=== PATIENT | female | born 1975 | race Caucasian/White ===

== ENCOUNTER 2022-12-05 12:21 | Outpatient (REF) | payer OTHER, MEDICARE, SELFPAY | END 2022-12-05 12:22 | disposition home or self-care (01) | LOC: LAB 12:21 | PROVIDERS: PCP Family Medicine; Visit Provider Family Medicine | DX: R30.0 Dysuria (principal) | CPT/HCPCS: 87086 ==

== ENCOUNTER 2023-02-19 08:26 | Outpatient (OUT) | payer OTHER, MEDICARE, SELFPAY ==
[2023-02-19 09:09] LABS: Estimated Average Glucose 169 mg/dL; Glycohemoglobin A1C 7.5 % (4.5-6.2)
== END 2023-02-19 08:27 | disposition home or self-care (01) ==
LOC: LAB 08:31
PROVIDERS: PCP Family Medicine
DX: E11.65 Type 2 diabetes mellitus with hyperglycemia (principal); Z79.4 Long term (current) use of insulin
CPT/HCPCS: 36415; 83036

== ENCOUNTER 2023-02-19 08:33 | Outpatient (OUT) | payer OTHER, MEDICARE, SELFPAY ==
[2023-02-19 09:29] LABS: Chol HDL Ratio 10.1; Cholesterol 242 mg/dL (<=200); HDL Cholesterol 24 mg/dL (40-60); Triglycerides 929 mg/dL (<=150); VLDL CHOLESTEROL 185.8 mg/dL
[2023-02-19 09:34] LABS: LDL Cholesterol Direct 127 mg/dL
== END 2023-02-19 08:34 | disposition home or self-care (01) ==
LOC: LAB 08:36
PROVIDERS: PCP Family Medicine; Visit Provider Internal Medicine Interventional Cardiology
DX: E11.65 Type 2 diabetes mellitus with hyperglycemia (principal); Z79.4 Long term (current) use of insulin; E78.2 Mixed hyperlipidemia
CPT/HCPCS: 36415; 80061; 83036; 83721

== ENCOUNTER 2023-02-26 19:56 | Outpatient (REF) | payer OTHER, MEDICARE, SELFPAY ==
[2023-03-03 16:07] LABS: Age Gdln ACOG Testing Note (.); HPV Aptima Negative (Negative); IGP, Aptima HPV, rfx 16/18,45 Note (.)
== END 2023-02-26 19:57 | disposition home or self-care (01) ==
LOC: LAB 19:56
PROVIDERS: PCP Family Medicine; Visit Provider Physician Assistant
DX: Z01.419 Encounter for gynecological examination (general) (routine) without abnormal findings (principal)
CPT/HCPCS: 87624; G0145

== ENCOUNTER 2023-06-22 06:30 | Outpatient (OUT) | payer OTHER, MEDICARE, SELFPAY ==
[2023-06-22 07:01] LABS: Basophils Absolute Auto 0.1 10^3/uL (0.0-0.1); Basophils Percent Auto 1.1 % (0.2-2.0); Eosinophils Absolute Auto 0.2 10^3/uL (0.0-0.7); Hematocrit 44.3 % (36.0-48.0); Immature Granulocytes Abs Auto 0.02 10^3/uL (0.00-0.03); Immature Granulocytes Pct Auto 0.3 % (0.0-0.5); Lymphocytes Absolute Auto 3.8 10^3/uL (1.2-3.8); Lymphocytes Percent Auto 47.7 % (20.5-60.0); Mean Corpuscular HGB Conc 31.6 g/dL (29.9-35.2); Mean Corpuscular Hemoglobin 29.5 pg (26.7-34.0); Mean Corpuscular Volume 93.5 fL (81.0-99.0); Mean Platelet Volume 10.6 fL (9.5-13.5); Monocytes Absolute Auto 0.9 10^3/uL (0.3-0.8); Monocytes Percent Auto 11.1 % (1.7-12.0); Neutrophils Absolute Auto 2.9 10^3/uL (1.4-6.5); Neutrophils Percent Auto 36.8 % (43.0-75.0); Platelet Count 380 10^3/uL (150-450); Red Blood Count 4.74 10^6/uL (4.20-5.40); Red Cell Distribution Width 14.4 % (11.0-15.0)
[2023-06-22 07:18] LABS: Microalbumin Urine Random <1.3 mg/dL (<=30.0)
[2023-06-22 07:20] LABS: Estimated Average Glucose 160 mg/dL; Glycohemoglobin A1C 7.2 % (4.5-6.2)
[2023-06-22 07:32] LABS: Alanine Aminotransferase 51 U/L (14-59); Albumin Globulin Ratio 1.1; Alkaline Phosphatase 58 U/L (46-116); Anion Gap 15.9; Aspartate Amino Transferase 33 U/L (15-37); BUN Creatinine Ratio 21.8; Bilirubin Total 0.3 mg/dL (0.2-1.0); Carbon Dioxide 28.7 mmol/L (21.0-32.0); Chloride 100 mmol/L (98-107); Chol HDL Ratio 6.9; Cholesterol 208 mg/dL (<=200); Estimated GFR (African America >60 (>=60); Estimated GFR (Non-African Ame >60 (>=60); Globulin 3.6 g/dL; Glucose 136 mg/dL (74-106); HDL Cholesterol 30 mg/dL (40-60); Potassium 3.6 mmol/L (3.5-5.1); Sodium 141 mmol/L (136-145); Total Protein 7.6 g/dL (6.4-8.2); Triglycerides 497 mg/dL (<=150); VLDL CHOLESTEROL 99.4 mg/dL
[2023-06-22 07:34] LABS: LDL Cholesterol Direct 114 mg/dL
== END 2023-06-22 06:31 | disposition home or self-care (01) ==
LOC: LAB 06:33
PROVIDERS: PCP Family Medicine; Visit Provider Family Medicine
DX: E78.2 Mixed hyperlipidemia (principal); I25.118 Atherosclerotic heart disease of native coronary artery with other forms of angina pectoris; E11.65 Type 2 diabetes mellitus with hyperglycemia; Z79.4 Long term (current) use of insulin
CPT/HCPCS: 36415; 80053; 80061; 82043; 83036; 83721; 85025

== ENCOUNTER 2023-12-10 07:30 | Outpatient (OUT) | payer OTHER, MEDICARE, SELFPAY ==
--- OUTSIDE RECORDS SUMMARY | 2023-12-10 07:39 | XMS_ITS | CCD ---
Author Organization [facility] Care Team Providers Care Director Of Enterprise Strategy Name Role Phone CHONG CARRERO Admitting Unavailable LAZARAEREJOSH Suarez Primary Care Unavailable SELF, REFERRED Referring Unavailable GEE ORELLANA Attending Unavailable EBRAHEIM, BENJAMIN Admitting Unavailable EBRAHEIM, BENJAMIN Attending Unavailable JOSH OCHOA Referring Unavailable NADEREJOSH Suarez Primary Care Unavailable EBRAHEIM, BENJAMIN Admitting Unavailable EBRAHEIM, BENJAMIN Attending Unavailable JOSH OCHOA Referring Unavailable LAZARAEREJOSH Suarez Primary Care Unavailable EBRAHEIM, BENJAMIN Admitting Unavailable EBRAHEIM, BENJAMIN Attending Unavailable JOSH OCHOA Referring Unavailable LAZARAEREJOSH Suarez Primary Care Unavailable Josh Ochoa Primary Care Provider Eliezer MARTINEZ, Deja Unavailable [phone] Chanel Workman Unavailable Vianney Collins Unavailable Josh Ochoa Primary Care Provider Eliezer MARTINEZ Deja Unavailable MD Josh Ochoa Primary Care Provider MD Marie Elias Attending Provider Josh Ochoa Primary Care Provider Eliezer MARTINEZ, Deja Unavailable MD Josh Ochoa Primary Care Provider MD Lee Chowdary Attending Provider DR JOSH OCHOA Attending Unavailable GABRIELA, DR JOSH Oznua Admitting Unavailable LAZARAEREErick, DR JOSH zOuna Consulting Unavailable LAZARAEREErick, DR JOSH Ozuna Primary Care Unavailable JENNIFER, DR BARTOLOME Suarez Consulting Unavailable NADERER, DR JOSH Ozuna Primary Care Unavailable ADIA ., JACQUELYN Attending Unavailable ADIA ., JACQUELYN Admitting Unavailable ADIA ., JACQUELYN Consulting Unavailable NADERER, DR JOSH Ozuna Consulting Unavailable NADERER, DR JOSH Ozuna Primary Care Unavailable NADERER, DR JOSH Ozuna Attending Unavailable NADERER, DR JOSH Ozuna Admitting Unavailable NATHANIEL, MARIE Consulting Unavailable NATHANIEL, MARIE Attending Unavailable NATHANIEL, MARIE Admitting Unavailable NADERER, DR JOSH Ozuna Primary Care Unavailable JESSICA BOSTON Consulting Unavailable MARKER ., DR WEAVER Consulting Unavailable MARKER ., DR WEAVER Attending Unavailable MARKER ., DR WEAVER Admitting Unavailable NADERER, DR JOSH Ozuna Primary Care Unavailable CORKY PINTO Consulting Unavailable NADERER, DR JOSH Ozuna Primary Care Unavailable IDRIS, NAE Attending Unavailable IDRIS, NAE Admitting Unavailable WEST, DR AVINASH Milligan Consulting Unavailable NADERER, DR JOSH Ozuna Primary Care Unavailable NADERER, DR JOSH Ozuna Attending Unavailable NADERER, DR JOSH Ozuna Admitting Unavailable ZIEBER, DR BARTOLOME Suarez Consulting Unavailable NADERER, DR JOSH Ozuna Consulting Unavailable NADERER, DR JOSH Ozuna Consulting Unavailable NADERER, DR JOSH Ozuna Primary Care Unavailable NADERER, DR JOSH Ozuna Attending Unavailable NADERER, DR JOSH Ozuna Admitting Unavailable WEST, DR AVINASH Milligan Consulting Unavailable NADERER, DR JOSH Ozuna Primary Care Unavailable NADERER, DR JOSH Ozuna Attending Unavailable NADERER, DR JOSH Ozuna Admitting Unavailable NADERER, DR JOSH Ozuna Consulting Unavailable Nathaniel, Marie T Admitting Unavailable Naderer, Josh Primary Care Unavailable Nathaniel, Marie T Attending Unavailable Epi, Lee Admitting Unavailable Lee Chowdary Attending Unavailable Nadereerick, Josh Primary Care Unavailable Lee Chowdary Attending Unavailable Chowdary, Lee Admitting Unavailable Naderer, Josh Primary Care Unavailable Naderer Josh WARD Primary Care Provider JOSE FRANCISCO MARR Attending Unavailable IDRIS, NAE Attending Unavailable JOSE FRANCISCO MARR. Attending Unavailable IDRISNAE Mejia Referring Unavailable JULIANA SHANE Attending Unavailable IDRIS, NAE Attending Unavailable JOSE FRANCISCO MARR Attending Unavailable JOSE FRANCISCO MARR Attending Unavailable JULIANA SHANE Attending Unavailable Elmo Solano Attending Unavailable GABRIELA, JOSH Ozuna Primary Care Unavailable Elmo Solano Admitting Unavailable Elmo Solano Attending Unavailable Solano, Elmo L Admitting Unavailable NADERER, JOSH A Primary Care Unavailable Solano, Elmo L Attending Unavailable Solano, Elmo L Admitting Unavailable NADERER, JOSH A Primary Care Unavailable Solano, Elmo L Attending Unavailable Solano, Elmo L Admitting Unavailable NADERER, JOSH A Primary Care Unavailable Naderer, Josh A Primary Care Provider CARROLLR, JOSH A Primary Care Unavailable FROIMSON, KINGA Referring Unavailable FROIMSON, KINGA Attending Unavailable FROIMSON, KINGA Referring Unavailable FROIMSON, KINGA Attending Unavailable NADERER, JOSH A Primary Care Unavailable GERTRUDE CONNOLLY Attending Unavailab le JACKSON, DC L Attending Unavailable ARCE, OLU Bradley Attending Unavailable JACKSON, DC L Attending Unavailable NADERER, JOSH Attending Unavailable JACKSON, DC L Attending Unavailable GRAZIANI, SARA M Attending Unavailab le GRAZIANI, SARA M Attending Unavailab le NADERER, JOSH Attending Unavailable JACKSON, DC L Attending Unavailable ARCE, OLU W Attending Unavailable JACKSON, DC L Attending Unavailable GRAZIANI, SARA M Attending Unavailab le JACKSON, DC L Attending Unavailable JACKSON, DC L Attending Unavailable JACKSON, DC L Attending Unavailable ARCE, OLU W Attending Unavailable JACKSON, DC L Attending Unavailable GRAZIANI, SARA M Attending Unavailab le JACKSON, DC L Attending Unavailable Allergies Allergy Classification Reported Allergen(s) Allergy Type Date of Onset Reaction(s) Facility (9 sources) Codeine; 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: [CODEINE] Drug Allergy 04-24-20 [facility] Repository (4 sources) Erythromycin; 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: [ERYTHROMYCIN] Drug Allergy 04-24-20 05 [facility] Repository (8 sources) Penicillins; 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: [PENICILLINS] Drug allergy (disorder) 04-24-20 05 [facility] Repository (8 sources) Sulfonamides (Antibiotic); 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: [SULFA (SULFONAMIDE ANTIBIOTICS)] Drug allergy (disorder) 04-24-20 05 [facility] Repository (17 sources) Ciprofloxacin; 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: [CIPROFLOXACIN] Drug Allergy 01-18-20 17 Unknown, [facility] (16 sources) Codeine Drug Allergy 04-24-20 05 Hives, Unknown [facility] (16 sources) Desonide; 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: [DESONIDE] Drug Allergy 11-25-19 13 Other: See Comments [facility] Work Phone: (16 sources) Erythromycin Drug Allergy 04-24-20 05 Hives, Rash [facility] (20 sources) Latex; 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: [latex] Propensity to adverse reactions 04-24-20 05 Itching, Anaphylaxis [facility] (10 sources) Penicillin V; 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: [PENICILLIN V] Drug Allergy 04-24-20 05 Hives [facility] (14 sources) Sulfonamides (Antibiotic) Propensity to adverse reactions 04-24-20 05 Hives, Unknown, Rash [facility] (2 sources) penicillAMINE Drug Allergy shortness of breath [facility] [employer] Other (2 sources) Sulfamethoxazole / Trimethoprim Drug Allergy [facility] [employer] [employer] Other (2 sources) Sulfonamides (Antibiotic) Propensity to adverse reactions Unknown [employer] [employer] Other (4 sources) Adhesive Tape; 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: [adhesive tape] Allergy to substance 04-24-20 19 Redness of Skin [facility] (12 sources) erythromycin base; 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: [Erythromycin Base] Allergy to substance 11-25-19 13 [facility] (1 source) Desonide Drug Allergy 11-15-[address] [facility] Repository (2 sources) Cod liver oil; 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: [cod liver oil] Allergy to substance 09-07-19 23 [facility] (2 sources) Zinc Oxide; 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: [zinc oxide] Drug Allergy 09-07-19 23 [facility] (1 source) Codeine Drug Allergy 09-07-19 [facility] Repository (1 source) Penicillins Drug allergy (disorder) 09-07-19 [facility] Repository (1 source) Sulfonamides (Antibiotic) Drug allergy (disorder) 09-07-19 [facility] Repository (5 sources) Desonide Allergy to substance 11-25-19 13 Unknown [facility] Work Phone: (5 sources) Penicillins Drug Allergy 03-04-20 18 Rash [facility] (5 sources) Wound Dressing Adhesive Drug Allergy 04-24-20 Unknown [facility] (1 source) Adhesive agent; 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: [ADHESIVE] Propensity to adverse reactions to drug (disorder) 04-24-20 [facility] Repository (1 source) sulfa drug; 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: [sulfa drug] Propensity to adverse reactions to drug (disorder) [facility] Repository Medications Current Medications Medication Drug Class(es) Dates Sig (Normalized) Sig (Original) acetaminophen 300 mg / butalbital 50 mg / caffeine 40 mg oral capsule (15 sources) Barbiturate, Central Nervous System Stimulant, Methylxanthine Start: 06-06-2023 End: 07-06-2023 take 1 capsule by mouth every eight hours for headache butalbital-acetam inophen-caffeine (Fioricet) 50-300-40 MG capsule Indications: Migraine without aura and without status migrainosus, not intractable (CMS/HCC) Take 1 capsule by mouth every 8 (eight) hours if needed for headaches 30 capsule 1 06/06/2023 07/06/2023 Active Start: 08-27-2022 take 1 capsule by mo uth every six hours Cpbfjfdwzp-Udhezykgpbopb-Prjh Active 1 C AP PO Q6H August 27, 2022 12:00am Start: 08-29-2021 take 1 tablet by nicky th every six hours as needed acetaminophen 325 mg-caffeine 40 mg-butalbital 50 mg (FIORICET) per tablet Take 1 tablet by mouth every 6 hours as needed. 0 08/29/2021 Active Comment on above: Take 1 tablet by nicky th every 6 hours as needed. albuterol 0.83 mg/ml inhalation solution (12 sources) beta2-Adrenergic Agonist albuter ol (2.5 MG/3ML) 0.083% nebulizer solution Take 2.5 mg by nebulization every 4 (four) hours if needed. 0 Active take 2 puff(s) by in halation every four hours albuterol HFA 90 mcg/act inhaler Inhale 2 puffs every 4 (four) hours if needed. 0 Active Albuterol Sulfat e (2.5 MG/3ML) 0.083% 3 ml Inhalation Three times a day Active ALPRAZolam 1 mg oral tablet (19 sources) Benzodiazepine Start: 05-14-2023 End: 07-21-2023 ALPRAZolam (Xanax) 1 MG tablet Indications: Generalized anxiety disorder (CMS/HCC) Take 1 tablet (1 mg) by mouth Daily as needed for anxiety (1 as needed) 30 tablet 1 06/21/2023 07/21/2023 Active Start: 09-06-2022 take 0.5 mg by mouth twice zhao ly Alprazolam Active 0.5 MG PO Twice daily September 06, 2022 12:00am Start: 04-27-2019 take 1 tablet by nicky th once daily Alprazolam (Xanax) 1 mg Tablet Active 1 MG PO Daily April 27, 2019 1:00am Start: 04-27-2019 take 1 tablet by nicky th four times daily Alprazolam (Xanax) 1 mg Tablet Active 1 MG PO Four times daily April 27, 2019 12:00am Start: 07-18-2016 ALPRAZolam (XA NAX) 0.5 mg tablet 1 mg. 0 07/18/2016 Active Comment on above: 1 mg. amoxicillin 875 mg / clavulanate 125 mg oral tablet (1 source) Penicillin-class Antibacterial Start: 01-01-20 take 1 tablet by mouth every twelve hours Amoxicillin-Pot Clavulanate 875-125 MG 1 tablet Orally every 12 hrs for 10 day(s) Dec, Active ARIPiprazole 15 mg oral tablet (18 sources) Atypical Antipsychotic Start: 06-04-19 End: 09-02-19 24 take 1 tablet by mouth in the morning ARIPiprazole (Abilify) 15 MG tablet Indications: Major depressive disorder, single episode, severe without psychotic features (HCC) (CMS/HCC) Take 1 tablet (15 mg) by mouth in the morning. 30 tablet 2 06/04/2023 09/02/2023 Active Start: 08-27-2022 take 1 tablet by nicky th once daily Aripiprazole (Abilify) 10 mg Tablet Active 10 MG PO Daily August 27, 2022 12:00am Start: 11-21-2020 take 1 tablet by nicky th once daily ARIPiprazole (ABILIFY) 5 mg tablet Take 5 mg by mouth once daily. 0 11/21/2020 Active take 1 tablet by nicky th every twenty-four hours Abilify 10 MG 1 tablet Orally Once a day Active Comment on above: Take 5 mg by mouth o nce daily. ascorbic acid 1000 mg oral tablet (20 sources) Vitamin C Start: 04-27-2019 End: 10-10-2022 Ascorbic Acid 1,000 mg tablet Ascorbic Acid (Vitamin C) Active 1 GM Oral Daily April 27, 2019 6:43am 0 04/27/2019 Active Comment on above: Take 1,000 mg by nicky th. Ascorbic Acid (Vitam in C) Active 1 GM Oral Daily April 27, 2019 6:43am Aspir-81 81 MG (2 sources) take 1 tablet by mouth once daily Aspir-81 81 MG 1 tablet Orally Once a day for 30 day(s) Active aspirin 81 mg chewable tablet (15 sources) Platelet Aggregation Inhibitor, Nonsteroidal Anti-inflammatory Drug Start: 07-27-2022 aspirin 81 mg chewable tablet CHEW 1 TABLET EVERY MORNING 0 07/27/2022 Active take 1 tablet by mouth once aspi rin 81 MG EC tablet Take 81 mg by mouth 1 (one) time. 0 Active End: 07-17-2022 aspirin, enteric coated (ASP IRIN, ENTERIC COATED) 81 mg EC tablet Take 81 mg by mouth. 0 07/17/2022 Discontinued Comment on above: Take 81 mg by mouth. CHEW 1 TABLET EVERY MORNING Atogepant (2 sources) Start: 08-28-19 take 1 tablet by mouth once daily Atogepant (Qulipta) 60 mg tablet Active 60 MG PO Daily August 27, 2022 12:00am Atogepant (Qulipta) 60 MG tablet (5 sources) Start: 04-01-20 End: 03-31-20 take 1 tablet by mouth in the morning Atogepant (Qulipta) 60 MG tablet Indications: Intractable migraine without aura and without status migrainosus (CMS/HCC) Take 60 mg by mouth in the morning. 30 tablet 11 04/01/2023 03/31/2024 Active atomoxetine 40 mg oral capsule (4 sources) Norepinephrine Reuptake Inhibitor Start: 06-20-19 take 1 capsule by mouth in the morning atomoxetine (Strattera) 40 MG capsule Indications: ADD (attention deficit disorder) without hyperactivity Take 1 capsule (40 mg) by mouth in the morning. Swallow capsule whole; do not open. If opened accidentally, do not touch eyes; wash hands immediately (product is an eye irritant).. 30 capsule 2 06/20/2023 Active atorvastatin 80 mg oral tablet (19 sources) HMG-CoA Reductase Inhibitor Start: 03-06-20 End: 06-20-19 24 take 1 tablet by mouth in the morning atorvastatin (Lipitor) 80 MG tablet Indications: Mixed hyperlipidemia (CMS/HCC) Take 1 tablet (80 mg) by mouth in the morning. 90 tablet 3 06/20/2023 Active Start: 04-27-2019 take 2 tablets by mo ut once daily at bedtime Atorvastatin (Lipitor) 40 mg Tablet Active 80 MG PO Daily at bedtime April 27, 2019 1:00am Start: 04-27-2019 take 1 tablet by nicky once daily at bedtime Atorvastatin (Lipitor) 40 mg Tablet Active 40 MG PO Daily at bedtime April 27, 2019 12:00am take 4 tablets by mo [facility] once daily atorvastatin (LIPITOR) 20 mg tablet Take 80 mg by mouth once daily. 0 Active take 1 tablet by nicky once daily atorvastatin (LIPITOR) 20 mg tablet Take 20 mg by mouth once daily. 0 Active Comment on above: Take 20 mg by mouth once daily. Take 80 mg by mouth once daily. 5 ml bupivacaine hydrochloride 2.5 mg/ml injection (5 sources) Amide Local Anesthetic Start: 02-26-20 bupivacaine PF (Marcaine) 0.25 % injection 5 mg calcium carbonate 1500 mg oral tablet (9 sources) calcium carbonat e (CALTRATE) 600 mg calcium (1,500 mg) tab Take 600 mg by mouth. 0 Active Comment on above: Take 600 mg by mouth . calcium carbonate 1500 mg / cholecalciferol 800 unt chewable tablet (3 sources) Vitamin D Start: 04-27-20 19 take 1 tablet by mouth twice daily Calcium Carbonate-Vitamin D3 (Caltrate 600 Plus D) 600 mg (1,500 mg)-800 unit Tablet,Chewable Active 1 TAB PO Twice daily April 27, 2019 1:00am Calcium Carbonate-Vit D-Min (Caltrate 600+D Plus Minerals) 600-800 MG-UNIT chewable tablet (5 sources) Calcium Carbonat e-Vit D-Min (Caltrate 600+D Plus Minerals) 600-800 MG-UNIT chewable tablet Chew. 0 Active Caltrate 600+D 600-400 MG-UNIT (2 sources) take 1 tablet by mouth twice daily Caltrate 600+D 600-400 MG-UNIT 1 tablet Orally bid Active cholecalciferol 0.05 mg oral capsule (16 sources) Vitamin D Start: 08-28-19 take 1 capsule by mouth once daily Cholecalciferol (Vitamin D3) (Vitamin D3) 50 mcg (2,000 unit) Capsule Active 2000 UNIT PO Daily August 27, 2022 12:00am Start: 10-12-2019 take 1 tablet by nicky th once daily cholecalciferol (VITAMIN D3) 50 mcg (2,000 unit) tablet Take 1 tablet by mouth once daily. 0 10/12/2019 Active Comment on above: Take 1 tablet by nicky th once daily. clopidogrel 75 mg oral tablet (11 sources) P2Y12 Platelet Inhibitor Start: 09-20-2022 End: 11-19-2023 clopidogrel (PLAVIX) 75 mg tablet Start: 08-27-2022 take 75 mg by mouth once daily Clopidogrel Active 75 MG PO Daily August 27, 2022 12:00am Continuous Blood Gluc Sensor (Dexcom G6 Sensor) misc (5 sources) Start: 04-19-2023 Continuous Blo od Gluc Sensor (Dexcom G6 Sensor) misc Indications: Type 2 diabetes mellitus with hyperglycemia, with long-term current use of insulin ([facility]) Use as directed 2 each 11 04/19/2023 Active Continuous Blood Gluc Transmit (Dexcom G6 transmitter) misc (5 sources) Start: 05-15-2023 Continuous Blo od Gluc Transmit (Dexcom G6 transmitter) misc USE DIRECTED FOR 90 DAYS 0 05/15/2023 Active cyclobenzaprine hydrochloride 5 mg oral tablet (11 sources) Muscle Relaxant Start: 10-03-2022 cyclobenzaprin e (FLEXERIL) 5 mg tablet Start: 08-27-2022 take 5 mg by mouth e very eight hours Cyclobenzaprine Active 5 MG PO Q8H August 27, 2022 12:00am take 1 tablet by nicky th three times daily as needed cyclobenzaprine (Flexeril) 10 MG tablet Take 10 mg by mouth 3 (three) times a day as needed. 0 Active dapagliflozin 10 mg oral tablet (9 sources) Sodium-Glucose Cotransporter 2 Inhibitor Start: 10-05-2022 End: 06-20-2023 FARXIGA 10 mg tablet Start: 08-27-2022 take 1 tablet by nicky th once daily Dapagliflozin (Farxiga) 10 mg tablet Active 10 MG PO Daily August 27, 2022 12:00am DHEA 1MG PER ML (2 sources) DHEA 1MG PER ML INJECTION Externally PRN Active 1 ml dihydroergotamine mesylate 1 mg/ml injection (11 sources) Ergotamine Derivative Start: 2022 inject 1 mg by intramuscular injection every eight hours Dihydroergotamine Active 1 MG IM Q8H August 27, 2022 12:00am occ. migraines Start: 04-24-2005 inject 1 mg by subcu taneous injection every eight hours as needed DIHYDROERGOTAMINE 1 MG/ML INJECTION Indications: Other general symptoms(780.99) Inject 1mg SQ every 8 hours as needed for migraine 10 6 04/24/2005 Active Comment on above: Inject 1mg SQ every 8 hours as needed for migraine doxycycline monohydrate 100 mg oral capsule (1 source) Tetracycline-class Drug Start: 12-09-2021 take 1 capsule by mouth every twelve hours Doxycycline Monohydrate 100 MG 1 capsule Orally every 12 hrs for 10 days Nov, Active estradiol 1 mg oral tablet (11 sources) Estrogen Start: 02-26-2023 End: 02-26-2024 take 2 tablets by mouth every week estradiol (Estrace) 1 MG tablet Indications: Hormone imbalance Take 2 tablets (2 mg) by mouth 1 (one) time per week. 8 tablet 11 02/26/2023 02/26/2024 Active Start: 08-27-2022 take 1 mg by mouth t wo times weekly Estradiol Active 1 MG PO Twice a Week August 27, 2022 12:00am saturday and saturday Start: 08-07-2022 take 1 tablet by nicky th once daily, then take 1 tablet by mouth two times weekly estradiol (ESTRACE) 1 mg tablet TAKE 1 TABLET BY MOUTH DAILY FOR 14 DAYS then TAKE 1 TABLET BY MOUTH twice a week 0 08/07/2022 Active Comment on above: TAKE 1 TABLET BY NICKY TH DAILY FOR 14 DAYS then TAKE 1 TABLET BY MOUTH twice a week eszopiclone 3 mg oral tablet (6 sources) Start: 08-28-19 take 1 tablet by mouth once daily at bedtime eszopiclone (LUNESTA) 3 mg tab TAKE 1 TABLET BY MOUTH ONCE DAILY immediately before bedtime 0 09/05/2022 Active Comment on above: TAKE 1 TABLET BY NICKY TH ONCE DAILY immediately before bedtime EXEL SYRINGE 3 ML 25 X 5/8 (9 sources) Start: 04-24-20 EXEL SYRINGE 3 ML 25 X 5/8 Indications: Other general symptoms(780.99) use with DHE 10 6 04/24/2005 Active Comment on above: use with DHE fenofibrate 160 mg oral tablet (9 sources) Peroxisome Proliferator Receptor alpha Agonist Start: 10-06-19 23 take 1 tablet by mouth once daily fenofibrate (Triglide) 160 MG tablet Indications: Hyperlipidemia, unspecified (CMS/HCC) TAKE 1 TABLET BY MOUTH DAILY 90 tablet 3 05/29/2023 Active furosemide 40 mg oral tablet (14 sources) Loop Diuretic Start: 05-14-19 22 take 1 tablet by mouth once daily furosemide (LASIX) 40 mg tablet Take 40 mg by mouth once daily. 0 05/14/2021 Active Comment on above: Take 40 mg by mouth once daily. glipiZIDE 10 mg oral tablet (9 sources) Sulfonylurea Start: 10-06-19 23 glipiZIDE (GLUCOTROL) 10 mg tablet hydrOXYzine hydrochloride 50 mg oral tablet (20 sources) Antihistamine Start: 05-14-19 End: 08-12-19 24 take 1 tablet by mouth once daily as needed for anxiety hydrOXYzine HCl (Atarax) 50 MG tablet Indications: Generalized anxiety disorder (CMS/HCC) Take 1 tablet (50 mg) by mouth Daily as needed for anxiety (1 tablet) 30 tablet 0 05/14/2023 08/12/2023 Active Start: 04-27-2019 End: 07-17-2022 take 1 tablet by mouth every six hours as needed hydrOXYzine HCl (ATARAX) 50 mg tablet Take 50 mg by mouth four times daily as needed. 0 10/09/2019 Active Start: 04-27-2019 take 50 mg by mouth every eight hours Hydroxyzine Hcl Active 50 MG PO Q8H April 27, 2019 1:00am Start: 04-27-2019 take 50 mg by mouth once daily at bedtime Hydroxyzine Hcl Active 50 MG PO Daily at bedtime April 27, 2019 12:00am Comment on above: Take 50 mg by mouth four times daily as needed. Take 50 mg by mouth. Inclisiran Sodium 284 MG/1.5ML solution prefilled syringe (5 sources) Start: 03-01-2023 Inclisiran Sodium 284 MG/1.5ML solution prefilled syringe Inject 284 mg under the skin. 0 03/01/2023 Active Insulin Aspart U-100 (Novolog Flexpen U-100 Insulin) 100 unit/mL (3 mL) Insulin Pen (2 sources) Start: 04-27-2019 Insulin Aspart U-100 (Novolog Flexpen U-100 Insulin) 100 unit/mL (3 mL) Insulin Pen Active 0 .ROUTE .COMPLEX April 27, 2019 1:00am sliding scale 150-200: 5u; 201-250: 10u; 251-300 15u; 301-350: 20u; 351-400: 25u insulin aspart, human 100 unt/ml injectable solution (20 sources) Insulin Analog Start: 03-06-2023 NovoLOG 100 UNIT/ML solution INJECT a max DAILY dose OF 80 UNITS in insulin pump 0 03/06/2023 Active Start: 11-14-2022 NovoLOG FLEXPE N 100 UNIT/ML pen INJECT 20-30 UNITS SUBCUTANEOUSLY THREE TIMES DAILY 0 11/14/2022 Active Start: 04-27-2019 Insulin Aspart U-100 (Novolog Flexpen U-100 Insulin) 100 unit/mL (3 mL) Insulin Pen Active 0 .ROUTE .COMPLEX April 27, 2019 12:00am sliding scale insulin aspart U -100 (NOVOLOG) 100 unit/mL Inject subcutaneously. 0 Active End: 07-17-2022 insulin aspart U-100 (NOVOLO G) 100 unit/mL (3 mL) Novolog Flexpen U-100 Insulin aspart 100 unit/mL (3 mL) subcutaneous 0 07/17/2022 Discontinued NovoLOG 100 UNIT /ML Subcutaneous Active Comment on above: Novolog Flexpen U-10 0 Insulin aspart 100 unit/mL (3 mL) subcutaneous Inject subcutaneousl y. Insulin Disposable Pump (Omnipod 5 G6 Pod, Gen 5,) misc (5 sources) Start: 04-13-2023 Insulin Disposable Pump (Omnipod 5 G6 Pod, Gen 5,) misc 3 ml insulin glargine 100 unt/ml pen injector (16 sources) Insulin Analog Start: 04-27-2019 Insulin Glargine (Lantus Solostar U-100 Insulin) 100 unit/mL (3 mL) Insulin Pen Active 40 UNIT SUBCUT Twice daily April 27, 2019 1:00am Start: 04-27-2019 End: 07-17-2022 LANTUS SOLOSTAR U-100 INSULI N 100 unit/mL (3 mL) inject 35 units subqutaneously TWICE DAILY 0 10/09/2019 07/17/2022 Discontinued End: 01-02-2023 insulin glargine (LANTUS) 10 0 unit/mL injection Inject 35 Units subcutaneously. 0 01/02/2023 Discontinued Lantus SoloStar 100 UNIT/ML as directed Subcutaneous Active Comment on above: inject 35 units subq utaneously TWICE DAILY Inject 35 Units subc utaneously. insulin pump cart,auto,BT-cntr crtg (3 sources) insulin pump cart,auto,BT-cntr crtg Inject subcutaneously. Dr.Boujban Jorge Cardona 0 Active Comment on above: Inject subcutaneousl y. Dr.Boujban Jorge Cardona 24 hr isosorbide mononitrate 30 mg extended release oral tablet (5 sources) Nitrate Vasodilator Start: End: take 1 tablet by mouth in the morning, then take 1 tablet by mouth every twenty-four hours isosorbide mononitrate ER (Imdur) 30 MG 24 hr tablet Take 30 mg by mouth in the morning. 0 11/19/2022 11/19/2023 Active Kenalog 30 MG/ML (2 sources) Kenalog 30 MG/ML as directed Injection Active 1 ml ketorolac tromethamine 30 mg/ml cartridge (20 sources) Nonsteroidal Anti-inflammatory Drug, Cyclooxygenase Inhibitor Start: inject 30 mg by intramuscular injection every eight hours Ketorolac Active 30 MG IM Q8H August 27, 2022 12:00am Start: 03-13-2021 keTORolac (TOR ADOL) 30 mg/mL (1 mL) soln INJECT 1mL TWICE DAILY NEEDED 0 03/13/2021 Active Start: 04-27-2019 End: 08-27-2022 Ketorolac Discontinued 30 MG IM every 6 to 8 hours April 27, 2019 1:00am August 27, 2022 2:20pm Start: 04-24-2005 End: 07-17-2022 TORADOL 30 MG/ML INJECTION, CARTRIDGE Indications: Other general symptoms(780.99) Inject one every 8 hours as needed for headache 10 3 04/24/2005 07/17/2022 Discontinued ketorolac (Torad ol) 30 MG/ML injection INJECT 1mL TWICE DAILY NEEDED 0 Active Comment on above: Inject one every 8 h ours as needed for headache INJECT 1mL TWICE ZHAO LY NEEDED ammonium lactate 120 mg/ml topical lotion (9 sources) Start: 12-02-2018 ammonium lactate (LAC-HYDRIN) 12 % lotion ammonium lactate 12 % lotion 0 12/02/2018 Active Comment on above: ammonium lactate 12 % lotion lamoTRIgine 200 mg oral tablet (16 sources) Mood Stabilizer, Anti-epileptic Agent Start: 08-27-2022 take 200 mg by mouth once daily Lamotrigine Active 200 MG PO Daily August 27, 2022 12:00am Start: 11-21-2020 End: 06-20-2023 take 1 tablet by mouth twice daily lamoTRIgine (LAMICTAL) 150 mg tablet Take 150 mg by mouth twice daily. 0 11/21/2020 Active Comment on above: Take 150 mg by mouth twice daily. Cytzpj-Tjsjuhzc-Tlde ase (Zenpep) 40,000-126,000- 168,000 unit Capsule,Delayed Release(Dr/Ec) (2 sources) Start: 08-27-2022 take [id number] capsules by mouth three times daily Foricp-Qdwvhixc-Ffm lase (Zenpep) 40,000-126,000- 168,000 unit Capsule,Delayed Release(Dr/Ec) Active 1 CAP PO Three times daily August 27, 2022 12:00am with meals magnesium oxide 400 mg oral tablet (19 sources) Start: 10-09-2019 take 1 tablet by mouth once daily magnesium oxide (MAG-OX) 400 mg (241.3 mg magnesium) tablet Take 1 tablet by mouth once daily. 0 10/09/2019 Active Start: 04-27-2019 take 400 mg by mouth twice zhao ly Magnesium Oxide Active 400 MG PO Twice daily April 27, 2019 1:00am Comment on above: Take 1 tablet by nicky th once daily. meclizine hydrochloride 25 mg oral tablet (20 sources) Antiemetic Start: 9 End: 3 take 1 tablet by mouth every six hours as needed meclizine (ANTIVERT) 25 mg tab Take 25 mg by mouth four times daily as needed. 0 10/09/2019 Active Start: 04-27-2019 take 25 mg by mouth every six hours Meclizine Active 25 MG PO Q6H April 27, 2019 1:00am Start: 04-27-2019 take 25 mg by mouth twice austyn y Meclizine Active 25 MG PO Twice daily April 27, 2019 12:00am Comment on above: Take 25 mg by mouth four times daily as needed. Meclizine Active 25 MG Oral Twice daily April 27, 2019 6:43am metFORMIN hydrochloride 1000 mg oral tablet (19 sources) Biguanide Start: 9 take 1 tablet by mouth in the morning metFORMIN (Glucophage) 1000 MG tablet Take 1 tablet by mouth in the morning and 1 tablet before bedtime. 0 06/08/2022 Active take 1 tablet by nicky th every twelve hours metFORMIN HCl 500 MG 1 tablet with meals Orally Twice a day for 30 day(s) Active Comment on above: Take 1,000 mg by nicky th twice daily with meals. methylPREDNISolone 4 mg oral tablet (1 source) Corticosteroid Start: 2021 methylPREDNISolone 4 MG as directed Orally for daily dose take half with breakfast, half with dinner for 6 days Nov, Active metoclopramide 10 mg oral tablet (8 sources) Dopamine-2 Receptor Antagonist Start: 2018 take 1 tablet by mouth every six hours Metoclopramide Hcl (Reglan) 10 mg Tablet Active 10 MG PO Q6H April 27, 2019 1:00am 24 hr metoprolol succinate 25 mg extended release oral tablet (9 sources) beta-Adrenergic Bella Start: 2022 End: 2023 metoprolol succinate ER (TOPROL XL) 25 mg 24 hr tablet mupirocin 0.02 mg/mg topical ointment (1 source) RNA Synthetase Inhibitor Antibacterial Start: 2021 Mupirocin 2 % 1 application Externally Three times a day for 7 days Nov, Active nystatin 100 unt/mg topical powder (15 sources) Polyene Antifungal Start: 2022 nystatin (MYCOSTATIN) powder APPLY 1 application TO THE AFFECTED AREA(S) THREE TIMES DAILY 0 07/31/2022 Active End: 10-10-2022 take 5 mL by mouth four times daily nystatin (MYCOSTATIN) 100,000 unit/mL suspension nystatin 100,000 unit/mL oral suspension TAKE 5 (FIVE) ml BY MOUTH FOUR TIMES DAILY 0 10/10/2022 Discontinued Comment on above: nystatin 100,000 uni t/mL oral suspension TAKE 5 (FIVE) ml BY MOUTH FOUR TIMES DAILY APPLY 1 application TO THE AFFECTED AREA(S) THREE TIMES DAILY OTC NUTRITIONAL SUPPLEMENT (9 sources) OTC NUTRITIONAL SUPPLEMENT Patient uses medical marijuana, gummies,powder. 0 Active Comment on above: Patient uses medical marijuana, gummies,powder. pregabalin 200 mg oral capsule (20 sources) Start: 4 End: 4 take 1 capsule by mouth in the morning, then take 1 capsule by mouth in the evening, then take 1 capsule by mouth at bedtime pregabalin (Lyrica) 200 MG capsule Indications: Brachial plexus neuropathy Take 1 capsule (200 mg) by mouth in the morning and 1 capsule (200 mg) in the evening and 1 capsule (200 mg) before bedtime. 90 capsule 2 06/06/2023 07/06/2023 Active Start: 04-27-2019 take 1 capsule by mo uth three times daily Pregabalin (Lyrica) 50 mg Capsule Active 50 MG PO Three times daily April 27, 2019 1:00am End: 07-17-2022 take 4 capsules by mouth three times daily pregabalin (LYRICA) 50 mg capsule Take 200 mg by mouth three times daily. 0 07/17/2022 Discontinued take 1 capsule by mo uth every eight hours Lyrica 100 MG 1 capsule Orally TID Active Comment on above: Take 200 mg by mouth three times daily. pregabalin 200 mg ca psule TAKE 1 CAPSULE BY MOUTH THREE TIMES DAILY prochlorperazine 10 mg oral tablet (19 sources) Phenothiazine Start: 019 take 1 tablet by mouth every six hours Prochlorperazine Maleate (Compazine) 10 mg Tablet Active 10 MG PO Q6H April 27, 2019 1:00am Compazine 10 mg 1 tablet every 6 hrs prn Active Comment on above: Take 10 mg by mouth every 6 hours as needed. QULIPTA 60 mg tablet (8 sources) Start: 2 QULIPTA 60 mg tablet simvastatin 40 mg oral tablet (2 sources) HMG-CoA Reductase Inhibitor take 1 tablet by mouth every twenty-four hours Zocor 40 MG 1 tablet in the evening Orally Once a day for 30 day(s) Active thioctic acid 600 mg oral capsule (16 sources) Start: 1 take 1 capsule by mouth once daily Alpha Lipoic Acid 600 mg cap Take 1 capsule by mouth once daily. 0 11/14/2020 Active Comment on above: Take 1 capsule by [facility] daily. tiZANidine 4 mg oral tablet (20 sources) Central alpha-2 Adrenergic Agonist Start: 4 End: 3 tiZANidine (Zanaflex) 4 MG tablet Indications: Radiculopathy, cervical region TAKE 1 TABLET BY MOUTH IN THE MORNING, then TAKE 1 TABLET in the afternoon & TAKE 2 TABLETS AT BEDTIME DIRECTED 120 tablet 6 06/06/2023 Active Start: 08-27-2022 take 8 mg by mouth o nce daily at bedtime Tizanidine Active 8 MG PO Daily at bedtime August 27, 2022 12:00am tiZANidine (Jaswant flex) 2 MG tablet Take 4 mg by mouth at bedtime. 0 Active Comment on above: Take 4 mg by mouth e very 6 hours as needed. tizanidine 4 mg tabl et valACYclovir 1000 mg oral tablet (5 sources) Herpesvirus Nucleoside Analog DNA Polymerase Inhibitor, Herpes Simplex Virus Nucleoside Analog DNA Polymerase Inhibitor, Herpes Zoster Virus Nucleoside Analog DNA Polymerase Inhibitor Start: 03-31-20 23 valACYclovir (Valtrex) 1 g tablet 24 hr venlafaxine 225 mg extended release oral tablet (20 sources) Serotonin and Norepinephrine Reuptake Inhibitor Start: 06-04-19 24 End: 09-02-19 24 take 1 tablet by mouth every twenty-four hours at mealtime venlafaxine XR (Effexor XR) 225 MG 24 hr tablet Indications: Major depressive disorder, single episode, severe without psychotic features (HCC) (CMS/HCC) Take 1 tablet (225 mg) by mouth in the morning. Take with meals. 30 tablet 2 06/04/2023 09/02/2023 Active Start: 04-27-2019 End: 07-17-2022 take 1 capsule by mouth every twenty-four hours venlafaxine ER (EFFEXOR XR) 150 mg 24 hr capsule Venlafaxine Active 150 MG Oral Daily April 27, 2019 6:43am 0 04/27/2019 07/17/2022 Discontinued Start: 04-27-2019 take 1 capsule by mo uth once daily Venlafaxine (Effexor Xr) 150 mg Capsule,Extended Release 24hr Active 225 MG PO Daily April 27, 2019 1:00am take 1 capsule by mo uth once daily venlafaxine ER (EFFEXOR XR) 150 mg 24 hr capsule Take 225 mg by mouth once daily. 0 Active take 1 capsule by mo uth every twenty-four hours Effexor XR 75 MG 1 capsule with food Orally Once a day total of 225 Active Comment on above: Take 150 mg by mouth once daily. Venlafaxine Active 1 50 MG Oral Daily April 27, 2019 6:43am Take 225 mg by mouth once daily. Completed/Discontinued Medications Medication Drug Class(es) Dates Sig (Normalized) Sig (Original) acetaminophen 325 mg / oxyCODONE hydrochloride 10 mg oral tablet (5 sources) Opioid Agonist Start: 04-27-2019 End: 08-27-2022 take 1 tablet by mouth every four to six hours Oxycodone-Acetamino phen (Percocet) 10-325 mg Tablet Discontinued 1 TAB PO EVERY 4-6 HOURS April 27, 2019 1:00am August 27, 2022 2:21pm End: 07-17-2022 oxyCODONE-acetaminophen (PER COCET) 5-325 mg tablet Take by mouth. Once a week 0 07/17/2022 Discontinued Comment on above: Take by mouth. Once a week amitriptyline hydrochloride 25 mg oral tablet (13 sources) Tricyclic Antidepressant Start: 04-27-20 End: 08-28-19 take 25 mg by mouth once daily at bedtime Amitriptyline Discontinued 25 MG PO Daily at bedtime April 27, 2019 1:00am August 27, 2022 1:45pm End: 07-17-2022 take 1 tablet by mouth at bedtime Amitriptyline HCl 150 mg tablet amitriptyline 150 mg tablet TAKE 1 TABLET BY MOUTH AT BEDTIME 0 07/17/2022 Discontinued End: 07-17-2022 take 3 tablets by mouth once daily at bedtime amitriptyline (ELAVIL) 50 mg tablet Take 150 mg by mouth daily at bedtime. 0 07/17/2022 Discontinued Comment on above: Take 150 mg by mouth daily at bedtime. amitriptyline 150 mg tablet TAKE 1 TABLET BY MOUTH AT BEDTIME amylase [id number] unt / lipase [id number] unt / protease [id number] unt delayed release oral capsule (20 sources) Start: End: take 1 capsule by mouth three times daily ZENPEP 40,000-126,000- 168,000 unit cpDR Take 1 capsule by mouth three times daily. 0 09/18/2019 07/17/2022 Discontinued take 1 capsule by mo uth in the morning, then take 1 capsule by mouth in the evening, then take 1 capsule by mouth at bedtime pancrelipase, Bcs-Uzjq-Vlcv, (Zenpep) [id number] units capsule delayed-release particles capsule Take 1 capsule by mouth in the morning and 1 capsule in the evening and 1 capsule before bedtime. 0 Active Comment on above: Take 1 capsule by mo uth three times daily. Zenpep 40,000 unit-1 26,000 unit-168,000 unit capsule,delayed release TAKE 1 CAPSULE BY MOUTH THREE TIMES DAILY onabotulinumtoxina 200 unt injection (8 sources) Acetylcholine Release Inhibitor Start: 01-02-2023 End: 01-02-2023 onabotulinum toxin type A 200 Units injection (BOTOX) Start: 10-10-2022 End: 10-10-2022 onabotulinum toxin type A 20 0 Units injection (BOTOX) Start: 06-07-2021 End: 10-10-2022 onabotulinum toxin type A 20 0 Units injection (BOTOX) busPIRone hydrochloride 7.5 mg oral tablet (3 sources) Start: 04-27-2019 End: 08-27-2022 take 7.5 mg by mouth twice daily Buspirone Discontinued 7.5 MG PO Twice daily April 27, 2019 1:00am August 27, 2022 2:19pm cefTRIAXone (1 source) Cephalosporin Antibacterial Start: 12-31-2021 Ceftriaxone 500mg Dec, 500 mg citalopram 20 mg oral tablet (3 sources) Serotonin Reuptake Inhibitor Start: 04-27-2019 End: 08-27-2022 take 1 tablet by mouth once daily Citalopram (Celexa) 20 mg Tablet Discontinued 20 MG PO Daily April 27, 2019 1:00am August 27, 2022 2:20pm cyproheptadine hydrochloride 4 mg oral tablet (14 sources) Start: 08-27-2022 End: 06-20-2023 take 1 tablet by mouth in the morning cyproheptadine (Periactin) 4 MG tablet Indications: Dizziness Take 1 tablet (4 mg) by mouth in the morning and 1 tablet (4 mg) before bedtime. 30 tablet 3 02/25/2023 06/20/2023 Discontinued Comment on above: Take 4 mg by mouth t wice daily at 6AM and 9PM. diclofenac sodium 0.01 mg/mg topical gel (7 sources) Nonsteroidal Anti-inflammatory Drug Start: 09-13-2019 End: 07-17-2022 apply 2 g topically every four hours as needed diclofenac sodium (VOLTAREN) 1 % topical gel APPLY 2 grams TO THE AFFECTED AREA(S) EVERY 4 HOURS NEEDED (topically) 0 09/13/2019 07/17/2022 Discontinued Start: 04-27-2019 End: 08-27-2022 apply 2 g topically four times daily Diclofenac Sodium Discontinued 2 GM TOPICAL Four times daily April 27, 2019 1:00am August 27, 2022 2:18pm Start: 04-27-2019 apply 2 g topically four times daily Diclofenac Sodium Active 2 GM TOPICAL Four times daily April 27, 2019 12:00am Comment on above: APPLY 2 grams TO THE AFFECTED AREA(S) EVERY 4 HOURS NEEDED (topically) fluconazole 150 mg oral tablet (4 sources) Azole Antifungal End: 023 take 1 tablet by mouth once fluconazole (DIFLUCAN) 150 mg tablet fluconazole 150 mg tablet TAKE 1 TABLET BY MOUTH 1 (ONE) time dose 0 07/17/2022 Discontinued Comment on above: fluconazole 150 mg t ablet TAKE 1 TABLET BY MOUTH 1 (ONE) time dose hydroCHLOROthiazide 12.5 mg / lisinopril 10 mg oral tablet (20 sources) Thiazide Diuretic, Angiotensin Converting Enzyme Inhibitor Start: 019 take 1 tablet by mouth once daily Lisinopril-Hydrochl orothiazide Active 1 TAB PO Daily April 27, 2019 1:00am Start: 12-02-2018 End: 10-10-2022 take 10-12.5 mg by mouth once as needed lisinopril-hydrochlorothiazide (PRINZIDE,ZESTORETIC) 10-12.5 mg per tablet Take 1 tablet by mouth once daily. as needed for when pain increases 0 10/09/2019 10/10/2022 Discontinued take 1 tablet by nicky th in the morning lisinopril-hydroCHLOROthiazide 10-12.5 M G tablet Take 1 tablet by mouth in the morning. 0 Active Comment on above: Take 1 tablet by nicky th once daily. as needed for when pain increases Take 1 tablet by nicky th as needed. HYDROmorphone hydrochloride 4 mg oral tablet (6 sources) Opioid Agonist Start: End: 3 take 1 tablet by mouth every six hours Hydromorphone (Dilaudid) 4 mg Tablet Discontinued 4 MG PO Q6H April 27, 2019 1:00am August 27, 2022 2:20pm End: 04-17-2022 take 1 tablet by mouth every eight hours as needed HYDROmorphone (DILAUDID) 4 mg tablet Take 4 mg by mouth every 8 hours as needed. 0 04/17/2022 Discontinued Comment on above: Take 4 mg by mouth e very 8 hours as needed. Lidocaine (4 sources) Antiarrhythmic, Amide Local Anesthetic End: 07-17-2022 lidocaine (XYLOCAINE) 10 mg/mL (1 %) injection lidocaine HCl 10 mg/mL (1 %) injection solution inj 0 07/17/2022 Discontinued lidocaine (XYLOC TABATHA) 10 mg/mL (1 %) injection lidocaine HCl 10 mg/mL (1 %) injection solution inj 0 Active Comment on above: lidocaine HCl 10 mg/ mL (1 %) injection solution inj meloxicam 15 mg oral tablet (3 sources) Nonsteroidal Anti-inflammatory Drug Start: 04-27-20 End: 08-28-19 take 1 tablet by mouth once daily Meloxicam (Mobic) 15 mg Tablet Discontinued 15 MG PO Daily April 27, 2019 1:00am August 27, 2022 2:20pm metaxalone 800 mg oral tablet (3 sources) Start: 04-27-20 End: 08-28-19 take 1 tablet by mouth three times daily Metaxalone (Skelaxin) 800 mg Tablet Discontinued 800 MG PO Three times daily April 27, 2019 1:00am August 27, 2022 2:20pm nabumetone 500 mg oral tablet (2 sources) Nonsteroidal Anti-inflammatory Drug Start: 09-06-19 End: 01-03-20 take 1 tablet by mouth every twelve hours as needed nabumetone (RELAFEN) 500 mg tablet Take 500 mg by mouth twice daily as needed. 0 09/05/2022 01/02/2023 Discontinued Comment on above: Take 500 mg by mouth twice daily as needed. OXcarbazepine 300 mg oral tablet (3 sources) Anti-epileptic Agent Start: 04-27-20 End: 08-28-19 take 1 tablet by mouth twice daily Oxcarbazepine (Trileptal) 300 mg Tablet Discontinued 300 MG PO Twice daily April 27, 2019 1:00am August 27, 2022 2:21pm oxyCODONE hydrochloride 5 mg oral tablet (2 sources) Opioid Agonist Start: 09-21-19 End: 01-03-20 take 1 tablet by mouth once daily oxyCODONE IR (ROXICODONE) 5 mg immediate release tablet Take 5 mg by mouth once daily. 0 09/20/2022 01/02/2023 Discontinued Comment on above: Take 5 mg by mouth o nce daily. promethazine hydrochloride 25 mg oral tablet (4 sources) Phenothiazine End: 07-18-19 promethazine (PHENERGAN) 25 mg tablet promethazine 25 mg tablet 0 07/17/2022 Discontinued Comment on above: promethazine 25 mg t ablet topiramate 100 mg oral tablet (13 sources) Start: 08-02-19 End: 08-28-19 take 1 tablet by mouth three times daily Topiramate (Topamax) 100 mg Tablet Discontinued 100 MG PO Three times daily April 27, 2019 1:00am August 27, 2022 2:21pm Start: 08-01-2016 End: 07-17-2022 topiramate (TOPAMAX) 100 mg tablet Take 1/2 tab in AM and 1 tab at bedtime 0 08/01/2016 07/17/2022 Discontinued Start: 08-01-2016 topiramate (TO PAMAX) 100 mg tablet Topiramate Active 100 MG Oral Three times daily April 27, 2019 6:43am 0 08/01/2016 Active Comment on above: Take 1/2 tab in AM a nd 1 tab at bedtime Topiramate Active 10 0 MG Oral Three times daily April 27, 2019 6:43am Toradol 30 mg/ml (1 source) Start: 12-31-2021 Toradol 30 mg/ml Dec, 30 mg traZODone hydrochloride 50 mg oral tablet (3 sources) Serotonin Reuptake Inhibitor Start: 05-23-2023 End: 08-21-2023 traZODone (Desyrel) 50 MG tablet Indications: Insomnia, unspecified type Take 2 tablets (100 mg) by mouth as needed at bedtime for sleep 60 tablet 2 05/23/2023 06/20/2023 Discontinued Problems Active Problems Problem Classification Problem Date Documented Da te Episodic/Chronic Anxiety disorders (18 sources) Generalized anxiety disorder; 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: [Generalized anxiety disorder] Onset: 08-29-2022 Resolved: 06-20-2023 09-21-2022 Chronic Asthma (8 sources) Unspecified asthma, uncomplicated; 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: [Mild intermittent asthma] Onset: 04-02-2022 12-11-2022 Chronic Chronic obstructive pulmonary disease and bronchiectasis (14 sources) Asthma-chronic obstructive pulmonary disease overlap syndrome; 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: [Chronic obstructive pulmonary disease, unspecified] Onset: 04-24-2005 Resolved: 06-20-2023 04-24-2005 Chronic Coronary atherosclerosis and other heart disease (15 sources) Unstable angina; 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: [Coronary arteriosclerosis] Onset: 07-06-2022 12-11-2022 Chronic Delirium, dementia, and amnestic and other cognitive disorders (5 sources) Postconcussion syndrome; 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: [Postconcussional syndrome] Onset: 02-28-2021 12-11-2022 Chronic Diabetes mellitus with complications (20 sources) Type 2 diabetes mellitus with other specified complication; 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: [Type 2 diabetes mellitus with hyperglycemia] Onset: 11-16-2021 Resolved: 06-20-2023 Chronic Diabetes mellitus without complication (8 sources) Type 2 diabetes mellitus without complications; 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: [Diabetes mellitus] Onset: 04-02-2022 Resolved: 04-19-2023 04-19-2023 Chronic Disorders of lipid metabolism (16 sources) Mixed hyperlipidemia; 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: [Pure hypercholesterolemia , unspecified] Onset: 04-02-2022 Resolved: 06-20-2023 12-11-2022 Chronic Disorders usually diagnosed in infancy, childhood, or adolescence (6 sources) Attention deficit hyperactivity disorder, predominantly inattentive type; 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: [Other specified behavioral and emotional disorders with onset usually occurring in childhood and adolescence] Onset: 06-20-2023 06-20-2023 Chronic Essential hypertension (10 sources) Essential (primary) hypertension; 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: [Benign essential hypertension] Onset: 04-02-2022 12-11-2022 Chronic Gastrointestinal hemorrhage (3 sources) Rectal hemorrhage; 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: [Hemorrhage of anus and rectum] 04-27-2019 Episodic Mood disorders (12 sources) Severe major depression, single episode, without psychotic features; 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: [Major depressive disorder, single episode, severe without psychotic features] Onset: 08-29-2022 Resolved: 06-20-2023 09-21-2022 Chronic Nonmalignant breast conditions (4 sources) Unspecified lump in unspecified breast; 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: [UNSPECIFIED LUMP IN UNSPEC BREAST] Onset: 08-28-2022 Episodic Nonspecific chest pain (4 sources) Chest pain, unspecified; 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: [CHEST PAIN UNSPECIFIED] Onset: 06-26-2022 Episodic Other aftercare (2 sources) Long-term current use of insulin; 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: [manager long 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 care (current) use of insulin] 06-20-2023 Episodic Other endocrine disorders (1 source) Polycystic ovarian syndrome; 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: [POLYCYSTIC OVARIAN SYNDROME] Onset: 04-02-2022 Chronic Other endocrine disorders (5 sources) Polycystic ovary; 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: [Polycystic ovarian syndrome] Onset: 02-15-2009 12-11-2022 Chronic Other nervous system disorders (1 source) Complex regional pain syndrome I, unspecified; 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: [COMPLEX REGION PAIN SYND I UNS] Onset: 04-02-2022 Chronic Other nervous system disorders (5 sources) Brachial plexus disorder; 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: [Brachial plexus disorders] Onset: 12-11-2022 12-11-2022 Chronic Other nervous system disorders (7 sources) Complex regional pain syndrome type I; 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: [Complex regional pain syndrome I, unspecified] Onset: 12-11-2022 12-11-2022 Chronic Other nervous system disorders (6 sources) Chronic pain syndrome; 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: [Chronic pain syndrome] Onset: 06-27-2018 Resolved: 04-19-2023 04-19-2023 Chronic Other nervous system disorders (1 source) Chronic pain syndrome; 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: [Chronic pain syndrome] Onset: 07-06-2022 Chronic Other skin disorders (4 sources) Localized swelling, mass and lump, trunk; 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: [LOCALIZD SWELLING MASS AND LUMP TRUNK] Onset: 07-10-2022 Episodic Pancreatic disorders (not diabetes) (2 sources) Idiopathic chronic pancreatitis; 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: [Other chronic pancreatitis] Chronic Residual codes; unclassified (1 source) Family history of malignant neoplasm of breast; 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: [FAMILY HX MALIG NEOPLASM OF BREAST] Onset: 09-02-2022 Episodic Spondylosis; intervertebral disc disorders; other back problems (9 sources) Degeneration of lumbosacral intervertebral disc; 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: [Other intervertebral disc degeneration, lumbosacral region] Onset: 02-28-2021 Resolved: 06-20-2023 12-11-2022 Chronic Substance-related disorders (9 sources) Nicotine dependence, unspecified, uncomplicated; 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: [Nicotine dependence, cigarettes, uncomplicated] Onset: 11-16-2021 12-11-2022 Chronic Unclassified (2 sources) COUGH, UNSPECIFIED; 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: [COUGH, UNSPECIFIED] Onset: 11-16-2021 Unclassified (1 source) Benign lipomatous neoplasm of skin and subcutaneous tissue of trunk; 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: [Benign lipomatous neoplasm of skin and subcutaneous tissue of trunk] Onset: 09-06-2022 Unclassified (1 source) Encounter for preprocedural laboratory examination; 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: [Encounter for preprocedural laboratory examination] Onset: 08-27-2022 Viral infection (1 source) COVID-19; 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: [COVID-19] Onset: 11-16-2021 Past or Other Problems Problem Classification Problem Date Documented Da te Episodic/Chronic Abdominal pain (9 sources) Unspecified abdominal pain; 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: [Epigastric pain] Onset: 03-28-2022 Episodic Conditions associated with dizziness or vertigo (10 sources) Vertigo; 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: [Dizziness and giddiness] Onset: 08-29-2022 Resolved: 04-19-2023 12-11-2022 Episodic Coronary atherosclerosis and other heart disease (2 sources) Presence of coronary angioplasty implant and graft; 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: [Presence of coronary angioplasty implant and graft] Onset: 08-29-2022 Episodic Diabetes mellitus without complication (4 sources) Presence of insulin pump (external) (internal); 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: [Hyperglycemia, unspecified] Onset: 03-07-2023 Episodic E Codes: Adverse effects of medical drugs (2 sources) Adverse effect of glucocorticoids and synthetic analogues, initial encounter; 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: [Adverse effect of glucocorticoids and synthetic analogues, initial encounter] Onset: 03-07-2023 Episodic Fracture of upper limb (10 sources) Fracture of ulna; 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: [Unspecified fracture of shaft of unspecified ulna, initial encounter for closed fracture] Onset: 01-30-2016 Resolved: 06-20-2023 12-11-2022 Episodic Headache; including migraine (16 sources) Chronic intractable migraine without aura; 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: [Chronic migraine without aura, intractable, without status migrainosus] Onset: 04-24-2005 Resolved: 06-20-2023 Chronic Headache; including migraine (7 sources) Chronic daily headache; 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: [Chronic daily headache] Onset: 06-27-2018 Resolved: 06-20-2023 Episodic Mood disorders (5 sources) Mood disorders Onset: 03-11-2023 03-11-2023 Osteoarthritis (5 sources) Osteoarthritis; 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: [Unspecified osteoarthritis, unspecified site] Onset: 08-29-2022 Resolved: 06-20-2023 12-11-2022 Chronic Other aftercare (3 sources) manager long term care (current) use of insulin; 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: [BUTTONHOLE TACKER CURRENT USE OF INSULIN] Onset: 04-02-2022 Episodic Other aftercare (1 source) manager long term care (current) use of oral hypoglycemic drugs; 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: [BUTTONHOLE TACKER USE ORAL HYPOGLYCEMIC DX] Onset: 04-02-2022 Episodic Other aftercare (1 source) 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; 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: [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 CURRENT DRUG THERAPY] Onset: 04-02-2022 Episodic Other and unspecified benign neoplasm (5 sources) Lipoma of lower back; 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: [Benign lipomatous neoplasm of skin and subcutaneous tissue of trunk] Onset: 12-25-2022 Resolved: 06-20-2023 12-25-2022 Episodic Other complications of (5 sources) Maternal obesity complicating , childbirth and the puerperium, antepartum; 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: [Obesity complicating , unspecified trimester] Onset: 04-19-2009 Resolved: 06-20-2023 12-11-2022 Chronic Other complications of (5 sources) Tobacco use in mother complicating ; 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: [Smoking (tobacco) complicating , unspecified trimester] Onset: 02-15-2009 Resolved: 06-20-2023 12-11-2022 Episodic Other connective tissue disease (5 sources) Adhesive capsulitis of left shoulder; 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: [Adhesive capsulitis of left shoulder] Onset: 08-29-2022 Resolved: 06-20-2023 12-11-2022 Episodic Other connective tissue disease (5 sources) Enthesopathy of hip region; 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: [Other specified enthesopathies of unspecified lower limb, excluding foot] Onset: 12-11-2022 Resolved: 06-20-2023 12-11-2022 Episodic Other connective tissue disease (5 sources) Muscle pain; 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: [Myalgia, unspecified site] Onset: 12-11-2022 Resolved: 06-20-2023 12-11-2022 Episodic Other connective tissue disease (1 source) Neuropathic pain; 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: [Neuralgia and neuritis, unspecified] Onset: 08-29-2022 12-11-2022 Episodic Other connective tissue disease (5 sources) Spasm of cervical paraspinous muscle; 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: [Other muscle spasm] Onset: 12-17-2022 Resolved: 06-20-2023 04-01-2023 Episodic Other connective tissue disease (5 sources) Bilateral trochanteric bursitis; 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: [Trochanteric bursitis, right hip] Onset: 12-17-2022 12-17-2022 Episodic Other ear and sense organ disorders (2 sources) Cellulitis of left external ear Onset: 12-09-2021 Resolved: 12-31-2021 Episodic Other eye disorders (5 sources) Disorder of optic nerve; 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: [Other disorders of optic nerve, not elsewhere classified, unspecified eye] Onset: 08-29-2022 Resolved: 06-20-2023 3 Chronic Other female genital disorders (5 sources) Disorder of female genital organs; 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: [Other specified conditions associated with female genital organs and menstrual cycle] Onset: 12-11-2022 Resolved: 06-20-2023 12-11-2022 Episodic Other female genital disorders (5 sources) Vaginal dryness; 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: [Other specified noninflammatory disorders of vagina] Onset: 12-11-2022 Resolved: 06-20-2023 12-11-2022 Episodic Other gastrointestinal disorders (1 source) Constipation, unspecified; 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: [CONSTIPATION UNSPECIFIED] Onset: 04-02-2022 Episodic Other lower respiratory disease (3 sources) Other forms of dyspnea; 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: [OTHER FORMS OF DYSPNEA] Onset: 07-06-2022 Episodic Other lower respiratory disease (5 sources) Dyspnea; 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: [Shortness of breath] Onset: 04-02-2022 Resolved: 06-20-2023 12-11-2022 Episodic Other lower respiratory disease (5 sources) Dyspnea on exertion; 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: [Other forms of dyspnea] Onset: 07-06-2022 Resolved: 04-19-2023 04-19-2023 Episodic Other lower respiratory disease (2 sources) Shortness of breath; 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: [Shortness of breath] Onset: 08-29-2022 Episodic Other non-traumatic joint disorders (5 sources) Pain of left shoulder joint; 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: [Pain in left shoulder] Onset: 09-14-2020 Resolved: 06-20-2023 12-11-2022 Episodic Other skin disorders (5 sources) Mass of skin of back; 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: [Localized swelling, mass and lump, trunk] Onset: 12-25-2022 Resolved: 06-20-2023 12-25-2022 Episodic Residual codes; unclassified (1 source) Acquired absence of other specified parts of digestive tract; 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: [ACQ ABSENCE OTH PART DIGESTV TRACT] Onset: 04-02-2022 Episodic Residual codes; unclassified (5 sources) Insomnia; 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: [Insomnia, unspecified] Onset: 09-21-2022 09-21-2022 Episodic Residual codes; unclassified (5 sources) Bilateral lower limb edema; 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: [Localized edema] Onset: 07-06-2022 12-11-2022 Episodic Residual codes; unclassified (5 sources) FH: premature coronary heart disease; 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: [Family history of ischemic heart disease and other diseases of the circulatory system] Onset: 07-06-2022 Resolved: 06-20-2023 12-11-2022 Episodic Residual codes; unclassified (5 sources) Memory impairment; 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: [Other amnesia] Onset: 05-25-2020 Resolved: 06-20-2023 12-11-2022 Episodic Residual codes; unclassified (2 sources) Localized edema; 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: [Localized edema] Onset: 07-06-2022 Episodic Spondylosis; intervertebral disc disorders; other back problems (20 sources) Cervico-occipital neuralgia; 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: [Occipital neuralgia] Onset: 11-07-2016 Resolved: 06-20-2023 11-07-2016 Episodic Unclassified (1 source) COUGH, UNSPECIFIED; 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: [COUGH, UNSPECIFIED] Onset: 11-15-2021 Results Test Name Value Interpretation Reference Range Facility [facility] 10-08-2023 CNPN Telephone (NIQ) JACQUELYN ZENG ([id number]) 1975 F Date Time Provider Department 10/08/23 KINGA MENDES During your visit today, we recorded the following information about you: Tiffany Boyer 10/08/2023 2:41 PM Signed Call received for 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 APRN.CHIEF TECHNOLOGY OFFICER regarding Jacquelyn Zeng 1975. Caller: Self Patient Identified by Name and : Yes Was permission obtained from patient ? Yes Reason for Call: Botox Referral New Referral Needed ? Yes Have you contacted our registration department with you most recent insurance information ? Yes- Are you ordering through a specialty pharmacy -No Botox is through [facility] and her appointment had to be rescheduled in August. Last Office Visit: 05/17/23 with Fred Next scheduled appointment: Not scheduled. Best number to reach caller: [phone] Best time to reach caller: between 11-2:30 pm Is it OK to leave a detailed voice message? Yes Lien Blackburn 10/09/2023 2:40 PM Signed Sent message to [facility] team to follow up on status and to see if we can schedule. Allergies As of Date: 10/08/2023 Noted Allergy Reaction DESONIDE 11/24/2012 14 - Other: See Comments Comments: patient unaware but hx of TBI so she may not recall LATEX 04/24/2005 10 - Anaphylaxis 9 - Itching CIPROFLOXACIN 01/17/2017 16 - Unknown CODEINE 04/24/2005 4 - Hives ERYTHROMYCIN 04/24/2005 4 - Hives LATEX 04/24/2005 9 - Itching PENICILLIN V 04/24/2005 4 - Hives SULFA (SULFONAMIDE ANTIBIOTICS) 04/24/2005 4 - Hives Date Reviewed: 05/17/2023 Reviewed by: 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 APRN.CHIEF TECHNOLOGY OFFICER - Fully Assessed Reason for Visit: Patient Question [5197] Prescriptions as of 10/09/2023 - insulin pump cart,auto,BT-cntr crtg Inject subcutaneously. - [facility] - aspirin 81 mg chewable tablet CHEW 1 TABLET EVERY MORNING - clopidogrel (PLAVIX) 75 mg tablet - cyclobenzaprine (FLEXERIL) 5 mg tablet - FARXIGA 10 mg tablet - estradiol (ESTRACE) 1 mg tablet TAKE 1 TABLET BY MOUTH DAILY FOR 14 DAYS then TAKE 1 TABLET BY MOUTH twice a week - eszopiclone (LUNESTA) 3 mg tab TAKE 1 TABLET BY MOUTH ONCE DAILY immediately before bedtime - Fenofibrate (LOFIBRA) 160 mg tablet - glipiZIDE (GLUCOTROL) 10 mg tablet - metoprolol succinate ER (TOPROL XL) 25 mg 24 hr tablet - nystatin (MYCOSTATIN) powder APPLY 1 application TO THE AFFECTED AREA(S) THREE TIMES DAILY - QULIPTA 60 mg tablet - cyproheptadine (PERIACTIN) 4 mg tablet Take 4 mg by mouth twice daily at 6AM and 9PM. - furosemide (LASIX) 40 mg tablet Take 40 mg by mouth once daily. - Ascorbic Acid 1,000 mg tablet Ascorbic Acid (Vitamin C) Active 1 GM Oral Daily April 27, 2019 6:43am - insulin aspart U-100 (NOVOLOG) 100 unit/mL Inject subcutaneously. - keTORolac (TORADOL) 30 mg/mL (1 mL) soln INJECT 1mL TWICE DAILY NEEDED - ihuvkr-bupdnsra-afzc ase (ZENPEP) 40,000-126,000- 168,000 unit delayed release capsule Zenpep 40,000 unit-126,000 unit-168,000 unit capsule,delayed release TAKE 1 CAPSULE BY MOUTH THREE TIMES DAILY - Pregabalin (LYRICA) 200 mg capsule pregabalin 200 mg capsule TAKE 1 CAPSULE BY MOUTH THREE TIMES DAILY - tiZANidine (ZANAFLEX) 4 mg tablet Take 4 mg by mouth every 6 hours as needed. - OTC NUTRITIONAL SUPPLEMENT Patient uses medical marijuana, gummies,powder. - Alpha Lipoic Acid 600 mg cap Take 1 capsule by mouth once daily. - lamoTRIgine (LAMICTAL) 150 mg tablet Take 150 mg by mouth twice daily. - ARIPiprazole (ABILIFY) 5 mg tablet Take 5 mg by mouth once daily. - ammonium lactate (LAC-HYDRIN) 12 % lotion ammonium lactate 12 % lotion - AdRocketTOUCH ULTRA BLUE TEST STRIP test strip use test strip to test BLOOD SUGAR FOUR TIMES DAILY - calcium carbonate (CALTRATE) 600 mg calcium (1,500 mg) tab Take 600 mg by mouth. - cholecalciferol (VITAMIN D3) 50 mcg (2,000 unit) tablet Take 1 tablet by mouth once daily. - hydrOXYzine HCl (ATARAX) 50 mg tablet Take 50 mg by mouth four times daily as needed. - magnesium oxide (MAG-OX) 400 mg (241.3 mg magnesium) tablet Take 1 tablet by mouth once daily. - meclizine (ANTIVERT) 25 mg tab Take 25 mg by mouth four times daily as needed. - prochlorperazine (COMPAZINE) 10 mg tablet Take 10 mg by mouth every 6 hours as needed. - venlafaxine ER (EFFEXOR XR) 150 mg 24 hr capsule Take 225 mg by mouth once daily. - atorvastatin (LIPITOR) 20 mg tablet Take 80 mg by mouth once daily. - metFORMIN (GLUCOPHAGE) 1,000 mg tablet Take 1,000 mg by mouth twice daily with meals. - ALPRAZolam (XANAX) 0.5 mg tablet 1 mg. - DIHYDROERGOTAMINE 1 MG/ML INJECTION Inject 1mg SQ every 8 hours as needed for migraine - EXEL SYRINGE 3 ML 25 X 5/8 use with DHE Problem List As Of Date 10/08/2023 Noted Resolved Migraine without aura, without mention of intra*04/24/2005 08/01/2016 CHRON OBST ASTHMA UNSPECIFIED [J44.89] 04/24/2005 Bilate (more content not included)... Normal [facility] Employee Health Noteon 08-27 Employee Health Note Pt notified of approval for massotherapy X 1/ week X 12 weeks, C9 approval faxed [facility] (fax # [phone]) per pt request [Electronically Signed on: 08/28/2023 09:36 EDT] Ruth Cortez RN [Verified on: 08/28/2023 09:36 EDT] Ruth Cortez RN [facility] Coding Summaryon 07-29-2023 Coding Summary HTMLBase 64 UrqyznrtKIm0uGg+PGhl YWQ+WB6QVVMbN01asLWn dC5zG9GDESwSKfboTJJH DDdOTqUrlsZwCM8yeFKb ZXJu IC8+DU9zDKZdPvqujZGt r1P3oZA5I79mxr8nXPmb oTP0UBNtChMroftzc2bu hIz4XUbfTxdwKfVv LYQffR73ULI6nP67Rg50 pHFxpPDpl6batHw2GiYt KAEoBSO3fDinUDujc5Je YKDeR30fqCTvz5T7 IGNvbGxhcHNlOyBlbXB0 uP4yOXxltwwzz0cmxjpz Hnh0bc42zKTuh6F4fLF2 H5WwsyE3WXWggBDd AxvcmTWSaE0mctinn7ey qpeaXhSjKUFeSJx3NEn4 JFGvfYfmFiKkDL38MEQ4 KLAqmzCjI4EsPGCx iEjvSxU0t2W6Md7GD6QX KjfzU7NVNBFAHGjxeFK+ KW70ns41A0HiRuaaTpc6 UHWfDES5nGF2gE3k WZMeLVrof6N4dNI7D7Hy kgOpzs1wg2uvDBZsNBre J56llLMic3O9MQRfbEY7 VNDzcDhdDvGaxH39 Oyc+CCZzmVysb8BwXbpr g4mhv2hafWe7ZdkpIHKp mbYbkJruDLF2j0BjJe7n QYBrwVH8yCY3pJ4k GuHtKbY1EUqhY908ZnFq fANeQnqxG62eN6GveRT+ PGRsGnf1RYLopWakPS1g Y7RdWLMdeylqxBDk cKvhFM0qHRZypbbfVNOc uB2zICHvX9z0QdZtPnQ1 QSizK0GsZVTyztswCp89 aN9gMhAoMzN2LKmu J3MhgdR1REVlbLJaXMyw LWW4Z61zs6N9UGMuDXKt NXQ4sSI6jJ5bzUailjzw bGVmdDsgdmVydGlj JWkqTQufE511FGHvvYjo PkNvZGluZyBEYXRlOiAg MDMvMTgvMjAyNDwvdGQ+ ALOaKKK0gQqiEJEf pHCtMYzwHi3zvKpnjNmh DJ1vVOQuaeccLRKugK2u BLCcuRWoiXrhEI5aNKKp yuwbf808NsZjMLF9 MHJlgBJwQ6UsnI4zZpNv ONLkSAMjM9CijWInOCyf C264CXcxCiW3MIHcuuAn C3VpWDTxrWluVyL7 j7T1Iv1Io1FklhkhE1Dw lOCxJaVqHdwnSPu9E3My PjwvdHI+VU04CZPxCK08 ONz3PUT3yGuyUWlz HWPzG5JhmP8nWbKkUNAu ZGRkOyc+PHRhYmxlIHdp ZHRoPScxMDAlJyBzdHls DX1lWr4vOVAnTQVv rTxnlSFjOsLkt0dmBTEt IEwxMJ2zhYvsX5ClmBF5 YPLjh7k5Wv67Q56oR8Qb dXA+XWMnqLJ4qSB2 oM1rUsWcOjZ9HOodN628 KnIajNFbDmhmv2ouo6sc bVo7JeQ3XQYdywJxbMqr RYW0b9MfBt13C45g IHdpZHRoPSIxNSUiIHZh iJjlmc9dnT3eGa3+PGNv vPC5eWW6mV7dWrMyBhY7 UQufS574VyGpiVKz Xhhio8eus3aceMn1XaBs WEIpfmMhiAvlKOX8y4Pv Zm54N0EubTmlw9LkJsp6 jr38eRPmr2R8eNH9 L0IqHFXdjhafnXZcfVtu EX6rNTGfgqdfXBMukR1m DJLrO9i2CcVcVgA7QZbp R9BzxaP8ZMEbzJBi AJXlfJESeR4bpjyjk8kv npyjOqLdDAAwIAk0KBo6 LJCkjJoxItKkMDU1NiN5 XEJ0sGVscP4bxSol hcwhdG0hRqt+EVR4rIAh nALYLX7nYbsfmUH+PHRk RKP5dVktMCjyVBPktN8o RWTlI6k7XbGxOzG1 GRimA1NbrsC8TPTnxRLe VCQxmXZAaL8vwwmtb9ji hebmQtMrFXYoIKp8JYv4 LWFsaWduOiBsZWZ0 IiY4DKV4xRZrmV7kdLcj nucsgF9vVbu+QmlydGgg WKA3BCw7Q5YnTgl0DPKz gTwfAR0dhSDvVVtg Bq4sfWfghFlyTH4oMTSi qsdpu649IvTbz0hpLUGo yUIgWTurWPK8I61ht3Q7 IANlCRMiEDN6kFG0 kE0lsAhgznvidPFufRof fnBzuZofBWhjHJcpK602 OMHtrZuaNlTePDz0F1Gg Jkx8BILgeWdgYU2k nQGjGOuhSl3mrImwwQis BW1wEPKxzkfvt419TrHk o9ixMCKeyHMwNMmeYPG2 A42pu5L8WGMlBKVl WDE8tUB5wH5mpCqajisr bGVmdDsgdmVydGljYWwt GAypT603MQMujFusGzDt uPt9T1SrHxp7PQPa yJssOB8gzGDmQZbiSl1z zVndhVbpSX2uVFNexenk c107RmEwk5vyLISzrSPg YAdmVIT3W72lp3G8 IRSkJLZbIED9nBZ3xH5o bGlnbjogbGVmdDsgdmVy pHxlRWqaEEzoZ915TAZj cDsnPlBhdGllbnQg HVrmVCk0G4KxTngkbYN+ OX28DFRiUU04sIGslPQy u5jpcGt4HhCgJMOrZIP3 tBqkHPwzs0AnTPMy Y04ajSVla1D0HATsuAje bPUeBiExpPT4rR4sVUul jqygz6vwqrfnMcksq5ga bs02zL77N42cNOnl ZHRoPSIzMCUiIHZhbGln jz5xzT6fZw6+PGNvbCB3 rIW9aX8gQBZmAnT6IFll S953JmIbnCBiPhce e0ggz7eerDd6HwD0IIYn iqJrlOceOHN1j7GqTp24 I62jXHlyDQHrXAYgBHQs JBUwkEkdfw1ysR9m Ii8+XDSjhSA8oFK7zU9y ViDoMpO3TLncX722BjHv mXLwNyvdY30cW6XpvWS+ FUYePhn0RPSrlKbb GF4wwYPjKYztJh8jRCZ7 OhOvDwUbRSdbI2QjDJCi dbxeokcnzSA5UXYgUJWi cH27Jm9jbVjcKZTg wONJcE2zfqslp3gsealw PnAdBRRrTXf1ULr8SYSw mYqgJnUwICT5JnZ6JFD6 wYZmhR9ygNazhllt eN3uD3MsGQWkizqkCu95 jN2nWhRiTbV5UEmmQcs+ WE1POP8GTQHHKMojJGux dGQ+OTKnJBH7pImo XAzrWLFtrB7uZXFbA0u6 RlRiQbC5CZogB5VtXKLq pbzqSx70nF8jGnOfMbT1 DLxeI2YbxrQ1PPCq lEPrSZsbXSY7C83kb4N5 HAMeRRHaAGT4oJL2rQ8x bGlnbjogbGVmdDsgdmVy dQsrLWguVAxeE252 QKNtdZpbWaL4ZhEkTkH3 QkB7Z5XxYzw4FIBelDmz RW0qoYVeNAsrXs2vuLdv jBhiDE5nWWBjqzwn CENnvX9cUEVxkEYogAvf QO0tKSLwnlclr119VeTw VYQ2YIBsxPZqT1FleR6p KvBhYFIkIJKwQ4Te aQOaNLqsD001BAlrMgU8 FWHgmjUiK4VvRXLbvUhs DuI6p6M0Yo46MEDOIHOq czwvdGQ+PHRkIHN0 iJcgFClaMNQgnI8qKIQm S4z9HwEyAdH2RVbaW5Vx JXLokhjzCg39yR5jBfEb YsH5ZNjwP0RxbrG3 KHGkhLTyHSisJKR0I20w k5E7CSCdRRGhCQU9dKH0 mM0ehWlppphsrKHqsGgb dmVydGljYWwtYWxp S872XGUaoZxaQcAJCDHI RTwvdGQ+EDTiEML8eOuy GRxqXGSfbM1mKJQuH0o2 BmRiMeJ8RIpoO7Bm VFZisqutSm29vS3lYjDa SmD1WZmdA1JxlbK3DGOb jYTeGRoqIPY8W91xh5E9 BEScSEOiGAP9zBB7 mG9vgPokknvndOEqiMgw ktXtrLdmXTruMLmwN095 CYCiuOuwQp2RJD82CB80 U3HtRvqzgHNroRU+ PHRhYmxlIHdpZHRoPScx PXYkMnUxbGjoPK9vYk8r ZGVyLWNvbGxhcHNlOiBj i2qpIREuVOczEJ5y bSozK1QvaUF4YPIwv7a2 Ra95Z12nJ3KptCW+PGNv lDM2yHR8aR3vBlNqBoR5 MZfmQ216KaHzuXKg Czcmo3azo5afuZw5RqEs HABcvoRprIwfTBG8v4Wg Js64B91cOGidXCHpSBZd BNSiYGQymCiipr6h nZ3gEx5+BTCkxSZ0vJQ9 aU3oAiOuAgM6WVfqC607 CcDipFOgBjosV43aQ0Tv dXA+CJXlReb5WHPp rSyjPQ0ovPLxEFnnIp2x TDQ2EmYoEcGaRUmkI8Ii XAGrqkumbsupsSD3JPEq HIAvcK44Or2wjApl Gk8nSIOxJJB4RDFjlFOv B1BlwJ9pDzSkIZXoDNAn V8LhyPXsCYanR885FWrf RrO5ZKXkkwMzH1Hk FZYvbTlgEjM2q1A4Vg9U wQzewWMpXH0fSkHhRXi5 A1FkCyn5NRQiePamTG6c kKLgLCgvYg4txYau kFrvOD2iFMVoxvaok777 GrIjh3jlVFJvjYWmCDky XVG9W30rz7M4LXGrJRRo AOA9kDZ2qG8bkKnk bjogbGVmdDsgdmVydGlj IUtsBZnjN630LUVfyApl WpIGYnl6C2XbPow1NVZx vXvkKX6ncGYtPOup Df4vlTmppPmeFY0iPQOw wobbm956GrFkj6nfZWQl pZHpEMvbRXG3R11ce0Z7 ZOEfNTYoXDK4oPZ0 cN3zcJknbtepgHSjsEas huGoaYadONliBDcsQ340 JPEucApvIc0AFjv2E6Le Plv6ZIGddMvrDR9x qNZoOXukQy4tpFmcpRxb RF1gINSyuduvc797FvAb x7keAKCpsPFhDDzdCGB2 P63bs2W5KHNoCOAz KBW9uWO0kK1hxOlmwesp bGVmdDsgdmVydGljYWwt JBpqJ633JGUkhRyaEiJn eWVyOjwvdGQ+PC90 ow69J3PlMoyxHee2IHQz NZQ7eQS8pC0iRGJnKFhs c4S4sQZ0M4MpxlCohf9o r6goPNWbHPsqW14w bGF (more content not included)... Normal [facility] Office Visiton 07-29-2023 Follow-up visit [id number] Jacquelyn Zeng 1975 F Date Provider Department Center 07/29/2023 [facility] Family History Problem Relation Age of Onset Coronary artery disease Mother Heart attack Mother Cancer Mother Heart attack Father 54 Family Status - Relation Status Age at Mother Father Level of Service:42436 MO OFFICE/OUTPATIENT ESTABLISHED MOD MDM 30 MIN Normal [facility] ED Clinical Summaryon 2023 ED Clinical Summary [facility] ? Urgent Care [address] [place] [address] Clinical Summary PERSON INFORMATION Name: JACQUELYN ZENG Age: 47 Years Sex: FEMALE : 1975 MRN: Acct#: Visit Reason: Medical screening exam; [facility] F/U - HEAD, NECK, LEFT ARM INJURY Arrival: 07/24/2023 12:54:54 Discharge: 07/24/2023 13:25:00 LOS: 000 00:31 Check In: 07/24/2023 12:54:54 Checkout: 07/24/2023 13:25:00 Address: [address] [place] [id number] PCP: JOSH OCHOA PROVIDER INFORMATION Provider Role Assigned Unassigned Elmo Solano PA-C ED PA 07/24/2023 13:01:06 Dana RN, Ruth ED Nurse 07/24/2023 13:14:32 VITALS INFORMATION Vital Sign Triage Latest Temperature Tympanic Temperature Temporal Artery Pulse Rate O2 Sat 96 % 96 % Respiratory Rate Blood Pressure /84 mmHg /84 mmHg MEDICAL INFORMATION Medications Given: Allergy Information: Desonide; penicillins; Latex; sulfa drug; erythromycin; codeine; ciprofloxacin PHYSICIAN DOCUMENTATION DISCHARGE INFORMATION: Discharge Disposition: Home Discharge Location: Home PATIENT EDUCATION INFORMATION Instructions: Follow-Up: With: Address: When: Return to this practice Comments: Dec 15 at 11 a.m. DIAGNOSIS: Adhesive capsulitis of shoulder; C6 radiculopathy; Cervicogenic headache; Left knee sprain; Lumbar strain; Occipital neuralgia; Optic nerve disorder; Post concussive syndrome; Strain of left hip; Strain of right hip; Thoracic sprain Patient Understands: Yes - Patient/family/careg iver verbalizes understanding of instructions given Comment: Normal [facility] ED Patient Summaryon 024 ED Patient Summary [facility] ? Urgent Care [address] [place] [id number] PATIENT DISCHARGE INSTRUCTIONS Patient Information Name: JACQUELYN ZENG Age: 47 Years Date of : 1975 Reason For Visit: Medical screening exam; [facility] F/U - HEAD, NECK, LEFT ARM INJURY Arrival Time: 07/24/2023 12:54:54 Primary Care Physician: JOSH OCHOA Attending Physician: Elmo Solano PA-C Comment: Patient Education With: Address: When: Return to this practice Comments: Dec 15 at 11 a.m. Medication Information: The exam and treatment you received today in the [facility] Emergency Department were for an urgent problem and are not intended as complete care. It is important for you to follow up with a doctor, nurse practitioner, or physician?s periodicals library assistant for ongoing care. If your symptoms become worse or you do not improve as expected and you are unable to reach your usual health care provider, you should return to the Emergency Department, we are available 24 hours a day. For those patients who have received Radiology results, the interpretation of your X-ray as given to you by our Emergency Department physician is only a preliminary report. The Radiologist will review your films and if there is a change in the diagnosis you will be notified by phone. Please make sure you have provided a working phone number so we can reach you if necessary. In the event that you had a lab culture while you were a patient in the Emergency Department, you will be notified by phone if there is a need to change your antibiotic. Please make sure you have provided a working phone number so we can reach you if necessary. [facility] Emergency Department has provided you with a complete list of medications post discharge. Please inform your sequins slinger/provider of your visit and for further instruction on these medications. Any specific questions regarding your chronic medications and dosages should be discussed with your primary care physician(s) and/or pharmacist. Additional medications on your home medication list not specifically addressed. Please contact the ordering physician if you have questions about these medications. alpha-lipoic acid (Alpha Lipoic Acid 600 mg oral capsule) 1 cap(s) Oral (given by mouth) every day. ALPRAZolam (Xanax 1 mg oral tablet) 1 tab(s) PO QID PRN anxiety. ARIPiprazole (ARIPiprazole 20 mg oral tablet) 1 tab(s) Oral (given by mouth) every day. ascorbic acid (Vitamin C 1000 mg oral tablet) 1 tab(s) Oral (given by mouth) every day. aspirin (aspirin 81 mg oral capsule) 1 cap(s) Oral (given by mouth) every day. atogepant (Qulipta 60 mg oral tablet) 1 tab(s) Oral (given by mouth) every day. atorvastatin (Lipitor 40 mg oral tablet) 1 tab(s) Oral (given by mouth) every day. HS. calcium-vitamin D (Caltrate 600 + D oral tablet) 1 tab(s) Oral (given by mouth) 2 times a day (scheduled). cholecalciferol (Vitamin D3 2000 intl units oral tablet) 1 tab(s) Oral (given by mouth) every day. clopidogrel (clopidogrel 75 mg oral tablet) 1 tab(s) Oral (given by mouth) every day. TAKE 1 TABLET BY MOUTH EVERY MORNING. dapagliflozin (Farxiga 10 mg oral tablet) 1 tab(s) Oral (given by mouth) every day. dihydroergotamine (DHEA) 1 mg SQ PRN. estradiol (estradiol 1 mg oral tablet) 1 tab(s) Oral (given by mouth) every day. eszopiclone (Lunesta 3 mg oral tablet) 1 tab(s) Oral (given by mouth) once a day (at bedtime) as needed for insomnia. fenofibrate (fenofibrate 160 mg oral tablet) 1 tab(s) Oral (given by mouth) every day. furosemide (furosemide 40 mg oral tablet) 1 tab(s) Oral (given by mouth) every day. glipiZIDE (glipiZIDE 10 mg oral tablet) 1 tab(s) Oral (given by mouth) every day. TAKE 1 TABLET BY MOUTH DAILY. hydrochlorothiazide- lisinopril (hydrochlorothiazide -lisinopril 12.5 mg-10 mg oral tablet) 1 tab(s) Oral (given by mouth) every day. PRN. insulin aspart (NovoLOG) 4 unit(s) Subcutaneous (under the skin) 3 times a day before meals. following sliding scale. isosorbide mononitrate (isosorbide mononitrate 30 mg oral tablet, extended release) 1 tab(s) Oral (given by mouth) once a day (in the morning). ketorolac (Toradol IM) 30 Milligram Intramuscular every 6 hours. PRN migraines. magnesium oxide (magnesium oxide 400 mg oral tablet) 1 tab(s) Oral (given by mouth) every day. magnesium oxide (magnesium oxide 400 mg oral tablet) 1 tab(s) Oral (given by mouth) every day. meclizine (meclizine 25 mg oral tablet) 1 tab(s) Oral (given by mouth) 3 times a day (scheduled) as needed for dizziness. metFORMIN (metFORMIN 1000 mg oral tablet) 1 tab(s) Oral (given by mouth) 2 times a day (scheduled). metoclopramide (Reglan) 1 tab QID. metoprolol (Metoprolol Succinate ER 25 mg oral tablet, extended release) 0.5 tab(s) Oral (given by mouth) every day. TAKE 1/2 (ONE-HALF) OF A TABLET BY MOUTH IN THE MORNING DO not crush or chew. Misc Prescription (DME: [facility]) Diagnosis F07.81 (more content not included)... Normal [facility] Urgent Care Note- Provideron 07-24-2023 Urgent Care Note- Provider Patient: JACQUELYN ZENG Age: 47 years Sex: FEMALE : 1975 Associated Diagnoses: Occipital neuralgia; C6 radiculopathy; Cervicogenic headache; Post concussive syndrome; Thoracic sprain; Left knee sprain; Adhesive capsulitis of shoulder; Optic nerve disorder; Lumbar strain; Strain of right hip; Strain of left hip Author: Elmo Sloano PA-C History of Present Illness OCCUPATIONAL HEALTH FOLLOW-UP Date of injury: 01/24/16 Claim #: [id number] Employer: [employer] Mechanism of Injury: She tripped and fell on a wet floor at work and hit her head, landing on her left side. Diagnosis: Head injury (S09.90XA), Left ulnar fracture (S52.045A), Occipital Neuralgia (M54.81), Post concussive syndrome (F07.81), Cervicogenic headache (G44.89), Ulnar neuropathy (G56.22), Cervical sprain (S13.4XXA), Right hip strain (S76.011A), Left hip strain (S76.012A), Cervical C6 radiculopathy (M54.12), Left knee sprain, Left Shoulder Sprain This is a 47 year old here today in follow-up for her work related injury. Jacquelyn transferred care to us from the [facility] in September 2018. 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 Shortly after the fall she developed a severe headache. She was evaluated and found to have a head injury with a normal head CT and a fracture of the left elbow. Her head injury has been complicated by persisting vertigo, double vision, head and neck pain, and memory problems. She states initially she could not drive to work without pulling over to vomit. Starting in 2017, she was told there was no further light duty available and she has not worked since. Since that time she has continued to demonstrate poor balance with intermittent falls, and chronic neck, back and joint pains. In addition to that, she has had several falls with additional injuries that she relates to her vertigo. Related to these falls she has difficulty with raising her left shoulder above her head which makes it more difficult for her to steady herself when she feels she might fall. She ambulates with the help of a stand up walker. Things that have provided a little bit of relief in the past include vestibular therapy and vision therapy as well as massotherapy/chiropr actic care/acupuncture, and a tens unit that she typically uses 8 hours/day. On occasion, her left knee will buckle, causing her to stumble. MRI of her left shoulder was finally allowed and performed at [facility]. She was allowed an injection into her right shoulder which she found helpful for a short period of time, but then PT was denied. She states no further treatment of her left shoulder or knee has been allowed, but her left knee has been much worse as of late. She describes increased pain, popping and sensation of giving out. Last time she saw ortho they wanted to repeat the injection in her shoulder but this has been denied. She states she has not scheduled ortho follow-up with Dr. Patterson given the recent denials. Most recently she was told she would need to use her private healthcare insurance to cover additional treatment of her knee. She does seem to make some progress with weekly chiropractic visits, massotherapy, and acupuncture, and then demonstrates a huge setback when these are denied. The most recent hearing related to this went in her favor and now one visit/week is allowed, and she is paying for a second visit each week out of her own pocket. She has had MRI c-spine, but I see additional conditions were dismissed. Historically lumbar and cervical disc conditions have been disallowed, and she continues to see Dr. Arce for this outside of the claim. She continues on medical marijuana. She didn't find an occasional Oxycodone all that helpful. [facility] pain management recommended their intensive pain management program but it was denied by [facility]. She denies any saddle anesthesia. No new numbness, tingling or weakness in her lower extremities. It is obviously difficult to drive with these symptoms. Her requires FMLA to help her. She no longer can do laundry at home because it is too difficult for her to walk steps, especially carrying laundry. She uses a service dog which helps to some degree. She reports cervicogenic migraines daily. She arrives with complaint of a migraine today. She sees pain management Dr. Stack at [facility] who performs greater an lesser occipital blocks and meza her nerves (RFTC). She just had these done last month. It is usually followed up by regular Botox. She continues with difficulty with sleep. She continues with difficulty with memory recall. This makes it difficult for her to utilize the tools she learns in therapy to continue to make progress at home. She had a neuro psych eval in 2017 and then again in 2019. It demonstrated some deficits, but repeat exam showed stability. She finally feels like psychiatry has her on a good combination of medications for her anxiety and (more content not included)... Normal [facility] Urgent Care [place] 024 Urgent Care Record [facility] ? 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 Do not drive a car. ? Do not operate machinery such as power tools, lawn mowers, drills, sewing machines, or stoves ? Avoid alcoholic beverages and drugs for allergies, nerves, or sleep ? Do not make important personal or business decisions or sign any legal documents With: Address: When: Return to this practice Comments: Dec 15 at 11 a.m. Medication Information: The exam and treatment you received today in the [facility] were for an urgent problem and are not intended as complete care. It is important for you to follow up with a doctor, nurse practitioner, or physician?s periodicals library assistant for ongoing care. If your symptoms become worse or you do not improve as expected and you are unable to reach your usual health care provider, you should return to the Emergency Department, we are available 24 hours a day. For those patients who have received Radiology results, the interpretation of your X-ray as given to you by our Urgent Care physician is only a preliminary report. The Radiologist will review your films and if there is a change in the diagnosis you will be notified by phone. Please make sure you have provided a working phone number so we can reach you if necessary. In the event that you had a lab culture while you were a patient in the Urgent Care, you will be notified by phone if there is a need to change your antibiotic. Please make sure you have provided a working phone number so we can reach you if necessary. [facility] Urgent [facility] has provided you with a complete list of medications post discharge. Please inform your sequins slinger/provider of your visit and for further instruction on these medications. Any specific questions regarding your chronic medications and dosages should be discussed with your primary care physician(s) and/or pharmacist. Medications to Continue That Have Not Changed Other Medications alpha-lipoic acid (Alpha Lipoic Acid 600 mg oral capsule) 1 cap(s) Oral (given by mouth) every day. ALPRAZolam (Xanax 1 mg oral tablet) 1 tab(s) PO QID PRN anxiety. ARIPiprazole (ARIPiprazole 20 mg oral tablet) 1 tab(s) Oral (given by mouth) every day. ascorbic acid (Vitamin C 1000 mg oral tablet) 1 tab(s) Oral (given by mouth) every day. aspirin (aspirin 81 mg oral capsule) 1 cap(s) Oral (given by mouth) every day. atogepant (Qulipta 60 mg oral tablet) 1 tab(s) Oral (given by mouth) every day. atorvastatin (Lipitor 40 mg oral tablet) 1 tab(s) Oral (given by mouth) every day. HS. calcium-vitamin D (Caltrate 600 + D oral tablet) 1 tab(s) Oral (given by mouth) 2 times a day (scheduled). cholecalciferol (Vitamin D3 2000 intl units oral tablet) 1 tab(s) Oral (given by mouth) every day. clopidogrel (clopidogrel 75 mg oral tablet) 1 tab(s) Oral (given by mouth) every day. TAKE 1 TABLET BY MOUTH EVERY MORNING. dapagliflozin (Farxiga 10 mg oral tablet) 1 tab(s) Oral (given by mouth) every day. dihydroergotamine (DHEA) 1 mg SQ PRN. estradiol (estradiol 1 mg oral tablet) 1 tab(s) Oral (given by mouth) every day. eszopiclone (Lunesta 3 mg oral tablet) 1 tab(s) Oral (given by mouth) once a day (at bedtime) as needed for insomnia. fenofibrate (fenofibrate 160 mg oral tablet) 1 tab(s) Oral (given by mouth) every day. furosemide (furosemide 40 mg oral tablet) 1 tab(s) Oral (given by mouth) every day. glipiZIDE (glipiZIDE 10 mg oral tablet) 1 tab(s) Oral (given by mouth) every day. TAKE 1 TABLET BY MOUTH DAILY. hydrochlorothiazide- lisinopril (hydrochlorothiazide -lisinopril 12.5 mg-10 mg oral tablet) 1 tab(s) Oral (given by mouth) every day. PRN. insulin aspart (NovoLOG) 4 unit(s) Subcutaneous (under the skin) 3 times a day before meals. following sliding scale. isosorbide mononitrate (isosorbide mononitrate 30 mg oral tablet, extended release) 1 tab(s) Oral (given by mouth) once a day (in the morning). ketorolac (Toradol IM) 30 Milligram Intramuscular every 6 hours. PRN migraines. magnesium oxide ( (more content not included)... [facility] ALL CBC WITH AUTO DIFFon BASOPHILS ABSOLUTE AUTO 0.1 [facility] Basophils/100 WBC (Bld) 1.1 % 0.2 - 2.0 % [facility] Eosinophils/100 WBC (Bld) 3.0 % 0.9 - 7.0 % [facility] Erythrocyte distribution width (RBC) [Ratio] 14.4 % 11.0 - 15.0 % [facility] Hematocrit (Bld) [Volume fraction] 44.3 % 36.0 - 48.0 % [facility] Hemoglobin (Bld) [Mass/Vol] 14.0 g/dL 12.0 - 16.0 g/dL [facility] IMMATURE GRANULOCYTES ABS AUTO 0.02 [facility] Immature granulocytes/100 WBC (Bld) 0.3 % 0.0 - 0.5 % [facility] LYMPHOCYTES ABSOLUTE AUTO 3.8 [facility] Lymphocytes/100 WBC (Bld) 47.7 % 20.5 - 60.0 % [facility] MCH (RBC) [Entitic mass] 29.5 pg 26.7 - 34.0 pg [facility] MCHC (RBC) [Mass/Vol] 31.6 g/dL 29.9 - 35.2 g/dL [facility] MCV (RBC) [Entitic vol] 93.5 fL 81.0 - 99.0 fL [facility] MONOCYTES ABSOLUTE AUTO 0.9 High N [facility] Monocytes/100 WBC (Bld) 11.1 % 1.7 - 12.0 % [facility] NEUTROPHILS ABSOLUTE AUTO 2.9 [facility] Neutrophils/100 WBC (Bld) 36.8 % Low 43.0 - 75.0 % [facility] Platelet mean volume (Bld) [Entitic vol] 10.6 fL 9.5 - 13.5 fL [facility] TBH EO # 0.2 [facility] TB PLT [facility] RBC 4.74 [facility] WBC 8.0 [facility] MLR HEMOGLOBIN A1Con 024 Glucose [Mass/Vol] 160 mg/dL [facility] HbA1c (Bld) [Mass fraction] 7.2 % High 4.5 - 6.2 % [facility] Comment on above: ADA RECOMMENDED LIMI T 4.0 - 6.0 ADA THERAPEUTIC TARGET < 7.0 ACTION SUGGESTED > 7.0 No Panel Informationon 06-22 Interpretation and review of laboratory results Abnormal [facility] CLINISYNC [facility] TBH MICROALBUMIN, RAND URon 06-22-2023 MICROALBUMIN URINE RANDOM <1.3 NINF - 30.0 mg/dL [facility] CNOVon 05-17-2023 CNOV [facility] JACQUELYN ZENG ([id number]) 1975 F Date Time Provider Department 05/17/23 11:30 AM KINGA MENDES [facility] During your visit today, we recorded the following information about you: Pulse Blood pressure 92/minute 127/60 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 APRN.CHIEF TECHNOLOGY OFFICER 05/17/2023 12:02 PM Signed Follow-Up Onabotulinum Toxin A (BotoxTM) for Migraine Indication: Chronic Intractable Migraine Treatment #: 8 Referral Expiration: 09/17/2023 Prior to the initiation of the FIRST treatment with Onabotulinum Toxin A, the patient reported the following average headache frequency over the past 3 MONTHS: Number of moderate-severe migraine days/month: 30 (daily) Number of mild migraine days/month: 0 Number of headache free days/month: 0 (0 headache-free hours) Migraine severity: 12/20 After treatment with Onabotulinum Toxin A: Number of moderate-severe migraine days/month: 10 Number of mild migraine days/month: 20 Number of headache free days/month: 0 (0 headache-free hours) Migraine severity: 610 Patient reduction in overall migraine days: No Patient reduction in moderate-severe migraine days: Yes Patient reduction of headache hours by 100 hours or more: No Individual has obtained clinical benefit deemed significant by individual or prescriber (Y/N): Yes Patient's quality of life and ability to perform ADLs has improved (Y/N): Yes Side effects: none Wearing off: No The patient has been assessed for disorders which could contribute to breathing or swallowing difficulty, and there is no contraindication with PREEMPT Botox. There is no documented allergic reaction/hypersensit ivity to any botulinum toxin and there is no active infection at proposed injection site. HEADACHE SCORES: Headache Questions 06/08/2021 09/07/2021 ER visits since last office visit: 0 0 Hospital stays since last office visit 0 0 Limited ADLs in the last month: 26 14 Days missed from work or school in the last month: 26 - Days headache pain free in the last month: 0 7 Days per month with ALL of the following symptoms - decreased productivity, light sensitivity and nausea: 26 10 Initial improvement of headache after botox injection at last visit: Not applicable, I did not have a botox injection at my last visit Much improved PRN medication usage in the last month: 26 10 Patient impression of improvement since last visit: Very much worse Much improved HIT-6 06/08/2021 09/07/2021 HIT-6 78 (Severe impact) 65 (Severe impact) MAYNOR - 2/7 SCORES 06/08/2021 09/07/2021 MAYNOR-2 Score 1 3 MAYNOR-7 Score - 11 PHQ-9 11/07/2016 06/08/2021 09/07/2021 Score 17 15 17 BP 127/60 (BP Site: Left Arm, BP Position: Sitting, BP Cuff Size: Regular Adult) Pulse 92 Patient name: Jacquelyn Zeng : 1975 ALLERGIES Allergen Reactions Desonide Other: See Comments patient unaware but hx of TBI so she may not recall Latex Anaphylaxis, Itching Ciprofloxacin Unknown Codeine Hives Erythromycin Hives Latex Itching Penicillin V Hives Sulfa (Sulfonamide * Hives UNIVERSAL PROTOCOL / SAFETY CHECKLIST Procedure: Onabotulinum toxin A for migraine Informed Consent Consent Obtained: Written [place] Protocol A moment to CARE was completed SIGN IN Personnel directly involved with the procedure wore the appropriate PPE Special Equipment: N/A Patient/Surrogate Stated/Verified: Patient name, Date of , Relevant allergies and Intended procedure TIME OUT Intended patient and procedure match the source document(s) Consent documented and matches the intended procedure No relevant labs, photos, and/or imaging studies were applicable for review. No correct side/site applicable for marking and visibility. Medications required for procedure verified. No fire risk assessment and interventions applicable. No implant(s) inserted. SIGN OUT No specimen collected. No instruments, equipment or retained foreign bodies applicable. Post-procedure follow-up management communicated and Plan of Care Visit completed when applicable Written Consent Obtained: Written LOT #: [id number] Expiration Date: Month: 6 Year: 2025 Injection Sites Left (Units) Left (Sites) Right (Units) Right (Sites) TOTAL (Units) Mobile Sales Technician 5 1 5 1 10 Procerus Units: 5 Sites: 1 5 Frontalis 10 2 10 2 20 Temporalis optional follow the pain 20 15 4 3 20 10 4 2 65 Occipitalis optional follow the pain 15 10 3 2 15 10 3 2 50 Cervical PSP 10 2 10 2 20 Trapezius 15 3 15 3 30 Total Units used: 200 Total Units wasted: 0 Prior Therapies Duration of Use Dose Side effect Other Therapies Chiropractic Physical therapy Analgesic Hydromorphone (Dilaudid) Anti-Anxiety Buspirone (Buspar) Anti-Convulsant Gabapentin (Neurontin) Oxcarbazepine (Trileptal) Pregabalin (Lyrica) Topiramate (Topamax, Trokendi XL, Qudexy) Anti-Depressant and Anti (more content not included)... Normal [facility] Follow-Upon 05-15-2023 Follow-Up [id number] Jacquelyn Zeng 1975 F Date Provider Department Center 05/15/2023 JOSE FRANCISCO PHAM [facility] ENDOCR [facility] Family History Problem Relation Age of Onset Coronary artery disease Mother Heart attack Mother Cancer Mother Heart attack Father 54 Family Status - Relation Status Age at Mother Father Level of Service:84118 MO OFFICE/OUTPATIENT ESTABLISHED MOD MDM 30 MIN Reason for Visit and Comments: Follow-up [843117] - DM 2 Normal [facility] Coding Summaryon 04-29-2023 Coding Summary HTMLBase 64 ZwobxlncRWu5tVl+PGhl YWQ+CQ2PHSAoW76taTMr lS9wV1KSMUyKEqktXSWR ITuZGeRuaoJoLT9msKEf ZXJu IC8+CH1fRPQiYlwbpCQx q9X7iRF4F55mtj3iAWtw wLI3RMWhDjWffugxl2nk vDd7MOioDjcsFwEb XVHqkQ64VAM0oR55Jh72 pDZteXAsn5mcuUn8DwPg SNZjSMB6uTskRXfke2Fg YMKcZ63ucBQzz8Y5 IGNvbGxhcHNlOyBlbXB0 sV6mYToafpdhb0nhcoxh Xfa4tu81gIAxp8L7tYC5 V0WivlE9RGIlqHSh UumlsYHYyR2itbhgo8zx tqqbSaTtHYKoDBw7MCt1 IBNjdKuaBwDmRY33PEY7 BTYuekAyD9NhJXSe xYzzWcW8m4B7Ap9NF1MD ZxknH1UHICYIYQadrUV+ AT80kp55T7ZzSmdsPbk3 LQPfBHA0sJF7eE4g TPOxEViig8P8lQZ1G0Nt tgOrsv4ok5qfQRPbAWlq N43srLUpz0V0LZOniVM9 SOAcvVmtQzNtuG84 Oyc+RECnpPfga2YbIfwc t7pai8wopFn3HwoyWPBy hwTcfRnbEAM9m5ApXx5w IPYppVP8dLH2rJ2k AvVfGlG1MOdtX299XiYq fLIsDffsD97hY1AtzQT+ WULeTgg0CCHonQmwXS1d V6FdKJJejobgdRLt gIbtWB8rBBPtailhRKJi yK2wCLSlO9d1AjXiUfM9 OOwxF6GuKIQmebfjCy90 yN4dOcQcJnZ6SNdr Z7DincL4ENDxzQItBCsf FGF8N43ne8F5KVRnCTVa CST5cGO6wY1erGwiwcbp bGVmdDsgdmVydGlj AJzjNGscP667EEErzYlq PkNvZGluZyBEYXRlOiAg MTIvMTgvMjAyMzwvdGQ+ BAItHIL4nBxdYUNn wBIhMPrpHi5pzOkwfYnt LC8jHUTxzwjwVRZyuF2c FFXxpIYgaUjqLP1hADYg snryi909GmKmATW5 IEJnqIDrN3EmoZ9kUuQk MBIjULLnZ0NtvEAwPYmy G389HLjhHzJ1LQAxgqIp A6ZrAAZlbPjwPxB5 h9X5Hr6Bo5OjqyuzU3Qv mDSoGbAxVrnhABa9E7Nz PjwvdHI+ZI22CBZfME50 BCn0RRB6sZxsHHgx KKHqX4YivZ1fXuEpMVZf ZGRkOyc+PHRhYmxlIHdp ZHRoPScxMDAlJyBzdHls DI5sFf3rJWDfXEWa xJcxaZXoGjDrg5scJAIu AIisDH3kgWnlB6OpjEQ9 PHLxj3l1Hn90Q07cS8Jl dXA+SAZudBG6lMP8 cM0hRvRiCxT5RIeuE494 JwCjpGXcMxgwc2tki1cm sTq4WoF2QKRmeiCrpElh QXQ4x9VaNu07R26s IHdpZHRoPSIxNSUiIHZh cWxuto1ikR0pVj1+PGNv mKK6aPF4rM2iIvFrIsI8 VMojV729NtIojMJc Cilsp4ewm4mvxVl3AbJm SHZpsbUodSkdHCF8m8Zw Eu59E8EqwJglk3DwGbt0 mz53qDJgn6A9jVS3 Y5RxJSVjrfaxnCQyiEik KE0tQQAalzmaFXZlxD3b BDYcN8k7XmJkAbA4MBlo Z8MnmzF4RGMrrDWx GXZhrASGaT3vrxfhg1rg lzcdAyQgGUNjTTm5RZt3 CWMnyOuvLrNsZLP4VnB8 BDW2dCBczI1uxVub nlxbvJ1uOgq+LWI5mXIt sLNCOM2rXhxdwVJ+PHRk QUA8fMffOBmpLJYxtJ7y UZVeP9m5IxIoTpJ7 PWilK0OzlqF0GVSnoIPz YTWjiZGPoO6dxdofa6gm rdkdVrJaAZDrNPj1IRo5 LWFsaWduOiBsZWZ0 RpF5TTG5fFZrdQ6zvRsq hcjrnT0dWwo+QmlydGgg GTW1RJo4O8YdBru1AILy sCjoKK3gdEGpPMmg Nr9xoAebzAsdDO8gRSIa jolpj789YbWtb7ieUKHe mUMwQMliAMX6S90xb3V5 SPFkZCSiNMQ7oJL2 dD1fjDrdfjknqRQevIgw pyOilXowRXbrZRzqH906 MFLbcVulCcMuTBi2X6Nd Zxr3CLFssUblRY3d hAJhRWnwDl0syPdhdOgj OP1iTRTtygoov753TuMu q7ttDSFjdFHiVUgaIDR3 T82su6K9URCrWUBf RBG8eWR0eE2sfBavjqnl bGVmdDsgdmVydGljYWwt RNqdH755UVZbyWcfTrPr lEz9P6DgQaz5TZCa oZuyBR9dpNUrRYlzUw5u pDegvKjmSZ9wTONlkzsw h484UiTrk4nvEVKrmDVi NPdcTLD1T57jr0Z0 BBJvMXHyXMJ9nUV9sS6n bGlnbjogbGVmdDsgdmVy xMpaNPmsFEdmA929TNFz cDsnPlBhdGllbnQg PTcnCUl8A0XtSmunmPG+ BL15XGLzVN16oSRdhYYh v3augQo5PkEsPHVfHMQ4 sTmtPFsbr2MnWSQl I15xhTOqt3N6MQHxwWue vBRiNwXoyAZ9mP0uFBle cgmuu1oisfogSktou3jp wg33mW40H04oYJpw ZHRoPSIzMCUiIHZhbGln sh5gbE8oIm0+PGNvbCB3 zEN7cA2yUXReCyT6VTfu K708NzVbfDHjCftr g2kla8jfkSr5BiA2WOJb ytVdhLvqIGR9b0KgLa76 W11nJRhjSLUpQATwMCHl HRWabFffyk8usS4q Ii8+GBEyrXV4eXI8vJ4w DmHnYpI1FZknV771QdWi iOOgIyacP17jG7EsyKW+ PCUqJnq2JQPdwCez BB3nfGHmZKhqWa6hWSK7 QoJlEzEiZKfbJ3LfBIAp bdbtwrbdiSV5BAGeNOJi fH08Vl3sqJqtXJSa wNWXuD6okoisf9lfppfo CqCnDGGsZLm7FUl7OJVj yYxwSgAnZDD2DvZ7VIE2 uKXgiH1weDidhfnd lX1uO5WpPLOjvvrmHi53 lM8xUrTcWrP1VQzcBbb+ VC0YXJ1YAMKBPGqcIKok dGQ+RYStNZU1hFmm ZCkvHQVayA8pLIDaO2l1 RuSzHlA8QZvjM0RnOTNf vzllMa67rV3hLfQkJwX4 NWdgR7LnnrK7WLCg cNClJWnkJGE2Z21wv6P7 EUAxPABmYUE8dYN9cZ4b bGlnbjogbGVmdDsgdmVy jVkqLCkfBMaxG489 PRBltUzuIiQ0YrOnBgU1 PuY2G2FnTpn8CEGcnYpr JQ0owHHxCXzjKt6zhRja tBfbEG2oAEGheilt IIUysN9kLHJliBIjdFnf LO6eRRXcbhocv368LbXz RFN8HVTaoKRsW6NmoG3o TmWuGDOtPZVfC1Rv cLEiHUfvO646YMybJfC2 WOMyxxXbF8MiNSRkqLyz ToF6o9R7Th63WJHUHQYn czwvdGQ+PHRkIHN0 mAdwQNjpZEVoiY2sYNTi T0r7HfArKiX0PCzlB4Pt NVAnffupFj53xS3jYlIh SoL3WAekL7XdgwA2 GXWjhQGkJRboLQO7R90v i7Z0QWTbEPFrEXF5yOD5 qB7maKnyxmwifCQkeSln dmVydGljYWwtYWxp P672GQSivBpmByWQZUCM RTwvdGQ+PMAkIZO9wAcu XWfsDNYbqR0pHQDaY1b0 QjApLjI3EKejF9Kn EWIyunlpXa34fT9rOuXt NjW6VWpyO7LrvjW0SIAp hQEnBKbhQEO5Q55wt3I3 QNWjIDFjKNK2tAZ6 iF0bjUlkgewzcSWuzHup jeRttZybYKvbMKvgT562 VNRbqXraAt7LRC16XG36 D7EiUnosoTPoiPS+ PHRhYmxlIHdpZHRoPScx TNDyQhXmcYitFT3mTi8w ZGVyLWNvbGxhcHNlOiBj q2ulUDZzOMvqPN0z oScaQ1SryFJ3WOCil0l8 Xp89V77iZ0BllSS+PGNv tHE9nOV0iC4yBfTbQeI3 WLhyO048LbGalUDl Todyt4qfo0mbiVw9RkDp WKBiiaSuoPmuQCS0w3On Yi65G93mXOyySHQvMWSh JMHgCYTpvVazwq3m jO2sPh2+DGHswYT8bAF1 cG6yKmYoYfN5UBlhQ518 HbLumPWeVutbG38jV5Xj dXA+YVYrKzr6FIWi jZrlCM0veYSzNHjdSb7r IKB2OdFiYdCxQDgbC2Fv JNOkaiuqslideIV3QYJg AGDvkP32Yf8qyYyp Vy3xBQWeOMG5FFJscABn I8CxcU7rWcBwXANiMSHg N5OuzEIoMTcwF375YZjw KrH5RMWzudWyQ6Jr GJHumAmlLaB3d1D3Ze6W hFsscTLtHX8fIkIoFHv6 B9LjPmd9NCHboFjkYB0m nQAwPQhcJk8qwHtk sKfkMH4uUJFjuxaja350 FhAzk6jcFFLloKPjTXvv MWL3G84pp2F0QIYlMZSz FSZ3zMN1zL7lzSzx bjogbGVmdDsgdmVydGlj GJjjMVbzX410YQHcrKpp BhSOCnw3X3AkHyg2PAHv sMliIM8iwAAdWGyj Wv9veVqxyIuaTN6jDPFw akeny989ArCpz4guICIb rDVhZOooDLC8Y33ol0L2 PZEnXHTyDHG8xVL4 pY5myZtqugjmoSNaiDvt cnZjlRsfGHqjETokT025 EFLjwEgjAj9YTep2E4Ay Tqd5HAFtpZlnJP3w aKOwCIbgYx9qfZbjzGpp CA1bMRYhofpsk099WyOl d4ffOGHsmSFjYVyuLLN5 C84mk6R0PSIpBKYl JLU8aOC4kO1zvVzxrbmc bGVmdDsgdmVydGljYWwt ZMcfT794MLOajAheXdIu eWVyOjwvdGQ+PC90 hk99D5QaQevgAhr1HFRo AYA5nEX6zM5jUOGlZYrx g7R1uFT2I3CrogOrbo8x y4zlRRNpKWrgF38h [facility] (more content not included)... [facility] ED Clinical Summaryon 2022 ED Clinical Summary [facility] ? Urgent Care [address] [place] [id number] Clinical Summary PERSON INFORMATION Name: JACQUELYN ZENG Age: 47 Years Sex: FEMALE : 1975 MRN: Acct#: Visit Reason: Medical screening exam; [facility] F/U Arrival: 04/18/2023 09:48:24 Discharge: 04/18/2023 10:35:00 LOS: 000 00:47 Check In: 04/18/2023 09:48:24 Checkout: 04/18/2023 10:35:00 Address: [address] [place] [id number] PCP: JOSH OCHOA PROVIDER INFORMATION Provider Role Assigned Unassigned Dana RN, Ruth ED Nurse 04/18/2023 09:54:49 Elmo Solano-C ED PA 04/18/2023 09:59:05 VITALS INFORMATION Vital Sign Triage Latest Temperature Tympanic Temperature Temporal Artery Pulse Rate O2 Sat 96 % 96 % Respiratory Rate Blood Pressure /75 mmHg /75 mmHg MEDICAL INFORMATION Medications Given: Allergy Information: Desonide; penicillins; Latex; sulfa drug; erythromycin; codeine; ciprofloxacin PHYSICIAN DOCUMENTATION DISCHARGE INFORMATION: Discharge Disposition: Home Discharge Location: Home PATIENT EDUCATION INFORMATION Instructions: Follow-Up: With: Address: When: Return to this practice Comments: SatJuly 23 at 1 p.m. DIAGNOSIS: Adhesive capsulitis of shoulder; C6 radiculopathy; Cervicogenic headache; Left knee sprain; Lumbar strain; Occipital neuralgia; Optic nerve disorder; Post concussive syndrome; Strain of left hip; Strain of right hip; Thoracic sprain Patient Understands: Yes - Patient/family/careg iver verbalizes understanding of instructions given Comment: [facility] ED Patient Summaryon 023 ED Patient Summary [facility] ? Urgent Care [address] [place] [id number] PATIENT DISCHARGE INSTRUCTIONS Patient Information Name: JACQUELYN ZENG Age: 47 Years Date of : 1975 [facility]: [id number] Reason For Visit: Medical screening exam; [facility] F/U Arrival Time: 04/18/2023 09:48:24 Primary Care Physician: JOSH OCHOA Attending Physician: Elmo Solano PA-C Comment: Patient Education With: Address: When: Return to this practice Comments: SatJuly 23 at 1 p.m. Medication Information: The exam and treatment you received today in the [facility] Emergency Department were for an urgent problem and are not intended as complete care. It is important for you to follow up with a doctor, nurse practitioner, or physician?s periodicals library assistant for ongoing care. If your symptoms become worse or you do not improve as expected and you are unable to reach your usual health care provider, you should return to the Emergency Department, we are available 24 hours a day. For those patients who have received Radiology results, the interpretation of your X-ray as given to you by our Emergency Department physician is only a preliminary report. The Radiologist will review your films and if there is a change in the diagnosis you will be notified by phone. Please make sure you have provided a working phone number so we can reach you if necessary. In the event that you had a lab culture while you were a patient in the Emergency Department, you will be notified by phone if there is a need to change your antibiotic. Please make sure you have provided a working phone number so we can reach you if necessary. [facility] Emergency Department has provided you with a complete list of medications post discharge. Please inform your sequins slinger/provider of your visit and for further instruction on these medications. Any specific questions regarding your chronic medications and dosages should be discussed with your primary care physician(s) and/or pharmacist. Additional medications on your home medication list not specifically addressed. Please contact the ordering physician if you have questions about these medications. alpha-lipoic acid (Alpha Lipoic Acid 600 mg oral capsule) 1 cap(s) Oral (given by mouth) every day. ALPRAZolam (Xanax 1 mg oral tablet) 1 tab(s) PO QID PRN anxiety. ARIPiprazole (ARIPiprazole 20 mg oral tablet) 1 tab(s) Oral (given by mouth) every day. ascorbic acid (Vitamin C 1000 mg oral tablet) 1 tab(s) Oral (given by mouth) every day. aspirin (aspirin 81 mg oral capsule) 1 cap(s) Oral (given by mouth) every day. atogepant (Qulipta 60 mg oral tablet) 1 tab(s) Oral (given by mouth) every day. atorvastatin (Lipitor 40 mg oral tablet) 1 tab(s) Oral (given by mouth) every day. HS. calcium-vitamin D (Caltrate 600 + D oral tablet) 1 tab(s) Oral (given by mouth) 2 times a day. cholecalciferol (Vitamin D3 2000 intl units oral tablet) 1 tab(s) Oral (given by mouth) every day. clopidogrel (clopidogrel 75 mg oral tablet) 1 tab(s) Oral (given by mouth) every day. TAKE 1 TABLET BY MOUTH EVERY MORNING. dapagliflozin (Farxiga 10 mg oral tablet) 1 tab(s) Oral (given by mouth) every day. dihydroergotamine (DHEA) 1 mg SQ PRN. estradiol (estradiol 1 mg oral tablet) 1 tab(s) Oral (given by mouth) every day. eszopiclone (Lunesta 3 mg oral tablet) 1 tab(s) Oral (given by mouth) once a day (at bedtime) as needed for insomnia. fenofibrate (fenofibrate 160 mg oral tablet) 1 tab(s) Oral (given by mouth) every day. furosemide (furosemide 40 mg oral tablet) 1 tab(s) Oral (given by mouth) every day. glipiZIDE (glipiZIDE 10 mg oral tablet) 1 tab(s) Oral (given by mouth) every day. TAKE 1 TABLET BY MOUTH DAILY. hydrochlorothiazide- lisinopril (hydrochlorothiazide -lisinopril 12.5 mg-10 mg oral tablet) 1 tab(s) Oral (given by mouth) every day. PRN. hydrOXYzine (Atarax) 50 Milligram Oral (given by mouth) every day. HS. insulin aspart (NovoLOG) 4 unit(s) Subcutaneous (under the skin) 3 times a day before meals. following sliding scale. isosorbide mononitrate (isosorbide mononitrate 30 mg oral tablet, extended release) 1 tab(s) Oral (given by mouth) once a day (in the morning). ketorolac (Toradol IM) 30 Milligram Intramuscular every 6 hours. PRN migraines. lamoTRIgine (LaMICtal 150 mg oral tablet) 1 tab(s) Oral (given by mouth) every day. magnesium oxide (magnesium oxide 400 mg oral tablet) 1 tab(s) Oral (given by mouth) every day. magnesium oxide (magnesium oxide 400 mg oral tablet) 1 tab(s) Oral (given by mouth) every day. meclizine 25 mg PO Q6H PRN vertigo. metFORMIN (metFORMIN 1000 mg oral tablet) 1 tab(s) Oral (given by mouth) 2 times a day. metoclopramide (Reglan) 1 tab QID. metoprolol (Metoprolol Succinate ER 25 mg oral tablet, extended release) 0.5 tab(s) Oral (given by mouth) every day. TAKE 1/2 (ONE-HALF) OF A TABLET BY MOUTH IN THE MORNING DO not crush or chew. Misc Prescription (DME: Upright walker) (more content not included)... Normal [facility] Urgent Care Note- Provideron 04-18-2023 Urgent Care Note- Provider Patient: JACQUELYN ZENG Age: 47 years Sex: FEMALE : 1975 Associated Diagnoses: Occipital neuralgia; C6 radiculopathy; Cervicogenic headache; Post concussive syndrome; Thoracic sprain; Left knee sprain; Adhesive capsulitis of shoulder; Optic nerve disorder; Lumbar strain; Strain of right hip; Strain of left hip Author: Elmo Solano PA-C Basic Information Additional information: Chief Complaint from Nursing Triage Note : Chief Complaint 04/18/2023 10:07 EST Chief Complaint Medical screening exam- follow up work related injury . History of Present Illness OCCUPATIONAL HEALTH FOLLOW-UP Date of injury: 01/24/16 Claim #: [id number] Employer: [employer] Mechanism of Injury: She tripped and fell on a wet floor at work and hit her head, landing on her left side. Diagnosis: Head injury (S09.90XA), Left ulnar fracture (S52.045A), Occipital Neuralgia (M54.81), Post concussive syndrome (F07.81), Cervicogenic headache (G44.89), Ulnar neuropathy (G56.22), Cervical sprain (S13.4XXA), Right hip strain (S76.011A), Left hip strain (S76.012A), Cervical C6 radiculopathy (M54.12), Left knee sprain, Left Shoulder Sprain This is a 47 year old here today in follow-up for her work related injury. Jacquelyn transferred care to us from the [facility] in September 2018. 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 Shortly after the fall she developed a severe headache. She was evaluated and found to have a head injury with a normal head CT and a fracture of the left elbow. Her head injury has been complicated by persisting vertigo, double vision, head and neck pain, and memory problems. She states initially she could not drive to work without pulling over to vomit. Starting in 2016, she was told there was no further light duty available and she has not worked since. Since that time she has continued to demonstrate poor balance with intermittent falls, and chronic neck, back and joint pains. In addition to that, she has had several falls with additional injuries that she relates to her vertigo. Related to these falls she has difficulty with raising her left shoulder above her head which makes it more difficult for her to steady herself when she feels she might fall. She ambulates with the help of a stand up walker, which is currently broken. Things that have provided some relief in the past include vestibular therapy and vision therapy as well as massotherapy/chiropr actic care/acupuncture, and a tens unit that she uses 8 hours/day. On occasion, her left knee will buckle, causing her to stumble. MRI of her left shoulder was finally allowed and performed at [facility]. She was allowed an injection into her right shoulder which she found helpful for a short period of time, but then PT was denied. She states no further treatment of her left shoulder or knee has been allowed, but her left knee has been much worse as of late. SHe describes increased pain, popping and sensation of giving out. Last time she saw ortho they wanted to repeat the injection in her shoulder but this has been denied. She states she has not scheduled ortho follow-up with Dr. Patterson given the recent denials, as well as her need for cardiac and diabetic care outside of the claim. She was making progress with chiropractic visits, massotherapy, acupuncture and PT, but then she had a huge setback when these were all denied recently. Hearing went in her favor and now one visit/week is allowed, and she is paying for a second visit each week out of her own pocket. She has had MRI c-spine, but I see additional conditions were dismissed. Historically lumbar and cervical disc conditions have been disallowed, and she continues to see Dr. Arce for this outside of the claim. She continues on medical marijuana. She didn't find an occasional Oxycodone all that helpful. [facility] pain management recommended their intensive pain management program but it was denied by [facility]. She denies any saddle anesthesia. No new numbness, tingling or weakness in her lower extremities. It is obviously difficult to drive with these symptoms. Her requires FMLA to help her. She no longer can do laundry at home because it is too difficult for her to walk steps, especially carrying laundry. She uses a service dog which helps to some degree. She reports cervicogenic migraines daily. She sees pain management Dr. Stack at [facility] who performs greater an lesser occipital blocks and meza her nerves (RFTC). She just had these done a few weeks ago. It is usually followed up by regular Botox but that is not scheduled until next week because there was a problem with the approval. She continues with difficulty with sleep. She continues with difficulty with memory recall. This makes it difficult for her to utilize the tools she learns in therapy to continue to make progress at home. She had a neuro psych eval in 2017 and then again in 2019. It de (more content not included)... Normal [facility] Urgent Care [address] Urgent Care Record [facility] ? Urgent Care [address] [place] [address] PATIENT DISCHARGE INSTRUCTIONS Patient Information Name: JACQUELYN ZENG Age: 47 Years Date of : 1975 Reason For Visit: Medical screening exam; [facility] F/U Arrival Time: 04/18/2023 09:48:24 Primary Care Physician: JOSH OCHOA Attending Physician: Elmo Solano PA-C Comment: Visit Diagnosis: Diagnoses This Visit Adhesive capsulitis of shoulder (M75.00) C6 radiculopathy (M54.12) Cervicogenic headache (G44.86) Left knee sprain (S83.92XA) Lumbar strain (S39.012A) Medical screening exam ([id number]) Occipital neuralgia (M54.81) 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 Do not drive a car. ? Do not operate machinery such as power tools, lawn mowers, drills, sewing machines, or stoves ? Avoid alcoholic beverages and drugs for allergies, nerves, or sleep ? Do not make important personal or business decisions or sign any legal documents With: Address: When: Return to this practice Comments: SatJuly 23 at 1 p.m. Medication Information: The exam and treatment you received today in the [facility] were for an urgent problem and are not intended as complete care. It is important for you to follow up with a doctor, nurse practitioner, or physician?s periodicals library assistant for ongoing care. If your symptoms become worse or you do not improve as expected and you are unable to reach your usual health care provider, you should return to the Emergency Department, we are available 24 hours a day. For those patients who have received Radiology results, the interpretation of your X-ray as given to you by our Urgent Care physician is only a preliminary report. The Radiologist will review your films and if there is a change in the diagnosis you will be notified by phone. Please make sure you have provided a working phone number so we can reach you if necessary. In the event that you had a lab culture while you were a patient in the Urgent Care, you will be notified by phone if there is a need to change your antibiotic. Please make sure you have provided a working phone number so we can reach you if necessary. [facility] Urgent Care has provided you with a complete list of medications post discharge. Please inform your sequins slinger/provider of your visit and for further instruction on these medications. Any specific questions regarding your chronic medications and dosages should be discussed with your primary care physician(s) and/or pharmacist. Additional medications on your home medication list not specifically addressed. Please contact the ordering physician if you have questions about these medications. alpha-lipoic acid (Alpha Lipoic Acid 600 mg oral capsule) 1 cap(s) Oral (given by mouth) every day. ALPRAZolam (Xanax 1 mg oral tablet) 1 tab(s) PO QID PRN anxiety. ARIPiprazole (ARIPiprazole 20 mg oral tablet) 1 tab(s) Oral (given by mouth) every day. ascorbic acid (Vitamin C 1000 mg oral tablet) 1 tab(s) Oral (given by mouth) every day. aspirin (aspirin 81 mg oral capsule) 1 cap(s) Oral (given by mouth) every day. atogepant (Qulipta 60 mg oral tablet) 1 tab(s) Oral (given by mouth) every day. atorvastatin (Lipitor 40 mg oral tablet) 1 tab(s) Oral (given by mouth) every day. HS. calcium-vitamin D (Caltrate 600 + D oral tablet) 1 tab(s) Oral (given by mouth) 2 times a day. cholecalciferol (Vitamin D3 2000 intl units oral tablet) 1 tab(s) Oral (given by mouth) every day. clopidogrel (clopidogrel 75 mg oral tablet) 1 tab(s) Oral (given by mouth) every day. TAKE 1 TABLET BY MOUTH EVERY MORNING. dapagliflozin (Farxiga 10 mg oral tablet) 1 tab(s) Oral (given by mouth) every day. dihydroergotamine (DHEA) 1 mg SQ PRN. estradiol (estradiol 1 mg oral tablet) 1 tab(s) Oral (given by mouth) every day. eszopiclone (Lunesta 3 mg oral tablet) 1 tab(s) Oral (given by mouth) once a day (at bedtime) as needed for insomnia. fenofibrate (fenofibrate 160 mg oral tablet) 1 tab(s) Oral (given by mouth) every day. furosemide (furosemide 40 mg oral tablet) 1 tab(s) Oral (given by mouth) every day. glipiZIDE (glipiZIDE 10 mg oral tablet) 1 tab(s) Oral (given by mouth) every day. TAKE 1 TABLET BY MOUTH DAILY. hydrochlorothiazide- lisinopril (hydrochlorothiazide -lisinopril 12.5 mg-10 mg oral tablet) 1 tab(s) Oral (given by mouth) every day. PRN. hydrOXYzine (Atarax) 50 Milligram Oral (given by mouth) every day. HS. insulin aspart (NovoLOG) 4 unit(s) Subcutaneous (under the skin) 3 times a day before meals. following sliding scale. isosorbide mononitrate (isosorbide mononitrate 30 mg oral tablet, extended release) 1 (more content not included)... [facility] 03-25-2023 TIM Telephone (OTOLBD) JACQUELYN ZENG ([id number]) 1975 F Date Time Provider Department 03/25/23 KINGA MENDES During your visit today, we recorded the following information about you: Raquel Shelby HUC 03/25/2023 12:49 PM Signed Galo Donato, I called this patient to reschedule her botox injection and let her know your next available appointment is in the beginning of May. I offered to schedule her with another provider but she was unwilling to see anyone but you. She requested that she be fit in and she gave these dates as acceptable to reschedule: 04/02,04/22,04/23, 04/24, 04/26, 04/29, 05/01, 05/02 and 05/03. She requested a call back once a solution is found. Please advise. Thank you, Kinga Hernandez APRN.CNP 03/31/2023 3:53 PM Signed There are either same day slots or Botox slots on her respective requested days with myself. Please offer patient one of these appointments. 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 APRN.MICHELLE March 31, 2023 3:53 PM Allergies As of Date: 03/25/2023 Noted Allergy Reaction DESONIDE 11/24/2012 14 - Other: See Comments Comments: patient unaware but hx of TBI so she may not recall LATEX 04/24/2005 10 - Anaphylaxis 9 - Itching CIPROFLOXACIN 01/17/2017 16 - Unknown CODEINE 04/24/2005 4 - Hives ERYTHROMYCIN 04/24/2005 4 - Hives LATEX 04/24/2005 9 - Itching PENICILLIN V 04/24/2005 4 - Hives SULFA (SULFONAMIDE ANTIBIOTICS) 04/24/2005 4 - Hives Date Reviewed: 01/02/2023 Reviewed by: 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 APRN.CHIEF TECHNOLOGY OFFICER - Fully Assessed Reason for Visit: Appointment [[id number]] Prescriptions as of 03/31/2023 - insulin pump cart,auto,BT-cntr crtg Inject subcutaneously. - [facility] - aspirin 81 mg chewable tablet CHEW 1 TABLET EVERY MORNING - clopidogrel (PLAVIX) 75 mg tablet - cyclobenzaprine (FLEXERIL) 5 mg tablet - FARXIGA 10 mg tablet - estradiol (ESTRACE) 1 mg tablet TAKE 1 TABLET BY MOUTH DAILY FOR 14 DAYS then TAKE 1 TABLET BY MOUTH twice a week - eszopiclone (LUNESTA) 3 mg tab TAKE 1 TABLET BY MOUTH ONCE DAILY immediately before bedtime - Fenofibrate (LOFIBRA) 160 mg tablet - glipiZIDE (GLUCOTROL) 10 mg tablet - metoprolol succinate ER (TOPROL XL) 25 mg 24 hr tablet - nystatin (MYCOSTATIN) powder APPLY 1 application TO THE AFFECTED AREA(S) THREE TIMES DAILY - QULIPTA 60 mg tablet - acetaminophen 325 mg-caffeine 40 mg-butalbital 50 mg (FIORICET) per tablet Take 1 tablet by mouth every 6 hours as needed. - cyproheptadine (PERIACTIN) 4 mg tablet Take 4 mg by mouth twice daily at 6AM and 9PM. - furosemide (LASIX) 40 mg tablet Take 40 mg by mouth once daily. - Ascorbic Acid 1,000 mg tablet Ascorbic Acid (Vitamin C) Active 1 GM Oral Daily April 27, 2019 6:43am - insulin aspart U-100 (NOVOLOG) 100 unit/mL Inject subcutaneously. - keTORolac (TORADOL) 30 mg/mL (1 mL) soln INJECT 1mL TWICE DAILY NEEDED - tziokw-gscwwboq-munm ase (ZENPEP) 40,000-126,000- 168,000 unit delayed release capsule Zenpep 40,000 unit-126,000 unit-168,000 unit capsule,delayed release TAKE 1 CAPSULE BY MOUTH THREE TIMES DAILY - Pregabalin (LYRICA) 200 mg capsule pregabalin 200 mg capsule TAKE 1 CAPSULE BY MOUTH THREE TIMES DAILY - tiZANidine (ZANAFLEX) 4 mg tablet Take 4 mg by mouth every 6 hours as needed. - OTC NUTRITIONAL SUPPLEMENT Patient uses medical marijuana, gummies,powder. - Alpha Lipoic Acid 600 mg cap Take 1 capsule by mouth once daily. - lamoTRIgine (LAMICTAL) 150 mg tablet Take 150 mg by mouth twice daily. - ARIPiprazole (ABILIFY) 5 mg tablet Take 5 mg by mouth once daily. - ammonium lactate (LAC-HYDRIN) 12 % lotion ammonium lactate 12 % lotion - StackSafeUCH ULTRA BLUE TEST STRIP test strip use test strip to test BLOOD SUGAR FOUR TIMES DAILY - calcium carbonate (CALTRATE) 600 mg calcium (1,500 mg) tab Take 600 mg by mouth. - cholecalciferol (VITAMIN D3) 50 mcg (2,000 unit) tablet Take 1 tablet by mouth once daily. - hydrOXYzine HCl (ATARAX) 50 mg tablet Take 50 mg by mouth four times daily as needed. - magnesium oxide (MAG-OX) 400 mg (241.3 mg magnesium) tablet Take 1 tablet by mouth once daily. - meclizine (ANTIVERT) 25 mg tab Take 25 mg by mouth four times daily as needed. - prochlorperazine (COMPAZINE) 10 mg tablet Take 10 mg by mouth every 6 hours as needed. - venlafaxine ER (EFFEXOR XR) 150 mg 24 hr capsule Take 225 mg by mouth once daily. - atorvastatin (LIPITOR) 20 mg tablet Take 80 mg by mouth once daily. - metFORMIN (GLUCOPHAGE) 1,000 mg tablet Take 1,000 mg by mouth twice daily with meals. - ALPRAZolam (XANAX) 0.5 mg tablet 1 mg. - DIHYDROERGOTAMINE 1 MG/ML INJECTION Inject 1mg SQ every 8 hours as needed for migraine - EXEL SYRINGE 3 ML 25 X 5/8 use with DHE Problem List As Of Date 03/25/2023 Noted Resolved Migraine without aura, without mention of intra*04/24/2005 08/01/2016 CHRON (more content not included)... Normal [facility] Telemedicineon 03-07-2023 Telemedicine [id number] Jacquelyn Zeng 1975 Provider Department [place] 03/07/2023 JOSE FRANCISCO PHAM [facility] ENDOCR [facility] Family History Problem Relation Age of Onset Coronary artery disease Mother Heart attack Mother Cancer Mother Heart attack Father 54 Family Status - Relation Status Age at Mother Father Level of Service:12097 MO PHYS/QHP TELEPHONE EVALUATION 11-20 MIN [facility] Office Visiton 03-01-2023 Follow-up visit [id number] Jacquelyn Zeng 1975 [facility] Provider Department [place] 03/01/2023 Nedra-NAE STEINBERG MARIA LUZ Tam [facility] Family History Problem Relation Age of Onset Coronary artery disease Mother Heart attack Mother Cancer Mother Heart attack Father 54 Family Status - Relation Status Age at Mother Father Level of Service:39945 MO OFFICE/OUTPATIENT ESTABLISHED MOD MDM 30-39 MIN [facility] Orders Onlyon 02-18-2023 Orders Only [id number] Jacquelyn Zeng 1975 [facility] Provider Department [place] 02/18/2023 JOSE FRANCISCO PHAM [facility] ENDOCR [facility] Family History Problem Relation Age of Onset Coronary artery disease Mother Heart attack Mother Cancer Mother Heart attack Father 54 Family Status - Relation Status Age at Mother Father [facility] Orders Onlyon 01-31-2023 Orders Only [id number] Jacquelyn Zeng 1975 [facility] Provider Department Center 01/31/2023 MADISYN CAMPOVERDE*[facility] ENDOCR [facility] Family History Problem Relation Age of Onset Coronary artery disease Mother Heart attack Mother Cancer Mother Heart attack Father 54 Family Status - Relation Status Age at Mother Father Normal [facility] CNOVon 01-02-2023 CNOV Office Visit ([facility]DBEC) JACQUELYN ZENG ([id number]) 1975 F Date Time Provider Department 01/02/23 9:00 AM KINGA MENDES [facility] During your visit today, we recorded the following information about you: Pulse Blood pressure 97/minute 127/76 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, OFFICE SERVICES ASSISTANT.CHIEF TECHNOLOGY OFFICER 01/02/2023 9:25 AM Signed [facility] Follow-up Visit Current Preventive: PREEMPT Botox, Qulipta (working well for her!), periactin, lyria, lamictal Current Abortive: fioricet - 3 times in the last month and a half, compazine, toradol (has not had to use - only for severe headaches), DHE - used 4 - 5 times since her last visit Miscellaneous Patient Concerns: Ice caps work well for her! Impression: Intractable chronic migraine without aura and without status migrainosus (primary encounter diagnosis) Chronic daily headache Jacquelyn Zeng has been previously approved for an Oral Calcitonin Gene-Related Peptide Receptor Antagonist (GEPANT) Atogepant for the treatment of chronic migraine. The patient has demonstrated the following: Provider attests patient has had a positive clinical response: Yes Patient will not use with another Oral Calcitonin Gene-Related Peptide Receptor Antagonist (GEPANT): Yes Patient's quality of life and ability to perform ADLs has improved: Yes We suggest the patient continue treatment with GEPANT Atogepant. The following preventative medications have been tried for three or more months without benefit: Anti-Convulsant Gabapentin (Neurontin) Oxcarbazepine (Trileptal) Pregabalin (Lyrica) Topiramate (Topamax, Trokendi XL, Qudexy) Anti-Depressant and Antipsychotic Amitriptyline (Elavil) Citalopram (Celexa) Venlafaxine (Effexor) Blood Pressure Lisinopril (Zestril) Supplements Magnesium The following abortive medications have been tried but require high frequency use which can lead to Medication Overuse Headache: Analgesic Hydromorphone (Dilaudid) Anti-Anxiety Buspirone (Buspar) Anti-Migraine Dihydroergotamine (DHE-45, Migranal) Over the Counter Medications Acetaminophen (Tylenol) Follow-Up Onabotulinum Toxin A (BotoxTM) for Migraine Indication: Chronic Intractable Migraine Treatment #: 7 Referral Expiration: 09/17/2023 Prior to the initiation of the FIRST treatment with Onabotulinum Toxin A, the patient reported the following average headache frequency over the past 3 MONTHS: Number of moderate-severe migraine days/month: 30 (daily) Number of mild migraine days/month: 0 Number of headache free days/month: 0 (0 headache-free hours) Migraine severity: 12/20 After treatment with Onabotulinum Toxin A: Number of moderate-severe migraine days/month: 10 Number of mild migraine days/month: 20 Number of headache free days/month: 0 (0 headache-free hours) Migraine severity: 10/20 Patient reduction in overall migraine days: No Patient reduction in moderate-severe migraine days: Yes Patient reduction of headache hours by 100 hours or more: No Individual has obtained clinical benefit deemed significant by individual or prescriber (Y/N): Yes Patient's quality of life and ability to perform ADLs has improved (Y/N): Yes - she has had to lay down due to nausea. her occipital blocks are also delayed locally. Side effects: none Wearing off: Yes - 10 weeks after treatment The patient has been assessed for disorders which could contribute to breathing or swallowing difficulty, and there is no contraindication with PREEMPT Botox. There is no documented allergic reaction/hypersensit ivity to any botulinum toxin and there is no active infection at proposed injection site. HEADACHE SCORES: Headache Questions 06/08/2021 09/07/2021 ER visits since last office visit: 0 0 Hospital stays since last office visit 0 0 Limited ADLs in the last month: 26 14 Days missed from work or school in the last month: 26 - Days headache pain free in the last month: 0 7 Days per month with ALL of the following symptoms - decreased productivity, light sensitivity and nausea: 26 10 Initial improvement of headache after botox injection at last visit: Not applicable, I did not have a botox injection at my last visit Much improved PRN medication usage in the last month: 26 10 Patient impression of improvement since last visit: Very much worse Much improved HIT-6 06/08/2021 09/07/2021 HIT-6 78 (Severe impact) 65 (Severe impact) MAYNOR - 2/7 SCORES 06/08/2021 09/07/2021 MAYNOR-2 Score 1 3 MAYNOR-7 Score - 11 PHQ-9 11/07/2016 06/08/2021 09/07/2021 Score 17 15 17 BP 127/76 Pulse 97 Patient name: Jacquelyn Zeng : 1975 ALLERGIES Allergen Reactions Desonide Other: See Comments patient unaware but hx of TBI so she may not recall Latex Anaphylaxis, Itching Ciprofloxacin Unknown Codeine Hives Erythromycin Hives Latex Itching Penicillin V Hives Sulfa (Sulfonamide * Hives UNIVERSAL PROTOC (more content not included)... Normal [facility] Orders Onlyon 01-01-2023 Orders Only [id number] Jacquelyn Zeng 1975 F Date Provider Department Center 01/01/2023 JOSE FRANCISCO PHAM [facility] ENDOCR [facility] Family History Problem Relation Age of Onset Coronary artery disease Mother Heart attack Mother Cancer Mother Heart attack Father 54 Family Status - Relation Status Age at Mother Father Normal [facility] ED Clinical Summaryon 2022 ED Clinical Summary [facility] ? Urgent Care [address] [place] [address] Clinical Summary PERSON INFORMATION Name: JACQUELYN ZENG Age: 47 Years Sex: FEMALE : 1975 MRN: Acct#: Visit Reason: Medical screening exam; [facility] F/U HEAD, NECK LEFT ARM Arrival: 12/19/2022 10:32:45 Discharge: 12/19/2022 11:16:00 LOS: 000 00:44 Check In: 12/19/2022 10:32:45 Checkout: 12/19/2022 11:16:00 Address: [address] [place] [id number] PCP: JOSH OCHOA PROVIDER INFORMATION Provider Role Assigned Unassigned Elmo Solano PA-C ED PA 12/19/2022 10:37:09 Vianney Hoover ED Nurse 12/19/2022 10:54:44 VITALS INFORMATION Vital Sign Triage Latest Temperature Tympanic Temperature Temporal Artery Pulse Rate O2 Sat Respiratory Rate Blood Pressure /68 mmHg /68 mmHg MEDICAL INFORMATION Medications Given: Allergy Information: Desonide; penicillins; Latex; sulfa drug; erythromycin; codeine; ciprofloxacin PHYSICIAN DOCUMENTATION DISCHARGE INFORMATION: Discharge Disposition: Home Discharge Location: Home PATIENT EDUCATION INFORMATION Instructions: Follow-Up: With: Address: When: Return to this practice Comments: Mar 21 at NOON DIAGNOSIS: Adhesive capsulitis of shoulder; C6 radiculopathy; Cervicogenic headache; Left knee sprain; Lumbar strain; Occipital neuralgia; Optic nerve disorder; Post concussive syndrome; Strain of left hip; Strain of right hip; Thoracic sprain Patient Understands: Yes - Patient/family/careg iver verbalizes understanding of instructions given Comment: Normal [facility] ED Patient Summaryon 023 ED Patient Summary [facility] ? Urgent Care [address] [place] [address] PATIENT DISCHARGE INSTRUCTIONS Patient Information Name: JACQUELYN ZENG Age: 47 Years Date of : 1975 Reason For Visit: Medical screening exam; [facility] F/U HEAD, NECK LEFT ARM Arrival Time: 12/19/2022 10:32:45 Primary Care Physician: JOSH OCHOA Attending Physician: Elmo Solano PA-C Comment: Patient Education With: Address: When: Return to this practice Comments: Mar 21 at NOON Medication Information: The exam and treatment you received today in the [facility] Emergency Department were for an urgent problem and are not intended as complete care. It is important for you to follow up with a doctor, nurse practitioner, or physician?s periodicals library assistant for ongoing care. If your symptoms become worse or you do not improve as expected and you are unable to reach your usual health care provider, you should return to the Emergency Department, we are available 24 hours a day. For those patients who have received Radiology results, the interpretation of your X-ray as given to you by our Emergency Department physician is only a preliminary report. The Radiologist will review your films and if there is a change in the diagnosis you will be notified by phone. Please make sure you have provided a working phone number so we can reach you if necessary. In the event that you had a lab culture while you were a patient in the Emergency Department, you will be notified by phone if there is a need to change your antibiotic. Please make sure you have provided a working phone number so we can reach you if necessary. [facility] Emergency Department has provided you with a complete list of medications post discharge. Please inform your sequins slinger/provider of your visit and for further instruction on these medications. Any specific questions regarding your chronic medications and dosages should be discussed with your primary care physician(s) and/or pharmacist. Additional medications on your home medication list not specifically addressed. Please contact the ordering physician if you have questions about these medications. alpha-lipoic acid (Alpha Lipoic Acid 600 mg oral capsule) 1 cap(s) Oral every day. ALPRAZolam (Xanax 1 mg oral tablet) 1 tab(s) PO QID PRN anxiety. ARIPiprazole (ARIPiprazole 20 mg oral tablet) 1 tab(s) Oral every day. ascorbic acid (Vitamin C 1000 mg oral tablet) 1 tab(s) Oral every day. aspirin 81 Milligram Oral At bedtime. atogepant (Qulipta 60 mg oral tablet) 1 tab(s) Oral every day. atorvastatin (Lipitor 40 mg oral tablet) 1 tab(s) Oral every day. HS. calcium-vitamin D (Caltrate 600 + D oral tablet) 1 tab(s) Oral 2 times a day. cholecalciferol (Vitamin D3 2000 intl units oral tablet) 1 tab(s) Oral every day. clopidogrel (clopidogrel 75 mg oral tablet) 1 tab(s) Oral every day. TAKE 1 TABLET BY MOUTH EVERY MORNING. dapagliflozin (Farxiga 10 mg oral tablet) every day. dihydroergotamine (DHEA) 1 mg SQ PRN. estradiol (estradiol 1 mg oral tablet) 1 tab(s) Oral every day. eszopiclone (Lunesta) 3 Milligram Oral once a day (at bedtime). fenofibrate (fenofibrate 160 mg oral tablet) 1 tab(s) Oral every day. furosemide (furosemide 40 mg oral tablet) 1 tab(s) Oral every day. glipiZIDE (glipiZIDE 10 mg oral tablet) 1 tab(s) Oral every day. TAKE 1 TABLET BY MOUTH DAILY. hydrochlorothiazide- lisinopril (hydrochlorothiazide -lisinopril 12.5 mg-10 mg oral tablet) 1 tab(s) Oral every day. PRN. hydrOXYzine (Atarax) 50 Milligram Oral every day. HS. insulin aspart (NovoLOG) 4 unit(s) Subcutaneous 3 times a day before meals. following sliding scale. isosorbide mononitrate (isosorbide mononitrate 30 mg oral tablet, extended release) 1 tab(s) Oral once a day (in the morning). ketorolac (Toradol IM) 30 Milligram Intramuscular every 6 hours. PRN migraines. lamoTRIgine (LaMICtal 150 mg oral tablet) 1 tab(s) Oral every day. magnesium oxide (magnesium oxide 400 mg oral tablet) 1 tab(s) Oral every day. magnesium oxide (magnesium oxide 400 mg oral tablet) 1 tab(s) Oral every day. meclizine 25 mg PO Q6H PRN vertigo. metFORMIN 1,000 Milligram Oral 2 times a day. metoclopramide (Reglan) 1 tab QID. metoprolol (Metoprolol Succinate ER 25 mg oral tablet, extended release) 0.5 tab(s) Oral every day. TAKE 1/2 (ONE-HALF) OF A TABLET BY MOUTH IN THE MORNING DO not crush or chew. [facility] Prescription (DME: [facility]) Diagnosis F07.81 Length of need: 6+ months Dispense 1 No refills. Refills: 0. pregabalin (Lyrica 200 mg oral capsule) 1 cap(s) Oral 3 times a day. prochlorperazine (Compazine) 10 Milligram Oral every 6 hours. PRN nausea. tiZANidine (tiZANidine 2 mg oral capsule) 1 cap(s) Oral Every 8 hours as needed as needed for muscle spasm for 30 Days. venlafaxine (Effexor XR) 225 Milligram Oral every day. Visit Information Visit Diagnosis: Diagnoses This Visit Adhesive capsulit (more content not included)... Normal [facility] Urgent Care Note- Provideron 12-19-2022 Urgent Care Note- Provider Patient: JACQUELYN ZENG Age: 47 years Sex: FEMALE : 1975 Associated Diagnoses: Occipital neuralgia; C6 radiculopathy; Cervicogenic headache; Post concussive syndrome; Thoracic sprain; Left knee sprain; Adhesive capsulitis of shoulder; Optic nerve disorder; Lumbar strain; Strain of right hip; Strain of left hip Author: Emlo Solano PA-C History of Present Illness OCCUPATIONAL HEALTH FOLLOW-UP Date of injury: 01/24/16 Claim #: [id number] Employer: [employer] Mechanism of Injury: She tripped and fell on a wet floor at work and hit her head, landing on her left side. Diagnosis: Head injury (S09.90XA), Left ulnar fracture (S52.045A), Occipital Neuralgia (M54.81), Post concussive syndrome (F07.81), Cervicogenic headache (G44.89), Ulnar neuropathy (G56.22), Cervical sprain (S13.4XXA), Right hip strain (S76.011A), Left hip strain (S76.012A), Cervical C6 radiculopathy (M54.12), Left knee sprain, Left Shoulder Sprain This is a 47 year old here today in follow-up for her work related injury. Jacquelyn transferred care to us from the [facility] in September 2018. 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 Shortly after the fall she developed a severe headache. She was evaluated and found to have a head injury with a normal head CT and a fracture of the left elbow. Her head injury has been complicated by persisting vertigo, double vision, head and neck pain, and memory problems. She states initially she could not drive to work without pulling over to vomit. Starting in 2016, she was told there was no further light duty available and she has not worked since. Since that time she has continued to demonstrate poor balance with intermittent falls, and chronic neck, back and joint pains. In addition to that, she has had several falls with additional injuries that she relates to her vertigo. Related to these falls she has difficulty with raising her left shoulder above her head which makes it more difficult for her to steady herself when she feels she might fall. She ambulates with the help of a stand up walker. Things that have provided some relief in the past include vestibular therapy and vision therapy as well as massotherapy/chiropr actic care/acupuncture, and a tens unit that she uses 8 hours/day. On occasion, her left knee will buckle, causing her to stumble. MRI of her left shoulder and left knee were finally allowed and performed at [facility]. She was allowed an injection into her right shoulder which she found helpful for a short period of time, but then PT was denied. She states no further treatment of her left shoulder or knee has been allowed. They would like to repeat the injection but this has been denied. She states she has scheduled ortho follow-up with Dr. Patterson given the recent denials, as well as her need for cardiac and diabetic care outside of the claim. She was making progress with chiropractic visits, massotherapy, acupuncture and PT, but then she had a huge setback when these were all denied recently. Hearing went in her favor and now one visit/week is allowed, and she is paying for a second visit each week out of her own pocket. She has had MRI c-spine, but I see additional conditions were dismissed. Historically lumbar and cervical disc conditions have been disallowed, and she continues to see Dr. Arce for this. He did some injections into her lumbar spine this past week outside of the claim. She continues on medical marijuana. She didn't find an occasional Oxycodone all that helpful. [facility] pain management recommended their intensive pain management program but it was denied by [facility]. She denies any saddle anesthesia. No new numbness, tingling or weakness in her lower extremities. It is obviously difficult to drive with these symptoms. Her requires FMLA to help her. She no longer can do laundry at home because it is too difficult for her to walk steps, especially carrying laundry. She uses a service dog which helps to some degree. She reports cervicogenic migraines daily. She sees pain management Dr. Stack at [facility] who performs greater an lesser occipital blocks and meza her nerves (RFTC). She is due for these again in January. She continues with difficulty with sleep, although lately she reports getting around 4 hours/night with Lunesta, but reports sleep walking. She continues with difficulty with memory recall. This makes it difficult for her to utilize the tools she learns in therapy to continue to make progress at home. She had a neuro psych eval in 2017 and then again in 2019. It demonstrated some deficits, but repeat exam showed stability. She finally feels like psychiatry has her on a good combination of medications for her anxiety and depression. Last behavioral assessment supported the fact that she has severe anxiety and depression. This is finally allowed on her claim and remains quite significant. There are no (more content not included)... Normal [facility] Urgent Care [address] 023 Urgent Care Record [facility] ? Urgent Care [address] [place] [address] PATIENT DISCHARGE INSTRUCTIONS Patient Information Name: JACQUELYN ZENG Age: 47 Years Date of : 1975 Reason For Visit: Medical screening exam; [facility] F/U HEAD, NECK LEFT ARM Arrival Time: 12/19/2022 10:32:45 Primary Care Physician: JOSH OCHOA Attending Physician: Elmo Solano PA-C Comment: Visit Diagnosis: Diagnoses This Visit Adhesive capsulitis of shoulder (M75.00) C6 radiculopathy (M54.12) Cervicogenic headache (G44.86) Left knee sprain (S83.92XA) Lumbar strain (S39.012A) Medical screening exam ([id number]) Occipital neuralgia (M54.81) 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 Do not drive a car. ? Do not operate machinery such as power tools, lawn mowers, drills, sewing machines, or stoves ? Avoid alcoholic beverages and drugs for allergies, nerves, or sleep ? Do not make important personal or business decisions or sign any legal documents With: Address: When: Return to this practice Comments: Mar 21 at NOON Medication Information: The exam and treatment you received today in the [facility] were for an urgent problem and are not intended as complete care. It is important for you to follow up with a doctor, nurse practitioner, or physician?s periodicals library assistant for ongoing care. If your symptoms become worse or you do not improve as expected and you are unable to reach your usual health care provider, you should return to the Emergency Department, we are available 24 hours a day. For those patients who have received Radiology results, the interpretation of your X-ray as given to you by our Urgent Care physician is only a preliminary report. The Radiologist will review your films and if there is a change in the diagnosis you will be notified by phone. Please make sure you have provided a working phone number so we can reach you if necessary. In the event that you had a lab culture while you were a patient in the Urgent Care, you will be notified by phone if there is a need to change your antibiotic. Please make sure you have provided a working phone number so we can reach you if necessary. [facility] Urgent Care has provided you with a complete list of medications post discharge. Please inform your sequins slinger/provider of your visit and for further instruction on these medications. Any specific questions regarding your chronic medications and dosages should be discussed with your primary care physician(s) and/or pharmacist. Additional medications on your home medication list not specifically addressed. Please contact the ordering physician if you have questions about these medications. alpha-lipoic acid (Alpha Lipoic Acid 600 mg oral capsule) 1 cap(s) Oral every day. ALPRAZolam (Xanax 1 mg oral tablet) 1 tab(s) PO QID PRN anxiety. ARIPiprazole (ARIPiprazole 20 mg oral tablet) 1 tab(s) Oral every day. ascorbic acid (Vitamin C 1000 mg oral tablet) 1 tab(s) Oral every day. aspirin 81 Milligram Oral At bedtime. atogepant (Qulipta 60 mg oral tablet) 1 tab(s) Oral every day. atorvastatin (Lipitor 40 mg oral tablet) 1 tab(s) Oral every day. HS. calcium-vitamin D (Caltrate 600 + D oral tablet) 1 tab(s) Oral 2 times a day. cholecalciferol (Vitamin D3 2000 intl units oral tablet) 1 tab(s) Oral every day. clopidogrel (clopidogrel 75 mg oral tablet) 1 tab(s) Oral every day. TAKE 1 TABLET BY MOUTH EVERY MORNING. dapagliflozin (Farxiga 10 mg oral tablet) every day. dihydroergotamine (DHEA) 1 mg SQ PRN. estradiol (estradiol 1 mg oral tablet) 1 tab(s) Oral every day. eszopiclone (Lunesta) 3 Milligram Oral once a day (at bedtime). fenofibrate (fenofibrate 160 mg oral tablet) 1 tab(s) Oral every day. furosemide (furosemide 40 mg oral tablet) 1 tab(s) Oral every day. glipiZIDE (glipiZIDE 10 mg oral tablet) 1 tab(s) Oral every day. TAKE 1 TABLET BY MOUTH DAILY. hydrochlorothiazide- lisinopril (hydrochlorothiazide -lisinopril 12.5 mg-10 mg oral tablet) 1 tab(s) Oral every day. PRN. hydrOXYzine (Atarax) 50 Milligram Oral every day. HS. insulin aspart (NovoLOG) 4 unit(s) Subcutaneous 3 times a day before meals. following sliding scale. isosorbide mononitrate (isosorbide mononitrate 30 mg oral tablet, extended release) 1 tab(s) Oral once a day (in the morning). ketorolac (Toradol IM) 30 Milligram Intramuscular every 6 hours. PRN migraines. lamoTRIgine (LaMICtal 150 mg oral tablet) 1 tab(s) Oral every day. magnesium oxide (magnesium oxide 400 mg oral tablet) 1 tab(s) Oral every day. magnesium oxide (magnesium oxide 400 mg oral tablet) 1 tab(s) Oral every day. meclizine (more content not included)... Normal [facility] Follow-Upon 12-13-2022 Follow-Up [id number] Jacquelyn Zeng 1975 Date Provider Department Center 12/13/2022 JOSE FRANCISCO PHAM [facility] ENDOCR [facility] Family History Problem Relation Age of Onset Coronary artery disease Mother Heart attack Mother Cancer Mother Heart attack Father 54 Family Status - Relation Status Age at Mother Father Level of Service:10332 MO OFFICE/OUTPATIENT ESTABLISHED MOD MDM 30-39 MIN Normal [facility] Telephoneon 11-21-2022 Telephone [id number] Jacquelyn Zeng 1975 Date Provider Department Center 11/21/2022 JOSE FRANCISCO PHAM [facility] ENDOCR [facility] Family History Problem Relation Age of Onset Coronary artery disease Mother Heart attack Mother Cancer Mother Heart attack Father 54 Family Status - Relation Status Age at Mother Father Reason for Visit and Comments: Omnipod [Other] Normal [facility] Office Visiton 11-19-2022 Follow-up visit [id number] Jacquelyn Zeng 1975 F Date Provider Department Center 11/19/2022 JULIANA CAALevue Lynsey Family History Problem Relation Age of Onset Coronary artery disease Mother Heart attack Mother Cancer Mother Heart attack Father 54 Family Status - Relation Status Age at Mother Father Level of Service:09796 MO OFFICE/OUTPATIENT ESTABLISHED MOD MDM 30-39 MIN Reason for Visit and Comments: Follow-up [[id number]] Chest Pain [[id number]] [facility] Provider Orderson 10-15-2022 Provider Orders [id number]# 1.00OTGTIFF [facility] Outside Recordson 10-09-2022 Outside Records [id number] #1.00OTGTIFF [facility] Office Visiton 10-05-2022 Follow-up visit [id number] Jacquelyn Zeng 1975 F Date Provider Department Center 10/05/2022 JOSE FRANCISCO PHAM [facility] ENDOCR [facility] Family History Problem Relation Age of Onset Coronary artery disease Mother Heart attack Mother Cancer Mother Heart attack Father 54 Family Status - Relation Status Age at Mother Father Level of Service:91495 MO OFFICE/OUTPATIENT NEW MODERATE MDM 45-59 MINUTES Reason for Visit and Comments: New Patient [632] - DM2 [facility] Coding Summaryon 10-01-2022 Coding Summary HTMLBase 64 OljrjlrdSGy5lGd+PGhl YWQ+RM9YALViF04ptAVn nU8ZO0aGPM7UETEAZUYF IJ7QXZ4seBQ1ZKryP7Kz biAv NawalGEiMD59QDu5NZB8 hBbzJYnyaI5ejLTuF1x5 KgUcBX29oT56YKldDRCd FgO4XbGhcgxwxQLr L8tsMzCjuACuEfd+PHRh YmxlIHdpZHRoPScxMDAl VvGsbUuxCN6xCq1vORIn LWNvbGxhcHNlOiBj g7qlQCEvSFpsWT7scNai R1MnrSO2AAUpy9f5Zb11 dHI+YIJdDMP7kHydQTgu b328LgJax8buBKD6 iXNvFYiiSMF2Q90nh5T8 XGAtWXVnRVL1aHT0pZ5a dJqciwlhO7HcyEPnSbM3 XYP2bOHfuQ6mtWyj uofyuW9xQpo+Q11ECP7R UAIEAO6KVzy3X4YkNovg dHI+TW97MRVmBJ60oMXc xNGex0rtiKc4CnBi JYDuBPA4tNjxUPdlg8Uy HIXpF75jsYIgt9H4AHAl aAuuxSMfGyWnwNT1mK7a IFnogazjc2pgcxhs Opfkc1gsqq61cD17O38g DKkwUGDyXYR5WIZdDDLy kJpica8fdF4fZi9+IDxj d1bjq3abiOu0UzOn EKZkdaJraPheWSO2q6Li Jy59B1OxxRoql8HbWyw5 ya89vDGyg6T4jHF6VOxc TSHgmR0iOPitVuU0 SGJjVhKckG62cETgFIwg Uz0zlRofnKyfGQ6dYZOj dkdeJIJvkU6qSFGezOKd pKseNP9uNQPwwnvl n466DmQbEXY7OSKjeASz S6ZvvF7oVaLjLOUoTVXg G1TrfLKcEYbwQ207TRhh YiG3TWTjmbYmW9Yy WOQhbUtdCcA9i7D4Du9Z n7XckyjjUKM6UKynFZN5 HgHvLiOfWvG3B4SpWoa3 NHYonYrgAQ6gQ0Or NIUioipmasykmZL6HFSt NBIiwZ69fMZrMIzdTv0x m8Z9j316QDNpKWXjwZ48 Ln5zsRkaBCRjoPVE rP9afiacl1xfwhcnErFk QXVkMUa8SZy2TZKohNlj JrCmHSN4NsX1UDM7eLGr vO9gfLncywhuoG7d Oyc+G51cxQ1bWZL0CMV3 nnluTANggqXpSG49XL14 O3KxPsmkwHZxxEE+PGRp qpDukRxqUF6bBpOb w8kek7ZuTUacW5QzRJFa TTifVwc7TTDmEYL4cFT5 qN4hULDhJTdkt9G1gMM9 P0JlxxJeqp6dl5rs EAXuUMobP42zuOQyc6F3 IIUhcWF4PISnwVisIlYx wZ69Vnh+RHIwmHdvn6Rn Umnze3hod5pnqGa7 IjMwJSIgdmFsaWduPSJ0 f5LtSd01C66jYQxnFCKk TFLgGAHyTREpgPkakh5s hP5fWv1+PGNvbCB3 hUF2dB2xTKAhUfI7LYpu D624ZzXonZFbKvmam0gj t1vgwIl4HrEpYSAiohRc oZvzJAT2b5BiLv47 Z43bASynVOQpEZPiDFOd ZRSydQmsbl3baZ3lUe6+ UZ3to3tooc01aR68pOT+ FTBnLHT4wElzCWyg TDCqdH2tRPywUuW9VROb QtZjdB61aQXaKXqtKm2c pWbplKxmCR1uMPEvynsq u068QnPlp7yzWQYo hHXfJMbeJFE5X22hi4C7 NWYlMLDgVFU9xRR2cO7b bGlnbjogbGVmdDsgdmVy cKfhDTyyDMtjW740 IHRvcDsnPlBhdGllbnQg ZhJcBMj5U0KeUdt6FJDx mZgaAH4uiSLbDFhjSv9j wHrejZkcQL1oDSUp zctyj531AsSxp7elKPAc qMCtXVckZJC0F74ls6G9 EGXtEIJtFHM8yBN0qT6k bGlnbjogbGVmdDsg ulJjsHxoDNljTEzvK501 IHRvcDsnPkJpcnRoIERh xMH5ZM25HC74vJDkx6Z5 cEZ2M0InCSOgwqda pvjckRW1FATyHYArvI25 Zf5riUlfVb8fKNWmTGO1 TLQtwIXrN1ZgfX0kYmIh QXUfNIQyT9YvbYKu OMurO951RSxbAnP6XGYy rmHnM2OpQANpfEzkAlY7 f3E0Tg4FS3N7GB35RT20 bEJbn9J3eMY4X1Jx HKAuivrtzguwuAH8ITHi BYDnsX40Xm8dmPevMy7u WSZoJKL0WNTcaCCtT8Wx pW7tXeMcWEZyHDPs M0UhpIBjHJgnK511DHbl NvZ3QQFhlxLlC6QhFDTc qJhwEeW8a9W4Uq1YFKv5 HY67OA61iDEgo5T6 dBV5H4NkZLLywjqjtjdo mPC1WHGoORLklN65Dv9r qObbDv0vBLXzLHN8HVBe wYMyJ8LymS9bLkXo SPMiXLBnF6FajBRvNYut F061IXezQeH8TKSoeoHe R2IwKVGyeKptFeC8k3X5 Dg9HQLHuAC59FWR6 cJD5SA12ON22W9StZtxw dGFibGU+PHRhYmxlIHdp ZHRoPScxMDAlJyBzdHls II4eXt0lOUGkFAQa rUbszEQqWlJbj9nwMLYa EGlmAF4haQchO0TnhTN7 LVRtq8k2Pq53C10sL0Fs dXA+GHUynNF0kNA5 zZ4iXmDdEwM4JHgxL378 WbAluOClHmjck7dai1vt eDn1NrD8HQKaktTucKoz ZJQ8u7OtFd34D83c IHdpZHRoPSIxNSUiIHZh kEaacc3evO0eOs7+PGNv bUO8rSG9nS3nZfHvDyG7 VUiaA944YpCxrLZm Mohrd4ieo2igmHk3PpXf ZLQhtpFliXukAFJ1s1Az Cy27M0KiuByaw1XtLkk1 rd60vOArh9W7gBC1 W7WaDLQlxbiqnPRchYty XA0xTAVuxfbyYEOtyT9o NHRqP0v3GrGtVaP2PDaz S2OsteF3SPTcgXZq RJcyGVD2B14kq9E4SVLt CMDnLPN5eSD2gS6ovDth bjogbGVmdDsgdmVydGlj ZZyoFKicI700MYBc iEtkKHCdwR7fXFXyhETn sTnzBB8uANUjhprtDy1U HuNHHrtxST5ABH42S7Eb Pja7QNNuhSoeMU0k fMSrEJnnIm0lgJfgjVik VP8iNUCkwmwlIIOhjE3a FDZexIWtxIlwGF8kDKGd ghfgt225NgFyILF7 RLVzyQDyQ3DgnI6aHmOq BUTuSBApV2UtnRDdDIqb Q866XIrjLxY5JGLlpsAx Y8VzFHXuhQwwIhQ1 r2K8Jo3oQG3oGB1uIEq5 CX55UW45iTMzj4O2qIM0 G7DjSHEqpazqjjeanHA4 MYFmULVuvU62cGVu FQdmKn2mt5H7e859QNZs COQlgR18Wf9cdVvgDNJw zXNYkX2kroodg7wbvend FpWmFYLaBPt2ISb5 BRPxkIdsWoExLRN9SeK2 NWE4wPTaaX7kkTrxztmv iM4zYdg+NDggWWVhcnM8 L2YzAuy4YRBvmVcg MV1ycLRzIWatQa1wePze mGumOH2dZVCeokjyNTIs xT0tEMFdwMJzoDmwPH4g RBJuwefwg478YmSm PUJ6CHKfxEEjA1LgrO6i QmCrNWWgQLLcX6BbdSVz EUhpF783GOkwOoM9VHNa ssBvX2EcOHEtkMee QpC3z7A0Od5WZO4YVSW7 G2ZcEsh8XIXrsUbwIJ7t bYDyZTomZs0adYwlrCxi AY6jZKFkslhqCQXs iL0dXFYluMWlaGoyDQ1v XHAsneejg371MtZcPGT6 NLPteIBfI0PjwZ0aMiRm NARlLRMnR4XukVTo DLqqU842VRxeRfU1FVEo ynTtO7EtGKAvxTfkXxA1 y3T1Kz0KORfroWJ+PC90 rh15C9AcFkusYvg6 QJOpELH5rAE6wE9nTPGi SXrnn5N0dWD1I6PxaxOj pk4rv9wcTJKsFOdmS46z bEPxh9Q3KRJciUR1 CNGntDveCaMnzI84Ahw+ ESAnaZpaw3RfZhlqb0vd z9yxuHz8ToGuGKKeuiUr oTzxEOH4b6GcEh66 J69zEMjsQUJlUOAnUBVl BSEhsTxprh6fdW0iCo3+ DNWgjCW2cFK5bS7hKtTa HkS0GHosT765RjTg rAQlQywwk3laf0wtsLh4 IjIwJSIgdmFsaWduPSJ0 n3EzPv17B8EnkUnsz9Qq Bik8xg71nKTcm1O8 aYJ3R9KaVLXnfuoiyKXy lNmyBT4mQNQkwuffHRLj aX0tPCKuC3b4QbEzBsK0 FPqaI7UugjG3OEVw kMXbAGQmiQMHnF6rpnnm s9okzbcbSaShWFTuMSh6 DGr1YACqcCmmVePiYXJ9 IlV5JXR5kMToiF2q dExtfnkdfC1bCuq+UGh5 x9fzhYOaAF7uvVI3NO74 EJ72vWFrn4Z0yKL5O5Vx ZGRpbmctcmlnaHQ6 SKHjRBBjgM13Kw5lwGuy Cg4qPVSyVTF5QDFmvKUd J0ZdgK6kEeCqMPBtJMQd F7FsrBOrYEohM960 MHcqBnY8DKMgwdOsF4Qz UUMokRlgVdP4o3F8Hf8F MF76AX62GH11gRGdf8T3 oHR3G5IcLAGjafrv tlthcUB6SSNvUABkuH35 Pw0raWlzBe6aPCUzDFY4 AVVxmWNaU5XzjW6kRxQl MPUrQMOeQ2PjqYPk BDneK911KWqoXcL4IAAk fdJeT6SaSHNlnAqzTrY1 v6B8Km3WMo58CQ65AK00 vBPrf3C5yQA0S4Se MRPakrufsvpxaSE5EAOn QXKcsS41Pt1tvFhaZe0o DGPeSEK6PYFryMKfS3Uj tL5aIrAzAZSoUXLu P2VjuTAnIIcdO044DDjt DsS3YARujkVzH4OaAMVc vKodBeF0c5K8Xe0ZZDea prp4B9RsHfkwgCJ+ SO21NWHdOA62cYJgjMWf j0flzUw1NgXqRDNfNQY7 vVmfFKxje0CrIIZfO08q uEFze8A1AOLhoRtv cHN (more content not included)... Normal [facility] ED Clinical Summaryon 2022 ED Clinical Summary [facility] ? Urgent Care [address] [place], [place] [id number] Clinical Summary PERSON INFORMATION Name: JACQUELYN ZENG Age: 47 Years Sex: FEMALE : 1975 MRN: Acct#: Visit Reason: Medical screening exam; BWC F/U-HEAD, NECK, LT ARM Arrival: 09/20/2022 09:06:54 Discharge: 09/20/2022 09:56:00 LOS: 000 00:50 Check In: 09/20/2022 09:06:54 Checkout: 09/20/2022 09:56:00 Address: [address] [place] [address] PCP: JOSH OCHOA PROVIDER INFORMATION Provider Role Assigned Unassigned Elmo Solano PA-C ED PA 09/20/2022 09:08:32 Esmer Baird ARC WELDER APPRENTICE Nurse 09/20/2022 09:11:55 VITALS INFORMATION Vital Sign Triage Latest Temperature Tympanic Temperature Temporal Artery Pulse Rate O2 Sat 96 % 96 % Respiratory Rate Blood Pressure /68 mmHg /68 mmHg MEDICAL INFORMATION Medications Given: Allergy Information: Desonide; penicillins; Latex; sulfa drug; erythromycin; codeine; ciprofloxacin PHYSICIAN DOCUMENTATION DISCHARGE INFORMATION: Discharge Disposition: Home Discharge Location: Home PATIENT EDUCATION INFORMATION Instructions: Follow-Up: With: Address: When: Return to this practice Comments: SatDecember 19 at 10:30 am DIAGNOSIS: C6 radiculopathy; Capsulitis, adhesive shoulder; Cervicogenic headache; Left knee sprain; Lumbar strain; Occipital neuralgia; Optic nerve disorder; Post concussive syndrome; Strain of left hip; Strain of right hip; Thoracic sprain Patient Understands: Yes - Patient/family/careg iver verbalizes understanding of instructions given Comment: Normal [facility] ED Patient Summaryon 023 ED Patient Summary [facility] ? Urgent Care [address] [place], [place] [id number] PATIENT DISCHARGE INSTRUCTIONS Patient Information Name: JACQUELYN ZENG Age: 47 Years Date of : 1975 Reason For Visit: Medical screening exam; BWC F/U-HEAD, NECK, LT ARM Arrival Time: 09/20/2022 09:06:54 Primary Care Physician: JOSH OCHOA Attending Physician: Solano, Elmo L PA-C Comment: Patient Education With: Address: When: Return to this practice Comments: SatDecember 19 at 10:30 am Medication Information: The exam and treatment you received today in the [facility] Emergency Department were for an urgent problem and are not intended as complete care. It is important for you to follow up with a doctor, nurse practitioner, or physician?s periodicals library assistant for ongoing care. If your symptoms become worse or you do not improve as expected and you are unable to reach your usual health care provider, you should return to the Emergency Department, we are available 24 hours a day. For those patients who have received Radiology results, the interpretation of your X-ray as given to you by our Emergency Department physician is only a preliminary report. The Radiologist will review your films and if there is a change in the diagnosis you will be notified by phone. Please make sure you have provided a working phone number so we can reach you if necessary. In the event that you had a lab culture while you were a patient in the Emergency Department, you will be notified by phone if there is a need to change your antibiotic. Please make sure you have provided a working phone number so we can reach you if necessary. [facility] Emergency Department has provided you with a complete list of medications post discharge. Please inform your sequins slinger/provider of your visit and for further instruction on these medications. Any specific questions regarding your chronic medications and dosages should be discussed with your primary care physician(s) and/or pharmacist. New Medications [facility], [address] [place], [place] [id number], [phone] oxyCODONE (oxyCODONE 5 mg oral tablet) 1 tab(s) Oral every day as needed for pain for 30 Days. Claim [id number] DOI 01/24/16 FILL 10/21/22. Refills: 0. oxyCODONE (oxyCODONE 5 mg oral tablet) 1 tab(s) Oral every day as needed for pain for 30 Days. Claim [id number] DOI 01/24/16. Refills: 0. oxyCODONE (oxyCODONE 5 mg oral tablet) 1 tab(s) Oral every day as needed for pain for 30 Days. Claim [id number] DOI 01/24/16 FILL 11/20/22. Refills: 0. Additional medications on your home medication list not specifically addressed. Please contact the ordering physician if you have questions about these medications. alpha-lipoic acid (Alpha Lipoic Acid 600 mg oral capsule) 1 cap(s) Oral every day. ALPRAZolam (Xanax 1 mg oral tablet) 1 tab(s) PO QID PRN anxiety. ARIPiprazole (Abilify 10 mg oral tablet) 1 tab(s) Oral every day. ascorbic acid (Vitamin C 1000 mg oral tablet) 1 tab(s) Oral every day. aspirin 81 Milligram Oral At bedtime. atogepant (Qulipta 60 mg oral tablet) 1 tab(s) Oral every day. atorvastatin (Lipitor 40 mg oral tablet) 1 tab(s) Oral every day. HS. calcium-vitamin D (Caltrate 600 + D oral tablet) 1 tab(s) Oral 2 times a day. cholecalciferol (Vitamin D3 2000 intl units oral tablet) 1 tab(s) Oral every day. clopidogrel (clopidogrel 75 mg oral tablet) 1 tab(s) Oral every day. TAKE 1 TABLET BY MOUTH EVERY MORNING. dapagliflozin (Farxiga 10 mg oral tablet) every day. dihydroergotamine (DHEA) 1 mg SQ PRN. estradiol (estradiol 1 mg oral tablet) 1 tab(s) Oral every day. eszopiclone (Lunesta) 3 Milligram Oral once a day (at bedtime). fenofibrate (fenofibrate 160 mg oral tablet) 1 tab(s) Oral every day. furosemide (furosemide 40 mg oral tablet) 1 tab(s) Oral every day. glipiZIDE (glipiZIDE 10 mg oral tablet) 1 tab(s) Oral every day. TAKE 1 TABLET BY MOUTH DAILY. hydrochlorothiazide- lisinopril (hydrochlorothiazide -lisinopril 12.5 mg-10 mg oral tablet) 1 tab(s) Oral every day. PRN. hydrOXYzine (Atarax) 50 Milligram Oral every day. HS. insulin aspart (NovoLOG) 4 unit(s) Subcutaneous 3 times a day before meals. following sliding scale. insulin glargine (Lantus) See Instructions. 40 units SubQ BID. ketorolac (Toradol IM) 30 Milligram Intramuscular every 6 hours. PRN migraines. lamoTRIgine (LaMICtal 150 mg oral tablet) 1 tab(s) Oral every day. magnesium oxide (magnesium oxide 400 mg oral tablet) 1 tab(s) Oral every day. magnesium oxide (magnesium oxide 400 mg oral tablet) 1 tab(s) Oral every day. meclizine 25 mg PO Q6H PRN vertigo. metFORMIN 1,000 Milligram Oral 2 times a day. metoclopramide (Reglan) 1 tab QID. metoprolol (Metoprolol Succinate ER 25 mg oral tablet, extended release) 0.5 tab(s) Oral every day. TAKE 1/2 (ONE-HALF) OF A TABLET BY MOUTH IN THE MORNING DO not crush or chew. Misc Prescription (DME: Upright walker) Diag (more content not included)... Normal [facility] Urgent Care Note- Provideron 09-20-2022 Urgent Care Note- Provider Patient: JACQUELYN ZENG Age: 47 years Sex: FEMALE : 1975 Associated Diagnoses: Occipital neuralgia; C6 radiculopathy; Cervicogenic headache; Post concussive syndrome; Thoracic sprain; Left knee sprain; Capsulitis, adhesive shoulder; Optic nerve disorder; Lumbar strain; Strain of right hip; Strain of left hip Author: Elmo Solano PA-C Basic Information Additional information: Chief Complaint from Nursing Triage Note : Chief Complaint 09/20/2022 9:15 EDT Chief Complaint [facility] f/u appt . History of Present Illness OCCUPATIONAL HEALTH FOLLOW-UP Date of injury: 01/24/16 Claim #: [id number] Employer: [employer] Mechanism of Injury: She tripped and fell on a wet floor at work and hit her head, landing on her left side. Diagnosis: Head injury (S09.90XA), Left ulnar fracture (S52.045A), Occipital Neuralgia (M54.81), Post concussive syndrome (F07.81), Cervicogenic headache (G44.89), Ulnar neuropathy (G56.22), Cervical sprain (S13.4XXA), Right hip strain (S76.011A), Left hip strain (S76.012A), Cervical C6 radiculopathy (M54.12), Left knee sprain, Left Shoulder Sprain This is a 47 year old here today in follow-up for her work related injury. Jacquelyn transferred care to us from the [facility] in September 2018. 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 Shortly after the fall she developed a severe headache. She was evaluated and found to have a head injury with a normal head CT and a fracture of the left elbow. Her head injury has been complicated by persisting vertigo, double vision, head and neck pain, and memory problems. She states initially she could not drive to work without pulling over to vomit. Starting in 2016, she was told there was no further light duty available and she has not worked since. Since that time she has continued to demonstrate poor balance with intermittent falls, and chronic neck, back and joint pains. In addition to that, she has had several falls with additional injuries that she relates to her vertigo. In Feb 2018 she fell down 22 stairs at her house, again striking her head. She was seen here in March after yet another fall with left shoulder sprain and left knee sprain, which is now allowed on her claim. X-rays were non acute. She has since had difficulty with raising her left shoulder above her head which makes it more difficult for her to steady herself when she feels she might fall. She states she stumbles daily, usually catching herself as she uses a stand up walker. Right now her primary complaints are bilateral shoulder discomfort with difficulty raising her arms above her head. She continues with vertigo, especially with turning her head quickly, and when her neck pain is exacerbated. This has somewhat minimized with both vestibular therapy and vision therapy, but has increased again since they are limited her massotherapy/chiropr actic care/acupuncture. On occasion, her left knee will buckle, causing her to stumble. MRI of her left shoulder and left knee were finally allowed and performed at [facility]. She was allowed an injection into her right shoulder which she found slightly helpful, but then PT was denied. She states no further treatment with the left shoulder or knee has been allowed. They would like to repeat the injection but this has been denied. She states ortho follow-up with Dr. Patterson, has been delayed recently due to need a coronary stent and surgery to remove some lipomas on her back. She was making progress with chiropractic visits, massotherapy, acupuncture and PT, but then she had a huge setback when these were all denied recently. Hearing went in her favor and treatment has started back up, but her massotherapist has been out on a medical leave and it has taken her several weeks to find another provider who accepts [facility]. She has had MRI c-spine, but I see additional conditions were dismissed. Historically lumbar and cervical disc conditions have been disallowed, and she continues to see Dr. Arce for this. He did Botox and deep piercings outside of the claim which have been somewhat helpful. She is also supplementing her care with medical marijuana, but as of late has been trying to use less of this. It's expensive and she dislikes the side effects. She has quit all smoking lately. With this, pain has greatly increased in her head, neck, shoulders and back. In addition to that, she was accepted into [facility]'s intensive pain management program but it was denied by [facility]. She denies any saddle anesthesia. No new numbness, tingling or weakness in her lower extremities. It is obviously difficult to drive with these symptoms. Her requires FMLA to help her. She no longer can do laundry at home because it is too difficult for her to walk steps, especially carrying laundry. She uses a service dog which helps to some degree. She reports cervicogenic migraines daily. She sees pain management Dr. Rogers (more content not included)... Normal [facility] Urgent Care [place] 023 Urgent Care Record [facility] ? Urgent Care [address] [place] [address] PATIENT DISCHARGE INSTRUCTIONS Patient Information Name: JACQUELYN ZENG Age: 47 Years Date of : 1975 Reason For Visit: Medical screening exam; [facility] F/U-HEAD, NECK, LT ARM Arrival Time: 09/20/2022 09:06:54 Primary Care Physician: JOSH OCHOA Attending Physician: Elmo Solano PA-C Comment: Visit Diagnosis: Diagnoses This Visit C6 radiculopathy (M54.12) Capsulitis, adhesive shoulder (M75.00) Cervicogenic headache (G44.86) Left knee sprain (S83.92XA) Lumbar strain (S39.012A) Medical screening exam ([id number]) Occipital neuralgia (M54.81) 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 Do not drive a car. ? Do not operate machinery such as power tools, lawn mowers, drills, sewing machines, or stoves ? Avoid alcoholic beverages and drugs for allergies, nerves, or sleep ? Do not make important personal or business decisions or sign any legal documents With: Address: When: Return to this practice Comments: SatDecember 19 at 10:30 am Medication Information: The exam and treatment you received today in the [facility] Care were for an urgent problem and are not intended as complete care. It is important for you to follow up with a doctor, nurse practitioner, or physician?s periodicals library assistant for ongoing care. If your symptoms become worse or you do not improve as expected and you are unable to reach your usual health care provider, you should return to the Emergency Department, we are available 24 hours a day. For those patients who have received Radiology results, the interpretation of your X-ray as given to you by our Urgent Care physician is only a preliminary report. The Radiologist will review your films and if there is a change in the diagnosis you will be notified by phone. Please make sure you have provided a working phone number so we can reach you if necessary. In the event that you had a lab culture while you were a patient in the Urgent Care, you will be notified by phone if there is a need to change your antibiotic. Please make sure you have provided a working phone number so we can reach you if necessary. [facility] Care has provided you with a complete list of medications post discharge. Please inform your sequins slinger/provider of your visit and for further instruction on these medications. Any specific questions regarding your chronic medications and dosages should be discussed with your primary care physician(s) and/or pharmacist. New Medications [facility], [address] [place] [id number], [phone] oxyCODONE (oxyCODONE 5 mg oral tablet) 1 tab(s) Oral every day as needed for pain for 30 Days. Claim [id number] DOI 01/24/16 FILL 10/21/22. Refills: 0. oxyCODONE (oxyCODONE 5 mg oral tablet) 1 tab(s) Oral every day as needed for pain for 30 Days. Claim [id number] DOI 01/24/16. Refills: 0. oxyCODONE (oxyCODONE 5 mg oral tablet) 1 tab(s) Oral every day as needed for pain for 30 Days. Claim [id number] DOI 01/24/16 FILL 11/20/22. Refills: 0. Additional medications on your home medication list not specifically addressed. Please contact the ordering physician if you have questions about these medications. alpha-lipoic acid (Alpha Lipoic Acid 600 mg oral capsule) 1 cap(s) Oral every day. ALPRAZolam (Xanax 1 mg oral tablet) 1 tab(s) PO QID PRN anxiety. ARIPiprazole (Abilify 10 mg oral tablet) 1 tab(s) Oral every day. ascorbic acid (Vitamin C 1000 mg oral tablet) 1 tab(s) Oral every day. aspirin 81 Milligram Oral At bedtime. atogepant (Qulipta 60 mg oral tablet) 1 tab(s) Oral every day. atorvastatin (Lipitor 40 mg oral tablet) 1 tab(s) Oral every day. HS. calcium-vitamin D (Caltrate 600 + D oral tablet) 1 tab(s) Oral 2 times a day. cholecalciferol (Vitamin D3 2000 intl units oral tablet) 1 tab(s) Oral every day. clopidogrel (clopidogrel 75 mg oral tablet) 1 tab(s) Oral every day. TAKE 1 TABLET BY MOUTH EVERY MORNING. dapagliflozin (Farxiga 10 mg oral tablet) every day. dihydroergotamine (DHEA) 1 mg SQ PRN. estradiol (estradiol 1 mg oral tablet) 1 tab(s) Oral every day. eszopiclone (Lunesta) 3 Milligram Oral once a day (at bedtime). fenofibrate (fenofibrate 160 mg oral tablet) 1 tab(s) Oral every day. furosemide (furosemide 40 mg oral tablet) 1 tab(s) Oral every day. glipiZIDE (glipiZIDE 10 mg oral tablet) 1 tab(s) Oral every day. TAKE 1 TABLET BY MOUTH DAILY. hydrochlorothiazide- lisinopril (hydrochlorothiazide -lisinopril 12.5 mg-10 mg oral tablet) 1 tab(s) Oral every day. PRN. hydrOXYzine (Atarax) 50 Milligram Oral every day. HS. insu (more content not included)... Normal [facility] Glucose Glucometer (dC) [M ass/Vol]Ordered By: Lee Chowdary on 09-06-2022 Glucose [Mass/Vol] 138 mg/dL [facility] Comment on above: Random Glucose Refer ence Range is dependent on time and content of last meal. Glucose of more than 200 mg/dL in a nonstressed, ambulatory subject supports the diagnosis of Diabetes Mellitus. Glucose Poct Glucometerson 0 09-06-2022 Glucose [Mass/Vol] 138 mg/dL Normal [facility] Comment on above: Result Comment: [facility] Glucose Reference Range is dependent on time and content of last meal. Glucose of more than 200 mg/dL in a nonstressed, ambulatory subject supports the diagnosis of Diabetes Mellitus. PERFORMED BY: [facility] [address] [place] [address] PATHOLOGIST AUTOMOTIVE COLLISION ESTIMATOR SIXTO LOZANO M.D. Performed By: #### G LULS #### Point of Care testing , Glucose [Mass/Vol] 155 mg/dL Normal [facility] Comment on above: Result Comment: [facility] Glucose Reference Range is dependent on time and content of last meal. Glucose of more than 200 mg/dL in a nonstressed, ambulatory subject supports the diagnosis of Diabetes Mellitus. PERFORMED BY: [facility] [address] [place] [address] PATHOLOGIST AUTOMOTIVE COLLISION ESTIMATOR SIXTO LOZANO M.D. Performed By: #### G LULS #### Point of Care testing , HCG ( test) Ivy petersen Ql (U)Ordered By: Avinash Mays on 09-06-2022 HCG ( test) Ql (U) Negative [facility] HCG,Urineon 09-06-2022 Beta HCG ( test) Ql (U) Negative Normal [facility] Comment on above: Result Comment: PERF ORMED BY: [place] [address] PATHOLOGIST AUTOMOTIVE COLLISION ESTIMATOR SIXTO LOZANO M.D. Performed By: #### U HCG #### [place] [id number] [facility] Felipe 09-06-2022 L Specimen: [id number] Received: 09/06/22 Status: LLUVIA Mike Num: [id number] Spec Type: Surgical Subm Dr: Lee Chowdary MD Tissues: A Soft Tissue Mass - Simple Excision (except lipoma) (BACK MASS) Procedures: IVAAN, Gross/Sita L4 Age/ Patient Sex Location Account Attending Physician Jacquelyn Zeng 47/F [place] [id number] Lee Chowdary MD SPEC NUM: [id number] RECD: 09/06/22 STATUS: LULVIA GARCIA NUM: [id number] DOT: 09/06/22 DR: Lee Chowdary MD ENTERED: 09/06/[address]: MORE TYPE: Surgical DEPT: S ORDERED: HE, Gross/Micro L4 ORDERED: HE, Gross/Micro L4 Pathological Diagnosis Soft tissue, back, excision: - Mature adipose tissue, most consistent with LIPOMA. Clinical Information Back mass Gross Description Received in formalin labeled with the patient's name, number and back mass is a 4.2 x 4.0 x 2.5 cm aggregate of yellow-soto, rubbery tissue with a yellow, lobular cut surface. No discrete mass or biopsy site is identified.. Glass Loading Equipment Tender sections are submitted in one cassette labeled A1. Microscopic Description One glass slide with H E stained material has been examined. The microscopic findings support the above pathologic diagnosis. CPT Codes 37038 Specimen: [id number] Received: 09/06/22 Status: LLUVIA Garcia Num: [id number] Spec Type: Surgical Subm Dr: Lee Chowdary MD Tissues: A Soft Tissue Mass - Simple Excision (except lipoma) (BACK MASS) Procedures: HE, Gross/Micro L4 Patient: Jacquelyn Zeng [id number] (Continued) Signed (signature on file) Venita Justice MD 09/07/22 1157 [facility] Office Visiton 08-29-2022 Follow-up visit [id number] Jacquelyn Zeng 1975 F Date Provider Department Center 08/29/2022 NAE [facility] Family History Problem Relation Age of Onset Coronary artery disease Mother Heart attack Mother Cancer Mother Heart attack Father 54 Family Status - Relation Status Age at Mother Father Level of Service:08642 MO OFFICE/OUTPATIENT ESTABLISHED MOD MDM 30-39 MIN Reason for Visit and Comments: Follow-up [333175] - Cath, Echo, Stent Dizziness [471008] Palpitations [063590] Fatigue [46] Normal [facility] MG MAMM DIAGNOSTIC 3D YOUNG CA Don 04-18-2023 MG MAMM DIAGNOSTIC 3D YOUNG CAD Patient: JACQUELYN ZENG. Exam Date: 08/28/2022 : 1975 Gender:F Ordering : MARGARETTE CHEEK . Admission #: [id number] Family : Order #: [id number] CLICK HERE TO VIEW EXAM RADIOLOGY REPORT PROCEDURE: MAMMOGRAM DIAGNOSTIC 3D BILATERAL CAD, 08/28/2022, 13:43 ULTRASOUND BREAST RIGHT LIMITED, 08/28/2022, 14:30 COMPARISON: MG MAMM SCREEN YOUNG W CAD, 07/19/2020. INDICATIONS: Family history of malignant neoplasm of breast Calculator Name [facility] Breast Cancer Risk Assessment Tool 5 Year Breast Cancer Risk 1.80% Lifetime Breast Cancer Risk 18.20% Personal Breast Cancer No Personal Ovarian Cancer No Treatments Radiation Family Cancers Aunt-maternal with breast cancer at age 42; Aunt-maternal with breast cancer at age 46; Aunt-maternal with breast cancer at age 54; Mother with breast cancer at age 45; Mother with lung cancer at age 70; Uncle-maternal with lung cancer at age 55; Uncle-maternal with lung cancer at age 57; Father with colon cancer at age 54. LOCATION: [facility] BREAST COMPOSITION: Scattered areas fibroglandular density. FINDINGS: DIAGNOSTIC CATEGORY 2--BENIGN FINDING: RIGHT BREAST: A skin surface marker is present over the upper axillary tail which localizes patient's palpable lump; no suspicious mammographic abnormality. Ultrasound evaluation demonstrates a small questionable lesion within the subcutaneous fat which appears to have a tract extending to the skin; possible obstructed sebaceous gland cyst. Clinical follow-up is recommended. Follow-up ultrasound could be performed to document clearing if needed. LEFT BREAST: No significant suspicious finding. No significant change has occurred. RECOMMENDATIONS: ROUTINE MAMMOGRAM AND CLINICAL EVALUATION IN 12 MONTHS. PLEASE NOTE: A NORMAL MAMMOGRAM DOES NOT EXCLUDE THE POSSIBILITY OF BREAST CANCER. A CLINICALLY SUSPICIOUS PALPABLE LUMP SHOULD BE BIOPSIED. Dictated by: Bartolome Rodriguez M.D. on 08/28/2022 at 14:50 Approved by: Bartolome Rodriguez M.D. on 08/28/2022 at 14:[address] [facility] US BREAST RIGHT LIMITEDon US BREAST RIGHT LIMITED Patient: JACQUELYN ZENG. Exam Date: 08/28/2022 : 1975 Gender:F Ordering : MARGARETTE CHEEK . Admission #: [id number] Family : Order #: [id number] CLICK HERE TO VIEW EXAM RADIOLOGY REPORT PROCEDURE: MAMMOGRAM DIAGNOSTIC 3D BILATERAL CAD, 08/28/2022, 13:43 ULTRASOUND BREAST RIGHT LIMITED, 08/28/2022, 14:30 COMPARISON: MG MAMM SCREEN YOUNG W CAD, 07/19/2020. INDICATIONS: Family history of malignant neoplasm of breast Calculator Name NCI Breast Cancer Risk Assessment Tool 5 Year Breast Cancer Risk 1.80% Lifetime Breast Cancer Risk 18.20% Personal Breast Cancer No Personal Ovarian Cancer No Treatments Radiation Family Cancers Aunt-maternal with breast cancer at age 42; Aunt-maternal with breast cancer at age 46; Aunt-maternal with breast cancer at age 54; Mother with breast cancer at age 45; Mother with lung cancer at age 70; Uncle-maternal with lung cancer at age 55; Uncle-maternal with lung cancer at age 57; Father with colon cancer at age 54. LOCATION: [facility] BREAST COMPOSITION: Scattered areas fibroglandular density. FINDINGS: DIAGNOSTIC CATEGORY 2--BENIGN FINDING: RIGHT BREAST: A skin surface marker is present over the upper axillary tail which localizes patient's palpable lump; no suspicious mammographic abnormality. Ultrasound evaluation demonstrates a small questionable lesion within the subcutaneous fat which appears to have a tract extending to the skin; possible obstructed sebaceous gland cyst. Clinical follow-up is recommended. Follow-up ultrasound could be performed to document clearing if needed. LEFT BREAST: No significant suspicious finding. No significant change has occurred. RECOMMENDATIONS: ROUTINE MAMMOGRAM AND CLINICAL EVALUATION IN 12 MONTHS. PLEASE NOTE: A NORMAL MAMMOGRAM DOES NOT EXCLUDE THE POSSIBILITY OF BREAST CANCER. A CLINICALLY SUSPICIOUS PALPABLE LUMP SHOULD BE BIOPSIED. Dictated by: Bartolome Rodriguez M.D. on 08/28/2022 at 14:50 Approved by: Bartolome Rodriguez M.D. on 08/28/2022 at 14:[address] [facility] Basic Metabolic Panelon 04- Anion gap [Moles/Vol] 13.4 mmol/L Normal 6.0-15.0 [facility] Comment on above: Performed By: #### B #### [address] Calcium [Mass/Vol] 9.8 mg/dL Normal 8.6-10.3 [facility] Comment on above: Result Comment: PERF ORMED BY: [place] [address] PATHOLOGIST AUTOMOTIVE COLLISION ESTIMATOR SIXTO LOZANO M.D. Performed By: #### B MP #### [place] [address] [place] Chloride [Moles/Vol] 99 mmol/L Normal 98-107 [facility] Comment on above: Performed By: #### B MP #### [place] [address] [place] CO2 [Moles/Vol] 28.7 mmol/L Normal 21.0-31.0 [facility] Comment on above: Performed By: #### B MP #### [address] Creatinine [Mass/Vol] 0.80 mg/dL Normal 0.60-1.20 [facility] Comment on above: Performed By: #### B MP #### [place] [address] [place] GFR/1.73 sq M.predicted MDRD (S/P/Bld) [Vol rate/Area] mL/min/{1.73_m2} Normal [facility] Comment on above: Performed By: #### B MP #### [place] [address] [place] Glucose [Mass/Vol] 126 mg/dL High 70-100 [facility] Comment on above: Result Comment: [place] Glucose Reference Range is dependent on time and content of last meal. Glucose of more than 200 mg/dL in a nonstressed, ambulatory subject supports the diagnosis of Diabetes Mellitus. ADA recommended reference range Performed By: #### B MP #### [address] Potassium [Moles/Vol] 4.1 mmol/L Normal 3.5-5.1 [facility] Comment on above: Performed By: #### B MP #### [address] [place] [address] [place] Sodium [Moles/Vol] 137 mmol/L Normal 136-145 [facility] Comment on above: Performed By: #### B MP #### [facility] [address] Urea nitrogen [Mass/Vol] 18 mg/dL Normal 7-25 [facility] Comment on above: Performed By: #### B MP #### [facility] [address] Basophils Auto (Bld) [#/Vol] Ordered By: Lee Chowdary on 08-27-2022 Basophils (Bld) [#/Vol] 0.2 10*3/uL 0.0-0.2 [facility] Basophils/100 WBC Auto (Bld) Ordered By: Lee Chowdary on 08-27-2022 Basophils/100 WBC (Bld) 1.4 % . [facility] Calcium [Mass/volume] in Ser um or PlasmaOrdered By: Lee Chowdary on 08-27-2022 Calcium [Mass/Vol] 9.8 mg/dL 8.6-10.3 [facility] Carbon dioxide, total [Moles /volume] in Serum or PlasmaOrdered By: Lee Chowdary on 08-27-2022 CO2 [Moles/Vol] 28.7 mmol/L 21.0-31.0 [facility] Chloride [Moles/volume] in S sophia or PlasmaOrdered By: Lee Chowdary on 08-27-2022 Chloride [Moles/Vol] 99 mmol/L 98-107 [facility] Complete Blood Count Auto Di ffon 08-27-2022 Basophils (Bld) [#/Vol] 0.2 10*3/uL Normal 0.0-0.2 [facility] Comment on above: Result Comment: PERF ORMED BY: [place] [address] PATHOLOGIST AUTOMOTIVE COLLISION ESTIMATOR SIXTO LOZANO M.D. Performed By: #### C BC #### [address] Basophils/100 WBC (Bld) 1.4 % Normal . [facility] Comment on above: Performed By: #### C BC #### [facility] [address] [place] [address] [place] Eosinophils (Bld) [#/Vol] 0.5 10*3/uL High 0.0-0.45 [facility] Comment on above: Performed By: #### C BC #### [facility] [address] Eosinophils/100 WBC (Bld) 4.5 % Normal . [facility] Comment on above: Performed By: #### C BC #### [address] Erythrocyte distribution width (RBC) [Ratio] 13.4 % Normal 11.9-15.3 [facility] Comment on above: Performed By: #### C BC #### [address] Hematocrit (Bld) [Volume fraction] 42.2 % Normal 34.0-46.4 [facility] Comment on above: Performed By: #### C BC #### [address] Hemoglobin (Bld) [Mass/Vol] 14.0 g/dL Normal 11.8-15.4 [facility] Comment on above: Performed By: #### C BC #### [address] Lymphocytes (Bld) [#/Vol] 5.0 10*3/uL High 1.00-4.8 [facility] Comment on above: Performed By: #### C BC #### [place] [address] [place] Lymphocytes/100 WBC (Bld) 42.7 % Normal . [facility] Comment on above: Performed By: #### C BC #### [address] MCH (RBC) [Entitic mass] 30.3 pg Normal 24.7-34.3 [facility] Comment on above: Performed By: #### C BC #### [facility] [address] MCV (RBC) [Entitic vol] 91.0 fL Normal 80-100 [facility] Comment on above: Performed By: #### C BC #### [facility] [address] Mean Corpuscular HGB Conc 33.3 g/dL Normal 32.0-35.0 [facility] Comment on above: Performed By: #### C BC #### [facility] [address] Monocytes (Bld) [#/Vol] 1.2 10*3/uL High 0.0-0.8 [facility] Comment on above: Performed By: #### C BC #### [facility] [address] Monocytes/100 WBC (Bld) 10.0 % Normal . [facility] Comment on above: Performed By: #### C BC #### [facility] [address] Neutrophils (Bld) [#/Vol] 4.8 10*3/uL Normal 1.8-7.7 [facility] Comment on above: Performed By: #### C BC #### [facility] [address] Neutrophils/100 WBC (Bld) 41.4 % Normal . [facility] Comment on above: Performed By: #### C BC #### [facility] [address] NRBC% 0.1 /100{WBC} Normal 0-0.5 [facility] Comment on above: Performed By: #### C BC #### [facility] [address] Platelet mean volume (Bld) [Entitic vol] 8.6 fL Normal 6.3-10.7 [facility] Comment on above: Performed By: #### C BC #### [facility] [address] [place] [address] [place] Platelets (Bld) [#/Vol] 355 10*3/uL Normal 150-450 [facility] Comment on above: Performed By: #### C BC #### [facility] [address] RBC (Bld) [#/Vol] 4.64 10*6/uL Normal 3.60-5.00 [facility] Comment on above: Performed By: #### C BC #### [facility] [address] WBC (Bld) [#/Vol] 11.6 10*3/uL Normal 3.8-11.6 [facility] Comment on above: Performed By: #### C BC #### [facility] [address] Creatinine [Mass/volume] in Serum or PlasmaOrdered By: Lee Chowdary on 08-27-2022 Creatinine [Mass/Vol] 0.80 mg/dL 0.60-1.20 [facility] Eosinophils Auto (Bld) [#/Vo l]Ordered By: Lee Chowdary on 08-27-2022 Eosinophils (Bld) [#/Vol] 0.5 10*3/uL 0.0-0.45 [facility] Eosinophils/100 WBC Auto (Bl d)Ordered By: Lee Chowdary on 08-27-2022 Eosinophils/100 WBC (Bld) 4.5 % . [facility] Erythrocyte distribution wid th Auto (RBC) [Ratio]Ordered By: Lee Chowdary on 08-27-2022 Erythrocyte distribution width (RBC) [Ratio] 13.4 % 11.9-15.3 [facility] Glucose [Mass/volume] in Ser um or PlasmaOrdered By: Lee Chowdary on 08-27-2022 Glucose [Mass/Vol] 126 mg/dL 70-100 [facility] Comment on above: ADA recommended refe rence rangeRandom Glucose Reference Range is dependent on time and content of last meal. Glucose of more than 200 mg/dL in a nonstressed, ambulatory subject supports the diagnosis of Diabetes Mellitus. Hematocrit Auto (Bld) [Volum e fraction]Ordered By: Lee Chowdary on 08-27-2022 Hematocrit (Bld) [Volume fraction] 42.2 % 34.0-46.4 [facility] Hemoglobin [Mass/volume] in BloodOrdered By: Lee Chowdary on 08-27-2022 Hemoglobin (Bld) [Mass/Vol] 14.0 g/dL 11.8-15.4 [facility] Leukocytes [#/volume] correc imer for nucleated erythrocytes in Blood by Automated counOrdered By: Lee Chowdary on 08-27-2022 WBC corrected for nucl RBC Auto (Bld) [#/Vol] 11.6 10*3/uL 3.8-11.6 [facility] Lymphocytes Auto (Bld) [#/Vo l]Ordered By: Lee Chowdary on 08-27-2022 Lymphocytes (Bld) [#/Vol] 5.0 10*3/uL 1.00-4.8 [facility] Lymphocytes/100 WBC Auto (Bl d)Ordered By: Lee Chowdary on 08-27-2022 Lymphocytes/100 WBC (Bld) 42.7 % . [facility] MCH Auto (RBC) [Entitic mass ]Ordered By: Lee Chowdary on 08-27-2022 MCH (RBC) [Entitic mass] 30.3 pg 24.7-34.3 [facility] MCHC Auto (RBC) [Mass/Vol]Or dered By: Lee Chowdary on 08-27-2022 MCHC (RBC) [Mass/Vol] 33.3 g/dL 32.0-35.0 [facility] MCV Auto (RBC) [Entitic vol] Ordered By: Lee Chowdary on 08-27-2022 MCV (RBC) [Entitic vol] 91.0 fL 80-100 [facility] Monocytes Auto (Bld) [#/Vol] Ordered By: Lee Chowdary on 08-27-2022 Monocytes (Bld) [#/Vol] 1.2 10*3/uL 0.0-0.8 [facility] Monocytes/100 WBC Auto (Bld) Ordered By: Lee Chowdary on 08-27-2022 Monocytes/100 WBC (Bld) 10.0 % . [facility] Neutrophils Auto (Bld) [#/Vo l]Ordered By: Lee Chowdary on 08-27-2022 Neutrophils (Bld) [#/Vol] 4.8 10*3/uL 1.8-7.7 [facility] Neutrophils/100 WBC Auto (Bl d)Ordered By: Lee Chowdary on 08-27-2022 Neutrophils/100 WBC (Bld) 41.4 % . [facility] No Panel InformationOrdered By: Lee Chowdary on 08-27-2022 Estimated GFR (CKD-EPI) > 60.0 mL/Min [facility] Creatinine Clearance (Chem N/A [facility] Nucleated erythrocytes [Pres ence] in Blood by Automated countOrdered By: Lee Chowdary on 08-27-2022 Nucleated RBC Auto Ql (Bld) 0.1 /100{WBC} 0-0.5 [facility] Platelet mean volume Auto (B ld) [Entitic vol]Ordered By: Lee Chowdary on 08-27-2022 Platelet mean volume (Bld) [Entitic vol] 8.6 fL 6.3-10.7 [facility] Platelets Auto (Bld) [#/Vol] Ordered By: Lee Chowdary on 08-27-2022 Platelets (Bld) [#/Vol] 355 10*3/uL 150-450 [facility] Potassium [Moles/volume] in Serum or PlasmaOrdered By: Lee Chowdary on 08-27-2022 Potassium [Moles/Vol] 4.1 mmol/L 3.5-5.1 [facility] RBC Auto (Bld) [#/Vol]Ordere d By: Lee Chowdary on 08-27-2022 RBC (Bld) [#/Vol] 4.64 10*6/uL 3.60-5.00 [facility] Serum or plasma anion gap de terminationOrdered By: Lee Chowdary on 08-27-2022 Anion gap [Moles/Vol] 13.4 mmol/L 6.0-15.0 [facility] Sodium [Moles/volume] in Ser um or PlasmaOrdered By: Lee Chowdary on 08-27-2022 Sodium [Moles/Vol] 137 mmol/L 136-145 [facility] Urea nitrogen [Mass/volume] in Serum or PlasmaOrdered By: Lee Chowdary on 08-27-2022 Urea nitrogen [Mass/Vol] 18 mg/dL 7-25 [facility] WBC Auto (Bld) [#/Vol]Ordere d By: Lee Chowdary on 08-27-2022 WBC (Bld) [#/Vol] 11.6 10*3/uL 3.8-11.6 [facility] CBC AUTO DIFFon 07-24-2022 BASO # 0.2 103/ul Critically high 0.0-0.1 [facility] Comment on above: Performed By: #### C BC #### [facility] [address] [place] [address] Dr. Aurelio Leavitt Basophils/100 WBC (Bld) 1.4 % Normal 0.2-2.0 [facility] Comment on above: Performed By: #### C BC #### [facility] [address] [address] [address] Aurelio Laevitt EO # 0.7 103/ul Normal 0.0-0.7 [facility] Comment on above: Performed By: #### C BC #### [facility] [address] [address] [address] Aurelio Leavitt Eosinophils/100 WBC (Bld) 4.5 % Normal 0.9-7.0 [facility] Comment on above: Performed By: #### C BC #### [facility] [address] [address] [address] Aurelio Leavitt Erythrocyte distribution width (RBC) [Ratio] 13.3 % Normal 11.0-15.0 [facility] Comment on above: Performed By: #### C BC #### [facility] [address] [address] [address] Aurelio Leavitt Hematocrit (Bld) [Volume fraction] 48.8 % Critically high 36.0-48.0 [facility] Comment on above: Performed By: #### C BC #### [facility] [address] [address] [address] Aurelio Leavitt Hemoglobin (Bld) [Mass/Vol] 16.7 g/dL Critically high 12.0-16.0 [facility] Comment on above: Performed By: #### C BC #### [facility] [address] [address] [address] Aurelio Leavitt IG # 0.06 10e3/ul Critically high 0.00-0.03 [facility] Comment on above: Performed By: #### C BC #### [facility] [address] [address] [address] Aurelio Leavitt IG % 0.4 % Normal 0.0-0.5 [facility] Comment on above: Performed By: #### C BC #### [facility] [address] [address] [address] Aurelio Leavitt LYMPH # 6.2 103/ul Critically high 1.2-3.8 [facility] Comment on above: Performed By: #### C BC #### [facility] [address] [address] [address] Aurelio Leavitt Lymphocytes/100 WBC (Bld) 42.2 % Normal 20.5-60.0 [facility] Comment on above: Performed By: #### C BC #### [facility] [address] [address] [address] Aurelio Leavitt MANUAL DIFF REQ NO Normal [facility] Comment on above: Performed By: #### C BC #### [facility] [address] [address] [address] Aurelio Leavitt MCH (RBC) [Entitic mass] 30.4 pg Normal 26.7-34.[address] [facility] Comment on above: Performed By: #### C BC #### [facility] [address] [address] [address] Aurelio Leavitt MCHC (RBC) [Mass/Vol] 34.2 g/dL Normal 29.9-35.[address] [facility] Comment on above: Performed By: #### C BC #### [facility] [address] [address] [address] Aurelio Leavitt MCV (RBC) [Entitic vol] 88.9 fL Normal 81.0-99.0 [facility] Comment on above: Performed By: #### C BC #### [facility] [address] [address] [address] Aurelio Leavitt MONO # 1.1 103/ul Critically high 0.3-0.8 [facility] Comment on above: Performed By: #### C BC #### [facility] [address] [address] [address] Aurelio Leavitt Monocytes/100 WBC (Bld) 7.2 % Normal 1.7-12.0 [facility] Comment on above: Performed By: #### C BC #### [facility] [address] [place] [address] Dr. Aurelio Leavitt NEUT # 6.5 103/ul Normal 1.4-6.5 [facility] Comment on above: Performed By: #### C BC #### [facility] [address] [address] [address] Aurelio Leavitt Neutrophils/100 WBC (Bld) 44.3 % Normal 43.0-75.0 [facility] Comment on above: Performed By: #### C BC #### [facility] [address] [address] [address] Aurelio Leavitt Platelet mean volume (Bld) [Entitic vol] 11.5 fL Normal 9.5-13.5 [facility] Comment on above: Performed By: #### C BC #### [facility] [address] [address] [address] Aurelio Leavitt PLT 350 103/ul Normal 150-[address] [facility] Comment on above: Performed By: #### C BC #### [facility] [address] [address] [address] Aurelio Leavitt RBC 5.49 106/ul Critically high 4.20-5.40 [facility] Comment on above: Performed By: #### C BC #### [facility] [address] [address] [address] Aurelio Leavitt WBC 14.6 103/ul Critically high 4.0-11.0 [facility] Comment on above: Performed By: #### C BC #### [facility] [address] [place] [address] Dr. Aurelio Leavitt DIRECT LDLon 07-24-2022 Cholesterol in LDL [Mass/Vol] 102 mg/dL Normal [facility] Comment on above: Performed By: #### C MREP #### [facility] [address] [address] [address] Aurelio Leavitt DLDL NORMAL SEE BELOW Normal [facility] Comment on above: Result Comment: <100 mg/dl OPTIMAL 100 - 129 mg/dl NEAR OR ABOVE OPTIMAL 130 - 159 mg/dl BORDERLINE HIGH 160 - 189 mg/dl HIGH >190 mg/dl VERY HIGH Performed By: #### C MREP #### [facility] [address] [place] [address] Dr. Aurelio Leavitt GLYCOHEMOGLOBIN A1Con 2022 ADA RECOMMENDATION SEE BELOW Normal [facility] Comment on above: Result Comment: ADA RECOMMENDED LIMIT 4.0 - 6.0 ADA THERAPEUTIC TARGET < 7.0 ACTION SUGGESTED > 7.0 Performed By: #### A CETON #### [facility] [address] [place] [address] Dr. Aurelio Leavitt Glucose [Mass/Vol] 266 mg/dL Normal [facility] Comment on above: Performed By: #### A CETON #### [facility] [address] [place] [address] Dr. Aurelio Leavitt HbA1c (Bld) [Mass fraction] 10.9 % Critically high 4.5-6.2 [facility] Comment on above: Performed By: #### A CETON #### [facility] [address] [place] [address] Dr. Aurelio Leavitt LIPID PROFILEon 07-24-2022 CHOL-HDL RATIO NORM SEE BELOW Normal [facility] Comment on above: Result Comment: 3.3 - 4.4 LOW RISK 4.4 - 7.1 AVERAGE RISK 7.1 - 11.0 MODERATE RISK >11.0 HIGH RISK Performed By: #### C MREP #### [facility] [address] [address] [address] Aurelio Leavitt Cholesterol [Mass/Vol] 257 mg/dL Critically high <=200 [facility] Comment on above: Performed By: #### C MREP #### [facility] [address] [address] [address] Aurelio Leavitt Cholesterol in HDL [Mass/Vol] 34 mg/dL Critically low 40-60 [facility] Comment on above: Performed By: #### C MREP #### [facility] [address] [place] [address] Dr. Aurelio Leavitt Cholesterol.total/Linda sterol in HDL [Mass ratio] 7.6 {ratio} Normal [facility] Comment on above: Performed By: #### C MREP #### [facility] [address] [place] [address] Dr. Aurelio Leavitt HDL NORMAL > or = 60 mg/dl - LOW CARDIOVASCULAR RISK <40 mg/dl - HIGH CARDIOVASCULAR RISK Normal [facility] Comment on above: Performed By: #### C MREP #### [facility] [address] [place] [address] Dr. Aurelio Leavitt LDL CALC NORMAL SEE BELOW Normal [facility] Comment on above: Result Comment: <100 mg/dl OPTIMAL 100 - 129 mg/dl NEAR OR ABOVE OPTIMAL 130 - 159 mg/dl BORDERLINE HIGH 160 - 189 mg/dl HIGH >190 mg/dl VERY HIGH Performed By: #### C MREP #### [facility] [address] [place] [address] Dr. Aurelio Leavitt Triglyceride [Mass/Vol] 934 mg/dL Critically high <=150 [facility] Comment on above: Performed By: #### C MREP #### [facility] [address] [place] [address] Dr. Aurelio Leavitt VLDL CALC 186.8 mg/dL Normal [facility] Comment on above: Performed By: #### C MREP #### [facility] [address] [place] [address] Dr. Aurelio Leavitt LIVER PROFILEon 07-24-2022 Albumin [Mass/Vol] 4.2 g/dL Normal 3.4-5.0 [facility] Comment on above: Performed By: #### C MREP #### [facility] [address] [place] [address] Dr. Aurelio Leavitt Albumin/Globulin [Mass ratio] 1.2 {ratio} Normal [facility] Comment on above: Performed By: #### C MREP #### [facility] [address] [place] [address] Dr. Aurelio Leavitt ALP [Catalytic activity/Vol] 127 U/L Critically high 46-116 [facility] Comment on above: Performed By: #### C MREP #### [facility] [address] [place] [address] Dr. Aurelio Leavitt ALT [Catalytic activity/Vol] 33 U/L Normal 14-59 [facility] Comment on above: Performed By: #### C MREP #### [facility] [address] [place] [address] Dr. Aurelio Leavitt AST [Catalytic activity/Vol] 14 U/L Critically low 15-37 [facility] Comment on above: Performed By: #### C MREP #### [facility] [address] [place] [address] Dr. Aurelio Leavitt BILI, CONJUGATED 0.1 mg/dL Normal 0.0-0.2 [facility] Comment on above: Performed By: #### C MREP #### [facility] [address] [place] [address] Dr. Aurelio Leavitt Bilirubin [Mass/Vol] 0.2 mg/dL Normal 0.2-1.0 [facility] Comment on above: Performed By: #### C MREP #### [facility] [address] [place] [address] Dr. Aurelio Leavitt Globulin (S) [Mass/Vol] 3.5 g/dL Normal [facility] Comment on above: Performed By: #### C MREP #### [facility] [address] [place] [address] Dr. Aurelio Leavitt Protein [Mass/Vol] 7.7 g/dL Normal 6.4-8.2 [facility] Comment on above: Performed By: #### C MREP #### [facility] [address] [address] [address] Aurelio Leavitt PROF CHEM 8 (BAS METB)on Anion gap [Moles/Vol] 10.4 mmol/L Normal [facility] Comment on above: Performed By: #### C MREP #### [facility] [address] [place] [address] Dr. Aurelio Leavitt Calcium [Mass/Vol] 9.5 mg/dL Normal 8.5-10.1 [facility] Comment on above: Performed By: #### C MREP #### [facility] [address] [place] [address] Dr. Aurelio Leavitt Chloride [Moles/Vol] 97 mmol/L Critically low 98-107 [facility] Comment on above: Performed By: #### C MREP #### [facility] [address] [place] [address] Dr. Aurelio Leavitt CO2 [Moles/Vol] 30.3 mmol/L Normal 21.0-32.0 [facility] Comment on above: Performed By: #### C MREP #### [facility] [address] [place] [address] Dr. Aurelio Leavitt Creatinine [Mass/Vol] 0.62 mg/dL Normal 0.55-1.02 [facility] Comment on above: Performed By: #### C MREP #### [facility] [address] [place] [address] Dr. Aurelio Leavitt EGFR-AF CHADIAN 60 mL/min/1.73m2 Normal >=60 [facility] Comment on above: Performed By: #### C MREP #### [facility] [address] [place] [address] Dr. Aurelio Leavitt EGFR-NON AF CHADIAN 60 mL/min/1.73m2 Normal >=60 [facility] Comment on above: Performed By: #### C MREP #### [facility] [address] [place] [address] Dr. Aurelio Leavitt Glucose [Mass/Vol] 252 mg/dL Critically high 74-[address] [facility] Comment on above: Performed By: #### C MREP #### [facility] [address] [place] [address] Dr. Aurelio Leavitt Potassium [Moles/Vol] 3.7 mmol/L Normal 3.5-5.1 [facility] Comment on above: Performed By: #### C MREP #### [facility] [address] [place] [address] Dr. Aurelio Leavitt Sodium [Moles/Vol] 134 mmol/L Critically low 136-145 [facility] Comment on above: Performed By: #### C MREP #### [facility] [address] [place] [address] Dr. Aurelio Leavitt Urea nitrogen [Mass/Vol] 13.0 mg/dL Normal 7.0-18.0 [facility] Comment on above: Performed By: #### C MREP #### [facility] [address] [place] [address] Dr. Aurelio Leavitt Urea nitrogen/Creatinine [Mass ratio] 21.0 mg/mg Normal [facility] Comment on above: Performed By: #### C MREP #### [facility] [address] [place] [address] Dr. Aurelio Leavitt TSHon 07-24-2022 TSH 2.102 uIU/mL Normal 0.358-3.740 [facility] Comment on above: Performed By: #### C MREP #### [facility] [address] [place] [address] Dr. Aurelio Leavitt US CHESTon 07-10-2022 US CHEST EXAM: US CHEST HISTORY: Mass of trunk COMPARISON: None. TECHNIQUE: A scale and color ultrasound FINDINGS: Identified in the left upper back is a 2.0 x 0.6 x 1.6 cm area of oval hypoechogenicity heterogeneous, smooth margins with slightly lobular contour, hypovascular to the surrounding soft tissue. IMPRESSION: 2 cm area of hypoechogenicity, nonspecific, possibly representing a lipoma Electronically authenticated by: AVINASH SERRATO Date: 2022-07-10 16:41 Normal [facility] NM STRESS/REST MULTIon 06-26 NM STRESS/REST MULTI Patient: BOB ZENG. Exam Date: 06/26/2022 : 1975 Gender:F Ordering : DR JOSH OCHOA . Admission #: [id number] Family : Order #: [id number] CLICK HERE TO VIEW EXAM RADIOLOGY REPORT PROCEDURE: RADIONUCLIDE IMAGING STRESS/REST MULTI COMPARISON: None. INDICATIONS: Chest pain TECHNIQUE: Exam Description: Stress/Rest one day protocol gated SPECT Rest Imagin.8 mCi Tc-99m Cardiolite IV on 06/26/2022 Stress Imaging 28.7 mCi Tc-99m Cardiolite IV on 06/26/2022 Exercise Protocol: 0.4 mg Lexiscan given IV Heart Rate (bpm): Rest: 97 Max: 112 PMHR: 64 Blood Pressure: Rest: 132/90 Max: 138/82 Symptoms: Rest and peak stress ECG findings were non-diagnostic and the exercise portion of the study was abnormal per attending physician Dr. Mai due to inverted T waves in aVL. For more details please see separate cardiac stress test report. FINDINGS: QUALITY OF STUDY: Good. PERFUSION DEFECT: LOCATION: Mid-anterior. [place]. SIZE: Small (1-2 segments). SEVERITY: Mild. TYPE: Persistent. WALL MOTION: Normal. LV SIZE: Normal. 92 mL. TID / TCD: None; 1.1 LVEF: Normal. Calculated EF 68%. SUMMARY: Myocardial perfusion imaging study has ABNORMAL findings. CONCLUSION: 1. Small area of mildly decreased uptake in the mid anterior wall and apex, non-specific 2. No reversible ischemia 3. Abnormal exercise test secondary to EKG changes Dictated by: Avinash Serrato MD on 06/27/2022 at 06:01 Approved by: Avinash Serrato MD on 06/27/2022 at 06:05 Normal [facility] XR TSPINE 3 VIEWSon 06-26-19 23 XR TSPINE 3 VIEWS EXAMINATION: XR TSPINE 3 VIEWS HISTORY: Pain in thoracic spine COMPARISON: No relevant comparison available. FINDINGS: BONES: No significant spondylosis, scoliosis, fracture, or visible bony lesion. DISC SPACES: No significant disc height narrowing, subluxation, or endplate abnormality. PARASPINOUS: Negative. No paraspinous abnormality is seen. OTHER: Negative. IMPRESSION: 1. No acute bone abnormality. 2. Minimal degenerative disc disease. Electronically authenticated by: BARTOLOME RODRIGUEZ Date: 2022-06-26 09:[address] [facility] ALBUMINon 03-29-2022 Albumin [Mass/Vol] 3.5 g/dL Normal 3.4-5.0 [facility] Comment on above: Performed By: #### C MREP #### [facility] [address] [address] [address] Aurelio Leavitt AMYLASEon 03-29-2022 Amylase [Catalytic activity/Vol] 27 U/L Normal 25-[address] [facility] Comment on above: Performed By: #### A MY, LIPA, CMADM #### [facility] [address] [address] [address] Aurelio Leavitt Albumin [Mass/volume] in Ser um or PlasmaOrdered By: Marie Elias on 03-29-2022 Albumin [Mass/Vol] 3.5 g/dL 3.2-5.5 [facility] Amylaseon 03-29-2022 Amylase [Catalytic activity/Vol] 29 U/L Normal 28-100 [facility] Comment on above: Order Comment: [facility] Performed By: #### C MP, JACQUELYN, LIPASE #### [facility] [address] CARDIAC FANNY 3-6on 2 CK [Catalytic activity/Vol] 107 U/L Normal 26-[address] [facility] Comment on above: Performed By: #### C MREP #### [facility] [address] [address] [address] Aurelio Leavitt CK.MB [Mass/Vol] 1.04 ng/mL Normal <=3.60 [facility] Comment on above: Performed By: #### C MREP #### [facility] [address] [address] [address] Aurelio Leavitt HSTROP 5.8 pg/mL Normal 4.0-51.[address] [facility] Comment on above: Result Comment: CUT- OFF POINTS HAVE BEEN ESTABLISHED BASED ON THE FOURTH UNIVERSAL DEFINITIONS OF MYOCARDIAL INFARCTION. THE UPPER REFERENCE LIMIT (URL) OF TROPONIN, DEFINED THE 99TH PERCENTILE OF cTnI DISTRIBUTION IN A REFERENCE POPULATION, HAS BEEN CONFIRMED THE DECISION THRESHOLD FOR [place] DIAGNOSIS. Performed By: #### C MREP #### [facility] [address] [place] [address] Dr. Aurelio Leavitt CARDIAC FANNY ADMITon 022 CK [Catalytic activity/Vol] 96 U/L Normal 26-192 [facility] Comment on above: Performed By: #### A TU ANTONIO CMADM #### [facility] [address] [place] [address] Dr. Aurelio Leavitt CK.MB [Mass/Vol] 0.89 ng/mL Normal <=3.60 [facility] Comment on above: Performed By: #### A TU ANTONIO CMADM #### [facility] [address] [place] [address] Dr. Aurelio Leavitt HSTROP 5.7 pg/mL Normal 4.0-51.3 [facility] Comment on above: Result Comment: CUT- OFF POINTS HAVE BEEN ESTABLISHED BASED ON THE FOURTH UNIVERSAL DEFINITIONS OF MYOCARDIAL INFARCTION. THE UPPER REFERENCE LIMIT (URL) OF TROPONIN, DEFINED THE 99TH PERCENTILE OF cTnI DISTRIBUTION IN A REFERENCE POPULATION, HAS BEEN CONFIRMED THE DECISION THRESHOLD FOR [place] DIAGNOSIS. Performed By: #### A TU ANTONIO, KARTHIKDM #### [facility] [address] [place] [address] Dr. Aurelio Leavitt ROMULO 24 ng/mL Normal 9-[address] [facility] Comment on above: Performed By: #### A TU ANTONIO CMADM #### [facility] [address] [place] [address] Dr. Aurelio Leavitt CBC AUTO DIFFon 03-29-2022 BASO # 0.1 103/ul Normal 0.0-0.1 [facility] Comment on above: Performed By: #### C BC #### [facility] [address] [place] [address] Dr. Aurelio Leavitt Basophils/100 WBC (Bld) 1.1 % Normal 0.2-2.0 [facility] Comment on above: Performed By: #### C BC #### [facility] [address] [place] [address] Dr. Aurelio Leavitt EO # 0.2 103/ul Normal 0.0-0.7 [facility] Comment on above: Performed By: #### C BC #### [facility] [address] [place] [address] Dr. Aurelio Leavitt Eosinophils/100 WBC (Bld) 2.9 % Normal 0.9-7.0 [facility] Comment on above: Performed By: #### C BC #### [facility] [address] [place] [address] Dr. Aurelio Leavitt Erythrocyte distribution width (RBC) [Ratio] 13.2 % Normal 11.0-15.0 [facility] Comment on above: Performed By: #### C BC #### [facility] [address] [place] [address] Dr. Aurelio Leavitt Hematocrit (Bld) [Volume fraction] 45.2 % Normal 36.0-48.0 [facility] Comment on above: Performed By: #### C BC #### [facility] [address] [place] [address] Dr. Aurelio Leavitt Hemoglobin (Bld) [Mass/Vol] 16.3 g/dL Critically high 12.0-16.0 [facility] Comment on above: Performed By: #### C BC #### [facility] [address] [place] [address] Dr. Aurelio Leavitt IG # 0.02 10e3/ul Normal 0.00-0.[address] [facility] Comment on above: Performed By: #### C BC #### [facility] [address] [place] [address] Dr. Aurelio Leavitt IG % 0.3 % Normal 0.0-0.[address] [facility] Comment on above: Performed By: #### C BC #### [facility] [address] [place] [address] Dr. Aurelio Leavitt LYMPH # 3.8 103/ul Normal 1.2-3.[address] [facility] Comment on above: Performed By: #### C BC #### [facility] [address] [place] [address] Dr. Aurelio Leavitt Lymphocytes/100 WBC (Bld) 51.4 % Normal 20.5-60.0 [facility] Comment on above: Performed By: #### C BC #### [facility] [address] [place] [address] Dr. Aurelio Leavitt MANUAL DIFF REQ NO Normal [facility] Comment on above: Performed By: #### C BC #### [facility] [address] [place] [address] Dr. Aurelio Leavitt MCH (RBC) [Entitic mass] 32.8 pg Normal 26.7-34.0 [facility] Comment on above: Performed By: #### C BC #### [facility] [address] [place] [address] Dr. Aurelio Leavitt MCHC (RBC) [Mass/Vol] 36.1 g/dL Critically high 29.9-35.2 [facility] Comment on above: Performed By: #### C BC #### [facility] [address] [place] [address] Dr. Aurelio Leavitt MCV (RBC) [Entitic vol] 90.9 fL Normal 81.0-99.0 [facility] Comment on above: Performed By: #### C BC #### [facility] [address] [place] [address] Dr. Aurelio Leavitt MONO # 0.6 103/ul Normal 0.3-0.8 [facility] Comment on above: Performed By: #### C BC #### [facility] [address] [place] [address] Dr. Aurelio Leavitt Monocytes/100 WBC (Bld) 8.0 % Normal 1.7-12.0 [facility] Comment on above: Performed By: #### C BC #### [facility] [address] [place] [address] Dr. Aurelio Leavitt NEUT # 2.7 103/ul Normal 1.4-6.5 [facility] Comment on above: Performed By: #### C BC #### [facility] [address] [address] [address] Aurelio Leavitt Neutrophils/100 WBC (Bld) 36.3 % Critically low 43.0-75.0 [facility] Comment on above: Performed By: #### C BC #### [facility] [address] [address] [address] Aurelio Leavitt Platelet mean volume (Bld) [Entitic vol] 11.5 fL Normal 9.5-13.5 [facility] Comment on above: Performed By: #### C BC #### [facility] [address] [address] [address] Aurelio Leavitt PLT 246 103/ul Normal 150-450 [facility] Comment on above: Performed By: #### C BC #### [facility] [address] [place] [address] Dr. Aurelio Leavitt RBC 4.97 106/ul Normal 4.20-5.40 [facility] Comment on above: Performed By: #### C BC #### [facility] [address] [address] [address] Aurelio Leavitt WBC 7.4 103/ul Normal 4.0-11.0 [facility] Comment on above: Performed By: #### C BC #### [facility] [address] [address] [address] Aurelio Leavitt Comprehensive Metabolic Pane felipe 03-29-2022 Alanine Aminotransferase Normal 10-60 [facility] Comment on above: Order Comment: [facility] Result Comment: Spec imen hemolyzed, redraw requested Performed By: #### C MP, JACQUELYN, LIPASE #### [facility] [address] [place] [address] [place] Albumin [Mass/Vol] 3.5 g/dL Normal 3.2-5.5 [facility] Comment on above: Order Comment: [facility] Performed By: #### C MP, JACQUELYN, LIPASE #### [facility] [address] [id number] [place] Albumin/Globulin [Mass ratio] 1.3 {ratio} Normal [facility] Comment on above: Order Comment: [facility] Performed By: #### C MP, JACQUELYN, LIPASE #### [facility] [address] Alkaline Phosphatase Normal 32-92 [facility] Comment on above: Order Comment: [facility] Result Comment: Spec imen hemolyzed, redraw requested Performed By: #### C MP, JACQUELYN, LIPASE #### [facility] [address] Anion gap [Moles/Vol] Not performed Normal 6.0-15.0 [facility] Comment on above: Order Comment: [facility] Performed By: #### C MP, JACQUELYN, LIPASE #### [facility] [address] Aspartate Amino Transferase Normal 10-42 [facility] Comment on above: Order Comment: [facility] Result Comment: Spec imen hemolyzed, redraw requested Performed By: #### C MP, JACQUELYN, LIPASE #### [address] Bilirubin,Total Normal 0.3-1.2 [facility] Comment on above: Order Comment: [facility] Result Comment: Spec imen hemolyzed, redraw requested Performed By: #### C MP, JACQUELYN, LIPASE #### [address] Calcium [Mass/Vol] 8.8 mg/dL Normal 8.2-10.2 [facility] Comment on above: Order Comment: [facility] Performed By: #### C MP, JACQUELYN, LIPASE #### [facility] [address] [place] [address] Chloride [Moles/Vol] 101 mmol/L Normal 95-114 [facility] Comment on above: Order Comment: [facility] Performed By: #### C MP, JACQUELYN, LIPASE #### [address] CO2 [Moles/Vol] 21.3 mmol/L Low 22.0-30.0 [facility] Comment on above: Order Comment: [facility] Performed By: #### C MP, JACQUELYN, LIPASE #### [facility] [address] Creatinine [Mass/Vol] 0.53 mg/dL Normal 0.44-1.03 [facility] Comment on above: Order Comment: [facility] Performed By: #### C MP, JACQUELYN, LIPASE #### [facility] [address] Estimated GFR ( Giulia > 60 Normal [facility] Comment on above: Order Comment: [facility] Result Comment: GFR estimated reference range: According to KDOQI guidelines, <60 ml/min/1.73m2 is sufficient to diagnose a patient with chronic kidney disease. Performed By: #### C MP, JACQUELYN, LIPASE #### [facility] [address] Estimated GFR (Non- Am > 60 [facility] Comment on above: Order Comment: [facility] Performed By: #### C MP, JACQUELYN, LIPASE #### [address] Globulin (S) [Mass/Vol] 2.7 g/dL Normal [facility] Comment on above: Order Comment: [facility] Performed By: #### C MP, JACQUELYN, LIPASE #### [address] Glucose [Mass/Vol] 347 mg/dL High 70-100 [facility] Comment on above: Order Comment: [facility] Result Comment: [place] Glucose Reference Range is dependent on time and content of last meal. Glucose of more than 200 mg/dL in a nonstressed, ambulatory subject supports the diagnosis of Diabetes Mellitus. ADA recommended reference range Performed By: #### C MP, JACQUELYN, LIPASE #### [facility] [address] Potassium Normal 3.5-5.1 [facility] Comment on above: Order Comment: [facility] Result Comment: Spec imen hemolyzed, redraw requested Performed By: #### C MP, JACQUELYN, LIPASE #### [facility] [address] [place] [address] [place] Protein [Mass/Vol] 6.2 g/dL Normal 6.1-7.9 [facility] Comment on above: Order Comment: [facility] Performed By: #### C MP, JACQUELYN, LIPASE #### [facility] [address] Sodium [Moles/Vol] 134 mmol/L Low 136-146 [facility] Comment on above: Order Comment: [facility] Performed By: #### C MP, JACQUELYN, LIPASE #### [facility] [address] Urea nitrogen [Mass/Vol] 8 mg/dL Low 9-23 [facility] Comment on above: Order Comment: [facility] Performed By: #### C MP, JACQUELYN, LIPASE #### [facility] [address] Creatinine and Glomerular fi ltration rate.predicted panel (S/P/Bld)Ordered By: Marie Elias on 03-29-2022 Creatinine [Mass/Vol] 0.53 mg/dL 0.44-1.03 [facility] ER URINE PROFILEon 2 Bilirubin Ql (U) Negative Normal NEGATIVE [facility] Comment on above: Performed By: #### L ACT #### [facility] [address] [place] [address] Dr. Aurelio Leavitt Clarity (U) CLEAR Normal CLEAR [facility] Comment on above: Performed By: #### L ACT #### [facility] [address] [place] [address] Dr. Aurelio Leavitt Color (U) LT. YELLOW Normal YELLOW [facility] Comment on above: Performed By: #### L ACT #### [facility] [address] [place] [address] Dr. Aurelio BRADY A micrscopic examination will be performed if indicated. Normal [facility] Comment on above: Performed By: #### L ACT #### [facility] [address] [place] [address] Dr. Aurelio Leavitt Glucose Ql (U) >1000 Abnormal NEGATIVE [facility] Comment on above: Performed By: #### L ACT #### [facility] [address] [place] [address] Dr. Aurelio Leavitt Hemoglobin Ql (U) TRACE-LYSED Abnormal NEGATIVE [facility] Comment on above: Performed By: #### L ACT #### [facility] [address] [place] [address] Dr. Aurelio Leavitt Ketones Ql (U) 15 mg/dl Abnormal NEGATIVE [facility] Comment on above: Performed By: #### L ACT #### [facility] [address] [place] [address] Dr. Aurelio Leavitt LEUKOCYTES Negative Normal NEGATIVE [facility] Comment on above: Performed By: #### L ACT #### [facility] [address] [place] [address] Dr. Aurelio Leavitt Nitrite Ql (U) Negative Normal NEGATIVE [facility] Comment on above: Performed By: #### L ACT #### [facility] [address] [place] [address] Dr. Aurelio Leavitt pH (U) 5.5 [pH] Normal 5-9 [facility] Comment on above: Performed By: #### L ACT #### [facility] [address] [place] [address] Dr. Aurelio Leavitt SPEC GRAVITY 1.020 Normal 1.005-<=1.02 5 [facility] Comment on above: Performed By: #### L ACT #### [facility] [address] [place] [address] Dr. Aurelio Leavitt UA PROTEIN Negative Normal NEGATIVE/ TRACE [facility] Comment on above: Performed By: #### L ACT #### [facility] [address] [place] [address] Dr. Aurelio Leavitt UR MICRO IND INDICATED Normal [facility] Comment on above: Performed By: #### L ACT #### [facility] [address] [place] [address] Dr. Aurelio Leavitt Urobilinogen Qn (U) 0.2 {Dalia'U}/dL Normal 0.2 - 1. 0 [facility] Comment on above: Performed By: #### L ACT #### [facility] [address] [address] [address] Aurelio Leavitt Estimated glomerular filtrat ion rate (GFR) non- AmericanOrdered By: Marie Elias on 03-29-2022 GFR/1.73 sq M.predicted among non-blacks MDRD (S/P/Bld) [Vol rate/Area] > 60 mL/Min [facility] Globulin Calc (S) [Mass/Vol] Ordered By: Marie Elias on 03-29-2022 Globulin (S) [Mass/Vol] 2.7 g/dL [facility] LACTATE/LACTIC ACIDon 2021 Lactate [Moles/Vol] 1.0 mmol/L Normal 0.4-1.9 [facility] Comment on above: Performed By: #### L ACT #### [facility] [address] [address] [address] Aurelio Leavitt LIPASEon 03-29-2022 Lipase [Catalytic activity/Vol] 139.0 U/L Normal 73.0-393.0 [facility] Comment on above: Performed By: #### A MY, LIPA, CMADM #### [facility] [address] [address] [address] Aurelio Leavitt LIVER PROFILE SEND OUTon Albumin, Serum LIPG Normal [facility] Comment on above: Result Comment: Test not performed. Specimen is grossly lipemic. Performed By: #### L ACT #### [facility] [address] [address] [address] Aurelio Leavitt ALP [Catalytic activity/Vol] 126 U/L Critically high 44-121 [facility] Comment on above: Performed By: #### L ACT #### [facility] [address] [address] [address] Aurelio Leavitt ALT [Catalytic activity/Vol] 66 U/L Critically high 0-32 [facility] Comment on above: Performed By: #### L ACT #### [facility] [address] [address] [address] Aurelio Leavitt AST [Catalytic activity/Vol] 61 U/L Critically high 0-40 [facility] Comment on above: Performed By: #### L ACT #### [facility] [address] [place], [place] [address] Dr. Aurelio Leavitt Bilirubin [Mass/Vol] mg/dL Normal 0.0-1.2 [facility] Comment on above: Performed By: #### L ACT #### [facility] [id number] Aurelio Leavitt Bilirubin, Direct LIPG Normal [facility] Comment on above: Result Comment: Test not performed. Specimen is grossly lipemic. Performed By: #### L ACT #### [facility] [id number] Aurelio Leavitt Protein [Mass/Vol] 6.5 g/dL Normal 6.0-8.5 [facility] Comment on above: Performed By: #### L ACT #### [facility] [address] [address] [address] Aurelio Leavitt Laboratory - Chemistry and C hemistry - challengeOrdered By: Marie Elias on 03-29-2022 Lipase [Catalytic activity/Vol] 42.0 U/L [facility] Lactic Acidon 03-29-2022 Lactate [Moles/Vol] 1.0 mmol/L Normal 0.5-2.2 [facility] Comment on above: Order Comment: [facility] ER Result Comment: PERF ORMED BY: [place] [address] PATHOLOGIST AUTOMOTIVE COLLISION ESTIMATOR SIXTO LOZANO M.D. Performed By: #### L ACTIC #### [place] [address] [place] Lipaseon 03-29-2022 Lipase [Catalytic activity/Vol] 42.0 U/L Normal [facility] Comment on above: Order Comment: [facility] Result Comment: PERF ORMED BY: [place] [address] PATHOLOGIST AUTOMOTIVE COLLISION ESTIMATOR SIXTO LOZANO M.D. Performed By: #### C MP, JACQUELYN, LIPASE #### [facility] [address] No Panel InformationOrdered By: Marie Elias on 03-29-2022 Estimated GFR () > 60 mL/Min [facility] Comment on above: GFR estimated refere nce range: According to KDOQI guidelines, <60 ml/min/1.73m2 is sufficient to diagnose a patient with chronic kidney disease. Pharmacy Creatinine Clearance (Chem N/A [facility] PROF CHEM 8 (BAS METB)on Anion gap [Moles/Vol] 15.8 mmol/L Normal [facility] Comment on above: Performed By: #### L ACT #### [facility] [address] [place] [address] Dr. Aurelio Leavitt Calcium [Mass/Vol] 8.8 mg/dL Normal 8.5-10.1 [facility] Comment on above: Performed By: #### L ACT #### [facility] [address] [address] [address] Aurelio Leavitt Chloride [Moles/Vol] 101 mmol/L Normal 98-107 [facility] Comment on above: Performed By: #### L ACT #### [facility] [address] [address] [address] Aurelio Leavitt CO2 [Moles/Vol] 21.3 mmol/L Normal 21.0-32.0 [facility] Comment on above: Performed By: #### L ACT #### [facility] [address] [address] [address] Aurelio Leavitt Creatinine [Mass/Vol] 0.53 mg/dL Critically low 0.55-1.02 [facility] Comment on above: Performed By: #### L ACT #### [facility] [address] [address] [address] Aurelio Leavitt EGFR-AF CHADIAN >60 Normal >=60 [facility] Comment on above: Performed By: #### L ACT #### [facility] [address] [address] [address] Aurelio Leavitt EGFR-NON AF CHADIAN >60 Normal >=60 [facility] Comment on above: Performed By: #### L ACT #### [facility] [address] [place] [address] Dr. Aurelio Leavitt Glucose [Mass/Vol] 347 mg/dL Critically high 74-106 [facility] Comment on above: Performed By: #### L ACT #### [facility] [address] [place] [address] Dr. Aurelio Leavitt Potassium [Moles/Vol] 4.1 mmol/L Normal 3.5-5.1 [facility] Comment on above: Performed By: #### L ACT #### [facility] [address] [place] [address] Dr. Aurelio Leavitt Sodium [Moles/Vol] 134 mmol/L Critically low 136-145 [facility] Comment on above: Performed By: #### L ACT #### [facility] [address] [place] [address] Dr. Aurelio Leavitt Urea nitrogen [Mass/Vol] 8.0 mg/dL Normal 7.0-18.0 [facility] Comment on above: Performed By: #### L ACT #### [facility] [address] [place] [address] Dr. Aurelio Leavitt Urea nitrogen/Creatinine [Mass ratio] 15.1 mg/mg Normal [facility] Comment on above: Performed By: #### L ACT #### [facility] [address] [place] [address] Dr. Aurelio Leavitt PROF CHEM 8 (BAS METB) SEND OUTon 03-29-2022 Calcium [Mass/Vol] 9.3 mg/dL Normal 8.7-10.2 [facility] Comment on above: Performed By: #### L ACT #### [facility] [address] [place] [address] Dr. Aurelio Leavitt Chloride [Moles/Vol] 92 mmol/L Critically low 96-106 [facility] Comment on above: Performed By: #### L ACT #### [facility] [address] [place] [address] Dr. Aurelio Leavitt CO2 [Moles/Vol] 27 mmol/L Normal 20-29 [facility] Comment on above: Performed By: #### L ACT #### [facility] [address] [address] [address] Aurelio Leavitt Creatinine [Mass/Vol] 1.89 mg/dL Critically high 0.57-1.00 [facility] Comment on above: Performed By: #### L ACT #### [facility] [address] [address] [address] Aurelio Leavitt GFR/1.73 sq M.predicted among non-blacks MDRD (S/P/Bld) [Vol rate/Area] 33 mL/min/{1.73_m2} Critically low >59 [facility] Comment on above: Performed By: #### L ACT #### [facility] [address] [address] [address] Aurelio Leavitt Glucose [Mass/Vol] 342 mg/dL Critically high 70-99 [facility] Comment on above: Performed By: #### L ACT #### [facility] [address] [address] [address] Aurelio Leavitt Potassium [Moles/Vol] 4.2 mmol/L Normal 3.5-5.2 [facility] Comment on above: Result Comment: Spec imen received hemolyzed. Value may be increased by hemolysis. Clinical correlation indicated. Performed By: #### L ACT #### [facility] [address] [address] [address] Aurelio Leavitt Sodium [Moles/Vol] 129 mmol/L Critically low 134-144 [facility] Comment on above: Performed By: #### L ACT #### [facility] [address] [place], [place] [address] Dr. Aurelio Leavitt Urea nitrogen [Mass/Vol] 8 mg/dL Normal 6-24 [facility] Comment on above: Performed By: #### L ACT #### [facility] [address] [place], [place] [address] Dr. Aurelio Leavitt Urea nitrogen/Creatinine [Mass ratio] 4 mg/mg Critically low 9-23 [facility] Comment on above: Performed By: #### L ACT #### [facility] [address] [address] [address] Aurelio Leavitt Protein [Mass/volume] in Ser um or PlasmaOrdered By: Marie Elias on 03-29-2022 Protein [Mass/Vol] 6.2 g/dL 6.1-7.9 [facility] Serum or plasma alanine regalado otransferase measurement without P-5'-P (enzymatic activiOrdered By: Marie Elias on 03-29-2022 ALT No additional P-5'-P [Catalytic activity/Vol] See comment 1060 [facility] Comment on above: Specimen hemolyzed, redraw requested Serum or plasma albumin/glob ulin mass ratioOrdered By: Marie Elias on 03-29-2022 Albumin/Globulin [Mass ratio] 1.3 {ratio} [facility] Serum or plasma alkaline thomas sphatase measurement (enzymatic activity/volume)Ordered By: Marie Elias on 03-29-2022 ALP [Catalytic activity/Vol] See comment 32-92 [facility] Comment on above: Specimen hemolyzed, redraw requested Serum or plasma amylase lexus urement (enzymatic activity/volume)Ordered By: Marie Elias on 03-29-2022 Amylase [Catalytic activity/Vol] 29 U/L 28-100 [facility] Serum or plasma anion gap de terminationOrdered By: Marie Elias on 03-29-2022 Anion gap [Moles/Vol] TNP [facility] Comment on above: Test not performed Serum or plasma aspartate am inotransferase measurement (enzymatic activity/volume)Ordered By: Marie Elias on 03-29-2022 AST [Catalytic activity/Vol] See comment 1042 [facility] Comment on above: Specimen hemolyzed, redraw requested Serum or plasma calcium lexus urement (mass/volume)Ordered By: Marie Elias on 03-29-2022 Calcium [Mass/Vol] 8.8 mg/dL 8.2-10.2 [facility] Serum or plasma chloride sarai surement (moles/volume)Ordered By: Marie Elias on 03-29-2022 Chloride [Moles/Vol] 101 mmol/L 95-114 [facility] Serum or plasma glucose lexus urement (mass/volume)Ordered By: Marie Elias on 03-29-2022 Glucose [Mass/Vol] 347 mg/dL 70-100 [facility] Comment on above: ADA recommended refe rence rangeRandom Glucose Reference Range is dependent on time and content of last meal. Glucose of more than 200 mg/dL in a nonstressed, ambulatory subject supports the diagnosis of Diabetes Mellitus. Serum or plasma potassium me asurement (moles/volume)Ordered By: Marie Elias on 03-29-2022 Potassium [Moles/Vol] See comment 3.5-5.1 [facility] Comment on above: Specimen hemolyzed, redraw requested Serum or plasma sodium measu rement (moles/volume)Ordered By: Marie Elias on 03-29-2022 Sodium [Moles/Vol] 134 mmol/L 136-146 [facility] Serum or plasma total biliru bin measurement (mass/volume)Ordered By: Marie Elias on 03-29-2022 Bilirubin [Mass/Vol] See comment 0.3-1.2 [facility] Comment on above: Specimen hemolyzed, redraw requested Serum or plasma total carbon dioxide measurement (moles/volume)Ordered By: Marie Elias on 03-29-2022 CO2 [Moles/Vol] 21.3 mmol/L 22.0-30.0 [facility] Serum or plasma urea nitroge n measurement (mass/volume)Ordered By: Marie Elias on 03-29-2022 Urea nitrogen [Mass/Vol] 8 mg/dL 9-23 [facility] URINE MICROSCOPIC ONLYon BACTERIA TRACE Abnormal NONE SEEN [facility] Comment on above: Performed By: #### L ACT #### [facility] [address] [address] [address] Aurelio Leavitt Bacteria identified Cx Nom (U) NOT INDICATED Normal [facility] Comment on above: Performed By: #### L ACT #### [facility] [address] [place], [place] [address] Dr. Aurelio Leavitt CAST NONE SEEN Normal NONE SEEN [facility] Comment on above: Performed By: #### L ACT #### [facility] [address] [address] [address] Aurelio Leavitt Crystals LM Nom (Urine sed) NONE SEEN Normal NONE SEEN [facility] Comment on above: Performed By: #### L ACT #### [facility] [address] [address] [address] Aurelio Leavitt Epithelial cells LM Ql (Urine sed) FEW Abnormal NONE SEEN /RARE [facility] Comment on above: Performed By: #### L ACT #### [facility] [address] [address] [address] Aurelio Leavitt MUCOUS NONE SEEN Normal NONE SEEN [facility] Comment on above: Performed By: #### L ACT #### [facility] [address] [address] [address] Aurelio Leavitt RBC 2-5 Abnormal 0-2 [facility] Comment on above: Performed By: #### L ACT #### [facility] [address] [address] [address] Aurelio Leavitt WBC 0-2 Abnormal NONE SEEN [facility] Comment on above: Performed By: #### L ACT #### [facility] [address] [address] [address] Aurelio Leavitt Urine lactic acid measuremen tOrdered By: Marie Elias on 03-29-2022 Lactate (U) [Moles/Vol] 1.0 mmol/L 0.5-2.2 [facility] XR ABD FLAT UP_PA Emanuel 03-29 XR ABD FLAT UP_PA CH EXAM: XR ABD FLAT UP_PA CH HISTORY: NAUSEA WITH VOMITING, UNSPECIFIED COMPARISON: Chest 11/14/2021 TECHNIQUE AND FINDINGS: PA view of the chest. Supine and upright views of the abdomen. Cardiomediastinal silhouette appears within normal limits. Mild bibasilar atelectasis. Lungs and pleural spaces are otherwise clear. Gas throughout the bowel loops without significant distention seen. Gas and stool in the colon. Moderate to large colonic stool burden. No evidence of pneumoperitoneum. No pathologic calcifications detected. Clips in the right upper quadrant likely from cholecystectomy. Osseous structures appear grossly intact. IMPRESSION: 1. Mild bibasilar atelectasis, otherwise no acute findings in the chest. 2. Moderate to large colonic stool burden. Correlate for constipation. 3. Nonspecific, likely nonobstructive bowel gas pattern. No free air detected. If concern persists, consider follow-up radiographs and/or CT. Electronically authenticated by: JESSICA BOSTON Date: 2022-03-29 02:[address] [facility] AMYLASEon 03-28-2022 Amylase [Catalytic activity/Vol] 27 U/L Normal 25-[address] [facility] Comment on above: Performed By: #### A CETON #### [facility] [address] [address] [address] Aurelio Leavitt CBC AUTO DIFFon 03-28-2022 BASO # 0.1 103/ul Normal 0.0-0.1 [facility] Comment on above: Performed By: #### L ACT #### [facility] [address] [address] [address] Aurelio Leavitt Basophils/100 WBC (Bld) 0.7 % Normal 0.2-2.0 [facility] Comment on above: Performed By: #### L ACT #### [facility] [address] [address] [address] Aurelio Leavitt EO # 0.2 103/ul Normal 0.0-0.7 [facility] Comment on above: Performed By: #### L ACT #### [facility] [address] [address] [address] Aurelio Leavitt Eosinophils/100 WBC (Bld) 1.9 % Normal 0.9-7.0 [facility] Comment on above: Performed By: #### L ACT #### [facility] [address] [address] [address] Aurelio Leavitt Erythrocyte distribution width (RBC) [Ratio] 13.3 % Normal 11.0-15.0 [facility] Comment on above: Performed By: #### L ACT #### [facility] [address] [place] [address] Dr. Aurelio Leavitt Hematocrit (Bld) [Volume fraction] 45.1 % Normal 36.0-48.0 [facility] Comment on above: Performed By: #### L ACT #### [facility] [address] [address] [address] Aureilo Leavitt Hemoglobin (Bld) [Mass/Vol] 16.8 g/dL Critically high 12.0-16.0 [facility] Comment on above: Performed By: #### L ACT #### [facility] [address] [address] [address] Aurelio Leavitt IG # 0.03 10e3/ul Normal 0.00-0.03 [facility] Comment on above: Performed By: #### L ACT #### [facility] [address] [place] [address] Dr. Aurelio Leavitt IG % 0.3 % Normal 0.0-0.[address] [facility] Comment on above: Performed By: #### L ACT #### [facility] [address] [place] [address] Dr. Aurelio Leavitt LYMPH # 3.2 103/ul Normal 1.2-3.[address] [facility] Comment on above: Performed By: #### L ACT #### [facility] [address] [place] [address] Dr. Aurelio Leavitt Lymphocytes/100 WBC (Bld) 27.9 % Normal 20.5-60.0 [facility] Comment on above: Performed By: #### L ACT #### [facility] [address] [place] [address] Dr. Aurelio Leavitt MANUAL DIFF REQ NO Normal [facility] Comment on above: Performed By: #### L ACT #### [facility] [address] [place] [address] Dr. Aurelio Leavitt MCH (RBC) [Entitic mass] 33.7 pg Normal 26.7-34.[address] [facility] Comment on above: Performed By: #### L ACT #### [facility] [address] [place] [address] Dr. Aurelio Leavitt MCHC (RBC) [Mass/Vol] 37.3 g/dL Critically high 29.9-35.[address] [facility] Comment on above: Performed By: #### L ACT #### [facility] [address] [address] [address] Aurelio Leavitt MCV (RBC) [Entitic vol] 90.4 fL Normal 81.0-99.0 [facility] Comment on above: Performed By: #### L ACT #### [facility] [address] [place] [address] Dr. Aurelio Leavitt MONO # 1.1 103/ul Critically high 0.3-0.8 [facility] Comment on above: Performed By: #### L ACT #### [facility] [address] [place] [address] Dr. Aurelio Leavitt Monocytes/100 WBC (Bld) 9.5 % Normal 1.7-12.0 [facility] Comment on above: Performed By: #### L ACT #### [facility] [address] [place] [address] Dr. Aurelio Leavitt NEUT # 6.8 103/ul Critically high 1.4-6.5 [facility] Comment on above: Performed By: #### L ACT #### [facility] [address] [place] [address] Dr. Aurelio Leavitt Neutrophils/100 WBC (Bld) 59.7 % Normal 43.0-75.0 [facility] Comment on above: Performed By: #### L ACT #### [facility] [address] [place] [address] Dr. Aurelio Leavitt Platelet mean volume (Bld) [Entitic vol] 12.1 fL Normal 9.5-13.5 [facility] Comment on above: Performed By: #### L ACT #### [facility] [address] [place] [address] Dr. Aurelio Leavitt PLT 247 103/ul Normal 150-[address] [facility] Comment on above: Performed By: #### L ACT #### [facility] [address] [place] [address] Dr. Aurelio Leavitt RBC 4.99 106/ul Normal 4.20-5.40 [facility] Comment on above: Performed By: #### L ACT #### [facility] [address] [place] [address] Dr. Aurelio Leavitt WBC 11.3 103/ul Critically high 4.0-11.0 [facility] Comment on above: Performed By: #### L ACT #### [facility] [address] [place] [address] Dr. Aurelio Leavitt LIPASEon 03-28-2022 Lipase [Catalytic activity/Vol] 163.0 U/L Normal 73.0-393.0 [facility] Comment on above: Performed By: #### A CETON #### [facility] [address] [place] [address] Dr. Aurelio Leavitt GLYCOHEMOGLOBIN A1Con 2021 ADA RECOMMENDATION SEE BELOW Normal [facility] Comment on above: Result Comment: ADA RECOMMENDED LIMIT 4.0 - 6.0 ADA THERAPEUTIC TARGET < 7.0 ACTION SUGGESTED > 7.0 Performed By: #### A CETON #### [facility] [address] [place] [address] Dr. Aurelio Leavitt Glucose [Mass/Vol] 232 mg/dL Normal [facility] Comment on above: Performed By: #### A CETON #### [facility] [address] [place] [address] Dr. Aurelio Leavitt HbA1c (Bld) [Mass fraction] 9.7 % Critically high 4.5-6.2 [facility] Comment on above: Performed By: #### A CETON #### [facility] [address] [place] [address] Dr. Aurelio Leavitt ACETONE SERUMon 11-15-2021 ACETONE Negative Normal NEGATIVE [facility] Comment on above: Performed By: #### A CETON #### [facility] [address] [place] [address] Dr. Aurelio Leavitt CBC AUTO DIFFon 11-15-2021 BASO # 0.1 103/ul Normal 0.0-0.1 [facility] Comment on above: Performed By: #### A CETON #### [facility] [address] [place] [address] Dr. Aurelio Leavitt Basophils/100 WBC (Bld) 0.9 % Normal 0.2-2.0 [facility] Comment on above: Performed By: #### A CETON #### [facility] [address] [address] [address] Aurelio Leavitt EO # 0.2 103/ul Normal 0.0-0.7 [facility] Comment on above: Performed By: #### A CETON #### [facility] [address] [place] [address] Dr. Aurelio Leavitt Eosinophils/100 WBC (Bld) 1.7 % Normal 0.9-7.0 [facility] Comment on above: Performed By: #### A CETON #### [facility] [address] [place] [address] Dr. Aurelio Leavitt Erythrocyte distribution width (RBC) [Ratio] 13.5 % Normal 11.0-15.0 [facility] Comment on above: Performed By: #### A CETON #### [facility] [address] [place] [address] Dr. Aurelio Leavitt Hematocrit (Bld) [Volume fraction] 44.4 % Normal 36.0-48.0 [facility] Comment on above: Performed By: #### A CETON #### [facility] [address] [place] [address] Dr. Aurelio Leavitt Hemoglobin (Bld) [Mass/Vol] 15.4 g/dL Normal 12.0-16.0 [facility] Comment on above: Performed By: #### A CETON #### [facility] [address] [place] [address] Dr. Aurelio Leavitt IG # 0.09 10e3/ul Critically high 0.00-0.03 [facility] Comment on above: Performed By: #### A CETON #### [facility] [address] [place] [address] Dr. Aurelio Leavitt IG % 0.8 % Critically high 0.0-0.5 [facility] Comment on above: Performed By: #### A CETON #### [facility] [address] [place] [address] Dr. Aurelio Leavitt LYMPH # 3.8 103/ul Normal 1.2-3.8 [facility] Comment on above: Performed By: #### A CETON #### [facility] [address] [address] [address] Aurelio Leavitt Lymphocytes/100 WBC (Bld) 35.1 % Normal 20.5-60.0 [facility] Comment on above: Performed By: #### A CETON #### [facility] [address] [address] [address] Aurelio Leavitt MANUAL DIFF REQ NO Normal [facility] Comment on above: Performed By: #### A CETON #### [facility] [address] [place] [address] Dr. Aurelio Leavitt MCH (RBC) [Entitic mass] 32.0 pg Normal 26.7-34.0 [facility] Comment on above: Performed By: #### A CETON #### [facility] [address] [place] [address] Dr. Aurelio Leavitt MCHC (RBC) [Mass/Vol] 34.7 g/dL Normal 29.9-35.2 [facility] Comment on above: Performed By: #### A CETON #### [facility] [address] [place] [address] Dr. Aurelio Leavitt MCV (RBC) [Entitic vol] 92.1 fL Normal 81.0-99.0 [facility] Comment on above: Performed By: #### A CETON #### [facility] [address] [place] [address] Dr. Aurelio Leavitt MONO # 1.0 103/ul Critically high 0.3-0.8 [facility] Comment on above: Performed By: #### A CETON #### [facility] [address] [place] [address] Dr. Aurelio Leavitt Monocytes/100 WBC (Bld) 9.0 % Normal 1.7-12.0 [facility] Comment on above: Performed By: #### A CETON #### [facility] [address] [place] [address] Dr. Aurelio Leavitt NEUT # 5.6 103/ul Normal 1.4-6.5 [facility] Comment on above: Performed By: #### A CETON #### [facility] [address] [place] [address] Dr. Aurelio Leavitt Neutrophils/100 WBC (Bld) 52.5 % Normal 43.0-75.0 [facility] Comment on above: Performed By: #### A CETON #### [facility] [address] [place] [address] Dr. Aurelio Leavitt Platelet mean volume (Bld) [Entitic vol] 12.3 fL Normal 9.5-13.5 [facility] Comment on above: Performed By: #### A CETON #### [facility] [address] [place] [address] Dr. Aurelio Leavitt PLT 304 103/ul Normal 150-450 [facility] Comment on above: Performed By: #### A CETON #### [facility] [address] [place] [address] Dr. Aurelio Leavitt RBC 4.94 106/ul Normal 4.20-5.40 [facility] Comment on above: Performed By: #### A CETON #### [facility] [address] [place] [address] Dr. Aurelio Leavitt WBC 11.0 103/ul Normal 4.0-11.0 [facility] Comment on above: Performed By: #### A CETON #### [facility] [address] [place] [address] Dr. Aurelio Leavitt [facility]on SARS-CoV-2 (COVID-19) RNA GABY+probe Ql (Unsp spec) Detected Critically abnormal NOT DETECTED [facility] Comment on above: Result Comment: This test is not yet approved or cleared by the [place] FDA. When there are no FDA-approved or cleared tests available, and other criteria are met, FDA can make tests available under an emergency access mechanism called an Emergency Use Authorization (EUA). The EUA for this test is supported by the [place] of Health and Human Service's declaration that circumstances exist to justify the emergency use of in vitro diagnostics for the detection and/or diagnosis of the virus that causes COVID-19. This EUA will remain in effect for the duration of the COVID-19 declaration justifying emergency of IVDs, unless it is terminated or revoked by the FDA (after which the test may no longer be used). Performed By: #### A CETON #### [facility] [address] [place] [address] Dr. Aurelio Leavitt D-DIMERon 11-15-2021 D-DIMER 0.30 mg/L FEU Normal <=0.59 [facility] Comment on above: Performed By: #### A CETON #### [facility] [address] [place] [address] Dr. Aurelio Leavitt D-DIMER COMMENTS SEE BELOW Normal [facility] Comment on above: Result Comment: Incr eases in D-Dimer concentration observed with thromboembolic events can be variable due to localization, size, and age of the thrombus. Therefore, a thromboembolic event cannot be diagnosed with certainty on the basis of the reference range. D-Dimers may also be elevated for a variety of disorders including: advanced age, , coronary disease, cancer, liver disease, infection, inflammation, hematoma, DIC, trauma, post-surgery, diabetes, thrombolytic or anticoagulant therapy, stress, and generalized hospitalization. Performed By: #### A CETON #### [facility] [address] [place] [address] Dr. Aurelio Leavitt PROF 14(COMP METB)on 022 Albumin [Mass/Vol] 3.1 g/dL Critically low 3.4-5.0 Th [facility] Comment on above: Performed By: #### H ANANDA, CMP #### [facility] [address] [place] [address] Dr. Aurelio Leavitt Albumin/Globulin [Mass ratio] 0.7 {ratio} Normal [facility] Comment on above: Performed By: #### H ANANDA, CMP #### [facility] [address] [place] [address] Dr. Aurelio Leavitt ALP [Catalytic activity/Vol] 130 U/L Critically high 46-116 [facility] Comment on above: Performed By: #### H ANANDA, CMP #### [facility] [address] [address] [address] Aurelio Leavitt Anion gap [Moles/Vol] 16.1 mmol/L Normal [facility] Comment on above: Performed By: #### H STROPN, CMP #### [facility] [address] [address] [address] Aurelio Leavitt AST [Catalytic activity/Vol] 11 U/L Critically low 15-37 [facility] Comment on above: Performed By: #### H STROPN, CMP #### [facility] [address] [address] [address] Aurelio Leavitt Bilirubin [Mass/Vol] 1.0 mg/dL Normal 0.2-1.0 [facility] Comment on above: Performed By: #### H STROPN, CMP #### [facility] [address] [place] [address] Dr. Aurelio Leavitt Calcium [Mass/Vol] 7.3 mg/dL Critically low 8.5-10.1 [facility] Comment on above: Performed By: #### H STROPN, CMP #### [facility] [address] [address] [address] Aurelio Leavitt Chloride [Moles/Vol] 94 mmol/L Critically low 98-107 [facility] Comment on above: Performed By: #### H STROPN, CMP #### [facility] [address] [address] [address] Aurelio Leavitt CO2 [Moles/Vol] 20.6 mmol/L Critically low 21.0-32.0 [facility] Comment on above: Performed By: #### H STROPN, CMP #### [facility] [address] [place] [address] Dr. Aurelio Leavitt Creatinine [Mass/Vol] 0.57 mg/dL Normal 0.55-1.02 [facility] Comment on above: Performed By: #### H STROPN, CMP #### [facility] [address] [address] [address] Aurelio Leavitt EGFR-AF CHADIAN >60 Normal >=60 [facility] Comment on above: Performed By: #### H STROPN, CMP #### [facility] [address] [address] [address] Aurelio Leavitt EGFR-NON AF CHADIAN >60 Normal >=60 [facility] Comment on above: Performed By: #### H STROPN, CMP #### [facility] [address] [address] [address] Aurelio Leavitt Globulin (S) [Mass/Vol] 4.2 g/dL Normal [facility] Comment on above: Performed By: #### H STROPN, CMP #### [facility] [address] [address] [address] Aurelio Leavitt Glucose [Mass/Vol] 462 mg/dL Critically high 74-106 [facility] Comment on above: Performed By: #### H STROPN, CMP #### [facility] [address] [address] [address] Aurelio Leavitt Potassium [Moles/Vol] 4.7 mmol/L Normal 3.5-5.1 [facility] Comment on above: Performed By: #### H STROPN, CMP #### [facility] [address] [address] [address] Aurelio Leavitt Protein [Mass/Vol] 7.3 g/dL Normal 6.4-8.2 [facility] Comment on above: Performed By: #### H STROPN, CMP #### [facility] [address] [address] [address] Aurelio Leavitt Sodium [Moles/Vol] 126 mmol/L Critically low 136-145 [facility] Comment on above: Performed By: #### H STROPN, CMP #### [facility] [address] [address] [address] Aurelio Leavitt Urea nitrogen [Mass/Vol] 14.0 mg/dL Normal 7.0-18.0 [facility] Comment on above: Performed By: #### H STROPN, CMP #### [facility] [address] [address] [address] Aurelio Leavitt Urea nitrogen/Creatinine [Mass ratio] 24.6 mg/mg Normal [facility] Comment on above: Performed By: #### H STROPN, CMP #### [facility] [address] [place], [place] [address] Dr. Aurelio Leavitt TROPONIN, HIGH SENSITIVITYon 11-15-2021 HSTROP 5.3 pg/mL Normal 4.0-51.3 [facility] Comment on above: Result Comment: CUT- OFF POINTS HAVE BEEN ESTABLISHED BASED ON THE FOURTH UNIVERSAL DEFINITIONS OF MYOCARDIAL INFARCTION. THE UPPER REFERENCE LIMIT (URL) OF TROPONIN, DEFINED THE 99TH PERCENTILE OF cTnI DISTRIBUTION IN A REFERENCE POPULATION, HAS BEEN CONFIRMED THE DECISION THRESHOLD FOR [place] DIAGNOSIS. Performed By: #### H STROPN, CMP #### [facility] [address] [place], [place] [address] Dr. Aurelio Leavitt XR CHEST 1 Von 11-15-2021 XR CHEST 1 V EXAM: XR CHEST 1 V HISTORY: SHORTNESS OF BREATH COMPARISON: Thoracic spine x-ray 03/17/2019 TECHNIQUE: Single frontal view chest x-ray FINDINGS: Mild bilateral lower lung streaky opacities. No large pleural effusions, pneumothorax, or acute bony abnormality. Cardiac size is borderline prominent. IMPRESSION: Mild bilateral lower lung streaky opacities reflect atelectasis with crowding of pulmonary vessels versus infiltrates. Correlate clinically. Borderline prominent heart size. Electronically authenticated by: CORKY PINTO Date: 2021-11-15 01:06 Normal [facility] HEALTH 03-24-2021 ALLIED HEALTH HNO ID: [id number] Author: RT Jb(R) Service: ? Author Type: Technologist Type: Allied Health Filed: 03/24/2021 6:37 AM Note Text: Radiology Service Progress Note PATIENT NAME: Jacquelyn Zeng DATE OF SERVICE: March 24, 2021 TIME: 6:37 AM PATIENT IDENTITY VERIFICATION COMPLETED USING TWO (2) IDENTIFIERS: Name and Date of confirmed by patient verbally and Name and Date of confirmed by identification band. FALL SCREENING: Has the patient had 2 falls in the last year or 1 fall with injury or currently using an Ambulatory Assistive Device (Walker, Cane, Wheelchair, Crutches, etc.)? Yes, Patient High Risk for Falls What interventions were put in place to prevent falls during this visit? [place] Risk Wristband Applied, Instructed Patient to Call for Help if Needed, Offered Assistance with Transfers/Clothing, Instructed Patient to Remain Seated (Not on Exam Table) Until Exam, Increased Observations by Caregivers and Patient Refused Interventions/Assist ance PATIENT GENDER DATA: Female. status: : No status: NO. PATIENT RELEVANT IMPLANT DATA REVIEWED: Yes RADIOLOGY DEPARTMENT: MR; Exam(s) Completed: Spine: Cervical spine PERIPHERAL IV DATA: Not applicable SIGNED BY: Vanessa Telles RT(R) March 24, 2021 6:37 AM [facility] MRI CERVICAL SPINE WO IVCONo n 03-24-2021 MRI CERVICAL SPINE WO IVCON * * *Final Report* * * DATE OF EXAM: Mar 24 2021 6:50AM [facility] 0297 - MRI CERVICAL SPINE WO IVCON / PROCEDURE REASON: Spinal stenosis of cervical region * * * * Physician Interpretation * * * * COMPARISON: None. HISTORY: Cervical spinal stenosis with pain. TECHNIQUE: MRI cervical spine without contrast. MQ: [id number] RESULT: MRI CERVICAL SPINE: Acute abnormality: None. Decreased disc height and signal with minimal posterior bulges indicating mild disc degeneration. No central canal compromise. Normal alignment, vertebral height, marrow signal, central canal, thecal sac, spinal cord signal/caliber and posterior fossa. No fracture/dislocation . Normal tissues. C2 -- 3: Patent central canal. Patent bilateral neural foramina. C3 -- 4: Joint degeneration with moderate left and severe right foramina narrowing. Patent canal. C4 -- 5: Right joint degeneration with moderate foramina narrowing. Patent canal and left foramina. C5 -- 6: Patent central canal. Patent bilateral neural foramina. C6 -- 7: Patent central canal. Patent bilateral neural foramina. C7 -- T1: Patent central canal. Patent bilateral neural foramina. IMPRESSION: 1. Mild disc degeneration and few levels of joint degeneration. 2. Significant bilateral C3-4 and right C4-5 bony foramina narrowing. 3. Patent remaining cervical canal and foramina. COUNTING REFERENCE: Superior cervical disc is taken as C2-3. Structural anomalies: None. Application Processor: VALENTINE Transcribe Date/Time: Mar 24 2021 7:36A Dictated by : LITTLE HERNANDEZ MD This examination was interpreted and the report reviewed and electronically signed by: LITTLE HERNANDEZ MD on Mar 24 2021 7:40AM EST [id number] Normal [facility] CERVICAL SPINE 2 OR 3 [facility] 12-16-2019 CERVICAL SPINE 2 OR 3 [facility] Department of Radiology [address] [place] [address] Patient Name: JACQUELYN ZENG : 1975 Sex: F Age: Race: White Pt. Location: 84 Patient Status: O Ordered Date: 12/16/2019 10:10:00 AM Completed Date: 12/16/2019 10:20 AM Requesting Provider: BENJAMIN CUMMINS Attending Provider: BENJAMIN CUMMINS Report Copy To: Signs & Symptoms: M54.12 Radiculopathy, cervical region I10 History: [place] Comments: Evaluate Exam: CERVICAL SPINE 2 OR 3 [facility] EXAMINATION: CERVICAL SPINE 2 OR 3 [facility] 12/16/2019 10:20 AM CLINICAL HISTORY: M54.12 Radiculopathy, cervical region I10 TECHNOLOGIST COMMENTS: complains of neck pain and left shoulder pain QUESTION FOR THE RADIOLOGIST: Evaluate TECHNIQUE: AP, Odontoid and Lateral views were obtained. COMPARISON: None available. FINDINGS: Vertebral heights are normal. There is loss of normal cervical lordosis but no spondylolisthesis is identified. There are mild to moderate degree of spondylotic changes in the cervical spine with small anterior osteophytes. Disc spaces are reduced. Odontoid process is intact. There is no evidence of bony cervical rib. No significant prevertebral soft tissue abnormality is identified. IMPRESSION: 1. Mild to moderate degree of spondylotic change in the cervical spine with anterior osteophytes. 2. Loss of normal cervical lordosis but no spondylolisthesis is identified. Electronically signed: Sha Gross. Transcribed by: [email or web address], User Resident: Electronically Signed by: SHA GROSS @ 12/16/2019 11:44 AM Normal [facility] Comment on above: Order Comment: Evalu ate MRI KNEE WO CONTRAST LEFTon 12-07-2019 MRI KNEE WO CONTRAST LEFT [facility] Department of Radiology [address] [place] [id number] Patient Name: JACQUELYN ZENG : 1975 Sex: F Age: Race: White Pt. Location: Patient Status: Ordered Date: 11/30/2019 1:55:00 PM Completed Date: 12/07/2019 08:52 AM Requesting Provider: BENJAMIN CUMMINS Attending Provider: Report Copy To: Signs & Symptoms: M25.569 Pain in unspecified knee I10 History: [place]ey, PHONE:[phone],* NEEDS ORTHO F/U APPT. NO METAL Workers comp is approved with this diagnosis, cannot change it. [facility] Approved for CPT 48423 Claim#[id number] Valid 11/27/19-12/11/19 12/01/19 *SLA Comments: Please Evaluate Exam: MRI KNEE WO CONTRAST LEFT MRI KNEE WO CONTRAST LEFT 12/07/2019 8:52 AM History: Pain left knee and weakness. QUESTION FOR THE RADIOLOGIST: Please Evaluate PROTOCOL: Images were obtained in the following sequences: 3-plane localizer, axial PD fat-sat, sagittal PD fat-sat, sagittal GRE, coronal PD fat-sat, and coronal T1. COMPARISON: Left knee radiographs 10/21/2019 FINDINGS: There is no discrete medial or lateral meniscal tear identified. The cruciate and collateral ligaments, the extensor mechanism, and the popliteus tendon, are intact. There is a physiologic amount of joint fluid in the knee. There is a very small Herring's cyst. No fracture. No bone marrow or soft tissue edema. No discrete articular cartilage defect. IMPRESSION: 1. Very small Herring's cyst. 2. Otherwise normal MRI of the left knee. Electronically signed: Michael Thayer. Transcribed by: [email or web address], User Resident: Electronically Signed by: MICHAEL THAYER @ 12/07/2019 11:04 AM Normal [facility] Comment on above: Order Comment: Pleas e Evaluate MRI SHOULDER WO CONTRAST LEF Ton 12-07-2019 MRI SHOULDER WO CONTRAST LEFT [facility] Department of Radiology [address] [place] [id number] Patient Name: JACQUELYN ZENG : 1975 Sex: F Age: Race: White Pt. Location: Patient Status: Ordered Date: 11/30/2019 1:55:00 PM Completed Date: 12/07/2019 08:51 AM Requesting Provider: BENJAMIN CUMMINS Attending Provider: Report Copy To: Signs & Symptoms: M25.512 Pain in left shoulder I10 History: Zoey, PHONE:[phone],* NEEDS ORTHO F/U APPT. NO METAL [facility] Approved for CPT 27927 Claim#[id number] Valid 11/27/19-12/11/19 12/01/19 *SLA Comments: Please Evaluate Exam: MRI SHOULDER WO CONTRAST LEFT MRI SHOULDER WO CONTRAST LEFT 12/07/2019 8:51 AM CLINICAL INDICATIONS: M25.512 Pain in left shoulder I10 History: Per patient left shoulder burning and decreased mobility. QUESTION FOR THE RADIOLOGIST: Please Evaluate PROTOCOL: Images were obtained in the following sequences: 3-plane localizer, axial T2 GRE, axial PD fat-sat, coronal PD fat-sat, sagittal T1, and sagittal PD fat-sat. COMPARISON: Left shoulder radiographs 10/21/2019 FINDINGS: There is abnormal signal of the superior labrum extending from anterior to posterior without a well-defined labral tear. No evidence for a para labral cyst or ganglion. There is a globular appearance of the anterior labrum of uncertain etiology. The labrum is not optimally evaluated on this exam. There is thickening of the inferior glenohumeral ligament with trace amount of adjacent edema. There is mild edema in the region of the rotator cuff interval. There is no fluid in the subacromial/subdelto id bursa. There is no discrete tear identified of the supraspinatus, infraspinatus, or subscapularis tendons. Mild atrophy of the teres minor muscle of uncertain etiology. No other evidence for rotator cuff muscular atrophy. There is mild edema along the coracoclavicular ligament without evidence for a tear of the ligament. Mild degenerative changes of the acromioclavicular joint. No evidence for focal articular cartilage loss of the glenohumeral joint. There is mild benign cystic change of the posterolateral humeral head. No acute fracture or bone marrow edema. Long head of the biceps tendon is normally positioned in the bicipital groove and appears within normal limits. IMPRESSION: 1. Abnormal signal of the superior labrum extending from anterior to posterior. There is a globular appearance of the anterior labrum. There is no well-defined labral tear. However, the labrum is not optimally evaluated on this exam and these findings could indicate a SLAP tear of the labrum. Consider MR arthrography for further evaluation if clinically indicated. 2. Thickening of the inferior glenohumeral ligament without a discrete tear. There is minimal adjacent edema, as well as mild edema of the rotator cuff interval. These findings can be seen with adhesive capsulitis. 3. No evidence for a rotator cuff tear. 4. Isolated mild teres minor muscular atrophy of uncertain etiology. 5. Mild edema along the coracoclavicular ligament of uncertain etiology, without evidence for a tear of the ligament. Electronically signed: Michael Thayer. Transcribed by: [email or web address], User Resident: Electronically Signed by: MICHAEL THAYER @ 12/07/2019 10:56 AM Normal [facility] Comment on above: Order Comment: Ya nixon Evaluate KNEE LEFT 4VWSon 10-21-2019 KNEE LEFT 4VWS [facility] Department of Radiology [address] [place] [id number] Patient Name: JACQUELYN ZENG : 1975 Sex: F Age: Race: White Pt. Location: Patient Status: Ordered Date: 10/21/2019 9:50:00 AM Completed Date: 10/21/2019 10:05 AM Requesting Provider: BENJAMIN CUMMINS Attending Provider: Report Copy To: Signs & Symptoms: M25.569 Pain in unspecified knee I10 History: [place] Comments: Views (X-RAY, KNEE): AP, Lateral, Tunnel, [place] , Weight Bearing?: Y Exam: KNEE LEFT 4VWS KNEE LEFT 4VWS 10/21/2019 10:05 AM CLINICAL INDICATIONS: M25.569 Pain in unspecified knee I10 left knee pain, recent falls and injury TECHNOLOGIST COMMENTS: Patient complains of left knee pain. Patient states history of several recent falls. QUESTION FOR THE RADIOLOGIST: Views (X-RAY, KNEE): AP, Lateral, Tunnel, [place] , Weight Bearing?: Y PROTOCOL: AP,Lateral,Tunnel and Tangential views were obtained. COMPARISON: None FINDINGS: There is no joint effusion fracture or dislocation. Mineralization and alignment is within normal limits. Mild lateral patellar tilt. Mild early marginal osteophyte formation. IMPRESSION: Early marginal osteophyte formation without acute ossific normality. Electronically signed: Jessica Garcia. Transcribed by: [id number], User Resident: Electronically Signed by: JESSICA GARCIA @ 10/21/2019 11:11 AM Normal [facility] Comment on above: Order Comment: Views (X-RAY, KNEE): AP, Lateral, Tunnel, [place] , Weight Bearing?: Y SHOULDER LEFTon 10-21-2019 SHOULDER LEFT [facility] Department of Radiology [address] [place] [id number] Patient Name: JACQUELYN ZENG : 1975 Sex: F Age: Race: White Pt. Location: Patient Status: Ordered Date: 10/21/2019 9:50:00 AM Completed Date: 10/21/2019 10:03 AM Requesting Provider: BENJAMIN CUMMINS Attending Provider: Report Copy To: Signs & Symptoms: M25.512 Pain in left shoulder I10 History: [place] Comments: Views (X-RAY, SHOULDER): AP, [place], Y-Lateral, [place] Exam: SHOULDER LEFT SHOULDER LEFT 10/21/2019 10:03 AM SIGNS AND SYMPTOMS: M25.512 Pain in left shoulder I10, Left shoulder pain. Patient states history of several falls. QUESTION FOR THE RADIOLOGIST: Views (X-RAY, SHOULDER): AP, [place], Y-Lateral, [place] PROTOCOL: AP,[place] and Scapular Y views were obtained. [place] View was obtained. COMPARISON: None FINDINGS: Normal alignment. No fracture or periosteal reaction. The overlying soft tissues and visualized portions of the left hemithorax are negative. IMPRESSION: * Negative radiographs left shoulder Electronically signed: Cheep Espinoza M.D.. Transcribed by: [email or web address], User Resident: Electronically Signed by: CHEPE ESPINOZA @ 10/21/2019 11:59 AM Normal [facility] Comment on above: Order Comment: Views (X-RAY, SHOULDER): AP, [place], Y-Lateral, [place] POC STREP SCREENon 9 STREP POC Negative Normal NEG [facility] Comment on above: Result Comment: Perf ormed in Emergency Department. Performed By: #### 3 0211 #### [address] Vital Signs Date Time Vital Sign Value Performing Clinician Facility 06-20-2023 14:12050 Body height 175.3 cm Josh Ochoa MD Work Phone: [facility] 06-20-2023 14:12-050 Body mass index (BMI) [Ratio] 37.07 kg/m2 Josh Ochoa MD Work Phone: [facility] 06-20-2023 14:12-050 Body temperature 97.11 [degF] Josh Ochoa MD Work Phone: [facility] 02-08-2024 14:12-0500 Body weight 113.85 kg Josh Ochoa MD Work Phone: [facility] 06-20-2023 14:12-0500 Diastolic blood pressure 78 mm[Hg] Josh Ochoa MD Work Phone: [facility] 06-20-2023 14:12-0500 Heart rate 100 /min Josh Ochoa MD Work Phone: [facility] 06-20-2023 14:12-0500 SaO2% (BldA) [Mass fraction] 96 % Josh Ochoa MD Work Phone: [facility] 06-20-2023 14:12-0500 Systolic blood pressure 140 mm[Hg] Josh Ochoa MD Work Phone: [facility] 01-02-2023 08:39-0400 Diastolic blood pressure 76 mm[Hg] Kinga Froimson OFFICE SERVICES ASSISTANT.CHIEF TECHNOLOGY OFFICER Work Phone: [facility] 01-02-2023 08:39-0400 Heart rate 97 /min Kinga Froimson OFFICE SERVICES ASSISTANT.CHIEF TECHNOLOGY OFFICER Work Phone: [facility] 01-02-2023 08:39-0400 Systolic blood pressure 127 mm[Hg] Kinga Froimson OFFICE SERVICES ASSISTANT.CHIEF TECHNOLOGY OFFICER Work Phone: [facility] 09-06-2022 16:05-0400 Diastolic blood pressure 81 mm[Hg] MD Josh Ochoa Work Phone: [facility] 09-06-2022 16:05-0400 Heart rate 78 /min MD Josh Ochoa Work Phone: [facility] 09-06-2022 16:05-0400 Respiratory rate 16 /min MD Josh Ochoa Work Phone: [facility] 09-06-2022 16:05-0400 SaO2% (BldA) [Mass fraction] 93 % MD Josh Ochoa Work Phone: [facility] 09-06-2022 16:05-0400 Systolic blood pressure 129 mm[Hg] MD Josh Ochoa Work Phone: [facility] 09-06-2022 15:35-0400 Body temperature 98.4 [degF] MD Josh Ochao Work Phone: [facility] 09-06-2022 15:05-0400 Inhaled oxygen flow rate 8 L/min MD Josh Ochoa Work Phone: [facility] 09-06-2022 13:23-0400 Body height 175.26 cm MD Josh Ochoa Work Phone: [facility] 09-06-2022 13:23-0400 Body mass index (BMI) [Ratio] 33.2 kg/m2 MD Josh Ochoa Work Phone: [facility] 09-06-2022 13:23-0400 Body weight 102.05 kg MD Josh Ochoa Work Phone: [facility] 04-17-2022 10:11-0500 Body height 175.3 cm Kinga Froimson OFFICE SERVICES ASSISTANT.CHIEF TECHNOLOGY OFFICER Work Phone: [facility] 04-17-2022 10:11-0500 Body weight 91.63 kg Kinga Froimson OFFICE SERVICES ASSISTANT.CHIEF TECHNOLOGY OFFICER Work Phone: [facility] 04-17-2022 10:11-0500 Diastolic blood pressure 76 mm[Hg] Kinga Froimson OFFICE SERVICES ASSISTANT.CHIEF TECHNOLOGY OFFICER Work Phone: [facility] 04-17-2022 10:11-0500 Heart rate 103 /min Kinga Froimson OFFICE SERVICES ASSISTANT.CHIEF TECHNOLOGY OFFICER Work Phone: [facility] 04-17-2022 10:11-0500 Systolic blood pressure 131 mm[Hg] Kinga Froimson OFFICE SERVICES ASSISTANT.CHIEF TECHNOLOGY OFFICER Work Phone: [facility] 01-09-2022 15:11-0400 Body height 175.3 cm Kinga Froimson OFFICE SERVICES ASSISTANT.CHIEF TECHNOLOGY OFFICER Work Phone: [facility] 01-09-2022 15:11-0400 Body weight 97.07 kg Kinga Froimson OFFICE SERVICES ASSISTANT.CHIEF TECHNOLOGY OFFICER Work Phone: [facility] 01-09-2022 15:11-0400 Diastolic blood pressure 74 mm[Hg] Kinga Froimson OFFICE SERVICES ASSISTANT.CHIEF TECHNOLOGY OFFICER Work Phone: [facility] 01-09-2022 15:11-0400 Heart rate 92 /min Kinga Froimson OFFICE SERVICES ASSISTANT.CHIEF TECHNOLOGY OFFICER Work Phone: [facility] 01-09-2022 15:11-0400 Respiratory rate 22 /min Kinga Froimson OFFICE SERVICES ASSISTANT.CHIEF TECHNOLOGY OFFICER Work Phone: [facility] 01-09-2022 15:11-0400 Systolic blood pressure 137 mm[Hg] Kinga Froimson OFFICE SERVICES ASSISTANT.CHIEF TECHNOLOGY OFFICER Work Phone: [facility] 12-31-2021 13:00-0400 Body height 170.18 cm Vianney Collins Other [email or web address] Other 12-31-2021 13:00-0400 Body mass index (BMI) [Ratio] 33.51 kg/m2 Vianney Collins Other [email or web address] Other 12-31-2021 13:00-0400 Body temperature 97.5 [degF] Vianney Collins Other [email or web address] Other 12-31-2021 13:00-0400 Body weight 97.07 kg Vianney Collins Other [email or web address] Other 12-31-2021 13:00-0400 Diastolic blood pressure 70 mm[Hg] Vianney Collins Other [email or web address] Other 12-31-2021 13:00-0400 Respiratory rate 18 /min Vianney Collins Other [email or web address] Other 12-31-2021 13:00-0400 SaO2% (BldA) [Mass fraction] 97 % Vianney Collins Other [email or web address] Other 12-31-2021 13:00-0400 Systolic blood pressure 122 mm[Hg] Vianney Collins Other [email or web address] Other 12-09-2021 10:10-0400 Body height Chanel Workman Other [email or web address] Other 12-09-2021 10:10-0400 Body mass index (BMI) [Ratio] 33.67 kg/m2 Chanel Workman Other [email or web address] Other 12-09-2021 10:10-0400 Body temperature 98 [degF] Chanel Workman Other [email or web address] Other 12-09-2021 10:10-0400 Body weight 97.52 kg Chanel Workman Other [email or web address] Other 12-09-2021 10:10-0400 Diastolic blood pressure 79 mm[Hg] Chanel Workman Other [email or web address] Other 12-09-2021 10:10-0400 Respiratory rate 20 /min Chanel Workman Other [email or web address] Other 12-09-2021 10:10-0400 SaO2% (BldA) [Mass fraction] 94 % Chanel Workman Other [email or web address] Other 12-09-2021 10:10-0400 Systolic blood pressure 132 mm[Hg] Chanel Workman Other [email or web address] Other Encounters Encounter Date Encounter Type Care Provider Facility Start: 12-02-2023 End: 12-02-2023 ambulatory DC L JACKSON Not Available Start: 11-20-2023 End: 11-20-2023 ambulatory SARA NEUMANNIANI Not Available Start: 11-05-2023 End: 11-05-2023 ambulatory CD L JACKSON Not Available Start: 10-11-2023 End: 10-11-2023 ambulatory OLU W ARCE Not Available Start: 10-08-2023 Telephone encounter Kinga Petersen tu KARIMI Work Phone: Neurology Comment on above: Patient Question Start: 10-08-2023 End: 10-08-2023 ambulatory DC L JACKSON Not Available Start: 09-03-2023 End: 09-03-2023 ambulatory DC L JACKSON Not Available Start: 08-29-2023 End: 08-29-2023 ambulatory SARA BADILLOI Not Available Start: 08-12-2023 End: 08-12-2023 ambulatory DC L JACKSON Not Available Start: 08-01-2023 End: 08-01-2023 ambulatory OLU W ARCE Not Available Start: 07-29-2023 End: 07-29-2023 ambulatory [facility] Start: 07-24-2023 End: 07-24-2023 ambulatory Elmo Cam Solano Facility:[facility] Start: 07-22-2023 End: 07-22-2023 ambulatory DC L JACKSON Not Available Start: 07-15-2023 End: 07-15-2023 ambulatory JOSH OCHOA Not Available Start: 07-02-2023 End: 07-02-2023 ambulatory SARA BADILLOI Not Available Start: 07-01-2023 End: 07-01-2023 ambulatory DC L JACKSON Not Available Start: 06-22-2023 Clinisync Result Encounter Josh Ochoa MD Work Phone: [facility] Unsolicited Start: 06-22-2023 Clinisync Result Encounter Josh Ochoa MD Work Phone: [facility] External [facility] Unsolicited Start: 06-21-2023 Refill Josh Petersen Work Phone: [facility] Comment on above: Generalized anxiety disorder (CMS/HCC) Start: 06-20-2023 End: 06-20-2023 Office outpatient visit 25 minutes Josh Ochoa MD Work Phone: [facility] Comment on above: Type 2 diabetes neli itus with hyperglycemia, with long-term current use of insulin (CMS/HCC) (Primary Dx); Benign essential HTN (CMS/HCC); ADD (attention deficit disorder) without hyperactivity; MDD (major depressive disorder), recurrent episode, mild (HCC) (CMS/HCC); Generalized anxiety disorder (CMS/HCC); Mild intermittent asthma without complication (CMS/HCC); Complex regional pain syndrome type 1, affecting unspecified site; Mixed hyperlipidemia (CMS/HCC); skilled nursing (current) use of insulin (Z79.4) Start: 06-20-2023 Bambo flowsmateo Ochoa MD Work Phone: [facility] Start: 06-20-2023 Bamboo flowsheet Josh Ochoa MD Work Phone: [facility] Start: 06-20-2023 End: 06-20-2023 ambulatory JOSH OCHOA Not Available Start: 06-10-2023 End: 06-10-2023 ambulatory DC JACKSON Not Available Start: 06-05-2023 End: 06-05-2023 ambulatory OUL ARCE Not Available Start: 05-17-2023 End: 05-17-2023 ambulatory KINGA MENDES Facility:[facility] Start: 05-16-2023 End: 05-16-2023 ambulatory DC JACKSON Not Available Start: 05-15-2023 End: 05-15-2023 ambulatory JOSE FRANCISCO MARR [facility] Start: 05-14-2023 End: 05-14-2023 ambulatory GERTRUDE CONNOLLY Not Available Start: 04-18-2023 End: 04-18-2023 ambulatory Elmo Solano Facility:[facility] Start: 04-15-2023 End: 04-15-2023 ambulatory DC JACKSON Not Available Start: 04-01-2023 End: 04-01-2023 ambulatory SARA Stafford THIENCHAPITOJack Not Available Start: 03-25-2023 Telephone encounter Kinga mae APRN.CHIEF TECHNOLOGY OFFICER Work Phone: Otolaryngology Comment on above: Appointment Start: 03-07-2023 End: 03-07-2023 [facility] Start: 03-01-2023 End: 03-01-2023 ambulatory NAE STEINBERG [facility] Start: 01-02-2023 End: 01-02-2023 ambulatory JOSH OCHOA Facility:[facility] Start: 01-02-2023 End: 01-02-2023 Patient encounter procedure 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 APRN.CHIEF TECHNOLOGY OFFICER Work Phone: Neurology Comment on above: Intractable chronic migraine without aura and without status migrainosus (Primary Dx); Chronic daily headache Start: 12-19-2022 End: 12-19-2022 ambulatory [facility] Facility:[facility] Start: 12-13-2022 End: 12-13-2022 ambulatory JOSE FRANCISCO LaithStephon [facility] Start: 11-19-2022 End: 11-19-2022 ambulatory [facility] Start: 10-10-2022 End: 10-10-2022 Patient encounter procedure 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 APRN.CHIEF TECHNOLOGY OFFICER Work Phone: Neurology Comment on above: Intractable chronic migraine without aura and without status migrainosus (Primary Dx); Chronic daily headache Start: 10-05-2022 End: 10-05-2022 ambulatory JOSE FRANCISCO Virgen [facility] Start: 09-20-2022 End: 09-20-2022 ambulatory [facility] Facility:[facility] Start: 09-06-2022 End: 09-06-2022 Admission to same day surgery center MD Josh Ochoa Work Phone: [facility] Start: 09-06-2022 End: 09-06-2022 ambulatory MD Josh Ochoa Work Phone: [facility] Work Phone: Start: 08-29-2022 End: 08-29-2022 ambulatory NAE STEINBERG [facility] Start: 08-28-2022 End: 08-29-[address] BARTOLOME RODRIGUEZ Facility:[facility] Start: 08-27-2022 End: 08-27-2022 ambulatory Lee Chowdary Facility:[facility] Start: 08-27-2022 End: 08-27-2022 ambulatory MD Josh Ochoa Work Phone: [facility] Work Phone: Start: 08-27-2022 End: 08-27-2022 Patient encounter procedure MD Josh Ochoa Work Phone: [facility] Work Phone: Start: 08-01-[address] JOSH OCHOA [facility] ity:[facility] Start: 07-30-2022 Encounter for genera l adult medical examination without abnormal findings DR JOSH OCHOA [facility] Start: 07-24-2022 End: 07-25-[address] JOSH OCHOA Facility:[facility] Start: 07-24-2022 End: 07-25-2022 Encounter for general adult medical examination without abnormal findings DR JOSH OCHOA Facility:[facility] Start: 07-17-2022 Telephone encounter Kinga mae APRN.CHIEF TECHNOLOGY OFFICER Work Phone: Otolaryngology Comment on above: Referral Request Start: 07-17-2022 End: 07-17-2022 Patient encounter procedure 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 APRN.CHIEF TECHNOLOGY OFFICER Work Phone: Neurology Comment on above: Intractable chronic migraine without aura and without status migrainosus (Primary Dx) Start: 07-10-2022 End: 07-11-[address] AVINASH SERRATO Facility:[facility] Start: 06-26-2022 End: 06-27-[address] AVINASH SERRATO Facility:[facility] Start: 04-17-2022 End: 04-17-2022 Patient encounter procedure 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 OFFICE SERVICES ASSISTANT.CHIEF TECHNOLOGY OFFICER Work Phone: Neurology Comment on above: Intractable chronic migraine without aura and without status migrainosus (Primary Dx) Start: 03-29-2022 End: 03-29-2022 ambulatory aMrie Elias Facility:[facility] Start: 03-29-2022 End: 03-29-2022 ambulatory MD Josh Ochoa Work Phone: [facility] Work Phone: Start: 03-29-2022 End: 03-29-2022 Patient encounter procedure MD Josh Ochoa Work Phone: [facility] Start: 03-29-2022 End: 03-29-2022 ambulatory MARIE ELIAS Facility:[facility] Start: 03-28-2022 End: 03-29-[address] JOSH OCHOA Facility:[facility] Start: 01-09-2022 End: 01-09-2022 Patient encounter procedure 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 OFFICE SERVICES ASSISTANT.CHIEF TECHNOLOGY OFFICER Work Phone: Neurology Comment on above: Intractable chronic migraine without aura and without status migrainosus (Primary Dx) Start: 12-31-2021 End: 12-31-2021 ambulatory Vianney Collins Other [email or web address] Other Start: 12-31-2021 Office outpatient vi sit 25 minutes Vianney Collins [facility] Start: 12-13-2021 End: 12-14-[address] JOSH OCHOA Facility:[facility] Start: 12-09-2021 End: 12-09-2021 ambulatory Chanel Workman Other [email or web address] Other Start: 12-09-2021 Office outpatient vi sit 15 minutes Chanel Workman [facility] Start: 11-15-2021 End: 11-15-[address] NAE TIDWELL . Facility:[facility] Start: 09-08-2021 Telephone encounter Kinga mae APRN.CHIEF TECHNOLOGY OFFICER Work Phone: Neurology Comment on above: Referral Request Start: 01-12-2020 End: 01-27-2020 Patient encounter procedure BENJAMIN CUMMINS Facility:[facility] Start: 12-07-2019 End: 12-08-2019 Patient encounter procedure BENJAMIN CUMMINS Facility:[facility] Start: 10-21-2019 End: 10-22-2019 Patient encounter procedure BENJAMIN CUMMINS Facility:[facility] Start: 02-18-2019 End: 02-18-2019 Emergency department patient visit CHONG CARRERO Facility:[facility] Procedures Date Procedure Procedure Detail Performing Clinician Start: 06-22-2023 TBH MICROALBUMIN, RA ND UR Josh Ochoa MD Work Phone: Start: 06-22-2023 ALL CBC WITH AUTO DIFF Josh Ochoa MD Work Phone: Start: 06-22-2023 MLR HEMOGLOBIN A1C Josh Ochoa MD Work Phone: Start: 09-06-2022 Excision of cyst MD Yulia Ochoa Work Phone: Start: 08-29-2022 History of placement of stent for coronary artery disease S/P drug eluting coronary stent placement Josh Ochoa MD Work Phone: Start: 08-28-2022 Mammography Josh ngo MD Work Phone: Start: 09-07-2021 Adult depression screening assessment 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 APRN.CHIEF TECHNOLOGY OFFICER Work Phone: Start: 07-11-2020 Microscopic observat ion [Identifier] in Cervix by Cyto stain Josh Ochoa MD Work Phone: Plan of Treatment Date Care Activity Detail Author Start: 10-05-2025 DIABETES SCREEN DIABETES SCREEN [facility] Start: 10-05-2025 Diabetes Screening Diabetes Screenin g [facility] Start: 07-11-2025 Screening for malign ant neoplasm of cervix [facility] Start: 02-27-2024 Medicare Annual Well ness (AWV) Medicare Annual Wellness (AWV) [facility] Start: 08-29-2023 Screening for malign ant neoplasm of breast [facility] Start: 08-01-2023 End: 08-01-2023 Clinical Support 08/01/2023 1:40 PM EDT Clinical Support [facility] [address] [place] [phone] Olu Arce MD [address] [facility] [address] [address] [facility] Start: 07-15-2023 End: 07-15-2023 Patient encounter procedure 07/15/2023 8:15 AM EST Office Visit [facility] [address] [place] [phone] Josh Ochoa MD [address] [place] [phone] [facility] Start: 07-02-2023 End: 07-02-2023 Patient encounter procedure 07/02/2023 12:00 PM EST Office Visit [facility] [address] [facility] [address] CHEN [address] [place] [address], [place] [address] Sara Krishnan SHAREPOINT ENGINEER [address] [place] [address], [place] [address] [facility] [address] Start: 07-01-2023 End: 07-01-2023 Social Work 07/01/2023 10:00 AM EST Social Work [facility] [address] [place] [address] Dc Jackson, [facility] [address] [place] [address] [facility] Start: 06-20-2023 End: 06-20-2023 Patient encounter procedure 06/20/2023 2:15 PM EST Office Visit [facility] [address] [place] [phone] Josh Ochoa MD [address] [place] [address] Arrived [facility] Comment on above: Arrived Start: 06-20-2023 End: 06-20-2024 Albumin, urine, random Albumin, urine, random Lab Routine Type 2 diabetes mellitus with hyperglycemia, with long-term current use of insulin ([facility]) Expected: 06/20/2023 (Approximate), Expires: 06/20/2024 [facility] Comment on above: Expected: 06/20/2023 (Approximate), Expires: 06/20/2024 Start: 06-20-2023 End: 06-20-2024 Hemoglobin A1c measurement Hemoglobin A1c Lab Routine Type 2 diabetes mellitus with hyperglycemia, with long-term current use of insulin ([facility]) Expected: 06/20/2023 (Approximate), Expires: 06/20/2024 [facility] Work Phone: Comment on above: Expected: 06/20/2023 (Approximate), Expires: 06/20/2024 Start: 05-13-2023 Behavioral Health Screening Behavioral Health Screening [facility] Start: 01-11-2023 Covid-19 Vaccine ( season) Covid-19 Vaccine ( season) [facility] Start: 01-11-2023 Influenza vaccination C [facility] Start: 09-07-2022 Adult depression screening assessment DEPRESSION SCREENING [facility] Start: 09-06-2022 [facility] Start: 09-06-2022 [facility] Start: 05-13-2022 DEPRESSION ASSESSMENT DEPRESSION ASS ESSMENT [facility] Start: 01-11-2022 Influenza vaccination C [facility] Start: 05-13-2021 DEPRESSION ASSESSMENT DEPRESSION ASS ESSMENT [facility] Start: 05-01-2021 COVID-19 VACCINE (3 - Booster for Moderna series) COVID-19 VACCINE (3 - Booster for Moderna series) [facility] Start: 01-24-2021 COVID-19 VACCINE (3 - Booster for Moderna series) COVID-19 VACCINE (3 - Booster for Moderna series) [facility] Start: 01-24-2021 COVID-19 VACCINE (3 - Moderna series) COVID-19 VACCINE (3 - Moderna series) [facility] Start: 09-01-2019 COLOGUARD (FIT-DNA) COLOGUARD (FIT-D NA) [facility] Start: 09-01-2019 Colonoscopy COLONOSCOPY [facility] Start: 09-01-2019 COLORECTAL CANCER SCREENING COLORECTAL CANCER SCREENING [facility] Start: 09-01-[address] COLONOGRAPHY [facility] Start: 09-01-2019 DIABETES SCREEN DIABETES SCREEN [facility] Start: 09-01-2019 FECAL OCCULT BLOOD FECAL OCCULT BLOO D [facility] Start: 09-01-2019 Lipid 1996 panel - S sophia or Plasma Lipid Screening [facility] Start: 09-01-2019 Lipid panel Lipid Screening [facility] Start: 09-01-2019 LIPID SCREEN LIPID SCREEN [facility] Start: 09-01-2019 Screening for malign ant neoplasm of colon [facility] Start: 09-01-2019 SIGMOIDOSCOPY SIGMOIDOSCOPY [facility] Start: 2014 Mammography [facility] Start: 2004 HPV TESTING HPV TESTING [facility] Start: 2004 Screening for malign ant neoplasm of cervix HPV Testing [facility] Start: 2004 Zoledronic acid therapy ALPHA- 1 ANTITRYPSIN DEFICIENCY SCREENING [facility] Start: 09-01-1995 PAP TESTING PAP TESTING [facility] Start: 09-01-1995 Screening for malign ant neoplasm of cervix Pap Testing [facility] Start: 1993 Hepatitis B Vaccine (1 of 3 - 19+ 3-dose series) Hepatitis B Vaccine (1 of 3 - 19+ 3-dose series) [facility] Start: 1993 Urine microalbumin profile [facility] Start: 1993 Urine screening for protein Diabetes: Urine Protein Screening [facility] Start: 1992 ANNUAL PCP TEAM 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/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 ATTENDANT SILVANO DISEASE VISIT ANNUAL PCP TEAM CHRONIC DISEASE VISIT [facility] Start: 1992 HEPATITIS C SCREENING HEPATITIS C [facility] Start: 1992 Hepatitis C screening Hepatitis C [facility] Start: 1992 HIV SCREENING HIV SCREENING [facility] Start: 1992 HIV screening HIV Screening [facility] Start: 1992 SPIROMETRY SPIROMETRY [facility] Start: 1984 Glaucoma screening Diabetes: R etinopathy Screening [facility] Start: 1980 PNEUMOCOCCAL (1 - PCV) PNEUMOCOCCAL (1 - PCV) [facility] Start: 1980 Pneumococcal vaccination Pneum ococcal Vaccine (1 - PCV) [facility] Start: 1974 Hemoglobin A1c measurement Diabetes: Hemoglobin A1C [facility] Start: 1974 HEPATITIS B (1 of 3 - 3-dose series) HEPATITIS B (1 of 3 - 3-dose series) [facility] Start: 1974 Hepatitis B Vaccine (1 of 3 - 3-dose series) Hepatitis B Vaccine (1 of 3 - 3-dose series) [facility] Patient Education [facility] Work Phone: Patient referral [facility] Work Phone: [facility] Immunizations Immunization Date Immunization Notes Care Provider Fa cili 11-29-2020 COVID-19 mRNA-1273 (Moderna) MD Josh Ochoa Work Phone: [facility] 11-01-2020 COVID-19 mRNA-1273 (Neal) MD Josh Ochoa Work Phone: [facility] Payers Date Payer Category Payer Unknown [id number] 2023 Medicare [id number] 2022 Unknown [id number] 2022 Self-pay [id number] 2021 Private Health Insurance [id number] 2019 Medicare [id number]. [id number] 2018 Unknown MMO MMO [employer]US [id number] 2018-Present [phone] [address] [place] [address] PPO [id number] [id number]. 7.3.282901.315 2016 Unknown [id number]. 1.13.159.2. 7.3.627676.315 2016 Unknown [id number] 1974 Unknown [id number] 2.16.840.1.710296.3.579.2. 647 1974 Unknown [id number] 2.16.840.1.524266.3.579.2. 647 1974 Unknown [id number] 2.16.840.1.931057.3.579.2. 647 1974 Unknown [id number] 2.16.840.1.011716.3.579.2. 647 1974 Unknown [id number] 2.16.840.1.883668.3.579.2. 593 1974 Unknown [id number] 2.16.840.1.268737.3.579.2. 593 1974 Unknown [id number] 2.16.840.1.166599.3.579.2. 593 1974 Unknown [id number] 2.16.840.1.522031.3.579.2. 593 1974 Unknown [id number] 2.16.840.1.183282.3.579.2. 593 1974 Unknown [id number] 2.16.840.1.669085.3.579.2. 593 1974 Unknown [id number] 2.16.840.1.649306.3.579.2. 593 1974 Unknown [id number] 2.16.840.1.452170.3.579.2. 593 1974 Unknown [id number] 2.16.840.1.148291.3.579.2. 593 1974 Unknown [id number] 2.16.840.1.669073.3.579.2. 718 1975 Unknown [id number] 2.16.840.1.129265.3.579.2. 1974 Unknown [id number] 2.16.840.1.655450.3.579.2. 1974 Unknown [id number] 2.16.840.1.033840.3.579.2. 1974 Unknown [id number] 2.16.840.1.257878.3.579.2. 1258 1974 Unknown [id number] 2.16.840.1.652718.3.579.2. 1258 1974 Unknown [id number] 2.16.840.1.051234.3.579.2. 1258 1974 Unknown [id number] 2.16.840.1.924871.3.579.2. 1258 1974 Unknown [id number] 2.16.840.1.447313.3.579.2. 1258 1974 Unknown [id number] 2.16.840.1.757513.3.579.2. 1258 1974 Unknown [id number] 2.16.840.1.211964.3.579.2. 1258 1974 Unknown [id number] 2.16.840.1.779978.3.579.2. 1258 1974 Unknown [id number] 2.16.840.1.862338.3.579.2. 1258 1974 Unknown [id number] 2.16.840.1.520569.3.579.2. 1258 1974 Unknown [id number] 2.16.840.1.635537.3.579.2. 1258 1974 Unknown [id number] 2.16.840.1.650265.3.579.2. 1258 1974 Unknown [id number] 2.16.840.1.487933.3.579.2. 1258 1974 Unknown [id number] 2.16.840.1.291451.3.579.2. 1258 1974 Unknown [id number] 2.16.840.1.666528.3.579.2. 1258 1974 Unknown [id number] 2.16.840.1.200307.3.579.2. 1258 1974 Unknown [id number] 2.16.840.1.316730.3.579.2. 1258 1974 Unknown [id number] 2.16.840.1.940423.3.579.2. 1258 1974 Unknown [id number] 2.16.840.1.448834.3.579.2. 1258 1974 Unknown [id number] 2.16.840.1.274381.3.579.2. 1259 1959 Medicare [id number] 2.16.840.1.681852.19 1959 Unknown [id number] Worker's Compensation [id number] Private Health Insurance [employer] [id number] Unknown O [id number] Unknown [id number] 2.16.840.1.103194.3.579.2. 531 Unknown [id number] 2.16840.1.246240.3.579.2. 531 Unknown [id number] 2.16.840.1.163617.3.579.2. 531 Social History Date Type Detail Facility Start: 08-01-2016 End: 01-09-2022 Tobacco smoking status NHIS Smokes tobacco daily [facility] Start: 08-01-2016 End: 10-10-2022 Cigarettes smoked current (pack per day) - Reported 1 [facility] Start: 08-01-2016 End: 01-09-2022 Tobacco use and exposure User of smokeless tobacco [facility] Start: 09-07-2021 End: 05-17-2023 Alcohol intake Current non-drinker of alcohol (finding) [facility] Start: 1975 Sex Assigned At Not on file C [facility] Start: 08-28-2021 End: 01-09-2022 Exposure to SARS-CoV-2 (event) Not sure [facility] Start: 10-10-2022 End: 01-02-2023 Sex Assigned At [facility] History of tobacco use Cigarette Smoker C [facility] Work Phone: Start: 04-27-2019 Tobacco smoking stat us [facility] Smoker (finding) [facility] Start: 1975 Sex Assigned At Female F [facility] Start: 08-27-2022 End: 06-17-2023 Tobacco smoking status NVIS Ex-smoker (finding) [facility] Adult Depression Screening Assessment 4 [facility] Start: 06-17-2023 Tobacco use and exposure Smokeless tobacco non-user [facility] Start: 06-17-2023 End: 06-20-2023 Alcohol intake Lifetime non-drinker (finding) [facility] Start: 05-14-2023 Alcohol Comment caffeine intak e: maybe 1 coffee or pop cups per day [facility] Medical Equipment Procedure Code Equipment Code Equipment Origin al Text Equipment Identifier Dates [id number], [id number] Start: 10-09-2019 End: 01-02-2023 Comment on above: use test strip to te st BLOOD SUGAR FOUR TIMES DAILY use with insulin FOU R TIMES DAILY Goals Date Patient Goal Desired Activity /State Clinical Notes 04-24-2005 to 10-09-2023 Telephone Encounter - Lien Robertson - 10/09/2023 2:40 PM EDTTelephone Encounter - Lien Robertson - 10/09/2023 2:40 PM EDTTelephone Encounter - Tiffany Boyer - 10/08/2023 2:38 PM EDT Note Date & Type Note Facility 10-09-2023 Telephone encounter Note Sent message to [facility] team to follow up on status and to see if we can schedule. [facility] 10-09-2023 Miscellaneous Notes Sent message to [facility] team to follow up on status and to see if we can schedule. Call received for 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 APRN.CNP regarding Jacquelyn Zeng 1975. Caller: Self Patient Identified by Name and : Yes Was permission obtained from patient ? Yes Reason for Call: Botox Referral New Referral Needed ? Yes Have you contacted our registration department with you most recent insurance information ? Yes- Are you ordering through a specialty pharmacy -No Botox is through [facility] and her appointment had to be rescheduled in August. Last Office Visit: 05/17/23 with Fred Next scheduled appointment: Not scheduled. Best number to reach caller: [phone] Best time to reach caller: between 11-2:30 pm Is it OK to leave a detailed voice message? Yes Tiffany Boyer documented in this encounter [facility] 10-08-2023 Telephone encounter Note Call received for 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 APRN.CHIEF TECHNOLOGY OFFICER regarding Jacquelyn Zeng 1975. Caller: Self Patient Identified by Name and : Yes Was permission obtained from patient ? Yes Reason for Call: Botox Referral New Referral Needed ? Yes Have you contacted our registration department with you most recent insurance information ? Yes- Are you ordering through a specialty pharmacy -No Botox is through [facility] and her appointment had to be rescheduled in August. Last Office Visit: 05/17/23 with Fred Next scheduled appointment: Not scheduled. Best number to reach caller: [phone] Best time to reach caller: between 11-2:30 pm Is it OK to leave a detailed voice message? Yes Tiffany Boyer [facility] 07-29-2023 Note [place] [facility] - [facility] Subjective Jacquelyn Zeng is a 47 y.o. year old female patient being seen for 6 mo follow up CAD and hyperlipidemia. Had routine labs w/ lipid panel last month. She denies chest pain, SOB, and LE edema. Palpitations remain unchanged - intermittent and not bothersome. Patient Active Problem List Diagnosis Type 2 diabetes mellitus without complication, without long-term current use of insulin (CMS/HCC) Mixed hyperlipidemia Benign essential HTN Tobacco dependence Mild intermittent asthma without complication Unstable angina (CMS/HCC) HAWTHORNE (dyspnea on exertion) Edema of both lower extremities Cervico-occipital neuralgia Chronic obstructive asthma, unspecified Chronic pain syndrome Complex regional pain syndrome Closed fracture of coronoid process of ulna Degeneration of lumbosacral intervertebral disc Fracture of ulna Medication overuse headache Memory deficit Postconcussion syndrome 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 Migraine Generalized anxiety disorder Panic disorder Severe major depression, single episode, without psychotic features (CMS/HCC) Family history of early CAD Mixed hyperlipidemia due to type 2 diabetes mellitus (CMS/HCC) Coronary artery disease involving samish coronary artery of samish heart without angina pectoris S/P drug eluting coronary stent placement Polycystic ovaries Adhesive capsulitis of left shoulder Anxiety Depression Diabetes mellitus (CMS/HCC) Neuropathic pain Optic nerve disorder Osteoarthritis Vertigo Cervical radiculopathy at C6 Bilateral occipital neuralgia Hypercholesterolemia Brachial plexus neuropathy Chronic migraine without aura, not intractable, without status migrainosus Enthesopathy of hip region Insomnia Lipoma of lower back Lump of skin of back Muscle spasm Myalgia Obesity affecting , antepartum Oth cond assoc w female genital organs and menstrual cycle Pain in joint of left shoulder complicated by tobacco use Trochanteric bursitis of both hips Vaginal dryness ADD (attention deficit disorder) without hyperactivity MDD (major depressive disorder), recurrent episode, mild (CMS/HCC) Family History Problem Relation Name Age of Onset Coronary artery disease Mother Heart attack Mother Cancer Mother Heart attack Father 54 Social History Tobacco Use Smoking status: Former Packs/day: 1.00 Years: 26.00 Additional pack years: 0.00 Total pack years: 26.00 Types: Cigarettes Quit date: 07/26/2022 Years since quittin.0 Passive exposure: Never Smokeless tobacco: Never Substance Use Topics Alcohol use: Yes Comment: rarely Drug use: Yes Frequency: 3.0 times per week Types: Marijuana Comment: Has MM card. HPI Jacquelyn Zeng is a 47 y.o. female who was previously evaluated in cardiology clinic because of unstable anginal symptoms that led to an emergency room admission. She underwent a stress test that showed defect in the distal zandra-apical wall. She was referred for cardiac catheterization on 07/27/2022 that showed severe disease in the right coronary artery for which she underwent a drug-eluting stent. Her atorvastatin was increased from 40 mg daily to 80 mg daily. She has been working on diabetes control with her PCP. She is also on furosemide 40 mg daily from before for high blood pressure and lower extremity edema. One of her main issues is hyperlipidemia and hypertriglyceridemia in the setting of uncontrolled diabetes. Recently she has been working on diabetes control and her most recent hemoglobin A1c was 7.2%. She has chronic pancreatitis and that limits the use of medications. Today she reports that she has been doing reasonably well. She has no chest pain. No shortness of breath. She has occasional palpitations. No leg edema. Review of Systems Cardiovascular: Positive for palpitations ( not bad ). Musculoskeletal: Positive for arthritis, back pain, joint pain and myalgias. Neurological: Positive for light-headedness. All other systems reviewed and are negative. Objective Visit Vitals BP 114/72 (BP Location: Left arm, Patient Position: Sitting) Pulse 103 Ht 1.753 m (5' 9 ) Wt 113 kg (250 lb) SpO2 96% BMI 36.92 kg/m??? OB Status Having periods Smoking Status Former BSA 2.35 m??? Physical Exam Constitutional: Appearance: She is well-developed. She is obese. She is not ill-appearing. HENT: Head: Normocephalic and atraumatic. Nose: Nose normal. Eyes: General: No scleral icterus. Pupils: Pupils are equal, round, and reactive to light. Neck: Thyroid: No thyromegaly. Vascular: No JVD. Cardiovascular: Rate and Rhythm: Normal rate and regular rhythm. Pulses: Radial pulses are 2+ on the right side and 2+ on the left side. Heart sounds: Normal heart sounds. No murmur heard. No friction rub. No gallop. Pulmonary: Effort: Pulmonary ef (more content not included)... [facility] 07-24-2023 Note Patient Education Ma terials Follows: [facility] 06-20-2023 History of Present illness Narrative Associated Problem(s): Mild intermittent asthma without complication (CMS/HCC) No SOB and use albuterol PRN. Associated Problem(s): Complex regional pain syndrome I, unspecified Pain stable and follow up with specialists. Associated Problem(s): Generalized anxiety disorder (CMS/HCC) Symptoms controlled with medication and continue. Use xanax PRN. Associated Problem(s): MDD (major depressive disorder), recurrent episode, mild (HCC) (CMS/HCC) Symptoms controlled with medication and continue. Associated Problem(s): ADD (attention deficit disorder) without hyperactivity Worsening symptoms and try strattera. Associated Problem(s): Benign essential HTN (CMS/HCC) BP controlled and monitor PRN. Associated Problem(s): Type 2 diabetes mellitus with hyperglycemia, with long-term current use of insulin (CMS/HCC) Reports BS controlled and due for A1C. Stick to ADA diet and limit carbs. Subjective Patient ID: Jacquelyn Zeng is a 47 y.o. female who presents for Follow-up ([facility]). F/u DM, HTN, asthma, depression, anxiety, and pain. Patient stable today. Following with endocrinology and BS 70-146 with average around 130. Tries to stick to ADA diet and limit carbs. Denies signs of elevated BS such as polyuria, polyphagia or polydipsia. Due for A1. Checking BP PRN and typically controlled. BP normal today. Taking medication daily and tolerating without side effects. Asthma doing well. No SOB or cough with exertion. No nocturnal cough or SOB. Using albuterol PRN and works when needed. Depression controlled with medication. Not as down or sad and feels happier. Able to do more and interacting well with others. Anxiety stable. Not as stressed out or overwhelmed. Not as nervous or worry as much. Not as butts or irritable. Using xanax PRN and helps. Concerned of ADD. On ritalin in past but not for years. Notice worsening symptoms. Not focused and hard to stay on task. Start multiple tasks and not complete. Hard to follow directions and not organized. Wants to try medication but not able to take stimulant due to CAD. Pain unchanged. Pain in upper abdomen over ribs and left side. Pain radiates around to right scapula region and thoracic spine. Using heat and muscle relaxers and mild relief. Following with neurology and pain management. Review of Systems Respiratory: Negative for cough, shortness of breath and wheezing. Cardiovascular: Negative for chest pain and palpitations. Gastrointestinal: Negative for abdominal pain, diarrhea, nausea and vomiting. Genitourinary: Negative for dysuria. Objective Physical Exam Constitutional: General: She is not in acute distress. Appearance: Normal appearance. HENT: Head: Normocephalic. Right Ear: Tympanic membrane normal. Left Ear: Tympanic membrane normal. Eyes: Extraocular Movements: Extraocular movements intact. Pupils: Pupils are equal, round, and reactive to light. Cardiovascular: Rate and Rhythm: Normal rate and regular rhythm. Heart sounds: No murmur heard. No friction rub. No gallop. Pulmonary: Effort: Pulmonary effort is normal. Breath sounds: Normal breath sounds. No wheezing, rhonchi or rales. Abdominal: General: Bowel sounds are normal. There is no distension. Palpations: Abdomen is soft. Tenderness: There is no abdominal tenderness. There is no guarding or rebound. Musculoskeletal: Cervical back: Neck supple. Right lower leg: No edema. Left lower leg: No edema. Neurological: Mental Status: She is alert. Assessment/Plan Problem List Items Addressed This Visit Generalized anxiety disorder (CMS/HCC) Symptoms controlled with medication and continue. Use xanax PRN. MDD (major depressive disorder), recurrent episode, mild (HCC) (CMS/HCC) Symptoms controlled with medication and continue. Benign essential HTN (CMS/HCC) BP controlled and monitor PRN. Complex regional pain syndrome I, unspecified Pain stable and follow up with specialists. Mixed hyperlipidemia (CMS/HCC) Relevant Medications atorvastatin (Lipitor) 80 MG tablet Mild intermittent asthma without complication (CMS/HCC) No SOB and use albuterol PRN. Type 2 diabetes mellitus with hyperglycemia, with long-term current use of insulin ([facility]) - Primary Reports BS controlled and due for A1C. Stick to ADA diet and limit carbs. Relevant Orders Hemoglobin A1c Albumin, urine, random ADD (attention deficit disorder) without hyperactivity Worsening symptoms and try strattera. Relevant Medications atomoxetine (Strattera) 40 MG capsule documented in this encounter [facility] 05-17-2023 Note HNO ID: [id number] Author: KINGA MENDES APRN.CHIEF TECHNOLOGY OFFICER Service: ? Author Type: Nurse Practitioner Type: Procedures Filed: 05/17/2023 12:02 Note Text: Follow-Up Onabotulinum Toxin A (BotoxTM) for Migraine Indication: Chronic Intractable Migraine Treatment #: 8 Referral Expiration: 09/17/2023 Prior to the initiation of the FIRST treatment with Onabotulinum Toxin A, the patient reported the following average headache frequency over the past 3 MONTHS: Number of moderate-severe migraine days/month: 30 (daily) Number of mild migraine days/month: 0 Number of headache free days/month: 0 (0 headache-free hours) Migraine severity: 8/10 After treatment with Onabotulinum Toxin A: Number of moderate-severe migraine days/month: 10 Number of mild migraine days/month: 20 Number of headache free days/month: 0 (0 headache-free hours) Migraine severity: 6/10 Patient reduction in overall migraine days: No Patient reduction in moderate-severe migraine days: Yes Patient reduction of headache hours by 100 hours or more: No Individual has obtained clinical benefit deemed significant by individual or prescriber (Y/N): Yes Patient's quality of life and ability to perform ADLs has improved (Y/N): Yes Side effects: none Wearing off: No The patient has been assessed for disorders which could contribute to breathing or swallowing difficulty, and there is no contraindication with PREEMPT Botox. There is no documented allergic reaction/hypersensitivity to any botulinum toxin and there is no active infection at proposed injection site. HEADACHE SCORES: Headache Questions 06/08/2021 09/07/2021 ER visits since last office visit: 0 0 Hospital stays since last office visit 0 0 Limited ADLs in the last month: 26 14 Days missed from work or school in the last month: 26 - Days headache pain free in the last month: 0 7 Days per month with ALL of the following symptoms - decreased productivity, light sensitivity and nausea: 26 10 Initial improvement of headache after botox injection at last visit: Not applicable, I did not have a botox injection at my last visit Much improved PRN medication usage in the last month: 26 10 Patient impression of improvement since last visit: Very much worse Much improved HIT-6 06/08/2021 09/07/2021 HIT-6 78 (Severe impact) 65 (Severe impact) MAYNOR - 2/7 SCORES 06/08/2021 09/07/2021 MAYNOR-2 Score 1 3 MAYNOR-7 Score - 11 PHQ-9 11/07/2016 06/08/2021 09/07/2021 Score 17 15 17 BP 127/60 (BP Site: Left Arm, BP Position: Sitting, BP Cuff Size: Regular Adult) Pulse 92 Patient name: Jacquelyn Zeng : 1975 ALLERGIES Allergen Reactions Desonide Other: See Comments patient unaware but hx of TBI so she may not recall Latex Anaphylaxis, Itching Ciprofloxacin Unknown Codeine Hives Erythromycin Hives Latex Itching Penicillin V Hives Sulfa (Sulfonamide * Hives UNIVERSAL PROTOCOL / SAFETY CHECKLIST Procedure: Onabotulinum toxin A for migraine Informed Consent Consent Obtained: Written [place] Protocol A moment to CARE was completed SIGN IN Personnel directly involved with the procedure wore the appropriate PPE Special Equipment: N/A Patient/Surrogate Stated/Verified: Patient name, Date of , Relevant allergies and Intended procedure TIME OUT Intended patient and procedure match the source document(s) Consent documented and matches the intended procedure No relevant labs, photos, and/or imaging studies were applicable for review. No correct side/site applicable for marking and visibility. Medications required for procedure verified. No fire risk assessment and interventions applicable. No implant(s) inserted. SIGN OUT No specimen collected. No instruments, equipment or retained foreign bodies applicable. Post-procedure follow-up management communicated and Plan of Care Visit completed when applicable Written Consent Obtained: Written LOT #: [id number] Expiration Date: Month: 6 Year: 2025 Injection Sites Left (Units) Left (Sites) Right (Units) Right (Sites) TOTAL (Units) Mobile Sales Technician 5 1 5 1 10 Procerus Units: 5 Sites: 1 5 Frontalis 10 2 10 2 20 Temporalis optional follow the pain 20 15 4 3 20 10 4 2 65 Occipitalis optional follow the pain 15 10 3 2 15 10 3 2 50 Cervical PSP 10 2 10 2 20 Trapezius 15 3 15 3 30 Total Units used: 200 Total Units wasted: 0 Prior Therapies Duration of Use Dose Side effect Other Therapies Chiropractic Physical therapy Analgesic Hydromorphone (Dilaudid) Anti-Anxiety Buspirone (Buspar) Anti-Convulsant Gabapentin (Neurontin) Oxcarbazepine (Trileptal) Pregabalin (Lyrica) Topiramate (Topamax, Trokendi XL, Qudexy) Anti-Depressant and Antipsychotic Amitriptyline (Elavil) Citalopram (Celexa) Venlafaxine (Effexor) Anti-Migraine Dihydroergotamine (DHE-45, Migranal) Blood Pressure Lisinopril (Zestril) Supplements Magnesium Over the Counter Medicati (more content not included)... [facility] 05-15-2023 Note REASON FOR VISIT: Jacquelyn Zeng is a 47 y.o. female who is being seen today as follow up for evaluation of her diabetes. HbA1C: July 2022 it was 10.1% -->9.3% 10/05/2022 --> 7.5 % 02/19/23 (scanned in media) Current Regimen: Omnipod 5 with Dexcom G6 Previous subcutaneous regimen: Lantus 20 units BID Novolog 3:15+ MCS Metformin 1000 mg BID Tried ozempic and trulciity in past and had diarrhea Compliance: good Today No acute issues. She has been taking glipizide still though we stopped it. She says farxiga is not covered and is expensive. She is trying to adhere to low carb diet and starting to meal plan to help with portion control. DIABETES HISTORY: Diabetes Mellitus [Type 2] Onset of diabetes(at age OR at which year?): 27 years ago after she had first baby [ X ] Family history of diabetes: If yes, who and age of diagnosis?: Parents with type 2 Complications: Known diabetic complications: autonomic neuropathy, peripheral neuropathy, and cardiovascular disease Eye exam current (within one year): yes Diabetes education: [No] Seen by a [employer] certified internetwork expert (CDE) within 12 months Meal plan: [No] Seen by a generalist within 12 months [ ] Consistent carbohydrate diet [ ] Carbohydrate counting Meal size, estimated per patient: How many meals: [ 1 + 2 small meals ] Biggest meal: [ dinner] Relative size of the meal compared to the biggest meal being 1. [ 1/2 ] Breakfast: [ 1/2 ] Lunch: [ 1 ] Dinner: Snack [Yes]: Drinks: Scheduled exercise:walking daily [No] Associated HYPOglycemia Blood Glucose Monitoring Results, Interpretation, Report: Indication for CGM: Evaluate for hyperglycemia and hypoglycemia Glucometer: Method: [] CGM: [DEXCOM G6 Pt in target range majority of the time. Other time post prandial hyperglycemia. No hypoglycemia Diabetes-related symptoms and information: [No] Hypoglycemia [no] Increasing urination [no] Increasing drinking/thirst [No] Weight loss [No] Recent changes in vision [No] Chest pain/pressure [no] Nausea [no] Vomiting [Yes] Early satiety [Yes] Feet numbness/pain/tingling [Yes] Patient seeing parasitologist/clothes marker regularly [Yes] Patient seeing dentist regularly [No] Patient seeing medical record specialist regularly REVIEW OF SYSTEMS Review of Systems Constitutional: Negative for appetite change, chills, fatigue and unexpected weight change. Eyes: Negative for visual disturbance. Cardiovascular: Negative for chest pain. Gastrointestinal: Negative for abdominal pain, constipation, diarrhea and nausea. Endocrine: Negative for cold intolerance, heat intolerance, polydipsia, polyphagia and polyuria. Genitourinary: Negative for dysuria. Neurological: Negative for numbness. Past Medical History: Diagnosis Date Complex regional pain syndrome affecting both upper arms Coronary artery disease Diabetes mellitus (CMS/HCC) Hyperlipidemia Hypertension Type 2 diabetes mellitus (CMS/HCC) Past Surgical History: Procedure Laterality Date CARDIAC CATHETERIZATION CARPAL TUNNEL RELEASE CHOLECYSTECTOMY CORONARY STENT PLACEMENT HYSTERECTOMY Allergies Allergen Reactions Adhesive Other Blistering Desonide Dermatitis and Other patient unaware but hx of TBI so she may not recall Latex Anaphylaxis, Itching and Unknown Sulfa (Sulfonamide Antibiotics) Hives Ciprofloxacin Hives Codeine Hives Erythromycin Hives Erythromycin Base Hives Penicillins Hives Family History Problem Relation Name Age of Onset Coronary artery disease Mother Heart attack Mother Cancer Mother Heart attack Father 54 reports that she quit smoking about 9 months ago. Her smoking use included cigarettes. She has a 26.00 pack-year smoking history. She has never been exposed to tobacco smoke. She has never used smokeless tobacco. She reports current alcohol use. She reports current drug use. Frequency: 3.00 times per week. Drug: Marijuana. PHYSICAL EXAM: Vitals: 05/15/23 0953 05/15/23 0954 BP: 126/69 105/55 BP Location: Right arm Left arm Patient Position: Sitting Sitting BP Cuff Size: Large adult Large adult Pulse: 83 SpO2: 96% Weight: 113 kg (249 lb) Height: 1.753 m (5' 9.02 ) Wt Readings from Last 3 Encounters: 05/15/23 113 kg (249 lb) 03/01/23 109 kg (240 lb) 12/13/22 108 kg (237 lb) Body mass index is 36.75 kg/m???. General appearance: Obese female in no apparent distress. HEENT: EOMI, oropharynx clear, mucous membranes moist. Neck: Supple Cardiac: RRR, no murmurs, rubs or gallops. Respiratory: No respiratory distress currently Extremities: No lower extremity edema. No foot deformities. Skin: No skin lesions. No lipohypertrophy at insulin injection sites. Neuro: A & O x 3. Psych: Mood and affect are appropriate. LABS: Last HbA1c: Lab Results Component Value Date HGBA1C 9.3 10/05/2022 ASSESSMENT/PLAN: Jacquelyn Zeng has poorly controlled diabetes mellitus [Type 2 (more content not included)... [facility] 04-18-2023 Note Patient Education Ma terials Follows: [facility] 03-25-2023 Miscellaneous Notes Summary: 04/09 reschedule Galo Donato, I called this patient to reschedule her botox injection and let her know your next available appointment is in the beginning of May. I offered to schedule her with another provider but she was unwilling to see anyone but you. She requested that she be fit in and she gave these dates as acceptable to reschedule: 04/02,04/22,04/23, 04/24, 04/26, 04/29, 05/01, 05/02 and 05/03. She requested a call back once a solution is found. Please advise. Thank you, Raquel documented in this encounter [facility] 03-07-2023 Note REASON FOR VISIT: Jacquelyn Zeng is a 47 y.o. female who requested telemed visit today instead of in-person visit due to illness. Date of phone call: 03/07/2023 Total time spent in Medical Discussion: 10 minutes. Total 15 minutes. Pt reports she has respiratory flu on prednisone 50 mg daily. Shes noticed more post prandial hyperglycemia into 200s, not so much 300s. No hypogylcemia. She feels pretty drained. No issues with pump or CGM supplies. She is in auto mode with omnipod 5 majority of time. HbA1C: 9.3% 10/05/2022 --> 7.3% 03/07/2023 (reported) Pt reports in July 2022 it was 10.9% Current Regimen: Omnipod 5 with Dexcom G6 Previous subcutaneous regimen: Lantus 40 units BID Novolog high intensity correction scale ( 5-25 units) Farxiga 10 mg Metformin 1000 mg BID Compliance: good DIABETES HISTORY: Diabetes Mellitus [Type 2] Tried ozempic and trulciity in past and had diarrhea Onset of diabetes(at age OR at which year?): 27 years ago after she had first baby [ X ] Family history of diabetes: If yes, who and age of diagnosis?: Parents with type 2 Complications: Known diabetic complications: autonomic neuropathy, peripheral neuropathy, and cardiovascular disease Eye exam current (within one year): yes Diabetes education: [No] Seen by a [employer] certified internetwork expert (CDE) within 12 months Meal plan: [No] Seen by a generalist within 12 months [ ] Consistent carbohydrate diet [ ] Carbohydrate counting Meal size, estimated per patient: How many meals: [ 1 + 2 small meals ] Biggest meal: [ dinner] Relative size of the meal compared to the biggest meal being 1. [ 1/2 ] Breakfast: [ 1/2 ] Lunch: [ 1 ] Dinner: Snack [Yes]: Drinks: Scheduled exercise:walking daily [No] Associated HYPOglycemia Blood Glucose Monitoring Results, Interpretation, Report: Indication for CGM: Evaluate for hyperglycemia and hypoglycemia Glucometer: Method: [] CGM: [DEXCOM G6 Reported sensor readings: 100-130 in the morning, and usually mid 100s pre meal. Some post prandial hyperglycemia in 200s especially after starting steroid. Diabetes-related symptoms and information: [No] Hypoglycemia [no] Increasing urination [no] Increasing drinking/thirst [No] Weight loss [No] Recent changes in vision [No] Chest pain/pressure [Yes] Nausea [Yes] Vomiting [Yes] Early satiety [Yes] Feet numbness/pain/tingling [Yes] Patient seeing parasitologist/clothes marker regularly [Yes] Patient seeing dentist regularly [No] Patient seeing medical record specialist regularly REVIEW OF SYSTEMS Review of Systems Constitutional: Positive for appetite change (decreased) and fatigue. Negative for chills and unexpected weight change. HENT: Positive for congestion. Eyes: Negative for visual disturbance. Respiratory: Positive for cough. Cardiovascular: Negative for chest pain. Gastrointestinal: Negative for abdominal pain, constipation, diarrhea and nausea. Endocrine: Negative for cold intolerance, heat intolerance, polydipsia, polyphagia and polyuria. Genitourinary: Negative for dysuria. Neurological: Negative for numbness. Past Medical History: Diagnosis Date Complex regional pain syndrome affecting both upper arms Coronary artery disease Diabetes mellitus (CMS/HCC) Hyperlipidemia Hypertension Type 2 diabetes mellitus (CMS/HCC) Past Surgical History: Procedure Laterality Date CARDIAC CATHETERIZATION CARPAL TUNNEL RELEASE CHOLECYSTECTOMY CORONARY STENT PLACEMENT HYSTERECTOMY Allergies Allergen Reactions Adhesive Other Blistering Desonide Dermatitis and Other patient unaware but hx of TBI so she may not recall Latex Anaphylaxis, Itching and Unknown Sulfa (Sulfonamide Antibiotics) Hives Ciprofloxacin Hives Codeine Hives Erythromycin Hives Erythromycin Base Hives Penicillins Hives Family History Problem Relation Name Age of Onset Coronary artery disease Mother Heart attack Mother Cancer Mother Heart attack Father 54 reports that she quit smoking about 7 months ago. Her smoking use included cigarettes. She has a 26.00 pack-year smoking history. She has never been exposed to tobacco smoke. She has never used smokeless tobacco. She reports current alcohol use. She reports current drug use. Frequency: 3.00 times per week. Drug: Marijuana. PHYSICAL EXAM: NO physical exam was conducted. Wt Readings from Last 3 Encounters: 03/01/23 109 kg (240 lb) 12/13/22 108 kg (237 lb) 11/19/22 107 kg (236 lb) LABS: Last HbA1c: Lab Results Component Value Date HGBA1C 9.3 10/05/2022 ASSESSMENT/PLAN: Jacquelyn Zeng has poorly controlled diabetes mellitus [Type 2] complicated by autonomic neuropathy, peripheral neuropathy, and cardiovascular disease.Diagnoses and all orders for this visit: Type 2 diabetes mellitus with hyperglycemia, with long-term current use of insulin ([facility] [facility]) - insulin pump cart,automated,BT (Omnipod 5 G6 Pods, Gen 5,) cartridg (more content not included)... [facility] 03-01-2023 Note Stable [facility] 03-01-2023 Note Coronary artery dise ase is stable Continue GDMT- ASA, plavix, lipitor 80 mg, fenofibrate, imdur, toprol continue risk factor modifications- heart healthy diet, regular exercise as tolerated and continue all medications. [facility] 03-01-2023 Note Lipid abnormalities are not much improved and d/w pt about initiation of Leqvio for better HPL management of Chol, Trig and LDL in light of CAD, DM and she voiced agreement. In light of h/o pancreatitis she is not a candidate for Vascepa. [facility] 03-01-2023 Note [facility] CARDIOLOGY PROGR ESS NOTE HPI: Jacquelyn Zeng is a 47 y.o. female here for CAD, HTN, and HPL Patient here for 3 mo follow up CAD, hypertension, and hyperlipidemia. Had lipid profile last week. Says chest pain and SOB has resolved. Energy level has improved also. She's feeling better. Insurance switched her from [employer] to [employer]. States she has been exercising on a regular regime, following a heart healthy low chol diet. Review of Systems Cardiovascular: Positive for palpitations. Musculoskeletal: Positive for arthritis, back pain, joint pain and myalgias. All other systems reviewed and are negative. Visit Vitals BP 109/51 (BP Location: Left arm, Patient Position: Sitting) Pulse 97 Ht 1.753 m (5' 9 ) Wt 109 kg (240 lb) SpO2 96% BMI 35.44 kg/m??? OB Status Having periods Smoking Status Former BSA 2.3 m??? Allergies Allergen Reactions Adhesive Other Blistering Desonide Dermatitis and Other patient unaware but hx of TBI so she may not recall Latex Anaphylaxis, Itching and Unknown Sulfa (Sulfonamide Antibiotics) Hives Ciprofloxacin Hives Codeine Hives Erythromycin Hives Erythromycin Base Hives Penicillins Hives Medications: Current Outpatient Medications on File Prior to Visit Medication Sig Dispense Refill aspirin 81 mg chewable tablet Chew 1 tablet (81 mg) in the morning. 90 tablet 3 atorvastatin (Lipitor) 80 mg tablet Take 1 tablet (80 mg) by mouth in the morning. 90 tablet 3 clopidogrel (Plavix) 75 mg tablet Take 1 tablet (75 mg) by mouth in the morning. 90 tablet 3 cyclobenzaprine (Flexeril) 5 mg tablet cyclobenzaprine 5 mg tablet cyproheptadine (Periactin) 4 mg tablet cyproheptadine 4 mg tablet TAKE 1 TABLET BY MOUTH TWICE DAILY dihydroergotamine (DHE) 1 mg/mL injection INJECT 1 (ONE) ml NEEDED. max OF 3ml per 24 hours, 6mg per week estradiol (Estrace) 1 mg tablet TAKE 1 TABLET BY MOUTH DAILY FOR 14 DAYS then TAKE 1 TABLET BY MOUTH twice a week eszopiclone (Lunesta) 3 mg tablet TAKE 1 TABLET BY MOUTH immediately BEFORE bedtime fenofibrate (Lofibra) 160 mg tablet Take 1 tablet by mouth in the morning. furosemide (Lasix) 40 mg tablet Take 1 tablet (40 mg) by mouth in the morning. 90 tablet 3 glipiZIDE (Glucotrol) 10 mg tablet Take 10 mg by mouth before breakfast and before evening meal. hydrOXYzine HCL (Atarax) 50 mg tablet hydroxyzine HCl 50 mg tablet TAKE 1 TABLET BY MOUTH EVERY 8 HOURS NEEDED FOR ANXIETY insulin aspart (NovoLOG) 100 unit/mL injection For use in insulin pump. Max daily dose 80 units daily. 30 mL 2 insulin glargine (Lantus) 100 unit/mL (3 mL) pen Lantus Solostar U-100 Insulin 100 unit/mL (3 mL) subcutaneous pen INJECT 40 UNITS SUBCUTANEOUSLY TWICE DAILY insulin pump cart,auto,BT-cntr (Omnipod 5 G6 Intro Kit, Gen 5,) cartridge Inject 1 each under the skin every 3 (three) days. Apply 1 pod every 3 days under the skin 1 each 0 insulin pump cart,automated,BT (Omnipod 5 G6 Pods, Gen 5,) cartridge Inject 1 each under the skin every other day. 15 each 2 insulin syringe-needle U-100 (BD Insulin Syringe Ultra-Fine) 31G X 5/16 0.5 mL syringe Use to refill insulin pump every 3 days. 100 each 11 isosorbide mononitrate ER (Imdur) 30 mg 24 hr tablet Take 1 tablet (30 mg) by mouth in the morning. Do not crush or chew. 90 tablet 3 Jardiance 25 mg Take 25 mg by mouth in the morning. ketorolac 30 mg/mL syringe INJECT 1 (ONE) ml INTRAMUSCULARLY TWICE DAILY NEEDED lamoTRIgine (LaMICtal) 200 mg tablet Take 1 tablet by mouth in the morning. hyobap-nvzcuwke-kkhppqk (Zenpep) 40,000-126,000- 168,000 unit capsule,delayed release(DR/EC) Zenpep 40,000 unit-126,000 unit-168,000 unit capsule,delayed release TAKE 1 CAPSULE BY MOUTH THREE TIMES DAILY magnesium oxide (Mag-Ox) 400 mg (241.3 mg magnesium) tablet Take 1 tablet by mouth in the morning. meclizine (Antivert) 25 mg tablet meclizine 25 mg tablet TAKE 1 TABLET BY MOUTH FOUR TIMES DAILY NEEDED metFORMIN (Glucophage) 1,000 mg tablet Take 1,000 mg by mouth in the morning and at bedtime. metoclopramide (Reglan) 10 mg tablet Take 10 mg by mouth in the morning, noon, at afternoon, at bedtime,. metoprolol succinate XL (Toprol-XL) 25 mg 24 hr tablet Take 1 tablet (25 mg) by mouth in the morning. Do not crush or chew. 90 tablet 3 NUTRITIONAL SUPPLEMENTS ORAL Patient uses medical marijuana, gummies,powder. nystatin (Mycostatin) 100,000 unit/gram powder APPLY 1 application TO THE AFFECTED AREA(S) THREE TIMES DAILY pregabalin (Lyrica) 200 mg capsule Take 200 mg by mouth in the morning, afternoon, and at bedtime. prochlorperazine (Compazine) 10 mg tablet prochlorperazine maleate 10 mg tablet TAKE 1 TABLET BY MOUTH EVERY 6 HOURS NEEDED tiZANidine (Zanaflex) 4 mg tablet Take 8 mg by mouth at bedtime. venlafaxine 225 mg 24 hr tablet Take 225 mg by mouth in the morning. with food albuterol 2.5 mg /3 mL (0.083 %) nebulizer solution albuterol sulfate 2.5 mg/3 mL (more content not included)... [facility] 03-01-2023 Note Patient here for 3 m o follow up CAD, hypertension, and hyperlipidemia. Had lipid profile last week. Says chest pain and SOB has resolved. Energy level has improved also. She's feeling better. Insurance switched her from [employer] to [employer]. Review of Systems Cardiovascular: Positive for palpitations. Musculoskeletal: Positive for arthritis, back pain, joint pain and myalgias. All other systems reviewed and are negative. [facility] 01-02-2023 Instructions 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 APRN.CNP - 01/02/2023 9:10 AM EDT Instruction after Botox injection: - If you have any pain or swelling use ice, 20 min on and 20 min off. Do not rub or massage the area for 24 hrs. - If you have any neck stiffness, you may use heat and do stretching exercises. - This should improve over the next 5 days. - If it does not, call our office at [phone] for further instructions. documented in this encounter [facility] 01-02-2023 Note HNO ID: [id number] Author: 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 APRN.CNP Service: ? Author Type: Nurse Practitioner Type: Procedures Filed: 01/02/2023 9:25 AM Note Text: Headache Center Follow-up Visit Current Preventive: PREEMPT Botox, Qulipta (working well for her!), periactin, lyria, lamictal Current Abortive: fioricet - 3 times in the last month and a half, compazine, toradol (has not had to use - only for severe headaches), DHE - used 4 - 5 times since her last visit Miscellaneous Patient Concerns: Ice caps work well for her! Impression: Intractable chronic migraine without aura and without status migrainosus (primary encounter diagnosis) Chronic daily headache Jacquelyn Zeng has been previously approved for an Oral Calcitonin Gene-Related Peptide Receptor Antagonist (GEPANT) Atogepant for the treatment of chronic migraine. The patient has demonstrated the following: Provider attests patient has had a positive clinical response: Yes Patient will not use with another Oral Calcitonin Gene-Related Peptide Receptor Antagonist (GEPANT): Yes Patient's quality of life and ability to perform ADLs has improved: Yes We suggest the patient continue treatment with GEPANT Atogepant. The following preventative medications have been tried for three or more months without benefit: Anti-Convulsant Gabapentin (Neurontin) Oxcarbazepine (Trileptal) Pregabalin (Lyrica) Topiramate (Topamax, Trokendi XL, Qudexy) Anti-Depressant and Antipsychotic Amitriptyline (Elavil) Citalopram (Celexa) Venlafaxine (Effexor) Blood Pressure Lisinopril (Zestril) Supplements Magnesium The following abortive medications have been tried but require high frequency use which can lead to Medication Overuse Headache: Analgesic Hydromorphone (Dilaudid) Anti-Anxiety Buspirone (Buspar) Anti-Migraine Dihydroergotamine (DHE-45, Migranal) Over the Counter Medications Acetaminophen (Tylenol) Follow-Up Onabotulinum Toxin A (BotoxTM) for Migraine Indication: Chronic Intractable Migraine Treatment #: 7 Referral Expiration: 09/17/2023 Prior to the initiation of the FIRST treatment with Onabotulinum Toxin A, the patient reported the following average headache frequency over the past 3 MONTHS: Number of moderate-severe migraine days/month: 30 (daily) Number of mild migraine days/month: 0 Number of headache free days/month: 0 (0 headache-free hours) Migraine severity: 8/10 After treatment with Onabotulinum Toxin A: Number of moderate-severe migraine days/month: 10 Number of mild migraine days/month: 20 Number of headache free days/month: 0 (0 headache-free hours) Migraine severity: 6/10 Patient reduction in overall migraine days: No Patient reduction in moderate-severe migraine days: Yes Patient reduction of headache hours by 100 hours or more: No Individual has obtained clinical benefit deemed significant by individual or prescriber (Y/N): Yes Patient's quality of life and ability to perform ADLs has improved (Y/N): Yes - she has had to lay down due to nausea. her occipital blocks are also delayed locally. Side effects: none Wearing off: Yes - 10 weeks after treatment The patient has been assessed for disorders which could contribute to breathing or swallowing difficulty, and there is no contraindication with PREEMPT Botox. There is no documented allergic reaction/hypersensitivity to any botulinum toxin and there is no active infection at proposed injection site. HEADACHE SCORES: Headache Questions 06/08/2021 09/07/2021 ER visits since last office visit: 0 0 Hospital stays since last office visit 0 0 Limited ADLs in the last month: 26 14 Days missed from work or school in the last month: 26 - Days headache pain free in the last month: 0 7 Days per month with ALL of the following symptoms - decreased productivity, light sensitivity and nausea: 26 10 Initial improvement of headache after botox injection at last visit: Not applicable, I did not have a botox injection at my last visit Much improved PRN medication usage in the last month: 26 10 Patient impression of improvement since last visit: Very much worse Much improved HIT-6 06/08/2021 09/07/2021 HIT-6 78 (Severe impact) 65 (Severe impact) MAYNOR - 2/7 SCORES 06/08/2021 09/07/2021 MAYNOR-2 Score 1 3 MAYNOR-7 Score - 11 PHQ-9 11/07/2016 06/08/2021 09/07/2021 Score 17 15 17 BP 127/76 Pulse 97 Patient name: Jacquelyn Zeng : 1975 ALLERGIES Allergen Reactions Desonide Other: See Comments patient unaware but hx of TBI so she may not recall Latex Anaphylaxis, Itching Ciprofloxacin Unknown Codeine Hives Erythromycin Hives Latex Itching Penicillin V Hives Sulfa (Sulfonamide * Hives UNIVERSAL PROTOCOL / SAFETY CHECKLIST Procedure: Onabotulinum toxin A for migraine Informed Consent Consent Obtained: Written [place] Protocol A moment to CARE was completed SIGN IN Personnel directly involved with the proce (more content not included)... [facility] 01-02-2023 Procedure note Headache Center Follow-up Visit Current Preventive: PREEMPT Botox, Qulipta (working well for her!), periactin, lyria, lamictal Current Abortive: fioricet - 3 times in the last month and a half, compazine, toradol (has not had to use - only for severe headaches), DHE - used 4 - 5 times since her last visit Miscellaneous Patient Concerns: Ice caps work well for her! Impression: Intractable chronic migraine without aura and without status migrainosus (primary encounter diagnosis) Chronic daily headache Jacquelyn Zeng has been previously approved for an Oral Calcitonin Gene-Related Peptide Receptor Antagonist (GEPANT) Atogepant for the treatment of chronic migraine. The patient has demonstrated the following: Provider attests patient has had a positive clinical response: Yes Patient will not use with another Oral Calcitonin Gene-Related Peptide Receptor Antagonist (GEPANT): Yes Patient's quality of life and ability to perform ADLs has improved: Yes We suggest the patient continue treatment with GEPANT Atogepant. The following preventative medications have been tried for three or more months without benefit: Anti-Convulsant Gabapentin (Neurontin) Oxcarbazepine (Trileptal) Pregabalin (Lyrica) Topiramate (Topamax, Trokendi XL, Qudexy) Anti-Depressant and Antipsychotic Amitriptyline (Elavil) Citalopram (Celexa) Venlafaxine (Effexor) Blood Pressure Lisinopril (Zestril) Supplements Magnesium The following abortive medications have been tried but require high frequency use which can lead to Medication Overuse Headache: Analgesic Hydromorphone (Dilaudid) Anti-Anxiety Buspirone (Buspar) Anti-Migraine Dihydroergotamine (DHE-45, Migranal) Over the Counter Medications Acetaminophen (Tylenol) Follow-Up Onabotulinum Toxin A (BotoxTM) for Migraine Indication: Chronic Intractable Migraine Treatment #: 7 Referral Expiration: 09/17/2023 Prior to the initiation of the FIRST treatment with Onabotulinum Toxin A, the patient reported the following average headache frequency over the past 3 MONTHS: Number of moderate-severe migraine days/month: 30 (daily) Number of mild migraine days/month: 0 Number of headache free days/month: 0 (0 headache-free hours) Migraine severity: 8/10 After treatment with Onabotulinum Toxin A: Number of moderate-severe migraine days/month: 10 Number of mild migraine days/month: 20 Number of headache free days/month: 0 (0 headache-free hours) Migraine severity: 10/20 Patient reduction in overall migraine days: No Patient reduction in moderate-severe migraine days: Yes Patient reduction of headache hours by 100 hours or more: No Individual has obtained clinical benefit deemed significant by individual or prescriber (Y/N): Yes Patient's quality of life and ability to perform ADLs has improved (Y/N): Yes - she has had to lay down due to nausea. her occipital blocks are also delayed locally. Side effects: none Wearing off: Yes - 10 weeks after treatment The patient has been assessed for disorders which could contribute to breathing or swallowing difficulty, and there is no contraindication with PREEMPT Botox. There is no documented allergic reaction/hypersensitivity to any botulinum toxin and there is no active infection at proposed injection site. HEADACHE SCORES: Headache Questions 06/08/2021 09/07/2021 ER visits since last office visit: 0 0 Hospital stays since last office visit 0 0 Limited ADLs in the last month: 26 14 Days missed from work or school in the last month: 26 - Days headache pain free in the last month: 0 7 Days per month with ALL of the following symptoms - decreased productivity, light sensitivity and nausea: 26 10 Initial improvement of headache after botox injection at last visit: Not applicable, I did not have a botox injection at my last visit Much improved PRN medication usage in the last month: 26 10 Patient impression of improvement since last visit: Very much worse Much improved HIT-6 06/08/2021 09/07/2021 HIT-6 78 (Severe impact) 65 (Severe impact) MAYNOR - 2/7 SCORES 06/08/2021 09/07/2021 AMYNOR-2 Score 1 3 MAYNOR-7 Score - 11 PHQ-9 11/07/2016 06/08/2021 09/07/2021 Score 17 15 17 BP 127/76 Pulse 97 Patient name: Jacquelyn Zeng : 1975 ALLERGIES Allergen Reactions Desonide Other: See Comments patient unaware but hx of TBI so she may not recall Latex Anaphylaxis, Itching Ciprofloxacin Unknown Codeine Hives Erythromycin Hives Latex Itching Penicillin V Hives Sulfa (Sulfonamide * Hives UNIVERSAL PROTOCOL / SAFETY CHECKLIST Procedure: Onabotulinum toxin A for migraine Informed Consent Consent Obtained: Written [place] Protocol A moment to CARE was completed SIGN IN Personnel directly involved with the procedure wore the appropriate PPE Special Equipment: N/A Patient/Surrogate Stated/Verified: Patient name, Date of , Relevant allergies and Intended procedure TIME OUT Intended patient and procedure match the source document(s) Consent documented and matches the intended procedure No relevant labs, photos, and/or imaging studies were applicable for review. No correct side/site applicable for marking and visibility. Medications required for procedure verified. No fire risk assessment and interventions applicable. No implant(s) inserted. SIGN OUT No specimen collected. No instruments, equipment or retained foreign bodies applicable. Post-procedure follow-up management communicated and Plan of Care Visit completed when applicable Written Consent Obtained: Written LOT #: [id number] Expiration Date: Month: 2 Year: 2025 Injection Sites Left (Units) Left (Sites) Right (Units) Right (Sites) TOTAL (Units) Mobile Sales Technician 5 1 5 1 10 Procerus Units: 5 Sites: 1 5 Frontalis 10 2 10 2 20 Temporalis optional follow the pain 20 15 4 3 20 10 4 2 65 Occipitalis optional follow the pain 15 10 3 2 15 10 3 2 50 Cervical PSP 10 2 10 2 20 Trapezius 15 3 15 3 30 Total Units used: 200 Total Units wasted: 0 Prior Therapies Duration of Use Dose Side effect Other Therapies Chiropractic Physical therapy Analgesic Hydromorphone (Dilaudid) Anti-Anxiety Buspirone (Buspar) Anti-Convulsant Gabapentin (Neurontin) Oxcarbazepine (Trileptal) Pregabalin (Lyrica) Topiramate (Topamax, Trokendi XL, Qudexy) Anti-Depressant and Antipsychotic Amitriptyline (Elavil) Citalopram (Celexa) Venlafaxine (Effexor) Anti-Migraine Dihydroergotamine (DHE-45, Migranal) Blood Pressure Lisinopril (Zestril) Supplements Magnesium Over the Counter Medications Acetaminophen (Tylenol) 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 APRN.CHIEF TECHNOLOGY OFFICER documented in this encounter [facility] 12-19-2022 Note Patient Education Ma terials Follows: [facility] 12-13-2022 Note REASON FOR VISIT: Jacquelyn Zeng is a 47 y.o. female who is being seen today as follow up for evaluation of her diabetes. HbA1C: 9.3% 10/05/2022 Pt reports in July 2022 it was 10.1% Current Regimen: Omnipod 5 with Dexcom G6 Previous subcutaneous regimen: Lantus 40 units BID Novolog high intensity correction scale ( 5-25 units) Farxiga 10 mg Metformin 1000 mg BID Glipizide 10 mg with dinner Tried ozempic and trulciity in past and had diarrhea Compliance: good Today Pt started omnipod and likes it. She also is trying to adhere to low carb diet. No acute issues. DIABETES HISTORY: Diabetes Mellitus [Type 2] Onset of diabetes(at age OR at which year?): 27 years ago after she had first baby [ X ] Family history of diabetes: If yes, who and age of diagnosis?: Parents with type 2 Complications: Known diabetic complications: autonomic neuropathy, peripheral neuropathy, and cardiovascular disease Eye exam current (within one year): yes Diabetes education: [No] Seen by a [employer] certified internetwork expert (CDE) within 12 months Meal plan: [No] Seen by a generalist within 12 months [ ] Consistent carbohydrate diet [ ] Carbohydrate counting Meal size, estimated per patient: How many meals: [ 1 + 2 small meals ] Biggest meal: [ dinner] Relative size of the meal compared to the biggest meal being 1. [ 1/2 ] Breakfast: [ 1/2 ] Lunch: [ 1 ] Dinner: Snack [Yes]: Drinks: Scheduled exercise:walking daily [No] Associated HYPOglycemia Blood Glucose Monitoring Results, Interpretation, Report: Indication for CGM: Evaluate for hyperglycemia and hypoglycemia Glucometer: Method: [] CGM: [DEXCOM G6 She uses her phone but unable to login to clarity, issues with account. Pt in target range majority of the time. Other time post prandial hyperglycemia. No hypoglycemia Diabetes-related symptoms and information: [No] Hypoglycemia [Yes] Increasing urination [Yes] Increasing drinking/thirst [No] Weight loss [No] Recent changes in vision [No] Chest pain/pressure [Yes] Nausea [Yes] Vomiting [Yes] Early satiety [Yes] Feet numbness/pain/tingling [Yes] Patient seeing parasitologist/clothes marker regularly [Yes] Patient seeing dentist regularly [No] Patient seeing medical record specialist regularly REVIEW OF SYSTEMS Review of Systems Constitutional: Negative for appetite change, chills, fatigue and unexpected weight change. Eyes: Negative for visual disturbance. Cardiovascular: Negative for chest pain. Gastrointestinal: Negative for abdominal pain, constipation, diarrhea and nausea. Endocrine: Negative for cold intolerance, heat intolerance, polydipsia, polyphagia and polyuria. Genitourinary: Negative for dysuria. Neurological: Negative for numbness. Past Medical History: Diagnosis Date Complex regional pain syndrome affecting both upper arms Diabetes mellitus (CMS/HCC) Type 2 diabetes mellitus (CMS/HCC) Past Surgical History: Procedure Laterality Date CARPAL TUNNEL RELEASE CHOLECYSTECTOMY HYSTERECTOMY Current Outpatient Medications: albuterol 2.5 mg /3 mL (0.083 %) nebulizer solution, albuterol sulfate 2.5 mg/3 mL (0.083 %) solution for nebulization INHALE 1 (ONE) vial via NEBULIZER EVERY 4 HOURS NEEDED, Disp: , Rfl: alpha lipoic acid 600 mg capsule, alpha lipoic acid 600 mg capsule TAKE 1 CAPSULE BY MOUTH DAILY, Disp: , Rfl: ALPRAZolam (Xanax) 0.5 mg tablet, 1 mg., Disp: , Rfl: ALPRAZolam (Xanax) 1 mg tablet, TAKE 1 TABLET BY MOUTH DAILY NEEDED FOR ANXIETY MUST LAST 30 DAYS, Disp: , Rfl: ARIPiprazole (Abilify) 10 mg tablet, Take 20 mg by mouth in the morning., Disp: , Rfl: ascorbic acid (Vitamin C) 1,000 mg tablet, Take 1,000 mg by mouth., Disp: , Rfl: aspirin 81 mg chewable tablet, Chew 1 tablet (81 mg) in the morning., Disp: 90 tablet, Rfl: 3 atogepant (Qulipta) 60 mg tablet, , Disp: , Rfl: atorvastatin (Lipitor) 80 mg tablet, Take 1 tablet (80 mg) by mouth in the morning., Disp: 90 tablet, Rfl: 3 grnyqezcyo-oadvwrwwzhjtm-lhwy (Fioricet) 50-300-40 mg capsule, TAKE 1 CAPSULE BY MOUTH EVERY 6 HOURS NEEDED, Disp: , Rfl: Vs-E2-zma-esii-fjg-udac-boron (Caltrate 600-D Plus Minerals) 600 mg calcium- 800 unit-40 mg tablet,chewable, Chew., Disp: , Rfl: clopidogrel (Plavix) 75 mg tablet, Take 1 tablet (75 mg) by mouth in the morning., Disp: 90 tablet, Rfl: 3 cyclobenzaprine (Flexeril) 5 mg tablet, cyclobenzaprine 5 mg tablet, Disp: , Rfl: cyproheptadine (Periactin) 4 mg tablet, cyproheptadine 4 mg tablet TAKE 1 TABLET BY MOUTH TWICE DAILY, Disp: , Rfl: dapagliflozin (Farxiga) 10 mg, Farxiga 10 mg tablet, Disp: , Rfl: dihydroergotamine (DHE) 1 mg/mL injection, INJECT 1 (ONE) ml NEEDED. max OF 3ml per 24 hours, 6mg per week, Disp: , Rfl: estradiol (Estrace) 1 mg tablet, TAKE 1 TABLET BY MOUTH DAILY FOR 14 DAYS then TAKE 1 TABLET BY MOUTH twice a week, Disp: , Rfl: eszopiclone (Lunesta) 3 mg tablet, TAKE 1 TABLET BY MOUTH immedia (more content not included)... [facility] 11-19-2022 Note [place] [facility] - [facility] Subjective Jacquelyn Zeng is a 47 y.o. year old female patient being seen for 3 month F/U pt states she is sill having chest pain.Follow-up and Chest Pain Patient Active Problem List Diagnosis Type 2 diabetes mellitus without complication, without long-term current use of insulin (CMS/HCC) Mixed hyperlipidemia Benign essential HTN Tobacco dependence Mild intermittent asthma without complication Unstable angina (CMS/HCC) HA[place]NE (dyspnea on exertion) Edema of both lower extremities Cervico-occipital neuralgia Chronic obstructive asthma, unspecified Chronic pain syndrome Complex regional pain syndrome Closed fracture of coronoid process of ulna Degeneration of lumbosacral intervertebral disc Fracture of ulna Medication overuse headache Memory deficit Postconcussion syndrome 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 Migraine Generalized anxiety disorder Panic disorder Severe major depression, single episode, without psychotic features (CMS/HCC) Family history of early CAD Mixed hyperlipidemia due to type 2 diabetes mellitus (CMS/HCC) Coronary artery disease involving samish coronary artery of samish heart without angina pectoris S/P drug eluting coronary stent placement Polycystic ovaries Adhesive capsulitis of left shoulder Anxiety Depression Diabetes mellitus (CMS/HCC) Neuropathic pain Optic nerve disorder Osteoarthritis Vertigo Cervical radiculopathy at C6 Bilateral occipital neuralgia Hypercholesterolemia Family History Problem Relation Name Age of Onset Coronary artery disease Mother Heart attack Mother Cancer Mother Heart attack Father 54 Social History Tobacco Use Smoking status: Former Packs/day: 1.00 Years: 26.00 Pack years: 26.00 Types: Cigarettes Quit date: 07/26/2022 Years since quittin.3 Passive exposure: Never Smokeless tobacco: Never Substance Use Topics Alcohol use: Yes Comment: rarely Drug use: Yes Frequency: 3.0 times per week Types: Marijuana Comment: Has MM card. HPI Jacquelyn Zeng is a 47 y.o. female who was recently evaluated in cardiology clinic because of unstable anginal symptoms that led to an emergency room admission. She underwent a stress test that showed defect in the distal zandra-apical wall. She was referred for cardiac Catheterization on 07/27/2022 that showed severe disease in the right coronary artery for which she underwent a drug-eluting stent. Her atorvastatin was increased from 40 mg daily to 80 mg daily. She has been working on diabetes control with her PCP. Today she reports that she has been doing reasonably well. Her prior symptoms of angina that led to her cardiac catheterization procedure have resolved. However she does report having had episodes of sharp pain on the left side of the chest that happened about 3 times with exertion in the past few weeks and subsided after rest. She is also on furosemide 40 mg daily from before for high blood pressure and lower extremity edema. Currently she denies palpitations and lower extremity edema. Review of Systems Cardiovascular: Positive for chest pain, leg swelling and palpitations. Negative for dyspnea on exertion, irregular heartbeat, orthopnea and syncope. Respiratory: Negative for cough and shortness of breath. Musculoskeletal: Negative for arthritis, falls and neck pain. Gastrointestinal: Negative for diarrhea and dysphagia. Neurological: Negative for light-headedness and loss of balance. Objective Visit Vitals BP 130/68 (BP Location: Left arm) Pulse 87 Wt 107 kg (236 lb) SpO2 98% BMI 34.83 kg/m??? OB Status Having periods Smoking Status Former BSA 2.28 m??? Physical Exam Constitutional: Appearance: She is well-developed. She is obese. She is not ill-appearing. HENT: Head: Normocephalic and atraumatic. Nose: Nose normal. Eyes: General: No scleral icterus. Pupils: Pupils are equal, round, and reactive to light. Neck: Thyroid: No thyromegaly. Vascular: No JVD. Cardiovascular: Rate and Rhythm: Normal rate and regular rhythm. Pulses: Radial pulses are 2+ on the right side and 2+ on the left side. Heart sounds: Normal heart sounds. No murmur heard. No friction rub. No gallop. Pulmonary: Effort: Pulmonary effort is normal. No respiratory distress. Breath sounds: Normal breath sounds. No wheezing or rales. Chest: Chest wall: No tenderness. Abdominal: General: Bowel sounds are normal. There is no distension. Palpations: Abdomen is soft. Tenderness: There is no abdominal tenderness. Musculoskeletal: General: No swelling. Cervical back: Neck supple. Skin: General: Skin is warm and dry. Neurological: General: No focal deficit present. Mental Status: She is alert and oriented to person, place, and time. Psychiatric: Mood and Affect: Mood normal. Behavior: Behavior is cooperative. Judgment: Judgment norm (more content not included)... [facility] 10-10-2022 Instructions 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 APRN.CNP - 10/10/2022 9:31 AM EDT Instruction after Botox injection: - If you have any pain or swelling use ice, 20 min on and 20 min off. Do not rub or massage the area for 24 hrs. - If you have any neck stiffness, you may use heat and do stretching exercises. - This should improve over the next 5 days. - If it does not, call our office at [phone] for further instructions. documented in this encounter [facility] 10-10-2022 Procedure note Headache Center Follow-up Visit Current Preventive: PREEMPT Botox, Qulipta, periactin, lyria, lamictal Current Abortive: fioricet, compazine, toradol, DHE Miscellaneous Patient Concerns: Quit smoking in July! Has gained weight, not noticed pain. Continues to have a headache almost daily - also due for occipital blocks which has warn off. Botox continues to be effective. Only had 2 severe migraines this past month!! Worse in August (up to 4 severe days each month) Follow-Up Onabotulinum Toxin A (BotoxTM) for Migraine Indication: Chronic Intractable Migraine Treatment #: 6 Referral Expiration: 09/17/2023 Prior to the initiation of the FIRST treatment with Onabotulinum Toxin A, the patient reported the following average headache frequency over the past 3 MONTHS: Number of moderate-severe migraine days/month: 30 (daily) Number of mild migraine days/month: 0 Number of headache free days/month: 0 (0 headache-free hours) Migraine severity: 12/20 After treatment with Onabotulinum Toxin A: Number of moderate-severe migraine days/month: 2 Number of mild migraine days/month: 28 Number of headache free days/month: 0 (0 headache-free hours) Migraine severity: 11/19 Patient reduction in overall migraine days: No Patient reduction in moderate-severe migraine days: Yes Patient reduction of headache hours by 100 hours or more: No Individual has obtained clinical benefit deemed significant by individual or prescriber (Y/N): Yes Patient's quality of life and ability to perform ADLs has improved (Y/N): Yes Side effects: none Wearing off: Yes - 11 weeks after treatment The patient has been assessed for disorders which could contribute to breathing or swallowing difficulty, and there is no contraindication with PREEMPT Botox. There is no documented allergic reaction/hypersensitivity to any botulinum toxin and there is no active infection at proposed injection site. HEADACHE SCORES: Headache Questions 06/08/2021 09/07/2021 ER visits since last office visit: 0 0 Hospital stays since last office visit 0 0 Limited ADLs in the last month: 26 14 Days missed from work or school in the last month: 26 - Days headache pain free in the last month: 0 7 Days per month with ALL of the following symptoms - decreased productivity, light sensitivity and nausea: 26 10 Initial improvement of headache after botox injection at last visit: Not applicable, I did not have a botox injection at my last visit Much improved PRN medication usage in the last month: 26 10 Patient impression of improvement since last visit: Very much worse Much improved HIT-6 06/08/2021 09/07/2021 HIT-6 78 (Severe impact) 65 (Severe impact) MAYNOR - 2/7 SCORES 06/08/2021 09/07/2021 MAYNOR-2 Score 1 3 MAYNOR-7 Score - 11 PHQ-9 11/07/2016 06/08/2021 09/07/2021 Score 17 15 17 There were no vitals taken for this visit. Patient name: Jacquelyn Zeng : 1975 ALLERGIES Allergen Reactions Desonide Other: See Comments patient unaware but hx of TBI so she may not recall Latex Anaphylaxis, Itching Ciprofloxacin Unknown Codeine Hives Erythromycin Hives Latex Itching Penicillin V Hives Sulfa (Sulfonamide * Hives UNIVERSAL PROTOCOL / SAFETY CHECKLIST Procedure: Onabotulinum toxin A for migraine Informed Consent Consent Obtained: Written [place] Protocol A moment to CARE was completed SIGN IN Personnel directly involved with the procedure wore the appropriate PPE Special Equipment: N/A Patient/Surrogate Stated/Verified: Patient name, Date of , Relevant allergies and Intended procedure TIME OUT Intended patient and procedure match the source document(s) Consent documented and matches the intended procedure No relevant labs, photos, and/or imaging studies were applicable for review. No correct side/site applicable for marking and visibility. Medications required for procedure verified. No fire risk assessment and interventions applicable. No implant(s) inserted. SIGN OUT No specimen collected. No instruments, equipment or retained foreign bodies applicable. Post-procedure follow-up management communicated and Plan of Care Visit completed when applicable Written Consent Obtained: Written LOT #: [id number] Expiration Date: Month: 12 Year: 2024 Injection Sites Left (Units) Left (Sites) Right (Units) Right (Sites) TOTAL (Units) Mobile Sales Technician 5 1 5 1 10 Procerus Units: 5 Sites: 1 5 Frontalis 10 2 10 2 20 Temporalis optional follow the pain 20 15 4 3 20 10 4 2 65 Occipitalis optional follow the pain 15 10 3 2 15 10 3 2 50 Cervical PSP 10 2 10 2 20 Trapezius 15 3 15 3 30 Total Units used: 200 Total Units wasted: 0 Prior Therapies Duration of Use Dose Side effect Other Therapies Chiropractic Physical therapy Analgesic Hydromorphone (Dilaudid) Anti-Anxiety Buspirone (Buspar) Anti-Convulsant Gabapentin (Neurontin) Oxcarbazepine (Trileptal) Pregabalin (Lyrica) Topiramate (Topamax, Trokendi XL, Qudexy) Anti-Depressant and Antipsychotic Amitriptyline (Elavil) Citalopram (Celexa) Venlafaxine (Effexor) Anti-Migraine Dihydroergotamine (DHE-45, Migranal) Blood Pressure Lisinopril (Zestril) Supplements Magnesium Over the Counter Medications Acetaminophen (Tylenol) 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 APRN.CHIEF TECHNOLOGY OFFICER documented in this encounter [facility] 10-05-2022 Note REASON FOR VISIT: Jacquelyn Zeng is a 47 y.o. female who is being seen today in consultation at the request of Nae Steinberg NP for evaluation of her diabetes. No recent hba1c found in her chart. HbA1C: 9.3% 10/05/2022 Pt reports in July 2022 it was 10.1% Current Regimen: Lantus 40 units BID Novolog high intensity correction scale ( 5-25 units) Farxiga 10 mg Metformin 1000 mg BID Glipizide 10 mg with dinner Tried ozempic and trulciity in past and had diarrhea Compliance: good Today Pt reports her blood sugars were pretty well controlled up until recently. She started Dexamethasone about 6 months ago on and off. She reports she thinks shes taking 2 mg daily right now. She is interested in omnipod 5 pump today. She is using dexcom g6 but forgot her reader today. She wants to start using her smart phone instead DIABETES HISTORY: Diabetes Mellitus [Type 2] Onset of diabetes(at age OR at which year?): 26 years ago after she had first baby [ X ] Family history of diabetes: If yes, who and age of diagnosis?: Parents with type 2 Complications: Known diabetic complications: autonomic neuropathy, peripheral neuropathy, and cardiovascular disease Eye exam current (within one year): yes Diabetes education: [No] Seen by a [employer] certified internetwork expert (CDE) within 12 months Meal plan: [No] Seen by a generalist within 12 months [ ] Consistent carbohydrate diet [ ] Carbohydrate counting Meal size, estimated per patient: How many meals: [ 1 + 2 small meals ] Biggest meal: [ dinner] Relative size of the meal compared to the biggest meal being 1. [ 1/2 ] Breakfast: [ 1/2 ] Lunch: [ 1 ] Dinner: Snack [Yes]: Drinks: Scheduled exercise:walking daily [No] Associated HYPOglycemia Blood Glucose Monitoring Results, Interpretation, Report: Indication for CGM: Evaluate for hyperglycemia and hypoglycemia Glucometer: Method: [] CGM: [DEXCOM G6 Uses a reader but she for it today Based on patient recall: Morning 190- 300 Pre-meal: 200s Bedtime: 200s Rarely <100 Diabetes-related symptoms and information: [No] Hypoglycemia [Yes] Increasing urination [Yes] Increasing drinking/thirst [No] Weight loss [No] Recent changes in vision [No] Chest pain/pressure [Yes] Nausea [Yes] Vomiting [Yes] Early satiety [Yes] Feet numbness/pain/tingling [Yes] Patient seeing parasitologist/clothes marker regularly [Yes] Patient seeing dentist regularly [No] Patient seeing medical record specialist regularly REVIEW OF SYSTEMS Review of Systems Constitutional: Negative for appetite change, chills, fatigue and unexpected weight change. Eyes: Negative for visual disturbance. Cardiovascular: Negative for chest pain. Gastrointestinal: Negative for abdominal pain, constipation, diarrhea and nausea. Endocrine: Negative for cold intolerance, heat intolerance, polydipsia, polyphagia and polyuria. Genitourinary: Negative for dysuria. Neurological: Negative for numbness. Past Medical History: Diagnosis Date Complex regional pain syndrome affecting both upper arms Diabetes mellitus (CMS/HCC) Past Surgical History: Procedure Laterality Date CARPAL TUNNEL RELEASE CHOLECYSTECTOMY HYSTERECTOMY Current Outpatient Medications: albuterol 2.5 mg /3 mL (0.083 %) nebulizer solution, albuterol sulfate 2.5 mg/3 mL (0.083 %) solution for nebulization INHALE 1 (ONE) vial via NEBULIZER EVERY 4 HOURS NEEDED, Disp: , Rfl: alpha lipoic acid 600 mg capsule, alpha lipoic acid 600 mg capsule TAKE 1 CAPSULE BY MOUTH DAILY, Disp: , Rfl: ALPRAZolam (Xanax) 0.5 mg tablet, 1 mg., Disp: , Rfl: ALPRAZolam (Xanax) 1 mg tablet, TAKE 1 TABLET BY MOUTH DAILY NEEDED FOR ANXIETY MUST LAST 30 DAYS, Disp: , Rfl: ARIPiprazole (Abilify) 10 mg tablet, aripiprazole 10 mg tablet, Disp: , Rfl: ascorbic acid (Vitamin C) 1,000 mg tablet, Take 1,000 mg by mouth., Disp: , Rfl: aspirin 81 mg chewable tablet, Chew 1 tablet (81 mg) in the morning., Disp: 90 tablet, Rfl: 3 atogepant (Qulipta) 60 mg tablet, , Disp: , Rfl: atorvastatin (Lipitor) 80 mg tablet, Take 1 tablet (80 mg) by mouth in the morning., Disp: 90 tablet, Rfl: 3 gvmwnotojm-hzhcfgvckrhlw-iqna (Fioricet) 50-300-40 mg capsule, TAKE 1 CAPSULE BY MOUTH EVERY 6 HOURS NEEDED, Disp: , Rfl: Ii-X8-szm-cxlk-gob-icfd-boron (Caltrate 600-D Plus Minerals) 600 mg calcium- 800 unit-40 mg tablet,chewable, Chew., Disp: , Rfl: cholecalciferol (Vitamin D-3) 50 MCG (2000 UT) tablet, cholecalciferol (vitamin D3) 50 mcg (2,000 unit) tablet TAKE 1 TABLET BY MOUTH DAILY, Disp: , Rfl: clopidogrel (Plavix) 75 mg tablet, Take 1 tablet (75 mg) by mouth in the morning., Disp: 90 tablet, Rfl: 3 cyclobenzaprine (Flexeril) 5 mg tablet, cyclobenzaprine 5 mg tablet, Disp: , Rfl: cyproheptadine (Periactin) 4 mg tablet, cyproheptadine 4 mg tablet TAKE 1 TABLET BY MOUTH TWICE DAILY, Disp: , Rfl: dapagliflozin (Farxiga) 10 mg, Farxiga 10 mg tablet, Disp: , Rfl: dih (more content not included)... [facility] 09-20-2022 Note Patient Education Ma terials Follows: [facility] 08-29-2022 Note [facility] CARDIOLOGY PROGR ESS NOTE HPI: Jacquelyn Zeng is a 46 y.o. female here for f/U s/p recent heart cath and PCI of RCA. Denied chest pain, shortness of breath, orthopnea, palpitations. Denied any leg swelling or weight gain. Denied any bleeding tendencies. Overall states she is feeling quite well. States b/p is low frequently and most days she holds lisinopril/hydrochlorothiazide. Review of Systems Constitutional: Negative. Respiratory: Negative. Cardiovascular: Negative. Neurological: Negative. All other systems reviewed and are negative. Visit Vitals BP 110/60 (BP Location: Left arm, Patient Position: Sitting) Pulse 80 Ht 1.753 m (5' 9 ) Wt 102 kg (225 lb 9.6 oz) SpO2 90% BMI 33.32 kg/m??? OB Status Having periods Smoking Status Former BSA 2.23 m??? Allergies Allergen Reactions Adhesive Other Blistering Desonide Dermatitis and Other patient unaware but hx of TBI so she may not recall Latex Anaphylaxis, Itching and Unknown Sulfa (Sulfonamide Antibiotics) Hives Ciprofloxacin Hives Codeine Hives Erythromycin Hives Erythromycin Base Hives Penicillins Hives Medications: Current Outpatient Medications on File Prior to Visit Medication Sig Dispense Refill albuterol 2.5 mg /3 mL (0.083 %) nebulizer solution albuterol sulfate 2.5 mg/3 mL (0.083 %) solution for nebulization INHALE 1 (ONE) vial via NEBULIZER EVERY 4 HOURS NEEDED alpha lipoic acid 600 mg capsule alpha lipoic acid 600 mg capsule TAKE 1 CAPSULE BY MOUTH DAILY ALPRAZolam (Xanax) 0.5 mg tablet 1 mg. ARIPiprazole (Abilify) 10 mg tablet aripiprazole 10 mg tablet ascorbic acid (Vitamin C) 1,000 mg tablet Take 1,000 mg by mouth. aspirin 81 mg chewable tablet Chew 1 tablet (81 mg) in the morning. 90 tablet 3 atogepant (Qulipta) 60 mg tablet atorvastatin (Lipitor) 80 mg tablet Take 1 tablet (80 mg) by mouth in the morning. 90 tablet 3 Tz-O0-ryk-xbjw-htr-ibuh-boron (Caltrate 600-D Plus Minerals) 600 mg calcium- 800 unit-40 mg tablet,chewable Chew. cholecalciferol (Vitamin D-3) 50 MCG (2000 UT) tablet cholecalciferol (vitamin D3) 50 mcg (2,000 unit) tablet TAKE 1 TABLET BY MOUTH DAILY clopidogrel (Plavix) 75 mg tablet Take 1 tablet (75 mg) by mouth in the morning. 90 tablet 3 cyclobenzaprine (Flexeril) 5 mg tablet cyclobenzaprine 5 mg tablet cyproheptadine (Periactin) 4 mg tablet cyproheptadine 4 mg tablet TAKE 1 TABLET BY MOUTH TWICE DAILY dapagliflozin (Farxiga) 10 mg Farxiga 10 mg tablet estradiol (Estrace) 1 mg tablet TAKE 1 TABLET BY MOUTH DAILY FOR 14 DAYS then TAKE 1 TABLET BY MOUTH twice a week eszopiclone (Lunesta) 3 mg tablet TAKE 1 TABLET BY MOUTH immediately BEFORE bedtime furosemide (Lasix) 40 mg tablet Take 40 mg by mouth in the morning. hydrOXYzine HCL (Atarax) 50 mg tablet hydroxyzine HCl 50 mg tablet TAKE 1 TABLET BY MOUTH EVERY 8 HOURS NEEDED FOR ANXIETY insulin aspart (NovoLOG) 100 unit/mL (3 mL) pen Novolog FlexPen U-100 Insulin aspart 100 unit/mL (3 mL) subcutaneous INJECT 20-30 UNITS SUBCUTANEOUSLY THREE TIMES DAILY insulin glargine (Lantus) 100 unit/mL (3 mL) pen Lantus Solostar U-100 Insulin 100 unit/mL (3 mL) subcutaneous pen INJECT 40 UNITS SUBCUTANEOUSLY TWICE DAILY vtuaah-jynqsfty-hmlqzhs (Zenpep) 40,000-126,000- 168,000 unit capsule,delayed release(DR/EC) Zenpep 40,000 unit-126,000 unit-168,000 unit capsule,delayed release TAKE 1 CAPSULE BY MOUTH THREE TIMES DAILY magnesium oxide (Mag-Ox) 400 mg (241.3 mg magnesium) tablet Take 1 tablet by mouth in the morning. meclizine (Antivert) 25 mg tablet meclizine 25 mg tablet TAKE 1 TABLET BY MOUTH FOUR TIMES DAILY NEEDED metFORMIN (Glucophage) 1,000 mg tablet Take 1,000 mg by mouth in the morning and at bedtime. pregabalin (Lyrica) 200 mg capsule Take 200 mg by mouth in the morning, afternoon, and at bedtime. prochlorperazine (Compazine) 10 mg tablet prochlorperazine maleate 10 mg tablet TAKE 1 TABLET BY MOUTH EVERY 6 HOURS NEEDED tiZANidine (Zanaflex) 4 mg tablet Take 8 mg by mouth at bedtime. [DISCONTINUED] lbvvtmfqlt-uhnjjtztjxhoh-baqk 50-325-40 mg tablet Take 1 tablet by mouth every 6 (six) hours if needed for headaches. AKA Fioricet [DISCONTINUED] ketorolac (Toradol) 30 mg/mL (1 mL) injection ketorolac 30 mg/mL (1 mL) injection solution [DISCONTINUED] lamoTRIgine (LaMICtal) 150 mg tablet lamotrigine 150 mg tablet TAKE 1 TABLET BY MOUTH TWICE DAILY [DISCONTINUED] lisinopriL-hydrochlorothiazide 10-12.5 mg tablet Take 1 tablet by mouth in the morning. [DISCONTINUED] venlafaxine (Effexor) 100 mg tablet Take 600 mg by mouth in the morning. ALPRAZolam (Xanax) 1 mg tablet TAKE 1 TABLET BY MOUTH DAILY NEEDED FOR ANXIETY MUST LAST 30 DAYS bpttaowdqe-xgqypeqscylcw-fcee (Fioricet) 50-300-40 mg capsule TAKE 1 CAPSULE BY MOUTH EVERY 6 HOURS NEEDED dihydroergotamine (DHE) 1 mg/mL injection INJECT 1 (ONE) ml NEEDED. max OF 3ml per 24 hours, 6mg per week fenofibrate (Lofibr (more content not included)... [facility] 08-29-2022 Note Review of Systems Constitutional: Positive for malaise/fatigue. Cardiovascular: Positive for irregular heartbeat and palpitations. Negative for chest pain, dyspnea on exertion, leg swelling, near-syncope and syncope. Respiratory: Negative for shortness of breath. Neurological: Positive for dizziness, headaches and light-headedness. Jacquelyn is here to follow up after her Echo, Catheterization, and Stent placement. She complains of excessive fatigue, irregular heartbeat, and palpitations. She also states that she gets dizzy and light-headed, but that may be due to her migraines. [facility] 08-29-2022 Note [facility]able[facility] Coronary artery dise ase is stable without any concerning symptoms Continue GDMT- add toprol 12.5 mg daily, ASA< plavix, lipitor continue risk factor modifications- heart healthy diet, regular exercise as tolerated and continue all medications. [facility] 08-29-2022 Note Hypertension is well controlled 110/60 stop lisinopril/HCTZ, will start toprol 12.5 mg daily for CAD and HTN [facility] 08-29-2022 Note Continue statin [facility] 08-29-2022 Note F/u with PCP [facility] 08-29-2022 Note Stable, no edema tod ay- continue lasix 40 mg daily [facility] 08-29-2022 Note stable [facility] 08-29-2022 Note SOB is [facility] 08-29-2022 Note Tobacco use - she has quit smoki ng [facility] 07-17-2022 Instructions 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 APRN.CNP - 07/17/2022 12:23 PM EST Instruction after Botox injection: - If you have any pain or swelling use ice, 20 min on and 20 min off. Do not rub or massage the area for 24 hrs. - If you have any neck stiffness, you may use heat and do stretching exercises. - This should improve over the next 5 days. - If it does not, call our office at [phone] for further instructions. documented in this encounter [facility] 07-17-2022 Miscellaneous Notes Botox referral sent to pharmacy. [facility] Brianne Hernandez RN Jacquelyn Zeng is calling 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 APRN.CNP today to request botox referral. No chief complaint on file. Patient has been identified by name and birthdate. Duration of symptoms: N/A Person calling: self Call patient at: on cell [phone] (home) [phone] (cell) Was an appointment scheduled: No Closing statement: Symptom Call: Thank you for calling [facility], your call is very important. A nurse will call in approximately 2-4 hours during business hours. If this is an emergency, please contact 911. Brielle Pressley documented in this encounter [facility] 07-17-2022 Procedure note Headache Center Follow-up Visit Current Preventive: PREEMPT Botox, Qulipta, periactin, lyria, lamictal Current Abortive: fioricet, compazine, toradol, DHE (has not had to treat as many headaches recently). Only needed 4 fioricet total in the last 4 months! Miscellaneous Patient Concerns: Having a heart cath this month - found a lesion on her heart (cardiology OK with DHE) Weaned off of numerous medications and overall feels better! Has had a headache for a full week. She is also do for occipital nerve block next week. Has not had to lay down as much over the last 3 months! Follow-Up Onabotulinum Toxin A (BotoxTM) for Migraine Indication: Chronic Intractable Migraine Treatment #: 5 Referral Expiration: 05/12/2023 Prior to the initiation of the FIRST treatment with Onabotulinum Toxin A, the patient reported the following average headache frequency over the past 3 MONTHS: Number of moderate-severe migraine days/month: 30 (daily) Number of mild migraine days/month: 0 Number of headache free days/month: 0 (0 headache-free hours) Migraine severity: 8/10 After treatment with Onabotulinum Toxin A: Number of moderate-severe migraine days/month: 6 Number of mild migraine days/month: 24 Number of headache free days/month: 0 (0 headache-free hours) Migraine severity: 7/10 Patient reduction in overall migraine days: No Patient reduction in moderate-severe migraine days: Yes Patient reduction of headache hours by 100 hours or more: No Individual has obtained clinical benefit deemed significant by individual or prescriber (Y/N): Yes Patient's quality of life and ability to perform ADLs has improved (Y/N): Yes Side effects: none Wearing off: Yes - 11 weeks after treatment The patient has been assessed for disorders which could contribute to breathing or swallowing difficulty, and there is no contraindication with PREEMPT Botox. There is no documented allergic reaction/hypersensitivity to any botulinum toxin and there is no active infection at proposed injection site. HEADACHE SCORES: Headache Questions 06/08/2021 09/07/2021 ER visits since last office visit: 0 0 Hospital stays since last office visit 0 0 Limited ADLs in the last month: 26 14 Days missed from work or school in the last month: 26 - Days headache pain free in the last month: 0 7 Days per month with ALL of the following symptoms - decreased productivity, light sensitivity and nausea: 26 10 Initial improvement of headache after botox injection at last visit: Not applicable, I did not have a botox injection at my last visit Much improved PRN medication usage in the last month: 26 10 Patient impression of improvement since last visit: Very much worse Much improved HIT-6 06/08/2021 09/07/2021 HIT-6 78 (Severe impact) 65 (Severe impact) MAYNOR - 2/7 SCORES 06/08/2021 09/07/2021 MAYNOR-2 Score 1 3 MAYNOR-7 Score - 11 PHQ-9 11/07/2016 06/08/2021 09/07/2021 Score 17 15 17 There were no vitals taken for this visit. Patient name: Jacquelyn Zeng : 1975 ALLERGIES Allergen Reactions Desonide Other: See Comments patient unaware but hx of TBI so she may not recall Latex Anaphylaxis, Itching Ciprofloxacin Unknown Codeine Hives Erythromycin Hives Latex Itching Penicillin V Hives Sulfa (Sulfonamide * Hives UNIVERSAL PROTOCOL / SAFETY CHECKLIST Procedure: Onabotulinum toxin A for migraine Informed Consent Consent Obtained: Written [place] Protocol A moment to CARE was completed SIGN IN Personnel directly involved with the procedure wore the appropriate PPE Special Equipment: N/A Patient/Surrogate Stated/Verified: Patient name, Date of , Relevant allergies and Intended procedure TIME OUT Intended patient and procedure match the source document(s) Consent documented and matches the intended procedure No relevant labs, photos, and/or imaging studies were applicable for review. No correct side/site applicable for marking and visibility. Medications required for procedure verified. No fire risk assessment and interventions applicable. No implant(s) inserted. SIGN OUT No specimen collected. No instruments, equipment or retained foreign bodies applicable. Post-procedure follow-up management communicated and Plan of Care Visit completed when applicable Written Consent Obtained: Written LOT #: [id number] Expiration Date: Month: 5 Year: 2024 Injection Sites Left (Units) Left (Sites) Right (Units) Right (Sites) TOTAL (Units) Mobile Sales Technician 5 1 5 1 10 Procerus Units: 5 Sites: 1 5 Frontalis 10 2 10 2 20 Temporalis optional follow the pain 20 15 4 3 20 10 4 2 65 Occipitalis optional follow the pain 15 10 3 2 15 10 3 2 50 Cervical PSP 10 2 10 2 20 Trapezius 15 3 15 3 30 Total Units used: 200 Total Units wasted: 0 Prior Therapies Duration of Use Dose Side effect Other Therapies Chiropractic Physical therapy Analgesic Hydromorphone (Dilaudid) Anti-Anxiety Buspirone (Buspar) Anti-Convulsant Gabapentin (Neurontin) Oxcarbazepine (Trileptal) Pregabalin (Lyrica) Topiramate (Topamax, Trokendi XL, Qudexy) Anti-Depressant and Antipsychotic Amitriptyline (Elavil) Citalopram (Celexa) Venlafaxine (Effexor) Anti-Migraine Dihydroergotamine (DHE-45, Migranal) Blood Pressure Lisinopril (Zestril) Supplements Magnesium Over the Counter Medications Acetaminophen (Tylenol) 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 APRN.MICHELLE documented in this encounter [facility] 04-17-2022 Instructions 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 APRN.CNP - 04/17/2022 10:39 AM EST Instruction after Botox injection: - If you have any pain or swelling use ice, 20 min on and 20 min off. Do not rub or massage the area for 24 hrs. - If you have any neck stiffness, you may use heat and do stretching exercises. - This should improve over the next 5 days. - If it does not, call our office at [phone] for further instructions. documented in this encounter [facility] 04-17-2022 Procedure note Follow-Up Onabotulinum Toxin A (BotoxTM) for Migraine Indication: Chronic Intractable Migraine Treatment #: 4 Referral Expiration: 04/28/2022 Prior to the initiation of the FIRST treatment with Onabotulinum Toxin A, the patient reported the following average headache frequency over the past 3 MONTHS: Number of moderate-severe migraine days/month: 30 (daily) Number of mild migraine days/month: 0 Number of headache free days/month: 0 (0 headache-free hours) Migraine severity: 8/10 After treatment with Onabotulinum Toxin A: Number of moderate-severe migraine days/month: 12 Number of mild migraine days/month: 18 Number of headache free days/month: 0 (0 headache-free hours) Patient reduction in overall migraine days: No Patient reduction in moderate-severe migraine days: Yes Patient reduction of headache hours by 100 hours or more: No Individual has obtained clinical benefit deemed significant by individual or prescriber (Y/N): Yes Patient's quality of life and ability to perform ADLs has improved (Y/N): Yes - migraine severity between a 5-8/10. Migraines are lasting hours! able to function remainder of the day Side effects: none Wearing off: Yes - 9 weeks after treatment The patient has been assessed for disorders which could contribute to breathing or swallowing difficulty, and there is no contraindication with PREEMPT Botox. There is no documented allergic reaction/hypersensitivity to any botulinum toxin and there is no active infection at proposed injection site. She is now taking percocet 1 time per week per CPRS. Only helps if taken in conjunction with medial marijuana. Used 1 toradol in the last month. Qulipta has been effective. The closer she get to botox can feel worsening myofascial tension. Used DHE 5 times in the last month - which is an improvement. Disability was finally approved. HEADACHE SCORES: Headache Questions 06/08/2021 09/07/2021 ER visits since last office visit: 0 0 Hospital stays since last office visit 0 0 Limited ADLs in the last month: 26 14 Days missed from work or school in the last month: 26 - Days headache pain free in the last month: 0 7 Days per month with ALL of the following symptoms - decreased productivity, light sensitivity and nausea: 26 10 Initial improvement of headache after botox injection at last visit: Not applicable, I did not have a botox injection at my last visit Much improved PRN medication usage in the last month: 26 10 Patient impression of improvement since last visit: Very much worse Much improved HIT-6 06/08/2021 09/07/2021 HIT-6 78 (Severe impact) 65 (Severe impact) MAYNOR - 2/7 SCORES 06/08/2021 09/07/2021 MAYNOR-2 Score 1 3 MAYONR-7 Score - 11 PHQ-9 11/07/2016 06/08/2021 09/07/2021 Score 17 15 17 BP 131/76 Pulse 103 Ht 175.3 cm (5' 9 ) Wt 91.6 kg (202 lb) BMI 29.83 kg/m Patient name: Jacquelyn Zeng : 1975 ALLERGIES Allergen Reactions Desonide Other: See Comments patient unaware but hx of TBI so she may not recall Latex Anaphylaxis, Itching Ciprofloxacin Unknown Codeine Hives Erythromycin Hives Latex Itching Penicillin V Hives Sulfa (Sulfonamide * Hives UNIVERSAL PROTOCOL / SAFETY CHECKLIST Procedure: Onabotulinum toxin A for migraine Informed Consent Consent Obtained: Written [place] Protocol A moment to CARE was completed SIGN IN Personnel directly involved with the procedure wore the appropriate PPE Special Equipment: N/A Patient/Surrogate Stated/Verified: Patient name, Date of , Relevant allergies and Intended procedure TIME OUT Intended patient and procedure match the source document(s) Consent documented and matches the intended procedure No relevant labs, photos, and/or imaging studies were applicable for review. No correct side/site applicable for marking and visibility. No medications required for procedure. No fire risk assessment and interventions applicable. No implant(s) inserted. SIGN OUT No specimen collected. No instruments, equipment or retained foreign bodies applicable. Post-procedure follow-up management communicated and Plan of Care Visit completed when applicable Procedure to be performed: Onabotulinum toxin A injections Written Consent Obtained: Written Injection Sites Left (Units) Left (Sites) Right (Units) Right (Sites) TOTAL (Units) Mobile Sales Technician 5 1 5 1 10 Procerus Units: 5 Sites: 1 5 Frontalis 10 2 10 2 20 Temporalis optional follow the pain 20 15 4 3 20 10 4 2 65 Occipitalis optional follow the pain 15 10 3 2 15 10 3 2 50 Cervical PSP 10 2 10 2 20 Trapezius 15 3 15 3 30 Total Units used: 200 Total Units wasted: 0 Prior Therapies Duration of Use Dose Side effect Other Therapies Chiropractic Physical therapy Analgesic Hydromorphone (Dilaudid) Anti-Anxiety Buspirone (Buspar) Anti-Convulsant Gabapentin (Neurontin) Oxcarbazepine (Trileptal) Pregabalin (Lyrica) Topiramate (Topamax, Trokendi XL, Qudexy) Anti-Depressant and Antipsychotic Amitriptyline (Elavil) Citalopram (Celexa) Venlafaxine (Effexor) Anti-Migraine Dihydroergotamine (DHE-45, Migranal) Blood Pressure Lisinopril (Zestril) Supplements Magnesium Over the Counter Medications Acetaminophen (Tylenol) 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 APRN.CNP documented in this encounter [facility] 01-09-2022 Instructions 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 APRN.CNP - 01/09/2022 3:27 PM EDT Instruction after Botox injection: - If you have any pain or swelling use ice, 20 min on and 20 min off. Do not rub or massage the area for 24 hrs. - If you have any neck stiffness, you may use heat and do stretching exercises. - This should improve over the next 5 days. - If it does not, call our office at [phone] for further instructions. documented in this encounter [facility] 01-09-2022 Procedure note Follow-Up Onabotulinum Toxin A (BotoxTM) for Migraine Indication: Chronic Intractable Migraine Treatment #: 3 Referral Expiration: 04/28/2022 Prior to the initiation of the FIRST treatment with Onabotulinum Toxin A, the patient reported the following average headache frequency over the past 3 MONTHS: Number of moderate-severe migraine days/month: 30 (daily) Number of mild migraine days/month: 0 Number of headache free days/month: 0 (0 headache-free hours) Migraine severity: 8/10 After treatment with Onabotulinum Toxin A: Number of moderate-severe migraine days/month: 2 Number of mild migraine days/month: 28 Number of headache free days/month: 0 (0 headache-free hours) Migraine severity: 7/10 Patient reduction in overall migraine days: No Patient reduction in moderate-severe migraine days: Yes Patient reduction of headache hours by 100 hours or more: No Individual has obtained clinical benefit deemed significant by individual or prescriber (Y/N): Yes Patient's quality of life and ability to perform ADLs has improved (Y/N): Yes Side effects: none Wearing off: No On Qulipta x 6 months. Has been very helpful for her. She is down significantly in headache days and severity. She is 1 month overdue for Botox s/s to reauthorization issues. Does not overuse Fioricet - took 2 times this past month. Not walking with walker today!! HEADACHE SCORES: Headache Questions 06/08/2021 09/07/2021 ER visits since last office visit: 0 0 Hospital stays since last office visit 0 0 Limited ADLs in the last month: 26 14 Days missed from work or school in the last month: 26 - Days headache pain free in the last month: 0 7 Days per month with ALL of the following symptoms - decreased productivity, light sensitivity and nausea: 26 10 Initial improvement of headache after botox injection at last visit: Not applicable, I did not have a botox injection at my last visit Much improved PRN medication usage in the last month: 26 10 Patient impression of improvement since last visit: Very much worse Much improved HIT-6 06/08/2021 09/07/2021 HIT-6 78 (Severe impact) 65 (Severe impact) MAYNOR - 2/7 SCORES 06/08/2021 09/07/2021 MAYNOR-2 Score 1 3 MAYNOR-7 Score - 11 PHQ-9 11/07/2016 06/08/2021 09/07/2021 Score 17 15 17 BP 137/74 Pulse 92 Resp 22 Ht 175.3 cm (5' 9 ) Wt 97.1 kg (214 lb) BMI 31.60 kg/m Patient name: Jacquelyn Zeng : 1975 ALLERGIES Allergen Reactions Desonide Other: See Comments patient unaware but hx of TBI so she may not recall Latex Anaphylaxis, Itching Ciprofloxacin Unknown Codeine Hives Erythromycin Hives Latex Itching Penicillin V Hives Sulfa (Sulfonamide * Hives UNIVERSAL PROTOCOL / SAFETY CHECKLIST Procedure: Onabotulinum toxin A for migraine Informed Consent Consent Obtained: Written [place] Protocol A moment to CARE was completed SIGN IN Personnel directly involved with the procedure wore the appropriate PPE Special Equipment: N/A Patient/Surrogate Stated/Verified: Patient name, Date of , Relevant allergies and Intended procedure TIME OUT Intended patient and procedure match the source document(s) Consent documented and matches the intended procedure No relevant labs, photos, and/or imaging studies were applicable for review. No correct side/site applicable for marking and visibility. Medications required for procedure verified. No fire risk assessment and interventions applicable. No implant(s) inserted. SIGN OUT No specimen collected. No instruments, equipment or retained foreign bodies applicable. Post-procedure follow-up management communicated and Plan of Care Visit completed when applicable Procedure to be performed: Onabotulinum toxin A injections Written Consent Obtained: Written Injection Sites Left (Units) Left (Sites) Right (Units) Right (Sites) TOTAL (Units) Mobile Sales Technician 5 1 5 1 10 Procerus Units: 5 Sites: 1 5 Frontalis 10 2 10 2 20 Temporalis optional follow the pain 20 15 4 3 20 10 4 2 65 Occipitalis optional follow the pain 15 10 3 2 15 10 3 2 50 Cervical PSP 10 2 10 2 20 Trapezius 15 3 15 3 30 Total Units used: 200 Total Units wasted: 0 Prior Therapies Duration of Use Dose Side effect Other Therapies Chiropractic Physical therapy Analgesic Hydromorphone (Dilaudid) Anti-Anxiety Buspirone (Buspar) Anti-Convulsant Gabapentin (Neurontin) Oxcarbazepine (Trileptal) Pregabalin (Lyrica) Topiramate (Topamax, Trokendi XL, Qudexy) Anti-Depressant and Antipsychotic Amitriptyline (Elavil) Citalopram (Celexa) Venlafaxine (Effexor) Anti-Migraine Dihydroergotamine (DHE-45, Migranal) Blood Pressure Lisinopril (Zestril) Supplements Magnesium Over the Counter Medications Acetaminophen (Tylenol) 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 APRN.MICHELLE documented in this encounter [facility] 12-31-2021 Evaluation note Encounter Date Diagnosis Assessment Notes Dec, Cellulitis of left external ear (ICD-10 - H60.12) Cellulitis: adult home care material was printed Drink plenty fluids, get plenty of rest. Take the amoxicillin with clavulanate as prescribed until gone. Continue to use the mupirocin ointment as prescribed. Continue your home medications as prescribed. Follow-up with your family physician on Saturday without fail. Go to the ER for for worsening symptoms or concerns [email or web address] Other 07-30-2022 Evaluation note* Encounter Date Diagnosis Assessment Notes Treatment Notes Treatment Clinical Notes Nov, Cellulitis of left earlobe (ICD-10 - H60.12) Discussed diagnosis with patient in detail. Used wire spiral binder to remove earing today in office. Instructed patient to take antibiotic as directed, complete entire course even if feeling better, take with food and plenty of water. Use rx of Mupirocin ointment to ear piercing site, as I believe this is source of infection. Use rx of Steroid as directed, reviewed side effects. Instructed close monitoring of area. Wound care as discussed. Avoid picking at scab or scrubbing, clean by letting warm soapy water run over. May leave open to air. Follow up with PCP in the next 2-3 days. Immediate eval by ER if fever, chills, body aches, increase in swelling or redness, red streaking from area, SOB, difficulty breathing, chest pain, or any new or concerning symptoms. Patient verbalizes understanding and is agreeable to treatment plan [email or web address] Other 04-29-2022 Miscellaneous Notes* Telephone Encounter - Brianne Hernandez RN - 09/08/2021 7:53 AM EDT Botox referral sent to pharmacy. Brianne Hernandez RN * Telephone Encounter - Brianne Hernandez RN - 09/08/2021 7:52 AM EDT ----- Message from Heaven Shannon sent at 09/08/2021 7:44 AM EDT ----- Hello everyone, Happy Saturday! This patient needs a new botox referral. Thank you! [facility] Past [facility] Narrative* Problem Noted Date Resolved Date Migraine without aura, witho ut mention of intractable migraine without mention of status migrainosus 04/24/2005 017 documented as of this encounter (statuses as of 09/08/2021) [facility] History of Past illness Narrative* Problem Noted Date Resolved Date Migraine without aura, witho ut mention of intractable migraine without mention of status migrainosus 04/24/2005 017 documented as of this encounter (statuses as of 01/09/2022) [address]13-2005 History of Past illness Narrative* Problem Noted Date Resolved Date Migraine without aura, witho ut mention of intractable migraine without mention of status migrainosus 04/24/2005 017 documented as of this encounter (statuses as of 04/17/2022) [address]13-2005 History of Past illness Narrative* Problem Noted Date Resolved Date Migraine without aura, witho ut mention of intractable migraine without mention of status migrainosus 04/24/2005 017 documented as of this encounter (statuses as of 07/17/2022) [place] [id number] History of Past illness Narrative* Problem Noted Date Resolved Date Migraine without aura, witho ut mention of intractable migraine without mention of status migrainosus 04/24/2005 017 documented as of this encounter (statuses as of 07/17/2022) [facility] History of Past illness Narrative* Problem Noted Date Resolved Date Migraine without aura, witho ut mention of intractable migraine without mention of status migrainosus 04/24/2005 017 documented as of this encounter (statuses as of 10/10/2022) [facility] History of Past illness Narrative* Problem Noted Date Diagnosed Date Resolved Date Migraine without aura, witho ut mention of intractable migraine without mention of status migrainosus 04/24/2005 08/01/2016 documented as of this encounter (statuses as of 01/02/2023) [place] [id number] History of Past illness Narrative* Problem Noted Date Diagnosed Date Resolved Date Migraine without aura, witho ut mention of intractable migraine without mention of status migrainosus 04/24/2005 08/01/2016 documented as of this encounter (statuses as of 03/29/2023) [facility] Diagnosis Intractable chronic migraine without aura and without status migrainosus- Primary Chronic migraine without aura, with intractable migraine, so stated, without mention of status migrainosus [facility]No assessment information availableFisher[facility] Work Phone: Evaluation note* Diagnosis Intractable chronic migraine without aura and without status migrainosus- Primary Chronic migraine without aura, with intractable migraine, so stated, without mention of status migrainosus [facility] Diagnosis Intractable chronic migraine without aura and without status migrainosus- Primary Chronic migraine without aura, with intractable migraine, so stated, without mention of status migrainosus [facility] Diagnosis Intractable chronic migraine without aura and without status migrainosus- Primary Chronic migraine without aura, with intractable migraine, so stated, without mention of status migrainosus Chronic daily headache Headache [facility]* Diagnosis Type 2 diabetes mellitus with hyperglycemia, with long-term current use of insulin (CMS/HCC)- Primary Benign essential HTN (CMS/HCC) ADD (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 deficit disorder without mention of hyperactivity MDD (major depressive disorder), recurrent episode, mild (HCC) (CMS/HCC) Generalized anxiety disorder (CMS/HCC) Generalized anxiety disorder Mild intermittent asthma without complication (CMS/HCC) Complex regional pain syndrome type 1, affecting unspecified site Mixed hyperlipidemia (CMS/HCC) Mixed hyperlipidemia skilled nursing (current) use of insulin (Z79.4) documented in this encounter [facility]* Diagnosis Generalized anxiety disorder (CMS/HCC) Generalized anxiety disorder documented in this encounter [facility] HealthcareHistory general Narrative - Reported* Type Description Date Medical History diabetes mellitus Medical History asthma Medical History Asthmatic Bronchitis Medical History fibroids Medical History migraine headaches 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 Medical History OVARIAN CYSTS Surgical History ABLATION Surgical History CHOLECYSTECTOMY Hospitalization History SEE ABOVE SURGERY [email or web address] Other Hospital Discharge instructions Additional Instructions Avoid trauma to the surgical site.[facility] Work Phone: Summary Purpose Family History No Family History Records Found Relationship Condition Age at Onset Recorded Date/T nehemias father Heart disease Unknown Ventricular fibrillation Unknown Malignant neoplasm of colon Unknown Diabetes mellitus Unknown Not Specified Heart disease Unknown sister Diabetes mellitus Unknown Relationship Condition Age at Onset Recorded Date/T nehemias father Malignant neoplasm of colon Unknown Diabetes mellitus Unknown Ventricular fibrillation Unknown Heart disease Unknown Not Specified Diabetes mellitus Unknown Atrial fibrillation Unknown sister Diabetes mellitus Unknown Relationship Condition Age at Onset Recorded Date/T nehemias father Malignant neoplasm of colon Unknown Diabetes mellitus Unknown Ventricular fibrillation Unknown Heart disease Unknown Not Specified Diabetes mellitus Unknown Atrial fibrillation Unknown Malignant neoplasm of breast Unknown Malignant neoplasm of lung Unknown sister Diabetes mellitus Unknown Advance Directives No Advanced Directives Records Found Advance Directive Response Recorded Date/ Time Advance Directives No June 07, 2017 2:17pm Advance Directive Response Recorded Date/ Time Advance Directives No June 07, 2017 3:17pm Medications Administered Section Active Administered Medications - up to 3 most recent administrations Medication Order MAR Action Action Date Dose Rate Site onabotulinum toxin type A 200 Units injection (BOTOX) 200 Units, OTHER, EVERY 3 MONTHS, First dose on Sat06/07/21 at 1730, Until Discontinued, This record documents the total dose provided to patient. See progress note for specific locations and amounts administered. Given 01/09/2022 3:24 PM EDT 200 Units Given 09/07/2021 3:26 PM EDT 200 Units Given 06/08/2021 2:49 PM EST 200 Units Active Administered Medications - up to 3 most recent administrations Medication Order MAR Action Action Date Dose Rate Site onabotulinum toxin type A 200 Units injection (BOTOX) 200 Units, OTHER, EVERY 3 MONTHS, First dose on Sat06/07/21 at 1730, Until Discontinued, This record documents the total dose provided to patient. See progress note for specific locations and amounts administered. Given 04/17/2022 10:25 AM EST 200 Units Given 01/09/2022 3:24 PM EDT 200 Units Given 09/07/2021 3:26 PM EDT 200 Units Active Administered Medications - up to 3 most recent administrations Medication Order MAR Action Action Date Dose Rate Site onabotulinum toxin type A 200 Units injection (BOTOX) 200 Units, OTHER, EVERY 3 MONTHS, First dose on Sat06/07/21 at 1730, Until Discontinued, This record documents the total dose provided to patient. See progress note for specific locations and amounts administered. Given 07/17/2022 10:19 AM EST 200 Units Given 04/17/2022 10:25 AM EST 200 Units Given 01/09/2022 3:24 PM EDT 200 Units Inactive Administered Medications - up to 3 most recent administrations Medication Order MAR Action Action Date Dose Rate Site onabotulinum toxin type A 200 Units injection (BOTOX) 200 Units, INTRAMUSCULAR, ONCE, 1 dose, On Sat10/10/22 at 0700, This record documents the total dose provided to patient. See progress note for specific locations and amounts administered. Given 10/10/2022 9:17 AM EDT 200 Units Othe r Inactive Administered Medications - up to 3 most recent administrations Medication Order MAR Action Action Date Dose Rate Site onabotulinum toxin type A 200 Units injection (BOTOX) 200 Units, INTRAMUSCULAR, ONCE, 1 dose, On Sat01/02/23 at 0800, This record documents the total dose provided to patient. See progress note for specific locations and amounts administered. Given 01/02/2023 9:04 AM EDT 200 Units Othe r Chief Complaint and Reason for Visit Chief Complaint Back Mass Chief Complaint Back Mass Back Mass Additional Source Comments INFORMATION SOURCE (unrecogn ized section and content) DATE CREATED AUTHOR 01/27/2020 [facility] DATE CREATED AUTHOR AUTHOR'S ORGANIZ ATION 03/25/2021 [facility] DATE CREATED AUTHOR AUTHOR'S ORGANIZ ATION 09/02/2022 [facility] DATE CREATED AUTHOR AUTHOR'S ORGANIZ ATION 10/29/2022 [facility] DATE CREATED AUTHOR AUTHOR'S ORGANIZ ATION 07/30/2023 [facility] DATE CREATED AUTHOR AUTHOR'S ORGANIZ ATION 08/29/2023 [facility] DATE CREATED AUTHOR AUTHOR'S ORGANIZ ATION 10/13/2023 [facility] DATE CREATED AUTHOR AUTHOR'S ORGANIZ ATION 12/04/2023 [facility] EPIC Source Comments (unrecognize d section and content) In the event this informatio n is protected by the Federal Confidentiality of Alcohol and Drug Abuse Patient Records regulations: The Federal rules restrict any use of the information to criminally investigate or prosecute any alcohol or drug abuse patient.[facility] the event this information is protected by the Federal Confidentiality of Alcohol and Drug Abuse Patient Records regulations: The Federal rules restrict any use of the information to criminally investigate or prosecute any alcohol or drug abuse patient.[facility] the event this information is protected by the Federal Confidentiality of Alcohol and Drug Abuse Patient Records regulations: The Federal rules restrict any use of the information to criminally investigate or prosecute any alcohol or drug abuse patient.[facility] the event this information is protected by the Federal Confidentiality of Alcohol and Drug Abuse Patient Records regulations: The Federal rules restrict any use of the information to criminally investigate or prosecute any alcohol or drug abuse patient.[facility] the event this information is protected by the Federal Confidentiality of Alcohol and Drug Abuse Patient Records regulations: The Federal rules restrict any use of the information to criminally investigate or prosecute any alcohol or drug abuse patient.[facility] the event this information is protected by the Federal Confidentiality of Alcohol and Drug Abuse Patient Records regulations: The Federal rules restrict any use of the information to criminally investigate or prosecute any alcohol or drug abuse patient.[facility] the event this information is protected by the Federal Confidentiality of Alcohol and Drug Abuse Patient Records regulations: The Federal rules restrict any use of the information to criminally investigate or prosecute any alcohol or drug abuse patient.[facility] the event this information is protected by the Federal Confidentiality of Alcohol and Drug Abuse Patient Records regulations: The Federal rules restrict any use of the information to criminally investigate or prosecute any alcohol or drug abuse patient.[facility] the event this information is protected by the Federal Confidentiality of Alcohol and Drug Abuse Patient Records regulations: The Federal rules restrict any use of the information to criminally investigate or prosecute any alcohol or drug abuse patient.[facility] Reason for Visit (unrecogniz ed section and content) Reason Comments Botox Injection Specialty Diagnoses / Procedures Referred By Contac t Referred To Contact HEADACHE Diagnoses Chronic migraine without aura, intractable, without status migrainosus Procedures BOTULINUM TOXIN A PER 1 UNIT CHEMODERVATE FACIAL/TRIGEM/CERV MUSC MIGRAINE Renewal due 11/07/2021 Botox 200 units every 12 weeks for 1 year through [facility] buy and bill Preempt protocol [id number] Procedure -[id number] chemodervate facial/trigem/cerv musc migraine Froabielon, Kinga, OFFICE SERVICES ASSISTANT.CHIEF TECHNOLOGY OFFICER [address] [place] [address] Neur Headache Main [address] [id number] Referral ID Status Reason Start Date Expiration Date Visits Re quested Visits Authorized [id number] Closed 10/27/2021 04/28/2022 2 2 Reason Comments Referral Request Reason Comments Migraine Referral ID Status Reason Start Date Expiration Date V isits Requested Visits Authorized [id number] Authorized 10/27/2021 04/28/2022 2 2 Specialty Diagnoses / Procedures Referred By Contac t Referred To Contact HEADACHE Diagnoses Chronic migraine without aura, intractable, without status migrainosus Procedures BOTULINUM TOXIN A PER 1 UNIT CHEMODERVATE FACIAL/TRIGEM/CERV MUSC MIGRAINE Renewal - next visit expected on 10/09/22 Botox 200 units every 12 weeks for 1 year through [facility] [employer] and bill Preempt protocol [id number] Procedure -[id number] chemodervate facial/trigem/cerv musc migraine Liimson, Kinga, OFFICE SERVICES ASSISTANT.CHIEF TECHNOLOGY OFFICER [address] [place] [address] Neur Headache Main [address] [place] [address] Referral ID Status Reason Start Date Expiration Date V isits Requested Visits Authorized [id number] Waiting for Response 07/19/2022 09/17/2023 5 5 Reason Comments Botox Injection Reason Comments Appointment Reason Comments Follow-up Med mgmt Reason Onset Date Comments Med Refill 06/21/2023 Reason Comments Patient Question Care Teams (unrecognized sec tion and content) Team Status: Active Member Role Status Dates Josh Ochoa MD Primary Care Provider Active Team Status: Inactive Member Role Status Dates Josh Ochoa MD Primary Care Provider Active Lee Chowdary MD Attending Provider Active Director Of Enterprise Strategy Relationship Specialty Start Date End Date Josh Ochoa PCP - General Family Practice 08/01/16 Deja Martins CNP Family Practice 09/17/16 Director Of Enterprise Strategy Relationship Specialty Start Date End Date Josh Ochoa PCP - General Family Practice 08/01/16 Deja Martins CNP Family Practice 09/17/16 Team Status: Inactive Member Role Status Dates Josh Ochoa MD Primary Care Provider Active Marie Elias MD Attending Provider Active Director Of Enterprise Strategy Relationship Specialty Start Date End Date Josh Ochoa PCP - General Family Medicine 08/01/16 Deja Martins CNP Family Medicine 09/17/16 Director Of Enterprise Strategy Relationship Specialty Start Date End Date Josh Ochoa PCP - General Family Medicine 08/01/16 Deja Martins CNP Family Medicine 09/17/16 Director Of Enterprise Strategy Relationship Specialty Start Date End Date Josh Ochoa PCP - General Family Medicine 08/01/16 Deja Martins CNP Family Medicine 09/17/16 Director Of Enterprise Strategy Relationship Specialty Start Date End Date Josh Ochoa PCP - General Family Medicine 08/01/16 Deja Martins CNP Family Medicine 09/17/16 Director Of Enterprise Strategy Relationship Specialty Start Date End Date Josh Ochoa PCP - General Family Medicine 08/01/16 Deja Martins CNP Family Medicine 09/17/16 Director Of Enterprise Strategy Relationship Specialty Start Date End Date Josh Ochoa PCP - General Family Medicine 08/01/16 Deja Martins CNP Family Medicine 09/17/16 Director Of Enterprise Strategy Relationship Specialty Start Date End Date Josh Ochoa MD [address] [place] [phone] PCP - General Family Medicine 06/17/23 Director Of Enterprise Strategy Relationship Specialty Start Date End Date Josh Ochoa MD [address] [place] [phone] PCP - General Family Medicine 06/17/23 Director Of Enterprise Strategy Relationship Specialty Start Date End Date Josh Ochoa MD [address] [place] [phone] PCP - General Family Medicine 06/17/23 Director Of Enterprise Strategy Relationship Specialty Start Date End Date Josh Ochoa MD [address] [place] [address] PCP - General Family Medicine 06/17/23 Director Of Enterprise Strategy Relationship Specialty Start Date End Date Gabriela Josh Ozuna PCP - General Family Medicine 08/01/16 Deja Martins CNP Family Medicine 09/17/16 Goals (unrecognized section and content) Goals may be documented in a n alternate section FOR RECORDS PERTAINING TO PATIENTS WHO ARE OR HAVE BEEN ENROLLED IN A CHEMICAL DEPENDENCY/SUBSTANCEABUSE PROGRAM, SOME INFORMATION MAY BE OMITTED. This clinical summary was aggregated from multiple sources. Caution should be exercised in using it in the provision of clinical care. This summary normalizes information from multiple sources, and as a consequence, information in this document may materially change the coding, format and clinical context of patient data. In addition, data may be omitted in some cases. CLINICAL DECISIONS SHOULD BE BASED ON THE PRIMARY CLINICAL RECORDS. [employer] provides no warranty or guarantee of the accuracy or completeness of information in this document.
[2023-12-10 09:33] LABS: Chol HDL Ratio 7.4; Cholesterol 200 mg/dL (<=200); HDL Cholesterol 27 mg/dL (40-60); Triglycerides 980 mg/dL (<=150)
[2023-12-10 10:30] LABS: LDL Cholesterol Direct 73 mg/dL
== END 2023-12-10 07:31 | disposition home or self-care (01) ==
LOC: LAB 07:32
PROVIDERS: PCP Family Medicine; Visit Provider Internal Medicine Interventional Cardiology
DX: E78.2 Mixed hyperlipidemia (principal)
CPT/HCPCS: 36415; 80061; 83721

== ENCOUNTER 2024-02-07 07:24 | Outpatient (OUT) | payer OTHER, MEDICARE, SELFPAY ==
--- OUTSIDE RECORDS SUMMARY | 2024-02-07 07:28 | XMS_ITS | CCD ---
Author Organization [facility] Care Team Providers Care Stroke Program Coordinator Name Role Phone CHONG CARRERO Admitting Unavailable [...] Primary Care Provider Eliezer MARTINEZ, Deja Unavailable [phone] Chanel Workman Unavailable Vianney Collins Unavailable Josh Ochoa Primary Care Provider [phone] Eliezer MARTINEZ Deja Unavailable MD Josh Ochoa Primary Care Provider MD Marie Elias Attending Provider Josh Ochoa Primary Care Provider Eliezer MARTINEZ, Deja Unavailable MD Josh Ochoa Primary Care Provider MD Lee Chowdary Attending Provider DR JOSH OCHOA Attending Unavailable GABRIELA, DR JOSH Ozuna Admitting Unavailable LAZARAEREErick, DR JOSH Ozuna Consulting Unavailable LAZARAEREErick, DR JOSH Ozuna Primary [...] DR JOSH Ozuna Primary Care Unavailable IDRIS, MEG Attending Unavailable IDRIS, MEG Admitting Unavailable WEST, DR AVINASH Milligan Consulting [...] T Attending Unavailable Epi, Lee Admitting Unavailable Chowdary, Lee Attending Unavailable Nadereerick, Josh Primary Care Unavailable Lee Chowdary Attending Unavailable Chowdary, Lee Admitting Unavailable Nadereerick, Josh Primary Care Unavailable Mirzar Josh WARD Primary Care Provider Josh Ochoa Primary Care Provider JOSH OCHOA Primary Care Unavailable FROIMSON, KINGA Referring Unavailable FROIMSON, KINGA Attending Unavailable FROIMSON, KINGA Referring Unavailable FROIMSON, KINGA Attending Unavailable JOSH OCHOA Primary Care Unavailable JOSE FRANCISCO MARR Attending Unavailable JOSE FRANCISCO MARR Attending Unavailable IDRIS, MEG Attending Unavailable JULIANA SHANE Attending Unavailable PHILIP MATHEWS Admitting Unavailable PHILIP MATHEWS Attending Unavailable JOSH OCHOA Primary Care Unavailable Elmo Solano Admitting Unavailable Solano, Elmo L Attending Unavailable JOSH OCHOA A Primary Care Unavailable Elmo Solano L Admitting Unavailable Solano, Elmo L Attending Unavailable JOSH OCHOA Primary Care Unavailable GERTRUDE CONNOLLY Attending Unavailab le JACKSON, DC Cam Attending Unavailable ARCE, OLU Bradley Attending Unavailable JACKSON, DC L Attending Unavailable NADERER, JOSH Attending Unavailable JACKSON, DC L Attending Unavailable GRAZIANI, SARA Stafford Attending Unavailab le GRAZIANI, SARA M Attending [...] Unavailab le JACKSON, DC L Attending Unavailable NADERER, JOSH Attending Unavailable JACKSON, DC L Attending Unavailable JACKSON, DC L Attending Unavailable Allergies Allergy Classification Reported Allergen(s) Allergy Type Date of Onset Reaction(s) Facility (9 sources) Codeine; 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: [CODEINE] Drug Allergy 04-24-20 05 [facility] Repository (4 sources) Erythromycin; 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: [ERYTHROMYCIN] Drug Allergy 04-24-20 05 [facility] Repository (8 sources) Penicillins; 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: [PENICILLINS] Drug allergy (disorder) 04-24-20 05 [facility] Repository (8 sources) Sulfonamides (Antibiotic); 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: [SULFA (SULFONAMIDE ANTIBIOTICS)] Drug allergy (disorder) 04-24-20 05 [facility] Repository (17 sources) Ciprofloxacin; 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: [CIPROFLOXACIN] Drug Allergy 01-18-20 17 [facility] (16 sources) Codeine Drug Allergy 04-24-20 05 Hives, Unknown [facility] (16 sources) Desonide; 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: [DESONIDE] Drug Allergy 11-25-19 13 Other: See Comments [facility] Work Phone: (16 sources) Erythromycin Drug Allergy 04-24-20 05 Hives, Rash [facility] (20 sources) Latex; 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: [latex] Propensity to adverse reactions 04-24-20 05 Itching, Anaphylaxis [facility] (10 sources) Penicillin V; 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: [PENICILLIN V] Drug Allergy 04-24-20 05 Hives [facility] (14 sources) Sulfonamides (Antibiotic) Propensity to adverse reactions 04-24-20 05 Hives, Unknown, Rash [facility] (2 sources) penicillAMINE Drug Allergy shortness of breath [facility] Other (2 sources) Sulfamethoxazole / Trimethoprim [facility] Other (2 sources) Sulfonamides (Antibiotic) Propensity to adverse reactions Unknown [facility] Other (4 sources) Adhesive Tape; 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: [adhesive tape] Allergy to substance 04-24-20 19 Redness of Skin [facility] (12 sources) erythromycin base; 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: [Erythromycin Base] Allergy to substance 11-25-19 13 [facility] (1 source) Desonide Drug Allergy 11-15-19 22 [facility] Repository (2 sources) Cod liver oil; 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: [cod liver oil] Allergy to substance 09-07-19 23 [facility] (2 sources) Zinc Oxide; 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: [zinc oxide] Drug Allergy 09-07-19 23 [facility] (1 source) Codeine Drug Allergy 09-07-19 23 [facility] Repository (1 source) Penicillins Drug allergy (disorder) 09-07-19 23 [facility] Repository (1 source) Sulfonamides (Antibiotic) Drug allergy (disorder) 09-07-19 [facility] Repository (5 sources) Desonide Allergy to substance 11-25-19 13 Unknown [facility] Work Phone: (5 sources) Penicillins Drug Allergy 03-04-20 18 Rash [facility] Healthcare (5 sources) Wound Dressing Adhesive Drug Allergy 04-24-20 21 Unknown [facility] Healthcare (1 source) Adhesive agent; 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: [ADHESIVE] Propensity to adverse reactions to drug (disorder) 04-24-20 [facility] Repository (1 source) sulfa drug; 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: [sulfa drug] Propensity to adverse reactions to drug (disorder) [facility] Repository Medications Current Medications Medication Drug [...] capsule by mo uth every six hours Mtiarksmlp-Fueszeovwsspk-Ssuy Active 1 C AP PO Q6H August [...] tablet (18 sources) Atypical Antipsychotic Start: 06-04-19 24 End: 09-02-19 24 take [...] tablet (5 sources) Start: 04-01-20 End: 03-31-20 24 take 1 tablet by mouth in the morning Atogepant (Qulipta) 60 MG tablet Indications: Intractable migraine without aura and without status migrainosus (CMS/HCC) Take 60 mg by mouth in the morning. 30 tablet 04/01/2023 03/31/2024 Active atomoxetine 40 mg oral capsule (4 sources) Norepinephrine Reuptake Inhibitor Start: 06-20-19 24 take 1 capsule by mouth in the [...] (19 sources) HMG-CoA Reductase Inhibitor Start: 03-06-20 23 End: 06-20-19 24 take 1 tablet by mouth in the morning atorvastatin (Lipitor) 80 MG tablet Indications: Mixed hyperlipidemia (CMS/HCC) Take 1 tablet (80 mg) by mouth in the morning. 90 tablet 3 06/20/2023 Active Start: 04-27-2019 take 2 tablets by mo [facility] once daily at bedtime Atorvastatin (Lipitor) 40 mg Tablet Active 80 MG PO Daily at bedtime April 27, 2019 1:00am Start: 04-27-2019 take 1 tablet by nicky once daily at bedtime Atorvastatin (Lipitor) 40 mg Tablet Active 40 MG PO Daily at bedtime April 27, 2019 12:00am take 4 tablets by mo [facility] once daily atorvastatin (LIPITOR) 20 mg tablet Take 80 mg by mouth once daily. 0 Active take 1 tablet by nicky th once daily atorvastatin (LIPITOR) 20 mg tablet Take 20 mg by mouth once daily. 0 Active Comment on above: Take 20 mg by mouth once daily. Take 80 mg by mouth once daily. 5 ml bupivacaine hydrochloride 2.5 mg/ml injection (5 sources) Amide Local Anesthetic Start: 02-26-20 23 bupivacaine PF (Marcaine) 0.25 % injection 5 [...] hyperglycemia, with long-term current use of insulin ([facility]) Use as directed 2 each 11 04/19/2023 [...] 25 X 5/8 (9 sources) Start: 04-24-20 05 EXEL SYRINGE 3 ML 25 X 5/8 [...] oral tablet (20 sources) Antihistamine Start: 05-14-19 24 End: 08-12-19 24 take 1 tablet by [...] sources) Nonsteroidal Anti-inflammatory Drug, Cyclooxygenase Inhibitor Start: 023 inject 30 mg by intramuscular injection every [...] Take 150 mg by mouth twice daily. Scxxlb-Dsssmxha-Hawo ase (Zenpep) 40,000-126,000- 168,000 unit Capsule,Delayed Release(Dr/Ec) (2 sources) Start: 08-27-2022 take [id number] capsules by mouth three times daily Torfwb-Yhyppbuf-Ule lase (Zenpep) 40,000-126,000- 168,000 unit Capsule,Delayed Release(Dr/Ec) [...] 200 mg oral capsule (20 sources) Start: End: 4 take 1 capsule by mouth [...] Comment on above: Take 1 capsule by [facility] once daily. tiZANidine 4 mg oral tablet [...] 1 TABLET BY MOUTH AT BEDTIME amylase [id number] unt / lipase 40587 unt / protease [id number] unt delayed release oral capsule (20 sources) Start: End: take 1 capsule by mouth three times daily ZENPEP 40,000-126,000- 168,000 unit cpDR Take 1 capsule by mouth three times daily. 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] 06-20-2023 Episodic Other endocrine disorders (1 source) Polycystic ovarian syndrome; 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: [POLYCYSTIC OVARIAN SYNDROME] Onset: 04-02-2022 Chronic Other endocrine disorders (5 sources) Polycystic ovary; 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: [Polycystic ovarian syndrome] Onset: 02-15-2009 12-11-2022 Chronic Other lower respiratory disease (1 source) Other forms of dyspnea; 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: [OTHER FORMS OF DYSPNEA] Onset: 07-30-2022 Episodic Other nervous system disorders (1 source) Complex [...] 12-11-2022 12-11-2022 Chronic Other nervous system disorders (5 sources) Chronic pain syndrome; 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: [Chronic pain syndrome] Onset: 06-27-2018 Resolved: 04-19-2023 04-19-2023 Chronic Other skin disorders (4 sources) Localized [...] 02-28-2021 Resolved: 06-20-2023 12-11-2022 Chronic Substance-related disorders (7 sources) Nicotine dependence, unspecified, uncomplicated; 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: [Nicotine [...] 06-20-2023 12-11-2022 Chronic Other aftercare (3 sources) 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; 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: [[employer]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 USE OF INSULIN] Onset: 04-02-2022 Episodic Other aftercare (1 source) senior care (current) use of oral hypoglycemic drugs; 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: [[facility] USE ORAL HYPOGLYCEMIC DX] Onset: 04-02-2022 Episodic Other aftercare (1 source) Other bed bug exterminator (current) drug therapy; 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: [OTH [facility] CURRENT DRUG THERAPY] Onset: 04-02-2022 Episodic Other [...] classified, unspecified eye] Onset: 08-29-2022 Resolved: 06-20-2023 12-11-2022 Chronic Other female genital disorders (5 sources) [...] Onset: 04-02-2022 Episodic Other lower respiratory disease (5 sources) Dyspnea; 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: [Shortness of breath] Onset: 04-02-2022 Resolved: 06-20-2023 12-11-2022 Episodic Other lower respiratory disease (5 sources) Dyspnea on exertion; 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: [Other forms of dyspnea] Onset: 07-06-2022 Resolved: 04-19-2023 04-19-2023 Episodic Other non-traumatic joint disorders (5 sources) [...] amnesia] Onset: 05-25-2020 Resolved: 06-20-2023 12-11-2022 Episodic Spondylosis; intervertebral disc disorders; other back problems (20 sources) Cervico-occipital neuralgia; 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: [Occipital neuralgia] Onset: 11-07-2016 Resolved: 06-20-2023 11-07-2016 Episodic Unclassified (1 source) COUGH, UNSPECIFIED; 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: [COUGH, UNSPECIFIED] Onset: 11-15-2021 Results Test Name Value Interpretation Reference Range Facility Coding Summaryon 01-21-2024 Coding Summary HTMLBase 64 KaribdlxEBs1tTl+PGhl YWQ+EV8THARmR50yqGLf jY4bQ5MSFHjDYktzXFPC THcZAtJxypUnPY7tvZDt ZXJu IC8+UY0xEFIjZiintXNl t6R4hWQ9A02xlg3jUWiv wTP7VCXrNsVtiyrfq4jg ySu8HQicLsufVkGm GIZyxI52CWD4qO98Xo16 oWLqoAWfx4fygIx7CbAd TRPaUGG2zAtePGrhi4Vn IGUvD32dcRBym4B8 IGNvbGxhcHNlOyBlbXB0 xP5kVTwvnhjbk2sbkpyv Qyd4iw00dRGkm2L3fTQ3 Y9VkjiV0JOWosFAy TbwagLRJpC6qklwho6xd vbmuWqYzCGBaIRk4RJa9 DYRifQrlQsXiYR15KAB9 WYVixfRgG7HjBIOn sMeaCuN8j1V2Np9AM5XD XcukK2MINOWVLXhwsDS+ JB37zj38O4LuPmzfOcr6 AYBoGVY3yIU4aO7n YPHwZGdka6M5kJH2A0Fc bpXiuf9dd6mtTVIiGQht N09hrIXsg5X3BRZzgFJ4 HCSlpOebPfAjiE01 Oyc+SQTtfJdya1DvKfmx z9kwr9zzbAu6ZyfzTNXs zpMmiBpuIRZ7x9BkBj0n OPTdfXP2aLH9fO3v NsHwZrJ9AFfrS638FrBg bCZoAqyaD76aW0UxhGY+ KJOeYzs3ASXttPydFO5a X8ScCNEvpmfwuGJa sVskZR1bGCYebvtpNLOo wE1rKBLvI8u8CpInCpQ8 CHowT9XaEACdabajHf56 uP4pUuVmNiX3LWcc W7SbavP1YAUagEDrWWfd EMK1C83iu5S6VZCjFZDh TQY8wET0qJ5maTldvogu bGVmdDsgdmVydGlj EOffNOvzU265UEOrsWsw PkNvZGluZyBEYXRlOiAg MDkvMTAvMjAyNDwvdGQ+ HIWlJDA4gXjyPMIh fBVcECurXv7niGbbvNff LS0uECMlmnslPTEbpM8s QCApkPTlgSwwBW3vPVEq eibqb594RnBqXJL4 OPWipIScS2YzkF3pXlHz CCJrKQJlX8VlwZWiDIuy Z089ZBhdSsQ0YTNlioEq H8QhFPPurRyqSkD9 i8Z4Vq9Ix6SsypgvS5Mz vEGeErXvVuunDDz6O0Vi PjwvdHI+HV98TDLeQF47 EXp9QWL3dRbyDNib ZSYrW3XbcH1xSnViNLVq ZGRkOyc+PHRhYmxlIHdp ZHRoPScxMDAlJyBzdHls RA0tDp6kFGJnARZt vNpuhDXbEcKsn2miLNBq MVkjCM2guTggS8ZkhZB3 JEQwa1w8Qg15Y08rV1Za dXA+BZBgbBU1rCA1 tW1wPgMsQxC1RXvlF664 KjMzoDFcYeznp6vyz3pz cLl4LdD9GIOaweUlzKfx OFZ7j5EyKi42H29o IHdpZHRoPSIxNSUiIHZh lXdchk5uqP8zYb1+PGNv rQZ1mIK0uE3aOjYkXrJ6 ZHyvY423TvVvuASd Kfuan5oon3eygFa7GzKe TXQgckYkdGayZXJ6l7Ir Sk51I9MgaVgmn1RhUpe2 bt16mWWok1C7aBD9 W0HjALEjtnzpiLBkaNje DZ6jCJGjmfwuSIGkiL7d IRLfW6m0TxQgAmN1LDuv W9SydtI3GNXucFIy IWHtaGPHlM3msdltd1rj ndjwIiCeOXFlNLo9UVo5 YARchThgXwCvSQS2QuC0 XPX3mPOcyY4lnWgc cvpqgJ1xPxa+CWJ1fCLu tVQPNT9bTnzfxSY+PHRk FQR8cZrsVPxnDPSzkM0y HIEtS9f8BqXkMuV6 TGioA4TzheE5PEWadEVl SECooNBXaZ9xkopbh2tw fmtlDbTaHXQqHSo7KPo3 LWFsaWduOiBsZWZ0 PsH3VPY3yPVvtE2prIet nnsziN1pEvk+QmlydGgg BUS7KGz6W0ZgNpn5KFWe jAkvDB6jlQMvFLbp Ds6roJpnkQduUT0dVTTn tgygo807VhDzc1xoSGSs rXVdVEchESH3Z76rh3A7 XGZoECTiSEI9pFP5 wW0zwBcypixuyKMkwDlg fcLxrOozYAjiOCqlX365 DQUwbUadNcZxZJd0K3Ny Eax1NUDqbNwgQI5j xZEjEBpfPk1hdBbvhTyj KY6yOAKalwvzx647EqKr w7yzIMGpwWHdIOzfOGO6 L47th2K7YCNaLTCw VZZ9bJH8lC3pfZfyitim bGVmdDsgdmVydGljYWwt BDkfE152XOInmWyhEoAn uNp9Y5HuQge9PIAf sLbiLQ0veBIeOZvnFy5m zHwxiBnmCQ8pMIZdrklt y593QzHzb8ybUUWvdAFq PDtjYLJ6K54on7Q2 XBPoULKzEQM8xAZ6tU2r bGlnbjogbGVmdDsgdmVy gRcmKDvlVHzzQ563HRGg cDsnPlBhdGllbnQg EUghUHe5U8HfZsafcQM+ KJ23UJShKX26hRBpvOMo k9pvaLy0BcYnTLCgOJV8 qIitUElps0EiUOKq Z75ieFEeb7Y7JXTmqTdc qKUqTrZibCJ8fV2gRDoe rbmpb6lihxrjVeykb2lo tf09tS50I27oTUbm ZHRoPSIzMCUiIHZhbGln hi3vwX4fDz9+PGNvbCB3 zOR1mN7wHYVzDoW7ABqd E763OmQycWWmZhvj y9eyo5betXo6XgR2YLNt qfCxrRftHDN4e8GhJa18 A20oJWrrMZPaABPmOBRv JFSczVxrpg9ziX7y Ii8+KXCsxIE6fUR9lN2y AlPbEkL8IRpfN055DjVu bCYpWhkbC21yE6AczJT+ EYIiUxr1IGDqiJxa NN4ohUDyYXqnBi9nXKW3 IwPcWyRzUGrzN0QqQXMy jhfzjcuqbGD1WGVjYOVv sU30Eo4klYltQPQw uFUCtY4gqqbyh1rwpdyh EbCgXLMuPHv1CWk5REVp lJlwIqQvZZR5GfQ1UAF7 lELekC8zqDkrkuva nL7qH5YrJICivoxfEm19 nK8iSaHjFyC0TIvrUhj+ HM3WYP7ZNGTLUUvbRShc dGQ+URImSDM1dSoe FRosLTShnU9eTGYjE3w1 EsYfUyC6TCwrN9VxIWFn httwAo00cI0qObYeYcQ4 VLfmX3SadpQ4GODp wXQrPLitWJJ8L83cd4E5 LDIeUGQxPIO4uZM8qF6g bGlnbjogbGVmdDsgdmVy gDwiPYooTYddH441 EGNsyPdpAuX4GyHoBqR0 TrF6S8DpCzh4XLJymEfd EA6njDYnPKmuHt3liVjc mVajPB7fDHBgmaop MKYhuU0qRSRqjJBabPsn XY9qQAGsblfdw075TlSv XCL3NEFnfSOjT6PptU5w IdIdRYCqSGAaS6Lw oRBpLBmuS954YJndEuW3 POXhdoCoY5KtWQLqfOgb KyZ3z9N0Co96AJBJFOHw czwvdGQ+PHRkIHN0 qUlsBDrgSBFtfS3fGTFr T3d6HxJuCzQ7NMfmB5Bo UJYbueorEs73gR4mLrMh MgO3PLxaG4GnkoJ1 UXMssXDgJJriWWZ4F65v r2F4MIIpNXXnAVI1kUJ5 cP8rpHnurrkwoURwbGow dmVydGljYWwtYWxp R996MRSeeJylUnCWNGKG RTwvdGQ+GZTkSNP5mVui OAmyBREoeK7bNSUoY4a2 AsMuNfT5LSwjS6Dk WQYfeddaUx17nZ6mCrCn YlO1DSoiU9DyuzW0BMWb fTKqRVtqFFB8Q69yf7Y1 WBQoXBLpGRP4qNQ9 tX1xiPgwvpzegXFymCer tqEwzFnqLBhdOZdfR762 VSKqbLtzKf1IKZ96DR78 J6ChYjymhQCuvUY+ PHRhYmxlIHdpZHRoPScx ALIzLbOpnGttPU9sDm6c ZGVyLWNvbGxhcHNlOiBj o2ihBXUuEGzxAN4x pBdhI4BrpFF6OSVhm6o1 Wj08W31tT0GvpPK+PGNv rZT5dXU5bW4mGiPbBhI3 FNncP466VfBraZLi Uljcs8ccg0fzaXp0LeWg EIEmxuAbeSahRGI3g8Xn Gn05S50mMMunXCBnFHYg NREiEOBiyRisdx2p oV1tIy0+HUWokAQ7wPN7 sM3bStOqBbL1VNlmJ575 UsFucNAbAdugO54zW0Av dXA+FOBvJgh6RAXb qUxiAT0gvDBkIVfmSu2k SVS1VqOaBcAdPWruE8Vu JLSrgflrtrqdbEU6WTPs YWDviU50Uf7pqKjv Ar0qCMKvAJV8WVXuxAIe I5XvoD5nTuBcBSFpKLUi K5NdiVHxYPbfO640FZpp NxW3DQIpzmXrP7Ci VCEctXfzFvD2z2L8Va6N bSovhSXtFN0iLgLgMLi3 K6QfAyr0YJOxfYsdYI2f oQCaJCuoFy9rpVau bGrnCX6hDAXgdrxwl618 PwEfg6loEFGldPIjILnk MCA7R60gp2N3AMOiWRMf MHE2fXN6dS9ktVej bjogbGVmdDsgdmVydGlj WCzpVOkiV023LYCuiBcf VqIREcl0Q7RwHto2BELk hMioEB7sbEJgSWxg Wm2ymYdjrSfyKE5iVUKo wrmwd255HaNfs0vlLTMz sSDfNKksYUD6W25mu5Q3 IDLuLUVwNVS6bNX4 hZ7meUmuymkqwNKinSlm gqVkzPvkAGfcZQnvN845 OCRwmLroOl2YBvg7A2Hl Nfm6HEGzcObgZS1v jSGpHDebGj5dePdigNvd TS2xLHBahdehv889FpYx g7sgNWEboQVgMFqsYFK0 H48pv0K8QLSvGPAp SEH1vKC9mW7ueSteasju bGVmdDsgdmVydGljYWwt KDqaB219YEAfvMkeUnVq eWVyOjwvdGQ+PC90 fg48U3MpCtroGwo0XDYv INP8vLP4cU3zSGXhHYwv n9B8iSG7B9AsntZjtg5r w5cwJUBuVKheZ71k bGF (more content not included)... Normal [facility] ED Clinical Summaryon 2023 ED Clinical Summary [facility] ? Urgent Care [address] [place], [place] [id number] Clinical Summary PERSON INFORMATION Name: JACQUELYN ZENG Age: 48 Years Sex: FEMALE : 1975 MRN: Acct#: Visit Reason: Medical screening exam; [facility] F/U - BACK/HEAD INJURY Arrival: 01/15/2024 13:58:40 Discharge: 01/15/2024 14:29:00 LOS: 000 00:31 Check In: 01/15/2024 13:58:40 Checkout: 01/15/2024 14:29:00 Address: [address] [place] [id number] PCP: JOSH OCHOA PROVIDER INFORMATION Provider Role Assigned Unassigned Debbie Gamez MA ED Nurse 01/15/2024 14:01:06 Elmo Solano-You ED PA 01/15/2024 14:01:09 VITALS INFORMATION Vital Sign Triage Latest Temperature Tympanic Temperature Temporal Artery Pulse Rate O2 Sat 98 % 98 % Respiratory Rate Blood Pressure /75 mmHg /75 mmHg MEDICAL INFORMATION Medications Given: Allergy Information: Desonide; penicillins; Latex; sulfa drug; erythromycin; codeine; ciprofloxacin PHYSICIAN DOCUMENTATION DISCHARGE INFORMATION: Discharge Disposition: Home Discharge Location: Home PATIENT EDUCATION INFORMATION Instructions: Follow-Up: With: Address: When: Return to this practice Comments: 6 months DIAGNOSIS: Adhesive capsulitis; C6 radiculopathy; Cervicogenic headache; Left knee sprain; Lumbar strain; Occipital neuralgia; Optic nerve disorder; Post concussion syndrome; Strain of left hip; Strain of right hip; Thoracic sprain Patient Understands: Yes - Patient/family/careg iver verbalizes understanding of instructions given Comment: Normal [facility] ED Patient Summaryon 024 ED Patient Summary [facility] ? Urgent Care [address] [place] [address] PATIENT DISCHARGE INSTRUCTIONS Patient Information Name: JACQUELYN ZENG Age: 48 Years Date of : 1975 Reason For Visit: Medical screening exam; [facility] F/U - BACK/HEAD INJURY Arrival Time: 01/15/2024 13:58:40 Primary Care Physician: JOSH OCHOA Attending Physician: PHILIP MATHEWS Comment: Patient Education With: Address: When: Return to this practice Comments: 6 months Medication Information: The exam and treatment you received today in the [facility] Emergency Department were for an urgent problem and are not intended as complete care. It is important for you to follow up with a doctor, nurse practitioner, or physician?s education assistant for ongoing care. If your symptoms [...] so we can reach you if necessary. [facility] Emergency Department has provided you with a complete list of medications post discharge. 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 cholecalciferol (Vitamin D3 2000 intl units [...] tab(s) Oral (given by mouth) 3 times per day as needed for dizziness. metFORMIN (metFORMIN 1000 mg oral tablet) 1 tab(s) Oral (given by mouth) 2 times per day. metoclopramide (Reglan) 1 tab QID. metoprolol (Metoprolol Succinate ER 25 mg oral tablet, extended release) 0.5 tab(s) Oral (given by mouth) every day. TAKE 1/2 (ONE-HALF) OF A TABLET BY MOUTH IN THE MORNING DO not crush or chew. Misc Prescription (DME: Upright walker) Diagnosis F07.81 Length of need: 6+ months Dispense 1 No refills. (more content not included)... Normal [facility] Urgent Care Note- Provideron 01-15-2024 Urgent Care Note- Provider Patient: JACQUELYN ZEGN Age: 48 years Sex: FEMALE : 1975 Associated Diagnoses: Occipital neuralgia; C6 radiculopathy; Cervicogenic headache; Post concussion syndrome; Thoracic sprain; Left knee sprain; Adhesive capsulitis; Optic nerve disorder; Lumbar strain; Strain of right hip; Strain of left hip Author: Elmo Solano PA-C History of Present Illness OCCUPATIONAL HEALTH FOLLOW-UP Date of injury: 01/24/16 Claim #: [id number] Employer: [employer] Mechanism of Injury: She tripped and fell [...] sprain, Left Shoulder Sprain This is a 48 year old here today in follow-up for her work related injury. Jacquelyn transferred care to us from the [facility] in September 2018. In 2015 she [...] help of a stand up walker, which she states is currently broken and being fixed. Things that have provided a little bit of relief in the past include vestibular therapy and vision therapy as well as massotherapy/chiropr actic care/acupuncture, and a tens unit that she typically uses 8 hours/day. On occasion, her left knee will buckle, causing her to stumble. MRI of her left shoulder was finally allowed and performed at [facility]. She was allowed an injection into her right shoulder which she found helpful for a short period of time, but then PT was denied. She states no further treatment of her left shoulder or knee has been allowed, so she does not have any more scheduled follow-up with ortho. She does seem to make progress with weekly chiropractic visits, massotherapy, and acupuncture, and then historically has demonstrated a huge setback when these are denied. [...] find an occasional Oxycodone all that helpful. [facility] pain management recommended their intensive pain management program but it was denied by [facility]. She denies any saddle anesthesia. No [...] to some degree. 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 She sees pain management Dr. Stack at [facility] who performs greater an lesser occipital blocks and meza her nerves (RFTC). She just had these done 2 months ago. It is usually followed up by [...] and remains quite significant. There are no fevers, chills or malaise. There are headaches, neck pain, bilateral shoulder pain, left knee pain, right knee pain, and lower back pain. She reports zings of pain down b (more content not included)... Normal [facility] [address] Urgent Care Record [facility] ? 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 It is important for you to follow up with a doctor, nurse practitioner, or physician?s education assistant for ongoing care. If your symptoms [...] so we can reach you if necessary. [facility] has provided you with a complete list of medications post discharge. 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 cholecalciferol (Vitamin D3 2000 intl units [...] (in the morning). ketorolac (Toradol IM) 30 Milligr (more content not included)... [facility] 36on 01-06-2024 36 Patient's insurance prefers the generic for Vascepa. Per [facility] pharmacist, the generic is on a nation wide back order. Is there anything else you'd like to try instead? [facility] Note- Provideron 01-06-2024 Urgent Care Note- Provider Patient: JACQUELNY ZENG Age: 48 years Sex: FEMALE : 1975 Associated Diagnoses: None Author: PHILIP MATHEWS OCCUPATIONAL HEALTH FOLLOW-UP Date of injury: 01/24/16 Claim #: [id number] Employer: [employer] Mechanism of Injury: She tripped and fell [...] (M54.12), Left knee sprain, Left Shoulder Sprain Patient contacted occupational health clinic indicated that she is out of her massage therapy visits, states that she tried to get in touch with us 6 weeks ago secondary to these running out has not had these visits in the last 6 weeks. She indicates that she would like another C9 submitted for more massage therapy visits. I indicated I would submit the C9 today, patient is approved for maintenance massage therapy secondary to previous injuries. [Electronically Signed on: 01/06/2024 15:01 EDT] PHILIP MATHEWS [Verified on: 01/06/2024 15:01 EDT] PHILIP MATHEWS [facility] 36on 12-17-2023 36 Regarding lipid panel performed on 12/10/2023: MD Chelo Thomas MA Her triglycerides are severely elevated. Her PCP should make sure her diabetes is under control. Also I want her to start Vascepa 2 g PO twice daily and get a repeat lipid panel in 6 weeks before her upcoming appointment. Spoke with patient and she said her DM isn't as controlled now that her insurance won't cover her insulin or insulin pump. She agrees to start Vascepa and have repeat lipid prior to apt on 02/07/2024. Orders sent. [facility] Telephoneon 12-17-2023 Telephone [id number] Jacquelyn Zeng 1975 F Date Provider Department Center 12/17/2023 George-CHELO THOMPSON MARIA LUZ Tam [facility] Family History Problem Relation Age of Onset Coronary artery disease Mother Heart attack Mother Cancer Mother Heart attack Father 54 Family Status - Relation Status Age at Mother Father Normal [facility] Caden 10-08-2023 TIM Telephone (NIQ) ZENGJACQUELYN Stafford ([id number]) 1975 F Date Time Provider Department 10/08/23 KINGA MENDES During your visit today, we recorded the following information about you: Tiffany Boyer 10/08/2023 2:41 PM Signed Call received for 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 APRN.CNP regarding Jacquelyn Zeng 1975. Caller: Self Patient Identified by Name and : Yes Was permission obtained from patient ? Yes Reason for Call: Botox Referral New Referral Needed ? Yes Have you contacted our registration department with you most recent insurance information ? Yes- Are you ordering through a specialty pharmacy -No Botox is through [facility] and her appointment had to be rescheduled in August. Last Office Visit: 05/17/23 with Fred Next scheduled appointment: Not scheduled. Best number to reach caller: [phone] Best time to reach caller: between 11-2:30 pm Is it OK to leave a detailed voice message? Yes Lien Blackburn 10/09/2023 2:40 PM Signed Sent message to [facility] team to follow up on status [...] - Hives Date Reviewed: 05/17/2023 Reviewed by: Froimson, Kinga, TAFE LECTURER.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 - Fully Assessed Reason for Visit: Patient Question [1477] Prescriptions as of 10/09/2023 - insulin pump [...] soln INJECT 1mL TWICE DAILY NEEDED - opwuxt-cituwcnz-rpmp ase (ZENPEP) 40,000-126,000- 168,000 unit delayed release [...] lotion ammonium lactate 12 % lotion - ONETOUCH ULTRA BLUE TEST STRIP test strip use [...] 04/24/2005 Bilate (more content not included)... [facility] Employee Health Noteon 08-27 Employee Health Note Pt notified of approval for massotherapy X 1/ week X 12 weeks, C9 approval faxed [employer] (fax # [phone]) per pt request [Electronically Signed on: 08/28/2023 09:36 EDT] Ruth Cortez RN [Verified on: 08/28/2023 09:36 EDT] Domijessie [facility] Coding Summaryon 07-29-2023 Coding Summary HTMLBase 64 OstqubebBXh5cPg+PGhl YWQ+WZ8VKLTgA94iqPUj iV5mV1LOWDyWEzegYSKK CCfQCzIxlhKfIQ4ogPAv ZXJu IC8+OG5kNXWeZcsvjCHy c7E9hDE5M23wac7gHRhi jWV5IYOxYrYflenmt3cw tWn3JLkcQeftBgLw IQFihU24PBC7vV01Wg76 vNAmrJVkx9izcHu7BfZv HSSvJNX0eJthUFrpq4Hg BTFpM74spBIxx3D4 IGNvbGxhcHNlOyBlbXB0 nI9eNRwqrbqjz0kuobzf Pji1mn37cXKxd4N0uCF1 I6GwceG3SDDjgUGe QsuorVOMnL8ckvvzj3iq kayfGjQtGBIiVFd6MVh5 JGLdeBnyBoXvBR11OPM1 YWEqhhJnK7SvSASh pTibGbY2s2X1Fp5TP0SI SowvV3MPUHDLGQoxzPF+ AD92sx49S2RmMrjgXtj4 QWDfYVL9tCC4cR4q CVTzLQgju3T1aMD1E5Rt zkOzrl8kt2ruXWDxZBkg H00cvLIph2D7ESBgeLV0 ITZtaLveSeIzwH21 Oyc+NZActMdex9TpRurz p0tbi9mteAg9FjeaMWUa fzPqlPusYYA3x2RnVd2y HNVcsUW1nQI8lF6b DyHvMhJ6KSejJ409KrEx zZNbZmngT11dS0JmhES+ RZIbKsq0PJZcnKvoQK2t C3OgQFZxlewkvKWs mGozTB0eBUQieizjNARc pT0xCAWoK1m0TfUrNtD1 OIrfS6PcTHAwefhbYp28 mA2cPhCdIiO5KXiv O8GntbV9BFEbjTXwPTvq XAE6O29vc3N2SRSwZNTb EPP2qJL1dS4pfQgcokkp bGVmdDsgdmVydGlj TIhiQSdcT239JBYqmXqx PkNvZGluZyBEYXRlOiAg MDMvMTgvMjAyNDwvdGQ+ CPUwAWI7cIntGUUo kYTzBXavJb0gqClbeWtv NG1tRPWfhmujFMVshL5d QSZhbHWhvTneDJ4pBMVz zmjip088WdOwZYL7 WWVzrDReP7WomN9fGiGq NLLxPMVjU8EwjEPjCJva F045HUnzGqD5HQGnmkUj G4RcVIHmdNavEdV9 b0Z6Wg4Tq0VfzapwQ2Xp cXYdBsXwLelqFWo6F2Ts PjwvdHI+DN23MMKbPJ15 EMo2DHM7yKzgPDny XVEeM0OjzC8yGnMtNDTx ZGRkOyc+PHRhYmxlIHdp ZHRoPScxMDAlJyBzdHls ZS3aOs9uENTuQOFb pVqdyKGeJeOde6xnYQJm YPgiSC4abCptM2JvrZI6 QUTsr8o5Wp17B70qN8Va dXA+SADvfJR4dKT1 cH7wRdSuPnI4ELviJ324 VsUdkCLbJnjzj0ydz7ti dCf3EpF9SYIharBacEmy NKA3e6AxBg46G36d IHdpZHRoPSIxNSUiIHZh yMctnv1kfH1qSc3+PGNv qMB4rSU1uR3nVxNgEmO6 SCriL534SwPigPRb Klinx2mlz3inuWq3EcRj GOXxndLwkJbbUCB0x3Zn Ms64E0MflUrvs1QfOup8 mi33jSBls9S1hYX3 D7OiKQDnpybtmRBuvAuy NE8lNGYfrjscHNYccP7v XZIiN6v5IsDtLlD2JQjk J6BvpnX3KSJshSRp LWFcaZAQwX2jpyzsu9dk iobhWfZaRXUhZCk1UYu8 GRCstGjfWeMjTVP8PxB5 VZB6tPUqlF9slVlb njbuzP2kTol+ABA6mMQz kOWSFE9xJbqcsMN+PHRk IER6gOjzFBpbQOAihT9l UCDyN1n5MlYrPuP9 TVwzT2IxerD6YUKykCMa PBZtlYBDwW0kovphl7vk ilqnXrUcMLDrBLs4LTi4 LWFsaWduOiBsZWZ0 FtO4DTL3nEIylJ8zjUji gkillB7qBiy+QmlydGgg RGA9FZb1T5UwCsw1NCRt yNyvRI0sfXKhZTwj Pd3wzUsvrIpoZZ2tJDRh pnzed297VzBdl5fcUYIj fZPiFJkxJZB4U62lk1Y4 JPVcBCKnSAV6qXJ7 fQ2aaLnbiqjetDNvqNsi rqIrzWqjNEbtBTofC281 FCFecMcsMhZjULe8Y9Tx Njv9JAPlpMpbQF1a dULuBDwgOj8nwHdcvPaz RN9iGOIfasryx153GrDe k4shOZCxwHJlBQcwREU5 W67td6U3WYQxUKAw VNM6kXM0wR8lvUrxcedk bGVmdDsgdmVydGljYWwt JXwkE632UHYrgUqmDuUl vHt5U4WlMfv7TIMw pCtqYG4stDZgDPlnRd0i kNkjpKquYE7eEVYjsrtw y506XeUga9jnGQPheKLk LMjeNLH4D58qx4X0 EYNuOYRuHPL0cPT2oC1t bGlnbjogbGVmdDsgdmVy bEjaHUsjXVqkJ881ZYTq cDsnPlBhdGllbnQg CLyyEVg0W6GuNhnitWP+ RV24XANhLH17lRTamTBn d8ndwDx2NoJvVTTrAEZ7 kSayNYvfh8BsNJFl B74bpNYbn9R1POSmkUom yASyAtXrxMX3jB8eEUvt uqmox9ullijlZpjlu3wh sf69rP29A38qFOso ZHRoPSIzMCUiIHZhbGln tj7voN2eVm3+PGNvbCB3 xWG4qA2rQZGdSeU2KOtc Y045KmCcvSLqIuoj p6dgj5rgmUh3UsN3YYLp ymFihUeaDDA9o7WpSg30 K32pGQifJDObNZHeUOIn YKCptCovmt1tyP3i Ii8+MKYqwMS0oGM1nQ7o WvNhMuL6LNviO462JpTd uTQeUejyS98bV2PanAY+ WTGjBbm9RJWhrUlt KO7qtZHfUVtvFh7jBHU1 FyVmMrSiDGonA3SpKAVb qqygutvenLP5XTBqHPHf sP80Qf7lbQgeNHGv gZIRnB4zysyxc1rxfdnu YkYfMRJjJSb8KOp4HRPy zNeyNdTlRZO3QzN4JOM3 nZQgeU5qaGrkabka pF5rP8XuXVRtaowjDx76 bO9iPfKyWtT8ARifMpv+ FS8GKZ0BPAYXNKvdYNrt dGQ+CJOpGAU4vCxa ZPyfQFKwkQ4rMLMpN0d8 QkIkGwV4HSxgD4KuLDAs rlnhCy59yZ6iTuJbYcW3 BCwnH7TmnnF1SRJb fXUgYRlgJBT3Z56zr1I6 VDWbVBFaFLM9yGK3jX7w bGlnbjogbGVmdDsgdmVy uHvzJZfmFXykS242 HOGugPxjTiX7LfEeSmC6 KmA2W7JsTkp4BWJveFtd DR4coTUbQIukVw7qcGaw wOilAY2fIKNcfdod CDRazZ6dILDqcQAokWrr FW9xGBNzoovsp151JmZr LZZ1KIUdqXJvP7UxdC8r WxLsGZZiXMHeE8Gu eXMsZNasW166ANxgWxP8 RJNjmpPuO3QfWVXtvDwv KaP3l0B8Ud71BREWFDHm czwvdGQ+PHRkIHN0 wVzaJZisLIYgzL6uKBMf F7f8HaOxUmH4ECoxX8Ve JDVxkrqzRm80fF8qCrWm FzZ3MYqbG5NmurG5 OMLrzAMlSYxwHRY9P77o t4P8JZFuJGPxBGV1gJP3 xJ5udYaypjlsnCYtlGre dmVydGljYWwtYWxp H713KDRmgCszTvUQQURZ RTwvdGQ+GBUfFTE4bJcm FAbpWROfyP8nKJIeW1w9 TqMoUwG0ZGolL7Dm EVXnbwigRz45jG5lYmKi NaR4YZmnT0IypiV1JVId lADbUGzqQJZ2M46gx6C8 SJAqUZXyXLZ2yIK6 dM7vbIfmpdpfyVAucUja waWdnFmcVGiuCHbcU658 YBMizErxHv3HQU80PR67 U2OwFtwakHLjtFS+ PHRhYmxlIHdpZHRoPScx DCCaWpUscYvkOD3pXm9f ZGVyLWNvbGxhcHNlOiBj t6jzWCIqZDkbGW3c nEcwZ3HfbHM9GVVil9a9 Id64K99jH1SfaBK+PGNv iAY5cLJ2dK5jMiEwLgK3 WSrrG645SmYhmNUj Syalk7fpa7ftxQq0ZaLn UZRwebZheSxqHLI5d3Om Sq60U02tGPzpTQIcMNSx WREdWYSweUzapw2i hK7hVz3+TXWovDE4eFP9 jK0nCeKwQjP5JEviG709 RfNmdOMlEifsJ06dI6Wj dXA+DCXcVqc8AYNx wVnjCU8unHXtOVccIb4r KPI2WjWzNrGkPXrlV3Ej YLWqlmzwjslyyPK6LXEi PMFljR55Oj1kuHew Dv6rCGPyYSY4JZEsbEBh T8NqhV5xNjJoHYRkFWQx G0TgpDXrHQpyO196BEom RfN2MZYuzsDjK1Uq MHSeuPgaZmG1b1K5Na2S sKxfnRBqLL2yWqAgTEp6 H9PsTds6VZGjrOqsRA8m lNFvCXfeYy6dwSds lIjrVN9zOUIrqetmj262 CyJta0uuRBYfbEWuCNpq XDY5Y36sg9F0HGXoOQOx BQA6rYY4oG3euGxs bjogbGVmdDsgdmVydGlj AChxFHrrW116MRWmtTxr ZzSSHie5A8LqCua5ZDLv fEmeGQ1tfXSeAHdi Tz0enOfmvRveGF4sNNKq iyvbp561UrQrj9gwBKJk nNHvSAoaTTV2D87th7I9 WIBjRPKrFQC6lRC9 mD8byBtfdjmhkMNxuSjb zmWeuNaoTPyeHDdfZ236 BWNzyKqnVq7GPux4C0Rw Fbt5YPWbcFhuVJ1v fXPvWAoqMh8fhVycuRjj LE7vTIRkioagz306TbVr z4idWUSsgIZtLQqmUCK1 N21xz3J7RRWoQSSk HAM0bFW2jQ3ayOkdmbns bGVmdDsgdmVydGljYWwt WMjwT339HJQapAzgKpXt eWVyOjwvdGQ+PC90 fv28U7KuYhcqJma4IBLs MQV5nEJ9kF0uXVDcEDpg j3J1dCO3P3NvdwNkad5k f3xuPAYfBUxgW36a bGF (more content not included)... Normal [facility] Office Visiton 07-29-2023 Follow-up visit [id number] Jacquelyn Zeng 1975 F Date Provider Department Center 07/29/2023 Andrea-JULIANA SHANE CARD [facility] Family History Problem Relation Age of Onset Coronary artery disease Mother Heart attack Mother Cancer Mother Heart attack Father 54 Family Status - Relation Status Age at Mother Father Level of Service:[id number] [place] OFFICE/OUTPATIENT ESTABLISHED MOD MDM 30 MIN Normal [facility] ED Clinical Summaryon 2023 ED Clinical Summary [facility] ? Ur[facility] Care [address] [place] [id number] Clinical Summary PERSON INFORMATION Name: JACQUELYN ZENG Age: 47 Years Sex: FEMALE : 1975 MRN: Acct#: Visit Reason: Medical screening exam; [facility] F/U - HEAD, NECK, LEFT ARM INJURY Arrival: 07/24/2023 12:54:54 Discharge: 07/24/2023 13:25:00 LOS: 000 00:31 Check In: 07/24/2023 12:54:54 Checkout: 07/24/2023 13:25:00 Address: [address] [place] [address] PCP: JOSH OCHOA PROVIDER INFORMATION Provider Role Assigned Unassigned Elmo Solano PA-C ED PA 07/24/2023 13:01:06 Dana RNRuth ED Nurse 07/24/2023 13:14:32 VITALS INFORMATION Vital [...] verbalizes understanding of instructions given Comment: Normal [facility] ED Patient Summaryon 024 ED Patient Summary [facility] Care [address] [place] [id number] PATIENT DISCHARGE INSTRUCTIONS Patient Information Name: JACQUELYN ZENG Age: 47 Years Date of : 1975 Reason For Visit: Medical screening exam; [facility] F/U - HEAD, NECK, LEFT ARM INJURY Arrival Time: 07/24/2023 12:54:54 Primary Care Physician: JOSH OCHOA Attending Physician: Elmo Solano PA-C Comment: Patient Education With: Address: When: Return to this practice Comments: Dec 15 at 11 a.m. Medication Information: The exam and treatment you received today in the [facility] Emergency Department were for an urgent problem and are not intended as complete care. It is important for you to follow up with a doctor, nurse practitioner, or physician?s education assistant for ongoing care. If your symptoms [...] so we can reach you if necessary. [facility] has provided you with a complete list of medications post discharge. Please inform your printed circuit boards beveler/provider of your visit and for further instruction [...] THE MORNING DO not crush or chew. [facility] Prescription (DME: Upright walker) Diagnosis F07.81 (more content not included)... [facility] Note- Provideron 07-24-2023 Urgent Care Note- Provider Patient: JACQUELYN ZENG Age: 47 years Sex: FEMALE : 1975 Associated Diagnoses: Occipital neuralgia; C6 radiculopathy; Cervicogenic headache; Post concussive syndrome; Thoracic sprain; Left knee sprain; Adhesive capsulitis of shoulder; Optic nerve disorder; Lumbar strain; Strain of right hip; Strain of left hip Author: Elmo Solano PA-C History of Present Illness OCCUPATIONAL HEALTH FOLLOW-UP Date of injury: 01/24/16 Claim #: [id number] Employer: [employer] Mechanism of Injury: She tripped and fell [...] Jacquelyn transferred care to us from the [facility] in September 2018. In 2015 she [...] shoulder was finally allowed and performed at [facility]. She was allowed an injection into her [...] find an occasional Oxycodone all that helpful. [facility] pain management recommended their intensive pain management program but it was denied by [facility]. She denies any saddle anesthesia. No [...] migraine today. She sees pain management Dr. Stakc at [facility] who performs greater an lesser occipital [...] anxiety and (more content not included)... Normal [facility] Recordon 024 Urgent Care Record [facility] ? Urgent Care [address] [place] [address] PATIENT DISCHARGE INSTRUCTIONS Patient Information Name: JACQUELYN ZENG Age: 47 Years Date of : 1975 Reason For Visit: Medical screening exam; [facility] F/U Arrival Time: 07/24/2023 12:54:54 Primary Care Physician: JOSH OCHOA Attending Physician: Elmo Solano PA-C Comment: Visit Diagnosis: Diagnoses This Visit Adhesive capsulitis of shoulder (M75.00) C6 radiculopathy (M54.12) Cervicogenic headache (G44.86) Left knee sprain (S83.92XA) Lumbar strain (S39.012A) Medical screening exam ([id number]) Occipital neuralgia (M54.81) Optic nerve disorder (H47.099) [...] and treatment you received today in the [facility] were for an urgent problem and are not intended as complete care. It is important for you to follow up with a doctor, nurse practitioner, or physician?s education assistant for ongoing care. If your symptoms [...] so we can reach you if necessary. [facility] has provided you with a complete list of medications post discharge. Please inform your printed circuit boards beveler/provider of your visit and for further instruction [...] magnesium oxide ( (more content not included)... Normal [facility] ALL CBC WITH AUTO DIFFon BASOPHILS ABSOLUTE AUTO 0.1 N [facility] Basophils/100 WBC (Bld) 1.1 % 0.2 - 2.0 % [facility] Eosinophils/100 WBC (Bld) 3.0 % 0.9 - 7.0 % [facility] Erythrocyte distribution width (RBC) [Ratio] 14.4 % 11.0 - 15.0 % [facility] Hematocrit (Bld) [Volume fraction] 44.3 % 36.0 - 48.0 % [facility] Hemoglobin (Bld) [Mass/Vol] 14.0 g/dL 12.0 - 16.0 g/dL [facility] IMMATURE GRANULOCYTES ABS AUTO 0.02 [facility] Immature granulocytes/100 WBC (Bld) 0.3 % 0.0 - 0.5 % [facility] LYMPHOCYTES ABSOLUTE AUTO 3.8 [facility] Lymphocytes/100 WBC (Bld) 47.7 % 20.5 - 60.0 % [facility] MCH (RBC) [Entitic mass] 29.5 pg 26.7 - 34.0 pg [facility] MCHC (RBC) [Mass/Vol] 31.6 g/dL 29.9 - 35.2 g/dL [facility] MCV (RBC) [Entitic vol] 93.5 fL 81.0 - 99.0 fL [facility] MONOCYTES ABSOLUTE AUTO 0.9 High N [facility] Monocytes/100 WBC (Bld) 11.1 % 1.7 - 12.0 % [facility] NEUTROPHILS ABSOLUTE AUTO 2.9 [facility] Neutrophils/100 WBC (Bld) 36.8 % Low 43.0 - 75.0 % [facility] Platelet mean volume (Bld) [Entitic vol] 10.6 fL 9.5 - 13.5 fL [facility] TBH EO # 0.2 [facility] TBH PLT [address] [facility] RBC 4.74 [facility] WBC 8.0 [facility] MLR HEMOGLOBIN A1Con 024 Glucose [Mass/Vol] 160 mg/dL [facility] HbA1c (Bld) [Mass fraction] 7.2 % High 4.5 - 6.2 % [facility] Comment on above: ADA RECOMMENDED LIMI T 4.0 - 6.0 ADA THERAPEUTIC TARGET < 7.0 ACTION SUGGESTED > 7.0 No Panel Informationon 06-22 Interpretation and review of laboratory results Abnormal [facility] MICROALBUMIN, RAND URon 06-22-2023 MICROALBUMIN URINE RANDOM <1.3 NINF - 30.0 mg/dL [facility] CNOVon 05-17-2023 CNOV Office Visit (NEDBEC) JACQUELYN ZENG ([id number]) 1975 F Date Time Provider Department 05/17/23 11:30 AM KINGA MENDES [facility] During your visit today, we recorded the following information about you: Pulse Blood pressure 92/minute 127/60 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 APRN.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 05/17/2023 12:02 PM Signed Follow-Up Onabotulinum Toxin [...] for migraine Informed Consent Consent Obtained: Written Gilman Protocol A moment to CARE was completed [...] applicable Written Consent Obtained: Written LOT #: [id number] Expiration Date: Month: 6 Year: 2025 Injection Sites Left (Units) Left (Sites) Right (Units) Right (Sites) TOTAL (Units) Personal Financial Advisor 5 1 5 1 10 Procerus Units: [...] and Anti (more content not included)... Normal [facility] Follow-Upon 05-15-2023 Follow-Up [id number] Jacquelyn Zeng 1975 F Date Provider Department Center 05/15/2023 JOSE FRANCISCO PHAM [facility] ENDOCR [facility] Family History Problem Relation Age of Onset Coronary artery disease Mother Heart attack Mother Cancer Mother Heart attack Father 54 Family Status - Relation Status Age at Mother Father Level of Service:19356 [place] OFFICE/OUTPATIENT ESTABLISHED MOD MDM 30 MIN Reason for Visit and Comments: Follow-up [[id number]] - DM 2 Normal [facility] Coding Summaryon 04-29-2023 Coding Summary HTMLBase 64 NvwoojbwYZf5nMi+PGhl YWQ+CE2MHSUvF98wkJRp pX2mF2ACZKqHMyvfUTDI AGsVFvVlywQnPI6bnVRp ZXJu IC8+TU0kPEAdIfkmxSIr q1Q5tFJ3G50cnj5cPRjb mKJ3AEHtNvOpclwls2ic dFy5AQkvFyugRpOc JAXtpI45JZD3mW35Cn92 xUWouARmy0rzqUs4MhHl UIAaHVJ0cBorEPknx9Ty XPWjM57mfDVfy4S0 IGNvbGxhcHNlOyBlbXB0 cF1rXErgjyvkh3frpyob Rqs6ix44hNQys4G0nPO0 J6CqedU1YVHjpABn ReqqiQIWyN3usfyuu6rf hwrbFuQvEZVmXRl4JJh5 JAQetFkjJtNzAO86WZT1 YGOhgeEgF8UuOFHw fYsvXjW0y4U2Xw1YG4ST ZpneX9CNZSBMUThbcVM+ HI92vn23Z5WqIoytSvp7 NWQhICJ7yZK8jX7i KTAoRBknw7F1qCN4T3Cs gdRwxz5wc6quCUIyXCbi X42eyFHxl5W8GGWdiZW5 PYZtuCdtMeWhuL58 Oyc+EXJvtYxkn1NsXkth z7yky2tupNi2JbciRCDa kfMchVdvPEA4h6TaLb5r MRMqoPU5tVB6hP3h GdYsSnD7JVgbK798FiXw xYDsMuxzW17sN2TosYA+ RVRfGbw1AAJmdYwbHZ2g X0NdASNcvchzqNTw wLkpEE6gTXVswotoGEZb xT7tBGJgW9g6ZrMaGyM7 LDabN9TzVKJpvmfjKp78 rJ7aTgOkKpX1GZgz U2DuccV7AMTyxLBmYUmd CXX2W19ft6Z4MJJiCICu BUG2lKA7gX7qbOnjwgba bGVmdDsgdmVydGlj IUvfXVpzN189OOZugHmx PkNvZGluZyBEYXRlOiAg MTIvMTgvMjAyMzwvdGQ+ KIDbIPY0nEepNLLn sRDaNYbvYb9sqPxyoOnz VX1mGVEvgobeZFQfdI7c WAPbyLGlpHprSH7tGPDv hhehe526DeEhMUJ2 ESMkaAOiN5XocY5nYiFw NOOiXGHrE7KfeFZsSDyr S767CRrpSrB6HTOcsgQo Z7BaREMlrZhhQzA6 f8N9Fi0Pw8NuqxdhV1Lw kDFmGaBgJvhoIZi3Z7Pb PjwvdHI+KL23EEBcVT71 YYb6BZD3sRluRKtm HQXiM8HajP9uZyEwRRZx ZGRkOyc+PHRhYmxlIHdp ZHRoPScxMDAlJyBzdHls WQ8iTu3qBVIcEPIz sRvpkGSpJgAkk2hsCHLb BAqkOG6zjBliU4VtaYT3 MSZkb7p6Sg21V66bP7Sz dXA+IVCmhYW8jAE8 bE8fJhMqLmE9AKwsT594 AzRyjRXkFgrfa3cgj4js dJs5NzF5DOEcymGwrWnx IQE6m3TiDd01U86q IHdpZHRoPSIxNSUiIHZh xPuhgv2npJ2yFc2+PGNv dHW3bBH9cQ2kBvBmRlJ3 TWbpQ978MnZxhNFp Jbgux8xav2hqzRf8JnWr GUQqngDvrAjiCYP2z4Wc Ez73Y0PoqZqfr7GoVbk3 mq61vUDko3J4uIZ9 C7EvDYBzqpomoALswGml BX1kMLPpdqynTZOdqI3n STIeN1i5JfHwVsV0RUcz P8UwlaH1FBQvpPPd YIUsgNDSfU5odiprr9aq jhroEpCxRQTgAMq5ZGj5 NYTddYjhKoHuLDI0DvQ0 UUJ4cFVkqU8zmYpx hmpsoS4jVap+TYI9yPIb dAPKLK7xDdmtaLQ+PHRk UYZ0dMnhZAvbUEEcwV4j IRFbA6a8EvNsVrH6 GQbeZ1ThfeI5FAGkzGZs JMYpbFZZfQ0rvgcii1pe yrjtUmEjDTWkVKz2QOh8 LWFsaWduOiBsZWZ0 MlZ2UKJ2gODhgL7igWgh nvxwgE6uAsc+QmlydGgg EFB1CLj2Y7YkXmg9VLAx tHwqPU8dtSAjKDqu Ip4xvYseeQzeLZ1pNOJy empyz153YhUzx2xsDJBi pJFsJNjjYXB7H81ym5Y8 RLCqXCKaWBJ0wFO5 qG7lnNrbhkjdfFHjxPpi wiQwrQzxGHiyZYhtO505 NKFdoBqvPvGaMVa2F3Mx Yvs3LOBsiBnjGL0o eHEhPCopGm0xyQgqpLou TS9bPZCdsdpwk859BwQt w3ayTEFlsNBkDXrsTHF0 W32sa6H9GERfQFLq QTV9zIP2jA1iiCovluug bGVmdDsgdmVydGljYWwt IGyjL516VIIryNkoOdBo jGj4U1NsZrh0UNOw oTqrUY8txNSrYXjpRp4n hTxevKlxHO5nWRRlijaz x070AmNku3qbSEGjeATq ORubYOM4Y07dt1B9 DKGqBSNgSTH3gFY0aK9u bGlnbjogbGVmdDsgdmVy bSmrOAmuCBgaW766JCPn cDsnPlBhdGllbnQg SHauTLt4M2UyVaehvPC+ BX84GEUcQL40aMYziSWv s9eseWh1FbOkXSCuGVY1 dSnpMZwim5WhZJFq U89wyIJqe5M1TIWmiJmj hUXtWfApcGN7uY5bNMxp mtenf7pfsoafWiuji6qq gn43wU89B00nIZxj ZHRoPSIzMCUiIHZhbGln qv3mzM8sWp2+PGNvbCB3 vCD2yX8nEGXcUnU9KWre D693EzXbeLCqCqkl y7ste4xxlWe2RoP0KFPl ogXyxAtdBJL3j4LoUz41 Q37uHJhqPKDqXLXqOSRy VYGirKeghs2hjO8x Ii8+TOAuqPJ3qAG3pR3u WcNaUyR3YVxtL992VjAw wRWuEkccH67qS2KosVJ+ VKDiSrp0VUCrpGld AX5mvXNgBJicKg1fICN4 HxTwXgBkCVhjW9FoORXd ijjmxzzrhIQ4LJSxRFBs xJ67Fg4wwUhbWRSk aCXJvA8fdtbet0jmzwjo AvOxCWNeCCf0DZv4NXBb kGpjIkAjDMV3EpX5BMB5 mUIwyL7qjNvbelzm sJ4hK8PkUWEvvibrEm83 jO9bIiLsYmB7PCfuUml+ LK5GZQ1TNPYAWNjuIGag dGQ+VGCmEKR1kRqn WNzmXDJrnP0kCQBpR0x9 CoEkFnX5KSnhA0TjNFCp wwelYr67jX7jTfQrTyU2 VZgfC0KnyxD3ZFMs pLWgQEfmMZE1M22pv6O3 RJNlCZAdADR5vYD0eE8w bGlnbjogbGVmdDsgdmVy fMblWIipNDfbX009 NKUwoYnfZwJ0RvSwBhO3 RmJ3G1DoEyi7MDAmrEdl RY0woILeSPbnXt5iuGgl mZjbLB2jKVBtppkw SPBcfX5yJKEfzRGwcTda IJ3dURLxnzhqx554CbUh EIV5UGIyiUBuW3QzuZ5h QnEqEKApYXPvG4Il lKAxIYyyL454JNuiIhK1 CFNbbfLrI7ZcQORwhEbd IwV3l4J0Ff03JZCYBJTa czwvdGQ+PHRkIHN0 dWixWKwzSWSvnQ4nRUCj Z3p4FyTgDsC6PVsaI9Gv UXCwfvdyJj20xL5bRkJs UmV8KGkvO0PtkqW3 KIRznHUuCWykPNN6X62x n2B9DRYtXFAaRPV4zHC8 hO2ozLevqnxgbRNxkEfp dmVydGljYWwtYWxp W651ZDCdlDgbKuSMKHKX RTwvdGQ+JTPyRYD0tNrv GUduZTOicO1vKACtH2j4 ZaEqUqN8ZPqaX6Iq KNQojoymIl10vS3cVaLq MwB2OCesZ7BgqhK2LSWi oTEwHWrsABP9M03un6D2 LOJnZWZuBSZ4yMA6 xQ8iuXttajaqmDPodHph moHbgDfvDKvwDYvcL369 AUHqgFtaDa9QGZ50RR00 Q9WePoryyZIvpQL+ PHRhYmxlIHdpZHRoPScx SRDdJiOwoZzaAF7uFd7t ZGVyLWNvbGxhcHNlOiBj w9ymOIIdNYgoFG6r bRmjQ6DmjFV4LSTfz0b5 Qj04G05kG1CvtNN+PGNv mXQ2hAS1dW1bWyLzWhN3 PDtxB154YoEcxEFj Fmzqs5paf8zcaYk2AhSi IVEpscQusMcnWKZ8e9Cm Ju91F78zOErvJHIbAUWl TAWnJLFvkSwstu0x cH2cEi9+HJVvvZS9wEV6 kM3jZpWfMdX8MYxdO711 FfRuxMNfEhskJ19fF8Jt dXA+WOLiPcg2LOCq cBfuAS2xkLTzZJmuCp7x MGF9GkAvMoZoBAzsW7Bc FQSbfoekzkmgfSS8YUMh TFAjyR98Ml5aqBhc Nj4eBBQiKNU8SFLhhBCz K8DbmZ0bBeBdRXLxTICi A2PkwDIbVTjoS333GHut ZeO2LMBcygZeT4Kx AFBxkWgsUcV2p4V8Xm9J cDrhlXRqFE1eOcGhFTz0 T9ViYgy1LRSsoXkbNX7c eYRwXDpuSd0drPxf gUxwYU7eMCGukpzyu911 OsMuo8neUKZtpYTgEZhg XIZ3K42oh9T2IBGmFIAp ZVR1dTI3kI3ziJni bjogbGVmdDsgdmVydGlj QGjhQYmsT864DJRnxYfj UsYTDtf6K9UmDjv1JIZd mElwMZ3cxVSuLYrb Ou3jzOniiVssDH9iYVLk cczzp798VxDal0hoQCPd lMSnZDjgNLB9M41ra9H6 DATyPADhBUY4sAZ6 qD7jpZrsxopgsPHsfPum ufKtlOpyXQquXNeaS317 GLWkhDloNc3XPrw8K1Kz Unv4GLUlwDkkNV7w yFXwWCyzBh3yvVnmkKxi MW6mQLGmzxfqo440IyJp y6tiOIMqtLNaBWdxGRU6 E22ff7J7VPNtZRJl FCM2jMT0rU7geMxrhyfa bGVmdDsgdmVydGljYWwt GWrvC740BHCwoCtpPfFl eWVyOjwvdGQ+PC90 gj74V7YuDhsaBxe3YZXb KEU5vRT7fM7iXNBzFNxm b2Q2tAB7N5OwpnLzhl0o s2saRDCiFRobA59r bGF (more content not included)... Normal [facility] ED Clinical Summaryon 2022 ED Clinical Summary [facility] ? Urgent Care [address] [place] [id number] Clinical Summary PERSON INFORMATION Name: JACQUELYN ZENG Age: 47 Years Sex: FEMALE : 1975 MRN: Acct#: Visit Reason: Medical screening exam; [facility] F/U Arrival: 04/18/2023 09:48:24 Discharge: 04/18/2023 10:35:00 LOS: 000 00:47 Check In: 04/18/2023 09:48:24 Checkout: 04/18/2023 10:35:00 Address: [address] [place] [id number] PCP: JSOH OCHOA PROVIDER INFORMATION Provider Role Assigned Unassigned Ruth Cortez RN ED Nurse 04/18/2023 09:54:49 Elmo Solano PA-C ED PA 04/18/2023 09:59:05 VITALS INFORMATION Vital [...] verbalizes understanding of instructions given Comment: Normal [facility] ED Patient Summaryon 023 ED Patient Summary [facility] ? Urgent Care [address] [place], [place] [id number] PATIENT DISCHARGE INSTRUCTIONS Patient Information Name: JACQUELYN ZENG Age: 47 Years Date of : 1975 Reason For Visit: Medical screening exam; [facility] F/U Arrival Time: 04/18/2023 09:48:24 Primary Care Physician: JOSH OCHOA Attending Physician: Elmo Solano PA-C Comment: Patient Education With: Address: When: Return to this practice Comments: SatJuly 23 at 1 p.m. Medication Information: The exam and treatment you received today in the [facility] Emergency Department were for an urgent problem and are not intended as complete care. It is important for you to follow up with a doctor, nurse practitioner, or physician?s education assistant for ongoing care. If your symptoms [...] so we can reach you if necessary. [facility] Emergency Department has provided you with a complete list of medications post discharge. 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 Normal [facility] Urgent Care Note- Provideron 04-18-2023 Urgent [...] FOLLOW-UP Date of injury: 01/24/16 Claim #: [id number] Employer: [employer] Mechanism of Injury: She tripped and fell [...] Jacquelyn transferred care to us from the [facility] in September 2018. In 2015 she [...] shoulder was finally allowed and performed at [facility]. She was allowed an injection into her [...] find an occasional Oxycodone all that helpful. [facility] pain management recommended their intensive pain management program but it was denied by [facility]. She denies any saddle anesthesia. No [...] She sees pain management Dr. Stack at [facility] who performs greater an lesser occipital [...] It de (more content not included)... Normal [facility] Recordon 023 Urgent Care Record [facility] ? 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 Do not drive a car. ? Do not operate machinery such as power tools, [employer] mowers, drills, sewing machines, or stoves ? Avoid alcoholic beverages and drugs for allergies, nerves, or sleep ? Do not make important personal or business decisions or sign any legal documents With: Address: When: Return to this practice Comments: SatJuly 23 at 1 p.m. Medication Information: The exam and treatment you received today in the [facility] were for an urgent problem and are not intended as complete care. It is important for you to follow up with a doctor, nurse practitioner, or physician?s education assistant for ongoing care. If your symptoms [...] so we can reach you if necessary. [facility] has provided you with a complete list of medications post discharge. Please inform your printed circuit boards beveler/provider of your visit and for further instruction [...] extended release) 1 (more content not included)... [facility] 03-25-2023 [facility] Telephone (OTOLBD) ZENGJACQUELYN Stafford ([id number]) 1975 F Date Time Provider Department 03/25/23 KINGA MENDES OTOLBD During your visit today, we recorded the [...] patient one of these appointments. 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 APRN.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 March 31, 2023 3:53 PM Allergies As [...] Date Reviewed: 01/02/2023 Reviewed by: 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 APRN.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 - Fully Assessed Reason for Visit: Appointment [...] soln INJECT 1mL TWICE DAILY NEEDED - kfkgzv-pbhhwthm-scxx ase (ZENPEP) 40,000-126,000- 168,000 unit delayed release [...] lotion ammonium lactate 12 % lotion - ONETOUCH ULTRA BLUE TEST STRIP test strip use [...] 08/01/2016 CHRON (more content not included)... Normal [facility] Telemedicineon 03-07-2023 Telemedicine [id number] Jacquelyn Zeng 1975 F Date Provider Department Center 03/07/2023 Celine-JOSE FRANCISCO MARR [facility] ENDOCR [facility] Family History Problem Relation Age of Onset Coronary artery disease Mother Heart attack Mother Cancer Mother Heart attack Father 54 Family Status - Relation Status Age at Mother Father Level of Service:13202 LA PHYS/QHP TELEPHONE EVALUATION 11-20 MIN Normal [facility] Office Visiton 03-01-2023 Follow-up visit [id number] Jacquelyn Zeng 1975 F Date Provider Department Center 03/01/2023 120-MEG STEIN[facility]G CARD [facility] Family History Problem Relation Age of Onset Coronary artery disease Mother Heart attack Mother Cancer Mother Heart attack Father 54 Family Status - Relation Status Age at Mother Father Level of Service:20140 LA OFFICE/OUTPATIENT ESTABLISHED MOD MDM 30-39 MIN Normal [facility] Orders Onlyon 02-18-2023 Orders Only [id number] Jacquelyn Zeng 1975 F Date Provider Department Center 02/18/2023 Celine-JOSE FRANCISCO MARR [facility] ENDOCR [facility] Family History Problem Relation Age of Onset Coronary artery disease Mother Heart attack Mother Cancer Mother Heart attack Father 54 Family Status - Relation Status Age at Mother Father Normal [facility] Orders Onlyon 01-31-2023 Orders Only [id number] Jacquelyn Zeng 1975 F Date Provider Department Center 01/31/2023 [id number] OLVERA*[facility] ENDOCR [facility] Family History Problem Relation Age of Onset Coronary artery disease Mother Heart attack Mother Cancer Mother Heart attack Father 54 Family Status - Relation Status Age at Mother Father [facility] CNOVon 01-02-2023 CNOV Office Visit (NHDBEC) JACQUELYN ZENG ([id number]) 1975 F Date Time Provider Department 01/02/23 9:00 AM KINGA MENDES [facility] During your visit today, we recorded the following information about you: Pulse Blood pressure 97/minute 127/76 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, TAFE LECTURER.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 01/02/2023 9:25 AM Signed [facility] Follow-up [...] UNIVERSAL PROTOC (more content not included)... Normal [facility] Glucose Glucometer (BldC) [M ass/Vol]Ordered By: Lee Chowdary on 09-06-2022 Glucose [Mass/Vol] 138 mg/dL [facility] Comment on above: Random Glucose Refer ence Range is dependent on time and content of last meal. Glucose of more than 200 mg/dL in a nonstressed, ambulatory subject supports the diagnosis of Diabetes Mellitus. Glucose Poct Glucometerson 0 09-06-2022 Glucose [Mass/Vol] 138 mg/dL [facility] Comment on above: Result Comment: [place] om Glucose Reference Range is dependent on time and content of last meal. Glucose of more than 200 mg/dL in a nonstressed, ambulatory subject supports the diagnosis of Diabetes Mellitus. PERFORMED BY: [place] [address] PATHOLOGIST NUTRITION SERVICES AIDE SIXTO LOZANO M.D. Performed By: #### G LULS #### Point of Care testing , Glucose [Mass/Vol] 155 mg/dL Normal [facility] Comment on above: Result Comment: [place] om Glucose Reference Range is dependent on time and content of last meal. Glucose of more than 200 mg/dL in a nonstressed, ambulatory subject supports the diagnosis of Diabetes Mellitus. PERFORMED BY: [place] [address] PATHOLOGIST NUTRITION SERVICES AIDE SIXTO LOZANO M.D. Performed By: #### G LULS #### Point of Care testing , HCG ( test) Ivy d Ql (U)Ordered By: Avinash Mays on 09-06-2022 HCG ( test) Ql (U) Negative [facility] HCG,Urineon 09-06-2022 Beta HCG ( test) Ql (U) Negative Normal [facility] Comment on above: Result Comment: PERF ORMED BY: [place] [id number] PATHOLOGIST NUTRITION SERVICES AIDE SIXTO LOZANO M.D. Performed By: #### U HCG #### [place] [id number] [facility] 09-06-2022 L Specimen: [id number] Received: 09/06/22 Status: LLUVIA Willoughbyshwetha Num: [id number] Spec Type: Surgical Subm Dr: Lee Chowdary MD Tissues: A Soft Tissue Mass - Simple Excision (except lipoma) (BACK MASS) Procedures: IVANA, Gross/Sita L4 Age/ Patient Sex Location Account Attending Physician Jacquelyn Zeng 47/F [place] [id number] Lee Chowdary MD SPEC NUM: [id number] RECD: 09/06/22 STATUS: LLUVIA WILLOUGHBYShwetha NUM: [id number] DOT: 09/06/22- [facility] DR: Lee Chowdary MD ENTERED: 09/06/[address]: SPEC TYPE: Surgical DEPT: S ORDERED: IVANA Gross/Micro L4 ORDERED: IVANA, Gross/Micro L4 Pathological Diagnosis Soft tissue, back, excision: - Mature adipose tissue, most consistent with LIPOMA. Clinical Information Back mass Gross Description Received in formalin labeled with the patient's name, number and back mass is a 4.2 x 4.0 x 2.5 cm aggregate of yellow-soto, rubbery tissue with a yellow, lobular cut surface. No discrete mass or biopsy site is identified.. Export Documents Clerk sections are submitted in one cassette labeled A1. Microscopic Description One glass slide with H E stained material has been examined. The microscopic findings support the above pathologic diagnosis. CPT Codes 95718 Specimen: [id number] Received: 09/06/22 Status: LLUVIA Mckeon Num: [id number] Spec Type: Surgical Subm Dr: Lee Chowdary MD Tissues: A Soft Tissue Mass - Simple Excision (except lipoma) (BACK MASS) Procedures: IVANA, Gross/Micro L4 Patient: ZengJacquelyn [id number] (Continued) Signed (signature on file) Venita Justice MD 09/07/22 1157 [facility] MG MAMM DIAGNOSTIC 3D YOUNG CA Don 08-28-2022 MG MAMM DIAGNOSTIC 3D YOUNG CAD Patient: JACQUELYN ZENG Exam Date: 08/28/2022 : 1975 Gender:F Ordering : MARGARETTE CHEEK . Admission #: [id number] Family : Order #: [id number] CLICK HERE TO VIEW EXAM RADIOLOGY REPORT [...] colon cancer at age 53. LOCATION: [facility] BREAST COMPOSITION: Scattered areas fibroglandular density. [...] M.D. on 08/28/2022 at 14:55 Normal [facility] US BREAST RIGHT LIMITEDon US BREAST RIGHT LIMITED Patient: JACQUELYN ZENG. Exam Date: 08/28/2022 : 1975 Gender:F Ordering : MARGARETTE CHEEK . Admission #: [id number] Family : Order #: [id number] CLICK HERE TO VIEW EXAM RADIOLOGY REPORT [...] colon cancer at age 53. LOCATION: [facility] BREAST COMPOSITION: Scattered areas fibroglandular density. [...] Rodriguez M.D. on 08/28/2022 at 14:55 Normal [facility] Basic Metabolic Panelon 04- Anion gap [Moles/Vol] 13.4 mmol/L Normal 6.0-15.0 [facility] Comment on above: Performed By: #### B MP #### [address] Calcium [Mass/Vol] 9.8 mg/dL Normal 8.6-10.3 [facility] Comment on above: Result Comment: PERF ORMED BY: [place] [address] PATHOLOGIST NUTRITION SERVICES AIDE SIXTO LOZANO M.D. Performed By: #### B MP #### [address] Chloride [Moles/Vol] 99 mmol/L Normal 98-107 [facility] Comment on above: Performed By: #### B MP #### [address] CO2 [Moles/Vol] 28.7 mmol/L Normal 21.0-31.0 [facility] Comment on above: Performed By: #### B MP #### [address] Creatinine [Mass/Vol] 0.80 mg/dL Normal 0.60-1.20 [facility] Comment on above: Performed By: #### B MP #### [place] [address] [place] GFR/1.73 sq M.predicted MDRD (S/P/Bld) [Vol rate/Area] mL/min/{1.73_m2} Normal [facility] Comment on above: Performed By: #### B MP #### [place] [id number] [place] Glucose [Mass/Vol] 126 mg/dL High 70-100 [facility] Comment on above: Result Comment: [place] Glucose Reference Range is dependent on time and content of last meal. Glucose of more than 200 mg/dL in a nonstressed, ambulatory subject supports the diagnosis of Diabetes Mellitus. ADA recommended reference range Performed By: #### B MP #### [facility] [address] Potassium [Moles/Vol] 4.1 mmol/L Normal 3.5-5.1 [facility] Comment on above: Performed By: #### B MP #### [facility] [address] Sodium [Moles/Vol] 137 mmol/L Normal 136-145 [facility] Comment on above: Performed By: #### B MP #### [facility] [address] Urea nitrogen [Mass/Vol] 18 mg/dL Normal 7-25 [facility] Comment on above: Performed By: #### B MP #### [facility] [address] [place] [address] [place] Basophils Auto (Bld) [#/Vol] Ordered By: Lee Chowdary on 08-27-2022 Basophils (Bld) [#/Vol] 0.2 10*3/uL 0.0-0.2 [facility] Basophils/100 WBC Auto (Bld) Ordered By: Lee Chowdary on 08-27-2022 Basophils/100 WBC (Bld) 1.4 % . [facility] Calcium [Mass/volume] in Ser um or PlasmaOrdered By: Lee Chowdary on 08-27-2022 Calcium [Mass/Vol] 9.8 mg/dL 8.6-10.3 [facility] Carbon dioxide, total [Moles /volume] in Serum or PlasmaOrdered By: eLe Chowdary on 08-27-2022 CO2 [Moles/Vol] 28.7 mmol/L 21.0-31.0 [facility] Chloride [Moles/volume] in S sophia or PlasmaOrdered By: Lee Chowdary on 08-27-2022 Chloride [Moles/Vol] 99 mmol/L 98-107 [facility] Complete Blood Count Auto Di ffon 08-27-2022 Basophils (Bld) [#/Vol] 0.2 10*3/uL Normal 0.0-0.2 [facility] Comment on above: Result Comment: PERF ORMED BY: [place] [address] PATHOLOGIST NUTRITION SERVICES AIDE SIXTO LOZANO M.D. Performed By: #### C BC #### [address] Basophils/100 WBC (Bld) 1.4 % Normal . [facility] Comment on above: Performed By: #### C BC #### [address] Eosinophils (Bld) [#/Vol] 0.5 10*3/uL High 0.0-0.45 [facility] Comment on above: Performed By: #### C BC #### [address] Eosinophils/100 WBC (Bld) 4.5 % Normal . [facility] Comment on above: Performed By: #### C BC #### [address] Erythrocyte distribution width (RBC) [Ratio] 13.4 % Normal 11.9-15.3 [facility] Comment on above: Performed By: #### C BC #### [address] Hematocrit (Bld) [Volume fraction] 42.2 % Normal 34.0-46.4 [facility] Comment on above: Performed By: #### C BC #### [address] Hemoglobin (Bld) [Mass/Vol] 14.0 g/dL Normal 11.8-15.4 [facility] Comment on above: Performed By: #### C BC #### [address] Lymphocytes (Bld) [#/Vol] 5.0 10*3/uL High 1.00-4.8 [facility] Comment on above: Performed By: #### C BC #### [address] Lymphocytes/100 WBC (Bld) 42.7 % Normal . [facility] Comment on above: Performed By: #### C BC #### [address] MCH (RBC) [Entitic mass] 30.3 pg Normal 24.7-34.3 [facility] Comment on above: Performed By: #### C BC #### [address] MCV (RBC) [Entitic vol] 91.0 fL Normal 80-100 [facility] Comment on above: Performed By: #### C BC #### [address] Mean Corpuscular HGB Conc 33.3 g/dL Normal 32.0-35.0 [facility] Comment on above: Performed By: #### C BC #### [address] Monocytes (Bld) [#/Vol] 1.2 10*3/uL High 0.0-0.8 [facility] Comment on above: Performed By: #### C BC #### [address] Monocytes/100 WBC (Bld) 10.0 % Normal . [facility] Comment on above: Performed By: #### C BC #### [address] Neutrophils (Bld) [#/Vol] 4.8 10*3/uL Normal 1.8-7.7 [facility] Comment on above: Performed By: #### C BC #### [address] Neutrophils/100 WBC (Bld) 41.4 % Normal . [facility] Comment on above: Performed By: #### C BC #### [facility] [address] NRBC% 0.1 /100{WBC} Normal 0-0.5 [facility] Comment on above: Performed By: #### C BC #### [facility] [address] Platelet mean volume (Bld) [Entitic vol] 8.6 fL Normal 6.3-10.7 [facility] Comment on above: Performed By: #### C BC #### [facility] [address] Platelets (Bld) [#/Vol] 355 10*3/uL Normal 150-450 [facility] Comment on above: Performed By: #### C BC #### [facility] [address] RBC (Bld) [#/Vol] 4.64 10*6/uL Normal 3.60-5.00 [facility] Comment on above: Performed By: #### C BC #### [facility] [address] WBC (Bld) [#/Vol] 11.6 10*3/uL Normal 3.8-11.6 [facility] Comment on above: Performed By: #### C BC #### [facility] [address] Creatinine [Mass/volume] in Serum or PlasmaOrdered By: Lee Chowdary on 08-27-2022 Creatinine [Mass/Vol] 0.80 mg/dL 0.60-1.20 [facility] Eosinophils Auto (Bld) [#/Vo l]Ordered By: Lee Chowdary on 08-27-2022 Eosinophils (Bld) [#/Vol] 0.5 10*3/uL 0.0-0.45 [facility] Eosinophils/100 WBC Auto (Bl d)Ordered By: Lee Chowdary on 08-27-2022 Eosinophils/100 WBC (Bld) 4.5 % . [facility] Erythrocyte distribution wid th Auto (RBC) [Ratio]Ordered By: Lee Chowdary on 08-27-2022 Erythrocyte distribution width (RBC) [Ratio] 13.4 % 11.9-15.3 [facility] Glucose [Mass/volume] in Ser um or PlasmaOrdered By: Lee Chowdary on 08-27-2022 Glucose [Mass/Vol] 126 mg/dL 70-100 [facility] Comment on above: ADA recommended refe rence rangeRandom Glucose Reference Range is dependent on time and content of last meal. Glucose of more than 200 mg/dL in a nonstressed, ambulatory subject supports the diagnosis of Diabetes Mellitus. Hematocrit Auto (Bld) [Volum e fraction]Ordered By: Lee Chowdary on 08-27-2022 Hematocrit (Bld) [Volume fraction] 42.2 % 34.0-46.4 [facility] Hemoglobin [Mass/volume] in BloodOrdered By: Lee Chowdary on 08-27-2022 Hemoglobin (Bld) [Mass/Vol] 14.0 g/dL 11.8-15.4 [facility] Leukocytes [#/volume] correc imer for nucleated erythrocytes in Blood by Automated counOrdered By: Lee Chowdary on 08-27-2022 WBC corrected for nucl RBC Auto (Bld) [#/Vol] 11.6 10*3/uL 3.8-11.6 [facility] Lymphocytes Auto (Bld) [#/Vo l]Ordered By: Lee Chowdary on 08-27-2022 Lymphocytes (Bld) [#/Vol] 5.0 10*3/uL 1.00-4.8 [facility] Lymphocytes/100 WBC Auto (Bl d)Ordered By: Lee Chowdary on 08-27-2022 Lymphocytes/100 WBC (Bld) 42.7 % . [facility] MCH Auto (RBC) [Entitic mass ]Ordered By: Lee Chowdary on 08-27-2022 MCH (RBC) [Entitic mass] 30.3 pg 24.7-34.3 [facility] MCHC Auto (RBC) [Mass/Vol]Or dered By: Lee Chowdary on 08-27-2022 MCHC (RBC) [Mass/Vol] 33.3 g/dL 32.0-35.0 [facility] MCV Auto (RBC) [Entitic vol] Ordered By: Lee Chowdary on 08-27-2022 MCV (RBC) [Entitic vol] 91.0 fL 80-100 [facility] Monocytes Auto (Bld) [#/Vol] Ordered By: Lee Chowdary on 08-27-2022 Monocytes (Bld) [#/Vol] 1.2 10*3/uL 0.0-0.8 [facility] Monocytes/100 WBC Auto (Bld) Ordered By: Lee Chowdary on 08-27-2022 Monocytes/100 WBC (Bld) 10.0 % . [facility] Neutrophils Auto (Bld) [#/Vo l]Ordered By: Lee Chowdary on 08-27-2022 Neutrophils (Bld) [#/Vol] 4.8 10*3/uL 1.8-7.7 [facility] Neutrophils/100 WBC Auto (Bl d)Ordered By: Lee Chowdary on 08-27-2022 Neutrophils/100 WBC (Bld) 41.4 % . [facility] No Panel InformationOrdered By: Lee Chowdary on 08-27-2022 Estimated GFR (CKD-EPI) > 60.0 mL/Min [facility] Creatinine Clearance (Chem N/A [facility] Nucleated erythrocytes [Pres ence] in Blood by Automated countOrdered By: Lee Chowdary on 08-27-2022 Nucleated RBC Auto Ql (Bld) 0.1 /100{WBC} 0-0.5 [facility] Platelet mean volume Auto (B ld) [Entitic vol]Ordered By: Lee Chowdary on 08-27-2022 Platelet mean volume (Bld) [Entitic vol] 8.6 fL 6.3-10.7 [facility] Platelets Auto (Bld) [#/Vol] Ordered By: Lee Chowdary on 08-27-2022 Platelets (Bld) [#/Vol] 355 10*3/uL 150-450 [facility] Potassium [Moles/volume] in Serum or PlasmaOrdered By: Lee Chowdary on 08-27-2022 Potassium [Moles/Vol] 4.1 mmol/L 3.5-5.1 [facility] RBC Auto (Bld) [#/Vol]Ordere d By: Lee Chowdary on 08-27-2022 RBC (Bld) [#/Vol] 4.64 10*6/uL 3.60-5.00 [facility] Serum or plasma anion gap de terminationOrdered By: Lee Chowdary on 08-27-2022 Anion gap [Moles/Vol] 13.4 mmol/L 6.0-15.0 [facility] Sodium [Moles/volume] in Ser um or PlasmaOrdered By: Lee Chowdary on 08-27-2022 Sodium [Moles/Vol] 137 mmol/L 136-145 [facility] Urea nitrogen [Mass/volume] in Serum or PlasmaOrdered By: Lee Chowdary on 08-27-2022 Urea nitrogen [Mass/Vol] 18 mg/dL 7-25 [facility] WBC Auto (Bld) [#/Vol]Ordere d By: Lee Chowdary on 08-27-2022 WBC (Bld) [#/Vol] 11.6 10*3/uL 3.8-11.6 [facility] CBC AUTO DIFFon 07-24-2022 BASO # 0.2 103/ul Critically high 0.0-0.1 [facility] Comment on above: Performed By: #### C BC #### [facility] [address] [place] [address] Dr. Aurelio Leavitt Basophils/100 WBC (Bld) 1.4 % Normal 0.2-2.0 [facility] Comment on above: Performed By: #### C BC #### [facility] [address] [place] [address] Dr. Aurelio Leavitt EO # 0.7 103/ul Normal 0.0-0.7 [facility] Comment on above: Performed By: #### C BC #### [facility] [address] [place] [address] Dr. Aurelio Leavitt Eosinophils/100 WBC (Bld) 4.5 % Normal 0.9-7.0 [facility] Comment on above: Performed By: #### C BC #### [facility] [address] [place] [address] Dr. Aurelio Leavitt Erythrocyte distribution width (RBC) [Ratio] 13.3 % Normal 11.0-15.0 [facility] Comment on above: Performed By: #### C BC #### [facility] [address] [place] [address] Dr. Aurelio Leavitt Hematocrit (Bld) [Volume fraction] 48.8 % Critically high 36.0-48.0 [facility] Comment on above: Performed By: #### C BC #### [facility] [address] [place] [address] Dr. Aurelio Leavitt Hemoglobin (Bld) [Mass/Vol] 16.7 g/dL Critically high 12.0-16.0 [facility] Comment on above: Performed By: #### C BC #### [facility] [address] [place] [address] Dr. Aurelio Leavitt IG # 0.06 10e3/ul Critically high 0.00-0.03 [facility] Comment on above: Performed By: #### C BC #### [facility] [address] [place] [address] Dr. Aurelio Leavitt IG % 0.4 % Normal 0.0-0.5 [facility] Comment on above: Performed By: #### C BC #### [facility] [address] [place] [address] Dr. Aurelio Leavitt LYMPH # 6.2 103/ul Critically high 1.2-3.8 [facility] Comment on above: Performed By: #### C BC #### [facility] [address] [place] [address] Dr. Aurelio Leavitt Lymphocytes/100 WBC (Bld) 42.2 % Normal 20.5-60.0 [facility] Comment on above: Performed By: #### C BC #### [facility] [address] [place] [address] Dr. Aurelio Leavitt MANUAL DIFF REQ NO Normal [facility] Comment on above: Performed By: #### C BC #### [facility] [address] [place] [address] Dr. Aurelio Leavitt MCH (RBC) [Entitic mass] 30.4 pg Normal 26.7-34.0 [facility] Comment on above: Performed By: #### C BC #### [facility] [address] [place] [address] Dr. Aurelio Leavitt MCHC (RBC) [Mass/Vol] 34.2 g/dL Normal 29.9-35.2 [facility] Comment on above: Performed By: #### C BC #### [facility] [address] [place] [address] Dr. Aurelio Leavitt MCV (RBC) [Entitic vol] 88.9 fL Normal 81.0-99.0 [facility] Comment on above: Performed By: #### C BC #### [facility] [address] [place] [address] Dr. Aurelio Leavitt MONO # 1.1 103/ul Critically high 0.3-0.8 [facility] Comment on above: Performed By: #### C BC #### [facility] [address] [place] [address] Dr. Aurelio Leavitt Monocytes/100 WBC (Bld) 7.2 % Normal 1.7-12.0 [facility] Comment on above: Performed By: #### C BC #### [facility] [address] [place] [address] Dr. Aurelio Leavitt NEUT # 6.5 103/ul Normal 1.4-6.5 [facility] Comment on above: Performed By: #### C BC #### [facility] [address] [place] [address] Dr. Aurelio Leavitt Neutrophils/100 WBC (Bld) 44.3 % Normal 43.0-75.0 [facility] Comment on above: Performed By: #### C BC #### [facility] [address] [place] [address] Dr. Aurelio Leavitt Platelet mean volume (Bld) [Entitic vol] 11.5 fL Normal 9.5-13.5 [facility] Comment on above: Performed By: #### C BC #### [facility] [address] [place] [address] Dr. Aurelio Leavitt PLT 350 103/ul Normal 150-450 [facility] Comment on above: Performed By: #### C BC #### [facility] [address] [address] [address] Aurelio Levaitt RBC 5.49 106/ul Critically high 4.20-5.40 [facility] Comment on above: Performed By: #### C BC #### [facility] [address] [place] [address] Dr. Aurelio Leavitt WBC 14.6 103/ul Critically high 4.0-11.0 [facility] Comment on above: Performed By: #### C BC #### [facility] [address] [place] [address] Dr. Aurelio Levaitt DIRECT LDLon 07-24-2022 Cholesterol in LDL [Mass/Vol] 102 mg/dL Normal [facility] Comment on above: Performed By: #### C MREP #### [facility] [address] [place] [address] Dr. Aurelio Leavitt DLDL NORMAL SEE BELOW Normal [facility] Comment on above: Result Comment: <100 mg/dl OPTIMAL 100 - 129 mg/dl NEAR OR ABOVE OPTIMAL 130 - 159 mg/dl BORDERLINE HIGH 160 - 189 mg/dl HIGH >190 mg/dl VERY HIGH Performed By: #### C MREP #### [facility] [address] [place] [address] Dr. Aurelio Leavitt GLYCOHEMOGLOBIN A1Con 2022 ADA RECOMMENDATION SEE BELOW Normal [facility] Comment on above: Result Comment: ADA RECOMMENDED LIMIT 4.0 - 6.0 ADA THERAPEUTIC TARGET < 7.0 ACTION SUGGESTED > 7.0 Performed By: #### A CETON #### [facility] [address] [place] [address] Dr. Aurelio Leavitt Glucose [Mass/Vol] 266 mg/dL Normal [facility] Comment on above: Performed By: #### A CETON #### [facility] [address] [address] [address] Aurelio Leavitt HbA1c (Bld) [Mass fraction] 10.9 % Critically high 4.5-6.2 [facility] Comment on above: Performed By: #### A CETON #### [facility] [address] [address] [address] Aurelio Leavitt LIPID PROFILEon 07-24-2022 CHOL-HDL RATIO NORM SEE BELOW Normal [facility] Comment on above: Result Comment: 3.3 - 4.4 LOW RISK 4.4 - 7.1 AVERAGE RISK 7.1 - 11.0 MODERATE RISK >11.0 HIGH RISK Performed By: #### C MREP #### [facility] [address] [address] [address] Aurelio Leavitt Cholesterol [Mass/Vol] 257 mg/dL Critically high <=200 [facility] Comment on above: Performed By: #### C MREP #### [facility] [address] [address] [address] Aurelio Leavitt Cholesterol in HDL [Mass/Vol] 34 mg/dL Critically low 40-60 [facility] Comment on above: Performed By: #### C MREP #### [facility] [address] [address] [address] Aurelio Leavitt Cholesterol.total/Linda sterol in HDL [Mass ratio] 7.6 {ratio} Normal [facility] Comment on above: Performed By: #### C MREP #### [facility] [address] [address] [address] Aurelio Leavitt HDL NORMAL > or = 60 mg/dl - LOW CARDIOVASCULAR RISK <40 mg/dl - HIGH CARDIOVASCULAR RISK Normal [facility] Comment on above: Performed By: #### C MREP #### [facility] [address] [address] [address] Aurelio Leavitt LDL CALC NORMAL SEE BELOW Normal [facility] Comment on above: Result Comment: <100 mg/dl OPTIMAL 100 - 129 mg/dl NEAR OR ABOVE OPTIMAL 130 - 159 mg/dl BORDERLINE HIGH 160 - 189 mg/dl HIGH >190 mg/dl VERY HIGH Performed By: #### C MREP #### [facility] [address] [address] [address] Aurelio Leavitt Triglyceride [Mass/Vol] 934 mg/dL Critically high <=150 [facility] Comment on above: Performed By: #### C MREP #### [facility] [address] [address] [address] Aurelio Leavitt VLDL CALC 186.8 mg/dL Normal [facility] Comment on above: Performed By: #### C MREP #### [facility] [address] [address] [address] Aurelio Leavitt LIVER PROFILEon 07-24-2022 Albumin [Mass/Vol] 4.2 g/dL Normal 3.4-5.0 [facility] Comment on above: Performed By: #### C MREP #### [facility] [address] [place] [address] Dr. Aurelio Leavitt Albumin/Globulin [Mass ratio] 1.2 {ratio} Normal [facility] Comment on above: Performed By: #### C MREP #### [facility] [address] [address] [address] Aurelio Leavitt ALP [Catalytic activity/Vol] 127 U/L Critically high 46-116 [facility] Comment on above: Performed By: #### C MREP #### [facility] [address] [place] [address] Dr. Aurelio Leavitt ALT [Catalytic activity/Vol] 33 U/L Normal 14-59 [facility] Comment on above: Performed By: #### C MREP #### [facility] [address] [place] [address] Dr. Aurelio Leavitt AST [Catalytic activity/Vol] 14 U/L Critically low 15-37 [facility] Comment on above: Performed By: #### C MREP #### [facility] [address] [address] [address] Aurelio Leavitt BILI, CONJUGATED 0.1 mg/dL Normal 0.0-0.2 [facility] Comment on above: Performed By: #### C MREP #### [facility] [address] [address] [address] Aurelio Leavitt Bilirubin [Mass/Vol] 0.2 mg/dL Normal 0.2-1.0 [facility] Comment on above: Performed By: #### C MREP #### [facility] [address] [address] [address] Aurelio Leavitt Globulin (S) [Mass/Vol] 3.5 g/dL Normal [facility] Comment on above: Performed By: #### C MREP #### [facility] [address] [address] [address] Aurelio Leavitt Protein [Mass/Vol] 7.7 g/dL Normal 6.4-8.2 [facility] Comment on above: Performed By: #### C MREP #### [facility] [address] [place] [address] Dr. Aurelio Leavitt PROF CHEM 8 (BAS METB)on Anion gap [Moles/Vol] 10.4 mmol/L Normal [facility] Comment on above: Performed By: #### C MREP #### [facility] [address] [place] [address] Dr. Aurelio Leavitt Calcium [Mass/Vol] 9.5 mg/dL Normal 8.5-10.1 [facility] Comment on above: Performed By: #### C MREP #### [facility] [address] [place] [address] Dr. Aurelio Leavitt Chloride [Moles/Vol] 97 mmol/L Critically low 98-107 [facility] Comment on above: Performed By: #### C MREP #### [facility] [address] [address] [address] Aurelio Leavitt CO2 [Moles/Vol] 30.3 mmol/L Normal 21.0-32.0 [facility] Comment on above: Performed By: #### C MREP #### [facility] [address] [place] [address] Dr. Aurelio Leavitt Creatinine [Mass/Vol] 0.62 mg/dL Normal 0.55-1.02 [facility] Comment on above: Performed By: #### C MREP #### [facility] [address] [address] [address] Aurelio Leavitt EGFR-AF PARAGUAYAN 60 mL/min/1.73m2 Normal >=60 [facility] Comment on above: Performed By: #### C MREP #### [facility] [address] [address] [address] Aurelio Leavitt EGFR-NON AF PARAGUAYAN 60 mL/min/1.73m2 Normal >=60 [facility] Comment on above: Performed By: #### C MREP #### [facility] [address] [address] [address] Aurelio Leavitt Glucose [Mass/Vol] 252 mg/dL Critically high 74-106 [facility] Comment on above: Performed By: #### C MREP #### [facility] [address] [place] [address] Dr. Aurelio Leavitt Potassium [Moles/Vol] 3.7 mmol/L Normal 3.5-5.1 [facility] Comment on above: Performed By: #### C MREP #### [facility] [address] [place] [address] Dr. Aurelio Leavitt Sodium [Moles/Vol] 134 mmol/L Critically low 136-145 [facility] Comment on above: Performed By: #### C MREP #### [facility] [address] [address] [address] Aurelio Leavitt Urea nitrogen [Mass/Vol] 13.0 mg/dL Normal 7.0-18.0 [facility] Comment on above: Performed By: #### C MREP #### [facility] [address] [address] [address] Aurelio Leavitt Urea nitrogen/Creatinine [Mass ratio] 21.0 mg/mg Normal [facility] Comment on above: Performed By: #### C MREP #### [facility] [address] [address] [address] Aurelio Leavitt TSHon 07-24-2022 TSH 2.102 uIU/mL Normal 0.358-3.740 [facility] [place] Comment on above: Performed By: #### C MREP #### [facility] [address] [place] [address] Dr. Aurelio Leavitt US CHESTon 07-10-2022 US [...] by: AVINASH SERRATO Date: 2022-07-10 16:41 Normal [facility] NM STRESS/REST MULTIon 06-26 NM STRESS/REST MULTI Patient: BOB ZENG Exam Date: 06/26/2022 : 1975 Gender:F Ordering : DR JOSH OCHOA . Admission #: [id number] Family : Order #: [id number] CLICK HERE TO VIEW EXAM RADIOLOGY REPORT [...] OF STUDY: Good. PERFUSION DEFECT: LOCATION: Mid-anterior. [place]. SIZE: Small (1-2 segments). SEVERITY: Mild. TYPE: [...] Serrato MD on 06/27/2022 at 06:05 Normal [facility] XR TSPINE 3 VIEWSon 06-26-19 23 XR [...] by: BARTOLOME RODRIGUEZ Date: 2022-06-26 09:05 Normal [facility] ALBUMINon 03-29-2022 Albumin [Mass/Vol] 3.5 g/dL Normal 3.4-5.0 [facility] Comment on above: Performed By: #### C MREP #### [facility] [address] [address] [address] Aurelio Leavitt AMYLASEon 03-29-2022 Amylase [Catalytic activity/Vol] 27 U/L Normal 25-115 [facility] Comment on above: Performed By: #### A MY, LIPA, CMADM #### [facility] [address] [place], [place] [address] Dr. Aurelio Leavitt Albumin [Mass/volume] in Ser um or PlasmaOrdered By: Marie Elias on 03-29-2022 Albumin [Mass/Vol] 3.5 g/dL 3.2-5.5 [facility] Amylaseon 03-29-2022 Amylase [Catalytic activity/Vol] 29 U/L Normal 28-100 [facility] Comment on above: Order Comment: [facility] Performed By: #### C MP, JACQUELYN, LIPASE #### [facility] [address] CARDIAC FANNY 3-6on 2 CK [Catalytic activity/Vol] 107 U/L Normal 26-192 [facility] Comment on above: Performed By: #### C MREP #### [facility] [address] [address] [address] Aurelio Leavitt CK.MB [Mass/Vol] 1.04 ng/mL Normal <=3.60 [facility] Comment on above: Performed By: #### C MREP #### [facility] [address] [address] [address] Aurelio Leavitt HSTROP 5.8 pg/mL Normal 4.0-51.3 [facility] Comment on above: Result Comment: CUT- OFF POINTS HAVE BEEN ESTABLISHED BASED ON THE FOURTH UNIVERSAL DEFINITIONS OF MYOCARDIAL INFARCTION. THE UPPER REFERENCE LIMIT (URL) OF TROPONIN, DEFINED THE 99TH PERCENTILE OF cTnI DISTRIBUTION IN A REFERENCE POPULATION, HAS BEEN CONFIRMED THE DECISION THRESHOLD FOR MA DIAGNOSIS. Performed By: #### C MREP #### [facility] [address] [address] [address] Aurelio Leavitt CARDIAC FANNY ADMITon 022 CK [Catalytic activity/Vol] 96 U/L Normal 26-192 [facility] Comment on above: Performed By: #### A MY LIPA, CMADM #### [facility] [address] [place] [address] Dr. Aurelio Leavitt CK.MB [Mass/Vol] 0.89 ng/mL Normal <=3.60 [facility] Comment on above: Performed By: #### A MY LIPA, CMADM #### [facility] [address] [address] [address] Aurelio Leavitt HSTROP 5.7 pg/mL Normal 4.0-51.3 [facility] Comment on above: Result Comment: CUT- OFF POINTS HAVE BEEN ESTABLISHED BASED ON THE FOURTH UNIVERSAL DEFINITIONS OF MYOCARDIAL INFARCTION. THE UPPER REFERENCE LIMIT (URL) OF TROPONIN, DEFINED THE 99TH PERCENTILE OF cTnI DISTRIBUTION IN A REFERENCE POPULATION, HAS BEEN CONFIRMED THE DECISION THRESHOLD FOR [place] DIAGNOSIS. Performed By: #### A MY, LIPA, CMADM #### [facility] [address] [address] [address] Aurelio Leavitt ROMULO 24 ng/mL Normal 9-82 [facility] Comment on above: Performed By: #### A MY, LIPA, CMADM #### [facility] [address] [place] [address] Dr. Aurelio Leavitt CBC AUTO DIFFon 03-29-2022 BASO # 0.1 103/ul Normal 0.0-0.1 [facility] Comment on above: Performed By: #### C BC #### [facility] [address] [place] [address] Dr. Aurelio Leavitt Basophils/100 WBC (Bld) 1.1 % Normal 0.2-2.0 [facility] Comment on above: Performed By: #### C BC #### [facility] [address] [place] [address] Dr. Aurelio Leavitt EO # 0.2 103/ul Normal 0.0-0.7 [facility] Comment on above: Performed By: #### C BC #### [facility] [address] [place] [address] Dr. Aurelio Leavitt Eosinophils/100 WBC (Bld) 2.9 % Normal 0.9-7.0 [facility] Comment on above: Performed By: #### C BC #### [facility] [address] [place] [address] Dr. Aurelio Leavitt Erythrocyte distribution width (RBC) [Ratio] 13.2 % Normal 11.0-15.0 [facility] Comment on above: Performed By: #### C BC #### [facility] [address] [place] [address] Dr. Aurelio Leavitt Hematocrit (Bld) [Volume fraction] 45.2 % Normal 36.0-48.0 [facility] Comment on above: Performed By: #### C BC #### [facility] [address] [place] [address] Dr. Aurelio Leavitt Hemoglobin (Bld) [Mass/Vol] 16.3 g/dL Critically high 12.0-16.0 [facility] Comment on above: Performed By: #### C BC #### [facility] [address] [place] [address] Dr. Aurelio Leavitt IG # 0.02 10e3/ul Normal 0.00-0.03 [facility] Comment on above: Performed By: #### C BC #### [facility] [address] [place] [address] Dr. Aurelio Leavitt IG % 0.3 % Normal 0.0-0.5 [facility] Comment on above: Performed By: #### C BC #### [facility] [address] [place] [address] Dr. Aurelio Leavitt LYMPH # 3.8 103/ul Normal 1.2-3.8 [facility] Comment on above: Performed By: #### C BC #### [facility] [address] [place] [address] Dr. Aurelio Leavitt Lymphocytes/100 WBC (Bld) 51.4 % Normal 20.5-60.0 [facility] Comment on above: Performed By: #### C BC #### [facility] [address] [place] [address] Dr. Aurelio Leavitt MANUAL DIFF REQ NO Normal [facility] Comment on above: Performed By: #### C BC #### [facility] [address] [place] [address] Dr. Aurelio Leavitt MCH (RBC) [Entitic mass] 32.8 pg Normal 26.7-34.0 [facility] Comment on above: Performed By: #### C BC #### [facility] [address] [place] [address] Dr. Aurelio Leavitt MCHC (RBC) [Mass/Vol] 36.1 g/dL Critically high 29.9-35.2 [facility] Comment on above: Performed By: #### C BC #### [facility] [address] [place] [address] Dr. Aurelio Leavitt MCV (RBC) [Entitic vol] 90.9 fL Normal 81.0-99.0 [facility] Comment on above: Performed By: #### C BC #### [facility] [address] [place] [address] Dr. Aurelio Leavitt MONO # 0.6 103/ul Normal 0.3-0.8 [facility] Comment on above: Performed By: #### C BC #### [facility] [address] [address] [address] Aurelio Leavitt Monocytes/100 WBC (Bld) 8.0 % Normal 1.7-12.0 [facility] Comment on above: Performed By: #### C BC #### [facility] [address] [address] [address] Aurelio Leavitt NEUT # 2.7 103/ul Normal 1.4-6.5 [facility] Comment on above: Performed By: #### C BC #### [facility] [address] [address] [address] Aurelio Leavitt Neutrophils/100 WBC (Bld) 36.3 % Critically low 43.0-75.0 [facility] Comment on above: Performed By: #### C BC #### [facility] [address] [place] [address] Dr. Aurelio Leavitt Platelet mean volume (Bld) [Entitic vol] 11.5 fL Normal 9.5-13.5 [facility] Comment on above: Performed By: #### C BC #### [facility] [address] [place] [address] Dr. Aurelio Leavitt PLT 246 103/ul Normal 150-450 [facility] Comment on above: Performed By: #### C BC #### [facility] [address] [address] [address] Aurelio Leavitt RBC 4.97 106/ul Normal 4.20-5.40 [facility] Comment on above: Performed By: #### C BC #### [facility] [address] [place] [address] Dr. Aurelio Leavitt WBC 7.4 103/ul Normal 4.0-11.0 [facility] Comment on above: Performed By: #### C BC #### [facility] [address] [place] [address] Dr. Aurelio Leavitt Comprehensive Metabolic Pane dejuan 03-29-2022 Alanine Aminotransferase Normal 10-60 [facility] Comment on above: Order Comment: [facility] Result Comment: Spec imen hemolyzed, redraw requested Performed By: #### C MP, JACQUELYN, LIPASE #### [facility] [address] [place] [address] Albumin [Mass/Vol] 3.5 g/dL Normal 3.2-5.5 [facility] Comment on above: Order Comment: [facility] Performed By: #### C MP, JACQUELYN, LIPASE #### [address] Albumin/Globulin [Mass ratio] 1.3 {ratio} Normal [facility] Comment on above: Order Comment: [facility] Performed By: #### C MP, JACQUELYN, LIPASE #### [address] Alkaline Phosphatase Normal 32-92 [facility] Comment on above: Order Comment: [facility] Result Comment: Spec imen hemolyzed, redraw requested Performed By: #### C MP, JACQUELYN, LIPASE #### [facility] [address] [place] [address] Anion gap [Moles/Vol] Not performed Normal 6.0-15.0 [facility] Comment on above: Order Comment: [facility] Performed By: #### C MP, JACQUELYN, LIPASE #### [address] Aspartate Amino Transferase Normal 10-42 [facility] Comment on above: Order Comment: [facility] Result Comment: Spec imen hemolyzed, redraw requested Performed By: #### C MP, JACQUELYN, LIPASE #### [facility] [address] [place] [address] Bilirubin,Total Normal 0.3-1.2 [facility] Comment on above: Order Comment: [facility] Result Comment: Spec imen hemolyzed, redraw requested Performed By: #### C MP, JACQUELYN, LIPASE #### [facility] [address] [place] [address] Calcium [Mass/Vol] 8.8 mg/dL Normal 8.2-10.2 [facility] Comment on above: Order Comment: [facility] Performed By: #### C MP, JACQUELYN, LIPASE #### [facility] [address] Chloride [Moles/Vol] 101 mmol/L Normal 95-114 [facility] Comment on above: Order Comment: [facility] Performed By: #### C MP, JACQUELYN, LIPASE #### [address] CO2 [Moles/Vol] 21.3 mmol/L Low 22.0-30.0 [facility] Comment on above: Order Comment: [facility] Performed By: #### C MP, JACQUELYN, LIPASE #### [address] Creatinine [Mass/Vol] 0.53 mg/dL Normal 0.44-1.03 [facility] Comment on above: Order Comment: [facility] Performed By: #### C MP, JACQUELYN, LIPASE #### [address] Estimated GFR ( Giulia > 60 Normal [facility] Comment on above: Order Comment: [facility] Result Comment: GFR estimated reference range: According to KDOQI guidelines, <60 ml/min/1.73m2 is sufficient to diagnose a patient with chronic kidney disease. Performed By: #### C MP, JACQUELYN, LIPASE #### [address] Estimated GFR (Non- Am > 60 [facility] Comment on above: Order Comment: [facility] Performed By: #### C MP, JACQUELYN, LIPASE #### [facility] [address] [place] [address] Globulin (S) [Mass/Vol] 2.7 g/dL Normal [facility] Comment on above: Order Comment: [facility] Performed By: #### C MP, JACQUELYN, LIPASE #### [address] Glucose [Mass/Vol] 347 mg/dL High 70-100 [facility] Comment on above: Order Comment: [facility] Result Comment: [place] Glucose Reference Range is dependent on time and content of last meal. Glucose of more than 200 mg/dL in a nonstressed, ambulatory subject supports the diagnosis of Diabetes Mellitus. ADA recommended reference range Performed By: #### C MP, JACQUELYN, LIPASE #### [facility] [address] Potassium Normal 3.5-5.1 [facility] Comment on above: Order Comment: [facility] Result Comment: Spec imen hemolyzed, redraw requested Performed By: #### C MP, JACQUELYN, LIPASE #### [facility] [address] Protein [Mass/Vol] 6.2 g/dL Normal 6.1-7.9 [facility] Comment on above: Order Comment: [facility] Performed By: #### C MP, JACQUELYN, LIPASE #### [facility] [address] Sodium [Moles/Vol] 134 mmol/L Low 136-146 [facility] Comment on above: Order Comment: [facility] Performed By: #### C MP, JACQUELYN, LIPASE #### [address] Urea nitrogen [Mass/Vol] 8 mg/dL Low 9-23 [facility] Comment on above: Order Comment: [facility] Performed By: #### C MP, JACQUELYN, LIPASE #### [address] Creatinine and Glomerular fi ltration rate.predicted panel (S/P/Bld)Ordered By: Marie Elias on 03-29-2022 Creatinine [Mass/Vol] 0.53 mg/dL 0.44-1.03 [facility] ER URINE PROFILEon 2 Bilirubin Ql (U) Negative Normal NEGATIVE [facility] Comment on above: Performed By: #### L ACT #### [facility] [address] [address] [address] Aurelio Leavitt Clarity (U) CLEAR Normal CLEAR [facility] Comment on above: Performed By: #### L ACT #### [facility] [address] [place] [address] Dr. Aurelio Leavitt Color (U) LT. YELLOW Normal YELLOW [facility] Comment on above: Performed By: #### L ACT #### [facility] [address] [place] [address] Dr. Aurelio Leavitt ERUAHD A micrscopic examination will be performed if indicated. Normal [facility] Comment on above: Performed By: #### L ACT #### [facility] [address] [place] [address] Dr. Aurelio Leavitt Glucose Ql (U) >1000 Abnormal NEGATIVE [facility] Comment on above: Performed By: #### L ACT #### [facility] [address] [place] [address] Dr. Aurelio Leavitt Hemoglobin Ql (U) TRACE-LYSED Abnormal NEGATIVE [facility] Comment on above: Performed By: #### L ACT #### [facility] [address] [place] [address] Dr. Aurelio Leavitt Ketones Ql (U) 15 mg/dl Abnormal NEGATIVE [facility] Comment on above: Performed By: #### L ACT #### [facility] [address] [place] [address] Dr. Aurelio Leavitt LEUKOCYTES Negative Normal NEGATIVE [facility] Comment on above: Performed By: #### L ACT #### [facility] [address] [place] [address] Dr. Aurelio Leavitt Nitrite Ql (U) Negative Normal NEGATIVE [facility] Comment on above: Performed By: #### L ACT #### [facility] [address] [place] [address] Dr. Aurelio Leavitt pH (U) 5.5 [pH] Normal 5-9 [facility] Comment on above: Performed By: #### L ACT #### [facility] [address] [place] [address] Dr. Aurelio Leavitt SPEC GRAVITY 1.020 Normal 1.005-<=1.[address] [place] [address] Comment on above: Performed By: #### L ACT #### [facility] [address] [address] [address] Aurelio Leavitt UA PROTEIN Negative Normal NEGATIVE/ TRACE [facility] Comment on above: Performed By: #### L ACT #### [facility] [address] [address] [address] Aurelio Leavitt UR MICRO IND INDICATED Normal [facility] Comment on above: Performed By: #### L ACT #### [facility] [address] [address] [address] Aurelio Leavitt Urobilinogen Qn (U) 0.2 {Dalia'U}/dL Normal 0.2 - 1. 0 [facility] Comment on above: Performed By: #### L ACT #### [facility] [address] [address] [address] Aurelio Leavitt Estimated glomerular filtrat ion rate (GFR) non- AmericanOrdered By: Marie Elias on 03-29-2022 GFR/1.73 sq M.predicted among non-blacks MDRD (S/P/Bld) [Vol rate/Area] > 60 mL/Min [facility] Globulin Calc (S) [Mass/Vol] Ordered By: Marie Elias on 03-29-2022 Globulin (S) [Mass/Vol] 2.7 g/dL [facility] LACTATE/LACTIC ACIDon 2021 Lactate [Moles/Vol] 1.0 mmol/L Normal 0.4-1.9 [facility] Comment on above: Performed By: #### L ACT #### [facility] [address] [address] [address] Aurelio Leavitt LIPASEon 03-29-2022 Lipase [Catalytic activity/Vol] 139.0 U/L Normal 73.0-393.0 [facility] Comment on above: Performed By: #### A MY, LIPA, CMADM #### [facility] [address] [address] [address] Aurelio Leavitt LIVER PROFILE SEND OUTon Albumin, Serum LIPG Normal [facility] Comment on above: Result Comment: Test not performed. Specimen is grossly lipemic. Performed By: #### L ACT #### [facility] [address] [place], [place] [address] Dr. Aurelio Leavitt ALP [Catalytic activity/Vol] 126 U/L Critically high 44-121 [facility] Comment on above: Performed By: #### L ACT #### [facility] [address] [place], [place] [address] Dr. Aurelio Leavitt ALT [Catalytic activity/Vol] 66 U/L Critically high 0-32 [facility] Comment on above: Performed By: #### L ACT #### [facility] [address] [place], [place] [address] Dr. Aurelio Leavitt AST [Catalytic activity/Vol] 61 U/L Critically high 0-40 [facility] Comment on above: Performed By: #### L ACT #### [facility] [address] [address] [address] Aurelio Leavitt Bilirubin [Mass/Vol] mg/dL Normal 0.0-1.2 [facility] Comment on above: Performed By: #### L ACT #### [facility] [address] [address] [address] Aurelio Leavitt Bilirubin, Direct LIPG Normal [facility] Comment on above: Result Comment: Test not performed. Specimen is grossly lipemic. Performed By: #### L ACT #### [facility] [address] [place], [place] [address] Dr. Aurelio Leavitt Protein [Mass/Vol] 6.5 g/dL Normal 6.0-8.5 [facility] Comment on above: Performed By: #### L ACT #### [facility] [address] [address] [address] Aurelio Leavitt Laboratory - Chemistry and C hemistry - challengeOrdered By: Marie Elias on 03-29-2022 Lipase [Catalytic activity/Vol] 42.0 U/L [facility] Lactic Acidon 03-29-2022 Lactate [Moles/Vol] 1.0 mmol/L Normal 0.5-2.2 [facility] Comment on above: Order Comment: [facility] ER Result Comment: PERF ORMED BY: [facility] [address] [place] [address] PATHOLOGIST NUTRITION SERVICES AIDE SIXTO LOZANO M.D. Performed By: #### L ACTIC #### [facility] [address] [id number] [place] Lipaseon 03-29-2022 Lipase [Catalytic activity/Vol] 42.0 U/L Normal 22-51 [facility] Comment on above: Order Comment: [facility] Result Comment: PERF ORMED BY: [facility] [address] [place] [address] PATHOLOGIST NUTRITION SERVICES AIDE SIXTO LOZANO M.D. Performed By: #### C MP, JACQUELYN, LIPASE #### [facility] [address] [place] [address] No Panel InformationOrdered By: Marie Elias on 03-29-2022 Estimated GFR () > 60 mL/Min [facility] Comment on above: GFR estimated refere nce range: According to KDOQI guidelines, <60 ml/min/1.73m2 is sufficient to diagnose a patient with chronic kidney disease. Pharmacy Creatinine Clearance (Chem N/A [facility] PROF CHEM 8 ([facility] MET)on Anion gap [Moles/Vol] 15.8 mmol/L Normal [facility] Comment on above: Performed By: #### L ACT #### [facility] [address] [address] [address] Aurelio Leavitt Calcium [Mass/Vol] 8.8 mg/dL Normal 8.5-10.1 [facility] Comment on above: Performed By: #### L ACT #### [facility] [address] [address] [address] Aurelio Leavitt Chloride [Moles/Vol] 101 mmol/L Normal 98-107 [facility] Comment on above: Performed By: #### L ACT #### [facility] [address] [address] [address] Aurelio Leavitt CO2 [Moles/Vol] 21.3 mmol/L Normal 21.0-32.0 [facility] Comment on above: Performed By: #### L ACT #### [facility] [address] [address] [address] Aurelio Leavitt Creatinine [Mass/Vol] 0.53 mg/dL Critically low 0.55-1.02 [facility] Comment on above: Performed By: #### L ACT #### [facility] [address] [address] [address] Aurelio Leavitt EGFR-AF PARAGUAYAN >60 Normal >=60 [facility] Comment on above: Performed By: #### L ACT #### [facility] [address] [address] [address] Aurelio Leavitt EGFR-NON AF PARAGUAYAN >60 Normal >=60 [facility] Comment on above: Performed By: #### L ACT #### [facility] [address] [address] [address] Aurelio Leavitt Glucose [Mass/Vol] 347 mg/dL Critically high 74-106 [facility] Comment on above: Performed By: #### L ACT #### [facility] [address] [address] [address] Aurelio Leavitt Potassium [Moles/Vol] 4.1 mmol/L Normal 3.5-5.1 [facility] Comment on above: Performed By: #### L ACT #### [facility] [address] [address] [address] Aurelio Leavitt Sodium [Moles/Vol] 134 mmol/L Critically low 136-145 [facility] Comment on above: Performed By: #### L ACT #### [facility] [address] [address] [address] Aurelio Leavitt Urea nitrogen [Mass/Vol] 8.0 mg/dL Normal 7.0-18.0 [facility] Comment on above: Performed By: #### L ACT #### [facility] [address] [address] [address] Aurelio Leavitt Urea nitrogen/Creatinine [Mass ratio] 15.1 mg/mg Normal [facility] Comment on above: Performed By: #### L ACT #### [facility] [address] [address] [address] Aurelio Leavitt PROF CHEM 8 (BAS METB) SEND OUTon 03-29-2022 Calcium [Mass/Vol] 9.3 mg/dL Normal 8.7-10.2 [facility] Comment on above: Performed By: #### L ACT #### [facility] [address] [address] [address] Aurelio Leavitt Chloride [Moles/Vol] 92 mmol/L Critically low 96-106 [facility] Comment on above: Performed By: #### L ACT #### [facility] [address] [address] [address] Aurelio Leavitt CO2 [Moles/Vol] 27 mmol/L Normal 20-29 [facility] Comment on above: Performed By: #### L ACT #### [facility] [address] [place] [address] Dr. Aurelio Leavitt Creatinine [Mass/Vol] 1.89 mg/dL Critically high 0.57-1.00 [facility] Comment on above: Performed By: #### L ACT #### [facility] [address] [address] [address] Aurelio Leavitt GFR/1.73 sq M.predicted among non-blacks MDRD (S/P/Bld) [Vol rate/Area] 33 mL/min/{1.73_m2} Critically low >59 [facility] Comment on above: Performed By: #### L ACT #### [facility] [address] [address] [address] Aurelio Leavitt Glucose [Mass/Vol] 342 mg/dL Critically high 70-99 [facility] Comment on above: Performed By: #### L ACT #### [facility] [address] [address] [address] Aurelio Leavitt Potassium [Moles/Vol] 4.2 mmol/L Normal 3.5-5.2 [facility] Comment on above: Result Comment: Spec imen received hemolyzed. Value may be increased by hemolysis. Clinical correlation indicated. Performed By: #### L ACT #### [facility] [address] [place], [place] [address] Dr. Aurelio Leavitt Sodium [Moles/Vol] 129 mmol/L Critically low 134-144 [facility] Comment on above: Performed By: #### L ACT #### [facility] [address] [place], [place] [address] Dr. Aurelio Leavitt Urea nitrogen [Mass/Vol] 8 mg/dL Normal 6-24 [facility] Comment on above: Performed By: #### L ACT #### [facility] [address] [place], [place] [address] Dr. Aurelio Leavitt Urea nitrogen/Creatinine [Mass ratio] 4 mg/mg Critically low 9-23 [facility] Comment on above: Performed By: #### L ACT #### [facility] [address] [address] [address] Aurelio Leavitt Protein [Mass/volume] in Ser um or PlasmaOrdered By: Marie Elias on 03-29-2022 Protein [Mass/Vol] 6.2 g/dL 6.1-7.9 [facility] Serum or plasma alanine regalado otransferase measurement without P-5'-P (enzymatic activiOrdered By: Marie Elias on 03-29-2022 ALT No additional P-5'-P [Catalytic activity/Vol] See comment 1060 [facility] Comment on above: Specimen hemolyzed, redraw requested Serum or plasma albumin/glob ulin mass ratioOrdered By: Marie Elias on 03-29-2022 Albumin/Globulin [Mass ratio] 1.3 {ratio} [facility] Serum or plasma alkaline thomas sphatase measurement (enzymatic activity/volume)Ordered By: Marie Elias on 03-29-2022 ALP [Catalytic activity/Vol] See comment 3292 [facility] Comment on above: Specimen hemolyzed, redraw requested Serum or plasma amylase lexus urement (enzymatic activity/volume)Ordered By: Marie Elias on 03-29-2022 Amylase [Catalytic activity/Vol] 29 U/L 28-100 [facility] Serum or plasma anion gap de terminationOrdered By: Marie Elias on 03-29-2022 Anion gap [Moles/Vol] TNP [facility] Comment on above: Test not performed Serum or plasma aspartate am inotransferase measurement (enzymatic activity/volume)Ordered By: Marie Elias on 03-29-2022 AST [Catalytic activity/Vol] See comment 10-42 [facility] Comment on above: Specimen hemolyzed, redraw requested Serum or plasma calcium lexus urement (mass/volume)Ordered By: Marie Elias on 03-29-2022 Calcium [Mass/Vol] 8.8 mg/dL 8.2-10.2 [facility] Serum or plasma chloride sarai surement (moles/volume)Ordered By: Marie Elias on 03-29-2022 Chloride [Moles/Vol] 101 mmol/L 95-114 [facility] Serum or plasma glucose lexus urement (mass/volume)Ordered By: Marie Elias on 03-29-2022 Glucose [Mass/Vol] 347 mg/dL 70-100 [facility] Comment on above: ADA recommended refe rence rangeRandom Glucose Reference Range is dependent on time and content of last meal. Glucose of more than 200 mg/dL in a nonstressed, ambulatory subject supports the diagnosis of Diabetes Mellitus. Serum or plasma potassium me asurement (moles/volume)Ordered By: Marie Elias on 03-29-2022 Potassium [Moles/Vol] See comment 3.5-5.1 [facility] Comment on above: Specimen hemolyzed, redraw requested Serum or plasma sodium measu rement (moles/volume)Ordered By: Marie Elias on 03-29-2022 Sodium [Moles/Vol] 134 mmol/L 136-146 [facility] Serum or plasma total biliru bin measurement (mass/volume)Ordered By: Marie Elias on 03-29-2022 Bilirubin [Mass/Vol] See comment 0.3-1.2 [facility] Comment on above: Specimen hemolyzed, redraw requested Serum or plasma total carbon dioxide measurement (moles/volume)Ordered By: Marie Elias on 03-29-2022 CO2 [Moles/Vol] 21.3 mmol/L 22.0-30.0 [facility] Serum or plasma urea nitroge n measurement (mass/volume)Ordered By: Marie Elias on 03-29-2022 Urea nitrogen [Mass/Vol] 8 mg/dL 02-02 [facility] URINE MICROSCOPIC ONLYon BACTERIA TRACE Abnormal NONE SEEN [facility] Comment on above: Performed By: #### L ACT #### [facility] [address] [address] [address] Aurelio Leavitt Bacteria identified Cx Nom (U) NOT INDICATED Normal [facility] Comment on above: Performed By: #### L ACT #### [facility] [address] [address] [address] Aurelio Leavitt CAST NONE SEEN Normal NONE SEEN [facility] Comment on above: Performed By: #### L ACT #### [facility] [address] [address] [address] Aurelio Leavitt Crystals LM Nom (Urine sed) NONE SEEN Normal NONE SEEN [facility] Comment on above: Performed By: #### L ACT #### [facility] [address] [place] [address] Dr. Aurelio Leavitt Epithelial cells LM Ql (Urine sed) FEW Abnormal NONE SEEN /RARE [facility] Comment on above: Performed By: #### L ACT #### [facility] [address] [address] [address] Aurelio Leavitt MUCOUS NONE SEEN Normal NONE SEEN [facility] Comment on above: Performed By: #### L ACT #### [facility] [address] [address] [address] Aurelio Leavitt RBC 2-5 Abnormal 0-2 [facility] Comment on above: Performed By: #### L ACT #### [facility] [address] [address] [address] Aurelio Leavitt WBC 0-2 Abnormal NONE SEEN [facility] Comment on above: Performed By: #### L ACT #### [facility] [address] [place] [address] Dr. Aurelio Leavitt Urine lactic acid measuremen tOrdered By: Marie Elias on 03-29-2022 Lactate (U) [Moles/Vol] 1.0 mmol/L 0.5-2.2 F [facility] XR ABD FLAT UP_PA Emanuel 03-29 XR [...] by: JESSICA BOSTON Date: 2022-03-29 02:02 Normal [facility] AMYLASEon 03-28-2022 Amylase [Catalytic activity/Vol] 27 U/L Normal 25-115 [facility] Comment on above: Performed By: #### A CETON #### [facility] [address] [place] [address] Dr. Aurelio Leavitt CBC AUTO DIFFon 03-28-2022 BASO # 0.1 103/ul Normal 0.0-0.1 [facility] Comment on above: Performed By: #### L ACT #### [facility] [address] [place] [address] Dr. Aurelio Leavitt Basophils/100 WBC (Bld) 0.7 % Normal 0.2-2.0 [facility] Comment on above: Performed By: #### L ACT #### [facility] [address] [place] [address] Dr. Aurelio Leavitt EO # 0.2 103/ul Normal 0.0-0.7 [facility] Comment on above: Performed By: #### L ACT #### [facility] [address] [place] [address] Dr. Aurelio Leavitt Eosinophils/100 WBC (Bld) 1.9 % Normal 0.9-7.0 [facility] Comment on above: Performed By: #### L ACT #### [facility] [address] [place] [address] Dr. Aurelio Leavitt Erythrocyte distribution width (RBC) [Ratio] 13.3 % Normal 11.0-15.0 [facility] Comment on above: Performed By: #### L ACT #### [facility] [address] [place] [address] Dr. Aurelio Leavitt Hematocrit (Bld) [Volume fraction] 45.1 % Normal 36.0-48.0 [facility] Comment on above: Performed By: #### L ACT #### [facility] [address] [place] [address] Dr. Aurelio Leavitt Hemoglobin (Bld) [Mass/Vol] 16.8 g/dL Critically high 12.0-16.0 [facility] Comment on above: Performed By: #### L ACT #### [facility] [address] [place] [address] Dr. Aurelio Leavitt IG # 0.03 10e3/ul Normal 0.00-0.03 [facility] Comment on above: Performed By: #### L ACT #### [facility] [address] [place] [address] Dr. Aurelio Leavitt IG % 0.3 % Normal 0.0-0.5 [facility] Comment on above: Performed By: #### L ACT #### [facility] [address] [place] [address] Dr. Aurelio Leavitt LYMPH # 3.2 103/ul Normal 1.2-3.8 [facility] Comment on above: Performed By: #### L ACT #### [facility] [address] [place] [address] Dr. Aurelio Leavitt Lymphocytes/100 WBC (Bld) 27.9 % Normal 20.5-60.0 [facility] Comment on above: Performed By: #### L ACT #### [facility] [address] [place] [address] Dr. Aurelio Leavitt MANUAL DIFF REQ NO Normal [facility] Comment on above: Performed By: #### L ACT #### [facility] [address] [address] [address] Aruelio Leavitt MCH (RBC) [Entitic mass] 33.7 pg Normal 26.7-34.0 [facility] Comment on above: Performed By: #### L ACT #### [facility] [address] [place] [address] Dr. Aurelio Leavitt MCHC (RBC) [Mass/Vol] 37.3 g/dL Critically high 29.9-35.2 [facility] Comment on above: Performed By: #### L ACT #### [facility] [address] [place] [address] Dr. Aurelio Leavitt MCV (RBC) [Entitic vol] 90.4 fL Normal 81.0-99.0 [facility] Comment on above: Performed By: #### L ACT #### [facility] [address] [place] [address] Dr. Aurelio Leavitt MONO # 1.1 103/ul Critically high 0.3-0.8 [facility] Comment on above: Performed By: #### L ACT #### [facility] [address] [place] [address] Dr. Aurelio Leavitt Monocytes/100 WBC (Bld) 9.5 % Normal 1.7-12.0 [facility] Comment on above: Performed By: #### L ACT #### [facility] [address] [place] [address] Dr. Aurelio Leavitt NEUT # 6.8 103/ul Critically high 1.4-6.5 [facility] Comment on above: Performed By: #### L ACT #### [facility] [address] [place] [address] Dr. Aurelio Leavitt Neutrophils/100 WBC (Bld) 59.7 % Normal 43.0-75.0 [facility] Comment on above: Performed By: #### L ACT #### [facility] [address] [place] [address] Dr. Aurelio Leavitt Platelet mean volume (Bld) [Entitic vol] 12.1 fL Normal 9.5-13.5 [facility] Comment on above: Performed By: #### L ACT #### [facility] [address] [place] [address] Dr. Aurelio Leavitt PLT 247 103/ul Normal 150-450 [facility] [facility] Comment on above: Performed By: #### L ACT #### [facility] [address] [address] [address] Aurelio Leavitt RBC 4.99 106/ul Normal 4.20-5.40 [facility] Comment on above: Performed By: #### L ACT #### [facility] [address] [place] [address] Dr. Aurelio Leavitt WBC 11.3 103/ul Critically high 4.0-11.0 [facility] Comment on above: Performed By: #### L ACT #### [facility] [address] [place] [address] Dr. Aurelio Leavitt LIPASEon 03-28-2022 Lipase [Catalytic activity/Vol] 163.0 U/L Normal 73.0-393.0 [facility] Comment on above: Performed By: #### A CETON #### [facility] [address] [place] [address] Dr. Aurelio Leavitt GLYCOHEMOGLOBIN A1Con 2021 ADA RECOMMENDATION SEE BELOW Normal [facility] Comment on above: Result Comment: ADA RECOMMENDED LIMIT 4.0 - 6.0 ADA THERAPEUTIC TARGET < 7.0 ACTION SUGGESTED > 7.0 Performed By: #### A CETON #### [facility] [address] [place] [address] Dr. Aurelio Leavitt Glucose [Mass/Vol] 232 mg/dL Normal [facility] Comment on above: Performed By: #### A CETON #### [facility] [address] [place] [address] Dr. Aurelio Leavitt HbA1c (Bld) [Mass fraction] 9.7 % Critically high 4.5-6.2 [facility] Comment on above: Performed By: #### A CETON #### [facility] [address] [place] [address] Dr. Aurelio Leavitt ACETONE SERUMon 11-15-2021 ACETONE Negative Normal NEGATIVE [facility] Comment on above: Performed By: #### A CETON #### [facility] [address] [place] [address] Dr. Aurelio Leavitt CBC AUTO DIFFon 11-15-2021 BASO # 0.1 103/ul Normal 0.0-0.1 [facility] Comment on above: Performed By: #### A CETON #### [facility] [address] [place] [address] Dr. Aurelio Leavitt Basophils/100 WBC (Bld) 0.9 % Normal 0.2-2.0 [facility] Comment on above: Performed By: #### A CETON #### [facility] [address] [place] [address] Dr. Aurelio Leavitt EO # 0.2 103/ul Normal 0.0-0.7 [facility] Comment on above: Performed By: #### A CETON #### [facility] [address] [place] [address] Dr. Aurelio Leavitt Eosinophils/100 WBC (Bld) 1.7 % Normal 0.9-7.0 [facility] Comment on above: Performed By: #### A CETON #### [facility] [address] [place] [address] Dr. Aurelio Leavitt Erythrocyte distribution width (RBC) [Ratio] 13.5 % Normal 11.0-15.0 [facility] Comment on above: Performed By: #### A CETON #### [facility] [address] [place] [address] Dr. Aurelio Leavitt Hematocrit (Bld) [Volume fraction] 44.4 % Normal 36.0-48.0 [facility] Comment on above: Performed By: #### A CETON #### [facility] [address] [place] [address] Dr. Aurelio Leavitt Hemoglobin (Bld) [Mass/Vol] 15.4 g/dL Normal 12.0-16.0 [facility] Comment on above: Performed By: #### A CETON #### [facility] [address] [address] [address] Aurelio Leavitt IG # 0.09 10e3/ul Critically high 0.00-0.03 [facility] Comment on above: Performed By: #### A CETON #### [facility] [address] [address] [address] Aurelio Leavitt IG % 0.8 % Critically high 0.0-0.5 [facility] Comment on above: Performed By: #### A CETON #### [facility] [address] [place] [address] Dr. Aurelio Leavitt LYMPH # 3.8 103/ul Normal 1.2-3.8 [facility] Comment on above: Performed By: #### A CETON #### [facility] [address] [place] [address] Dr. Aurelio Leavitt Lymphocytes/100 WBC (Bld) 35.1 % Normal 20.5-60.0 [facility] Comment on above: Performed By: #### A CETON #### [facility] [address] [place] [address] Dr. Aurelio Leavitt MANUAL DIFF REQ NO Normal [facility] Comment on above: Performed By: #### A CETON #### [facility] [address] [place] [address] Dr. Aurelio Leavitt MCH (RBC) [Entitic mass] 32.0 pg Normal 26.7-34.0 [facility] Comment on above: Performed By: #### A CETON #### [facility] [address] [address] [address] Aurelio Leavitt MCHC (RBC) [Mass/Vol] 34.7 g/dL Normal 29.9-35.2 [facility] Comment on above: Performed By: #### A CETON #### [facility] [address] [place] [address] Dr. Aurelio Leavitt MCV (RBC) [Entitic vol] 92.1 fL Normal 81.0-99.0 [facility] Comment on above: Performed By: #### A CETON #### [facility] [address] [address] [address] Aurelio Leavitt MONO # 1.0 103/ul Critically high 0.3-0.8 [facility] Comment on above: Performed By: #### A CETON #### [facility] [address] [place] [address] Dr. Aurelio Leavitt Monocytes/100 WBC (Bld) 9.0 % Normal 1.7-12.0 [facility] Comment on above: Performed By: #### A CETON #### [facility] [address] [place] [address] Dr. Aurelio Leavitt NEUT # 5.6 103/ul Normal 1.4-6.5 [facility] Comment on above: Performed By: #### A CETON #### [facility] [address] [place] [address] Dr. Aurelio Leavitt Neutrophils/100 WBC (Bld) 52.5 % Normal 43.0-75.0 [facility] Comment on above: Performed By: #### A CETON #### [facility] [address] [place] [address] Dr. Aurelio Leavitt Platelet mean volume (Bld) [Entitic vol] 12.3 fL Normal 9.5-13.5 [facility] Comment on above: Performed By: #### A CETON #### [facility] [address] [place] [address] Dr. Aurelio Leavitt PLT 304 103/ul Normal 150-450 [facility] Comment on above: Performed By: #### A CETON #### [facility] [address] [place] [address] Dr. Aurelio Leavitt RBC 4.94 106/ul Normal 4.20-5.40 [facility] Comment on above: Performed By: #### A CETON #### [facility] [address] [place] [address] Dr. Aurelio Leavitt WBC 11.0 103/ul Normal 4.0-11.0 [facility] Comment on above: Performed By: #### A CETON #### [facility] [address] [place] [address] Dr. Aurelio Leavitt Covid-19 PCR (CVDTBH)on SARS-CoV-2 (COVID-19) RNA GABY+probe Ql (Unsp spec) Detected Critically abnormal NOT DETECTED [facility] Comment on above: Result Comment: This test is not yet approved or cleared by the [place] FDA. When there are no FDA-approved or cleared tests available, and other criteria are met, FDA can make tests available under an emergency access mechanism called an Emergency Use Authorization (EUA). The EUA for this test is supported by the [place] of Health and Human Service's declaration that [...] used). Performed By: #### A CETON #### [facility] [address] [place] [address] Dr. Aurelio Leavitt D-DIMERon 11-15-2021 D-DIMER 0.30 mg/L FEU Normal <=0.59 [facility] Comment on above: Performed By: #### A CETON #### [facility] [address] [address] [address] Aurelio Leavitt D-DIMER COMMENTS SEE BELOW Normal [facility] Comment on above: Result Comment: Incr eases [...] hospitalization. Performed By: #### A CETON #### [facility] [address] [place] [address] Dr. Aurelio Leavitt PROF 14(COMP METB)on 022 Albumin [Mass/Vol] 3.1 g/dL Critically low 3.4-5.0 [facility] Comment on above: Performed By: #### H STROPN, CMP #### [facility] [address] [place] [address] Dr. Aurelio Leavitt Albumin/Globulin [Mass ratio] 0.7 {ratio} Normal [facility] Comment on above: Performed By: #### H STROPN, CMP #### [facility] [address] [address] [address] Aurelio Leavitt ALP [Catalytic activity/Vol] 130 U/L Critically high 46-116 [facility] Comment on above: Performed By: #### H STROPN, CMP #### [facility] [address] [place] [address] Dr. Aurelio Leavitt Anion gap [Moles/Vol] 16.1 mmol/L Normal [facility] Comment on above: Performed By: #### H STROPN, CMP #### [facility] [address] [place] [address] Dr. Aurelio Leavitt AST [Catalytic activity/Vol] 11 U/L Critically low 15-37 [facility] Comment on above: Performed By: #### H STROPN, CMP #### [facility] [address] [place] [address] Dr. Aurelio Leavitt Bilirubin [Mass/Vol] 1.0 mg/dL Normal 0.2-1.0 [facility] Comment on above: Performed By: #### H STROPN, CMP #### [facility] [address] [place] [address] Dr. Aurelio Leavitt Calcium [Mass/Vol] 7.3 mg/dL Critically low 8.5-10.1 [facility] Comment on above: Performed By: #### H STROPN, CMP #### [facility] [address] [place] [address] Dr. Aurelio Leavitt Chloride [Moles/Vol] 94 mmol/L Critically low 98-107 [facility] Comment on above: Performed By: #### H STROPN, CMP #### [facility] [address] [place] [address] Dr. Aurelio Leavitt CO2 [Moles/Vol] 20.6 mmol/L Critically low 21.0-32.0 [facility] Comment on above: Performed By: #### H STROPN, CMP #### [facility] [address] [address] [address] Aurelio Leavitt Creatinine [Mass/Vol] 0.57 mg/dL Normal 0.55-1.02 [facility] Comment on above: Performed By: #### H STROPN, CMP #### [facility] [address] [address] [address] Aurelio Leavitt EGFR-AF PARAGUAYAN >60 Normal >=60 [facility] Comment on above: Performed By: #### H STROPN, CMP #### [facility] [address] [address] [address] Aurelio Leavitt EGFR-NON AF PARAGUAYAN >60 Normal >=60 [facility] Comment on above: Performed By: #### H STROPN, CMP #### [facility] [address] [address] [address] Aurelio Leavitt Globulin (S) [Mass/Vol] 4.2 g/dL Normal [facility] Comment on above: Performed By: #### H STROPN, CMP #### [facility] [address] [address] [address] Aurelio Leavitt Glucose [Mass/Vol] 462 mg/dL Critically high 74-106 [facility] Comment on above: Performed By: #### H STROPN, CMP #### [facility] [address] [address] [address] Aurelio Leavitt Potassium [Moles/Vol] 4.7 mmol/L Normal 3.5-5.1 [facility] Comment on above: Performed By: #### H STROPN, CMP #### [facility] [address] [address] [address] Aurelio Leavitt Protein [Mass/Vol] 7.3 g/dL Normal 6.4-8.2 [facility] Comment on above: Performed By: #### H STROPN, CMP #### [facility] [address] [address] [address] Aurelio Leavitt Sodium [Moles/Vol] 126 mmol/L Critically low 136-145 Th [facility] Comment on above: Performed By: #### H ANANDA, CMP #### [facility] [address] [address] [address] Aurelio Leavitt Urea nitrogen [Mass/Vol] 14.0 mg/dL Normal 7.0-18.0 [facility] Comment on above: Performed By: #### H ANANDA, CMP #### [facility] [address] [address] [address] Aurelio Leavitt Urea nitrogen/Creatinine [Mass ratio] 24.6 mg/mg Normal [facility] Comment on above: Performed By: #### H ANANDA, CMP #### [facility] [address] [place] [address] Dr. Aurelio Leavitt TROPONIN, HIGH SENSITIVITYon 11-15-2021 HSTROP 5.3 pg/mL Normal 4.0-51.3 [facility] Comment on above: Result Comment: CUT- OFF POINTS HAVE BEEN ESTABLISHED BASED ON THE FOURTH UNIVERSAL DEFINITIONS OF MYOCARDIAL INFARCTION. THE UPPER REFERENCE LIMIT (URL) OF TROPONIN, DEFINED THE 99TH PERCENTILE OF cTnI DISTRIBUTION IN A REFERENCE POPULATION, HAS BEEN CONFIRMED THE DECISION THRESHOLD FOR MA DIAGNOSIS. Performed By: #### H ANANDA, CMP #### [facility] [address] [place] [address] Dr. Aurelio Leavitt XR CHEST 1 Von [...] by: CORKY PINTO Date: 2021-11-15 01:06 Normal [facility] ALLIED HEALTHon 03-24-2021 ALLIED HEALTH HNO ID: [id number] Author: RT Jb(R) Service: ? Author Type: [...] Telles RT(R) March 24, 2021 6:37 AM Normal [facility] MRI CERVICAL SPINE WO IVCONo n 03-24-2021 MRI CERVICAL SPINE WO IVCON * * *Final Report* * * DATE OF EXAM: Mar 24 2021 6:50AM [facility] 0297 - MRI CERVICAL SPINE WO IVCON [...] is taken as C2-3. Structural anomalies: None. Classroom Assistant: PSCB Transcribe Date/Time: Mar 24 2021 7:36A Dictated by : LITTLE HERNANDEZ MD This examination was interpreted and the report reviewed and electronically signed by: LITTLE HERNANDEZ MD on Mar 24 2021 7:40AM EST [id number] CN [facility] CERVICAL SPINE 2 OR [address] [facility] 12-16-2019 CERVICAL SPINE 2 OR 3 [facility] Department of Radiology [address] [place] [phone] Patient Name: JACQUELYN ZENG : 1975 Sex: F Age: Race: White Pt. Location: Patient Status: O Ordered Date: 12/16/2019 10:10:00 AM Completed Date: 12/16/2019 10:20 AM Requesting Provider: BENJAMIN CUMMINS Attending Provider: BENJAMIN CUMMISN Report Copy To: Signs & Symptoms: M54.12 Radiculopathy, cervical region I10 History: [place] Comments: Evaluate Exam: CERVICAL SPINE 2 OR 3 [facility] EXAMINATION: CERVICAL SPINE 2 OR 3 [facility] 12/16/2019 10:20 AM CLINICAL HISTORY: M54.12 Radiculopathy, [...] identified. Electronically signed: Sha Gross. Transcribed by: [email or web address], User Resident: Electronically Signed by: SHA GROSS @ 12/16/2019 11:44 AM Normal [facility] Comment on above: Order Comment: Evalu ate MRI KNEE WO CONTRAST LEFTon 12-07-2019 MRI KNEE WO CONTRAST LEFT [facility] Department of Radiology [address] [place] [phone] Patient Name: JACQUELYN ZENG : 1975 Sex: F Age: Race: White Pt. Location: Patient Status: Ordered Date: 11/30/2019 1:55:00 PM Completed Date: 12/07/2019 08:52 AM Requesting Provider: BENJAMIN CUMMINS Attending Provider: Report Copy To: Signs & Symptoms: M25.569 Pain in unspecified knee I10 History: [place], PHONE:[phone],* NEEDS ORTHO F/U APPT. NO METAL Workers comp is approved with this diagnosis, cannot change it. [facility] Approved for CPT 60768 Claim#[id number] Valid 11/27/19-12/11/19 12/01/19 *SLA Comments: Please Evaluate [...] knee. Electronically signed: Michael Thayer. Transcribed by: [email or web address], User Resident: Electronically Signed by: MICHAEL THAYER @ 12/07/2019 11:04 AM Normal [facility] Comment on above: Order Comment: [place] e Evaluate MRI SHOULDER WO CONTRAST LEF Ton 12-07-2019 MRI SHOULDER WO CONTRAST LEFT [facility] Department of Radiology [address] [place] [phone] Patient Name: JACQUELYN ZENG : 1975 Sex: F Age: Race: White Pt. Location: 84 Patient Status: Ordered Date: 11/30/2019 1:55:00 PM Completed Date: 12/07/2019 08:51 AM Requesting Provider: BENJAMIN CUMMINS Attending Provider: Report Copy To: Signs & Symptoms: M25.512 Pain in left shoulder I10 History: [place], PHONE:[phone],* NEEDS ORTHO F/U APPT. NO METAL [facility] Approved for CPT 54364 Claim#[id number] Valid 11/27/19-12/11/19 12/01/19 *SLA Comments: Please Evaluate [...] ligament. Electronically signed: Michael Thayer. Transcribed by: [email or web address], User Resident: Electronically Signed by: MICHAEL THAYER @ 12/07/2019 10:56 AM Normal [facility] Comment on above: Order Comment: Ya e Evaluate KNEE LEFT 4VWSon 10-21-2019 KNEE LEFT 4VWS [facility] Department of Radiology [address] [place] [phone] Patient Name: JACQUELYN ZENG : 1975 Sex: F Age: Race: White Pt. Location: Patient Status: Ordered Date: 10/21/2019 9:50:00 AM Completed Date: 10/21/2019 10:05 AM Requesting Provider: BENJAMIN CUMMINS Attending Provider: Report Copy To: Signs & Symptoms: M25.569 Pain in unspecified knee I10 History: [place] Comments: Views (X-RAY, KNEE): AP, Lateral, Tunnel, [place] , Weight Bearing?: Y Exam: KNEE LEFT 4VWS KNEE LEFT 4VWS 10/21/2019 10:05 AM CLINICAL INDICATIONS: M25.569 Pain in unspecified knee I10 left knee pain, recent falls and injury TECHNOLOGIST COMMENTS: Patient complains of left knee pain. Patient states history of several recent falls. QUESTION FOR THE RADIOLOGIST: Views (X-RAY, KNEE): AP, Lateral, Tunnel, [place] , Weight Bearing?: Y PROTOCOL: AP,Lateral,Tunnel and Tangential views were obtained. COMPARISON: None FINDINGS: There is no joint effusion fracture or dislocation. Mineralization and alignment is within normal limits. Mild lateral patellar tilt. Mild early marginal osteophyte formation. IMPRESSION: Early marginal osteophyte formation without acute ossific normality. Electronically signed: Jessica Garcia. Transcribed by: [email or web address], User Resident: Electronically Signed by: JESSICA GARCIA @ 10/21/2019 11:11 AM Normal [facility] Comment on above: Order Comment: Views (X-RAY, KNEE): AP, Lateral, Tunnel, [place] , Weight Bearing?: Y SHOULDER LEFTon 10-21-2019 SHOULDER LEFT [facility] Department of Radiology [address] [place] [phone] Patient Name: JACQUELYN ZENG : 1975 Sex: F Age: Race: White Pt. Location: 84 Patient Status: Ordered Date: 10/21/2019 9:50:00 AM [...] * Negative radiographs left shoulder Electronically signed: Chepe Espinoza M.D.. Transcribed by: [email or web address], User Resident: Electronically Signed by: CHEPE ESPINOZA @ 10/21/2019 11:59 AM Normal [facility] Comment on above: Order Comment: Views (X-RAY, SHOULDER): AP, [place], Y-Lateral, [place] POC STREP SCREENon 9 STREP POC Negative Normal NEG [facility] Comment on above: Result Comment: Perf ormed in Emergency Department. Performed By: #### 3 0211 #### [facility] [address] Vital Signs Date Time Vital Sign Value Performing Clinician Facility 06-20-2023 14:12-0500 Body height 175.3 cm Josh Ochoa MD Work Phone: [facility] 06-20-2023 14:12-0500 Body mass index (BMI) [Ratio] 37.07 kg/m2 Josh Ochoa MD Work Phone: [facility] 06-20-2023 14:12-0500 Body temperature 97.11 [degF] Josh Ochoa MD Work Phone: [facility] 06-20-2023 14:12-0500 Body weight 113.85 kg Josh Ochoa MD Work Phone: [facility] 06-20-2023 14:12-0500 Diastolic blood pressure 78 mm[Hg] Josh Ochoa MD Work Phone: [facility] 06-20-2023 14:12-0500 Heart rate 100 /min Josh Ochoa MD Work Phone: [facility] 06-20-2023 14:12-0500 SaO2% (BldA) [Mass fraction] 96 % Josh Ochoa MD Work Phone: [facility] 06-20-2023 14:12-0500 Systolic blood pressure 140 mm[Hg] Josh Ochoa MD Work Phone: [facility] 01-02-2023 08:39-0400 Diastolic blood pressure 76 mm[Hg] Kinga Froimson TAFE LECTURER.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 Work Phone: [facility] 01-02-2023 08:39-0400 Heart rate 97 /min Kinga Froimson TAFE LECTURER.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 Work Phone: [facility] 01-02-2023 08:39-0400 Systolic blood pressure 127 mm[Hg] Kinga Froimson TAFE 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.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 Work Phone: [facility] 09-06-2022 16:05-0400 Diastolic blood pressure 81 mm[Hg] MD Josh Ochoa Work Phone: [facility] 09-06-2022 16:05-0400 Heart rate 78 /min MD Josh Ochoa Work Phone: [facility] 09-06-2022 16:05-0400 Respiratory rate 16 /min MD Josh Ochoa Work Phone: [facility] 09-06-2022 16:05-0400 SaO2% (BldA) [Mass fraction] 93 % MD Josh Ochoa Work Phone: [facility] 09-06-2022 16:05-0400 Systolic blood pressure 129 mm[Hg] MD Josh Ochoa Work Phone: [facility] 09-06-2022 15:35-0400 Body temperature 98.4 [degF] MD Josh Ochoa Work Phone: [facility] 09-06-2022 15:05-0400 Inhaled oxygen flow rate 8 L/min MD Josh Ochoa Work Phone: [facility] 09-06-2022 13:23-0400 Body height 175.26 cm MD Josh Ochoa Work Phone: [facility] 09-06-2022 13:23-0400 Body mass index (BMI) [Ratio] 33.2 kg/m2 MD Josh Ochoa Work Phone: [facility] 09-06-2022 13:23-0400 Body weight 102.05 kg MD Josh Ochoa Work Phone: [facility] 04-17-2022 10:11-0500 Body height 175.3 cm Kinga Froimson TAFE LECTURER.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 Work Phone: [facility] 04-17-2022 10:11-0500 Body weight 91.63 kg Kinga Froimson TAFE LECTURER.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 Work Phone: [facility] 04-17-2022 10:11-0500 Diastolic blood pressure 76 mm[Hg] Kinga Froimson TAFE LECTURER.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 Work Phone: [facility] 04-17-2022 10:11-0500 Heart rate 103 /min Kinga Froimson TAFE LECTURER.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 Work Phone: [facility] 04-17-2022 10:11-0500 Systolic blood pressure 131 mm[Hg] Kinga Froimson TAFE LECTURER.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 Work Phone: [facility] 01-09-2022 15:11-0400 Body height 175.3 cm Kinga Froimson TAFE LECTURER.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 Work Phone: [facility] 01-09-2022 15:11-0400 Body weight 97.07 kg Kinga Froimson TAFE LECTURER.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 Work Phone: [facility] 01-09-2022 15:11-0400 Diastolic blood pressure 74 mm[Hg] Kinga Froimson TAFE LECTURER.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 Work Phone: [facility] 01-09-2022 15:11-0400 Heart rate 92 /min Kinga Froimson TAFE LECTURER.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 Work Phone: [facility] 01-09-2022 15:11-0400 Respiratory rate 22 /min Kinga Froimson TAFE LECTURER.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 Work Phone: [facility] 01-09-2022 15:11-0400 Systolic blood pressure 137 mm[Hg] Kinga Froimson TAFE LECTURER.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 Work Phone: [facility] 12-31-2021 13:00-0400 Body height 170.18 cm Vianney Collins Other [employer] Other 12-31-2021 13:00-0400 Body mass index (BMI) [Ratio] 33.51 kg/m2 Vianney Collins Other [employer] Other 12-31-2021 13:00-0400 Body temperature 97.5 [degF] Vianney Collins Other [employer] Other 12-31-2021 13:00-0400 Body weight 97.07 kg Vianney Collins Other [employer] Other 12-31-2021 13:00-0400 Diastolic blood pressure 70 mm[Hg] Vianney Collins Other [employer] Other 12-31-2021 13:00-0400 Respiratory rate 18 /min Vianney Collins Other [employer] Other 12-31-2021 13:00-0400 SaO2% (BldA) [Mass fraction] 97 % Vianney Collins Other [employer] Other 12-31-2021 13:00-0400 Systolic blood pressure 122 mm[Hg] Vianney Collins Other [employer] Other 12-09-2021 10:10-0400 Body height Chanel Ji Other [employer] Other 12-09-2021 10:10-0400 Body mass index (BMI) [Ratio] 33.67 kg/m2 Chanel Workman Other [employer] Other 12-09-2021 10:10-0400 Body temperature 98 [degF] Chanel Workman Other [employer] Other 12-09-2021 10:10-0400 Body weight 97.52 kg Chanel Workman Other [employer] Other 12-09-2021 10:10-0400 Diastolic blood pressure 79 mm[Hg] Chanel Workman Other [employer] Other 12-09-2021 10:10-0400 Respiratory rate 20 /min Chanel Workman Other [employer] Other 12-09-2021 10:10-0400 SaO2% (BldA) [Mass fraction] 94 % Chanel Workman Other [employer] Other 12-09-2021 10:10-0400 Systolic blood pressure 132 mm[Hg] Chanel Workman Other [employer] Other Encounters Encounter Date Encounter Type Care Provider Facility Start: 01-23-2024 End: 01-23-2024 ambulatory DC L JACKSON Not Available Start: 01-15-2024 End: 01-15-2024 ambulatory PHILIP PFEIFFER Facility:[facility] Start: 12-26-2023 End: 12-26-2023 ambulatory DC L JACKSON Not Available Start: 12-13-2023 End: 12-13-2023 ambulatory JOSH OCHOA Not Available Start: 12-02-2023 End: 12-02-2023 ambulatory DC L JACKSON Not Available Start: 11-20-2023 End: 11-20-2023 ambulatory SARA Nydia KRAMER Not Available Start: 11-05-2023 End: 11-05-2023 ambulatory DC L JACKSON Not Available Start: 10-11-2023 End: 10-11-2023 ambulatory OLU ARCE Not Available Start: 10-08-2023 Telephone encounter Kinga mae APRN.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 Work Phone: Neurology Comment on above: Patient Question Start: 10-08-2023 End: 10-08-2023 ambulatory DC L JACKSON Not Available Start: 09-03-2023 End: 09-03-2023 ambulatory DC L JACKSON Not Available Start: 08-29-2023 End: 08-29-2023 ambulatory SARA Nydia NEUMANNIANI Not Available Start: 08-12-2023 End: 08-12-2023 ambulatory DC L JACKSON Not Available Start: 08-01-2023 End: 08-01-2023 ambulatory OLU ARCE Not Available Start: 07-29-2023 End: 07-29-2023 ambulatory [facility] Start: 07-24-2023 End: 07-24-2023 ambulatory Elmo Solano Facility:[facility] Start: 07-22-2023 End: 07-22-2023 ambulatory DC Cam JACKSON Not Available Start: 07-15-2023 End: 07-15-2023 ambulatory JOSH OCHOA Not Available Start: 07-02-2023 End: 07-02-2023 ambulatory SARA KRAMER Not Available Start: 07-01-2023 End: 07-01-2023 ambulatory DC JACKSON Not Available Start: 06-22-2023 Clinisync Result Encounter Josh Ochoa MD Work Phone: [facility] Unsolicited Start: 06-22-2023 Clinisync Result Encounter Josh Ochoa MD Work Phone: [facility] External [facility] Unsolicited Start: 06-21-2023 Refill Josh Petersen Work Phone: [facility] Comment on above: Generalized anxiety disorder (CMS/HCC) Start: 06-20-2023 End: 06-20-2023 Office outpatient visit 25 minutes Josh Ochoa MD Work Phone: [facility] Comment on above: Type 2 diabetes neli itus with hyperglycemia, with long-term current use of insulin (CMS/HCC) (Primary Dx); Benign essential HTN (CMS/HCC); ADD (attention deficit disorder) without hyperactivity; MDD (major depressive disorder), recurrent episode, mild (HCC) (CMS/HCC); Generalized anxiety disorder (CMS/HCC); Mild intermittent asthma without complication (CMS/HCC); Complex regional pain syndrome type 1, affecting unspecified site; Mixed hyperlipidemia (CMS/HCC); senior care (current) use of insulin (Z79.4) Start: 06-20-2023 Bamboo flowsheet Josh Ochoa MD Work Phone: [facility] Start: 06-20-2023 Bambogerald flowsheet Josh Ochoa MD Work Phone: [facility] Start: 06-20-2023 End: 06-20-2023 ambulatory JOSH OCHOA Not Available Start: 06-10-2023 End: 06-10-2023 ambulatory DC L JACKSON Not Available Start: 06-05-2023 End: 06-05-2023 ambulatory OLU ARCE Not Available Start: 05-17-2023 End: 05-17-2023 ambulatory KINGA MENDES Facility:[facility] Start: 05-16-2023 End: 05-16-2023 ambulatory DC L JACKSON Not Available Start: 05-15-2023 End: 05-15-2023 ambulatory JOSE FRANCISCO Virgen [facility] Start: 05-14-2023 End: 05-14-2023 ambulatory GERTRUDE CONNOLLY Not Available Start: 04-18-2023 End: 04-18-2023 ambulatory Elmo Solano Facility:[facility] Start: 04-15-2023 End: 04-15-2023 ambulatory DC L JACKSON Not Available Start: 04-01-2023 End: 04-01-2023 ambulatory SARA KRAMER Not Available Start: 03-25-2023 Telephone encounter Kinga mae APRN.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 Work Phone: Otolaryngology Comment on above: Appointment Start: 03-07-2023 End: 03-07-2023 ambulatory JOSE FRANCISCO MARR [facility] Start: 03-01-2023 End: 03-01-2023 ambulatory MEG STEINBERG [facility] Start: 01-02-2023 End: 01-02-2023 ambulatory JOSH OCHOA Facility:[facility] Start: 01-02-2023 End: 01-02-2023 Patient encounter procedure 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 APRN.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 Work Phone: Neurology Comment on above: Intractable chronic migraine without aura and without status migrainosus (Primary Dx); Chronic daily headache Start: 10-10-2022 End: 10-10-2022 Patient encounter procedure 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 TAFE LECTURER.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 Work Phone: Neurology Comment on above: Intractable chronic migraine without aura and without status migrainosus (Primary Dx); Chronic daily headache Start: 09-06-2022 End: 09-06-2022 Admission to same day surgery center MD Josh Ochoa Work Phone: [facility] [place] Start: 09-06-2022 End: 09-06-2022 ambulatory MD Josh Ochoa Work Phone: [facility] Work Phone: Start: 08-28-2022 End: 08-29-[address] BARTOLOME RODRIGUEZ Facility:[facility] Start: 08-27-2022 End: 08-27-2022 ambulatory Lee Chowdary Facility:[facility] Start: 08-27-2022 End: 08-27-2022 ambulatory MD Josh Ochoa Work Phone: [facility] Work Phone: Start: 08-27-2022 End: 08-27-2022 Patient encounter procedure MD Josh Ochoa Work Phone: [facility] Work Phone: Start: 08-01-[address]OSH OCHOA [facility] ity:[facility] Start: 07-30-2022 Encounter for genera l adult medical examination without abnormal findings DR JOSH OCHOA [facility] Start: 07-24-2022 End: 07-25-[address] JOSH OCHOA Facility:[facility] Start: 07-24-2022 End: 07-25-2022 Encounter for general adult medical examination without abnormal findings DR JOSH OCHOA Facility:[facility] Start: 07-17-2022 Telephone encounter Kinga mae APRN.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 Work Phone: Otolaryngology Comment on above: Referral Request Start: 07-17-2022 End: 07-17-2022 Patient encounter procedure 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 APRN.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 Work Phone: Neurology Comment on above: Intractable chronic migraine without aura and without status migrainosus (Primary Dx) Start: 07-10-2022 End: 07-11-[address] AVINASH SERRATO Facility:[facility] Start: 06-26-2022 End: 06-27-[address] AVINASH SERRATO Facility:[facility] Start: 04-17-2022 End: 04-17-2022 Patient encounter procedure 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 TAFE LECTURER.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 Work Phone: Neurology Comment on above: Intractable chronic migraine without aura and without status migrainosus (Primary Dx) Start: 03-29-2022 End: 03-29-2022 ambulatory Marie Elias Facility:[facility] Start: 03-29-2022 End: 03-29-2022 ambulatory MD Josh Ochoa Work Phone: [facility] Work Phone: Start: 03-29-2022 End: 03-29-2022 Patient encounter procedure MD Josh Ochoa Work Phone: [facility] Start: 03-29-2022 End: 03-29-2022 ambulatory MARIE ELIAS Facility:[facility] Start: 03-28-2022 End: 03-29-[address] JOSH OCHOA Facility:[facility] Start: 01-09-2022 End: 01-09-2022 Patient encounter procedure 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 RASHAD.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 Work Phone: Neurology Comment on above: Intractable chronic migraine without aura and without status migrainosus (Primary Dx) Start: 12-31-2021 End: 12-31-2021 ambulatory Vianney Collins Other [employer] Other Start: 12-31-2021 Office outpatient vi sit 25 minutes Vianney Collins [facility] Start: 12-13-2021 End: 12-14-[address] JOSH OCHOA Facility:[facility] Start: 12-09-2021 End: 07-30-2022 ambulatory Chanel Workman Other [facility] [employer] Other Start: 12-09-2021 Office outpatient vi sit 15 minutes Chanel Workman [facility] Start: 11-15-2021 End: 11-15-[address] MEG TIDWELL . Facility: Start: 09-08-2021 Telephone encounter Kinga mae APRN.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 Work Phone: Neurology Comment on above: Referral Request Start: 01-12-2020 End: 01-27-2020 Patient encounter procedure BENJAMIN EBRAHEIM Facility:[facility] Start: 12-07-2019 End: 12-08-2019 Patient encounter procedure BENJAMIN EBRAHEIM Facility:[facility] Start: 10-21-2019 End: 10-22-2019 Patient encounter procedure BENJAMIN EBRAHEIM Facility:[facility] Start: 02-18-2019 End: 02-18-2019 Emergency department patient visit CHONG CARRERO Facility:[facility] Procedures Date Procedure Procedure Detail Performing Clinician [...] 09-07-2021 Adult depression screening assessment 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 APRN.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 Work Phone: Start: 07-11-2020 Microscopic observat ion [Identifier] in Cervix by Cyto stain Josh Ochoa MD Work Phone: Plan of Treatment Date Care Activity Detail Author Start: 10-05-2025 DIABETES SCREEN DIABETES SCREEN [facility]v [facility] Start: 10-05-2025 Diabetes Screening Diabetes Screenin g [facility] Start: 07-11-2025 Screening for malign ant neoplasm of cervix [facility] Start: 02-27-2024 Medicare Annual Well ness (AWV) Medicare Annual Wellness (AWV) [facility] Start: 08-29-2023 Screening for malign ant neoplasm of breast [facility] Start: 08-01-2023 End: 08-01-2023 Clinical Support 08/01/2023 1:40 PM EDT Clinical Support [facility] [address] [place] [phone] Olu Arce MD [address] Chen [address] [place] [address] [facility] Start: 07-15-2023 End: 07-15-2023 Patient encounter procedure 07/15/2023 8:15 AM EST [facility] [address] [place] [address] Josh Ochoa MD [address] [place] [address] [facility] Start: 07-02-2023 End: 07-02-2023 Patient encounter procedure 07/02/2023 12:00 PM EST Office Visit [facility] [address] [place] [phone] Sara Kramer NP [address] [place] [address] [facility] 210 Start: 07-01-2023 End: 07-01-2023 Social Work 07/01/2023 10:00 AM EST Social Work [facility] [address] [place] [address] Dc Jackson, [facility] [address] [place] [address] [facility] Start: 06-20-2023 End: 06-20-2023 Patient encounter procedure 06/20/2023 2:15 PM EST Office Visit [facility] [address] [place] [phone] Josh Ochoa MD [address] [place] [phone] Arrived [facility] Comment on above: Arrived Start: 06-20-2023 End: 06-20-2024 Albumin, urine, random Albumin, urine, random Lab Routine Type 2 diabetes mellitus with hyperglycemia, with long-term current use of insulin ([facility]) Expected: 06/20/2023 (Approximate), Expires: 06/20/2024 [facility] Comment on above: Expected: 06/20/2023 (Approximate), Expires: 06/20/2024 Start: 06-20-2023 End: 06-20-2024 Hemoglobin A1c measurement Hemoglobin A1c Lab Routine Type 2 diabetes mellitus with hyperglycemia, with long-term current use of insulin (CMS/HCC) Expected: 06/20/2023 (Approximate), Expires: 06/20/2024 [facility] Work Phone: Comment on above: Expected: 06/20/2023 (Approximate), Expires: 06/20/2024 Start: 05-13-2023 Behavioral Health Screening Behavioral Health Screening [facility] Start: 01-11-2023 Covid-19 Vaccine ( season) Covid-19 Vaccine ( season) [facility] Start: 01-11-2023 Influenza vaccination [facility] Start: 09-07-2022 Adult depression screening assessment DEPRESSION SCREENING [facility] Start: 09-06-2022 [facility] Start: 09-06-2022 [facility] Start: 05-13-2022 DEPRESSION ASSESSMENT DEPRESSION ASS ESSMENT [facility] Start: 01-11-2022 Influenza vaccination C [facility] Start: 05-13-2021 DEPRESSION ASSESSMENT DEPRESSION ASS ESSMENT [facility] Start: 05-01-2021 COVID-19 VACCINE (3 - Booster for Moderna series) COVID-19 VACCINE (3 - Booster for Moderna series) [facility] Start: 01-24-2021 COVID-19 VACCINE (3 - Booster for Moderna series) COVID-19 VACCINE (3 - Booster for Moderna series) [facility] Start: 01-24-2021 COVID-19 VACCINE (3 - Moderna series) COVID-19 VACCINE (3 - Moderna series) [facility] Start: 09-01-2019 COLOGUARD (FIT-DNA) COLOGUARD (FIT-D NA) [facility] Start: 09-01-2019 Colonoscopy COLONOSCOPY [facility] Start: 09-01-2019 COLORECTAL CANCER SCREENING COLORECTAL CANCER SCREENING [facility] Start: 09-01-[address] COLONOGRAPHY [facility] Start: 09-01-2019 DIABETES SCREEN DIABETES SCREEN [facility] Start: 09-01-2019 FECAL OCCULT BLOOD FECAL OCCULT BLOO D [facility] Start: 09-01-2019 Lipid 1996 panel - S sophia or Plasma Lipid Screening [facility] Start: 09-01-2019 Lipid panel Lipid Screening [facility] Start: 09-01-2019 LIPID SCREEN LIPID SCREEN [facility] Start: 09-01-2019 Screening for malign ant neoplasm of colon [facility] Start: 09-01-2019 SIGMOIDOSCOPY SIGMOIDOSCOPY [facility] Start: 2014 Mammography [facility] Start: 2004 HPV TESTING HPV TESTING [facility] Start: 2004 Screening for malign ant neoplasm of cervix HPV Testing [facility] Start: 2004 Zoledronic acid therapy ALPHA- 1 ANTITRYPSIN DEFICIENCY SCREENING [facility] Start: 09-01-1995 PAP TESTING PAP TESTING [facility] Start: 09-01-1995 Screening for malign ant neoplasm of cervix Pap Testing [facility] Start: 1993 Hepatitis B Vaccine (1 of 3 - 19+ 3-dose series) Hepatitis B Vaccine (1 of 3 - 19+ 3-dose series) [facility] Start: 1993 Urine microalbumin profile [facility] Start: 1993 Urine screening for protein Diabetes: Urine Protein Screening [facility] Start: 1992 ANNUAL PCP TEAM OYSTER CULTIVATOR SILVANO DISEASE VISIT ANNUAL PCP TEAM CHRONIC DISEASE VISIT [facility] Start: 1992 HEPATITIS C SCREENING HEPATITIS C [facility] Start: 1992 Hepatitis C screening Hepatitis C [facility] Start: 1992 HIV SCREENING HIV SCREENING [facility] Start: 1992 HIV screening HIV Screening [facility] Start: 1992 SPIROMETRY SPIROMETRY [facility] Start: 1984 Glaucoma screening Diabetes: R etinopathy Screening [facility] Start: 1980 PNEUMOCOCCAL (1 - PCV) PNEUMOCOCCAL (1 - PCV) [facility] Start: 1980 Pneumococcal vaccination Pneum ococcal Vaccine (1 - PCV) [facility] Start: 1974 Hemoglobin A1c measurement Diabetes: Hemoglobin A1C [facility] Start: 1974 HEPATITIS B (1 of 3 - 3-dose series) HEPATITIS B (1 of 3 - 3-dose series) [facility] Start: 1974 Hepatitis B Vaccine (1 of 3 - 3-dose series) Hepatitis B Vaccine (1 of 3 - 3-dose series) [facility] Patient Education [facility] Work Phone: Patient referral [facility] Work Phone: [facility] Immunizations Immunization Date Immunization Notes Care Provider Fa cili 11-29-2020 COVID-19 mRNA-1273 (Neal) MD Josh Ochoa Work Phone: [facility] 11-01-2020 COVID-19 mRNA-1273 (Neal) MD Josh Ochoa Work Phone: [facility] Payers Date Payer Category Payer Unknown [id number] 2023 Medicare [id number] 2022 Unknown [id number] 2022 Self-pay [id number] 2021 Private Health Insurance [id number] 2019 Medicare [id number] [id number]. [id number] 2018 Unknown MMO MMO [employer] [id number] 2018-Present [phone] [address] [place] [address] O [id number] 1.2.840.465597.1.13.159.2. 7.3.941400.315 2016 Unknown [id number]. 1.13.159.2. 7.3.350870.315 2016 Unknown [id number] 1974 Unknown [id number] 2.16.840.1.415779.3.579.2. 647 1974 Unknown [id number] 2.16.840.1.986884.3.579.2. 647 1974 Unknown [id number] 2.16.840.1.114438.3.579.2. 647 1974 Unknown [id number] 2.16.840.1.933229.3.579.2. 647 1974 Unknown [id number] 2.16.840.1.065009.3.579.2. 593 1974 Unknown [id number] 2.16.840.1.764175.3.579.2. 593 1974 Unknown [id number] 2.16.840.1.017105.3.579.2. 593 1974 Unknown [id number] 2.16.840.1.993026.3.579.2. 593 1974 Unknown [id number] 2.16.840.1.273945.3.579.2. 593 1974 Unknown [id number] 2.16.840.1.723266.3.579.2. 593 1974 Unknown [id number] 2.16.840.1.058872.3.579.2. 593 1974 Unknown [id number] 2.16.840.1.438854.3.579.2. 593 1974 Unknown [id number] 2.16840.1.150104.3.579.2. 59 1974 Unknown [id number] 2.16840.1.484554.3.579.2. 1974 Unknown [id number] 2.840.1.634624.3.579.2. 1974 Unknown [id number] 2.16840.1.535103.3.579.2. 1974 Unknown [id number] 2.840.1.596684.3.579.2. 1258 1974 Unknown [id number] 2.840.1.628935.3.579.2. 1258 1974 Unknown [id number] 2.840.1.780901.3.579.2. 1258 1974 Unknown [id number] 2.840.1.223789.3.579.2. 1258 1974 Unknown [id number] 2.840.1.203858.3.579.2. 1258 1974 Unknown [id number] 2.840.1.110567.3.579.2. 1258 1974 Unknown [id number] 2.840.1.754382.3.579.2. 1258 1974 Unknown [id number] 2.16840.1.338794.3.579.2. 1258 1974 Unknown [id number] 2.16840.1.248040.3.579.2. 1258 1974 Unknown [id number] 2.16840.1.621852.3.579.2. 1258 1974 Unknown [id number] 2.16840.1.275311.3.579.2. 1258 1974 Unknown [id number] 2.16.840.1.085138.3.579.2. 1258 1974 Unknown [id number] 2.16.840.1.093036.3.579.2. 1258 1974 Unknown [id number] 2.16.840.1.180616.3.579.2. 1258 1974 Unknown [id number] 2.16.840.1.889921.3.579.2. 1258 1974 Unknown [id number] 2.16.840.1.511153.3.579.2. 1258 1974 Unknown [id number] 2.16.840.1.642858.3.579.2. 1258 1974 Unknown [id number] 2.16.840.1.315681.3.579.2. 1258 1974 Unknown [id number] 2.16.840.1.687011.3.579.2. 1258 1974 Unknown [id number] 2.16.840.1.021242.3.579.2. 1258 1974 Unknown [id number] 2.16.840.1.232881.3.579.2. 1258 1974 Unknown [id number] 2.16.840.1.611591.3.579.2. 1258 1974 Unknown [id number] 2.16.840.1.074271.3.579.2. 9 1959 Medicare [id number] 2.16.840.1.288959.19 1959 Unknown [id number] 1959 Worker's Compensation [id number] Private Health Insurance [facility] Insurance Co [id number] Unknown MMO [id number] Unknown [id number] 2.16.840.1.922873.3.579.2. 531 Unknown [id number] 2.16.840.1.823407.3.579.2. 531 Unknown [id number] 2.16.840.1.092424.3.579.2. 531 Social History Date Type Detail Facility Start: 08-01-2016 End: 01-09-2022 Tobacco smoking status NHIS Smokes tobacco daily [facility] Start: 08-01-2016 End: 10-10-2022 Cigarettes smoked current (pack per day) - Reported 1 [facility] Start: 08-01-2016 End: 01-09-2022 Tobacco use and exposure User of smokeless tobacco [facility] Start: 09-07-2021 End: 05-17-2023 Alcohol intake Current non-drinker of alcohol (finding) [facility] Start: 1975 Sex Assigned At Not on file C [facility] Start: 08-28-2021 End: 01-09-2022 Exposure to SARS-CoV-2 (event) Not sure [facility] Start: 10-10-2022 End: 01-02-2023 Sex Assigned At [facility] History of tobacco use Cigarette Smoker C [facility] Work Phone: Start: 04-27-2019 Tobacco smoking stat us NEIS Smoker (finding) [facility] Start: 1975 Sex Assigned At Female F [facility] Start: 08-27-2022 End: 06-17-2023 Tobacco smoking status NEIS Ex-smoker (finding) [facility] Adult Depression Screening Assessment 4 [facility] Start: 06-17-2023 Tobacco use and exposure Smokeless tobacco non-user [facility] Start: 06-17-2023 End: 06-20-2023 Alcohol intake Lifetime non-drinker (finding) [facility] Start: 05-14-2023 Alcohol Comment caffeine intak e: maybe 1 coffee or pop cups per day [facility] Medical Equipment Procedure Code Equipment Code Equipment Origin al Text Equipment Identifier Dates [id number], [id number] Start: 10-09-2019 End: 01-02-2023 Comment on above: use test strip to te st BLOOD SUGAR FOUR TIMES DAILY use with insulin FOU R TIMES DAILY Goals Date Patient Goal Desired Activity /State Clinical Notes 04-24-2005 to 01-15-2024 Telephone Encounter - Lien Robertson - 10/09/2023 2:40 PM EDTTelephone Encounter - Lien Robertson - 10/09/2023 2:40 PM EDTTelephone Encounter - Tiffany Boyer - 10/08/2023 2:38 PM EDT Note Date & Type Note Facility 01-15-2024 Note Patient Education Ma terials Follows: [facility] 10-09-2023 Telephone encounter Note Sent message to [facility] team to follow up on status and to see if we can schedule. [facility] 10-09-2023 Miscellaneous Notes Sent message to [facility] team to follow up on status [...] a specialty pharmacy -No Botox is through [facility] and her appointment had to be rescheduled in August. Last Office Visit: 05/17/23 with Fred Next scheduled appointment: Not scheduled. Best number to reach caller: [phone] Best time to reach caller: between 11-2:30 pm Is it OK to leave a detailed voice message? Yes Tiffany Boyer documented in this encounter [facility] 10-08-2023 Telephone encounter Note Call received for 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 APRN.CNP regarding Jacquelyn Zeng 1975. Caller: Self Patient Identified by Name and : Yes Was permission obtained from patient ? Yes Reason for Call: Botox Referral New Referral Needed ? Yes Have you contacted our registration department with you most recent insurance information ? Yes- Are you ordering through a specialty pharmacy -No Botox is through [facility] and her appointment had to be rescheduled in August. Last Office Visit: 05/17/23 with Fred Next scheduled appointment: Not scheduled. Best number to reach caller: [phone] Best time to reach caller: between 11-2:30 pm Is it OK to leave a detailed voice message? Yes Tiffany Boyer [facility] 07-29-2023 Note [place] [facility] - [facility] Subjective Jacquelyn Zeng is a 47 [...] diabetes mellitus (CMS/HCC) Coronary artery disease involving tanana coronary artery of tanana heart without angina pectoris S/P drug eluting [...] Effort: Pulmonary ef (more content not included)... [facility] 07-24-2023 Note Patient Education Ma terials Follows: [facility] 06-20-2023 History of Present illness Narrative [...] hyperglycemia, with long-term current use of insulin ([facility]) Reports BS controlled and due for A1C. Stick to ADA diet and limit carbs. Subjective Patient ID: Jacquelyn Zeng is a 47 y.o. female who presents for Follow[facility] ([facility] F/u DM, HTN, asthma, depression, anxiety, and [...] with long-term current use of insulin (CMS/HCC) - Primary Reports BS controlled and due for A1C. Stick to ADA diet and limit carbs. Relevant Orders Hemoglobin A1c Albumin, urine, random ADD (attention deficit disorder) without hyperactivity Worsening symptoms and try strattera. Relevant Medications atomoxetine (Strattera) 40 MG capsule documented in this encounter [facility] 05-17-2023 Note HNO ID: [id number] Author: KINGA MENDES APRN.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 Service: ? Author Type: Nurse Practitioner Type: [...] for migraine Informed Consent Consent Obtained: Written Gilman Protocol A moment to CARE was completed [...] applicable Written Consent Obtained: Written LOT #: [id number] Expiration Date: Month: 6 Year: 2025 Injection Sites Left (Units) Left (Sites) Right (Units) Right (Sites) TOTAL (Units) Personal Financial Advisor 5 1 5 1 10 Procerus Units: [...] the Counter Medicati (more content not included)... [facility] 05-15-2023 Note REASON FOR VISIT: Jacquelyn Zeng [...] yes Diabetes education: [No] Seen by a certified nursing assistant (CDE) within 12 months Meal plan: [No] Seen by a emergency response officer within 12 months [ ] Consistent carbohydrate [...] satiety [Yes] Feet numbness/pain/tingling [Yes] Patient seeing license distributor/transportation manager regularly [Yes] Patient seeing dentist regularly [No] Patient seeing impregnator and drier helper regularly REVIEW OF SYSTEMS Review of Systems [...] mellitus [Type 2 (more content not included)... [facility] 04-18-2023 Note Patient Education Ma terials Follows: [facility] 03-25-2023 Miscellaneous Notes Summary: 04/09 reschedule [...] Thank you, Raquel documented in this encounter [facility] 03-07-2023 Note REASON FOR VISIT: Jacquelyn Zeng [...] yes Diabetes education: [No] Seen by a certified nursing assistant (CDE) within 12 months Meal plan: [No] Seen by a emergency response officer within 12 months [ ] Consistent carbohydrate [...] satiety [Yes] Feet numbness/pain/tingling [Yes] Patient seeing license distributor/transportation manager regularly [Yes] Patient seeing dentist regularly [No] Patient seeing impregnator and drier helper regularly REVIEW OF SYSTEMS Review of Systems [...] hyperglycemia, with long-term current use of insulin ([facility]) - insulin pump cart,automated,BT (Omnipod 5 G6 Pods, Gen 5,) cartridg (more content not included)... [facility] 03-01-2023 Note Stable [facility] 03-01-2023 Note Coronary artery dise ase is stable Continue GDMT- ASA, plavix, lipitor 80 mg, fenofibrate, imdur, toprol continue risk factor modifications- heart healthy diet, regular exercise as tolerated and continue all medications. [facility] 03-01-2023 Note Lipid abnormalities are not much improved and d/w pt about initiation of Leqvio for better HPL management of Chol, Trig and LDL in light of CAD, DM and she voiced agreement. In light of h/o pancreatitis she is not a candidate for Vascepa. [facility] 03-01-2023 Note Patient here for 3 m o follow up CAD, hypertension, and hyperlipidemia. Had lipid profile last week. Says chest pain and SOB has resolved. Energy level has improved also. She's feeling better. Insurance switched her from [employer] to [employer]. Review of Systems Cardiovascular: Positive for palpitations. Musculoskeletal: Positive for arthritis, back pain, joint pain and myalgias. All other systems reviewed and are negative. [facility] 03-01-2023 Note [facility] CARDIOLOGY PROGR ESS NOTE HPI: Jacquelyn Zeng is a 47 y.o. female here for CAD, HTN, and HPL Patient here for 3 mo follow up CAD, hypertension, and hyperlipidemia. Had lipid profile last week. Says chest pain and SOB has resolved. Energy level has improved also. She's feeling better. Insurance switched her from [employer] to [employer]. States she has been exercising on a [...] 1 tablet by mouth in the morning. direcg-rsjmksrn-bcfdvmp (Zenpep) 40,000-126,000- 168,000 unit capsule,delayed release(DR/EC) Zenpep [...] 2.5 mg/3 mL (more content not included)... [facility] 01-02-2023 Instructions 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 APRN.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 - 01/02/2023 9:10 AM EDT Instruction after [...] it does not, call our office at [phone] for further instructions. documented in this encounter [facility] 01-02-2023 Note HNO ID: [id number] Author: 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 APRN.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 Service: ? Author Type: Nurse Practitioner Type: [...] for migraine Informed Consent Consent Obtained: Written Gilman Protocol A moment to CARE was completed SIGN IN Personnel directly involved with the proce (more content not included)... [facility] 01-02-2023 Procedure note Headache Center Follow-up Visit [...] days/month: 0 (0 headache-free hours) Migraine severity: 10 After treatment with Onabotulinum Toxin A: Number of moderate-severe migraine days/month: 10 Number of mild migraine days/month: 20 Number of headache free days/month: 0 (0 headache-free hours) Migraine severity: 10 Patient reduction in overall migraine days: No [...] for migraine Informed Consent Consent Obtained: Written Gilman Protocol A moment to CARE was completed [...] applicable Written Consent Obtained: Written LOT #: [id number] Expiration Date: Month: 2 Year: 2025 Injection Sites Left (Units) Left (Sites) Right (Units) Right (Sites) TOTAL (Units) Personal Financial Advisor 5 1 5 1 10 Procerus Units: [...] Over the Counter Medications Acetaminophen (Tylenol) Kinga Meneds APRN.MICHELLE documented in this encounter [facility] 10-10-2022 Instructions 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 APRN.MICHELLE - 10/10/2022 9:31 AM EDT Instruction after [...] it does not, call our office at [phone] for further instructions. documented in this encounter [facility] 10-10-2022 Procedure note Headache Center Follow-up Visit [...] for migraine Informed Consent Consent Obtained: Written Gilman Protocol A moment to CARE was completed [...] applicable Written Consent Obtained: Written LOT #: [id number] Expiration Date: Month: 12 Year: 2024 Injection Sites Left (Units) Left (Sites) Right (Units) Right (Sites) TOTAL (Units) Personal Financial Advisor 5 1 5 1 10 Procerus Units: [...] 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 APRN.CNP documented in this encounter [facility] 07-17-2022 Instructions 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 [...] it does not, call our office at [phone] for further instructions. documented in this encounter [facility] 07-17-2022 Miscellaneous Notes Botox referral sent to pharmacy. [facility] Brianne Hernandez RN Jacquelyn Zeng is calling 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 APRN.CNP today to request botox referral. No chief complaint on file. Patient has been identified by name and birthdate. Duration of symptoms: N/A Person calling: self Call patient at: on cell [phone] (home) [phone] (cell) Was an appointment scheduled: No Closing statement: Symptom Call: Thank you for calling [facility], your call is very important. A nurse will call in approximately 2-4 hours during business hours. If this is an emergency, please contact 911. Brielle Pressley documented in this encounter [facility] 07-17-2022 Procedure note Headache Center Follow-up Visit [...] for migraine Informed Consent Consent Obtained: Written Gilman Protocol A moment to CARE was completed [...] applicable Written Consent Obtained: Written LOT #: [id number] Expiration Date: Month: 5 Year: 2024 Injection Sites Left (Units) Left (Sites) Right (Units) Right (Sites) TOTAL (Units) Personal Financial Advisor 5 1 5 1 10 Procerus Units: [...] 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 APRN.CNP documented in this encounter [facility] 04-17-2022 Instructions 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 APRN.CNP - 04/17/2022 [...] it does not, call our office at [phone] for further instructions. documented in this encounter [facility] 04-17-2022 Procedure note Follow-Up Onabotulinum Toxin A [...] for migraine Informed Consent Consent Obtained: Written Gilman Protocol A moment to CARE was completed [...] (Sites) Right (Units) Right (Sites) TOTAL (Units) Personal Financial Advisor 5 1 5 1 10 Procerus Units: [...] 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 APRN.CNP documented in this encounter [facility] 01-09-2022 Instructions 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 APRN.CNP - 01/09/2022 [...] it does not, call our office at [phone] for further instructions. documented in this encounter [facility] 01-09-2022 Procedure note Follow-Up Onabotulinum Toxin A [...] for migraine Informed Consent Consent Obtained: Written Gilman Protocol A moment to CARE was completed [...] (Sites) Right (Units) Right (Sites) TOTAL (Units) Personal Financial Advisor 5 1 5 1 10 Procerus Units: [...] the Counter Medications Acetaminophen (Tylenol) 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 APRN.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 documented in this encounter [facility] 12-31-2021 Evaluation note Encounter Date Diagnosis Assessment [...] ER for for worsening symptoms or concerns [facility] 07-30-2022 Evaluation note* Encounter Date Diagnosis Assessment Notes Treatment Notes Treatment Clinical Notes Nov, Cellulitis of left earlobe (ICD-10 - H60.12) Discussed diagnosis with patient in detail. Used wireless store manager to remove earing today in office. Instructed [...] understanding and is agreeable to treatment plan [facility] 04-29-2022 Miscellaneous Notes* Telephone Encounter - [...] referral. Thank you! [facility] of Past illness Narrative* Problem Noted Date Resolved Date Migraine without aura, witho ut mention of intractable migraine without mention of status migrainosus 04/24/2005 017 documented as of this encounter (statuses as of 09/08/2021) [facility] History of Past illness Narrative* Problem Noted Date Resolved Date Migraine without aura, witho ut mention of intractable migraine without mention of status migrainosus 04/24/2005 017 documented as of this encounter (statuses as of 01/09/2022) [facility] History of Past illness Narrative* Problem Noted Date Resolved Date Migraine without aura, witho ut mention of intractable migraine without mention of status migrainosus 04/24/2005 017 documented as of this encounter (statuses as of 04/17/2022) [address]13-2005 History of Past illness Narrative* Problem Noted Date Resolved Date Migraine without aura, witho ut mention of intractable migraine without mention of status migrainosus 04/24/2005 017 documented as of this encounter (statuses as of 07/17/2022) [facility] History of Past illness Narrative* Problem Noted Date Resolved Date Migraine without aura, witho ut mention of intractable migraine without mention of status migrainosus 04/24/2005 017 documented as of this encounter (statuses as of 07/17/2022) [facility] History of Past illness Narrative* Problem Noted Date Resolved Date Migraine without aura, witho ut mention of intractable migraine without mention of status migrainosus 04/24/2005 017 documented as of this encounter (statuses as of 10/10/2022) [facility] History of Past illness Narrative* Problem Noted Date Diagnosed Date Resolved Date Migraine without aura, witho ut mention of intractable migraine without mention of status migrainosus 04/24/2005 08/01/2016 documented as of this encounter (statuses as of 01/02/2023) [facility] History of Past illness Narrative* Problem Noted Date Diagnosed Date Resolved Date Migraine without aura, witho ut mention of intractable migraine without mention of status migrainosus 04/24/2005 08/01/2016 documented as of this encounter (statuses as of 03/29/2023) [facility] Diagnosis Intractable chronic migraine without aura and without status migrainosus- Primary Chronic migraine without aura, with intractable migraine, so stated, without mention of status migrainosus [facility]No assessment information availableUniversity [facility] Work Phone: Evaluation note* Diagnosis Intractable chronic migraine without aura and without status migrainosus- Primary Chronic migraine without aura, with intractable migraine, so stated, without mention of status migrainosus [facility]* Diagnosis Intractable chronic migraine without aura and without status migrainosus- Primary Chronic migraine without aura, with intractable migraine, so stated, without mention of status migrainosus [facility] Diagnosis Intractable chronic migraine without aura and without status migrainosus- Primary Chronic migraine without aura, with intractable migraine, so stated, without mention of status migrainosus Chronic daily headache Headache [facility]* Diagnosis Type 2 diabetes mellitus with [...] unspecified site Mixed hyperlipidemia (CMS/HCC) Mixed hyperlipidemia senior care (current) use of insulin (Z79.4) documented in this encounter [facility] HealthcareEvaluation note* Diagnosis Generalized anxiety disorder (CMS/HCC) Generalized anxiety disorder documented in this encounter [facility] HealthcareHistory general Narrative - Reported* Type Description Date Medical History diabetes mellitus Medical History asthma Medical History Asthmatic Bronchitis Medical History fibroids Medical History migraine headaches 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 Medical History OVARIAN CYSTS Surgical History ABLATION Surgical History CHOLECYSTECTOMY Hospitalization History SEE ABOVE SURGERY [facility] Discharge instructions Additional Instructions Avoid trauma to the surgical site.[facility] Work Phone: Summary Purpose Family History [...] section and content) DATE CREATED AUTHOR 01/27/2020 [facility] DATE CREATED AUTHOR AUTHOR'S ORGANIZ ATION 03/25/2021 [facility] DATE CREATED AUTHOR AUTHOR'S ORGANIZ ATION 09/02/2022 [facility] DATE CREATED AUTHOR AUTHOR'S ORGANIZ ATION 10/29/2022 [facility] DATE CREATED AUTHOR AUTHOR'S ORGANIZ ATION 10/13/2023 [facility] DATE CREATED AUTHOR AUTHOR'S ORGANIZ ATION 01/07/2024 [facility] DATE CREATED AUTHOR AUTHOR'S ORGANIZ ATION 01/23/2024 [facility] DATE CREATED AUTHOR AUTHOR'S ORGANIZ ATION 01/25/2024 [facility] d[facility] Specialists [employer] Source Comments (unrecognize d section and content) In the event this informatio n is protected by the Federal Confidentiality of Alcohol and Drug Abuse Patient Records regulations: The Federal rules restrict any use of the information to criminally investigate or prosecute any alcohol or drug abuse patient.[facility] the event this information is protected by the Federal Confidentiality of Alcohol and Drug Abuse Patient Records regulations: The Federal rules restrict any use of the information to criminally investigate or prosecute any alcohol or drug abuse patient.[facility] Center[facility] the event this information is protected by the Federal Confidentiality of Alcohol and Drug Abuse Patient Records regulations: The Federal rules restrict any use of the information to criminally investigate or prosecute any alcohol or drug abuse patient.[facility] CenterIn the event this information is protected by the Federal Confidentiality of Alcohol and Drug Abuse Patient Records regulations: The Federal rules restrict any use of the information to criminally investigate or prosecute any alcohol or drug abuse patient.[facility] CenterIn the event this information is protected by the Federal Confidentiality of Alcohol and Drug Abuse Patient Records regulations: The Federal rules restrict any use of the information to criminally investigate or prosecute any alcohol or drug abuse patient.[facility] CenterIn the event this information is protected by the Federal Confidentiality of Alcohol and Drug Abuse Patient Records regulations: The Federal rules restrict any use of the information to criminally investigate or prosecute any alcohol or drug abuse patient.[facility] CenterIn the event this information is protected by the Federal Confidentiality of Alcohol and Drug Abuse Patient Records regulations: The Federal rules restrict any use of the information to criminally investigate or prosecute any alcohol or drug abuse patient.[facility] CenterIn the event this information is protected by the Federal Confidentiality of Alcohol and Drug Abuse Patient Records regulations: The Federal rules restrict any use of the information to criminally investigate or prosecute any alcohol or drug abuse patient.[facility] CenterIn the event this information is protected by the Federal Confidentiality of Alcohol and Drug Abuse Patient Records regulations: The Federal rules restrict any use of the information to criminally investigate or prosecute any alcohol or drug abuse patient.[facility] Reason for Visit (unrecogniz ed section and content) Reason Comments Botox Injection Specialty Diagnoses / Procedures Referred By Contac t Referred To Contact HEADACHE Diagnoses Chronic migraine without aura, intractable, without status migrainosus Procedures BOTULINUM TOXIN A PER 1 UNIT CHEMODERVATE FACIAL/TRIGEM/CERV MUSC MIGRAINE Renewal due 11/07/2021 Botox 200 units every 12 weeks for 1 year through [facility] [employer] and bill Preempt protocol J0585 Procedure -98377 chemodervate facial/trigem/cerv musc migraine 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, TAFE LECTURER.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 [address] [id number] Neur Headache [address] [place] [address] Referral ID Status Reason Start Date Expiration Date Visits Re quested Visits Authorized [id number] Closed 10/27/2021 04/28/2022 2 2 Reason Comments Referral Request Reason Comments Migraine Referral ID Status Reason Start Date Expiration Date V isits Requested Visits Authorized [id number] Authorized 10/27/2021 04/28/2022 2 2 Specialty Diagnoses / Procedures Referred By Contac t Referred To Contact HEADACHE Diagnoses Chronic migraine without aura, intractable, without status migrainosus Procedures BOTULINUM TOXIN A PER 1 UNIT CHEMODERVATE FACIAL/TRIGEM/CERV MUSC MIGRAINE Renewal - next visit expected on 10/09/22 Botox 200 units every 12 weeks for 1 year through [facility] [employer] and bill Preempt protocol J0585 Procedure -[id number] chemodervate facial/trigem/cerv musc migraine 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, TAFE LECTURER.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 [address] [place] [address] Ne[address] Headache [address] [id number] Referral ID Status Reason Start Date Expiration Date V isits Requested Visits Authorized [id number] Waiting for Response 07/19/2022 09/17/2023 5 5 [...] Active Lee Chowdary MD Attending Provider Active Stroke Program Coordinator Relationship Specialty Start Date End Date Josh Ochoa PCP - General Family Practice 08/01/16 Deja Martins CNP Family Practice 09/17/16 Stroke Program Coordinator Relationship Specialty Start Date End Date Josh Ochoa PCP - General Family Practice 08/01/16 Deja Martins CNP Family Practice 09/17/16 Team Status: Inactive Member Role Status Dates Josh Ochoa MD Primary Care Provider Active Marie Elias MD Attending Provider Active Stroke Program Coordinator Relationship Specialty Start Date End Date Josh Ochoa PCP - General Family Medicine 08/01/16 Deja Martins CNP Family Medicine 09/17/16 Stroke Program Coordinator Relationship Specialty Start Date End Date Josh Ochoa PCP - General Family Medicine 08/01/16 Deja Martins CNP Family Medicine 09/17/16 Stroke Program Coordinator Relationship Specialty Start Date End Date Josh Ochoa PCP - General Family Medicine 08/01/16 Deja Martins CNP Family Medicine 09/17/16 Stroke Program Coordinator Relationship Specialty Start Date End Date Josh Ochoa PCP - General Family Medicine 08/01/16 Deja Martins CNP Family Medicine 09/17/16 Stroke Program Coordinator Relationship Specialty Start Date End Date Josh Ochoa PCP - General Family Medicine 08/01/16 Deja Martins CNP Family Medicine 09/17/16 Stroke Program Coordinator Relationship Specialty Start Date End Date Josh Ochoa PCP - General Family Medicine 08/01/16 Deja Martins CNP Family Medicine 09/17/16 Stroke Program Coordinator Relationship Specialty Start Date End Date Josh Ochoa MD [address] [place] [phone] PCP - General Family Medicine 06/17/23 Stroke Program Coordinator Relationship Specialty Start Date End Date Josh Ochoa MD [address] [place] [phone] PCP - General Family Medicine 06/17/23 Stroke Program Coordinator Relationship Specialty Start Date End Date Josh Ochoa MD [address] [place] [phone] PCP - General Family Medicine 06/17/23 Stroke Program Coordinator Relationship Specialty Start Date End Date Josh Ochoa MD [address] [place] [address] PCP - General Family Medicine 06/17/23 Stroke Program Coordinator Relationship Specialty Start Date End Date Josh [...] BE BASED ON THE PRIMARY CLINICAL RECORDS. [employer] provides no warranty or guarantee of the accuracy or completeness of information in this document.
[2024-02-07 08:05] LABS: Chol HDL Ratio 6.6; Cholesterol 184 mg/dL (<=200); HDL Cholesterol 28 mg/dL (40-60); Triglycerides 1036 mg/dL (<=150); VLDL CHOLESTEROL 207.2 mg/dL
[2024-02-07 08:37] LABS: LDL Cholesterol Direct 47 mg/dL
[2024-02-07 13:31] LABS: Free T4 0.71 ng/dL (0.76-1.46)
[2024-02-07 13:35] LABS: Thyroid Stimulating Hormone 1.842 uIU/mL (0.358-3.740)
== END 2024-02-07 07:25 | disposition home or self-care (01) ==
LOC: LAB 07:26
PROVIDERS: PCP Family Medicine; Visit Provider Internal Medicine Interventional Cardiology
DX: E78.1 Pure hyperglyceridemia (principal)
CPT/HCPCS: 36415; 80061; 83721; 84439; 84443

== ENCOUNTER 2024-07-20 14:58 | Outpatient (REF) | payer OTHER, MEDICARE, SELFPAY ==
[2024-07-23 09:10] LABS: Age Gdln ACOG Testing Note (.); HPV Aptima Negative (Negative); IGP, Aptima HPV, rfx 16/18,45 Note (.)
== END 2024-07-20 14:59 | disposition home or self-care (01) ==
LOC: LAB 14:58
PROVIDERS: PCP Family Medicine; Visit Provider Physician Assistant
DX: Z01.419 Encounter for gynecological examination (general) (routine) without abnormal findings (principal)
CPT/HCPCS: 87624; 88175

== ENCOUNTER 2024-07-31 16:30 | Emergency (ER) | payer OTHER, MEDICARE, SELFPAY ==
[2024-07-31] VITALS (8 sets, daily range): BP systolic 88–102; BP diastolic 57–68; PULSE 102–129; TEMP 36.4; O2SAT 94–98; BMI 32.0
--- NOTE | 2024-07-31 16:41 | ECG_ITS ---
[facility] Test Date: 2024-07-31 Pat Name: SUAD ZENG Department: Room: - Gender: Female Nursing Home Assistant: : 1975 Requested By: [id number] Order Number: [id number] Reading MD: JULIANA SHANE M.D. Measurements Intervals [place] Rate: 116 P: 77 OR: 164 QRS: 14 QRSD: 88 T: 42 QT: 320 QTc: 389 Interpretive Statements 1120 Sinus tachycardia Borderline ECG Compared to ECG 03/29/2022 01:11:44 No significant changes Electronically Signed On 07-31-2024 17:42:54 EDT by JULIANA SHANE M.D.
--- NOTE | 2024-07-31 16:54 | ED_ITS ---
HPI HPI - General Adult General Chief complaint: Shortness of Breath/Dyspnea Stated complaint: DIZZINESS, HEART RATE/HEART HISTORY Time Seen by Provider: 07/31/24 16:32 Source: patient Mode of arrival: Wheelchair Limitations: no limitations History of Present Illness HPI narrative: 48-year-old female presents here with a chief complaint of fatigue and not feeling well. She states she was checking her pulse ox at home and dropped down to 88 to 90%. Patient states she has had a history of heart stents in July 2022. She is due to see rewards consultant this month. She states she felt like her heart was racing and is felt weakness and not felt well over the last couple of days. Denies any chest pain or fevers. 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 Upon arrival to the emergency room, she was afebrile and slightly tachycardic and a SpO2 of 94% on room air. Related Data Home Medications ?Medication ?Instructions ?Recorded ?Confirmed alprazolam 1 mg tablet 1 mg PO DAILY PRN anxiety 07/31/24 07/31/24 atomoxetine 80 mg capsule 80 mg PO DAILY 07/31/24 07/31/24 iiakncuegl-vgtckgzccxqod-pwftvxhw 1 cap PO Q8H PRN pain 07/31/24 07/31/24 50 mg-300 mg-40 mg capsule clopidogrel 75 mg tablet 75 mg PO DAILY 07/31/24 07/31/24 cyclobenzaprine 5 mg tablet 5 mg PO Q8H PRN muscle spasticity 07/31/24 07/31/24 dapagliflozin propanediol 10 mg 10 mg PO DAILY 07/31/24 07/31/24 tablet (Farxiga) estradiol 0.5 mg tablet 0.5 mg PO DAILY 07/31/24 07/31/24 estradiol 1 mg tablet 2 mg PO .weekly 07/31/24 07/31/24 ezetimibe 10 mg tablet 10 mg PO DAILY 07/31/24 07/31/24 fenofibrate 160 mg tablet 160 mg PO DAILY 07/31/24 07/31/24 furosemide 40 mg tablet 40 mg PO DAILY 07/31/24 07/31/24 glipizide 10 mg tablet 10 mg PO DAILY 07/31/24 07/31/24 hydroxyzine HCl 50 mg tablet 50 mg PO DAILY PRN itching 07/31/24 07/31/24 insulin aspart U-100 100 unit/mL 1 sliding scale dose subcut TID 07/31/24 07/31/24 (3 mL) subcutaneous pen (Novolog FlexPen U-100 Insulin aspart) insulin glargine 100 unit/mL (3 25 unit subcut BID 07/31/24 07/31/24 mL) subcutaneous pen (Lantus Solostar U-100 Insulin) isosorbide mononitrate 30 mg 30 mg PO DAILY 07/31/24 07/31/24 tablet,extended release 24 hr ketorolac 30 mg/mL (1 mL) 30 mg IM Q8H PRN pain 07/31/24 07/31/24 injection solution meclizine 25 mg tablet 25 mg PO QID PRN dizziness 07/31/24 07/31/24 metformin 1,000 mg tablet 1,000 mg PO BID 07/31/24 07/31/24 metoclopramide HCl 10 mg tablet 10 mg PO QID 07/31/24 07/31/24 metoprolol succinate 25 mg 25 mg PO DAILY 07/31/24 07/31/24 tablet,extended release 24 hr pregabalin 200 mg capsule 200 mg PO TID 07/31/24 07/31/24 prochlorperazine maleate 10 mg 10 mg PO .q6 PRN nausea and 07/31/24 07/31/24 tablet vomiting progesterone micronized 100 mg 100 mg PO DAILY 07/31/24 07/31/24 capsule rosuvastatin 40 mg tablet 40 mg PO DAILY 07/31/24 07/31/24 tirzepatide 2.5 mg/0.5 mL 5 mg subcut .weekly 07/31/24 07/31/24 subcutaneous pen injector (Litzy) tramadol 50 mg tablet 50 mg PO Q6H PRN pain 07/31/24 07/31/24 venlafaxine 225 mg tablet,extended 225 mg PO DAILY 07/31/24 07/31/24 release 24 hr Allergies Allergy/AdvReac Type Severity Reaction Status Date / Time cod liver oil (From Fishlabs) Allergy Hives Verified 07/31/24 16:39 codeine Allergy Hives Verified 07/31/24 16:39 erythromycin base Allergy Hives Verified 07/31/24 16:39 latex Allergy Anaphylaxis Verified 07/31/24 16:39 Penicillins Allergy hives Verified 07/31/24 16:39 Sulfa (Sulfonamide Allergy Hives Verified 07/31/24 16:39 Antibiotics) zinc oxide (From Desitin) Allergy Hives Verified 07/31/24 16:39 Opioid HPI Opioid Management Most Recent Opioid Data: No Data to Display Review of Systems ROS Narrative All Systems are negative except as noted/marked.All systems reviewed and otherwise negative PFSH PFSH Social History Little interest or pleasure in doing things: not at all Feeling down, depressed, or hopeless: not at all Exam Constitutional Vital Signs, click to edit/add: Last Vital Signs Temp 97.6 F 07/31/24 16:39 Pulse 102 H 07/31/24 18:30 Resp 26 H 07/31/24 18:30 BP 94/57 07/31/24 17:00 Pulse Ox 94 L 07/31/24 17:00 O2 Del Method Room Air 07/31/24 16:39 Course Vital Signs Vital signs: Vital Signs Pulse Oximetry 98 07/31/24 16:37 Temperature 97.6 F 07/31/24 16:39 Pulse Rate 102 H 07/31/24 18:30 Respiratory Rate 26 H 07/31/24 18:30 Blood Pressure 94/57 07/31/24 17:00 Pulse Oximetry 94 L 07/31/24 17:00 Oxygen Delivery Method Room Air 07/31/24 16:39 Medical Decision Making Differential Diagnosis Differential Diagnosis: , UTI, dehydration, dizziness, uri Medical Records Medical records reviewed: Yes I reviewed the patient's medical records Medical records narrative: 48-year-old female presents here with a chief complaint of fatigue and not feeling well. She states she was checking her pulse ox at home and dropped down to 88 to 90%. Patient states she has had a history of heart stents in July 2022. She is due to see rewards consultant this month. She states she felt like her heart was racing and is felt weakness and not felt well over the last couple of days. Denies any chest pain or fevers. 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 Upon arrival to the emergency room, she was afebrile and slightly tachycardic and a SpO2 of 94% on room air. Patient presented to the emergency room stating she did not feel well felt flushed and dizzy throughout the day. She does have a history of atrial fibrillation in the past. She states she felt her heart was racing and oxygen saturation was low. Upon arrival patient was tachycardic she was 94% on room air. Cardiac workup was performed today. Patient had a mildly elevated white blood cell count remainder CBC within normal limits. EKG was normal patient had 2 troponins drawn which were both negative. Patient was given IV fluids here today and she states she feels much better after fluids. Patient may have been a little dehydrated as she states she had not eaten anything today because she felt nauseous. COVID and influenza swabs are negative. I advised patient she may have a viral illness other than just COVID or influenza. Patient able to be discharged to home. Reasons to return to the emergency room were discussed. Patient does have a cardiac appointment later this month. Patient has not had any history of atrial fibrillation while here in the emergency room. Heart rate has improved to high 90s to 107. Vital signs are otherwise stable Lab Data Lab results reviewed: Yes I reviewed the patient's lab results Labs: Lab Results 07/31/24 07/31/24 07/31/24 Range/Units 16:44 17:02 17:35 WBC 15.1 H (4.0-11.0) 10^3/uL RBC 4.07 L (4.20-5.40) 10^6/uL Hgb 12.3 (12.0-16.0) g/dL Hct 37.9 (36.0-48.0) % MCV 93.1 (81.0-99.0) fL MCH 30.2 (26.7-34.0) pg MCHC 32.5 (29.9-35.2) g/dL RDW 13.6 (11.0-15.0) % Plt Count 354 (150-450) 10^3/uL MPV 11.6 (9.5-13.5) fL Neut % (Auto) 61.9 (43.0-75.0) % Lymph % (Auto) 29.1 (20.5-60.0) % [place] % (Auto) 6.8 (1.7-12.0) % Eos % (Auto) 1.1 (0.9-7.0) % Baso % (Auto) 0.8 (0.2-2.0) % Neut # (Auto) 9.4 H (1.4-6.5) 10^3/uL Lymph # (Auto) 4.4 H (1.2-3.8) 10^3/uL [place] # (Auto) 1.0 H (0.3-0.8) 10^3/uL Eos # (Auto) 0.2 (0.0-0.7) 10^3/uL Baso # (Auto) 0.1 (0.0-0.1) 10^3/uL Abs Immat Gran (auto) 0.04 H (0.00-0.03) 10^3/uL Imm/Tot Granulo (auto) 0.3 (0.0-0.5) % PT 11.1 (9.0-11.6) sec INR 1.05 APTT 24.9 (22.3-36.2) sec D-Dimer 0.22 (<=0.59) mg/L FEU Sodium 138 (136-145) mmol/L Potassium 4.0 (3.5-5.1) mmol/L Chloride 101 (98-107) mmol/L Carbon Dioxide 24.4 (21.0-32.0) mmol/L Anion Gap 16.6 BUN 55.0 H (7.0-18.0) mg/dL Creatinine 0.97 (0.55-1.02) mg/dL Est GFR ( Amer) >60 (>=60 mL/min/1.73m^2) Est GFR (Non-Af Amer) >60 (>=60 mL/min/1.73m^2) BUN/Creatinine Ratio 56.7 Glucose 240 H (74-106) mg/dL Calcium 10.1 (8.5-10.1) mg/dL Total Bilirubin 0.2 (0.2-1.0) mg/dL AST 21 (15-37) U/L ALT 52 (14-59) U/L Alkaline Phosphatase 56 (46-116) U/L Troponin I High Sens 9.8 (4.0-51.3) pg/mL NT-Pro-B Natriuret Pep 103.0 (<=900.0) pg/mL Total Protein 7.6 (6.4-8.2) g/dL Albumin 4.3 (3.4-5.0) g/dL Globulin 3.3 g/dL Albumin/Globulin Ratio 1.3 Urine Color Lt. yellow (YELLOW) Urine Clarity Clear (CLEAR) Urine pH 5.5 (5.0-9.0) Ur Specific [place] <=1.005 A (1.005-1.025) Urine Protein Negative (NEG/TRACE) mg/dL Urine Glucose (UA) >=1000 A (NEGATIVE) mg/dL Urine Ketones Negative (NEGATIVE) mg/dL Urine Occult Blood Negative (NEGATIVE) Urine Nitrite Negative (NEGATIVE) Urine Bilirubin Negative (NEGATIVE) Urine Urobilinogen 0.2 (0.2-1.0) EU/dL Ur Leukocyte Esterase Negative (NEGATIVE) Urine RBC None seen (0-2) #/HPF Urine WBC None seen (NONE SEEN) #/HPF Ur Squamous Epith Cells Few A (NONE/RARE) #/LPF Urine Crystals None seen (None Seen) #/HPF Urine Bacteria Trace A (NONE SEEN) #/HPF Urine Casts None seen (NONE SEEN) #/LPF Urine Mucus None seen (NONE SEEN) Ur Culture Indicated? No Influenza Type A Ag Negative Influenza Type B Ag Negative SARS-CoV-2 Ag (CV2AG) Negative (NEGATIVE) 07/31/24 Range/Units 18:12 WBC (4.0-11.0) 10^3/uL RBC (4.20-5.40) 10^6/uL Hgb (12.0-16.0) g/dL Hct (36.0-48.0) % MCV (81.0-99.0) fL MCH (26.7-34.0) pg MCHC (29.9-35.2) g/dL RDW (11.0-15.0) % Plt Count (150-450) 10^3/uL MPV (9.5-13.5) fL Neut % (Auto) (43.0-75.0) % Lymph % (Auto) (20.5-60.0) % [place] % (Auto) (1.7-12.0) % Eos % (Auto) (0.9-7.0) % Baso % (Auto) (0.2-2.0) % Neut # (Auto) (1.4-6.5) 10^3/uL Lymph # (Auto) (1.2-3.8) 10^3/uL [place] # (Auto) (0.3-0.8) 10^3/uL Eos # (Auto) (0.0-0.7) 10^3/uL Baso # (Auto) (0.0-0.1) 10^3/uL Abs Immat Gran (auto) (0.00-0.03) 10^3/uL Imm/Tot Granulo (auto) (0.0-0.5) % PT (9.0-11.6) sec INR APTT (22.3-36.2) sec D-Dimer (<=0.59) mg/L FEU Sodium (136-145) mmol/L Potassium (3.5-5.1) mmol/L Chloride (98-107) mmol/L Carbon Dioxide (21.0-32.0) mmol/L Anion Gap BUN (7.0-18.0) mg/dL Creatinine (0.55-1.02) mg/dL Est GFR ( Amer) (>=60 mL/min/1.73m^2) Est GFR (Non-Af Amer) (>=60 mL/min/1.73m^2) BUN/Creatinine Ratio Glucose (74-106) mg/dL Calcium (8.5-10.1) mg/dL Total Bilirubin (0.2-1.0) mg/dL AST (15-37) U/L ALT (14-59) U/L Alkaline Phosphatase (46-116) U/L Troponin I High Sens 13.1 (4.0-51.3) pg/mL NT-Pro-B Natriuret Pep (<=900.0) pg/mL Total Protein (6.4-8.2) g/dL Albumin (3.4-5.0) g/dL Globulin g/dL Albumin/Globulin Ratio Urine Color (YELLOW) Urine Clarity (CLEAR) Urine pH (5.0-9.0) Ur Specific [place] (1.005-1.025) Urine Protein (NEG/TRACE) mg/dL Urine Glucose (UA) (NEGATIVE) mg/dL Urine Ketones (NEGATIVE) mg/dL Urine Occult Blood (NEGATIVE) Urine Nitrite (NEGATIVE) Urine Bilirubin (NEGATIVE) Urine Urobilinogen (0.2-1.0) EU/dL Ur Leukocyte Esterase (NEGATIVE) Urine RBC (0-2) #/HPF Urine WBC (NONE SEEN) #/HPF Ur Squamous Epith Cells (NONE/RARE) #/LPF Urine Crystals (None Seen) #/HPF Urine Bacteria (NONE SEEN) #/HPF Urine Casts (NONE SEEN) #/LPF Urine Mucus (NONE SEEN) Ur Culture Indicated? Influenza Type A Ag Influenza Type B Ag SARS-CoV-2 Ag (CV2AG) (NEGATIVE) Imaging Data Chest x-ray: Attestation: I have reviewed the pertinent imaging results. Radiologist's impression: radiology reading negative ECG Data Attestation: ?I have reviewed the pertinent ECG results. Interpretation: 1640 sinus tachycardia with a rate of 116 bpm, VT interval 164 ms, QRS duration 88 ms, no STEMI no ST elevation or depression Discharge Plan Discharge Chief Complaint: Shortness of Breath/Dyspnea Clinical Impression: Dyspnea, Tachycardia Patient Disposition: Home, Self-Care Time of Disposition Decision: 18:35 Condition: Good Prescriptions / Home Meds: No Action alprazolam 1 mg tablet 1 mg PO DAILY PRN (Reason: anxiety) atomoxetine 80 mg capsule 80 mg PO DAILY gqbttdnzfd-avbjlcrbnaoqo-mpkh 50-300-40 mg capsule 1 cap PO Q8H PRN (Reason: pain) clopidogrel 75 mg tablet 75 mg PO DAILY cyclobenzaprine 5 mg tablet 5 mg PO Q8H PRN (Reason: muscle spasticity) dapagliflozin propanediol [Farxiga] 10 mg tablet 10 mg PO DAILY estradiol 0.5 mg tablet 0.5 mg PO DAILY estradiol 1 mg tablet 2 mg PO .weekly ezetimibe 10 mg tablet 10 mg PO DAILY fenofibrate 160 mg tablet 160 mg PO DAILY furosemide 40 mg tablet 40 mg PO DAILY glipizide 10 mg tablet 10 mg PO DAILY hydroxyzine HCl 50 mg tablet 50 mg PO DAILY PRN (Reason: itching) insulin aspart U-100 [Novolog FlexPen U-100 Insulin] 100 unit/mL (3 mL) insulin pen 1 sliding scale dose SUBCUT TID insulin glargine [Lantus Solostar U-100 Insulin] 100 unit/mL (3 mL) insulin pen 25 unit SUBCUT BID isosorbide mononitrate 30 mg tablet extended release 24 hr 30 mg PO DAILY meclizine 25 mg tablet 25 mg PO QID PRN (Reason: dizziness) metformin 1,000 mg tablet 1,000 mg PO BID metoclopramide HCl 10 mg tablet 10 mg PO QID metoprolol succinate 25 mg tablet extended release 24 hr 25 mg PO DAILY pregabalin 200 mg capsule 200 mg PO TID prochlorperazine maleate 10 mg tablet 10 mg PO .q6 PRN (Reason: nausea and vomiting) progesterone micronized 100 mg capsule 100 mg PO DAILY rosuvastatin 40 mg tablet 40 mg PO DAILY Mounjaro 2.5 mg/0.5 mL pen injector 5 mg SUBCUT .weekly tramadol 50 mg tablet 50 mg PO Q6H PRN (Reason: pain) venlafaxine 225 mg tablet extended release 24hr 225 mg PO DAILY ketorolac 30 mg/mL (1 mL) solution 30 mg IM Q8H PRN (Reason: pain) Print Language: Tamazight Instructions: Dyspnea (ED), Tachycardia (ED) Referrals: Josh Tracy MD [Primary Care Provider] - 1 week
[2024-07-31 16:58] LABS: Basophils Absolute Auto 0.1 10^3/uL (0.0-0.1); Basophils Percent Auto 0.8 % (0.2-2.0); Eosinophils Absolute Auto 0.2 10^3/uL (0.0-0.7); Eosinophils Percent Auto 1.1 % (0.9-7.0); Hematocrit 37.9 % (36.0-48.0); Hemoglobin 12.3 g/dL (12.0-16.0); Immature Granulocytes Abs Auto 0.04 10^3/uL (0.00-0.03); Immature Granulocytes Pct Auto 0.3 % (0.0-0.5); Lymphocytes Absolute Auto 4.4 10^3/uL (1.2-3.8); Lymphocytes Percent Auto 29.1 % (20.5-60.0); Mean Corpuscular HGB Conc 32.5 g/dL (29.9-35.2); Mean Corpuscular Hemoglobin 30.2 pg (26.7-34.0); Mean Corpuscular Volume 93.1 fL (81.0-99.0); Mean Platelet Volume 11.6 fL (9.5-13.5); Monocytes Percent Auto 6.8 % (1.7-12.0); Neutrophils Absolute Auto 9.4 10^3/uL (1.4-6.5); Neutrophils Percent Auto 61.9 % (43.0-75.0); Platelet Count 354 10^3/uL (150-450); Red Blood Count 4.07 10^6/uL (4.20-5.40); Red Cell Distribution Width 13.6 % (11.0-15.0); White Blood Count 15.1 10^3/uL (4.0-11.0)
[2024-07-31] MEDS: 0.9 % SODIUM CHLORIDE 1,000 ML 1000 ML IV (17:00)
[2024-07-31 17:18] LABS: Alanine Aminotransferase 52 U/L (14-59); Albumin Globulin Ratio 1.3; Albumin Level 4.3 g/dL (3.4-5.0); Alkaline Phosphatase 56 U/L (46-116); Anion Gap 16.6; Aspartate Amino Transferase 21 U/L (15-37); BUN Creatinine Ratio 56.7; Bilirubin Total 0.2 mg/dL (0.2-1.0); Calcium 10.1 mg/dL (8.5-10.1); Carbon Dioxide 24.4 mmol/L (21.0-32.0); Chloride 101 mmol/L (98-107); Estimated GFR (African America >60 (>=60 mL/min/1.73m^2); Estimated GFR (Non-African Ame >60 (>=60 mL/min/1.73m^2); Globulin 3.3 g/dL; Glucose 240 mg/dL (74-106); Sodium 138 mmol/L (136-145); Total Protein 7.6 g/dL (6.4-8.2); Troponin I High Sensitivity 9.8 pg/mL (4.0-51.3)
[2024-07-31 17:19] LABS: Internal Control Within Normal Limits; SARS-CoV-2 Ag NEGATIVE (NEGATIVE)
[2024-07-31 17:20] LABS: Influenza Virus A Antigen Negative; Influenza Virus B Antigen Negative; Internal Control Within Normal Limits
[2024-07-31 17:22] LABS: D Dimer 0.22 mg/L FEU (<=0.59)
[2024-07-31 17:24] LABS: INR 1.05; Partial Thromboplastin Time 24.9 sec (22.3-36.2); Prothrombin Time 11.1 sec (9.0-11.6)
[2024-07-31 17:39] LABS: Bilirubin Urine NEGATIVE (NEGATIVE); Blood Urine NEGATIVE (NEGATIVE); Clarity Urine CLEAR (CLEAR); Color Urine LT. YELLOW (YELLOW); Glucose Urine UA >=1000 mg/dL (NEGATIVE); Ketones Urine NEGATIVE (NEGATIVE); Leukocyte Esterase Urine NEGATIVE (NEGATIVE); Nitrite Urine NEGATIVE (NEGATIVE); Protein Urine NEGATIVE (NEG/TRACE); Specific Gravity Urine <=1.005 (1.005-1.025); Urobilinogen Urine 0.2 EU/dL (0.2-1.0); pH Urine 5.5 (5.0-9.0)
[2024-07-31 17:49] LABS: Bacteria Urine TRACE #/HPF (NONE SEEN); Cast Seen? NONE SEEN #/LPF (NONE SEEN); Crystals Seen? None Seen #/HPF (None Seen); Mucus Urine NONE SEEN (NONE SEEN); RBC Urine NONE SEEN #/HPF (0-2); Squamous Epithelial Cell Urine FEW #/LPF (NONE/RARE); Urine Culture Indicated NO; WBC Urine NONE SEEN #/HPF (NONE SEEN)
[2024-07-31 18:32] LABS: Troponin I High Sensitivity 13.1 pg/mL (4.0-51.3)
== END 2024-07-31 18:49 | disposition home or self-care (01) ==
PROVIDERS: Physician Assistant; Emergency Provider Emergency Medicine; PCP Family Medicine
DX: R06.00 Dyspnea, unspecified (principal); R00.0 Tachycardia, unspecified; R42 Dizziness and giddiness; I48.91 Unspecified atrial fibrillation
CPT/HCPCS: 36415; 71045; 80053; 81001; 83880; 84484; 85025; 85378; 85610; 85730; 87804; 87811; 93005; 99285

== ENCOUNTER 2024-12-08 09:09 | Outpatient (RCR) | payer MEDICARE, SELFPAY | END 2024-12-10 16:45 | disposition home or self-care (01) | LOC: MM 09:09 | PROVIDERS: PCP Family Medicine; Visit Provider Internal Medicine | DX: Z51.81 Encounter for therapeutic drug level monitoring (principal); Z79.01 Long term (current) use of anticoagulants; I48.91 Unspecified atrial fibrillation ==

== ENCOUNTER 2024-12-11 00:15 | Outpatient (RCR) | payer MEDICARE, SELFPAY | END 2025-01-07 12:41 | disposition home or self-care (01) | LOC: MM 00:15 | PROVIDERS: PCP Family Medicine; Visit Provider Internal Medicine | DX: Z51.81 Encounter for therapeutic drug level monitoring (principal); Z79.01 Long term (current) use of anticoagulants; I48.0 Paroxysmal atrial fibrillation | CPT/HCPCS: 85610; G0463 ==

== ENCOUNTER 2024-12-31 09:32 | Outpatient (OUT) | payer MEDICARE, SELFPAY ==
--- OUTSIDE RECORDS SUMMARY | 2024-12-31 09:46 | XMS_ITS | CCD ---
Author Organization [facility] Care Team Providers Care Load Manager Name Role Phone CHONG CARRERO Admitting Unavailable JOSH OCHOA Primary Care Unavailable SELF, REFERRED Referring Unavailable GEE ORELLANA Attending Unavailable EBRAHEIM, BENJAMIN Admitting Unavailable EBRAHEIM, BENJAMIN Attending Unavailable JOSH OCHOA Referring Unavailable NADEREErick, JOSH Primary Care Unavailable EBRAHEIM, BENJAMIN Admitting Unavailable EBRAHEIM, BEJNAMIN Attending Unavailable JOSH OCHOA Referring Unavailable NADEREJOSH Suarez Primary Care Unavailable EBRAHEIM, BENJAMIN Admitting Unavailable EBRAHEIM, BENJAMIN Attending Unavailable JOSH OCHOA Referring Unavailable LAZARAEREJOSH Suarez Primary Care Unavailable Josh Ochoa Primary Care Provider Suresh Martins CNPistina Unavailable Chanel Workman Unavailable Vianney Collins Unavailable Josh Ochoa Primary Care Provider Suresh Martins CNPistina Unavailable [phone] MD Josh Ochoa Primary Care Provider MD Marie Elias Attending Provider Josh Ochoa Primary Care Provider Suresh Martins CNPistina Unavailable MD Josh Ochoa Primary Care Provider [phone] MD Lee Chowdary Attending Provider DR JOSH OCHOA Attending Unavailable GABRIELA, DR JOSH Ozuna Admitting Unavailable GABRIELA, DR JOSH Ozuna Consulting Unavailable GABRIELA, DR JOSH Ozuna Primary Care Unavailable JENNIFER, DR BARTOLOME Suarez Consulting Unavailable NADERER, DR JOSH Ozuna Primary Care Unavailable ADIA ., JACQUELYN Attending Unavailable ADIA ., JACQUELYN Admitting Unavailable ADIA ., JACQUELYN Consulting Unavailable NADERER, DR JOSH Ozuna Consulting Unavailable NADERER, DR JOSH Ozuna Primary Care Unavailable NADERER, DR JOSH Ozuna Attending Unavailable NADERER, DR JOSH Ozuna Admitting Unavailable CURT, MARIE Consulting Unavailable CURT, MARIE Attending Unavailable CURT, MARIE Admitting Unavailable NADERER, DR JOSH Ozuna Primary Care Unavailable LUDY, JESSICA Consulting Unavailable MARKER ., DR WEAVER Consulting Unavailable MARKER ., DR WEAVER Attending Unavailable MARKER ., DR WEAVER Admitting Unavailable NADERER, DR JOSH Ozuna Primary Care Unavailable PINTO, CORKY Consulting Unavailable NADERER, DR JOSH Ozuna Primary [...] Unavailable NADERER, DR JOSH Ozuna Consulting Unavailable Naderer Josh WARD Primary Care Provider [phone] Josh Ochoa Primary Care Provider [phone] Josh Ochoa MD Unavailable Josh Ochoa MD Primary Care Provider MD Josh Ochoa Primary Care Provider [phone] AsaMD fili Imad Attending Provider Asaad, Imad Attending Unavailable Asaad, Imad Admitting Unavailable Nadereerick, Josh Primary Care Unavailable Jackson [facility] Unavailable Josh Ochoa MD Primary Care Provider JESSEE BILLY Attending Unavailable JESSEE BILLY Referring Unavailable GABRIELA, JOSH BURKETT Primary Care Unavailabl e KARETI, WHITE Referring Unavailable NADERER, JOSH BURKETT Primary Care Unavailabl e KARETI, WHITE Attending Unavailable KARETI, WHITE Referring Unavailable NADERER, JOSH BURKETT Primary Care Unavailabl e NADERER, JOSH KWADWO Primary Care Unavailabl e KARETI, WHITE Attending Unavailable KARETI, WHITE Referring Unavailable FROIMSON, KINGA Referring Unavailable NADERER, JOSH A Primary Care Unavailable FROIMSON, KINGA Referring Unavailable NADERER, JOSH A Primary Care Unavailable FROIMSON, KINGA Referring Unavailable NADERER, JOSH A Primary Care Unavailable FROIMSON, KINGA Attending Unavailable FROIMSON, KINGA Referring Unavailable FROIMSON, KINGA Attending Unavailable NADERER, JOSH A Primary Care Unavailable FROIMSON, KINGA Referring Unavailable FROIMSON, KINGA Attending Unavailable NADERER, JOSH A Primary Care Unavailable MARILYNN LUA Attending Unavailable NADERER, JOSH A Primary Care Unavailable FROIMSON, KINGA Referring Unavailable NADERER, JOSH A Primary Care Unavailable JULIANA SHANE Attending Unavailable ANDI MARRO A. Attending Unavailable JOUBNATHALY, JOSE FRANCISCO A. Attending Unavailable MOUKARBELJULIANA Attending Unavailable JOANDI JAMESO A. Attending Unavailable JOJACOB, JOSE FRANCISCO A. Attending Unavailable JACKSON, DC Cam Attending Unavailable ARCEOLU SINGLETON Attending Unavailable ADIAJACQUELYN Attending Unavailable NADERERJOSH Attending Unavailable JACKSON, DC L Attending Unavailable JACKSON, DC L Attending Unavailable OLU ARCE Attending Unavailable NADJOSH LUNDY Attending Unavailable JACKSON, DC L Attending Unavailable ARCEOLU SINGLETON Attending Unavailable ARCE OLU W Attending Unavailable JACKSON, DC L Attending Unavailable JACKSON, DC L Attending Unavailable JACKSON, DC L Attending Unavailable SARA KRAMER Attending Unavailab kavita JACKSON, DC Cam Attending Unavailable SARA KRAMER Attending Unavailab le NADEREJOSH Suarez Attending Unavailable JACKSON, DC L Attending Unavailable NADERERJOSH A Primary Care Unavailable Elmo Solano Admitting Unavailable Elmo Solano Attending Unavailable Elmo Solano Attending Unavailable NADERERJOSH A Primary Care Unavailable PHILIP MATHEWS Admitting Unavailable PHILIP MATHEWS Attending Unavailable NADERER, JOSH A Primary Care Unavailable Allergies Allergy Classification Reported Allergen(s) Allergy Type Date of Onset Reaction(s) Facility (10 sources) Codeine; 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: [CODEINE] Drug Allergy 04-24-20 05 [facility] Repository (4 sources) Erythromycin; 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: [ERYTHROMYCIN] Drug Allergy 04-24-20 05 [facility] Repository (9 sources) Penicillins; 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: [PENICILLINS] Drug allergy (disorder) 04-24-20 05 [facility] Repository (9 sources) Sulfonamides (Antibiotic); 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: [SULFA (SULFONAMIDE ANTIBIOTICS)] Drug allergy (disorder) 04-24-20 05 [facility] Repository (20 sources) Ciprofloxacin; 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: [CIPROFLOXACIN] Drug Allergy 01-18-20 17 Unknown, [facility] (20 sources) Codeine Drug Allergy 04-24-20 05 Hives, Unknown [facility] (20 sources) Desonide; 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: [DESONIDE] Drug Allergy 11-25-19 13 Other: See Comments [facility] Work Phone: (20 sources) Erythromycin Drug Allergy 04-24-20 05 Hives, Rash [facility] (20 sources) Latex; 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: [latex] Propensity to adverse reactions 04-24-20 05 Itching, Anaphylaxis [facility] (20 sources) Penicillin V; 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: [PENICILLIN V] Drug Allergy 04-24-20 05 [facility] (20 sources) Sulfonamides (Antibiotic) Propensity to adverse reactions 04-24-20 05 Hives, Unknown, Rash [facility] (3 sources) penicillAMINE Drug Allergy 01-01-20 22 shortness of breath [facility] (2 sources) Sulfamethoxazole / Trimethoprim Drug Allergy [facility] Fullscreen [facility] Other (2 sources) Sulfonamides (Antibiotic) Propensity to adverse reactions Unknown [facility] Other (5 sources) Adhesive Tape; 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: [adhesive tape] Allergy to substance 04-24-20 19 Redness of Skin [facility] (20 sources) erythromycin base; 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: [Erythromycin Base] Allergy to substance 11-25-19 13 [facility] (1 source) Desonide Drug Allergy 11-15-19 [facility] Repository (20 sources) Cod liver oil; 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: [cod liver oil] Allergy to substance 09-07-19 [facility] (20 sources) Zinc Oxide; 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: [zinc oxide] Drug Allergy 09-07-19 [facility] (20 sources) Desonide Allergy to substance 11-25-19 Unknown [facility] Work Phone: (20 sources) Penicillins Drug Allergy 03-04-20 18 Rash [facility] Healthcare (20 sources) Wound Dressing Adhesive Drug Allergy 04-24-20 Unknown [facility] Healthcare (2 sources) Sulfamethoxazole; 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: [sulfamethoxazole] Drug Allergy 01-01-20 [facility] (2 sources) Trimethoprim; 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: [trimethoprim] Drug Allergy 01-01-20 [facility] (1 source) Codeine Drug Allergy 09-07-19 [facility] Repository (1 source) Desonide Drug Allergy 01-01-20 [facility] Repository (1 source) penicillAMINE Drug Allergy 01-01-20 [facility] Repository (1 source) Penicillins Drug allergy (disorder) 09-07-19 [facility] Repository (1 source) Sulfonamides (Antibiotic) Drug allergy (disorder) 09-07-19 23 [facility] Repository (9 sources) Prochlorperazine; 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: [PROCHLORPERAZINE] Drug Allergy 04-13-20 Intolerance, GI intolerance [facility] (1 source) Adhesive agent; 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: [ADHESIVE] Propensity to adverse reactions to drug (disorder) 04-24-20 [facility] Repository (1 source) sulfa drug; 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: [sulfa drug] Propensity to adverse reactions to drug (disorder) [facility] Repository Medications Current Medications Medication Drug Class(es) Dates Sig (Normalized) Sig (Original) acetaminophen 300 mg / butalbital 50 mg / caffeine 40 mg oral capsule (20 sources) Barbiturate, Central Nervous System Stimulant, Methylxanthine Start: 12-10-2024 take 1 capsule by mouth every twenty-four hours as needed butalbital-aceta minophen-caffein e (Fioricet) 50-300-40 MG capsule Take 1 capsule by mouth Daily as needed 12/10/2024 Active Start: 08-07-2024 take 1 capsule by mo uth once daily as needed hzjszboidv-YVZB-qmhcigib 50-300-40 MG CAPS per capsule Take 1 capsule by mouth daily as needed 08/07/2024 Active Start: 07-27-2024 End: 08-26-2024 take 1 capsule by mouth every eight hours for headache nylfibetkd-bbdhzmrwnjvnp-hkbkwlcp (Fioricet) 50-300-40 MG capsule Indications: Intractable chronic migraine without aura and without status migrainosus (CMS/HCC) Take 1 capsule by mouth every 8 (eight) hours if needed for headaches 84 capsule 07/27/2024 08/26/2024 Active Start: 05-13-2024 take 1 capsule by mo uth every twenty-four hours as needed zoxbfzmfhg-gmlgdraefpxiw-kwahczow (Fioricet) 50-300-40 MG capsule Take 1 capsule by mouth Daily as needed 05/13/2024 Active Start: 11-20-2023 End: 02-18-2024 take 1 tablet by mouth every six hours Vwnjlvgaqz-Bcmxgtufwluhk-Uwbq Active 1 TAB PO Every 6 hours January 08, 2024 12:00am Start: 06-06-2023 End: 07-06-2023 take 1 capsule by mouth every eight hours for headache czuokuijjn-hacyzffedjzhj-bfwowjjq (Fioricet) 50-300-40 MG capsule Indications: Migraine without aura and without status migrainosus, not intractable (CMS/HCC) Take 1 capsule by mouth every 8 (eight) hours if needed for headaches 30 capsule 1 06/06/2023 07/06/2023 Active Start: 08-01-2022 End: 01-08-2024 take 1 capsule by mouth every six hours as needed acetaminophen 300 mg-caffeine 40 mg-butalbital 50 mg (FIORICET) per capsule Take 1 capsule by mouth every 6 hours as needed. 08/01/2022 Active Start: 08-29-2021 take 1 tablet by nicky every six hours as needed acetaminophen 325 mg-caffeine 40 mg-butalbital 50 mg (FIORICET) per tablet Take 1 tablet by mouth every 6 hours as needed. 0 08/29/2021 Active Comment on above: Take 1 tablet by nicky th every 6 hours as needed. albuterol 0.83 mg/ml inhalation solution (20 sources) beta2-Adrenergic Agonist albuter ol (2.5 MG/3ML) 0.083% nebulizer solution Take 2.5 mg by nebulization every 4 (four) hours if needed. Active take 2 puff(s) by in halation every four hours albuterol HFA 90 mcg/act inhaler Inhale 2 puffs every 4 (four) hours if needed. Active take 2 puff(s) by in halation every four hours as needed albuterol sulfate HFA (PROVENTIL;VENTOLIN;PROAIR) 108 (90 Base) MCG/ACT inhaler Inhale 2 puffs into the lungs every 4 hours as needed Active take 2 puff(s) by in halation every six hours as needed albuterol sulfate HFA (PROVENTIL;VENTOLIN;PROAIR) 108 (90 Base) MCG/ACT inhaler Inhale 2 puffs into the lungs every 6 hours as needed Active Albuterol Sulfat e (2.5 MG/3ML) 0.083% 3 ml Inhalation Three times a day Active ALPRAZolam 1 mg oral tablet (20 sources) Benzodiazepine Start: 10-30-2023 End: 12-04-2024 take 1 tablet by mouth once daily as needed ALPRAZolam (Xanax) 1 MG tablet Indications: Generalized anxiety disorder TAKE 1 TABLET BY MOUTH DAILY NEEDED 30 tablet 1 12/04/2024 Active Start: 09-06-2022 End: 01-08-2024 take 0.5 mg by mouth twice daily Alprazolam Discontinued 0.5 MG PO Twice daily September 06, 2022 12:00am January 08, 2024 10:18am Start: 04-27-2019 End: 07-21-2023 ALPRAZolam (Xanax) 1 MG tabl et Indications: Generalized anxiety disorder (CMS/HCC) Take 1 tablet (1 mg) by mouth Daily as needed for anxiety (1 as needed) 30 tablet 1 06/21/2023 07/21/2023 Active Start: 04-27-2019 take 1 tablet by nicky th four times daily Alprazolam (Xanax) 1 mg Tablet Active 1 MG PO Four times daily April 27, 2019 12:00am Start: 07-18-2016 ALPRAZolam (XA NAX) 0.5 mg tablet 1 mg. 07/18/2016 Active Comment on above: 1 mg. amoxicillin 875 mg / clavulanate 125 mg oral tablet (1 source) Penicillin-class Antibacterial Start: 01-01-20 take 1 tablet by mouth every twelve hours Amoxicillin-Pot Clavulanate 875-125 MG 1 tablet Orally every 12 hrs for 10 day(s) Dec, Active ARIPiprazole 15 mg oral tablet (20 sources) Atypical Antipsychotic Start: 06-04-19 End: 05-11-20 take 1 tablet by mouth in the morning ARIPiprazole (Abilify) 15 MG tablet Indications: Major depressive disorder, single episode, severe without psychotic features (HCC) (CMS/HCC) Take 1 tablet (15 mg) by mouth in the morning. 30 tablet 2 06/04/2023 05/11/2024 Discontinued Start: 08-27-2022 End: 01-08-2024 take 1 tablet by mouth once daily Aripiprazole (Abilify) 10 mg Tablet Discontinued 10 MG PO Daily August 27, 2022 12:00am January 08, 2024 10:18am Start: 11-21-2020 End: 04-08-2024 take 1 tablet by mouth once daily ARIPiprazole (ABILIFY) 5 mg tablet Take 5 mg by mouth once daily. 11/21/2020 04/08/2024 Discontinued take 1 tablet by nicky th every twenty-four hours Abilify 10 MG 1 tablet Orally Once a day Active Comment on above: Take 5 mg by mouth o nce daily. ascorbic acid 1000 mg oral tablet (20 sources) Vitamin C Start: 04-27-2019 End: 04-08-2024 Ascorbic Acid 1,000 mg tablet Ascorbic Acid (Vitamin C) Active 1 GM Oral Daily April 27, 2019 6:43am 04/27/2019 04/08/2024 Discontinued Start: 04-27-2019 End: 10-10-2022 take 1 g by mouth once daily Ascorbic Acid (Vitamin C) (Vitamin C) 1,000 mg Tablet Active 1 GM PO Daily April 27, 2019 1:00am Comment on above: Take 1,000 mg by nicky th. Ascorbic Acid (Vitam in C) Active 1 GM Oral Daily April 27, 2019 6:43am Aspir-81 81 MG (2 sources) take 1 tablet by mouth once daily Aspir-81 81 MG 1 tablet Orally Once a day for 30 day(s) Active Atogepant (3 sources) Start: 08-27-2022 take 1 tablet by mouth once daily Atogepant (Qulipta) 60 mg tablet Active 60 MG PO Daily August 27, 2022 12:00am Atogepant (Qulipta) 60 MG tablet (20 sources) Start: 09-29-2024 End: 10-29-2024 take 1 tablet by mouth once daily Atogepant (Qulipta) 60 MG tablet Indications: Intractable chronic migraine without aura and without status migrainosus Take 60 mg by mouth Daily 30 tablet 09/29/2024 10/29/2024 Active Start: 09-29-2024 End: 10-29-2024 take 1 tablet by mouth once daily Atogepant (Qulipta) 60 MG tablet Indications: Intractable chronic migraine without aura and without status migrainosus (CMS/HCC) Take 60 mg by mouth Daily 30 tablet 09/29/2024 10/29/2024 Active Start: 04-01-2023 End: 03-31-2024 take 1 tablet by mouth in the morning Atogepant (Qulipta) 60 MG tablet Indications: Intractable migraine without aura and without status migrainosus (CMS/HCC) Take 60 mg by mouth in the morning. 30 tablet 04/01/2023 03/31/2024 Start: 04-01-2023 End: 03-31-2024 take 1 tablet by mouth in the morning Atogepant (Qulipta) 60 MG tablet Indications: Intractable migraine without aura and without status migrainosus (CMS/HCC) Take 60 mg by mouth in the morning. 30 tablet 04/01/2023 03/31/2024 Active atomoxetine 80 mg oral capsule (20 sources) Norepinephrine Reuptake Inhibitor Start: 11-09-2024 take 1 capsule by mouth once daily atomoxetine (Strattera) 80 MG capsule Indications: ADD (attention deficit disorder) without hyperactivity TAKE 1 CAPSULE BY MOUTH DAILY 30 capsule 5 11/09/2024 Active Start: 08-20-2023 End: 03-31-2024 take 1 capsule by mouth once daily atomoxetine (Strattera) 80 MG capsule Indications: ADD (attention deficit disorder) without hyperactivity TAKE 1 CAPSULE BY MOUTH DAILY 30 capsule 5 11/09/2024 Active Start: 06-20-2023 take 1 capsule by mo [facility] in the morning atomoxetine (Strattera) 40 MG capsule Indications: ADD (attention deficit disorder) without hyperactivity Take 1 capsule (40 mg) by mouth in the morning. Swallow capsule whole; do not open. If opened accidentally, do not touch eyes; wash hands immediately (product is an eye irritant).. 30 capsule 2 06/20/2023 Active atorvastatin 80 mg oral tablet (20 sources) HMG-CoA Reductase Inhibitor Start: 03-06-2023 End: 06-20-2023 take 1 tablet by mouth in the morning atorvastatin (Lipitor) 80 MG tablet Indications: Mixed hyperlipidemia (CMS/HCC) Take 1 tablet (80 mg) by mouth in the morning. 90 tablet 3 06/20/2023 Active Start: 04-27-2019 take 1 tablet by nicky once daily at bedtime Atorvastatin (Lipitor) 40 mg Tablet Active 40 MG PO Daily at bedtime April 27, 2019 12:00am Start: 04-27-2019 End: 01-08-2024 take 2 tablets by mouth once daily at bedtime Atorvastatin (Lipitor) 40 mg Tablet Discontinued 80 MG PO Daily at bedtime April 27, 2019 1:00am January 08, 2024 10:18am End: 04-08-2024 take 4 tablets by mouth once daily atorvastatin (LIPITOR) 20 mg tablet Take 80 mg by mouth once daily. 04/08/2024 Discontinued take 1 tablet by nicky once daily atorvastatin (LIPITOR) 20 mg tablet Take 20 mg by mouth once daily. 0 Active Comment on above: Take 20 mg by mouth once daily. Take 80 mg by mouth once daily. Blood Glucose Monitoring Suppl (Blood Glucose Monitor System) w/Device kit (20 sources) Start: 06-16-2024 End: 06-16-2025 Blood Glucose Monitoring Suppl (Blood Glucose Monitor System) w/Device kit Indications: Type 2 diabetes mellitus with polyneuropathy (HCC) Test four times daily 1 kit 06/16/2024 06/16/2025 Active Start: 06-16-2024 End: 06-16-[address] (Blood Glucose Monitor System) w/Device kit Indications: Type 2 diabetes mellitus with polyneuropathy (CMS/HCC) Test four times daily 1 kit 06/16/2024 06/16/2025 Active Blood Glucose Monitoring Suppl (ONE TOUCH ULTRA 2) w/Device KIT (4 sources) Start: 06-16-2024 Blood Glucose Monitoring Suppl (ONE TOUCH ULTRA 2) w/Device KIT USE DIRECTED FOUR TIMES DAILY 06/16/2024 Active onabotulinumtoxina 200 unt injection (20 sources) Acetylcholine Release Inhibitor Start: 03-11-2024 200 Units, INTRAMUSCULAR, EVERY 12 WEEKS, First dose on Sat03/11/24 at 0800, Until Discontinued, This record documents the total dose provided to patient. See progress note for specific locations and amounts administered. Start: 03-11-2024 onabotulinum t oxin type A 200 Units injection (BOTOX) Start: 01-02-2023 End: 01-02-2023 onabotulinum toxin type A 20 0 Units injection (BOTOX) Start: 10-10-2022 End: 10-10-2022 onabotulinum toxin type A 20 0 Units injection (BOTOX) Start: 06-07-2021 End: 10-10-2022 onabotulinum toxin type A 20 0 Units injection (BOTOX) calcium carbonate 1500 mg oral tablet (20 sources) calcium carbonat e (CALTRATE) 600 mg calcium (1,500 mg) tab Take 600 mg by mouth. Active Comment on above: Take 600 mg by mouth . calcium carbonate 1500 mg / cholecalciferol 800 unt chewable tablet (4 sources) Vitamin D Start: 9 take 1 tablet by mouth twice daily Calcium Carbonate-Vitamin D3 (Caltrate 600 Plus D) 600 mg (1,500 mg)-800 unit Tablet,Chewable Active 1 TAB PO Twice daily April 27, 2019 1:00am Calcium Carbonate-Vit D-Min (CALTRATE 600+D PLUS MINERALS) 600-800 MG-UNIT CHEW (4 sources) Calcium Carbonate-Vit D-Min (CALTRATE 600+D PLUS MINERALS) 600-800 MG-UNIT CHEW Take by mouth Active Calcium Carbonate-Vit D-Min (Caltrate 600+D Plus Minerals) 600-800 MG-UNIT chewable tablet (20 sources) Calcium Carbonate-Vit D-Min (Caltrate 600+D Plus Minerals) 600-800 MG-UNIT chewable tablet Chew. Active Calcium Carbonat e-Vit D-Min (Caltrate 600+D Plus Minerals) 600-800 MG-UNIT chewable tablet Chew. 0 Active Caltrate 600+D 600-400 MG-UNIT (2 sources) take 1 tablet by mouth twice daily Caltrate 600+D 600-400 MG-UNIT 1 tablet Orally bid Active cholecalciferol 0.05 mg oral capsule (20 sources) Vitamin D Start: 08-27-2022 take 1 capsule by mouth once daily Cholecalciferol (Vitamin D3) (Vitamin D3) 50 mcg (2,000 unit) Capsule Active 2000 UNIT PO Daily August 27, 2022 12:00am Start: 10-12-2019 take 1 tablet by nicky th once daily cholecalciferol (VITAMIN D3) 50 mcg (2,000 unit) tablet Take 1 tablet by mouth once daily. 10/12/2019 Active take 2 tablets by mo ut once daily Cholecalciferol 1.25 MG (27194 UT) TABS Take 2 tablets by mouth nightly Active Comment on above: Take 1 tablet by nicky th once daily. clopidogrel 75 mg oral tablet (20 sources) P2Y12 Platelet Inhibitor Start: 07-14-2024 clopidogrel (Plavix) 75 MG tablet 07/14/2024 Active Start: 08-27-2022 End: 11-19-2023 clopidogrel (Plavix) 75 MG t ablet 07/14/2024 Active Continuous Blood Gluc Sensor (Dexcom G6 Sensor) misc (5 sources) Start: 04-19-2023 Continuous Blo od Gluc Sensor (Dexcom G6 Sensor) misc Indications: Type 2 diabetes mellitus with hyperglycemia, with long-term current use of insulin ([facility]) Use as directed 2 each 11 04/19/2023 Active Continuous Blood Gluc Transmit (Dexcom G6 transmitter) misc (5 sources) Start: 05-15-2023 Continuous Blo od Gluc Transmit (Dexcom G6 transmitter) misc USE DIRECTED FOR 90 DAYS 0 05/15/2023 Active cyclobenzaprine hydrochloride 5 mg oral tablet (20 sources) Muscle Relaxant Start: 08-27-2022 cyclobenzaprin e (FLEXERIL) 5 mg tablet 10/03/2022 Active take 1 tablet by nicky th three times daily as needed cyclobenzaprine (Flexeril) 10 MG tablet Take 10 mg by mouth 3 (three) times a day as needed. Active dapagliflozin 10 mg oral tablet (20 sources) Sodium-Glucose Cotransporter 2 Inhibitor Start: 08-27-2022 End: 12-08-2024 take 1 tablet by mouth once daily dapagliflozin (Farxiga) 10 MG Indications: Type 2 diabetes mellitus with polyneuropathy (HCC) TAKE 1 TABLET BY MOUTH DAILY 30 tablet 5 12/04/2024 Active DHEA 1MG PER ML (2 sources) DHEA 1MG PER ML INJECTION Externally PRN Active 1 ml dihydroergotamine mesylate 1 mg/ml injection (20 sources) Ergotamine Derivative Start: 08-27-2022 inject 1 mg by intramuscular injection every eight hours Dihydroergotamine Active 1 MG IM Q8H August 27, 2022 12:00am occ. migraines Start: 04-24-2005 End: 09-11-2024 dihydroergotamine (DHE) 1 mg /mL injection Inject 1 mg subcutaneously every 8 hours. As needed for migraine. No more than 2 injections/day or treating 2 injections per day. 10 mL 6 09/11/2024 Active Comment on above: Inject 1mg SQ every 8 hours as needed for migraine docosahexaenoic acid 120 mg / eicosapentaenoic acid 180 mg oral capsule (4 sources) [place]-3 1000 MG CAPS Take 1 capsule by mouth Active doxycycline monohydrate 100 mg oral capsule (1 source) Tetracycline-clas s Drug Start: 2 take 1 capsule by mouth every twelve hours Doxycycline Monohydrate 100 MG 1 capsule Orally every 12 hrs for 10 days Nov, Active estradiol 1 mg oral tablet (20 sources) Estrogen Start: End: 6 take 1 tablet by mouth once daily estradiol (Estrace) 0.5 MG tablet Indications: Hormone imbalance , Hot flashes Take 1 tablet (0.5 mg) by mouth Daily Take 1 tablet by mouth for 30 days 30 tablet 11 07/20/2024 07/15/2025 Active Start: 07-14-2024 estradiol (EST RACE) 1 MG tablet 1 tablet 07/14/2024 Active Start: 02-26-2023 End: 02-26-2024 take 2 tablets by mouth every week estradiol (Estrace) 1 MG tablet Indications: Hormone imbalance TAKE 2 TABLETS BY MOUTH ONCE A WEEK 8 tablet 11 11/26/2023 Active Start: 08-27-2022 take 1 mg by mouth t wo times weekly Estradiol Active 1 MG PO Twice a Week August 27, 2022 12:00am saturday and saturday Start: 08-07-2022 End: 10-30-2024 take 1 tablet by mouth once daily estradiol (Estrace) 1 MG tablet Indications: Hot flashes , Vaginal irritation Take 1 tablet (1 mg) by mouth Daily Take 1 tablet by mouth for 30 days 30 tablet 3 09/30/2024 Active Comment on above: TAKE 1 TABLET BY NICKY TH DAILY FOR 14 DAYS then TAKE 1 TABLET BY MOUTH twice a week eszopiclone 3 mg oral tablet (11 sources) Start: 3 End: 4 take 1 tablet by mouth once daily at bedtime eszopiclone (LUNESTA) 3 mg tab TAKE 1 TABLET BY MOUTH ONCE DAILY immediately before bedtime 09/05/2022 04/08/2024 Discontinued Comment on above: TAKE 1 TABLET BY NICKY TH ONCE DAILY immediately before bedtime EXEL SYRINGE 3 ML 25 X 5/8 (20 sources) Start: 5 EXEL SYRINGE 3 ML 25 X 5/8 Indications: Other general symptoms(780.99) use with DHE 10 6 04/24/2005 Active Comment on above: use with DHE ezetimibe 10 mg oral tablet (20 sources) Dietary Cholesterol Absorption Inhibitor Start: 4 End: 5 take 1 tablet by mouth in the morning ezetimibe (Zetia) 10 MG tablet Take 10 mg by mouth in the morning. 07/29/2023 Active fenofibrate 160 mg oral tablet (20 sources) Peroxisome Proliferator Receptor alpha Agonist Start: 3 End: 5 take 1 tablet by mouth once daily fenofibrate (Triglide) 160 MG tablet Indications: Hyperlipidemia, unspecified TAKE 1 TABLET BY MOUTH DAILY 90 tablet 3 06/02/2024 Active furosemide 40 mg oral tablet (20 sources) Loop Diuretic Start: 2 take 1 tablet by mouth once daily furosemide (LASIX) 40 mg tablet Take 40 mg by mouth once daily. 05/14/2021 Active Comment on above: Take 40 mg by mouth once daily. gentamicin 3 mg/ml ophthalmic solution (10 sources) Start: take 2 drop(s) into the eye(s) every four hours gentamicin (GARAMYCIN) 0.3 % ophthalmic solution instill 2 (TWO) DROPS IN BOTH EYES EVERY 4 HOURS FOR 7 DAYS 08/27/2024 Active Start: 08-06-2024 End: 08-13-2024 take 2 drop(s) into the eye(s) every four hours gentamicin (Garamycin) 0.3 % ophthalmic solution Indications: Hen[place] eye disease, unspecified laterality Administer 2 drops into both eyes every 4 (four) hours for 7 days 15 mL 08/06/2024 08/13/2024 Active glipiZIDE 10 mg oral tablet (20 sources) Sulfonylurea Start: 10-05-2022 take 1 tablet by mouth once daily glipiZIDE (Glucotrol) 10 MG tablet Indications: Type 2 diabetes mellitus with hyperglycemia (HCC) TAKE 1 TABLET BY MOUTH DAILY 30 tablet 5 02/25/2024 Active hydroCHLOROthiazide 12.5 mg / lisinopril 10 mg oral tablet (20 sources) Thiazide Diuretic, Angiotensin Converting Enzyme Inhibitor Start: 04-27-2019 take 1 tablet by mouth once daily Lisinopril-Hydroch lorothiazide Active 1 TAB PO Daily April 27, [...] 1 tablet by mouth in the morning. Active Comment on above: Take 1 tablet by nicky th once daily. as needed for when pain increases Take 1 tablet by nicky th as needed. hydrOXYzine hydrochloride 50 mg oral tablet (20 sources) Antihistamine Start: 09-10-19 End: 12-05-19 take 1 tablet by mouth once daily as needed for anxiety hydrOXYzine HCl (Atarax) 50 MG tablet Indications: Generalized anxiety disorder TAKE 1 TABLET BY MOUTH DAILY NEEDED FOR ANXIETY 30 tablet 5 12/04/2024 Active Start: 06-10-2024 take 1 tablet by nicky th once daily as needed for anxiety hydrOXYzine HCl (Atarax) 50 MG tablet Indications: Generalized anxiety disorder (CMS/HCC) TAKE 1 TABLET BY MOUTH DAILY NEEDED FOR ANXIETY 30 tablet 2 06/10/2024 Active Start: 05-08-2024 take 1 tablet by nicky th once daily as needed for anxiety hydrOXYzine HCl (Atarax) 50 MG tablet Indications: Generalized anxiety disorder (CMS/HCC) TAKE 1 TABLET BY MOUTH DAILY NEEDED FOR ANXIETY 30 tablet 05/08/2024 Active Start: 04-13-2024 take 1 tablet by nicky th once daily as needed for anxiety hydrOXYzine HCl (Atarax) 50 MG tablet Indications: Generalized anxiety disorder (CMS/HCC) TAKE 1 TABLET BY MOUTH DAILY NEEDED FOR ANXIETY 30 tablet 04/13/2024 Active Start: 03-16-2024 take 1 tablet by nicky th once daily as needed for anxiety hydrOXYzine HCl (Atarax) 50 MG tablet Indications: Generalized anxiety disorder (CMS/HCC) TAKE 1 TABLET BY MOUTH DAILY NEEDED FOR ANXIETY 30 tablet 03/16/2024 Active Start: 02-05-2024 take 1 tablet by nicky th once daily as needed for anxiety hydrOXYzine HCl (Atarax) 50 MG tablet Indications: Generalized anxiety disorder (CMS/HCC) TAKE 1 TABLET BY MOUTH ONCE DAILY NEEDED FOR ANXIETY 30 tablet 02/05/2024 Active Start: 01-02-2024 take 1 tablet by nicky th once daily as needed for anxiety hydrOXYzine HCl (Atarax) 50 MG tablet Indications: Generalized anxiety disorder (CMS/HCC) TAKE 1 TABLET BY MOUTH DAILY NEEDED FOR ANXIETY 30 tablet 01/02/2024 Active Start: 08-26-2023 take 1 tablet by nicky th once daily as needed for anxiety hydrOXYzine HCl (Atarax) 50 MG tablet Indications: Generalized anxiety disorder (CMS/HCC) TAKE 1 TABLET BY MOUTH DAILY NEEDED FOR ANXIETY 30 tablet 08/26/2023 Active Start: 05-14-2023 End: 08-12-2023 take 1 tablet by mouth once daily [...] by mouth four times daily as needed. 10/09/2019 Active Start: 04-27-2019 take 50 mg [...] Inclisiran Sodium 284 MG/1.5ML solution prefilled syringe (20 sources) Start: 03-01-2023 End: 05-11-2024 Inclisiran Sodium 284 MG/1.5ML solution prefilled syringe Inject 284 mg under the skin. 03/01/2023 05/11/2024 Discontinued Start: 03-01-2023 Inclisiran Sod ium 284 MG/1.5ML solution prefilled syringe Inject 284 mg under the skin. 03/01/2023 Active Start: 03-01-2023 Inclisiran Sod ium 284 MG/1.5ML solution prefilled syringe Inject 284 mg under the skin. 0 03/01/2023 Active Insulin Aspart U-100 (Novolog Flexpen U-100 Insulin) 100 unit/mL (3 mL) Insulin Pen (3 sources) Start: 04-27-2019 Insulin Aspart U-100 (Novolog Flexpen U-100 Insulin) 100 unit/mL (3 mL) Insulin Pen Active 0 .ROUTE .COMPLEX April 27, 2019 1:00am sliding scale 150-200: 5u; 201-250: 10u; 251-300 15u; 301-350: 20u; 351-400: 25u 3 ml insulin aspart, human 100 unt/ml pen injector (20 sources) Insulin Analog Start: 11-18-2023 NovoLOG FLEXPE N 100 UNIT/ML pen Indications: Type 2 diabetes mellitus with hyperglycemia (HCC) INJECT 100 UNITS EVERY DAY via insulin pump 90 mL 1 11/18/2023 Active Start: 11-18-2023 inject 15-30 [IU] by subcutaneous injection at mealtime, then inject 90 [IU] by subcutaneous injection once daily Insulin Aspart FlexPen 100 UNIT/ML SOPN INJECT 15 - 30 UNITS SUBCUTANEOUSLY (UNDER THE SKIN) WITH meals plus sliding scale DIRECTED *max amount OF 90 UNITS DAILY 11/18/2023 Active Start: 03-06-2023 End: 05-11-2024 NovoLOG 100 UNIT/ML solution INJECT a max DAILY dose OF 80 UNITS in insulin pump 03/06/2023 05/11/2024 Discontinued Start: 11-14-2022 NovoLOG FLEXPE N 100 UNIT/ML pen INJECT 20-30 UNITS SUBCUTANEOUSLY THREE TIMES DAILY 0 11/14/2022 Active Start: 04-27-2019 Insulin Aspart U-100 (Novolog Flexpen U-100 Insulin) 100 unit/mL (3 mL) Insulin Pen Active 0 .ROUTE .COMPLEX April 27, 2019 12:00am sliding scale insulin aspart U -100 (NOVOLOG) 100 unit/mL Inject subcutaneously. Active End: 07-17-2022 insulin aspart U-100 (NOVOLO G) 100 unit/mL (3 mL) Novolog Flexpen U-100 Insulin aspart 100 unit/mL (3 mL) subcutaneous 0 07/17/2022 Discontinued NovoLOG 100 UNIT /ML Subcutaneous Active Comment on above: Novolog Flexpen U-10 0 Insulin aspart 100 unit/mL (3 mL) subcutaneous Inject subcutaneousl y. Insulin Disposable Pump (Omnipod 5 G6 Pod, Gen 5,) misc (20 sources) Start: 04-13-2023 End: 05-11-2024 Insulin Disposable Pump (Omnipod 5 G6 Pod, Gen 5,) [facility] 04/13/2023 05/11/2024 Discontinued Start: 04-13-2023 Insulin Dispos able Pump (Omnipod 5 G6 Pod, Gen 5,) [facility] 04/13/2023 Active Start: 04-13-2023 Insulin Dispos able Pump (Omnipod 5 G6 Pod, Gen 5,) [facility] [place] 3 ml insulin glargine 100 unt/ml pen injector (20 sources) Insulin Analog Start: 07-14-2024 Lantus SoloSta r 100 UNIT/ML pen 07/14/2024 Active Start: 04-08-2024 LANTUS SOLOSTA R 100 UNIT/ML injection pen INJECT 30 UNITS SUBCUTANEOUSLY (UNDER THE SKIN) TWICE DAILY 04/08/2024 Active Start: 04-27-2019 End: 01-08-2024 Insulin Glargine (Lantus Christiana ostar U-100 Insulin) 100 unit/mL (3 mL) Insulin Pen Discontinued 40 UNIT SUBCUT Twice daily April 27, 2019 1:00am January 08, 2024 10:20am Start: 04-27-2019 End: 07-17-2022 LANTUS SOLOSTAR U-100 INSULI N 100 unit/mL (3 mL) inject 35 units subqutaneously TWICE DAILY 0 10/09/2019 07/17/2022 Discontinued End: 01-02-2023 insulin glargine (LANTUS) 10 0 unit/mL injection Inject 35 Units subcutaneously. 0 01/02/2023 Discontinued Lantus SoloStar 100 UNIT/ML as directed Subcutaneous Active Comment on above: inject 35 units subq utaneously TWICE DAILY Inject 35 Units subc utaneously. 24 hr isosorbide mononitrate 30 mg extended release oral tablet (20 sources) Nitrate Vasodilator Start: 11-20-19 End: 02-07-20 take 1 tablet by mouth in the morning, then take 1 tablet by mouth every twenty-four hours isosorbide mononitrate ER (Imdur) 30 MG 24 hr tablet Take 30 mg by mouth in the morning. 11/19/2022 Active Kenalog 30 MG/ML (2 sources) Kenalog 30 MG/ML as directed Injection Active ketorolac tromethamine 10 mg oral tablet (20 sources) Nonsteroidal Anti-inflammatory Drug, Cyclooxygenase Inhibitor Start: 11-10-19 End: 01-23-20 take 1 tablet by mouth every six hours for pain ketorolac (Toradol) 10 MG tablet Indications: Radiculopathy, cervical region Take 1 tablet (10 mg) by mouth every 6 (six) hours if needed for moderate pain 20 tablet 2 12/23/2024 01/22/2025 Active Start: 08-05-2024 End: 08-10-2024 take 1 tablet by mouth every six hours as needed ketorolac (TORADOL) 10 MG tablet Take 1 tablet by mouth every 6 hours as needed 08/05/2024 Active Start: 02-26-2024 End: 03-02-2024 take 1 tablet by mouth every six hours for pain ketorolac (Toradol) 10 MG tablet Indications: Migraine without aura and without status migrainosus, not intractable (CMS/HCC) Take 1 tablet (10 mg) by mouth every 6 (six) hours if needed for moderate pain for up to 5 days 20 tablet 02/26/2024 03/02/2024 Active Start: 08-27-2022 inject 30 mg by intr amuscular injection every eight hours Ketorolac Active 30 MG IM Q8H August 27, 2022 12:00am Start: 03-13-2021 keTORolac (TOR ADOL) 30 mg/mL (1 mL) soln INJECT 1mL TWICE DAILY NEEDED 03/13/2021 Active Start: 04-27-2019 End: 08-27-2022 Ketorolac Discontinued 30 MG IM every 6 to 8 hours April 27, 2019 1:00am August 27, 2022 2:20pm Start: 04-24-2005 End: 07-17-2022 TORADOL 30 MG/ML INJECTION, CARTRIDGE Indications: Other general symptoms(780.99) Inject one every 8 hours as needed for headache 10 3 04/24/2005 07/17/2022 Discontinued ketorolac (TORAD OL) 30 MG/ML injection Inject 1 mL into the muscle every 6 hours as needed Active ketorolac (Torad ol) 30 MG/ML injection INJECT 1mL TWICE DAILY NEEDED 0 Active Comment on above: Inject one every 8 h ours as needed for headache INJECT 1mL TWICE KIRIT LY NEEDED ammonium lactate 120 mg/ml topical lotion (20 sources) Start: 12-03-19 19 ammonium lactate (LAC-HYDRIN) 12 % lotion ammonium lactate 12 % lotion 12/02/2018 Active Comment on above: ammonium lactate 12 % lotion levoFLOXacin 750 mg oral tablet (14 sources) Quinolone Antimicrobial Start: 10-13-19 End: 10-20-19 take 1 tablet by mouth once daily levoFLOXacin (Levaquin) 750 MG tablet Indications: Acute non-recurrent pansinusitis Take 1 tablet (750 mg) by mouth Daily for 7 days 7 tablet 10/12/2024 10/19/2024 Active Start: 09-16-2024 End: 09-23-2024 take 1 tablet by mouth once daily levoFLOXacin (Levaquin) 750 MG tablet Indications: Acute non-recurrent pansinusitis Take 1 tablet (750 mg) by mouth Daily for 7 days 7 tablet 09/16/2024 09/23/2024 Active Start: 08-05-2024 End: 08-12-2024 take 1 tablet by mouth once daily levoFLOXacin (Levaquin) 750 MG tablet Indications: Acute non-recurrent pansinusitis Take 1 tablet (750 mg) by mouth Daily for 7 days 7 tablet 08/05/2024 08/12/2024 Active Start: 05-11-2024 End: 05-18-2024 take 1 tablet by mouth once daily levoFLOXacin (Levaquin) 750 MG tablet Indications: Acute non-recurrent pansinusitis Take 1 tablet (750 mg) by mouth Daily for 7 days 7 tablet 05/11/2024 05/18/2024 Active 10 ml lidocaine hydrochloride 20 mg/ml injection (20 sources) Antiarrhythmic, Amide Local Anesthetic Start: 12-23-2024 lidocaine (Xylocaine) 2 % injection 40 mg Start: 10-22-2024 End: 10-22-2024 lidocaine (Xylocaine) 2 % in jection 100 mg Start: 10-22-2024 End: 10-22-2024 100 mg (5 mL), Intradermal, Once, On [facility] 10/22/24 at 0845, For 1 dose Start: 09-17-2024 End: 09-17-2024 lidocaine (Xylocaine) 2 % in jection 40 mg Start: 09-17-2024 End: 09-17-2024 40 mg (2 mL), Intradermal, O nce, On [facility] 09/17/24 at 0815, For 1 dose, Patient was seen on 12/11/2024 At 8:15am. Start: 09-10-2024 End: 09-17-2024 lidocaine (Xylocaine) 2 % in jection 40 mg Start: 07-16-2024 End: 10-22-2024 lidocaine (Xylocaine) 2 % in jection 20 mg Start: 02-26-2024 End: 02-26-2024 lidocaine (Xylocaine) 1 % in jection 10 mg Start: 02-26-2024 End: 02-26-2024 10 mg (1 mL), Injection, Onc e, On Sat02/26/24 at 1530, For 1 dose End: 07-17-2022 lidocaine (XYLOCAINE) 10 mg/ mL (1 %) injection lidocaine HCl 10 mg/mL (1 %) injection solution inj 0 07/17/2022 Discontinued lidocaine (XYLOC TABATHA) 10 mg/mL (1 %) injection lidocaine HCl 10 mg/mL (1 %) injection solution inj 0 Active Comment on above: lidocaine HCl 10 mg/ mL (1 %) injection solution inj magnesium oxide 400 mg oral tablet (20 sources) Start: 10-09-2019 take 1 tablet by mouth at bedtime magnesium oxide (Mag-Ox) 400 (241.3 Mg) MG tablet Take 400 mg by mouth at bedtime. 02/04/2022 Active Start: 04-27-2019 End: 01-08-2024 take 400 mg by mouth twice daily Magnesium Oxide Discontinued 400 MG PO Twice daily April 27, 2019 1:00am January 08, 2024 10:21am Comment on above: Take 1 tablet by [facility] once daily. Manganese Sulfate POWD (4 sources) Manganese Sulfat e POWD Take by mouth Active meclizine hydrochloride 25 mg oral tablet (20 sources) Antiemetic Start: take 1 tablet by mouth four times daily as needed meclizine (Antivert) 25 MG tablet Indications: Dizziness and giddiness TAKE 1 TABLET BY MOUTH FOUR TIMES DAILY NEEDED 120 tablet 5 11/09/2024 Active Start: 04-27-2019 End: 07-17-2022 take 1 tablet by mouth four times daily as needed meclizine (Antivert) 25 MG tablet Indications: Dizziness and giddiness TAKE 1 TABLET BY MOUTH FOUR TIMES DAILY NEEDED 120 tablet 5 02/25/2024 Active Start: 04-27-2019 take 25 mg by [...] Oral Twice daily April 27, 2019 6:43am medical marijuana (4 sources) medical marijuan a Take by mouth. Active metFORMIN hydrochloride 1000 mg oral tablet (20 sources) Biguanide Start: take 1 tablet by mouth twice daily metFORMIN (Glucophage) 1000 MG tablet Indications: Type 2 diabetes mellitus with hyperglycemia (HCC) TAKE 1 TABLET BY MOUTH TWICE DAILY 60 tablet 5 02/25/2024 Active take 1 tablet by nicky every twelve hours metFORMIN HCl 500 MG [...] Nov, Active metoclopramide 10 mg oral tablet (20 sources) Dopamine-2 Receptor Antagonist Start: 2023 take 1 tablet by mouth four times daily metoclopramide (Reglan) 10 MG tablet Indications: Dizziness and giddiness TAKE 1 TABLET BY MOUTH FOUR TIMES DAILY 120 tablet 5 09/25/2024 Active Start: 04-27-2019 take 1 tablet by nicky twice daily Metoclopramide Hcl (Reglan) 10 mg Tablet Active 10 MG PO Twice daily April 27, 2019 1:00am Start: 04-27-2019 take 1 tablet by nicky every six hours Metoclopramide Hcl (Reglan) 10 mg Tablet Active 10 MG PO Q6H April 27, 2019 1:00am metoprolol tartrate 25 mg oral tablet (20 sources) beta-Adrenergic Bella Start: 12-14-2024 End: 12-14-2025 metoprolol tartrate (Lopressor) 25 MG tablet Take 12.5 mg by mouth in the morning and 12.5 mg in the evening. 12/14/2024 12/14/2025 Active Start: 01-08-2024 End: 02-06-2025 metoprolol succinate (TOPROL XL) 25 MG extended release tablet Take 1 tablet by mouth 02/07/2024 02/06/2025 Active Start: 10-05-2022 End: 11-19-2023 metoprolol succinate ER (TOP ROL XL) 25 mg 24 hr tablet 10/05/2022 Active MOUNJARO 2.5 mg/0.5 mL pen injector (6 sources) Start: 04-06-2024 MOUNJARO 2.5 m g/0.5 mL pen injector Inject 5 mg subcutaneously. 04/06/2024 Active Start: 04-06-2024 MOUNJARO 2.5 m g/0.5 mL pen injector Inject 2.5 mg subcutaneously. 04/06/2024 Active MOUNJARO 5 MG/0.5ML SOAJ pen (4 sources) inject 5 mg by subcutaneous injection every week MOUNJARO 5 MG/0.5ML SOAJ pen INJECT 5mg SUBCUTANEOUSLY (UNDER THE SKIN) once a week Active Mounjaro 5 MG/0.5ML solution auto-injector (20 sources) Start: inject 5 mg by subcutaneous injection every week Mounjaro 5 MG/0.5ML solution auto-injector INJECT 5mg SUBCUTANEOUSLY (UNDER THE SKIN) once a week 06/23/2024 Active mupirocin 0.02 mg/mg topical ointment (1 source) RNA Synthetase Inhibitor Antibacterial Start: Mupirocin 2 % 1 application Externally Three times a day for 7 days Nov, Active Nirmatrelvir&Maurizio navir 300/100 (Paxlovid, 300/100,) 20 x 150 MG & 10 x 100MG tablet therapy pack (18 sources) Start: 024 End: 024 Nirmatrelvir&Ritonavi r 300/100 (Paxlovid, 300/100,) 20 x 150 MG & 10 x 100MG tablet therapy pack Indications: COVID-19 Take 1 Dose by mouth See administration instructions 1 each 01/22/2024 05/11/2024 Discontinued Start: 01-22-2024 Nirmatrelvir&R itonavir 300/100 (Paxlovid, 300/100,) 20 x 150 MG & 10 x 100MG tablet therapy pack Indications: COVID-19 Take 1 Dose by mouth See administration instructions 1 each 01/22/2024 Active nystatin 100 unt/mg topical powder (20 sources) Polyene Antifungal Start: 07-31-2022 nystatin (M ycostatin) 346679 UNIT/GM powder APPLY 1 application TO THE AFFECTED AREA(S) THREE TIMES DAILY (EXTERNALLY) 07/31/2022 Active End: 10-10-2022 take 5 mL [...] AREA(S) THREE TIMES DAILY OTC NUTRITIONAL SUPPLEMENT (20 sources) OTC NUTRITIONAL SUPPLEMENT Patient uses medical marijuana, gummies,powder. Active OTC NUTRITIONAL SUPPLEMENT Patient uses medical marijuana, gummies,powder. 0 Active Comment on above: Patient uses medical marijuana, gummies,powder. predniSONE 20 mg oral tablet (4 sources) Start: 03-25-20 End: 04-04-20 predniSONE (Deltasone) 20 MG tablet Indications: Trochanteric bursitis of both hips 3 pills po daily X3 days, then 2 pills po daily X3 days , then 1 pill po daily X3 days then stop 9 days ,18 pills 18 tablet 1 03/25/2024 04/04/2024 Active pregabalin 300 mg oral capsule (20 sources) Start: 12-02-19 End: 03-23-20 take 1 capsule by mouth in the morning, then take 1 capsule by mouth in the evening, then take 1 capsule by mouth at bedtime pregabalin (Lyrica) 300 MG capsule Indications: Lumbar spondylosis , Cervical spondylosis , Other nerve root and plexus disorders Take 1 capsule (300 mg) by mouth in the morning and 1 capsule (300 mg) in the evening and 1 capsule (300 mg) before bedtime. 90 capsule 2 12/23/2024 03/23/2025 Active Start: 11-10-2024 take 1 capsule by mo uth in the morning, then take 1 capsule by mouth in the evening, then take 1 capsule by mouth at bedtime pregabalin (Lyrica) 300 MG capsule Indications: Lumbar spondylosis , Cervical spondylosis , Other nerve root and plexus disorders TAKE 1 CAPSULE BY MOUTH IN THE MORNING then TAKE 1 CAPSULE BY MOUTH IN THE EVENING then TAKE 1 CAPSULE BY MOUTH BEFORE bedtime 90 capsule 2 11/10/2024 Active Start: 07-27-2024 End: 11-10-2024 take 1 capsule by mouth in the morning, then take 1 capsule by mouth in the evening, then take 1 capsule by mouth at bedtime pregabalin (Lyrica) 300 MG capsule Indications: Lumbar spondylosis , Cervical spondylosis , Other nerve root and plexus disorders Take 1 capsule (300 mg) by mouth in the morning and 1 capsule (300 mg) in the evening and 1 capsule (300 mg) before bedtime. 90 capsule 2 07/27/2024 11/10/2024 Discontinued Start: 06-02-2024 take 1 capsule by mo [facility] three times daily at bedtime pregabalin (Lyrica) 200 MG capsule Indications: Lumbar spondylosis , Cervical spondylosis , Other nerve root and plexus disorders TAKE 1 CAPSULE BY MOUTH THREE TIMES DAILY (IN THE MORNING, IN THE EVENING, BEFORE bedtime) 90 capsule 2 06/02/2024 Active Start: 11-20-2023 End: 06-02-2024 take 1 capsule by mouth in the morning, then take 1 capsule by mouth in the evening, then take 1 capsule by mouth at bedtime pregabalin (Lyrica) 200 MG capsule Indications: Lumbar spondylosis , Cervical spondylosis , Other nerve root and plexus disorders Take 1 capsule (200 mg) by mouth in the morning and 1 capsule (200 mg) in the evening and 1 capsule (200 mg) before bedtime. 270 capsule 02/26/2024 06/02/2024 Discontinued Start: 06-06-2023 End: 07-06-2023 take 1 capsule by mouth in the [...] capsule 2 06/06/2023 07/06/2023 Active Start: 04-27-2019 End: 01-08-2024 take 4 capsules by mouth three times daily Pregabalin (Lyrica) 50 mg Capsule Discontinued 200 MG PO Three times daily April 27, 2019 1:00am January 08, 2024 10:32am Start: 04-27-2019 take 1 capsule by mo [facility] three times daily Pregabalin (Lyrica) 50 mg Capsule Active 50 MG PO Three times daily April 27, 2019 1:00am take 1 capsule by mo [facility] every eight hours Lyrica 100 MG 1 capsule Orally TID Active Comment on above: Take 200 mg by mouth three times daily. pregabalin 200 mg ca psule TAKE 1 CAPSULE BY MOUTH THREE TIMES DAILY prochlorperazine 10 mg oral tablet (20 sources) Phenothiazine Start: 4 End: 4 10 mg, INTRAVENOUS, EVERY 4 HOURS NEEDED, 2 doses, Starting on Sat04/13/24 at 0920, Until Sat04/13/24 at 1324, Nausea/Vomiting - First Line - Parenteral, IV push over 2-5 minutes. If prochlorperazine PO order also exists, use prochlorperazine IV when patient is unable to tolerate PO. Protect From Light Start: 04-08-2024 take 25 mg rectal ro shayy every eight hours as needed prochlorperazine (COMPAZINE) 25 mg suppository 1 Suppository by RECTAL route every 8 hours as needed for nausea/vomiting. 20 Suppository 3 04/08/2024 Active Start: 04-08-2024 End: 04-08-2024 10 mg, INTRAVENOUS, EVERY 4 HOURS NEEDED, 2 doses, Starting on Sat04/08/24 at 0949, Until Sat04/08/24 at 1407, Nausea/Vomiting - First Line - Parenteral, IV push over 2-5 minutes. If prochlorperazine PO order also exists, use prochlorperazine IV when patient is unable to tolerate PO. Protect From Light Start: 04-27-2019 take 1 tablet by nicky every six hours as needed prochlorperazine (Compazine) 10 MG tablet Indications: Dizziness and giddiness TAKE 1 TABLET BY MOUTH EVERY 6 HOURS NEEDED 60 tablet 06/16/2024 Active Compazine 10 mg 1 tablet every 6 hrs prn Active Comment on above: Take 10 mg by mouth every 6 hours as needed. progesterone 100 mg oral capsule (20 sources) Progesterone Start: 07-21-19 End: 07-21-19 take 1 capsule by mouth once daily progesterone (Prometrium) 100 MG capsule Indications: Hormone imbalance , Hot flashes Take 1 capsule (100 mg) by mouth Daily 30 capsule 07/20/2024 07/20/2025 Active QULIPTA 60 mg tablet (20 sources) Start: 12-14-19 QULIPTA 60 mg tablet 12/13/2021 Active Start: 12-13-2021 QULIPTA 60 mg tablet Qulipta 60 MG tablet (1 source) Start: 12-08-2024 take 1 tablet by mouth once daily Qulipta 60 MG tablet Take 1 tablet by mouth Daily 12/08/2024 Active rimegepant 75 mg disintegrating oral tablet (20 sources) Start: 07-02-2023 take 1 tablet by mouth once as needed, then take 1 tablet by mouth every other day as needed Rimegepant Sulfate (Nurtec) 75 MG tablet dispersible Indications: Intractable chronic migraine without aura and without status migrainosus Take 75 mg by mouth if needed (once at onset of migraine every other day PRN) 16 tablet 11 07/02/2023 Active rosuvastatin calcium 20 mg oral tablet (20 sources) HMG-CoA Reductase Inhibitor Start: 01-08-2024 take 20 mg by mouth once daily Rosuvastatin Active 20 MG PO Daily January 08, 2024 12:00am Start: 07-29-2023 End: 02-06-2025 take 1 tablet by mouth in the morning rosuvastatin (Crestor) 40 MG tablet Take 40 mg by mouth in the morning. 07/29/2023 Active simvastatin 40 mg oral tablet (2 sources) HMG-CoA Reductase Inhibitor take 1 tablet by mouth every twenty-four hours Zocor 40 MG 1 tablet in the evening Orally Once a day for 30 day(s) Active thioctic acid 600 mg oral capsule (20 sources) Start: take 1 capsule by mouth once daily Alpha Lipoic Acid 600 mg cap Take 1 capsule by mouth once daily. 11/14/2020 Active Comment on above: Take 1 capsule by [facility] once daily. tiZANidine 4 mg oral tablet (20 sources) Central alpha-2 Adrenergic Agonist Start: End: 5 take 2 tablets by mouth every eight hours for muscle spasms tiZANidine (Zanaflex) 4 MG tablet Indications: Radiculopathy, cervical region Take 2 tablets (8 mg) by mouth every 8 (eight) hours if needed for muscle spasms 180 tablet 2 12/23/2024 01/22/2025 Active Start: 07-27-2024 End: 09-17-2024 take 2 tablets by mouth every eight hours as needed for muscle spasms tiZANidine (Zanaflex) 4 MG tablet Indications: Radiculopathy, cervical region TAKE 2 TABLETS BY MOUTH EVERY 8 HOURS NEEDED FOR MUSCLE SPASMS 180 tablet 2 09/17/2024 Active Start: 07-27-2024 tiZANidine (ZA NAFLEX) 4 MG tablet Take 1 tablet by mouth 07/27/2024 Active Start: 04-28-2024 take 2 tablets by mo [facility] every eight hours as needed for muscle spasms tiZANidine (Zanaflex) 4 MG tablet Indications: Radiculopathy, cervical region TAKE 2 TABLETS BY MOUTH EVERY 8 HOURS NEEDED FOR MUSCLE SPASMS 180 tablet 2 04/28/2024 Active Start: 12-09-2023 End: 03-08-2024 take 2 tablets by mouth every eight hours for muscle spasms tiZANidine (Zanaflex) 4 MG tablet Indications: Radiculopathy, cervical region Take 2 tablets (8 mg) by mouth every 8 (eight) hours if needed for muscle spasms 180 tablet 2 12/09/2023 Active Start: 06-06-2023 End: 07-17-2022 tiZANidine (Zanaflex) 4 MG t ablet Indications: Radiculopathy, cervical region TAKE 1 TABLET BY MOUTH IN THE MORNING, then TAKE 1 TABLET in the afternoon & TAKE 2 TABLETS AT BEDTIME DIRECTED 120 tablet 6 06/06/2023 Active Start: 08-27-2022 take 8 mg by mouth t hree times daily Tizanidine Active 8 MG PO Three times daily August 27, 2022 12:00am Start: 08-27-2022 take 8 mg by mouth o nce daily at bedtime Tizanidine Active 8 MG PO Daily at bedtime August 27, 2022 12:00am take 1 tablet by nicky every six hours as needed tiZANidine (ZANAFLEX) 4 mg tablet Take 4 mg by mouth every 6 hours as needed. Active tiZANidine (Jaswant flex) 2 MG tablet Take 4 mg by mouth at bedtime. 0 Active Comment on above: Take 4 mg by mouth e very 6 hours as needed. tizanidine 4 mg tabl et traMADol hydrochloride 50 mg oral tablet (8 sources) Opioid Agonist Start: End: take 1 tablet by mouth every six hours for pain traMADol (Ultram) 50 MG tablet Indications: Radiculopathy, cervical region , Lumbar spondylosis Take 1 tablet (50 mg) by mouth every 6 (six) hours if needed for severe pain for up to 5 days 15 tablet 12/23/2024 12/28/2024 Active Start: 08-05-2024 End: 08-10-2024 take 1 tablet by mouth every four hours as needed traMADol (ULTRAM) 50 MG tablet Take 1 tablet by mouth every 4 hours as needed. 08/05/2024 Active valACYclovir 1000 mg oral tablet (20 sources) Herpesvirus Nucleoside Analog DNA Polymerase Inhibitor, Herpes Simplex Virus Nucleoside Analog DNA Polymerase Inhibitor, Herpes Zoster Virus Nucleoside Analog DNA Polymerase Inhibitor Start: 03-31-2023 End: 05-11-2024 valACYclovir (Valtrex) 1 g tablet 03/31/2023 05/11/2024 Discontinued 24 hr venlafaxine 225 mg extended release oral tablet (20 sources) Serotonin and Norepinephrine Reuptake Inhibitor Start: 09-28-2024 take 1 tablet by mouth every twenty-four hours in the morning venlafaxine XR (Effexor XR) 225 MG 24 hr tablet Indications: Major depressive disorder, single episode, severe without psychotic features (HCC) TAKE 1 TABLET BY MOUTH IN THE MORNING 30 tablet 2 09/28/2024 Active Start: 06-16-2024 take 1 tablet by nicky th every twenty-four hours at mealtime venlafaxine XR (Effexor XR) 225 MG 24 hr tablet Indications: Major depressive disorder, single episode, severe without psychotic features (HCC) (CMS/HCC) TAKE 1 TABLET BY MOUTH IN THE MORNING with meals 30 tablet 2 06/16/2024 Active Start: 01-08-2024 take 225 mg by mouth once austyn y Venlafaxine Active 225 MG PO Daily January 08, 2024 12:00am Start: 06-04-2023 End: 09-02-2023 take 1 tablet by mouth every twenty-four hours at mealtime venlafaxine XR (Effexor XR) 225 MG 24 hr tablet Indications: Major depressive disorder, single episode, severe without psychotic features (HCC) (CMS/HCC) Take 1 tablet (225 mg) by mouth in the morning. Take with meals. 30 tablet 2 06/04/2023 Active Start: 04-27-2019 End: 07-17-2022 take 1 capsule by mouth every twenty-four hours venlafaxine ER (EFFEXOR XR) 150 mg 24 hr capsule Venlafaxine Active 150 MG Oral Daily April 27, 2019 6:43am 0 04/27/2019 07/17/2022 Discontinued Start: 04-27-2019 End: 01-08-2024 take 1 capsule by mouth once daily Venlafaxine (Effexor Xr) 150 mg Capsule,Extended Release 24hr Discontinued 225 MG PO Daily April 27, 2019 1:00am January 08, 2024 10:32am take 1 capsule by mo ut once daily venlafaxine ER (EFFEXOR XR) 150 mg 24 hr capsule Take 225 mg by mouth once daily. Active take 1 capsule by mo [facility] every twenty-four hours Effexor XR 75 MG 1 capsule with food Orally Once a day total of 225 Active Comment on above: Take 150 mg by mouth once daily. Venlafaxine Active 1 50 MG Oral Daily April 27, 2019 6:43am Take 225 mg by mouth once daily. warfarin sodium 5 mg oral tablet (1 source) Vitamin K Antagonist Start: 12-08-2024 take 1 tablet by mouth once daily warfarin (Coumadin) 5 MG tablet TAKE 1 TABLET BY MOUTH DAILY DIRECTED per [facility]mad[facility] clinic 12/08/2024 Active water 1000 mg/ml irrigation solution (1 source) Start: 12-17-2024 Water For Irrigation, Sterile (sterile water) irrigation 12/17/2024 Active Completed/Discontinued Medications Medication Drug Class(es) Dates Sig (Normalized) Sig (Original) acetaminophen 325 mg / oxyCODONE hydrochloride 10 mg oral tablet (6 sources) Opioid Agonist Start: 04-27-2019 End: 08-27-2022 [...] week amitriptyline hydrochloride 25 mg oral tablet (14 sources) Tricyclic Antidepressant Start: 04-27-20 End: 08-28-19 [...] 1 TABLET BY MOUTH AT BEDTIME amylase [id number] unt / lipase 26680 unt / protease [id number] unt delayed release oral capsule (20 sources) Start: End: take 1 capsule by mouth three times daily ZENPEP 40,000-126,000- 168,000 unit cpDR Take 1 capsule by mouth three times daily. 0 09/18/2019 07/17/2022 Discontinued End: 05-11-2024 take 1 capsule by mouth in the morning, then take 1 capsule by mouth in the evening, then take 1 capsule by mouth at bedtime pancrelipase, Gze-Wfir-Sqvf, (Zenpep) [id number] units capsule delayed-release particles capsule Take 1 capsule by mouth in the morning and 1 capsule in the evening and 1 capsule before bedtime. 05/11/2024 Discontinued Comment on above: Take 1 capsule by [facility] three times daily. Zenpep 40,000 unit-1 26,000 unit-168,000 unit capsule,delayed release TAKE 1 CAPSULE BY MOUTH THREE TIMES DAILY aspirin 81 mg chewable tablet (20 sources) Platelet Aggregation Inhibitor, Nonsteroidal Anti-inflammatory Drug Start: 07-27-2022 End: 09-11-2024 aspirin 81 mg chewable tablet CHEW 1 TABLET EVERY MORNING 07/27/2022 09/11/2024 Discontinued take 1 tablet by mouth once aspi rin 81 MG EC tablet Take 81 mg by mouth 1 (one) time. Active End: 07-17-2022 aspirin, enteric coated (ASP IRIN, ENTERIC COATED) 81 mg EC tablet Take 81 mg by mouth. 0 07/17/2022 Discontinued Comment on above: Take 81 mg by mouth. CHEW 1 TABLET EVERY MORNING 5 ml bupivacaine hydrochloride 5 mg/ml injection (20 sources) Amide Local Anesthetic Start: 10-08-2024 End: 10-08-2024 5 mg (1 mL), Infiltration, ONCE, 1 dose, On Sat10/08/24 at 1100 Start: 02-26-2024 End: 02-26-2024 bupivacaine (Marcaine) 0.5 % injection 5 mg Start: 02-26-2024 End: 02-26-2024 5 mg (1 mL), Injection, Once , On Sat02/26/24 at 1545, For 1 dose Start: 02-25-2023 End: 09-17-2024 bupivacaine PF (Marcaine) 0. 25 % injection 5 mg busPIRone hydrochloride 7.5 mg oral tablet (4 sources) Start: 04-27-2019 End: 08-27-2022 take 7.5 mg by mouth twice daily Buspirone Discontinued 7.5 MG PO Twice daily April 27, 2019 1:00am August 27, 2022 2:19pm cefTRIAXone (1 source) Cephalosporin Antibacterial Start: 12-31-2021 Ceftriaxone 500mg Dec, 500 mg citalopram 20 mg oral tablet (4 sources) Serotonin Reuptake Inhibitor Start: 04-27-2019 End: 08-27-2022 take 1 tablet by mouth once daily Citalopram (Celexa) 20 mg Tablet Discontinued 20 MG PO Daily April 27, 2019 1:00am August 27, 2022 2:20pm cyproheptadine hydrochloride 4 mg oral tablet (20 sources) Start: 08-27-2022 End: 09-11-2024 take 4 mg by mouth twice daily Cyproheptadine Discontinued 4 MG PO Twice daily August 27, 2022 12:00am January 08, 2024 10:20am Comment on above: Take 4 mg by mouth t wice daily at 6AM and 9PM. dexamethasone phosphate 4 mg/ml injectable solution (11 sources) Corticosteroid Start: 12-24-2024 End: 12-23-2024 dexAMETHasone sod phos (Decadron) injection 4 mg Start: 12-24-2024 End: 12-23-2024 4 mg (1 mL), Injection, Once , On Sondra 12/24/24 at 1145, For 1 dose Start: 10-22-2024 End: 10-22-2024 dexAMETHasone sod phos (Deca dron) injection 4 mg Start: 10-22-2024 End: 10-22-2024 4 mg (1 mL), Injection, Once , On Sondra 10/22/24 at 1400, For 1 dose Start: 09-17-2024 End: 09-10-2024 dexAMETHasone sod phos (Deca dron) injection 4 mg Start: 09-17-2024 End: 09-10-2024 4 mg (1 mL), Injection, Once , On Sondra 09/17/24 at 0815, For 1 dose Start: 04-13-2024 End: 04-14-2024 4 mg, INTRAVENOUS, ONCE, 1 d ose, On Sat04/14/24 at 0900, Administer over 5 minutes. Start: 04-08-2024 End: 04-08-2024 4 mg, INTRAVENOUS, ONCE, 1 d ose, On Sat04/08/24 at 1000, Administer over 5 minutes. Start: 02-26-2024 End: 02-26-2024 dexAMETHasone sod phos (Deca dron) injection 4 mg Start: 02-26-2024 End: 02-26-2024 4 mg (1 mL), Injection, Once , On Sat02/26/24 at 1530, For 1 dose diclofenac sodium 0.01 mg/mg topical gel (8 sources) Nonsteroidal Anti-inflammatory Drug Start: 09-13-2019 End: [...] AFFECTED AREA(S) EVERY 4 HOURS NEEDED (topically) diphenhydrAMINE (3 sources) Histamine-1 Receptor Antagonist Start: 04-14-2024 End: 04-14-2024 25 mg, INTRAVENOUS, NEEDED, 2 doses, Starting on Sat04/14/24 at 0847, Until Sat04/14/24 at 1259, Sedation/Dystonia/Akath isia/Anxiety 3rd line Start: 04-13-2024 End: 04-13-2024 25 mg, INTRAVENOUS, NEEDE D, 2 doses, Starting on Sat04/13/24 at 0920, Until Sat04/13/24 at 1036, Sedation/Dystonia/Akathisia/Anxiety 3rd line Start: 04-08-2024 End: 04-08-2024 25 mg, INTRAVENOUS, NEEDE D, 2 doses, Starting on Sat04/08/24 at 0949, Until Sat04/08/24 at 1407, Sedation/Dystonia/Akathisia/Anxiety 3rd line 2 ml famotidine 10 mg/ml injection (2 sources) Histamine-2 Receptor Antagonist Start: 04-14-2024 End: 04-14-2024 20 mg, INTRAVENOUS, NEEDED, 1 dose, Starting on Sat04/14/24 at 0917, Until Sat04/14/24 at 0917, Heartburn, REFRIGERATE Start: 04-08-2024 End: 04-08-2024 20 mg, INTRAVENOUS, NEEDE D, 1 dose, Starting on Sat04/08/24 at 1032, Until Sat04/08/24 at 1034, Heartburn, REFRIGERATE fluconazole 150 mg oral tablet (4 sources) Azole Antifungal End: 07-17-2022 take 1 tablet by mouth once fluconazole (DIFLUCAN) 150 mg tablet fluconazole 150 mg tablet TAKE 1 TABLET BY MOUTH 1 (ONE) time dose 0 07/17/2022 Discontinued Comment on above: fluconazole 150 mg t ablet TAKE 1 TABLET BY MOUTH 1 (ONE) time dose HYDROmorphone hydrochloride 4 mg oral tablet (7 sources) Opioid Agonist Start: 04-27-2019 End: 08-27-2022 take 1 tablet by mouth every six [...] mouth e very 8 hours as needed. insulin pump cart,auto,BT-cntr crtg (14 sources) End: 09-11-2024 insulin pump cart,auto,BT-cntr crtg Inject subcutaneously. Dr.Boujban Jorge Cardona 09/11/2024 Discontinued insulin pump car t,auto,BT-cntr crtg Inject subcutaneously. Dr.Boujban Jorge Cardona Active insulin pump car t,auto,BT-cntr crtg Inject subcutaneously. Dr.Boujban Jorge Cardona 0 Active Comment on above: Inject subcutaneousl y. Dr.Boujban Jorge Cardona lamoTRIgine 200 mg oral tablet (20 sources) Mood Stabilizer, Anti-epileptic Agent Start: 08-28-19 End: 01-08-20 24 take 200 mg by mouth once daily Lamotrigine Discontinued 200 MG PO Daily August 27, 2022 12:00am January 08, 2024 10:21am Start: 11-21-2020 End: 04-08-2024 take 1 tablet by mouth twice daily lamoTRIgine (LAMICTAL) 150 mg tablet Take 150 mg by mouth twice daily. 11/21/2020 04/08/2024 Discontinued Comment on above: Take 150 mg by mouth twice daily. Rpgpbn-Wzuindjr-Le ylase (Zenpep) 40,000-126,000- 168,000 unit Capsule,Delayed Release(Dr/Ec) (3 sources) Start: 08-27-2022 End: 01-08-2024 take [id number] capsules by mouth three times daily Odvhpx-Lzepuebm-Crhlia e (Zenpep) 40,000-126,000- 168,000 unit Capsule,Delayed Release(Dr/Ec) Discontinued 1 CAP PO Three times daily August 27, 2022 12:00am January 08, 2024 10:21am with meals Start: 08-27-2022 take [id number] ca psules by mouth three times daily Hstvqf-Anxhuusw-Wzpmlvn (Zenpep) 40,000-126,000- 168,000 unit Capsule,Delayed Release(Dr/Ec) Active 1 CAP PO Three times daily August 27, 2022 12:00am with meals 100 ml magnesium sulfate 10 mg/ml injection (3 sources) Start: 04-13-2024 End: 04-14-2024 1 g, INTRAVENOUS, at 100-200 mL/hr, Administer over 0.5-1 Hours, ONCE, 1 dose, On Sat04/14/24 at 0900, Magnesium sulfate iv bolus will be infused at a rate of 1 gram/hr The following nursing units may administer 2 g dose over 1 hour if necessary: ICUs/PACU/ED, Adult Hematology/Oncology, Labor and Delivery, Cardiac Stepdown, Headache Clinic If necessary, a magnesium sulfate bolus may be administered greater than 2 g/hr for the following indications: Adult and Pediatric Asthma Exacerbations, [place] de Pointes, Pediatric BMT and Hematology/Oncology, Eclampsia or Preeclampsia Start: 04-08-2024 End: 04-08-2024 1 g, INTRAVENOUS, at 100-200 mL/hr, Administer over 0.5-1 Hours, ONCE, 1 dose, On Sat04/08/24 at 1000, Magnesium sulfate iv bolus will be infused at a rate of 1 gram/hr The following nursing units may administer 2 g dose over 1 hour if necessary: ICUs/PACU/ED, Adult Hematology/Oncology, Labor and Delivery, Cardiac Stepdown, Headache Clinic If necessary, a magnesium sulfate bolus may be administered greater than 2 g/hr for the following indications: Adult and Pediatric Asthma Exacerbations, T[place] de Pointes, Pediatric BMT and Hematology/Oncology, Eclampsia or Preeclampsia meloxicam 15 mg oral tablet (4 sources) Nonsteroidal Anti-inflammatory Drug Start: 04-27-2019 End: 08-27-2022 take 1 tablet by mouth once daily Meloxicam (Mobic) 15 mg Tablet Discontinued 15 MG PO Daily April 27, 2019 1:00am August 27, 2022 2:20pm metaxalone 800 mg oral tablet (4 sources) Start: 04-27-2019 End: 08-27-2022 take 1 tablet by mouth three times daily Metaxalone (Skelaxin) 800 mg Tablet Discontinued 800 MG PO Three times daily April 27, 2019 1:00am August 27, 2022 2:20pm methocarbamol iv infusion 1,000 mg in NaCl 0.9% 100 mL (ROBAXIN) (3 sources) Start: 04-14-2024 End: 04-14-2024 1,000 mg, INTRAVENOUS, Administer over 30 Minutes, ONCE, 1 dose, On Sat04/14/24 at 0900, Administer IV while in recumbent position. Maintain position for at least 10-15 minutes following infusion. Start: 04-13-2024 End: 04-13-2024 1,000 mg, INTRAVENOUS, Admin ister over 30 Minutes, ONCE, 1 dose, On Sat04/13/24 at 0930, Administer IV while in recumbent position. Maintain position for at least 10-15 minutes following infusion. Start: 04-08-2024 End: 04-08-2024 1,000 mg, INTRAVENOUS, Admin ister over 30 Minutes, ONCE, 1 dose, On Sat04/08/24 at 1000, Administer IV while in recumbent position. Maintain position for at least 10-15 minutes following infusion. nabumetone 500 mg oral tablet (2 sources) Nonsteroidal Anti-inflammatory Drug Start: 09-05-2022 End: 01-02-2023 take 1 tablet by mouth every twelve hours as needed nabumetone (RELAFEN) 500 mg tablet Take 500 mg by mouth twice daily as needed. 0 09/05/2022 01/02/2023 Discontinued Comment on above: Take 500 mg by mouth twice daily as needed. 2 ml ondansetron 2 mg/ml injection (1 source) Serotonin-3 Receptor Antagonist Start: 04-14-2024 End: 04-14-2024 8 mg, INTRAVENOUS, ONCE, 1 dose, On Sat04/14/24 at 0930, Give IV push over 2 minutes Start: 04-14-2024 End: 04-14-2024 8 mg, INTRAVENOUS, ONCE, 1 d ose, On Sat04/14/24 at 0930, Give IV push over 2 minutes OXcarbazepine 300 mg oral tablet (4 sources) Anti-epileptic Agent Start: 04-27-2019 End: 08-27-2022 take 1 tablet by mouth twice daily Oxcarbazepine (Trileptal) 300 mg Tablet Discontinued 300 MG PO Twice daily April 27, 2019 1:00am August 27, 2022 2:21pm oxyCODONE hydrochloride 5 mg oral tablet (2 sources) Opioid Agonist Start: 09-20-2022 End: 01-02-2023 take 1 tablet by mouth once daily oxyCODONE IR (ROXICODONE) 5 mg immediate release tablet Take 5 mg by mouth once daily. 0 09/20/2022 01/02/2023 Discontinued Comment on above: Take 5 mg by mouth o nce daily. promethazine hydrochloride 25 mg oral tablet (4 sources) Phenothiazine End: 07-17-2022 promethazine (PHENERGAN) 25 mg tablet promethazine 25 mg tablet 0 07/17/2022 Discontinued Comment on above: promethazine 25 mg t ablet 1000 ml sodium chloride 9 mg/ml injection (2 sources) Start: 04-14-2024 End: 04-14-2024 1,000 mL, INTRAVENOUS, at 999 mL/hr, Administer over 1 Hours, ONCE, 1 dose, On Sat04/14/24 at 0900 Start: 04-08-2024 End: 04-08-2024 1,000 mL, INTRAVENOUS, at 99 9 mL/hr, Administer over 1 Hours, ONCE, 1 dose, On Sat04/08/24 at 1000 topiramate 100 mg oral tablet (14 sources) Start: 08-01-2016 End: 08-27-2022 take 1 tablet by mouth three times [...] mg traZODone hydrochloride 50 mg oral tablet (7 sources) Serotonin Reuptake Inhibitor Start: 05-23-2023 End: 08-21-2023 traZODone (Desyrel) 50 MG tablet Indications: Insomnia, unspecified type Take 2 tablets (100 mg) by mouth as needed at bedtime for sleep 60 tablet 2 05/23/2023 06/20/2023 Discontinued take 1 tablet by mouth once austyn y traZODone (DESYREL) 50 MG tablet Take 1 tablet by mouth nightly Active Problems Active Problems Problem Classification Problem Date Documented Da te Episodic/Chronic Anxiety disorders (20 sources) Generalized anxiety disorder; 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: [Generalized anxiety disorder] Onset: 08-29-2022 Resolved: 06-20-2023 09-21-2022 Chronic Asthma (20 sources) Unspecified asthma, uncomplicated; 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: [Mild intermittent asthma] Onset: 04-02-2022 12-11-2022 Chronic Chronic obstructive pulmonary disease and bronchiectasis (20 sources) Asthma-chronic obstructive pulmonary disease overlap syndrome; 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: [Chronic obstructive pulmonary disease, unspecified] Onset: 04-24-2005 Resolved: 06-20-2023 04-24-2005 Chronic Coronary atherosclerosis and other heart disease (20 sources) Unstable angina; 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: [Coronary arteriosclerosis] Onset: 07-06-2022 12-11-2022 Chronic Delirium, dementia, and amnestic and other cognitive disorders (20 sources) Postconcussion syndrome; 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: [Postconcussional syndrome] Onset: 02-28-2021 12-11-2022 Chronic Diabetes mellitus with complications (20 sources) Type 2 diabetes mellitus with other specified complication; 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: [Type 2 diabetes mellitus with hyperglycemia] Onset: 11-16-2021 Resolved: 06-20-2023 Chronic Disorders of lipid metabolism (20 sources) Mixed hyperlipidemia; 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: [Pure hypercholesterolemia , unspecified] Onset: 04-02-2022 Resolved: 05-11-2024 12-11-2022 Chronic Disorders usually diagnosed in infancy, childhood, or adolescence (20 sources) Attention deficit hyperactivity disorder, predominantly inattentive type; 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: [Other specified behavioral and emotional disorders with onset usually occurring in childhood and adolescence] Onset: 06-20-2023 06-20-2023 Chronic Essential hypertension (20 sources) Essential (primary) hypertension; 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: [Benign essential hypertension] Onset: 04-02-2022 12-11-2022 Chronic Gastrointestinal hemorrhage (4 sources) Rectal hemorrhage; 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: [Hemorrhage of anus and rectum] 04-27-2019 Episodic Headache; including migraine (20 sources) Chronic intractable migraine without aura; 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: [Chronic migraine without aura, intractable, without status migrainosus] Onset: 04-24-2005 Resolved: 05-11-2024 Chronic Headache; including migraine (1 source) Headache; including migraine; 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: [Chronic daily headache] Onset: 12-04-2024 Mood disorders (20 sources) Severe major depression, single episode, without psychotic features; 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: [Major depressive disorder, single episode, severe without psychotic features] Onset: 08-29-2022 Resolved: 06-20-2023 09-21-2022 Chronic Nonmalignant breast conditions (4 sources) Unspecified lump in unspecified breast; 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: [UNSPECIFIED LUMP IN UNSPEC BREAST] Onset: 08-28-2022 Episodic Nonspecific chest pain (4 sources) Chest pain, unspecified; 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: [CHEST PAIN UNSPECIFIED] Onset: 06-26-2022 Episodic Other aftercare (3 sources) [facility] (current) use of oral hypoglycemic drugs; 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: [[employer] USE ORAL HYPOGLYCEMIC DX] Onset: 04-02-2022 Episodic Other aftercare (2 sources) Long-term current use of insulin; 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: [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] 06-20-2023 Episodic Other connective tissue disease (20 sources) Bilateral trochanteric bursitis; 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: [Trochanteric bursitis, right hip] Onset: 12-17-2022 12-17-2022 Episodic Other endocrine disorders (1 source) Polycystic ovarian syndrome; 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: [POLYCYSTIC OVARIAN SYNDROME] Onset: 04-02-2022 Chronic Other endocrine disorders (20 sources) Polycystic ovary; 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: [Polycystic ovarian syndrome] Onset: 02-15-2009 12-11-2022 Chronic Other lower respiratory disease (1 source) Other forms of dyspnea; 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: [OTHER FORMS OF DYSPNEA] Onset: 07-30-2022 Episodic Other nervous system disorders (1 source) Complex regional pain syndrome I, unspecified; 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: [COMPLEX REGION PAIN SYND I UNS] Onset: 04-02-2022 Chronic Other nervous system disorders (20 sources) Brachial plexus disorder; 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: [Brachial plexus disorders] Onset: 12-11-2022 12-11-2022 Chronic Other nervous system disorders (20 sources) Complex regional pain syndrome type I; 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: [Complex regional pain syndrome I, unspecified] Onset: 12-11-2022 12-11-2022 Chronic Other nervous system disorders (20 sources) Chronic pain syndrome; 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: [Chronic pain syndrome] Onset: 06-27-2018 Resolved: 04-19-2023 04-19-2023 Chronic Other nervous system disorders (20 sources) Disorder of nerve root and/or plexus; 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: [Other nerve root and plexus disorders] Onset: 08-06-2023 08-06-2023 Chronic Other skin disorders (4 sources) Localized swelling, mass and lump, trunk; 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: [LOCALIZD SWELLING MASS AND LUMP TRUNK] Onset: 07-10-2022 Episodic Pancreatic disorders (not diabetes) (20 sources) Idiopathic chronic pancreatitis; 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: [Other chronic pancreatitis] Onset: 05-11-2024 05-11-2024 Chronic Residual codes; unclassified (1 source) Family history of malignant neoplasm of breast; 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: [FAMILY HX MALIG NEOPLASM OF BREAST] Onset: 09-02-2022 Episodic Residual codes; unclassified (2 sources) Pain; 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: [Pain, unspecified] 10-08-2024 Episodic Residual codes; unclassified (1 source) Pain, unspecified; 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: [Pain, unspecified] Onset: 10-08-2024 Episodic Spondylosis; intervertebral disc disorders; other back problems (20 sources) Degeneration of lumbosacral intervertebral disc; 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: [Other intervertebral disc degeneration, lumbosacral region] Onset: 02-28-2021 Resolved: 06-20-2023 12-11-2022 Chronic Spondylosis; intervertebral disc disorders; other back problems (20 sources) Cervico-occipital neuralgia; 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: [Occipital neuralgia] Onset: 11-07-2016 Resolved: 07-15-2023 11-07-2016 Episodic Substance-related disorders (20 sources) Nicotine dependence, unspecified, uncomplicated; 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: [Nicotine dependence, cigarettes, uncomplicated] Onset: 11-16-2021 12-11-2022 Chronic Unclassified (2 sources) COUGH, UNSPECIFIED; 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: [COUGH, UNSPECIFIED] Onset: 11-16-2021 Unclassified (1 source) PRECERT- RIGHT MBB L345 #1 10-08-2024 Unclassified (1 source) Obesity, class 1; 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: [Obesity, class 1] Onset: 09-22-2024 Viral infection (1 source) COVID-19; 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: [COVID-19] Onset: 11-16-2021 Past or Other Problems Problem Classification Problem Date Documented Da te Episodic/Chronic Abdominal pain (8 sources) Unspecified abdominal pain; 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: [Epigastric pain] Onset: 03-28-2022 Episodic Cardiac dysrhythmias (2 sources) Palpitations; 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: [Palpitations] Onset: 08-12-2024 Episodic Conditions associated with dizziness or vertigo (20 sources) Vertigo; 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: [Dizziness and giddiness] Onset: 08-29-2022 Resolved: 04-19-2023 12-11-2022 Episodic Coronary atherosclerosis and other heart disease (2 sources) Presence of coronary angioplasty implant and graft; 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: [Presence of coronary angioplasty implant and graft] Onset: 08-29-2022 Episodic Diabetes mellitus without complication (20 sources) Type 2 diabetes mellitus without complications; 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: [Diabetes mellitus] Onset: 04-02-2022 Resolved: 04-19-2023 04-19-2023 Chronic Fracture of upper limb (20 sources) Fracture of ulna; 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: [Unspecified fracture of shaft of unspecified ulna, initial encounter for closed fracture] Onset: 01-30-2016 Resolved: 06-20-2023 12-11-2022 Episodic Genitourinary symptoms and ill-defined conditions (20 sources) Dysuria; 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: [Dysuria] Onset: 12-13-2023 Resolved: 05-11-2024 12-13-2023 Episodic Headache; including migraine (20 sources) Chronic daily headache; 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: [Chronic daily headache] Onset: 06-27-2018 Resolved: 06-20-2023 Episodic Mood disorders (20 sources) Mood disorders Onset: 03-11-2023 Resolved: 08-10-2024 03-11-2023 Osteoarthritis (20 sources) Osteoarthritis; 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: [Unspecified osteoarthritis, unspecified site] Onset: 08-29-2022 Resolved: 06-20-2023 12-11-2022 Chronic Other 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 (3 sources) 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; 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: [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 OF 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 CURRENT USE OF INSULIN] Onset: 04-02-2022 Episodic Other aftercare (1 source) Other snf (current) drug therapy; 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: [OTH DOCTOR OF VETERINARY MEDICINE CURRENT DRUG THERAPY] Onset: 04-02-2022 Episodic Other aftercare (20 sources) Long-term current use of drug therapy; 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: [Other snf (current) drug therapy] Onset: 08-10-2024 08-10-2024 Episodic Other and unspecified benign neoplasm (20 sources) Lipoma of lower back; 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: [Benign lipomatous neoplasm of skin and subcutaneous tissue of trunk] Onset: 12-25-2022 Resolved: 06-20-2023 12-25-2022 Episodic Other complications of (20 sources) Maternal obesity complicating , childbirth and the puerperium, antepartum; 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: [Obesity complicating , unspecified trimester] Onset: 04-19-2009 Resolved: 06-20-2023 12-11-2022 Chronic Other complications of (20 sources) Tobacco use in mother complicating ; 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: [Smoking (tobacco) complicating , unspecified trimester] Onset: 02-15-2009 Resolved: 06-20-2023 12-11-2022 Episodic Other connective tissue disease (20 sources) Adhesive capsulitis of left shoulder; 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: [Adhesive capsulitis of left shoulder] Onset: 08-29-2022 Resolved: 06-20-2023 12-11-2022 Episodic Other connective tissue disease (20 sources) Enthesopathy of hip region; 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: [Other specified enthesopathies of unspecified lower limb, excluding foot] Onset: 12-11-2022 Resolved: 06-20-2023 12-11-2022 Episodic Other connective tissue disease (20 sources) Muscle pain; 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: [Myalgia, unspecified site] Onset: 12-11-2022 Resolved: 06-20-2023 12-11-2022 Episodic Other connective tissue disease (1 source) Neuropathic pain; 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: [Neuralgia and neuritis, unspecified] Onset: 08-29-2022 12-11-2022 Episodic Other connective tissue disease (20 sources) Spasm of cervical paraspinous muscle; 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: [Other muscle spasm] Onset: 12-17-2022 Resolved: 07-15-2023 04-01-2023 Episodic Other connective tissue disease (20 sources) Trochanteric bursitis of right hip; 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: [Trochanteric bursitis, right hip] Onset: 08-06-2023 08-06-2023 Episodic Other connective tissue disease (20 sources) Trochanteric bursitis of left hip; 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: [Trochanteric bursitis, left hip] Onset: 08-06-2023 08-06-2023 Episodic Other ear and sense organ disorders (2 sources) Cellulitis of left external ear Onset: 12-09-2021 Resolved: 12-31-2021 Episodic Other eye disorders (20 sources) Disorder of optic nerve; 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: [Other disorders of optic nerve, not elsewhere classified, unspecified eye] Onset: 08-29-2022 Resolved: 06-20-2023 12-11-2022 Chronic Other female genital disorders (20 sources) Disorder of female genital organs; 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: [Other specified conditions associated with female genital organs and menstrual cycle] Onset: 12-11-2022 Resolved: 06-20-2023 12-11-2022 Episodic Other female genital disorders (20 sources) Vaginal dryness; 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: [Other specified noninflammatory disorders of vagina] Onset: 12-11-2022 Resolved: 06-20-2023 12-11-2022 Episodic Other gastrointestinal disorders (1 source) Constipation, unspecified; 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: [CONSTIPATION UNSPECIFIED] Onset: 04-02-2022 Episodic Other lower respiratory disease (20 sources) Dyspnea; 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: [Shortness of breath] Onset: 04-02-2022 Resolved: 06-20-2023 12-11-2022 Episodic Other lower respiratory disease (20 sources) Dyspnea on exertion; 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: [Other forms of dyspnea] Onset: 07-06-2022 Resolved: 04-19-2023 04-19-2023 Episodic Other non-traumatic joint disorders (20 sources) Pain of left shoulder joint; 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: [Pain in left shoulder] Onset: 09-14-2020 Resolved: 06-20-2023 12-11-2022 Episodic Other screening for suspected conditions (not mental disorders or infectious disease) (20 sources) Thyroid hormone tests abnormal; 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: [Other specified abnormal findings of blood chemistry] Onset: 08-10-2024 08-10-2024 Episodic Other skin disorders (20 sources) Mass of skin of back; 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: [Localized swelling, mass and lump, trunk] Onset: 12-25-2022 Resolved: 06-20-2023 12-25-2022 Episodic Other upper respiratory infections (20 sources) Acute pansinusitis; 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: [Acute pansinusitis, unspecified] Onset: 05-11-2024 Resolved: 08-10-2024 05-11-2024 Episodic Residual codes; unclassified (1 source) Acquired absence of other specified parts of digestive tract; 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: [ACQ ABSENCE OTH PART DIGESTV TRACT] Onset: 04-02-2022 Episodic Residual codes; unclassified (20 sources) Insomnia; 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: [Insomnia, unspecified] Onset: 09-21-2022 09-21-2022 Episodic Residual codes; unclassified (20 sources) Bilateral lower limb edema; 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: [Localized edema] Onset: 07-06-2022 12-11-2022 Episodic Residual codes; unclassified (20 sources) FH: premature coronary heart disease; Translations: [Family history of ischemic heart disease and other diseases of the circulatory system] Onset: 07-06-2022 Resolved: 06-20-2023 12-11-2022 Episodic Residual codes; unclassified (20 sources) Memory impairment; Translations: [Other amnesia] Onset: 05-25-2020 Resolved: 06-20-2023 12-11-2022 Episodic Unclassified (1 source) COUGH, UNSPECIFIED; Translations: [COUGH, UNSPECIFIED] Onset: 11-15-2021 Unclassified (1 source) Obesity, class 1; Translations: [Obesity, class 1] Onset: 09-22-2024 Results Test Name Value Interpretation Reference Range Facility Employee Health Noteon 12-24 Employee Health Note [id number] [facility] [id number] 0 [id number] #[facility] 12-10 Employee Health Note [id number] 57[facility]-04-2024 CNOV Office Visit (NHDBEC) JACQUELYN ZENG ([id number]) 1975 F Date Time Provider Department 12/04/24 9:00 AM KINGA MENDES [facility] During your visit today, we recorded the following information about you: Temperature Pulse Respiration Blood pressure 97.5 degrees 98/minute 21/minute 116/71 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, 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 Still has a daily headaches, but only 4 in the last 12 weeks required treatment. Impression: Intractable chronic migraine without aura and without status migrainosus (primary encounter diagnosis) Chronic daily headache Plan: - Botox today (see procedure note below) Follow-Up Onabotulinum Toxin A (BotoxTM) for Migraine Indication: Chronic Intractable Migraine Treatment #: 10 Referral Expiration: 01/28/2025 Prior to the initiation of the FIRST [...] infection at proposed injection site. HEADACHE SCORES: 06/08/2021 09/07/2021 Headache Questions ER visits since last office visit: 0 0 Hospital stays since last office visit 0 0 Limited ADLs in the last month: 26 14 Days missed from work or school in the last month: 26 Days headache pain free in the last [...] last visit: Very much worse Much improved 06/08/2021 09/07/2021 HIT-6 HIT-6 78 (Severe impact) 65 (Severe impact) 06/08/2021 09/07/2021 MAYNOR - 2/7 SCORES MAYNOR-2 Score 1 3 MAYNOR-7 Score 11 11/07/2016 06/08/2021 09/07/2021 PHQ-9 Score 17 15 17 BP 116/71 Pulse 98 Temp 36.4 ?C (97.5 ?F) (Oral) Resp 21 Patient name: Jacquelyn Zeng : 1975 ALLERGIES Allergen Reactions Desonide Other: See Comments patient unaware but hx of TBI so she may not recall Latex Anaphylaxis, Itching Ciprofloxacin Unknown Codeine Hives Compazine [Prochlor* Intolerance Restless Erythromycin Hives Latex Itching Penicillin V Hives Sulfa (Sulfonamide * Hives UNIVERSAL PROTOCOL / SAFETY CHECKLIST Procedure: Onabotulinum toxin A for migraine Informed Consent Consent Obtained: Written [place] Protocol A moment to CARE was completed SIGN IN Personnel directly involved with the procedure wore the appropriate PPE Special Equipment: N/A Patient/Surrogate Stated/Verified: Patient name, Date of , Relevant allergies and Intended procedure TIME OUT No relevant labs, photos, and/or imaging studies were applicable for review. Consent documented and matches the intended procedure No correct side/site applicable for marking and visibility. Medications required for procedure verified. No fire risk assessment and interventions applicable. No implant(s) inserted. SIGN OUT No specimen collected. Written Consent Obtained: Written LOT #: [id number] Expiration Date: Month: Year: 2026 Injection Sites Left (Units) Left (Sites) Right (Units) Right (Sites) TOTAL (Units) Emergency Medical Service Coordinator 5 1 5 1 10 Procerus Units: [...] Units used: 200 Total Units wasted: 0 (more content not included)... Normal [facility] Refillon 12-04-2024 Refill [id number] Jacquelyn Zeng 1975 F Date Provider Department Center 12/04/2024 JOSE FRANCISCO PHAM [facility] END[facility]CR [facility] Family History Problem Relation Age of Onset Coronary artery disease Mother Heart attack Mother Cancer Mother Heart attack Father 54 Family Status - Relation Status Age at Mother Father Reason for Visit and Comments: Med Refill [[id number]] Normal [facility] Coding Summaryon 11-11-2024 Coding Summary HTMLBase 64 StpnbfysHEs5yLw+PGhl YWQ+MG2DGYRgX02yhZNe qB8rW1ILHXjOMzscKEZS ZXxOYeInstHqXZ8ciXBs ZXJu IC8+VY4pPGRsZdxhxHCx j8I9oJH1G18bjz4pNQwi yZX3BFArPzTseiwwi1nq yTl7GLymTdhhOaFx DWJpmR13GTY0yB04Sv26 lSEzqEDov8grvDu7DkGm GBPeQMA6cDlyGOpam8Nj AOYjM18ysBJac8J7 IGNvbGxhcHNlOyBlbXB0 jW6lJQwcwyjtj2jxurvy Xao8dj85bPMwm4I5rWZ2 L4ElmmY3YVGecPXe JkyvjKSSzC8nykzyn0ev xywxDuYsQMFbAHb4OJt2 FPWgtIaoLzBfDN85MSL6 LGJgmdHzB4UaSVWg zExkTnZ4j7F4Ls6QA9KE FltlC8JDGYCECRlgcZY+ ET61ji71R8HkZdjlPyy5 BHCaZFP9aYQ2gT3r VTXaCAntu4I9sFI4V0Wz xbQlrp9cb6ajXOTeHNsr L78bzELme4L4ALUfiZR1 ANLjnJerQhBcmT63 Oyc+NUWolIuem1CdTpyg t2xec4jhjMz8TxvtENDv iyNmgYzwYLK5z4PmSu9n XVQbmOX0oSH8rT0k QaQfWcV0YFjsT761HoRj aWCdYvznN97qE3MbuWL+ HUZpNsk3TAKpwAbnXF7s I2CqJAIjynpmlGKj kRhuXX7bFIKytsneATWv vH6bQZUiS8e7HoIdQvJ9 OUrjG9TzHMClnolaOz08 uQ6yNdGhSjW7JTch I2OyuhN7UCOpyREdRWqm YXE8I61zi7T9YSPiNCDy CBJ8dHK2mM0ovGumymiz bGVmdDsgdmVydGlj XJhbZRjvW504UVEsbZxv PkNvZGluZyBEYXRlOiAg MDcvMDIvMjAyNTwvdGQ+ IQMrMNK6qJnxUNQq wJBkDVqrVj4zqBbnmHfb QE4sUFLbdoucEPUngZ7d EWZasUCcsKmdRF6iNBBz hoojl474TaLnCOJ6 YUKgxTLyZ7EdhL6jUmSh HXRnHNJsU8MwzCZyQSpm S028DXgsYyI1YCQnruXx J6RsAAYwmYiqClZ3 q3O1Ny8Pm9IdclsfY1Bc eGZiBbVhQdlyMVe6C7Oq PjwvdHI+OE65JCDfMQ67 IId2JIS3oGpgOPii RRFqT2ApzT3wHwPqZYWj ZGRkOyc+PHRhYmxlIHdp ZHRoPScxMDAlJyBzdHls GI3fSn4qFSZeTGVr zIwybIOsPiTsg8uqDOEz VRzlIT6piYkdR1PjiCK6 ZQBoi4o3Dw08A33aG8Cx dXA+NECtbXT4iEE4 eD1pTwEmRgL3WVtqI048 HdDgmTNxQxiwl5hmr5rm yKo2DrS8YNHfdsNggIhv HGK8i7LlZc35O75s IHdpZHRoPSIxNSUiIHZh aQmzpa9jvE8qGz9+PGNv pVO5rVP8fB6pBxEfStD8 MGhfD941XzCyjYBo Petqz0acs0pyyAb2UgKd LDSbdmQstNxhTZV9i6Jv Ba91T6VlrCqtb2IpNpa7 kt85uSQvo2A6hOP4 R4SgOYKkvmwcnEDveEof AC2gENLlkaveQNKnyB4h RFLlE0k9TdFyOhG7DVgh C5FcpbL5VAGzqTMd TRFjsKJKjA0qjiora1rw vcjcQsEzNUTpWTx8UDw1 FIJehFhbTxOeUZS3CpM7 YCU0lCLhaI4ovStd njperF4lKyv+CCT6vDLm fJSMEB9uLeqjuKH+PHRk BFK8fOcaSYfdSOKzcF8s MKIxR0h9MhWuCfQ4 MVjcZ7OmlzZ0XLHoxKFs LPQlsCVUdL5shwzjc3bj hrbfFnGcKOEzQQp7NYn1 LWFsaWduOiBsZWZ0 SbW7ZOP4qUAbmZ0poVnf qedeiU1jEnp+QmlydGgg WUL8GMm1K8HkYya6YZAo dHdaUF1wtCEaBInt Cf4llXwapLqcHQ6tAFFa cgedw794TrPbc3siFBVc bUSgEPchTHK9J09du8Y8 KXJpFOGjDKY9oYI1 kX8ggOxzorjnnMWztZke kmZcqDnoZDkuZPthE840 EPNomLxmMvPoSJt3R4Rx Obo8UESfsIdkHH0x bRNgAQctYz9lwArwpPvf GZ9vXEIcwmipx824DyUc b4ohMGUcyJHmELxfWOQ4 J74vi4X9VHUlAAFd YDY6dBG7gC6ueDhkyslz bGVmdDsgdmVydGljYWwt VIxaE547WBYouFaoOrBx nBf5J0PpSpy3OELb hBqxIW0akRLsWZnfTo6o mSlvmFgqIJ2hGXKjomfr c610EtCkx9wuICUwkDTt KTacHDI6C74fx7I9 ILBqDRYoJHI2nVZ4fZ8e bGlnbjogbGVmdDsgdmVy pRmdJKxjOZdkZ982OLBa cDsnPlBhdGllbnQg VTfqZNq0E9KbCcdrzYB+ EC47MDVdXM02iKGewXCw h2ujfNd4WoUaUEDbYBW1 vVtlJYdem4AxAEJl H82qeHZyq9T4DMKpvMrm iHExNvWunPG8oS1lJQek kswjc1rsegneXpzea8xs zj74xN80D74cSCwk ZHRoPSIzMCUiIHZhbGln zz6bwY5rTo2+PGNvbCB3 gYG2nZ6gSFRiShA7CXtg Q846XxBtnVLjTwdn n2cnj5wjuVt9AsS0CPNb ctZkqXhwPNU6w7YtYu08 F18qTCbhZWTtLEXcDNKd BAQhbPhjeg1rqI1z Ii8+HKEvtBI6kJM5dS6n IiUvNhL8OLmdU217ZwNj jELzPapuM49iY6EkjXN+ AACnFos4FDNbjLwi KJ3tyYLfJOmzHx0bYPV6 WgMlGlDlAVplT6BjUGGr rloqlcmdfTX6GCYgSFXl gA78Vk0nfTmeZLBj hQVCjL1bpmhgp9fgplnl SvWqKJUwBZi9EHn6XRWn xOxqCwPuSAF5RgW8NSF7 yLMfbB1rcYhvqbox sO4qL3LbVJJsiwuiTj08 dI3lDfNaYyT0UYhbVps+ ZE1ZNT1MVJOFPFdtLVGL NJM0A5ZaJxh9UXSm dHlqXU1uoUKsIRazCt7w yTqriUxfHL4iZQTrtorm HAVnmK0jPVGvqUYyvNsz PT9rFBJifrndq992 TmGvDLR6GNPorVVrU6Gn fB9nWnGnBINnKHPjS2Yx cUKhHLpdH661FGvzDgQ4 NWDqscZaH9TdJNWf vDywNsW5a8C4Tz1rCN6b UC5rJZd4LF89WB48kVHs d7W8oTN4S2VfMFKzpsvd autmgWD9MIBdGEXq sR95oHZsKAteQg9do5P2 w326ULWuNKIxiO63Tk1k wJcuTYCpbKHQfB9abmkf u9isnlzvIzZcMINq WRw3BVl0CISiaEldKgOw FKX8DoF2NBF7aMIwiC3i rAkgusscwG1pHen+NTAg DRJxvxO1O6KyWew5 CSHwvQxzMT2mrYKsCSmb Iu6grIfceXbcHG5bCEOd pnphZYYatB2fVEYqrBHl nAthPX6kKTXiotqs x578EnNlAUE3QNFwtBTi R3NgpC4aDtKyXXQsPBPc E9RucAXkMHhfE077WHbv AiI4WQFhliRpW1Ro OHWukVdyGqM0x1E1Wg1O KL0TJFW1U2WwLin6UFIp oYgvJE3nzZCbJPanRr9u kFyniVomJT3vHRMv cndsBZPwoV9wJELvrSIu mPygAZ4fBAWeynozy445 JeCgAZR1AZYxfHThR4Oo sU0hLtQaGDUvTIJq H2BodEZsMYfiF675UEzl OiQ5PZEqtpVtE8AwJAKl gPmtTjY0u9I6Hx6CGCzj dGQ+LN56di22N5Pa QhrkSbj4VVXjIAZ5kHV1 sW2zGXXyRQame2Y1ePP3 H2UelpOsbu3xo4opYPHm ASpwN79tzYBdg8B1 OKBavQL1LVSvyOncOxIm cJ27Djh+QCIrtYxcm3Ix Xhhla3jja2wgvEr0AhLp JSIgdmFsaWduPSJ0 w7EoSw26C08mSEwgVHUh COLnXWWbRFAyeTdgyc7q hP5hKo7+TWJemLP1rFT4 mN4iMeBgOjF8DKto K521TxFmvBOpAruhz5ym a9fkwKa6MeZjZYDzubBv zIquEAV3x7BsLt51I2Gz mPkeh5FqLaj4hh40 yZJki9U0aGN7Q1TlGAYt bfyqhOPayVnyPF1xHMDv fvezNEHvrS7pDKXiA1t8 JtDeYpF4GHudW9Pe tiN9IFUgcPQhLGCykFKJ aZ4akcbax1fgdhxhTeGw FADmIMu4IFh1UIMvoHhw XvLdKLQ0CrS6HCC9 fEUbmA1kjMkyrnnerQ2e Oyc+IQu4a8htrWVeYS6p oSU4RD11QZ20oWIdh7R5 lOL2F4TpAPCsfzzz erqbnIH0ROVhTUTfiD09 Nn2wnEhsXx5cREIoHMP5 CZVpdBMcZ2EyeV7bXaJx LHFsCNNvG3TmxKUe IXlsG199TZtiNjT2NEBb izNwB7UeKVZipNlqLaO8 l1H3Zb2EFQ60XT69NN12 oEGcc6K2fJR2K1Zt YADnlcyjoyiclVD9ORSn SIKglU63Oz2zmTllNb6q PAOiSOT7NWTggYPfQ4Gf tK7yPvMqXOJsDVZb U7FzaNBcSThlE975JYfh RoK1XWCwyqTsT9YrSHCp gParGyK5s3R6Rh7GRt32 LJ46FZ71pKKko8C6 xZZ2H9QrVQPtfkaqjnap kSS3GSIeZVOtyR05Kt7v rVarOh0gZLVgGOP9KYHo cRPoO4UzaR0pSlIe KQTbHLQcS4HtpOWjQUra L645DFrvHuL1GBTyokYm M4CmTYNgoDuuWnC3s1Z6 Vt9AJYfiwwo3Q0Ya PjwvdHI+GZ34ILHqUN15 eDZolSVqg1deeJx8GmPu ALJlEEF6zUdkLMraa7Hc GVQwW06fgWXfl1H0 IGN (more content not included)... [facility] Employee Health Noteon 11-11 Employee Health Note [id number] [facility]-05 Employee Health Note [id number]# [facility] FOR SURGICAL PROCEDUR ESon 10-08-2024 Radiology exam is complete. No Radiologist dictation. Please follow up with ordering provider. Final result Deny Patino, - 10/08/2024 Radiology exam is complete. No Radiologist dictation. Please follow up with ordering provider. Final result [facility] [employer] SURGICAL PROCEDURES Radiology exam is complete. No Radiologist dictation. Please follow up with ordering provider. Final result Normal [facility] Radiology Study observation (narrative) [facility] FLU[employer]O FOR SURGICAL PROCEDUR ESOrdered By: Radiologist Radiology on 10-08-2024 [facility] [employer] Work Phone: Guidance-- during surgeryon 10-08-2024 Radiology exam is complete. No Radiologist dictation. Please follow up with ordering provider. [facility] Employee Health Noteon 10-04 Employee Health Note [id number] 7[facility] [id number] 7#1.00[facility] Health Note [id number] #1.00[facility] Health Note [id number] #1.00[facility] Health Note [id number] #1.00[facility] Health Note [id number] #[address] [place] [address] 36on 09-28-2024 36 Her event monitor showed episodes of atrial flutter. Please have her stop aspirin, continue clopidogrel, start Eliquis 5 mg twice daily. Please have her see Farzad Costa to review options for management. Normal [facility] Telephoneon 09-28-2024 Telephone [id number] Jacquelyn Zeng 1975 F Date Provider Department [place] 09/28/2024 JULIANA CAAL [facility] Family History Problem Relation Age of Onset Coronary artery disease Mother Heart attack Mother Cancer Mother Heart attack Father 54 Family Status - Relation Status Age at Mother Father Normal [facility] Employee Health Noteon 09-24 Employee Health Note [id number] 15[facility]on 09-22 Employee Health Note [id number] [facility] Follow-Upon 09-22-2024 Follow-Up [id number] Jacquelyn Zeng 1975 Date [facility] Department Center 09/22/2024 JOSE FRANCISCO PH[facility] END[facility] Family History Problem Relation Age of Onset Coronary artery disease Mother Heart attack Mother Cancer Mother Heart attack Father 54 Family Status - Relation Status Age at Mother Father Level of Service:45639 NM OFFICE/OUTPATIENT ESTABLISHED LOW MDM 20 MIN Normal [facility] Employee Health Noteon 09-18 Employee Health Note [id number]# 1.00[facility] No Panel InformationOrdered By: Radiologist Radiology on 09-16-2024 [facility] [employer] Work Phone: No Panel Informationon 09-16 Radiology Study observation (narrative) [facility] [employer] XR CERVICAL SPINE (4-5 VIEWS )on 09-16-2024 EXAMINATION: 5 XRAY VIEWS OF THE CERVICAL SPINE 09/16/2024 5:04 pm COMPARISON: None. HISTORY: ORDERING SYSTEM PROVIDED HISTORY: Cervical spondylosis without myelopathy TECHNOLOGIST PROVIDED HISTORY: What reading provider will be dictating this exam?->CRC FINDINGS: Counting reference of craniocervical junction. Straightening of the cervical lordosis. No radiographic evidence for acute fracture. Vertebral body heights appear maintained. Multilevel degenerative changes with disc height loss, endplate osteophytes, facet/uncovertebral degenerative changes, especially of the mid to lower cervical spine with probable areas of bony foraminal narrowing (within limits of positioning on the oblique views). Paraspinal soft tissues grossly unremarkable. Lung apices grossly clear. IMPRESSION: No acute osseous findings. Degenerative changes cervical spine. Interpreted by: Kirby White MD Signed by: Kirby White MD 09/22/24 Final result [facility] Radiology, Radiologist, MD - 09/22/2024 EXAMINATION: 5 XRAY VIEWS OF THE CERVICAL SPINE 09/16/2024 5:04 pm COMPARISON: None. HISTORY: ORDERING SYSTEM PROVIDED HISTORY: Cervical spondylosis without myelopathy TECHNOLOGIST PROVIDED HISTORY: What reading provider will be dictating this exam?->CRC FINDINGS: Counting reference of craniocervical junction. Straightening of the cervical lordosis. No radiographic evidence for acute fracture. Vertebral body heights appear maintained. Multilevel degenerative changes with disc height loss, endplate osteophytes, facet/uncovertebral degenerative changes, especially of the mid to lower cervical spine with probable areas of bony foraminal narrowing (within limits of positioning on the oblique views). Paraspinal soft tissues grossly unremarkable. Lung apices grossly clear. IMPRESSION: No acute osseous findings. Degenerative changes cervical spine. Interpreted by: Kirby White MD Signed by: Kirby White MD 09/22/24 Final result [facility] CERVICAL SPINE (4-5 VIEWS) EXAMINATION: 5 XRAY VIEWS OF THE CERVICAL SPINE 09/16/2024 5:04 pm COMPARISON: None. HISTORY: ORDERING SYSTEM PROVIDED HISTORY: Cervical spondylosis without myelopathy TECHNOLOGIST PROVIDED HISTORY: What reading provider will be dictating this exam?->CRC FINDINGS: Counting reference of craniocervical junction. Straightening of the cervical lordosis. No radiographic evidence for acute fracture. Vertebral body heights appear maintained. Multilevel degenerative changes with disc height loss, endplate osteophytes, facet/uncovertebral degenerative changes, especially of the mid to lower cervical spine with probable areas of bony foraminal narrowing (within limits of positioning on the oblique views). Paraspinal soft tissues grossly unremarkable. Lung apices grossly clear. IMPRESSION: No acute osseous findings. Degenerative changes cervical spine. Interpreted by: Kirby White MD Signed by: Kirby White MD 09/22/[address] [facility] XR LUMBAR SPINE (MIN 4 VIEWS )on 09-16-2024 EXAMINATION: 5 XRAY VIEWS OF THE LUMBAR SPINE 09/16/2024 5:04 pm COMPARISON: None. HISTORY: ORDERING SYSTEM PROVIDED HISTORY: Lumbosacral spondylosis without myelopathy TECHNOLOGIST PROVIDED HISTORY: What reading provider will be dictating this exam?->CRC FINDINGS: Counting reference of L4-L5 at the iliac crest. Alignment appears anatomic. No radiographic evidence for acute fracture. Vertebral body heights appear maintained. Moderate to severe disc height loss at L5-S1. Other disc spaces grossly maintained. Endplate osteophytes. Facet degenerative changes lower lumbar spine. Visualized sacrum intact. SI joints intact. Visualized hips grossly unremarkable. Calcifications of the aorta. IMPRESSION: No acute osseous findings. Degenerative changes lumbar spine. Interpreted by: Kirby White MD Signed by: Kirby White MD 09/22/24 Final result [facility] Radiology, Radiologist, MD - 09/22/2024 EXAMINATION: 5 XRAY VIEWS OF THE LUMBAR SPINE 09/16/2024 5:04 pm COMPARISON: None. HISTORY: ORDERING SYSTEM PROVIDED HISTORY: Lumbosacral spondylosis without myelopathy TECHNOLOGIST PROVIDED HISTORY: What reading provider will be dictating this exam?->CRC FINDINGS: Counting reference of L4-L5 at the iliac crest. Alignment appears anatomic. No radiographic evidence for acute fracture. Vertebral body heights appear maintained. Moderate to severe disc height loss at L5-S1. Other disc spaces grossly maintained. Endplate osteophytes. Facet degenerative changes lower lumbar spine. Visualized sacrum intact. SI joints intact. Visualized hips grossly unremarkable. Calcifications of the aorta. IMPRESSION: No acute osseous findings. Degenerative changes lumbar spine. Interpreted by: Kirby White MD Signed by: Kirby White MD 09/22/24 Final result [facility] XR LUMBAR SPINE (MIN 4 VIEWS) EXAMINATION: 5 XRAY VIEWS OF THE LUMBAR SPINE 09/16/2024 5:04 pm COMPARISON: None. HISTORY: ORDERING SYSTEM PROVIDED HISTORY: Lumbosacral spondylosis without myelopathy TECHNOLOGIST PROVIDED HISTORY: What reading provider will be dictating this exam?->CRC FINDINGS: Counting reference of L4-L5 at the iliac crest. Alignment appears anatomic. No radiographic evidence for acute fracture. Vertebral body heights appear maintained. Moderate to severe disc height loss at L5-S1. Other disc spaces grossly maintained. Endplate osteophytes. Facet degenerative changes lower lumbar spine. Visualized sacrum intact. SI joints intact. Visualized hips grossly unremarkable. Calcifications of the aorta. IMPRESSION: No acute osseous findings. Degenerative changes lumbar spine. Interpreted by: Kirby White MD Signed by: Kirby White MD 09/22/[address] [facility] XR SHOULDER LEFT (MIN 2 VIEW S)on 09-16-2024 EXAMINATION: XR left shoulder three views 09/16/2024 5:03 pm COMPARISON: None HISTORY: ORDERING SYSTEM PROVIDED HISTORY: Localized osteoarthritis of left shoulder TECHNOLOGIST PROVIDED HISTORY: What reading provider will be dictating this exam?->CRC, FINDINGS: No acute fracture, dislocation, bony lytic process or periosteal reaction is seen in the visualized bones and joints. No significant degenerative or erosive type of arthritis is seen in the glenohumeral or AC joints.. Preserved subacromial space. IMPRESSION: No significant skeletal abnormality is seen. Interpreted by: Del Melton MD Signed by: Del Melton MD 09/22/24 Final result [facility], Radiologist, - 09/22/2024 EXAMINATION: XR left shoulder three views 09/16/2024 5:03 pm COMPARISON: None HISTORY: ORDERING SYSTEM PROVIDED HISTORY: Localized osteoarthritis of left shoulder TECHNOLOGIST PROVIDED HISTORY: What reading provider will be dictating this exam?->CRC, FINDINGS: No acute fracture, dislocation, bony lytic process or periosteal reaction is seen in the visualized bones and joints. No significant degenerative or erosive type of arthritis is seen in the glenohumeral or AC joints.. Preserved subacromial space. IMPRESSION: No significant skeletal abnormality is seen. Interpreted by: Del Melton MD Signed by: Del Melton MD 09/22/24 Final result [facility] XR SHOULDER LEFT (MIN 2 VIEWS) EXAMINATION: XR left shoulder three views 09/16/2024 5:03 pm COMPARISON: None HISTORY: ORDERING SYSTEM PROVIDED HISTORY: Localized osteoarthritis of left shoulder TECHNOLOGIST PROVIDED HISTORY: What reading provider will be dictating this exam?->CRC, FINDINGS: No acute fracture, dislocation, bony lytic process or periosteal reaction is seen in the visualized bones and joints. No significant degenerative or erosive type of arthritis is seen in the glenohumeral or AC joints.. Preserved subacromial space. IMPRESSION: No significant skeletal abnormality is seen. Interpreted by: Del Melton MD Signed by: Del Melton MD 09/22/[address] [facility] Radiology Study observation (narrative) [facility] [employer] XR SHOULDER LEFT (MIN 2 VIEW S)Ordered By: Radiologist Radiology on 09-16-2024 [facility] Employee Health Noteon 09-15 Employee Health Note [id number] #1.00OTGTIFF [facility] 09-11-2024 [facility] Office Visit (ILDBEC) JACQUELYN ZENG ([id number]) 1975 F Date Time Provider Department 09/11/24 11:30 AM KINGA MENDES [facility] During your visit today, we recorded the following information about you: Pulse Blood pressure 100/minute 121/68 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 APRN.RETAIL FIELD SUPERVISOR 09/11/2024 12:02 PM Signed [facility] Follow-up Visit Current Preventive: PREEMPT Botox Current Abortive: fioricet, compazine, toradol, DHE Miscellaneous Patient Concerns: She is overdue for Botox relates due to scheduling. Infusions helped significantly when she had these in April. Has occipital injections scheduled at the end of October. Impression: Intractable chronic migraine without aura and without status migrainosus (primary encounter diagnosis) Chronic daily headache Plan: - Botox today (see procedure note below) Follow-Up Onabotulinum Toxin A (BotoxTM) for Migraine Indication: Chronic Intractable Migraine Treatment #: 9 Referral Expiration: 01/28/2025 Prior to the initiation of the FIRST [...] has improved (Y/N): Yes Side effects: none The patient has been assessed for disorders which could contribute to breathing or swallowing difficulty, and there is no contraindication with PREEMPT Botox. There is no documented allergic reaction/hypersensit ivity to any botulinum toxin and there is no active infection at proposed injection site. HEADACHE SCORES: 06/08/2021 09/07/2021 Headache Questions ER visits since last office visit: 0 0 Hospital stays since last office visit 0 0 Limited ADLs in the last month: 26 14 Days missed from work or school in the last month: 26 Days headache pain free in the last [...] last visit: Very much worse Much improved 06/08/2021 09/07/2021 HIT-6 HIT-6 78 (Severe impact) 65 (Severe impact) 06/08/2021 09/07/2021 MAYNOR - 2/7 SCORES MAYNOR-2 Score 1 3 MAYNOR-7 Score 11 11/07/2016 06/08/2021 09/07/2021 PHQ-9 Score 17 15 17 There were no vitals taken for this visit. Patient name: Jacquelyn Zeng : 1975 ALLERGIES Allergen Reactions Desonide Other: See Comments patient unaware but hx of TBI so she may not recall Latex Anaphylaxis, Itching Ciprofloxacin Unknown Codeine Hives Compazine [Prochlor* Intolerance Restless Erythromycin Hives Latex Itching Penicillin V Hives Sulfa (Sulfonamide * Hives UNIVERSAL PROTOCOL / SAFETY CHECKLIST Procedure: Onabotulinum toxin A for migraine Informed Consent Consent Obtained: Written [place] Protocol A moment to CARE was completed SIGN IN Personnel directly involved with the procedure wore the appropriate PPE Special Equipment: N/A Patient/Surrogate Stated/Verified: Patient name, Date of , Relevant allergies and Intended procedure TIME OUT No relevant labs, photos, and/or imaging studies were applicable for review. Consent documented and matches the intended procedure No correct side/site applicable for marking and visibility. Medications required for procedure verified. No implant(s) inserted. SIGN OUT No specimen collected. Written Consent Obtained: Written LOT #: [id number] Expiration Date: Month: 4 Year: 2026 Injection Sites Left (Units) Left (Sites) Right (Units) Right (Sites) TOTAL (Units) Emergency Medical Service Coordinator 5 1 5 1 10 Procerus Units: [...] effect Other Therapies Chiropractic Physical therapy Analgesic Butalbital/acetamino phe (more content not included)... Normal [facility] Coding Summaryon 09-01-2024 Coding Summary HTMLBase 64 LbwkdnkzODp9hPw+PGhl YWQ+YM5SBWBrL39ftSUw iP8fX7ALPNcIGkgiGDOQ HOvNXgLsxmZyAB8axZZc ZXJu IC8+SF3gEUKzFutubOHn m2W0cRU3E13gzf3cUBdz uLE9ELSxEbTovkjbk4ts xHr2DVimDtziQaIs MMEkmL95YOE4qC61Qm90 gDLtvZVnm9motSd2ZcCl RAWgPTE7gBbzTAiep3Ua RROcS72qyUGlo4T3 IGNvbGxhcHNlOyBlbXB0 vH4hIWpckxvdf6ylclqw Nti4np26yZJea7I8sYJ9 L1MldwG9QJMxbASp PkapdYUWzE3ekclnz8fj pikjBiQvXSRyKZp5YAy2 ZPZxfTmrTkOmWI07UPL2 WZGahnHkL0GbRJOi jRezDiT3a1A3Tu1RP0YM SmsbC9XYWQSXXQhxiYT+ VJ20pl83R3EzChxuZhy8 FMMeQOL8rQA3dN3o GCYxEJrxf8Q4rWO2K7Tk pcYhbi5bs2uvSISfLSjj H69mrVCbz6B9ATIlvPA5 WYNcyUvwTfCmaI90 Oyc+VIBifHirf2UoZgno a8tay0idvYg9BoydVCLz zlPvwBneQLT3x2OiJd8z JTXrrKL5eOM9nO1w IzDxJpP1GQtcW479PcZq aSWiUeowX95aD7BveVD+ ZEEhOxg2CWPpxYmlLE3s R1XmMGQxqbggfXAs gMwxCD6gYOJauhydMHHh jI3dKFRrV3s9VwYhZpN1 VFmhX1SwNYOdujfgGl07 qC2iDsVnPlC1NLlk W0ZpktR6UOAqjOCpYNod QHP4Z13il9H6RKKoEDVl RMO6pIK6rI5qgZzlczqs bGVmdDsgdmVydGlj ZUcuYHswN708OSLobCjb PkNvZGluZyBEYXRlOiAg MDQvMjIvMjAyNTwvdGQ+ RAZzCBI1oQlbHHUs eXWoRBstBj8zoQvjrCtp QO1jMFEtfaehLWZpfZ7g CGOfzEGrvPteXG1pWUCe hbdpu730VeVmSDV4 PDFvdGEuO3QfnM1mSlJy STSxYQQoO3MofBNzJEcy T499PNehIvZ1YUFlqnFw I1GhIUMguZwfBkE6 q5R9Mi2Nq1VspbfoA4Ht uMOyMlRmXhlmYMp4K7Fc PjwvdHI+KE66VZKfBM07 OFl2LVB2zWcvYUcr YQUrA1BsyJ7kXaAcCXAu ZGRkOyc+PHRhYmxlIHdp ZHRoPScxMDAlJyBzdHls JX0oJm7qDLTyXLOa hOzewLDhDnSnm0mdCYFw AQyzVK6exWtiL0EgjDK1 VHQbz4m7Zt68T39tA8Ij dXA+NDKhpQI1nTU1 qE2gIeYpVgO4EYbdB939 UeXbtVWbZlqyv3zzx3dv wBj1BxQ5LJFlywTosQvk GIF1c6LeHc99L27j IHdpZHRoPSIxNSUiIHZh hMggwf7wgC6yXa6+PGNv sLL0iMI2fA8jEwHpHuU3 SThpV100XpBhuVBw Frwij7gmh5jgrXt8QrIc JMLbqvXlgHuuLEM0g7Kz Rd57Z8WjrRkjy6IlVmk1 ar65oNJuo9G9jZT3 L9RfPQYcwwlhkDDcyCgn EY0qBXHecxqpPDGanD5k OLIeD2o7WpJxDdM1ZFaj Z7EcohP5WVLfdLUb TSWgrGMEhK2gertcw9rx xvxuJuPoAOQmBKl2SJj0 JQNppDvcApUkOZY4PtG6 LMM2kXJnoB3ocYot iuhypR3mEbj+MUK3bVUu qXRQWD7oHvogkBM+PHRk ZCF7mJviCWaqMKJobK6j ARDnY6i3ErTfEpM2 SRkqG0JvlaN5DPIdcGIj IUVqdGTUkY5jrubdt3fv ruzgIvZcXPLcFZo0BMq5 LWFsaWduOiBsZWZ0 XwV6ABD6rKCevE4gzWju hezysK3zHha+QmlydGgg MOE7EAw1A0RbDat7RAEj fBcoAJ4kvLZhJJkz Tz9iaVsntBtjBO4mISDl hmllt824UqAti3jlPWFb xIDwMUeyXSX6P45hq5J8 HOLsYIZgDGR4kJT1 bO4udEhvejrdvARehTkv lhGdxNwmMJgfDWqvV478 OAKufTfhQuZoQVm3D3Wa Rei6YORwwBtzZB8q aGWjPMedLm3xoIslfLoj ZV2mILSzbkpqn804DxAu k0uiAMNkpSYyVCunPEN6 G82gz4U2UNZxANWk SCC4oZG8aC0rlTrfqjcx bGVmdDsgdmVydGljYWwt SCmdJ458GMQylOxzHyPj xNc6E9QaIuy2PIPt pOeiZH9hdIGwMFvhCp8o xCkpkSjdLI9eTUEosaok v729PiKml7lrTTSebAMv SMsmIPI4A70wr2Q7 HZFwHCIkVPS5aLB8mA3w bGlnbjogbGVmdDsgdmVy yLceOHtlHOquD556DSTe cDsnPlBhdGllbnQg ZAtvCSs2K0GcFydznID+ YZ06EQWfHG37uMTyoQVt x1apiPf4NsKvCTYhKZV0 xSlaDIutv2RiLWXj L69ghORiu3F8EMOqfZue oVLbYcFegIV6eL0nFBbd ejuyq0gzndyzGxswe5sb wl01rF04D45vLHbh ZHRoPSIzMCUiIHZhbGln td1igZ5gLj6+PGNvbCB3 qNA2oN4jRUExInA7ZWfi H548WmVvuOHnYbgb t1xxy9muqWs0JdA7HTDk pcQheCeqSUO3u3IvJv66 D39wPXusYAWyFIShMJQb CDAqyVoflf1qxL9q Ii8+BXFhnKZ8iOM7sD2s VdNjTwZ6GBfoR056SyMx gDZtLrkvB26vG0WagHU+ CHXgUpf4EVXffSjp OA1jcKKwKNaaMs4tXIW4 BiAuFmKvRUdjT6KgCVJx auudqxeclQH9TQSxQOLp bG41Sd6gdDajFMJp mSTQjC9hcsxyj9aznuqh SnKoEDQdFPa9NRa5HFMi eVzbHuSwGJB4VmY4CSV2 oBUvfN0svFkehsjg uO6tB3PkOAXblbzaKg53 lA2tGwBsFtZ5NEgbTcx+ HG0AWN6RINNGXKxuVVXN UIR3K0AsKsx9WBUu nHzfNO7teVEpMWbdWn5u yPqppHbnTG7eVKPcipua ZGMaiK8jOPIybSNjvUbt AC7zNKWddnvgr136 NsXdKGA6QEHylPDdJ8Ap iT8mDfMpRDFsXELgS8Ek jXUrLEmxT107RLarSbV8 THWktdSoS6WzRXCv mNxmCxV6s6J6Zd6lGZ4o PJ8yZTh8CP47MX85hJPt i7B2dQP9D6CdFGTrbdwg ejcieJC7CLXnBKUa wT93xTSzQNyrOk9gu3T2 c375RZOvOISkoW96Ut1w oTvkQXKrmYCNvD4xoysn n0eosxcoTwGeLIMr UWj8VLe3OYTciSpePaTd PJI7IdT5BRR3cQEoeS7h aUlyujvtiB9bAyg+NTAg BUUywdB6O6JsRgr6 OGZpcTeyXT5mgIBuOLcq Me4mkEgxbWgwWY3dKJNg foalVYTegK9nWYYsuRXo cMcwIG1rNGZfxcie d855VlGtWVM5QVYhtQGp S3BzrS0eTdQmSNKmLKUj O4XtpBBqCTqfQ041OJai UeM8NDNmbuJdE0Fj XULcjCouJlI7a9M5Pf7V CV3APIG0A7DkTvf0FOAm wHehVE3qyAOnUTigGh7h xAdsbOfcSW0iNBPk idpaYFZgcT9fCSOzoMPi wRylVK2pEMTarlept744 DjDaOVU4GQDouACnR7As yL3xOdVpEKAjPAMi X2ShdUClDZwzJ435KSaj UyO4GRFskiAlQ8KhXRYr qXzcDfS6w2X5Bk2XJTpm dGQ+TE61yp16X3Oe IyirYmq2KUZdSTO4xKK1 xV3iIPXfCQuqa2I5uYJ7 R6RphnNbfe8af6quMPUl IYykV18xmAWcx0M4 XVOhkHO4WSHtzRcnJoGf gI28Nhd+BKDbkKond0Wd Iqwgs8owf3fycAq7BcYv JSIgdmFsaWduPSJ0 h3MuKy49K93hAQpfSFFm RDCoASPrHEMkpNssqo5y pT6tDm2+LXWhfMU7aYL7 sO0nJfPxSeM5UVuy B378OwHxzUUsMrxrd6ym q0ntgMn8BhPpSTWgupAu lJciECD9r6GsQc49C0Nn dGzez7HwMyo8yd17 iGGul3N8aXB8G6JrRJLp lulmxYPgvGzcBE2uVVDa rdatFOXqeG4hFUZmQ6b5 HgOxHuE6YSotF5Vx ttV3LLGgjFQdVPEqyAFS xK9tajszc7vwfmpzQpEt LKKaRAn6GQw1FUExrKmk JuDzXFA4RbQ9NGL2 yKLgcO3faQdljigifH0w Oyc+TDh0h2hppOKrCN8a wEN1IN55BE41zLXdp1Z9 zVW0J6LtKNTcoixj cedbvHF2JTJuDURasB88 Vk3axNxnYv3jPFLzMOV1 QGPtkXLwX0UxaU1bBcYe SPIwKSVfJ0HlmYHa ZUszJ072EFgqDkJ5BXDh roBnI1OoDSOepQqjShG1 e2V5Zo3DHV22JY96FT96 zTGwl1F0tPL8Z7Mq IXEcbxqxvycgsCK3CSTp GVAteN03Pw1weDgaWn0h YVZtDHI4DBJyqSNuI9So iK0sEdMaMLGpCGVy T8BycSCiLHqeH545TIgk MdP0BBOjymMiD2NkRSYh nOpbUgO7u5S3Cy6RUa94 RU47CA95pIPqq0Q1 sAZ6L3VxLYXejijaxjxm bBV6OVFrMCVvaL62Tv7b aRezQa7eNQEhILG6RFEo yKFfE6CqtB2gAoUn UBCjLRLiD0TeeAIlVYzy P820LWaqHtG4IWVsvbXz O0ZpFVNhmDauWdP5w5K3 Fc9AWKbvxwq3Y4Yh PjwvdHI+FP63BYJvOM59 uINpkVLuo0wauWi2XaGg CQFbAKM4gTojDYboi9Oz QRDbE90ufCZyj4Q1 IGN (more content not included)... [facility] Employee Health Noteon 09-01 Employee Health Note [id number] 64#1.00OTGTIFF [facility] Employee Health Note 104.170.. 0 [id number] 00#1.00OTGTIFF [facility] Employee Health Note [id number] 39#1.00OTGTIFF [facility] Employee Health Note [id number] 83#1.00OTGTIFF [facility] Employee Health Noteon 08-27 Employee Health Note [id number] #1.00OTGTIFF [facility] Employee Health Note [id number] 0 [id number] #1.00OTGTIFF [facility] Employee Health Note [id number] [facility] Follow-up visit [id number] Jacquelyn Zeng 1975 F Date Provider Department [facility] [facility] [address] Family History Problem Relation Age of Onset Coronary artery disease Mother Heart attack Mother Cancer Mother Heart attack Father 54 Family Status - Relation Status Age at Mother Father Level of Service:22004 NM OFFICE/OUTPATIENT ESTABLISHED MOD MDM 30 MIN Normal [facility] IGP,APTIMA HPV,AGE GDLNon AGE GDLN ACOG TESTING Note . [facility] Comment on above: TESTS RESULT FLAG UN ITS REF RANGE LAB Clinician Provided Cytology Information Source.............Cervix;Endocervix No. of containers..01 ThinPrep Vial Age Algo ACOG Kayla... 30-65 01 FLAG LEGEND: L-Low Normal,H-High Normal,LL-Alert Low,HH-Alert High <-Panic Low,>-Panic High,A-Abnormal,AA-Critical Abnormal Performed at: 01 =[address] [place] [address] Elsy Johnson MD, HPV APTIMA Negative Negative [facility] Comment on above: This nucleic acid am plification test detects fourteen high- risk HPV types (16,18,31,33,35,39,45,51,52,56,58,59,66,68) without differentiation. Performed at: =[address] [id number] Ged Tutor: Elsy Johnson MD, Phone: [phone] Performed at: [address] [id number] Ged Tutor: Elsy Johnson MD, Phone: [phone] IGP, APTIMA HPV, RFX 16/18,45 Note . [facility] Comment on above: TESTS RESULT FLAG UN ITS REF RANGE LAB DIAGNOSIS: 02 NEGATIVE FOR INTRAEPITHELIAL LESION OR MALIGNANCY. CELLULAR CHANGES ASSOCIATED WITH ATROPHY ARE PRESENT. Specimen adequacy: 02 Satisfactory for evaluation. Endocervical component may not be distinguished in cases of atrophy. Performed by: Kilo Perez, Engine Hostler (ASCP) . 02 Note: Note 02 The Pap smear is a screening test designed to aid in the detection of premalignant and malignant conditions of the uterine cervix. It is not a diagnostic procedure and should not be used as the sole means of detecting cervical cancer. Both false-positive and false-negative reports do occur. Test Methodology: Note 02 The Master The Gap Prep(R) Water Hydrant Installer was unable to read this specimen. Therefore a manual review was performed. FLAG LEGEND: L-Low Normal,H-High Normal,LL-Alert Low,HH-Alert High <-Panic Low,>-Panic High,A-Abnormal,AA-Critical Abnormal Performed at: [address] [address] Elsy Johnson MD, HPV Genotype Reflex Note 02 Criteria not met, HPV Genotype not performed. Criteria not met, HPV Genotype not performed. [facility] Tele[facility] ([facility] JACQUELYN ZENG ([id number]) 1975 F Date Time Provider Department 06/29/24 KINGA MENDES [facility] During your visit today, we recorded the following information about you: Will Medina, RN 06/29/2024 8:20 AM Signed Botox referral sent to pharmacy Boris CHILDRESS, RN RN Clinical Log [facility] [place] 07/22/2024 3:16 PM Signed [facility] C9 for Botox signed and faxed to [facility] Form scanned to chart Allergies As of Date: 06/29/2024 Noted Allergy Reaction DESONIDE 11/24/2012 14 - Other: See Comments Comments: patient unaware but hx of TBI so she may not recall LATEX 04/24/2005 10 - Anaphylaxis 9 - Itching CIPROFLOXACIN 01/17/2017 16 - Unknown CODEINE 04/24/2005 4 - Hives COMPAZINE (PROCHLORPERAZINE) 04/13/2024 5 - Intolerance Comments: Restless ERYTHROMYCIN 04/24/2005 4 - Hives LATEX 04/24/2005 9 - Itching PENICILLIN V 04/24/2005 4 - Hives SULFA (SULFONAMIDE ANTIBIOTICS) 04/24/2005 4 - Hives Date Reviewed: 04/14/2024 Reviewed by: Marilynn Lua PA-C - Fully Assessed Reason for Visit: Referral Request [124] Prescriptions as of 07/22/2024 - MOUNJARO 2.5 mg/0.5 mL pen injector Inject 2.5 mg subcutaneously. - prochlorperazine (COMPAZINE) 25 mg suppository 1 Suppository by RECTAL route every 8 hours as needed for nausea/vomiting. - Atomoxetine 80 mg capsule Take 1 capsule by mouth once daily. - rosuvastatin (CRESTOR) 40 mg tablet Take 40 mg by mouth. - acetaminophen 300 mg-caffeine 40 mg-butalbital 50 mg (FIORICET) per capsule Take 1 capsule by mouth every 6 hours as needed. - insulin pump cart,auto,BT-cntr crtg Inject subcutaneously. - [facility] - aspirin 81 mg chewable tablet CHEW 1 TABLET EVERY MORNING - clopidogrel (PLAVIX) 75 mg tablet - cyclobenzaprine (FLEXERIL) 5 mg tablet - FARXIGA 10 mg tablet - estradiol (ESTRACE) 1 mg tablet TAKE 1 TABLET BY MOUTH DAILY FOR 14 DAYS then TAKE 1 TABLET BY MOUTH twice a week - Fenofibrate (LOFIBRA) 160 mg tablet - [...] 40 mg by mouth once daily. - insulin aspart U-100 (NOVOLOG) 100 unit/mL Inject subcutaneously. - keTORolac (TORADOL) 30 mg/mL (1 mL) soln INJECT 1mL TWICE DAILY NEEDED - Pregabalin (LYRICA) 200 mg capsule pregabalin 200 mg capsule TAKE 1 CAPSULE BY MOUTH THREE TIMES DAILY - tiZANidine (ZANAFLEX) 4 mg tablet Take 4 mg by mouth every 6 hours as needed. - OTC NUTRITIONAL SUPPLEMENT Patient uses medical marijuana, gummies,powder. - Alpha Lipoic Acid 600 mg cap Take 1 capsule by mouth once daily. - ammonium lactate (LAC-HYDRIN) 12 % lotion ammonium lactate 12 % lotion - EntrecUCH ULTRA BLUE TEST STRIP test strip use [...] 225 mg by mouth once daily. - metFORMIN (GLUCOPHAGE) 1,000 mg tablet Take 1,000 mg by mouth twice daily with meals. - ALPRAZolam (XANAX) 0.5 mg tablet 1 mg. - DIHYDROERGOTAMINE 1 MG/ML INJECTION Inject 1mg SQ every 8 hours as needed for migraine - EXEL SYRINGE 3 ML 25 X 5/8 use with [facility] Facility-Administere d Medications as of 07/22/2024 - onabotulinum toxin type A 200 Units injection (BOTOX) Problem List As Of Date 06/29/2024 Noted Resolved Migraine without aura, without mention of intra*04/24/2005 08/01/2016 CHRON OBST ASTHMA UNSPECIFIED [J44.89] 04/24/2005 Bilateral occipital neuralgia [M54.81] 11/07/2016 Status migrainosus [G43.901] 04/08/2024 Encounter Status:Closed by WILL MEDINA on 06/29/24 Normal [facility] Documentationon 06-25-2024 Documentation [id number] Jacquelyn Zeng 1975 F Date Provider Department Center 06/25/2024 JOSE FRANCISCO PHAM [facility] ENDOCR [facility] Family History Problem Relation Age of Onset Coronary artery disease Mother Heart attack Mother Cancer Mother Heart attack Father 54 Family Status - Relation Status Age at Mother Father Reason for Visit and Comments: Diabetes Mellitus [183] - CGM Normal [facility] Follow-Upon 06-23-2024 Follow-Up [id number] Jacquelyn Zeng 1975 F Date Provider Department Center 06/23/2024 JOSE FRANCISCO PHAM [facility] ENDOCR [facility] Family History Problem Relation Age of Onset Coronary artery disease Mother Heart attack Mother Cancer Mother Heart attack Father 54 Family Status - Relation Status Age at Mother Father Level of Service:48656 NM OFFICE/OUTPATIENT ESTABLISHED MOD MDM 30 MIN Reason for Visit and Comments: Diabetes Mellitus [183] - DM follow up Normal [facility] CNOVon 04-14-2024 CNOV Office Visit ([facility]) JACQUELYN ZENG ([id number]) 1975 F Date Time Provider Department 04/14/24 1:00 PM MARILYNN LUA [facility] During your visit today, we recorded the following information about you: Marilynn Lua PA-C 04/14/2024 10:22 AM Signed [facility] Note Subjective: Jacquelyn Zeng is a 48 year old year old female presenting for day 3 of infusions. Response to infusions: Headache improving. and feels she is doing very well with infusions. Did have some restlessness with IV compazine but can tolerate her home PO compazine fine. Current Preventive: PREEMPT Botox, Qulipta 60mg, periactin, lyria, metoprolol, effexor Current Abortive: fioricet, compazine, toradol IM, DHE IM ALLERGIES Allergen Reactions Desonide Other: See Comments patient unaware but hx of TBI so she may not recall Latex Anaphylaxis, Itching Ciprofloxacin Unknown Codeine Hives Compazine [Prochlor* Intolerance Restless Erythromycin Hives Latex Itching Penicillin V Hives Sulfa (Sulfonamide * Hives Current Medications: MOUNJARO 2.5 mg/0.5 mL pen injectorInject 2.5 mg subcutaneously.Disp: Rfl: prochlorperazine (COMPAZINE) 25 mg suppository1 Suppository by RECTAL route every 8 hours as needed for nausea/vomiting.Disp : 20 SuppositoryRfl: 3 Atomoxetine 80 mg capsuleTake 1 capsule by mouth once daily.Disp: Rfl: rosuvastatin (CRESTOR) 40 mg tabletTake 40 mg by mouth.Disp: Rfl: acetaminophen 300 mg-caffeine 40 mg-butalbital 50 mg (FIORICET) per capsuleTake 1 capsule by mouth every 6 hours as needed.Disp: Rfl: insulin pump cart,auto,BT-cntr crtgInject subcutaneously. - [facility]icaDisp: Rfl: (Patient not taking: Reported on 04/08/2024) aspirin 81 mg chewable tabletCHEW 1 TABLET EVERY MORNINGDisp: Rfl: clopidogrel (PLAVIX) 75 mg tabletDisp: Rfl: cyclobenzaprine (FLEXERIL) 5 mg tabletDisp: Rfl: FARXIGA 10 mg tabletDisp: Rfl: estradiol (ESTRACE) 1 mg tabletTAKE 1 TABLET BY MOUTH DAILY FOR 14 DAYS then TAKE 1 TABLET BY MOUTH twice a weekDisp: Rfl: Fenofibrate (LOFIBRA) 160 mg tabletDisp: Rfl: glipiZIDE (GLUCOTROL) 10 mg tabletDisp: Rfl: metoprolol succinate ER (TOPROL XL) 25 mg 24 hr tabletDisp: Rfl: nystatin (MYCOSTATIN) powderAPPLY 1 application TO THE AFFECTED AREA(S) THREE TIMES DAILYDisp: Rfl: QULIPTA 60 mg tabletDisp: Rfl: cyproheptadine (PERIACTIN) 4 mg tabletTake 4 mg by mouth twice daily at 6AM and 9PM.Disp: Rfl: furosemide (LASIX) 40 mg tabletTake 40 mg by mouth once daily.Disp: Rfl: insulin aspart U-100 (NOVOLOG) 100 unit/mLInject subcutaneously.Disp: Rfl: keTORolac (TORADOL) 30 mg/mL (1 mL) solnINJECT 1mL TWICE DAILY NEEDEDDisp: Rfl: Pregabalin (LYRICA) 200 mg capsulepregabalin 200 mg capsule TAKE 1 CAPSULE BY MOUTH THREE TIMES DAILYDisp: Rfl: tiZANidine (ZANAFLEX) 4 mg tabletTake 4 mg by mouth every 6 hours as needed.Disp: Rfl: OTC NUTRITIONAL SUPPLEMENTPatient uses medical marijuana, gummies,powder.Disp: Rfl: Alpha Lipoic Acid 600 mg capTake 1 capsule by mouth once daily.Disp: Rfl: ammonium lactate (LAC-HYDRIN) 12 % lotionammonium lactate 12 % lotionDisp: Rfl: ONETOUCH ULTRA BLUE TEST STRIP test stripuse test strip to test BLOOD SUGAR FOUR TIMES DAILYDisp: Rfl: calcium carbonate (CALTRATE) 600 mg calcium (1,500 mg) tabTake 600 mg by mouth.Disp: Rfl: cholecalciferol (VITAMIN D3) 50 mcg (2,000 unit) tabletTake 1 tablet by mouth once daily.Disp: Rfl: hydrOXYzine HCl (ATARAX) 50 mg tabletTake 50 mg by mouth four times daily as needed. Disp: Rfl: magnesium oxide (MAG-OX) 400 mg (241.3 mg magnesium) tabletTake 1 tablet by mouth once daily.Disp: Rfl: meclizine (ANTIVERT) 25 mg tabTake 25 mg by mouth four times daily as needed.Disp: Rfl: prochlorperazine (COMPAZINE) 10 mg tabletTake 10 mg by mouth every 6 hours as needed.Disp: Rfl: venlafaxine ER (EFFEXOR XR) 150 mg 24 hr capsuleTake 225 mg by mouth once daily. Disp: Rfl: metFORMIN (GLUCOPHAGE) 1,000 mg tabletTake 1,000 mg by mouth twice daily with meals.Disp: Rfl: ALPRAZolam (XANAX) 0.5 mg tablet1 mg. Disp: Rfl: DIHYDROERGOTAMINE 1 MG/ML INJECTIONInject 1mg SQ every 8 hours as needed for migraineDisp: 10Rfl: 6 EXEL SYRINGE 3 ML 25 X 5/8 use with DHEDisp: 10Rfl: 6 Review of Systems: Review of system: Patient reports no change from the prior visit. Objective: VS: see infusion note for vital signs General: well appearing, in no acute distress, alert Neurological: Pain Behaviors: no pain behaviors observed Mental Status: Alert and oriented to person, place and time. Affect is normal. Speech is spontaneous and fluent without dysarthria. 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 Attention span and concentration are excellent. Cranial Nerves: VII-face is symmetric without evidence of weakness. VIII-hearing intact. Assessment: (G43.901) Status migraino (more content not included)... Normal [facility] CNOV Office Visit (NIQ) JACQUELYN ZENG ([id number]) 1975 F Date Time Provider Department 04/14/24 MARILYNN LUA During your visit today, we recorded the following information about you: Allergies As of Date: 04/14/2024 Noted Allergy Reaction DESONIDE 11/24/2012 14 - Other: See Comments Comments: patient unaware but hx of TBI so she may not recall LATEX 04/24/2005 10 - Anaphylaxis 9 - Itching CIPROFLOXACIN 01/17/2017 16 - Unknown CODEINE 04/24/2005 4 - Hives COMPAZINE (PROCHLORPERAZINE) 04/13/2024 5 - Intolerance Comments: Restless ERYTHROMYCIN 04/24/2005 4 - Hives LATEX 04/24/2005 9 - Itching PENICILLIN V 04/24/2005 4 - Hives SULFA (SULFONAMIDE ANTIBIOTICS) 04/24/2005 4 - Hives Date Reviewed: 04/14/2024 Reviewed by: Marilynn Lua PA-C - Fully Assessed Primary Visit Diagnosis:Status migrainosus [G43.901] Prescriptions as of 04/15/2024 - MOUNJARO 2.5 mg/0.5 mL pen injector Inject 2.5 mg subcutaneously. - prochlorperazine (COMPAZINE) 25 mg suppository 1 Suppository by RECTAL route every 8 hours as needed for nausea/vomiting. - Atomoxetine 80 mg capsule Take 1 capsule by mouth once daily. - rosuvastatin (CRESTOR) 40 mg tablet Take 40 mg by mouth. - acetaminophen 300 mg-caffeine 40 mg-butalbital 50 mg (FIORICET) per capsule Take 1 capsule by mouth every 6 hours as needed. - insulin pump cart,auto,BT-cntr crtg Inject subcutaneously. - [employer] - aspirin 81 mg chewable tablet CHEW 1 TABLET EVERY MORNING - clopidogrel (PLAVIX) 75 mg tablet - cyclobenzaprine (FLEXERIL) 5 mg tablet - FARXIGA 10 mg tablet - estradiol (ESTRACE) 1 mg tablet TAKE 1 TABLET BY MOUTH DAILY FOR 14 DAYS then TAKE 1 TABLET BY MOUTH twice a week - Fenofibrate (LOFIBRA) 160 mg tablet - [...] 40 mg by mouth once daily. - insulin aspart U-100 (NOVOLOG) 100 unit/mL Inject subcutaneously. - keTORolac (TORADOL) 30 mg/mL (1 mL) soln INJECT 1mL TWICE DAILY NEEDED - Pregabalin (LYRICA) 200 mg capsule pregabalin 200 mg capsule TAKE 1 CAPSULE BY MOUTH THREE TIMES DAILY - tiZANidine (ZANAFLEX) 4 mg tablet Take 4 mg by mouth every 6 hours as needed. - OTC NUTRITIONAL SUPPLEMENT Patient uses medical marijuana, gummies,powder. - Alpha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 d)Ordered By: Lee Chowdary on 08-27-2022 Lymphocytes/100 WBC (Bld) 42.7 % . [facility] MCH Auto (RBC) [Entitic mass ]Ordered By: Lee Chowdary on 08-27-2022 MCH (RBC) [Entitic mass] 30.3 pg 24.7-34.3 [facility] MCHC Auto (RBC) [Mass/Vol]Or dered By: Lee Chowdary on 08-27-2022 MCHC (RBC) [Mass/Vol] 33.3 g/dL 32.0-35.0 [facility] MCV Auto (RBC) [Entitic vol] Ordered By: Lee Chowdary on 08-27-2022 MCV (RBC) [Entitic vol] 91.0 fL 80-100 [facility] Monocytes Auto (Bld) [#/Vol] Ordered By: Lee Chowdary on 08-27-2022 Monocytes (Bld) [#/Vol] 1.2 10*3/uL 0.0-0.8 [facility] Monocytes/100 WBC Auto (Bld) Ordered By: Lee Chowdary on 08-27-2022 Monocytes/100 WBC (Bld) 10.0 % . [facility] Neutrophils Auto (Bld) [#/Vo l]Ordered By: Lee Chowdary on 08-27-2022 Neutrophils (Bld) [#/Vol] 4.8 10*3/uL 1.8-7.7 [facility] Neutrophils/100 WBC Auto (Bl d)Ordered By: Lee Chowdary on 08-27-2022 Neutrophils/100 WBC (Bld) 41.4 % . [facility] No Panel InformationOrdered By: Lee Chowdary on 08-27-2022 Estimated GFR (CKD-EPI) > 60.0 mL/Min [facility] Creatinine Clearance (Chem N/A [facility] Nucleated erythrocytes [Pres ence] in Blood by Automated countOrdered By: Lee Chowdary on 08-27-2022 Nucleated RBC Auto Ql (Bld) 0.1 /100{WBC} 0-0.5 [facility] Platelet mean volume Auto (B ld) [Entitic vol]Ordered By: Lee Chowdary on 08-27-2022 Platelet mean volume (Bld) [Entitic vol] 8.6 fL 6.3-10.7 [facility] Platelets Auto (Bld) [#/Vol] Ordered By: Lee Chowdary on 08-27-2022 Platelets (Bld) [#/Vol] 355 10*3/uL 150-450 [facility] Potassium [Moles/volume] in Serum or PlasmaOrdered By: Lee Chowdary on 08-27-2022 Potassium [Moles/Vol] 4.1 mmol/L 3.5-5.1 [facility] RBC Auto (Bld) [#/Vol]Ordere d By: Lee Chowdary on 08-27-2022 RBC (Bld) [#/Vol] 4.64 10*6/uL 3.60-5.00 [facility] Serum or plasma anion gap de terminationOrdered By: Lee Chowdary on 08-27-2022 Anion gap [Moles/Vol] 13.4 mmol/L 6.0-15.0 [facility] Sodium [Moles/volume] in Ser um or PlasmaOrdered By: Lee Chowdary on 08-27-2022 Sodium [Moles/Vol] 137 mmol/L 136-145 [facility] Urea nitrogen [Mass/volume] in Serum or PlasmaOrdered By: Lee Chowdary on 08-27-2022 Urea nitrogen [Mass/Vol] 18 mg/dL 7-25 [facility] WBC Auto (Bld) [#/Vol]Ordere d By: Lee Chowdary on 08-27-2022 WBC (Bld) [#/Vol] 11.6 10*3/uL 3.8-11.6 [facility] CBC AUTO DIFFon 07-24-2022 BASO # 0.2 103/ul Critically high 0.0-0.1 [facility] Comment on above: Performed By: #### C BC #### [facility] [address] [address] [address] Aurelio Leavitt Basophils/100 WBC (Bld) 1.4 % Normal 0.2-2.0 [facility] Comment on above: Performed By: #### C BC #### [facility] [address] [address] [address] Aurelio Leavitt EO # 0.7 103/ul Normal 0.0-0.7 [facility] Comment on above: Performed By: #### C BC #### [facility] [address] [address] [address] Aurelio Leavitt Eosinophils/100 WBC (Bld) 4.5 % Normal 0.9-7.0 [facility] Comment on above: Performed By: #### C BC #### [facility] [address] [address] [address] Aurelio Leavitt Erythrocyte distribution width (RBC) [Ratio] 13.3 % Normal 11.0-15.0 [facility] Comment on above: Performed By: #### C BC #### [facility] [address] [place] [address] Dr. Aurelio Leavitt Hematocrit (Bld) [Volume fraction] 48.8 % Critically high 36.0-48.0 [facility] Comment on above: Performed By: #### C BC #### [facility] [address] [place] [address] Dr. Aurelio Leavitt Hemoglobin (Bld) [Mass/Vol] 16.7 g/dL Critically high 12.0-16.0 [facility] Comment on above: Performed By: #### C BC #### [facility] [address] [place] [address] Dr. Aurelio Leavitt IG # 0.06 10e3/ul Critically high 0.00-0.03 [facility] Comment on above: Performed By: #### C BC #### [facility] [address] [place] [address] Dr. Aurelio Leavitt IG % 0.4 % Normal 0.0-0.5 [facility] Comment on above: Performed By: #### C BC #### [facility] [address] [place] [address] Dr. Aurelio Leavitt LYMPH # 6.2 103/ul Critically high 1.2-3.8 [facility] Comment on above: Performed By: #### C BC #### [facility] [address] [place] [address] Dr. Aurelio Leavitt Lymphocytes/100 WBC (Bld) 42.2 % Normal 20.5-60.0 [facility] Comment on above: Performed By: #### C BC #### [facility] [address] [place] [address] Dr. Aurelio Leavitt MANUAL DIFF REQ NO Normal [facility] Comment on above: Performed By: #### C BC #### [facility] [address] [place] [address] Dr. Aurelio Leavitt MCH (RBC) [Entitic mass] 30.4 pg Normal 26.7-34.0 [facility] Comment on above: Performed By: #### C BC #### [facility] [address] [place] [address] Dr. Aurelio Leavitt MCHC (RBC) [Mass/Vol] 34.2 g/dL Normal 29.9-35.2 [facility] Comment on above: Performed By: #### C BC #### [facility] [address] [place] [address] Dr. Aurelio Leavitt MCV (RBC) [Entitic vol] 88.9 fL Normal 81.0-99.0 [facility] Comment on above: Performed By: #### C BC #### [facility] [address] [place] [address] Dr. Aurelio Leavitt MONO # 1.1 103/ul Critically high 0.3-0.8 [facility] Comment on above: Performed By: #### C BC #### [facility] [address] [place] [address] Dr. Aurelio Leavitt Monocytes/100 WBC (Bld) 7.2 % Normal 1.7-12.0 [facility] Comment on above: Performed By: #### C BC #### [facility] [address] [place] [address] Dr. Aurelio Leavitt NEUT # 6.5 103/ul Normal 1.4-6.5 [facility] Comment on above: Performed By: #### C BC #### [facility] [address] [place] [address] Dr. Aurelio Leavitt Neutrophils/100 WBC (Bld) 44.3 % Normal 43.0-75.0 [facility] Comment on above: Performed By: #### C BC #### [facility] [address] [place] [address] Dr. Aurelio Leavitt Platelet mean volume (Bld) [Entitic vol] 11.5 fL Normal 9.5-13.5 [facility] Comment on above: Performed By: #### C BC #### [facility] [address] [place] [address] Dr. Aurelio Leavitt PLT 350 103/ul Normal 150-450 [facility] Comment on above: Performed By: #### C BC #### [facility] [address] [place] [address] Dr. Aurelio Leavitt RBC 5.49 106/ul Critically high 4.20-5.40 [facility] Comment on above: Performed By: #### C BC #### [facility] [address] [place] [address] Dr. Aurelio Leavitt WBC 14.6 103/ul Critically high 4.0-11.0 [facility] Comment on above: Performed By: #### C BC #### [facility] [address] [place] [address] Dr. Aurelio Leavitt DIRECT LDLon 07-24-2022 Cholesterol in LDL [Mass/Vol] 102 mg/dL Normal [facility] Comment on above: Performed By: #### C MREP #### [facility] [address] [place] [address] Dr. Aurelio Leavitt DLDL NORMAL SEE BELOW Normal [facility] Comment on above: Result Comment: <100 mg/dl OPTIMAL 100 - 129 mg/dl NEAR OR ABOVE OPTIMAL 130 - 159 mg/dl BORDERLINE HIGH 160 - 189 mg/dl HIGH >190 mg/dl VERY HIGH Performed By: #### C MREP #### [facility] [address] [address] [address] Aurelio Leavitt GLYCOHEMOGLOBIN A1Con 2022 ADA RECOMMENDATION SEE BELOW Normal [facility] Comment on above: Result Comment: ADA RECOMMENDED LIMIT 4.0 - 6.0 ADA THERAPEUTIC TARGET < 7.0 ACTION SUGGESTED > 7.0 Performed By: #### A CETON #### [facility] [address] [address] [address] Aurelio Leavitt Glucose [Mass/Vol] 266 mg/dL Normal [facility] Comment on above: Performed By: #### A CETON #### [facility] [address] [place] [address] Dr. Aurelio Leavitt HbA1c (Bld) [Mass fraction] 10.9 % Critically high 4.5-6.2 [facility] Comment on above: Performed By: #### A CETON #### [facility] [address] [address] [address] Aurelio Leavitt LIPID PROFILEon 07-24-2022 CHOL-HDL RATIO NORM SEE BELOW Normal [facility] Comment on above: Result Comment: 3.3 - 4.4 LOW RISK 4.4 - 7.1 AVERAGE RISK 7.1 - 11.0 MODERATE RISK >11.0 HIGH RISK Performed By: #### C MREP #### [facility] [address] [place] [address] Dr. Aurelio Leavitt Cholesterol [Mass/Vol] 257 mg/dL Critically high <=200 [facility] Comment on above: Performed By: #### C MREP #### [facility] [address] [place] [address] Dr. Aurelio Leavitt Cholesterol in HDL [Mass/Vol] 34 mg/dL Critically low 40-60 [facility] Comment on above: Performed By: #### C MREP #### [facility] [address] [address] [address] Aurelio Leavitt Cholesterol.total/Linda sterol in HDL [Mass ratio] 7.6 {ratio} Normal [facility] Comment on above: Performed By: #### C MREP #### [facility] [address] [address] [address] Aurelio Leavitt HDL NORMAL > or = 60 mg/dl - LOW CARDIOVASCULAR RISK <40 mg/dl - HIGH CARDIOVASCULAR RISK Normal [facility] Comment on above: Performed By: #### C MREP #### [facility] [address] [address] [address] Aurelio Leavitt LDL CALC NORMAL SEE BELOW Normal [facility] Comment on above: Result Comment: <100 mg/dl OPTIMAL 100 - 129 mg/dl NEAR OR ABOVE OPTIMAL 130 - 159 mg/dl BORDERLINE HIGH 160 - 189 mg/dl HIGH >190 mg/dl VERY HIGH Performed By: #### C MREP #### [facility] [address] [address] [address] Aurelio Leavitt Triglyceride [Mass/Vol] 934 mg/dL Critically high <=150 [facility] Comment on above: Performed By: #### C MREP #### [facility] [address] [address] [address] Aurelio Leavitt VLDL CALC 186.8 mg/dL Normal [facility] Comment on above: Performed By: #### C MREP #### [facility] [address] [place] [address] Dr. Aurelio Leavitt LIVER PROFILEon 07-24-2022 Albumin [Mass/Vol] 4.2 g/dL Normal 3.4-5.0 [facility] Comment on above: Performed By: #### C MREP #### [facility] [address] [address] [address] Aurelio Leavitt Albumin/Globulin [Mass ratio] 1.2 {ratio} Normal [facility] Comment on above: Performed By: #### C MREP #### [facility] [address] [address] [address] Aurelio Leavitt ALP [Catalytic activity/Vol] 127 U/L Critically high 46-116 [facility] Comment on above: Performed By: #### C MREP #### [facility] [address] [address] [address] Aurelio Leavitt ALT [Catalytic activity/Vol] 33 U/L Normal 14-59 [facility] Comment on above: Performed By: #### C MREP #### [facility] [address] [address] [address] Aurelio Leavitt AST [Catalytic activity/Vol] 14 U/L Critically low 15-37 [facility] Comment on above: Performed By: #### C MREP #### [facility] [address] [address] [address] Aurelio Leavitt BILI, CONJUGATED 0.1 mg/dL Normal 0.0-0.2 [facility] Comment on above: Performed By: #### C MREP #### [facility] [address] [place] [address] Dr. Aurelio Leavitt Bilirubin [Mass/Vol] 0.2 mg/dL Normal 0.2-1.0 [facility] Comment on above: Performed By: #### C MREP #### [facility] [address] [address] [address] Aurelio Leavitt Globulin (S) [Mass/Vol] 3.5 g/dL Normal T [facility] Comment on above: Performed By: #### C MREP #### [facility] [address] [place] [address] Dr. Aurelio Leavitt Protein [Mass/Vol] 7.7 g/dL Normal 6.4-8.2 [facility] Comment on above: Performed By: #### C MREP #### [facility] [address] [address] [address] Aurelio Leavitt PROF CHEM 8 (BAS METB)on Anion gap [Moles/Vol] 10.4 mmol/L Normal [facility] Comment on above: Performed By: #### C MREP #### [facility] [address] [place] [address] Dr. Aurelio Leavitt Calcium [Mass/Vol] 9.5 mg/dL Normal 8.5-10.1 [facility] Comment on above: Performed By: #### C MREP #### [facility] [address] [address] [address] Aurelio Leavitt Chloride [Moles/Vol] 97 mmol/L Critically low 98-107 [facility] Comment on above: Performed By: #### C MREP #### [facility] [address] [address] [address] Aurelio Leavitt CO2 [Moles/Vol] 30.3 mmol/L Normal 21.0-32.0 [facility] Comment on above: Performed By: #### C MREP #### [facility] [address] [address] [address] Aurelio Leavitt Creatinine [Mass/Vol] 0.62 mg/dL Normal 0.55-1.02 [facility] Comment on above: Performed By: #### C MREP #### [facility] [address] [address] [address] Aurelio Leavitt EGFR-AF GABONESE 60 mL/min/1.73m2 Normal >=60 [facility] Comment on above: Performed By: #### C MREP #### [facility] [address] [address] [address] Aurelio Leavitt EGFR-NON AF GABONESE 60 mL/min/1.73m2 Normal >=60 [facility] Comment on above: Performed By: #### C MREP #### [facility] [address] [address] [address] Aurelio Leavitt Glucose [Mass/Vol] 252 mg/dL Critically high 74-106 [facility] Comment on above: Performed By: #### C MREP #### [facility] [address] [address] [address] Aurelio Leavitt Potassium [Moles/Vol] 3.7 mmol/L Normal 3.5-5.1 [facility] Comment on above: Performed By: #### C MREP #### [facility] [address] [address] [address] Aurelio Leavitt Sodium [Moles/Vol] 134 mmol/L Critically low 136-145 [facility] Comment on above: Performed By: #### C MREP #### [facility] [address] [address] [address] Aurelio Leavitt Urea nitrogen [Mass/Vol] 13.0 mg/dL Normal 7.0-18.0 [facility] Comment on above: Performed By: #### C MREP #### [facility] [address] [place] [address] Dr. Aurelio Leavitt Urea nitrogen/Creatinine [Mass ratio] 21.0 mg/mg Normal [facility] Comment on above: Performed By: #### C MREP #### [facility] [address] [address] [address] Aurelio Leavitt TSHon 07-24-2022 TSH 2.102 uIU/mL Normal 0.358-3.740 [facility] Comment on above: Performed By: #### C MREP #### [facility] [address] [place] [address] Dr. Aurelio Leavitt US CHESTon 07-10-2022 US [...] by: AVINASH SERRATO Date: 2022-07-10 16:41 Normal [facility] NM STRESS/REST MULTIon 06-26 NM STRESS/REST MULTI Patient: BOB ZENG Exam Date: 06/26/2022 : 1975 Gender:F Ordering : DR JOSH OCHOA . Admission #: [id number] Family : Order #: [id number] CLICK HERE TO VIEW EXAM RADIOLOGY REPORT [...] OF STUDY: Good. PERFUSION DEFECT: LOCATION: Mid-anterior. [place]. SIZE: Small (1-2 segments). SEVERITY: Mild. TYPE: [...] Serrato MD on 06/27/2022 at 06:05 Normal [facility] XR TSPINE 3 VIEWSon 06-26-19 23 XR [...] BARTOLOME RODRIGUEZ Date: 2022-06-26 09:05 Normal [facility] ALBUMINon 03-29-2022 Albumin [Mass/Vol] 3.5 g/dL Normal 3.4-5.0 [facility] Comment on above: Performed By: #### C MREP #### [facility] [address] [place] [address] Dr. Aurelio Leavitt AMYLASEon 03-29-2022 Amylase [Catalytic activity/Vol] 27 U/L Normal 25-115 [facility] Comment on above: Performed By: #### A MY, LIPA, CMADM #### [facility] [address] [place], [place] [address] Dr. Aurelio Leavitt Albumin [Mass/volume] in Ser um or PlasmaOrdered By: Marie Elias on 03-29-2022 Albumin [Mass/Vol] 3.5 g/dL 3.2-5.5 [facility] CARDIAC FANNY 3-6on 2 CK [Catalytic activity/Vol] 107 U/L Normal 26-192 [facility] Comment on above: Performed By: #### C MREP #### [facility] [address] [address] [address] Aurelio Leavitt CK.MB [Mass/Vol] 1.04 ng/mL Normal <=3.60 [facility] Comment on above: Performed By: #### C MREP #### [facility] [address] [address] [address] Aurelio Leavitt HSTROP 5.8 pg/mL Normal 4.0-51.3 [facility] Comment on above: Result Comment: CUT- OFF POINTS HAVE BEEN ESTABLISHED BASED ON THE FOURTH UNIVERSAL DEFINITIONS OF MYOCARDIAL INFARCTION. THE UPPER REFERENCE LIMIT (URL) OF TROPONIN, DEFINED THE 99TH PERCENTILE OF cTnI DISTRIBUTION IN A REFERENCE POPULATION, HAS BEEN CONFIRMED THE DECISION THRESHOLD FOR LA DIAGNOSIS. Performed By: #### C MREP #### [facility] [address] [address] [address] Aurelio Leavitt CARDIAC FANNY ADMITon 022 CK [Catalytic activity/Vol] 96 U/L Normal 26-192 [facility] Comment on above: Performed By: #### A MY, LIPA, CMADM #### [facility] [address] [address] [address] Aurelio Leavitt CK.MB [Mass/Vol] 0.89 ng/mL Normal <=3.60 [facility] Comment on above: Performed By: #### A MY, LIPA, CMADM #### [facility] [address] [address] [address] Aurelio Leavitt HSTROP 5.7 pg/mL Normal 4.0-51.3 [facility] Comment on above: Result Comment: CUT- OFF POINTS HAVE BEEN ESTABLISHED BASED ON THE FOURTH UNIVERSAL DEFINITIONS OF MYOCARDIAL INFARCTION. THE UPPER REFERENCE LIMIT (URL) OF TROPONIN, DEFINED THE 99TH PERCENTILE OF cTnI DISTRIBUTION IN A REFERENCE POPULATION, HAS BEEN CONFIRMED THE DECISION THRESHOLD FOR LA DIAGNOSIS. Performed By: #### A PACO LIPA, CMADM #### [facility] [address] [place] [address] Dr. Aurelio Leavitt ROMULO 24 ng/mL Normal 9-82 [facility] Comment on above: Performed By: #### A PACO LIPA, CMADM #### [facility] [address] [place] [address] Dr. Aurelio Leavitt CBC AUTO DIFFon 03-29-2022 BASO # 0.1 103/ul Normal 0.0-0.1 [facility] Comment on above: Performed By: #### C BC #### [facility] [address] [place] [address] Dr. Aurelio Leavitt Basophils/100 WBC (Bld) 1.1 % Normal 0.2-2.0 [facility] Comment on above: Performed By: #### C BC #### [facility] [address] [place] [address] Dr. Aurelio Leavitt EO # 0.2 103/ul Normal 0.0-0.7 [facility] Comment on above: Performed By: #### C BC #### [facility] [address] [place] [address] Dr. Aurelio Leavitt Eosinophils/100 WBC (Bld) 2.9 % Normal 0.9-7.0 [facility] Comment on above: Performed By: #### C BC #### [facility] [address] [place] [address] Dr. Aurelio Leavitt Erythrocyte distribution width (RBC) [Ratio] 13.2 % Normal 11.0-15.0 [facility] Comment on above: Performed By: #### C BC #### [facility] [address] [place] [address] Dr. Aurelio Leavitt Hematocrit (Bld) [Volume fraction] 45.2 % Normal 36.0-48.0 [facility] Comment on above: Performed By: #### C BC #### [facility] [address] [place] [address] Dr. Aurelio Leavitt Hemoglobin (Bld) [Mass/Vol] 16.3 g/dL Critically high 12.0-16.0 [facility] Comment on above: Performed By: #### C BC #### [facility] [address] [place] [address] Dr. Aurelio Leavitt IG # 0.02 10e3/ul Normal 0.00-0.03 [facility] Comment on above: Performed By: #### C BC #### [facility] [address] [place] [address] Dr. Aurelio Levaitt IG % 0.3 % Normal 0.0-0.5 [facility] Comment on above: Performed By: #### C BC #### [facility] [address] [place] [address] Dr. Aurelio Leavitt LYMPH # 3.8 103/ul Normal 1.2-3.8 [facility] Comment on above: Performed By: #### C BC #### [facility] [address] [place] [address] Dr. Aurelio Leavitt Lymphocytes/100 WBC (Bld) 51.4 % Normal 20.5-60.0 [facility] Comment on above: Performed By: #### C BC #### [facility] [address] [place] [address] Dr. Aurelio Leavitt MANUAL DIFF REQ NO Normal [facility] Comment on above: Performed By: #### C BC #### [facility] [address] [place] [address] Dr. Aurelio Leavitt MCH (RBC) [Entitic mass] 32.8 pg Normal 26.7-34.0 [facility] Comment on above: Performed By: #### C BC #### [facility] [address] [place] [address] Dr. Aurelio Leavitt MCHC (RBC) [Mass/Vol] 36.1 g/dL Critically high 29.9-35.2 [facility] Comment on above: Performed By: #### C BC #### [facility] [address] [address] [address] Aurelio Leavitt MCV (RBC) [Entitic vol] 90.9 fL Normal 81.0-99.0 [facility] Comment on above: Performed By: #### C BC #### [facility] [address] [address] [address] Aurelio Leavitt MONO # 0.6 103/ul Normal 0.3-0.8 [facility] Comment on above: Performed By: #### C BC #### [facility] [address] [place] [address] Dr. Aurelio Leavitt Monocytes/100 WBC (Bld) 8.0 % Normal 1.7-12.0 [facility] Comment on above: Performed By: #### C BC #### [facility] [address] [place] [address] Dr. Aurelio Leavitt NEUT # 2.7 103/ul Normal 1.4-6.5 [facility] Comment on above: Performed By: #### C BC #### [facility] [address] [place] [address] Dr. Aurelio Leavitt Neutrophils/100 WBC (Bld) 36.3 % Critically low 43.0-75.0 [facility] Comment on above: Performed By: #### C BC #### [facility] [address] [place] [address] Dr. Aurelio Leavitt Platelet mean volume (Bld) [Entitic vol] 11.5 fL Normal 9.5-13.5 [facility] Comment on above: Performed By: #### C BC #### [facility] [address] [place] [address] Dr. Aurelio Leavitt PLT 246 103/ul Normal 150-450 [facility] Comment on above: Performed By: #### C BC #### [facility] [address] [place] [address] Dr. Aurelio Leavitt RBC 4.97 106/ul Normal 4.20-5.40 [facility] Comment on above: Performed By: #### C BC #### [facility] [address] [address] [address] Aurelio Leavitt WBC 7.4 103/ul Normal 4.0-11.0 [facility] Comment on above: Performed By: #### C BC #### [facility] [address] [place] [address] Dr. Aurelio Leavitt Creatinine and Glomerular fi ltration rate.predicted panel (S/P/Bld)Ordered By: Marie Elias on 03-29-2022 Creatinine [Mass/Vol] 0.53 mg/dL 0.44-1.03 [facility] ER URINE PROFILEon 2 Bilirubin Ql (U) Negative Normal NEGATIVE [facility] Comment on above: Performed By: #### L ACT #### [facility] [address] [place] [address] Dr. Aurelio Leavitt Clarity (U) CLEAR Normal CLEAR [facility] Comment on above: Performed By: #### L ACT #### [facility] [address] [address] [address] Aurelio Leavitt Color (U) LT. YELLOW Normal YELLOW [facility] Comment on above: Performed By: #### L ACT #### [facility] [address] [place] [address] Dr. Aurelio BRADY A micrscopic examination will be performed if indicated. Normal [facility] Comment on above: Performed By: #### L ACT #### [facility] [address] [place] [address] Dr. Aurelio Leavitt Glucose Ql (U) >1000 Abnormal NEGATIVE [facility] Comment on above: Performed By: #### L ACT #### [facility] [address] [address] [address] Aurelio Leavitt Hemoglobin Ql (U) TRACE-LYSED Abnormal NEGATIVE [facility] Comment on above: Performed By: #### L ACT #### [facility] [address] [place] [address] Dr. Aurelio Leavitt Ketones Ql (U) 15 mg/dl Abnormal NEGATIVE [facility] Comment on above: Performed By: #### L ACT #### [facility] [address] [place] [address] Dr. Aurelio Leavitt LEUKOCYTES Negative Normal NEGATIVE [facility] Comment on above: Performed By: #### L ACT #### [facility] [address] [place] [address] Dr. Aurelio Leavitt Nitrite Ql (U) Negative Normal NEGATIVE [facility] Comment on above: Performed By: #### L ACT #### [facility] [address] [place] [address] Dr. Aurelio Leavitt pH (U) 5.5 [pH] Normal 5-9 [facility] Comment on above: Performed By: #### L ACT #### [facility] [address] [place] [address] Dr. Aurelio Leavitt SPEC GRAVITY 1.020 Normal 1.005-<=1.02 5 [facility] Comment on above: Performed By: #### L ACT #### [facility] [address] [place] [address] Dr. Aurelio Leavitt UA PROTEIN Negative Normal NEGATIVE/ TRACE [facility] Comment on above: Performed By: #### L ACT #### [facility] [address] [place] [address] Dr. Aurelio Leavitt UR MICRO IND INDICATED Normal [facility] Comment on above: Performed By: #### L ACT #### [facility] [address] [place] [address] Dr. Aurelio Leavitt Urobilinogen Qn (U) 0.2 {Dalia'U}/dL Normal 0.2 - 1. 0 [facility] Comment on above: Performed By: #### L ACT #### [facility] [address] [place] [address] Dr. Aurelio Leavitt Estimated glomerular filtrat ion rate (GFR) non- AmericanOrdered By: Marie Elias on 03-29-2022 GFR/1.73 sq M.predicted among non-blacks MDRD (S/P/Bld) [Vol rate/Area] > 60 mL/Min [facility] Globulin Calc (S) [Mass/Vol] Ordered By: Marie Elias on 11-17-2022 Globulin (S) [Mass/Vol] 2.7 g/dL [facility] LACTATE/LACTIC ACIDon 2021 Lactate [Moles/Vol] 1.0 mmol/L Normal 0.4-1.[address] [facility] Comment on above: Performed By: #### L ACT #### [facility] [address] [address] [address] Aurelio Leavitt LIPASEon 03-29-2022 Lipase [Catalytic activity/Vol] 139.0 U/L Normal 73.0-393.0 [facility] Comment on above: Performed By: #### A MY, LIPA, CMADM #### [facility] [address] [address] [address] Aurelio Leavitt LIVER PROFILE SEND OUTon Albumin, Serum LIPG Normal [facility] Comment on above: Result Comment: Test not performed. Specimen is grossly lipemic. Performed By: #### L ACT #### [facility] [address] [address] [address] Aurelio Leavitt ALP [Catalytic activity/Vol] 126 U/L Critically high 44-121 [facility] Comment on above: Performed By: #### L ACT #### [facility] [address] [address] [address] Aurelio Leavitt ALT [Catalytic activity/Vol] 66 U/L Critically high 0-32 [facility] Comment on above: Performed By: #### L ACT #### [facility] [address] [address] [address] Aurelio Leavitt AST [Catalytic activity/Vol] 61 U/L Critically high 0-40 [facility] Comment on above: Performed By: #### L ACT #### [facility] [address] [address] [address] Aurelio Leavitt Bilirubin [Mass/Vol] mg/dL Normal 0.0-1.2 [facility] Comment on above: Performed By: #### L ACT #### [facility] [address] [address] [address] Aurelio Leavitt Bilirubin, Direct LIPG Normal [facility] Comment on above: Result Comment: Test not performed. Specimen is grossly lipemic. Performed By: #### L ACT #### [facility] [address] [address] [address] Aurelio Leavitt Protein [Mass/Vol] 6.5 g/dL Normal 6.0-8.5 [facility] Comment on above: Performed By: #### L ACT #### [facility] [address] [address] [address] Aurelio Leavitt Laboratory - Chemistry and C hemistry - challengeOrdered By: Marie Elias on 03-29-2022 Lipase [Catalytic activity/Vol] 42.0 U/L [facility] No Panel InformationOrdered By: Marie Elias on 03-29-2022 Estimated GFR () > 60 mL/Min [facility] Comment on above: GFR estimated refere nce range: According to KDOQI guidelines, <60 ml/min/1.73m2 is sufficient to diagnose a patient with chronic kidney disease. Pharmacy Creatinine Clearance (Chem N/A [facility] PROF CHEM 8 (BAS METB)on Anion gap [Moles/Vol] 15.8 mmol/L Normal [facility] Comment on above: Performed By: #### L ACT #### [facility] [address] [place] [address] Dr. Aurelio Leavitt Calcium [Mass/Vol] 8.8 mg/dL Normal 8.5-10.1 [facility] Comment on above: Performed By: #### L ACT #### [facility] [address] [address] [address] Aurelio Leavitt Chloride [Moles/Vol] 101 mmol/L Normal 98-107 [facility] Comment on above: Performed By: #### L ACT #### [facility] [address] [address] [address] Aurelio Leavitt CO2 [Moles/Vol] 21.3 mmol/L Normal 21.0-32.0 [facility] Comment on above: Performed By: #### L ACT #### [facility] [address] [address] [address] Aurelio Leavitt Creatinine [Mass/Vol] 0.53 mg/dL Critically low 0.55-1.02 [facility] Comment on above: Performed By: #### L ACT #### [facility] [address] [address] [address] Aurelio Leavitt EGFR-AF GABONESE >60 Normal >=60 [facility] Comment on above: Performed By: #### L ACT #### [facility] [address] [address] [address] Aurelio Leavitt EGFR-NON AF GABONESE >60 Normal >=60 [facility] Comment on above: Performed By: #### L ACT #### [facility] [address] [address] [address] Aurelio Leavitt Glucose [Mass/Vol] 347 mg/dL Critically high 74-106 T [facility] Comment on above: Performed By: #### L ACT #### [facility] [address] [address] [address] Aurelio Leavitt Potassium [Moles/Vol] 4.1 mmol/L Normal 3.5-5.1 [facility] Comment on above: Performed By: #### L ACT #### [facility] [address] [address] [address] Aurelio Leavitt Sodium [Moles/Vol] 134 mmol/L Critically low 136-145 Th [facility] Comment on above: Performed By: #### L ACT #### [facility] [address] [address] [address] Aurelio Leavitt Urea nitrogen [Mass/Vol] 8.0 mg/dL Normal 7.0-18.0 [facility] Comment on above: Performed By: #### L ACT #### [facility] [address] [address] [address] Aurelio Leavitt Urea nitrogen/Creatinine [Mass ratio] 15.1 mg/mg Normal [facility] Comment on above: Performed By: #### L ACT #### [facility] [address] [address] [address] Aurelio Leavitt PROF CHEM 8 (BAS METB) SEND OUTon 03-29-2022 Calcium [Mass/Vol] 9.3 mg/dL Normal 8.7-10.2 [facility] Comment on above: Performed By: #### L ACT #### [facility] [address] [address] [address] Aurelio Leavitt Chloride [Moles/Vol] 92 mmol/L Critically low 96-106 [facility] Comment on above: Performed By: #### L ACT #### [facility] [address] [address] [address] Aurelio Leavitt CO2 [Moles/Vol] 27 mmol/L Normal 20-29 [facility] Comment on above: Performed By: #### L ACT #### [facility] [address] [address] [address] Aurelio Leavitt Creatinine [Mass/Vol] 1.89 mg/dL Critically high 0.57-1.00 [facility] Comment on above: Performed By: #### L ACT #### [facility] [address] [place] [address] Dr. Aurelio Leavitt GFR/1.73 sq M.predicted among non-blacks MDRD (S/P/Bld) [Vol rate/Area] 33 mL/min/{1.73_m2} Critically low >59 [facility] Comment on above: Performed By: #### L ACT #### [facility] [address] [place] [address] Dr. Aurelio Leavitt Glucose [Mass/Vol] 342 mg/dL Critically high 70-99 [facility] Comment on above: Performed By: #### L ACT #### [facility] [address] [place] [address] Dr. Aurelio Leavitt Potassium [Moles/Vol] 4.2 mmol/L Normal 3.5-5.2 [facility] Comment on above: Result Comment: Spec imen received hemolyzed. Value may be increased by hemolysis. Clinical correlation indicated. Performed By: #### L ACT #### [facility] [address] [place] [address] Dr. Aurelio Leavitt Sodium [Moles/Vol] 129 mmol/L Critically low 134-144 Th [facility] Comment on above: Performed By: #### L ACT #### [facility] [address] [place], [place] [address] Dr. Aurelio Leavitt Urea nitrogen [Mass/Vol] 8 mg/dL Normal 6- [facility] Comment on above: Performed By: #### L ACT #### [facility] [address] [place], [place] [address] Dr. Aurelio Leavitt Urea nitrogen/Creatinine [Mass ratio] 4 mg/mg Critically low 9 [facility] Comment on above: Performed By: #### L ACT #### [facility] [address] [place], [place] [address] Dr. Aurelio Leavitt Protein [Mass/volume] in Ser um or PlasmaOrdered By: Marie Elias on 03-29-2022 Protein [Mass/Vol] 6.2 g/dL 6.1-7.9 [facility] Serum or plasma alanine regalado otransferase measurement without P-5'-P (enzymatic activiOrdered By: Marie Elias on 03-29-2022 ALT No additional P-5'-P [Catalytic activity/Vol] See comment 10-60 [facility] Comment on above: Specimen hemolyzed, redraw requested Serum or plasma albumin/glob ulin mass ratioOrdered By: Marie Elias on 03-29-2022 Albumin/Globulin [Mass ratio] 1.3 {ratio} [facility] Serum or plasma alkaline thomas sphatase measurement (enzymatic activity/volume)Ordered By: Marie Elias on 03-29-2022 ALP [Catalytic activity/Vol] See comment 32-92 [facility] Comment on above: Specimen hemolyzed, redraw requested Serum or plasma amylase lexus urement (enzymatic activity/volume)Ordered By: Marie Elias on 03-29-2022 Amylase [Catalytic activity/Vol] 29 U/L 28-100 [facility] Serum or plasma anion gap de terminationOrdered By: Marie Elias on 03-29-2022 Anion gap [Moles/Vol] TNP [facility] Comment on above: Test not performed Serum or plasma aspartate am inotransferase measurement (enzymatic activity/volume)Ordered By: Marie Elias on 03-29-2022 AST [Catalytic activity/Vol] See comment 10-42 [facility] Comment on above: Specimen hemolyzed, redraw requested Serum or plasma calcium lexus urement (mass/volume)Ordered By: Marie Elias on 03-29-2022 Calcium [Mass/Vol] 8.8 mg/dL 8.2-10.2 [facility] Serum or plasma chloride sarai surement (moles/volume)Ordered By: Marie Elias on 03-29-2022 Chloride [Moles/Vol] 101 mmol/L 95-114 [facility] Serum or plasma glucose lexus urement (mass/volume)Ordered By: Marie Elias on 03-29-2022 Glucose [Mass/Vol] 347 mg/dL 70-100 [facility] Comment on above: ADA recommended refe rence rangeRandom Glucose Reference Range is dependent on time and content of last meal. Glucose of more than 200 mg/dL in a nonstressed, ambulatory subject supports the diagnosis of Diabetes Mellitus. Serum or plasma potassium me asurement (moles/volume)Ordered By: Marie Elias on 03-29-2022 Potassium [Moles/Vol] See comment 3.5-5.1 [facility] Comment on above: Specimen hemolyzed, redraw requested Serum or plasma sodium measu rement (moles/volume)Ordered By: Marie Elias on 03-29-2022 Sodium [Moles/Vol] 134 mmol/L 136-146 [facility] Serum or plasma total biliru bin measurement (mass/volume)Ordered By: Marie Elias on 03-29-2022 Bilirubin [Mass/Vol] See comment 0.3-1.2 [facility] Comment on above: Specimen hemolyzed, redraw requested Serum or plasma total carbon dioxide measurement (moles/volume)Ordered By: Marie Elias on 03-29-2022 CO2 [Moles/Vol] 21.3 mmol/L 22.0-30.0 [facility] Serum or plasma urea nitroge n measurement (mass/volume)Ordered By: Marie Elias on 03-29-2022 Urea nitrogen [Mass/Vol] 8 mg/dL 9-23 [facility] URINE MICROSCOPIC ONLYon BACTERIA TRACE Abnormal NONE SEEN [facility] Comment on above: Performed By: #### L ACT #### [facility] [address] [address] [address] Aurelio Leavitt Bacteria identified Cx Nom (U) NOT INDICATED Normal [facility] Comment on above: Performed By: #### L ACT #### [facility] [address] [address] [address] Aurelio Leavitt CAST NONE SEEN Normal NONE SEEN [facility] Comment on above: Performed By: #### L ACT #### [facility] [address] [address] [address] Aurelio Leavitt Crystals LM Nom (Urine sed) NONE SEEN Normal NONE SEEN [facility] Comment on above: Performed By: #### L ACT #### [facility] [address] [place] [address] Dr. Aurelio Leavitt Epithelial cells LM Ql (Urine sed) FEW Abnormal NONE SEEN /RARE [facility] Comment on above: Performed By: #### L ACT #### [facility] [address] [address] [address] Aurelio Leavitt MUCOUS NONE SEEN Normal NONE SEEN [facility] Comment on above: Performed By: #### L ACT #### [facility] [address] [place] [address] Dr. Aurelio Leavitt RBC 2-5 Abnormal 0-2 [facility] Comment on above: Performed By: #### L ACT #### [facility] [address] [place] [address] Dr. Aurelio Leavitt WBC 0-2 Abnormal NONE SEEN [facility] Comment on above: Performed By: #### L ACT #### [facility] [address] [place] [address] Dr. Aurelio Leavitt Urine lactic acid measuremen tOrdered By: Marie Elias on 03-29-2022 Lactate (U) [Moles/Vol] 1.0 mmol/L 0.5-2.2 [facility] XR ABD FLAT UP_PA Emanuel 03-29 [...] by: JESSICA BOSTON Date: 2022-03-29 02:02 Normal [facility] AMYLASEon 03-28-2022 Amylase [Catalytic activity/Vol] 27 U/L Normal 25-115 [facility] Comment on above: Performed By: #### A CETON #### [facility] [address] [place] [address] Dr. Aurelio Leavitt CBC AUTO DIFFon 03-28-2022 BASO # 0.1 103/ul Normal 0.0-0.1 [facility] Comment on above: Performed By: #### L ACT #### [facility] [address] [place] [address] Dr. Aurelio Leavitt Basophils/100 WBC (Bld) 0.7 % Normal 0.2-2.0 [facility] Comment on above: Performed By: #### L ACT #### [facility] [address] [place] [address] Dr. Aurelio Leavitt EO # 0.2 103/ul Normal 0.0-0.7 [facility] Comment on above: Performed By: #### L ACT #### [facility] [address] [address] [address] Aurelio Leavitt Eosinophils/100 WBC (Bld) 1.9 % Normal 0.9-7.0 [facility] Comment on above: Performed By: #### L ACT #### [facility] [address] [place] [address] Dr. Aurelio Leavitt Erythrocyte distribution width (RBC) [Ratio] 13.3 % Normal 11.0-15.0 [facility] Comment on above: Performed By: #### L ACT #### [facility] [address] [place] [address] Dr. Aurelio Leavitt Hematocrit (Bld) [Volume fraction] 45.1 % Normal 36.0-48.0 [facility] Comment on above: Performed By: #### L ACT #### [facility] Laboratory [address] [place] [address] Dr. Aurelio Leavitt Hemoglobin (Bld) [Mass/Vol] 16.8 g/dL Critically high 12.0-16.0 [facility] Comment on above: Performed By: #### L ACT #### [facility] Laboratory [address] [place] [address] Dr. Aurelio Leavitt IG # 0.03 10e3/ul Normal 0.00-0.03 [facility] Comment on above: Performed By: #### L ACT #### [facility] Laboratory [address] [place] [address] Dr. Aurelio Leavitt IG % 0.3 % Normal 0.0-0.5 [facility] Comment on above: Performed By: #### L ACT #### [facility] Laboratory [address] [place] [address] Dr. Aurelio Leavitt LYMPH # 3.2 103/ul Normal 1.2-3.8 [facility] Comment on above: Performed By: #### L ACT #### [facility] Laboratory [address] [place] [address] Dr. Aurelio Leavitt Lymphocytes/100 WBC (Bld) 27.9 % Normal 20.5-60.0 [facility] Comment on above: Performed By: #### L ACT #### [facility] Laboratory [address] [place] [address] Dr. Aurelio Leavitt MANUAL DIFF REQ NO Normal [facility] Comment on above: Performed By: #### L ACT #### [facility] Laboratory [address] [place] [address] Dr. Aurelio Leavitt MCH (RBC) [Entitic mass] 33.7 pg Normal 26.7-34.0 [facility] Comment on above: Performed By: #### L ACT #### [facility] Laboratory [address] [place] [address] Dr. Aurelio Leavitt MCHC (RBC) [Mass/Vol] 37.3 g/dL Critically high 29.9-35.2 [facility] Comment on above: Performed By: #### L ACT #### [facility] Laboratory [address] [address] [address] Aurelio Leavitt MCV (RBC) [Entitic vol] 90.4 fL Normal 81.0-99.0 [facility] Comment on above: Performed By: #### L ACT #### [facility] Laboratory [address] [place] [address] Dr. Aurelio Leavitt MONO # 1.1 103/ul Critically high 0.3-0.8 [facility] Comment on above: Performed By: #### L ACT #### [facility] Laboratory [address] [place] [address] Dr. Aurelio Leavitt Monocytes/100 WBC (Bld) 9.5 % Normal 1.7-12.0 [facility] Comment on above: Performed By: #### L ACT #### [facility] Laboratory [address] [place] [address] Dr. Aurelio Leavitt NEUT # 6.8 103/ul Critically high 1.4-6.5 [facility] Comment on above: Performed By: #### L ACT #### [facility] Laboratory [address] [place] [address] Dr. Aurelio Leavitt Neutrophils/100 WBC (Bld) 59.7 % Normal 43.0-75.0 [facility] Comment on above: Performed By: #### L ACT #### [facility] Laboratory [address] [place] [address] Dr. Aurelio Leavitt Platelet mean volume (Bld) [Entitic vol] 12.1 fL Normal 9.5-13.5 [facility] Comment on above: Performed By: #### L ACT #### [facility] Laboratory [address] [place] [address] Dr. Aurelio Leavitt PLT 247 103/ul Normal 150-450 [facility] Comment on above: Performed By: #### L ACT #### [facility] Laboratory [address] [place] [address] Dr. Aurelio Leavitt RBC 4.99 106/ul Normal 4.20-5.40 [facility] Comment on above: Performed By: #### L ACT #### [facility] Laboratory [address] [place] [address] Dr. Aurelio Leavitt WBC 11.3 103/ul Critically high 4.0-11.0 [facility] Comment on above: Performed By: #### L ACT #### [facility] Laboratory [address] [place] [address] Dr. Aurelio Leavitt LIPASEon 03-28-2022 Lipase [Catalytic activity/Vol] 163.0 U/L Normal 73.0-393.0 [facility] Comment on above: Performed By: #### A CETON #### [facility] Laboratory [address] [place] [address] Dr. Aurelio Leavitt GLYCOHEMOGLOBIN A1Con 2021 ADA RECOMMENDATION SEE BELOW Normal [facility] Comment on above: Result Comment: ADA RECOMMENDED LIMIT 4.0 - 6.0 ADA THERAPEUTIC TARGET < 7.0 ACTION SUGGESTED > 7.0 Performed By: #### A CETON #### [facility] Laboratory [address] [place] [address] Dr. Aurelio Leavitt Glucose [Mass/Vol] 232 mg/dL Normal [facility] Comment on above: Performed By: #### A CETON #### [facility] Laboratory [address] [place] [address] Dr. Aurelio Leavitt HbA1c (Bld) [Mass fraction] 9.7 % Critically high 4.5-6.2 [facility] Comment on above: Performed By: #### A CETON #### [facility] Laboratory [address] [place] [address] Dr. Aurelio Leavitt ACETONE SERUMon 11-15-2021 ACETONE Negative Normal NEGATIVE [facility] Comment on above: Performed By: #### A CETON #### [facility] Laboratory [address] [place] [address] Dr. Aurelio Leavitt CBC AUTO DIFFon 11-15-2021 BASO # 0.1 103/ul Normal 0.0-0.1 [facility] Comment on above: Performed By: #### A CETON #### [facility] Laboratory [address] [place] [address] Dr. Aurelio Leavitt Basophils/100 WBC (Bld) 0.9 % Normal 0.2-2.0 [facility] Comment on above: Performed By: #### A CETON #### [facility] Laboratory [address] [place] [address] Dr. Aurelio Leavitt EO # 0.2 103/ul Normal 0.0-0.7 [facility] Comment on above: Performed By: #### A CETON #### [facility] Laboratory [address] [place] [address] Dr. Aurelio Leavitt Eosinophils/100 WBC (Bld) 1.7 % Normal 0.9-7.0 [facility] Comment on above: Performed By: #### A CETON #### [facility] Laboratory [address] [place] [address] Dr. Aurelio Leavitt Erythrocyte distribution width (RBC) [Ratio] 13.5 % Normal 11.0-15.0 [facility] Comment on above: Performed By: #### A CETON #### [facility] Laboratory [address] [place] [address] Dr. Aurelio Leavitt Hematocrit (Bld) [Volume fraction] 44.4 % Normal 36.0-48.0 [facility] Comment on above: Performed By: #### A CETON #### [facility] Laboratory [address] [place] [address] Dr. Aurelio Leavitt Hemoglobin (Bld) [Mass/Vol] 15.4 g/dL Normal 12.0-16.0 [facility] Comment on above: Performed By: #### A CETON #### [facility] Laboratory [address] [place] [address] Dr. Aurelio Leavitt IG # 0.09 10e3/ul Critically high 0.00-0.03 [facility] Comment on above: Performed By: #### A CETON #### [facility] Laboratory [address] [address] [address] Aurelio Leavitt IG % 0.8 % Critically high 0.0-0.5 [facility] Comment on above: Performed By: #### A CETON #### [facility] Laboratory [address] [address] [address] Aurelio Leavitt LYMPH # 3.8 103/ul Normal 1.2-3.8 [facility] Comment on above: Performed By: #### A CETON #### [facility] Laboratory [address] [place] [address] Dr. Aurelio Leavitt Lymphocytes/100 WBC (Bld) 35.1 % Normal 20.5-60.0 [facility] Comment on above: Performed By: #### A CETON #### [facility] Laboratory [address] [place] [address] Dr. Aurelio Leavitt MANUAL DIFF REQ NO Normal [facility] Comment on above: Performed By: #### A CETON #### [facility] Laboratory [address] [place] [address] Dr. Aurelio Leavitt MCH (RBC) [Entitic mass] 32.0 pg Normal 26.7-34.0 [facility] Comment on above: Performed By: #### A CETON #### [facility] Laboratory [address] [place] [address] Dr. Aurelio Leavitt MCHC (RBC) [Mass/Vol] 34.7 g/dL Normal 29.9-35.2 [facility] Comment on above: Performed By: #### A CETON #### [facility] Laboratory [address] [place] [address] Dr. Aurelio Leavitt MCV (RBC) [Entitic vol] 92.1 fL Normal 81.0-99.0 [facility] Comment on above: Performed By: #### A CETON #### [facility] Laboratory [address] [place] [address] Dr. Aurelio Leavitt MONO # 1.0 103/ul Critically high 0.3-0.8 [facility] Comment on above: Performed By: #### A CETON #### [facility] Laboratory [address] [place] [address] Dr. Aurelio Leavitt Monocytes/100 WBC (Bld) 9.0 % Normal 1.7-12.0 [facility] Comment on above: Performed By: #### A CETON #### [facility] Laboratory [address] [place] [address] Dr. Aurelio Leavitt NEUT # 5.6 103/ul Normal 1.4-6.5 [facility] Comment on above: Performed By: #### A CETON #### [facility] Laboratory [address] [place] [address] Dr. Aurelio Leavitt Neutrophils/100 WBC (Bld) 52.5 % Normal 43.0-75.0 [facility] Comment on above: Performed By: #### A CETON #### [facility] Laboratory [address] [place] [address] Dr. Aurelio Leavitt Platelet mean volume (Bld) [Entitic vol] 12.3 fL Normal 9.5-13.5 [facility] Comment on above: Performed By: #### A CETON #### [facility] Laboratory [address] [place] [address] Dr. Aurelio Leavitt PLT 304 103/ul Normal 150-450 [facility] Comment on above: Performed By: #### A CETON #### [facility] Laboratory [address] [place] [address] Dr. Aurelio Leavitt RBC 4.94 106/ul Normal 4.20-5.40 [facility] Comment on above: Performed By: #### A CETON #### [facility] Laboratory [address] [place] [address] Dr. Aurelio Leavitt WBC 11.0 103/ul Normal 4.0-11.0 [facility] Comment on above: Performed By: #### A CETON #### [facility] Laboratory [address] [place] [address] Dr. Aurelio Leavitt Covid-19 PCR ([facility])on SARS-CoV-2 (COVID-19) RNA GABY+probe Ql (Unsp spec) Detected Critically abnormal NOT DETECTED [facility] Comment on above: Result Comment: This test is not yet approved or cleared by the [place] FDA. When there are no FDA-approved or cleared tests available, and other criteria are met, FDA can make tests available under an emergency access mechanism called an Emergency Use Authorization (EUA). The EUA for this test is supported by the [place] of Health and Human Service's declaration that [...] used). Performed By: #### A CETON #### [facility] Laboratory [address] [place] [address] Dr. Aurelio Leavitt D-DIMERon 11-15-2021 D-DIMER 0.30 mg/L FEU Normal <=0.59 [facility] Comment on above: Performed By: #### A CETON #### [facility] Laboratory [address] [place] [address] Dr. Aurelio Leavitt D-DIMER COMMENTS SEE BELOW Normal [facility] Comment on above: Result Comment: Incr eases [...] hospitalization. Performed By: #### A CETON #### [facility] Laboratory [address] [place] [address] Dr. Aurelio Leavitt PROF 14(COMP METB)on 022 Albumin [Mass/Vol] 3.1 g/dL Critically low 3.4-5.0 [facility] Comment on above: Performed By: #### H STROPN, CMP #### [facility] Laboratory [address] [place], [place] [id number] Dr. Aurelio Leavitt Albumin/Globulin [Mass ratio] 0.7 {ratio} Normal [facility] Comment on above: Performed By: #### H GUSPN, CMP #### [facility] Laboratory [address] [address] [address] Aurelio Leavitt ALP [Catalytic activity/Vol] 130 U/L Critically high 46-116 [facility] Comment on above: Performed By: #### H STROPN, CMP #### [facility] Laboratory [address] [place] [address] Dr. Aurelio Leavitt Anion gap [Moles/Vol] 16.1 mmol/L Normal [facility] Comment on above: Performed By: #### H GUSPN, CMP #### [facility] Laboratory [address] [place] [address] Dr. Aurelio Leavitt AST [Catalytic activity/Vol] 11 U/L Critically low 15-37 [facility] Comment on above: Performed By: #### H ANANDA, CMP #### [facility] Laboratory [address] [place] [address] Dr. Aurelio Leavitt Bilirubin [Mass/Vol] 1.0 mg/dL Normal 0.2-1.0 [facility] Comment on above: Performed By: #### H ANANDA, CMP #### [facility] Laboratory [address] [place] [address] Dr. Aurelio Leavitt Calcium [Mass/Vol] 7.3 mg/dL Critically low 8.5-10.1 [facility] Comment on above: Performed By: #### H STROPN, CMP #### [facility] Laboratory [address] [place] [address] Dr. Aurelio Leavitt Chloride [Moles/Vol] 94 mmol/L Critically low 98-107 [facility] Comment on above: Performed By: #### H STROPN, CMP #### [facility] Laboratory [address] [place] [address] Dr. Aurelio Leavitt CO2 [Moles/Vol] 20.6 mmol/L Critically low 21.0-32.0 [facility] Comment on above: Performed By: #### H GUSPN, CMP #### [facility] Laboratory [address] [address] [address] Aurelio Leavitt Creatinine [Mass/Vol] 0.57 mg/dL Normal 0.55-1.02 [facility] Comment on above: Performed By: #### H STROPN, CMP #### [facility] Laboratory [address] [address] [address] Aurelio Leavitt EGFR-AF GABONESE >60 Normal >=60 [facility] Comment on above: Performed By: #### H STROPN, CMP #### [facility] Laboratory [address] [address] [address] Aurelio Leavitt EGFR-NON AF GABONESE >60 Normal >=60 [facility] Comment on above: Performed By: #### H STROPN, CMP #### [facility] Laboratory [address] [address] [address] Aurelio Leavitt Globulin (S) [Mass/Vol] 4.2 g/dL Normal [facility] Comment on above: Performed By: #### H STROZELDA, CMP #### [facility] Laboratory [address] [address] [address] Aurelio Leavitt Glucose [Mass/Vol] 462 mg/dL Critically high 74-106 [facility] Comment on above: Performed By: #### H STROPN, CMP #### [facility] Laboratory [address] [address] [address] Aurelio Leavitt Potassium [Moles/Vol] 4.7 mmol/L Normal 3.5-5.1 [facility] Comment on above: Performed By: #### H STROPN, CMP #### [facility] Laboratory [address] [address] [address] Aurelio Leavitt Protein [Mass/Vol] 7.3 g/dL Normal 6.4-8.2 [facility] Comment on above: Performed By: #### H STROPN, CMP #### [facility] Laboratory [address] [address] [address] Aurelio Leavitt Sodium [Moles/Vol] 126 mmol/L Critically low 136-145 [facility] Comment on above: Performed By: #### H STROPN, CMP #### [facility] Laboratory [address] [address] [address] Aurelio Leavitt Urea nitrogen [Mass/Vol] 14.0 mg/dL Normal 7.0-18.0 [facility] Comment on above: Performed By: #### H GUSPN, CMP #### [facility] Laboratory [address] [place], [place] [address] Dr. Aurelio Leavitt Urea nitrogen/Creatinine [Mass ratio] 24.6 mg/mg Normal [facility] Comment on above: Performed By: #### H GUSPN, CMP #### [facility] Laboratory [address] [address] [address] Aurelio Leavitt TROPONIN, HIGH SENSITIVITYon 11-15-2021 HSTROP 5.3 pg/mL Normal 4.0-51.3 [facility] Comment on above: Result Comment: CUT- OFF POINTS HAVE BEEN ESTABLISHED BASED ON THE FOURTH UNIVERSAL DEFINITIONS OF MYOCARDIAL INFARCTION. THE UPPER REFERENCE LIMIT (URL) OF TROPONIN, DEFINED THE 99TH PERCENTILE OF cTnI DISTRIBUTION IN A REFERENCE POPULATION, HAS BEEN CONFIRMED THE DECISION THRESHOLD FOR LA DIAGNOSIS. Performed By: #### H ANANDA, CMP #### [facility] Laboratory [address] [address] [address] Aurelio Leavitt XR CHEST 1 Von [...] by: CORKY PINTO Date: 2021-11-15 01:06 Normal [facility] ALLIED HEALTHon 03-24-2021 ALLIED HEALTH HNO ID: [id number] Author: RT Jb(R) Service: ? Author Type: [...] PERIPHERAL IV DATA: Not applicable SIGNED BY: RT Jb(R) March 24, 2021 6:37 AM [facility] MRI CERVICAL SPINE WO IVCONo n 03-24-2021 MRI CERVICAL SPINE WO IVCON * * *Final Report* * * DATE OF EXAM: Mar 24 2021 6:50AM [facility] 0297 - MRI CERVICAL SPINE WO [...] is taken as C2-3. Structural anomalies: None. 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 Location: Patient Status: O Ordered Date: 12/16/2019 10:10:00 AM Completed Date: 12/16/2019 10:20 AM Requesting Provider: BENJAMIN CUMMINS Attending Provider: BENJAMIN CUMMINS Report Copy To: Signs & Symptoms: M54.12 Radiculopathy, cervical region I10 History: [place] Comments: Evaluate Exam: CERVICAL SPINE 2 OR 3 S EXAMINATION: CERVICAL SPINE 2 OR 3 S 12/16/2019 10:20 AM CLINICAL HISTORY: M54.12 Radiculopathy, [...] identified. Electronically signed: Sha Gross. Transcribed by: [email or web address], User Resident: Electronically Signed by: SHA GROSS @ 12/16/2019 11:44 AM Normal [facility] Comment on above: Order Comment: Evalu ate MRI KNEE WO CONTRAST LEFTon 12-07-2019 MRI KNEE WO CONTRAST LEFT [facility] Department of Radiology [address] [place] [phone] Patient Name: JACQUELYN ZENG : 1975 Sex: F Age: Race: White Pt. Location: Patient Status: Ordered Date: 11/30/2019 1:55:00 PM Completed Date: 12/07/2019 08:52 AM Requesting Provider: BENJAMIN CUMMINS Attending Provider: Report Copy To: Signs & Symptoms: M25.569 Pain in unspecified knee I10 History: [place], PHONE:[phone],* NEEDS ORTHO F/U APPT. NO METAL Workers comp is approved with this diagnosis, cannot change it. [facility] Approved for CPT 78357 Claim#[id number] Valid 11/27/19-12/11/19 12/01/19 *SLA Comments: Please Evaluate [...] knee. Electronically signed: Michael Thayer. Transcribed by: [email or web address], User Resident: Electronically Signed by: MICHAEL THAYER @ 12/07/2019 11:04 AM Normal [facility] Comment on above: Order Comment: Pleas e Evaluate MRI SHOULDER WO CONTRAST LEF Ton 12-07-2019 MRI SHOULDER WO CONTRAST LEFT [facility] Department of Radiology [address] [place] [phone] Patient Name: JACQUELYN ZENG : 1975 Sex: F Age: Race: White Pt. Location: 84 Patient Status: Ordered Date: 11/30/2019 1:55:00 PM Completed Date: 12/07/2019 08:51 AM Requesting Provider: BENJAMIN CUMMINS Attending Provider: Report Copy To: Signs & Symptoms: M25.512 Pain in left shoulder I10 History: [place], PHONE:[phone],* NEEDS ORTHO F/U APPT. NO METAL [facility] Approved for CPT 85929 Claim#[id number] Valid 11/27/19-12/11/19 12/01/19 *SLA Comments: Please Evaluate [...] ligament. Electronically signed: Michael Thayer. Transcribed by: [email or web address], User Resident: Electronically Signed by: MICHAEL THAYER @ 12/07/2019 10:56 AM Normal [facility] Comment on above: Order Comment: Ya inxon Evaluate KNEE LEFT 4VWSon 10-21-2019 KNEE LEFT 4VWS [facility] Department of Radiology [address] [place] [id number] Patient Name: JACQUELYN ZENG : 1975 Sex: F Age: Race: White Pt. Location: Patient Status: Ordered Date: 10/21/2019 9:50:00 AM Completed Date: 10/21/2019 10:05 AM Requesting Provider: BENJAMIN CUMMINS Attending Provider: Report Copy To: Signs & Symptoms: M25.569 Pain in unspecified knee I10 History: [place] Comments: Views (X-RAY, KNEE): AP, Lateral, Tunnel, [place] , Weight Bearing?: Y Exam: KNEE LEFT 4VWS KNEE LEFT 4VWS 10/21/2019 10:05 AM CLINICAL INDICATIONS: M25.569 Pain in unspecified knee I10 left knee pain, recent falls and injury TECHNOLOGIST COMMENTS: Patient complains of left knee pain. Patient states history of several recent falls. QUESTION FOR THE RADIOLOGIST: Views (X-RAY, KNEE): AP, Lateral, Tunnel, [place] , Weight Bearing?: Y PROTOCOL: AP,Lateral,Tunnel and Tangential views were obtained. COMPARISON: None FINDINGS: There is no joint effusion fracture or dislocation. Mineralization and alignment is within normal limits. Mild lateral patellar tilt. Mild early marginal osteophyte formation. IMPRESSION: Early marginal osteophyte formation without acute ossific normality. Electronically signed: Jessica Garcia. Transcribed by: [email or web address], User Resident: Electronically Signed by: JESSICA GARCIA @ 10/21/2019 11:11 AM Normal [facility] Comment on above: Order Comment: Views (X-RAY, KNEE): AP, Lateral, Tunnel, [place] , Weight Bearing?: Y SHOULDER LEFTon 10-21-2019 SHOULDER LEFT [facility] Department of Radiology [address] [place] [phone] Patient Name: JACQUELYN ZENG : 1975 Sex: F Age: Race: White Pt. Location: 84 Patient Status: Ordered Date: 10/21/2019 9:50:00 AM Completed Date: 10/21/2019 10:03 AM Requesting Provider: BENJAMIN CUMMINS Attending Provider: Report Copy To: Signs & Symptoms: M25.512 Pain in left shoulder I10 History: [place] Comments: Views (X-RAY, SHOULDER): AP, [place], Y-Lateral, [...] Electronically signed: Chepe Espinoza M.D.. Transcribed by: [email or web address], User Resident: Electronically Signed by: CHEPE ESPINOZA @ 10/21/2019 11:59 AM Normal [facility] Comment on above: Order Comment: Views (X-RAY, SHOULDER): AP, [place], Y-Lateral, [place] POC STREP SCREENon 9 STREP POC Negative Normal NEG [facility] Comment on above: Result Comment: Perf ormed in Emergency Department. Performed By: #### 3 [id number] #### [facility] [address] [place] [address], [facility] Vital Signs Date Time Vital Sign Value Performing Clinician Facility 12-23-2024 11:48-0400 Body height 175.3 cm Olu Arce MD Work Phone: [facility] 12-23-2024 11:48-0400 Body mass index (BMI) [Ratio] 31.9 kg/m2 Olu Arce MD Work Phone: [facility] 12-23-2024 11:48-0400 Body weight 97.98 kg Olu Arce MD Work Phone: [facility] 12-23-2024 11:48-0400 Diastolic blood pressure 62 mm[Hg] Olu Arce MD Work Phone: [facility] 12-23-2024 11:48-0400 Systolic blood pressure 130 mm[Hg] Olu Arce MD Work Phone: [facility] 12-04-2024 08:53-0400 Body temperature 97.5 [degF] Kinga Froimson 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 Work Phone: [facility] 12-04-2024 08:53-0400 Diastolic blood pressure 71 mm[Hg] Kinga Froimson 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 Work Phone: [facility] 12-04-2024 08:53-0400 Heart rate 98 /min Kinga Froimson 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 Work Phone: [facility] 12-04-2024 08:53-0400 Respiratory rate 21 /min Kinga Froimson 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 Work Phone: [facility] 12-04-2024 08:53-0400 Systolic blood pressure 116 mm[Hg] Kinga Froimson 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 Work Phone: [facility] 10-22-2024 08:30-0400 Body mass index (BMI) [Ratio] 31.9 kg/m2 Olu Arce MD Work Phone: [facility] 10-22-2024 08:30-0400 Body weight 97.98 kg Olu Arce MD Work Phone: [facility] 10-12-2024 08:25-0400 Body height 175.3 cm Josh Ochoa MD Work Phone: [facility] 10-12-2024 08:25-0400 Body mass index (BMI) [Ratio] 32.64 kg/m2 Josh Ochoa MD Work Phone: [facility] 10-12-2024 08:25-0400 Body temperature 97.81 [degF] Josh Ochoa MD Work Phone: [facility] 10-12-2024 08:25-0400 Body weight 100.25 kg Josh Ochoa MD Work Phone: [facility] 10-12-2024 08:25-0400 Diastolic blood pressure 66 mm[Hg] Josh Ochoa MD Work Phone: [facility] 10-12-2024 08:25-0400 Heart rate 61 /min Josh Ochoa MD Work Phone: [facility] 10-12-2024 08:25-0400 Respiratory rate 22 /min Josh Ochoa MD Work Phone: [facility] 10-12-2024 08:25-0400 SaO2% (BldA) [Mass fraction] 90 % Josh Ochoa MD Work Phone: [facility] 10-12-2024 08:25-0400 Systolic blood pressure 134 mm[Hg] Josh Ochoa MD Work Phone: [facility] 10-08-2024 10:55-0400 Diastolic blood pressure 90 mm[Hg] Jessee Billy MD Work Phone: [facility] 10-08-2024 10:55-0400 Systolic blood pressure 140 mm[Hg] Jessee Billy MD Work Phone: [facility] 10-08-2024 10:27-0400 Body height 175.3 cm Jessee Billy MD Work Phone: [facility] 10-08-2024 10:27-0400 Body mass index (BMI) [Ratio] 31.6 kg/m2 Jessee Billy MD Work Phone: [facility] 10-08-2024 10:27-0400 Body temperature 97 [degF] Jessee Billy MD Work Phone: [facility] 10-08-2024 10:27-0400 Body weight 97.07 kg Jessee Billy MD Work Phone: [facility] 10-08-2024 10:27-0400 Heart rate 94 /min Jessee Billy MD Work Phone: [facility] 09-11-2024 11:41-0400 Diastolic blood pressure 68 mm[Hg] Kinga Froimson 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 Work Phone: [facility] 09-11-2024 11:41-0400 Heart rate 100 /min Kinga Froimson 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 Work Phone: [facility] 09-11-2024 11:41-0400 Systolic blood pressure 121 mm[Hg] Kinga Froimson 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 Work Phone: [facility] 09-10-2024 08:14-0400 Body mass index (BMI) [Ratio] 31.16 kg/m2 Olu Arce MD Work Phone: [facility] 09-10-2024 08:14-0400 Body weight 95.71 kg Olu Arce MD Work Phone: [facility] 09-10-2024 08:14-0400 Diastolic blood pressure 82 mm[Hg] Olu Arce MD Work Phone: [facility] 09-10-2024 08:14-0400 Systolic blood pressure 126 mm[Hg] Olu Arce MD Work Phone: [facility] 08-10-2024 09:24-0400 Body height 175.3 cm Josh Ochoa MD Work Phone: [facility] 08-10-2024 09:24-0400 Body mass index (BMI) [Ratio] 32.19 kg/m2 Josh Ochoa MD Work Phone: [facility] 08-10-2024 09:24-0400 Body temperature 97.11 [degF] Josh Ochoa MD Work Phone: [facility] 08-10-2024 09:24-0400 Body weight 98.88 kg Josh Ochoa MD Work Phone: [facility] 08-10-2024 09:24-0400 Diastolic blood pressure 52 mm[Hg] Josh Ochoa MD Work Phone: [facility] 08-10-2024 09:24-0400 Heart rate 107 /min Josh Ochoa MD Work Phone: [facility] 08-10-2024 09:24-0400 Respiratory rate 22 /min Josh Ochoa MD Work Phone: [facility] 08-10-2024 09:24-0400 SaO2% (BldA) [Mass fraction] 91 % Josh Ochoa MD Work Phone: [facility] 08-10-2024 09:24-0400 Systolic blood pressure 112 mm[Hg] Josh Ochoa MD Work Phone: [facility] 05-11-2024 08:52-0500 Body height 175.3 cm Josh Ochoa MD Work Phone: [facility] 05-11-2024 08:52-0500 Body mass index (BMI) [Ratio] 33.82 kg/m2 Josh Ochoa MD Work Phone: [facility] 05-11-2024 08:52-0500 Body temperature 95.9 [degF] Josh Ochoa MD Work Phone: [facility] 05-11-2024 08:52-0500 Body weight 103.87 kg Josh Ochoa MD Work Phone: [facility] 05-11-2024 08:52-0500 Diastolic blood pressure 74 mm[Hg] Josh Ochoa MD Work Phone: [facility] 05-11-2024 08:52-0500 Heart rate 105 /min Josh Ochoa MD Work Phone: [facility] 05-11-2024 08:52-0500 Respiratory rate 22 /min Josh Ochoa MD Work Phone: [facility] 05-11-2024 08:52-0500 SaO2% (BldA) [Mass fraction] 92 % Josh Ochoa MD Work Phone: [facility] 05-11-2024 08:52-0500 Systolic blood pressure 138 mm[Hg] Josh Ochoa MD Work Phone: [facility] 04-14-2024 10:47-0500 Diastolic blood pressure 72 mm[Hg] Infusion 10 Work Phone: [facility] 04-14-2024 10:47-0500 Heart rate 92 /min Infusion 10 Work Phone: [facility] 04-14-2024 10:47-0500 Systolic blood pressure 110 mm[Hg] Infusion 10 Work Phone: [facility] 04-13-2024 11:16-0500 Diastolic blood pressure 68 mm[Hg] Infusion 5 Work Phone: [facility] 04-13-2024 11:16-0500 Heart rate 102 /min Infusion 5 Work Phone: [facility] 04-13-2024 11:16-0500 Systolic blood pressure 125 mm[Hg] Infusion 5 Work Phone: [facility] 04-08-2024 11:48-0500 Diastolic blood pressure 72 mm[Hg] Infusion 7 Work Phone: [facility] 04-08-2024 11:48-0500 Heart rate 87 /min Infusion 7 Work Phone: [facility] 04-08-2024 11:48-0500 Systolic blood pressure 110 mm[Hg] Infusion 7 Work Phone: [facility] 04-08-2024 08:40-0500 Body temperature 97.5 [degF] Kinga Froimson 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 Work Phone: [facility] 04-08-2024 08:40-0500 Diastolic blood pressure 75 mm[Hg] Kinga Froimson 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 Work Phone: [facility] 04-08-2024 08:40-0500 Heart rate 70 /min Kinga Froimson 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 Work Phone: [facility] 04-08-2024 08:40-0500 Systolic blood pressure 126 mm[Hg] Kinga Froimson 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 Work Phone: [facility] 02-26-2024 09:06-0400 Body height 175.3 cm Sara Pettitiani MARKETING TRAFFIC MANAGER Work Phone: [facility] 02-26-2024 09:06-0400 Body mass index (BMI) [Ratio] 34.7 kg/m2 Sara Graziani MARKETING TRAFFIC MANAGER Work Phone: [facility] 02-26-2024 09:06-0400 Body weight 106.59 kg Sara Graziani MARKETING TRAFFIC MANAGER Work Phone: [facility] 02-26-2024 09:06-0400 Diastolic blood pressure 72 mm[Hg] Sara Graziani MARKETING TRAFFIC MANAGER Work Phone: [facility] 02-26-2024 09:06-0400 Systolic blood pressure 110 mm[Hg] Sara Graziani MARKETING TRAFFIC MANAGER Work Phone: [facility] 01-08-2024 10:24-0400 Body height 175.26 cm MD Josh Ochoa Work Phone: [facility] 01-08-2024 10:24-0400 Body weight 109.76 kg MD Josh Ochoa Work Phone: [facility] 06-20-2023 14:12-0500 Body height 175.3 cm Josh Ochoa MD Work Phone: [facility] 06-20-2023 14:12-0500 Body mass index (BMI) [Ratio] 37.07 kg/m2 Josh Ochoa MD Work Phone: [facility] 06-20-2023 14:12-0500 Body temperature 97.11 [degF] Josh Ochoa MD Work Phone: [facility] 06-20-2023 14:12-0500 Body weight 113.85 kg Josh Ochoa MD Work Phone: [facility] 06-20-2023 14:12-0500 Diastolic blood pressure 78 mm[Hg] Josh Ochoa MD Work Phone: [facility] 06-20-2023 14:12-0500 Heart rate 100 /min Josh Ochoa MD Work Phone: [facility] 06-20-2023 14:12-0500 SaO2% (BldA) [Mass fraction] 96 % Josh Ochoa MD Work Phone: [facility] 06-20-2023 14:12-0500 Systolic blood pressure 140 mm[Hg] Josh Ochoa MD Work Phone: [facility] 01-02-2023 08:39-0400 Diastolic blood pressure 76 mm[Hg] Kinga Froimson 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 Work Phone: [facility] 01-02-2023 08:39-0400 Heart rate 97 /min Kinga Froimson 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 Work Phone: [facility] 01-02-2023 08:39-0400 Systolic blood pressure 127 mm[Hg] Kinga Froimson 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 Work Phone: [facility] 09-06-2022 16:05-0400 Diastolic blood pressure 81 mm[Hg] MD Josh Ochoa Work Phone: [facility] 09-06-2022 16:05-0400 Heart rate 78 /min MD Josh Ochoa Work Phone: [facility] 09-06-2022 16:05-0400 Respiratory rate 16 /min MD Josh Ochoa Work Phone: [facility] 09-06-2022 16:05-0400 SaO2% (BldA) [Mass fraction] 93 % MD Josh Ochoa Work Phone: [facility] 09-06-2022 16:05-0400 Systolic blood pressure 129 mm[Hg] MD Josh Ochoa Work Phone: [facility] 09-06-2022 15:35-0400 Body temperature 98.4 [degF] MD Josh Ochoa Work Phone: [facility] 09-06-2022 15:05-0400 Inhaled oxygen flow rate 8 L/min MD Josh Ochoa Work Phone: [facility] 09-06-2022 13:23-0400 Body height 175.26 cm MD Josh Ochoa Work Phone: [facility] 09-06-2022 13:23-0400 Body mass index (BMI) [Ratio] 33.2 kg/m2 MD Josh Ochoa Work Phone: [facility] 09-06-2022 13:23-0400 Body weight 102.05 kg MD Josh Ochoa Work Phone: [facility] 04-17-2022 10:11-0500 Body height 175.3 cm Kinga Froimson 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 Work Phone: [facility] 04-17-2022 10:11-0500 Body weight 91.63 kg Kinga Froimson 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 Work Phone: [facility] 04-17-2022 10:11-0500 Diastolic blood pressure 76 mm[Hg] Kinga Froimson 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 Work Phone: [facility] 04-17-2022 10:11-0500 Heart rate 103 /min Kinga Froimson 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 Work Phone: [facility] 04-17-2022 10:11-0500 Systolic blood pressure 131 mm[Hg] Kinga Froimson 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 Work Phone: [facility] 01-09-2022 15:11-0400 Body height 175.3 cm Kinga Froimson 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 Work Phone: [facility] 01-09-2022 15:11-0400 Body weight 97.07 kg Kinga Froimson 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 Work Phone: [facility] 01-09-2022 15:11-0400 Diastolic blood pressure 74 mm[Hg] Kinga Froimson 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 Work Phone: [facility] 01-09-2022 15:11-0400 Heart rate 92 /min Kinga Froimson 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 Work Phone: [facility] 01-09-2022 15:11-0400 Respiratory rate 22 /min Kinga Froimson 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 Work Phone: [facility] 01-09-2022 15:11-0400 Systolic blood pressure 137 mm[Hg] Kinga Froimson 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 Work Phone: [facility] 12-31-2021 13:00-0400 Body height 170.18 cm Vianney Collins Other [employer] Other 12-31-2021 13:00-0400 Body mass index (BMI) [Ratio] 33.51 kg/m2 Vianney Collins Other [employer] Other 12-31-2021 13:00-0400 Body temperature 97.5 [degF] Vianney Collins Other [employer] Other 12-31-2021 13:00-0400 Body weight 97.07 kg Vianney Collins Other [employer] Other 12-31-2021 13:00-0400 Diastolic blood pressure 70 mm[Hg] Vianney Recinosmond Other [employer] Other 12-31-2021 13:00-0400 Respiratory rate 18 /min Vianney Collins Other [employer] Other 12-31-2021 13:00-0400 SaO2% (BldA) [Mass fraction] 97 % Vianney Collins Other [employer] Other 12-31-2021 13:00-0400 Systolic blood pressure 122 mm[Hg] Vianney Collins Other [employer] Other 12-09-2021 10:10-0400 Body height Chanel Workman Other [employer] Other 12-09-2021 10:10-0400 Body mass index (BMI) [Ratio] 33.67 kg/m2 Chanel Workman Other [employer] Other 12-09-2021 10:10-0400 Body temperature 98 [degF] Chanel Workman Other [employer] Other 12-09-2021 10:10-0400 Body weight 97.52 kg Chanel Workman Other [employer] Other 12-09-2021 10:10-0400 Diastolic blood pressure 79 mm[Hg] Chanel Workman Other [employer] Other 12-09-2021 10:10-0400 Respiratory rate 20 /min Chanel Workman Other [employer] Other 12-09-2021 10:10-0400 SaO2% (BldA) [Mass fraction] 94 % Chanel Workman Other [employer] Other 12-09-2021 10:10-0400 Systolic blood pressure 132 mm[Hg] Chanel Workman Other [employer] Other Encounters Encounter Date Encounter Type Care Provider Facility Start: 12-23-2024 End: 12-23-2024 B[employer] Unity[employer]heet Olu Arce MD Work Phone: [facility] Start: 12-23-2024 End: 12-23-2024 Microbionheet Olu Arce MD Work Phone: [facility] Start: 12-23-2024 End: 12-23-2024 ambulatory OLU ARCE Not Available Comment on above: Trochanteric bursiti s of both hips (Primary Dx); Radiculopathy, cervical region; Lumbar spondylosis; Cervical spondylosis; Other nerve root and plexus disorders; Nerve root and plexus disorder, unspecified Start: 12-04-2024 End: 12-04-2024 Refill Josh Ochoa MD Work Phone: [facility] Comment on above: Type 2 diabetes neli itus with polyneuropathy (HCC); Generalized anxiety disorder Intractable chronic migraine without aura and without status migrainosus (Primary Dx); Chronic daily headache Start: 11-10-2024 End: 11-10-2024 Refill Olu Arce MD Work Phone: [facility] Comment on above: Lumbar spondylosis; Cervical spondylosis; Other nerve root and plexus disorders Start: 11-05-2024 ambulatory Elmo Solano Facility:[facility] Start: 10-22-2024 End: 10-22-2024 BamD[employer]bles Alleyheet Olu Arce MD Work Phone: [facility] Start: 10-22-2024 End: 10-22-2024 Microbionheet Olu Arce MD Work Phone: [facility] Start: 10-22-2024 End: 10-22-2024 Clinical Support Olu Arce MD Work Phone: [facility] Comment on above: Trochanteric bursiti s of both hips (Primary Dx); Nerve root and plexus disorder, unspecified Start: 10-12-2024 End: 10-12-2024 Bamboo flowsheet Josh Ochoa MD Work Phone: [facility] Start: 10-12-2024 End: 10-12-2024 Bamboo flowsheet Josh Ochoa MD Work Phone: [facility] Start: 10-12-2024 End: 10-12-2024 Office outpatient visit 25 minutes Josh Ochoa MD Work Phone: [facility] Comment on above: Type 2 diabetes neli itus with hyperglycemia, with long-term current use of insulin (CMS/HCC) (Primary Dx); Benign essential HTN (CMS/HCC); ADD (attention deficit disorder) without hyperactivity; MDD (major depressive disorder), recurrent episode, mild (HCC) (CMS/HCC); Generalized anxiety disorder (CMS/HCC); Type 2 diabetes mellitus with polyneuropathy (CMS/HCC); Acute non-recurrent pansinusitis Start: 10-12-2024 End: 10-12-2024 Social Work Dc Levy Manuel [facility] Work Phone: [facility] Comment on above: Major depressive dis order, single episode, severe without psychotic features (HCC) (CMS/HCC); Generalized anxiety disorder (CMS/HCC) Start: 10-09-2024 End: 10-12-2024 Refill Josh Ochoa MD Work Phone: [facility] Comment on above: Generalized anxiety disorder (CMS/HCC) Start: 10-08-2024 End: 10-08-2024 Clinisync Result Encounter Generic External Data Provider [facility] External Department Unsolicited Start: 10-08-2024 End: 10-08-2024 Clinisync Result Encounter Generic External Data Provider [facility] External Department Unsolicited Start: 10-08-2024 End: 10-08-2024 ambulatory [facility] Start: 10-08-2024 End: 10-08-2024 Subsequent hospital visit by physician Jessee Billy MD Work Phone: [facility] Comment on above: Lumbosacral spondylo sis without myelopathy Start: 10-08-2024 End: 10-08-2024 ambulatory [facility] Start: 10-08-2024 End: 10-08-2024 Subsequent hospital visit by physician Fabricio Pain Procedure [facility] Comment on above: Pain Start: 09-22-2024 End: 09-22-2024 ambulatory JOSE FRANCISCO [facility] Start: 09-16-2024 End: 09-18-2024 ambulatory [facility] Start: 09-16-2024 End: 09-18-2024 Subsequent hospital visit by physician Jessee Billy MD Work Phone: [facility] Comment on above: Localized osteoarthr itis of left shoulder Cervical spondylosis without myelopathy; Lumbosacral spondylosis without myelopathy Start: 09-16-2024 End: 09-22-2024 Clinisync Result Encounter Generic External Data Provider [facility] External Department Unsolicited Start: 09-16-2024 End: 09-22-2024 Clinisync Result Encounter Generic External Data Provider [facility] External Department Unsolicited Start: 09-11-2024 End: 09-11-2024 ambulatory KINGA MENDES Facility:[facility] [place] Start: 09-11-2024 End: 09-11-2024 Patient encounter procedure 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 Work Phone: Neurology Comment on above: Intractable chronic migraine without aura and without status migrainosus (Primary Dx); Chronic daily headache Start: 09-10-2024 End: 09-10-2024 Carolin Arce MD Work Phone: [facility] Start: 09-10-2024 End: 05-01-2025 Bamboo flowsheet Olu Arce MD Work Phone: [facility] Start: 09-10-2024 End: 09-10-2024 Clinical Support Olu Arce MD Work Phone: [facility] Comment on above: Trochanteric bursiti s of both hips (Primary Dx); Lumbar spondylosis; Lumbar radiculopathy; Nerve root and plexus disorder, unspecified Start: 09-07-2024 End: 09-07-2024 Bamboo flowsheet Dc L [place] [facility] Work Phone: [facility] Start: 09-07-2024 End: 09-07-2024 Bamboo flowsheet Dc L [place] [facility] Work Phone: [facility] Start: 09-07-2024 End: 09-07-2024 Social Work Dc L [place] [facility] Work Phone: [facility] Comment on above: Major depressive dis order, single episode, severe without psychotic features (HCC) (CMS/HCC); Generalized anxiety disorder (CMS/HCC); Panic disorder (CMS/HCC) Start: 08-27-2024 tk OCHOA Facility :[facility] [place] Start: 08-13-2024 End: 08-13-2024 Social Work Dc L [place] [facility] Work Phone: [facility] Comment on above: Major depressive dis order, single episode, severe without psychotic features (HCC) (CMS/HCC); Generalized anxiety disorder (CMS/HCC) Start: 08-13-2024 End: 08-13-2024 Bamboo flowsheet Dc L [place] [facility] Work Phone: [facility] Start: 08-13-2024 End: 08-13-2024 Bamboo flowsheet Dc L [place] [facility] Work Phone: [facility] Start: 08-12-2024 End: 08-12-2024 Nam Ochoa MD Work Phone: [facility] Comment on above: Generalized anxiety disorder (CMS/HCC) Start: 08-12-2024 End: 08-12-2024 ambulatory [facility] Start: 08-10-2024 End: 08-10-2024 Bamboo flowsheet Josh Ochoa MD Work Phone: [facility] Start: 08-10-2024 End: 08-10-2024 Bamboo flowsheet Josh Ochoa MD Work Phone: [facility] Start: 08-10-2024 End: 08-10-2024 Patient encounter procedure Josh Ochoa MD Work Phone: [facility] Work Phone: Start: 08-10-2024 End: 08-10-2024 Postop follow up visit related to original px Josh Ochoa MD Work Phone: [facility] Comment on above: Medicare annual well ness visit, subsequent (Primary Dx); Type 2 diabetes mellitus with hyperglycemia, with long-term current use of insulin (CMS/HCC); Benign essential HTN (CMS/HCC); Dyslipidemia (CMS/HCC); Encounter for long-term (current) use of medications; Abnormal TSH; Other chronic pancreatitis (CMS/HCC) Start: 08-10-2024 End: 08-10-2024 ambulatory JOSH OCHOA Not Available Start: 07-20-2024 End: 07-23-2024 Clinisync Result Encounter Generic External Data Provider [facility] External Department Unsolicited Start: 07-20-2024 End: 07-23-2024 Clinisync Result Encounter Generic External Data Provider [facility] External Department Unsolicited Start: 07-20-2024 End: 07-20-2024 ambulatory JACQUELYN HUITRON Not Available Start: 07-16-2024 End: 07-16-2024 Bamboo flowsheet Olu Arce MD Work Phone: [facility] Start: 07-16-2024 End: 07-16-2024 Bamboo flowsheet Olu Arce MD Work Phone: [facility] Start: 07-16-2024 End: 07-16-2024 ambulatory OLU ARCE Not Available Start: 07-06-2024 End: 07-06-2024 Bamboo flowsheet Dc L Manuel [facility] Work Phone: [facility] Start: 07-06-2024 End: 07-06-2024 Bamboo flowsheet Dc L Manuel [facility] Work Phone: [facility] Start: 07-06-2024 End: 07-06-2024 Social Work Dckhalida [place] [facility] Work Phone: [facility] Comment on above: Major depressive dis order, single episode, severe without psychotic features (HCC) (CMS/HCC); Generalized anxiety disorder (CMS/HCC); Panic disorder (CMS/HCC) Start: 06-29-2024 End: 06-29-2024 Telephone encounter 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 APRN.CNP Work Phone: Neurology Comment on above: Referral Request Start: 06-23-2024 End: 06-23-2024 ambulatory JOSE FRANCISCO [facility] Start: 06-02-2024 End: 06-02-2024 Refill Olu Arce MD Work Phone: [facility] Comment on above: Lumbar spondylosis; Cervical spondylosis; Other nerve root and plexus disorders Generalized anxiety disorder (CMS/HCC); Hyperlipidemia, unspecified (CMS/HCC) Start: 05-18-2024 End: 05-18-2024 Bamboo flowsheet Dc L Manuel [facility] Work Phone: [facility] Start: 05-18-2024 End: 05-18-2024 Bamboo flowsheet Dc L [place] [facility] Work Phone: [facility] Start: 05-18-2024 End: 05-18-2024 Social Work Dc L Manuel [facility] Work Phone: [facility] Comment on above: Major depressive dis order, single episode, severe without psychotic features (HCC) (CMS/HCC); Generalized anxiety disorder (CMS/HCC); Panic disorder (CMS/HCC) Start: 05-11-2024 End: 05-11-2024 Bamboo flowsheet Josh Ochoa MD Work Phone: [facility] Start: 05-11-2024 End: 05-11-2024 Bamboo flowsheet Josh Ochoa MD Work Phone: [facility] Start: 05-11-2024 End: 05-11-2024 Office outpatient visit 25 minutes Josh Ochoa MD Work Phone: [facility] Comment on above: Type 2 diabetes neli itus with hyperglycemia, with long-term current use of insulin (CMS/HCC) (Primary Dx); Benign essential HTN (CMS/HCC); ADD (attention deficit disorder) without hyperactivity; MDD (major depressive disorder), recurrent episode, mild (HCC) (CMS/HCC); Generalized anxiety disorder (CMS/HCC); Type 2 diabetes mellitus with polyneuropathy (CMS/HCC); Other chronic pancreatitis (CMS/HCC); Acute non-recurrent pansinusitis Start: 05-11-2024 End: 05-11-2024 ambulatory JOSH OCHOA Not Available Start: 04-20-2024 End: 04-20-2024 Refill Carolynn Reyes NP Work Phone: [facility] Start: 04-14-2024 End: 04-15-2024 Patient encounter procedure Marilynn Lua PA-C Work Phone: Neurology Comment on above: Status migrainosus ( Primary Dx) Start: 04-14-2024 End: 04-14-2024 ambulatory Infusion Main Chair 10 Work Phone: Neurology Comment on above: Status migrainosus ( Primary Dx) Start: 04-13-2024 End: 04-13-2024 ambulatory Infusion Main Chair 5 Work Phone: Neurology Comment on above: Status migrainosus ( Primary Dx) Start: 04-08-2024 End: 04-08-2024 ambulatory Infusion Main Chair 7 Work Phone: Neurology Comment on above: Status migrainosus ( Primary Dx) Start: 04-08-2024 End: 04-08-2024 Patient encounter procedure Kingaher Fred SOLORZANO.RETAIL FIELD SUPERVISOR Work Phone: Neurology Comment on above: Intractable chronic migraine without aura and without status migrainosus (Primary Dx); Chronic daily headache; Status migrainosus Start: 04-06-2024 End: 04-06-2024 ambulatory JOSE FRANCISCO M[facility] Start: 03-31-2024 End: 03-31-2024 Nam Ochoa MD Work Phone: [facility] Comment on above: Generalized anxiety disorder (CMS/HCC); ADD (attention deficit disorder) without hyperactivity Start: 03-30-2024 End: 04-06-2024 Telephone encounter 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 APRN.RETAIL FIELD SUPERVISOR Work Phone: Neurology Comment on above: Botox Injection Start: 03-30-2024 End: 03-30-2024 ambulatory SARA KRAMER Not Available Start: 03-30-2024 End: 03-30-2024 Phys/qhp telephone evaluation 11-20 min Sara Kramer MARKETING TRAFFIC MANAGER Work Phone: [facility] NE[facility]O 210 Comment on above: Intractable chronic migraine without aura and without status migrainosus (CMS/HCC) (Primary Dx); Cervical spondylosis; Lumbar spondylosis; Complex regional pain syndrome type 1, affecting unspecified site; Trochanteric bursitis of both hips Start: 03-25-2024 End: 03-25-2024 Telephone encounter Olu Arce MD Work Phone: [facility] NEURO 210 Start: 03-24-2024 End: 03-24-2024 Bamboo flowsheet Dc Jackson [facility] Work Phone: [facility] Start: 03-24-2024 End: 03-24-2024 Bamboo flowsheet Dc Jackson [facility] Work Phone: [facility] Start: 03-24-2024 End: 03-24-2024 Social Work Dc Jackson [facility] Work Phone: [facility] Comment on above: Major depressive dis order, single episode, severe without psychotic features (HCC) (CMS/HCC); Generalized anxiety disorder (CMS/HCC); Panic disorder (CMS/HCC); Insomnia, unspecified type Start: 02-26-2024 End: 02-26-2024 Bamboo flowsheet Sara Kramer MARKETING TRAFFIC MANAGER Work Phone: [facility] Start: 02-26-2024 End: 02-26-2024 Bamboo flowsheet Sara Kramer MARKETING TRAFFIC MANAGER Work Phone: [facility] Start: 02-26-2024 End: 02-26-2024 Clinical Support Sara Kramer MARKETING TRAFFIC MANAGER Work Phone: [facility] NEURO 210 Comment on above: Trochanteric bursiti s of both hips (Primary Dx); Cervical paraspinal muscle spasm; Complex regional pain syndrome type 1, affecting unspecified site; Migraine without aura and without status migrainosus, not intractable (CMS/HCC); Lumbar spondylosis; Cervical spondylosis; Other nerve root and plexus disorders Start: 02-17-2024 End: 02-17-2024 Convo Dc Jackson [facility] Work Phone: [facility] Start: 02-17-2024 End: 02-17-2024 Convo Dc Jackson [facility] Work Phone: [facility] Start: 02-17-2024 End: 02-17-2024 Social Loctronix Dc Jackson [facility] Work Phone: [facility] Comment on above: Major depressive dis order, single episode, severe without psychotic features (HCC) (CMS/HCC); Generalized anxiety disorder (CMS/HCC); Panic disorder (CMS/HCC) Start: 02-12-2024 End: 02-12-2024 ambulatory JOSE FRANCISCO MARR [facility] Start: 02-07-2024 End: 02-07-2024 Clinisync Result Encounter Generic External Data Provider [facility] External Department Unsolicited Start: 02-07-2024 End: 02-07-2024 Clinisync Result Encounter Generic External Data Provider [facility] External Department Unsolicited Start: 02-07-2024 End: 02-07-2024 ambulatory [facility] Start: 01-23-2024 End: 01-23-2024 Bamboo flowsheet Dc Cam Jackson [facility] Work Phone: [facility] Start: 01-23-2024 End: 01-23-2024 Bamboo flowsheet Dc Jackson [facility] Work Phone: [facility] Start: 01-23-2024 End: 01-23-2024 Social Work Dc Cam Jackson [facility] Work Phone: [facility] Comment on above: Major depressive dis order, single episode, severe without psychotic features (HCC) (CMS/HCC); Generalized anxiety disorder (CMS/HCC) Start: 01-22-2024 End: 01-22-2024 Refill Josh Ochoa MD Work Phone: [facility] Comment on above: Generalized anxiety disorder (CMS/HCC) Start: 01-15-2024 End: 01-15-2024 ambulatory PHILIP PFEIFFER Facility:[facility] Start: 01-08-2024 End: 01-08-2024 ambulatory MD Josh Ochoa Work Phone: [facility] Work Phone: Start: 01-08-2024 End: 01-08-2024 Departed Referred MD Josh Ochoa Work Phone: [facility] Work Phone: Start: 12-26-2023 End: 12-26-2023 Social Work Dc Jackson [facility] Work Phone: [facility] Comment on above: Major depressive dis order, single episode, severe without psychotic features (HCC) (CMS/HCC); Generalized anxiety disorder (CMS/HCC); Panic disorder (CMS/HCC) Start: 10-24-2023 End: 03-04-2024 Telephone encounter 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 Work Phone: Neurology Comment on above: Forms; c (Worker's Comp) C9 Botox form Start: 10-08-2023 Telephone encounter Kinga mae 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 Work Phone: Neurology Comment on above: Patient Question Start: 06-22-2023 Clinisync Result Encounter Josh Ochoa MD Work Phone: [facility] External Department Unsolicited Start: 06-22-2023 Clinisync Result Encounter Josh Ochoa MD Work Phone: [facility] External Department Unsolicited Start: 06-21-2023 Refill Josh Petersen Work Phone: [facility] Comment on above: Generalized anxiety disorder (CMS/HCC) Start: 06-20-2023 End: 06-20-2023 Office outpatient visit 25 minutes Josh Ochoa MD Work Phone: [facility] Comment on above: Type 2 diabetes neli itus with hyperglycemia, with long-term current use of insulin (CMS/HCC) (Primary Dx); Benign essential HTN (CMS/HCC); ADD (attention deficit disorder) without hyperactivity; MDD (major depressive disorder), recurrent episode, mild (HCC) (CMS/HCC); Generalized anxiety disorder (CMS/HCC); Mild intermittent asthma without complication (CMS/HCC); Complex regional pain syndrome type 1, affecting unspecified site; Mixed hyperlipidemia (CMS/HCC); MCFP (current) use of insulin (Z79.4) Start: 06-20-2023 Bamboo flowsheet Josh Ochoa MD Work Phone: [facility] Start: 06-20-2023 Bamboo flowsheet Josh Ochoa MD Work Phone: [facility] Start: 06-17-2023 End: 03-04-2024 Telephone encounter 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 Work Phone: Neurology Comment on above: Forms ([facility] forms) Start: 03-25-2023 Telephone encounter Kinga mae 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 Work Phone: Otolaryngology Comment on above: Appointment Start: 01-02-2023 End: 01-02-2023 Patient encounter procedure 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 APRN.RETAIL FIELD SUPERVISOR Work Phone: Neurology Comment on above: Intractable chronic migraine without aura and without status migrainosus (Primary Dx); Chronic daily headache Start: 10-10-2022 End: 10-10-2022 Patient encounter procedure 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 Work Phone: Neurology Comment on above: Intractable chronic migraine without aura and without status migrainosus (Primary Dx); Chronic daily headache Start: 09-06-2022 End: 09-06-2022 Admission to same day surgery center MD Josh Ochoa Work Phone: [facility] [place] Start: 09-06-2022 End: 09-06-2022 ambulatory MD Josh Ochoa Work Phone: [facility] Work Phone: Start: 08-28-2022 End: 08-29-[address] BARTOLOME RODRIGUEZ Facility:[facility]1 Start: 08-27-2022 End: 08-27-2022 ambulatory MD Josh Ochoa Work Phone: [facility] Work Phone: Start: 08-27-2022 End: 08-27-2022 Patient encounter procedure MD Josh Ochoa Work Phone: [facility] Work Phone: Start: 08-01-[address] JOSH OCHOA [facility] ity:H1 Start: 07-30-2022 Encounter for genera l adult medical examination without abnormal findings DR JOSH OCHOA [facility] Start: 07-24-2022 End: 07-25-[address] JOSH OCHOA Facility:[facility] Start: 07-24-2022 End: 07-25-2022 Encounter for general adult medical examination without abnormal findings DR JOSH OCHOA Facility:[facility] Start: 07-17-2022 Telephone encounter Kinga liukimmie 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 Work Phone: Otolaryngology Comment on above: Referral Request Start: 07-17-2022 End: 07-17-2022 Patient encounter procedure 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 Work Phone: Neurology Comment on above: Intractable chronic migraine without aura and without status migrainosus (Primary Dx) Start: 07-10-2022 End: 07-11-[address] AVINASH SERRATO Facility:H1 Start: 06-26-2022 End: 06-27-[address] AVINASH SERRATO Facility:[facility] Start: 04-17-2022 End: 04-17-2022 Patient encounter procedure Kinga Jeffersondarryl 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 Work Phone: Neurology Comment on above: Intractable chronic migraine without aura and without status migrainosus (Primary Dx) Start: 03-29-2022 End: 03-29-2022 ambulatory MD Josh Ochoa Work Phone: [facility] Work Phone: Start: 03-29-2022 End: 03-29-2022 Patient encounter procedure MD Josh Ochoa Work Phone: [facility] Start: 03-29-2022 End: 03-29-2022 ambulatory MARIE ELIAS Facility:[facility]1 Start: 03-28-2022 End: 03-29-[address] JOSH OCHOA Facility:[facility] Start: 01-09-2022 End: 01-09-2022 Patient encounter procedure Kinga Jeffersonabielkimmie 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 Work Phone: Neurology Comment on above: Intractable chronic migraine without aura and without status migrainosus (Primary Dx) Start: 12-31-2021 End: 12-31-2021 ambulatory Vianney Collins Other [employer] Other Start: 12-31-2021 Office outpatient vi sit 25 minutes Vianney Collins [facility] Start: 12-13-2021 End: 12-14-[address] JOSH OCHOA Facility: Start: 12-09-2021 End: 12-09-2021 ambulatory Chanel Workman Other [facility] [employer] Other Start: 12-09-2021 Office outpatient vi sit 15 minutes Chanel Workman [facility] Start: 11-15-2021 End: 11-15-[address] MEG TIDWELL . Facility: Start: 09-08-2021 Telephone encounter Kinga mae APRN.RETAIL FIELD SUPERVISOR Work Phone: Neurology Comment on above: Referral Request Start: 01-12-2020 End: 01-27-2020 Patient encounter procedure BENJAMIN EBRAHEIM Facility:[facility] Start: 12-07-2019 End: 12-08-2019 Patient encounter procedure BENJAMIN EBRAHEIM Facility:[facility] Start: 10-21-2019 End: 10-22-2019 Patient encounter procedure BENJAMIN EBRAHEIM Facility:[facility] Start: 02-18-2019 End: 02-18-2019 Emergency department patient visit CHONG CARRERO Facility:[facility] Procedures Date Procedure Procedure Detail Performing Clinician Start: 10-08-2024 Fluoroscopy during operation Jessee Billy MD Work Phone: Start: 10-08-2024 FLUORO FOR SURGICAL PROCEDURES Generic External Data Provider Start: 09-16-2024 XR CERVICAL SPINE (4 -5 VIEWS) Generic External Data Provider Start: 09-16-2024 XR LUMBAR SPINE (MIN 4 VIEWS) Generic External Data Provider Start: 09-16-2024 XR SHOULDER LEFT (LA N 2 VIEWS) Generic External Data Provider Start: 07-20-2024 IGP,APTIMA HPV,AGE GDLN Jacquelyn PFEIFFER Work Phone: Start: 07-20-2024 Microscopic observat ion [Identifier] in Cervix by Cyto stain Josh Ochoa MD Work Phone: Start: 02-07-2024 ALL LIPID PROFILE (FASTING) Generic External Data Provider Start: 02-07-2024 [facility] DIRECT LDL Generic External Data Provider Start: 06-22-2023 [facility] MICROALBUMIN, RA ND UR Josh Ochoa MD Work Phone: Start: 06-22-2023 ALL CBC WITH AUTO DIFF Josh Ochoa MD Work Phone: Start: 06-22-2023 MLR HEMOGLOBIN A1C Josh Ochoa MD Work Phone: Start: 02-26-2023 Microscopic observat ion [Identifier] in Cervix by Cyto stain Olu Arce MD Work Phone: Start: 09-06-2022 Excision of cyst MD Yulia Ochoa Work Phone: Start: 08-29-2022 History of placement of stent for coronary artery disease S/P drug eluting coronary stent placement Josh Ochoa MD Work Phone: Start: 08-28-2022 Mammography Josh ngo MD Work Phone: Start: 09-07-2021 Adult depression screening assessment 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 APRN.RETAIL FIELD SUPERVISOR Work Phone: Start: 07-11-2020 Microscopic observat ion [Identifier] in Cervix by Cyto stain Josh Ochoa MD Work Phone: Plan of Treatment Date Care Activity Detail Author Start: 02-27-2028 Screening for malign ant neoplasm of cervix [facility] Start: 09-23-2027 Diabetes Screening Diabetes Screenin [facility] Start: 07-21-2027 Screening for malign ant neoplasm of cervix Pap Smear [facility] Start: 06-23-2027 Diabetes Screening Diabetes Screenin [facility] Start: 02-11-2027 Diabetes Screening Diabetes Screenin [facility] Start: 10-05-2025 DIABETES SCREEN DIABETES SCREEN [facility] Start: 10-05-2025 Diabetes Screening Diabetes Screenin [facility] Start: 08-10-2025 Medicare Annual Well ness (AWV) Medicare Annual Wellness (AWV) [facility] Start: 07-26-2025 End: 07-26-2025 Patient encounter procedure [facility] Start: 07-20-2025 Medicare Annual Well ness (AWV) Medicare Annual Wellness (AWV) [facility] Start: 07-11-2025 Screening for malign ant neoplasm of cervix [facility] Start: 04-13-2025 End: 04-13-2025 Patient encounter procedure 04/13/2025 9:00 AM EST [facility] [address] [place] [address] Josh Ochoa MD [address] [place] [address] [facility] Start: 03-05-2025 Glaucoma screening Diabetes: R etinopathy Screening [facility] Start: 03-03-2025 End: 03-03-2025 Patient encounter procedure 03/03/2025 11:30 AM EDT Office Visit Neurology [address] [facility] [address], [place] [address] 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 APRN.RETAIL FIELD SUPERVISOR [address] [place], [place] [id number] 12 week botox Neurology Comment on above: 12 week botox Start: 02-17-2025 End: 02-17-2025 Clinical Support 02/17/2025 8:00 AM EDT Clinical [facility] [address] [facility] [address] [place] [address] Olu Arce MD [address] [facility] [address] [id number] [facility] [place] [facility] Start: 01-11-2025 Influenza vaccination N [facility] Start: 12-23-2024 End: 12-23-2024 Clinical Support [facility] Comment on above: Arrived Start: 12-21-2024 Hemoglobin A1c measurement Diabetes: Hemoglobin A1C [facility] Start: 12-11-2024 Influenza vaccination Flu vacc ine (Season Ended) [facility] Start: 12-04-2024 End: 12-04-2024 Patient encounter procedure 12/04/2024 9:00 AM EDT Office Visit Neurology [address], [place] [address] 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 APRN.RETAIL FIELD SUPERVISOR [address] [place] [address] BOTOX Neurology Comment on above: BOTOX Start: 11-16-2024 End: 11-16-2024 Social Work 11/16/2024 10:00 AM EDT Social Work [facility] [address] [place] [address] Dc Jackson, [facility] [address] [place] [address] [facility] Start: 10-22-2024 End: 10-22-2024 Clinical Support [facility] Comment on above: Arrived Start: 10-12-2024 End: 10-12-2024 Patient encounter procedure [facility] Comment on above: Arrived Start: 09-10-2024 End: 09-10-2024 Clinical Support [facility] Comment on above: Arrived Start: 09-07-2024 End: 09-07-2024 Social Work 09/07/2024 10:00 AM EDT Social Work [facility] [address] [place] [address] Dc Jackson, [facility] [address] [place] [address] [facility] Start: 2024 Shingles vaccine (1 of 2) Shingles vaccine (1 of 2) [facility] Start: 2024 Shingrix Vaccine (1 of 2) Shingrix Vaccine (1 of 2) [facility] Start: 08-28-2024 Screening for malign ant neoplasm of breast Breast cancer screen [facility] Start: 08-13-2024 End: 08-13-2024 Social Work 08/13/2024 3:00 PM EDT Social Work [facility] [address] [place] [address] Dc Jackson, [facility] [address] [place] [address] [facility] Start: 08-12-2024 Hemoglobin A1c measurement Diabetes: Hemoglobin A1C [facility] Start: 08-10-2024 End: 08-10-2025 Basic metabolic 1998 panel - Serum or Plasma Basic metabolic panel Lab Routine Encounter for long-term (current) use of medications Expected: 08/10/2024 (Approximate), Expires: 08/10/2025 [facility] Comment on above: Expected: 08/10/2024 (Approximate), Expires: 08/10/2025 Start: 08-10-2024 End: 08-10-2025 CBC W Auto Differential panel - Blood CBC and differential Lab Routine Encounter for long-term (current) use of medications Expected: 08/10/2024 (Approximate), Expires: 08/10/2025 [facility] Comment on above: Expected: 08/10/2024 (Approximate), Expires: 08/10/2025 Start: 08-10-2024 End: 08-10-2025 Hemoglobin A1c/Hemoglobin.total in Blood Hemoglobin A1c Lab Routine Type 2 diabetes mellitus with hyperglycemia, with long-term current use of insulin ([facility]) Expected: 08/10/2024 (Approximate), Expires: 08/10/2025 [facility] Comment on above: Expected: 08/10/2024 (Approximate), Expires: 08/10/2025 Start: 08-10-2024 End: 08-10-2025 Hepatic function 2000 panel - Serum or Plasma Hepatic function panel Lab Routine Encounter for long-term (current) use of medications Expected: 08/10/2024 (Approximate), Expires: 08/10/2025 [facility] Comment on above: Expected: 08/10/2024 (Approximate), Expires: 08/10/2025 Start: 08-10-2024 End: 08-10-2025 Lipid 1996 panel - Serum or Plasma Lipid panel Lab Routine Dyslipidemia ([facility]/HCC) Expected: 08/10/2024 (Approximate), Expires: 08/10/2025 [facility] Comment on above: Expected: 08/10/2024 (Approximate), Expires: 08/10/2025 Start: 08-10-2024 End: 08-10-2025 Microalbumin/Creatinine panel in random Urine Microalbumin / creatinine, urine ratio Lab Routine Type 2 diabetes mellitus with hyperglycemia, with long-term current use of insulin ([facility]) Expected: 08/10/2024 (Approximate), Expires: 08/10/2025 [facility] Work Phone: Comment on above: Expected: 08/10/2024 (Approximate), Expires: 08/10/2025 Start: 08-10-2024 End: 08-10-2025 Thyrotropin [Units/volume] in Serum or Plasma TSH Lab Routine Abnormal TSH Expected: 08/10/2024 (Approximate), Expires: 08/10/2025 [facility] Comment on above: Expected: 08/10/2024 (Approximate), Expires: 08/10/2025 Start: 08-10-2024 End: 08-10-2025 Thyroxine (T4) free [Mass/volume] in Serum or Plasma T4, free Lab Routine Abnormal TSH Expected: 08/10/2024 (Approximate), Expires: 08/10/2025 [facility] Comment on above: Expected: 08/10/2024 (Approximate), Expires: 08/10/2025 Start: 08-10-2024 End: 08-10-2024 Patient encounter procedure [facility] Comment on above: Arrived Start: 08-03-2024 End: 08-03-2024 Social Work 08/03/2024 3:00 PM EDT Social Work [facility] [address] [place] [address] Dc Jackson, [facility] [address] [place] [address] [facility] Start: 07-20-2024 End: 07-20-2024 Patient encounter procedure 07/20/2024 9:00 AM EDT Office Visit [facility] [address] [facility] [address] Jacquelyn Huitron PA [address] [facility] [address] [place] [address] [facility] Start: 07-16-2024 End: 07-16-2024 Clinical Support [facility] Comment on above: Arrived Start: 06-22-2024 Urine screening for protein Diabetes: [facility]rine [facility] Start: 06-15-2024 End: 06-15-2024 Social Work 06/15/2024 2:00 PM EST Social Work [facility] [address] [place] [phone] Dc Jackson, [facility] [address] [place] [address] [facility] Start: 06-11-2024 End: 06-11-2024 Clinical Support 06/11/2024 2:35 PM EST Clinical Support [facility] [address] [place] [address] Sara Kramer, MARKETING TRAFFIC MANAGER [address] [facility] [address] Chen [address] [place] [address] [facility] Start: 06-02-2024 End: 06-02-2024 Patient encounter procedure 06/02/2024 9:00 AM EST Office Visit [facility] OB [address] [facility] [phone] Jacquelyn Huitron PA [address] [facility] [place] [address] [facility] Start: 05-18-2024 End: 05-18-2024 Social Work 05/18/2024 1:00 PM EST Social Work [facility] [address] [place] [address] Dc Jackson, [facility] [address] [place] [address] [facility] Start: 05-14-2024 End: 05-14-2024 Patient encounter procedure 05/14/2024 9:00 AM EST Office Visit [facility] OB [address] [facility] [phone] Jacquelyn Huitron PA [address] [facility] [place] [address] [facility] Start: 05-13-2024 Annual Wellness Visi t (Medicare Advantage) Annual Wellness Visit (Medicare Advantage) [facility] Start: 05-11-2024 End: 05-11-2024 Patient encounter procedure [facility] Comment on above: Arrived Start: 04-15-2024 End: 04-15-2024 Clinical Support 04/15/2024 8:00 AM EST Clinical Support [facility] [address] [facility] [address] CHEN [address] [place] [phone] Sara Kramer, MARKETING TRAFFIC MANAGER [address] [facility] [address] Chen [address] [place] [address] [facility] 210 Start: 04-14-2024 End: 04-14-2024 Social Work [facility] Comment on above: Non-[facility] #3 Infusion Day 3 Start: 04-09-2024 Influenza vaccination Influenza Vacc ine (#1) [facility] Comment on above: Postponed from 01/11 (Other Patient Reasons) Start: 04-08-2024 End: 04-08-2024 Patient encounter procedure 04/08/2024 8:30 AM EST Office Visit Neurology [address] [place] [address] 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 APRN.RETAIL FIELD SUPERVISOR [address] [place] [address] BOTOX Q12 weeks authorized er 04/02/2025 Neurology Comment on above: BOTOX Q12 weeks auth orized er 04/02/2025 Start: 03-30-2024 End: 03-30-2025 IV infusion less than or equal to 1hr IV infusion less than or equal to 1hr Procedures STAT Intractable chronic migraine without aura and without status migrainosus (CMS/HCC) Expected: 03/30/2024 (Approximate), Expires: 03/30/2025 [facility] Work Phone: Comment on above: Expected: 03/30/2024 (Approximate), Expires: 03/30/2025 Start: 03-30-2024 End: 03-30-2024 Patient encounter procedure 03/30/2024 8:15 AM EST Office Visit [facility] 210 [address] [place] [address], [place] [phone] Sara Kramer, MARKETING TRAFFIC MANAGER [address] Chen [address] [place] [address], [place] [address] [facility] NE[facility] 210 Start: 03-24-2024 End: 03-24-2024 Social Work 03/24/2024 11:00 AM EST Social Work [facility] [address] [place] [address] Dc Jackson, [facility] [address] [place] [address] [facility] Start: 03-19-2024 End: 03-19-2024 Patient encounter procedure 03/19/2024 2:30 PM EST Office Visit [facility] [address] [place] [phone] Josh Ochoa MD [address] [place] [phone] [facility] Start: 03-11-2024 End: 03-11-2024 Patient encounter procedure 03/11/2024 9:30 AM EDT Office Visit Neurology [address] [place] [address] Kniga Mendes APRN.RETAIL FIELD SUPERVISOR [address] [place] [address] [facility] Comment on above: Botox Start: 03-05-2024 Glaucoma screening Diabetes: R etinopathy Screening [facility] Start: 02-27-2024 Medicare Annual Well ness (AWV) Medicare Annual Wellness (AWV) [facility] Start: 02-26-2024 End: 02-26-2024 Clinical Support [facility] 210 Comment on above: Arrived Start: 02-17-2024 End: 02-17-2024 Social Work 02/17/2024 2:00 PM EDT Social Work [facility] [address] [place] [phone] Dc Jackson, [facility] [address] [place] [address] [facility] Start: 01-28-2024 End: 01-28-2024 Clinical Support 01/28/2024 9:00 AM EDT Clinical Support [facility] NE[facility] 210 [address] [place] [address], [place] [address] Sara Kramer, MARKETING TRAFFIC MANAGER [address] [place] [address], [place] [address] [facility] 210 Start: 01-23-2024 End: 01-23-2024 Social Work 01/23/2024 2:00 PM EDT Social Work [facility] [address] [place] [address] Dc Jackson, [facility] [address] [place] [address] [facility] Start: 01-12-2024 Covid-19 Vaccine ( season) Covid-19 Vaccine () [facility] Start: 01-12-2024 Influenza vaccination Influenza Vacc ine (#1) [facility] Start: 12-21-2023 Hemoglobin A1c measurement Diabetes: Hemoglobin A1C [facility] Start: 08-29-2023 Screening for malign ant neoplasm of breast [facility] Start: 08-01-2023 End: 08-01-2023 Clinical Support 08/01/2023 1:40 PM EDT Clinical Support [facility] [address] [place] [address] Olu Arce MD 53[address] [facility] [address] Chen [address] [place] [address] [facility] Start: 07-15-2023 End: 07-15-2023 Patient encounter procedure 07/15/2023 8:15 AM EST Office Visit [facility] [address] [place] [address] Josh Ochoa MD [address] [place] [address] [facility] Start: 07-02-2023 End: 07-02-2023 Patient encounter procedure 07/02/2023 12:00 PM EST Office [facility] [address] CHEN [address] [place] [phone] Sara Kramer MARKETING TRAFFIC MANAGER 53[address] [facility] [address] Chen [address] [place] [address] [facility] NE[facility]O 210 Start: 07-01-2023 End: 07-01-2023 Social Work 07/01/2023 10:00 AM EST Social Work [facility] [address] [place] [address] Dc Jackson, [facility] [address] [place] [address] [facility] Start: 06-20-2023 End: 06-20-2023 Patient encounter procedure 06/20/2023 2:15 PM EST Office Visit [facility] [address] [place] [address] Josh Ochoa MD [address] [place] [address] Arrived [facility] Comment on above: Arrived Start: 06-20-2023 End: 06-20-2024 Albumin, urine, random Albumin, urine, random Lab Routine Type 2 diabetes mellitus with hyperglycemia, with long-term current use of insulin ([facility]) Expected: 06/20/2023 (Approximate), Expires: 06/20/2024 [facility] Comment on above: Expected: 06/20/2023 (Approximate), Expires: 06/20/2024 Start: 06-20-2023 End: 06-20-2024 Hemoglobin A1c measurement Hemoglobin A1c Lab Routine Type 2 diabetes mellitus with hyperglycemia, with long-term current use of insulin (CMS/HCC) Expected: 06/20/2023 (Approximate), Expires: 06/20/2024 [facility] Work Phone: Comment on above: Expected: 06/20/2023 (Approximate), Expires: 06/20/2024 Start: 05-13-2023 Behavioral Health Screening Behavioral Health Screening [facility] Start: 01-11-2023 Covid-19 Vaccine () Covid-19 Vaccine () [facility] Start: 01-11-2023 Influenza vaccination [facility] Start: 09-07-2022 Adult depression screening assessment DEPRESSION SCREENING [facility] Start: 09-06-2022 [facility] Start: 09-06-2022 [facility] Start: 05-13-2022 DEPRESSION ASSESSMENT DEPRESSION ASS ESSMENT [facility] Start: 01-11-2022 Influenza vaccination [facility] Start: 05-13-2021 DEPRESSION ASSESSMENT DEPRESSION ASS ESSMENT [facility] Start: 05-01-2021 COVID-19 VACCINE (3 - Booster for Moderna series) COVID-19 VACCINE (3 - Booster for Moderna series) [facility] Start: 01-24-2021 COVID-19 VACCINE (3 - Booster for Moderna series) COVID-19 VACCINE (3 - Booster for Moderna series) [facility] Start: 01-24-2021 COVID-19 VACCINE (3 - Moderna series) COVID-19 VACCINE (3 - Moderna series) [facility] Start: 09-01-2019 COLOGUARD (FIT-DNA) COLOGUARD (FIT-D NA) [facility] Start: 09-01-2019 Colonoscopy COLONOSCOPY [facility] Start: 09-01-2019 COLORECTAL CANCER SCREENING COLORECTAL CANCER SCREENING [facility] Start: 09-01-[address] COLONOGRAPHY [facility] Start: 09-01-2019 DIABETES SCREEN DIABETES SCREEN [facility] Start: 09-01-2019 FECAL OCCULT BLOOD FECAL OCCULT BLOO D [facility] Start: 09-01-2019 Lipid 1996 panel - S sophia or Plasma Lipid Screening [facility] Start: 09-01-2019 Lipid panel Lipid Screening [facility] Start: 09-01-2019 LIPID SCREEN LIPID SCREEN [facility] Start: 09-01-2019 Screening for malign ant neoplasm of colon [facility] Start: 09-01-2019 SIGMOIDOSCOPY SIGMOIDOSCOPY [facility] Start: 2014 Mammography [facility] Start: 2009 Diabetes screen Diabetes screen [facility] Start: 2004 HPV TESTING HPV TESTING [facility] Start: 2004 Screening for malign ant neoplasm of cervix [facility] Start: 2004 Zoledronic acid therapy ALPHA- 1 ANTITRYPSIN DEFICIENCY SCREENING [facility] Start: 09-01-1995 PAP TESTING PAP TESTING [facility] Start: 09-01-1995 Screening for malign ant neoplasm of cervix [facility] Start: 1993 DTaP/Tdap/Td vaccine (1 - Tdap) DTaP/Tdap/Td vaccine (1 - Tdap) [facility] Start: 1993 Hepatitis B Vaccine (1 of 3 - 19+ 3-dose series) Hepatitis B Vaccine (1 of 3 - 19+ 3-dose series) [facility] Start: 1993 Urine microalbumin profile [facility] Start: 1993 Urine screening for protein Diabetes: Urine Protein Screening [facility] Start: 1992 ANNUAL PCP TEAM MANAGER PROJECT SILVANO DISEASE VISIT ANNUAL PCP TEAM CHRONIC DISEASE VISIT [facility] Start: 1992 Anxiety Screening Anxiety Screening [facility] Start: 1992 Depression Screening Depression Scre ening [facility] Start: 1992 HEPATITIS C SCREENING HEPATITIS C SC REENING [facility] Start: 1992 Hepatitis C screening [facility] Start: 1992 HIV SCREENING HIV SCREENING [facility] Start: 1992 HIV screening HIV Screening [facility] Start: 1992 SPIROMETRY SPIROMETRY [facility] Start: 1989 HIV screening HIV screen [facility] Start: 1986 [facility] Screen [facility] Start: 1984 Glaucoma screening Diabetes: R etinopathy Screening [facility] Start: 1984 Lipid panel [facility] Start: 1980 PNEUMOCOCCAL (1 - PCV) PNEUMOCOCCAL (1 - PCV) [facility] Start: 1980 Pneumococcal vaccination Pneum ococcal Vaccine (1 - PCV) [facility] Start: 1974 Hemoglobin A1c measurement Diabetes: Hemoglobin A1C [facility] Start: 1974 HEPATITIS B (1 of 3 - 3-dose series) HEPATITIS B (1 of 3 - 3-dose series) [facility] Start: 1974 Hepatitis B Vaccine (1 of 3 - 3-dose series) Hepatitis B Vaccine (1 of 3 - 3-dose series) [facility] Start: 1974 Screening for malign ant neoplasm of lung Lung Cancer Screening Shared Decision Making [facility] End: 10-08-2024 Njx dx/ther agt pvrt facet jt lmbr/sac 1 level INJ DX/THER AGNT PARAVERT FACET JOINT, LUMBAR/SAC, 1ST LEVEL Procedures Routine Lumbosacral spondylosis without myelopathy 1 Occurrences starting 10/08/2024 until 10/08/2024 [facility] [employer] Comment on above: 1 Occurrences starti ng 10/08/2024 until 10/08/2024 Patient Education [facility] Work Phone: Patient referral [facility] Work Phone: End: 09-16-2024 XR Cervical spine 4 or 5 Views [employer] Comment on above: 1 Occurrences starti ng 09/16/2024 until 09/16/2024 End: 09-16-2024 XR Lumbar spine 4 Views [facility] Comment on above: 1 Occurrences starti ng 09/16/2024 until 09/16/2024 End: 09-16-2024 XR Shoulder - left 2 Views [employer] Comment on above: 1 Occurrences starti ng 09/16/2024 until 09/16/2024 [facility] Immunizations Immunization Date Immunization Notes Care Provider Fa [facility] 03-04-2023 Pneumococcal Conjuga te PCV 20 Dc Jackson [facility] Work Phone: [facility] 03-04-2023 SARS-COV-2 (COVID-19 ) vaccine, mRNA, spike protein, LNP, PF, 50 mcg/0.5 mL Dc Jackson [facility] Work Phone: [facility] 03-04-2023 Seasonal, quadrivale nt, recombinant, injectable influenza vaccine, preservative free Dckhalida Jackson [facility] Work Phone: [facility] 03-04-2023 influenza virus vaccine, unspecified formulation Dckhalida Jackson [facility] Work Phone: [facility] 11-29-2020 COVID-19 mRNA-1273 (Willama) MD Josh Ochoa Work Phone: [facility] 11-01-2020 COVID-19 mRNA-1273 (Neal) MD Josh Ochoa Work Phone: [facility] Payers Date Payer Category Payer Self-pay [id number] 2023 Unknown [id number] 2023 Medicaid [id number] 2023 Medicare (Managed Care) AESOTO LUNA [id number] .[id number] 2023 Medicare [id number] 1.2.840.965032.1.13.239.2 .7.9.763078.1018.315 2022 Private Health Insurance 1.2 .840.263266.1.13.693.2 .[id number] 2022 Unknown [id number] 2019 Medicare [id number] 1.13.159.2 .[id number] 2018 Unknown MMO MMO [employer] [id number] 2018-Present [phone] [address] [place] [address] PPO [id number] [id number] .[id number] 2016 Government (not [facility] care or Medicaid) [facility] 1.2.840.449490.1.13.159.2 .[id number] 2016 Unknown 1.2.840.070566. 1.13.159.2 .7.3.936322.315 2016 Unknown [id number] 1974 Unknown [id number] 2.16.840.1.328991.3.579.2 .647 1974 Unknown [id number] 2.16.840.1.273326.3.579.2 .647 1974 Unknown [id number] 2.16.840.1.614549.3.579.2 .647 1974 Unknown [id number] 2.16.840.1.563754.3.579.2 .647 1974 Unknown [id number] 2.16.840.1.635818.3.579.2 .593 1974 Unknown [id number] 2.16.840.1.338140.3.579.2 .593 1974 Unknown [id number] 2.16.840.1.498262.3.579.2 .593 1974 Unknown [id number] 2.16.840.1.205556.3.579.2 .593 1974 Unknown [id number] 2.16.840.1.294233.3.579.2 .593 1974 Unknown [id number] 2.16.840.1.613148.3.579.2 .593 1974 Unknown [id number] 2.16.840.1.821871.3.579.2 .593 1974 Unknown [id number] 2.16.840.1.944085.3.579.2 .593 1974 Unknown [id number] 2.16.840.1.524311.3.579.2 .593 1974 Unknown [id number] 2.16.840.1.024682.3.579.2 .182 1974 Unknown [id number] 2.16.840.1.233165.3.579.2 .182 1974 Unknown [id number] 2.16.840.1.593016.3.579.2 .1974 Unknown [id number] 2.16.840.1.479485.3.579.2 .182 1974 Unknown [id number] 2.16840.1.924575.3.579.2 .1258 1974 Unknown [id number] 2.16.840.1.346270.3.579.2 .1258 1974 Unknown [id number] 2.16840.1.058559.3.579.2 .1258 1974 Unknown [id number] 2.16840.1.432204.3.579.2 .1258 1974 Unknown [id number] 2.840.1.828387.3.579.2 .1258 1974 Unknown [id number] 2.16840.1.764002.3.579.2 .1258 1974 Unknown [id number] 2.16840.1.858568.3.579.2 .1258 1974 Unknown [id number] 2.16840.1.192983.3.579.2 .1258 1974 Unknown [id number] 2.16840.1.155182.3.579.2 .1258 1974 Unknown [id number] 2.16840.1.514975.3.579.2 .1258 1974 Unknown [id number] 2.16840.1.416294.3.579.2 .1258 1974 Unknown [id number] 2.16.840.1.355664.3.579.2 .1258 1974 Unknown [id number] 2.16840.1.251249.3.579.2 .9 1974 Unknown [id number] 2.16.840.1.589971.3.579.2 .9 1974 Unknown [id number] 2.16.840.1.321753.3.579.2 .9 1974 Unknown [id number] 2.16.840.1.744564.3.579.2 .1258 1974 Unknown [id number] 2.16.840.1.212938.3.579.2 .1258 1974 Unknown [id number] 2.16.840.1.284975.3.579.2 .1258 1974 Unknown [id number] 2.16.840.1.010513.3.579.2 .1258 1974 Unknown [id number] 2.16.840.1.005125.3.579.2 .8 1974 Unknown [id number] 2.16.840.1.041214.3.579.2 .718 1959 Medicare [id number] 2.16.840.1.331962.19 1959 Unknown [id number] 1959 Worker's Compensation [id number] Private Health Insurance [employer] [id number] Unknown [facility] [id number] Unknown [id number] 2.16.840.1.029041.3.579.2 .531 Social History Date Type Detail Facility Start: 08-01-2016 End: 04-08-2024 Tobacco smoking status NHIS Smokes tobacco daily [facility] Start: 08-01-2016 End: 08-10-2024 Cigarettes smoked current (pack per day) - Reported 1 [facility] Start: 08-01-2016 End: 04-08-2024 Tobacco use and exposure User of smokeless tobacco [facility] Start: 09-07-2021 End: 12-04-2024 Alcohol intake Current non-drinker of alcohol (finding) [facility] Start: 1975 Sex Assigned At Not on file [facility] Start: 08-28-2021 End: 01-09-2022 Exposure to SARS-CoV-2 (event) Not sure [facility] Start: 01-02-2023 End: 08-10-2024 Sex Assigned At [facility] Start: 07-28-1999 End: 07-27-2022 History of tobacco use Cigarette Smoker [facility] Work Phone: Start: 07-28-1999 End: 07-27-2022 Tobacco smoking status ILIS Smoker (finding) [facility] Start: 1975 Sex Assigned At Female F [facility] Start: 08-27-2022 End: 11-20-2023 Tobacco smoking status ILIS Ex-smoker (finding) [facility] Adult Depression Screening Assessment 4 [facility] Start: 06-17-2023 End: 11-20-2023 Tobacco use and exposure Smokeless tobacco non-user [facility] Start: 06-17-2023 End: 12-23-2024 Alcohol intake Lifetime non-drinker (finding) [facility] Start: 05-14-2023 Alcohol Comment caffeine intak e: maybe 1 coffee or pop cups per day [facility] Start: 09-16-2024 Tobacco smoking stat us [facility] Never smoked tobacco [facility] Start: 06-21-2012 Sex Female (finding) [facility] Medical Equipment Procedure Code Equipment Code Equipment Origin al Text Equipment Identifier Dates [id number], [id number], [id number], [id number] Start: 10-09-2019 End: 06-17-2025 Comment on above: use test strip to te st BLOOD SUGAR FOUR TIMES DAILY use with insulin FOU R TIMES DAILY Goals Date Patient Goal Desired Activity /State Clinical Notes 04-24-2005 to 12-23-2024 Olu Arce MD - 12/23/2024 8:00 AM RT Aliya. R - 12/23/2024 8:00 AM EDTPKinga Meyer APRN.RETAIL FIELD SUPERVISOR - 12/04/2024 8:59 AM EDTPatient InstructionsPatient Instructions Note Date & Type Note Facility 12-23-2024 History of Present illness Narrative Images from the original note were not included. CHIEF COMPLAINT REASON FOR VISIT : Patient is here for brachial and bursa injections. Subjective Jacquelyn Zeng is a 49 y.o. female who presents for neck and back pain History of Present Illness The patient presents for evaluation of lumbar pain. She reports experiencing pain in her lumbar region and has been under the care of Dr. Samano at [facility], who suggested scheduling another set of injections. However, she only experienced 20 minutes of relief from the previous injection. She has not yet tried a spinal cord stimulator. In July 2024, she felt unwell and experienced shortness of breath and confusion when her oxygen saturation dropped to 82 percent. She was taken to the hospital where she received oxygen therapy. A pulmonary embolism was ruled out, but an abnormal EKG led to her wearing a Holter monitor for a month in August 2024. She was diagnosed with atrial fibrillation at the end of November 2024. She also mentions that she had an ablation procedure performed on her occipital nerve, which she describes as a distressing experience. She is currently on Coumadin 10 mg daily. Additionally, she is seeking refills for her medications, including Lyrica 300 mg three times a day, tizanidine, tramadol, and Toradol. MEDICATIONS CURRENT MEDS: Coumadin 10 mg Oral Daily Start Date: 07/2024 Lyrica 300 mg Oral Three times a day Tizanidine Tramadol Toradol Review of Systems Const: Denies appetite change, fever, chills. Allergy: Denies medication reaction. Ocular: Denies visual acuity change. ENT: Denies hearing change. Endoc: Denies weight loss. Resp: Denies dyspnoea, wheezing. Cardiac: Denies angina, palpitations. GI: Denies nausea, vomiting. Haem: Denies bleeding. : Denies incontinence. MSK: Denies arthralgias, joint oedema. Derm: Denies rash, hair loss. Neuro: Denies ataxia, tremor. Also see HPI for elements of ROS documented therein and for details of positive findings, which shall supersede the foregoing. Objective Blood pressure 130/62, height 5' 9 , weight 216 lb. Physical Exam Results Diagnostic Testing - EKG: Abnormal - Holter monitor: 08/2024, A-fib Bursa Injection After explaining the risks, complications, and benefits of the procedure, the patient leaned over the exam table. Allergies were reviewed, the consent was signed. After palpating the bilateral greater trochanter and identifying the most tender area in the bursa, using sterile technique, and surface anesthetic; a 25 gauge 1 1/2 spinal needle was advanced to make contact with the greater trochanter. The needle was then withdrawn about 1 mm. The patient received an injection of 3 cc of Lidocaine 2% and 1 cc Dexamethasone 4mg in a fan-like distribution. The needle was removed. A Band-Aid dressing was applied on the injection site.Ultrasound images were placed in the media folder. The Procedure was done by Dr. Olu Arce. Brachial Plexus injection After explaining the risks, complications, and benefits of the procedure, the patient was seated in the chair. Allergies were reviewed, the consent was signed. The bilateral region posterior to the clavicle is identified and the most tender area is marked for injection then cleaned using sterile technique, and surface anesthetic; a 30 gauge 1/2 spinal needle was advanced and the patient received 1 cc of Lidocaine 2% and 1 cc Dexamethasone 4mg. The needle was removed. The patient tolerated the procedure well and without complications. A Band-Aid dressing was applied on the injection site. Ultrasound images were placed in the media folder. The Procedure was done by Dr. Olu Arce. This note was scribed by Cm Henriquez(Erick) acting under the direction of Olu Arce MD. The content has been reviewed and confirmed for accuracy by Olu Arce MD Assessment & Plan 1. Lumbar pain. She reports persistent lumbar pain with limited relief from previous injections. A note will be sent to Dr. Samano to discuss the possibility of nerve ablation. If the current treatment plan fails, a spinal cord stimulator will be considered as an alternative option. She is currently on Coumadin 10 mg daily for atrial fibrillation, which can lower pulse oximetry readings. Refills for Lyrica 300 mg three times a day, tizanidine, tramadol, and Toradol have been provided. A prior authorization will be processed for Lyrica. This clinical note was created utilizing [employer]ceipts system. All information has been thoroughly reviewed, corrected as necessary, and authenticated by the provider to ensure accuracy and completeness. On occasion, JOEL ambient documentation system erroneously drops words or replaces a spoken word with a similar sounding word. Please notify with any questions or concerns regarding this clinical note. Images from the original note were not included. CHIEF COMPLAINT REASON FOR VISIT : Patient is here for brachial and bursa injections. Subjective Jacquelyn Zeng is a 49 y.o. female who presents for neck and back pain History of Present Illness The patient presents for evaluation of lumbar pain. She reports experiencing pain in her lumbar region and has been under the care of Dr. Samano at [facility], who suggested scheduling another set of injections. However, she only experienced 20 minutes of relief from the previous injection. She has not yet tried a spinal cord stimulator. In July 2024, she felt unwell and experienced shortness of breath and confusion when her oxygen saturation dropped to 82 percent. She was taken to the hospital where she received oxygen therapy. A pulmonary embolism was ruled out, but an abnormal EKG led to her wearing a Holter monitor for a month in August 2024. She was diagnosed with atrial fibrillation at the end of November 2024. She also mentions that she had an ablation procedure performed on her occipital nerve, which she describes as a distressing experience. She is currently on Coumadin 10 mg daily. Additionally, she is seeking refills for her medications, including Lyrica 300 mg three times a day, tizanidine, tramadol, and Toradol. MEDICATIONS CURRENT MEDS: Coumadin 10 mg Oral Daily Start Date: 07/2024 Lyrica 300 mg Oral Three times a day Tizanidine Tramadol Toradol Review of Systems Const: Denies appetite change, fever, chills. Allergy: Denies medication reaction. Ocular: Denies visual acuity change. ENT: Denies hearing change. Endoc: Denies weight loss. Resp: Denies dyspnoea, wheezing. Cardiac: Denies angina, palpitations. GI: Denies nausea, vomiting. Haem: Denies bleeding. : Denies incontinence. MSK: Denies arthralgias, joint oedema. Derm: Denies rash, hair loss. Neuro: Denies ataxia, tremor. Also see HPI for elements of ROS documented therein and for details of positive findings, which shall supersede the foregoing. Objective Blood pressure 130/62, height 5' 9 , weight 216 lb. Physical Exam Results Diagnostic Testing - EKG: Abnormal - Holter monitor: 08/2024, A-fib Bursa Injection After explaining the risks, complications, and benefits of the procedure, the patient leaned over the exam table. Allergies were reviewed, the consent was signed. After palpating the bilateral greater trochanter and identifying the most tender area in the bursa, using sterile technique, and surface anesthetic; a 25 gauge 1 1/2 spinal needle was advanced to make contact with the greater trochanter. The needle was then withdrawn about 1 mm. The patient received an injection of 1cc of Lidocaine 2% and 1 cc Dexamethasone 4mg in a fan-like distribution. The needle was removed. A Band-Aid dressing was applied on the injection site.Ultrasound images were placed in the media folder. The Procedure was done by Dr. Olu Arce. Brachial Plexus injection After explaining the risks, complications, and benefits of the procedure, the patient was seated in the chair. Allergies were reviewed, the consent was signed. The bilateral region posterior to the clavicle is identified and the most tender area is marked for injection then cleaned using sterile technique, and surface anesthetic; a 30 gauge 1/2 spinal needle was advanced and the patient received 1 cc of Lidocaine 2% and 1 cc Dexamethasone 4mg. The needle was removed. The patient tolerated the procedure well and without complications. A Band-Aid dressing was applied on the injection site. Ultrasound images were placed in the media folder. The Procedure was done by Dr. Olu Arce. This note was scribed by Cm Henriquez(Erick) acting under the direction of Olu Arce MD. The content has been reviewed and confirmed for accuracy by Olu Arce MD Assessment & Plan 1. Lumbar pain. She reports persistent lumbar pain with limited relief from previous injections. A note will be sent to Dr. Samano to discuss the possibility of nerve ablation. If the current treatment plan fails, a spinal cord stimulator will be considered as an alternative option. She is currently on Coumadin 10 mg daily for atrial fibrillation, which can lower pulse oximetry readings. Refills for Lyrica 300 mg three times a day, tizanidine, tramadol, and Toradol have been provided. A prior authorization will be processed for Lyrica. This clinical note was created utilizing [employer] documentation system. All information has been thoroughly reviewed, corrected as necessary, and authenticated by the provider to ensure accuracy and completeness. On occasion, [employer] documentation system erroneously drops words or replaces a spoken word with a similar sounding word. Please notify with any questions or concerns regarding this clinical note. documented in this encounter [facility] 12-04-2024 Note Spoke with patient a nd she would prefer to start warfarin instead of paying for Eliquis or Xarelto. Referral faxed to the management clinic here at [facility] per patient request. [facility] 12-04-2024 Instructions 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 APRN.[facility] - 12/04/2024 9:16 AM EDT Images from the original note were not included. [facility] Frequently Asked Questions about Botox Treatment for Chronic Migraine What is Botox and how does it work for chronic migraine? Botox (short for OnabotulinumtoxinA) is a medication that works by blocking pain signals. When injected into muscles, botox travels along the nerves connected to those muscles and towards the brainstem to reduce the release of pain inducing chemicals in the central nervous system. Botox helps block pain signals at the level of the brain. For chronic migraines, Botox is injected into 7 specific muscles in the head and neck using very small needles. By calming overactive nerve activity and blocking pain signals, Botox can help prevent migraines and can significantly lower the number of headaches you might experience. Botox may reduce migraine frequency and severity significantly for 50-70% of chronic migraine patients. Where are the injections? Botox injections, for chronic migraine, involve a series of 31 injections into 7 different muscles using very small needles. These injections occur around the forehead, temples, back of the head, the neck, and shoulder area. What are the possible side-effects? Botox has very minimal side effects: the most common may be pain at the injection sites, mild bruising and a small amount of bleeding at the injection sites, mild headache or neck pain after treatment, You may experience flu-like symptoms after the injections, but this should be transient and will only last a few days. Muscle weakness around the injection site can occur. Temporary drooping eyelids (ptosis) is a rare but possible side-effect Does it hurt? The needles used in the procedure are extremely small and most patients tolerate the procedure with minimal discomfort. Some patients report mild pinching or stinging. How long does the procedure take? Botox is an outpatient procedure: no sedation is given, and you can drive yourself to/from your appointment - you will leave the same day! The duration of the procedure for the injections, once started, is typically 15-20 minutes. How long will it take until the medication takes effect and I feel better? The Botox medication starts to kick into effect after about 1-2 weeks, it is not immediate. The first or second round of Botox injections may not provide much relief, but it is recommended to continue for at least a total of 2-3 rounds of injections, occurring every 12 weeks, to assess the benefit, prior to stopping the injections. After completion of 3 rounds of injections, you should make an appointment with your primary provider to discuss how well Botox works for you, and develop a long-term treatment plan. Insurance also requires this documentation for Botox renewals. Please be sure to keep a headache diary to discuss with your provider How long does the medication last? The effects of Botox for chronic migraines usually last around 10 to 12 weeks. After this time, you may start to notice that your migraines return or become more frequent. Many people get Botox injections every 12 weeks (84 -91 days) to maintain its effectiveness in preventing migraines, based on what insurance allows. What about my other medications? At the start of Botox therapy, you will continue the medication plan as discussed with your provider. Please plan to make a follow-up appointment after the 3rd round of Botox to discuss long-term planning of your preventive medications. Is it approved by insurance? Many insurance companies will cover Botox treatment if a patient meets criteria for chronic migraine headache and has already tried other preventative options. It is important to share all previously tried medications, including durations of trials and why you stopped taking the medication, with your provider, to help with this documentation. Please be aware that an approval or notification that no pre-certification is required is not equivalent to 100% coverage of payment by your insurance. We encourage you to check with your insurance company for specific benefit details before starting Botox to understand your coverage and any kof-ir-[id number] costs. Botox injections are scheduled every 12-13 weeks, per insurance. How long will it take to hear back about insurance approval? Once your provider has referred you for Botox treatment, our team will start the authorization process and contact you within 3-5 business days to schedule a Botox appointment in about 4 weeks while awaiting a decision from insurance. If you haven t heard from a cone picker within 1-2 weeks, please call our office at [phone] (select option 1 for Botox schedulers). Feel free to contact us with any other questions or concerns about Botox: Bushing Press Operator [phone] or [email or web address] Once my appointment is scheduled, how should I prepare? Botox treatments are quick, but you may want to plan for a few quiet hours or even a day or two of rest after the treatment to see how you individually response. Some people feel sore or tired, especially after the first treatments. Stock up on your acute rescue migraine treatments; though it is rare, migraines can flare in the few days immediately after administration of the treatment Please do not apply any makeup prior to your appointment Wear comfortable clothing: Since the injections are given in your head, neck and upper shoulder area, wear something that allows easy access to these areas. If you are also considering or also already undergoing cosmetic Botox (such as for wrinkles), it s important to let your provider know so you can discuss ideal timing of the Botox injections. We encourage you to check with your insurance company for specific benefit details before starting Botox to understand your coverage and any [id number] costs. Do I need a driver supervisor? No; however, if it is the first time you are receiving Botox, it is encouraged to have someone with you for support. What to avoid after the procedure? Lying down: For the first 4 hours after your treatment, we recommend you do not lie down or put pressure on your head, neck, or the areas where you had the Botox injections. This helps prevent the Botox from moving to other areas. Massaging the treated areas: Avoid rubbing or massaging your face, head, neck, or the areas where you had the Botox injections for 24 hours. This helps prevent the Botox from spreading to other areas. Washing the treated areas: Avoid rubbing or applying pressure to your head, neck, face or the areas where you had the Botox injections for 24 hours. This helps prevent the Botox from spreading to other areas. Strenuous exercise: Avoid intense physical activities like running, heavy lifting, or anything that causes you to sweat heavily for at least 24 hours. Hair treatments or dyes: Avoid getting any hair treatments, including coloring or chemical treatments, for 24 hours before or after your Botox injections. The chemicals from these treatments can affect the Botox. When should I call my healthcare provider with concerns after receiving Botox? In general, side-effects are rare. Please call your provider s office if you experience any side-effects that are bothersome to you or persistent: Severe headache that doesn t go away or gets worse. Vision changes: such as blurry vision or difficulty seeing clearly. Drooping eyelid or muscle weakness that doesn t improve or becomes worse. Trouble swallowing or breathing difficulties. Severe pain or swelling at the injection sites that doesn t go away. Signs of an allergic reaction, such as rash, itching, or difficulty breathing Will I need Botox my whole life? Botox for chronic migraines is a long-term treatment, but it is not necessarily something you will need to use for the rest of your life. Many people use Botox treatments for several years to help prevent migraines. Over time, you and your provider may find that the treatment helps so much that you can space out the timing of injections or stop them altogether as your migraine condition calms down. Your provider will regularly check how well the Botox is working for you, and together you can decide how often you need treatments. Can I receive cosmetic Botox while getting Botox for my migraines? Please discuss these details with your primary provider. To prevent the development of antibodies against onabotulinumtoxinA and potential overdose, careful coordination for timing of the procedures close together is necessary, to avoid potential complications and maximize benefit. Can I get Botox while or ? Botox for migraine is not FDA approved for use in and there is limited available data for the analysis of the use of onabotulinum toxin A for the treatment of chronic migraine in . Please discuss the details with your primary provider regarding treatment if you are planning to conceive, currently , or . documented in this encounter [facility] 12-04-2024 Note HNO ID: [id number] Author: KINGA MENDES APRN.CNP Service: ? Author Type: Nurse Practitioner Type: Procedures Filed: 12/04/2024 09:16 Note Text: Headache Center Follow-up Visit Current Preventive: PREEMPT Botox Current Abortive: fioricet, compazine, toradol, DHE Miscellaneous Patient Concerns: She is back on track with botox - only had 4 severe headaches. Still has a daily headaches, but only 4 in the last 12 weeks required treatment. Impression: Intractable chronic migraine without aura and without status migrainosus (primary encounter diagnosis) Chronic daily headache Plan: - Botox today (see procedure note below) Follow-Up Onabotulinum Toxin A (BotoxTM) for Migraine Indication: Chronic Intractable Migraine Treatment #: 10 Referral Expiration: 01/28/2025 Prior to the initiation of the FIRST [...] infection at proposed injection site. HEADACHE SCORES: 06/08/2021 09/07/2021 Headache Questions ER visits since last office visit: 0 0 Hospital stays since last office visit 0 0 Limited ADLs in the last month: 26 14 Days missed from work or school in the last month: 26 Days headache pain free in the last [...] last visit: Very much worse Much improved 06/08/2021 09/07/2021 HIT-6 HIT-6 78 (Severe impact) 65 (Severe impact) 06/08/2021 09/07/2021 MAYNOR - 2/7 SCORES MAYNOR-2 Score 1 3 MAYNOR-7 Score 11 11/07/2016 06/08/2021 09/07/2021 PHQ-9 Score 17 15 17 BP 116/71 Pulse 98 Temp 36.4 ?C (97.5 ?F) (Oral) Resp 21 Patient name: aJcquelyn Zeng : 1975 ALLERGIES Allergen Reactions Desonide Other: See Comments patient unaware but hx of TBI so she may not recall Latex Anaphylaxis, Itching Ciprofloxacin Unknown Codeine Hives Compazine [Prochlor* Intolerance Restless Erythromycin Hives Latex Itching Penicillin V Hives Sulfa (Sulfonamide * Hives UNIVERSAL PROTOCOL / SAFETY CHECKLIST Procedure: Onabotulinum toxin A for migraine Informed Consent Consent Obtained: Written [place] Protocol A moment to CARE was completed SIGN IN Personnel directly involved with the procedure wore the appropriate PPE Special Equipment: N/A Patient/Surrogate Stated/Verified: Patient name, Date of , Relevant allergies and Intended procedure TIME OUT No relevant labs, photos, and/or imaging studies were applicable for review. Consent documented and matches the intended procedure No correct side/site applicable for marking and visibility. Medications required for procedure verified. No fire risk assessment and interventions applicable. No implant(s) inserted. SIGN OUT No specimen collected. Written Consent Obtained: Written LOT #: [id number] Expiration Date: Month: 10 Year: 2026 Injection Sites Left (Units) Left (Sites) Right (Units) Right (Sites) TOTAL (Units) Emergency Medical Service Coordinator 5 1 5 1 10 Procerus Units: [...] effect Other Therapies Chiropractic Physical therapy Analgesic Butalbital/acetaminophen/caffeine (Fioricet) Hydromorphone (Dilaudid) Anti-Anxiety Buspirone (Buspar) Anti-Convulsant Gabapentin (Neurontin) Oxcarb (more content not included)... [facility] 12-04-2024 Procedure note Images from the original note were not included. Headache Center Follow-up Visit Current Preventive: PREEMPT Botox Current Abortive: fioricet, compazine, toradol, DHE Miscellaneous Patient Concerns: She is back on track with botox - only had 4 severe headaches. Still has a daily headaches, but only 4 in the last 12 weeks required treatment. Impression: Intractable chronic migraine without aura and without status migrainosus (primary encounter diagnosis) Chronic daily headache Plan: - Botox today (see procedure note below) Follow-Up Onabotulinum Toxin A (BotoxTM) for Migraine Indication: Chronic Intractable Migraine Treatment #: 10 Referral Expiration: 01/28/2025 Prior to the initiation of the FIRST [...] infection at proposed injection site. HEADACHE SCORES: 06/08/2021 09/07/2021 Headache Questions ER visits since last office visit: 0 0 Hospital stays since last office visit 0 0 Limited ADLs in the last month: 26 14 Days missed from work or school in the last month: 26 Days headache pain free in the last [...] last visit: Very much worse Much improved 06/08/2021 09/07/2021 HIT-6 HIT-6 78 (Severe impact) 65 (Severe impact) 06/08/2021 09/07/2021 MAYNOR - 2/7 SCORES MAYNOR-2 Score 1 3 MAYNOR-7 Score 11 11/07/2016 06/08/2021 09/07/2021 PHQ-9 Score 17 15 17 BP 116/71 Pulse 98 Temp 36.4 C (97.5 F) (Oral) Resp 21 Patient name: Jacquelyn Zeng : 1975 ALLERGIES Allergen Reactions Desonide Other: See Comments patient unaware but hx of TBI so she may not recall Latex Anaphylaxis, Itching Ciprofloxacin Unknown Codeine Hives Compazine [Prochlor* Intolerance Restless Erythromycin Hives Latex Itching Penicillin V Hives Sulfa (Sulfonamide * Hives UNIVERSAL PROTOCOL / SAFETY CHECKLIST Procedure: Onabotulinum toxin A for migraine Informed Consent Consent Obtained: Written [place] Protocol A moment to CARE was completed SIGN IN Personnel directly involved with the procedure wore the appropriate PPE Special Equipment: N/A Patient/Surrogate Stated/Verified: Patient name, Date of , Relevant allergies and Intended procedure TIME OUT No relevant labs, photos, and/or imaging studies were applicable for review. Consent documented and matches the intended procedure No correct side/site applicable for marking and visibility. Medications required for procedure verified. No fire risk assessment and interventions applicable. No implant(s) inserted. SIGN OUT No specimen collected. Written Consent Obtained: Written LOT #: [id number] Expiration Date: Month: 10 Year: 2026 Injection Sites Left (Units) Left (Sites) Right (Units) Right (Sites) TOTAL (Units) Emergency Medical Service Coordinator 5 1 5 1 10 Procerus Units: [...] effect Other Therapies Chiropractic Physical therapy Analgesic Butalbital/acetaminophen/caffeine (Fioricet) Hydromorphone (Dilaudid) Anti-Anxiety Buspirone (Buspar) Anti-Convulsant Gabapentin (Neurontin) Oxcarbazepine (Trileptal) Pregabalin (Lyrica) Topiramate (Topamax, Trokendi XL, Qudexy) Anti-Depressant and Antipsychotic Amitriptyline (Elavil) Citalopram (Celexa) Venlafaxine (Effexor) Anti-Migraine Dihydroergotamine (DHE-45, Migranal) Blood Pressure Lisinopril (Zestril) GEPANTS Atogepant Botulinum Toxin Onabotulinum Toxin A (Botox) Supplements Magnesium Over the Counter Medications Acetaminophen (Tylenol) 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 APRN.RETAIL FIELD SUPERVISOR [facility] 12-04-2024 Procedure note Images from the original note were not included. Headache Center Follow-up Visit Current Preventive: PREEMPT Botox Current Abortive: fioricet, compazine, toradol, DHE Miscellaneous Patient Concerns: She is back on track with botox - only had 4 severe headaches. Still has a daily headaches, but only 4 in the last 12 weeks required treatment. Impression: Intractable chronic migraine without aura and without status migrainosus (primary encounter diagnosis) Chronic daily headache Plan: - Botox today (see procedure note below) Follow-Up Onabotulinum Toxin A (BotoxTM) for Migraine Indication: Chronic Intractable Migraine Treatment #: 10 Referral Expiration: 01/28/2025 Prior to the initiation of the FIRST [...] infection at proposed injection site. HEADACHE SCORES: 06/08/2021 09/07/2021 Headache Questions ER visits since last office visit: 0 0 Hospital stays since last office visit 0 0 Limited ADLs in the last month: 26 14 Days missed from work or school in the last month: 26 Days headache pain free in the last [...] last visit: Very much worse Much improved 06/08/2021 09/07/2021 HIT-6 HIT-6 78 (Severe impact) 65 (Severe impact) 06/08/2021 09/07/2021 MAYNOR - 2/7 SCORES MAYNOR-2 Score 1 3 MAYNOR-7 Score 11 11/07/2016 06/08/2021 09/07/2021 PHQ-9 Score 17 15 17 BP 116/71 Pulse 98 Temp 36.4 C (97.5 F) (Oral) Resp 21 Patient name: Jacquelyn Zeng : 1975 ALLERGIES Allergen Reactions Desonide Other: See Comments patient unaware but hx of TBI so she may not recall Latex Anaphylaxis, Itching Ciprofloxacin Unknown Codeine Hives Compazine [Prochlor* Intolerance Restless Erythromycin Hives Latex Itching Penicillin V Hives Sulfa (Sulfonamide * Hives UNIVERSAL PROTOCOL / SAFETY CHECKLIST Procedure: Onabotulinum toxin A for migraine Informed Consent Consent Obtained: Written [place] Protocol A moment to CARE was completed SIGN IN Personnel directly involved with the procedure wore the appropriate PPE Special Equipment: N/A Patient/Surrogate Stated/Verified: Patient name, Date of , Relevant allergies and Intended procedure TIME OUT No relevant labs, photos, and/or imaging studies were applicable for review. Consent documented and matches the intended procedure No correct side/site applicable for marking and visibility. Medications required for procedure verified. No fire risk assessment and interventions applicable. No implant(s) inserted. SIGN OUT No specimen collected. Written Consent Obtained: Written LOT #: [id number] Expiration Date: Month: 10 Year: 2026 Injection Sites Left (Units) Left (Sites) Right (Units) Right (Sites) TOTAL (Units) Emergency Medical Service Coordinator 5 1 5 1 10 Procerus Units: [...] effect Other Therapies Chiropractic Physical therapy Analgesic Butalbital/acetaminophen/caffeine (Fioricet) Hydromorphone (Dilaudid) Anti-Anxiety Buspirone (Buspar) Anti-Convulsant Gabapentin (Neurontin) Oxcarbazepine (Trileptal) Pregabalin (Lyrica) Topiramate (Topamax, Trokendi XL, Qudexy) Anti-Depressant and Antipsychotic Amitriptyline (Elavil) Citalopram (Celexa) Venlafaxine (Effexor) Anti-Migraine Dihydroergotamine (DHE-45, Migranal) Blood Pressure Lisinopril (Zestril) GEPANTS Atogepant Botulinum Toxin Onabotulinum Toxin A (Botox) Supplements Magnesium Over the Counter Medications Acetaminophen (Tylenol) 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 APRN.RETAIL FIELD SUPERVISOR documented in this encounter [facility] 10-22-2024 History of Present illness Narrative Images from the original note were not included. Subjective Jacquelyn Zeng is a 49 y.o. female who presents for neck and lower back pain History of Present Illness The patient presents today with chronic neck pain and lower back pain, seeking brachial plexus injections as well as bilateral bursa injections. She reports that her pain decreased by more than 50% for up to 4 weeks following her last set of injections. However, the pain has gradually increased to a level of 5 to 6 out of 10 in both her neck and lower back. Approximately 3 weeks ago, she received lumbar facet injections that significantly reduced her pain levels. Currently, she experiences shooting pain radiating down her right leg, a new symptom for her. She was advised that deeper injections are necessary due to extensive degeneration. She has not visited the [facility] recently and does not require any medication refills at this time. She previously underwent nerve ablation in her head, which did not provide relief. She was informed that she has severe arthritis. Her standard walker broke over 6 months ago, and although a new one was requested through worker's compensation, it was denied. She is seeking assistance in obtaining a replacement. MEDICATIONS CURRENT MEDS: Lidocaine Review of Systems Const: Denies appetite change, fever, chills. Allergy: Denies medication reaction. Ocular: Denies visual acuity change. ENT: Denies hearing change. Endoc: Denies weight loss. Resp: Denies dyspnoea, wheezing. Cardiac: Denies angina, palpitations. GI: Denies nausea, vomiting. Haem: Denies bleeding. : Denies incontinence. MSK: Denies arthralgias, joint oedema. Derm: Denies rash, hair loss. Neuro: Denies ataxia, tremor. Also see HPI for elements of ROS documented therein and for details of positive findings, which shall supersede the foregoing. Objective There were no vitals taken for this visit. Physical Exam GENERAL EXAMINATION Appearance: in no acute distress, well developed, well nourished. Head: normocephalic, atraumatic. Eyes: pupils equal, round, reactive to light and accommodation. Ears: normal. Mouth: mucosa moist. Throat: clear. Neck: neck supple, full range of motion, no cervical lymphadenopathy. Skin: no suspicious lesions, warm and dry. Heart: no murmurs, regular rate and rhythm, S1, S2 normal. Lungs: clear to auscultation bilaterally. Abdomen: normal, bowel sounds present, soft, nontender, nondistended. Extremities: no clubbing, cyanosis, or edema. NEUROLOGICAL EXAMINATION Mental Status: The patient is alert and oriented to person, place, and time. Except as noted, thought content, form, and comprehension was normal. Phonation, articulation, resonance, and prosody are normal. Cranial Nerves: Pupils were 4.0 millimeters, equal, round, and reactive to light and accommodation, both directly and consensually. Visual pond were full by confrontation. There was no ptosis; extra-ocular movements were full; and there was no nystagmus. Funduscopic exam is normal. Masseters are of normal strength. Facial movement is normal. Hearing is grossly intact. There is no dysarthria. The gag reflex is equal bilaterally. Sternocleidomastoids and trapezii are of normal strength. The tongue protrudes in the midline. Motor: Muscle testing was performed in all four extremities, including at least ripsaw operator, finger abductors, biceps, triceps, deltoid, toe flexors and extensors, tibialis anterior, triceps surae, quadriceps femoris, biceps femoris, and iliopsoases. Tone is normal. Muscle bulk is normal. Fasciculations are not seen . Pronator drift was not evident. Sensory: Sensation to touch, temperature, and vibration was normal in the arms, legs and face. Romberg is negative. Reflexes: Biceps, triceps, brachioradialis are 2/4 bilaterally. Patellar and Achilles reflexes are 2/4 bilaterally. Plantar responses were flexor bilaterally. Coordination: Dysmetria and dysdiadochokinesia are absent. Tremor is absent; dystonia is absent; chorea is absent. Gait And Station: Station and gait are normal. Apraxia and spasticity are not evident. Arm swing is normal. Toe, heel, and tandem walking are performed without difficulty. Musculoskeletal: Trigger-point tenderness was absent. There is no spasm of the trapezii or paraspinals. Results Assessment & Plan 1. Chronic neck pain: DDD and brachial plexopathies. She reports that her pain has been gradually increasing, reaching a level of 5 to 6 out of 10 in both her neck and lower back. She received injections approximately 3 weeks ago, which have resulted in a significant reduction in her pain levels. However, she now experiences shooting pain radiating down her right leg, a symptom she had not previously encountered. She was informed that she requires deeper injections due to extensive degeneration. She has not visited the [facility] recently and does not require any medication refills at this time. She has previously undergone nerve ablation in her head, which did not provide any relief. She was informed that she has severe arthritis. Her standard walker broke over 6 months ago, and although a new one was requested through worker's compensation, it was denied. She is seeking assistance in obtaining a replacement. A prescription for a stand-up walker will be provided. [place]aria will resubmit the request to worker's compensation. 2. Chronic lower back pain: DDD and SI joint and bursa pain She reports that her pain has been gradually increasing, reaching a level of 5 to 6 out of 10 in both her neck and lower back. She received injections approximately 3 weeks ago, which have resulted in a significant reduction in her pain levels. However, she now experiences shooting pain radiating down her right leg, a symptom she had not previously encountered. She was informed that she requires deeper injections due to extensive degeneration. She has not visited the [facility] recently and does not require any medication refills at this time. She has previously undergone nerve ablation in her head, which did not provide any relief. She was informed that she has severe arthritis. Her standard walker broke over 6 months ago, and although a new one was requested through worker's compensation, it was denied. She is seeking assistance in obtaining a replacement. A prescription for a stand-up walker will be provided. [place]elaria will resubmit the request to worker's compensation. Follow-up The patient will follow up in 8 weeks. PROCEDURE Brachial plexus injections were performed today. Bursa injections bilaterally were performed today. Bursa Injection After explaining the risks, complications, and benefits of the procedure, the patient leaned over the exam table. Allergies were reviewed, the consent was signed. After palpating the bilateralgreater trochanter and identifying the most tender area in the bursa, using sterile technique, and surface anesthetic; a 25 gauge 1 1/2 spinal needle was advanced to make contact with the greater trochanter. The needle was then withdrawn about 1 mm. The patient received an injection of 3cc of Lidocaine 2% and1 cc Dexamethasone 4mg in a fan-like distribution. The needle was removed. A Band-Aid dressing was applied on the injection site.The Procedure was done by Dr. Olu Arce. Brachial Plexus injection After explaining the risks, complications, and benefits of the procedure, the patient was seated in the chair. Allergies were reviewed, the consent was signed. The bilateral region posterior to the clavicle is identified and the most tender area is marked for injection then cleaned using sterile technique, and surface anesthetic; a 30 gauge 1/2 spinal needle was advanced and the patient received 1 cc of lidocaine 2% and 1 cc Dexamethasone 4mg. The needle was removed. The patient tolerated the procedure well and without complications. A Band-Aid dressing was applied on the injection site. This note was scribed by Jerry Henriquez) acting under the direction of Olu Arce MD. The content has been reviewed and confirmed for accuracy by Olu Arce MD This note was scribed by Jerry Henriquez) acting under the direction of Olu Arce MD. The content has been reviewed and confirmed for accuracy by Olu Arce MD This clinical note was created utilizing [employer] documentation system. All information has been thoroughly reviewed, corrected as necessary, and authenticated by the provider to ensure accuracy and completeness. On occasion, [employer] documentation system erroneously drops words or replaces a spoken word with a similar sounding word. Please notify with any questions or concerns regarding this clinical note. documented in this encounter [facility] 10-12-2024 History of Present illness Narrative Associated Problem(s): Type 2 diabetes mellitus with polyneuropathy (CMS/HCC) Pain stable and continue lyrica. Associated Problem(s): Type 2 diabetes mellitus with hyperglycemia, with long-term current use of insulin (CMS/HCC) BS improved and A1C 6.9 few months ago. Stick to ADA diet and limit carbs. Follow with endo. Associated Problem(s): MDD (major depressive disorder), recurrent episode, mild (HCC) (CMS/HCC) Symptoms controlled with medication and continue. Associated Problem(s): Generalized anxiety disorder (CMS/HCC) Symptoms controlled with medication and continue. Use xanax PRN. Associated Problem(s): ADD (attention deficit disorder) without hyperactivity Symptoms controlled with strattera and continue. Images from the original note were not included. Subjective Patient ID: Jacquelyn Zeng is a 49 y.o. female who presents for Follow-up (3m) and Earache (Left ear pain). Follow up DM, HTN, ADD, depression, anxiety, and neuropathy. Following with endo and BS improved. Changed diet and last A1C 6.9. BS 74-141 but average around 110. Tries to eat well and stick to ADA diet. Denies signs of elevated BS such as polyuria, polyphagia or polydipsia. Checking BP PRN and typically controlled. BP normal today. Taking medication daily and tolerating without side effects. ADD controlled with strattera. Able to stay focused and complete tasks. More organized and following directions. Not distracted as easily. Tolerating without side effects. Depression controlled with medication. Not down or sad and feels happier. Interacting well with others and able to get out more. Anxiety stable. Not as stressed out or overwhelmed. Not as nervous or worry as much. Not as butts or irritable. Neuropathy stable. Not having as much pain or burning. Using lyrica and helps. Earache Pertinent negatives include no abdominal pain, coughing, diarrhea or vomiting. Review of Systems HENT: Positive for ear pain. Respiratory: Negative for cough, shortness of breath [...] medication and continue. Benign essential HTN (CMS/HCC) Type 2 diabetes mellitus with polyneuropathy (CMS/HCC) Pain stable and continue lyrica. Type 2 diabetes mellitus with hyperglycemia, with long-term current use of insulin (CMS/HCC) - Primary BS improved and A1C 6.9 few months ago. Stick to ADA diet and limit carbs. Follow with endo. ADD (attention deficit disorder) without hyperactivity Symptoms controlled with strattera and continue. Other Visit Diagnoses Acute non-recurrent pansinusitis Relevant Medications levoFLOXacin (Levaquin) 750 MG tablet documented in this encounter [facility] 09-22-2024 Note REASON FOR VISIT: Jacquelyn Zeng is a 49 y.o. female who is being seen today as follow up for evaluation of her diabetes. HbA1C: July 2022 it was 10.1% -->9.3% 10/05/2022 --> 7.5 % 02/19/23 (scanned in media) --> 9.2% 02/12/24 (poct) --> 6.9% 06/23/2024 (poct) --> 5.6% 09/22/2024 (poct) Current Regimen: - Lantus 25 units BID -Novolog correction scale at meal times (not requiring often) - glipizide 10 mg daily for now - metformin 1 g BID - Farxiga 10 mg daily - used to use omnipod but not interested Tried ozempic and trulicity in past and had diarrhea Compliance: good Today Pt reports doing well. She is continuing low carb diet but has not lost more weight. She's been struggling with back pain and has not been as physically active. She was able to get farxiga with coupon card , she restarted it about 3 months ago. She is tolerating Mounjaro well, no side effects reported. She is not requiring correction bolus very often She is using dexcom G7 with smartphone DIABETES HISTORY: Diabetes Mellitus [Type 2] Onset [...] Diabetes education: [No] Seen by a certified breastfeeding educator (CDE) within 12 months Meal plan: [No] Seen by a polymer engineer within 12 months [ ] Consistent carbohydrate [...] Evaluate for hyperglycemia and hypoglycemia Glucometer: Method: [pt recall] CGM: [DEXCOM G7 Pt spends majority of time in target range; 87% other time mild post prandial hyperglycemia. No hypoglycemia Great control Diabetes-related symptoms and information: [no] Hypoglycemia [no] Increasing urination [no] Increasing drinking/thirst [no] Weight loss [No] Recent changes in vision [No] Chest pain/pressure [no] Nausea [no] Vomiting [] Early satiety [Yes] Feet numbness/pain/tingling [Yes] Patient seeing machine marker/profiling machine setup operator regularly [Yes] Patient seeing dentist regularly [No] Patient seeing pe manager regularly REVIEW OF SYSTEMS Review of Systems Constitutional: Negative for appetite change and unexpected weight change. Eyes: Negative for visual disturbance. Gastrointestinal: Negative for abdominal pain, constipation, diarrhea and nausea. Endocrine: Negative for polydipsia, polyphagia and polyuria. Musculoskeletal: Positive for back pain. Neurological: Negative for numbness. Past Medical History: [...] 53 reports that she quit smoking about 2 years ago. Her smoking use included cigarettes. She started smoking about 28 years ago. She has a 26 pack-year smoking history. She has never been exposed to tobacco smoke. She has never used smokeless tobacco. She reports current alcohol use. She reports current drug use. Frequency: 3.00 times per week. Drug: Marijuana. PHYSICAL EXAM: Vitals: 09/22/24 0917 BP: 112/72 BP Location: Right arm Patient Position: Sitting BP Cuff Size: Large adult Pulse: 90 Weight: 98.4 kg (217 lb) Wt Readings from Last 3 Encounters: 09/22/24 98.4 kg (217 lb) 08/12/24 97.5 kg (215 lb) 06/23/24 101 kg (222 lb) Body mass index is 32.05 kg/m???. General appearance: Obese female in no apparent distress. HEENT: EOMI, Neck: Supple Cardiac: RRR, Respiratory: No respiratory distress currently Extremities: No lower extremity edema. No foot deformities. Skin: No skin lesions. No lipohypertrophy at insulin injection sites. Neuro: A & O x 3. Psych: Mood and affect are appropriate. LABS (more content not included)... [facility] 09-11-2024 Instructions 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 APRN.RETAIL FIELD SUPERVISOR - 09/11/2024 11:44 AM EDT Images from the original note were not included. [facility] Frequently Asked Questions about Botox Treatment for Chronic Migraine What is Botox and how does it work for chronic migraine? Botox (short for OnabotulinumtoxinA) is a medication that works by blocking pain signals. When injected into muscles, botox travels along the nerves connected to those muscles and towards the brainstem to reduce the release of pain inducing chemicals in the central nervous system. Botox helps block pain signals at the level of the brain. For chronic migraines, Botox is injected into 7 specific muscles in the head and neck using very small needles. By calming overactive nerve activity and blocking pain signals, Botox can help prevent migraines and can significantly lower the number of headaches you might experience. Botox may reduce migraine frequency and severity significantly for 50-70% of chronic migraine patients. Where are the injections? Botox injections, for chronic migraine, involve a series of 31 injections into 7 different muscles using very small needles. These injections occur around the forehead, temples, back of the head, the neck, and shoulder area. What are the possible side-effects? Botox has very minimal side effects: the most common may be pain at the injection sites, mild bruising and a small amount of bleeding at the injection sites, mild headache or neck pain after treatment, You may experience flu-like symptoms after the injections, but this should be transient and will only last a few days. Muscle weakness around the injection site can occur. Temporary drooping eyelids (ptosis) is a rare but possible side-effect Does it hurt? The needles used in the procedure are extremely small and most patients tolerate the procedure with minimal discomfort. Some patients report mild pinching or stinging. How long does the procedure take? Botox is an outpatient procedure: no sedation is given, and you can drive yourself to/from your appointment - you will leave the same day! The duration of the procedure for the injections, once started, is typically 15-20 minutes. How long will it take until the medication takes effect and I feel better? The Botox medication starts to kick into effect after about 1-2 weeks, it is not immediate. The first or second round of Botox injections may not provide much relief, but it is recommended to continue for at least a total of 2-3 rounds of injections, occurring every 12 weeks, to assess the benefit, prior to stopping the injections. After completion of 3 rounds of injections, you should make an appointment with your primary provider to discuss how well Botox works for you, and develop a long-term treatment plan. Insurance also requires this documentation for Botox renewals. Please be sure to keep a headache diary to discuss with your provider How long does the medication last? The effects of Botox for chronic migraines usually last around 10 to 12 weeks. After this time, you may start to notice that your migraines return or become more frequent. Many people get Botox injections every 12 weeks (84 -91 days) to maintain its effectiveness in preventing migraines, based on what insurance allows. What about my other medications? At the start of Botox therapy, you will continue the medication plan as discussed with your provider. Please plan to make a follow-up appointment after the 3rd round of Botox to discuss long-term planning of your preventive medications. Is it approved by insurance? Many insurance companies will cover Botox treatment if a patient meets criteria for chronic migraine headache and has already tried other preventative options. It is important to share all previously tried medications, including durations of trials and why you stopped taking the medication, with your provider, to help with this documentation. Please be aware that an approval or notification that no pre-certification is required is not equivalent to 100% coverage of payment by your insurance. We encourage you to check with your insurance company for specific benefit details before starting Botox to understand your coverage and any [id number] costs. Botox injections are scheduled every 12-13 weeks, per insurance. How long will it take to hear back about insurance approval? Once your provider has referred you for Botox treatment, our team will start the authorization process and contact you within 3-5 business days to schedule a Botox appointment in about 4 weeks while awaiting a decision from insurance. If you haven t heard from a cone picker within 1-2 weeks, please call our office at [phone] (select option 1 for Botox schedulers). Feel free to contact us with any other questions or concerns about Botox: Bushing Press Operator [phone] or [email or web address] Once my appointment is scheduled, how should I prepare? Botox treatments are quick, but you may want to plan for a few quiet hours or even a day or two of rest after the treatment to see how you individually response. Some people feel sore or tired, especially after the first treatments. Stock up on your acute rescue migraine treatments; though it is rare, migraines can flare in the few days immediately after administration of the treatment Please do not apply any makeup prior to your appointment Wear comfortable clothing: Since the injections are given in your head, neck and upper shoulder area, wear something that allows easy access to these areas. If you are also considering or also already undergoing cosmetic Botox (such as for wrinkles), it s important to let your provider know so you can discuss ideal timing of the Botox injections. We encourage you to check with your insurance company for specific benefit details before starting Botox to understand your coverage and any cmy-cy-rwgeil costs. Do I need a driver supervisor? No; however, if it is the first time you are receiving Botox, it is encouraged to have someone with you for support. What to avoid after the procedure? Lying down: For the first 4 hours after your treatment, we recommend you do not lie down or put pressure on your head, neck, or the areas where you had the Botox injections. This helps prevent the Botox from moving to other areas. Massaging the treated areas: Avoid rubbing or massaging your face, head, neck, or the areas where you had the Botox injections for 24 hours. This helps prevent the Botox from spreading to other areas. Washing the treated areas: Avoid rubbing or applying pressure to your head, neck, face or the areas where you had the Botox injections for 24 hours. This helps prevent the Botox from spreading to other areas. Strenuous exercise: Avoid intense physical activities like running, heavy lifting, or anything that causes you to sweat heavily for at least 24 hours. Hair treatments or dyes: Avoid getting any hair treatments, including coloring or chemical treatments, for 24 hours before or after your Botox injections. The chemicals from these treatments can affect the Botox. When should I call my healthcare provider with concerns after receiving Botox? In general, side-effects are rare. Please call your provider s office if you experience any side-effects that are bothersome to you or persistent: Severe headache that doesn t go away or gets worse. Vision changes: such as blurry vision or difficulty seeing clearly. Drooping eyelid or muscle weakness that doesn t improve or becomes worse. Trouble swallowing or breathing difficulties. Severe pain or swelling at the injection sites that doesn t go away. Signs of an allergic reaction, such as rash, itching, or difficulty breathing Will I need Botox my whole life? Botox for chronic migraines is a long-term treatment, but it is not necessarily something you will need to use for the rest of your life. Many people use Botox treatments for several years to help prevent migraines. Over time, you and your provider may find that the treatment helps so much that you can space out the timing of injections or stop them altogether as your migraine condition calms down. Your provider will regularly check how well the Botox is working for you, and together you can decide how often you need treatments. Can I receive cosmetic Botox while getting Botox for my migraines? Please discuss these details with your primary provider. To prevent the development of antibodies against onabotulinumtoxinA and potential overdose, careful coordination for timing of the procedures close together is necessary, to avoid potential complications and maximize benefit. Can I get Botox while or ? Botox for migraine is not FDA approved for use in and there is limited available data for the analysis of the use of onabotulinum toxin A for the treatment of chronic migraine in . Please discuss the details with your primary provider regarding treatment if you are planning to conceive, currently , or . documented in this encounter [facility] 09-11-2024 Note HNO ID: [id number] Author: KINGA MENDES APRN.RETAIL FIELD SUPERVISOR Service: ? Author Type: Nurse Practitioner Type: Procedures Filed: 09/11/2024 12:02 Note Text: Headache Center Follow-up Visit Current Preventive: PREEMPT Botox Current Abortive: fioricet, compazine, toradol, DHE Miscellaneous Patient Concerns: She is overdue for Botox relates due to scheduling. Infusions helped significantly when she had these in April. Has occipital injections scheduled at the end of October. Impression: Intractable chronic migraine without aura and without status migrainosus (primary encounter diagnosis) Chronic daily headache Plan: - Botox today (see procedure note below) Follow-Up Onabotulinum Toxin A (BotoxTM) for Migraine Indication: Chronic Intractable Migraine Treatment #: 9 Referral Expiration: 01/28/2025 Prior to the initiation of the FIRST [...] has improved (Y/N): Yes Side effects: none The patient has been assessed for disorders which could contribute to breathing or swallowing difficulty, and there is no contraindication with PREEMPT Botox. There is no documented allergic reaction/hypersensitivity to any botulinum toxin and there is no active infection at proposed injection site. HEADACHE SCORES: 06/08/2021 09/07/2021 Headache Questions ER visits since last office visit: 0 0 Hospital stays since last office visit 0 0 Limited ADLs in the last month: 26 14 Days missed from work or school in the last month: 26 Days headache pain free in the last [...] last visit: Very much worse Much improved 06/08/2021 09/07/2021 HIT-6 HIT-6 78 (Severe impact) 65 (Severe impact) 06/08/2021 09/07/2021 MAYNOR - 2/7 SCORES MAYNOR-2 Score 1 3 MAYNOR-7 Score 11 11/07/2016 06/08/2021 09/07/2021 PHQ-9 Score 17 15 17 There were no vitals taken for this visit. Patient name: Jacquelyn Zeng : 1975 ALLERGIES Allergen Reactions Desonide Other: See Comments patient unaware but hx of TBI so she may not recall Latex Anaphylaxis, Itching Ciprofloxacin Unknown Codeine Hives Compazine [Prochlor* Intolerance Restless Erythromycin Hives Latex Itching Penicillin V Hives Sulfa (Sulfonamide * Hives UNIVERSAL PROTOCOL / SAFETY CHECKLIST Procedure: Onabotulinum toxin A for migraine Informed Consent Consent Obtained: Written [place] Protocol A moment to CARE was completed SIGN IN Personnel directly involved with the procedure wore the appropriate PPE Special Equipment: N/A Patient/Surrogate Stated/Verified: Patient name, Date of , Relevant allergies and Intended procedure TIME OUT No relevant labs, photos, and/or imaging studies were applicable for review. Consent documented and matches the intended procedure No correct side/site applicable for marking and visibility. Medications required for procedure verified. No implant(s) inserted. SIGN OUT No specimen collected. Written Consent Obtained: Written LOT #: [id number] Expiration Date: Month: 4 Year: 2026 Injection Sites Left (Units) Left (Sites) Right (Units) Right (Sites) TOTAL (Units) Emergency Medical Service Coordinator 5 1 5 1 10 Procerus Units: [...] effect Other Therapies Chiropractic Physical therapy Analgesic Butalbital/acetaminophen/caffeine (Fioricet) Hydromorphone (Dilaudid) Anti-Anxiety Buspirone (Buspar) Anti-Convulsant Gabapentin (Neurontin) Oxcarbazepine (Trileptal) Pregabalin (Lyrica) Topiramate (Topamax, Trokendi XL, Qudexy) Anti-D (more content not included)... [facility] 09-11-2024 Procedure note Images from the original note were not included. Headache Center Follow-up Visit Current Preventive: PREEMPT Botox Current Abortive: fioricet, compazine, toradol, DHE Miscellaneous Patient Concerns: She is overdue for Botox relates due to scheduling. Infusions helped significantly when she had these in April. Has occipital injections scheduled at the end of October. Impression: Intractable chronic migraine without aura and without status migrainosus (primary encounter diagnosis) Chronic daily headache Plan: - Botox today (see procedure note below) Follow-Up Onabotulinum Toxin A (BotoxTM) for Migraine Indication: Chronic Intractable Migraine Treatment #: 9 Referral Expiration: 01/28/2025 Prior to the initiation of the FIRST [...] has improved (Y/N): Yes Side effects: none The patient has been assessed for disorders which could contribute to breathing or swallowing difficulty, and there is no contraindication with PREEMPT Botox. There is no documented allergic reaction/hypersensitivity to any botulinum toxin and there is no active infection at proposed injection site. HEADACHE SCORES: 06/08/2021 09/07/2021 Headache Questions ER visits since last office visit: 0 0 Hospital stays since last office visit 0 0 Limited ADLs in the last month: 26 14 Days missed from work or school in the last month: 26 Days headache pain free in the last [...] last visit: Very much worse Much improved 06/08/2021 09/07/2021 HIT-6 HIT-6 78 (Severe impact) 65 (Severe impact) 06/08/2021 09/07/2021 MAYNOR - 2/7 SCORES MAYNOR-2 Score 1 3 MAYNOR-7 Score 11 11/07/2016 06/08/2021 09/07/2021 PHQ-9 Score 17 15 17 There were no vitals taken for this visit. Patient name: Jacquelyn Zeng : 1975 ALLERGIES Allergen Reactions Desonide Other: See Comments patient unaware but hx of TBI so she may not recall Latex Anaphylaxis, Itching Ciprofloxacin Unknown Codeine Hives Compazine [Prochlor* Intolerance Restless Erythromycin Hives Latex Itching Penicillin V Hives Sulfa (Sulfonamide * Hives UNIVERSAL PROTOCOL / SAFETY CHECKLIST Procedure: Onabotulinum toxin A for migraine Informed Consent Consent Obtained: Written [place] Protocol A moment to CARE was completed SIGN IN Personnel directly involved with the procedure wore the appropriate PPE Special Equipment: N/A Patient/Surrogate Stated/Verified: Patient name, Date of , Relevant allergies and Intended procedure TIME OUT No relevant labs, photos, and/or imaging studies were applicable for review. Consent documented and matches the intended procedure No correct side/site applicable for marking and visibility. Medications required for procedure verified. No implant(s) inserted. SIGN OUT No specimen collected. Written Consent Obtained: Written LOT #: [id number] Expiration Date: Month: 4 Year: 2026 Injection Sites Left (Units) Left (Sites) Right (Units) Right (Sites) TOTAL (Units) Emergency Medical Service Coordinator 5 1 5 1 10 Procerus Units: [...] effect Other Therapies Chiropractic Physical therapy Analgesic Butalbital/acetaminophen/caffeine (Fioricet) Hydromorphone (Dilaudid) Anti-Anxiety Buspirone (Buspar) Anti-Convulsant Gabapentin (Neurontin) Oxcarbazepine (Trileptal) Pregabalin (Lyrica) Topiramate (Topamax, Trokendi XL, Qudexy) Anti-Depressant and Antipsychotic Amitriptyline (Elavil) Citalopram (Celexa) Venlafaxine (Effexor) Anti-Migraine Dihydroergotamine (DHE-45, Migranal) Blood Pressure Lisinopril (Zestril) GEPANTS Atogepant Botulinum Toxin Onabotulinum Toxin A (Botox) Supplements Magnesium Over the Counter Medications Acetaminophen (Tylenol) 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 APRN.RETAIL FIELD SUPERVISOR [facility] 09-11-2024 Procedure note Images from the original note were not included. Headache Center Follow-up Visit Current Preventive: PREEMPT Botox Current Abortive: fioricet, compazine, toradol, DHE Miscellaneous Patient Concerns: She is overdue for Botox relates due to scheduling. Infusions helped significantly when she had these in April. Has occipital injections scheduled at the end of October. Impression: Intractable chronic migraine without aura and without status migrainosus (primary encounter diagnosis) Chronic daily headache Plan: - Botox today (see procedure note below) Follow-Up Onabotulinum Toxin A (BotoxTM) for Migraine Indication: Chronic Intractable Migraine Treatment #: 9 Referral Expiration: 01/28/2025 Prior to the initiation of the FIRST [...] has improved (Y/N): Yes Side effects: none The patient has been assessed for disorders which could contribute to breathing or swallowing difficulty, and there is no contraindication with PREEMPT Botox. There is no documented allergic reaction/hypersensitivity to any botulinum toxin and there is no active infection at proposed injection site. HEADACHE SCORES: 06/08/2021 09/07/2021 Headache Questions ER visits since last office visit: 0 0 Hospital stays since last office visit 0 0 Limited ADLs in the last month: 26 14 Days missed from work or school in the last month: 26 Days headache pain free in the last [...] last visit: Very much worse Much improved 06/08/2021 09/07/2021 HIT-6 HIT-6 78 (Severe impact) 65 (Severe impact) 06/08/2021 09/07/2021 MAYNOR - 2/7 SCORES MAYNOR-2 Score 1 3 MAYNOR-7 Score 11 11/07/2016 06/08/2021 09/07/2021 PHQ-9 Score 17 15 17 There were no vitals taken for this visit. Patient name: Jacquelyn Zeng : 1975 ALLERGIES Allergen Reactions Desonide Other: See Comments patient unaware but hx of TBI so she may not recall Latex Anaphylaxis, Itching Ciprofloxacin Unknown Codeine Hives Compazine [Prochlor* Intolerance Restless Erythromycin Hives Latex Itching Penicillin V Hives Sulfa (Sulfonamide * Hives UNIVERSAL PROTOCOL / SAFETY CHECKLIST Procedure: Onabotulinum toxin A for migraine Informed Consent Consent Obtained: Written [place] Protocol A moment to CARE was completed SIGN IN Personnel directly involved with the procedure wore the appropriate PPE Special Equipment: N/A Patient/Surrogate Stated/Verified: Patient name, Date of , Relevant allergies and Intended procedure TIME OUT No relevant labs, photos, and/or imaging studies were applicable for review. Consent documented and matches the intended procedure No correct side/site applicable for marking and visibility. Medications required for procedure verified. No implant(s) inserted. SIGN OUT No specimen collected. Written Consent Obtained: Written LOT #: [id number] Expiration Date: Month: 4 Year: 2026 Injection Sites Left (Units) Left (Sites) Right (Units) Right (Sites) TOTAL (Units) Emergency Medical Service Coordinator 5 1 5 1 10 Procerus Units: [...] effect Other Therapies Chiropractic Physical therapy Analgesic Butalbital/acetaminophen/caffeine (Fioricet) Hydromorphone (Dilaudid) Anti-Anxiety Buspirone (Buspar) Anti-Convulsant Gabapentin (Neurontin) Oxcarbazepine (Trileptal) Pregabalin (Lyrica) Topiramate (Topamax, Trokendi XL, Qudexy) Anti-Depressant and Antipsychotic Amitriptyline (Elavil) Citalopram (Celexa) Venlafaxine (Effexor) Anti-Migraine Dihydroergotamine (DHE-45, Migranal) Blood Pressure Lisinopril (Zestril) GEPANTS Atogepant Botulinum Toxin Onabotulinum Toxin A (Botox) Supplements Magnesium Over the Counter Medications Acetaminophen (Tylenol) 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 APRN.MICHELLE documented in this encounter [facility] 09-10-2024 History of Present illness Narrative Images from the original note were not included. CHIEF COMPLAINT REASON FOR VISIT: Injections. HPI: Jacquelyn Zeng is a 49 y.o. female who presents for Bilateral brachial and bursa injections. States her pain today is around a 7/10. She benefits from the injections and feels better after getting them, just wishes they would last longer. She wants to go back on Qulipta. She has been off of it for a while. She states she needs a PA done for it. Would like to see about getting a deeper injection. The procedure today was performed by Dr. Olu Arce MD. CURRENT MEDICATIONS: ALLERGIES/DISCONTINUE MEDICATIONS Current Outpatient Medications Medication Instructions albuterol HFA 90 mcg/act inhaler 2 puffs, Every 4 hours PRN albuterol 2.5 mg, Every 4 hours PRN Alpha-Lipoic Acid 600 MG capsule 1 capsule, Daily ALPRAZolam (XANAX) 1 mg, Oral, Daily ascorbic acid (VITAMIN C) 1,000 mg, Daily aspirin 81 mg, Once atomoxetine (STRATTERA) 80 mg, Oral, Daily Blood Glucose Monitoring Suppl (Blood Glucose Monitor System) w/Device kit Test four times daily Calcium Carbonate-Vit D-Min (Caltrate 600+D Plus Minerals) 600-800 MG-UNIT chewable tablet Chew. cholecalciferol (Vitamin D-3) 50 MCG (1999) tablet 1 tablet, Daily clopidogrel (Plavix) 75 MG tablet cyclobenzaprine (FLEXERIL) 10 mg, 3 times daily PRN dapagliflozin (FARXIGA) 10 mg, Oral, Daily estradiol (ESTRACE) 0.5 mg, Oral, Daily, Take 1 tablet by mouth for 30 days ezetimibe (ZETIA) 10 mg, Daily RT fenofibrate (TRIGLIDE) 160 mg, Oral, Daily furosemide (LASIX) 40 mg, Daily glipiZIDE (GLUCOTROL) 10 mg, Oral, Daily Glucose Blood (Blood Glucose Test Strips 333) strip 1 each, In Vitro, 4 times daily hydrOXYzine HCl (ATARAX) 50 mg, Oral, Nightly PRN isosorbide mononitrate ER (IMDUR) 30 mg, Daily RT Lancet Devices (Autolet) lancing device Use as instructed Lancets (OneTouch Delica Plus [id number]) misc USE DIRECTED Lantus SoloStar 100 UNIT/ML pen lisinopril-hydroCHLOROthiazide 10-12.5 MG tablet 1 tablet, Daily magnesium oxide (MAG-OX) 400 mg, Nightly meclizine (ANTIVERT) 25 mg, Oral, 4 times daily PRN metFORMIN (GLUCOPHAGE) 1,000 mg, Oral, 2 times daily metoclopramide (REGLAN) 10 mg, Oral, 4 times daily Mounjaro 5 MG/0.5ML solution auto-injector INJECT 5mg SUBCUTANEOUSLY (UNDER THE SKIN) once a week NovoLOG FLEXPEN 100 UNIT/ML pen INJECT 100 UNITS EVERY DAY via insulin pump Nurtec 75 mg, Oral, As needed nystatin (Mycostatin) 541631 UNIT/GM powder APPLY 1 application TO THE AFFECTED AREA(S) THREE TIMES DAILY (EXTERNALLY) pregabalin (LYRICA) 300 mg, Oral, 3 times daily prochlorperazine (COMPAZINE) 10 mg, Oral, Every 6 hours PRN progesterone (PROMETRIUM) 100 mg, Oral, Daily rosuvastatin (CRESTOR) 40 mg, Daily RT tiZANidine (Zanaflex) 4 MG tablet TAKE 2 TABLETS BY MOUTH EVERY 8 HOURS NEEDED FOR MUSCLE SPASMS TRUEplus Insulin Syringe 31G X 5/16 0.5 ML misc USE DIRECTED to refill pump EVERY 3 DAYS venlafaxine XR (Effexor XR) 225 MG 24 hr tablet TAKE 1 TABLET BY MOUTH IN THE MORNING with meals Allergies Allergen Reactions Desonide Unknown Other Reaction(s): hives Other Reaction(s): Dermatitis, GI Disturbance patient unaware but hx of TBI so she may not recall Latex Anaphylaxis and Itching Other Reaction(s): Unknown Wound Dressing Adhesive Unknown Blistering Ciprofloxacin Hives and Unknown Other Reaction(s): Other (See Comments), Unknown Erythromycin Hives and Rash Other Reaction(s): Not available Codeine Unknown Erythromycin Base Other Reaction(s): Unknown Cod Liver Oil Rash Penicillins Rash Other Reaction(s): Unknown Sulfa Antibiotics Hives, Rash and Unknown Zinc Oxide Rash There are no discontinued medications. 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) Cervical spondylosis Chronic constipation Chronic migraine without aura without status migrainosus, not intractable (CMS/HCC) Chronic thoracic spine pain Colloid cyst of third ventricle (CMS/HCC) Depression (CMS/HCC) Diabetes (CMS/HCC) Dyslipidemia (CMS/HCC) MAYNOR (generalized anxiety disorder) (CMS/HCC) Gallbladder disease H/O psychiatric hospitalization Head injury History of medical problems Midline Left Ascending Aortic lesion History of migraine headaches Hypercholesterolemia (CMS/HCC) Hypertension (CMS/HCC) Idiopathic chronic pancreatitis (CMS/HCC) MDD (major depressive disorder), recurrent episode, mild (HCC) (CMS/HCC) Menopausal vasomotor syndrome Mild intermittent asthma without complication (CMS/HCC) Pleuritis Tobacco user Vitamin D deficiency Xerosis cutis Past Surgical History: Procedure Laterality Date CARPAL TUNNEL RELEASE 1999 CHOLECYSTECTOMY 1998 COLECTOMY 1998 CORONARY STENT PLACEMENT Right 2022 DILATION AND CURETTAGE 1998 IR NERVE BLOCK OCCIPITAL CHARGE 2016 Bilateral, greater and lesser MASS EXCISION 09/06/2022 back mass Social History Tobacco Use Smoking status: Former Current packs/day: 0.00 Average packs/day: 1 pack/day for 23.0 years (23.0 ttl pk-yrs) Types: Cigarettes Start date: 07/28/1999 Quit date: 07/27/2022 Years since quittin.1 Smokeless tobacco: Never Vaping Use Vaping status: Never Used Substance Use Topics Alcohol use: Never Comment: caffeine intake: maybe 1 coffee or pop cups per day Drug use: Never Types: Marijuana Comment: medical card Family History Problem Relation Name Age of Onset Diabetes Mother Depression Mother Lung cancer Mother Heart disease Mother Heart disease Father Colon cancer Father Heart attack Father Depression Sister Diabetes Sister Hyperlipidemia Sister PTSD Son Depression Son Anxiety disorder Son Anxiety disorder Son Depression: At risk (08/10/2024) PHQ-2 PHQ-2 Score: 4 REVIEW OF SYMPTOMS: Review of Systems Constitutional: Negative for chills, diaphoresis, fatigue and fever. HENT: Negative for ear pain, tinnitus and trouble swallowing. Eyes: Negative for photophobia and visual disturbance. Respiratory: Negative for cough and shortness of breath. Cardiovascular: Negative for palpitations and leg swelling. Gastrointestinal: Negative for abdominal pain and nausea. Genitourinary: Negative for difficulty urinating and urgency. Musculoskeletal: Positive for arthralgias, back pain and myalgias. Negative for neck pain and neck stiffness. Neurological: Negative for tremors, weakness, light-headedness and numbness. Psychiatric/Behavioral: Negative for agitation, confusion and suicidal ideas. OBJECTIVE: 09/10/2024 8:14 AM 08/10/2024 9:24 AM 07/20/2024 9:12 AM Vitals BMI 31.16 kg/m2 32.19 kg/m2 32.75 kg/m2 BSA (m2) 2.16 m2 2.19 m2 2.22 m2 Systolic 128 112 120 Diastolic 87 52 70 Heart Rate 107 SpO2 91 % Temp 97.1 F Resp 22 Height (in) 5' 9 Weight (lb) 211 218 221.8 Visit Report Report Report EXAM: Neurological Exam Mental Status Awake, alert and oriented to person, place and time. Oriented to person, place and time. Recent and remote memory are intact. Speech is normal. Language is fluent with no aphasia. Attention and concentration are normal. Cranial Nerves CN II: Visual acuity is normal. Visual pond full to confrontation. CN III, IV, : Extraocular movements intact bilaterally. Normal lids and orbits bilaterally. Pupils equal round and reactive to light bilaterally. CN V: Facial sensation is normal. CN VII: Full and symmetric facial movement. CN VIII: Hearing is normal. CN XII: Tongue midline without atrophy or fasciculations. Motor Normal muscle bulk throughout. Normal muscle tone. Right Left Wrist flexion 5 5 Wrist extension 5 5 Right Left Deltoid 5 5 Biceps 5 5 Triceps 5 5 Wrist flexor 5 5 Wrist extensor 5 5 Glutei 5 5 Iliopsoas 5 5 Quadriceps 5 5 Gastrocnemius 5 5 Anterior tibialis 5 5 Posterior tibialis 5 5 Sensory Light touch is normal in upper and lower extremities. Pinprick is normal in upper and lower extremities. Vibration is normal in upper and lower extremities. Reflexes Right Left Brachioradialis 2+ 2+ Biceps 2+ 2+ Patellar 2+ 2+ Achilles 2+ 2+ Right Plantar: downgoing Left Plantar: downgoing Right pathological reflexes: Pia's absent. Ankle clonus absent. Left pathological reflexes: Pia's absent. Ankle clonus absent. Coordination Eshebq-qo-[id number], rapid alternating movements and drhp-af-floc normal bilaterally without dysmetria. Gait Normal casual, toe, heel and tandem gait. Romberg is absent. PROCEDURE: Bursa Injection After explaining the risks, complications, and benefits of the procedure, the patient leaned over the exam table. Allergies were reviewed, the consent was signed. After palpating the bilateralgreater trochanter and identifying the most tender area in the bursa, using sterile technique, and surface anesthetic; a 25 gauge 1 1/2 spinal needle was advanced to make contact with the greater trochanter. The needle was then withdrawn about 1 mm. The patient received an injection of 3 cc of Bupivacaine 0.5% and1 cc Dexamethasone 4mg in a fan-like distribution. The needle was removed. A Band-Aid dressing was applied on the injection site.Ultrasound images were placed in the media folder. Brachial Plexus injection After explaining the risks, complications, and benefits of the procedure, the patient was seated in the chair. Allergies were reviewed, the consent was signed. The bilateral region posterior to the clavicle is identified and the most tender area is marked for injection then cleaned using sterile technique, and surface anesthetic; a 30 gauge 1/2 spinal needle was advanced and the patient received 1 cc of Bupivacaine 0.5% and 1 cc Dexamethasone 4mg. The needle was removed. The patient tolerated the procedure well and without complications. A Band-Aid dressing was applied on the injection site. Ultrasound images were placed in the media folder. The procedure today was performed by Dr. Olu Arce MD. CURRENT MEDICATIONS: ALLERGIES/DISCONTINUE MEDICATIONS Current Outpatient Medications Medication Instructions albuterol HFA 90 mcg/act inhaler 2 puffs, Every 4 hours PRN albuterol 2.5 mg, Every 4 hours PRN Alpha-Lipoic Acid 600 MG capsule 1 capsule, Daily ALPRAZolam (XANAX) 1 mg, Oral, Daily ascorbic acid (VITAMIN C) 1,000 mg, Daily aspirin 81 mg, Once atomoxetine (STRATTERA) 80 mg, Oral, Daily Blood Glucose Monitoring Suppl (Blood Glucose Monitor System) w/Device kit Test four times daily Calcium Carbonate-Vit D-Min (Caltrate 600+D Plus Minerals) 600-800 MG-UNIT chewable tablet Chew. cholecalciferol (Vitamin D-3) 50 MCG (1999 [place]) tablet 1 tablet, Daily clopidogrel (Plavix) 75 MG tablet cyclobenzaprine (FLEXERIL) 10 mg, 3 times daily PRN dapagliflozin (FARXIGA) 10 mg, Oral, Daily estradiol (ESTRACE) 0.5 mg, Oral, Daily, Take 1 tablet by mouth for 30 days ezetimibe (ZETIA) 10 mg, Daily RT fenofibrate (TRIGLIDE) 160 mg, Oral, Daily furosemide (LASIX) 40 mg, Daily glipiZIDE (GLUCOTROL) 10 mg, Oral, Daily Glucose Blood (Blood Glucose Test Strips 333) strip 1 each, In Vitro, 4 times daily hydrOXYzine HCl (ATARAX) 50 mg, Oral, Nightly PRN isosorbide mononitrate ER (IMDUR) 30 mg, Daily RT Lancet Devices (Autolet) lancing device Use as instructed Lancets ([employer] AGuch Delica Plus [id number]) misc USE DIRECTED Lantus SoloStar 100 UNIT/ML pen lisinopril-hydroCHLOROthiazide 10-12.5 MG tablet 1 tablet, Daily magnesium oxide (MAG-OX) 400 mg, Nightly meclizine (ANTIVERT) 25 mg, Oral, 4 times daily PRN metFORMIN (GLUCOPHAGE) 1,000 mg, Oral, 2 times daily metoclopramide (REGLAN) 10 mg, Oral, 4 times daily Mounjaro 5 MG/0.5ML solution auto-injector INJECT 5mg SUBCUTANEOUSLY (UNDER THE SKIN) once a week NovoLOG FLEXPEN 100 UNIT/ML pen INJECT 100 UNITS EVERY DAY via insulin pump Nurtec 75 mg, Oral, As needed nystatin (Mycostatin) 139243 UNIT/GM powder APPLY 1 application TO THE AFFECTED AREA(S) THREE TIMES DAILY (EXTERNALLY) pregabalin (LYRICA) 300 mg, Oral, 3 times daily prochlorperazine (COMPAZINE) 10 mg, Oral, Every 6 hours PRN progesterone (PROMETRIUM) 100 mg, Oral, Daily rosuvastatin (CRESTOR) 40 mg, Daily RT tiZANidine (Zanaflex) 4 MG tablet TAKE 2 TABLETS BY MOUTH EVERY 8 HOURS NEEDED FOR MUSCLE SPASMS TRUEplus Insulin Syringe 31G X 5/16 0.5 ML [facility] [place] USE DIRECTED to refill pump EVERY 3 DAYS venlafaxine XR (Effexor XR) 225 MG 24 hr tablet TAKE 1 TABLET BY MOUTH IN THE MORNING with meals Allergies Allergen Reactions Desonide Unknown Other Reaction(s): hives Other Reaction(s): Dermatitis, GI Disturbance patient unaware but hx of TBI so she may not recall Latex Anaphylaxis and Itching Other Reaction(s): Unknown Wound Dressing Adhesive Unknown Blistering Ciprofloxacin Hives and Unknown Other Reaction(s): Other (See Comments), Unknown Erythromycin Hives and Rash Other Reaction(s): Not available Codeine Unknown Erythromycin Base Other Reaction(s): Unknown Cod Liver Oil Rash Penicillins Rash Other Reaction(s): Unknown Sulfa Antibiotics Hives, Rash and Unknown Zinc Oxide Rash There are no discontinued medications. ASSESSMENT AND PLAN: Diagnoses and all orders for this visit: Trochanteric bursitis of both hips - dexAMETHasone sod phos (Decadron) injection 4 mg - lidocaine (Xylocaine) 2 % injection 40 mg Lumbar spondylosis - Ambulatory referral to Pain Medicine; Future Lumbar radiculopathy - Ambulatory referral to Pain Medicine; Future Nerve root and plexus disorder, unspecified - dexAMETHasone sod phos (Decadron) injection 4 mg - lidocaine (Xylocaine) 2 % injection 40 mg I will start her back on Qulipta 60 mg tablets once daily. Samples provided. Referral placed for Dr. Billy-Pain medicine for spinal stimulator. Patient came to appointment without her walker. States she feels a little better, but does use it on long distances. I will bring her back in 4-6 weeks to see if she has received 50% or greater pain relief and at that time I will repeat the injections if needed. This note was scribed by Cm Henriquez(R) acting under the direction of Olu Arce MD. The content has been reviewed and confirmed for accuracy by Olu Arce MD documented in this encounter [facility] 08-12-2024 Note [facility] Subjective Jacquelyn Zeng is a 48 y.o. year old female patient being seen post ER visit on 07/31/2024 for low 02 along with irregular heart beat, dyspoiesis, SOB and dizziness. Patient states since ER visit she has been feeling ok at times I feel my heart racing. No cardiac complaints at this time. Patient Active Problem List Diagnosis ??? Type 2 diabetes mellitus without complication, without long-term current use of insulin (CMS/HCC) ??? Mixed hyperlipidemia ??? Benign essential HTN ??? Tobacco dependence ??? Mild intermittent asthma without complication ??? Unstable angina (CMS/HCC) ??? HAWTHORNE (dyspnea on exertion) ??? Edema of both lower extremities ??? Cervico-occipital neuralgia ??? Chronic obstructive asthma, unspecified ??? Chronic pain syndrome ??? Complex regional pain syndrome ??? Closed fracture of coronoid process of ulna ??? Degeneration of lumbosacral intervertebral disc ??? Fracture of ulna ??? Medication overuse headache ??? Memory deficit ??? Postconcussion syndrome ??? 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 Migraine ??? Generalized anxiety disorder ??? Panic disorder ??? Severe major depression, single episode, without psychotic features (CMS/HCC) ??? Family history of early CAD ??? Mixed hyperlipidemia due to type 2 diabetes mellitus (CMS/HCC) ??? Coronary artery disease involving teller coronary artery of teller heart without angina pectoris ??? S/P drug eluting coronary stent placement ??? Polycystic ovaries ??? Adhesive capsulitis of left shoulder ??? Anxiety ??? Depression ??? Diabetes mellitus (CMS/HCC) ??? Neuropathic pain ??? Optic nerve disorder ??? Osteoarthritis ??? Vertigo ??? Cervical radiculopathy at C6 ??? Bilateral occipital neuralgia ??? Hypercholesterolemia ??? Brachial plexus neuropathy ??? Chronic migraine without aura, not intractable, without status migrainosus ??? Enthesopathy of hip region ??? Insomnia ??? Lipoma of lower back ??? Lump of skin of back ??? Muscle spasm ??? Myalgia ??? Obesity affecting , antepartum ??? Oth cond assoc w female genital organs and menstrual cycle ??? Pain in joint of left shoulder ??? complicated by tobacco use ??? Trochanteric bursitis of both hips ??? Vaginal dryness ??? ADD (attention deficit disorder) without hyperactivity ??? MDD (major depressive disorder), recurrent episode, mild ??? Dysuria ??? Rectal bleeding ??? Trochanteric bursitis, left hip ??? Trochanteric bursitis, right hip ??? Type 2 diabetes mellitus with polyneuropathy (CMS/HCC) ??? Acute non-recurrent pansinusitis ??? Dyslipidemia ??? Other chronic pancreatitis (CMS/HCC) ??? Abnormal TSH ??? Encounter for long-term (current) use of medications ??? Medicare annual wellness visit, subsequent Family History Problem Relation Name Age of Onset ??? Coronary artery disease Mother ??? Heart attack Mother ??? Cancer Mother ??? Heart attack Father 54 Social History Tobacco Use ??? Smoking status: Former Current packs/day: 0.00 Average packs/day: 1 pack/day for 26.0 years (26.0 ttl pk-yrs) Types: Cigarettes Start date: 07/26/1996 Quit date: 07/26/2022 Years since quittin.0 Passive exposure: Never ??? Smokeless tobacco: Never Substance Use Topics ??? Alcohol use: Yes Comment: yearly ??? Drug use: Yes Frequency: 3.0 times per week Types: Marijuana Comment: Has MM card. MALIKA Zeng is a 48 y.o. female who with history of CAD, hypertension and hyperlipidemia. She was previously evaluated in cardiology clinic because [...] daily to 80 mg daily. She has diabetes. She is also on furosemide 40 mg daily from before for high blood pressure and lower extremity edema. One of her main issues is hyperlipidemia and hypertriglyceridemia in the setting of uncontrolled diabetes. Recently she has been working on diabetes control and her most recent hemoglobin A1c was 7.2%. She has chronic pancreatitis and that limits the use of medications. she is on dual antiplatelet therapy with aspirin and clopidogrel. At visit of 02/07/2024, I changed atorvastatin to rosuvastatin 40 mg daily and add ezetimibe 10 mg daily due to elevated direct LDL levels. Previously Leqvio was not approved by insurance. On 07/31/2024 she was evaluated in the [facility] emergency room because of dizziness and hypoxia and was found to be dehydrated and was treated with IV fluids. She had tachycardia with improved heart rate upon discharge. Today she reports (more content not included)... [facility] 08-10-2024 History of Present illness Narrative Associated Problem(s): Medicare annual wellness visit, subsequent Due for labs. Discussed proper diet and regular aerobic exercise. Need aerobic exercise 5-6 days a week for 30 minutes at a time. Smaller portions and limit total calories. Colonoscopy every 10 years. Tetanus every 10 years. Advised not to smoke. Images from the original note were not included. Subjective Patient ID: Jacquelyn Zeng is a 48 y.o. female who presents for Medicare Annual Wellness Visit Subsequent (wellness). Presents for medicare annual wellness visit. Patient stable today. Weight down 31 pounds in the past year. Remains active and tries to exercise several days a week. Tries to watch diet and eat healthy. Increased fruits and vegetables. Smaller portions and limits snacking. Tries to limit total daily calories. Due for labs. Review of Systems Respiratory: Negative for cough, [...] There is no guarding or rebound. Musculoskeletal: General: No swelling or tenderness. Cervical back: Neck supple. Right lower leg: No edema. Left lower leg: No edema. Skin: Findings: No erythema or rash. Neurological: General: No focal deficit present. Mental Status: She is alert and oriented to person, place, and time. Cranial Nerves: No cranial nerve deficit. Motor: No weakness. Gait: Gait normal. Assessment/Plan Problem List Items Addressed This Visit Benign essential HTN (CMS/HCC) Type 2 diabetes mellitus with hyperglycemia, with long-term current use of insulin (CMS/HCC) Relevant Orders Microalbumin / creatinine, urine ratio Hemoglobin A1c Dyslipidemia ([facility]) Relevant Orders Lipid panel Medicare annual wellness visit, subsequent - Primary Due for labs. Discussed proper diet and regular aerobic exercise. Need aerobic exercise 5-6 days a week for 30 minutes at a time. Smaller portions and limit total calories. Colonoscopy every 10 years. Tetanus every 10 years. Advised not to smoke. Encounter for long-term (current) use of medications Relevant Orders Basic metabolic panel CBC and differential Hepatic function panel Abnormal TSH Relevant Orders TSH T4, free documented in this encounter [facility] 06-29-2024 Telephone encounter Note Botox referral sent to pharmacy Boris CHILDRESS RN RN Clinical [facility] 06-29-2024 Miscellaneous Notes Botox referral sent to pharmacy Boris CHILDRESS RN RN Clinical [facility] documented in this encounter [facility] 06-25-2024 Note Received a message f rom [employer] stating there is an issue with primary insurance that is on file and they have not been able to contact patient. She said Our records indicate that the patient's primary insurance is [employer], which terminated on May 12, 2024. To ensure accurate coordination of benefits, the patient should contact [employer] to inform them of the change. Please contact patient to inform her of this so she can continue receiving her Dexcom G7 supply [facility] 06-23-2024 Note REASON FOR VISIT: Jacquelyn Zeng is a 48 y.o. female who is being seen today as follow up for evaluation of her diabetes. HbA1C: July 2022 it was 10.1% -->9.3% 10/05/2022 --> 7.5 % 02/19/23 (scanned in media) --> 9.2% 02/12/24 (poct) --> 6.9% 06/23/2024 (poct) Current Regimen: -Novolog correction scale at meal times (not requiring often) - glipizide 10 mg daily for now - metformin 1 g BID Previous subcutaneous regimen: -Semglee 30 units BID - Novolog 15-30 units with meals plus medium intensity correction scale or 4-5 units per 15 grams of carbs - used to use omnipod but not interested today Tried ozempic and trulicity in past and had diarrhea Compliance: good Today Pt made significant dietary changes including low carb and smaller portions which resulted in about 20 lb weight loss since March. She was able to decrease insulin requirement significantly- only using correction as needed and sugars remaining well controlled. Pt was not able to get dexcom g7 from [facility] due to insurance coverage. She is tolerating Mounjaro well, interested in increasing. She is trying to adhere to low carb diet DIABETES HISTORY: Diabetes Mellitus [Type 2] Onset [...] Diabetes education: [No] Seen by a certified breastfeeding educator (CDE) within 12 months Meal plan: [No] Seen by a polymer engineer within 12 months [ ] Consistent carbohydrate [...] Evaluate for hyperglycemia and hypoglycemia Glucometer: Method: [pt recall] Pt forgot meter today. Reports BG usually in lower - mid 100s. Not >200. NO recently hypoglycemia events reported. CGM: [DEXCOM G7 (not wearing currently due to insurance not covering) Diabetes-related symptoms and information: [No] Hypoglycemia [no] Increasing urination [no] Increasing drinking/thirst [yes] Weight loss [No] Recent changes in vision [No] Chest pain/pressure [no] Nausea [no] Vomiting [] Early satiety [Yes] Feet numbness/pain/tingling [Yes] Patient seeing machine marker/profiling machine setup operator regularly [Yes] Patient seeing dentist regularly [No] Patient seeing pe manager regularly REVIEW OF SYSTEMS Review of Systems Constitutional: Positive for appetite change. Negative for unexpected weight change. Eyes: Negative for visual disturbance. Gastrointestinal: Negative for abdominal pain, constipation, diarrhea and nausea. Endocrine: Negative for polydipsia, polyphagia and polyuria. Neurological: Negative for numbness. Past Medical History: [...] 53 reports that she quit smoking about 22 months ago. Her smoking use included cigarettes. She started smoking about 27 years ago. She has a 26 pack-year smoking history. She has never been exposed to tobacco smoke. She has never used smokeless tobacco. She reports current alcohol use. She reports current drug use. Frequency: 3.00 times per week. Drug: Marijuana. PHYSICAL EXAM: Vitals: 06/23/24 0929 BP: 124/72 BP Location: Right arm Patient Position: Sitting BP Cuff Size: Large adult Pulse: 97 SpO2: 95% Weight: 101 kg (222 lb) Height: 1.753 m (5' 9 ) Wt Readings from Last 3 Encounters: 06/23/24 101 kg (222 lb) 04/06/24 109 kg (241 lb) 02/12/24 108 kg (237 lb 6.4 oz) Body mass index is 32.78 kg/m???. General appearance: Obese female in no apparent distress. HEENT: EOMI, Neck: Supple Cardiac: RRR, Respiratory: No respiratory distress currently Extre (more content not included)... [facility] 05-11-2024 History of Present illness Narrative Associated Problem(s): Type 2 diabetes mellitus with polyneuropathy (CMS/HCC) Pain stable and continue lyrica. Associated Problem(s): Type 2 diabetes mellitus with hyperglycemia, with long-term current use of insulin (CMS/HCC) BS improved and due for A1C in a few weeks. Stick to ADA diet and limit carbs. Associated Problem(s): Other chronic pancreatitis (CMS/HCC) No symptoms and monitor. Associated Problem(s): Generalized anxiety disorder (CMS/HCC) Symptoms controlled with medication and continue. Use xanax PRN. Associated Problem(s): Benign essential HTN (CMS/HCC) BP controlled and monitor PRN. Associated Problem(s): ADD (attention deficit disorder) without hyperactivity Symptoms controlled with strattera and continue. Associated Problem(s): Acute non-recurrent pansinusitis Take antibiotics for 7 days. Use flonase for inflammation. Use sudafed or other decongestants as needed. Use Robitussin or Robitussin-DM for cough. Can use afrin for congestion but no longer than 3 days. Can use Mucinex to bring up phlegm. Use Motrin or Tylenol as needed for fever, aches, or pains. Increase fluid intake and rest. Should improve over next 5-7 days and if no better or worse call for re-evaluation. Images from the original note were not included. Subjective Patient ID: Jacquelyn Zeng is a 48 y.o. female who presents for Follow-up (3m ), Flank Pain (bilateral), and Sinusitis (Congestion). Follow up DM, HTN, ADD, depression, anxiety, and neuropathy. Following with endo and BS improved. Changed diet and down 12 pounds in past month. BS 74-141 but average around 110. Tries to eat well and stick to ADA diet. Denies signs of elevated BS such as polyuria, polyphagia or polydipsia. Checking BP PRN and typically controlled. BP normal today. Taking medication daily and tolerating without side effects. ADD controlled with strattera. Able to stay focused and complete tasks. More organized and following directions. Not distracted as easily. Tolerating without side effects. Depression controlled with medication. Not down or sad and feels happier. Interacting well with others and able to get out more. Anxiety stable. Not as stressed out or overwhelmed. Not as nervous or worry as much. Not as butts or irritable. Neuropathy stable. Not having as much pain or burning. Using lyrica and helps. C/o cough, congestion, and rhinorrhea x 1 week. Afebrile. Severe fatigue and no energy. Mild cough dry and nonproductive. Denies chest tightness or SOB. RUIZ and sinus pressure in forehead and cheeks along with postnasal drip. Ears plugged and popping. Sore throat and pain to swallow. Mild nausea. Denies recent sick contacts. Using OTC medication and mild relief. No improvement in symptoms since onset. Flank Pain Pertinent negatives include no abdominal pain, chest pain or dysuria. Sinusitis Pertinent negatives include no coughing or shortness of breath. Review of Systems Respiratory: Negative for cough, shortness of breath and wheezing. Cardiovascular: Negative for chest pain and palpitations. Gastrointestinal: Negative for abdominal pain, diarrhea, nausea and vomiting. Genitourinary: Positive for flank pain. Negative for dysuria. Objective Physical Exam Constitutional: [...] depressive disorder), recurrent episode, mild (HCC) (CMS/HCC) Benign essential HTN (CMS/HCC) BP controlled and monitor PRN. Type 2 diabetes mellitus with polyneuropathy (CMS/HCC) Pain stable and continue lyrica. Type 2 diabetes mellitus with hyperglycemia, with long-term current use of insulin (CMS/HCC) - Primary BS improved and due for A1C in a few weeks. Stick to ADA diet and limit carbs. ADD (attention deficit disorder) without hyperactivity Symptoms controlled with strattera and continue. Other chronic pancreatitis (CMS/HCC) No symptoms and monitor. Acute non-recurrent pansinusitis Take antibiotics for 7 days. Use flonase for inflammation. Use sudafed or other decongestants as needed. Use Robitussin or Robitussin-DM for cough. Can use afrin for congestion but no longer than 3 days. Can use Mucinex to bring up phlegm. Use Motrin or Tylenol as needed for fever, aches, or pains. Increase fluid intake and rest. Should improve over next 5-7 days and if no better or worse call for re-evaluation. Relevant Medications levoFLOXacin (Levaquin) 750 MG tablet documented in this encounter [facility] 04-20-2024 Telephone encounter Note I do not see ultram on her med list or on [facility]. She will need an appt to discuss meds. [facility] Work Phone: 04-20-2024 Miscellaneous Notes I do not see ultram on her med list or on [facility]. She will need an appt to discuss meds. documented in this encounter [facility] 04-14-2024 History of Present illness Narrative [facility] Note Subjective: Jacquelyn Zeng is a 48 year old year old female presenting for day 3 of infusions. Response to infusions: Headache improving. and feels she is doing very well with infusions. Did have some restlessness with IV compazine but can tolerate her home PO compazine fine. Current Preventive: PREEMPT Botox, Qulipta 60mg, periactin, lyria, metoprolol, effexor Current Abortive: fioricet, compazine, toradol IM, DHE IM ALLERGIES Allergen Reactions Desonide Other: See Comments patient unaware but hx of TBI so she may not recall Latex Anaphylaxis, Itching Ciprofloxacin Unknown Codeine Hives Compazine [Prochlor* Intolerance Restless Erythromycin Hives Latex Itching Penicillin V Hives Sulfa (Sulfonamide * Hives Current Medications: MOUNJARO 2.5 mg/0.5 mL pen injector^Inject 2.5 mg subcutaneously.^Disp: ^Rfl: prochlorperazine (COMPAZINE) 25 mg suppository^1 Suppository by RECTAL route every 8 hours as needed for nausea/vomiting.^Disp: 20 Suppository^Rfl: 3 Atomoxetine 80 mg capsule^Take 1 capsule by mouth once daily.^Disp: ^Rfl: rosuvastatin (CRESTOR) 40 mg tablet^Take 40 mg by mouth.^Disp: ^Rfl: acetaminophen 300 mg-caffeine 40 mg-butalbital 50 mg (FIORICET) per capsule^Take 1 capsule by mouth every 6 hours as needed.^Disp: ^Rfl: insulin pump cart,auto,BT-cntr crtg^Inject subcutaneously. - [facility]^Disp: ^Rfl: (Patient not taking: Reported on 04/08/2024) aspirin 81 mg chewable tablet^CHEW 1 TABLET EVERY MORNING^Disp: ^Rfl: clopidogrel (PLAVIX) 75 mg tablet^^Disp: ^Rfl: cyclobenzaprine (FLEXERIL) 5 mg tablet^^Disp: ^Rfl: FARXIGA 10 mg tablet^^Disp: ^Rfl: estradiol (ESTRACE) 1 mg tablet^TAKE 1 TABLET BY MOUTH DAILY FOR 14 DAYS then TAKE 1 TABLET BY MOUTH twice a week^Disp: ^Rfl: Fenofibrate (LOFIBRA) 160 mg tablet^^Disp: ^Rfl: glipiZIDE (GLUCOTROL) 10 mg tablet^^Disp: ^Rfl: metoprolol succinate ER (TOPROL XL) 25 mg 24 hr tablet^^Disp: ^Rfl: nystatin (MYCOSTATIN) powder^APPLY 1 application TO THE AFFECTED AREA(S) THREE TIMES DAILY^Disp: ^Rfl: QULIPTA 60 mg tablet^^Disp: ^Rfl: cyproheptadine (PERIACTIN) 4 mg tablet^Take 4 mg by mouth twice daily at 6AM and 9PM.^Disp: ^Rfl: furosemide (LASIX) 40 mg tablet^Take 40 mg by mouth once daily.^Disp: ^Rfl: insulin aspart U-100 (NOVOLOG) 100 unit/mL^Inject subcutaneously.^Disp: ^Rfl: keTORolac (TORADOL) 30 mg/mL (1 mL) soln^INJECT 1mL TWICE DAILY NEEDED^Disp: ^Rfl: Pregabalin (LYRICA) 200 mg capsule^pregabalin 200 mg capsule TAKE 1 CAPSULE BY MOUTH THREE TIMES DAILY^Disp: ^Rfl: tiZANidine (ZANAFLEX) 4 mg tablet^Take 4 mg by mouth every 6 hours as needed.^Disp: ^Rfl: OTC NUTRITIONAL SUPPLEMENT^Patient uses medical marijuana, gummies,powder.^Disp: ^Rfl: Alpha Lipoic Acid 600 mg cap^Take 1 capsule by mouth once daily.^Disp: ^Rfl: ammonium lactate (LAC-HYDRIN) 12 % lotion^ammonium lactate 12 % lotion^Disp: ^Rfl: ONETOUCH ULTRA BLUE TEST STRIP test strip^use test strip to test BLOOD SUGAR FOUR TIMES DAILY^Disp: ^Rfl: calcium carbonate (CALTRATE) 600 mg calcium (1,500 mg) tab^Take 600 mg by mouth.^Disp: ^Rfl: cholecalciferol (VITAMIN D3) 50 mcg (2,000 unit) tablet^Take 1 tablet by mouth once daily.^Disp: ^Rfl: hydrOXYzine HCl (ATARAX) 50 mg tablet^Take 50 mg by mouth four times daily as needed. ^Disp: ^Rfl: magnesium oxide (MAG-OX) 400 mg (241.3 mg magnesium) tablet^Take 1 tablet by mouth once daily.^Disp: ^Rfl: meclizine (ANTIVERT) 25 mg tab^Take 25 mg by mouth four times daily as needed.^Disp: ^Rfl: prochlorperazine (COMPAZINE) 10 mg tablet^Take 10 mg by mouth every 6 hours as needed.^Disp: ^Rfl: venlafaxine ER (EFFEXOR XR) 150 mg 24 hr capsule^Take 225 mg by mouth once daily. ^Disp: ^Rfl: metFORMIN (GLUCOPHAGE) 1,000 mg tablet^Take 1,000 mg by mouth twice daily with meals.^Disp: ^Rfl: ALPRAZolam (XANAX) 0.5 mg tablet^1 mg. ^Disp: ^Rfl: DIHYDROERGOTAMINE 1 MG/ML INJECTION^Inject 1mg SQ every 8 hours as needed for migraine^Disp: 10^Rfl: 6 EXEL SYRINGE 3 ML 25 X 5/8 ^use with DHE^Disp: 10^Rfl: 6 Review of Systems: Review of system: Patient reports no change from the prior visit. Objective: VS: see infusion note for vital signs General: well appearing, in no acute distress, alert Neurological: Pain Behaviors: no pain behaviors observed Mental Status: Alert and oriented to person, place and time. Affect is normal. Speech is spontaneous and fluent without dysarthria. 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 Attention span and concentration are excellent. Cranial Nerves: VII-face is symmetric without evidence of weakness. VIII-hearing intact. Assessment: (G43.901) Status migrainosus (primary encounter diagnosis) Plan: Jacquelyn Zeng is a 48 year old year old female, with a history of chronic migraine, asthma, chronic pancreatitis, colloid cyst of brain, diabetes, gastroparesis, high cholesterol and HTN following up today for day 3 of infusions. Doing very well with infusions. Does not wish to make changes today. Work note given for spouse. Patient verbalized understanding and agreed to treatment plan. Will plan to follow up for next round of botox or sooner if needed. Level of service: Est level 2 (10-19 min). Time spent 10 min on the day of service, which included preparing to see the patient, [id number] patient care, completing clinical documentation, obtaining and/or reviewing separately obtained history, performing a medically appropriate examination, and counseling and educating the patient/family/caregiver. Marilynn Lua PA-C [facility] April 14, 2024 documented in this encounter [facility] 04-14-2024 Note HNO ID: [id number] Author: MARILYNN LUA PA-C Service: ? Author Type: Physician Street Light Servicer Type: Progress Notes Filed: 04/14/2024 10:22 Note Text: [facility] Note Subjective: Jacquelyn Zeng is a 48 year old year old female presenting for day 3 of infusions. Response to infusions: Headache improving. and feels she is doing very well with infusions. Did have some restlessness with IV compazine but can tolerate her home PO compazine fine. Current Preventive: PREEMPT Botox, Qulipta 60mg, periactin, lyria, metoprolol, effexor Current Abortive: fioricet, compazine, toradol IM, DHE IM ALLERGIES Allergen Reactions Desonide Other: See Comments patient unaware but hx of TBI so she may not recall Latex Anaphylaxis, Itching Ciprofloxacin Unknown Codeine Hives Compazine [Prochlor* Intolerance Restless Erythromycin Hives Latex Itching Penicillin V Hives Sulfa (Sulfonamide * Hives Current Medications: MOUNJARO 2.5 mg/0.5 mL pen injectorInject 2.5 mg subcutaneously.Disp: Rfl: prochlorperazine (COMPAZINE) 25 mg suppository1 Suppository by RECTAL route every 8 hours as needed for nausea/vomiting.Disp: 20 SuppositoryRfl: 3 Atomoxetine 80 mg capsuleTake 1 capsule by mouth once daily.Disp: Rfl: rosuvastatin (CRESTOR) 40 mg tabletTake 40 mg by mouth.Disp: Rfl: acetaminophen 300 mg-caffeine 40 mg-butalbital 50 mg (FIORICET) per capsuleTake 1 capsule by mouth every 6 hours as needed.Disp: Rfl: insulin pump cart,auto,BT-cntr crtgInject subcutaneously. [facility]: Rfl: (Patient not taking: Reported on 04/08/2024) aspirin 81 mg chewable tabletCHEW 1 TABLET EVERY MORNINGDisp: Rfl: clopidogrel (PLAVIX) 75 mg tabletDisp: Rfl: cyclobenzaprine (FLEXERIL) 5 mg tabletDisp: Rfl: FARXIGA 10 mg tabletDisp: Rfl: estradiol (ESTRACE) 1 mg tabletTAKE 1 TABLET BY MOUTH DAILY FOR 14 DAYS then TAKE 1 TABLET BY MOUTH twice a weekDisp: Rfl: Fenofibrate (LOFIBRA) 160 mg tabletDisp: Rfl: glipiZIDE (GLUCOTROL) 10 mg tabletDisp: Rfl: metoprolol succinate ER (TOPROL XL) 25 mg 24 hr tabletDisp: Rfl: nystatin (MYCOSTATIN) powderAPPLY 1 application TO THE AFFECTED AREA(S) THREE TIMES DAILYDisp: Rfl: QULIPTA 60 mg tabletDisp: Rfl: cyproheptadine (PERIACTIN) 4 mg tabletTake 4 mg by mouth twice daily at 6AM and 9PM.Disp: Rfl: furosemide (LASIX) 40 mg tabletTake 40 mg by mouth once daily.Disp: Rfl: insulin aspart U-100 (NOVOLOG) 100 unit/mLInject subcutaneously.Disp: Rfl: keTORolac (TORADOL) 30 mg/mL (1 mL) solnINJECT 1mL TWICE DAILY NEEDEDDisp: Rfl: Pregabalin (LYRICA) 200 mg capsulepregabalin 200 mg capsule TAKE 1 CAPSULE BY MOUTH THREE TIMES DAILYDisp: Rfl: tiZANidine (ZANAFLEX) 4 mg tabletTake 4 mg by mouth every 6 hours as needed.Disp: Rfl: OTC NUTRITIONAL SUPPLEMENTPatient uses medical marijuana, gummies,powder.Disp: Rfl: Alpha Lipoic Acid 600 mg capTake 1 capsule by mouth once daily.Disp: Rfl: ammonium lactate (LAC-HYDRIN) 12 % lotionammonium lactate 12 % lotionDisp: Rfl: CloudBiltTOUCH ULTRA BLUE TEST STRIP test stripuse test strip to test BLOOD SUGAR FOUR TIMES DAILYDisp: Rfl: calcium carbonate (CALTRATE) 600 mg calcium (1,500 mg) tabTake 600 mg by mouth.Disp: Rfl: cholecalciferol (VITAMIN D3) 50 mcg (2,000 unit) tabletTake 1 tablet by mouth once daily.Disp: Rfl: hydrOXYzine HCl (ATARAX) 50 mg tabletTake 50 mg by mouth four times daily as needed. Disp: Rfl: magnesium oxide (MAG-OX) 400 mg (241.3 mg magnesium) tabletTake 1 tablet by mouth once daily.Disp: Rfl: meclizine (ANTIVERT) 25 mg tabTake 25 mg by mouth four times daily as needed.Disp: Rfl: prochlorperazine (COMPAZINE) 10 mg tabletTake 10 mg by mouth every 6 hours as needed.Disp: Rfl: venlafaxine ER (EFFEXOR XR) 150 mg 24 hr capsuleTake 225 mg by mouth once daily. Disp: Rfl: metFORMIN (GLUCOPHAGE) 1,000 mg tabletTake 1,000 mg by mouth twice daily with meals.Disp: Rfl: ALPRAZolam (XANAX) 0.5 mg tablet1 mg. Disp: Rfl: DIHYDROERGOTAMINE 1 MG/ML INJECTIONInject 1mg SQ every 8 hours as needed for migraineDisp: 10Rfl: 6 EXEL SYRINGE 3 ML 25 X 5/8 use with DHEDisp: 10Rfl: 6 Review of Systems: Review of system: Patient reports no change from the prior visit. Objective: VS: see infusion note for vital signs General: well appearing, in no acute distress, alert Neurological: Pain Behaviors: no pain behaviors observed Mental Status: Alert and oriented to person, place and time. Affect is normal. Speech is spontaneous and fluent without dysarthria. Short and snf memory, cognition and general fund of knowledge are good. Attention span and concentration are excellent. Cranial Nerves: VII-face is symmetric without evidence of weakness. VIII-hearing intact. Assessment: (G43.901) Status migrainosus (primary encounter diagnosis) Plan: Jacquelyn Zeng is a 48 year old year old female, with a history of chronic migraine, asthma, chronic pancreatitis, colloid cyst of brain, muriel (more content not included)... [facility] 04-14-2024 Note HNO ID: [id number] Author: ALEX LOU RN Service: ? Author Type: Registered Nurse Type: Progress Notes Filed: 04/14/2024 10:58 Note Text: Patient in for day 3 of IV infusions. Patient rated headache 7/10. Patient stated severe nausea and moderate dizziness. Patient educated on medications to be administered and a driver supervisor to transport home was confirmed. Patient verbalized understanding and agreed to proceed with infusions. Pt presented today with N/V. D/t restlessness with compazine yesterday, order for zofran received and given PRN benadryl and pepcid given Pts infusions complete. Pt tolerated infusion well. Pt rated headache 3/10. Pt stated mild nausea and mild dizziness. Pt discharged from treatment room. [facility] 04-14-2024 History of Present illness Narrative Patient in for day 3 of IV infusions. Patient rated headache 7/10. Patient stated severe nausea and moderate dizziness. Patient educated on medications to be administered and a driver supervisor to transport home was confirmed. Patient verbalized understanding and agreed to proceed with infusions. Pt presented today with N/V. D/t restlessness with compazine yesterday, order for zofran received and given PRN benadryl and pepcid given Pts infusions complete. Pt tolerated infusion well. Pt rated headache 3/10. Pt stated mild nausea and mild dizziness. Pt discharged from treatment room. documented in this encounter [facility] 04-13-2024 Note HNO ID: [id number] Author: MEGAN WALL RN Service: ? Author Type: Registered Nurse Type: Progress Notes Filed: 04/13/2024 11:24 Note Text: 0925: Patient in for second day of IV infusions. Patient rated headache 7/10. Patient stated severe nausea and mild dizziness. Patient educated on medications to be administered. Patient verbalized understanding and agreed to proceed with infusions. Pt does have a driver supervisor. She would like PRN benadryl for sedation and PRN compazine for nausea. Liter of fluid ordered but pt has not been vomiting. Spoke with both Priscilla Lea MARKETING TRAFFIC MANAGER; will hold fluid bolus today. Pt in agreement with this plan. 1036: Pt stated that she is feeling restless. Additional dose of PRN benadryl administered for akathisia. Compazine added to allergy/intolerance list. 1116: Pts infusions complete. Pt tolerated infusion well. Pt rated headache 5/10. Pt stated severe nausea and stated mild dizziness. Pt stated she is still feeling slightly restless. Declined wanting anything else to help calm this down. Offered pt RN could message provider for additional anti emetic; but pt declined wanting anything else for nausea. Pt discharged from treatment room. [facility] 04-13-2024 History of Present illness Narrative 0925: Patient in for second day of IV infusions. Patient rated headache 7/10. Patient stated severe nausea and mild dizziness. Patient educated on medications to be administered. Patient verbalized understanding and agreed to proceed with infusions. Pt does have a driver supervisor. She would like PRN benadryl for sedation and PRN compazine for nausea. Liter of fluid ordered but pt has not been vomiting. Spoke with both Priscilla Lea MARKETING TRAFFIC MANAGER; will hold fluid bolus today. Pt in agreement with this plan. 1036: Pt stated that she is feeling restless. Additional dose of PRN benadryl administered for akathisia. Compazine added to allergy/intolerance list. 1116: Pts infusions complete. Pt tolerated infusion well. Pt rated headache 5/10. Pt stated severe nausea and stated mild dizziness. Pt stated she is still feeling slightly restless. Declined wanting anything else to help calm this down. Offered pt RN could message provider for additional anti emetic; but pt declined wanting anything else for nausea. Pt discharged from treatment room. documented in this encounter [facility] 04-08-2024 Note HNO ID: [id number] Author: ALEX LOU RN Service: ? Author Type: Registered Nurse Type: Progress Notes Filed: 04/08/2024 12:07 Note Text: Patient in for day 1 of IV infusions. Patient rated headache 10/10. Patient stated severe nausea and severe dizziness. Patient educated on medications to be administered and a driver supervisor to transport home was confirmed. Patient verbalized understanding and agreed to proceed with infusions. Pt added on for infusions following botox. Pt reported having severe episodes of emesis today and is dehydrated. LAZARA ordered liter of fluids. PRN compazine, Benadryl and pepcid given Emt to call pt to schedule day 2 and 3 next week Pts infusions complete. Pt tolerated infusion well. Pt rated headache 3/10. Pt stated no nausea and mild dizziness. Pt discharged from treatment room. [facility] 04-08-2024 History of Present illness Narrative Patient in for day 1 of IV infusions. Patient rated headache 10/10. Patient stated severe nausea and severe dizziness. Patient educated on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 included. CHIEF COMPLAINT REASON FOR VISIT : neck pain, lumbar back/hip pain HPI: Jacquelyn Zeng is a 48 y.o. female who presents for injections. Pain to day 12/20. Injections reduce pain by 50% for 3 weeks. She has tried years of provider directed treatment. Occipital blocks completed by another provider. CURRENT MEDICATIONS: ALLERGIES/DISCONTINUE MEDICATIONS Current Outpatient Medications Medication Instructions albuterol HFA 90 mcg/act inhaler 2 puffs, Inhalation, Every 4 hours PRN albuterol 2.5 mg, Nebulization, Every 4 hours PRN Alpha-Lipoic Acid 600 MG capsule 1 capsule, Oral, Daily ALPRAZolam (XANAX) 1 mg, Oral, Daily PRN ARIPiprazole (ABILIFY) 15 mg, Oral, Daily ascorbic acid (VITAMIN C) 1,000 mg, Oral, Daily aspirin 81 mg, Oral, Once atomoxetine (STRATTERA) 80 mg, Oral, Daily, Swallow capsule whole; do not open. If opened accidentally, do not touch eyes; wash hands immediately (product is an eye irritant). Calcium Carbonate-Vit D-Min (Caltrate 600+D Plus Minerals) 600-800 MG-UNIT chewable tablet Oral cholecalciferol (Vitamin D-3) 50 MCG (2000 UT) tablet 1 tablet, Oral, Daily cyclobenzaprine (FLEXERIL) 10 mg, Oral, 3 times daily PRN dapagliflozin (FARXIGA) 10 mg, Oral, Daily estradiol (Estrace) 1 MG tablet TAKE 2 TABLETS BY MOUTH ONCE A WEEK ezetimibe (ZETIA) 10 mg, Oral, Daily RT fenofibrate (TRIGLIDE) 160 mg, Oral, Daily furosemide (LASIX) 40 mg, Oral, Daily glipiZIDE (GLUCOTROL) 10 mg, Oral, Daily Glucose Blood (Blood Glucose Test Strips 333) strip 1 each, In Vitro, 4 times daily hydrOXYzine HCl (ATARAX) 50 mg, Oral, Daily PRN Inclisiran Sodium 284 mg, Subcutaneous Insulin Disposable Pump (Omnipod 5 G6 Pod, Gen 5,) misc isosorbide mononitrate ER (IMDUR) 30 mg, Oral, Daily RT lisinopril-hydroCHLOROthiazide 10-12.5 MG tablet 1 tablet, Oral, Daily magnesium oxide (MAG-OX) 400 mg, Oral, Nightly meclizine (ANTIVERT) 25 mg, Oral, 4 times daily PRN metFORMIN (GLUCOPHAGE) 1,000 mg, Oral, 2 times daily metoclopramide (REGLAN) 10 mg, Oral, 4 times daily metoprolol succinate XL (TOPROL-XL) 25 mg, Oral, Daily RT Nirmatrelvir&Ritonavir 300/100 (Paxlovid, 300/100,) 20 x 150 MG & 10 x 100MG tablet therapy pack 1 Dose, Oral, See admin instructions NovoLOG 100 UNIT/ML solution INJECT a max DAILY dose OF 80 UNITS in insulin pump NovoLOG FLEXPEN 100 UNIT/ML pen INJECT 100 UNITS EVERY DAY via insulin pump Nurtec 75 mg, Oral, As needed nystatin (Mycostatin) 961061 UNIT/GM powder APPLY 1 application TO THE AFFECTED AREA(S) THREE TIMES DAILY (EXTERNALLY) pancrelipase, Epv-Exoh-Dxzj, (Zenpep) [id number] units capsule delayed-release particles capsule 1 capsule, Oral, 3 times daily pregabalin (LYRICA) 200 mg, Oral, 3 times daily prochlorperazine (Compazine) 10 MG tablet 1 tablet, Oral, Every 6 hours PRN Qulipta 60 mg, Oral, Daily rosuvastatin (CRESTOR) 40 mg, Oral, Daily RT tiZANidine (ZANAFLEX) 8 mg, Oral, Every 8 hours PRN TRUEplus Insulin Syringe 31G X 5/16 0.5 ML misc USE DIRECTED to refill pump EVERY 3 DAYS valACYclovir (Valtrex) 1 g tablet venlafaxine XR (EFFEXOR XR) 225 mg, Oral, Daily with breakfast Allergies Allergen Reactions Desonide Unknown Other Reaction(s): hives Other Reaction(s): Dermatitis, GI Disturbance patient unaware but hx of TBI so she may not recall Latex Anaphylaxis and Itching Other Reaction(s): Unknown Wound Dressing Adhesive Unknown Blistering Ciprofloxacin Hives and Unknown Other Reaction(s): Other (See Comments), Unknown Erythromycin Hives and Rash Other Reaction(s): Not available Codeine Unknown Erythromycin Base Other Reaction(s): Unknown Cod Liver Oil Rash Penicillins Rash Other Reaction(s): Unknown Sulfa Antibiotics Hives, Rash and Unknown Zinc Oxide Rash There are no discontinued medications. 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) Cervical spondylosis Chronic constipation Chronic migraine without aura without status migrainosus, not intractable (CMS/HCC) Chronic thoracic spine pain Colloid cyst of third ventricle (CMS/HCC) Depression (CMS/HCC) Diabetes (CMS/HCC) Dyslipidemia (CMS/HCC) MAYNOR (generalized anxiety disorder) (CMS/HCC) Gallbladder disease H/O psychiatric hospitalization Head injury History of medical problems Midline Left Ascending Aortic lesion History of migraine headaches Hypercholesterolemia (CMS/HCC) Hypertension (CMS/HCC) Idiopathic chronic pancreatitis (CMS/HCC) MDD (major depressive disorder), recurrent episode, mild (HCC) (CMS/HCC) Menopausal vasomotor syndrome Mild intermittent asthma without complication (CMS/HCC) Pleuritis Tobacco user Vitamin D deficiency Xerosis cutis Past Surgical History: Procedure Laterality Date CARPAL TUNNEL RELEASE 1999 CHOLECYSTECTOMY 1998 COLECTOMY 1998 CORONARY STENT PLACEMENT Right 2022 DILATION AND CURETTAGE 1998 IR NERVE BLOCK OCCIPITAL CHARGE 2016 Bilateral, greater and lesser MASS EXCISION 09/06/2022 back mass Social History Tobacco Use Smoking status: Former Current packs/day: 0.00 Average packs/day: 1 pack/day for 23.0 years (23.0 ttl pk-yrs) Types: Cigarettes Start date: 07/28/1999 Quit date: 07/27/2022 Years since quittin.5 Smokeless tobacco: Never Vaping Use Vaping status: Never Used Substance Use Topics Alcohol use: Never Comment: caffeine intake: maybe 1 coffee or pop cups per day Drug use: Never Types: Marijuana Comment: medical card Family History Problem Relation Name Age of Onset Diabetes Mother Depression Mother Lung cancer Mother Heart disease Mother Heart disease Father Colon cancer Father Heart attack Father Depression Sister Diabetes Sister Hyperlipidemia Sister PTSD Son Depression Son Anxiety disorder Son Anxiety disorder Son Depression: Not at risk (06/20/2023) PHQ-2 PHQ-2 Score: 2 REVIEW OF SYMPTOMS: Review of Systems Constitutional: Negative for chills, fatigue and fever. HENT: Negative for tinnitus. Eyes: Negative for photophobia. Respiratory: Negative for shortness of breath. Cardiovascular: Negative for chest pain. Gastrointestinal: Negative for nausea and vomiting. Genitourinary: Negative for frequency. Musculoskeletal: Positive for arthralgias, back pain, neck pain and neck stiffness. Negative for gait problem. Neurological: Positive for headaches. Negative for dizziness, tremors, weakness, light-headedness and numbness. Psychiatric/Behavioral: Negative. OBJECTIVE: 02/26/2024 9:06 AM 12/13/2023 10:30 AM 08/01/2023 2:02 PM Vitals BMI 34.7 kg/m2 35.88 kg/m2 36.77 kg/m2 BSA (m2) 2.28 m2 2.31 m2 2.35 m2 Systolic 110 134 124 Diastolic 72 62 82 Heart Rate 83 SpO2 97 % Temp 97.3 F Resp 20 Height (in) 5' 9 5' 9 Weight (lb) 235 243 249 Visit Report Report EXAM: Neurological Exam Mental Status Awake, alert and oriented to person, place and time. Oriented to person, place and time. Speech is normal. Language is fluent with no aphasia. Motor Increased muscle tone. Increased cervical and lumbar paraspinal muscles. Gait Casual gait: Wide stance. PROCEDURE: Brachial Plexus injection After explaining the risks, complications, and benefits of the procedure, the patient was seated in the chair. Allergies were reviewed, the consent was signed. The bilateral region posterior to the clavicle is identified and the most tender area is marked for injection then cleaned using sterile technique, and surface anesthetic; a 25 gauge 1 1/2 spinal needle was advanced and the patient received 2 cc of Bupivacaine 0.5% and 0.5 cc Dexamethasone 4mg. The needle was removed. The patient tolerated the procedure well and without complications. A Band-Aid dressing was applied on the injection site. Bursa Injection After explaining the risks, complications, and benefits of the procedure, the patient leaned over the exam table. Allergies were reviewed, the consent was signed. After palpating the bilateralgreater trochanter and identifying the most tender area in the bursa, using sterile technique, and surface anesthetic; a 25 gauge 1 1/2 spinal needle was advanced to make contact with the greater trochanter. The needle was then withdrawn about 1 mm. The patient received an injection of 2 cc of Bupivacaine 0.5% and0.5 cc Dexamethasone 4mg in a fan-like distribution. The needle was removed. A Band-Aid dressing was applied on the injection site. ASSESSMENT AND PLAN: Diagnoses and all orders for this visit: Cervical paraspinal muscle spasm Complex regional pain syndrome type 1, affecting unspecified site Migraine without aura and without status migrainosus, not intractable (CMS/HCC) 48 year old female with long standing history of chronic pain. History of RSD. She has underlying spine disease causes radiculopathy to BUE and BLE. She has completed years of provider directed treatment with PT, seizure medications, antidepressants and muscle relaxers. Steroid injections reduce her pain by 50% for 3 weeks which provides her some quality of life. I will repeat neck injections and lumbar back/hip injections today. Neck pain cause her migraines. I gave her sample box of [employer] as insurance will not approve. This was discussed with patient all questions answered. documented in this encounter [facility] 02-12-2024 Note REASON FOR VISIT: Jacquelyn Zeng is a 48 y.o. female who is being seen today as follow up for evaluation of her diabetes. HbA1C: July 2022 it was 10.1% -->9.3% 10/05/2022 --> 7.5 % 02/19/23 (scanned in media) --> 9.2% 02/12/24 (poct) Current Regimen: Novolog 15 units with meals plus correction scale Last visit she was on Omnipod 5 with Dexcom G6 (she wants to resume this once insurance changes) Previous subcutaneous regimen: Lantus 20 units BID Novolog 3:15+ MCS Metformin 1000 mg BID Tried ozempic and trulciity in past and had diarrhea Compliance: good Today Pt says soon after last visit in May 2023 she switched to subcutaneous injections due to change in insurance and high out of pocket cost. She's only been on novolog for past ~8 months and poorly controlled. She hasn't been using CGM ; checking manually a couple times daily. Reports its usually in 200s fasting and post prandial. She reports triglycerides were high from recent lab draw- currently taking vascepa 2g BID and fenofibrate and rosuvastatin. She is trying to adhere to low carb diet DIABETES HISTORY: Diabetes Mellitus [Type 2] Onset [...] Diabetes education: [No] Seen by a certified breastfeeding educator (CDE) within 12 months Meal plan: [No] Seen by a polymer engineer within 12 months [ ] Consistent carbohydrate [...] for hyperglycemia and hypoglycemia Glucometer: Method: [] Pt forgot meter today. Reports BG usually high >200 fasting and post prandial. No reported hypoglycemia, she says lowest was 160 CGM: [DEXCOM G6 Diabetes-related symptoms and information: [No] Hypoglycemia [no] Increasing urination [no] Increasing drinking/thirst [No] Weight loss [No] Recent changes in vision [No] Chest pain/pressure [no] Nausea [no] Vomiting [Yes] Early satiety [Yes] Feet numbness/pain/tingling [Yes] Patient seeing machine marker/profiling machine setup operator regularly [Yes] Patient seeing dentist regularly [No] Patient seeing pe manager regularly REVIEW OF SYSTEMS Review of Systems [...] 53 reports that she quit smoking about 18 months ago. Her smoking use included cigarettes. She has a 26.00 pack-year smoking history. She has never been exposed to tobacco smoke. She has never used smokeless tobacco. She reports current alcohol use. She reports current drug use. Frequency: 3.00 times per week. Drug: Marijuana. PHYSICAL EXAM: Vitals: 02/12/24 0929 BP: 124/70 BP Location: Right arm Patient Position: Sitting BP Cuff Size: Adult Pulse: 99 SpO2: 96% Weight: 108 kg (237 lb 6.4 oz) Height: 1.753 m (5' 9 ) Wt Readings from Last 3 Encounters: 02/12/24 108 kg (237 lb 6.4 oz) 02/07/24 106 kg (234 lb) 07/29/23 113 kg (250 lb) Body mass index is 35.06 kg/m???. General appearance: Obese female in no apparent distress. HEENT: EOMI, oropharynx clear, mucous membranes moist. Neck: Supple Cardiac: RRR, no murmurs, r (more content not included)... [facility] 02-07-2024 [facility] Subjective Jacquelyn Zeng is a 48 y.o. year old female patient being seen for 6 mo follow up CAD and hyperlipidemia. Had lipid panel in November 2023, and was started on Vascepa. She's lost 16# since last visit in July 2023. Denies chest pain, SOB, and LE edema. Patient Active Problem List Diagnosis Type 2 [...] diabetes mellitus (CMS/HCC) Coronary artery disease involving teller coronary artery of teller heart without angina pectoris S/P drug eluting [...] (major depressive disorder), recurrent episode, mild (CMS/HCC) Dysuria Rectal bleeding Trochanteric bursitis, left hip Trochanteric bursitis, right hip Family History Problem Relation Name Age of Onset Coronary artery disease Mother Heart attack Mother Cancer Mother Heart attack Father 54 Social History Tobacco Use Smoking status: Former Packs/day: 1.00 Years: 26.00 Additional pack years: 0.00 Total pack years: 26.00 Types: Cigarettes Quit date: 07/26/2022 Years since quittin.5 Passive exposure: Never Smokeless tobacco: Never Substance Use Topics Alcohol use: Yes Comment: rarely Drug use: Yes Frequency: 3.0 times per week Types: Marijuana Comment: Has MM card. HPI Jacquelyn Zeng is a 48 y.o. female who was previously evaluated in [...] hypertriglyceridemia in the setting of uncontrolled diabetes. She has been working on diabetes control and her hemoglobin A1c was improved to 7.2%. She has chronic pancreatitis and that limits the use of medications. After last visit of 07/29/2023 I changed atorvastatin to rosuvastatin 40 mg daily and added ezetimibe 10 mg daily. A follow-up lipid panel in November 2023 showed direct LDL to be 73. Her triglycerides were close to 1000. I started her on Vascepa and recommended control of diabetes per PCP. Today she reports that she has been doing well. She has no chest pain. No shortness of breath. She has occasional palpitations. No leg edema. She has lost weight and she is working with exercise and diet. She feels good. Today's lipid panel shows LDL to be in good range however her triglycerides are still elevated at around 1000. Review of Systems Constitutional: Positive for weight loss (16# since July 2023). Cardiovascular: Positive for palpitations ( not bad ). Musculoskeletal: Positive for arthritis, back pain, joint pain and myalgias. Neurological: Positive for light-headedness. All other systems reviewed and are negative. Objective Visit Vitals BP 122/80 (BP Location: Left arm, Patient Position: Sitting) Pulse (!) 114 Ht 1.753 m (5' 9 ) Wt 106 kg (234 lb) SpO2 92% BMI 34.56 kg/m??? OB Status Having periods S (more content not included)... [facility] 01-15-2024 Note Patient Education Ma terials Follows: [facility] [place] 10-28-2023 Telephone encounter Note Forms signed - Faxed to ATTN: [facility] [phone] This is per the cover sheet request Scanned document to chart via onbase [facility] 10-28-2023 Miscellaneous Notes Forms signed - Faxed to ATTN: [facility] [phone] This is per the cover sheet request Scanned document to chart via onbase Rec'd [facility] C9 via fax Gave to on site admin to ask provider to sign Provider was not physically in office, Please in their office to sign when she is on campus next documented in this encounter [facility] 10-24-2023 Telephone encounter Note Rec'd [facility] C9 via fax Gave to on site admin to ask provider to sign Provider was not physically in office, Please in their office to sign when she is on campus next [facility] 10-09-2023 Telephone encounter Note Sent message to [facility] team to follow up on status and to see if we can schedule. [facility] 10-09-2023 Miscellaneous Notes Sent message to [facility] team to follow up on status and to see if we can schedule. Call received for 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 APRN.RETAIL FIELD SUPERVISOR regarding Jacquelyn Zeng 1975. Caller: Self Patient Identified by Name and : Yes Was permission obtained from patient ? Yes Reason for Call: Botox Referral New Referral Needed ? Yes Have you contacted our registration department with you most recent insurance information ? Yes- Are you ordering through a specialty pharmacy -No Botox is through [facility] and her appointment had to be rescheduled in August. Last Office Visit: 05/17/23 with Fred Next scheduled appointment: Not scheduled. Best number to reach caller: [phone] Best time to reach caller: between 11-2:30 pm Is it OK to leave a detailed voice message? Yes Tiffany Boyer documented in this encounter [facility] 10-08-2023 Telephone encounter Note Call received [...] a specialty pharmacy -No Botox is through [facility] and her appointment had to be rescheduled in August. Last Office Visit: 05/17/23 with Fred Next scheduled appointment: Not scheduled. Best number to reach caller: [phone] Best time to reach caller: between 11-2:30 pm Is it OK to leave a detailed voice message? Yes Tiffany Boyer [facility] 06-20-2023 History of Present illness Narrative [...] hyperglycemia, with long-term current use of insulin ([facility]) Reports BS controlled and due for A1C. Stick to ADA diet and limit carbs. Subjective Patient ID: Jacquelyn Zeng is a 47 y.o. female who presents for Follow-up ([facility] F/u DM, HTN, asthma, depression, anxiety, and [...] 40 MG capsule documented in this encounter [facility] 06-17-2023 Telephone encounter Note Rec'd [facility] C9 via fax Gave to provider Provider signed Added to chart and faxed to number on form [facility] 06-17-2023 Miscellaneous Notes Rec'd [facility] C9 via fax Gave to provider Provider signed Added to chart and faxed to number on form documented in this encounter [facility] 03-25-2023 Miscellaneous Notes Summary: 04/09 reschedule [...] Thank you, Raquel documented in this encounter [facility] 01-02-2023 Instructions 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 APRN.MICHELLE - 01/02/2023 9:10 AM EDT Instruction after [...] it does not, call our office at [phone] for further instructions. documented in this encounter [facility] 01-02-2023 Procedure note [facility] Follow-up [...] for migraine Informed Consent Consent Obtained: Written [place] Protocol A moment to CARE was completed [...] applicable Written Consent Obtained: Written LOT #: [id number] Expiration Date: Month: 2 Year: 2025 Injection Sites Left (Units) Left (Sites) Right (Units) Right (Sites) TOTAL (Units) Emergency Medical Service Coordinator 5 1 5 1 10 Procerus Units: [...] 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 APRN.MICHELLE documented in this encounter [facility] 10-10-2022 Instructions 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 APRN.CNP - 10/10/2022 [...] it does not, call our office at [phone] for further instructions. documented in this encounter [facility] 10-10-2022 Procedure note [facility] Follow-up [...] for migraine Informed Consent Consent Obtained: Written [place] Protocol A moment to CARE was completed [...] applicable Written Consent Obtained: Written LOT #: [id number] Expiration Date: Month: 12 Year: 2024 Injection Sites Left (Units) Left (Sites) Right (Units) Right (Sites) TOTAL (Units) Emergency Medical Service Coordinator 5 1 5 1 10 Procerus Units: [...] 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 APRN.CNP documented in this encounter [facility] 07-17-2022 Instructions 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 APRN.CNP - 07/17/2022 [...] it does not, call our office at [phone] for further instructions. documented in this encounter [facility] 07-17-2022 Miscellaneous Notes Botox referral sent to pharmacy. [facility] Brianne Hernandez RN Jacquelyn Zeng is calling 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 APRN.CNP today to request botox referral. No chief complaint on file. Patient has been identified by name and birthdate. Duration of symptoms: N/A Person calling: self Call patient at: on cell [phone] (home) [phone] (cell) Was an appointment scheduled: No Closing statement: Symptom Call: Thank you for calling [facility], your call is very important. A nurse will call in approximately 2-4 hours during business hours. If this is an emergency, please contact 911. Brielle Pressley documented in this encounter [facility] 07-17-2022 Procedure note Headache Center Follow-up [...] for migraine Informed Consent Consent Obtained: Written [place] Protocol A moment to CARE was completed [...] applicable Written Consent Obtained: Written LOT #: [id number] Expiration Date: Month: 5 Year: 2024 Injection Sites Left (Units) Left (Sites) Right (Units) Right (Sites) TOTAL (Units) Emergency Medical Service Coordinator 5 1 5 1 10 Procerus Units: [...] 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 APRN.CNP documented in this encounter [facility] 04-17-2022 Instructions 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 APRN.CNP - [...] it does not, call our office at [phone] for further instructions. documented in this encounter [facility] 04-17-2022 Procedure note Follow-Up Onabotulinum Toxin [...] (202 lb) BMI 29.83 kg/m Patient name: Jaqcuelyn Zeng : 1975 ALLERGIES Allergen Reactions Desonide Other: See Comments patient unaware but hx of TBI so she may not recall Latex Anaphylaxis, Itching Ciprofloxacin Unknown Codeine Hives Erythromycin Hives Latex Itching Penicillin V Hives Sulfa (Sulfonamide * Hives UNIVERSAL PROTOCOL / SAFETY CHECKLIST Procedure: Onabotulinum toxin A for migraine Informed Consent Consent Obtained: Written [place] Protocol A moment to CARE was completed [...] (Sites) Right (Units) Right (Sites) TOTAL (Units) Emergency Medical Service Coordinator 5 1 5 1 10 Procerus Units: [...] 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 APRN.CNP documented in this encounter [facility] 01-09-2022 Instructions 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 APRN.CNP - [...] it does not, call our office at [phone] for further instructions. documented in this encounter [facility] 01-09-2022 Procedure note Follow-Up Onabotulinum Toxin [...] days/month: 0 (0 headache-free hours) Migraine severity: 810 After treatment with Onabotulinum Toxin A: Number [...] for migraine Informed Consent Consent Obtained: Written [place] Protocol A moment to CARE was completed [...] (Sites) Right (Units) Right (Sites) TOTAL (Units) Emergency Medical Service Coordinator 5 1 5 1 10 Procerus Units: [...] the Counter Medications Acetaminophen (Tylenol) 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 APRN.RETAIL FIELD SUPERVISOR documented in this encounter [facility] 12-31-2021 Evaluation note Encounter Date Diagnosis [...] ER for for worsening symptoms or concerns [facility] 07-30-2022 Evaluation note* Encounter Date Diagnosis Assessment Notes Treatment Notes Treatment Clinical Notes Nov, Cellulitis of left earlobe (ICD-10 - H60.12) Discussed diagnosis with patient in detail. Used district wire chief to remove earing today in office. Instructed [...] understanding and is agreeable to treatment plan [facility] Other 04-29-2022 Miscellaneous Notes* Telephone Encounter - [...] referral. Thank you! [facility] Past [facility] Narrative* Problem Noted Date Resolved Date Migraine without aura, witho ut mention of intractable migraine without mention of status migrainosus 04/24/2005 017 documented as of this encounter (statuses as of 09/08/2021) [facility] History of Past illness Narrative* Problem Noted Date Resolved Date Migraine without aura, witho ut mention of intractable migraine without mention of status migrainosus 04/24/2005 017 documented as of this encounter (statuses as of 01/09/2022) [facility] History of Past illness Narrative* Problem Noted Date Resolved Date Migraine without aura, witho ut mention of intractable migraine without mention of status migrainosus 04/24/2005 017 documented as of this encounter (statuses as of 04/17/2022) [facility] History of Past illness Narrative* Problem Noted Date Resolved Date Migraine without aura, witho ut mention of intractable migraine without mention of status migrainosus 04/24/2005 017 documented as of this encounter (statuses as of 07/17/2022) [facility] History of Past illness Narrative* Problem Noted Date Resolved Date Migraine without aura, witho ut mention of intractable migraine without mention of status migrainosus 04/24/2005 017 documented as of this encounter (statuses as of 07/17/2022) [address]13-2005 History of Past illness Narrative* Problem Noted Date Resolved Date Migraine without aura, witho ut mention of intractable migraine without mention of status migrainosus 04/24/2005 017 documented as of this encounter (statuses as of 10/10/2022) [place] [id number] History of Past illness Narrative* Problem Noted Date Diagnosed Date Resolved Date Migraine without aura, witho ut mention of intractable migraine without mention of status migrainosus 04/24/2005 08/01/2016 documented as of this encounter (statuses as of 01/02/2023) [place] [id number] History of Past illness Narrative* Problem Noted Date Diagnosed Date Resolved Date Migraine without aura, witho ut mention of intractable migraine without mention of status migrainosus 04/24/2005 08/01/2016 documented as of this encounter (statuses as of 03/29/2023) [facility] Intractable chronic migraine without aura and without status migrainosus- Primary Chronic migraine without aura, with intractable migraine, so stated, without mention of status migrainosus [facility] noteNo assessment information availableWestern [facility] Work Phone: Evaluation note* Diagnosis Intractable chronic migraine without aura and without status migrainosus- Primary Chronic migraine without aura, with intractable migraine, so stated, without mention of status migrainosus [facility] Diagnosis Intractable chronic migraine without aura and without status migrainosus- Primary Chronic migraine without aura, with intractable migraine, so stated, without mention of status migrainosus [facility] Diagnosis Intractable chronic migraine without aura and without status migrainosus- Primary Chronic migraine without aura, with intractable migraine, so stated, without mention of status migrainosus Chronic daily headache Headache [facility]* Diagnosis Type 2 diabetes mellitus with hyperglycemia, with long-term current use of insulin (CMS/HCC)- Primary Benign essential HTN (CMS/HCC) ADD (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 deficit disorder without mention of hyperactivity MDD (major depressive disorder), recurrent episode, mild (HCC) (CMS/HCC) Generalized anxiety disorder (CMS/HCC) Generalized anxiety disorder Mild intermittent asthma without complication ([facility]/HCC) Complex regional pain syndrome type 1, affecting unspecified site Mixed hyperlipidemia ([facility]/HCC) 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) [facility] Diagnosis Generalized anxiety disorder ([facility]) Generalized anxiety disorder [facility]* Diagnosis Major depressive disorder, single episode, severe without psychotic features (HCC) ([facility]) Generalized anxiety disorder ([facility]) Generalized anxiety disorder Panic disorder ([facility]) Panic disorder without agoraphobia [facility]* Diagnosis Type 2 diabetes mellitus with hyperglycemia, with long-term current use of insulin ([facility])- Primary Benign essential HTN ([facility]) ADD (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 deficit disorder without mention of hyperactivity MDD (major depressive disorder), recurrent episode, mild (HCC) ([facility]) Generalized anxiety disorder ([facility]) Generalized anxiety disorder Mild intermittent asthma without complication ([facility]) Complex regional pain syndrome type 1, affecting unspecified site Mixed hyperlipidemia ([facility]) Mixed hyperlipidemia [facility] (current) use of insulin (Z79.4) ADD (attention deficit disorder) without hyperactivity- Primary Attention deficit disorder without mention of hyperactivity Type 2 diabetes mellitus with hyperglycemia, with long-term current use of insulin ([facility]) Benign essential HTN ([facility]) MDD (major depressive disorder), recurrent episode, mild (HCC) ([facility]) Generalized anxiety disorder ([facility]) Generalized anxiety disorder Type 2 diabetes mellitus with hyperglycemia, with long-term current use of insulin ([facility])- Primary Benign essential HTN ([facility]) ADD (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 deficit disorder without mention of hyperactivity MDD (major depressive disorder), recurrent episode, mild (HCC) ([facility]) Generalized anxiety disorder ([facility]) Generalized anxiety disorder Type 2 diabetes mellitus with polyneuropathy ([facility]) Type II or unspecified type diabetes mellitus with neurological manifestations, not stated as uncontrolled Dysuria Breast cancer screening by mammogram Trochanteric bursitis of both hips- Primary Cervical paraspinal muscle spasm Spasm of muscle Complex regional pain syndrome type 1, affecting unspecified site Migraine without aura and without status migrainosus, not intractable ([facility]) Lumbar spondylosis Lumbosacral spondylosis without myelopathy Cervical spondylosis Cervical spondylosis without myelopathy Other nerve root and plexus disorders documented in this encounter [facility]* Diagnosis Type 2 diabetes mellitus with [...] unspecified site Mixed hyperlipidemia (CMS/HCC) Mixed hyperlipidemia [facility] (current) use of insulin (Z79.4) ADD (attention deficit disorder) without hyperactivity- Primary Attention deficit disorder without mention of hyperactivity Type 2 diabetes mellitus with hyperglycemia, with long-term current use of insulin (CMS/HCC) Benign essential HTN (CMS/HCC) MDD (major depressive disorder), recurrent episode, mild (HCC) (CMS/HCC) Generalized anxiety disorder (CMS/HCC) Generalized anxiety disorder Type 2 diabetes mellitus with hyperglycemia, with long-term current use of insulin (CMS/HCC)- Primary Benign essential HTN (CMS/HCC) ADD (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 deficit disorder without mention of hyperactivity MDD (major depressive disorder), recurrent episode, mild (HCC) (CMS/HCC) Generalized anxiety disorder (CMS/HCC) Generalized anxiety disorder Type 2 diabetes mellitus with polyneuropathy (CMS/HCC) Type II or unspecified type diabetes mellitus with neurological manifestations, not stated as uncontrolled Dysuria Breast cancer screening by mammogram Major depressive disorder, single episode, severe without psychotic features (HCC) (CMS/HCC) Generalized anxiety disorder (CMS/HCC) Generalized anxiety disorder Panic disorder (CMS/HCC) Panic disorder without agoraphobia Insomnia, unspecified type documented in this encounter [facility]* Diagnosis Type 2 diabetes mellitus with [...] unspecified site Mixed hyperlipidemia (CMS/HCC) 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) ADD (attention deficit disorder) without hyperactivity- Primary Attention deficit disorder without mention of hyperactivity Type 2 diabetes mellitus with hyperglycemia, with long-term current use of insulin (CMS/HCC) Benign essential HTN (CMS/HCC) MDD (major depressive disorder), recurrent episode, mild (HCC) (CMS/HCC) Generalized anxiety disorder (CMS/HCC) Generalized anxiety disorder Type 2 diabetes mellitus with hyperglycemia, with long-term current use of insulin (CMS/HCC)- Primary Benign essential HTN (CMS/HCC) ADD (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 deficit disorder without mention of hyperactivity MDD (major depressive disorder), recurrent episode, mild (HCC) (CMS/HCC) Generalized anxiety disorder (CMS/HCC) Generalized anxiety disorder Type 2 diabetes mellitus with polyneuropathy (CMS/HCC) Type II or unspecified type diabetes mellitus with neurological manifestations, not stated as uncontrolled Dysuria Breast cancer screening by mammogram Generalized anxiety disorder (CMS/HCC) Generalized anxiety disorder ADD (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 deficit disorder without mention of hyperactivity [facility]* Diagnosis Type 2 diabetes mellitus with [...] unspecified site Mixed hyperlipidemia (CMS/HCC) Mixed hyperlipidemia [facility] (current) use of insulin (Z79.4) ADD (attention deficit disorder) without hyperactivity- Primary Attention deficit disorder without mention of hyperactivity Type 2 diabetes mellitus with hyperglycemia, with long-term current use of insulin (CMS/HCC) Benign essential HTN (CMS/HCC) MDD (major depressive disorder), recurrent episode, mild (HCC) (CMS/HCC) Generalized anxiety disorder (CMS/HCC) Generalized anxiety disorder Type 2 diabetes mellitus with hyperglycemia, with long-term current use of insulin (CMS/HCC)- Primary Benign essential HTN (CMS/HCC) ADD (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 deficit disorder without mention of hyperactivity MDD (major depressive disorder), recurrent episode, mild (HCC) (CMS/HCC) Generalized anxiety disorder ([facility]) Generalized anxiety disorder Type 2 diabetes mellitus with polyneuropathy ([facility]) Type II or unspecified type diabetes mellitus with neurological manifestations, not stated as uncontrolled Dysuria Breast cancer screening by mammogram Trochanteric bursitis of both hips- Primary documented in this encounter [facility]* Diagnosis Type 2 diabetes mellitus with hyperglycemia, with long-term current use of insulin ([facility])- Primary Benign essential HTN ([facility]) ADD (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 deficit disorder without mention of hyperactivity MDD (major depressive disorder), recurrent episode, mild (HCC) ([facility]) Generalized anxiety disorder ([facility]) Generalized anxiety disorder Mild intermittent asthma without complication ([facility]) Complex regional pain syndrome type 1, affecting unspecified site Mixed hyperlipidemia ([facility]) Mixed hyperlipidemia [facility] (current) use of insulin (Z79.4) ADD (attention deficit disorder) without hyperactivity- Primary Attention deficit disorder without mention of hyperactivity Type 2 diabetes mellitus with hyperglycemia, with long-term current use of insulin ([facility]) Benign essential HTN ([facility]/HCC) MDD (major depressive disorder), recurrent episode, mild (HCC) ([facility]) Generalized anxiety disorder ([facility]) Generalized anxiety disorder Type 2 diabetes mellitus with hyperglycemia, with long-term current use of insulin ([facility])- Primary Benign essential HTN ([facility]/HCC) ADD (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 deficit disorder without mention of hyperactivity MDD (major depressive disorder), recurrent episode, mild (HCC) ([facility]) Generalized anxiety disorder ([facility]) Generalized anxiety disorder Type 2 diabetes mellitus with polyneuropathy ([facility]) Type II or unspecified type diabetes mellitus with neurological manifestations, not stated as uncontrolled Dysuria Breast cancer screening by mammogram Intractable chronic migraine without aura and without status migrainosus ([facility])- Primary Cervical spondylosis Cervical spondylosis without myelopathy Lumbar spondylosis Lumbosacral spondylosis without myelopathy Complex regional pain syndrome type 1, affecting unspecified site Trochanteric bursitis of both hips documented in this encounter [facility]* Diagnosis Intractable chronic migraine without aura and without status migrainosus- Primary Chronic migraine without aura, with intractable migraine, so stated, without mention of status migrainosus Chronic daily headache Headache Status migrainosus Variants of migraine, not elsewhere classified, without mention of intractable migraine without mention of status migrainosus [facility] Status migrainosus- Primary Variants of migraine, not elsewhere classified, without mention of intractable migraine without mention of status migrainosus [facility] Diagnosis Status migrainosus- Primary Variants of migraine, not elsewhere classified, without mention of intractable migraine without mention of status migrainosus [facility] Diagnosis Status migrainosus- Primary Variants of migraine, not elsewhere classified, without mention of intractable migraine without mention of status migrainosus [facility] Diagnosis Status migrainosus- Primary Variants of migraine, not elsewhere classified, without mention of intractable migraine without mention of status migrainosus [facility] Diagnosis Status migrainosus- Primary Variants of migraine, not elsewhere classified, without mention of intractable migraine without mention of status migrainosus [facility] Diagnosis Major depressive disorder, single episode, severe without psychotic features (HCC) ([facility]) Generalized anxiety disorder ([facility]) Generalized anxiety disorder documented in this encounter [facility]* Diagnosis Major depressive disorder, single episode, severe without psychotic features (HCC) ([facility]) Generalized anxiety disorder ([facility]) Generalized anxiety disorder Panic disorder ([facility]) Panic disorder without agoraphobia documented in this encounter [facility]* Diagnosis Generalized anxiety disorder ([facility]) Generalized anxiety disorder documented in this encounter [facility]* Diagnosis Type 2 diabetes mellitus with hyperglycemia, with long-term current use of insulin ([facility])- Primary Benign essential HTN ([facility]/HCC) ADD (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 deficit disorder without mention of hyperactivity MDD (major depressive disorder), recurrent episode, mild (HCC) ([facility]) Generalized anxiety disorder ([facility] Generalized anxiety disorder Mild intermittent asthma without complication ([facility]) Complex regional pain syndrome type 1, affecting unspecified site Mixed hyperlipidemia ([facility]) 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) ADD (attention deficit disorder) without hyperactivity- Primary Attention deficit disorder without mention of hyperactivity Type 2 diabetes mellitus with hyperglycemia, with long-term current use of insulin ([facility]) Benign essential HTN (CMS/HCC) MDD (major depressive disorder), recurrent episode, mild (HCC) ([facility]/HCC) Generalized anxiety disorder ([facility]/HCC) Generalized anxiety disorder Type 2 diabetes mellitus with hyperglycemia, with long-term current use of insulin ([facility]/HCC)- Primary Benign essential HTN (CMS/HCC) ADD (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 deficit disorder without mention of hyperactivity MDD (major depressive disorder), recurrent episode, mild (HCC) ([facility]/HCC) Generalized anxiety disorder ([facility]/HCC) Generalized anxiety disorder Type 2 diabetes mellitus with polyneuropathy ([facility]) Type II or unspecified type diabetes mellitus with neurological manifestations, not stated as uncontrolled Dysuria Breast cancer screening by mammogram Type 2 diabetes mellitus with hyperglycemia, with long-term current use of insulin ([facility])- Primary Benign essential HTN ([facility]/HCC) ADD (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 deficit disorder without mention of hyperactivity MDD (major depressive disorder), recurrent episode, mild (HCC) ([facility]) Generalized anxiety disorder ([facility]) Generalized anxiety disorder Type 2 diabetes mellitus with polyneuropathy ([facility]) Type II or unspecified type diabetes mellitus with neurological manifestations, not stated as uncontrolled Other chronic pancreatitis ([facility]) Acute non-recurrent pansinusitis [facility]* Diagnosis Type 2 diabetes mellitus with hyperglycemia, with long-term current use of insulin ([facility])- Primary Benign essential HTN ([facility]/HCC) ADD (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 deficit disorder without mention of hyperactivity MDD (major depressive disorder), recurrent episode, mild (HCC) ([facility]) Generalized anxiety disorder ([facility]) Generalized anxiety disorder Mild intermittent asthma without complication ([facility]) Complex regional pain syndrome type 1, affecting unspecified site Mixed hyperlipidemia ([facility]) 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) ADD (attention deficit disorder) without hyperactivity- Primary Attention deficit disorder without mention of hyperactivity Type 2 diabetes mellitus with hyperglycemia, with long-term current use of insulin ([facility]/HCC) Benign essential HTN ([facility]/HCC) MDD (major depressive disorder), recurrent episode, mild (HCC) ([facility]) Generalized anxiety disorder ([facility]) Generalized anxiety disorder Type 2 diabetes mellitus with hyperglycemia, with long-term current use of insulin ([facility])- Primary Benign essential HTN ([facility]/HCC) ADD (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 deficit disorder without mention of hyperactivity MDD (major depressive disorder), recurrent episode, mild (HCC) ([facility]) Generalized anxiety disorder ([facility]) Generalized anxiety disorder Type 2 diabetes mellitus with polyneuropathy ([facility]) Type II or unspecified type diabetes mellitus with neurological manifestations, not stated as uncontrolled Dysuria Breast cancer screening by mammogram Type 2 diabetes mellitus with hyperglycemia, with long-term current use of insulin ([facility])- Primary Benign essential HTN ([facility]/HCC) ADD (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 deficit disorder without mention of hyperactivity MDD (major depressive disorder), recurrent episode, mild (HCC) ([facility]) Generalized anxiety disorder ([facility]) Generalized anxiety disorder Type 2 diabetes mellitus with polyneuropathy ([facility]) Type II or unspecified type diabetes mellitus with neurological manifestations, not stated as uncontrolled Other chronic pancreatitis ([facility]) Acute non-recurrent pansinusitis Major depressive disorder, single episode, severe without psychotic features (HCC) ([facility]) Generalized anxiety disorder ([facility]) Generalized anxiety disorder Panic disorder ([facility]) Panic disorder without agoraphobia documented in [facility]* Diagnosis Type 2 diabetes mellitus with hyperglycemia, with long-term current use of insulin ([facility])- Primary Benign essential HTN ([facility]/HCC) ADD (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 deficit disorder without mention of hyperactivity MDD (major depressive disorder), recurrent episode, mild (HCC) ([facility]) Generalized anxiety disorder ([facility]) Generalized anxiety disorder Mild intermittent asthma without complication ([facility]) Complex regional pain syndrome type 1, affecting unspecified site Mixed hyperlipidemia ([facility]) 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) ADD (attention deficit disorder) without hyperactivity- Primary Attention deficit disorder without mention of hyperactivity Type 2 diabetes mellitus with hyperglycemia, with long-term current use of insulin ([facility]) Benign essential HTN ([facility]/HCC) MDD (major depressive disorder), recurrent episode, mild (HCC) ([facility]) Generalized anxiety disorder ([facility]) Generalized anxiety disorder Type 2 diabetes mellitus with hyperglycemia, with long-term current use of insulin ([facility])- Primary Benign essential HTN ([facility]/HCC) ADD (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 deficit disorder without mention of hyperactivity MDD (major depressive disorder), recurrent episode, mild (HCC) (CMS/HCC) Generalized anxiety disorder (CMS/HCC) Generalized anxiety disorder Type 2 diabetes mellitus with polyneuropathy (CMS/HCC) Type II or unspecified type diabetes mellitus with neurological manifestations, not stated as uncontrolled Dysuria Breast cancer screening by mammogram Type 2 diabetes mellitus with hyperglycemia, with long-term current use of insulin (CMS/HCC)- Primary Benign essential HTN (CMS/HCC) ADD (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 deficit disorder without mention of hyperactivity MDD (major depressive disorder), recurrent episode, mild (HCC) (CMS/HCC) Generalized anxiety disorder (CMS/HCC) Generalized anxiety disorder Type 2 diabetes mellitus with polyneuropathy (CMS/HCC) Type II or unspecified type diabetes mellitus with neurological manifestations, not stated as uncontrolled Other chronic pancreatitis (CMS/HCC) Acute non-recurrent pansinusitis Lumbar spondylosis Lumbosacral spondylosis without myelopathy Cervical spondylosis Cervical spondylosis without myelopathy Other nerve root and plexus disorders documented in this [facility]* Diagnosis Type 2 diabetes mellitus with hyperglycemia, with long-term current use of insulin ([facility]/HCC)- Primary Benign essential HTN (CMS/HCC) ADD (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 deficit disorder without mention of hyperactivity MDD (major depressive disorder), recurrent episode, mild (HCC) (CMS/HCC) Generalized anxiety disorder (CMS/HCC) Generalized anxiety disorder Mild intermittent asthma without complication (CMS/HCC) Complex regional pain syndrome type 1, affecting unspecified site Mixed hyperlipidemia (CMS/HCC) 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) ADD (attention deficit disorder) without hyperactivity- Primary Attention deficit disorder without mention of hyperactivity Type 2 diabetes mellitus with hyperglycemia, with long-term current use of insulin (CMS/HCC) Benign essential HTN (CMS/HCC) MDD (major depressive disorder), recurrent episode, mild (HCC) (CMS/HCC) Generalized anxiety disorder (CMS/HCC) Generalized anxiety disorder Type 2 diabetes mellitus with hyperglycemia, with long-term current use of insulin ([facility]/HCC)- Primary Benign essential HTN (CMS/HCC) ADD (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 deficit disorder without mention of hyperactivity MDD (major depressive disorder), recurrent episode, mild (HCC) (CMS/HCC) Generalized anxiety disorder (CMS/HCC) Generalized anxiety disorder Type 2 diabetes mellitus with polyneuropathy (CMS/HCC) Type II or unspecified type diabetes mellitus with neurological manifestations, not stated as uncontrolled Dysuria Breast cancer screening by mammogram Type 2 diabetes mellitus with hyperglycemia, with long-term current use of insulin (CMS/HCC)- Primary Benign essential HTN (CMS/HCC) ADD (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 deficit disorder without mention of hyperactivity MDD (major depressive disorder), recurrent episode, mild (HCC) (CMS/HCC) Generalized anxiety disorder (CMS/HCC) Generalized anxiety disorder Type 2 diabetes mellitus with polyneuropathy (CMS/HCC) Type II or unspecified type diabetes mellitus with neurological manifestations, not stated as uncontrolled Other chronic pancreatitis (CMS/HCC) Acute non-recurrent pansinusitis Generalized anxiety disorder ([facility]/HCC) Generalized anxiety disorder Hyperlipidemia, unspecified ([facility]) documented in [facility]* Diagnosis Type 2 diabetes mellitus with hyperglycemia, with long-term current use of insulin ([facility])- Primary Benign essential HTN (CMS/HCC) ADD (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 deficit disorder without mention of hyperactivity MDD (major depressive disorder), recurrent episode, mild (HCC) (CMS/HCC) Generalized anxiety disorder (CMS/HCC) Generalized anxiety disorder Mild intermittent asthma without complication ([facility]/HCC) Complex regional pain syndrome type 1, affecting unspecified site Mixed hyperlipidemia (CMS/HCC) Mixed hyperlipidemia [facility] (current) use of insulin (Z79.4) ADD (attention deficit disorder) without hyperactivity- Primary Attention deficit disorder without mention of hyperactivity Type 2 diabetes mellitus with hyperglycemia, with long-term current use of insulin (CMS/HCC) Benign essential HTN (CMS/HCC) MDD (major depressive disorder), recurrent episode, mild (HCC) (CMS/HCC) Generalized anxiety disorder (CMS/HCC) Generalized anxiety disorder Type 2 diabetes mellitus with hyperglycemia, with long-term current use of insulin ([facility]/HCC)- Primary Benign essential HTN (CMS/HCC) ADD (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 deficit disorder without mention of hyperactivity MDD (major depressive disorder), recurrent episode, mild (HCC) (CMS/HCC) Generalized anxiety disorder (CMS/HCC) Generalized anxiety disorder Type 2 diabetes mellitus with polyneuropathy (CMS/HCC) Type II or unspecified type diabetes mellitus with neurological manifestations, not stated as uncontrolled Dysuria Breast cancer screening by mammogram Type 2 diabetes mellitus with hyperglycemia, with long-term current use of insulin ([facility]/HCC)- Primary Benign essential HTN (CMS/HCC) ADD (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 deficit disorder without mention of hyperactivity MDD (major depressive disorder), recurrent episode, mild (HCC) (CMS/HCC) Generalized anxiety disorder (CMS/HCC) Generalized anxiety disorder Type 2 diabetes mellitus with polyneuropathy ([facility]) Type II or unspecified type diabetes mellitus with neurological manifestations, not stated as uncontrolled Other chronic pancreatitis ([facility]) Acute non-recurrent pansinusitis Major depressive disorder, single episode, severe without psychotic features (HCC) ([facility]/HCC) Generalized anxiety disorder ([facility]) Generalized anxiety disorder Panic disorder ([facility]) Panic disorder without agoraphobia documented in this [facility]* Diagnosis Type 2 diabetes mellitus with hyperglycemia, with long-term current use of insulin ([facility])- Primary Benign essential HTN (CMS/HCC) ADD (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 deficit disorder without mention of hyperactivity MDD (major depressive disorder), recurrent episode, mild (HCC) ([facility]/HCC) Generalized anxiety disorder ([facility]) Generalized anxiety disorder Mild intermittent asthma without complication ([facility]) Complex regional pain syndrome type 1, affecting unspecified site Mixed hyperlipidemia ([facility]) Mixed hyperlipidemia [facility] (current) use of insulin (Z79.4) ADD (attention deficit disorder) without hyperactivity- Primary Attention deficit disorder without mention of hyperactivity Type 2 diabetes mellitus with hyperglycemia, with long-term current use of insulin ([facility]/HCC) Benign essential HTN (CMS/HCC) MDD (major depressive disorder), recurrent episode, mild (HCC) ([facility]/HCC) Generalized anxiety disorder ([facility]) Generalized anxiety disorder Type 2 diabetes mellitus with hyperglycemia, with long-term current use of insulin ([facility]/HCC)- Primary Benign essential HTN ([facility]/HCC) ADD (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 deficit disorder without mention of hyperactivity MDD (major depressive disorder), recurrent episode, mild (HCC) ([facility]/HCC) Generalized anxiety disorder ([facility]/HCC) Generalized anxiety disorder Type 2 diabetes mellitus with polyneuropathy ([facility]) Type II or unspecified type diabetes mellitus with neurological manifestations, not stated as uncontrolled Dysuria Breast cancer screening by mammogram Type 2 diabetes mellitus with hyperglycemia, with long-term current use of insulin ([facility])- Primary Benign essential HTN (CMS/HCC) ADD (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 deficit disorder without mention of hyperactivity MDD (major depressive disorder), recurrent episode, mild (HCC) ([facility]/HCC) Generalized anxiety disorder ([facility]/HCC) Generalized anxiety disorder Type 2 diabetes mellitus with polyneuropathy ([facility]) Type II or unspecified type diabetes mellitus with neurological manifestations, not stated as uncontrolled Other chronic pancreatitis Acute non-recurrent pansinusitis Medicare annual wellness visit, subsequent- Primary Type 2 diabetes mellitus with hyperglycemia, with long-term current use of insulin ([facility]) Benign essential HTN (CMS/HCC) Dyslipidemia ([facility]/HCC) Other and unspecified hyperlipidemia Encounter for long-term (current) use of medications Encounter for long-term (current) use of other medications Abnormal TSH Other chronic pancreatitis documented in this encounter [facility]* Diagnosis Type 2 diabetes mellitus with hyperglycemia, with long-term current use of insulin ([facility])- Primary Benign essential HTN ([facility]/HCC) ADD (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 deficit disorder without mention of hyperactivity MDD (major depressive disorder), recurrent episode, mild (HCC) ([facility]/HCC) Generalized anxiety disorder ([facility]/HCC) Generalized anxiety disorder Mild intermittent asthma without complication ([facility]) Complex regional pain syndrome type 1, affecting unspecified site Mixed hyperlipidemia ([facility]/HCC) 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) ADD (attention deficit disorder) without hyperactivity- Primary Attention deficit disorder without mention of hyperactivity Type 2 diabetes mellitus with hyperglycemia, with long-term current use of insulin ([facility]/HCC) Benign essential HTN (CMS/HCC) MDD (major depressive disorder), recurrent episode, mild (HCC) ([facility]/HCC) Generalized anxiety disorder ([facility]/HCC) Generalized anxiety disorder Type 2 diabetes mellitus with hyperglycemia, with long-term current use of insulin ([facility]/HCC)- Primary Benign essential HTN ([facility]/HCC) ADD (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 deficit disorder without mention of hyperactivity MDD (major depressive disorder), recurrent episode, mild (HCC) ([facility]/HCC) Generalized anxiety disorder ([facility]/HCC) Generalized anxiety disorder Type 2 diabetes mellitus with polyneuropathy ([facility]) Type II or unspecified type diabetes mellitus with neurological manifestations, not stated as uncontrolled Dysuria Breast cancer screening by mammogram Type 2 diabetes mellitus with hyperglycemia, with long-term current use of insulin ([facility])- Primary Benign essential HTN ([facility]/HCC) ADD (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 deficit disorder without mention of hyperactivity MDD (major depressive disorder), recurrent episode, mild (HCC) ([facility]) Generalized anxiety disorder ([facility]) Generalized anxiety disorder Type 2 diabetes mellitus with polyneuropathy ([facility]) Type II or unspecified type diabetes mellitus with neurological manifestations, not stated as uncontrolled Other chronic pancreatitis Acute non-recurrent pansinusitis Medicare annual wellness visit, subsequent- Primary Type 2 diabetes mellitus with hyperglycemia, with long-term current use of insulin ([facility]) Benign essential HTN ([facility]/HCC) Dyslipidemia ([facility]) Other and unspecified hyperlipidemia Encounter for long-term (current) use of medications Encounter for long-term (current) use of other medications Abnormal TSH Other chronic pancreatitis Generalized anxiety disorder ([facility]) Generalized anxiety disorder documented in this encounter [facility]* Diagnosis Type 2 diabetes mellitus with hyperglycemia, with long-term current use of insulin ([facility])- Primary Benign essential HTN ([facility]) ADD (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 deficit disorder without mention of hyperactivity MDD (major depressive disorder), recurrent episode, mild (HCC) ([facility]) Generalized anxiety disorder ([facility]) Generalized anxiety disorder Mild intermittent asthma without complication ([facility]) Complex regional pain syndrome type 1, affecting unspecified site Mixed hyperlipidemia ([facility]) 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) ADD (attention deficit disorder) without hyperactivity- Primary Attention deficit disorder without mention of hyperactivity Type 2 diabetes mellitus with hyperglycemia, with long-term current use of insulin ([facility]) Benign essential HTN ([facility]/HCC) MDD (major depressive disorder), recurrent episode, mild (HCC) ([facility]) Generalized anxiety disorder ([facility]) Generalized anxiety disorder Type 2 diabetes mellitus with hyperglycemia, with long-term current use of insulin ([facility])- Primary Benign essential HTN ([facility]/HCC) ADD (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 deficit disorder without mention of hyperactivity MDD (major depressive disorder), recurrent episode, mild (HCC) ([facility]) Generalized anxiety disorder ([facility] Generalized anxiety disorder Type 2 diabetes mellitus with polyneuropathy ([facility]) Type II or unspecified type diabetes mellitus with neurological manifestations, not stated as uncontrolled Dysuria Breast cancer screening by mammogram Type 2 diabetes mellitus with hyperglycemia, with long-term current use of insulin (CMS/HCC)- Primary Benign essential HTN (CMS/HCC) ADD (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 deficit disorder without mention of hyperactivity MDD (major depressive disorder), recurrent episode, mild (HCC) (CMS/HCC) Generalized anxiety disorder (CMS/HCC) Generalized anxiety disorder Type 2 diabetes mellitus with polyneuropathy (CMS/HCC) Type II or unspecified type diabetes mellitus with neurological manifestations, not stated as uncontrolled Other chronic pancreatitis Acute non-recurrent pansinusitis Medicare annual wellness visit, subsequent- Primary Type 2 diabetes mellitus with hyperglycemia, with long-term current use of insulin (CMS/HCC) Benign essential HTN (CMS/HCC) Dyslipidemia ([facility]/HCC) Other and unspecified hyperlipidemia Encounter for long-term (current) use of medications Encounter for long-term (current) use of other medications Abnormal TSH Other chronic pancreatitis Major depressive disorder, single episode, severe without psychotic features (HCC) ([facility]/HCC) Generalized anxiety disorder ([facility]) Generalized anxiety disorder [facility] Diagnosis Intractable chronic migraine without aura and without status migrainosus- Primary Chronic migraine without aura, with intractable migraine, so stated, without mention of status migrainosus Chronic daily headache [facility] Diagnosis Type 2 diabetes mellitus with hyperglycemia, with long-term current use of insulin ([facility]/HCC)- Primary Benign essential HTN (CMS/HCC) ADD (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 deficit disorder without mention of hyperactivity MDD (major depressive disorder), recurrent episode, mild (HCC) ([facility]/HCC) Generalized anxiety disorder ([facility]/HCC) Generalized anxiety disorder Mild intermittent asthma without complication ([facility]/HCC) Complex regional pain syndrome type 1, affecting unspecified site Mixed hyperlipidemia (CMS/HCC) 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) ADD (attention deficit disorder) without hyperactivity- Primary Attention deficit disorder without mention of hyperactivity Type 2 diabetes mellitus with hyperglycemia, with long-term current use of insulin ([facility]/HCC) Benign essential HTN (CMS/HCC) MDD (major depressive disorder), recurrent episode, mild (HCC) (CMS/HCC) Generalized anxiety disorder ([facility]/HCC) Generalized anxiety disorder Type 2 diabetes mellitus with hyperglycemia, with long-term current use of insulin ([facility]/HCC)- Primary Benign essential HTN ([facility]) ADD (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 deficit disorder without mention of hyperactivity MDD (major depressive disorder), recurrent episode, mild (HCC) ([facility]) Generalized anxiety disorder ([facility]) Generalized anxiety disorder Type 2 diabetes mellitus with polyneuropathy ([facility]) Type II or unspecified type diabetes mellitus with neurological manifestations, not stated as uncontrolled Dysuria Breast cancer screening by mammogram Type 2 diabetes mellitus with hyperglycemia, with long-term current use of insulin ([facility])- Primary Benign essential HTN ([facility]) ADD (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 deficit disorder without mention of hyperactivity MDD (major depressive disorder), recurrent episode, mild (HCC) ([facility]) Generalized anxiety disorder ([facility]) Generalized anxiety disorder Type 2 diabetes mellitus with polyneuropathy ([facility]) Type II or unspecified type diabetes mellitus with neurological manifestations, not stated as uncontrolled Other chronic pancreatitis Acute non-recurrent pansinusitis Medicare annual wellness visit, subsequent- Primary Type 2 diabetes mellitus with hyperglycemia, with long-term current use of insulin ([facility]) Benign essential HTN ([facility]) Dyslipidemia ([facility]) Other and unspecified hyperlipidemia Encounter for long-term (current) use of medications Encounter for long-term (current) use of other medications Abnormal TSH Other chronic pancreatitis Major depressive disorder, single episode, severe without psychotic features (HCC) ([facility]) Generalized anxiety disorder ([facility]) Generalized anxiety disorder Panic disorder ([facility]) Panic disorder without agoraphobia [facility] Diagnosis Localized osteoarthritis of left [facility] Diagnosis Cervical spondylosis without myelopathy Lumbosacral spondylosis without myelopathy [facility] Diagnosis Type 2 diabetes mellitus with hyperglycemia, with long-term current use of insulin ([facility])- Primary Benign essential HTN ([facility]) ADD (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 deficit disorder without mention of hyperactivity MDD (major depressive disorder), recurrent episode, mild (HCC) ([facility]) Generalized anxiety disorder ([facility]) Generalized anxiety disorder Mild intermittent asthma without complication ([facility]) Complex regional pain syndrome type 1, affecting unspecified site Mixed hyperlipidemia ([facility]) Mixed hyperlipidemia [facility] (current) use of insulin (Z79.4) ADD (attention deficit disorder) without hyperactivity- Primary Attention deficit disorder without mention of hyperactivity Type 2 diabetes mellitus with hyperglycemia, with long-term current use of insulin (CMS/HCC) Benign essential HTN (CMS/HCC) MDD (major depressive disorder), recurrent episode, mild (HCC) (CMS/HCC) Generalized anxiety disorder (CMS/HCC) Generalized anxiety disorder Type 2 diabetes mellitus with hyperglycemia, with long-term current use of insulin (CMS/HCC)- Primary Benign essential HTN (CMS/HCC) ADD (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 deficit disorder without mention of hyperactivity MDD (major depressive disorder), recurrent episode, mild (HCC) (CMS/HCC) Generalized anxiety disorder (CMS/HCC) Generalized anxiety disorder Type 2 diabetes mellitus with polyneuropathy (CMS/HCC) Type II or unspecified type diabetes mellitus with neurological manifestations, not stated as uncontrolled Dysuria Breast cancer screening by mammogram Type 2 diabetes mellitus with hyperglycemia, with long-term current use of insulin (CMS/HCC)- Primary Benign essential HTN (CMS/HCC) ADD (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 deficit disorder without mention of hyperactivity MDD (major depressive disorder), recurrent episode, mild (HCC) (CMS/HCC) Generalized anxiety disorder (CMS/HCC) Generalized anxiety disorder Type 2 diabetes mellitus with polyneuropathy (CMS/HCC) Type II or unspecified type diabetes mellitus with neurological manifestations, not stated as uncontrolled Other chronic pancreatitis Acute non-recurrent pansinusitis Medicare annual wellness visit, subsequent- Primary Type 2 diabetes mellitus with hyperglycemia, with long-term current use of insulin (CMS/HCC) Benign essential HTN (CMS/HCC) Dyslipidemia ([facility]/HCC) Other and unspecified hyperlipidemia Encounter for long-term (current) use of medications Encounter for long-term (current) use of other medications Abnormal TSH Other chronic pancreatitis Trochanteric bursitis of both hips- Primary Lumbar spondylosis Lumbosacral spondylosis without myelopathy Lumbar radiculopathy Thoracic or lumbosacral neuritis or radiculitis, unspecified Nerve root and plexus disorder, unspecified [facility] Diagnosis Pain Generalized pain [facility] Diagnosis Lumbosacral spondylosis without myelopathy documented in this encounter [facility]* Diagnosis Type 2 diabetes mellitus with [...] unspecified site Mixed hyperlipidemia (CMS/HCC) Mixed hyperlipidemia [facility] (current) use of insulin (Z79.4) ADD (attention deficit disorder) without hyperactivity- Primary Attention deficit disorder without mention of hyperactivity Type 2 diabetes mellitus with hyperglycemia, with long-term current use of insulin (CMS/HCC) Benign essential HTN (CMS/HCC) MDD (major depressive disorder), recurrent episode, mild (HCC) (CMS/HCC) Generalized anxiety disorder (CMS/HCC) Generalized anxiety disorder Type 2 diabetes mellitus with hyperglycemia, with long-term current use of insulin ([facility]/HCC)- Primary Benign essential HTN (CMS/HCC) ADD (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 deficit disorder without mention of hyperactivity MDD (major depressive disorder), recurrent episode, mild (HCC) (CMS/HCC) Generalized anxiety disorder (CMS/HCC) Generalized anxiety disorder Type 2 diabetes mellitus with polyneuropathy (CMS/HCC) Type II or unspecified type diabetes mellitus with neurological manifestations, not stated as uncontrolled Dysuria Breast cancer screening by mammogram Type 2 diabetes mellitus with hyperglycemia, with long-term current use of insulin ([facility]/HCC)- Primary Benign essential HTN (CMS/HCC) ADD (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 deficit disorder without mention of hyperactivity MDD (major depressive disorder), recurrent episode, mild (HCC) ([facility]/HCC) Generalized anxiety disorder ([facility]/HCC) Generalized anxiety disorder Type 2 diabetes mellitus with polyneuropathy ([facility]/HCC) Type II or unspecified type diabetes mellitus with neurological manifestations, not stated as uncontrolled Other chronic pancreatitis Acute non-recurrent pansinusitis Medicare annual wellness visit, subsequent- Primary Type 2 diabetes mellitus with hyperglycemia, with long-term current use of insulin (CMS/HCC) Benign essential HTN (CMS/HCC) Dyslipidemia (CMS/HCC) Other and unspecified hyperlipidemia Encounter for long-term (current) use of medications Encounter for long-term (current) use of other medications Abnormal TSH Other chronic pancreatitis Type 2 diabetes mellitus with hyperglycemia, with long-term current use of insulin ([facility])- Primary Benign essential HTN (CMS/HCC) ADD (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 deficit disorder without mention of hyperactivity MDD (major depressive disorder), recurrent episode, mild (HCC) (CMS/HCC) Generalized anxiety disorder ([facility]/HCC) Generalized anxiety disorder Type 2 diabetes mellitus with polyneuropathy ([facility]) Type II or unspecified type diabetes mellitus with neurological manifestations, not stated as uncontrolled Acute non-recurrent pansinusitis documented in this encounter [facility]* Diagnosis Type 2 diabetes mellitus with hyperglycemia, with long-term current use of insulin ([facility])- Primary Benign essential HTN (CMS/HCC) ADD (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 deficit disorder without mention of hyperactivity MDD (major depressive disorder), recurrent episode, mild (HCC) ([facility]/HCC) Generalized anxiety disorder ([facility]/HCC) Generalized anxiety disorder Mild intermittent asthma without complication ([facility]) Complex regional pain syndrome type 1, affecting unspecified site Mixed hyperlipidemia ([facility]) Mixed hyperlipidemia [facility] (current) use of insulin (Z79.4) ADD (attention deficit disorder) without hyperactivity- Primary Attention deficit disorder without mention of hyperactivity Type 2 diabetes mellitus with hyperglycemia, with long-term current use of insulin ([facility]/HCC) Benign essential HTN (CMS/HCC) MDD (major depressive disorder), recurrent episode, mild (HCC) ([facility]/HCC) Generalized anxiety disorder ([facility]) Generalized anxiety disorder Type 2 diabetes mellitus with hyperglycemia, with long-term current use of insulin ([facility])- Primary Benign essential HTN (CMS/HCC) ADD (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 deficit disorder without mention of hyperactivity MDD (major depressive disorder), recurrent episode, mild (HCC) ([facility]/HCC) Generalized anxiety disorder ([facility]/HCC) Generalized anxiety disorder Type 2 diabetes mellitus with polyneuropathy ([facility]) Type II or unspecified type diabetes mellitus with neurological manifestations, not stated as uncontrolled Dysuria Breast cancer screening by mammogram Type 2 diabetes mellitus with hyperglycemia, with long-term current use of insulin ([facility])- Primary Benign essential HTN (CMS/HCC) ADD (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 deficit disorder without mention of hyperactivity MDD (major depressive disorder), recurrent episode, mild (HCC) ([facility]/HCC) Generalized anxiety disorder ([facility]/HCC) Generalized anxiety disorder Type 2 diabetes mellitus with polyneuropathy ([facility]) Type II or unspecified type diabetes mellitus with neurological manifestations, not stated as uncontrolled Other chronic pancreatitis Acute non-recurrent pansinusitis Medicare annual wellness visit, subsequent- Primary Type 2 diabetes mellitus with hyperglycemia, with long-term current use of insulin ([facility]) Benign essential HTN ([facility]/HCC) Dyslipidemia ([facility]) Other and unspecified hyperlipidemia Encounter for long-term (current) use of medications Encounter for long-term (current) use of other medications Abnormal TSH Other chronic pancreatitis Type 2 diabetes mellitus with hyperglycemia, with long-term current use of insulin ([facility])- Primary Benign essential HTN ([facility]) ADD (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 deficit disorder without mention of hyperactivity MDD (major depressive disorder), recurrent episode, mild (HCC) ([facility]) Generalized anxiety disorder ([facility]) Generalized anxiety disorder Type 2 diabetes mellitus with polyneuropathy ([facility]) Type II or unspecified type diabetes mellitus with neurological manifestations, not stated as uncontrolled Acute non-recurrent pansinusitis Major depressive disorder, single episode, severe without psychotic features (HCC) ([facility]) Generalized anxiety disorder ([facility]) Generalized anxiety disorder [facility]* Diagnosis Type 2 diabetes mellitus with hyperglycemia, with long-term current use of insulin ([facility])- Primary Benign essential HTN ([facility]) ADD (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 deficit disorder without mention of hyperactivity MDD (major depressive disorder), recurrent episode, mild (HCC) ([facility]) Generalized anxiety disorder ([facility]) Generalized anxiety disorder Mild intermittent asthma without complication ([facility]) Complex regional pain syndrome type 1, affecting unspecified site Mixed hyperlipidemia ([facility]) Mixed hyperlipidemia [facility] (current) use of insulin (Z79.4) ADD (attention deficit disorder) without hyperactivity- Primary Attention deficit disorder without mention of hyperactivity Type 2 diabetes mellitus with hyperglycemia, with long-term current use of insulin ([facility]) Benign essential HTN ([facility]/HCC) MDD (major depressive disorder), recurrent episode, mild (HCC) ([facility]) Generalized anxiety disorder ([facility]) Generalized anxiety disorder Type 2 diabetes mellitus with hyperglycemia, with long-term current use of insulin ([facility])- Primary Benign essential HTN ([facility]) ADD (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 deficit disorder without mention of hyperactivity MDD (major depressive disorder), recurrent episode, mild (HCC) ([facility]) Generalized anxiety disorder ([facility]) Generalized anxiety disorder Type 2 diabetes mellitus with polyneuropathy ([facility]) Type II or unspecified type diabetes mellitus with neurological manifestations, not stated as uncontrolled Dysuria Breast cancer screening by mammogram Type 2 diabetes mellitus with hyperglycemia, with long-term current use of insulin ([facility])- Primary Benign essential HTN ([facility]) ADD (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 deficit disorder without mention of hyperactivity MDD (major depressive disorder), recurrent episode, mild (HCC) ([facility]) Generalized anxiety disorder ([facility]) Generalized anxiety disorder Type 2 diabetes mellitus with polyneuropathy ([facility]) Type II or unspecified type diabetes mellitus with neurological manifestations, not stated as uncontrolled Other chronic pancreatitis Acute non-recurrent pansinusitis Medicare annual wellness visit, subsequent- Primary Type 2 diabetes mellitus with hyperglycemia, with long-term current use of insulin ([facility]) Benign essential HTN ([facility]) Dyslipidemia ([facility]) Other and unspecified hyperlipidemia Encounter for long-term (current) use of medications Encounter for long-term (current) use of other medications Abnormal TSH Other chronic pancreatitis Generalized anxiety disorder ([facility]) Generalized anxiety disorder Type 2 diabetes mellitus with hyperglycemia, with long-term current use of insulin ([facility])- Primary Benign essential HTN ([facility]) ADD (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 deficit disorder without mention of hyperactivity MDD (major depressive disorder), recurrent episode, mild (HCC) ([facility]) Generalized anxiety disorder ([facility]) Generalized anxiety disorder Type 2 diabetes mellitus with polyneuropathy ([facility]) Type II or unspecified type diabetes mellitus with neurological manifestations, not stated as uncontrolled Acute non-recurrent pansinusitis documented in this encounter [facility]* Diagnosis Type 2 diabetes mellitus with hyperglycemia, with long-term current use of insulin (HCC)- Primary Benign essential HTN ADD (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 deficit disorder without mention of hyperactivity MDD (major depressive disorder), recurrent episode, mild Generalized anxiety disorder Generalized anxiety disorder Mild intermittent asthma without complication (HCC) Complex regional pain syndrome type 1, affecting unspecified site Mixed hyperlipidemia Mixed hyperlipidemia [facility] (current) use of insulin (Z79.4) ADD (attention deficit disorder) without hyperactivity- Primary Attention deficit disorder without mention of hyperactivity Type 2 diabetes mellitus with hyperglycemia, with long-term current use of insulin (HCC) Benign essential HTN MDD (major depressive disorder), recurrent episode, mild Generalized anxiety disorder Generalized anxiety disorder Type 2 diabetes mellitus with hyperglycemia, with long-term current use of insulin (HCC)- Primary Benign essential HTN ADD (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 deficit disorder without mention of hyperactivity MDD (major depressive disorder), recurrent episode, mild Generalized anxiety disorder Generalized anxiety disorder Type 2 diabetes mellitus with polyneuropathy (HCC) Type II or unspecified type diabetes mellitus with neurological manifestations, not stated as uncontrolled Dysuria Breast cancer screening by mammogram Type 2 diabetes mellitus with hyperglycemia, with long-term current use of insulin (HCC)- Primary Benign essential HTN ADD (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 deficit disorder without mention of hyperactivity MDD (major depressive disorder), recurrent episode, mild Generalized anxiety disorder Generalized anxiety disorder Type 2 diabetes mellitus with polyneuropathy ([facility]) Type II or unspecified type diabetes mellitus with neurological manifestations, not stated as uncontrolled Other chronic pancreatitis ([facility]) Acute non-recurrent pansinusitis Medicare annual wellness visit, subsequent- Primary Type 2 diabetes mellitus with hyperglycemia, with long-term current use of insulin (HCC) Benign essential HTN Dyslipidemia Other and unspecified hyperlipidemia Encounter for long-term (current) use of medications Encounter for long-term (current) use of other medications Abnormal TSH Other chronic pancreatitis (HCC) Type 2 diabetes mellitus with hyperglycemia, with long-term current use of insulin (HCC)- Primary Benign essential HTN ADD (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 deficit disorder without mention of hyperactivity MDD (major depressive disorder), recurrent episode, mild Generalized anxiety disorder Generalized anxiety disorder Type 2 diabetes mellitus with polyneuropathy ([facility]) Type II or unspecified type diabetes mellitus with neurological manifestations, not stated as uncontrolled Acute non-recurrent pansinusitis Trochanteric bursitis of both hips- Primary Nerve root and plexus disorder, unspecified documented in [facility] encounter [facility]* Diagnosis Type 2 diabetes mellitus with hyperglycemia, with long-term current use of insulin (HCC)- Primary Benign essential HTN ADD (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 deficit disorder without mention of hyperactivity MDD (major depressive disorder), recurrent episode, mild Generalized anxiety disorder Generalized anxiety disorder Mild intermittent asthma without complication (HCC) Complex regional pain syndrome type 1, affecting unspecified site Mixed hyperlipidemia 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) ADD (attention deficit disorder) without hyperactivity- Primary Attention deficit disorder without mention of hyperactivity Type 2 diabetes mellitus with hyperglycemia, with long-term current use of insulin (HCC) Benign essential HTN MDD (major depressive disorder), recurrent episode, mild Generalized anxiety disorder Generalized anxiety disorder Type 2 diabetes mellitus with hyperglycemia, with long-term current use of insulin (HCC)- Primary Benign essential HTN ADD (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 deficit disorder without mention of hyperactivity MDD (major depressive disorder), recurrent episode, mild Generalized anxiety disorder Generalized anxiety disorder Type 2 diabetes mellitus with polyneuropathy (HCC) Type II or unspecified type diabetes mellitus with neurological manifestations, not stated as uncontrolled Dysuria Breast cancer screening by mammogram Type 2 diabetes mellitus with hyperglycemia, with long-term current use of insulin (HCC)- Primary Benign essential HTN ADD (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 deficit disorder without mention of hyperactivity MDD (major depressive disorder), recurrent episode, mild Generalized anxiety disorder Generalized anxiety disorder Type 2 diabetes mellitus with polyneuropathy ([facility]) Type II or unspecified type diabetes mellitus with neurological manifestations, not stated as uncontrolled Other chronic pancreatitis (HCC) Acute non-recurrent pansinusitis Medicare annual wellness visit, subsequent- Primary Type 2 diabetes mellitus with hyperglycemia, with long-term current use of insulin (HCC) Benign essential HTN Dyslipidemia Other and unspecified hyperlipidemia Encounter for long-term (current) use of medications Encounter for long-term (current) use of other medications Abnormal TSH Other chronic pancreatitis (HCC) Type 2 diabetes mellitus with hyperglycemia, with long-term current use of insulin (HCC)- Primary Benign essential HTN ADD (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 deficit disorder without mention of hyperactivity MDD (major depressive disorder), recurrent episode, mild Generalized anxiety disorder Generalized anxiety disorder Type 2 diabetes mellitus with polyneuropathy (HCC) Type II or unspecified type diabetes mellitus with neurological manifestations, not stated as uncontrolled Acute non-recurrent pansinusitis Lumbar spondylosis Lumbosacral spondylosis without myelopathy Cervical spondylosis Cervical spondylosis without myelopathy Other nerve root and plexus disorders documented in this encounter [facility]* Diagnosis Type 2 diabetes mellitus with hyperglycemia, with long-term current use of insulin (HCC)- Primary Benign essential HTN ADD (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 deficit disorder without mention of hyperactivity MDD (major depressive disorder), recurrent episode, mild Generalized anxiety disorder Generalized anxiety disorder Mild intermittent asthma without complication (HCC) Complex regional pain syndrome type 1, affecting unspecified site Mixed hyperlipidemia Mixed hyperlipidemia MCFP (current) use of insulin (Z79.4) ADD (attention deficit disorder) without hyperactivity- Primary Attention deficit disorder without mention of hyperactivity Type 2 diabetes mellitus with hyperglycemia, with long-term current use of insulin (HCC) Benign essential HTN MDD (major depressive disorder), recurrent episode, mild Generalized anxiety disorder Generalized anxiety disorder Type 2 diabetes mellitus with hyperglycemia, with long-term current use of insulin (HCC)- Primary Benign essential HTN ADD (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 deficit disorder without mention of hyperactivity MDD (major depressive disorder), recurrent episode, mild Generalized anxiety disorder Generalized anxiety disorder Type 2 diabetes mellitus with polyneuropathy (HCC) Type II or unspecified type diabetes mellitus with neurological manifestations, not stated as uncontrolled Dysuria Breast cancer screening by mammogram Type 2 diabetes mellitus with hyperglycemia, with long-term current use of insulin (HCC)- Primary Benign essential HTN ADD (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 deficit disorder without mention of hyperactivity MDD (major depressive disorder), recurrent episode, mild Generalized anxiety disorder Generalized anxiety disorder Type 2 diabetes mellitus with polyneuropathy (HCC) Type II or unspecified type diabetes mellitus with neurological manifestations, not stated as uncontrolled Other chronic pancreatitis (HCC) Acute non-recurrent pansinusitis Medicare annual wellness visit, subsequent- Primary Type 2 diabetes mellitus with hyperglycemia, with long-term current use of insulin (HCC) Benign essential HTN Dyslipidemia Other and unspecified hyperlipidemia Encounter for long-term (current) use of medications Encounter for long-term (current) use of other medications Abnormal TSH Other chronic pancreatitis (HCC) Type 2 diabetes mellitus with hyperglycemia, with long-term current use of insulin (HCC)- Primary Benign essential HTN ADD (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 deficit disorder without mention of hyperactivity MDD (major depressive disorder), recurrent episode, mild Generalized anxiety disorder Generalized anxiety disorder Type 2 diabetes mellitus with polyneuropathy (HCC) Type II or unspecified type diabetes mellitus with neurological manifestations, not stated as uncontrolled Acute non-recurrent pansinusitis Type 2 diabetes mellitus with polyneuropathy (HCC) Type II or unspecified type diabetes mellitus with neurological manifestations, not stated as uncontrolled Generalized anxiety disorder Generalized anxiety disorder documented [facility] Diagnosis Intractable chronic migraine without aura and without status migrainosus- Primary Chronic migraine without aura, with intractable migraine, so stated, without mention of status migrainosus Chronic daily headache Headache [facility] Diagnosis Type 2 diabetes mellitus with hyperglycemia, with long-term current use of insulin (HCC)- Primary Benign essential HTN ADD (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 deficit disorder without mention of hyperactivity MDD (major depressive disorder), recurrent episode, mild Generalized anxiety disorder Generalized anxiety disorder Mild intermittent asthma without complication (HCC) Complex regional pain syndrome type 1, affecting unspecified site Mixed hyperlipidemia 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) ADD (attention deficit disorder) without hyperactivity- Primary Attention deficit disorder without mention of hyperactivity Type 2 diabetes mellitus with hyperglycemia, with long-term current use of insulin (HCC) Benign essential HTN MDD (major depressive disorder), recurrent episode, mild Generalized anxiety disorder Generalized anxiety disorder Type 2 diabetes mellitus with hyperglycemia, with long-term current use of insulin (HCC)- Primary Benign essential HTN ADD (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 deficit disorder without mention of hyperactivity MDD (major depressive disorder), recurrent episode, mild Generalized anxiety disorder Generalized anxiety disorder Type 2 diabetes mellitus with polyneuropathy (HCC) Type II or unspecified type diabetes mellitus with neurological manifestations, not stated as uncontrolled Dysuria Breast cancer screening by mammogram Type 2 diabetes mellitus with hyperglycemia, with long-term current use of insulin (HCC)- Primary Benign essential HTN ADD (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 deficit disorder without mention of hyperactivity MDD (major depressive disorder), recurrent episode, mild Generalized anxiety disorder Generalized anxiety disorder Type 2 diabetes mellitus with polyneuropathy (HCC) Type II or unspecified type diabetes mellitus with neurological manifestations, not stated as uncontrolled Other chronic pancreatitis (HCC) Acute non-recurrent pansinusitis Medicare annual wellness visit, subsequent- Primary Type 2 diabetes mellitus with hyperglycemia, with long-term current use of insulin (HCC) Benign essential HTN Dyslipidemia Other and unspecified hyperlipidemia Encounter for long-term (current) use of medications Encounter for long-term (current) use of other medications Abnormal TSH Other chronic pancreatitis (HCC) Type 2 diabetes mellitus with hyperglycemia, with long-term current use of insulin (HCC)- Primary Benign essential HTN ADD (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 deficit disorder without mention of hyperactivity MDD (major depressive disorder), recurrent episode, mild Generalized anxiety disorder Generalized anxiety disorder Type 2 diabetes mellitus with polyneuropathy (HCC) Type II or unspecified type diabetes mellitus with neurological manifestations, not stated as uncontrolled Acute non-recurrent pansinusitis Trochanteric bursitis of both hips- Primary Radiculopathy, cervical region Brachial neuritis or radiculitis nos Lumbar spondylosis Lumbosacral spondylosis without myelopathy Cervical spondylosis Cervical spondylosis without myelopathy Other nerve root and plexus disorders Nerve root and plexus disorder, unspecified documented in this encounter [facility] N[facility] - Reported* Type Description Date Medical History diabetes mellitus Medical History asthma Medical History Asthmatic Bronchitis Medical History fibroids Medical History migraine headaches 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 Medical History OVARIAN CYSTS Surgical History ABLATION Surgical History CHOLECYSTECTOMY Hospitalization History SEE ABOVE SURGERY [facility] Other Hospital Discharge instructions Additional Instructions Avoid trauma to the surgical site.[facility] Work Phone: Reason for visit Narrative* Imaging (Routine) - Pending Review Specialty Diagnoses / Procedures Referred By Mary jenkins Referred To Contact Radiology Diagnoses Pain Procedures FLUORO FOR SURGICAL PROCEDURES Jessee Billy MD [address] [place] [address] Phone: tel: fax: Referral ID Status Reason Start Date Expiration Date V isits Requested Visits Authorized [id number] Pending Review 10/08/2024 10/08/2025 1 1 [facility] Summary Purpose Family History No Family History [...] of lung Unknown sister Diabetes mellitus Unknown Relationship Condition Age at Onset Recorded Date/T nehemias father Malignant neoplasm of colon Unknown Diabetes mellitus Unknown Ventricular fibrillation Unknown Heart disease Unknown Unknown mother Diabetes mellitus Unknown Atrial fibrillation Unknown Malignant [...] Mass Chief Complaint Back Mass Back Mass Chief Complaint hx of colon polyps Additional Source Comments INFORMATION SOURCE (unrecogn ized section and content) DATE CREATED AUTHOR 01/27/2020 [facility] DATE CREATED AUTHOR AUTHOR'S ORGANIZ ATION 03/25/2021 [facility] DATE CREATED AUTHOR AUTHOR'S ORGANIZ ATION 09/02/2022 [facility] DATE CREATED AUTHOR AUTHOR'S ORGANIZ ATION 03/10/[address] [facility] DATE CREATED AUTHOR AUTHOR'S ORGANIZ ATION 10/10/2024 [facility] DATE CREATED AUTHOR AUTHOR'S ORGANIZ ATION 12/05/2024 [facility] DATE CREATED AUTHOR AUTHOR'S ORGANIZ ATION 12/08/2024 [facility] DATE CREATED AUTHOR AUTHOR'S ORGANIZ ATION 12/24/2024 [facility] DATE CREATED AUTHOR AUTHOR'S ORGANIZ ATION 12/26/2024 [facility] Source Comments (unrecognize d section and content) In the event this informatio n is protected by the Federal Confidentiality of Alcohol and Drug Abuse Patient Records regulations: The Federal rules restrict any use of the information to criminally investigate or prosecute any alcohol or drug abuse patient.[facility] the event this information is protected by the Federal Confidentiality of Alcohol and Drug Abuse Patient Records regulations: The Federal rules restrict any use of the information to criminally investigate or prosecute any alcohol or drug abuse patient.[facility] the event this information is protected by the Federal Confidentiality of Alcohol and Drug Abuse Patient Records regulations: The Federal rules restrict any use of the information to criminally investigate or prosecute any alcohol or drug abuse patient.[facility] Hospital[facility] the event this information is protected by the Federal Confidentiality of Alcohol and Drug Abuse Patient Records regulations: The Federal rules restrict any use of the information to criminally investigate or prosecute any alcohol or drug abuse patient.[facility] Hospital[facility] the event this information is protected by the Federal Confidentiality of Alcohol and Drug Abuse Patient Records regulations: The Federal rules restrict any use of the information to criminally investigate or prosecute any alcohol or drug abuse patient.[facility] Hospital[facility] the event this information is protected by the Federal Confidentiality of Alcohol and Drug Abuse Patient Records regulations: The Federal rules restrict any use of the information to criminally investigate or prosecute any alcohol or drug abuse patient.[facility] Hospital[facility] the event this information is protected by the Federal Confidentiality of Alcohol and Drug Abuse Patient Records regulations: The Federal rules restrict any use of the information to criminally investigate or prosecute any alcohol or drug abuse patient.[facility] Hospital[facility] the event this information is protected by the Federal Confidentiality of Alcohol and Drug Abuse Patient Records regulations: The Federal rules restrict any use of the information to criminally investigate or prosecute any alcohol or drug abuse patient.[facility] Hospital[facility] the event this information is protected by the Federal Confidentiality of Alcohol and Drug Abuse Patient Records regulations: The Federal rules restrict any use of the information to criminally investigate or prosecute any alcohol or drug abuse patient.[facility] Hospital[facility] the event this information is protected by the Federal Confidentiality of Alcohol and Drug Abuse Patient Records regulations: The Federal rules restrict any use of the information to criminally investigate or prosecute any alcohol or drug abuse patient.[facility] Hospital[facility] the event this information is protected by the Federal Confidentiality of Alcohol and Drug Abuse Patient Records regulations: The Federal rules restrict any use of the information to criminally investigate or prosecute any alcohol or drug abuse patient.[facility] Hospital[facility] the event this information is protected by the Federal Confidentiality of Alcohol and Drug Abuse Patient Records regulations: The Federal rules restrict any use of the information to criminally investigate or prosecute any alcohol or drug abuse patient.[facility] HospitalIn the event this information is protected by the Federal Confidentiality of Alcohol and Drug Abuse Patient Records regulations: The Federal rules restrict any use of the information to criminally investigate or prosecute any alcohol or drug abuse patient.[facility] HospitalIn the event this information is protected by the Federal Confidentiality of Alcohol and Drug Abuse Patient Records regulations: The Federal rules restrict any use of the information to criminally investigate or prosecute any alcohol or drug abuse patient.[facility] HospitalIn the event this information is protected by the Federal Confidentiality of Alcohol and Drug Abuse Patient Records regulations: The Federal rules restrict any use of the information to criminally investigate or prosecute any alcohol or drug abuse patient.[facility] HospitalIn the event this information is protected by the Federal Confidentiality of Alcohol and Drug Abuse Patient Records regulations: The Federal rules restrict any use of the information to criminally investigate or prosecute any alcohol or drug abuse patient.[facility] HospitalIn the event this information is protected by the Federal Confidentiality of Alcohol and Drug Abuse Patient Records regulations: The Federal rules restrict any use of the information to criminally investigate or prosecute any alcohol or drug abuse patient.[facility] HospitalIn the event this information is protected by the Federal Confidentiality of Alcohol and Drug Abuse Patient Records regulations: The Federal rules restrict any use of the information to criminally investigate or prosecute any alcohol or drug abuse patient.[facility] HospitalIn the event this information is protected by the Federal Confidentiality of Alcohol and Drug Abuse Patient Records regulations: The Federal rules restrict any use of the information to criminally investigate or prosecute any alcohol or drug abuse patient.[facility] HospitalIn the event this information is protected by the Federal Confidentiality of Alcohol and Drug Abuse Patient Records regulations: The Federal rules restrict any use of the information to criminally investigate or prosecute any alcohol or drug abuse patient.[facility] HospitalIn the event this information is protected by the Federal Confidentiality of Alcohol and Drug Abuse Patient Records regulations: The Federal rules restrict any use of the information to criminally investigate or prosecute any alcohol or drug abuse patient.[facility] Reason for Visit (unrecogniz ed section and content) Reason Comments Follow Up Botox Specialty Diagnoses / Procedures Referred By Contac t Referred To Contact HEADACHE Diagnoses Chronic migraine without aura, intractable, without status migrainosus Procedures BOTULINUM TOXIN A PER 1 UNIT CHEMODERVATE FACIAL/TRIGEM/CERV MUSC MIGRAINE Renewal due 06/29/2024 Botox 200 units every 12 weeks for 1 year through [facility] and bill. 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 [address] [id number] Phone: tel: fax: Neurology [address] [id number] Phone: tel: fax: Referral ID Status Reason Start Date Expiration Date V isits Requested Visits Authorized [id number] Authorized 07/28/2024 01/28/2025 12 12 Reason Comments Botox Injection Specialty Diagnoses / Procedures Referred By Contac t Referred To Contact HEADACHE Diagnoses Chronic migraine without aura, intractable, without status migrainosus Procedures BOTULINUM TOXIN A PER 1 UNIT CHEMODERVATE FACIAL/TRIGEM/CERV MUSC MIGRAINE Renewal due 11/07/2021 Botox 200 units every 12 weeks for 1 year through [facility] buy and bill Preempt protocol [id number] Procedure -14252 chemodervate facial/trigem/cerv musc migraine 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, 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 [address] [place] [address] Neur Headache Main S2 [address] [phone] Referral ID Status Reason Start Date Expiration Date Visits Re quested Visits Authorized [id number] Closed 10/27/2021 04/28/2022 2 2 Reason Comments Referral Request Reason Comments Migraine Referral ID Status Reason Start Date Expiration Date V isits Requested Visits Authorized [id number] Authorized 10/27/2021 04/28/2022 2 2 Specialty Diagnoses / Procedures Referred By Contac t Referred To Contact HEADACHE Diagnoses Chronic migraine without aura, intractable, without status migrainosus Procedures BOTULINUM TOXIN A PER 1 UNIT CHEMODERVATE FACIAL/TRIGEM/CERV MUSC MIGRAINE Renewal - next visit expected on 10/09/22 Botox 200 units every 12 weeks for 1 year through [facility] buy and bill Preempt protocol [id number] Procedure -02570 chemodervate facial/trigem/cerv musc migraine 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, 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 [address] [place] [address] Neur Headache Main S2 [address] [id number] Referral ID Status Reason Start Date Expiration Date V isits Requested Visits Authorized [id number] Waiting for Response 07/19/2022 09/17/2023 5 5 Reason Comments Botox Injection Reason Comments Appointment Reason Comments Follow-up Med mgmt Reason Onset Date Comments Med Refill 06/21/2023 Reason Comments Patient Question Reason Comments Follow-up Reason Comments Forms BWC forms Reason Comments Forms Bwc (Worker's Comp) C9 Botox form Reason Comments Med Refill Referral ID Status Reason Start Date Expiration Date V isits Requested Visits Authorized [id number] Closed Financial Clearance Not Required 10/30/2023 04/30/2024 4 4 Reason Comments Infusion Headache Specialty Diagnoses / Procedures Referred By Contac t Referred To Contact Neurology / HEADACHE Diagnoses Non-DHE Infusion Day #1 Procedures INFUSION HEADACHE Kinga Mnedes, 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 [address] [place] [address] Neur Headache Main S[address] [place] [address] Referral ID Status Reason Start Date Expiration Date V isits Requested Visits Authorized [id number] Authorized 04/08/2024 07/07/2024 1 99 Reason Comments Infusion Specialty Diagnoses / Procedures Referred By Contac t Referred To Contact Neurology / HEADACHE Diagnoses Follow-up exam Procedures OFFICE/OUTPATIENT ESTABLISHED HIGH MDM 40 MIN EST NI PATIENT Self Grenfell, Marilynn, PA-C [address] [place] [address] Referral ID Status Reason Start Date Expiration Date V isits Requested Visits Authorized [id number] Authorized 04/10/2024 04/10/2025 99 99 Reason Comments Follow-up 3m Flank Pain bilateral Sinusitis Congestion Reason Comments Medicare Annual Wellness Visit Subsequen t wellness Reason Comments Back Pain Right MBB Specialty Diagnoses / Procedures Referred By Conthardeep t Referred To Contact Pain Management Diagnoses PRECERT- RIGHT MBB L345 #1 Procedures INJ DX/THER AGNT PARAVERT FACET JOINT, LUMBAR/SAC, 1ST LEVEL Jessee Billy MD [address] [place] [address] Phone: tel: fax: Referral ID Status Reason Start Date Expiration Date V isits Requested Visits Authorized [id number] Authorized 09/17/2024 03/16/2025 1 1 Reason Comments Follow-up 3m Earache Left ear pain Care Teams (unrecognized sec tion and content) Team Status: Active Member Role Status Dates Josh Ochoa MD Primary Care Provider Active Team Status: Inactive Member Role Status Dates Josh Ochoa MD Primary Care Provider Active Lee Chowdary MD Attending Provider Active Load Manager Relationship Specialty Start Date End Date Josh Ochoa PCP - General Family Practice 08/01/16 Deja Martins CNP Family Practice 09/17/16 Load Manager Relationship Specialty Start Date End Date Josh Ochoa PCP - General Family Practice 08/01/16 Deja Martins CNP Family Practice 09/17/16 Team Status: Inactive Member Role Status Dates Josh Ochoa MD Primary Care Provider Active Marie Elias MD Attending Provider Active Load Manager Relationship Specialty Start Date End Date Josh Ochoa PCP - General Family Medicine 08/01/16 Deja Martins CNP Family Medicine 09/17/16 Load Manager Relationship Specialty Start Date End Date Josh Ochoa PCP - General Family Medicine 08/01/16 Deja Martins CNP Family Medicine 09/17/16 Load Manager Relationship Specialty Start Date End Date Josh Ochoa PCP - General Family Medicine 08/01/16 Deja Martins CNP Family Medicine 09/17/16 Load Manager Relationship Specialty Start Date End Date Josh Ochoa PCP - General Family Medicine 08/01/16 Deja Martins CNP Family Medicine 09/17/16 Load Manager Relationship Specialty Start Date End Date Josh Ochoa PCP - General Family Medicine 08/01/16 Deja Martins CNP Family Medicine 09/17/16 Load Manager Relationship Specialty Start Date End Date Josh Ochoa PCP - General Family Medicine 08/01/16 Deja Martins CNP Family Medicine 09/17/16 Load Manager Relationship Specialty Start Date End Date Josh Ochoa MD [address] [place] [phone] PCP - General Family Medicine 06/17/23 Load Manager Relationship Specialty Start Date End Date Josh Ochoa MD [address] [place] [phone] PCP - General Family Medicine 06/17/23 Load Manager Relationship Specialty Start Date End Date Josh Ochoa MD [address] [place] [address] PCP - General Family Medicine 06/17/23 Load Manager Relationship Specialty Start Date End Date Josh Ochoa MD [address] [place] [phone] PCP - General Family Medicine 06/17/23 Load Manager Relationship Specialty Start Date End Date Josh Ochoa PCP - General Family Medicine 08/01/16 Deja Martins CNP Family Medicine 09/17/16 Load Manager Relationship Specialty Start Date End Date Josh Ochoa MD [address] [place] [address] PCP - General Family Medicine 06/17/23 Josh Ochoa MD [address] [place] [phone] PCP - [employer] 02/10/23 Load Manager Relationship Specialty Start Date End Date Josh Ochoa MD [address] [place] [address] PCP - General Family Medicine 06/17/23 Josh Ochoa MD [address] [place] [address] PCP - [employer] 02/10/23 Load Manager Relationship Specialty Start Date End Date Josh Ochoa MD [address] [place] [phone] PCP - General Family Medicine 06/17/23 Josh Ochoa MD [address] [place] [phone] PCP - [employer] 02/10/23 Load Manager Relationship Specialty Start Date End Date Josh Ochoa MD [address] [place] [phone] PCP - General Family Medicine 06/17/23 Josh Ochoa MD [address] [place] [address] PCP - [employer] 02/10/23 Load Manager Relationship Specialty Start Date End Date Josh Ochoa MD PCP - General Family Medicine 08/01/16 Deja Martins CNP Family Medicine 09/17/16 Load Manager Relationship Specialty Start Date End Date Josh Ochoa MD PCP - General Family Medicine 08/01/16 Deja Martins CNP Family Medicine 09/17/16 Team Status: Inactive Member Role Status Dates Josh Ochoa MD Primary Care Provider Active S tart: January 08, 2024 End: January 08, 2024 Al Kumar MD Attending Provider Active Start: January 08, 2024 End: January 08, 2024 Load Manager Relationship Specialty Start Date End Date Josh Ochoa MD [address] [place] [phone] PCP - General Family Medicine 06/17/23 Josh Ochoa MD [address] [place] [phone] PCP - [employer] 02/10/23 Load Manager Relationship Specialty Start Date End Date Josh Ochoa MD [address] [place] [phone] PCP - General Family Medicine 06/17/23 Josh Ochoa MD [address] [place] [address] PCP - [employer] 02/10/23 Load Manager Relationship Specialty Start Date End Date Josh Ochoa MD [address] [place] [phone] PCP - General Family Medicine 06/17/23 Josh Ochoa MD [address] [place] [address] PCP - [employer] 02/10/23 Load Manager Relationship Specialty Start Date End Date Josh Ochoa MD [address] [place] [address] PCP - General Family Medicine 06/17/23 Josh Ochoa MD [address] [place] [address] PCP - [employer] 02/10/23 Load Manager Relationship Specialty Start Date End Date Josh Ochoa MD PCP - General Family Medicine 08/01/16 Deja Martins CNP Family Medicine 09/17/16 Load Manager Relationship Specialty Start Date End Date Josh Ochoa MD PCP - General Family Medicine 08/01/16 Deja Martins CNP Family Medicine 09/17/16 Load Manager Relationship Specialty Start Date End Date Josh Ochoa MD PCP - General Family Medicine 08/01/16 Deja Martins CNP Family Medicine 09/17/16 Load Manager Relationship Specialty Start Date End Date oJsh Ochoa MD PCP - General Family Medicine 08/01/16 Deja Martins CNP Family Medicine 09/17/16 Load Manager Relationship Specialty Start Date End Date Josh Ochoa MD PCP - General Family Medicine 08/01/16 Deja Martins CNP Family Medicine 09/17/16 Load Manager Relationship Specialty Start Date End Date Josh Ochoa MD [address] [place] [address] PCP - General Family Medicine 06/17/23 Josh Ochoa MD [address] [place] [address] PCP - [employer] 02/10/23 Load Manager Relationship Specialty Start Date End Date Josh Ochoa MD [address] [place] [address] PCP - General Family Medicine 06/17/23 Josh Ochoa MD [address] [place] [address] PCP - [employer] 02/10/23 Load Manager Relationship Specialty Start Date End Date Josh Ochoa MD [address] [place] [address] PCP - General Family Medicine 06/17/23 Josh Ochoa MD [address] [place] [address] PCP - [employer] 02/10/23 Load Manager Relationship Specialty Start Date End Date Josh Ochoa MD [address] [place] [address] PCP - General Family Medicine 06/17/23 Josh Ochoa MD [address] [place] [address] PCP - [employer] 02/10/23 Load Manager Relationship Specialty Start Date End Date Josh Ochoa MD [address] [place] [address] PCP - General Family Medicine 06/17/23 Josh Ochoa MD [address] [place] [address] PCP - [employer] 02/10/23 Load Manager Relationship Specialty Start Date End Date Josh Ochoa MD [address] [place] [address] PCP - General Family Medicine 06/17/23 Josh Ochoa MD [address] [place] [address] PCP - [employer] 02/10/23 Load Manager Relationship Specialty Start Date End Date Josh Ochoa MD [address] [place] [address] PCP - General Family Medicine 06/17/23 Josh Ochoa MD [address] [place] [address] PCP - [employer] 02/10/23 Load Manager Relationship Specialty Start Date End Date Josh Ochoa MD [address] [place] [address] PCP - General Family Medicine 06/17/23 Josh Ochoa MD [address] [place] [address] PCP - [employer] 02/10/23 Dc Jackson, [facility] [address] [place] [address] Organizational Development Specialist Behavioral [facility] 05/26/24 Load Manager Relationship Specialty Start Date End Date Josh Ochoa MD [address] [place] [address] PCP - General Family Medicine 06/17/23 Josh Ochoa MD [address] [place] [address] PCP - [employer] 02/10/23 [facility] [address] [place], [place] [id number] [facility] Specialist [facility] 05/26/24 Load Manager Relationship Specialty Start Date End Date Josh Ochoa MD [address] [place] [address] PCP - General Family Medicine 06/17/23 Josh Ochoa MD [address] [place] [address] PCP - [employer] 02/10/23 Dc Jackson, [facility] [address] [place] [address] Organizational Development Specialist [facility] 05/26/24 Load Manager Relationship Specialty Start Date End Date Josh Ochoa MD [address] [place] [address] PCP - General Family Medicine 06/17/23 Josh Ochoa MD [address] [place] [address] PCP - [employer] 02/10/23 Dc Jackson, [facility] [address] [place] [address] Organizational Development Specialist Behavior[facility] 05/26/24 Load Manager Relationship Specialty Start Date End Date Josh Ochoa MD [address] [place] [address] PCP - General Family Medicine 06/17/23 Josh Ochoa MD [address] [place] [address] PCP - [employer] 02/10/23 Dc Jackson, [facility] [address] [place] [address] Organizational Development Specialist Behavioral [facility] 05/26/24 Load Manager Relationship Specialty Start Date End Date Josh Ochoa MD [address] [place] [address] PCP - General Family Medicine 06/17/23 Josh Ochoa MD [address] [place] [address] PCP - [employer] 02/10/23 Dc Jackson, [facility] [address] [place] [address] Organizational Development Specialist Behavior[facility] 05/26/24 Load Manager Relationship Specialty Start Date End Date Josh Ochoa MD [address] [place] [address] PCP - General Family Medicine 06/17/23 Josh Ochoa MD [address] [place] [address] PCP - [employer] 02/10/23 Dc Jackson, [facility] [address] [place] [address] Organizational Development Specialist Behavioral [facility] 05/26/24 Load Manager Relationship Specialty Start Date End Date Josh Ochoa MD [address] [place] [address] PCP - General Family Medicine 06/17/23 Josh Ochoa MD [address] [place] [address] PCP - [employer] 02/10/23 Dc Jackson [facility] [address] [place] [address] Organizational Development Specialist Behavioral [facility] 05/26/24 Load Manager Relationship Specialty Start Date End Date Josh Ochoa MD [address] [place] [address] PCP - General Family Medicine 06/17/23 Josh Ochoa MD [address] [place] [address] PCP - [employer] 02/10/23 Dc Jackson [facility] [address] [place] [address] Organizational Development Specialist Behavioral Health 05/26/24 Load Manager Relationship Specialty Start Date End Date Josh Ochoa MD [address] [place] [address] PCP - General Family Medicine 06/17/23 Josh Ochoa MD [address] [place] [address] PCP - [employer] 02/10/23 Dc Jackson [facility] [address] [place] [address] Organizational Development Specialist Behavioral Health 05/26/24 Load Manager Relationship Specialty Start Date End Date Josh Ochoa MD [address] [place] [address] PCP - General Family Medicine 06/17/23 oJsh Ochoa MD [address] [place] [address] PCP - [employer] 02/10/23 Dc Jackson, [facility] [address] [place] [address] Organizational Development Specialist Behavioral Health 05/26/24 Load Manager Relationship Specialty Start Date End Date Josh Ochoa MD PCP - General Family Medicine 08/01/16 Deja Martins [facility] Family Medicine 09/17/16 Load Manager Relationship Specialty Start Date End Date Josh Ochoa MD [address] [place] [address] PCP - General Family Medicine 06/17/23 Josh Ochoa MD [address] [place] [address] PCP - [employer] 02/10/23 Dc Jackson, [facility] [address] [place] [address] Organizational Development Specialist Behavioral Health 05/26/24 Load Manager Relationship Specialty Start Date End Date Josh Ochoa MD [address] [place] [address] PCP - General Family Medicine 09/10/24 Load Manager Relationship Specialty Start Date End Date Josh Ochoa MD [address] [place] [address] PCP - General Family Medicine 09/10/24 Load Manager Relationship Specialty Start Date End Date Josh Ochoa MD [address] [place] [address] PCP - General Family Medicine 06/17/23 Josh Ochoa MD [address] [place] [address] PCP - [employer] 02/10/23 Dc Jackson [facility] [address] [place] [address] Organizational Development Specialist Behavioral Health 05/26/24 Load Manager Relationship Specialty Start Date End Date Josh Ochoa MD [address] [place] [address] PCP - General Family Medicine 06/17/23 Josh Ochoa MD [address] [place] [address] PCP - [employer] 02/10/23 Dc Jackson [facility] [address] [place] [address] Organizational Development Specialist Behavioral [facility] 05/26/24 Load Manager Relationship Specialty Start Date End Date Josh Ochoa MD [address] [place] [address] PCP - General Family Medicine 06/17/23 Josh Ochoa MD [address] [place] [address] PCP - [employer] 02/10/23 Dc Jackson, [facility] [address] [place] [address] Organizational Development Specialist Behavioral Health 05/26/24 Load Manager Relationship Specialty Start Date End Date Josh Ochoa MD [address] [place] [address] PCP - General Family Medicine 09/10/24 Load Manager Relationship Specialty Start Date End Date Josh Ohcoa MD [address] [place] [address] PCP - General Family Medicine 09/10/24 Load Manager Relationship Specialty Start Date End Date Josh Ochoa MD [address] [place] [address] PCP - General Family Medicine 06/17/23 Josh Ochoa MD [address] [place] [address] PCP - [employer] 02/10/23 Dc Jackson, [facility] [address] [place] [address] Organizational Development Specialist Behavioral Health 05/26/24 Load Manager Relationship Specialty Start Date End Date Josh Ochoa MD [address] [place] [address] PCP - General Family Medicine 06/17/23 Josh Ochoa MD [address] [place] [address] PCP - [employer] 02/10/23 Dc Jackson, [facility] [address] [place] [address] Organizational Development Specialist Behavioral Health 05/26/24 Load Manager Relationship Specialty Start Date End Date Josh Ochoa MD [address] [place] [address] PCP - General Family Medicine 06/17/23 Josh Ochoa MD [address] [place] [address] PCP - [employer] 02/10/23 Dc Jackson, [facility] [address] [place] [address] Organizational Development Specialist Behavioral Health 05/26/24 Load Manager Relationship Specialty Start Date End Date Josh Ochoa MD [address] [place] [address] PCP - General Family Medicine 06/17/23 Josh Ochoa MD [address] [place] [address] PCP - [employer] 02/10/23 Dc Jackson [facility] [address] [place] [address] Organizational Development Specialist Behavioral Health 05/26/24 Load Manager Relationship Specialty Start Date End Date oJsh Ochoa MD [address] [place] [address] PCP - General Family Medicine 06/17/23 Josh Ochoa MD [address] [place] [address] PCP - [employer] 02/10/23 Dc Jackson, [facility] [address] [place] [address] Organizational Development Specialist Behavioral Health 05/26/24 Load Manager Relationship Specialty Start Date End Date Josh Ochoa MD [address] [place] [address] PCP - General Family Medicine 06/17/23 Josh Ochoa MD [address] [place] [address] PCP - [employer] 02/10/23 Dc Jackson, [facility] [address] [place] [address] Organizational Development Specialist Behavioral Health 05/26/24 Load Manager Relationship Specialty Start Date End Date Josh Ochoa MD [address] [place] [address] PCP - General Family [facility] 06/17/23 Josh Ochoa MD [address] [place] [address] PCP - [facility] 02/10/23 Dc Jackson, [facility] [address] [place] [address] [facility] 05/26/24 Load Manager Relationship Specialty Start Date End Date Josh Ochoa MD [address] [place] [address] PCP - [facility] 06/17/23 Josh Ochoa MD [address] [place] [address] [facility] 02/10/23 Dc Jackson, [facility] [address] [place] [address] [facility] 05/26/24 Goals (unrecognized section and content) Goals may [...] BE BASED ON THE PRIMARY CLINICAL RECORDS. [facility] [employer] [facility]. provides no warranty or guarantee of the accuracy or completeness of information in this document.
[2024-12-31 11:16] LABS: Alanine Aminotransferase 39 U/L (14-59); Albumin Globulin Ratio 1.1; Albumin Level 4.1 g/dL (3.4-5.0); Alkaline Phosphatase 61 U/L (46-116); Anion Gap 12.9; Aspartate Amino Transferase 24 U/L (15-37); Blood Urea Nitrogen 15.0 mg/dL (7.0-18.0); Calcium 9.7 mg/dL (8.5-10.1); Carbon Dioxide 27.3 mmol/L (21.0-32.0); Chloride 104 mmol/L (98-107); Estimated GFR (African America >60 (>=60 mL/min/1.73m^2); Estimated GFR (Non-African Ame >60 (>=60 mL/min/1.73m^2); Globulin 3.9 g/dL; Glucose 98 mg/dL (74-106); Potassium 4.2 mmol/L (3.5-5.1); Sodium 140 mmol/L (136-145); Total Protein 8.0 g/dL (6.4-8.2)
== END 2024-12-31 09:33 | disposition home or self-care (01) ==
PROVIDERS: PCP Family Medicine; Visit Provider Internal Medicine Interventional Cardiology
DX: E78.2 Mixed hyperlipidemia (principal); I25.10 Atherosclerotic heart disease of native coronary artery without angina pectoris
CPT/HCPCS: 36415; 80053; 82248

== ENCOUNTER 2024-12-31 09:38 | Outpatient (OUT) | payer MEDICARE, SELFPAY ==
--- OUTSIDE RECORDS SUMMARY | 2024-12-31 09:52 | XMS_ITS | CCD ---
Author Organization [facility] Care Team Providers Care Procurement Manager Name Role Phone CHONG CARRERO Admitting [...] Unavailable MD Josh Ochoa Primary Care Provider [phone] MD Marie Elias Attending Provider Josh Ochoa Primary Care Provider Suresh Martins CNPistina Unavailable MD Josh Ochoa Primary Care Provider [phone] MD Lee Chowdary Attending Provider [phone] JOSH OCHOA Attending Unavailable GABRIELA, DR [...] Unavailable Naderer Josh WARD Primary Care Provider Josh Ochoa Primary Care Provider Josh Ochoa MD Unavailable Josh Ochoa MD Primary Care Provider MD Josh Ochoa Primary Care Provider AsaMD fili Imad Attending Provider [phone] Asaad, Imad Attending Unavailable Asaad, Imad Admitting Unavailable Nadereerick, Josh Primary Care Unavailable Jackson [facility] Unavailable Josh Ochoa MD Primary [...] Unavailable JACKSON, DC L Attending Unavailable ARCEOLU SINGLETNO Attending Unavailable ARCE OLU W Attending Unavailable [...] Codeine; Translations: [CODEINE] Drug Allergy 04-24-[address] [facility] Repository (4 sources) Erythromycin; Translations: [ERYTHROMYCIN] Drug Allergy 04-24-20 05 [facility] Repository (9 sources) Penicillins; Translations: [PENICILLINS] Drug allergy (disorder) 04-24-[address] [facility] Repository (9 sources) Sulfonamides (Antibiotic); Translations: [SULFA (SULFONAMIDE ANTIBIOTICS)] Drug allergy (disorder) 04-24-[address] [facility] Repository (20 sources) Ciprofloxacin; Translations: [CIPROFLOXACIN] Drug Allergy 01-18-20 17 Unknown, [facility] (20 sources) Codeine Drug Allergy 04-24-20 05 Hives, Unknown [facility] (20 sources) Desonide; Translations: [DESONIDE] Drug Allergy 11-25-19 13 Other: See Comments [facility] Work Phone: (20 sources) Erythromycin Drug Allergy 04-24-20 05 Hives, Rash [facility] (20 sources) Latex; Translations: [latex] Propensity to adverse reactions 04-24-20 05 Itching, Anaphylaxis [facility] (20 sources) Penicillin V; Translations: [PENICILLIN V] Drug Allergy 04-24-20 05 [facility] (20 sources) Sulfonamides (Antibiotic) Propensity to adverse reactions 04-24-20 05 Hives, Unknown, Rash [facility] (3 sources) penicillAMINE Drug Allergy 01-01-20 22 shortness of breath [facility] (2 sources) Sulfamethoxazole / Trimethoprim Drug Allergy [facility] [employer] [facility] [employer] Other (2 sources) Sulfonamides (Antibiotic) Propensity to adverse reactions Unknown [facility] [employer] Other (5 sources) Adhesive Tape; Translations: [adhesive tape] Allergy to substance 04-24-20 19 Redness of Skin [facility] (20 sources) erythromycin base; Translations: [Erythromycin Base] Allergy to substance 11-25-19 13 [facility] (1 source) Desonide Drug Allergy 11-15-19 [facility] Repository (20 sources) Cod liver oil; Translations: [cod liver oil] Allergy to substance 09-07-19 [facility] (20 sources) Zinc Oxide; Translations: [zinc oxide] Drug Allergy 09-07-19 [facility] (20 sources) Desonide Allergy to substance 11-25-19 Unknown [facility] Healthcare Work Phone: (20 sources) Penicillins Drug Allergy 03-04-20 18 Rash [facility] Healthcare (20 sources) Wound Dressing Adhesive Drug Allergy 04-24-20 Unknown [facility] Healthcare (2 sources) Sulfamethoxazole; Translations: [sulfamethoxazole] Drug Allergy 01-01-20 [facility] (2 sources) Trimethoprim; Translations: [trimethoprim] Drug Allergy 01-01-20 [facility] (1 source) Codeine Drug Allergy 09-07-19 [facility] Repository (1 source) Desonide Drug Allergy 01-01-20 [facility] Repository (1 source) penicillAMINE Drug Allergy 01-01-20 [facility] Repository (1 source) Penicillins Drug allergy (disorder) 09-07-19 [facility] Repository (1 source) Sulfonamides (Antibiotic) Drug allergy (disorder) 09-07-19 23 [facility] Repository (9 sources) Prochlorperazine; Translations: [PROCHLORPERAZINE] Drug Allergy 04-13-20 Intolerance, GI intolerance [facility] (1 source) Adhesive agent; Translations: [ADHESIVE] Propensity to adverse reactions to drug (disorder) 04-24-20 [facility] Repository (1 source) sulfa drug; Translations: [sulfa drug] Propensity to adverse reactions to drug (disorder) [facility] Repository Medications Current Medications Medication Drug Class(es) [...] by mo uth once daily as needed aguhtfmhfl-SFXO-gtqtyygc 50-300-40 MG CAPS per capsule Take 1 capsule by mouth daily as needed 08/07/2024 Active Start: 07-27-2024 End: 08-26-2024 take 1 capsule by mouth every eight hours for headache hqfwmopgcv-hnyogrjziqofb-ozprkpqr (Fioricet) 50-300-40 MG capsule Indications: Intractable chronic migraine without aura and without status migrainosus (CMS/HCC) Take 1 capsule by mouth every 8 (eight) hours if needed for headaches 84 capsule 07/27/2024 08/26/2024 Active Start: 05-13-2024 take 1 capsule by mo uth every twenty-four hours as needed hltrgprfuj-cvgorjejvmrzx-dlehcfgr (Fioricet) 50-300-40 MG capsule Take 1 capsule by mouth Daily as needed 05/13/2024 Active Start: 11-20-2023 End: 02-18-2024 take 1 tablet by mouth every six hours Kbffhpzbep-Kpavlbixqwcmh-Rupn Active 1 TAB PO Every 6 hours January 08, 2024 12:00am Start: 06-06-2023 End: 07-06-2023 take 1 capsule by mouth every eight hours for headache qcbdqcvxuw-usyfnjiqvylss-ndhyjmgl (Fioricet) 50-300-40 MG capsule Indications: Migraine without [...] Start: 06-20-2023 take 1 capsule by mo [facility] in the morning atomoxetine (Strattera) 40 MG [...] mo ut once daily Cholecalciferol 1.25 MG (10513 UT) TABS Take 2 tablets by mouth [...] hyperglycemia, with long-term current use of insulin ([facility]) Use as directed 2 each 11 04/19/2023 [...] acid 180 mg oral capsule (4 sources) [place]-3 1000 MG CAPS Take 1 capsule by [...] gentamicin (Garamycin) 0.3 % ophthalmic solution Indications: [place] eye disease, unspecified laterality Administer 2 drops [...] Pump (Omnipod 5 G6 Pod, Gen 5,) [facility] 04/13/2023 05/11/2024 Discontinued Start: 04-13-2023 Insulin Dispos able Pump (Omnipod 5 G6 Pod, Gen 5,) [facility] 04/13/2023 Active Start: 04-13-2023 Insulin Dispos able Pump (Omnipod 5 G6 Pod, Gen 5,) [facility] 3 ml insulin glargine 100 unt/ml [...] 100 mg (5 mL), Intradermal, Once, On [facility] 10/22/24 at 0845, For 1 dose Start: 09-17-2024 End: 09-17-2024 lidocaine (Xylocaine) 2 % in jection 40 mg Start: 09-17-2024 End: 09-17-2024 40 mg (2 mL), Intradermal, O nce, On [facility] 09/17/24 at 0815, For 1 dose, Patient [...] Comment on above: Take 1 tablet by [facility] once daily. Manganese Sulfate POWD (4 sources) [...] Polyene Antifungal Start: 07-31-2022 nystatin (M ycostatin) 171910 UNIT/GM powder APPLY 1 application TO THE [...] Start: 06-02-2024 take 1 capsule by mo [facility] three times daily at bedtime pregabalin (Lyrica) [...] Start: 04-27-2019 take 1 capsule by mo [facility] three times daily Pregabalin (Lyrica) 50 mg Capsule Active 50 MG PO Three times daily April 27, 2019 1:00am take 1 capsule by mo [facility] every eight hours Lyrica 100 MG 1 [...] Comment on above: Take 1 capsule by [facility] once daily. tiZANidine 4 mg oral [...] Start: 04-28-2024 take 2 tablets by mo [facility] every eight hours as needed for muscle [...] daily. Active take 1 capsule by mo [facility] every twenty-four hours Effexor XR 75 MG [...] 1 TABLET BY MOUTH AT BEDTIME amylase 126188 unt / lipase 04566 unt / protease 750686 unt delayed release oral capsule (20 sources) Start: End: take 1 capsule by mouth three times daily ZENPEP 40,000-126,000- 168,000 unit cpDR Take 1 capsule by mouth three times daily. 0 09/18/2019 07/17/2022 Discontinued End: 05-11-2024 take 1 capsule by mouth in the morning, then take 1 capsule by mouth in the evening, then take 1 capsule by mouth at bedtime pancrelipase, Kkt-Opiv-Lgup, (Zenpep) 32925-820420 units capsule delayed-release particles capsule Take 1 capsule by mouth in the morning and 1 capsule in the evening and 1 capsule before bedtime. 05/11/2024 Discontinued Comment on above: Take 1 capsule by [facility] three times daily. Zenpep 40,000 unit-1 26,000 [...] Take 150 mg by mouth twice daily. Obiknq-Vfqbnxjb-Gj ylase (Zenpep) 40,000-126,000- 168,000 unit Capsule,Delayed Release(Dr/Ec) (3 sources) Start: 08-27-2022 End: 01-08-2024 take 41679-479356 capsules by mouth three times daily Toomvv-Xnjtlzfz-Dtlxxh e (Zenpep) 40,000-126,000- 168,000 unit Capsule,Delayed Release(Dr/Ec) Discontinued 1 CAP PO Three times daily August 27, 2022 12:00am January 08, 2024 10:21am with meals Start: 08-27-2022 take 10073-049763 ca psules by mouth three times daily Pabwqc-Swtgwdad-Vbupofd (Zenpep) 40,000-126,000- 168,000 unit Capsule,Delayed Release(Dr/Ec) Active [...] Onset: 06-26-2022 Episodic Other aftercare (3 sources) group home (current) use of oral hypoglycemic drugs; Translations: [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 USE ORAL HYPOGLYCEMIC DX] Onset: 04-02-2022 Episodic Other aftercare (2 sources) Long-term current use of insulin; Translations: [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] 06-20-2023 Episodic Other [...] 06-20-2023 12-11-2022 Chronic Other aftercare (3 sources) 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; Translations: [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 CURRENT USE OF INSULIN] Onset: 04-02-2022 Episodic Other aftercare (1 source) Other nursing home (current) drug therapy; Translations: [OTH 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 CURRENT DRUG THERAPY] Onset: 04-02-2022 Episodic Other aftercare (20 sources) Long-term current use of drug therapy; Translations: [Other nursing home (current) drug therapy] Onset: 08-10-2024 08-10-2024 Episodic [...] Employee Health Noteon 12-24 Employee Health Note [id number] [facility] [id number] 0 [id number] #[facility] Employee [facility] Noteon 12-10 Employee Health Note [id number] 57[facility] CNOVon 12-04-2024 CNOV Office Visit (NHDBEC) JACQUELYN ZENG ([id number]) 1975 F Date Time Provider Department 12/04/24 9:00 AM KINGA MENDES [facility] During your visit today, we recorded the following information about you: Temperature Pulse Respiration Blood pressure 97.5 degrees 98/minute 21/minute 116/71 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, RASHAD.CABLE BRAIDER 12/04/2024 9:16 AM Signed [facility] Follow-up [...] for migraine Informed Consent Consent Obtained: Written [place] Protocol A moment to CARE was completed [...] collected. 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 Normal [facility] Refillon 12-04-2024 Refill [id number] Jacquelyn Zeng 1975 F Date Provider Department Center 12/04/2024 JOSE FRANCISCO PHAM [facility] ENDOCR [facility] Family History Problem Relation Age of Onset Coronary artery disease Mother Heart attack Mother Cancer Mother Heart attack Father 54 Family Status - Relation Status Age at Mother Father Reason for Visit and Comments: Med Refill [[id number]] Normal [facility] Coding Summaryon 11-11-2024 Coding Summary HTMLBase 64 HhextzrqPNy6sZi+PGhl YWQ+JS7ISLDeL92isJBz uL1mU7AKNFfHVdccZPJL ZUwLYbPxhmWzRA6wxRVm ZXJu IC8+FW2uBYKxGwpsaLPd g7U3gSF3L23ymt0dKVeb lWR9KMScHjZhhvfex5zc xRv0VIwvAvlfLdOr HZPdoO94ZRM4jC12By06 tGZzlIJjs5qeyJl9WiZu GIZgVLL6aRalYIjsu0Cj XMSoD55awXKls4P3 IGNvbGxhcHNlOyBlbXB0 yF0mPJhclhatc8ndujzr Tqn3qh08nHMur0D7fFU6 X1NqazZ6HWRwpHRx CugmsFHRqD3vhjvti1gt ylelFeSjQCSfLZt5KVp0 KOYxeXbdZxFnEQ77YHJ2 LKSccoIxH6QeDVUh iZtlEtK5s0Q6Wx7MQ0YO XvbgX0ULJPSGMTbhgSF+ YJ79pq99P2ArPomoEhc9 XUDvFYX8fVT4zZ9q WQSoEUlmy4F4dML7R2Jo xhGeqx0ek7ehJUKqIOrn W57jxXKim1B7VRLvyZI4 HUWvsWhaCsPtcJ64 Oyc+PUFyvHyrj7NhWnan k7xqk3izbXc8EzstZMYg ucEbsTazZDD6v6YbEw5b NMYskRZ8vYN9dH0x XgFhDkV6NHamV464HqIf hUMnTjtsD08uH1XbrMR+ TLGgPsj5HTJggCwbFZ7j Z1IpYSJwiqeveYWa gWgjPK2zVDVsxzqdIWHq tK8kUFCvW2j9GiPxRoV1 WSvxA5UkNHBjxuvsTw29 xM0wZmFxNdO1TDmz A4ZcbqW4WNBbuKOoBNew NFP0E84jl2C8GJLjSYIz DAM8uLZ2nH2mnMzbbkmy bGVmdDsgdmVydGlj OMyuWRmuH173HDDatWyj PkNvZGluZyBEYXRlOiAg MDcvMDIvMjAyNTwvdGQ+ YSNxQZH0vCkoZAFi uGEiJNztHg8yhZxgcLfa LZ4eXIAxebgrTDEakS8f CNEefWDrjZzwZM0zKMTg uxrda506MmGdPON7 ATLbqMJjM4KqhP4kJqGp KQLiWPEmZ5EvwVJtTRev E978HTyxKnG0SQBcnbSw Q3JrODZuxYyeXzH3 n7Y7Hc2Rt4RsealuJ1Pj pHYlYaYuFpqvGEk3D9Fg PjwvdHI+YT10IVMdRX08 QLy7UMM2gLixPFoh KZFjI9QslM2uKhQhCMMi ZGRkOyc+PHRhYmxlIHdp ZHRoPScxMDAlJyBzdHls ZY4oBt0iHTFgTHLv eIgkkPWbMbTjs4czPQZj NWocQV3oeAdjC2PayYJ5 VUDeo5d0Zo98K21qX5Ld dXA+AWKaeLH6bNP6 oV1uDuJdSiJ5LSdmU868 TrNsjQTdJagzd0ueg5yt zDq8PlG7CVAspxUngXyh ZVX5e4QtAx26V59c IHdpZHRoPSIxNSUiIHZh lUyvys3yaN0aFo9+PGNv iTT9rQD8cP4sGbCkJoG7 SMjsA078JmNnsXHa Getwf4lru2xnbWh9ZuBq TRNmdgOigUriCAP5u0Bs Lb66P9CcaVige4CoKue2 qd67pEZco4G2gVN3 P0VjKFWykvxmdQApbKxw EM5dEJZjxlebBPCdgI1t PVOpD5d5RmZkVwN4QIfv S7KejhG5CSLlxEIr ZVXopZPHwX5zlyqdo3iy rwbvDoXcSGFuZOu0BAa4 KSRczRnlElBkFWH2HgU7 OVF2iPSqtM0auJlj brjygD7fFyr+STU3gZFx tDBTPH3xUmmbwPV+PHRk HLF8mXqrLFutGLBhdE9i OXIqE9q6OiHxIpX1 LEsaO9OwtdO9ETSmfFOb AHNgeCRGkZ8pasunc1mq xmjuMkVuUWBlGLo5BRn5 LWFsaWduOiBsZWZ0 CiU1KQW7lBVapT6lwEft izfkzL3qAvh+QmlydGgg JCH6BTl2R8KsHuz4GDGq oGdjAG0adNBoKMzh Vs7glLvotOjnBB7iBLRf vyklt010HxFyc2pvBGNu lOMtAUtsVKT4F47ut1F4 ZAJhZCStOUX1kHH6 dC9lyKpmaizvhEVhoBsf jkVbwVisVPjiNDniF121 WZIcvPtoEdRiMLa1V2Nk Lrk3DLVyhOskCM5u wWDuLVzlDu4zlRgsbMuk OZ1mHJNvausyx195VsCb n4qgSUBwrZFzSHmsKDW3 L65iq6X2JDYrPGKs PTE9rLG0iA4ozHddphkk bGVmdDsgdmVydGljYWwt UGqfT121FZNteKcxNxKo hDs4B4FhDgj3QKQa sZavYA9wgWSsSFfdAx0x lEmucVpqJA6qQMPjezsu m067EyGzd0znCMDkgBSd CDpjGDY1E55tk3T6 LQKvZOVwLRI9kXH4hD5o bGlnbjogbGVmdDsgdmVy sDbtFVneUFxxF051QXGw cDsnPlBhdGllbnQg PUodTYx3E3ZtSvlzrDS+ RP04ITWzJC98tQTbbPKe s2cqrYx8JzGaCLXrNWN9 iUupIEblb9BdJRPi P18xuJMkw4C1OZAerGbu jXSuQzEsrQL6uF5bAJbh edubc5nsibpnPytqb5sy bt07xT33O82rTVwx ZHRoPSIzMCUiIHZhbGln fe2ouV4yPg2+PGNvbCB3 sVR0nF7qTKYmEvX7PGoz J456AqHayUIrQwsw l6ici6mrfEu4NrN7JXMq asJpyCnhVMY4p1ZbAa43 Q48wNUodMKFcLEGbGCCd OBThyZqrnf0azE1f Ii8+HEQhiUI1dTU9wH6e GcKgNyG6WNjoV455TjKy aCGqUzbpC35uB3TmfGW+ YEPvZpd8YUNtrImg WM5gkLOxGStuIv2mPBB4 OfXeBaIcIYknR5UoUHIo omazsjnymTZ6FCMaUVNu lT93Vs1jhFkkWPGn wGWBlA8fyuvxl4kpvzdb ErAfNSEbLAf9NFv7BHXc gPzwLnAqLCD5ZlR3FLI0 fXFjpI9ebDdeesbe aO5zK2MrBPNealauVv72 aS2iNhOgYmY4JVnbEqm+ BG7PUT2ZBFUZZLpkZGRI KAR8H5BtBca0CRNa vNllRF6boCHqLAedEr0p bQpkgWesUQ4jAOTrwqfi LIDfuY3vLPAqpDDmdDji RI5lBANnjrdse935 HuVmNBN8XNPooBUqZ5He hT4bCdOwGPTmDHCjM7Yd bTXfASpfD720CFbjTvF3 ZSLgrhYjN1LiEXJv dPdkYyB0x4R1Ia7yCH3f QG0hTUo5CW54ET35hKYh y8H6pUK3Y6KbQVTyxufn lpfrmVR1XMAhQPWo cR76iUZbDIypKo3ha4Y5 g043BSXyUEZmyQ42Gk9a bLivAHIrhUIVoL2amdqi x3zttuieKbZuONKn EPe4UAb2SVPffOkjRpOj EST7CxM2MXH9zDCjoK5d xKwyqlslbP7wXlf+NTAg KYFgsfR3O7HrHfu4 BTZusDhjOB8urOUpUNzz Ff7swBysbGxbAD1lCKQo cbnpJAKeaB0bNZOtsYQo mUrlOG7gEGGubfon s178UsLhHVA5VJEblFVu E9RysC8yZfSqKSFuNLMa F9UhrGKqQKahM435EBkk XuN3RFDcxyVdA6Mp DPYqcImdClZ5k9C5Vg7Z BJ0HWGX8K0JwHky8LHWx fThpQZ4hoYGdWXceXt9f mXjkkNbmLX5oJLKf rjxwIRFryO6gFLStaLRv sNqoEY7tLQSldzcph479 TjSpTEC2OIFuvRZiV9Ke xZ3oXnCdGUIoJVZi O6QaoXKaGRtcB478YJil TrB6DIQhiqPlQ1XkSOKg eYpsNzZ9a6N1Zn5KWCzs dGQ+TP71dg19F6Un EnskCwg4VEZmJMO9oNT2 iG2kJGIzIOxyo3N4xDH0 G7KhcnZiwl2ci6lyAFCn WIgsF62roPYwr9I2 MLSkzXJ7HZFhoGxuBrLw mD02Vza+HKRftYbie4Pb Ekcfz3maw6xlfAw2CfRs JSIgdmFsaWduPSJ0 o4LsJq06M85eDTewFYUu HCYeTOEpLVGrwBiblp0s xL5gPi7+EYJzmOO7yCF8 oV4gKvFdUaC9WItj E411EoRoiRKcVwfic3ve g0zrcFp1PfQwTXDoaaQi cFnwBRZ8l7FsCt09O4Tn tVyed2BnNtf3ue70 uQXgl2T8rBL2B3HsQJOh ltzvvNLnzTtcVO2iDLSi vcxaDBVeoK9yGCTcM9w1 RiNjAhA0IVkgH8Qc wvZ9KUTyeXHvLKWxbZUI qE7odnxqp5fougmrSyAo SPLeUZq8CSk8XJBcgFoe ScJtKWO2UvT7UPA8 tSYgeQ9uaQwsrhuuuS1f Oyc+KHl3w9xzrGSyQU4l pPY5BR82YY17kIJgo7E7 dKI6J2DdQEErfdjx itemvFQ7FOXrGSKhcX62 Wg2ipBwyVh4jPTBbQUP2 QLRwkWKaM3RdjR9sVwSq YSObHSDtV2NhqVBp DWohJ596JSolMzX1OQSc qvYjQ6RhMQDpcOayNoK0 x5L7Mx9PVE75KY47PI85 iQUgv5W2cJP7I1Xi GDIeuuwbtzubeBN5LLDi RAEayU35As7xvFcsBs4c LVZlLMC5BIOzuAGlT0Kf rV0aZqMrHGDxGNZn K3KznYHcHYqqW404BLkb DmZ2RADtpvPzJ4PdBNTc nUvdXoZ8r3N2Mk3UXn97 HF61DF24dLJhn7M6 nHG6O7BzKZLmnzdxosgq vQM9IAErSSUiwF78He1m vPqdFu3iXHRnNEH6YZFa wIXyK4RioS8lNrEu HCXsMUWxD2ChzEMrEKby F282OZkvPdK1QGXvxhOa B4GgAXOxuCnlDxQ6c7E9 Bt6MBCbmpdo4E7Fx PjwvdHI+XK16SULsNS64 yIBjdCXmr0rynGv4WjPb HTEqAFA8vPrxIVwlz4Pk QDTtZ24tyWZcq7F1 IGN (more content not included)... [facility] Employee Health Noteon 11-11 Employee Health Note [id number] [facility] 11-05 Employee Health Note [id number]# 1.[facility] FLUORO FOR SURGICAL PROCEDUR ESon 10-08-2024 Radiology exam is complete. No Radiologist dictation. Please follow up with ordering provider. Final result Deny Patino, - 10/08/2024 Radiology exam is complete. No Radiologist dictation. Please follow up with ordering provider. Final result [facility] FLU[employer]O FOR SURGICAL PROCEDURES Radiology exam is complete. No Radiologist dictation. Please follow up with ordering provider. Final result Normal [facility] Radiology Study observation (narrative) [facility] FLUORO FOR SURGICAL PROCEDUR ESOrdered By: Radiologist Radiology on 10-08-2024 [facility] [employer] Work Phone: Guidance-- during surgeryon 10-08-2024 Radiology exam is complete. No Radiologist dictation. Please follow up with ordering provider. [facility] Employee Health Noteon 10-04 Employee Health Note [id number] 7[facility] Note [id number] 7#[facility] Health Note [id number] #[facility] Employee Health Note [id number] #1.[facility] Employee Health Note [id number] #1.[facility] Employee Health Note [id number] #[address] [place] [address] 36on 09-28-2024 36 Her event monitor showed episodes of atrial flutter. Please have her stop aspirin, continue clopidogrel, start Eliquis 5 mg twice daily. Please have her see Farzad Costa to review options for management. Normal [facility] Telephoneon 09-28-2024 Telephone [id number] Jacquelyn Zeng 1975 F Date Provider Department [place] 09/28/2024 JULIANA CAAL [facility] Family History Problem Relation Age of Onset Coronary artery disease Mother Heart attack Mother Cancer Mother Heart attack Father 54 Family Status - Relation Status Age at Mother Father Normal [facility] Employee Health Noteon 09-24 Employee Health Note [id number] [facility] 09-22 Employee Health Note [id number] [facility] Follow-Upon 09-22-2024 Follow-Up [id number] Jacquelyn Zeng 1975 Date [facility] Department Center 09/22/2024 JOSE FRANCISCO PHAM [facility] ENDOCR [facility] Family History Problem Relation Age of Onset Coronary artery disease Mother Heart attack Mother Cancer Mother Heart attack Father 54 Family Status - Relation Status Age at Mother Father Level of Service:34466 [place] OFFICE/OUTPATIENT ESTABLISHED LOW MDM 20 MIN Normal [facility] Employee Health Noteon 09-18 Employee Health Note [id number]# 1.00[facility] No Panel InformationOrdered By: Radiologist Radiology on 09-16-2024 [facility] [employer] Work Phone: No Panel Informationon 09-16 Radiology Study observation (narrative) [facility] [employer] XR CERVICAL SPINE (4-5 VIEWS )on 09-16-2024 [...] by: Kirby White MD 09/22/24 Final result [facility] Radiology, Radiologist, MD - 09/22/2024 EXAMINATION: 5 [...] by: Kirby White MD 09/22/24 Final result [facility] CERVICAL SPINE (4-5 VIEWS) EXAMINATION: 5 XRAY [...] Kirby White MD 09/22/24 Final result Normal [facility] XR LUMBAR SPINE (MIN 4 VIEWS [...] by: Kirby White MD 09/22/24 Final result [facility] Radiology, Radiologist, MD - 09/22/2024 EXAMINATION: 5 [...] by: Kirby White MD 09/22/24 Final result [facility] XR LUMBAR SPINE (MIN 4 VIEWS) EXAMINATION: [...] Kirby White MD 09/22/24 Final result Normal [facility] XR SHOULDER LEFT (MIN 2 VIEW [...] by: Del Melton MD 09/22/24 Final result [facility] XR SHOULDER LEFT (MIN 2 VIEWS) EXAMINATION: [...] Del Melton MD 09/22/24 Final result Normal [facility] Radiology Study observation (narrative) [facility] [employer] XR SHOULDER LEFT (MIN 2 VIEW S)Ordered By: Radiologist Radiology [facility]: Employee Health Noteon 09-15 Employee Health Note [id number] #1.00[facility] 09-11-2024 [facility] Office Visit (INDBEC) JACQUELYN ZENG ([id number]) 1975 F Date Time Provider Department 09/11/24 11:30 AM KINGA MENDES [facility] During your visit today, we recorded the following information about you: Pulse Blood pressure 100/minute 121/68 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 APRN.CABLE BRAIDER 09/11/2024 12:02 PM Signed [facility] Follow[facility] [...] for migraine Informed Consent Consent Obtained: Written [place] Protocol A moment to CARE was completed [...] collected. 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 Normal [facility] Coding Summaryon 09-01-2024 Coding Summary HTMLBase 64 HafuskkwKTo5cKk+PGhl YWQ+ZI9IRUCpW37nuPJp mD7yI3HTWJcDDexdPQGI KEvVKxMdboLvTD1mdOOd ZXJu IC8+YK1sHUMzUnmhgNRw k1L6jQL0Q11gad0hGDvg tND7ACJaTlTcguqjg2zg vWw9BQbmZzvyVrTa ERWwiH72NVR9yF98Nk02 qFCnkTGkz5yavVf7MvIg QGEuTBL9xWaySGthq5Sq EZQdP15dhTOpm0Q4 IGNvbGxhcHNlOyBlbXB0 pR6nLZejtzdwk7nhvipi Oiz7mm89zZVrf8E5aFC7 N9TwjnV0NLQhmTIw GfgxkBJJlW9nogerg6iv drtaBsHfEKAzOMt9VRb0 YFClrAbsPcWmXV80HUT2 RTSzapEqN9CcHDFj bFtqUbZ4t7Q7Rt5TD7UC DbeyL7BTBSDNVMwojHZ+ BE61ky03G4PpUmnbKmn0 MDCcRCG0tRL4hD5g JSOrQJgzo2C8iKS5K9Jm tzDejh1ce1vbQQDqYSrb G95lqJAmw4U4OGPnxKS9 OZGkxSqgJhBsjM08 Oyc+DXFhjZfpp7ImHxfk o3idn7yzcNy3XfprEPAd jmSehOvpYQM5l5RpXs6j XAWdsTT3cLG5iG6f HvVlAbR3WNwfR694EiZw dSVbSpxiY68fZ7DolQB+ APQfTjh9WPUrnDegHC4t H9XtICNbbyrfnMYz bJbuGD0wJFIebklfECKo uK6dNBQpY8k3XeUlLjT7 DWxzI2LrMGZkrstqNa34 rC9tJzEzSpT5QJwf Z0FdmeL0OBVxsLYdTLdm KSV6T64to9V1SUQeUARh NLW1jAY6yU7oxIkfnsai bGVmdDsgdmVydGlj NHsqIBbvR139MVBsoYvc PkNvZGluZyBEYXRlOiAg MDQvMjIvMjAyNTwvdGQ+ ROHqQHO8nVmiFXYf vETeQAazIr8roCcaoKuk VP8kPXItwuwfBSFuzA4f VCJjiCWlxBvlYX1sEBWt dgbqj809JtEdGIF8 TBRnaJGyM9IijY4dAlTn UDNgPCSyT6XhuPJxUDdz R095FYrtYbS1ZDDzfzHd X3CwZZWlsBstQjQ9 u7B9Ch4Sf5XtgsnxM3Nh lMXmCtFkKaedUKi9X0Pe PjwvdHI+ON38EKTpSL45 JCk2DQS7gTqqIGsy XOIaZ1DcdO6aLuSrACPw ZGRkOyc+PHRhYmxlIHdp ZHRoPScxMDAlJyBzdHls AA7gBv9lNXTvQLWm fDlloCYfOkWtm1vfQFVb WUadJN9vvZctZ4WmhKJ7 ZEMzi1q6Hr53Z68wO4Ds dXA+HQEmoVF7oJD7 iJ7iPgMdNcF1BPxbG884 QqLsmMHrSvuip5zrm1io rZi4MsF4DAPrbwJezHco RQK9j0GuBf49K06k IHdpZHRoPSIxNSUiIHZh jJuztt1dcI0mTv1+PGNv eUA0yMK2eX5tWzSkIzM1 AWwaQ330AwDdnIPm Qkndm6cep4pqiIv4UkTs VYJbtpFmwWpfEAR0c9Kt Rp20O4LewUefs4XyFao5 ft75vJLzz2G1nZW4 N1PnFCBzwzxmzIKvzTyk VV8eHNZfisnqOERecC4s XHXyE7t4DgMhQtP1OUwr C6XecrG4FQOzeRWo ORGkoSQUoU6ceqgjc9tv rexgPyVuQHAtMVb0IYa2 DMZmgAvbEyEcRVI8FcN4 XEX7jFKswB5vwYkm nosxlX2pPro+AVF5pDWp vIMRLS8sTrekhIX+PHRk HNQ9hLdgMUrmPKRgcQ7m YCIyM0q6RpCoKwA5 EAwtQ0ZmcnE9IAAanGFv WWIxsCGKlI4utaioa8rc olubVlMoYDRwYGq0SGs3 LWFsaWduOiBsZWZ0 AhD0KLQ4nPGdjI9ozWfu dtvefR8xGtt+QmlydGgg CGN4KXk6I0CySnn3QWHh uBxjGE7flDVzHRuy Ku1yfBoyvEevSQ6nORLl luzlo774IkIvc0oyXJRj pLDwIUeiTQG7S71qs0C4 ZMJgGCQcTSK6zPA8 yB2peGqorynqyTQagMjn wtYlcVeiLZmyBOysC128 YLHjiKrbQcFdNAo6T3Iu Usm3QMBjcPohLB0v fIFeLJtnVi8trWeznTsh UZ7iBDLtdlkuk115ZuMj j3qcIYKooEDdEKaxVHM0 I09bz7J8CCRiLSCm TLY0sFE4lZ9lvJwgupsi bGVmdDsgdmVydGljYWwt CBcbO517GCXnoXevTeFx uVz0S5UoLsf2GSIe yVoiWU9kwSGqZXzgDw4r kMtnbZldEW8cBDCsbdqv a092KzMaj8ydYVGmxGOs RRjvALR6H41rp5A4 DUViTYHmYLL2tPQ7tK3e bGlnbjogbGVmdDsgdmVy iLcfQZmgIEyuU469PLCe cDsnPlBhdGllbnQg FDgvOPu9K2WrRzegdKU+ GP24RXWmBF23zCHpwOZt v4cluRl3WlKfZQJkLAE6 eCfvGAadk2XiVZGn D98ckTRyi9Q5VYPyxTdh eWWmMlMekZC5lC2bTXmo epueb3llsrxlHgvru4od rq19eS03P17yUWwg ZHRoPSIzMCUiIHZhbGln ct3blF5yPl2+PGNvbCB3 gEG1yL6pEIVwQvC5LFly T257BfIbuQBlZtkj i2djw8zliXn7HhK1LVIl hwVitSzdOTY1u1JqVj00 X02nOCeyWAHeRCWuISMl PZPenGrqlt3veX2f Ii8+ONLosPE0gMJ9fI6p ErOcJvZ0WWrnI289CdSx mFNoSdqcG23jP9KkyAG+ NEMuInz1EYKbtTuv EV9llLOjSSbwDk9hHAP6 MuRzFvKkHQvgM3PdASSm jbiwujsskLR5BRYkURQq tC10Hy9sdTiwEMMq xPOWaT5soehem9wfbfki TeVqZWQcBFj0NZn4USMb tHbcYrWjUYD5SfI2ZZT2 vKVofO4ltVtswups eY3yL4CpEGYpiaqmCo64 yR4oUwFvWzD3JIoaPqt+ EV6VAO6LTLRXMOinMCUG FUK9V6MyEhb1FBDb fRzpEZ5vlCRkLZpyAr8g rYkvjZimGE9lAMIzhitu BCUzyH6cWREvaUWwuXhw AG6rKGWwjmiqj794 UcMbYCH9KKJaiVXdM8No gX2nZbOmSJHrZLKeV3Ey dMBcWIdaY979JFhlFoE6 KLTlawCgE9VgDDYt dEqdXvM6b3E5Pb1eWM7o HH5oEXt0RD49CJ55mOKp y8F9iFA5K3BbUMVljdsa pmzsrIV9XRLxMCGq yS54yUXzAIygBa2sn6R9 b866SDSrZWSlhE92Lo8z tQnkJVYhcZMJiV9usgpl o8xbmwzmPpObQRVp HZf8KMi3GNZulBlrVkFf GWZ8NiE8ZXL8tPOjaV7f tTwfmgduhU7oTel+NTAg EYCcpzS9N1NvTsv8 YFPveBzdBD6euHRdVTlo Hn8njNhfkEjlAP7eTGGh ryrrEBJzzI7rQDMeuGBl rLpeJG3sAUTdiywx j586GaUnYQA2ZADprVDz S2EmvC1mTfRtLFVuKFBq N4YycACjXKhiS953OJlf HvU0QGSqwvXgP4Rr UTNliOhdEzS4w9X6Yv1T SY9BKSK1I6VoPli8LDSr bOkbTF9ufFJxHIxbIt7l hRkguHljDM6lSQDp fycrMCVimC6wLLAbkVCt qHduVD9wTAKsqzcyc801 KvRaLGA2AVRtkOFmQ2Rv aM3eCiMtLEFeEFYa P4UtaIAoDRbkD148LMfj DnO1FPQvvfKaW0VaERKg cTmaWbI8c9E5Ab0PFLjp dGQ+VR60fw91Q3Nc DiwoEwv0TDTgHEI3zAT7 lY7iTLCoZEcdu5S7oPQ7 H1LbcyVcoe2gb1sbBAKq UCliX49stVTgw0U0 LEYfjYG6STMlpUagCgMh pK40Tum+SARsnPoic7Bn Bwikg6hkz2tqbTp9PyNa JSIgdmFsaWduPSJ0 k3UlIw21G75eZOglPMEn RAXzEZCpBRJpkGxhxl1q aH4kEp0+UHJtkHV0lTQ2 iC5aIbGbYjW7WOnb E121IgSybZTeKscyj1ya w8rflEr5McYmQKKigdEq oFvgJSQ6m5RwSj60P3Lx oTduu4EjCde3fq72 hVCsc1S4kGU2U8LmETCt eblwyBYkqGdlWT1uKOPq pycpXTUrdB8jHKWxI9p1 PkFyOjV3GUdaB5Jy yoG4EDPkkYDlWMDzeVDF zW0htosuk8dftcqzRnBc HDFkJKy1EPq0DPHvbCdf TgAeZZG9CmB1MMX4 gWLzmP0bqOcopurgfM9z Oyc+BTn5e1ttfWYiVF5j sYL5AW31WQ43yPOwt7U0 lGJ7G4OpOIFvpupe uxlfvDQ6BZFmDPFltT25 Qy8rcKjtCi5fETZcEEL0 KGXrnNZjW6QjpU8lIoCe ZGTjJKTkE0QmwVHv RToyD694UJivIxD1BRLg bvLuU7QvIWOhtUrpViK3 r6I1Ix0ZCI33FU15XU44 oISid1Z1lIR7T4Wi CVVsgiczhmeprZQ8PBEh UNFiiK31Yd5jzEcuYu2b NHQeNIT0NOGdcMAuL8Qa pQ7uRhJqYVDcEACp P3RfwROsHMgsM978HZbl HpI1UUOjedVzC2NtAQXp mIeaTwO4p3S0Rc3JSn29 MP09SG89eIGzu9S6 vKJ5S8WwKLHqpsqbhjou xOX8KVBlZZGjkT05Xt3w yMhxEg2zKXQxHZZ5TRTa eDRwM5NklT2jFwFi WHPwBWBqC3OmeILbNKjc P670FXsdUkE1BOShxkYb S2LiSMRnpZpiJfL9l5Y3 Ci1XNUbaenq9O9Ok PjwvdHI+AN36UGVzXB02 qWCgfOJzg6ehmRz9ZzIq RYFeZFQ8hTqhYHgll3Bc JGVyA37rbBRnq1X9 IGN (more content not included)... [facility] Employee Health Noteon 09-01 Employee Health Note [id number] 64#1.00OTGTIFF [facility] Employee Health Note 104.170.. 0 [id number] 00#1.00OTGTIFF [facility] Employee Health Note [id number] 0 [id number] 39#1.00OTGTIFF [facility] Employee Health Note [id number] 0 [id number] 83#1.00OTGTIFF [facility] Employee Health Noteon 08-27 Employee Health Note [id number] 0 [id number] #1.00OTGTIFF [facility] Employee Health Note [id number] #1.00OTGTIFF [facility] Employee Health Note [id number] 0 [id number] [facility]2024 Follow-up visit [id number] Jacquelyn Zeng 1975 F Date Provider Department [facility] Family History Problem Relation Age of Onset Coronary artery disease Mother Heart attack Mother Cancer Mother Heart attack Father 54 Family Status - Relation Status Age at Mother Father Level of Service:73638 [place] OFFICE/OUTPATIENT ESTABLISHED MOD MDM 30 MIN Normal [facility] IGP,APTIMA HPV,AGE GDLNon AGE GDLN ACOG TESTING Note . [facility] Comment on above: TESTS RESULT FLAG UN ITS REF RANGE LAB Clinician Provided Cytology Information Source.............Cervix;Endocervix No. of containers..01 ThinPrep Vial Age Algo ACOG Kayla... 30-65 01 FLAG LEGEND: L-Low Normal,H-High Normal,LL-Alert Low,HH-Alert High <-Panic Low,>-Panic High,A-Abnormal,AA-Critical Abnormal Performed at: 01 =[address] [place] [address] Elsy Johnson MD, HPV APTIMA Negative Negative [facility] Comment on above: This nucleic acid am plification test detects fourteen high- risk HPV types (16,18,31,33,35,39,45,51,52,56,58,59,66,68) without differentiation. Performed at: =[address] [id number] Meeting Coordinator: Elsy Johnson MD, Phone: [phone] Performed at: [address] [id number] Meeting Coordinator: Elsy Johnson MD, Phone: [phone] IGP, APTIMA HPV, RFX 16/18,45 Note . [facility] Comment on above: TESTS RESULT FLAG UN ITS REF RANGE LAB DIAGNOSIS: 02 NEGATIVE FOR INTRAEPITHELIAL LESION OR MALIGNANCY. CELLULAR CHANGES ASSOCIATED WITH ATROPHY ARE PRESENT. Specimen adequacy: 02 Satisfactory for evaluation. Endocervical component may not be distinguished in cases of atrophy. Performed by: Kilo Perez, Manager Packaging (ASCP) . 02 Note: Note 02 The Pap smear is a screening test designed to aid in the detection of premalignant and malignant conditions of the uterine cervix. It is not a diagnostic procedure and should not be used as the sole means of detecting cervical cancer. Both false-positive and false-negative reports do occur. Test Methodology: Note 02 The Availink Prep(R) Steam Blocker was unable to read this specimen. Therefore a manual review was performed. FLAG LEGEND: L-Low Normal,H-High Normal,LL-Alert Low,HH-Alert High <-Panic Low,>-Panic High,A-Abnormal,AA-Critical Abnormal Performed at: [address] [address] Elsy Johnson MD, HPV Genotype Reflex Note 02 Criteria not met, HPV Genotype not performed. Criteria not met, HPV Genotype not performed. BRUSH[facility]SP[facility] Tele[facility] ([facility] JACQUELYN ZENG ([id number]) 1975 F Date Time Provider Department 06/29/24 KINGA MENDES [facility] During your visit today, we recorded the following information about you: Will Medina, RN 06/29/2024 8:20 AM Signed Botox referral sent to pharmacy Boris CHILDRESS, RN RN Clinical Clerk Cashier [facility] [place] 07/22/2024 3:16 PM Signed [facility] C9 for Botox signed and faxed to [facility] Form scanned to chart Allergies As of [...] lotion ammonium lactate 12 % lotion - eMaginUCH ULTRA BLUE TEST STRIP test strip use [...] 3 ML 25 X 5/8 use with [facility] Facility-Administere d Medications as of 07/22/2024 - onabotulinum toxin type A 200 Units injection (BOTOX) Problem List As Of Date 06/29/2024 Noted Resolved Migraine without aura, without mention of intra*04/24/2005 08/01/2016 CHRON OBST ASTHMA UNSPECIFIED [J44.89] 04/24/2005 Bilateral occipital neuralgia [M54.81] 11/07/2016 Status migrainosus [G43.901] 04/08/2024 Encounter Status:Closed by WILL MEDINA on 06/29/24 Normal [facility] Documentationon 06-25-2024 Documentation [id number] Jacquelyn Zeng 1975 F Date Provider Department Center 06/25/2024 JOSE FRANCISCO PHAM [facility] ENDOCR [facility] Family History Problem Relation Age of Onset Coronary artery disease Mother Heart attack Mother Cancer Mother Heart attack Father 54 Family Status - Relation Status Age at Mother Father Reason for Visit and Comments: Diabetes Mellitus [183] - CGM Normal [facility] Follow-Upon 06-23-2024 Follow-Up [id number] Jacquelyn Zeng 1975 F Date Provider Department Center 06/23/2024 JOSE FRANCISCO PHAM [facility] ENDOCR [facility] Family History Problem Relation Age of Onset Coronary artery disease Mother Heart attack Mother Cancer Mother Heart attack Father 54 Family Status - Relation Status Age at Mother Father Level of Service:03416 [place] OFFICE/OUTPATIENT ESTABLISHED MOD MDM 30 MIN Reason for Visit and Comments: Diabetes Mellitus [183] - DM follow up Normal [facility] CNOVon 04-14-2024 CNOV Office Visit (NHMNS2) JACQUELYN ZENG ([id number]) 1975 F Date Time Provider Department 04/14/24 1:00 PM MARILYNN LUA [facility] During your visit today, we recorded the [...] spontaneous and fluent without dysarthria. 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 Attention span and concentration are excellent. Cranial Nerves: VII-face is symmetric without evidence of weakness. VIII-hearing intact. Assessment: (G43.901) Status migraino (more content not included)... Normal [facility] CNOV Office Visit (NIQ) JACQUELYN ZENG ([id number]) 1975 F Date Time Provider Department 04/14/24 [...] lotion ammonium lactate 12 % lotion - eMaginUCH ULTRA BLUE TEST STRIP test strip use [...] 3 ML 25 X 5/8 use with [facility] Facility-Administere d Medications as of 04/15/2024 - onabotulinum toxin type A 200 Units injection (BOTOX) Problem List As Of Date 04/14/2024 Noted Resolved Migraine without aura, without mention of intra*04/24/2005 08/01/2016 CHRON OBST ASTHMA UNSPECIFIED [J44.89] 04/24/2005 Bilateral occipital neuralgia [M54.81] 11/07/2016 Status migrainosus [G43.901] 04/08/2024 Letter Text Encounter Status:Closed by MARILYNN LUA on 04/15/24 [facility] CNOVon 04-08-2024 CNOV Office Visit (INDBEC) JACQUELYN ZENG ([id number]) 1975 F Date Time Provider Department 04/08/24 [...] for migraine Informed Consent Consent Obtained: Written [place] Protocol A moment to CARE was completed [...] applicable Written Consent Obtained: Written LOT #: [id number] Expiration Date: Month: 2 Year: 2026 Injection Sites Left (Units) Left (Sites) Right (Units) Right (Sites) TOTAL (Unit (more content not included)... Normal [facility] Refillon 04-07-2024 Refill [id number] Jacquelyn Zeng 1975 F Date Provider Department Center 04/07/2024 JOSE FRANCISCO PHAM [facility] ENDOCR [facility] Family History Problem Relation Age of Onset Coronary artery disease Mother Heart attack Mother Cancer Mother Heart attack Father 54 Family Status - Relation Status Age at Mother Father Reason for Visit and Comments: Med Change Request [411] Normal [facility] Follow-Upon 04-06-2024 Follow-Up [id number] Jacquelyn Zeng 1975 F Date Provider Department Center 04/06/2024 JOSE FRANCISCO PHAM [facility] ENDOCR [facility] Family History Problem Relation Age of Onset Coronary artery disease Mother Heart attack Mother Cancer Mother Heart attack Father 54 Family Status - Relation Status Age at Mother Father Level of Service:11401 [place] OFFICE/OUTPATIENT ESTABLISHED LOW MDM 20 MIN Reason for Visit and Comments: Diabetes Mellitus [183] - DM follow up Normal [facility] Caden 03-30-2024 TIM Telephone (NIQ) JACQUELYN ZENG ([id number]) 1975 F Date Time Provider Department 03/30/24 [...] on 04/08/24 at 8:30AM with [facility] at [place]. Slot is currently on hold for patient [...] Date Reviewed: 05/17/2023 Reviewed by: 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 APRN.CABLE BRAIDER - Fully Assessed Reason for Visit: Botox [...] soln INJECT 1mL TWICE DAILY NEEDED - pnxlrv-llnohyym-lvnw ase (ZENPEP) 40,000-126,000- 168,000 unit delayed release [...] 3 ML 25 X 5/8 use with [facility] Facility-Administere d Medications as of 04/08/2024 - onabotulinum toxin type A 200 Units injection (BOTOX) Problem (more content not included)... Normal [facility] Follow-Upon 02-12-2024 Follow-Up [id number] Jacquelyn Zeng 1975 Provider Department [place] 02/12/2024 JOSE FRANCISCO PHAM [facility] ENDOCR [facility] Family History Problem Relation Age of Onset Coronary artery disease Mother Heart attack Mother Cancer Mother Heart attack Father 54 Family Status - Relation Status Age at Mother Father Level of Service:22194 [place] OFFICE/OUTPATIENT ESTABLISHED MOD MDM 30 MIN Reason for Visit and Comments: Diabetes Mellitus [183] Normal [facility] Refillon 02-12-2024 Refill [id number] Jacquelyn Zeng 1975 Provider Department [place] 02/12/2024 JOSE FRANCISCO PHAM [facility] ENDOCR [facility] Family History Problem Relation Age of Onset Coronary artery disease Mother Heart attack Mother Cancer Mother Heart attack Father 54 Family Status - Relation Status Age at Mother Father Reason for Visit and Comments: Med Change Request [411] Normal [facility] ALL LIPID PROFILE (FASTING)o n 02-07-2024 CHOL HDL RATIO 6.6 [facility] Comment on above: 3.3 - 4.4 LOW RISK 4.4 - 7.1 AVERAGE RISK 7.1 - 11.0 MODERATE RISK >11.0 HIGH RISK Cholesterol [Mass/Vol] 184 mg/dL NINF - 200 mg/dL [facility] Cholesterol in HDL [Mass/Vol] 28 mg/dL Low 40 - 60 mg/dL [facility] Comment on above: > or =60 mg/dl - LOW CARDIOVASCULAR RISK <40 mg/dl - HIGH CARDIOVASCULAR RISK Interpretation and review of laboratory results Abnormal [facility] Magnesium [Mass/Vol] 207.2 mg/dL [facility] Triglyceride [Mass/Vol] 1036 mg/dL High NINF - 150 mg/dL [facility] No Panel Informationon 02-06 [facility] Office Visiton 02-07-2024 Follow-up visit [id number] Jacquelyn Zeng Nydia 1975 F Date Provider Department Center 02/07/2024 JULIANA CAAL [facility] Family History Problem Relation Age of Onset Coronary artery disease Mother Heart attack Mother Cancer Mother Heart attack Father 54 Family Status - Relation Status Age at Mother Father Level of Service:82603 [place] OFFICE/OUTPATIENT ESTABLISHED MOD MDM 30 MIN Normal [facility]H DIRECT LDLon 02-07-2024 Magnesium [Mass/Vol] 47 mg/dL [facility] Comment on above: <100 mg/dl OPTIMAL 100-129 mg/dl NEAR OR ABOVE OPTIMAL 130-159 mg/dl BORDERLINE HIGH 160-189 mg/dl HIGH >190 mg/dl VERY HIGH Coding Summaryon 01-21-2024 Coding Summary HTMLBase 64 JxkybgoqJQx9xNm+PGhl YWQ+TL2BSAEvS29glRBn oI3uD2GMNRwXAcjwFKXE WShEJnHktlQoNE5trGQe ZXJu IC8+YZ7mPNUoCptxdQUr v8M3qYB0D94cyp5qJJon sGB4PFAdAtYjvnede8dy bDx1DJjuLklhPsDs RBCexK71QMW0lT96Aa60 yWOfvUCaq1crmHr9LlBi VIQbVWU3hGhfLDsbu8Rp AQOeI10tzPEwu2T9 IGNvbGxhcHNlOyBlbXB0 wT4fICuosawqw3dhnaom Jlz8xn29rFTnt9U6pSU7 W2ZrcjI1MZEpjAHv WqmfpURHoM4cqozhr9bx rwgfIoXcHGEtQZy3SDd2 YBRxiYakKgBfOQ17RDZ5 LJKxfrXfD4SmOUJa xVtyGjD0b1T3Lu6GX7GI UgslJ9TFQCBYCHzwwYS+ ZT90jr75M7XgBwvdVzg8 SWYoYMH5aFM4qV2s XRSpSMdas1H5cSA1H5Sn qaTyax6pp8alHQRePXae I43ciNItc3P1RQAivQN4 TNMqsFbiInVrmG34 Oyc+LFKyiRequ8JoUeqn w1pyw2xmoXl4CileWSNc sxAwrQdpRRF5o2ElFe0y GBQmeOX9zSU6tS7d UdShJiG3LLzlW965GcMz rZJkLthjI22cJ5JudPJ+ TXToWin9CKDmsXjpPJ3f Z0BcQOTmjtufqXDu vXhjHI5zKQTuqkwqNVMv fC3kUBWcD9q6TiGyCpP1 QYisN8MjEJLvdvjlJg79 nH2iFvCwDzH9NMdl E9FasbH7AGGmxPZxCDdr OEO8D14ly2G8MQKrMATl OQR9qKC8bG5vuEfbejrw bGVmdDsgdmVydGlj QBaoSVegQ142XARdrDri PkNvZGluZyBEYXRlOiAg MDkvMTAvMjAyNDwvdGQ+ TSOpSFN5aYhjLNWs fBPiNCtaHc7phVmccKfk JQ9gGCRsocpfMWTmkU6n HXAetQUaeBqqPF7sTQHo mtjcn551VbRoLSM3 FLPcxHAbF2FobS2zFpQr PCAnXDXiM3UdeUKtFWim W182CQrnDxA4CEPwjsQp E1IpYHQgjYqvJvM6 u7O2Gt4Gh4GkwnkuL1Mr gAZdUjJgPxbfYLv5B5Ek PjwvdHI+UJ33EZHkHA34 PIn0PIS0nFdtJNdo AYFoS5KqeY6mRmMlIVXy ZGRkOyc+PHRhYmxlIHdp ZHRoPScxMDAlJyBzdHls WD9aAz5aLWWqLHIa fTbaiOVeCeIga5zpMCFw PJchRU2teZkwV4VjhMD3 DJDyv8n3Jr60O67cH2Fl dXA+YEDncIU0nNF6 wR4dPhGcIgL4UIcaD122 QlEtwSVmApqwl5evx9qe oVi0DiZ9ZIQbrjAfuGum NWE9r2DxQp69W11o IHdpZHRoPSIxNSUiIHZh lEhtib8lbS7jZz9+PGNv aPE7wGT1aP4aCnYmRaQ0 VDfyU844YeHkvXCd Iitak4dmq0fbjNf3BnDu BGNbblJrwUhyRIV9p4Rt Rq65H8FseZskk0EhBnp9 xf56uCQlz9B3eEJ7 O6OfCTDxsvrqpHLkdIqj GT1wVIDirrmtXQEofJ3x DKNzX7i0JnEeEgT7WCam B2CypdK7TEJhyFLz MTMxmCBQvN2zddfwb4lo ygjxNyOjIQMnCKu6ABe4 REHmjYpaAlLsXOL2FlM0 QEE8yZMmlT2mtJpo ggnzkE6vSmk+JUX9kDQz uTKEVB7iYjksfXU+PHRk FSR2aNapJUupJTKfpJ0b JJUsT5k7LeOpMjE4 VAekP2LhkdA5IUEaiMFz LJVitZOHaR5zjacvj9xg lchuPiNtATJfPOj6ZMz7 LWFsaWduOiBsZWZ0 UjS6SDK1bUWhuW5bgDjo puwukK9yPai+QmlydGgg CTO0CEq3U7PtNwx9RDIk gNnjCN7tdVClPOwn Tu1rdTmjfOckOK5mJQIw wmojv632JoFcw6zcJRVz bVWnOSsgVAY1Z60zs0M9 GHCgTGFlBCZ8fNO9 rD9hhInhmkfkvKDjuRwz cmJboKgrJJfpBQmpO764 ZLZokRqdFyIyDBu8M0Kz Xew3MCUrePwnPI6k xMMsZZdnQj7neRyjgDas HI6tXUEjsywlo555UgFy i0voLXBbsMWuBWemRSI9 R53oz1U9BRAkCXBv KGF0jGX1lZ0xyUxmgixt bGVmdDsgdmVydGljYWwt WLejW642ZLZljPjfHkOh lVf3W6DcKlf8ISSi pGceYR9bsZUpJTvtLh2c uWuogBabCP8zMTZuuvwk f939KsPfx0azHRNakKRs KDfyREM8U11sa9I1 MJRrQAXzEEQ5tTU4yP0c bGlnbjogbGVmdDsgdmVy zIqpXSorMTbtO045COEq cDsnPlBhdGllbnQg SHwsYGv2V2BuGousfFA+ NY98ILHoNJ96uJIkvXCh e4monBi9LxKtHWTxGHZ3 wPirCVocw6ObHRHx B80npNVfg8L6XQGnxLna xEXrPzEesAH4eU5tMSmh ilcgf1przzsxVnbvg5qt fs45lH48W48vFYol ZHRoPSIzMCUiIHZhbGln zj8leG9sTg6+PGNvbCB3 vTV8hW0fIGQqGgR8VPnu F631UpNpbWMvGkie y2agw0grzBb0ZsI8XSUs fqLdjThaMUH4r5HwYw72 R03gMJgdHFByXGGdNCJe CLZqtFzekg1dbD4j Ii8+GROsgJP5aJJ7eD1z PiCyNhR2TTdpD078HdWb mTTvCjoeX66aR8JapXT+ ZMJeClv8PITzqNxe ZZ1veERwJNfvCs1mHOJ8 KlUeDeHeEHkuS9IaJJWd dxafjtpcwTS0GTAvNQTt sE73Pa6udWbzIODi gPJDjG6mjqqez2mvnlwn HbWxPTEfGMj2EPw1RJKw qJkdAhIeGGJ4NbW4VQK5 zXIgkC7ggUjsxivi xP6hX6WsEQVhbhieHm83 rL9hFfZbFzI8SZhpGvp+ EX1HYS6RQVLBVVltRUje dGQ+DCTxPBW5xMxm CMlpWLLczM0vRNBjU7f4 AdHeRkY4DZvrI6ZlBRGn swkuKj54sT1hQlHwAvJ4 WOrzZ5OauyA5DQOf iNHfJQgqENR4K14ff1J7 WQNeMTXzJHC2pUU9zG2w bGlnbjogbGVmdDsgdmVy eBajFWnvHTvdZ334 HVUnoMuiZiN3TnVcMaS8 UuU2K2UkGgw2LKIyzAlp JN7frDIlRCthEe5vmIjm fLrbGH7lEYLxctcr PZNzaE0uGHZzbAIxhFpc SX7eXPIwvfdop779JwRx MZY0WOJrrKBxN9YhmG1k BlGsGXFkZFHzY8Qn wMVrVUjlV495ETunDjB9 GXBrnjBnF1ZfPOGfdYwp VgE3h1M3Lv44CHOWSYLn czwvdGQ+PHRkIHN0 bVjlSJfxKIWxyC5wINMr Q5z9TuPbIcZ7QNzkT9Ln MMGukikyGa29uH8wBgLr ZcH6TPxnP4KfkfT5 UVXdxLHvQRapALI0P37y g1V8YQSoOFZjWAM5fAO5 iZ4svEssaekmqWJkpIkf dmVydGljYWwtYWxp F565UFXgaDmaCiCZNSAJ RTwvdGQ+SUGwZJS9jJnj BVtuQZCxvC0jYSQwI3r8 FxIiLuO8GSqlI2Bc WSFvyrutSf80bL7oKqHb NaM6PTcfA3IcbfR5QAJt lVDjEUcmUFM7N89we9O2 NUOnGBQtZBV6nUI3 zU1jhKjelsfryPJhxVse mhJyaWwoKHojVAyuR874 LSGodRyyAj5LLD68UO10 U2OqZwjedIFnqZK+ PHRhYmxlIHdpZHRoPScx OOTvKaUykDrvCW1lBh0r ZGVyLWNvbGxhcHNlOiBj e3rvCVQcGXhhBA2j hYwrJ3VuqZY9PKFnm4m4 Yz27W05wT3VymVS+PGNv fYW5jWE3iA0nOhHgFzG6 ZOzkC085AwWlbWAt Lylld2hkp0cnbEt6PwJd HQPyluKqqJftWPL6f9Fq Ze73Y69vMKbvSBTwQOMu KHJsRIYwsCeepi1y yY3gDr2+YXIfmCU6nOC0 sG4uTqPrLvH1QEfrF721 JsEvwQGmWtbeF49lK9Pw dXA+COPcEye6NMUo sGjaMW4xvQByXBmpOt2a GMM6SiJxCwCcLZdpS3Do ZWOddflllmvnnRZ3ILDv GSZgcD57Jg8tiDom Az1gJPGxSPI7IHDtiXEq O4ZcfB4cXzApJYKbPBMb J0HnePMdWBapW310VAvp YrG1UGTpfpQgW7Qf UYGyoHrbPjZ4x3L2Sh8U cLshnOMaRW2qJnZrZWo3 T7JxEbd4CVBhhJeuAH5v zHZhFNdxKx0reXop kYrpBN9wIHDcbftcd195 UvPdo6ofGXCqqVVbTJdv FSI0Z38kt4X9BOSiXLUk VXS5cYZ1vP8jrHxw bjogbGVmdDsgdmVydGlj VTfgXNsuY135EFKmjTkw NwEDEcm4D8FuCxm7AYRb bHtaSS3ceYLvXUsc Qx3wsGleuIfaUS1rLMAj fmsjq111XtLjr8hdYRNt yJElAPgdHXX3E27ec0N9 QQVoEZUpVVA6fEB0 pJ0gyQhlpnsxnKOqeUoj sfZihVqrWHxtTAdyY684 MJYjbHstOr1LTfn6Z8Hq Hvh0PGIyqIsiXX0h pHOfNKibDe7ypKgvjTgv WK6kKEGreocrb180DaKn l7qzNANhaPSfXYmjQLW3 M08ap4P2LJHvEEIv NPB1iQF9qK1chCtutqtq bGVmdDsgdmVydGljYWwt QIrcZ682XQOvlRymIwPy eWVyOjwvdGQ+PC90 qk58S9SrEkfkLms9NRDu VGZ8rXJ7wX8zWJRqUHvw f5I8zKO6Z7BslqDqfd2j c3yqVWTkHXxlL59v bGF (more content not included)... Normal [facility] ED Clinical Summaryon 2023 ED Clinical Summary [facility] ? Urgent Care [address] [place] [address] [id number] Clinical Summary PERSON INFORMATION Name: JACQUELYN ZENG Age: 48 Years Sex: FEMALE : 1975 MRN: Acct#: Visit Reason: Medical screening exam; [facility] F/U - BACK/HEAD INJURY Arrival: 01/15/2024 13:58:40 Discharge: 01/15/2024 14:29:00 LOS: 000 00:31 Check In: 01/15/2024 13:58:40 Checkout: 01/15/2024 14:29:00 Address: [address] [place] [id number]: JOSH OCHOA PROVIDER INFORMATION Provider Role Assigned [...] verbalizes understanding of instructions given Comment: Normal [facility] ED Patient Summaryon 024 ED Patient Summary [facility] ? Urgent Care [address] [place] [id number] PATIENT DISCHARGE INSTRUCTIONS Patient Information Name: JACQUELYN ZENG Age: 48 Years Date of : 1975 Reason For Visit: Medical screening exam; [facility] F/U - BACK/HEAD INJURY Arrival Time: 01/15/2024 13:58:40 Primary Care Physician: JOSH OCHOA Attending Physician: PHILIP MATHEWS Comment: Patient Education With: Address: When: Return to this practice Comments: 6 months Medication Information: The exam and treatment you received today in the [facility] Emergency Department were for an urgent problem and are not intended as complete care. It is important for you to follow up with a doctor, nurse practitioner, or physician?s power plant assistant for ongoing care. If your symptoms [...] so we can reach you if necessary. [facility] Emergency Department has provided you with a complete list of medications post discharge. Please inform your switching clerk/provider of your visit and for further instruction [...] THE MORNING DO not crush or chew. [facility] Prescription (DME: Upright walker) Diagnosis F07.81 Length of need: 6+ months Dispense 1 No refills. (more content not included)... Normal [facility] Urgent Care Note- Provideron 01-15-2024 Urgent Care [...] FOLLOW-UP Date of injury: 01/24/16 Claim #: [id number] Employer: [employer] Mechanism of Injury: She tripped and fell [...] Jacquelyn transferred care to us from the [facility] in September 2018. In 2015 [...] shoulder was finally allowed and performed at [facility]. She was allowed an injection [...] find an occasional Oxycodone all that helpful. [facility] pain management recommended their intensive pain management program but it was denied by [facility]. She denies any saddle anesthesia. No [...] She sees pain management Dr. Stack at [facility] who performs greater an lesser occipital [...] down b (more content not included)... Normal [facility] Care [place] 024 Urgent Care Record [facility] ? Urgent Care [address] [place], [place] [id number] PATIENT DISCHARGE INSTRUCTIONS Patient Information Name: JACQUELYN ZENG Age: 48 Years Date of : 1975 Reason For Visit: Medical screening exam; [facility] F/U - Arrival Time: 01/15/2024 13:58:40 Primary Care Physician: JOSH OCHOA Attending Physician: PHILIP MATHEWS Comment: Visit Diagnosis: Diagnoses This Visit Adhesive capsulitis (M75.00) C6 radiculopathy (M54.12) Cervicogenic headache (G44.86) Left knee sprain (S83.92XA) Lumbar strain (S39.012A) Medical screening exam ([id number]) Occipital neuralgia (M54.81) 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 It is important for you to follow up with a doctor, nurse practitioner, or physician?s power plant assistant for ongoing care. If your symptoms [...] can reach you if necessary. [facility] has provided you with a complete list of medications post discharge. Please inform your switching clerk/provider of your visit and for further instruction [...] IM) 30 Milligr (more content not included)... [facility] 36on 01-06-2024 36 Patient's insurance prefers the generic for Vascepa. Per [facility] pharmacist, the generic is on a nation wide back order. Is there anything else you'd like to try instead? [facility] Urgent Care Note- Provideron 01-06-2024 Urgent Care Note- Provider Patient: JACQUELYN ZENG Age: 48 years Sex: FEMALE : 1975 Associated Diagnoses: None Author: PHILIP MATHEWS OCCUPATIONAL HEALTH FOLLOW-UP Date of injury: 01/24/16 Claim #: [id number] Employer: [employer] Mechanism of Injury: She tripped and fell [...] [Verified on: 01/06/2024 15:01 EDT] PHILIP MATHEWS [facility] 36on 12-17-2023 36 Regarding lipid panel performed [...] to apt on 02/07/2024. Orders sent. Normal [facility] Telephoneon 12-17-2023 Telephone [id number] Jacquelyn Zeng Nydia 1975 F Date Provider Department Center 12/17/2023 8-[facility] Yonatan Menon Family History Problem Relation Age of Onset Coronary artery disease Mother Heart attack Mother Cancer Mother Heart attack Father 54 Family Status - Relation Status Age at Mother Father Normal [facility] ALL CBC WITH AUTO DIFFon BASOPHILS ABSOLUTE AUTO 0.1 [facility] Basophils/100 WBC (Bld) 1.1 % 0.2 - 2.0 % [facility] Eosinophils/100 WBC (Bld) 3.0 % 0.9 - 7.0 % [facility] Erythrocyte distribution width (RBC) [Ratio] 14.4 % 11.0 - 15.0 % [facility] Hematocrit (Bld) [Volume fraction] 44.3 % 36.0 - 48.0 % [facility] Hemoglobin (Bld) [Mass/Vol] 14.0 g/dL 12.0 - 16.0 g/dL [facility] IMMATURE GRANULOCYTES ABS AUTO 0.02 [facility] Immature granulocytes/100 WBC (Bld) 0.3 % 0.0 - 0.5 % [facility] LYMPHOCYTES ABSOLUTE AUTO 3.8 [facility] Lymphocytes/100 WBC (Bld) 47.7 % 20.5 - 60.0 % [facility] (RBC) [Entitic mass] 29.5 pg 26.7 - 34.0 pg [facility] MCHC (RBC) [Mass/Vol] 31.6 g/dL 29.9 - 35.2 g/dL [facility] MCV (RBC) [Entitic vol] 93.5 fL 81.0 - 99.0 fL [facility] MONOCYTES ABSOLUTE AUTO 0.9 [facility] Monocytes/100 WBC (Bld) 11.1 % 1.7 - 12.0 % [facility] NEUTROPHILS ABSOLUTE AUTO 2.9 [facility] Neutrophils/100 WBC (Bld) 36.8 % Low 43.0 - 75.0 % [facility] Platelet mean volume (Bld) [Entitic vol] 10.6 fL 9.5 - 13.5 fL [facility] EO # 0.2 [facility] PLT 380 [facility] RBC 4.74 [facility] WBC 8.0 [facility] MLR HEMOGLOBIN A1Con 024 Glucose [Mass/Vol] 160 mg/dL [facility] HbA1c (Bld) [Mass fraction] 7.2 % High 4.5 - 6.2 % [facility] Comment on above: ADA RECOMMENDED LIMI T 4.0 - 6.0 ADA THERAPEUTIC TARGET < 7.0 ACTION SUGGESTED > 7.0 No Panel Informationon 06-22 Interpretation and review of laboratory results Abnormal [facility] MICROALBUMIN, RAND URon 06-22-2023 MICROALBUMIN URINE RANDOM <1.3 NINF - 30.0 mg/dL [facility] Glucose Glucometer (BldC) [M ass/Vol]Ordered By: Lee Chowdary on 09-06-2022 Glucose [Mass/Vol] 138 mg/dL [facility] Comment on above: Random Glucose Refer ence Range is dependent on time and content of last meal. Glucose of more than 200 mg/dL in a nonstressed, ambulatory subject supports the diagnosis of Diabetes Mellitus. HCG ( test) IA.rapi d Ql (U)Ordered By: Avinash Mays on 09-06-2022 HCG ( test) Ql (U) Negative [facility] MG MAMM DIAGNOSTIC 3D YOUNG CA Don 08-28-2022 MG MAMM DIAGNOSTIC 3D YOUNG CAD Patient: JACQUELYN ZENGStephon Exam Date: 08/28/2022 : 1975 Gender:F Ordering : MARGARETTE HUITRON . Admission #: [id number] Family : Order #: [id number] CLICK HERE TO VIEW EXAM RADIOLOGY REPORT [...] cancer at age 53. LOCATION: [facility] BREAST COMPOSITION: Scattered areas fibroglandular density. [...] on 08/28/2022 at 14:55 Normal [facility] US BREAST RIGHT LIMITEDon US BREAST RIGHT LIMITED Patient: ZENG JACQUELYN Alvino Exam Date: 08/28/2022 : 1975 Gender:F Ordering : MARGARETTE HUITRON . Admission #: [id number] Family : Order #: [id number] CLICK HERE TO VIEW EXAM RADIOLOGY REPORT [...] cancer at age 53. LOCATION: [facility] BREAST COMPOSITION: Scattered areas fibroglandular density. [...] on 08/28/2022 at 14:55 Normal [facility] Basophils Auto (Bld) [#/Vol] Ordered By: Lee Chowdary on 08-27-2022 Basophils (Bld) [#/Vol] 0.2 10*3/uL 0.0-0.2 [facility] Basophils/100 WBC Auto (Bld) Ordered By: Lee Chowdary on 08-27-2022 Basophils/100 WBC (Bld) 1.4 % . [facility] Calcium [Mass/volume] in Ser um or PlasmaOrdered By: Lee Chowdary on 08-27-2022 Calcium [Mass/Vol] 9.8 mg/dL 8.6-10.3 [facility] Carbon dioxide, total [Moles /volume] in Serum or PlasmaOrdered By: Lee Chowdary on 08-27-2022 CO2 [Moles/Vol] 28.7 mmol/L 21.0-31.0 [facility] Chloride [Moles/volume] in S sophia or PlasmaOrdered By: Lee Chowdary on 08-27-2022 Chloride [Moles/Vol] 99 mmol/L 98-107 [facility] Creatinine [Mass/volume] in Serum or PlasmaOrdered By: Lee Chowdary on 08-27-2022 Creatinine [Mass/Vol] 0.80 mg/dL 0.60-1.20 [facility] Eosinophils Auto (Bld) [#/Vo l]Ordered By: Lee Chowdary on 08-27-2022 Eosinophils (Bld) [#/Vol] 0.5 10*3/uL 0.0-0.45 [facility] Eosinophils/100 WBC Auto (Bl d)Ordered By: Lee Chowdary on 08-27-2022 Eosinophils/100 WBC (Bld) 4.5 % . [facility] Erythrocyte distribution wid th Auto (RBC) [Ratio]Ordered By: Lee Chowdary on 08-27-2022 Erythrocyte distribution width (RBC) [Ratio] 13.4 % 11.9-15.3 [facility] Glucose [Mass/volume] in Ser um or PlasmaOrdered By: Lee Chowdary on 08-27-2022 Glucose [Mass/Vol] 126 mg/dL 70-100 [facility] Comment on above: ADA recommended refe rence rangeRandom Glucose Reference Range is dependent on time and content of last meal. Glucose of more than 200 mg/dL in a nonstressed, ambulatory subject supports the diagnosis of Diabetes Mellitus. Hematocrit Auto (Bld) [Volum e fraction]Ordered By: Lee Chowdary on 08-27-2022 Hematocrit (Bld) [Volume fraction] 42.2 % 34.0-46.4 [facility] Hemoglobin [Mass/volume] in BloodOrdered By: Lee Chowdary on 08-27-2022 Hemoglobin (Bld) [Mass/Vol] 14.0 g/dL 11.8-15.4 [facility] Leukocytes [#/volume] correc imer for nucleated erythrocytes in Blood by Automated counOrdered By: Lee Chowdary on 08-27-2022 WBC corrected for nucl RBC Auto (Bld) [#/Vol] 11.6 10*3/uL 3.8-11.6 [facility] Lymphocytes Auto (Bld) [#/Vo l]Ordered By: Lee Chowdary on 08-27-2022 Lymphocytes (Bld) [#/Vol] 5.0 10*3/uL 1.00-4.8 [facility] Lymphocytes/100 WBC Auto (Bl d)Ordered By: Lee Chowdary on 08-27-2022 Lymphocytes/100 WBC (Bld) 42.7 % . [facility] MCH Auto (RBC) [Entitic mass ]Ordered By: Lee Chowdary on 08-27-2022 MCH (RBC) [Entitic mass] 30.3 pg 24.7-34.3 [facility] MCHC Auto (RBC) [Mass/Vol]Or dered By: Lee Chowdary on 08-27-2022 MCHC (RBC) [Mass/Vol] 33.3 g/dL 32.0-35.0 [facility] MCV Auto (RBC) [Entitic vol] Ordered By: Lee Chowdary on 08-27-2022 MCV (RBC) [Entitic vol] 91.0 fL 80-100 [facility] Monocytes Auto (Bld) [#/Vol] Ordered By: Lee Chowdary on 08-27-2022 Monocytes (Bld) [#/Vol] 1.2 10*3/uL 0.0-0.8 [facility] Monocytes/100 WBC Auto (Bld) Ordered By: Lee Chowdary on 08-27-2022 Monocytes/100 WBC (Bld) 10.0 % . [facility] Neutrophils Auto (Bld) [#/Vo l]Ordered By: Lee Chowdary on 08-27-2022 Neutrophils (Bld) [#/Vol] 4.8 10*3/uL 1.8-7.7 [facility] Neutrophils/100 WBC Auto (Bl d)Ordered By: Lee Chowdary on 08-27-2022 Neutrophils/100 WBC (Bld) 41.4 % . [facility] No Panel InformationOrdered By: Lee Chowdary on 08-27-2022 Estimated GFR (CKD-EPI) > 60.0 mL/Min [facility] Creatinine Clearance (Chem N/A [facility] Nucleated erythrocytes [Pres ence] in Blood by Automated countOrdered By: Lee Chowdary on 08-27-2022 Nucleated RBC Auto Ql (Bld) 0.1 /100{WBC} 0-0.5 [facility] Platelet mean volume Auto (B ld) [Entitic vol]Ordered By: Lee Chowdary on 08-27-2022 Platelet mean volume (Bld) [Entitic vol] 8.6 fL 6.3-10.7 [facility] Platelets Auto (Bld) [#/Vol] Ordered By: Lee Chowdary on 08-27-2022 Platelets (Bld) [#/Vol] 355 10*3/uL 150-450 [facility] Potassium [Moles/volume] in Serum or PlasmaOrdered By: Lee Chowdary on 08-27-2022 Potassium [Moles/Vol] 4.1 mmol/L 3.5-5.1 [facility] RBC Auto (Bld) [#/Vol]Ordere d By: Lee Chowdary on 08-27-2022 RBC (Bld) [#/Vol] 4.64 10*6/uL 3.60-5.00 [facility] Serum or plasma anion gap de terminationOrdered By: Lee Chowdary on 08-27-2022 Anion gap [Moles/Vol] 13.4 mmol/L 6.0-15.0 [facility] Sodium [Moles/volume] in Ser um or PlasmaOrdered By: Lee Chowdary on 08-27-2022 Sodium [Moles/Vol] 137 mmol/L 136-145 [facility] Urea nitrogen [Mass/volume] in Serum or PlasmaOrdered By: Lee Chowdary on 08-27-2022 Urea nitrogen [Mass/Vol] 18 mg/dL 7-25 [facility] WBC Auto (Bld) [#/Vol]Ordere d By: Lee Chowdary on 08-27-2022 WBC (Bld) [#/Vol] 11.6 10*3/uL 3.8-11.6 [facility] CBC AUTO DIFFon 07-24-2022 BASO # 0.2 103/ul Critically high 0.0-0.1 [facility] Comment on above: Performed By: #### C BC #### [facility] [address] [address] [address] Aurelio Leavitt Basophils/100 WBC (Bld) 1.4 % Normal 0.2-2.0 [facility] Comment on above: Performed By: #### C BC #### [facility] [address] [address] [address] Aurelio Leavitt EO # 0.7 103/ul Normal 0.0-0.7 [facility] Comment on above: Performed By: #### C BC #### [facility] [address] [address] [address] Aurelio Leavitt Eosinophils/100 WBC (Bld) 4.5 % Normal 0.9-7.0 [facility] Comment on above: Performed By: #### C BC #### [facility] [address] [address] [address] Aurelio Leavitt Erythrocyte distribution width (RBC) [Ratio] 13.3 % Normal 11.0-15.0 [facility] Comment on above: Performed By: #### C BC #### [facility] [address] [place] [address] Dr. Aurelio Leavitt Hematocrit (Bld) [Volume fraction] 48.8 % Critically high 36.0-48.0 [facility] Comment on above: Performed By: #### C BC #### [facility] [address] [place] [address] Dr. Aurelio Leavitt Hemoglobin (Bld) [Mass/Vol] 16.7 g/dL Critically high 12.0-16.0 [facility] Comment on above: Performed By: #### C BC #### [facility] [address] [place] [address] Dr. Aurelio Leavitt IG # 0.06 10e3/ul Critically high 0.00-0.03 [facility] Comment on above: Performed By: #### C BC #### [facility] [address] [place] [address] Dr. Aurelio Leavitt IG % 0.4 % Normal 0.0-0.5 [facility] Comment on above: Performed By: #### C BC #### [facility] [address] [place] [address] Dr. Aurelio Leavitt LYMPH # 6.2 103/ul Critically high 1.2-3.8 [facility] Comment on above: Performed By: #### C BC #### [facility] [address] [place] [address] Dr. Aurelio Leavitt Lymphocytes/100 WBC (Bld) 42.2 % Normal 20.5-60.0 [facility] Comment on above: Performed By: #### C BC #### [facility] [address] [place] [address] Dr. Aurelio Leavitt MANUAL DIFF REQ NO Normal [facility] Comment on above: Performed By: #### C BC #### [facility] [address] [place] [address] Dr. Aurelio Leavitt MCH (RBC) [Entitic mass] 30.4 pg Normal 26.7-34.0 [facility] Comment on above: Performed By: #### C BC #### [facility] [address] [place] [address] Dr. Aurelio Leavitt MCHC (RBC) [Mass/Vol] 34.2 g/dL Normal 29.9-35.2 [facility] Comment on above: Performed By: #### C BC #### [facility] [address] [place] [address] Dr. Aurelio Leavitt MCV (RBC) [Entitic vol] 88.9 fL Normal 81.0-99.0 [facility] Comment on above: Performed By: #### C BC #### [facility] [address] [place] [address] Dr. Aurelio Leavitt MONO # 1.1 103/ul Critically high 0.3-0.8 [facility] Comment on above: Performed By: #### C BC #### [facility] [address] [place] [address] Dr. Aurelio Leavitt Monocytes/100 WBC (Bld) 7.2 % Normal 1.7-12.0 [facility] Comment on above: Performed By: #### C BC #### [facility] [address] [place] [address] Dr. Aurelio Leavitt NEUT # 6.5 103/ul Normal 1.4-6.5 [facility] Comment on above: Performed By: #### C BC #### [facility] [address] [place] [address] Dr. Aurelio Leavitt Neutrophils/100 WBC (Bld) 44.3 % Normal 43.0-75.0 [facility] Comment on above: Performed By: #### C BC #### [facility] [address] [place] [address] Dr. Aurelio Leavitt Platelet mean volume (Bld) [Entitic vol] 11.5 fL Normal 9.5-13.5 [facility] Comment on above: Performed By: #### C BC #### [facility] [address] [place] [address] Dr. Aurelio Leavitt PLT 350 103/ul Normal 150-450 [facility] Comment on above: Performed By: #### C BC #### [facility] [address] [place] [address] Dr. Aurelio Leavitt RBC 5.49 106/ul Critically high 4.20-5.40 [facility] Comment on above: Performed By: #### C BC #### [facility] [address] [place] [address] Dr. Aurelio Leavitt WBC 14.6 103/ul Critically high 4.0-11.0 [facility] Comment on above: Performed By: #### C BC #### [facility] [address] [place] [address] Dr. Aurelio Leavitt DIRECT LDLon 07-24-2022 Cholesterol in LDL [Mass/Vol] 102 mg/dL Normal [facility] Comment on above: Performed By: #### C MREP #### [facility] [address] [place] [address] Dr. Aurelio Leavitt DLDL NORMAL SEE BELOW Normal [facility] Comment on above: Result Comment: <100 mg/dl OPTIMAL 100 - 129 mg/dl NEAR OR ABOVE OPTIMAL 130 - 159 mg/dl BORDERLINE HIGH 160 - 189 mg/dl HIGH >190 mg/dl VERY HIGH Performed By: #### C MREP #### [facility] [address] [address] [address] Aurelio Leavitt GLYCOHEMOGLOBIN A1Con 2022 ADA RECOMMENDATION SEE BELOW Normal [facility] Comment on above: Result Comment: ADA RECOMMENDED LIMIT 4.0 - 6.0 ADA THERAPEUTIC TARGET < 7.0 ACTION SUGGESTED > 7.0 Performed By: #### A CETON #### [facility] [address] [address] [address] Aurelio Leavitt Glucose [Mass/Vol] 266 mg/dL Normal [facility] Comment on above: Performed By: #### A CETON #### [facility] [address] [place] [address] Dr. Aurelio Leavitt HbA1c (Bld) [Mass fraction] 10.9 % Critically high 4.5-6.2 [facility] Comment on above: Performed By: #### A CETON #### [facility] [address] [address] [address] Aurelio Leavitt LIPID PROFILEon 07-24-2022 CHOL-HDL RATIO NORM SEE BELOW Normal [facility] Comment on above: Result Comment: 3.3 - 4.4 LOW RISK 4.4 - 7.1 AVERAGE RISK 7.1 - 11.0 MODERATE RISK >11.0 HIGH RISK Performed By: #### C MREP #### [facility] [address] [place] [address] Dr. Aurelio Leavitt Cholesterol [Mass/Vol] 257 mg/dL Critically high <=200 [facility] Comment on above: Performed By: #### C MREP #### [facility] [address] [place] [address] Dr. Aurelio Leavitt Cholesterol in HDL [Mass/Vol] 34 mg/dL Critically low 40-60 [facility] Comment on above: Performed By: #### C MREP #### [facility] [address] [address] [address] Aurelio Leavitt Cholesterol.total/Linda sterol in HDL [Mass ratio] 7.6 {ratio} Normal [facility] Comment on above: Performed By: #### C MREP #### [facility] [address] [address] [address] Aurelio Leavitt HDL NORMAL > or = 60 mg/dl - LOW CARDIOVASCULAR RISK <40 mg/dl - HIGH CARDIOVASCULAR RISK Normal [facility] Comment on above: Performed By: #### C MREP #### [facility] [address] [address] [address] Aurelio Leavitt LDL CALC NORMAL SEE BELOW Normal [facility] Comment on above: Result Comment: <100 mg/dl OPTIMAL 100 - 129 mg/dl NEAR OR ABOVE OPTIMAL 130 - 159 mg/dl BORDERLINE HIGH 160 - 189 mg/dl HIGH >190 mg/dl VERY HIGH Performed By: #### C MREP #### [facility] [address] [address] [address] Aurelio Leavitt Triglyceride [Mass/Vol] 934 mg/dL Critically high <=150 [facility] Comment on above: Performed By: #### C MREP #### [facility] [address] [address] [address] Aurelio Leavitt VLDL CALC 186.8 mg/dL Normal [facility] Comment on above: Performed By: #### C MREP #### [facility] [address] [place] [address] Dr. Aurelio Leavitt LIVER PROFILEon 07-24-2022 Albumin [Mass/Vol] 4.2 g/dL Normal 3.4-5.0 [facility] Comment on above: Performed By: #### C MREP #### [facility] [address] [address] [address] Aurelio Leavitt Albumin/Globulin [Mass ratio] 1.2 {ratio} Normal [facility] Comment on above: Performed By: #### C MREP #### [facility] [address] [address] [address] Aurelio Leavitt ALP [Catalytic activity/Vol] 127 U/L Critically high 46-116 [facility] Comment on above: Performed By: #### C MREP #### [facility] [address] [address] [address] Aurelio Leavitt ALT [Catalytic activity/Vol] 33 U/L Normal 14-59 [facility] Comment on above: Performed By: #### C MREP #### [facility] [address] [address] [address] Aurelio Leavitt AST [Catalytic activity/Vol] 14 U/L Critically low 15-37 [facility] Comment on above: Performed By: #### C MREP #### [facility] [address] [address] [address] Aurelio Leavitt BILI, CONJUGATED 0.1 mg/dL Normal 0.0-0.2 [facility] Comment on above: Performed By: #### C MREP #### [facility] [address] [place] [address] Dr. Aurelio Leavitt Bilirubin [Mass/Vol] 0.2 mg/dL Normal 0.2-1.0 [facility] Comment on above: Performed By: #### C MREP #### [facility] [address] [address] [address] Aurelio Leavitt Globulin (S) [Mass/Vol] 3.5 g/dL Normal [facility] Comment on above: Performed By: #### C MREP #### [facility] [address] [place] [address] Dr. Aurelio Leavitt Protein [Mass/Vol] 7.7 g/dL Normal 6.4-8.2 [facility] Comment on above: Performed By: #### C MREP #### [facility] [address] [address] [address] Aurelio Leavitt PROF CHEM 8 (BAS METB)on Anion gap [Moles/Vol] 10.4 mmol/L Normal [facility] Comment on above: Performed By: #### C MREP #### [facility] [address] [place] [address] Dr. Aurelio Leavitt Calcium [Mass/Vol] 9.5 mg/dL Normal 8.5-10.1 [facility] Comment on above: Performed By: #### C MREP #### [facility] [address] [address] [address] Aurelio Leavitt Chloride [Moles/Vol] 97 mmol/L Critically low 98-107 [facility] Comment on above: Performed By: #### C MREP #### [facility] [address] [address] [address] Aurelio Leavitt CO2 [Moles/Vol] 30.3 mmol/L Normal 21.0-32.0 [facility] Comment on above: Performed By: #### C MREP #### [facility] [address] [address] [address] Aurelio Leavitt Creatinine [Mass/Vol] 0.62 mg/dL Normal 0.55-1.02 [facility] Comment on above: Performed By: #### C MREP #### [facility] [address] [address] [address] Aurelio Leavitt EGFR-AF [place] 60 mL/min/1.73m2 Normal >=60 [facility] Comment on above: Performed By: #### C MREP #### [facility] [address] [address] [address] Aurelio Leavitt EGFR-NON AF [place] 60 mL/min/1.73m2 Normal >=60 [facility] Comment on above: Performed By: #### C MREP #### [facility] [address] [address] [address] Aurelio Leavitt Glucose [Mass/Vol] 252 mg/dL Critically high 74-106 [facility] Comment on above: Performed By: #### C MREP #### [facility] [address] [address] [address] Aurelio Leavitt Potassium [Moles/Vol] 3.7 mmol/L Normal 3.5-5.1 [facility] Comment on above: Performed By: #### C MREP #### [facility] [address] [address] [address] Aurelio Leavitt Sodium [Moles/Vol] 134 mmol/L Critically low 136-145 [facility] Comment on above: Performed By: #### C MREP #### [facility] [address] [address] [address] Aurelio Leavitt Urea nitrogen [Mass/Vol] 13.0 mg/dL Normal 7.0-18.0 [facility] Comment on above: Performed By: #### C MREP #### [facility] [address] [place] [address] Dr. Aurelio Leavitt Urea nitrogen/Creatinine [Mass ratio] 21.0 mg/mg Normal [facility] Comment on above: Performed By: #### C MREP #### [facility] [address] [address] [address] Aurelio Leavitt TSHon 07-24-2022 TSH 2.102 uIU/mL Normal 0.358-3.740 [facility] Comment on above: Performed By: #### C MREP #### [facility] [address] [place] [address] Dr. Aurelio Leavitt US CHESTon 07-10-2022 US [...] by: AVINASH SERRATO Date: 2022-07-10 16:41 Normal [facility] NM STRESS/REST MULTIon 06-26 NM STRESS/REST MULTI Patient: BOB ZENG Exam Date: 06/26/2022 : 1975 Gender:F Ordering : DR JOSH OCHOA . Admission #: [id number] Family : Order #: [id number] CLICK HERE TO VIEW EXAM RADIOLOGY REPORT [...] OF STUDY: Good. PERFUSION DEFECT: LOCATION: Mid-anterior. [place]. SIZE: Small (1-2 segments). SEVERITY: Mild. TYPE: [...] Serrato MD on 06/27/2022 at 06:05 Normal [facility] XR TSPINE 3 VIEWSon 06-26-19 23 XR [...] BARTOLOME RODRIGUEZ Date: 2022-06-26 09:05 Normal [facility] ALBUMINon 03-29-2022 Albumin [Mass/Vol] 3.5 g/dL Normal 3.4-5.0 [facility] Comment on above: Performed By: #### C MREP #### [facility] [address] [place] [address] Dr. Aurelio Leavitt AMYLASEon 03-29-2022 Amylase [Catalytic activity/Vol] 27 U/L Normal 25-115 [facility] Comment on above: Performed By: #### A MY, LIPA, CMADM #### [facility] [address], [place] [address] Dr. Aurelio Leavitt Albumin [Mass/volume] in Ser um or PlasmaOrdered By: Marie Elias on 03-29-2022 Albumin [Mass/Vol] 3.5 g/dL 3.2-5.5 [facility] CARDIAC FANNY 3-6on 2 CK [Catalytic activity/Vol] 107 U/L Normal 26-192 [facility] Comment on above: Performed By: #### C MREP #### [facility] [address] [address] [address] Aurelio Leavitt CK.MB [Mass/Vol] 1.04 ng/mL Normal <=3.60 [facility] Comment on above: Performed By: #### C MREP #### [facility] [address] [address] [address] Aurelio Leavitt HSTROP 5.8 pg/mL Normal 4.0-51.3 [facility] Comment on above: Result Comment: CUT- OFF POINTS HAVE BEEN ESTABLISHED BASED ON THE FOURTH UNIVERSAL DEFINITIONS OF MYOCARDIAL INFARCTION. THE UPPER REFERENCE LIMIT (URL) OF TROPONIN, DEFINED THE 99TH PERCENTILE OF cTnI DISTRIBUTION IN A REFERENCE POPULATION, HAS BEEN CONFIRMED THE DECISION THRESHOLD FOR [place] DIAGNOSIS. Performed By: #### C MREP #### [facility] [address] [address] [address] Aurelio Leavitt CARDIAC FANNY ADMITon 022 CK [Catalytic activity/Vol] 96 U/L Normal 26-192 [facility] Comment on above: Performed By: #### A MY, LIPA, CMADM #### [facility] [address] [address] [address] Aurelio Leavitt CK.MB [Mass/Vol] 0.89 ng/mL Normal <=3.60 [facility] Comment on above: Performed By: #### A MY, LIPA, CMADM #### [facility] [address] [address] [address] Aurelio Leavitt HSTROP 5.7 pg/mL Normal 4.0-51.3 [facility] Comment on above: Result Comment: CUT- OFF POINTS HAVE BEEN ESTABLISHED BASED ON THE FOURTH UNIVERSAL DEFINITIONS OF MYOCARDIAL INFARCTION. THE UPPER REFERENCE LIMIT (URL) OF TROPONIN, DEFINED THE 99TH PERCENTILE OF cTnI DISTRIBUTION IN A REFERENCE POPULATION, HAS BEEN CONFIRMED THE DECISION THRESHOLD FOR [place] DIAGNOSIS. Performed By: #### A PACO LIPA, CMADM #### [facility] [address] [place] [address] Dr. Aurelio Leavitt ROMULO 24 ng/mL Normal 9-82 [facility] Comment on above: Performed By: #### A PACO LIPA, CMADM #### [facility] [address] [place] [address] Dr. Aurelio Leavitt CBC AUTO DIFFon 03-29-2022 BASO # 0.1 103/ul Normal 0.0-0.1 [facility] Comment on above: Performed By: #### C BC #### [facility] [address] [place] [address] Dr. Aurelio Leavitt Basophils/100 WBC (Bld) 1.1 % Normal 0.2-2.0 [facility] Comment on above: Performed By: #### C BC #### [facility] [address] [place] [address] Dr. Aurelio Leavitt EO # 0.2 103/ul Normal 0.0-0.7 [facility] Comment on above: Performed By: #### C BC #### [facility] [address] [place] [address] Dr. Aurelio Leavitt Eosinophils/100 WBC (Bld) 2.9 % Normal 0.9-7.0 [facility] Comment on above: Performed By: #### C BC #### [facility] [address] [place] [address] Dr. Aurelio Leavitt Erythrocyte distribution width (RBC) [Ratio] 13.2 % Normal 11.0-15.0 [facility] Comment on above: Performed By: #### C BC #### [facility] [address] [place] [address] Dr. Aurelio Leavitt Hematocrit (Bld) [Volume fraction] 45.2 % Normal 36.0-48.0 [facility] Comment on above: Performed By: #### C BC #### [facility] [address] [place] [address] Dr. Aurelio Leavitt Hemoglobin (Bld) [Mass/Vol] 16.3 g/dL Critically high 12.0-16.0 [facility] Comment on above: Performed By: #### C BC #### [facility] [address] [place] [address] Dr. Aurelio Leavitt IG # 0.02 10e3/ul Normal 0.00-0.03 [facility] Comment on above: Performed By: #### C BC #### [facility] [address] [place] [address] Dr. Aurelio Leavitt IG % 0.3 % Normal 0.0-0.5 [facility] Comment on above: Performed By: #### C BC #### [facility] [address] [place] [address] Dr. Aurelio Leavitt LYMPH # 3.8 103/ul Normal 1.2-3.8 [facility] Comment on above: Performed By: #### C BC #### [facility] [address] [place] [address] Dr. Aurelio Leavitt Lymphocytes/100 WBC (Bld) 51.4 % Normal 20.5-60.0 [facility] Comment on above: Performed By: #### C BC #### [facility] [address] [place] [address] Dr. Aurelio Leavitt MANUAL DIFF REQ NO Normal [facility] Comment on above: Performed By: #### C BC #### [facility] [address] [place] [address] Dr. Aurelio Leavitt MCH (RBC) [Entitic mass] 32.8 pg Normal 26.7-34.0 [facility] Comment on above: Performed By: #### C BC #### [facility] [address] [place] [address] Dr. Aurelio Leavitt MCHC (RBC) [Mass/Vol] 36.1 g/dL Critically high 29.9-35.2 [facility] Comment on above: Performed By: #### C BC #### [facility] [address] [address] [address] Aurelio Leavitt MCV (RBC) [Entitic vol] 90.9 fL Normal 81.0-99.0 [facility] Comment on above: Performed By: #### C BC #### [facility] [address] [address] [address] Aurelio Leavitt MONO # 0.6 103/ul Normal 0.3-0.8 [facility] Comment on above: Performed By: #### C BC #### [facility] [address] [place] [address] Dr. Aurelio Leavitt Monocytes/100 WBC (Bld) 8.0 % Normal 1.7-12.0 [facility] Comment on above: Performed By: #### C BC #### [facility] [address] [place] [address] Dr. Aurelio Leavitt NEUT # 2.7 103/ul Normal 1.4-6.5 [facility] Comment on above: Performed By: #### C BC #### [facility] [address] [place] [address] Dr. Aurelio Leavitt Neutrophils/100 WBC (Bld) 36.3 % Critically low 43.0-75.0 [facility] Comment on above: Performed By: #### C BC #### [facility] [address] [place] [address] Dr. Aurelio Leavitt Platelet mean volume (Bld) [Entitic vol] 11.5 fL Normal 9.5-13.5 [facility] Comment on above: Performed By: #### C BC #### [facility] [address] [place] [address] Dr. Aurelio Leavitt PLT 246 103/ul Normal 150-450 [facility] Comment on above: Performed By: #### C BC #### [facility] [address] [place] [address] Dr. Aurelio Leavitt RBC 4.97 106/ul Normal 4.20-5.40 [facility] Comment on above: Performed By: #### C BC #### [facility] [address] [address] [address] Aurelio Leavitt WBC 7.4 103/ul Normal 4.0-11.0 [facility] Comment on above: Performed By: #### C BC #### [facility] [address] [place] [address] Dr. Aurelio Leavitt Creatinine and Glomerular fi ltration rate.predicted panel (S/P/Bld)Ordered By: Marie Elias on 03-29-2022 Creatinine [Mass/Vol] 0.53 mg/dL 0.44-1.03 [facility] ER URINE PROFILEon 2 Bilirubin Ql (U) Negative Normal NEGATIVE [facility] Comment on above: Performed By: #### L ACT #### [facility] [address] [place] [address] Dr. Aurelio Leavitt Clarity (U) CLEAR Normal CLEAR [facility] Comment on above: Performed By: #### L ACT #### [facility] [address] [address] [address] Aurelio Leavitt Color (U) LT. YELLOW Normal YELLOW [facility] Comment on above: Performed By: #### L ACT #### [facility] [address] [place] [address] Dr. Aurelio BRADY A micrscopic examination will be performed if indicated. Normal [facility] Comment on above: Performed By: #### L ACT #### [facility] [address] [place] [address] Dr. Aurelio Leavitt Glucose Ql (U) >1000 Abnormal NEGATIVE [facility] Comment on above: Performed By: #### L ACT #### [facility] [address] [address] [address] Aurelio Leavitt Hemoglobin Ql (U) TRACE-LYSED Abnormal NEGATIVE [facility] Comment on above: Performed By: #### L ACT #### [facility] [address] [place] [address] Dr. Aurelio Leavitt Ketones Ql (U) 15 mg/dl Abnormal NEGATIVE [facility] Comment on above: Performed By: #### L ACT #### [facility] [address] [place] [address] Dr. Aurelio Leavitt LEUKOCYTES Negative Normal NEGATIVE [facility] Comment on above: Performed By: #### L ACT #### [facility] [address] [place] [address] Dr. Aurelio Leavitt Nitrite Ql (U) Negative Normal NEGATIVE [facility] Comment on above: Performed By: #### L ACT #### [facility] [address] [place] [address] Dr. Aurelio Leavitt pH (U) 5.5 [pH] Normal 5-9 [facility] Comment on above: Performed By: #### L ACT #### [facility] [address] [place] [address] Dr. Aurelio Leavitt SPEC GRAVITY 1.020 Normal 1.005-<=1.02 5 [facility] Comment on above: Performed By: #### L ACT #### [facility] [address] [place] [address] Dr. Aurelio Leavitt UA PROTEIN Negative Normal NEGATIVE/ TRACE [facility] Comment on above: Performed By: #### L ACT #### [facility] [address] [place] [address] Dr. Aurelio Leavitt UR MICRO IND INDICATED Normal [facility] Comment on above: Performed By: #### L ACT #### [facility] [address] [place] [address] Dr. Aurelio Leavitt Urobilinogen Qn (U) 0.2 {Dalia'U}/dL Normal 0.2 - 1. 0 [facility] Comment on above: Performed By: #### L ACT #### [facility] [address] [place] [address] Dr. Aurelio Leavitt Estimated glomerular filtrat ion rate (GFR) non- AmericanOrdered By: Marie Elias on 03-29-2022 GFR/1.73 sq M.predicted among non-blacks MDRD (S/P/Bld) [Vol rate/Area] > 60 mL/Min [facility] Globulin Calc (S) [Mass/Vol] Ordered By: Marie Elias on 11-17-2022 Globulin (S) [Mass/Vol] 2.7 g/dL [facility] LACTATE/LACTIC ACIDon 2021 Lactate [Moles/Vol] 1.0 mmol/L Normal 0.4-1.9 [facility] Comment on above: Performed By: #### L ACT #### [facility] [address] [address] [address] Aurelio Leavitt LIPASEon 03-29-2022 Lipase [Catalytic activity/Vol] 139.0 U/L Normal 73.0-393.0 [facility] Comment on above: Performed By: #### A MY, LIPA, CMADM #### [facility] [address] [address] [address] Aurelio Leavitt LIVER PROFILE SEND OUTon Albumin, Serum LIPG Normal [facility] Comment on above: Result Comment: Test not performed. Specimen is grossly lipemic. Performed By: #### L ACT #### [facility] [address] [address] [address] Aurelio Leavitt ALP [Catalytic activity/Vol] 126 U/L Critically high 44-121 [facility] Comment on above: Performed By: #### L ACT #### [facility] [address] [address] [address] Aurelio Leavitt ALT [Catalytic activity/Vol] 66 U/L Critically high 0-32 [facility] Comment on above: Performed By: #### L ACT #### [facility] [address] [address] [address] Aurelio Leavitt AST [Catalytic activity/Vol] 61 U/L Critically high 0-40 [facility] Comment on above: Performed By: #### L ACT #### [facility] [address] [address] [address] Aurelio Leavitt Bilirubin [Mass/Vol] mg/dL Normal 0.0-1.2 [facility] Comment on above: Performed By: #### L ACT #### [facility] [address] [address] [address] Aurelio Leavitt Bilirubin, Direct LIPG Normal [facility] Comment on above: Result Comment: Test not performed. Specimen is grossly lipemic. Performed By: #### L ACT #### [facility] [address] [address] [address] Aurelio Leavitt Protein [Mass/Vol] 6.5 g/dL Normal 6.0-8.5 [facility] Comment on above: Performed By: #### L ACT #### [facility] [address] [address] [address] Aurelio Leavitt Laboratory - Chemistry and C hemistry - challengeOrdered By: Marie Elias on 03-29-2022 Lipase [Catalytic activity/Vol] 42.0 U/L [facility] No Panel InformationOrdered By: Marie Elias on 03-29-2022 Estimated GFR () > 60 mL/Min [facility] Comment on above: GFR estimated refere nce range: According to KDOQI guidelines, <60 ml/min/1.73m2 is sufficient to diagnose a patient with chronic kidney disease. Pharmacy Creatinine Clearance (Chem N/A [facility] PROF CHEM 8 (BAS METB)on Anion gap [Moles/Vol] 15.8 mmol/L Normal [facility] Comment on above: Performed By: #### L ACT #### [facility] [address] [place] [address] Dr. Aurelio Leavitt Calcium [Mass/Vol] 8.8 mg/dL Normal 8.5-10.1 [facility] Comment on above: Performed By: #### L ACT #### [facility] [address] [address] [address] Aurelio Leavitt Chloride [Moles/Vol] 101 mmol/L Normal 98-107 [facility] Comment on above: Performed By: #### L ACT #### [facility] [address] [address] [address] Aurelio Leavitt CO2 [Moles/Vol] 21.3 mmol/L Normal 21.0-32.0 [facility] Comment on above: Performed By: #### L ACT #### [facility] [address] [address] [address] Aurelio Leavitt Creatinine [Mass/Vol] 0.53 mg/dL Critically low 0.55-1.02 [facility] Comment on above: Performed By: #### L ACT #### [facility] [address] [address] [address] Aurelio Leavitt EGFR-AF [place] >60 Normal >=60 [facility] Comment on above: Performed By: #### L ACT #### [facility] [address] [address] [address] Aurelio Leavitt EGFR-NON AF [place] >60 Normal >=60 [facility] Comment on above: Performed By: #### L ACT #### [facility] [address] [address] [address] Aurelio Leavitt Glucose [Mass/Vol] 347 mg/dL Critically high 74-106 [facility] Comment on above: Performed By: #### L ACT #### [facility] [address] [address] [address] Aurelio Leavitt Potassium [Moles/Vol] 4.1 mmol/L Normal 3.5-5.1 [facility] Comment on above: Performed By: #### L ACT #### [facility] [address] [address] [address] Aurelio Leavitt Sodium [Moles/Vol] 134 mmol/L Critically low 136-145 [facility] Comment on above: Performed By: #### L ACT #### [facility] [address] [address] [address] Aurelio Leavitt Urea nitrogen [Mass/Vol] 8.0 mg/dL Normal 7.0-18.0 [facility] Comment on above: Performed By: #### L ACT #### [facility] [address] [address] [address] Aurelio Leavitt Urea nitrogen/Creatinine [Mass ratio] 15.1 mg/mg Normal [facility] Comment on above: Performed By: #### L ACT #### [facility] [address] [address] [address] Aurelio Leavitt PROF CHEM 8 (BAS METB) SEND OUTon 03-29-2022 Calcium [Mass/Vol] 9.3 mg/dL Normal 8.7-10.2 [facility] Comment on above: Performed By: #### L ACT #### [facility] [address] [address] [address] Aurelio Leavitt Chloride [Moles/Vol] 92 mmol/L Critically low 96-106 [facility] Comment on above: Performed By: #### L ACT #### [facility] [address] [address] [address] Aurelio Leavitt CO2 [Moles/Vol] 27 mmol/L Normal 20-29 [facility] Comment on above: Performed By: #### L ACT #### [facility] [address] [address] [address] Aurelio Leavitt Creatinine [Mass/Vol] 1.89 mg/dL Critically high 0.57-1.00 [facility] Comment on above: Performed By: #### L ACT #### [facility] [address] [place] [address] Dr. Aurelio Leavitt GFR/1.73 sq M.predicted among non-blacks MDRD (S/P/Bld) [Vol rate/Area] 33 mL/min/{1.73_m2} Critically low >59 [facility] Comment on above: Performed By: #### L ACT #### [facility] [address] [place] [address] Dr. Aurelio Leavitt Glucose [Mass/Vol] 342 mg/dL Critically high 70-99 [facility] Comment on above: Performed By: #### L ACT #### [facility] [address] [place] [address] Dr. Aurelio Leavitt Potassium [Moles/Vol] 4.2 mmol/L Normal 3.5-5.2 [facility] Comment on above: Result Comment: Spec imen received hemolyzed. Value may be increased by hemolysis. Clinical correlation indicated. Performed By: #### L ACT #### [facility] [address] [place] [address] Dr. Aurelio Leavitt Sodium [Moles/Vol] 129 mmol/L Critically low 134-144 [facility] Comment on above: Performed By: #### L ACT #### [facility] [address] [place], [place] [address] Dr. Aurelio Leavitt Urea nitrogen [Mass/Vol] 8 mg/dL Normal 6- [facility] Comment on above: Performed By: #### L ACT #### [facility] [address], [place] [address] Dr. Aurelio Leavitt Urea nitrogen/Creatinine [Mass ratio] 4 mg/mg Critically low 9 [facility] Comment on above: Performed By: #### L ACT #### [facility] [address], [place] [address] Dr. Aurelio Leavitt Protein [Mass/volume] in Ser um or PlasmaOrdered By: Marie Elias on 03-29-2022 Protein [Mass/Vol] 6.2 g/dL 6.1-7.9 [facility] Serum or plasma alanine regalado otransferase measurement without P-5'-P (enzymatic activiOrdered By: Marie Elias on 03-29-2022 ALT No additional P-5'-P [Catalytic activity/Vol] See comment 10-60 [facility] Comment on above: Specimen hemolyzed, redraw requested Serum or plasma albumin/glob ulin mass ratioOrdered By: Marie Elias on 03-29-2022 Albumin/Globulin [Mass ratio] 1.3 {ratio} [facility] Serum or plasma alkaline thomas sphatase measurement (enzymatic activity/volume)Ordered By: Marie Elias on 03-29-2022 ALP [Catalytic activity/Vol] See comment 32-92 [facility] Comment on above: Specimen hemolyzed, redraw requested Serum or plasma amylase lexus urement (enzymatic activity/volume)Ordered By: Marie Elias on 03-29-2022 Amylase [Catalytic activity/Vol] 29 U/L 28-100 [facility] Serum or plasma anion gap de terminationOrdered By: Marie Elias on 03-29-2022 Anion gap [Moles/Vol] TNP [facility] Comment on above: Test not performed Serum or plasma aspartate am inotransferase measurement (enzymatic activity/volume)Ordered By: Marie Elias on 03-29-2022 AST [Catalytic activity/Vol] See comment 10-42 [facility] Comment on above: Specimen hemolyzed, redraw requested Serum or plasma calcium lexus urement (mass/volume)Ordered By: Marie Elias on 03-29-2022 Calcium [Mass/Vol] 8.8 mg/dL 8.2-10.2 [facility] Serum or plasma chloride sarai surement (moles/volume)Ordered By: Marie Elias on 03-29-2022 Chloride [Moles/Vol] 101 mmol/L 95-114 [facility] Serum or plasma glucose lexus urement (mass/volume)Ordered By: Marie Elias on 03-29-2022 Glucose [Mass/Vol] 347 mg/dL 70-100 [facility] Comment on above: ADA recommended refe rence rangeRandom Glucose Reference Range is dependent on time and content of last meal. Glucose of more than 200 mg/dL in a nonstressed, ambulatory subject supports the diagnosis of Diabetes Mellitus. Serum or plasma potassium me asurement (moles/volume)Ordered By: Marie Elias on 03-29-2022 Potassium [Moles/Vol] See comment 3.5-5.1 [facility] Comment on above: Specimen hemolyzed, redraw requested Serum or plasma sodium measu rement (moles/volume)Ordered By: Marie Elias on 03-29-2022 Sodium [Moles/Vol] 134 mmol/L 136-146 [facility] Serum or plasma total biliru bin measurement (mass/volume)Ordered By: Marie Elias on 03-29-2022 Bilirubin [Mass/Vol] See comment 0.3-1.2 [facility] Comment on above: Specimen hemolyzed, redraw requested Serum or plasma total carbon dioxide measurement (moles/volume)Ordered By: Marie Elias on 03-29-2022 CO2 [Moles/Vol] 21.3 mmol/L 22.0-30.0 [facility] [facility] Serum or plasma urea nitroge n measurement (mass/volume)Ordered By: Marie Elias on 03-29-2022 Urea nitrogen [Mass/Vol] 8 mg/dL 9-23 [facility] URINE MICROSCOPIC ONLYon BACTERIA TRACE Abnormal NONE SEEN [facility] Comment on above: Performed By: #### L ACT #### [facility] [address] [address] [address] Aurelio Leavitt Bacteria identified Cx Nom (U) NOT INDICATED Normal [facility] Comment on above: Performed By: #### L ACT #### [facility] [address] [address] [address] Aurelio Leavitt CAST NONE SEEN Normal NONE SEEN [facility] Comment on above: Performed By: #### L ACT #### [facility] [address] [address] [address] Aurelio Leavitt Crystals LM Nom (Urine sed) NONE SEEN Normal NONE SEEN [facility] Comment on above: Performed By: #### L ACT #### [facility] [address] [place] [address] Dr. Aurelio Leavitt Epithelial cells LM Ql (Urine sed) FEW Abnormal NONE SEEN /RARE [facility] Comment on above: Performed By: #### L ACT #### [facility] [address] [address] [address] Aurelio Leavitt MUCOUS NONE SEEN Normal NONE SEEN [facility] Comment on above: Performed By: #### L ACT #### [facility] [address] [place] [address] Dr. Aurelio Leavitt RBC 2-5 Abnormal 0-2 [facility] Comment on above: Performed By: #### L ACT #### [facility] [address] [place] [address] Dr. Aurelio Leavitt WBC 0-2 Abnormal NONE SEEN [facility] Comment on above: Performed By: #### L ACT #### [facility] [address] [place] [address] Dr. Aurelio Leavitt Urine lactic acid measuremen tOrdered By: Marie Elias on 03-29-2022 Lactate (U) [Moles/Vol] 1.0 mmol/L 0.5-2.2 [facility] XR ABD FLAT UP_PA Emanuel 03-29 [...] by: JESSICA BOSTON Date: 2022-03-29 02:02 Normal [facility] AMYLASEon 03-28-2022 Amylase [Catalytic activity/Vol] 27 U/L Normal 25-115 [facility] Comment on above: Performed By: #### A CETON #### [facility] [address] [place] [address] Dr. Aurelio Leavitt CBC AUTO DIFFon 03-28-2022 BASO # 0.1 103/ul Normal 0.0-0.1 [facility] Comment on above: Performed By: #### L ACT #### [facility] [address] [place] [address] Dr. Aurelio Leavitt Basophils/100 WBC (Bld) 0.7 % Normal 0.2-2.0 [facility] Comment on above: Performed By: #### L ACT #### [facility] [address] [place] [address] Dr. Aurelio Leavitt EO # 0.2 103/ul Normal 0.0-0.7 [facility] Comment on above: Performed By: #### L ACT #### [facility] [address] [address] [address] Aurelio Leavitt Eosinophils/100 WBC (Bld) 1.9 % Normal 0.9-7.0 [facility] Comment on above: Performed By: #### L ACT #### [facility] [address] [place] [address] Dr. Aurelio Leavitt Erythrocyte distribution width (RBC) [Ratio] 13.3 % Normal 11.0-15.0 [facility] Comment on above: Performed By: #### L ACT #### [facility] [address] [place] [address] Dr. Aurelio Leavitt Hematocrit (Bld) [Volume fraction] 45.1 % Normal 36.0-48.0 [facility] Comment on above: Performed By: #### L ACT #### [facility] [address] [place] [address] Dr. Aurelio Leavitt Hemoglobin (Bld) [Mass/Vol] 16.8 g/dL Critically high 12.0-16.0 [facility] Comment on above: Performed By: #### L ACT #### [facility] [address] [place] [address] Dr. Aurelio Leavitt IG # 0.03 10e3/ul Normal 0.00-0.03 [facility] Comment on above: Performed By: #### L ACT #### [facility] [address] [place] [address] Dr. Aurelio Leavitt IG % 0.3 % Normal 0.0-0.5 [facility] Comment on above: Performed By: #### L ACT #### [facility] [address] [place] [address] Dr. Aurelio Leavitt LYMPH # 3.2 103/ul Normal 1.2-3.8 [facility] Comment on above: Performed By: #### L ACT #### [facility] [address] [place] [address] Dr. Aurelio Leavitt Lymphocytes/100 WBC (Bld) 27.9 % Normal 20.5-60.0 [facility] Comment on above: Performed By: #### L ACT #### [facility] [address] [place] [address] Dr. Aurelio Leavitt MANUAL DIFF REQ NO Normal [facility] Comment on above: Performed By: #### L ACT #### [facility] [address] [place] [address] Dr. Aurelio Leavitt MCH (RBC) [Entitic mass] 33.7 pg Normal 26.7-34.0 [facility] Comment on above: Performed By: #### L ACT #### [facility] [address] [place] [address] Dr. Aurelio Leavitt MCHC (RBC) [Mass/Vol] 37.3 g/dL Critically high 29.9-35.2 [facility] Comment on above: Performed By: #### L ACT #### [facility] [address] [address] [address] Aurelio Leavitt MCV (RBC) [Entitic vol] 90.4 fL Normal 81.0-99.0 [facility] Comment on above: Performed By: #### L ACT #### [facility] [address] [place] [address] Dr. Aurelio Leavitt MONO # 1.1 103/ul Critically high 0.3-0.8 [facility] Comment on above: Performed By: #### L ACT #### [facility] [address] [place] [address] Dr. Aurelio Leavitt Monocytes/100 WBC (Bld) 9.5 % Normal 1.7-12.0 [facility] Comment on above: Performed By: #### L ACT #### [facility] [address] [place] [address] Dr. Aurelio Leavitt NEUT # 6.8 103/ul Critically high 1.4-6.5 [facility] Comment on above: Performed By: #### L ACT #### [facility] [address] [place] [address] Dr. Aurelio Leavitt Neutrophils/100 WBC (Bld) 59.7 % Normal 43.0-75.0 [facility] Comment on above: Performed By: #### L ACT #### [facility] [address] [place] [address] Dr. Aurelio Leavitt Platelet mean volume (Bld) [Entitic vol] 12.1 fL Normal 9.5-13.5 [facility] Comment on above: Performed By: #### L ACT #### [facility] [address] [place] [address] Dr. Aurelio Leavitt PLT 247 103/ul Normal 150-450 [facility] Comment on above: Performed By: #### L ACT #### [facility] [address] [place] [address] Dr. Aurelio Leavitt RBC 4.99 106/ul Normal 4.20-5.40 [facility] Comment on above: Performed By: #### L ACT #### [facility] [address] [place] [address] Dr. Aurelio Leavitt WBC 11.3 103/ul Critically high 4.0-11.0 [facility] Comment on above: Performed By: #### L ACT #### [facility] [address] [place] [address] Dr. Aurelio Leavitt LIPASEon 03-28-2022 Lipase [Catalytic activity/Vol] 163.0 U/L Normal 73.0-393.0 [facility] Comment on above: Performed By: #### A CETON #### [facility] [address] [place] [address] Dr. Aurelio Leavitt GLYCOHEMOGLOBIN A1Con 2021 ADA RECOMMENDATION SEE BELOW Normal [facility] Comment on above: Result Comment: ADA RECOMMENDED LIMIT 4.0 - 6.0 ADA THERAPEUTIC TARGET < 7.0 ACTION SUGGESTED > 7.0 Performed By: #### A CETON #### [facility] [address] [place] [address] Dr. Aurelio Leavitt Glucose [Mass/Vol] 232 mg/dL Normal [facility] Comment on above: Performed By: #### A CETON #### [facility] [address] [place] [address] Dr. Aurelio Leavitt HbA1c (Bld) [Mass fraction] 9.7 % Critically high 4.5-6.2 [facility] Comment on above: Performed By: #### A CETON #### [facility] [address] [place] [address] Dr. Aurelio Leavitt ACETONE SERUMon 11-15-2021 ACETONE Negative Normal NEGATIVE [facility] Comment on above: Performed By: #### A CETON #### [facility] [address] [place] [address] Dr. Aurelio Leavitt CBC AUTO DIFFon 11-15-2021 BASO # 0.1 103/ul Normal 0.0-0.1 [facility] Comment on above: Performed By: #### A CETON #### [facility] [address] [place] [address] Dr. Aurelio Leavitt Basophils/100 WBC (Bld) 0.9 % Normal 0.2-2.0 [facility] Comment on above: Performed By: #### A CETON #### [facility] [address] [place] [address] Dr. Aurelio Leavitt EO # 0.2 103/ul Normal 0.0-0.7 [facility] Comment on above: Performed By: #### A CETON #### [facility] [address] [place] [address] Dr. Aurelio Leavitt Eosinophils/100 WBC (Bld) 1.7 % Normal 0.9-7.0 [facility] Comment on above: Performed By: #### A CETON #### [facility] [address] [place] [address] Dr. Aurelio Leavitt Erythrocyte distribution width (RBC) [Ratio] 13.5 % Normal 11.0-15.0 [facility] Comment on above: Performed By: #### A CETON #### [facility] [address] [place] [address] Dr. Aurelio Leavitt Hematocrit (Bld) [Volume fraction] 44.4 % Normal 36.0-48.0 [facility] Comment on above: Performed By: #### A CETON #### [facility] [address] [place] [address] Dr. Aurelio Leavitt Hemoglobin (Bld) [Mass/Vol] 15.4 g/dL Normal 12.0-16.0 [facility] Comment on above: Performed By: #### A CETON #### [facility] [address] [place] [address] Dr. Aurelio Leavitt IG # 0.09 10e3/ul Critically high 0.00-0.03 [facility] Comment on above: Performed By: #### A CETON #### [facility] [address] [address] [address] Aurelio Leavitt IG % 0.8 % Critically high 0.0-0.5 [facility] Comment on above: Performed By: #### A CETON #### [facility] [address] [address] [address] Aurelio Leavitt LYMPH # 3.8 103/ul Normal 1.2-3.8 [facility] Comment on above: Performed By: #### A CETON #### [facility] [address] [place] [address] Dr. Aurelio Leavitt Lymphocytes/100 WBC (Bld) 35.1 % Normal 20.5-60.0 [facility] Comment on above: Performed By: #### A CETON #### [facility] [address] [place] [address] Dr. Aurelio Leavitt MANUAL DIFF REQ NO Normal [facility] Comment on above: Performed By: #### A CETON #### [facility] [address] [place] [address] Dr. Aurelio Leavitt MCH (RBC) [Entitic mass] 32.0 pg Normal 26.7-34.0 [facility] Comment on above: Performed By: #### A CETON #### [facility] [address] [place] [address] Dr. Aurelio Leavitt MCHC (RBC) [Mass/Vol] 34.7 g/dL Normal 29.9-35.2 [facility] Comment on above: Performed By: #### A CETON #### [facility] [address] [place] [address] Dr. Aurelio Leavitt MCV (RBC) [Entitic vol] 92.1 fL Normal 81.0-99.0 [facility] Comment on above: Performed By: #### A CETON #### [facility] [address] [place] [address] Dr. Aurelio Leavitt MONO # 1.0 103/ul Critically high 0.3-0.8 [facility] Comment on above: Performed By: #### A CETON #### [facility] [address] [place] [address] Dr. Aurelio Leavitt Monocytes/100 WBC (Bld) 9.0 % Normal 1.7-12.0 [facility] Comment on above: Performed By: #### A CETON #### [facility] [address] [place] [address] Dr. Aurelio Leavitt NEUT # 5.6 103/ul Normal 1.4-6.5 [facility] Comment on above: Performed By: #### A CETON #### [facility] [address] [place] [address] Dr. Aurelio Leavitt Neutrophils/100 WBC (Bld) 52.5 % Normal 43.0-75.0 [facility] Comment on above: Performed By: #### A CETON #### [facility] [address] [place] [address] Dr. Aurelio Leavitt Platelet mean volume (Bld) [Entitic vol] 12.3 fL Normal 9.5-13.5 [facility] Comment on above: Performed By: #### A CETON #### [facility] [address] [place] [address] Dr. Aurelio Leavitt PLT 304 103/ul Normal 150-450 [facility] Comment on above: Performed By: #### A CETON #### [facility] [address] [place] [address] Dr. Aurelio Leavitt RBC 4.94 106/ul Normal 4.20-5.40 [facility] Comment on above: Performed By: #### A CETON #### [facility] [address] [place] [address] Dr. Aurelio Leavitt WBC 11.0 103/ul Normal 4.0-11.0 [facility] Comment on above: Performed By: #### A CETON #### [facility] [address] [place] [address] Dr. Aurelio Leavitt Covid-19 PCR ([facility])on SARS-CoV-2 (COVID-19) RNA GABY+probe Ql (Unsp spec) Detected Critically abnormal NOT DETECTED [facility] Comment on above: Result Comment: This test is not yet approved or cleared by the [place] FDA. When there are no FDA-approved or cleared tests available, and other criteria are met, FDA can make tests available under an emergency access mechanism called an Emergency Use Authorization (EUA). The EUA for this test is supported by the [place] of Health and Human Service's declaration that [...] Performed By: #### A CETON #### [facility] [address] [place] [address] Dr. Aurelio Leavitt D-DIMERon 11-15-2021 D-DIMER 0.30 mg/L FEU Normal <=0.59 [facility] Comment on above: Performed By: #### A CETON #### [facility] [address] [place] [address] Dr. Aurelio Leavitt D-DIMER COMMENTS SEE BELOW Normal [facility] Comment on above: Result Comment: Incr [...] Performed By: #### A CETON #### [facility] [address] [place] [address] Dr. Aurelio Leavitt PROF 14(COMP METB)on 022 Albumin [Mass/Vol] 3.1 g/dL Critically low 3.4-5.0 [facility] Comment on above: Performed By: #### H STROPN, CMP #### [facility] [address] [place], [place] [address] Dr. Aurelio Leavitt Albumin/Globulin [Mass ratio] 0.7 {ratio} Normal [facility] Comment on above: Performed By: #### H GUSPN, CMP #### [facility] [address] [address] [address] Aurelio Leavitt ALP [Catalytic activity/Vol] 130 U/L Critically high 46-116 [facility] Comment on above: Performed By: #### H STROPN, CMP #### [facility] [address] [place] [address] Dr. Aurelio Leavitt Anion gap [Moles/Vol] 16.1 mmol/L Normal [facility] Comment on above: Performed By: #### H GUSPN, CMP #### [facility] [address] [place] [address] Dr. Aurelio Leavitt AST [Catalytic activity/Vol] 11 U/L Critically low 15-37 [facility] Comment on above: Performed By: #### H ANANDA, CMP #### [facility] [address] [place] [address] Dr. Aurelio Leavitt Bilirubin [Mass/Vol] 1.0 mg/dL Normal 0.2-1.0 [facility] Comment on above: Performed By: #### H ANANDA, CMP #### [facility] [address] [place] [address] Dr. Aurleio Leavitt Calcium [Mass/Vol] 7.3 mg/dL Critically low 8.5-10.1 [facility] Comment on above: Performed By: #### H STROPN, CMP #### [facility] [address] [place] [address] Dr. Aurelio Leavitt Chloride [Moles/Vol] 94 mmol/L Critically low 98-107 [facility] Comment on above: Performed By: #### H STROPN, CMP #### [facility] [address] [place] [address] Dr. Aurelio Leavitt CO2 [Moles/Vol] 20.6 mmol/L Critically low 21.0-32.0 [facility] Comment on above: Performed By: #### H GUSPN, CMP #### [facility] [address] [address] [address] Aurelio Leavitt Creatinine [Mass/Vol] 0.57 mg/dL Normal 0.55-1.02 [facility] Comment on above: Performed By: #### H STROPN, CMP #### [facility] [address] [address] [address] Aurelio Leavitt EGFR-AF [place] >60 Normal >=60 [facility] Comment on above: Performed By: #### H STROPN, CMP #### [facility] [address] [address] [address] Aurelio Leavitt EGFR-NON AF [place] >60 Normal >=60 [facility] Comment on above: Performed By: #### H STROPN, CMP #### [facility] [address] [address] [address] Aurelio Leavitt Globulin (S) [Mass/Vol] 4.2 g/dL Normal [facility] Comment on above: Performed By: #### H STROZELDA, CMP #### [facility] [address] [address] [address] Aurelio Leavitt Glucose [Mass/Vol] 462 mg/dL Critically high 74-106 [facility] Comment on above: Performed By: #### H STROPN, CMP #### [facility] [address] [address] [address] Aurelio Leavitt Potassium [Moles/Vol] 4.7 mmol/L Normal 3.5-5.1 [facility] Comment on above: Performed By: #### H STROPN, CMP #### [facility] [address] [address] [address] Aurelio Leavitt Protein [Mass/Vol] 7.3 g/dL Normal 6.4-8.2 [facility] Comment on above: Performed By: #### H STROPN, CMP #### [facility] [address] [address] [address] Aurelio Leavitt Sodium [Moles/Vol] 126 mmol/L Critically low 136-145 [facility] Comment on above: Performed By: #### H STROPN, CMP #### [facility] [address] [address] [address] Aurelio Leavitt Urea nitrogen [Mass/Vol] 14.0 mg/dL Normal 7.0-18.0 [facility] Comment on above: Performed By: #### H GUSPN, CMP #### [facility] [address] [place], [place] [address] Dr. Aurelio Leavitt Urea nitrogen/Creatinine [Mass ratio] 24.6 mg/mg Normal [facility] Comment on above: Performed By: #### H GUSPN, CMP #### [facility] [address] [address] [address] Aurelio Leavitt TROPONIN, HIGH SENSITIVITYon 11-15-2021 HSTROP 5.3 pg/mL Normal 4.0-51.3 [facility] Comment on above: Result Comment: CUT- OFF POINTS HAVE BEEN ESTABLISHED BASED ON THE FOURTH UNIVERSAL DEFINITIONS OF MYOCARDIAL INFARCTION. THE UPPER REFERENCE LIMIT (URL) OF TROPONIN, DEFINED THE 99TH PERCENTILE OF cTnI DISTRIBUTION IN A REFERENCE POPULATION, HAS BEEN CONFIRMED THE DECISION THRESHOLD FOR [place] DIAGNOSIS. Performed By: #### H ANANDA, CMP #### [facility] [address] [address] [address] Aurelio Leavitt XR CHEST 1 Von [...] by: CORKY PINTO Date: 2021-11-15 01:06 Normal [facility] ALLIED HEALTHon 03-24-2021 ALLIED HEALTH HNO ID: [id number] Author: RT Jb(R) Service: ? Author Type: [...] RT Jb(R) March 24, 2021 6:37 AM [facility] MRI CERVICAL SPINE WO IVCONo n 03-24-2021 MRI CERVICAL SPINE WO IVCON * * *Final Report* * * DATE OF EXAM: Mar 24 2021 6:50AM [facility] [id number] - MRI CERVICAL SPINE WO [...] is taken as C2-3. Structural anomalies: None. Repair Clerk: VALENTINE Transcribe Date/Time: Mar 24 2021 7:36A Dictated by : LITTLE HERNANDEZ MD This examination was interpreted and the report reviewed and electronically signed by: LITTLE HERNANDEZ MD on Mar 24 2021 7:40AM EST [id number] CN [facility] CERVICAL SPINE 2 OR 3 [facility] 12-16-2019 CERVICAL SPINE 2 OR 3 [facility] Department of Radiology [address] [place] [id number] Patient Name: JACQUELYN ZENG : 1975 [...] identified. Electronically signed: Sha Gross. Transcribed by: [email or web address], User Resident: Electronically Signed by: SHA GROSS @ 12/16/2019 11:44 AM Normal [facility] Comment on above: Order Comment: Evalu ate MRI KNEE WO CONTRAST LEFTon 12-07-2019 MRI KNEE WO CONTRAST LEFT [facility] Department of Radiology [address] [place] [phone] Patient Name: JACQUELYN ZENG : 1975 Sex: F Age: Race: White Pt. Location: Patient Status: Ordered Date: 11/30/2019 1:55:00 PM Completed Date: 12/07/2019 08:52 AM Requesting Provider: BENJAMIN CUMMINS Attending Provider: Report Copy To: Signs & Symptoms: M25.569 Pain in unspecified knee I10 History: [place], PHONE:[phone],* NEEDS ORTHO F/U APPT. NO METAL Workers comp is approved with this diagnosis, cannot change it. [facility] Approved for CPT 53307 Claim#[id number] Valid 11/27/19-12/11/19 12/01/19 *SLA Comments: Please Evaluate [...] knee. Electronically signed: Michael Thayer. Transcribed by: [email or web address], User Resident: Electronically Signed by: MICHAEL THAYER @ 12/07/2019 11:04 AM Normal [facility] Comment on above: Order Comment: Pleas e Evaluate MRI SHOULDER WO CONTRAST LEF Ton 12-07-2019 MRI SHOULDER WO CONTRAST LEFT [facility] Department of Radiology [address] [place] [phone] Patient Name: JACQUELYN ZENG : 1975 Sex: F Age: Race: White Pt. Location: 84 Patient Status: Ordered Date: 11/30/2019 1:55:00 PM Completed Date: 12/07/2019 08:51 AM Requesting Provider: BENJAMIN CUMMINS Attending Provider: Report Copy To: Signs & Symptoms: M25.512 Pain in left shoulder I10 History: Zoey, PHONE:[phone],* NEEDS ORTHO F/U APPT. NO METAL [facility] Approved for CPT 12307 Claim#[id number] Valid 11/27/19-12/11/19 12/01/19 *SLA Comments: Please Evaluate [...] ligament. Electronically signed: Michael Thayer. Transcribed by: [email or web address], User Resident: Electronically Signed by: MICHAEL THAYER @ 12/07/2019 10:56 AM Normal [facility] Comment on above: Order Comment: Ya nixon Evaluate KNEE LEFT 4VWSon 10-21-2019 KNEE LEFT 4VWS [facility] Department of Radiology [address] [place] [phone] Patient Name: JACQUELYN ZNEG : 1975 Sex: F Age: Race: White Pt. Location: Patient Status: Ordered Date: 10/21/2019 9:50:00 AM Completed Date: 10/21/2019 10:05 AM Requesting Provider: BENJAMIN CUMMINS Attending Provider: Report Copy To: Signs & Symptoms: M25.569 Pain in unspecified knee I10 History: Zoey Comments: Views (X-RAY, KNEE): AP, Lateral, Tunnel, [place] , Weight Bearing?: Y Exam: KNEE LEFT 4VWS KNEE LEFT 4VWS 10/21/2019 10:05 AM CLINICAL INDICATIONS: M25.569 Pain in unspecified knee I10 left knee pain, recent falls and injury TECHNOLOGIST COMMENTS: Patient complains of left knee pain. Patient states history of several recent falls. QUESTION FOR THE RADIOLOGIST: Views (X-RAY, KNEE): AP, Lateral, Tunnel, [place] , Weight Bearing?: Y PROTOCOL: AP,Lateral,Tunnel and Tangential views were obtained. COMPARISON: None FINDINGS: There is no joint effusion fracture or dislocation. Mineralization and alignment is within normal limits. Mild lateral patellar tilt. Mild early marginal osteophyte formation. IMPRESSION: Early marginal osteophyte formation without acute ossific normality. Electronically signed: Jessica Garcia. Transcribed by: [email or web address], User Resident: Electronically Signed by: JESSICA GARCIA @ 10/21/2019 11:11 AM Normal [facility] Comment on above: Order Comment: Views (X-RAY, KNEE): AP, Lateral, Tunnel, [place] , Weight Bearing?: Y SHOULDER LEFTon 10-21-2019 SHOULDER LEFT [facility] Department of Radiology [address] [place] [id number] Patient Name: JACQUELYN ZENG : 1975 Sex: F Age: Race: White Pt. Location: 83 Patient Status: Ordered Date: 10/21/2019 9:50:00 AM Completed Date: 10/21/2019 10:03 AM Requesting Provider: BENJAMIN CUMMINS Attending Provider: Report Copy To: Signs & Symptoms: M25.512 Pain in left shoulder I10 History: Alanson Comments: Views (X-RAY, SHOULDER): AP, [place], Y-Lateral, [...] Electronically signed: Chepe Espinoza M.D.. Transcribed by: [email or web address], User Resident: Electronically Signed by: CHEPE ESPINOZA @ 10/21/2019 11:59 AM Normal [facility] Comment on above: Order Comment: Views (X-RAY, SHOULDER): AP, [place], Y-Lateral, [place] POC STREP SCREENon 9 STREP POC Negative Normal NEG [facility] Comment on above: Result Comment: Perf ormed in Emergency Department. Performed By: #### 3 0211 #### [facility] [address] [place] [address], [facility] Vital Signs Date Time Vital Sign Value Performing Clinician Facility 12-23-2024 11:48-0400 Body height 175.3 cm Olu Arce MD Work Phone: [facility] 12-23-2024 11:48-0400 Body mass index (BMI) [Ratio] 31.9 kg/m2 Olu Arce MD Work Phone: [facility] 12-23-2024 11:48-0400 Body weight 97.98 kg Olu Arce MD Work Phone: [facility] 12-23-2024 11:48-0400 Diastolic blood pressure 62 mm[Hg] Olu Arce MD Work Phone: [facility] 12-23-2024 11:48-0400 Systolic blood pressure 130 mm[Hg] Olu Arce MD Work Phone: [facility] 12-04-2024 08:53-0400 Body temperature 97.5 [degF] Kinga Froimson 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 Work Phone: [facility] 12-04-2024 08:53-0400 Diastolic blood pressure 71 mm[Hg] Kinga Froimson 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 Work Phone: [facility] 12-04-2024 08:53-0400 Heart rate 98 /min Kinga Froimson 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 Work Phone: [facility] 12-04-2024 08:53-0400 Respiratory rate 21 /min Kinga Froimson 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 Work Phone: [facility] 12-04-2024 08:53-0400 Systolic blood pressure 116 mm[Hg] Kinga Froimson 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 Work Phone: [facility] 10-22-2024 08:30-0400 Body mass index (BMI) [Ratio] 31.9 kg/m2 Olu Arce MD Work Phone: [facility] 10-22-2024 08:30-0400 Body weight 97.98 kg Olu Arce MD Work Phone: [facility] 10-12-2024 08:25-0400 Body height 175.3 cm Josh Ochoa MD Work Phone: [facility] 10-12-2024 08:25-0400 Body mass index (BMI) [Ratio] 32.64 kg/m2 Josh Ochoa MD Work Phone: [facility] 10-12-2024 08:25-0400 Body temperature 97.81 [degF] Josh Ochoa MD Work Phone: [facility] 10-12-2024 08:25-0400 Body weight 100.25 kg Josh Ochoa MD Work Phone: [facility] 10-12-2024 08:25-0400 Diastolic blood pressure 66 mm[Hg] Josh Ochoa MD Work Phone: [facility] 10-12-2024 08:25-0400 Heart rate 61 /min Josh Ochoa MD Work Phone: [facility] 10-12-2024 08:25-0400 Respiratory rate 22 /min Josh Ochoa MD Work Phone: [facility] 10-12-2024 08:25-0400 SaO2% (BldA) [Mass fraction] 90 % Josh Ochoa MD Work Phone: [facility] 10-12-2024 08:25-0400 Systolic blood pressure 134 mm[Hg] Josh Ochoa MD Work Phone: [facility] 10-08-2024 10:55-0400 Diastolic blood pressure 90 mm[Hg] Jessee Billy MD Work Phone: [facility] 10-08-2024 10:55-0400 Systolic blood pressure 140 mm[Hg] Jessee Billy MD Work Phone: [facility] 10-08-2024 10:27-0400 Body height 175.3 cm Jessee Billy MD Work Phone: [facility] 10-08-2024 10:27-0400 Body mass index (BMI) [Ratio] 31.6 kg/m2 Jessee Billy MD Work Phone: [facility] 10-08-2024 10:27-0400 Body temperature 97 [degF] Jessee Billy MD Work Phone: [facility] 10-08-2024 10:27-0400 Body weight 97.07 kg Jessee Billy MD Work Phone: [facility] 10-08-2024 10:27-0400 Heart rate 94 /min Jessee Billy MD Work Phone: [facility] 09-11-2024 11:41-0400 Diastolic blood pressure 68 mm[Hg] Kinga Froimson 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 Work Phone: [facility] 09-11-2024 11:41-0400 Heart rate 100 /min Kinga Froimson 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 Work Phone: [facility] 09-11-2024 11:41-0400 Systolic blood pressure 121 mm[Hg] Kinga Froimson 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 Work Phone: [facility] 09-10-2024 08:14-0400 Body mass index (BMI) [Ratio] 31.16 kg/m2 Olu Arce MD Work Phone: [facility] 09-10-2024 08:14-0400 Body weight 95.71 kg Olu Arce MD Work Phone: [facility] 09-10-2024 08:14-0400 Diastolic blood pressure 82 mm[Hg] Olu Arce MD Work Phone: [facility] 09-10-2024 08:14-0400 Systolic blood pressure 126 mm[Hg] Olu Arce MD Work Phone: [facility] 08-10-2024 09:24-0400 Body height 175.3 cm Josh Ochoa MD Work Phone: [facility] 08-10-2024 09:24-0400 Body mass index (BMI) [Ratio] 32.19 kg/m2 Josh Ochoa MD Work Phone: [facility] 08-10-2024 09:24-0400 Body temperature 97.11 [degF] Josh Ocoha MD Work Phone: [facility] 08-10-2024 09:24-0400 Body weight 98.88 kg Josh Ochoa MD Work Phone: [facility] 08-10-2024 09:24-0400 Diastolic blood pressure 52 mm[Hg] Josh Ochoa MD Work Phone: [facility] 08-10-2024 09:24-0400 Heart rate 107 /min Josh Ochoa MD Work Phone: [facility] 08-10-2024 09:24-0400 Respiratory rate 22 /min Josh Ochoa MD Work Phone: [facility] 08-10-2024 09:24-0400 SaO2% (BldA) [Mass fraction] 91 % Josh Ochoa MD Work Phone: [facility] 08-10-2024 09:24-0400 Systolic blood pressure 112 mm[Hg] Josh Ochoa MD Work Phone: [facility] 05-11-2024 08:52-0500 Body height 175.3 cm Josh Ochoa MD Work Phone: [facility] 05-11-2024 08:52-0500 Body mass index (BMI) [Ratio] 33.82 kg/m2 Josh Ochoa MD Work Phone: [facility] 05-11-2024 08:52-0500 Body temperature 95.9 [degF] Josh Ochoa MD Work Phone: [facility] 05-11-2024 08:52-0500 Body weight 103.87 kg Josh Ochoa MD Work Phone: [facility] 05-11-2024 08:52-0500 Diastolic blood pressure 74 mm[Hg] Josh Ochoa MD Work Phone: [facility] 05-11-2024 08:52-0500 Heart rate 105 /min Josh Ochoa MD Work Phone: [facility] 05-11-2024 08:52-0500 Respiratory rate 22 /min Josh Ochoa MD Work Phone: [facility] 05-11-2024 08:52-0500 SaO2% (BldA) [Mass fraction] 92 % Josh Ochoa MD Work Phone: [facility] 05-11-2024 08:52-0500 Systolic blood pressure 138 mm[Hg] Josh Ochoa MD Work Phone: [facility] 04-14-2024 10:47-0500 Diastolic blood pressure 72 mm[Hg] Infusion 10 Work Phone: [facility] 04-14-2024 10:47-0500 Heart rate 92 /min Infusion 10 Work Phone: [facility] 04-14-2024 10:47-0500 Systolic blood pressure 110 mm[Hg] Infusion 10 Work Phone: [facility] 04-13-2024 11:16-0500 Diastolic blood pressure 68 mm[Hg] Infusion 5 Work Phone: [facility] 04-13-2024 11:16-0500 Heart rate 102 /min Infusion 5 Work Phone: [facility] 04-13-2024 11:16-0500 Systolic blood pressure 125 mm[Hg] Infusion 5 Work Phone: [facility] 04-08-2024 11:48-0500 Diastolic blood pressure 72 mm[Hg] Infusion 7 Work Phone: [facility] 04-08-2024 11:48-0500 Heart rate 87 /min Infusion 7 Work Phone: [facility] 04-08-2024 11:48-0500 Systolic blood pressure 110 mm[Hg] Infusion 7 Work Phone: [facility] 04-08-2024 08:40-0500 Body temperature 97.5 [degF] Kinga Froimson 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 Work Phone: [facility] 04-08-2024 08:40-0500 Diastolic blood pressure 75 mm[Hg] Kinga Froimson 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 Work Phone: [facility] 04-08-2024 08:40-0500 Heart rate 70 /min Kinga Froimson 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 Work Phone: [facility] 04-08-2024 08:40-0500 Systolic blood pressure 126 mm[Hg] Kinga Froimson 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 Work Phone: [facility] 02-26-2024 09:06-0400 Body height 175.[address] ENGINEER FREIGHT Work Phone: [facility] 02-26-2024 09:06-0400 Body mass index (BMI) [Ratio] 34.7 kg/m2 Sara Graziani [address] ENGINEER FREIGHT Work Phone: [facility] 02-26-2024 09:06-0400 Body weight 106.[address] ENGINEER FREIGHT Work Phone: [facility] 02-26-2024 09:06-0400 Diastolic blood pressure 72 mm[Hg] Sara [address] ENGINEER FREIGHT Work Phone: [facility] 02-26-2024 09:06-0400 Systolic blood pressure 110 mm[Hg] Sara [address] ENGINEER FREIGHT Work Phone: [facility] 01-08-2024 10:24-0400 Body height 175.26 cm MD Josh Ochoa Work Phone: [facility] 01-08-2024 10:24-0400 Body weight 109.76 kg MD Josh Ochoa Work Phone: [facility] 06-20-2023 14:12-0500 Body height 175.3 cm Josh Ochoa MD Work Phone: [facility] 06-20-2023 14:12-0500 Body mass index (BMI) [Ratio] 37.07 kg/m2 Josh Ochoa MD Work Phone: [facility] 06-20-2023 14:12-0500 Body temperature 97.11 [degF] Josh Ochoa MD Work Phone: [facility] 06-20-2023 14:12-0500 Body weight 113.85 kg Josh Ochoa MD Work Phone: [facility] 06-20-2023 14:12-0500 Diastolic blood pressure 78 mm[Hg] Josh Ochoa MD Work Phone: [facility] 06-20-2023 14:12-0500 Heart rate 100 /min Josh Ochoa MD Work Phone: [facility] 06-20-2023 14:12-0500 SaO2% (BldA) [Mass fraction] 96 % Josh Ochoa MD Work Phone: [facility] 06-20-2023 14:12-0500 Systolic blood pressure 140 mm[Hg] Josh Ochoa MD Work Phone: [facility] 01-02-2023 08:39-0400 Diastolic blood pressure 76 mm[Hg] Kinga Froimson 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 Work Phone: [facility] 01-02-2023 08:39-0400 Heart rate 97 /min Kinga Froimson 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 Work Phone: [facility] 01-02-2023 08:39-0400 Systolic blood pressure 127 mm[Hg] Kinga Froimson 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 Work Phone: [facility] 09-06-2022 16:05-0400 Diastolic blood pressure 81 mm[Hg] MD Josh Ochoa Work Phone: [facility] 09-06-2022 16:05-0400 Heart rate 78 /min MD Josh Ochoa Work Phone: [facility] 09-06-2022 16:05-0400 Respiratory rate 16 /min MD Josh Ochoa Work Phone: [facility] 09-06-2022 16:05-0400 SaO2% (BldA) [Mass fraction] 93 % MD Josh Ochoa Work Phone: [facility] 09-06-2022 16:05-0400 Systolic blood pressure 129 mm[Hg] MD Josh Ochoa Work Phone: [facility] 09-06-2022 15:35-0400 Body temperature 98.4 [degF] MD Josh Ochoa Work Phone: [facility] 09-06-2022 15:05-0400 Inhaled oxygen flow rate 8 L/min MD Josh Ochoa Work Phone: [facility] 09-06-2022 13:23-0400 Body height 175.26 cm MD Jsoh Ochoa Work Phone: [facility] 09-06-2022 13:23-0400 Body mass index (BMI) [Ratio] 33.2 kg/m2 MD Josh Ochoa Work Phone: [facility] 09-06-2022 13:23-0400 Body weight 102.05 kg MD Josh Ochoa Work Phone: [facility] 04-17-2022 10:11-0500 Body height 175.3 cm Kinga Froimson 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 Work Phone: [facility] 04-17-2022 10:11-0500 Body weight 91.63 kg Kinga Froimson 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 Work Phone: [facility] 04-17-2022 10:11-0500 Diastolic blood pressure 76 mm[Hg] Kinga Froimson 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 Work Phone: [facility] 04-17-2022 10:11-0500 Heart rate 103 /min Kinga Froimson 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 Work Phone: [facility] 04-17-2022 10:11-0500 Systolic blood pressure 131 mm[Hg] Kinga Froimson 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 Work Phone: [facility] 01-09-2022 15:11-0400 Body height 175.3 cm Kinga Froimson 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 Work Phone: [facility] 01-09-2022 15:11-0400 Body weight 97.07 kg Kinga Froimson 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 Work Phone: [facility] 01-09-2022 15:11-0400 Diastolic blood pressure 74 mm[Hg] Kinga Froimson 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 Work Phone: [facility] 01-09-2022 15:11-0400 Heart rate 92 /min Kinga Froimson 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 Work Phone: [facility] 01-09-2022 15:11-0400 Respiratory rate 22 /min Kinga Froimson 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 Work Phone: [facility] 01-09-2022 15:11-0400 Systolic blood pressure 137 mm[Hg] Kinga Froimson 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 Work Phone: [facility] 12-31-2021 13:00-0400 Body height 170.18 cm Vianney Collins Other [employer] Other 12-31-2021 13:00-0400 Body mass index (BMI) [Ratio] 33.51 kg/m2 Vianney Collins Other [employer] Other 12-31-2021 13:00-0400 Body temperature 97.5 [degF] Vianney Collins Other [employer] Other 12-31-2021 13:00-0400 Body weight 97.07 kg Vianney Collins Other [employer] Other 12-31-2021 13:00-0400 Diastolic blood pressure 70 mm[Hg] Vianney Recinosmond Other [employer] Other 12-31-2021 13:00-0400 Respiratory rate 18 /min Vianney Collins Other [employer] Other 12-31-2021 13:00-0400 SaO2% (BldA) [Mass fraction] 97 % Vianney Collins Other [employer] Other 12-31-2021 13:00-0400 Systolic blood pressure 122 mm[Hg] Vianney Collins Other [employer] Other 12-09-2021 10:10-0400 Body height Chanel Workman Other [employer] Other 12-09-2021 10:10-0400 Body mass index (BMI) [Ratio] 33.67 kg/m2 Chanel Workman Other [employer] Other 12-09-2021 10:10-0400 Body temperature 98 [degF] Chanel Workman Other [employer] Other 12-09-2021 10:10-0400 Body weight 97.52 kg Chanel Workman Other [employer] Other 12-09-2021 10:10-0400 Diastolic blood pressure 79 mm[Hg] Chanel Workman Other [employer] Other 12-09-2021 10:10-0400 Respiratory rate 20 /min Chanel Workman Other [employer] Other 12-09-2021 10:10-0400 SaO2% (BldA) [Mass fraction] 94 % Chanel Workman Other [employer] Other 12-09-2021 10:10-0400 Systolic blood pressure 132 mm[Hg] Chanel Workman Other [employer] Other Encounters Encounter Date Encounter Type Care Provider Facility Start: 12-23-2024 End: 12-23-2024 HouseFixo Valkeeheet Olu Arce MD Work Phone: [facility] Start: 12-23-2024 End: 12-23-2024 YogiPlayheet Olu Arce MD Work Phone: [facility] Start: 12-23-2024 End: 12-23-2024 ambulatory OLU ARCE Not Available Comment on above: Trochanteric bursiti s of both hips (Primary Dx); Radiculopathy, cervical region; Lumbar spondylosis; Cervical spondylosis; Other nerve root and plexus disorders; Nerve root and plexus disorder, unspecified Start: 12-04-2024 End: 12-04-2024 Refill Josh Ochoa MD Work Phone: [facility] Comment on above: Type 2 diabetes neli itus with polyneuropathy (HCC); Generalized anxiety disorder Intractable chronic migraine without aura and without status migrainosus (Primary Dx); Chronic daily headache Start: 11-10-2024 End: 11-10-2024 Refill Olu Arce MD Work Phone: [facility] Comment on above: Lumbar spondylosis; Cervical spondylosis; Other nerve root and plexus disorders Start: 11-05-2024 ambulatory Elmo Solano Facility:[facility] Start: 10-22-2024 End: 10-22-2024 BamPinstant Karmaheet Olu Arce MD Work Phone: [facility] Start: 10-22-2024 End: 10-22-2024 YogiPlayheet Olu Arce MD Work Phone: [facility] Start: 10-22-2024 End: 10-22-2024 Clinical Support Olu Arce MD Work Phone: [facility] Comment on above: Trochanteric bursiti s of both hips (Primary Dx); Nerve root and plexus disorder, unspecified Start: 10-12-2024 End: 10-12-2024 Bamboo flowsheet Josh Ochoa MD Work Phone: [facility] Start: 10-12-2024 End: 10-12-2024 Bamboo flowsheet Josh Ochoa MD Work Phone: [facility] Start: 10-12-2024 End: 10-12-2024 Office outpatient visit 25 minutes Josh Ochoa MD Work Phone: [facility] Comment on above: Type 2 diabetes neli itus with hyperglycemia, with long-term current use of insulin (CMS/HCC) (Primary Dx); Benign essential HTN (CMS/HCC); ADD (attention deficit disorder) without hyperactivity; MDD (major depressive disorder), recurrent episode, mild (HCC) (CMS/HCC); Generalized anxiety disorder (CMS/HCC); Type 2 diabetes mellitus with polyneuropathy (CMS/HCC); Acute non-recurrent pansinusitis Start: 10-12-2024 End: 10-12-2024 Social Work Dc Levy Manuel [facility] Work Phone: [facility] Comment on above: Major depressive dis order, single episode, severe without psychotic features (HCC) (CMS/HCC); Generalized anxiety disorder (CMS/HCC) Start: 10-09-2024 End: 10-12-2024 Refill Josh Ochoa MD Work Phone: [facility] Comment on above: Generalized anxiety disorder (CMS/HCC) Start: 10-08-2024 End: 10-08-2024 Clinisync Result Encounter Generic External Data Provider [facility] External Department Unsolicited Start: 10-08-2024 End: 10-08-2024 Clinisync Result Encounter Generic External Data Provider [facility] External Department Unsolicited Start: 10-08-2024 End: 10-08-2024 ambulatory [facility] Start: 10-08-2024 End: 10-08-2024 Subsequent hospital visit by physician Jessee Billy MD Work Phone: [facility] Comment on above: Lumbosacral spondylo sis without myelopathy Start: 10-08-2024 End: 10-08-2024 ambulatory [facility] Start: 10-08-2024 End: 10-08-2024 Subsequent hospital visit by physician [facility] Comment on above: Pain Start: 09-22-2024 End: 09-22-2024 ambulatory JOSE FRANCISCO MARR [facility] Start: 09-16-2024 End: 09-18-2024 ambulatory [facility] Start: 09-16-2024 End: 09-18-2024 Subsequent hospital visit by physician Jessee Billy MD Work Phone: [facility] Comment on above: Localized osteoarthr itis of left shoulder Cervical spondylosis without myelopathy; Lumbosacral spondylosis without myelopathy Start: 09-16-2024 End: 09-22-2024 Clinisync Result Encounter Generic External Data Provider [facility] External Department Unsolicited Start: 09-16-2024 End: 09-22-2024 Clinisync Result Encounter Generic External Data Provider [facility] External Department Unsolicited Start: 09-11-2024 End: 09-11-2024 ambulatory KINGA MENDES Facility:[facility] Start: 09-11-2024 End: 09-11-2024 Patient encounter procedure 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 Work Phone: Neurology Comment on above: Intractable chronic migraine without aura and without status migrainosus (Primary Dx); Chronic daily headache Start: 09-10-2024 End: 09-10-2024 Carolin Arce MD Work Phone: [facility] Start: 09-10-2024 End: 05-01-2025 Bamboo flowsheet Olu Arce MD Work Phone: [facility] Start: 09-10-2024 End: 09-10-2024 Clinical Support Olu Arce MD Work Phone: [facility] Comment on above: Trochanteric bursiti s of both hips (Primary Dx); Lumbar spondylosis; Lumbar radiculopathy; Nerve root and plexus disorder, unspecified Start: 09-07-2024 End: 09-07-2024 Bamboo flowsheet Dc L Jcakson [facility] Work Phone: [facility] Start: 09-07-2024 End: 09-07-2024 Bamboo flowsheet Dc L Jackson [facility] Work Phone: [facility] Start: 09-07-2024 End: 09-07-2024 Social Work Dc L Jackson [facility] Work Phone: [facility] Comment on above: Major depressive dis order, single episode, severe without psychotic features (HCC) (CMS/HCC); Generalized anxiety disorder (CMS/HCC); Panic disorder (CMS/HCC) Start: 08-27-2024 tk OCHOA Facility :[facility] Start: 08-13-2024 End: 08-13-2024 Social Work Dc L Jackson [facility] Work Phone: [facility] Comment on above: Major depressive dis order, single episode, severe without psychotic features (HCC) (CMS/HCC); Generalized anxiety disorder (CMS/HCC) Start: 08-13-2024 End: 08-13-2024 Bamboo flowsheet Dc L Jackson [facility] Work Phone: [facility] Start: 08-13-2024 End: 08-13-2024 Bamboo flowsheet Dc L Jackson [facility] Work Phone: [facility] Start: 08-12-2024 End: 08-12-2024 Nam Ochoa MD Work Phone: [facility] Comment on above: Generalized anxiety disorder (CMS/HCC) Start: 08-12-2024 End: 08-12-2024 ambulatory [facility] Start: 08-10-2024 End: 08-10-2024 Bamboo flowsheet Josh [...] Bamboo flowsheet Olu Arce MD Work Phone: [facility] Start: 07-16-2024 End: 07-16-2024 Bamboo flowsheet Olu Arce MD Work Phone: [facility] Start: 07-16-2024 End: 07-16-2024 ambulatory OLU ARCE Not Available Start: 07-06-2024 End: 07-06-2024 Bamboo flowsheet Dc L Manuel [facility] Work Phone: [facility] Start: 07-06-2024 End: 07-06-2024 Bamboo flowsheet Dc L Manuel [facility] Work Phone: [facility] Start: 07-06-2024 End: 07-06-2024 Social Work Dckhalida Jackson [facility] Work Phone: [facility] Comment on above: Major depressive dis order, single episode, severe without psychotic features (HCC) (CMS/HCC); Generalized anxiety disorder (CMS/HCC); Panic disorder (CMS/HCC) Start: 06-29-2024 End: 06-29-2024 Telephone encounter 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 APRN.CNP Work Phone: Neurology Comment on above: Referral Request Start: 06-23-2024 End: 06-23-2024 ambulatory JOSE FRANCISCO MARR [facility] Start: 06-02-2024 End: 06-02-2024 Refill Olu Arce MD Work Phone: [facility] Comment on above: Lumbar spondylosis; Cervical spondylosis; Other nerve root and plexus disorders Generalized anxiety disorder (CMS/HCC); Hyperlipidemia, unspecified (CMS/HCC) Start: 05-18-2024 End: 05-18-2024 Bamboo flowsheet Dc L Manuel [facility] Work Phone: [facility] Start: 05-18-2024 End: 05-18-2024 Bamboo flowsheet Dc L Jackson [facility] Work Phone: [facility] Start: 05-18-2024 End: 05-18-2024 Social Work Dc L Manuel [facility] Work Phone: [facility] Comment on above: Major depressive dis order, single episode, severe without psychotic features (HCC) (CMS/HCC); Generalized anxiety disorder (CMS/HCC); Panic disorder (CMS/HCC) Start: 05-11-2024 End: 05-11-2024 Bamboo flowsheet Josh Ochoa MD Work Phone: [facility] CWM FM Start: 05-11-2024 End: 05-11-2024 Bamboo flowsheet Josh Ochoa MD Work Phone: [facility] CW FM Start: 05-11-2024 End: 05-11-2024 Office outpatient visit 25 minutes Josh Ochoa MD Work Phone: [facility] FM Comment on above: Type 2 [...] 04-20-2024 Refill Carolynn Reyes NP Work Phone: [facility] Start: 04-14-2024 End: 04-15-2024 Patient [...] End: 04-08-2024 Patient encounter procedure Kingaher Fred SOLORZANO.CABLE BRAIDER Work Phone: Neurology Comment on above: Intractable chronic migraine without aura and without status migrainosus (Primary Dx); Chronic daily headache; Status migrainosus Start: 04-06-2024 End: 04-06-2024 ambulatory JOSE FRANCISCO MARR [facility] Start: 03-31-2024 End: 03-31-2024 Nam Ochoa MD Work Phone: [facility] Comment on above: Generalized anxiety disorder (CMS/HCC); ADD (attention deficit disorder) without hyperactivity Start: 03-30-2024 End: 04-06-2024 Telephone encounter 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 APRN.CABLE BRAIDER Work Phone: Neurology Comment on above: Botox Injection Start: 03-30-2024 End: 03-30-2024 ambulatory SARA KRAMER Not Available Start: 03-30-2024 End: 03-30-2024 Phys/qhp telephone evaluation 11-[address] ENGINEER FREIGHT Work Phone: [facility] NE[facility]O 210 Comment on above: Intractable chronic migraine without aura and without status migrainosus (CMS/HCC) (Primary Dx); Cervical spondylosis; Lumbar spondylosis; Complex regional pain syndrome type 1, affecting unspecified site; Trochanteric bursitis of both hips Start: 03-25-2024 End: 03-25-2024 Telephone encounter Olu Arce MD Work Phone: [facility] NEURO 210 Start: 03-24-2024 End: 03-24-2024 Bamboo flowsheet Dc Jackson [facility] Work Phone: [facility] Start: 03-24-2024 End: 03-24-2024 Bamboo flowsheet Dc Jackson [facility] Work Phone: [facility] Start: 03-24-2024 End: 03-24-2024 Social Work Dc Jackson [facility] Work Phone: [facility] Comment on above: Major depressive dis order, single episode, severe without psychotic features (HCC) (CMS/HCC); Generalized anxiety disorder (CMS/HCC); Panic disorder (CMS/HCC); Insomnia, unspecified type Start: 02-26-2024 End: 02-26-2024 Bamboo [address] Sara Kramer [address] ENGINEER FREIGHT Work Phone: [facility] Start: 02-26-2024 End: 02-26-2024 Bamboo flow[address] Sara Kramer [address] ENGINEER FREIGHT Work Phone: [facility] Start: 02-26-2024 End: 02-26-2024 Clinical Support Sara Kramer RO[address] ENGINEER FREIGHT Work Phone: [facility] NEURO 210 Comment on above: Trochanteric bursiti s of both hips (Primary Dx); Cervical paraspinal muscle spasm; Complex regional pain syndrome type 1, affecting unspecified site; Migraine without aura and without status migrainosus, not intractable (CMS/HCC); Lumbar spondylosis; Cervical spondylosis; Other nerve root and plexus disorders Start: 02-17-2024 End: 02-17-2024 Sontra Dc Jackson [facility] Work Phone: [facility] Start: 02-17-2024 End: 02-17-2024 Sontra Dc Jackson [facility] Work Phone: [facility] Start: 02-17-2024 End: 02-17-2024 Social Targovax Dc Jackson [facility] Work Phone: [facility] Comment on above: Major depressive dis order, single episode, severe without psychotic features (HCC) (CMS/HCC); Generalized anxiety disorder (CMS/HCC); Panic disorder (CMS/HCC) Start: 02-12-2024 End: 02-12-2024 ambulatory JOSE FRANCISCO MARR [facility] Start: 02-07-2024 End: 02-07-2024 Clinisync Result Encounter Generic External Data Provider [facility] External Department Unsolicited Start: 02-07-2024 End: 02-07-2024 Clinisync Result Encounter Generic External Data Provider [facility] External Department Unsolicited Start: 02-07-2024 End: 02-07-2024 ambulatory [facility] Start: 01-23-2024 End: 01-23-2024 Bamboo flowsheet Dc Cam Jackson [facility] Work Phone: [facility] Start: 01-23-2024 End: 01-23-2024 Bamboo flowsheet Dc Jackson [facility] Work Phone: [facility] Start: 01-23-2024 End: 01-23-2024 Social Work Dc Cam Jackson [facility] Work Phone: [facility] Comment on above: Major depressive dis order, single episode, severe without psychotic features (HCC) (CMS/HCC); Generalized anxiety disorder (CMS/HCC) Start: 01-22-2024 End: 01-22-2024 Refill Josh Ochoa MD Work Phone: [facility] Comment on above: Generalized anxiety disorder (CMS/HCC) Start: 01-15-2024 End: 01-15-2024 ambulatory PHILIP PFEIFFER Facility:[facility] Start: 01-08-2024 End: 01-08-2024 ambulatory MD Josh Ochoa Work Phone: [facility] Work Phone: Start: 01-08-2024 End: 01-08-2024 Departed Referred MD Josh Ochoa Work Phone: [facility] Work Phone: Start: 12-26-2023 End: 12-26-2023 Social Work Dc Jackson [facility] Work Phone: [facility] Comment on above: Major depressive dis order, single episode, severe without psychotic features (HCC) (CMS/HCC); Generalized anxiety disorder (CMS/HCC); Panic disorder (CMS/HCC) Start: 10-24-2023 End: 03-04-2024 Telephone encounter 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 Work Phone: Neurology Comment on above: Forms; c (Worker's Comp) C9 Botox form Start: 10-08-2023 Telephone encounter Kinga mae 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 Work Phone: Neurology Comment on above: Patient [...] 1, affecting unspecified site; Mixed hyperlipidemia (CMS/HCC); group home (current) use of insulin (Z79.4) Start: 06-20-2023 Bamboo flowsheet Josh Ochoa MD Work Phone: [facility] Start: 06-20-2023 Bamboo flowsheet Josh Ochoa MD Work Phone: [facility] Start: 06-17-2023 End: 03-04-2024 Telephone encounter 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 Work Phone: Neurology Comment on above: Forms ([facility] forms) Start: 03-25-2023 Telephone encounter Kinga mae 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 Work Phone: Otolaryngology Comment on above: Appointment Start: 01-02-2023 End: 01-02-2023 Patient encounter procedure 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 APRN.CABLE BRAIDER Work Phone: Neurology Comment on above: Intractable chronic migraine without aura and without status migrainosus (Primary Dx); Chronic daily headache Start: 10-10-2022 End: 10-10-2022 Patient encounter procedure 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 Work Phone: Neurology Comment on above: Intractable chronic migraine without aura and without status migrainosus (Primary Dx); Chronic daily headache Start: 09-06-2022 End: 09-06-2022 Admission to same day surgery center MD Josh Ochoa Work Phone: [facility] [place] Start: 09-06-2022 End: 09-06-2022 ambulatory MD Josh Ochoa Work Phone: [facility] Work Phone: Start: 08-28-2022 End: 08-29-[address] BARTOLOME RODRIGUEZ Facility:[facility] Start: 08-27-2022 End: 08-27-2022 ambulatory MD Josh Ochoa Work Phone: [facility] Work Phone: Start: 08-27-2022 End: 08-27-2022 Patient encounter procedure MD Josh Ochoa Work Phone: [facility] Work Phone: Start: 08-01-[address] JOSH OCHOA [facility] ity:H1 Start: 07-30-2022 Encounter for genera l adult medical examination without abnormal findings DR JOSH OCHOA [facility] Start: 07-24-2022 End: 07-25-[address] JOSH OCHOA Facility:[facility] Start: 07-24-2022 End: 07-25-2022 Encounter for general adult medical examination without abnormal findings DR JOSH OCHOA Facility:[facility] Start: 07-17-2022 Telephone encounter Kinga liukimmie 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 Work Phone: Otolaryngology Comment on above: Referral Request Start: 07-17-2022 End: 07-17-2022 Patient encounter procedure 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 Work Phone: Neurology Comment on above: Intractable chronic migraine without aura and without status migrainosus (Primary Dx) Start: 07-10-2022 End: 07-11-[address] AVINASH SERRATO Facility:[facility] Start: 06-26-2022 End: 06-27-[address] AVINASH SERRATO Facility:[facility] Start: 04-17-2022 End: 04-17-2022 Patient encounter procedure Kinga Jeffersondarryl 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 Work Phone: Neurology Comment on above: Intractable chronic migraine without aura and without status migrainosus (Primary Dx) Start: 03-29-2022 End: 03-29-2022 ambulatory MD Josh Ochoa Work Phone: [facility] Work Phone: Start: 03-29-2022 End: 03-29-2022 Patient encounter procedure MD Josh Ochoa Work Phone: [facility] Start: 03-29-2022 End: 03-29-2022 ambulatory MARIE ELIAS Facility:[facility] Start: 03-28-2022 End: 03-29-[address] JOSH OCHOA Facility:[facility] Start: 01-09-2022 End: 01-09-2022 Patient encounter procedure Kinga Jeffersonabielkimmie 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 Work Phone: Neurology Comment on above: Intractable chronic migraine without aura and without status migrainosus (Primary Dx) Start: 12-31-2021 End: 12-31-2021 ambulatory Vianney Collins Other [employer] Other Start: 12-31-2021 Office outpatient vi sit 25 minutes Vianney Collins [facility] Start: 12-13-2021 End: 12-14-[address] JOSH OCHOA Facility: Start: 12-09-2021 End: 12-09-2021 ambulatory Chanel Workman Other [facility] [employer] Other Start: 12-09-2021 Office outpatient vi sit 15 minutes Chanel Workman [facility] Start: 11-15-2021 End: 11-15-[address] MEG TIDWELL . Facility: Start: 09-08-2021 Telephone encounter Kinga mae APRN.CABLE BRAIDER Work Phone: Neurology Comment on above: Referral Request Start: 01-12-2020 End: 01-27-2020 Patient encounter procedure BENJAMIN EBRAHEIM Facility:[facility] Start: 12-07-2019 End: 12-08-2019 Patient encounter procedure BENJAMIN EBRAHEIM Facility:[facility] Start: 10-21-2019 End: 10-22-2019 Patient encounter procedure BENJAMIN EBRAHEIM Facility:[facility] Start: 02-18-2019 End: 02-18-2019 Emergency department patient visit CHONG CARRERO Facility:[facility] Procedures Date Procedure Procedure Detail Performing Clinician Start: 10-08-2024 Fluoroscopy during operation Jessee Billy MD Work Phone: Start: 10-08-2024 FLUORO FOR SURGICAL PROCEDURES Generic External Data Provider Start: 09-16-2024 XR CERVICAL SPINE (4 -5 VIEWS) Generic External Data Provider Start: 09-16-2024 XR LUMBAR SPINE (MIN 4 VIEWS) Generic External Data Provider Start: 09-16-2024 XR SHOULDER LEFT (IL N 2 VIEWS) Generic External Data Provider [...] 09-07-2021 Adult depression screening assessment 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 APRN.CABLE BRAIDER Work Phone: Start: 07-11-2020 Microscopic observat ion [Identifier] in Cervix by Cyto stain Josh Ochoa MD Work Phone: Plan of Treatment Date Care Activity Detail Author Start: 02-27-2028 Screening for malign ant neoplasm of cervix [facility] Start: 09-23-2027 Diabetes Screening Diabetes Screenin [facility] Start: 07-21-2027 Screening for malign ant neoplasm of cervix Pap Smear [facility] Start: 06-23-2027 Diabetes Screening Diabetes Screenin [facility] Start: 02-11-2027 Diabetes Screening Diabetes Screenin [facility] Start: 10-05-2025 DIABETES SCREEN DIABETES SCREEN [facility] Start: 10-05-2025 Diabetes Screening Diabetes Screenin [facility] Start: 08-10-2025 Medicare Annual Well ness (AWV) Medicare Annual Wellness (AWV) [facility] Start: 07-26-2025 End: 07-26-2025 Patient encounter procedure [facility] Start: 07-20-2025 Medicare Annual Well ness (AWV) Medicare Annual Wellness (AWV) [facility] Start: 07-11-2025 Screening for malign ant neoplasm of cervix [facility] Start: 04-13-2025 End: 04-13-2025 Patient encounter procedure 04/13/2025 9:00 AM EST [facility] [address] [place] [address] Josh Ochoa MD [address] [place] [address] [facility] Start: 03-05-2025 Glaucoma screening Diabetes: R etinopathy Screening [facility] Start: 03-03-2025 End: 03-03-2025 Patient encounter procedure 03/03/2025 11:30 AM EDT Office Visit Neurology [address] [facility] [address], [place] [address] 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 APRN.CABLE BRAIDER [address] [place], [place] [id number] 12 week botox Neurology Comment on above: 12 week botox Start: 02-17-2025 End: 02-17-2025 Clinical Support 02/17/2025 8:00 AM EDT Clinical [facility] [address] [facility] [address] [place] [address] Olu Arce MD [address] [facility] [address] [id number] [facility] [place] [facility] Start: 01-11-2025 Influenza vaccination N [facility] Start: 12-23-2024 End: 12-23-2024 Clinical Support [facility] Comment on above: Arrived Start: 12-21-2024 Hemoglobin A1c measurement Diabetes: Hemoglobin A1C [facility] Start: 12-11-2024 Influenza vaccination Flu vacc ine (Season Ended) [facility] Start: 12-04-2024 End: 12-04-2024 Patient encounter procedure 12/04/2024 9:00 AM EDT Office Visit Neurology [address], [place] [address] 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 APRN.CABLE BRAIDER [address] [place] [address] [employer]OT[employer] Neurology Comment on above: BOTOX Start: 11-16-2024 End: 11-16-2024 Social Work 11/16/2024 10:00 AM EDT Social Work [facility] [address] [place] [address] Dc Jackson, [facility] [address] [place] [address] [facility] Start: 10-22-2024 End: 10-22-2024 Clinical Support [facility] Comment on above: Arrived Start: 10-12-2024 End: 10-12-2024 Patient encounter procedure [facility] Comment on above: Arrived Start: 09-10-2024 End: 09-10-2024 Clinical Support [facility] Comment on above: Arrived Start: 09-07-2024 End: 09-07-2024 Social Work 09/07/2024 10:00 AM EDT Social Work [facility] [address] [place] [address] Dc Jackson, [facility] [address] [place] [address] [facility] Start: 2024 Shingles vaccine (1 of 2) Shingles vaccine (1 of 2) [facility] Start: 2024 Shingrix Vaccine (1 of 2) Shingrix Vaccine (1 of 2) [facility] Start: 08-28-2024 Screening for malign ant neoplasm of breast Breast cancer screen [facility] Start: 08-13-2024 End: 08-13-2024 Social Work 08/13/2024 3:00 PM EDT Social Work [facility] [address] [place] [address] Dc Jackson, [facility] [address] [place] [address] [facility] Start: 08-12-2024 Hemoglobin A1c measurement Diabetes: Hemoglobin A1C [facility] Start: 08-10-2024 End: 08-10-2025 Basic metabolic 1998 panel - Serum or Plasma Basic metabolic panel Lab Routine Encounter for long-term (current) use of medications Expected: 08/10/2024 (Approximate), Expires: 08/10/2025 [facility] Comment on above: Expected: 08/10/2024 (Approximate), Expires: 08/10/2025 Start: 08-10-2024 End: 08-10-2025 CBC W Auto Differential panel - Blood CBC and differential Lab Routine Encounter for long-term (current) use of medications Expected: 08/10/2024 (Approximate), Expires: 08/10/2025 [facility] Comment on above: Expected: 08/10/2024 (Approximate), Expires: 08/10/2025 Start: 08-10-2024 End: 08-10-2025 Hemoglobin A1c/Hemoglobin.total in Blood Hemoglobin A1c Lab Routine Type 2 diabetes mellitus with hyperglycemia, with long-term current use of insulin ([facility]) Expected: 08/10/2024 (Approximate), Expires: 08/10/2025 [facility] Comment on above: Expected: 08/10/2024 (Approximate), Expires: 08/10/2025 Start: 08-10-2024 End: 08-10-2025 Hepatic function 2000 panel - Serum or Plasma Hepatic function panel Lab Routine Encounter for long-term (current) use of medications Expected: 08/10/2024 (Approximate), Expires: 08/10/2025 [facility] Comment on above: Expected: 08/10/2024 (Approximate), Expires: 08/10/2025 Start: 08-10-2024 End: 08-10-2025 Lipid 1996 panel - Serum or Plasma Lipid panel Lab Routine Dyslipidemia ([facility]/HCC) Expected: 08/10/2024 (Approximate), Expires: 08/10/2025 [facility] Comment on above: Expected: 08/10/2024 (Approximate), Expires: 08/10/2025 Start: 08-10-2024 End: 08-10-2025 Microalbumin/Creatinine panel in random Urine Microalbumin / creatinine, urine ratio Lab Routine Type 2 diabetes mellitus with hyperglycemia, with long-term current use of insulin ([facility]) Expected: 08/10/2024 (Approximate), Expires: 08/10/2025 [facility] Work Phone: Comment on above: Expected: 08/10/2024 (Approximate), Expires: 08/10/2025 Start: 08-10-2024 End: 08-10-2025 Thyrotropin [Units/volume] in Serum or Plasma TSH Lab Routine Abnormal TSH Expected: 08/10/2024 (Approximate), Expires: 08/10/2025 [facility] Comment on above: Expected: 08/10/2024 (Approximate), Expires: 08/10/2025 Start: 08-10-2024 End: 08-10-2025 Thyroxine (T4) free [Mass/volume] in Serum or Plasma T4, free Lab Routine Abnormal TSH Expected: 08/10/2024 (Approximate), Expires: 08/10/2025 [facility] Comment on above: Expected: 08/10/2024 (Approximate), Expires: 08/10/2025 Start: 08-10-2024 End: 08-10-2024 Patient encounter procedure [facility] Comment on above: Arrived Start: 08-03-2024 End: 08-03-2024 Social Work 08/03/2024 3:00 PM EDT Social Work [facility] [address] [place] [phone] Dc Jackson, [facility] [address] [place] [address] [facility] Start: 07-20-2024 End: 07-20-2024 Patient encounter procedure 07/20/2024 9:00 AM EDT Office Visit [facility] [address] [place] [address] Jacquelyn Huitron PA [address] [facility] [place] [address] [facility] Start: 07-16-2024 End: 07-16-2024 Clinical Support [facility] Comment on above: Arrived Start: 06-22-2024 Urine screening for protein Diabetes: [facility]rine [facility] Start: 06-15-2024 End: 06-15-2024 Social Work 06/15/2024 2:00 PM EST Social Work [facility] [address] [place] [phone] Dc Jackson, [facility] [address] [place] [address] [facility] Start: 06-11-2024 End: 06-11-2024 Clinical Support 06/11/2024 2:35 PM EST Clinical Support [facility] [address] [place] [phone] Sara K[address], [address]AD ENGINEER FREIGHT [address] [facility] [address] Chen [address] [place] [address] [facility] Start: 06-02-2024 End: 06-02-2024 Patient encounter procedure 06/02/2024 9:00 AM EST Office Visit [facility] OB [address] [place] [phone] Jacquelyn Huitron PA [address] [facility] [place] [address] [facility] Start: 05-18-2024 End: 05-18-2024 Social Work 05/18/2024 1:00 PM EST Social Work [facility] [address] [place] [address] Dc Jackson, [facility] [address] [place] [address] [facility] Start: 05-14-2024 End: 05-14-2024 Patient encounter procedure 05/14/2024 9:00 AM EST Office Visit [facility] OB [address] [place] [place] [phone] Jacquelyn Huitron PA [address] [facility] [place] [address] [facility] Start: 05-13-2024 Annual Wellness Visi t (Medicare Advantage) Annual Wellness Visit (Medicare Advantage) [facility] Start: 05-11-2024 End: 05-11-2024 Patient encounter procedure [facility] Comment on above: Arrived Start: 04-15-2024 End: 04-15-2024 Clinical Support 04/15/2024 8:00 AM EST Clinical Support [facility] [address] [facility] [address] [place] [phone] Sara Kramer, ROAD ENGINEER FREIGHT [address] [facility] Dr Chen [address] [place] [address] [facility] 210 Start: 04-14-2024 End: 04-14-[address] [facility] Comment on above: Non-DHE #3 Infusion Day 3 Start: 04-09-2024 Influenza vaccination Influenza Vacc ine (#1) [facility] Comment on above: Postponed from 01/11 (Other Patient Reasons) Start: 04-08-2024 End: 04-08-2024 Patient encounter procedure 04/08/2024 8:30 AM EST Office Visit Neurology [address] [place] [address] 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 APRN.CABLE BRAIDER [address] [place] [address] [employer] Q12 weeks authorized er 04/02/2025 Neurology [...] 03/30/2024 8:15 AM EST Office Visit [facility] [address] JUNGGISELLE CHEN [address] [place] [address], [place] [phone] Sara Kramer, ROAD ENGINEER FREIGHT [address] Chen [address] [place] [address], [place] [address] [facility] NE[facility] 210 Start: 03-24-2024 End: 03-24-2024 Social Work 03/24/2024 11:00 AM EST Social Work [facility] [address] [place] [address] Dc Jackson, [facility] [address] [place] [address] [facility] Start: 03-19-2024 End: 03-19-2024 Patient encounter procedure 03/19/2024 2:30 PM EST Office Visit [facility] [address] [place] [phone] Josh Ochoa MD [address] [place] [id number] [facility] Start: 03-11-2024 End: 03-11-2024 Patient encounter procedure 03/11/2024 9:30 AM EDT Office Visit Neurology [address] [place] [address] 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 APRN.CABLE BRAIDER [address] [place] [address] Botox Neurology Comment on above: Botox Start: 03-05-2024 Glaucoma screening Diabetes: R etinopathy Screening [facility] Start: 02-27-2024 Medicare Annual Well ness (AWV) Medicare Annual Wellness (AWV) [facility] Start: 02-26-2024 End: 02-26-2024 Clinical Support [facility] 210 Comment on above: Arrived Start: 02-17-2024 End: 02-17-2024 Social Work 02/17/2024 2:00 PM EDT Social Work [facility] [address] [place] [phone] Dc Jackson, [facility] [address] [place] [address] [facility] Start: 01-28-2024 End: 01-28-2024 Clinical Support 01/28/2024 9:00 AM EDT Clinical Support [facility] 210 [address] [place] [address], [place] [address] Sara Kramer, ROAD ENGINEER FREIGHT [address] [place] [address], [place] [address] [facility] 210 Start: 01-23-2024 End: 01-23-2024 Social Work 01/23/2024 2:00 PM EDT Social Work [facility] [address] [place] [address] Dc Jackson, [facility] [address] [place] [address] [facility] Start: 01-12-2024 Covid-19 Vaccine ( season) Covid-19 Vaccine () [facility] Start: 01-12-2024 Influenza vaccination Influenza Vacc ine (#1) [facility] Start: 12-21-2023 Hemoglobin A1c measurement Diabetes: Hemoglobin A1C [facility] Start: 08-29-2023 Screening for malign ant neoplasm of breast [facility] Start: 08-01-2023 End: 08-01-2023 Clinical Support 08/01/2023 1:40 PM EDT Clinical Support [facility] [address] [place] [address] Olu Arce MD [address] [facility] [address] Chen [address] [place] [address] [facility] Start: 07-15-2023 End: 07-15-2023 Patient encounter procedure 07/15/2023 8:15 AM EST Office Visit [facility] [address] [place] [address] Josh Ochoa MD [address] [place] [address] [facility] Start: 07-02-2023 End: 07-02-2023 Patient encounter procedure 07/02/2023 12:00 PM EST Office Visit [facility] [address] CHEN [address] [place] [phone] ENGINEER FREIGHT [address] [facility] Dr Chen [address] [place] [address] [facility] 210 Start: 07-01-2023 End: 07-01-2023 Social Work 07/01/2023 10:00 AM EST Social Work [facility] [address] [place] [address] Dc Jackson, [facility] [address] [place] [address] [facility] Start: 06-20-2023 End: 06-20-2023 Patient encounter procedure 06/20/2023 2:15 PM EST Office Visit [facility] [address] [place] [address] Josh Ochoa MD [address] [place] [address] Arrived [facility] Comment on above: Arrived Start: 06-20-2023 End: 06-20-2024 Albumin, urine, random Albumin, urine, random Lab Routine Type 2 diabetes mellitus with hyperglycemia, with long-term current use of insulin ([facility]) Expected: 06/20/2023 (Approximate), Expires: 06/20/2024 [facility] Comment on above: Expected: 06/20/2023 (Approximate), Expires: 06/20/2024 Start: 06-20-2023 End: 06-20-2024 Hemoglobin A1c measurement Hemoglobin A1c Lab Routine Type 2 diabetes mellitus with hyperglycemia, with long-term current use of insulin (CMS/HCC) Expected: 06/20/2023 (Approximate), Expires: 06/20/2024 [facility] Work Phone: Comment on above: Expected: 06/20/2023 (Approximate), Expires: 06/20/2024 Start: 05-13-2023 Behavioral Health Screening Behavioral Health Screening [facility] Start: 01-11-2023 Covid-19 Vaccine () Covid-19 Vaccine () [facility] Start: 01-11-2023 Influenza vaccination [facility] Start: 09-07-2022 Adult depression screening assessment DEPRESSION SCREENING [facility] Start: 09-06-2022 [facility] Start: 09-06-2022 [facility] Start: 05-13-2022 DEPRESSION ASSESSMENT DEPRESSION ASS ESSMENT [facility] Start: 01-11-2022 Influenza vaccination [facility] Start: 05-13-2021 DEPRESSION ASSESSMENT DEPRESSION ASS ESSMENT [facility] Start: 05-01-2021 COVID-19 VACCINE (3 - Booster for Moderna series) COVID-19 VACCINE (3 - Booster for Moderna series) [facility] Start: 01-24-2021 COVID-19 VACCINE (3 - Booster for Moderna series) COVID-19 VACCINE (3 - Booster for Moderna series) [facility] Start: 01-24-2021 COVID-19 VACCINE (3 - Moderna series) COVID-19 VACCINE (3 - Moderna series) [facility] Start: 09-01-2019 COLOGUARD (FIT-DNA) COLOGUARD (FIT-D NA) [facility] Start: 09-01-2019 Colonoscopy COLONOSCOPY [facility] Start: 09-01-2019 COLORECTAL CANCER SCREENING COLORECTAL CANCER SCREENING [facility] Start: 09-01-[address] COLONOGRAPHY [facility] Start: 09-01-2019 DIABETES SCREEN DIABETES SCREEN [facility] Start: 09-01-2019 FECAL OCCULT BLOOD FECAL OCCULT BLOO D [facility] Start: 09-01-2019 Lipid 1996 panel - S sophia or Plasma Lipid Screening [facility] Start: 09-01-2019 Lipid panel Lipid Screening [facility] Start: 09-01-2019 LIPID SCREEN LIPID SCREEN [facility] Start: 09-01-2019 Screening for malign ant neoplasm of colon [facility] Start: 09-01-2019 SIGMOIDOSCOPY SIGMOIDOSCOPY [facility] Start: 2014 Mammography [facility] Start: 2009 Diabetes screen Diabetes screen [facility] Start: 2004 HPV TESTING HPV TESTING [facility] Start: 2004 Screening for malign ant neoplasm of cervix [facility] Start: 2004 Zoledronic acid therapy ALPHA- 1 ANTITRYPSIN DEFICIENCY SCREENING [facility] Start: 09-01-1995 PAP TESTING PAP TESTING [facility] Start: 09-01-1995 Screening for malign ant neoplasm of cervix [facility] Start: 1993 DTaP/Tdap/Td vaccine (1 - Tdap) DTaP/Tdap/Td vaccine (1 - Tdap) [facility] Start: 1993 Hepatitis B Vaccine (1 of 3 - 19+ 3-dose series) Hepatitis B Vaccine (1 of 3 - 19+ 3-dose series) [facility] Start: 1993 Urine microalbumin profile [facility] Start: 1993 Urine screening for protein Diabetes: Urine Protein Screening [facility] Start: 1992 ANNUAL PCP TEAM BOAT BUILDER AND REPAIRER SILVANO DISEASE VISIT ANNUAL PCP TEAM CHRONIC DISEASE VISIT [facility] Start: 1992 Anxiety Screening Anxiety Screening [facility] Start: 1992 Depression Screening Depression Scre ening [facility] Start: 1992 HEPATITIS C SCREENING HEPATITIS C SC REENING [facility] Start: 1992 Hepatitis C screening [facility] Start: 1992 HIV SCREENING HIV SCREENING [facility] Start: 1992 HIV screening HIV Screening [facility] Start: 1992 SPIROMETRY SPIROMETRY [facility] Start: 1989 HIV screening HIV screen [facility] Start: 1986 Depression Screen [facility] Start: 1984 Glaucoma screening Diabetes: R etinopathy Screening [facility] Start: 1984 Lipid panel Lipids [facility] Start: 1980 PNEUMOCOCCAL (1 - PCV) PNEUMOCOCCAL (1 - PCV) [facility] Start: 1980 Pneumococcal vaccination Pneum ococcal Vaccine (1 - PCV) [facility] Start: 1974 Hemoglobin A1c measurement Diabetes: Hemoglobin A1C [facility] Start: 1974 HEPATITIS B (1 of 3 - 3-dose series) HEPATITIS B (1 of 3 - 3-dose series) [facility] Start: 1974 Hepatitis B Vaccine (1 of 3 - 3-dose series) Hepatitis B Vaccine (1 of 3 - 3-dose series) [facility] Start: 1974 Screening for malign ant neoplasm of lung Lung Cancer Screening Shared Decision Making [facility] End: 10-08-2024 Njx dx/ther agt pvrt facet jt lmbr/sac 1 level INJ DX/THER AGNT PARAVERT FACET JOINT, LUMBAR/SAC, 1ST LEVEL Procedures Routine Lumbosacral spondylosis without myelopathy 1 Occurrences starting 10/08/2024 until 10/08/2024 [facility] tapviva Comment on above: 1 Occurrences starti ng 10/08/2024 until 10/08/2024 Patient Education [facility] Work Phone: Patient referral [facility] Work Phone: End: 09-16-2024 XR Cervical spine 4 or 5 Views Kimeltu Comment on above: 1 Occurrences starti ng 09/16/2024 until 09/16/2024 End: 09-16-2024 XR Lumbar spine 4 Views Viyet Comment on above: 1 Occurrences starti ng 09/16/2024 until 09/16/2024 End: 09-16-2024 XR Shoulder - left 2 Views [facility]elt[facility] Comment on above: 1 Occurrences starti ng 09/16/2024 until 09/16/2024 [facility] Immunizations Immunization Date Immunization Notes Care Provider Fa [facility] 03-04-2023 Pneumococcal Conjuga te PCV 20 Dc Jackson [facility] Work Phone: [facility] 03-04-2023 SARS-COV-2 (COVID-19 ) vaccine, mRNA, spike protein, LNP, PF, 50 mcg/0.5 mL Dc Jackson [facility] Work Phone: [facility] 03-04-2023 Seasonal, quadrivale nt, recombinant, injectable influenza vaccine, preservative free Dckhalida Jackson [facility] Work Phone: [facility] 03-04-2023 influenza virus vaccine, unspecified formulation Dckhalida Jackson [facility] Work Phone: [facility] 11-29-2020 COVID-19 mRNA-1273 (Willama) MD Josh Ochoa Work Phone: [facility] 11-01-2020 COVID-19 mRNA-1273 (Neal) MD Josh Ochoa Work Phone: [facility] Payers Date Payer Category Payer Self-pay [id number] 2023 Unknown [id number] 2023 Medicaid [id number] 2023 Medicare (Managed Care) AESOTO LUNA [id number] .[id number] 2023 Medicare [id number] 1.2.840.091904.1.13.239.2 .7.9.261279.2549.315 2022 Private Health Insurance 1.2 .840.211986.1.13.693.2 .[id number] 2022 Unknown [id number] 2019 Medicare [id number] 1.13.159.2 .[id number] 2018 Unknown MMO MMO SU[employer]US [id number] 2018-Present [phone] [address] [place] [address] PPO [id number] 1.2.840.488348.1.13.159.2 .7.3.319407.315 2016 Government (not [facility] care or Medicaid) [facility] Address: [address] [facility], [address] [address] 1.2.840.112899.1.13.159.2 .[id number] 2016 Unknown 1.2.840.142207. 1.13.159.2 .7.3.554443.315 2016 Unknown [id number] 1974 Unknown [id number] 2.16.840.1.792820.3.579.2 .647 1974 Unknown [id number] 2.16.840.1.156652.3.579.2 .647 1974 Unknown [id number] 2.16.840.1.793423.3.579.2 .647 1974 Unknown [id number] 2.16.840.1.133812.3.579.2 .647 1974 Unknown [id number] 2.16.840.1.911836.3.579.2 .593 1974 Unknown [id number] 2.16.840.1.468412.3.579.2 .593 1974 Unknown [id number] 2.16.840.1.287687.3.579.2 .593 1974 Unknown [id number] 2.16.840.1.536956.3.579.2 .593 1974 Unknown [id number] 2.16.840.1.508617.3.579.2 .593 1974 Unknown [id number] 2.16.840.1.738491.3.579.2 .593 1974 Unknown [id number] 2.16.840.1.725512.3.579.2 .593 1974 Unknown [id number] 2.16.840.1.366358.3.579.2 .593 1974 Unknown [id number] 2.16.840.1.726482.3.579.2 .593 1974 Unknown [id number] 2.16.840.1.747294.3.579.2 .182 1974 Unknown [id number] 2.16.840.1.861357.3.579.2 .182 1974 Unknown [id number] 2.16.840.1.774071.3.579.2 .1974 Unknown [id number] 2.16.840.1.096732.3.579.2 .182 1974 Unknown [id number] 2.16840.1.414159.3.579.2 .1258 1974 Unknown [id number] 2.16.840.1.523372.3.579.2 .1258 1974 Unknown [id number] 2.16840.1.781319.3.579.2 .1258 1974 Unknown [id number] 2.16840.1.296623.3.579.2 .1258 1974 Unknown [id number] 2.840.1.816832.3.579.2 .1258 1974 Unknown [id number] 2.16840.1.803855.3.579.2 .1258 1974 Unknown [id number] 2.16840.1.240522.3.579.2 .1258 1974 Unknown [id number] 2.16840.1.625188.3.579.2 .1258 1974 Unknown [id number] 2.16840.1.046251.3.579.2 .1258 1974 Unknown [id number] 2.16840.1.456664.3.579.2 .1258 1974 Unknown [id number] 2.16840.1.824122.3.579.2 .1258 1974 Unknown [id number] 2.16.840.1.159483.3.579.2 .1258 1974 Unknown [id number] 2.16840.1.164854.3.579.2 .9 1974 Unknown [id number] 2.16.840.1.957194.3.579.2 .9 1974 Unknown [id number] 2.16.840.1.328492.3.579.2 .9 1974 Unknown [id number] 2.16.840.1.882248.3.579.2 .1258 1974 Unknown [id number] 2.16.840.1.880890.3.579.2 .1258 1974 Unknown [id number] 2.16.840.1.184291.3.579.2 .1258 1974 Unknown [id number] 2.16.840.1.938688.3.579.2 .1258 1974 Unknown [id number] 2.16.840.1.218150.3.579.2 .8 1974 Unknown [id number] 2.16.840.1.457246.3.579.2 .718 1959 Medicare [id number] 2.16.840.1.150767.19 1959 Unknown [id number] 1959 Worker's Compensation [id number] Private Health Insurance [employer] [id number] [facility] [id number] Unknown [id number] 2.16.840.1.269745.3.579.2 .531 Social History Date Type Detail Facility Start: 08-01-2016 End: 04-08-2024 Tobacco smoking status NHIS Smokes tobacco daily [facility] Start: 08-01-2016 End: 08-10-2024 Cigarettes smoked current (pack per day) - Reported 1 [facility] Start: 08-01-2016 End: 04-08-2024 Tobacco use and exposure User of smokeless tobacco [facility] Start: 09-07-2021 End: 12-04-2024 Alcohol intake Current non-drinker of alcohol (finding) [facility] Start: 1975 Sex Assigned At Not on file [facility] Start: 08-28-2021 End: 01-09-2022 Exposure to SARS-CoV-2 (event) Not sure [facility] Start: 01-02-2023 End: 08-10-2024 Sex Assigned At [facility] Start: 07-28-1999 End: 07-27-2022 History of tobacco use Cigarette Smoker [facility] Work Phone: Start: 07-28-1999 End: 07-27-2022 Tobacco smoking status INIS Smoker (finding) [facility] Start: 1975 Sex Assigned At Female [facility] Start: 08-27-2022 End: 11-20-2023 Tobacco smoking status INIS Ex-smoker (finding) [facility] Adult Depression Screening Assessment 4 [facility] Start: 06-17-2023 End: 11-20-2023 Tobacco use and exposure Smokeless tobacco non-user [facility] Start: 06-17-2023 End: 12-23-2024 Alcohol intake Lifetime non-drinker (finding) [facility] Start: 05-14-2023 Alcohol Comment caffeine intak e: maybe 1 coffee or pop cups per day [facility] Start: 09-16-2024 Tobacco smoking stat us [facility] Never smoked tobacco [facility] Start: 06-21-2012 Sex Female (finding) [facility] Procedure Code Equipment Code Equipment Origin al Text Equipment Identifier Dates [id number], [id number], [id number], [id number] Start: 10-09-2019 End: 06-17-2025 Comment on above: use test strip to te st BLOOD SUGAR FOUR TIMES DAILY use with insulin FOU R TIMES DAILY Goals Date Patient Goal Desired Activity /State Clinical Notes 04-24-2005 to 12-23-2024 Olu Arce MD - 12/23/2024 8:00 AM RT Aliya. R - 12/23/2024 8:00 AM EDTPKinga Meyer APRN.CABLE BRAIDER - 12/04/2024 8:59 AM EDTPatient InstructionsPatient Instructions [...] under the care of Dr. Samano at [facility], who suggested scheduling another set of injections. [...] Lyrica. This clinical note was created utilizing DecisionView system. All information has been thoroughly reviewed, [...] under the care of Dr. Samano at [facility], who suggested scheduling another set of injections. [...] Lyrica. This clinical note was created utilizing [employer] documentation system. All information has been thoroughly reviewed, corrected as necessary, and authenticated by the provider to ensure accuracy and completeness. On occasion, JOEL ambient documentation system erroneously drops words or replaces a spoken word with a similar sounding word. Please notify with any questions or concerns regarding this clinical note. documented in this encounter [facility] 12-04-2024 Note Spoke with patient a nd she would prefer to start warfarin instead of paying for Eliquis or Xarelto. Referral faxed to the management clinic here at [facility] per patient request. [facility] 12-04-2024 Instructions 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 APRN.[facility] - 12/04/2024 9:16 AM EDT Images from the original note were not included. [facility] [place] Frequently Asked Questions about Botox Treatment for [...] Botox to understand your coverage and any yab-yf-nwgrdl costs. Botox injections are scheduled every 12-13 [...] If you haven t heard from a audio/visual operator within 1-2 weeks, please call our office at [phone] (select option 1 for Botox schedulers). Feel free to contact us with any other questions or concerns about Botox: Bank Vault Attendant [phone] or [email or web address] Once my appointment is scheduled, how [...] Botox to understand your coverage and any uua-qo-swabsn costs. Do I need a driver license reviewing officer? No; however, if it is the first [...] , or . documented in this encounter [facility] 12-04-2024 Note HNO ID: [id number] Author: KINGA MENDES APRN.CNP Service: ? Author [...] (97.5 ?F) (Oral) Resp 21 Patient name: Jacuqelyn Zeng : 1975 ALLERGIES Allergen Reactions Desonide Other: See Comments patient unaware but hx of TBI so she may not recall Latex Anaphylaxis, Itching Ciprofloxacin Unknown Codeine Hives Compazine [Prochlor* Intolerance Restless Erythromycin Hives Latex Itching Penicillin V Hives Sulfa (Sulfonamide * Hives UNIVERSAL PROTOCOL / SAFETY CHECKLIST Procedure: Onabotulinum toxin A for migraine Informed Consent Consent Obtained: Written [place] Protocol A moment to CARE was completed [...] collected. Written Consent Obtained: Written LOT #: [id number] Expiration Date: Month: 10 Year: 2026 Injection Sites Left (Units) Left (Sites) Right (Units) Right (Sites) TOTAL (Units) Delivery Driver/Supervisor 5 1 5 1 10 Procerus Units: [...] Gabapentin (Neurontin) Oxcarb (more content not included)... [facility] 12-04-2024 Procedure note Images from [...] for migraine Informed Consent Consent Obtained: Written [place] Protocol A moment to CARE was completed [...] collected. Written Consent Obtained: Written LOT #: [id number] Expiration Date: Month: 10 Year: 2026 Injection Sites Left (Units) Left (Sites) Right (Units) Right (Sites) TOTAL (Units) Delivery Driver/Supervisor 5 1 5 1 10 Procerus Units: [...] the Counter Medications Acetaminophen (Tylenol) 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 APRN.CABLE BRAIDER [facility] 12-04-2024 Procedure note Images from the original [...] for migraine Informed Consent Consent Obtained: Written [place] Protocol A moment to CARE was completed [...] collected. Written Consent Obtained: Written LOT #: [id number] Expiration Date: Month: 10 Year: 2026 Injection Sites Left (Units) Left (Sites) Right (Units) Right (Sites) TOTAL (Units) Delivery Driver/Supervisor 5 1 5 1 10 Procerus Units: [...] the Counter Medications Acetaminophen (Tylenol) 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 APRN.CABLE BRAIDER documented in this encounter [facility] 10-22-2024 History of Present illness Narrative Images [...] extensive degeneration. She has not visited the [facility] recently and does not require any medication [...] in all four extremities, including at least director recreation, finger abductors, biceps, triceps, deltoid, toe flexors [...] extensive degeneration. She has not visited the [facility] recently and does not require any medication [...] extensive degeneration. She has not visited the [facility] recently and does not require any medication [...] MD This clinical note was created utilizing [employer] documentation system. All information has been thoroughly reviewed, corrected as necessary, and authenticated by the provider to ensure accuracy and completeness. On occasion, JOEL[employer] documentation system erroneously drops words or replaces a spoken word with a similar sounding word. Please notify with any questions or concerns regarding this clinical note. documented in this encounter [facility] 10-12-2024 History of Present illness Narrative Associated [...] 750 MG tablet documented in this encounter [facility] 09-22-2024 Note REASON FOR VISIT: Jacquelyn Zeng [...] Diabetes education: [No] Seen by a certified nutritionist (CDE) within 12 months Meal plan: [No] Seen by a svp digital sales within 12 months [ ] Consistent carbohydrate [...] satiety [Yes] Feet numbness/pain/tingling [Yes] Patient seeing beam press operator/cutter operator regularly [Yes] Patient seeing dentist regularly [No] Patient seeing psychiatric nurse practitioner regularly REVIEW OF SYSTEMS Review of Systems [...] are appropriate. LABS (more content not included)... [facility] 09-11-2024 Instructions 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 APRN.CABLE BRAIDER - 09/11/2024 11:44 AM EDT Images from the original note were not included. [facility] [place] Frequently Asked Questions about Botox Treatment for [...] Botox to understand your coverage and any amx-jl-kcidiz costs. Botox injections are scheduled every 12-13 [...] If you haven t heard from a audio/visual operator within 1-2 weeks, please call our office at [phone] (select option 1 for Botox schedulers). Feel free to contact us with any other questions or concerns about Botox: Bank Vault Attendant [phone] or [email or web address] Once my appointment is scheduled, how [...] Botox to understand your coverage and any smi-dy-jcagoa costs. Do I need a driver license reviewing officer? No; however, if it is the first [...] , or . documented in this encounter [facility] 09-11-2024 Note HNO ID: [id number] Author: KINGA MENDES APRN.CABLE BRAIDER Service: ? Author Type: Nurse Practitioner Type: [...] for migraine Informed Consent Consent Obtained: Written [place] Protocol A moment to CARE was completed [...] collected. Written Consent Obtained: Written LOT #: [id number] Expiration Date: Month: 4 Year: 2026 Injection Sites Left (Units) Left (Sites) Right (Units) Right (Sites) TOTAL (Units) Delivery Driver/Supervisor 5 1 5 1 10 Procerus Units: [...] XL, Qudexy) Anti-D (more content not included)... [facility] 09-11-2024 Procedure note Images from [...] for migraine Informed Consent Consent Obtained: Written [place] Protocol A moment to CARE was completed [...] collected. Written Consent Obtained: Written LOT #: [id number] Expiration Date: Month: 4 Year: 2026 Injection Sites Left (Units) Left (Sites) Right (Units) Right (Sites) TOTAL (Units) Delivery Driver/Supervisor 5 1 5 1 10 Procerus Units: [...] the Counter Medications Acetaminophen (Tylenol) 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 APRN.CABLE BRAIDER T [facility] 09-11-2024 Procedure note Images from the original [...] for migraine Informed Consent Consent Obtained: Written [place] Protocol A moment to CARE was completed [...] collected. Written Consent Obtained: Written LOT #: [id number] Expiration Date: Month: 4 Year: 2026 Injection Sites Left (Units) Left (Sites) Right (Units) Right (Sites) TOTAL (Units) Delivery Driver/Supervisor 5 1 5 1 10 Procerus Units: [...] 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 APRN.MICHELLE documented in this encounter [facility] 09-10-2024 History of Present illness Narrative Images [...] Use as instructed Lancets (OneTouch Delica Plus [id number]) misc USE DIRECTED Lantus SoloStar 100 UNIT/ML [...] 75 mg, Oral, As needed nystatin (Mycostatin) 266033 UNIT/GM powder APPLY 1 application TO THE [...] At standard risk for fall CAD in [place] artery (CMS/HCC) Cervical spondylosis Chronic constipation Chronic [...] reflexes: Pia's absent. Ankle clonus absent. Coordination Rdzrkv-fh-zrbl, rapid alternating movements and caxx-ui-xspb normal bilaterally without dysmetria. Gait Normal casual, [...] (Autolet) lancing device Use as instructed Lancets (FlowMedicauch Delica Plus Fbarpd31T) misc USE DIRECTED Lantus SoloStar 100 UNIT/ML [...] 75 mg, Oral, As needed nystatin (Mycostatin) 754246 UNIT/GM powder APPLY 1 application TO THE [...] Insulin Syringe 31G X 5/16 0.5 ML [facility] [place] DIRECTED to refill pump EVERY [...] Olu Arce MD documented in this encounter [facility] 08-12-2024 Note [place] [facility] - [facility] Subjective Jacquelyn Zeng is a 48 [...] mellitus (CMS/HCC) ??? Coronary artery disease involving [place] coronary artery of [place] heart without angina pectoris ??? S/P drug [...] On 07/31/2024 she was evaluated in the [facility] emergency room because of dizziness and hypoxia and was found to be dehydrated and was treated with IV fluids. She had tachycardia with improved heart rate upon discharge. Today she reports (more content not included)... [facility] 08-10-2024 History of Present illness Narrative Associated [...] / creatinine, urine ratio Hemoglobin A1c Dyslipidemia ([facility]) Relevant Orders Lipid panel Medicare annual wellness [...] TSH T4, free documented in this encounter [facility] 06-29-2024 Telephone encounter Note Botox referral sent to pharmacy Boris CHILDRESS RN RN Clinical Clerk [facility] 06-29-2024 Miscellaneous Notes Botox referral sent to pharmacy Boris CHILDRESS RN RN Clinical Clerk [facility] documented in this encounter [facility] 06-25-2024 Note Received a message f rom [employer] stating there is an issue with primary insurance that is on file and they have not been able to contact patient. She said Our records indicate that the patient's primary insurance is [employer] which terminated on May 12, 2024. To ensure accurate coordination of benefits, the patient should contact [employer] to inform them of the change. Please contact patient to inform her of this so she can continue receiving her Dexcom G7 supply [facility] 06-23-2024 Note REASON FOR VISIT: Jacquelyn Zeng [...] not able to get dexcom g7 from [facility] due to insurance coverage. She is tolerating [...] Diabetes education: [No] Seen by a certified nutritionist (CDE) within 12 months Meal plan: [No] Seen by a svp digital sales within 12 months [ ] Consistent carbohydrate [...] satiety [Yes] Feet numbness/pain/tingling [Yes] Patient seeing beam press operator/cutter operator regularly [Yes] Patient seeing dentist regularly [No] Patient seeing psychiatric nurse practitioner regularly REVIEW OF SYSTEMS Review of Systems [...] distress currently Extre (more content not included)... [facility] 05-11-2024 History of Present illness Narrative Associated [...] 750 MG tablet documented in this encounter [facility] 04-20-2024 Telephone encounter Note I do not see ultram on her med list or on OARRS. She will need an appt to discuss meds. [facility] Work Phone: 04-20-2024 Miscellaneous Notes I do not see ultram on her med list or on OARRS. She will need an appt to discuss meds. documented in this encounter [facility] 04-14-2024 History of Present illness Narrative Headache [...] spontaneous and fluent without dysarthria. Short and golf club maker memory, cognition and general fund of knowledge [...] which included preparing to see the patient, anlj-ae-lvaj patient care, completing clinical documentation, obtaining and/or reviewing separately obtained history, performing a medically appropriate examination, and counseling and educating the patient/family/caregiver. Marilynn Lua PA-C Headache Section [facility] April 14, 2024 documented in this encounter [facility] 04-14-2024 Note HNO ID: [id number] Author: MARILYNN LUA PA-C Service: ? Author Type: Physician Advertising Material Distributor Type: Progress Notes Filed: 04/14/2024 10:22 Note [...] % lotionammonium lactate 12 % lotionDisp: Rfl: KinesenseTOUCH ULTRA BLUE TEST STRIP test stripuse test [...] spontaneous and fluent without dysarthria. Short and nursing home memory, cognition and general fund of knowledge are good. Attention span and concentration are excellent. Cranial Nerves: VII-face is symmetric without evidence of weakness. VIII-hearing intact. Assessment: (G43.901) Status migrainosus (primary encounter diagnosis) Plan: Jacquelyn Zeng is a 48 year old year old female, with a history of chronic migraine, asthma, chronic pancreatitis, colloid cyst of brain, muriel (more content not included)... [facility] 04-14-2024 Note HNO ID: [id number] Author: ALEX LOU RN Service: ? Author Type: Registered Nurse Type: Progress Notes Filed: 04/14/2024 10:58 Note Text: Patient in for day 3 of IV infusions. Patient rated headache 7/10. Patient stated severe nausea and moderate dizziness. Patient educated on medications to be administered and a driver license reviewing officer to transport home was confirmed. Patient verbalized understanding and agreed to proceed with infusions. Pt presented today with N/V. D/t restlessness with compazine yesterday, order for zofran received and given PRN benadryl and pepcid given Pts infusions complete. Pt tolerated infusion well. Pt rated headache 3/10. Pt stated mild nausea and mild dizziness. Pt discharged from treatment room. [facility] 04-14-2024 History of Present illness Narrative Patient in for day 3 of IV infusions. Patient rated headache 7/10. Patient stated severe nausea and moderate dizziness. Patient educated on medications to be administered and a driver license reviewing officer to transport home was confirmed. Patient verbalized understanding and agreed to proceed with infusions. Pt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 (attention [...] episode, mild (HCC) (CMS/HCC) Generalized anxiety disorder ([facility]) Generalized anxiety disorder Type 2 diabetes mellitus with polyneuropathy ([facility]) Type II or unspecified type diabetes mellitus with neurological manifestations, not stated as uncontrolled Dysuria Breast cancer screening by mammogram Trochanteric bursitis of both hips- Primary documented in this encounter [facility]* Diagnosis Type 2 diabetes mellitus with hyperglycemia, with long-term current use of insulin ([facility])- Primary Benign essential HTN ([facility]) ADD (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 deficit disorder without mention of hyperactivity MDD (major depressive disorder), recurrent episode, mild (HCC) ([facility]) Generalized anxiety disorder ([facility] Generalized anxiety disorder Mild intermittent asthma without complication ([facility]) Complex regional pain syndrome type 1, affecting unspecified site Mixed hyperlipidemia ([facility]) Mixed hyperlipidemia group home (current) use of insulin (Z79.4) ADD (attention deficit disorder) without hyperactivity- Primary Attention deficit disorder without mention of hyperactivity Type 2 diabetes mellitus with hyperglycemia, with long-term current use of insulin ([facility]) Benign essential HTN ([facility]/HCC) MDD (major depressive disorder), recurrent episode, mild (HCC) ([facility]) Generalized anxiety disorder ([facility]) Generalized anxiety disorder Type 2 diabetes mellitus with hyperglycemia, with long-term current use of insulin ([facility])- Primary Benign essential HTN ([facility]/HCC) ADD (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 deficit disorder without mention of hyperactivity MDD (major depressive disorder), recurrent episode, mild (HCC) ([facility]) Generalized anxiety disorder ([facility] Generalized anxiety disorder Type 2 diabetes mellitus with polyneuropathy ([facility]) Type II or unspecified type diabetes mellitus with neurological manifestations, not stated as uncontrolled Dysuria Breast cancer screening by mammogram Intractable chronic migraine without aura and without status migrainosus ([facility])- Primary Cervical spondylosis Cervical spondylosis without myelopathy Lumbar spondylosis Lumbosacral spondylosis without myelopathy Complex regional pain syndrome type 1, affecting unspecified site Trochanteric bursitis of both hips documented in this encounter [facility]* Diagnosis Intractable chronic migraine without aura and without status migrainosus- Primary Chronic migraine without aura, with intractable migraine, so stated, without mention of status migrainosus Chronic daily headache Headache Status migrainosus Variants of migraine, not elsewhere classified, without mention of intractable migraine without mention of status migrainosus [facility] Status migrainosus- Primary Variants of migraine, not elsewhere classified, without mention of intractable migraine without mention of status migrainosus [facility] Diagnosis Status migrainosus- Primary Variants of migraine, not elsewhere classified, without mention of intractable migraine without mention of status migrainosus [facility] Diagnosis Status migrainosus- Primary Variants of migraine, not elsewhere classified, without mention of intractable migraine without mention of status migrainosus [facility] Diagnosis Status migrainosus- Primary Variants of migraine, not elsewhere classified, without mention of intractable migraine without mention of status migrainosus [facility] Diagnosis Status migrainosus- Primary Variants of migraine, not elsewhere classified, without mention of intractable migraine without mention of status migrainosus [facility] Diagnosis Major depressive disorder, single episode, severe without psychotic features (HCC) ([facility]) Generalized anxiety disorder ([facility]) Generalized anxiety disorder documented in this encounter [facility]* Diagnosis Major depressive disorder, single episode, severe without psychotic features (HCC) ([facility]) Generalized anxiety disorder ([facility]) Generalized anxiety disorder Panic disorder ([facility]) Panic disorder without agoraphobia documented in this encounter [facility]* Diagnosis Generalized anxiety disorder ([facility]) Generalized anxiety disorder documented in this encounter [facility]* Diagnosis Type 2 diabetes mellitus with hyperglycemia, with long-term current use of insulin ([facility])- Primary Benign essential HTN ([facility]/HCC) ADD (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 deficit disorder without mention of hyperactivity MDD (major depressive disorder), recurrent episode, mild (HCC) ([facility]) Generalized anxiety disorder ([facility] Generalized anxiety disorder Mild intermittent asthma without complication ([facility]) Complex regional pain syndrome type 1, affecting unspecified site Mixed hyperlipidemia ([facility]) Mixed hyperlipidemia 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 (Z79.4) ADD (attention deficit disorder) without hyperactivity- Primary Attention deficit disorder without mention of hyperactivity Type 2 diabetes mellitus with hyperglycemia, with long-term current use of insulin ([facility]) Benign essential HTN (CMS/HCC) MDD (major depressive disorder), recurrent episode, mild (HCC) ([facility]/HCC) Generalized anxiety disorder ([facility]/HCC) Generalized anxiety disorder Type 2 diabetes mellitus with hyperglycemia, with long-term current use of insulin ([facility]/HCC)- Primary Benign essential HTN (CMS/HCC) ADD (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 deficit disorder without mention of hyperactivity MDD (major depressive disorder), recurrent episode, mild (HCC) ([facility]/HCC) Generalized anxiety disorder ([facility]/HCC) Generalized anxiety disorder Type 2 diabetes mellitus with polyneuropathy ([facility]) Type II or unspecified type diabetes mellitus with neurological manifestations, not stated as uncontrolled Dysuria Breast cancer screening by mammogram Type 2 diabetes mellitus with hyperglycemia, with long-term current use of insulin ([facility])- Primary Benign essential HTN ([facility]/HCC) ADD (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 deficit disorder without mention of hyperactivity MDD (major depressive disorder), recurrent episode, mild (HCC) ([facility]) Generalized anxiety disorder ([facility]) Generalized anxiety disorder Type 2 diabetes mellitus with polyneuropathy ([facility]) Type II or unspecified type diabetes mellitus with neurological manifestations, not stated as uncontrolled Other chronic pancreatitis ([facility]) Acute non-recurrent pansinusitis documented [facility]* Diagnosis Type 2 diabetes mellitus with hyperglycemia, with long-term current use of insulin ([facility])- Primary Benign essential HTN ([facility]/HCC) ADD (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 deficit disorder without mention of hyperactivity MDD (major depressive disorder), recurrent episode, mild (HCC) ([facility]) Generalized anxiety disorder ([facility] Generalized anxiety disorder Mild intermittent asthma without complication ([facility]) Complex regional pain syndrome type 1, affecting unspecified site Mixed hyperlipidemia ([facility]) Mixed hyperlipidemia 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 (Z79.4) ADD (attention deficit disorder) without hyperactivity- Primary Attention deficit disorder without mention of hyperactivity Type 2 diabetes mellitus with hyperglycemia, with long-term current use of insulin ([facility]/HCC) Benign essential HTN ([facility]/HCC) MDD (major depressive disorder), recurrent episode, mild (HCC) ([facility]) Generalized anxiety disorder ([facility]) Generalized anxiety disorder Type 2 diabetes mellitus with hyperglycemia, with long-term current use of insulin ([facility])- Primary Benign essential HTN ([facility]/HCC) ADD (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 deficit disorder without mention of hyperactivity MDD (major depressive disorder), recurrent episode, mild (HCC) ([facility]) Generalized anxiety disorder ([facility]) Generalized anxiety disorder Type 2 diabetes mellitus with polyneuropathy ([facility]) Type II or unspecified type diabetes mellitus with neurological manifestations, not stated as uncontrolled Dysuria Breast cancer screening by mammogram Type 2 diabetes mellitus with hyperglycemia, with long-term current use of insulin ([facility])- Primary Benign essential HTN ([facility]/HCC) ADD (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 deficit disorder without mention of hyperactivity MDD (major depressive disorder), recurrent episode, mild (HCC) ([facility]) Generalized anxiety disorder ([facility]) Generalized anxiety disorder Type 2 diabetes mellitus with polyneuropathy ([facility]) Type II or unspecified type diabetes mellitus with neurological manifestations, not stated as uncontrolled Other chronic pancreatitis ([facility]) Acute non-recurrent pansinusitis Major depressive disorder, single episode, severe without psychotic features (HCC) ([facility]) Generalized anxiety disorder ([facility]) Generalized anxiety disorder Panic disorder ([facility]) Panic disorder without agoraphobia [facility] Diagnosis Type 2 diabetes mellitus with hyperglycemia, with long-term current use of insulin ([facility])- Primary Benign essential HTN ([facility]/HCC) ADD (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 deficit disorder without mention of hyperactivity MDD (major depressive disorder), recurrent episode, mild (HCC) ([facility]) Generalized anxiety disorder ([facility]) Generalized anxiety disorder Mild intermittent asthma without complication ([facility]) Complex regional pain syndrome type 1, affecting unspecified site Mixed hyperlipidemia ([facility]) Mixed hyperlipidemia 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 (Z79.4) ADD (attention deficit disorder) without hyperactivity- Primary Attention deficit disorder without mention of hyperactivity Type 2 diabetes mellitus with hyperglycemia, with long-term current use of insulin ([facility]) Benign essential HTN ([facility]/HCC) MDD (major depressive disorder), recurrent episode, mild (HCC) ([facility]) Generalized anxiety disorder ([facility]) Generalized anxiety disorder Type 2 diabetes mellitus with hyperglycemia, with long-term current use of insulin ([facility])- Primary Benign essential HTN ([facility]/HCC) ADD (attention deficit disorder) without hyperactivity [...] hyperglycemia, with long-term current use of insulin ([facility]/HCC)- Primary Benign essential HTN (CMS/HCC) ADD (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 deficit disorder without mention of hyperactivity MDD (major depressive disorder), recurrent episode, mild (HCC) (CMS/HCC) Generalized anxiety disorder (CMS/HCC) Generalized anxiety disorder Mild intermittent asthma without complication (CMS/HCC) Complex regional pain syndrome type 1, affecting unspecified site Mixed hyperlipidemia (CMS/HCC) Mixed hyperlipidemia 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 (Z79.4) ADD (attention [...] hyperglycemia, with long-term current use of insulin ([facility]/HCC)- Primary Benign essential HTN (CMS/HCC) ADD [...] (CMS/HCC) Acute non-recurrent pansinusitis Generalized anxiety disorder ([facility]/HCC) Generalized anxiety disorder Hyperlipidemia, unspecified ([facility]) documented in [facility] encounter [facility]* Diagnosis Type 2 diabetes mellitus with hyperglycemia, with long-term current use of insulin ([facility])- Primary Benign essential HTN (CMS/HCC) ADD (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 deficit disorder without mention of hyperactivity MDD (major depressive disorder), recurrent episode, mild (HCC) (CMS/HCC) Generalized anxiety disorder (CMS/HCC) Generalized anxiety disorder Mild intermittent asthma without complication ([facility]/HCC) Complex regional pain syndrome type 1, affecting unspecified site Mixed hyperlipidemia (CMS/HCC) Mixed hyperlipidemia group home (current) use of insulin (Z79.4) ADD (attention [...] hyperglycemia, with long-term current use of insulin ([facility]/HCC)- Primary Benign essential HTN (CMS/HCC) ADD [...] hyperglycemia, with long-term current use of insulin ([facility]/HCC)- Primary Benign essential HTN (CMS/HCC) ADD (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 deficit disorder without mention of hyperactivity MDD (major depressive disorder), recurrent episode, mild (HCC) (CMS/HCC) Generalized anxiety disorder (CMS/HCC) Generalized anxiety disorder Type 2 diabetes mellitus with polyneuropathy ([facility]) Type II or unspecified type diabetes mellitus with neurological manifestations, not stated as uncontrolled Other chronic pancreatitis ([facility]) Acute non-recurrent pansinusitis Major depressive disorder, single episode, severe without psychotic features (HCC) ([facility]/HCC) Generalized anxiety disorder ([facility]) Generalized anxiety disorder Panic disorder ([facility]) Panic disorder without agoraphobia documented in this encounter [facility]* Diagnosis Type 2 diabetes mellitus with hyperglycemia, with long-term current use of insulin ([facility])- Primary Benign essential HTN (CMS/HCC) ADD (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 deficit disorder without mention of hyperactivity MDD (major depressive disorder), recurrent episode, mild (HCC) ([facility]/HCC) Generalized anxiety disorder ([facility]) Generalized anxiety disorder Mild intermittent asthma without complication ([facility]) Complex regional pain syndrome type 1, affecting unspecified site Mixed hyperlipidemia ([facility]) Mixed hyperlipidemia group home (current) use of insulin (Z79.4) ADD (attention deficit disorder) without hyperactivity- Primary Attention deficit disorder without mention of hyperactivity Type 2 diabetes mellitus with hyperglycemia, with long-term current use of insulin ([facility]/HCC) Benign essential HTN (CMS/HCC) MDD (major depressive disorder), recurrent episode, mild (HCC) ([facility]/HCC) Generalized anxiety disorder ([facility]) Generalized anxiety disorder Type 2 diabetes mellitus with hyperglycemia, with long-term current use of insulin ([facility]/HCC)- Primary Benign essential HTN ([facility]/HCC) ADD (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 deficit disorder without mention of hyperactivity MDD (major depressive disorder), recurrent episode, mild (HCC) ([facility]/HCC) Generalized anxiety disorder ([facility]/HCC) Generalized anxiety disorder Type 2 diabetes mellitus with polyneuropathy ([facility]) Type II or unspecified type diabetes mellitus with neurological manifestations, not stated as uncontrolled Dysuria Breast cancer screening by mammogram Type 2 diabetes mellitus with hyperglycemia, with long-term current use of insulin ([facility])- Primary Benign essential HTN (CMS/HCC) ADD (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 deficit disorder without mention of hyperactivity MDD (major depressive disorder), recurrent episode, mild (HCC) ([facility]/HCC) Generalized anxiety disorder ([facility]/HCC) Generalized anxiety disorder Type 2 diabetes mellitus with polyneuropathy ([facility]) Type II or unspecified type diabetes mellitus with neurological manifestations, not stated as uncontrolled Other chronic pancreatitis Acute non-recurrent pansinusitis Medicare annual wellness visit, subsequent- Primary Type 2 diabetes mellitus with hyperglycemia, with long-term current use of insulin ([facility]) Benign essential HTN (CMS/HCC) Dyslipidemia ([facility]/HCC) Other and unspecified hyperlipidemia Encounter for long-term (current) use of medications Encounter for long-term (current) use of other medications Abnormal TSH Other chronic pancreatitis documented in this encounter [facility]* Diagnosis Type 2 diabetes mellitus with hyperglycemia, with long-term current use of insulin ([facility])- Primary Benign essential HTN ([facility]/HCC) ADD (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 deficit disorder without mention of hyperactivity MDD (major depressive disorder), recurrent episode, mild (HCC) ([facility]/HCC) Generalized anxiety disorder ([facility]/HCC) Generalized anxiety disorder Mild intermittent asthma without complication ([facility]) Complex regional pain syndrome type 1, affecting unspecified site Mixed hyperlipidemia ([facility]/HCC) Mixed hyperlipidemia 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 (Z79.4) ADD (attention deficit disorder) without hyperactivity- Primary Attention deficit disorder without mention of hyperactivity Type 2 diabetes mellitus with hyperglycemia, with long-term current use of insulin ([facility]/HCC) Benign essential HTN (CMS/HCC) MDD (major depressive disorder), recurrent episode, mild (HCC) ([facility]/HCC) Generalized anxiety disorder ([facility]/HCC) Generalized anxiety disorder Type 2 diabetes mellitus with hyperglycemia, with long-term current use of insulin ([facility]/HCC)- Primary Benign essential HTN ([facility]/HCC) ADD (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 deficit disorder without mention of hyperactivity MDD (major depressive disorder), recurrent episode, mild (HCC) ([facility]/HCC) Generalized anxiety disorder ([facility]/HCC) Generalized anxiety disorder Type 2 diabetes mellitus with polyneuropathy ([facility]) Type II or unspecified type diabetes mellitus with neurological manifestations, not stated as uncontrolled Dysuria Breast cancer screening by mammogram Type 2 diabetes mellitus with hyperglycemia, with long-term current use of insulin ([facility])- Primary Benign essential HTN ([facility]/HCC) ADD (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 deficit disorder without mention of hyperactivity MDD (major depressive disorder), recurrent episode, mild (HCC) ([facility]) Generalized anxiety disorder ([facility] Generalized anxiety disorder Type 2 diabetes mellitus with polyneuropathy ([facility]) Type II or unspecified type diabetes mellitus with neurological manifestations, not stated as uncontrolled Other chronic pancreatitis Acute non-recurrent pansinusitis Medicare annual wellness visit, subsequent- Primary Type 2 diabetes mellitus with hyperglycemia, with long-term current use of insulin ([facility]) Benign essential HTN ([facility]/HCC) Dyslipidemia ([facility]) Other and unspecified hyperlipidemia Encounter for long-term (current) use of medications Encounter for long-term (current) use of other medications Abnormal TSH Other chronic pancreatitis Generalized anxiety disorder ([facility]) Generalized anxiety disorder documented in this encounter [facility]* Diagnosis Type 2 diabetes mellitus with hyperglycemia, with long-term current use of insulin ([facility])- Primary Benign essential HTN ([facility]) ADD (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 deficit disorder without mention of hyperactivity MDD (major depressive disorder), recurrent episode, mild (HCC) ([facility]) Generalized anxiety disorder ([facility]) Generalized anxiety disorder Mild intermittent asthma without complication ([facility]) Complex regional pain syndrome type 1, affecting unspecified site Mixed hyperlipidemia ([facility]) Mixed hyperlipidemia 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 (Z79.4) ADD (attention deficit disorder) without hyperactivity- Primary Attention deficit disorder without mention of hyperactivity Type 2 diabetes mellitus with hyperglycemia, with long-term current use of insulin ([facility]) Benign essential HTN ([facility]/HCC) MDD (major depressive disorder), recurrent episode, mild (HCC) ([facility]) Generalized anxiety disorder ([facility]) Generalized anxiety disorder Type 2 diabetes mellitus with hyperglycemia, with long-term current use of insulin ([facility])- Primary Benign essential HTN ([facility]/HCC) ADD (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 deficit disorder without mention of hyperactivity MDD (major depressive disorder), recurrent episode, mild (HCC) ([facility]) Generalized anxiety disorder ([facility]) Generalized anxiety disorder Type 2 diabetes mellitus with polyneuropathy ([facility]) Type II or unspecified type diabetes mellitus [...] insulin (CMS/HCC) Benign essential HTN (CMS/HCC) Dyslipidemia ([facility]/HCC) Other and unspecified hyperlipidemia Encounter for long-term (current) use of medications Encounter for long-term (current) use of other medications Abnormal TSH Other chronic pancreatitis Major depressive disorder, single episode, severe without psychotic features (HCC) ([facility]/HCC) Generalized anxiety disorder ([facility]) Generalized anxiety disorder [facility] Intractable chronic migraine without aura and without status migrainosus- Primary Chronic migraine without aura, with intractable migraine, so stated, without mention of status migrainosus Chronic daily headache Headache documented in this encounter [facility]* Diagnosis Type 2 diabetes mellitus with hyperglycemia, with long-term current use of insulin ([facility]/HCC)- Primary Benign essential HTN (CMS/HCC) ADD (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 deficit disorder without mention of hyperactivity MDD (major depressive disorder), recurrent episode, mild (HCC) ([facility]/HCC) Generalized anxiety disorder ([facility]/HCC) Generalized anxiety disorder Mild intermittent asthma without complication ([facility]/HCC) Complex regional pain syndrome type 1, affecting unspecified site Mixed hyperlipidemia (CMS/HCC) Mixed hyperlipidemia 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 (Z79.4) ADD (attention deficit disorder) without hyperactivity- Primary Attention deficit disorder without mention of hyperactivity Type 2 diabetes mellitus with hyperglycemia, with long-term current use of insulin ([facility]/HCC) Benign essential HTN (CMS/HCC) MDD (major depressive disorder), recurrent episode, mild (HCC) (CMS/HCC) Generalized anxiety disorder ([facility]/HCC) Generalized anxiety disorder Type 2 diabetes mellitus with hyperglycemia, with long-term current use of insulin ([facility]/HCC)- Primary Benign essential HTN ([facility]) ADD (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 deficit disorder without mention of hyperactivity MDD (major depressive disorder), recurrent episode, mild (HCC) ([facility]) Generalized anxiety disorder ([facility]) Generalized anxiety disorder Type 2 diabetes mellitus with polyneuropathy ([facility]) Type II or unspecified type diabetes mellitus with neurological manifestations, not stated as uncontrolled Dysuria Breast cancer screening by mammogram Type 2 diabetes mellitus with hyperglycemia, with long-term current use of insulin ([facility])- Primary Benign essential HTN ([facility]) ADD (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 deficit disorder without mention of hyperactivity MDD (major depressive disorder), recurrent episode, mild (HCC) ([facility]) Generalized anxiety disorder ([facility] Generalized anxiety disorder Type 2 diabetes mellitus with polyneuropathy ([facility]) Type II or unspecified type diabetes mellitus with neurological manifestations, not stated as uncontrolled Other chronic pancreatitis Acute non-recurrent pansinusitis Medicare annual wellness visit, subsequent- Primary Type 2 diabetes mellitus with hyperglycemia, with long-term current use of insulin ([facility]) Benign essential HTN ([facility]) Dyslipidemia ([facility]) Other and unspecified hyperlipidemia Encounter for long-term (current) use of medications Encounter for long-term (current) use of other medications Abnormal TSH Other chronic pancreatitis Major depressive disorder, single episode, severe without psychotic features (HCC) ([facility]) Generalized anxiety disorder ([facility]) Generalized anxiety disorder Panic disorder ([facility]) Panic disorder without agoraphobia [facility] Diagnosis Localized osteoarthritis of left shoulder [facility] Diagnosis Cervical spondylosis without myelopathy Lumbosacral spondylosis without myelopathy [facility] Diagnosis Type 2 diabetes mellitus with hyperglycemia, with long-term current use of insulin ([facility])- Primary Benign essential HTN ([facility]) ADD (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 deficit disorder without mention of hyperactivity MDD (major depressive disorder), recurrent episode, mild (HCC) ([facility]) Generalized anxiety disorder ([facility] Generalized anxiety disorder Mild intermittent asthma without complication ([facility]) Complex regional pain syndrome type 1, affecting unspecified site Mixed hyperlipidemia ([facility]) Mixed hyperlipidemia group home (current) use of insulin (Z79.4) ADD (attention [...] insulin (CMS/HCC) Benign essential HTN (CMS/HCC) Dyslipidemia ([facility]/HCC) Other and unspecified hyperlipidemia Encounter for long-term (current) use of medications Encounter for long-term (current) use of other medications Abnormal TSH Other chronic pancreatitis Trochanteric bursitis of both hips- Primary Lumbar spondylosis Lumbosacral spondylosis without myelopathy Lumbar radiculopathy Thoracic or lumbosacral neuritis or radiculitis, unspecified Nerve root and plexus disorder, unspecified [facility] Diagnosis Pain Generalized pain [facility] Diagnosis Lumbosacral spondylosis without myelopathy documented in this encounter [facility]* Diagnosis Type 2 diabetes [...] unspecified site Mixed hyperlipidemia (CMS/HCC) Mixed hyperlipidemia group home (current) use of insulin (Z79.4) ADD (attention [...] hyperglycemia, with long-term current use of insulin ([facility]/HCC)- Primary Benign essential HTN (CMS/HCC) ADD [...] hyperglycemia, with long-term current use of insulin ([facility]/HCC)- Primary Benign essential HTN (CMS/HCC) ADD (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 deficit disorder without mention of hyperactivity MDD (major depressive disorder), recurrent episode, mild (HCC) ([facility]/HCC) Generalized anxiety disorder ([facility]/HCC) Generalized anxiety disorder Type 2 diabetes mellitus with polyneuropathy ([facility]/HCC) Type II or unspecified type diabetes [...] hyperglycemia, with long-term current use of insulin ([facility])- Primary Benign essential HTN (CMS/HCC) ADD (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 deficit disorder without mention of hyperactivity MDD (major depressive disorder), recurrent episode, mild (HCC) (CMS/HCC) Generalized anxiety disorder ([facility]/HCC) Generalized anxiety disorder Type 2 diabetes mellitus with polyneuropathy ([facility]) Type II or unspecified type diabetes mellitus with neurological manifestations, not stated as uncontrolled Acute non-recurrent pansinusitis documented in this encounter [facility]* Diagnosis Type 2 diabetes mellitus with hyperglycemia, with long-term current use of insulin ([facility])- Primary Benign essential HTN (CMS/HCC) ADD (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 deficit disorder without mention of hyperactivity MDD (major depressive disorder), recurrent episode, mild (HCC) ([facility]/HCC) Generalized anxiety disorder ([facility]/HCC) Generalized anxiety disorder Mild intermittent asthma without complication ([facility]) Complex regional pain syndrome type 1, affecting unspecified site Mixed hyperlipidemia ([facility]) Mixed hyperlipidemia group home (current) use of insulin (Z79.4) ADD (attention deficit disorder) without hyperactivity- Primary Attention deficit disorder without mention of hyperactivity Type 2 diabetes mellitus with hyperglycemia, with long-term current use of insulin ([facility]/HCC) Benign essential HTN (CMS/HCC) MDD (major depressive disorder), recurrent episode, mild (HCC) ([facility]/HCC) Generalized anxiety disorder ([facility]) Generalized anxiety disorder Type 2 diabetes mellitus with hyperglycemia, with long-term current use of insulin ([facility])- Primary Benign essential HTN (CMS/HCC) ADD (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 deficit disorder without mention of hyperactivity MDD (major depressive disorder), recurrent episode, mild (HCC) ([facility]/HCC) Generalized anxiety disorder ([facility]/HCC) Generalized anxiety disorder Type 2 diabetes mellitus with polyneuropathy ([facility]) Type II or unspecified type diabetes mellitus with neurological manifestations, not stated as uncontrolled Dysuria Breast cancer screening by mammogram Type 2 diabetes mellitus with hyperglycemia, with long-term current use of insulin ([facility])- Primary Benign essential HTN (CMS/HCC) ADD (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 deficit disorder without mention of hyperactivity MDD (major depressive disorder), recurrent episode, mild (HCC) ([facility]/HCC) Generalized anxiety disorder ([facility]/HCC) Generalized anxiety disorder Type 2 diabetes mellitus with polyneuropathy ([facility]) Type II or unspecified type diabetes mellitus with neurological manifestations, not stated as uncontrolled Other chronic pancreatitis Acute non-recurrent pansinusitis Medicare annual wellness visit, subsequent- Primary Type 2 diabetes mellitus with hyperglycemia, with long-term current use of insulin ([facility]) Benign essential HTN ([facility]/HCC) Dyslipidemia ([facility]) Other and unspecified hyperlipidemia Encounter for long-term (current) use of medications Encounter for long-term (current) use of other medications Abnormal TSH Other chronic pancreatitis Type 2 diabetes mellitus with hyperglycemia, with long-term current use of insulin ([facility])- Primary Benign essential HTN ([facility]) ADD (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 deficit disorder without mention of hyperactivity MDD (major depressive disorder), recurrent episode, mild (HCC) ([facility]) Generalized anxiety disorder ([facility]) Generalized anxiety disorder Type 2 diabetes mellitus with polyneuropathy ([facility]) Type II or unspecified type diabetes mellitus with neurological manifestations, not stated as uncontrolled Acute non-recurrent pansinusitis Major depressive disorder, single episode, severe without psychotic features (HCC) ([facility]) Generalized anxiety disorder ([facility]) Generalized anxiety disorder documented in this encounter [facility]* Diagnosis Type 2 diabetes mellitus with hyperglycemia, with long-term current use of insulin ([facility])- Primary Benign essential HTN ([facility]) ADD (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 deficit disorder without mention of hyperactivity MDD (major depressive disorder), recurrent episode, mild (HCC) ([facility]) Generalized anxiety disorder ([facility]) Generalized anxiety disorder Mild intermittent asthma without complication ([facility]) Complex regional pain syndrome type 1, affecting unspecified site Mixed hyperlipidemia ([facility]) Mixed hyperlipidemia group home (current) use of insulin (Z79.4) ADD (attention deficit disorder) without hyperactivity- Primary Attention deficit disorder without mention of hyperactivity Type 2 diabetes mellitus with hyperglycemia, with long-term current use of insulin ([facility]) Benign essential HTN ([facility]/HCC) MDD (major depressive disorder), recurrent episode, mild (HCC) ([facility]) Generalized anxiety disorder ([facility]) Generalized anxiety disorder Type 2 diabetes mellitus with hyperglycemia, with long-term current use of insulin ([facility])- Primary Benign essential HTN ([facility]) ADD (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 deficit disorder without mention of hyperactivity MDD (major depressive disorder), recurrent episode, mild (HCC) ([facility]) Generalized anxiety disorder ([facility]) Generalized anxiety disorder Type 2 diabetes mellitus with polyneuropathy ([facility]) Type II or unspecified type diabetes mellitus with neurological manifestations, not stated as uncontrolled Dysuria Breast cancer screening by mammogram Type 2 diabetes mellitus with hyperglycemia, with long-term current use of insulin ([facility])- Primary Benign essential HTN ([facility]) ADD (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 deficit disorder without mention of hyperactivity MDD (major depressive disorder), recurrent episode, mild (HCC) ([facility]) Generalized anxiety disorder ([facility]) Generalized anxiety disorder Type 2 diabetes mellitus with polyneuropathy ([facility]) Type II or unspecified type diabetes mellitus with neurological manifestations, not stated as uncontrolled Other chronic pancreatitis Acute non-recurrent pansinusitis Medicare annual wellness visit, subsequent- Primary Type 2 diabetes mellitus with hyperglycemia, with long-term current use of insulin ([facility]) Benign essential HTN ([facility]) Dyslipidemia ([facility]) Other and unspecified hyperlipidemia Encounter for long-term (current) use of medications Encounter for long-term (current) use of other medications Abnormal TSH Other chronic pancreatitis Generalized anxiety disorder ([facility]) Generalized anxiety disorder Type 2 diabetes mellitus with hyperglycemia, with long-term current use of insulin ([facility])- Primary Benign essential HTN ([facility]) ADD (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 deficit disorder without mention of hyperactivity MDD (major depressive disorder), recurrent episode, mild (HCC) ([facility]) Generalized anxiety disorder ([facility]) Generalized anxiety disorder Type 2 diabetes mellitus with polyneuropathy ([facility]) Type II or unspecified type diabetes mellitus with neurological manifestations, not stated as uncontrolled Acute non-recurrent pansinusitis documented in this encounter [facility]* Diagnosis Type 2 diabetes [...] affecting unspecified site Mixed hyperlipidemia Mixed hyperlipidemia group home (current) use of insulin (Z79.4) ADD (attention [...] disorder Type 2 diabetes mellitus with polyneuropathy ([facility]) Type II or unspecified type diabetes mellitus with neurological manifestations, not stated as uncontrolled Other chronic pancreatitis ([facility]) Acute non-recurrent pansinusitis Medicare annual wellness visit, [...] disorder Type 2 diabetes mellitus with polyneuropathy ([facility]) Type II or unspecified type diabetes mellitus [...] affecting unspecified site Mixed hyperlipidemia Mixed hyperlipidemia 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 (Z79.4) ADD (attention [...] disorder Type 2 diabetes mellitus with polyneuropathy ([facility]) Type II or unspecified type diabetes mellitus [...] affecting unspecified site Mixed hyperlipidemia Mixed hyperlipidemia group home (current) use of insulin (Z79.4) ADD (attention [...] daily headache Headache documented in this encounter [facility]* Diagnosis Type 2 diabetes mellitus with [...] affecting unspecified site Mixed hyperlipidemia Mixed hyperlipidemia 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 (Z79.4) ADD (attention [...] History CHOLECYSTECTOMY Hospitalization History SEE ABOVE SURGERY [employer] Other Hospital Discharge instructions Additional Instructions Avoid trauma to the surgical site.[facility] Work Phone: Reason for visit Narrative* Imaging (Routine) - Pending Review Specialty Diagnoses / Procedures Referred By Mary jenkins Referred To Contact Radiology Diagnoses Pain Procedures FLUORO FOR SURGICAL PROCEDURES Jessee Billy MD [address] [place] [address] Phone: tel: fax: Referral ID Status Reason Start Date Expiration Date V isits Requested Visits Authorized [id number] Pending Review 10/08/2024 10/08/2025 1 1 [facility] Summary Purpose Family History No Family History [...] DATE CREATED AUTHOR 01/27/2020 [facility] DATE CREATED AUTHOR AUTHOR'S ORGANIZ ATION 03/25/2021 [facility] DATE CREATED AUTHOR AUTHOR'S ORGANIZ ATION 09/02/2022 [facility] DATE CREATED AUTHOR AUTHOR'S ORGANIZ ATION 03/10/2024 [facility] DATE CREATED AUTHOR AUTHOR'S ORGANIZ ATION 10/10/2024 [facility] DATE CREATED AUTHOR AUTHOR'S ORGANIZ ATION 12/05/2024 [facility] DATE CREATED AUTHOR AUTHOR'S ORGANIZ ATION 12/08/2024 [facility] DATE CREATED AUTHOR AUTHOR'S ORGANIZ ATION 12/24/[address] [facility] dical [facility] DATE CREATED AUTHOR AUTHOR'S ORGANIZ ATION 12/26/2024 [facility] l Source Comments (unrecognize d section and content) In the event this informatio n is protected by the Federal Confidentiality of Alcohol and Drug Abuse Patient Records regulations: The Federal rules restrict any use of the information to criminally investigate or prosecute any alcohol or drug abuse patient.[facility] the event this information is protected by the Federal Confidentiality of Alcohol and Drug Abuse Patient Records regulations: The Federal rules restrict any use of the information to criminally investigate or prosecute any alcohol or drug abuse patient.[facility] HealthcareIn the event this information is protected by the Federal Confidentiality of Alcohol and Drug Abuse Patient Records regulations: The Federal rules restrict any use of the information to criminally investigate or prosecute any alcohol or drug abuse patient.[facility] HealthcareIn the event this information is protected by the Federal Confidentiality of Alcohol and Drug Abuse Patient Records regulations: The Federal rules restrict any use of the information to criminally investigate or prosecute any alcohol or drug abuse patient.[facility] HealthcareIn the event this information is protected by the Federal Confidentiality of Alcohol and Drug Abuse Patient Records regulations: The Federal rules restrict any use of the information to criminally investigate or prosecute any alcohol or drug abuse patient.[facility] HealthcareIn the event this information is protected by the Federal Confidentiality of Alcohol and Drug Abuse Patient Records regulations: The Federal rules restrict any use of the information to criminally investigate or prosecute any alcohol or drug abuse patient.[facility] HealthcareIn the event this information is protected by the Federal Confidentiality of Alcohol and Drug Abuse Patient Records regulations: The Federal rules restrict any use of the information to criminally investigate or prosecute any alcohol or drug abuse patient.[facility] HealthcareIn the event this information is protected by the Federal Confidentiality of Alcohol and Drug Abuse Patient Records regulations: The Federal rules restrict any use of the information to criminally investigate or prosecute any alcohol or drug abuse patient.[facility] HealthcareIn the event this information is protected by the Federal Confidentiality of Alcohol and Drug Abuse Patient Records regulations: The Federal rules restrict any use of the information to criminally investigate or prosecute any alcohol or drug abuse patient.[facility] HealthcareIn the event this information is protected by the Federal Confidentiality of Alcohol and Drug Abuse Patient Records regulations: The Federal rules restrict any use of the information to criminally investigate or prosecute any alcohol or drug abuse patient.[facility] HealthcareIn the event this information is protected by the Federal Confidentiality of Alcohol and Drug Abuse Patient Records regulations: The Federal rules restrict any use of the information to criminally investigate or prosecute any alcohol or drug abuse patient.[facility] HealthcareIn the event this information is protected by the Federal Confidentiality of Alcohol and Drug Abuse Patient Records regulations: The Federal rules restrict any use of the information to criminally investigate or prosecute any alcohol or drug abuse patient.[facility] HealthcareIn the event this information is protected by the Federal Confidentiality of Alcohol and Drug Abuse Patient Records regulations: The Federal rules restrict any use of the information to criminally investigate or prosecute any alcohol or drug abuse patient.[facility] HealthcareIn the event this information is protected by the Federal Confidentiality of Alcohol and Drug Abuse Patient Records regulations: The Federal rules restrict any use of the information to criminally investigate or prosecute any alcohol or drug abuse patient.[facility] HealthcareIn the event this information is protected by the Federal Confidentiality of Alcohol and Drug Abuse Patient Records regulations: The Federal rules restrict any use of the information to criminally investigate or prosecute any alcohol or drug abuse patient.[facility] HealthcareIn the event this information is protected by the Federal Confidentiality of Alcohol and Drug Abuse Patient Records regulations: The Federal rules restrict any use of the information to criminally investigate or prosecute any alcohol or drug abuse patient.[facility] HealthcareIn the event this information is protected by the Federal Confidentiality of Alcohol and Drug Abuse Patient Records regulations: The Federal rules restrict any use of the information to criminally investigate or prosecute any alcohol or drug abuse patient.[facility] HealthcareIn the event this information is protected by the Federal Confidentiality of Alcohol and Drug Abuse Patient Records regulations: The Federal rules restrict any use of the information to criminally investigate or prosecute any alcohol or drug abuse patient.[facility] HealthcareIn the event this information is protected by the Federal Confidentiality of Alcohol and Drug Abuse Patient Records regulations: The Federal rules restrict any use of the information to criminally investigate or prosecute any alcohol or drug abuse patient.[facility] HealthcareIn the event this information is protected by the Federal Confidentiality of Alcohol and Drug Abuse Patient Records regulations: The Federal rules restrict any use of the information to criminally investigate or prosecute any alcohol or drug abuse patient.[facility] HealthcareIn the event this information is protected by the Federal Confidentiality of Alcohol and Drug Abuse Patient Records regulations: The Federal rules restrict any use of the information to criminally investigate or prosecute any alcohol or drug abuse patient.[facility] Reason for Visit (unrecogniz ed section and content) Reason Comments Follow Up Botox Specialty Diagnoses / Procedures Referred By Contac t Referred To Contact HEADACHE Diagnoses Chronic migraine without aura, intractable, without status migrainosus Procedures BOTULINUM TOXIN A PER 1 UNIT CHEMODERVATE FACIAL/TRIGEM/CERV MUSC MIGRAINE Renewal due 06/29/2024 Botox 200 units every 12 weeks for 1 year through [facility] [employer] and bill. 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 [address] [id number] Phone: tel: fax: Neurology [address] [id number] Phone: tel: fax: Referral ID Status Reason Start Date Expiration Date V isits Requested Visits Authorized [id number] Authorized 07/28/2024 01/28/2025 12 12 Reason Comments Botox Injection Specialty Diagnoses / Procedures Referred By Contac t Referred To Contact HEADACHE Diagnoses Chronic migraine without aura, intractable, without status migrainosus Procedures BOTULINUM TOXIN A PER 1 UNIT CHEMODERVATE FACIAL/TRIGEM/CERV MUSC MIGRAINE Renewal due 11/07/2021 Botox 200 units every 12 weeks for 1 year through [facility] buy and bill Preempt protocol [id number] Procedure -14790 chemodervate facial/trigem/cerv musc migraine 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, 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 [address] [place] [address] Neur Headache Main [address] [id number] Referral ID Status Reason Start Date Expiration Date Visits Re quested Visits Authorized [id number] Closed 10/27/2021 04/28/2022 2 2 Reason Comments Referral Request Reason Comments Migraine Referral ID Status Reason Start Date Expiration Date V isits Requested Visits Authorized [id number] Authorized 10/27/2021 04/28/2022 2 2 Specialty Diagnoses / Procedures Referred By Contac t Referred To Contact HEADACHE Diagnoses Chronic migraine without aura, intractable, without status migrainosus Procedures BOTULINUM TOXIN A PER 1 UNIT CHEMODERVATE FACIAL/TRIGEM/CERV MUSC MIGRAINE Renewal - next visit expected on 10/09/22 Botox 200 units every 12 weeks for 1 year through [facility] buy and bill Preempt protocol [id number] Procedure -34830 chemodervate facial/trigem/cerv musc migraine 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, 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 [address] [place] [address] Neur Headache Main [address] [id number] Referral ID Status Reason Start Date Expiration Date V isits Requested Visits Authorized [id number] Waiting for Response 07/19/2022 09/17/2023 5 5 [...] Expiration Date V isits Requested Visits Authorized [id number] Closed Financial Clearance Not Required 10/30/2023 04/30/2024 4 4 Reason Comments Infusion Headache Specialty Diagnoses / Procedures Referred By Contac t Referred To Contact Neurology / HEADACHE Diagnoses Non-DHE Infusion Day #1 Procedures INFUSION HEADACHE 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, 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 [address] [place] [address] Neur Headache [address] [place] [address] Referral ID Status Reason Start Date Expiration Date V isits Requested Visits Authorized [id number] Authorized 04/08/2024 07/07/2024 1 99 Reason Comments Infusion Specialty Diagnoses / Procedures Referred By Contac t Referred To Contact Neurology / HEADACHE Diagnoses Follow-up exam Procedures OFFICE/OUTPATIENT ESTABLISHED HIGH MDM 40 MIN EST NI PATIENT Self Grenfell, Marilynn, PA-C [address] [place] [address] Referral ID Status Reason Start Date Expiration Date V isits Requested Visits Authorized [id number] Authorized 04/10/2024 04/10/2025 99 99 Reason Comments Follow-up 3m Flank Pain bilateral Sinusitis Congestion Reason Comments Medicare Annual Wellness Visit Subsequen t wellness Reason Comments Back Pain Right MBB Specialty Diagnoses / Procedures Referred By Conthardeep t Referred To Contact Pain Management Diagnoses PRECERT- RIGHT MBB L345 #1 Procedures INJ DX/THER AGNT PARAVERT FACET JOINT, LUMBAR/SAC, 1ST LEVEL Jessee Billy MD [address] [place] [address] Phone: tel: fax: Referral ID Status Reason Start Date Expiration Date V isits Requested Visits Authorized [id number] Authorized 09/17/2024 03/16/2025 1 1 Reason Comments Follow-up 3m Earache Left ear pain Care Teams (unrecognized sec tion and content) Team Status: Active Member Role Status Dates Josh Ochoa MD Primary Care Provider Active Team Status: Inactive Member Role Status Dates Josh Ochoa MD Primary Care Provider Active Lee Chowdary MD Attending Provider Active Procurement Manager Relationship Specialty Start Date End Date Josh Ochoa PCP - General Family Practice 08/01/16 Deja Martins CNP Family Practice 09/17/16 Procurement Manager Relationship Specialty Start Date End Date Josh Ochoa PCP - General Family Practice 08/01/16 Deja Martins CNP Family Practice 09/17/16 Team Status: Inactive Member Role Status Dates Josh Ochoa MD Primary Care Provider Active Marie Elias MD Attending Provider Active Procurement Manager Relationship Specialty Start Date End Date Josh Ochoa PCP - General Family Medicine 08/01/16 Deja Martins CNP Family Medicine 09/17/16 Procurement Manager Relationship Specialty Start Date End Date Josh Ochoa PCP - General Family Medicine 08/01/16 Deja Martins CNP Family Medicine 09/17/16 Procurement Manager Relationship Specialty Start Date End Date Josh Ochoa PCP - General Family Medicine 08/01/16 Deja Martins CNP Family Medicine 09/17/16 Procurement Manager Relationship Specialty Start Date End Date Josh Ochoa PCP - General Family Medicine 08/01/16 Deja Martins CNP Family Medicine 09/17/16 Procurement Manager Relationship Specialty Start Date End Date Josh Ochoa PCP - General Family Medicine 08/01/16 Deja Martins CNP Family Medicine 09/17/16 Procurement Manager Relationship Specialty Start Date End Date Josh Ochoa PCP - General Family Medicine 08/01/16 Deja Martins CNP Family Medicine 09/17/16 Procurement Manager Relationship Specialty Start Date End Date Josh Ochoa MD [address] [place] [phone] PCP - General Family Medicine 06/17/23 Procurement Manager Relationship Specialty Start Date End Date Josh Ochoa MD [address] [place] [phone] PCP - General Family Medicine 06/17/23 Procurement Manager Relationship Specialty Start Date End Date Josh Ochoa MD [address] [place] [phone] PCP - General Family Medicine 06/17/23 Procurement Manager Relationship Specialty Start Date End Date Josh Ochoa MD [address] [place] [phone] PCP - General Family Medicine 06/17/23 Procurement Manager Relationship Specialty Start Date End Date Josh Ochoa PCP - General Family Medicine 08/01/16 Deja Martins CNP Family Medicine 09/17/16 Procurement Manager Relationship Specialty Start Date End Date Josh Ochoa MD [address] [place] [address] PCP - General Family Medicine 06/17/23 Josh Ochoa MD [address] [place] [address] PCP - [employer] 02/10/23 Procurement Manager Relationship Specialty Start Date End Date Josh Ochoa MD [address] [place] [address] PCP - General Family Medicine 06/17/23 Josh Ochoa MD [address] [place] [address] PCP - [employer] 02/10/23 Procurement Manager Relationship Specialty Start Date End Date Josh Ochoa MD [address] [place] [address] PCP - General Family Medicine 06/17/23 Josh Ochoa MD [address] [place] [address] PCP - [employer] 02/10/23 Procurement Manager Relationship Specialty Start Date End Date Josh Ochoa MD [address] [place] [address] PCP - General Family Medicine 06/17/23 Josh Ochoa MD [address] [place] [address] PCP - [employer] 02/10/23 Procurement Manager Relationship Specialty Start Date End Date Josh Ochoa MD PCP - General Family Medicine 08/01/16 Deja Martins CNP Family Medicine 09/17/16 Procurement Manager Relationship Specialty Start Date End Date Josh Ochoa MD PCP - General Family Medicine 08/01/16 Deja Martins CNP Family Medicine 09/17/16 Team Status: Inactive Member Role Status Dates Josh Ochoa MD Primary Care Provider Active S tart: January 08, 2024 End: January 08, 2024 Al Kumar MD Attending Provider Active Start: January 08, 2024 End: January 08, 2024 Procurement Manager Relationship Specialty Start Date End Date Josh Ochoa MD [address] [place] [address] PCP - General Family Medicine 06/17/23 Josh Ochoa MD [address] [place] [address] PCP - [employer] 02/10/23 Procurement Manager Relationship Specialty Start Date End Date Josh Ochoa MD [address] [place] [address] PCP - General Family Medicine 06/17/23 Josh Ochoa MD [address] [place] [address] PCP - [employer] 02/10/23 Procurement Manager Relationship Specialty Start Date End Date Josh Ochoa MD [address] [place] [address] PCP - General Family Medicine 06/17/23 Josh Ochoa MD [address] [place] [address] PCP - [employer] 02/10/23 Procurement Manager Relationship Specialty Start Date End Date Josh Ochoa MD [address] [place] [address] PCP - General Family Medicine 06/17/23 Josh Ochoa MD [address] [place] [address] PCP - [employer] 02/10/23 Procurement Manager Relationship Specialty Start Date End Date Josh Ochoa MD PCP - General Family Medicine 08/01/16 Deja Martins CNP Family Medicine 09/17/16 Procurement Manager Relationship Specialty Start Date End Date Josh Ochoa MD PCP - General Family Medicine 08/01/16 Deja Martins CNP Family Medicine 09/17/16 Procurement Manager Relationship Specialty Start Date End Date Josh Ochoa MD PCP - General Family Medicine 08/01/16 Deja Martins CNP Family Medicine 09/17/16 Procurement Manager Relationship Specialty Start Date End Date Josh Ochoa MD PCP - General Family Medicine 08/01/16 Deja Martins CNP Family Medicine 09/17/16 Procurement Manager Relationship Specialty Start Date End Date Josh Ochoa MD PCP - General Family Medicine 08/01/16 Deja Martins CNP Family Medicine 09/17/16 Procurement Manager Relationship Specialty Start Date End Date Josh Ochoa MD [address] [place] [address] PCP - General Family Medicine 06/17/23 Josh Ochoa MD [address] [place] [address] PCP - [employer] 02/10/23 Procurement Manager Relationship Specialty Start Date End Date Josh Ochoa MD [address] [place] [address] PCP - General Family Medicine 06/17/23 Josh Ochoa MD [address] [place] [address] PCP - [employer] 02/10/23 Procurement Manager Relationship Specialty Start Date End Date Josh Ochoa MD [address] [place] [address] PCP - General Family Medicine 06/17/23 Josh Ochoa MD [address] [place] [address] PCP - [employer] 02/10/23 Procurement Manager Relationship Specialty Start Date End Date Josh Ochoa MD [address] [place] [address] PCP - General Family Medicine 06/17/23 Josh Ochoa MD [address] [place] [address] PCP - [employer] 02/10/23 Procurement Manager Relationship Specialty Start Date End Date Josh Ochoa MD [address] [place] [address] PCP - General Family Medicine 06/17/23 Josh Ochoa MD [address] [place] [address] PCP - [employer] 02/10/23 Procurement Manager Relationship Specialty Start Date End Date Josh Ochoa MD [address] [place] [address] PCP - General Family Medicine 06/17/23 Josh Ochoa MD [address] [place] [address] PCP - [employer] 02/10/23 Procurement Manager Relationship Specialty Start Date End Date Josh Ochoa MD [address] [place] [address] PCP - General Family Medicine 06/17/23 Josh Ochoa MD [address] [place] [address] PCP - [employer] 02/10/23 Procurement Manager Relationship Specialty Start Date End Date Josh Ochoa MD [address] [place] [address] PCP - General Family Medicine 06/17/23 Josh Ochoa MD [address] [place] [address] PCP - [employer] 02/10/23 Dc Jackson, [facility] [address] [place] [address] [facility] 05/26/24 Procurement Manager Relationship Specialty Start Date End Date Josh Ochoa MD [address] [place] [address] PCP - General Family Medicine 06/17/23 Josh Ochoa MD [address] [place] [address] PCP - [employer] 02/10/23 [facility] [address] [place], [place] [id number] [facility] 05/26/24 Procurement Manager Relationship Specialty Start Date End Date Josh Ochoa MD [address] [place] [address] PCP - General Family Medicine 06/17/23 Josh Ochoa MD [address] [place] [address] PCP - [employer] 02/10/23 Dc Jackson, [facility] [address] [place] [address] [facility] 05/26/24 Procurement Manager Relationship Specialty Start Date End Date Josh Ochoa MD [address] [place] [address] PCP - General Family Medicine 06/17/23 Josh Ochoa MD [address] [place] [address] PCP - [employer] 02/10/23 Dc Jackson, [facility] [address] [place] [address] [facility] 05/26/24 Procurement Manager Relationship Specialty Start Date End Date Josh Ochoa MD [address] [place] [address] PCP - General Family Medicine 06/17/23 Josh Ochoa MD [address] [place] [address] PCP - [employer] 02/10/23 Dc Jackson, [facility] [address] [place] [address] [facility] 05/26/24 Procurement Manager Relationship Specialty Start Date End Date Josh Ochoa MD [address] [place] [address] PCP - General Family Medicine 06/17/23 Josh Ochoa MD [address] [place] [address] PCP - [employer] 02/10/23 Dc Jackson, [facility] [address] [place] [address] [facility] 05/26/24 Procurement Manager Relationship Specialty Start Date End Date Josh Ochoa MD [address] [place] [address] PCP - General Family Medicine 06/17/23 Josh Ochoa MD [address] [place] [address] PCP - [employer] 02/10/23 Dc Jackson, [facility] [address] [place] [address] [facility] 05/26/24 Procurement Manager Relationship Specialty Start Date End Date Josh Ochoa MD [address] [place] [address] PCP - General Family Medicine 06/17/23 Josh Ochoa MD [address] [place] [address] PCP - [employer] 02/10/23 Dc Jackson [facility] [address] [place] [address] [facility] 05/26/24 Procurement Manager Relationship Specialty Start Date End Date Josh Ochoa MD [address] [place] [address] PCP - General Family Medicine 06/17/23 Josh Ochoa MD [address] [place] [address] PCP - [employer] 02/10/23 Dc Jackson [facility] [address] [place] [address] [facility] 05/26/24 Procurement Manager Relationship Specialty Start Date End Date Josh Ochoa MD [address] [place] [address] PCP - General Family Medicine 06/17/23 Josh Ochoa MD [address] [place] [address] PCP - [employer] 02/10/23 Dc Jackson [facility] [address] [place] [address] [facility] 05/26/24 Procurement Manager Relationship Specialty Start Date End Date Josh Ochoa MD [address] [place] [address] PCP - General Family Medicine 06/17/23 Josh Ochoa MD [address] [place] [address] PCP - [employer] 02/10/23 Dc Jackson, [facility] [address] [place] [address] [facility] 05/26/24 Procurement Manager Relationship Specialty Start Date End Date Josh Ochoa MD PCP - General Family Medicine 08/01/16 Deja Martins [facility] Family Medicine 09/17/16 Procurement Manager Relationship Specialty Start Date End Date Josh Ochoa MD [address] [place] [address] PCP - General Family Medicine 06/17/23 Josh Ochoa MD [address] [place] [address] PCP - [employer] 02/10/23 Dc Jackson, [facility] [address] [place] [address] [facility] 05/26/24 Procurement Manager Relationship Specialty Start Date End Date Josh Ochoa MD [address] [place] [address] PCP - General Family Medicine 09/10/24 Procurement Manager Relationship Specialty Start Date End Date Josh Ochoa MD [address] [place] [address] PCP - General Family Medicine 09/10/24 Procurement Manager Relationship Specialty Start Date End Date Josh Ochoa MD [address] [place] [address] PCP - General Family Medicine 06/17/23 Josh Ochoa MD [address] [place] [address] PCP - [employer] 02/10/23 Dc Jackson [facility] [address] [place] [address] [facility] 05/26/24 Procurement Manager Relationship Specialty Start Date End Date Josh Ochoa MD [address] [place] [address] PCP - General Family Medicine 06/17/23 Josh Ochoa MD [address] [place] [address] PCP - [employer] 02/10/23 Dc Jackson [facility] [address] [place] [address] [facility] 05/26/24 Procurement Manager Relationship Specialty Start Date End Date Josh Ochoa MD [address] [place] [address] PCP - General Family Medicine 06/17/23 Josh Ochoa MD [address] [place] [address] PCP - [employer] 02/10/23 Dc Jackson, [facility] [address] [place] [address] [facility] 05/26/24 Procurement Manager Relationship Specialty Start Date End Date Josh Ochoa MD [address] [place] [address] PCP - General Family Medicine 09/10/24 Procurement Manager Relationship Specialty Start Date End Date Josh Ochoa MD [address] [place] [address] PCP - General Family Medicine 09/10/24 Procurement Manager Relationship Specialty Start Date End Date Josh Ochoa MD [address] [place] [address] PCP - General Family Medicine 06/17/23 Josh Ochoa MD [address] [place] [address] PCP - [employer] 02/10/23 Dc Jackson, [facility] [address] [place] [address] [facility] 05/26/24 Procurement Manager Relationship Specialty Start Date End Date Josh Ochoa MD [address] [place] [address] PCP - General Family Medicine 06/17/23 Josh Ochoa MD [address] [place] [address] PCP - [employer] 02/10/23 Dc Jackson, [facility] [address] [place] [address] [facility] 05/26/24 Procurement Manager Relationship Specialty Start Date End Date Josh Ochoa MD [address] [place] [address] PCP - General Family Medicine 06/17/23 Josh Ochoa MD [address] [place] [address] PCP - [employer] 02/10/23 Dc Jackson, [facility] [address] [place] [address] [facility] 05/26/24 Procurement Manager Relationship Specialty Start Date End Date Josh Ochoa MD [address] [place] [address] PCP - General Family Medicine 06/17/23 Josh Ochoa MD [address] [place] [address] PCP - [employer] 02/10/23 Dc Jackson [facility] [address] [place] [address] [facility] 05/26/24 Procurement Manager Relationship Specialty Start Date End Date Josh Ochoa MD [address] [place] [address] PCP - General Family Medicine 06/17/23 Josh Ochoa MD [address] [place] [address] PCP - [employer] 02/10/23 Dc Jackson, [facility] [address] [place] [address] [facility] 05/26/24 Procurement Manager Relationship Specialty Start Date End Date Josh Ochoa MD [address] [place] [address] PCP - General Family Medicine 06/17/23 Josh Ochoa MD [address] [place] [address] PCP - [employer] 02/10/23 Dc Jackson, [facility] [address] [place] [address] [facility] 05/26/24 Procurement Manager Relationship Specialty Start Date End Date Josh Ochoa MD [address] [place] [address] PCP - General Family [facility] 06/17/23 Josh Ochoa MD [address] [place] [address] PCP - [facility] 02/10/23 Dc Jackson, [facility] [address] [place] [address] [facility] 05/26/24 Procurement Manager Relationship Specialty Start Date End Date Josh Ochoa MD [address] [place] [address] PCP - [facility] 06/17/23 Josh Ochoa MD [address] [place] [address] [facility] 02/10/23 Dc Jackson, [facility] [address] [place] [address] [facility] 05/26/24 Goals (unrecognized section and content) Goals [...] BE BASED ON THE PRIMARY CLINICAL RECORDS. [facility]. provides no warranty or guarantee of the accuracy or completeness of information in this document.
[2024-12-31 11:01] LABS: Hematocrit 41.5 % (36.0-48.0); Hemoglobin 13.4 g/dL (12.0-16.0); Immature Granulocytes Abs Auto 0.02 10^3/uL (0.00-0.03); Immature Granulocytes Pct Auto 0.2 % (0.0-0.5); Lymphocytes Absolute Auto 3.7 10^3/uL (1.2-3.8); Mean Corpuscular HGB Conc 32.3 g/dL (29.9-35.2); Mean Corpuscular Hemoglobin 27.6 pg (26.7-34.0); Mean Corpuscular Volume 85.6 fL (81.0-99.0); Platelet Count 357 10^3/uL (150-450); Red Blood Count 4.85 10^6/uL (4.20-5.40); White Blood Count 10.6 10^3/uL (4.0-11.0)
[2024-12-31 11:26] LABS: Cholesterol 134 mg/dL (<=200); HDL Cholesterol 34 mg/dL (40-60); Thyroid Stimulating Hormone 1.981 uIU/mL (0.358-3.740); Triglycerides 186 mg/dL (<=150); VLDL CHOLESTEROL 37.2 mg/dL
[2024-12-31 11:31] LABS: Microalbum Creatinine Ratio Ur 33.9 mg/g (0.0-29.9)
== END 2024-12-31 09:39 | disposition home or self-care (01) ==
PROVIDERS: PCP Family Medicine; Visit Provider Family Medicine
DX: E11.65 Type 2 diabetes mellitus with hyperglycemia (principal); Z79.4 Long term (current) use of insulin; Z79.899 Other long term (current) drug therapy; E78.5 Hyperlipidemia, unspecified; R79.89 Other specified abnormal findings of blood chemistry; E78.2 Mixed hyperlipidemia; I25.10 Atherosclerotic heart disease of native coronary artery without angina pectoris
CPT/HCPCS: 36415; 80053; 80061; 82043; 82248; 82570; 83036; 84439; 84443; 85025

== ENCOUNTER 2025-01-11 01:53 | Outpatient (RCR) | payer MEDICARE, SELFPAY | END 2025-02-09 15:09 | disposition home or self-care (01) | LOC: MM 01:53 | PROVIDERS: PCP Family Medicine; Visit Provider Internal Medicine | DX: Z51.81 Encounter for therapeutic drug level monitoring (principal); Z79.01 Long term (current) use of anticoagulants; I48.0 Paroxysmal atrial fibrillation | CPT/HCPCS: 85610; G0463 ==

== ENCOUNTER 2025-01-26 10:15 | Outpatient (OUT) | payer MEDICARE, SELFPAY ==
--- OUTSIDE RECORDS SUMMARY | 2025-01-27 13:24 | XMS_ITS | Encounter Summary ---
Author Organization [facility] Address [id number] [address] [place] [address] Care Team Providers Care Head Cook Name Role Phone Josh Tracy MD Primary Care Provider [phone] Encounter Details Date Type Department Care Team (Late st Contact Info) Description 04/17[facility]2022 [facility] [address] [place] [address] Elizabeth Villar RMA Social History Tobacco Use Types Packs/Day Years Used Date Smoking Tobacco: Every Day Cigarettes Smokeless Tobacco: Never Alcohol Use Standard Drinks/Week Comments No 0 (1 standard drink = 0.6 oz pur e alcohol) AUDIT-C Answer Date Recorded Frequency of Alcohol Consumption Never 05/18/2019 Average Number of Drinks Not on file 020 Frequency of Binge Drinking Not on file 10/2019 Childcare Answer Date Recorded Childcare Unknown 10/22/2018 Employment Answer Date Recorded Employment Unknown 10/22/2018 Purpose - Life Answer Date Recorded Purpose and direction in life Unknown Comments No Sex and Gender Information Value Date Recorded Sex Assigned at Not on file Legal Sex Female 11:34 AM EDT Gender Identity Not on file Sexual Orientation Not on file COVID-19 Exposure Response Date Recorded In the last month, have you been in contact with someone who was confirmed or suspected to have Coronavirus / COVID-19? No / Unsure 04/02/2022 4:48 AM EST documented as of this encounter Miscellaneous Notes * Telephone Encounter - MARYJO Castrejon - 04/17/2022 10:46 AM EST Left message for the patient to confirm her appointment with us tomorrow 04/18/22 @ 2:00pm. Asked togive the office a call back to confirm. documented in this encounter Plan of Treatment Not on file documented as of this encounter Visit Diagnoses Not on filedocumented in this encounter Care Teams Head Cook Relationship Specialty Start Date End Date Josh Tracy MD PCP - General Family Medicine 03/04/18 documented as of this encounter
--- OUTSIDE RECORDS SUMMARY | 2025-01-27 13:24 | XMS_ITS | Encounter Summary ---
Author Organization [facility] Address [address] [place] [address] Care Team Providers Care Hall Porter Name Role Phone Josh Tracy MD Primary Care Provider Josh Tracy MD Unavailable Mary Kate Jackson [facility] Unavailable [phone] Encounter Details Date Type Department Care Team (Late st Contact Info) Description 08/17/2024 Abstract [facility] [address] [place] [address] Josh Tracy MD [address] [place] [address] Social History Tobacco Use Types Packs/Day Years Used Date Smoking Tobacco: Former Cigarettes 1 23 0 07/28/1999 - 07/27/2022 Smokeless Tobacco: Never Alcohol Use Standard Drinks/Week Comments Never 0 (1 standard drink = 0.6 oz pure alcohol) caffeine intake: maybe 1 coffee or pop cups per day PHQ-2 Answer Date Recorded Patient Health Questionnaire-2 Score 4 08/10/2024 Comments No Sex and Gender Information Value Date Recorded Sex Assigned at Not on file Legal Sex Female 6:35 PM EDT Gender Identity Not on file Sexual Orientation Not on file Occupation Industry Job Start Date Job End Date currently on medical leave a nd workers comp from previous employer Not on file Not on file Not on file documented as of this encounter Plan of Treatment Upcoming Encounters Date Type Department Care Team (Late st Contact Info) Description 02/17/2025 8:00 AM EDT Clinical Support [facility] [address] [facility] [address] [place] [address] Garry Arce MD [address] [place], [place] [id number] 07/26/2025 10:00 AM EDT Office Visit DAYNE HYMAN [address] [address] Jacquelyn Huitron PA [address] [place] [address] documented as of this encounter Visit Diagnoses Not on filedocumented in this encounter Additional Health Concerns Assessment Noted Time PHQ-9 Depression Total Score: 13 025 9:00 AM EDT documented as of this encounter Care Teams Hall Porter Relationship Specialty Start Date End Date Josh Tracy MD PCP - General Family Medicine 06/17/23 Josh Tracy MD [address] [place] [address] PCP - [employer] 02/10/23 Mary Kate Jackson, [facility] [address] [facility] [address] [place] [address] [facility] 05/26/24 documented as of this encounter
--- OUTSIDE RECORDS SUMMARY | 2025-01-27 13:24 | XMS_ITS | Clinical Summary ---
Author Organization [facility] Address [address], [address] [place] [address] Care Team Providers Care Flight Test Supervisor Name Role Phone Josh Tracy MD Primary Care Provider + Allergies Active Allergy Reactions Criticality Noted Date Comments Ciprofloxacin Hives,Other (See Comments) Medium 01/17/2017 Other Reaction(s): Unknown, Unknown, Unknown Other Reaction(s): Other (See Comments), Unknown Cod Liver Oil Rash Low 09/06/2022 Codeine Dizziness or Vertigo,Hives,Itchi ng,Nausea And Vomiting,Rash Medium 04/24/2005 Other Reaction(s): Unknown Patient reports she can take meds containing codeine without hives Desonide Other (See Comments),Rash High 11/24/2012 Other Reaction(s): Dermatitis, Dermatitis, GI Disturbance, Other: See Comments, Unknown Other Reaction(s): hives Other Reaction(s): Dermatitis, GI Disturbance patient unaware but hx of TBI so she may not recall patient unaware but hx of TBI so she may not recall Erythromycin Hives,Itching,Rash Medium 04/24/2005 Other Reaction(s): Not available Erythromycin Base Hives Medium 04/24/2021 Other Reaction(s): Unknown Latex Anaphylaxis,Itching High 04/24/2005 Other Reaction(s): Unknown Penicillins Hives,Itching,Rash Medium 04/24/2005 Other Reaction(s): Unknown Sulfa Antibiotics Diarrhea,Hives,Itch ing,Nausea And Vomiting,Rash High 04/24/2005 Other Reaction(s): Unknown Wound Dressing Adhesive High 04/24/2021 Other Reaction(s): Unknown Blistering Zinc Oxide Rash Low 09/06/2022 Medications ketorolac (TORADOL) 30 MG/ML injection Inject 1 mL into the muscle every 6 hours as needed Active medical marijuana Take by mouth. Activ e traZODone (DESYREL) 50 MG tablet Take 1 tablet by mouth nightly Active venlafaxine 225 MG extended release tablet Take 1 tablet by mouth every morning Active traMADol (ULTRAM) 50 MG tablet Take 1 tablet by mouth every 4 hours as needed. 08/06/19 25 Active tiZANidine (ZANAFLEX) 4 MG tablet Take 1 tablet by mouth 07/28/19 25 Active MOUNJARO 5 MG/0.5ML SOAJ pen INJECT 5mg SUBCUTANEOUSLY (UNDER THE SKIN) once a week Active rosuvastatin (CRESTOR) 40 MG tablet Take 1 tablet by mouth nightly 07/29/19 24 025 Active progesterone (PROMETRIUM) 100 MG CAPS capsule Take 1 capsule by mouth 07/21/19 25 026 Active prochlorperazin e (COMPAZINE) [address] 1 suppository rectally every 8 hours as needed 04/08/20 24 Active pregabalin (LYRICA) 300 MG capsule 1 capsule. Active Onabotulinumtox in A (BOTOX) 200 units injection Inject 200 Units into the muscle 03/11/20 24 Active Keyport-3 1000 MG CAPS Take 1 capsule by mouth Active metoprolol succinate (TOPROL XL) 25 MG extended release tablet Take 1 tablet by mouth 02/07/20 24 025 Active metoclopramide (REGLAN) 10 MG tablet Take 1 tablet by mouth in the morning, at noon, in the evening, and at bedtime Active metFORMIN (GLUCOPHAGE) 1000 MG tablet Take 1 tablet by mouth 02/25/20 24 Active meclizine (ANTIVERT) 25 MG tablet 1 tablet Active Manganese Sulfate POWD Take by mouth Act jacques magnesium oxide (MAG-OX) 400 MG tablet Take 1 tablet by mouth daily Active lisinopril-hydr oCHLOROthiazide (PRINZIDE;ZESTO RETIC) 10-12.5 MG per tablet Take 1 tablet by mouth daily Active Lancets (ONETOUCH DELICA PLUS [id number]) [facility] USE DIRECTED 06/17/19 25 Active ketorolac (TORADOL) 10 MG tablet Take 1 tablet by mouth every 6 hours as needed 08/06/19 25 Active isosorbide mononitrate (IMDUR) 30 MG extended release tablet Take 1 tablet by mouth 02/07/20 24 025 Active LANTUS SOLOSTAR 100 UNIT/ML injection pen INJECT 30 UNITS SUBCUTANEOUSLY (UNDER THE SKIN) TWICE DAILY 04/08/20 24 Active Insulin Aspart FlexPen 100 UNIT/ML SOPN INJECT 15 - 30 UNITS SUBCUTANEOUSLY (UNDER THE SKIN) WITH meals plus sliding scale DIRECTED *max amount OF 90 UNITS DAILY 11/18/19 24 Active hydrOXYzine HCl (ATARAX) 50 MG tablet Take 1 tablet by mouth nightly as needed 09/10/19 25 Active Glucose Blood (BLOOD GLUCOSE TEST STRIPS 333) STRP 1 each 4 times daily 11/18/19 24 Active glipiZIDE (GLUCOTROL) 10 MG tablet Take one tablet by mouth with a meal 02/25/20 24 Active gentamicin (GARAMYCIN) 0.3 % ophthalmic solution instill 2 (TWO) DROPS IN BOTH EYES EVERY 4 HOURS FOR 7 DAYS 08/28/19 25 Active fenofibrate 160 MG tablet Take 1 tablet by mouth 02/07/20 24 Active ezetimibe (ZETIA) 10 MG tablet Take 1 tablet by mouth 02/07/20 24 025 Active estradiol (ESTRACE) 1 MG tablet 1 tablet 07/15/19 25 Active dihydroergotami ne (DHE) 1 MG/ML injection Inject 1 mL into the skin in the morning and 1 mL at noon and 1 mL in the evening. 09/12/19 25 Active FARXIGA 10 MG tablet Take 1 tablet by mouth daily 12/09/19 24 Active cyclobenzaprine (FLEXERIL) 10 MG tablet Take 1 tablet by mouth 3 times daily as needed Active clopidogrel (PLAVIX) 75 MG tablet Take 1 tablet by mouth 02/07/20 24 Active Cholecalciferol 1.25 MG (11405 UT) TABS Take 2 tablets by mouth nightly Active Calcium Carbonate-Vit D-Min (CALTRATE 600+D PLUS MINERALS) 600-800 MG-UNIT CHEW Take by mouth Active butalbital-APAP -caffeine 50-300-40 MG CAPS per capsule Take 1 capsule by mouth daily as needed 08/08/19 25 Active Blood Glucose Monitoring Suppl (ONE TOUCH ULTRA 2) w/Device KIT USE DIRECTED FOUR TIMES DAILY 06/16/19 25 Active atorvastatin (LIPITOR) 40 MG tablet Take 1 tablet by mouth nightly Active atomoxetine (STRATTERA) 80 MG capsule Take 1 capsule by mouth daily 01/08/20 24 Active ascorbic acid (VITAMIN C) 1000 MG tablet Take 1 tablet by mouth Active ALPRAZolam (XANAX) 1 MG tablet Take 1 tablet by mouth daily. 08/13/19 25 Active Alpha-Lipoic Acid 600 MG CAPS Take 1 capsule by mouth daily Active albuterol sulfate HFA (PROVENTIL;VENT VINAYAK;PROAIR) 108 (90 Base) MCG/ACT inhaler Inhale 2 puffs into the lungs every 4 hours as needed Active albuterol (PROVENTIL) (2.5 MG/3ML) 0.083% nebulizer solution albuterol sulfate 2.5 mg/3 mL (0.083 %) solution for nebulization INHALE 1 (ONE) vial via NEBULIZER EVERY 4 HOURS NEEDED Active albuterol sulfate HFA (PROVENTIL;VENT VINAYAK;PROAIR) 108 (90 Base) MCG/ACT inhaler Inhale 2 puffs into the lungs every 6 hours as needed Active Active Problems No known active problems Encounters Date Type Department Care Team Description 11/25/2024 Telephone [facility] [address] [place] [address] Jessee March MD Surgery Scheduling (- SECOND RIGHT L4-5 L5-S1 MBB AUTH - 11/25/24-05/24/25) 11/24/2024 2:45 PM EDT Office Visit [facility] [address] [place] [address] Jessee March MD Lumbosacral spondylosis without myelopathy (Primary Dx) from Last 3 Months Social History Tobacco Use Types Packs/Day Years Used Date Smoking Tobacco: Never Smokeless Tobacco: Never Tobacco Cessation:Counseling Given: Not Answered Alcohol Use Standard Drinks/Week Comments Never 0 (1 standard drink = 0.6 oz pur e alcohol) Comments No Sex and Gender Information Value Date Recorded Sex Assigned at Female 11/23/2024 11:12 AM EDT Legal Sex Female 7:42 AM EST Gender Identity Female 11/23/2024 11:12 AM EDT Sexual Orientation Not on file Last Filed Vital Signs Vital Sign Reading Time Taken Comments Blood Pressure 110/70 11/24/2024 3:05 PM EDT Pulse 94 11/24/2024 3:05 PM EDT Temperature 36.3 C (97.4 F) 11/24/2024 3:05 PM EDT Respiratory Rate - - Oxygen Saturation 98% 11/24/2024 3:05 PM EDT Inhaled Oxygen Concentration - - Weight 95.7 kg (211 lb) 11/24/2024 3:05 PM EDT Height 175.3 cm (5' 9 ) 11/24/2024 3:05 PM EDT Body Mass Index 31.16 11/24/2024 3:05 PM EDT Plan of Treatment Health Maintenance Due Date Last Done Comments Lipids 1984 Depression Screen 1986 HIV screen 1989 Hepatitis C screen 1992 DTaP/Tdap/Td vaccine (1 - Tdap) 1993 Hepatitis B vaccine (1 of 3 - 19+ 3-dose series) 1993 Pap smear 09/01/1995 Cervical cancer screen 2004 HPV (without or with Pap) 2004 Diabetes screen 2009 Colonoscopy 09/01/2019 Colorectal Cancer Screen 09/01/2019 FIT/FOBT: Average risk 09/01/2019 Fecal-DNA (Cologuard): Average risk 09/01/2019 Sigmoidoscopy/CT colonography 09/01/2019 Annual Wellness Visit (Medicare Advantage) 05/13/2024 Breast cancer screen 08/28/2024 08/28/2022 Shingles vaccine (1 of 2) 2024 Flu vaccine (#1) 12/11/2024 03/04/2023 COVID-19 Vaccine (2024-2 6 season) 2025 03/04/2023, 11/29/2020, 11/01/2020 Pneumococcal 0-49 years Vaccine Discontinued 03/04/2023 Pneumococcal 50+ years Vaccine Completed 03/04/2023 Hepatitis A vaccine Aged Out No longe r eligible based on patient's age to complete this topic Hib vaccine Aged Out No longer eligi ble based on patient's age to complete this topic Meningococcal (ACWY) vaccine Aged Out No longer eligible based on patient's age to complete this topic Meningococcal B vaccine Aged Out No l onger eligible based on patient's age to complete this topic Polio vaccine Aged Out No longer elig ible based on patient's age to complete this topic Insurance [employer] MEDICARE Care Teams Flight Test Supervisor Relationship Specialty Start Date End Date Josh Tracy MD [address] [place] [address] PCP - General Family Medicine 09/10/24
--- OUTSIDE RECORDS SUMMARY | 2025-01-27 13:24 | XMS_ITS | Encounter Summary ---
Author Organization [facility] Address [address] [place] [address] Care Team Providers Care Traditional Chinese Herbalist Name Role Phone Josh Tracy MD Primary Care Provider [phone] Josh Tracy MD Unavailable Mary Kate Jackson [facility] Unavailable [phone] Reason for Visit * Reason Comments Med Refill Encounter Details Date Type Department Care Team (Late st Contact Info) Description 12/03/2023 Refill [facility] [address] [place] [address] Carolynn Jose, [employer] [address] [facility] [address] [place] [address] Major depressive disorder, single episode, severe without psychotic features (HCC) Social History Tobacco Use Types Packs/Day Years Used Date Smoking Tobacco: Former Cigarettes 1 23 0 07/28/1999 - 07/27/2022 Smokeless Tobacco: Never Alcohol Use Standard Drinks/Week Comments Never 0 (1 standard drink = 0.6 oz pure alcohol) caffeine intake: maybe 1 coffee or pop cups per day PHQ-2 Answer Date Recorded Patient Health Questionnaire-2 Score 4 03/11/2023 Comments Unknown Sex and Gender Information Value Date Recorded [...] Description 02/17/2025 8:00 AM EDT Clinical Support [facility] [address] [place] [address] Garry Arce MD [address] [place] [address] [phone] 07/26/2025 10:00 AM EDT Office Visit [facility] [address] [place] [address] Jacquelyn Hutiron PA [address] [place], [place] [id number] documented as of this encounter Visit Diagnoses Diagnosis Major depressive disorder, single episode, severe without psychotic features (HCC) documented in this encounter Additional Health Concerns Assessment Noted Time PHQ-9 Depression Total Score: 16 023 9:00 AM EDT documented as of this encounter Care Teams Traditional Chinese Herbalist Relationship Specialty Start Date End Date Josh Tracy MD PCP - General Family Medicine 06/17/23 Josh Tracy MD [address] [place] [address] PCP - [employer] 02/10/23 Mary Kate Jackson, [facility] [address] [place] [address] Diesel Dinkey Engineer Behavioral [facility] 05/26/24 documented as of this encounter
--- OUTSIDE RECORDS SUMMARY | 2025-01-27 13:24 | XMS_ITS | Clinical Summary ---
Author Organization [facility] Address [address] [place] [address] Care Team Providers Care Program Aide Group Work Name Role Phone Josh Tracy MD Primary Care Provider [phone] Allergies Active Allergy Reactions Criticality Noted Date Comments Adhesive Other High 04/24/2021 Blistering Ciprofloxacin Hives Medium 01/17/2017 Cod Liver Oil Rash Low 09/06/2022 Codeine Hives Medium 04/24/2005 Desonide Dermatitis,Other High 11/24/2012 patient unaware but hx of TBI so she may not recall Erythromycin Hives Medium 04/24/2005 Erythromycin Base Hives Medium 04/24/2021 Latex Anaphylaxis,Itching, Unknown High 04/24/2005 Penicillins Hives Medium 04/24/2005 Sulfa (Sulfonamide Antibiotics) Hives High 04/24/2021 Medications ARIPiprazole (Abilify) 10 mg tablet Take 15 mg by mouth in the morning. Active ppdryg-jkjklduy-n mylase (Zenpep) 40,000-126,000- 168,000 unit capsule,delayed release(DR/EC) Zenpep 40,000 unit-126,000 unit-168,000 unit capsule,delayed release TAKE 1 CAPSULE BY MOUTH THREE TIMES DAILY 09/18/19 20 Active tiZANidine (Zanaflex) 4 mg tablet Take 8 mg by mouth at bedtime. 06/08/19 23 Active alpha lipoic acid 600 mg capsule alpha lipoic acid 600 mg capsule TAKE 1 CAPSULE BY MOUTH DAILY 11/15/19 21 Active atogepant (Qulipta) 60 mg tablet 12/14/19 22 Active cyproheptadine (Periactin) 4 mg tablet cyproheptadine 4 mg tablet TAKE 1 TABLET BY MOUTH TWICE DAILY Active estradiol (Estrace) 1 mg tablet Take 0.5 mg by mouth in the morning. 06/08/19 23 Active hydrOXYzine HCL (Atarax) 50 mg tablet hydroxyzine HCl 50 mg tablet TAKE 1 TABLET BY MOUTH EVERY 8 HOURS NEEDED FOR ANXIETY 04/27/20 19 Active insulin glargine (Lantus) 100 unit/mL (3 mL) pen Lantus Solostar U-100 Insulin 100 unit/mL (3 mL) subcutaneous pen INJECT 40 UNITS SUBCUTANEOUSLY TWICE DAILY 11/19/19 19 Active magnesium oxide (Mag-Ox) 400 mg (241.3 mg magnesium) tablet Take 1 tablet by mouth in the morning. 02/05/20 22 Active meclizine (Antivert) 25 mg tablet meclizine 25 mg tablet TAKE 1 TABLET BY MOUTH FOUR TIMES DAILY NEEDED 04/27/20 19 Active pregabalin (Lyrica) 200 mg capsule Take 300 mg by mouth in the morning, afternoon, and at bedtime. 06/08/19 23 Active cyclobenzaprine (Flexeril) 5 mg tablet cyclobenzaprine 5 mg tablet 03/13/20 22 Active albuterol 2.5 mg /3 mL (0.083 %) nebulizer solution albuterol sulfate 2.5 mg/3 mL (0.083 %) solution for nebulization INHALE 1 (ONE) vial via NEBULIZER EVERY 4 HOURS NEEDED Active Kr-T9-wuf-zinc-co o-ukuo-vichs (Caltrate 600-D Plus Minerals) 600 mg calcium- 800 unit-40 mg tablet,chewable Chew. Acti ve ascorbic acid (Vitamin C) 1,000 mg tablet Take 1,000 mg by mouth. 04/27/20 19 Active metoclopramide (Reglan) 10 mg tablet Take 10 mg by mouth in the morning, noon, at afternoon, at bedtime,. 08/08/19 23 Active ALPRAZolam (Xanax) 1 mg tablet TAKE 1 TABLET BY MOUTH DAILY NEEDED FOR ANXIETY MUST LAST 30 DAYS 07/12/19 23 Active butalbital-acetam inophen-caff (Fioricet) 50-300-40 mg capsule TAKE 1 CAPSULE BY MOUTH EVERY 6 HOURS NEEDED 08/02/19 23 Active lamoTRIgine (LaMICtal) 200 mg tablet Take 1 tablet by mouth in the morning. 100mg 08/22/19 Active venlafaxine 225 mg 24 hr tablet Take 225 mg by mouth in the morning. with food 08/08/19 Active traZODone (Desyrel) 50 mg tablet Take 50-100 mg by mouth if needed at bedtime. 03/11/20 Active cholecalciferol (Vitamin D3) 1,250 mcg (50,000 unit) tablet Take 2 tablets by mouth at bedtime. Active blood-glucose sensor (Dexcom G6 Sensor) deviceIndications :Type 2 diabetes mellitus with hyperglycemia, with long-term current use of insulin ([facility]) Use as directed. Replace every 10 days 3 each 2 05/15/19 24 Active Dexcom G4 [place] transmitter (Dexcom G6 Transmitter) deviceIndications :Type 2 diabetes mellitus with hyperglycemia, with long-term current use of insulin ([facility]) Use as directed. Replace every 90 days 1 each 1 05/15/19 24 Active atomoxetine (Strattera) 60 mg capsule 80 mg. 07/15/19 24 Active rimegepant (Nurtec ODT) 75 mg tablet,disintegra ting Take 75 mg by mouth. 07/02/19 24 Active clopidogrel (Plavix) 75 mg tabletIndications :S/P drug eluting coronary stent placement Take 1 tablet (75 mg) by mouth once daily as directed. 30 tablet 02/07/20 24 Active fenofibrate (Lofibra) 160 mg tabletIndications :Hypertriglycerid emia Take 1 tablet (160 mg) by mouth once daily as directed. 30 tablet 02/07/20 24 Active icosapent ethyL (Vascepa) 1 gram capsuleIndication s:Hypertriglyceri demia Take 2 capsules (2 g) by mouth with breakfast and with evening meal. 120 capsule 02/07/20 24 025 Active Additional Information Patient not taking.Reported on 01/12/2025 insulin aspart (NovoLOG Flexpen U-100 Insulin) 100 unit/mL (3 mL) injection penIndications:Ty pe 2 diabetes mellitus with hyperglycemia, with long-term current use of insulin ([facility]) INJECT 15 - 30 UNITS SUBCUTANEOUSLY (UNDER THE SKIN) WITH meals plus sliding scale DIRECTED *max amount OF 90 UNITS DAILY 75 mL 2 04/08/20 24 Active Farxiga 10 mg Take 1 tablet by mouth in the morning. 07/15/19 Active ketorolac (Toradol) 10 mg tablet Take 1 tablet by mouth every 6 (six) hours if needed for pain. 08/06/19 Active progesterone (Prometrium) 100 mg capsule Take 100 mg by mouth in the morning. 07/21/19 026 Active traMADol (Ultram) 50 mg tablet Take 1 tablet by mouth every 4 (four) hours if needed for pain. 08/06/19 Active omega 8-fdz-hdi-fish oil (Fish OiL) 1,000 (120-180) mg capsule Take 1,000 mg by mouth once daily as directed. Active furosemide (Lasix) 40 mg tabletIndications :Benign essential HTN Take 1 tablet (40 mg) by mouth 1 (one) time if needed (leg swelling) for up to 1 dose. 08/13/19 Active Additional Information Patient not taking.Reported on 01/12/2025 metFORMIN (Glucophage) 1,000 mg tabletIndications :Type 2 diabetes mellitus with hyperglycemia, with long-term current use of insulin (CMS/HCC) Take 1 tablet (1,000 mg) by mouth in the morning and at bedtime. 180 tablet 1 09/23/19 Active glipiZIDE (Glucotrol) 10 mg tabletIndications :Type 2 diabetes mellitus with hyperglycemia, with long-term current use of insulin (CMS/HCC) Take one tablet by mouth with a meal 90 tablet 1 09/23/19 Active pen needle, diabetic 32 gauge x 5/32 needleIndications :Type 2 diabetes mellitus with hyperglycemia, with long-term current use of insulin (CMS/HCC) Use to inject medication 4 times daily 300 each 3 09/23/19 Active Mounjaro 5 mg/0.5 mL pen injectorIndicatio ns:Type 2 diabetes mellitus with hyperglycemia, with long-term current use of insulin (CMS/HCC) Inject 5 mg under the skin 1 (one) time per week. 2 mL 2 12/08/19 Active Additional Information Patient taking differently: 7.5 mgsubcutaneous Every 7 days, Reported on 01/12/2025 Lantus Solostar U-100 Insulin 100 unit/mL (3 mL) injection penIndications:Ty pe 2 diabetes mellitus with hyperglycemia, with long-term current use of insulin (CMS/HCC) Inject 20 units under the skin twice daily 30 mL 2 12/08/19 Active Additional Information Patient not taking.Reported on 01/12/2025 ezetimibe (Zetia) 10 mg tabletIndications :Mixed hyperlipidemia Take 1 tablet (10 mg) by mouth once daily as directed. 90 tablet 3 12/05/19 25 Active isosorbide mononitrate ER (Imdur) 30 mg 24 hr tabletIndications :Coronary artery disease involving belkofski coronary artery of belkofski heart without angina pectoris Take 1 tablet (30 mg) by mouth once daily as directed. Do not crush or chew. 90 tablet 3 12/05/19 25 Active metoprolol succinate XL (Toprol-XL) 25 mg 24 hr tabletIndications :Coronary artery disease involving belkofski coronary artery of belkofski heart without angina pectoris Take 1 tablet (25 mg) by mouth once daily as directed. Do not crush or chew. 90 tablet 3 12/05/19 25 Active Additional Information Patient not taking.Reported on 01/12/2025 rosuvastatin (Crestor) 40 mg tabletIndications :Mixed hyperlipidemia Take 1 tablet (40 mg) by mouth at bedtime. 90 tablet 3 12/05/19 25 Active metoprolol tartrate (Lopressor) 25 mg tabletIndications :Palpitations Take 0.5 tablets (12.5 mg) by mouth two times daily. Stop metoprolol succinate 90 tablet 3 12/15/19 25 Active warfarin (Coumadin) 10 mg tablet Take 10 mg by mouth in the morning. Active tirzepatide (Mounjaro) 7.5 mg/0.5 mL pen injectorIndicatio ns:Type 2 diabetes mellitus with hyperglycemia, with long-term current use of insulin ([facility]) Inject 7.5 mg under the skin 1 (one) time per week. 2 mL 2 01/05/20 Active dihydroergotamine (DHE) 1 mg/mL injection Inject 1 mg under the skin three times daily. 09/12/19 Active prochlorperazine (Compazine) 10 mg tablet Take 1 tablet by mouth every 6 (six) hours. 12/11/19 Active Active Problems Problem Noted Date Diagnosed Date Abnormal TSH 08/10/2024 Encounter for long-term (current) use of medicat ions 08/10/2024 Medicare annual wellness visit, subsequent 08/10 Acute non-recurrent pansinusitis 05/11/2024 Dyslipidemia 05/11/2024 Other chronic pancreatitis 05/11/2024 Rectal bleeding 01/10/2024 Dysuria 12/13/2023 Overview (01/10/2024): Last Assessment & Plan: History suggestive UTI and treat. Take levaquin for infection and use pyridium for symptoms. Send urine for culture. Increase water intake and cranberry juice. Use motrin or tylenol for discomfort. Trochanteric bursitis, left hip 08/06/2023 Trochanteric bursitis, right hip 08/06/2023 ADD (attention deficit disorder) without hyperac tivity 06/20/2023 07/29/2023 Overview (07/29/2023): Last Assessment & Plan: Symptoms improved with medication but wears off and increase dose. Last Assessment & Plan: Worsening symptoms and try strattera. Lipoma of lower back 12/25/2022 03/01/2023 Lump of skin of back 12/25/2022 03/01/2023 Muscle spasm 12/17/2022 03/01/2023 Trochanteric bursitis of both hips 12/17/2022 03/01/2023 Brachial plexus neuropathy 12/11/202203/01 Enthesopathy of hip region 12/11/202203/01 Myalgia 12/11/2022 03/01/2023 Oth cond assoc w female genital organs and menst rual cycle 12/11/2022 03/01/2023 Vaginal dryness 12/11/2022 03/01/2023 Insomnia 09/21/2022 03/01/2023 MDD (major depressive disorder), recurrent episo de, mild 09/21/2022 07/29/2023 Overview (07/29/2023): Last Assessment & Plan: Symptoms controlled with medication and continue. Last Assessment & Plan: Symptoms controlled with medication and continue. Coronary artery disease invo lving belkofski coronary artery of belkofski heart without angina pectoris 08/29/2022 Assessment & Plan (03/01/2023 1:29 PM EDT): Coronary artery disease is stable Continue GDMT- ASA, plavix, lipitor 80 mg, fenofibrate, imdur, toprol continue risk factor modifications- heart healthy diet, regular exercise as tolerated and continue all medications. Assessment & Plan (08/29/2022 2:23 PM EDT): Coronary artery disease is stable without any concerning symptoms Continue GDMT- add toprol 12.5 mg daily, ASA< plavix, lipitor continue risk factor modifications- heart healthy diet, regular exercise as tolerated and continue all medications. S/P drug eluting coronary stent placement 2022 Overview (08/29/2022): 1. 07/06/22 Coronary angiogram shows severe single-vessel coronary artery disease with 85% stenosis of the mid RCA which was reduced to 0% by a Synergy XD drug-eluting stent. 2. Mild disease in the LAD, circumflex and distal RCA. Normal left main. Assessment & Plan (03/01/2023 1:29 PM EDT): Stable Assessment & Plan (08/29/2022 2:23 PM EDT): Stable, continue DAPT x 1 year Adhesive capsulitis of left shoulder 08/29/2022 Anxiety 08/29/2022 Depression 08/29/2022 Diabetes mellitus 08/29/2022 Neuropathic pain 08/29/2022 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 Osteoarthritis 08/29/2022 Vertigo 08/29/2022 Cervical radiculopathy at C6 08/29/2022 Bilateral occipital neuralgia 08/29/2022 Hypercholesterolemia 08/29/2022 Type 2 diabetes mellitus with polyneuropathy Type 2 diabetes mellitus wit hout complication, without long-term current use of insulin 07/06/2022 Assessment & Plan (07/06/2022 12:40 PM EST): Diabetes is uncontrolled, A1C quite elevated Referral to endocrinology completed. Mixed hyperlipidemia 07/06/2022 Assessment & Plan (03/01/2023 1:28 PM EDT): Lipid abnormalities are not much improved and d/w pt about initiation of Leqvio for better HPL management of Chol, Trig and LDL in light of CAD, DM and she voiced agreement. In light of h/o pancreatitis she is not a candidate for Vascepa. Assessment & Plan (07/06/2022 12:35 PM EST): Lipid abnormalities are uncontrolled- will increase lipitor to 80 mg daily and repeat labs in 2 months Benign essential HTN 07/06/2022 Assessment & Plan (08/29/2022 2:22 PM EDT): Hypertension is well controlled 110/60 stop lisinopril/HCTZ, will start toprol 12.5 mg daily for CAD and HTN Assessment & Plan (07/06/2022 12:35 PM EST): Hypertension is well controlled 105/57 Continue lisinopril/HCTZ, lasix Tobacco dependence 07/06/2022 Assessment & Plan (08/29/2022 2:23 PM EDT): Tobacco use - she has quit smoking Assessment & Plan (07/06/2022 12:39 PM EST): Currently pt is attempting to quit smoking- script for nicotene patch sent to pharmacy Mild intermittent asthma without complication Assessment & Plan (07/06/2022 12:39 PM EST): F/U with PCP and pulmonary Unstable angina 07/06/2022 Assessment & Plan (07/06/2022 12:34 PM EST): New pt presented with concerning s/s of angina with multiple co-morbidities/risk factors- DM type 2, HTN, HPL, Obesity, Family h/o early CAD/AL, current smoker. Will send for cardiac cath to assess for significant coronary stenosis. ASCVD- 10 year risk of CVD 15.1%; 10 year risk with optimal risk factor medication 0.6% Increase lipitor to 80 mg from 40 mg, recommended referral to endocrinology for better glycemic management- referral sent. HAWTHORNE (dyspnea on exertion) 07/06/2022 Assessment & Plan (08/29/2022 8:53 AM EDT): stable Assessment & Plan (07/06/2022 12:37 PM EST): Will order echocardiogram to assess cardiac function, Cardiac cath to assess for CAD. F/U with PCP and pulmonary Edema of both lower extremities 07/06/2022 Assessment & Plan (08/29/2022 2:23 PM EDT): Stable, no edema today- continue lasix 40 mg daily Assessment & Plan (07/06/2022 12:38 PM EST): Currently is well controlled after having started lasix per PCP Family history of early CAD 07/06/2022 Assessment & Plan (07/06/2022 12:38 PM EST): Both parents with early CAD Mixed hyperlipidemia due to type 2 diabetes neli itus 07/06/2022 Overview (07/06/2022): Added automatically from request for surgery [id number] Assessment & Plan (08/29/2022 8:53 AM EDT): Continue statin Degeneration of lumbosacral intervertebral disc 02/28/2021 Postconcussion syndrome 02/28/2021 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 02/28/2021 Pain in joint of left shoulder 09/14/2020 1 Memory deficit 05/25/2020 Panic disorder 04/25/2020 Complex regional pain syndrome 02/17/2020 Generalized anxiety disorder 10/26/2019 Severe major depression, sin gle episode, without psychotic features 10/26/2019 Chronic pain syndrome 06/27/2018 Assessment & Plan (08/29/2022 8:53 AM EDT): F/u with PCP Medication overuse headache 06/27/2018 Cervico-occipital neuralgia 11/07/2016 Closed fracture of coronoid process of ulna 01/11 Fracture of ulna 01/30/2016 Obesity affecting , antepartum 04/19/20 09 03/01/2023 Migraine 02/15/2009 Polycystic ovaries 02/15/2009 Chronic migraine without aur a, not intractable, without status migrainosus 02/15/2009 03/01/2023 complicated by tobacco use 02/15/2009 03/01/2023 Chronic obstructive asthma, unspecified 04/24/20 05 Resolved Problems Problem Noted Date Diagnosed Date Resolved Date SOB (shortness of breath) 04/02/2022 Assessment & Plan (08/29/2022 8:52 AM EDT): SOB is Encounters Date Type Department Care Team Description 01/20/2025 Telephone [facility] [address] [place] [address] Deanne Jacobson MA 01/12/2025 10:30 AM EDT Office Visit [facility] [address] [facility] [place] [address] Farzad Costa MD Palpitations (Primary Dx) 01/12/2025 Orders Only [facility] [address] [facility] [place] [address] Deanne Jacobson MA Sleep apnea, unspecified type (Primary Dx) 01/08/2025 Telephone [facility] [address] [facility] [place] [id number] Yajaira Jones MA 01/08/2025 Telephone [facility] [address] [facility] [place] [address] Yajaira Jones MA 01/07/2025 Telephone [facility] [address] [facility] [place] [address] Chelo Pat MA 01/04/2025 9:00 AM EDT Follow-Up [facility] [address] [place] [address] Madeline Guerin PA-C Type 2 diabetes mellitus with hyperglycemia, with long-term current use of insulin (CMS/HCC) (Primary Dx); Obesity (BMI 30.0-34.9); [facility] (current) use of oral hypoglycemic drugs; Long-term (current) use of injectable non-insulin antidiabetic drugs 12/14/2024 Orders Only [facility] [address] [facility] [place] [address] Deanne Jacobson MA Palpitations (Primary Dx) 12/11/2024 Telephone [facility] [address] [facility] [place] [address] Deanne Jacobson MA 12/04/2024 Refill [facility] [address] [facility] [place] [address] Chelo Pat MA Mixed hyperlipidemia; Coronary artery disease involving belkofski coronary artery of belkofski heart without angina pectoris; Type 2 diabetes mellitus with hyperglycemia, with long-term current use of insulin (CMS/HCC) 12/04/2024 Refill [facility] at [facility] [address] [place] [address] Madeline Guerin PA-C Type 2 diabetes mellitus with hyperglycemia, with long-term current use of insulin (CMS/HCC) from Last 3 Months Immunizations Immunization Administration Dates Next Due Moderna SARS-CoV-2 Vaccination 11/29/2020,2020 Family History Medical History Relation Name Comments Heart attack Father Cancer Mother Coronary artery disease Mother Heart attack Mother Relation Name Status Comments Father Mother Social History Tobacco Use Types Packs/Day Years Used Date Smoking Tobacco: Former Cigarettes 1 26 0 07/26/1996 - 07/26/2022 Passive Smoke Exposure: Never Smokeless Tobacco: Never Tobacco Cessation:Counseling Given: Not Answered Alcohol Use Standard Drinks/Week Comments Yes 0 (1 standard drink = 0.6 oz pur e alcohol) yearly [place] Safety & Environment Answer Date Rec orded Fear of Current or Ex-Partner Not on file Emotionally Abused Not on file 07/04/2023 Physically Abused Not on file 07/04/2023 Sexually Abused Not on file 07/04/2023 Physically or Sexually Abused Not on file Comments No Sex and Gender Information Value Date Recorded Sex Assigned at Female 01/04/2025 8:53 AM EDT Legal Sex Female 11:48 PM EDT Gender Identity Female 01/04/2025 8:53 AM EDT Sexual Orientation Choose not to disclose 2024 8:53 AM EDT Last Filed Vital Signs Vital Sign Reading Time Taken Comments Blood Pressure 109/68 01/12/2025 9:52 AM EDT Pulse 93 01/12/2025 9:52 AM EDT Temperature - - Respiratory Rate 18 12/13/2022 10:44 AM EDT Oxygen Saturation 97% 01/12/2025 9:52 AM EDT Inhaled Oxygen Concentration - - Weight 101 kg (222 lb) 01/04/2025 8:59 AM EDT Height 175.3 cm (5' 9 ) 01/12/2025 9:52 AM EDT Body Mass Index 32.78 08/12/2024 9:06 AM EDT Plan of Treatment Upcoming Encounters Date Type Department Care Team (Late st Contact Info) Description 04/06/2025 9:00 AM EST Follow-Up [facility] Endocrinology [address] [place] [phone] Madeline Guerin PA-C [address] [phone] 04/13/2025 10:30 AM EST Office Visit [facility] [address] [place] [address] Farzad Costa MD [address] [place] [address] Health Maintenance Due Date Last Done Comments CT Colonography 1974 Colonoscopy 1974 Colorectal Cancer Screening 1974 FIT-DNA 1974 FIT 1974 FOBT 1974 Medicare Annual Wellness (AWV) 1974 Sigmoidoscopy 1974 Diabetes: Retinopathy Screening 1984 Depression Screening 1986 Diabetes: Urine Protein Screening 1993 Hepatitis B Vaccines (1 of 3 - 19+ 3-dose series) 1993 Adult Tetanus 1996 HPV/Cotest 2004 Mammogram 08/28/2024 08/28/2022 Zoster Vaccines (1 of 2) 2024 Diabetes: Hemoglobin A1C 12/23/2024 025, 06/23/2024, 02/12/2024, Additional history exists COVID-19 Vaccine (2024- season) 2025 03/04/2023, 11/29/2020, 11/29/2020, Additional history exists Influenza Vaccine (#1) 2025 03/04/2023 Cervical Cancer Screening 07/21/2027 Pap Smear 07/21/2027 07/20/2024, 02/10, 07/11/2020 Pneumococcal Vaccine: Pediatrics (0 to 5 Years) and At-Risk Patients (6 to 64 Years) Completed 03/04/2023 HIB Vaccines Aged Out No longer eligi ble based on patient's age to complete this topic HPV Vaccines Aged Out No longer eligi ble based on patient's age to complete this topic IPV Vaccines Aged Out No longer eligi ble based on patient's age to complete this topic Meningococcal B Vaccine Aged Out No l onger eligible based on patient's age to complete this topic Meningococcal Vaccine Aged Out No dejuan amy eligible based on patient's age to complete this topic Rotavirus Vaccines Aged Out No longer eligible based on patient's age to complete this topic Medical Devices Implanted Type Area Petroleum Engineer Device Identifier Shelf Expiration Date Model / Serial / Lot Stent,Tuan Mr 3.50 X 20 - [id number] Implanted:Qty : 1 on 07/27/2022 by Eliceo Menon MD at [facility] Drug Eluting Stent N/A: Heart [employer] [id number] 10/30/2023 [id number] / / [id number] Procedures Procedure Name Priority Date/Time Associated Diagnosis Comments POCT GLYCOSYLATED HEMOGLOBIN (HGB A1C) Routine 09/22/2024 9:55 AM EDT Type 2 diabetes mellitus with hyperglycemia, with long-term current use of insulin ([facility]) from Last 3 Months or Most Recently Relevant to Health Maintenance Results * POCT glycosylated hemoglobin (Hb A1C) (09/22/2024 9:55 AM EDT) Hemoglobin A1C 5.6 SOURCE: blood Lot Number #[id number] EXP DATE Blood Venous blood specimen / Unknown 09/22/2024 9:55 AM EDT Madeline Guerin PA-C POINT OF CARE TEST ENTER/E DIT ORDERABLES Final Result from Last 3 Months or Most Recently Relevant to Health Maintenance Insurance [employer] MEDICARE ADVANTAGE MARGARETH HENDERSON Advance Directives * Full Code (Latest Code Status on File) Date Activated Date Inactivated Comments 07/27/2022 2:11 PM 07/27/2022 9:20 PM Care Teams Program Aide Group Work Relationship Specialty Start Date End Date Josh Tracy MD [address] [place] [address] PCP - General 03/01/23
--- OUTSIDE RECORDS SUMMARY | 2025-01-27 13:24 | XMS_ITS | Encounter Summary ---
Author Organization [facility] Address [address] [place] [address] Care Team Providers Care Videogame Designer Name Role Phone Josh Tracy MD Primary Care Provider Reason for Visit * Reason Comments Med Refill Encounter Details Date Type Department Care Team (Late st Contact Info) Description 01/30/2023 Refill [facility] at [facility] [address] [place] [address] Madeline Guerin PA-C [address] [facility] 2 [place] [address] Type 2 diabetes mellitus with hyperglycemia, with long-term current use of insulin ([facility]) Social History Tobacco Use Types Packs/Day Years Used Date Smoking Tobacco: Former Cigarettes 1 26 0 07/26/1996 - 07/26/2022 Passive Smoke Exposure: Never Smokeless Tobacco: Never Alcohol Use Standard Drinks/Week Comments Yes 0 (1 standard drink = 0.6 oz pur e alcohol) rarely Comments No Sex and Gender Information Value Date Recorded Sex Assigned at Female 01/04/2025 8:53 AM EDT Legal Sex Female 11:48 PM EDT Gender Identity Female 01/04/2025 8:53 AM EDT Sexual Orientation Choose not to disclose 2024 8:53 AM EDT documented as of this encounter Plan of Treatment Upcoming Encounters Date Type Department Care Team (Late st Contact Info) Description 04/06/2025 9:00 AM EST Follow-Up [facility] at [address] [address] Madeline Guerin PA-C [address] [facility] 2 [place] [address] 04/13/2025 10:30 AM EST Office Visit [facility] at [facility] [address] [place] [address] Farzad Costa MD [address] [place] [address] documented as of this encounter Visit Diagnoses Diagnosis Type 2 diabetes mellitus with hyperglycemia, with long-term current use of insulin ([facility]) documented in this encounter Care Teams Videogame Designer Relationship Specialty Start Date End Date Josh Tracy MD [address] [facility] [place] [address] PCP - General 03/01/23 documented as of this encounter
--- OUTSIDE RECORDS SUMMARY | 2025-01-27 13:24 | XMS_ITS | Encounter Summary ---
Author Organization [facility] Address [address] [place] [address] Care Team Providers Care Bottle Blowing Machine Tender Name Role Phone Josh Tracy MD Primary Care Provider [phone] Josh Tracy MD Primary Care Provider [phone] Josh Tracy MD Unavailable Mary Kate Jackson [facility] Unavailable [phone] Encounter Details Date Type Department Care Team (Late Contact Info) Description 11/19/2022 Abstract [facility] [address] [facility] [address] [place] [address] [facility] [address] [facility] [address] [place] [address] Social History Tobacco Use Types Packs/Day Years Used Date Smoking Tobacco: Former Cigarettes Smokeless Tobacco: Never Tobacco Cessation:Counseling Given: Not Answered Alcohol Use Standard Drinks/Week Comments Not Currently 0 (1 standard drink = 0.6 oz pure alcohol) caffeine intake: 1-2 cups per day. Comments Unknown Sex and Gender Information Value Date Recorded Sex Assigned at Not on file Legal Sex Female 6:35 PM EDT Gender Identity Not on file Sexual Orientation Not on file documented as of this encounter Plan of Treatment Upcoming Encounters Date Type Department Care Team (Late Contact Info) Description 02/17/2025 8:00 AM EDT Clinical Support [facility] [address] [facility] [address] [place] [address] Garry Arce MD [address] [facility] [address] Chen [address] [place] [address] [phone] 07/26/2025 10:00 AM EDT Office Visit [facility] HYMAN [address] [facility] [place] [address] Jacquelyn Huitron PA [address] [place] [address] documented as of this encounter Visit Diagnoses Not on filedocumented in this encounter Care Teams Bottle Blowing Machine Tender Relationship Specialty Start Date End Date Josh Tracy MD PCP - General Cardiology 10/03/22 06/16/23 Josh Tracy MD PCP - General Family Medicine 06/17/23 Josh Tracy MD [address] [place] [address] PCP - [employer] 02/10/23 Mary Kate Jackson, [facility] [address] [facility] [address] [place] [address] Auto Customize Painter Behavioral Health 05/26/24 documented as of this encounter
--- OUTSIDE RECORDS SUMMARY | 2025-01-27 13:24 | XMS_ITS | Encounter Summary ---
Author Organization [facility] Address [address] [place] [address] Care Team Providers Care Cloth Cutting Machine Operator Name Role Phone Josh Tracy MD Primary Care Provider [phone] Josh Tracy MD Primary Care Provider [phone] Josh Tracy MD Unavailable Mary Kate Jackson [facility] Unavailable [phone] Encounter Details Date Type Department Care Team (Late st Contact Info) Description 09/21/2022 Orders Only DAY[facility] Santacruz [facility] [address] [facility] 160 [place] [address] Leta Villarreal LPN Social History Tobacco Use Types Packs/Day Years Used Date Smoking Tobacco: Former Cigarettes Smokeless Tobacco: Never Tobacco Cessation:Counseling Given: Not Answered Alcohol Use Standard Drinks/Week Comments Not Currently 0 (1 standard drink = 0.6 oz pur e alcohol) Comments Unknown Sex and Gender Information Value Date Recorded Sex Assigned at Not on file Legal Sex Female 6:35 PM EDT Gender Identity Not on file Sexual Orientation Not on file documented as of this encounter Plan of Treatment Upcoming Encounters Date Type Department Care Team (Late st Contact Info) Description 02/17/2025 8:00 AM EDT Clinical Support [facility] [address] [place] [address] Garry Arce MD [address] [facility] [address] Chen [address] [place] [address] 07/26/2025 10:00 AM EDT Office Visit [facility] HYMAN [address] [facility] [place] [phone] Jacquelyn Huitron PA [address] [facility] [place] [address] documented as of this encounter Visit Diagnoses Not on filedocumented in this encounter Care Teams Cloth Cutting Machine Operator Relationship Specialty Start Date End Date Josh Tracy MD PCP - General Cardiology 10/03/22 06/16/23 Josh Tracy MD PCP - General Family Medicine 06/17/23 Josh Tracy MD [address] [place] [address] PCP - [employer] 02/10/23 Mary Kate Jackson, [facility] [address] [place] [address] Construction Tech Behavioral Health 05/26/24 documented as of this encounter
--- OUTSIDE RECORDS SUMMARY | 2025-01-27 13:24 | XMS_ITS | Encounter Summary ---
Author Organization [facility] Address [address] [place] [address] Care Team Providers Care Skin Grader Name Role Phone Josh Tracy MD Primary Care Provider [phone] Encounter Details Date Type Department Care Team (Late Contact Info) Description 01/20/2025 Telephone [facility] [address] [place] [address] Deanne Jacobson MA Social History Tobacco Use Types Packs/Day Years Used Date Smoking Tobacco: Former Cigarettes 1 26 0 07/26/1996 - 07/26/2022 Passive Smoke Exposure: Never Smokeless Tobacco: Never Alcohol Use Standard Drinks/Week Comments Yes 0 (1 standard drink = 0.6 oz pur e alcohol) yearly [place] Safety & Environment Answer Date Rec orded [...] Info) Description 04/06/2025 9:00 AM EST Follow-Up [facility] Comprehensive Medical Practice at [address] [address] Madeline Guerin PA-C [address] [facility] 2 [place] [address] 04/13/2025 10:30 AM EST Office Visit [facility] Heart [facility] [address] [place] [address] Farzad Costa MD [address] [place] [address] documented as of this encounter Visit Diagnoses Not on filedocumented in this encounter Care Teams Skin Grader Relationship Specialty Start Date End Date Josh Tracy MD [address] [facility] [place] [address] PCP - General 03/01/23 documented as of this encounter
--- OUTSIDE RECORDS SUMMARY | 2025-01-27 13:24 | XMS_ITS | Clinical Summary ---
Author Organization [employer] Address [id number] [address] [place] [address] Care Team Providers Care Hydraulic Oil Tool Operator Name Role Phone Josh Tracy MD Primary Care Provider [phone] Allergies Active Allergy Reactions Criticality Noted Date Comments Ciprofloxacin Other (See Comments) 01/17/2017 Codeine Rash Low 03/04/2018 Desonide Dermatitis,GI Disturbance High 11/24/2012 patient unaware but hx of TBI so she may not recall Erythromycin Rash Low 03/04/2018 Latex Anaphylaxis High 03/04/2018 Penicillins Rash Low 03/04/2018 Sulfa (Sulfonamide Antibiotics) Rash Low 03/04/2018 Medications metaxalone (SKELAXIN) 800 mg tablet Take 800 mg by mouth 3 (three) times a day. Active topiramate (TOPAMAX) 100 mg tablet Take 100 mg by mouth 2 (two) times a day. Active ALPRAZolam (XANAX) 1 mg tablet Take 1 mg by mouth 3 (three) times a day as needed for anxiety. Active venlafaxine XR (EFFEXOR-XR) 150 mg 24 hr capsule Take 150 mg by mouth daily. Active pregabalin (LYRICA) 50 mg capsule Take 50 mg by mouth 3 (three) times a day. Active prochlorperazin e (COMPAZINE) 10 mg tablet Take 10 mg by mouth every 6 (six) hours as needed for nausea or vomiting. Active atorvastatin (LIPITOR) 40 mg tablet Take 40 mg by mouth nightly. Active hydrOXYzine (ATARAX) 50 mg tablet Take 50 mg by mouth nightly. Active meclizine (ANTIVERT) 25 mg tablet Take 25 mg by mouth 4 (four) times a day as needed for dizziness. Active metFORMIN (GLUCOPHAGE) 1000 mg tablet Take 1,000 mg by mouth 2 (two) times a day with meals. Active amitriptyline (ELAVIL) 25 mg tablet Take 25 mg by mouth nightly. Active aspirin 81 mg Take 81 mg by mouth daily. Active ascorbic acid, vitamin C, (vitamin C) 1000 mg tablet Take 1,000 mg by mouth 2 (two) times a day. Active calcium carbonate (OS-KUNAL) 600 mg (1,500 mg) tablet Take 600 mg by mouth 2 (two) times a day with meals. Active insulin glargine (LANTUS) 100 unit/mL injection Inject 35 Units under the skin 2 (two) times a day. Active insulin aspart U-100 (NovoLOG) 100 unit/mL injection Inject under the skin 3 (three) times a day before meals. Active magnesium oxide (MAG-OX) 400 mg tablet Take 400 mg by mouth daily. Active ketorolac (TORADOL) 30 mg/mL (1 mL) injection Inject 30 mg into the appropriate muscle every 6 (six) hours as needed for pain. Active sennosides-docu sate sodium (SENOKOT-S) 8.6-50 mg Take 2 tablets by mouth in the morning. 30 tablet 2 Active Active Problems Problem Noted Date Diagnosed Date SOB (shortness of breath) 04/02/2022 Social History Tobacco Use Types Packs/Day Years Used Date Smoking Tobacco: Every Day Cigarettes Smokeless Tobacco: Never Tobacco Cessation:Ready to Q uit: Not Asked; Counseling Given: Not Answered Alcohol Use Standard Drinks/Week Comments No 0 (1 standard drink = 0.6 oz pur e alcohol) AUDIT-C Answer Date Recorded Frequency of Alcohol Consumption Never 05/18/2019 Average Number of Drinks Not on file 020 Frequency of Binge Drinking Not on file 10/2019 Childcare Answer Date Recorded Childcare Unknown 10/22/2018 Employment Answer Date Recorded Employment Unknown 10/22/2018 Hunger Screening Answer Date Recorded Within the past 12 months we worried whether our food would run out before we got money to buy more. Never True 11/14/2022 Within the past 12 months th e food we bought just didn't last and we didn't have money to get more. Never True 11/14/2022 Purpose - Life Answer Date Recorded Purpose and direction in life Unknown Comments No Sex and Gender Information Value Date Recorded Sex Assigned at Not on file Legal Sex Female 11:34 AM EDT Gender Identity Not on file Sexual Orientation Not on file Last Filed Vital Signs Vital Sign Reading Time Taken Comments Blood Pressure 129/80 04/02/2022 6:48 AM EST Pulse 97 04/02/2022 7:36 AM EST Temperature 36.3 C (97.4 F) 04/02/2022 4:49 AM EST Respiratory Rate 20 04/02/2022 7:36 AM EST Oxygen Saturation 97% 04/02/2022 7:36 AM EST Inhaled Oxygen Concentration - - Weight 108 kg (238 lb) 11/14/2022 8:55 AM EDT Height 175.3 cm (5' 9 ) 11/14/2022 8:55 AM EDT Body Mass Index 35.15 11/14/2022 8:55 AM EDT Plan of Treatment Health Maintenance Due Date Last Done Comments Depression Screening 1986 Tobacco Screening 1986 DTaP,Tdap and Td Vaccines (1 - Tdap) 1993 Adult BMI Screening 11/15/2023 11/14/2022 Zoster (Shingles) Vaccine (1 of 2) 2024 COVID-19 Vaccine (3 - season) 2025, 11/01/2020 Influenza Vaccine 01/11/2025 Pap Smear 02/26/2026 02/26/2023 Medical Devices Not on file Insurance [employer] Member Subscriber Plan / Payer (Ef fective 2020-Present) Name:BondJacquelyn Relation to Subscriber:Spouse Name:Orville Bond Date of :1973 (Home) Address: [address] [place] [address] Payer ID:Not on file Type:Not on file Address: [address] [place] [id number] [employer] Care Teams Hydraulic Oil Tool Operator Relationship Specialty Start Date End Date Josh Tracy MD PCP - General Family Medicine 03/04/18
--- OUTSIDE RECORDS SUMMARY | 2025-01-27 13:24 | XMS_ITS | Encounter Summary ---
Author Organization [facility] Address [address] [place] [address] Care Team Providers Care Inside Plant Supervisor Name Role Phone Josh Tracy MD Primary Care Provider [phone] Josh Tracy MD Unavailable Mary Kate Jackson [facility] Unavailable [phone] Reason for Visit * Reason Comments Med Refill Encounter Details Date Type Department Care Team (Late st Contact Info) Description 02/05/2024 Refill [facility] 112 [facility] 160 [place] [address] Carolynn Jose, FELT MACHINE MECHANIC-STUD SHEEP FARMER 112 [facility] 160 [place] [address] Major depressive disorder, single episode, severe without [...] [address] [place] [address] Garry Arce MD [address] [facility] [address] Chen [address] [place] [address] [phone] 07/26/2025 10:00 AM EDT Office Visit [facility]NE HYMAN [address] [facility] [place] [address] Jacquelyn Huitron PA [address] [facility] [address] [place], [place] [phone] documented as of this encounter Visit Diagnoses Diagnosis Major depressive disorder, single episode, severe without psychotic features (HCC) documented in this encounter Additional Health Concerns Assessment Noted Time PHQ-9 Depression Total Score: 16 023 9:00 AM EDT documented as of this encounter Care Teams Inside Plant Supervisor Relationship Specialty Start Date End Date Josh Tracy MD PCP - General Family Medicine 06/17/23 Josh Tracy MD [address] [place] [address] PCP - Aet[employer] 02/10/23 Mary Kate Jackson, [facility] [address] [place] [address] Flame Degreaser Behavior[facility] 05/26/24 documented as of this encounter
--- OUTSIDE RECORDS SUMMARY | 2025-01-27 13:24 | XMS_ITS | Encounter Summary ---
Author Organization [facility] Address [address] [place] [address] Care Team Providers Care Cork Tile Floor Layer Name Role Phone Josh Tracy MD Primary Care Provider [phone] Josh Tracy MD Primary Care Provider [phone] Josh Tracy MD Unavailable Mary Kate Jackson [facility] Unavailable [phone] Reason for Visit * Reason Comments Med Refill Encounter Details Date Type Department Care Team (Late st Contact Info) Description 06/05/2023 Refill [facility] 112 [facility] 160 [place] [address] Carolynn Jose, [facility] 112 [facility] 160 [place] [address] Insomnia, unspecified type Social History Tobacco Use Types Packs/Day Years Used Date Smoking Tobacco: Former Cigarettes Smokeless Tobacco: Never Alcohol Use Standard [...] Clinical Support [facility] [address] [place] [address] Garry Arce MD [address] [facility] [address] [place] [address] [phone] 07/26/2025 10:00 AM EDT Office Visit DAYNE HYMAN [address] [place] [address] Jacquelyn Huitron PA [address] [facility] [place] [address] documented as of this encounter Visit Diagnoses Diagnosis Insomnia, unspecified type documented in this encounter Additional Health Concerns Assessment Noted Time PHQ-9 Depression Total Score: 16 023 9:00 AM EDT documented as of this encounter Care Teams Cork Tile Floor Layer Relationship Specialty Start Date End Date Josh Tracy MD PCP - General Cardiology 10/03/22 06/16/23 Josh Tracy MD PCP - General Family Medicine 06/17/23 Josh Tracy MD [address] [place] [address] PCP - Aet[employer] 02/10/23 Mary Kate Jackson [facility] [address] [place] [address] Lactation Specialist Behavioral Health 05/26/24 documented as of this encounter
--- OUTSIDE RECORDS SUMMARY | 2025-01-27 13:24 | XMS_ITS | Encounter Summary ---
Author Organization [facility] Address [address] [place] [address] Care Team Providers Care Pointing Machine Operator Name Role Phone Josh Tracy MD Primary Care Provider [phone] Josh Tracy MD Primary Care Provider [phone] Josh Tracy MD Unavailable Mary Kate Jackson [facility] Unavailable [phone] Reason for Visit * Reason Comments Med Refill Encounter Details Date Type Department Care Team (Late st Contact Info) Description 10/26/2022 Refill [facility] 112 [facility] 160 [place] [address] Carolynn Jose, ENGRAVER LETTERING[facility] [address] [facility] 160 [place] [address] Generalized anxiety disorder ; Insomnia, unspecified type Social History Tobacco Use Types Packs/Day Years Used Date Smoking Tobacco: Former Cigarettes Smokeless Tobacco: Never Alcohol Use Standard Drinks/Week Comments Not Currently [...] [facility] [address] [facility] [address] [place] [address] Garry Arce MD [address] [facility] [place] [address] 07/26/2025 10:00 AM EDT Office Visit [facility] Yonatan HYMAN [address] [facility] [place] [address] Jacquelyn Huitron PA [address] [facility] [place] [address] documented as of this encounter Visit Diagnoses Diagnosis Generalized anxiety disorder Generalized anxiety disorder Insomnia, unspecified type documented in this encounter Care Teams Pointing Machine Operator Relationship Specialty Start Date End Date Josh Tracy MD PCP - General Cardiology 10/03/22 06/16/23 Josh Tracy MD PCP - General Family Medicine 06/17/23 Josh Tracy MD [address] [place] [address] PCP - Aetna 02/10/23 Mary Kate Jackson, [facility] [address] [facility] [address] [place] [address] Joiner [facility] 05/26/24 documented as of this encounter
--- OUTSIDE RECORDS SUMMARY | 2025-01-27 13:24 | XMS_ITS | Encounter Summary ---
Author Organization [facility] Address [address] [facility] [place] [address] Care Team Providers Care Heel Lift Gouger Name Role Phone Josh Tracy MD Primary Care Provider [phone] Josh Tracy MD Primary Care Provider [phone] Josh Tracy MD Unavailable Mary Kate Jackson [facility] Unavailable [phone] Encounter Details Date Type Department Care Team (Late st Contact Info) Description 10/08/2022 Abstract [facility] [address] [facility] [address] [place] [address] Carolynn Jose, YARN DRY ROOM WORKER-[facility] 112 [facility] 160 [place] [address] Social History Tobacco Use Types Packs/Day Years [...] Clinical Support [facility] [address] [place] [address] Garry Arce MD [address] [facility] [address] Chen [address] [place] [phone] 07/26/2025 10:00 AM EDT Office Visit NOMRoberto HYMAN [address] [facility] [place] [address] Jacquelyn Huitron PA [address] [facility] [place] [address] documented as of this encounter Visit Diagnoses Not on filedocumented in this encounter Care Teams Heel Lift Gouger Relationship Specialty Start Date End Date Josh Tracy MD PCP - General Cardiology 10/03/22 06/16/23 Josh Tracy MD PCP - General Family Medicine 06/17/23 Josh Tracy MD [address] [place] [address] PCP - Aet[employer] 02/10/23 Mary Kate Jackson, [facility] [address] [facility] [address] [place] [address] Inside B2B Sales Behavioral Health 05/26/24 documented as of this encounter
--- OUTSIDE RECORDS SUMMARY | 2025-01-27 13:24 | XMS_ITS | Encounter Summary ---
Author Organization [facility] Address [address] [place] [address] Care Team Providers Care Capital Campaign Fundraiser Name Role Phone Josh Tracy MD Primary Care Provider [phone] Josh Tracy MD Primary Care Provider [phone] Josh Tracy MD Unavailable Mary Kate Jackson [facility] Unavailable Encounter Details Date Type Department Care Team (Late st Contact Info) Description 03/12/2023 Abstract [facility] [address] [place] [phone] Garry Arce MD [address] [facility] [address] [place] [address] [phone] Social History Tobacco Use Types Packs/Day Years Used Date Smoking Tobacco: Former Cigarettes Smokeless Tobacco: Never Tobacco Cessation:Counseling Given: Not Answered Alcohol Use Standard Drinks/Week Comments Never 0 (1 standard drink = 0.6 oz pure alcohol) caffeine intake: maybe 1 coffee cups per day PHQ-2 Answer Date Recorded [...] [address] [place] [address] Garry Arce MD [address] [facility] [address] Z[facility] [facility], [place] [phone] 07/26/2025 10:00 AM EDT Office Visit [facility]NE Tam [facility] [address] [place] [place] [address] Jacquelyn Huitron PA [address] [facility] [place] [address] documented as of this encounter Visit Diagnoses Not on filedocumented in this encounter Additional Health Concerns Assessment Noted Time PHQ-9 Depression Total Score: 16 023 9:00 AM EDT documented as of this encounter Care Teams Capital Campaign Fundraiser Relationship Specialty Start Date End Date Josh Tracy MD PCP - General Cardiology 10/03/22 06/16/23 Josh Tracy MD PCP - General Family Medicine 06/17/23 Josh Tracy MD [address] [place] [address] PCP - [employer]et[employer] 02/10/23 Mary Kate Jackson [facility] [address] [place] [address] Coal Yard Supervisor Behavioral Health 05/26/24 documented as of this encounter
--- OUTSIDE RECORDS SUMMARY | 2025-01-27 13:24 | XMS_ITS | Encounter Summary ---
Author Organization [facility] Address [address] [place] [address] Care Team Providers Care Insecticide Mixer Name Role Phone Josh Tracy MD Primary Care Provider [phone] Josh Tracy MD Primary Care Provider [phone] Josh Tracy MD Unavailable Mary Kate Jackson [facility] Unavailable [phone] Reason for Visit * Reason Comments Med Refill Encounter Details Date Type Department Care Team (Late st Contact Info) Description 06/05/2023 Refill [facility] [address] [facility] [address] [place] [address] Carolynn Jose, [employer] [address] [facility] [address] [place] [address] Generalized anxiety disorder Social History Tobacco Use Types Packs/Day Years [...] [address] [place] [id number] Garry Arce MD [address] [facility] [address] [place] [address] [phone] 07/26/2025 10:00 AM EDT Office Visit DAYNE HYMAN [address] [place] [place] [address] Jacquelyn Huitron PA [address] [facility] [place] [address] documented as of this encounter Visit Diagnoses Diagnosis Generalized anxiety disorder Generalized anxiety disorder documented in this encounter Additional Health Concerns Assessment Noted Time PHQ-9 Depression Total Score: 16 023 9:00 AM EDT documented as of this encounter Care Teams Insecticide Mixer Relationship Specialty Start Date End Date Josh Tracy MD PCP - General Cardiology 10/03/22 06/16/23 Josh Tracy MD PCP - General Family Medicine 06/17/23 Josh Tracy MD [address] [place] [address] PCP - [employer] 02/10/23 Mary Kate Jackson, [facility] [address] [place] [address] Foundry Manager Behavioral Health 05/26/24 documented as of this encounter
--- OUTSIDE RECORDS SUMMARY | 2025-01-27 13:24 | XMS_ITS | Encounter Summary ---
Author Organization [facility] Address [address] [place] [address] Care Team Providers Care Fuel Verification Technician Name Role Phone Josh Tracy MD Primary Care Provider [phone] Josh Tracy MD Primary Care Provider [phone] Josh Tracy MD Unavailable Mary Kate Jackson [facility] Unavailable [phone] Encounter Details Date Type Department Care Team (Late st Contact Info) Description 04/02/2023 Abstract [facility] [address] [place] [address] Cara Cowan LPN [address] [facility] [place] [address] [place] [address] Social History Tobacco Use Types Packs/Day Years [...] [address] [place] [address] Garry Arce MD [address] [facility] [address] Chen [address] [place] [address] [phone] 07/26/2025 10:00 AM EDT Office Visit DAYNE HYMAN [address] [facility] [id number] Jacquelyn Huitron PA [address] [facility] [place] [address] documented as of this encounter Visit Diagnoses Not on filedocumented in this encounter Additional Health Concerns Assessment Noted Time PHQ-9 Depression Total Score: 16 023 9:00 AM EDT documented as of this encounter Care Teams Fuel Verification Technician Relationship Specialty Start Date End Date Josh Tracy MD PCP - General Cardiology 10/03/22 06/16/23 Josh Tracy MD PCP - General Family Medicine 06/17/23 Josh Tracy MD [address] [place] [address] PCP - [employer] 02/10/23 Mary Kate Jackson [facility] [address] [facility] [address] [place] [address] Television Mechanic Behavioral Health 05/26/24 documented as of this encounter
--- OUTSIDE RECORDS SUMMARY | 2025-01-27 13:24 | XMS_ITS | Clinical Summary ---
Author Organization [facility] Healthcare Address [address] [place] [place] [address] Care Team Providers Care Ambulance Assistant Name Role Phone Josh Tracy MD Primary Care Provider [phone] Josh Tracy MD Unavailable Mary Kate Jackson [facility] Unavailable [phone] Allergies Active Allergy Reactions Criticality Noted Date Comments Ciprofloxacin Hives,Unknown Medium 01/17/2017 Other Reaction(s): Other (See Comments), Unknown Cod Liver Oil Rash Low 09/06/2022 Codeine Unknown 09/21/2022 Desonide Unknown High 11/24/2012 Other Reaction(s): hives Other Reaction(s): Dermatitis, GI Disturbance patient unaware but hx of TBI so she may not recall Erythromycin Hives,Rash Medium 04/24/2005 Other Reaction(s): Not available Erythromycin Base 09/21/2022 Other Reaction(s): Unknown Latex Anaphylaxis,Itching High 04/24/2005 Other Reaction(s): Unknown Penicillins Rash Low 03/04/2018 Other Reaction(s): Unknown Prochlorperazine GI intolerance 04/13/2024 Restless Sulfa Antibiotics Hives,Rash,Unknown Low 03/04/2018 Wound Dressing Adhesive Unknown High 04/24/2021 Blistering Zinc Oxide Rash Low 09/06/2022 Medications albuterol (2.5 MG/3ML) 0.083% nebulizer solution Take 2.5 mg by nebulization every 4 (four) hours if needed. Active albuterol HFA 90 mcg/act inhaler Inhale 2 puffs every 4 (four) hours if needed. Active Alpha-Lipoic Acid 600 MG capsule Take 1 capsule by mouth in the morning. Active ascorbic acid (Vitamin C) 1000 MG tablet Take 1,000 mg by mouth in the morning. Active aspirin 81 MG EC tablet Take 81 mg by mouth 1 (one) time. Active Calcium Carbonate-Vit D-Min (Caltrate 600+D Plus Minerals) 600-800 MG-UNIT chewable tablet Chew. Active cholecalciferol (Vitamin D-3) 50 MCG (2000 UT) tablet Take 1 tablet by mouth in the morning. Active cyclobenzaprine (Flexeril) 10 MG tablet Take 10 mg by mouth 3 (three) times a day as needed. Active furosemide (Lasix) 40 MG tablet Take 40 mg by mouth in the morning. Active isosorbide mononitrate ER (Imdur) 30 MG 24 hr tablet Take 30 mg by mouth in the morning. Active lisinopril-hydroC HLOROthiazide 10-12.5 MG tablet Take 1 tablet by mouth in the morning. Active magnesium oxide (Mag-Ox) 400 (241.3 Mg) MG tablet Take 400 mg by mouth at bedtime. 022 Active nystatin (Mycostatin) 940512 UNIT/GM powder APPLY 1 application TO THE AFFECTED AREA(S) THREE TIMES DAILY (EXTERNALLY) 023 Active TRUEplus Insulin Syringe 31G X 5/16 0.5 ML misc USE DIRECTED to refill pump EVERY 3 DAYS Active Rimegepant Sulfate (Nurtec) 75 MG tablet dispersibleIndica tions:Intractable chronic migraine without aura and without status migrainosus Take 75 mg by mouth if needed (once at onset of migraine every other day PRN) 16 tablet 11 024 Active rosuvastatin (Crestor) 40 MG tablet Take 40 mg by mouth in the morning. Active ezetimibe (Zetia) 10 MG tablet Take 10 mg by mouth in the morning. 024 Active Glucose Blood (Blood Glucose Test Strips 333) stripIndications: Type 2 diabetes mellitus with hyperglycemia, with long-term current use of insulin (HCC) 1 each by In Vitro route in the morning and 1 each at noon and 1 each in the evening and 1 each before bedtime. 100 strip 11 024 Active NovoLOG FLEXPEN 100 UNIT/ML penIndications:Ty pe 2 diabetes mellitus with hyperglycemia (HCC) INJECT 100 UNITS EVERY DAY via insulin pump 90 mL 1 Active glipiZIDE (Glucotrol) 10 MG tabletIndications :Type 2 diabetes mellitus with hyperglycemia (HCC) TAKE 1 TABLET BY MOUTH DAILY 30 tablet 5 024 Active metFORMIN (Glucophage) 1000 MG tabletIndications :Type 2 diabetes mellitus with hyperglycemia (HCC) TAKE 1 TABLET BY MOUTH TWICE DAILY 60 tablet 5 024 Active fenofibrate (Triglide) 160 MG tabletIndications :Hyperlipidemia, unspecified TAKE 1 TABLET BY MOUTH DAILY 90 tablet 3 025 Active Blood Glucose Monitoring Suppl (Blood Glucose Monitor System) w/Device kitIndications:Ty pe 2 diabetes mellitus with polyneuropathy (HCC) Test four times daily 1 kit 025 2025 Active prochlorperazine (Compazine) 10 MG tabletIndications :Dizziness and giddiness TAKE 1 TABLET BY MOUTH EVERY 6 HOURS NEEDED 60 tablet 11 025 Active Lancet Devices (Autolet) lancing deviceIndications :Type 2 diabetes mellitus with polyneuropathy (HCC) Use as instructed 1 each 025 2025 Active clopidogrel (Plavix) 75 MG tablet Active Lantus SoloStar 100 UNIT/ML pen Active Lancets (OneTouch Delica Plus Ussoph06O) [facility] USE DIRECTED Active Mounjaro 5 MG/0.5ML solution auto-injector INJECT 5mg SUBCUTANEOUSLY (UNDER THE SKIN) once a week Active progesterone (Prometrium) 100 MG capsuleIndication s:Hormone imbalance,Hot flashes Take 1 capsule (100 mg) by mouth Daily 30 capsule 11 025 2025 Active metoclopramide (Reglan) 10 MG tabletIndications :Dizziness and giddiness TAKE 1 TABLET BY MOUTH FOUR TIMES DAILY 120 tablet 5 025 Active venlafaxine XR (Effexor XR) 225 MG 24 hr tabletIndications :Major depressive disorder, single episode, severe without psychotic features (HCC) TAKE 1 TABLET BY MOUTH IN THE MORNING 30 tablet 2 Active atomoxetine (Strattera) 80 MG capsuleIndication s:ADD (attention deficit disorder) without hyperactivity TAKE 1 CAPSULE BY MOUTH DAILY 30 capsule 5 Active meclizine (Antivert) 25 MG tabletIndications :Dizziness and giddiness TAKE 1 TABLET BY MOUTH FOUR TIMES DAILY NEEDED 120 tablet 5 Active dapagliflozin (Farxiga) 10 MGIndications:Typ e 2 diabetes mellitus with polyneuropathy (HCC) TAKE 1 TABLET BY MOUTH DAILY 30 tablet 5 Active hydrOXYzine HCl (Atarax) 50 MG tabletIndications :Generalized anxiety disorder TAKE 1 TABLET BY MOUTH DAILY NEEDED FOR ANXIETY 30 tablet 5 Active ALPRAZolam (Xanax) 1 MG tabletIndications :Generalized anxiety disorder TAKE 1 TABLET BY MOUTH DAILY NEEDED 30 tablet 1 Active tiZANidine (Zanaflex) 4 MG tabletIndications :Radiculopathy, cervical region Take 2 tablets (8 mg) by mouth every 8 (eight) hours if needed for muscle spasms 180 tablet 2 Active pregabalin (Lyrica) 300 MG capsuleIndication s:Lumbar spondylosis,Cervi silvia spondylosis,Other nerve root and plexus disorders Take 1 capsule (300 mg) by mouth in the morning and 1 capsule (300 mg) in the evening and 1 capsule (300 mg) before bedtime. 90 capsule 2 2024 Active Qulipta 60 MG tablet Take 1 tablet by mouth Daily Active butalbital-acetam inophen-caffeine (Fioricet) 50-300-40 MG capsule Take 1 capsule by mouth Daily as needed Active metoprolol tartrate (Lopressor) 25 MG tablet Take 12.5 mg by mouth in the morning and 12.5 mg in the evening. 025 2025 Active warfarin (Coumadin) 5 MG tablet TAKE 1 TABLET BY MOUTH DAILY DIRECTED per Coumadin clinic Active Water For Irrigation, Sterile (sterile water) irrigation 08/07/2 025 Active estradiol (Estrace) 1 MG tabletIndications :Hot flashes,Vaginal irritation Take 1 tablet (1 mg) by mouth Daily Take 1 tablet by mouth for 30 days 30 tablet 3 025 2024 Active estradiol (Estrace) 0.5 MG tabletIndications :Hormone imbalance,Hot flashes Take 1 tablet (0.5 mg) by mouth Daily Take 1 tablet by mouth for 30 days 30 tablet 11 025 2024 Discontinued estradiol (Estrace) 1 MG tabletIndications :Hot flashes,Vaginal irritation Take 1 tablet (1 mg) by mouth Daily Take 1 tablet by mouth for 30 days 30 tablet 3 025 2024 Discontinued ketorolac (Toradol) 10 MG tabletIndications :Radiculopathy, cervical region Take 1 tablet (10 mg) by mouth every 6 (six) hours if needed for moderate pain 20 tablet 2 025 2024 traMADol (Ultram) 50 MG tabletIndications :Radiculopathy, cervical region,Lumbar spondylosis Take 1 tablet (50 mg) by mouth every 6 (six) hours if needed for severe pain for up to 5 days 15 tablet 025 2024 Hospital, Clinic, or Other Facility Administered Medication Ordered Dose Route Frequency Start Date End Date Status lidocaine (Xylocaine) 2 % injection 20 mgIndications:Trochanteric bursitis of both hips,Nerve root and plexus disorder, unspecified 20 mg IJ Once 07/16/2024 Active lidocaine (Xylocaine) 2 % injection 40 mgIndications:Trochanteric bursitis of both hips,Nerve root and plexus disorder, unspecified 40 mg ID Once 12/23/2024 Active Active Problems Problem Noted Date Diagnosed Date Medicare annual wellness visit, subsequent 08/10 Assessment & Plan (08/10/2024 10:03 AM EDT): Due for labs. Discussed proper diet and regular aerobic exercise. Need aerobic exercise 5-6 days a week for 30 minutes at a time. Smaller portions and limit total calories. Colonoscopy every 10 years. Tetanus every 10 years. Advised not to smoke. Encounter for long-term (current) use of medicat ions 08/10/2024 Abnormal TSH 08/10/2024 Nerve root and plexus disorder, unspecified 07/11 Dyslipidemia 05/11/2024 Other chronic pancreatitis 05/11/2024 Assessment & Plan (05/11/2024 9:22 AM EST): No symptoms and monitor. Cervical paraspinal muscle spasm 08/30/2023 Other nerve root and plexus disorders 08/06/2023 Migraine without aura and wi thout status migrainosus, not intractable 08/06/2023 Trochanteric bursitis, right hip 08/06/2023 Trochanteric bursitis, left hip 08/06/2023 Lumbar radiculopathy 07/02/2023 Cervical spondylosis 07/02/2023 ADD (attention deficit disorder) without hyperac tivity 06/20/2023 Assessment & Plan (10/12/2024 9:09 AM EDT): Symptoms controlled with strattera and continue. Assessment & Plan (05/11/2024 9:21 AM EST): Symptoms controlled with strattera and continue. Assessment & Plan (12/13/2023 11:11 AM EDT): Symptoms controlled with strattera and continue. Assessment & Plan (07/15/2023 8:49 AM EST): Symptoms improved with medication but wears off and increase dose. Assessment & Plan (06/20/2023 2:50 PM EST): Worsening symptoms and try strattera. Trochanteric bursitis of both hips 12/17/2022 Brachial plexus neuropathy 12/11/2022 Lumbar spondylosis 12/11/2022 Complex regional pain syndrome I, unspecified Assessment & Plan (06/20/2023 2:53 PM EST): Pain stable and follow up with specialists. Generalized anxiety disorder 09/21/2022 Assessment & Plan (10/12/2024 9:09 AM EDT): Symptoms controlled with medication and continue. Use xanax PRN. Assessment & Plan (05/11/2024 9:22 AM EST): Symptoms controlled with medication and continue. Use xanax PRN. Assessment & Plan (12/13/2023 11:13 AM EDT): Symptoms controlled with medication and continue. Use xanax PRN. Assessment & Plan (07/15/2023 8:49 AM EST): Symptoms controlled with medication and continue. Use xanax PRN. Assessment & Plan (06/20/2023 2:52 PM EST): Symptoms controlled with medication and continue. Use xanax PRN. Panic disorder 09/21/2022 Insomnia 09/21/2022 MDD (major depressive disorder), recurrent episo de, mild 09/21/2022 Assessment & Plan (10/12/2024 9:09 AM EDT): Symptoms controlled with medication and continue. Assessment & Plan (12/13/2023 11:13 AM EDT): Symptoms controlled with medication and continue. Assessment & Plan (07/15/2023 8:50 AM EST): Symptoms controlled with medication and continue. Assessment & Plan (06/20/2023 2:52 PM EST): Symptoms controlled with medication and continue. Coronary artery disease invo lving [place] coronary artery of [place] heart without angina pectoris 08/29/2022 Overview (12/11/2022): Last Assessment & Plan: Coronary artery disease is stable without any concerning symptoms Continue GDMT- add toprol 12.5 mg daily, ASA< plavix, lipitor continue risk factor modifications- heart healthy diet, regular exercise as tolerated and continue all medications. Type 2 diabetes mellitus with polyneuropathy Assessment & Plan (10/12/2024 9:10 AM EDT): Pain stable and continue lyrica. Assessment & Plan (05/11/2024 9:22 AM EST): Pain stable and continue lyrica. Assessment & Plan (12/13/2023 11:13 AM EDT): Pain stable and continue lyrica. S/P drug eluting coronary stent placement 2022 Overview (12/11/2022): 1. 07/06/22 Coronary angiogram shows severe single-vessel coronary artery disease with 85% stenosis of the mid RCA which was reduced to 0% by a Synergy XD drug-eluting stent. 2. Mild disease in the LAD, circumflex and distal RCA. Normal left main. Last Assessment & Plan: Stable, continue DAPT x 1 year Vertigo 08/29/2022 Benign essential HTN 07/06/2022 Overview (12/11/2022): Last Assessment & Plan: Hypertension is well controlled 110/60 stop lisinopril/HCTZ, will start toprol 12.5 mg daily for CAD and HTN Assessment & Plan (05/11/2024 9:22 AM EST): BP controlled and monitor PRN. Assessment & Plan (12/13/2023 11:12 AM EDT): BP controlled and monitor PRN. Assessment & Plan (07/15/2023 8:49 AM EST): BP controlled and monitor PRN. Assessment & Plan (06/20/2023 2:50 PM EST): BP controlled and monitor PRN. Edema of both lower extremities 07/06/2022 Overview (12/11/2022): Last Assessment & Plan: Stable, no edema today- continue lasix 40 mg daily Mild intermittent asthma without complication Overview (12/11/2022): Last Assessment & Plan: F/U with PCP and pulmonary Assessment & Plan (06/20/2023 2:53 PM EST): No SOB and use albuterol PRN. Tobacco dependence 07/06/2022 Overview (12/11/2022): Last Assessment & Plan: Tobacco use - she has quit smoking Type 2 diabetes mellitus wit h hyperglycemia, with long-term current use of insulin 07/06/2022 Overview (12/11/2022): Last Assessment & Plan: Diabetes is uncontrolled, A1C quite elevated Referral to endocrinology completed. Assessment & Plan (10/12/2024 9:10 AM EDT): BS improved and A1C 6.9 few months ago. Stick to ADA diet and limit carbs. Follow with endo. Assessment & Plan (05/11/2024 9:22 AM EST): BS improved and due for A1C in a few weeks. Stick to ADA diet and limit carbs. Assessment & Plan (12/13/2023 11:13 AM EDT): BS improved and due for A1C. Stick to ADA diet and limit carbs. Assessment & Plan (07/15/2023 8:50 AM EST): Reports BS variable and A1C 7.2. Stick to ADA diet and limit carbs. Follow up with endo. Assessment & Plan (06/20/2023 2:50 PM EST): Reports BS controlled and due for A1C. Stick to ADA diet and limit carbs. Unstable angina 07/06/2022 Overview (12/11/2022): Last Assessment & Plan: New pt presented with concerning s/s of angina with multiple co-morbidities/risk factors- DM type 2, HTN, HPL, Obesity, Family h/o early CAD/GA, current smoker. Will send for cardiac cath to assess for significant coronary stenosis. ASCVD- 10 year risk of CVD 15.1%; 10 year risk with optimal risk factor medication 0.6% Increase lipitor to 80 mg from 40 mg, recommended referral to endocrinology for better glycemic management- referral sent. Postconcussion syndrome 02/28/2021 Cervico-occipital neuralgia 11/07/2016 Chronic migraine without aur a, not intractable, without status migrainosus 02/15/2009 Polycystic ovaries 02/15/2009 Resolved Problems Problem Noted Date Diagnosed Date Resolved Date Acute non-recurrent pansinusitis 05/11/2024 08/10/2024 Assessment & Plan (05/11/2024 9:21 AM EST): Take antibiotics for 7 days. Use flonase [...] if no better or worse call for re- evaluation. Dysuria 12/13/2023 05/11/2024 Assessment & Plan (12/13/2023 11:12 AM EDT): History suggestive UTI and treat. Take levaquin for infection and use pyridium for symptoms. Send urine for culture. Increase water intake and cranberry juice. Use motrin or tylenol for discomfort. Intractable migraine without aura and without status migrainosus 07/02/2023 05/11/2024 Radiculopathy, cervical region 06/06/2023 07/15/2023 Dizziness 02/25/2023 04/19/2023 Lipoma of lower back 12/25/2022 024 Lump of skin of back 12/25/2022 024 Cervical paraspinal muscle spasm 12/17/2022 07/15/2023 Enthesopathy of hip region 12/11/2022 0 06/20/2023 Myalgia 12/11/2022 06/20/2023 Oth cond assoc w female janice magalys organs and menstrual cycle 12/11/2022 06/20/2023 Vaginal dryness 12/11/2022 06/20/2023 Adhesive capsulitis of left shoulder 08/29/2022 06/20/2023 Anxiety 08/29/2022 06/20/2023 Depression 08/29/2022 06/20/2023 Diabetes mellitus 08/29/2022 04/19/2023 Hypercholesterolemia 08/29/2022 024 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 024 Osteoarthritis 08/29/2022 06/20/2023 Family history of early CAD 07/06/2022 06/20/2023 Overview (12/11/2022): Last Assessment & Plan: Both parents with early CAD Mixed hyperlipidemia 07/06/2022 024 Overview (12/11/2022): Last Assessment & Plan: Lipid abnormalities are uncontrolled- will increase lipitor to 80 mg daily and repeat labs in 2 months Mixed hyperlipidemia due to type 2 diabetes mellitus 07/06/2022 06/20/2023 Overview (12/11/2022): Added automatically from request for surgery [id number] Last Assessment & Plan: Continue statin HAWTHORNE (dyspnea on exertion) 07/06/2022 Overview (12/11/2022): Last Assessment & Plan: stable SOB (shortness of breath) 04/02/2022 Cervical radiculopathy 02/28/202106/20 Degeneration of lumbosacral intervertebral disc 02/28/2021 06/20/2023 Pain in joint of left shoulder 09/14/2020 06/20/2023 Memory deficit 05/25/2020 06/20/2023 Chronic pain syndrome 06/27/20182022 Overview (12/11/2022): Last Assessment & Plan: F/u with PCP Medication overuse headache 06/27/2018 06/20/2023 Closed fracture of coronoid process of ulna 01/30/2016 04/19/2023 Fracture of ulna 01/30/2016 06/20/2023 Obesity affecting , antepartum ([facility]) 04/19/2009 06/20/2023 Migraine 02/15/2009 06/20/2023 complicated by tob acco use ([facility]) 02/15/2009 06/20/2023 Asthma-chronic obstructive p ulmonary disease overlap syndrome 04/24/2005 06/20/2023 Encounters Date Type Department Care Team Description 01/06/2025 Refill [facility] [address] [place] [address] [place] [id number] Cara Cowan, ADELIA Hot flashes; Vaginal irritation 12/31/2024 Results Follow-Up [facility] [address] [place] [phone] Josh Tracy MD ALL CBC WITH AUTO DIFF, ALL THYROXINE (T4) FREE, ALL LIPID PROFILE (FASTING), Additional followed-up results: 3 12/31/2024 Clinisync Result Encounter [facility] External Department Unsolicited Josh Tracy MD 12/29/2024 Telephone [facility] [address] [place] [id number] Josh Tracy MD jury duty 12/23/2024 8:00 AM EDT Clinical Support [facility] [address] [place] [phone] Garry Arce MD Trochanteric bursitis of both hips (Primary Dx); Radiculopathy, cervical region; Lumbar spondylosis; Cervical spondylosis; Other nerve root and plexus disorders; Nerve root and plexus disorder, unspecified 12/23/2024 Bamboo flowsheet [facility] [address] [place] [address] Garry Arce MD 12/23/2024 Travel 12/04/2024 Refill [facility] [address] [place] [address] Josh Tracy MD Type 2 diabetes mellitus with polyneuropathy (HCC); Generalized anxiety disorder 12/01/2024 Telephone [facility] [address] [place] [address] Kacey Lancaster, RT. R 11/10/2024 Refill [facility] [address] [place] [address] Garry Arce MD Lumbar spondylosis; Cervical spondylosis; Other nerve root and plexus disorders 11/09/2024 Refill [facility] [address] [place] [address] Garry Arce MD Radiculopathy, cervical region (Primary Dx) 11/09/2024 Refill [facility] [address] [place] [address] Josh Tracy MD ADD (attention deficit disorder) without hyperactivity; Dizziness and giddiness from Last 3 Months Immunizations Immunization Administration Dates Next Due Influenza, recombinant, quad rivalent, injectable, preservative free 03/04/2023 Moderna SARS-CoV-2 Vaccination 11/29/2020,2020 Pneumococcal Conjugate PCV 20 03/04/2023 SARS-COV-2 (COVID-19) vaccin e, mRNA, spike protein, LNP, PF, 50 mcg/0.5 mL 03/04/2023 Family History Medical History Relation Name Comments Colon cancer Father Heart attack Father Heart disease Father Depression Mother Diabetes Mother Heart disease Mother Lung cancer Mother Depression Sister Diabetes Sister Hyperlipidemia Sister Anxiety disorder Son 1 Depression Son 1 PTSD Son 1 Anxiety disorder Son 2 Relation Name Status Comments Father Mother Sister Son 1 Son 2 Social History Tobacco Use Types Packs/Day Years Used Date Smoking Tobacco: Former Cigarettes 1 23 0 07/28/1999 - 07/27/2022 Smokeless Tobacco: Never Tobacco Cessation:Counseling Given: Yes Alcohol Use Standard Drinks/Week Comments Never 0 [...] file Not on file Not on file Last Filed Vital Signs Vital Sign Reading Time Taken Comments Blood Pressure 130/62 12/23/2024 11:48 AM EDT Pulse 61 10/12/2024 8:25 AM EDT Temperature 36.6 C (97.8 F) 10/12/2024 8:25 AM EDT Respiratory Rate 22 10/12/2024 8:25 AM EDT Oxygen Saturation 90% 10/12/2024 8:25 AM EDT Inhaled Oxygen Concentration - - Weight 98 kg (216 lb) 12/23/2024 11:48 AM EDT Height 175.3 cm (5' 9 ) 12/23/2024 11:48 AM EDT Body Mass Index 31.9 12/23/2024 11:48 AM EDT Plan of Treatment Upcoming Encounters Date Type Department Care Team (Late st Contact Info) Description 02/17/2025 8:00 AM EDT Clinical Support [facility] [address] [place] [address] Garry Arce MD [address] [facility] [address] [facility] [address] 07/26/2025 10:00 AM EDT Office Visit DAYNE HYMAN [address] [address] Jacquelyn Cheek PA [address] [place], [place] [id number] Health Maintenance Due Date Last Done Comments Lung Cancer Screening Shared Decision Making 1975 Mammogram 08/29/2023 08/28/2022 Diabetes: Retinopathy Screening 03/05/2024 Diabetes: Hemoglobin A1C 12/21/2024 025, 02/12/2024, 06/22/2023 Influenza Vaccine (#1) 2025 03/04/2023 Medicare Annual Wellness (AWV) 08/10/2025 0 08/10/2024, 07/20/2024, 02/26/2023 Diabetes: Urine Protein Screening 12/31/2025 025, 06/22/2023 Pap Smear 07/21/2027 07/20/2024, 02/10, 07/11/2020 Cervical Cancer Screening 02/27/2028 HPV/Cotest 02/27/2028 Procedures Procedure Name Priority Date/Time Associated Diagnosis Comments MLR HEMOGLOBIN A1C Routine 12/31/2024 9: 54 AM EDT ALL THYROID STIM HORMONE Routine 12/31/2024 9:54 AM EDT ALL LIPID PROFILE (FASTING) Routine 12/31/2024 9:54 AM EDT ALL THYROXINE (T4) FREE Routine 12/31/2024 9:54 AM EDT METRO BILIRUBIN, DIRECT Routine 12/31/2024 9:54 AM EDT [facility] CMP (CMP) (FOR REMOTE [facility] USE) Routine 12/31/2024 9:54 AM EDT ALL CBC WITH AUTO DIFF Routine 12/31/2024 9:54 AM EDT [facility] MICROALB CREAT RATIO RANDOM Routine 12/31/2024 9:45 AM EDT PAP SMEAR Routine 07/20/2024 12:00 AM EDT BI MAMMOGRAM DIAGNOSTIC BILATERAL Routine 08/28/2022 Unspecified lump in unspecified breast from Last 3 Months or Most Recently Relevant to Health Maintenance Results * MLR HEMOGLOBIN A1C (12/31/2024 9:54 AM EDT) GLYCOHEMOGLOBIN A1C 6.1 4.5 - 6.2 % [facility] Comment: ADA RECOMMENDED LIMIT 4.0 - 6.0 ADA THERAPEUTIC TARGET < 7.0 ACTION SUGGESTED > 7.0 ESTIMATED AVERAGE GLUCOSE 128 mg/dL TB 12/31/2024 9:54 AM EDT 12/31/2024 10:10 AM EDT Narrative CLINISYNC - 12/31/2024 11:56 AM EDT us Josh Tracy MD CLINISYMAYI Final Result [facility] * METRO BILIRUBIN, DIRECT (12/31/2024 9:54 AM EDT) BILIRUBIN DIRECT 0.1 0.0 - 0.2 mg/dL TB 12/31/2024 9:54 AM EDT 12/31/2024 10:10 AM EDT Narrative CLINISYNC - 12/31/2024 11:17 AM EDT us Generic External Data Provider NHUNGISYNC F inal Result CLINISYNC [facility] * [facility] CMP (CMP) (FOR REMOTE [facility] USE) (12/31/2024 9:54 AM EDT) SODIUM 140 136 - 145 mmol/L [facility] POTASSIUM 4.2 3.5 - 5.1 mmol/L [facility] CHLORIDE 104 98 - 107 mmol/L [facility] CARBON DIOXIDE 27.3 21.0 - 32.0 mmol/L [facility] ANION GAP 12.9 [facility] GLUCOSE 98 74 - 106 mg/dL [facility] BLOOD UREA NITROGEN 15.0 7.0 - 18.0 mg/dL [facility] CREATININE 0.58 0.55 - 1.02 mg/dL TBH TBH EGFR-AF [place] >60 >=60 mL/min/1. 73m 2 TBH TBH EGFR-NON AF [place] >60 >=60 mL/min/1. 73m 2 [facility] BUN CREATININE RATIO 25.9 [facility] CALCIUM 9.7 8.5 - 10.1 mg/dL [facility] BILIRUBIN TOTAL 0.2 0.2 - 1.0 mg/dL [facility] ASPARTATE AMINO TRANSFERASE 24 15 - 37 U/L [facility] ALANINE AMINOTRANSFERASE 39 14 - 59 U/L [facility] ALKALINE PHOSPHATASE 61 46 - 116 U/L [facility] TOTAL PROTEIN 8.0 6.4 - 8.2 g/dL [facility] ALBUMIN LEVEL 4.1 3.4 - 5.0 g/dL [facility] GLOBULIN 3.9 g/dL [facility] ALBUMIN GLOBULIN RATIO 1.1 TBH 12/31/2024 9:54 AM EDT 12/31/2024 10:10 AM EDT Narrative CLINISYNC - 12/31/2024 11:17 AM EDT us Generic External Data Provider CL[facility]IS[facility] F inal Result [facility] * ALL THYROXINE (T4) FREE (12/31/2024 9:54 AM EDT) FREE T4 0.83 0.76 - 1.46 ng/dL TB 12/31/2024 9:54 AM EDT 12/31/2024 10:10 AM EDT Narrative CLINISYNC - 12/31/2024 11:21 AM EDT Josh Tracy MD CLINISYMAYI Final Result CLINISYNC TBH * ALL THYROID STIM HORMONE (12/31/2024 9:54 AM EDT) THYROID STIMULATING HORMONE 1.981 0.358 - 3.740 uIU/mL TB 12/31/2024 9:54 AM EDT 12/31/2024 10:10 AM EDT Narrative CLINISYNC - 12/31/2024 11:27 AM EDT Josh MEHTA Final Result Performing Organization Address [facility]/ZIP Co de Phone Number [facility] * (ABNORMAL) ALL LIPID PROFILE (FASTING) (12/31/2024 9:54 AM EDT) TRIGLYCERIDES 186(H) <=150 mg/dL TBH CHOLESTEROL 134 <=200 mg/dL TB HDL CHOLESTEROL 34(L) 40 - 60 mg/dL TB Comment: > or =60 mg/dl - LOW CARDIOVASCULAR RISK <40 mg/dl - HIGH CARDIOVASCULAR RISK LDL CHOLESTEROL CALCULATED 63.0 mg/dL TB Comment: <100 mg/dl OPTIMAL 100-129 mg/dl NEAR OR ABOVE OPTIMAL 130-159 mg/dl BORDERLINE HIGH 160-189 mg/dl HIGH >190 mg/dl VERY HIGH VLDL CHOLESTEROL 37.2 mg/dL TB CHOL HDL RATIO 3.9 TB Comment: 3.3 - 4.4 LOW RISK 4.4 - 7.1 AVERAGE RISK 7.1 - 11.0 MODERATE RISK >11.0 HIGH RISK 12/31/2024 9:54 AM EDT 12/31/2024 10:10 AM EDT Narrative CLINISYNC - 12/31/2024 11:27 AM EDT Josh MEHTA Final Result Performing Organization Address City/[facility]/ZIP Co de Phone Number [facility] * (ABNORMAL) ALL CBC WITH AUTO DIFF (12/31/2024 9:54 AM EDT) TB WBC 10.6 4.0 - 11.0 10 3/uL TB TB RBC 4.85 4.20 - 5.40 10 6/uL TBH TBH HGB 13.4 12.0 - 16.0 g/dL TBH TBH HCT 41.5 36.0 - 48.0 % TBH TBH MCV 85.6 81.0 - 99.0 fL TBH TBH MCH 27.6 26.7 - 34.0 pg TBH TBH MCHC 32.3 29.9 - 35.2 g/dL TBH TBH RDW 18.4(H) 11.0 - 15.0 % TBH TBH PLT 357 150 - 450 10 3/uL TBH TBH MPV 10.4 9.5 - 13.5 fL TBH NEUTROPHILS PERCENT AUTO 47.9 43.0 - 75.0 % TBH LYMPHOCYTES PERCENT AUTO 35.2 20.5 - 60.0 % TBH MONOCYTES PERCENT AUTO 11.0 1.7 - 12.0 % TBH TBH EO % 4.6 0.9 - 7.0 % TBH BASOPHILS PERCENT AUTO 1.1 0.2 - 2.0 % TBH IMMATURE GRANULOCYTES PCT AUTO 0.2 0.0 - 0.5 % TBH NEUTROPHILS ABSOLUTE AUTO 5.1 1.4 - 6.5 10 3/uL TBH LYMPHOCYTES ABSOLUTE AUTO 3.7 1.2 - 3.8 10 3/uL TBH MONOCYTES ABSOLUTE AUTO 1.2(H) 0.3 - 0.8 10 3/uL TBH TBH EO # 0.5 0.0 - 0.7 10 3/uL TBH BASOPHILS ABSOLUTE AUTO 0.1 0.0 - 0.1 10 3/uL TBH IMMATURE GRANULOCYTES ABS AUTO 0.02 0.00 - 0.03 10 3/uL TBH 12/31/2024 9:54 AM EDT 12/31/2024 10:10 AM EDT Narrative CLINISYNC - 12/31/2024 11:11 AM EDT us Josh Tracy MD CLINISYNC Final Result [facility] * (ABNORMAL) TBH MICROALB CREAT RATIO RANDOM (12/31/2024 9:45 AM EDT) MICROALBUMIN URINE RANDOM <1.3 <=30.0 mg/dL TBH CREATININE URINE RANDOM 38.29 20.00 - 300.00 mg/dL TBH MICROALBUM CREATININE RATIO UR 33.9(H) 0.0 - 29.9 mg/g TBH Comment: NO MICROALBUMINURIA 0-29 MG/G CLINICAL MICROALBUMINURIA 30-300 MG/G MACROALBUMINURIA >300 MG/G 12/31/2024 9:45 AM EDT 12/31/2024 10:10 AM EDT Narrative CLINISYNC - 12/31/2024 11:37 AM EDT Josh Tracy MD CLINISYNC Final Result Performing Organization Address City/[facility]/ZIP Co de Phone Number CLINISYWY TB * Pap Smear (07/20/2024 12:00 AM EDT) Swab Cervical swab / Unknown Dinorah Modi Noms [facility] Ob LAB CYTOLOGY ORDERABLES Final Result EXTERNAL LAB * Bilateral diagnostic mammogram (08/28/2022) Anatomical Region Laterality Modality Breast Bilateral Mammography Narrative 08/28/2022 12:00 AM EDT PERFORMED AT [facility] LOCATION:[address] Patient: KARRI De Oliveira Exam Date: 08/28/2022 : 1975 Gender:F Ordering : MARGARETTE CHEEK . Admission #: [id number] Family : Order #: [id number] CLICK HERE TO VIEW EXAM RADIOLOGY REPORT PROCEDURE: MAMMOGRAM DIAGNOSTIC 3D BILATERAL CAD 08/28/2022 13:43 ULTRASOUND BREAST RIGHT LIMITED 08/28/2022 14:30 COMPARISON: MG MAMM SCREEN YOUNG W CAD 07/19/2020. INDICATIONS: Family history of malignant neoplasm [...] colon cancer at age 54. LOCATION: [facility] BREAST COMPOSITION: Scattered areas fibroglandular density. FINDINGS: DIAGNOSTIC CATEGORY 2--BENIGN FINDING: RIGHT BREAST: A skin surface marker is present over the upper axillary tail which localizes patient''s palpable lump; no suspicious mammographic abnormality. Ultrasound [...] PALPABLE LUMP SHOULD BE BIOPSIED. Dictated by: Raad Ortiz M.D. on 08/28/2022 at 14:50 Approved by: Raad Ortiz M.D. on 08/28/2022 at 14:55 Procedure Note CONVERSION, GENERIC - 11/16/2022 PERFORMED AT [facility] LOCATION:[address] Patient: KARRI De Oliveira Exam Date: 08/28/2022 : 1975 Gender:F Ordering : MARGARETTE CHEEK . Admission #: [id number] Family : Order #: [id number] CLICK HERE TO VIEW EXAM RADIOLOGY REPORT PROCEDURE: MAMMOGRAM DIAGNOSTIC 3D BILATERAL CAD 08/28/2022 13:43 ULTRASOUND BREAST RIGHT LIMITED 08/28/2022 14:30 COMPARISON: MG MAMM SCREEN YOUNG W CAD 07/19/2020. INDICATIONS: Family history of malignant neoplasm of breast Calculator Name NCI Breast Cancer Risk Assessment Tool 5 Year Breast Cancer Risk 1.80% Lifetime Breast Cancer Risk 18.20% Personal Breast Cancer No Personal Ovarian Cancer No Treatments Radiation Family Cancers Aunt-maternal with breast cancer at age 42;Aunt-maternal with breast cancer at age 46; Aunt-maternal with breast cancer at age54; Mother with breast cancer at age 45; Mother with lung cancer at age 70; Uncle-maternal with lung cancer at age 55; Uncle-maternal with lung cancer at age 57; Father with colon cancer at age 54. LOCATION: [facility] BREAST COMPOSITION: Scattered areas fibroglandular density. FINDINGS: DIAGNOSTIC CATEGORY 2--BENIGN FINDING: RIGHT BREAST: A skin surface marker is present over the upper axillarytail which localizes patient''s palpable lump; no suspicious mammographic abnormality. Ultrasound evaluation demonstrates a small questionable lesion withinthe subcutaneous fat which appears to have a tract extending to the skin;possible obstructed sebaceous gland cyst. Clinical follow-up is recommended. Follow-up ultrasound could be performed to document clearing if needed. LEFT BREAST: No significant suspicious finding. No significant changehas occurred. RECOMMENDATIONS: ROUTINE MAMMOGRAM AND CLINICAL EVALUATION IN 12 MONTHS. PLEASE NOTE: A NORMAL MAMMOGRAM DOES NOT EXCLUDE THE POSSIBILITY OFBREAST CANCER. A CLINICALLY SUSPICIOUS PALPABLE LUMP SHOULD BE BIOPSIED. Dictated by: Raad Ortiz M.D. on 08/28/2022 at 14:50 Approved by: Raad Ortiz M.D. on 08/28/2022 at 14:55 Jacquelyn PFEIFFER IMG BI PROCEDURES Final Result from Last 3 Months or Most Recently Relevant to Health Maintenance Insurance [employer] MED[employer]ARE [employer]VANTAGE Care Teams Ambulance Assistant Relationship Specialty Start Date End Date Josh Tracy MD PCP - General Family Medicine 06/17/23 Josh Tracy MD [address] [place] [address] PCP - [employer] 02/10/23 Mary Kate Jackson, [facility] [address] [place] [address] Secondary Market Manager Behavioral Health 05/26/24
--- OUTSIDE RECORDS SUMMARY | 2025-01-27 13:24 | XMS_ITS | Encounter Summary ---
Author Organization [facility] Address [address] [place] [place] [address] Care Team Providers Care Fur Plucker Name Role Phone Josh Tracy MD Primary Care Provider [phone] Josh Tracy MD Primary Care Provider [phone] Josh Tracy MD Unavailable Mary Kate Jackson [facility] Unavailable [phone] Encounter Details Date Type Department Care Team (Late st Contact Info) Description 02/05/2023 [facility] [address]EN [address] [place] [id number] Garry Arce MD [address] [facility] [address] [place] [address] [id number] Social History Tobacco Use Types Packs/Day Years Used Date Smoking Tobacco: Former Cigarettes Smokeless Tobacco: Never Tobacco Cessation:Counseling Given: Not Answered Alcohol Use Standard Drinks/Week Comments Never 0 (1 standard drink = 0.6 oz pure alcohol) caffeine intake: maybe 1 coffee cups per day PHQ-2 Answer Date Recorded Patient Health Questionnaire-2 Score 6 01/08/2023 Comments Unknown Sex and Gender Information Value [...] [facility] [place] [facility] [address] [facility] [address] [place] [address] Garry Arce MD [address] [facility] [address] Chen [facility], [place] [id number] 07/26/2025 10:00 AM EDT Office Visit DAYNE Tam OBTESFAYE [address] [place] [address] Jacquelyn Huitron PA [address] [facility] [place] [address] documented as of this encounter Visit Diagnoses Not on filedocumented in this encounter Additional Health Concerns Assessment Noted Time PHQ-9 Depression Total Score: 19 023 2:07 PM EDT documented as of this encounter Care Teams Fur Plucker Relationship Specialty Start Date End Date Josh Tracy MD PCP - General Cardiology 10/03/22 06/16/23 Josh Tracy MD PCP - General Family Medicine 06/17/23 Josh Tracy MD [address] [place] [address] PCP - [employer] 02/10/23 Mary Kate Jackson [facility] [address] [facility] [address] [place] [address] Ham Trimmer Behavioral Health 05/26/24 documented as of this encounter
--- OUTSIDE RECORDS SUMMARY | 2025-01-27 13:24 | XMS_ITS | Encounter Summary ---
Author Organization [facility] Address [address] [place] [address] Care Team Providers Care Branch Lending Manager Name Role Phone Josh Tracy MD Primary Care Provider [phone] Reason for Referral * (Routine) - Pending Review Specialty Diagnoses / Procedures Referred By Mary t Referred To Contact Sleep Disorder Diagnoses Sleep apnea, unspecified type Procedures Home sleep test Farzad Costa MD [address] [place] [address] Phone: tel: fax: [facility] [address] [place] [address] Referral ID Status Reason Start Date Expiration Date V isits Requested Visits Authorized [id number] Pending Review 01/12/2025 01/12/2026 1 1 Encounter Details Date Type Department Care Team (Late st Contact Info) Description 01/12/2025 Orders Only [facility] [address] [place] [address] Deanne Jacobson MA Sleep apnea, unspecified type (Primary Dx) Social History Tobacco Use Types Packs/Day Years [...] Info) Description 04/06/2025 9:00 AM EST Follow-Up [facility] at [facility] [address] [place] [address] Madeline Guerin PAJorgeC [address] [facility] 2 [place] [address] 04/13/2025 10:30 AM EST Office Visit [facility] [address] [place] [address] Farzad Costa MD [address] [place] [address] Scheduled Orders Name Type Priority Associated Diagnoses Orde r Schedule Home sleep test Sleep Center Routine Sleep apnea, unspecified type Expected: 01/12/2025 (Approximate), Expires: 01/12/2026 documented as of this encounter Visit Diagnoses Diagnosis Sleep apnea, unspecified type- Primary documented in this encounter Care Teams Branch Lending Manager Relationship Specialty Start Date End Date Josh Tracy MD [address] [place] [address] PCP - General 03/01/23 documented as of this encounter
--- OUTSIDE RECORDS SUMMARY | 2025-01-27 13:24 | XMS_ITS | Encounter Summary ---
Author Organization [facility] Address [address] [place] [address] Care Team Providers Care Plum Packer Name Role Phone Josh Tracy MD Primary Care Provider [phone] Josh Tracy MD Unavailable Mary Kate Jackson [facility] Unavailable [phone] Encounter Details Date Type Department Care Team (Late st Contact Info) Description 07/29/2024 Orders Only [facility] [address] [employer] [address] [place] [address] Cara Cowan LPN [address] [place] [address] [place] [address] Social History Tobacco Use Types Packs/Day Years Used Date Smoking Tobacco: Former Cigarettes 1 23 0 07/28/1999 - 07/27/2022 Smokeless Tobacco: Never Alcohol Use Standard Drinks/Week Comments Never 0 (1 standard drink = 0.6 oz pure alcohol) caffeine intake: maybe 1 coffee or pop cups per day PHQ-2 Answer Date Recorded Patient Health Questionnaire-2 Score 4 03/11/2023 Comments No Sex and Gender Information Value [...] [facility] [place] [facility] [address] [facility] [address] [place] [address] Garry Arce MD [address] [facility] [address] [place], [place] [phone] 07/26/2025 10:00 AM EDT Office Visit [facility] [address] [place] [address] Jacquelyn Huitron PA [address] [facility] [place] [address] documented as of this encounter Procedures Procedure Name Priority Date/Time Associated Diagnosis Comments PAP SMEAR Routine 07/20/2024 12:00 AM EDT documented in this encounter Results * Pap Smear (07/20/2024 12:00 AM EDT) Swab Cervical swab / Unknown us Dinorah Nurse [facility] Ob LAB CYTOLOGY ORDERABLES Final Result EXTERNAL LAB documented in this encounter Visit Diagnoses Not on filedocumented in this encounter Additional Health Concerns Assessment Noted Time PHQ-9 Depression Total Score: 16 023 9:00 AM EDT documented as of this encounter Care Teams Plum Packer Relationship Specialty Start Date End Date Josh Tracy MD PCP - General Family Medicine 06/17/23 Josh Tracy MD [address] [place] [address] PCP - [employer] 02/10/23 Mary Kate Jackson, [facility] [address] [facility] [address] [place] [address] Police Officer Behavioral Health 05/26/24 documented as of this encounter
--- OUTSIDE RECORDS SUMMARY | 2025-01-27 13:25 | XMS_ITS | Encounter Summary ---
Author Organization [facility] Address [address] [place] [place] [address] Care Team Providers Care Electrolytic De Scaler Name Role Phone Josh Tracy MD Primary Care Provider [phone] Josh Tracy MD Primary Care Provider [phone] Josh Tracy MD Unavailable Mary Kate Jackson [facility] Unavailable [phone] Encounter Details Date Type Department Care Team (Late st Contact Info) Description 12/19/2022 Abstract DAYNE Tam [facility]BG[facility] [address] [facility] [address] Jacquelyn Huitron PA [address] [facility] [address] [place], [place] [phone] Social History Tobacco Use Types Packs/Day Years Used Date Smoking Tobacco: Former Cigarettes Smokeless Tobacco: Never Alcohol Use Standard Drinks/Week Comments Not Currently 0 (1 standard drink = 0.6 oz pure alcohol) caffeine intake: 1-2 cups per day. PHQ-2 Answer Date Recorded Patient Health Questionnaire-2 Score 6 11/27/2022 Comments Unknown Sex and Gender Information Value [...] [facility] [facility] [address] [place] [address] Garry Arce MD [address] [facility] [address] Chen [address] [place] [address] 07/26/2025 10:00 AM EDT Office Visit DAYNE HYMAN [address] [facility] [address] Jacquelyn Huitron PA [address] [facility] [place] [address] documented as of this encounter Visit Diagnoses Not on filedocumented in this encounter Additional Health Concerns Assessment Noted Time PHQ-9 Depression Total Score: 20 023 1:30 PM EDT documented as of this encounter Care Teams Electrolytic De Scaler Relationship Specialty Start Date End Date Josh Tracy MD PCP - General Cardiology 10/03/22 06/16/23 Josh Tracy MD PCP - General Family Medicine 06/17/23 Josh Tracy MD [address] [place] [address] PCP - [employer] 02/10/23 Mary Kate Jackson, [facility] [address] [facility] [address] [place] [address] College Football Coach Behavioral Health 05/26/24 documented as of this encounter
--- OUTSIDE RECORDS SUMMARY | 2025-01-27 13:25 | XMS_ITS | Encounter Summary ---
Author Organization [facility] Address [address] [place] [place] [address] Care Team Providers Care Drill Press Set Up Operator Name Role Phone Josh Tracy MD Primary Care Provider [phone] Josh Tracy MD Primary Care Provider [phone] Josh Tracy MD Unavailable Mary Kate Jackson [facility] Unavailable [phone] Reason for Visit * Reason Comments Med Refill Encounter Details Date Type Department Care Team (Late st Contact Info) Description 11/27/2022 Refill [facility] [place] [facility] [address] [facility] [address] [place] [address] Carolynn Jose, [facility] [address] [facility] [address] [place] [address] Generalized anxiety disorder Social History Tobacco Use [...] on file documented as of this encounter Functional Status * Over the past 2 weeks, how often have you been bothered by any of the following problems? Question Answer Date of Assessment Author Little interest or pleasure in doing things Nearly every day 11/27/2022 1:30 PM EDT Carlotta Villarreal i, LPN Feeling down, depressed, or hopeless Nearly every day 11/27/2022 1:30 PM EDT Leta Villarreal LP N Patient Health Questionnaire-2 Score 6 11/27/2022 1:30 PM EDT Leta Villarreal LPN * Question Answer Date of Assessment Author Trouble falling or staying asleep, or sleeping too much Nearly every day 11/27/2022 1:30 PM EDT Leta Villarreal LP N Feeling tired or having little energy Nearly every day 11/27/2022 1:30 PM EDT eLta Villarreal LP N Poor appetite or overeating Nearly every day 11/27/2022 1:30 PM EDT Leta Villarreal LP N Feeling bad about yourself - or that you are a failure or have let yourself or your family down Not at all 11/27/2022 1:30 PM EDT Leta Villarreal LP N Trouble concentrating on things, such as reading the newspaper or watching television Nearly every day 11/27/2022 1:30 PM EDT Leta Villarreal LP N Moving or speaking so slowly that other people could have noticed? Or the opposite - being so fidgety or restless that you have been moving around a lot more than usual. More than half the days 11/27/2022 1:30 PM EDT Leta Villarreal LPN Thoughts that you would be better off or hurting yourself in some way Not at all 11/27/2022 1:30 PM EDT Leta Villarreal L PN Patient Health Questionnaire-9 Score 20 11/27/2022 1:30 PM EDT Leta Villarreal LPN * If you checked off any problems on this questionnaire so far, Question Answer Date of Assessment Author How difficult have these problems made it for you to do your work, take care of things at home, or get along with other people? Extremely difficult 11/27/2022 1:30 PM EDT Leta Villarreal LP N documented as of this encounter Plan of Treatment Upcoming Encounters Date Type Department Care Team (Late st Contact Info) Description 02/17/2025 8:00 AM EDT Clinical Support [facility] [place] [facility] [address] [place] [phone] Garry Arce MD [address] [facility] [address] [place] [address] 07/26/2025 10:00 AM EDT Office Visit DAYNE HYMAN [address] [facility] [place] [phone] Jacquelyn Huitron PA [address] [facility] [place] [address] documented as of this encounter Visit Diagnoses Diagnosis Generalized anxiety disorder Generalized anxiety disorder documented in this encounter Additional Health Concerns Assessment Noted Time PHQ-9 Depression Total Score: 20 023 1:30 PM EDT documented as of this encounter Care Teams Drill Press Set Up Operator Relationship Specialty Start Date End Date Josh Tracy MD PCP - General Cardiology 10/03/22 06/16/23 Josh Tracy MD PCP - General Family Medicine 06/17/23 Josh Tracy MD [address] [place] [address] PCP - [employer] 02/10/23 Mary Kate Jackson, [facility] [address] [facility] [address] [place] [address] Cotton Baler Behavioral Health 05/26/24 documented as of this encounter
--- OUTSIDE RECORDS SUMMARY | 2025-01-27 13:51 | XMS_ITS | CCD ---
Author Organization [facility] Care Team Providers Care Foot Specialist Name Role Phone CHONG CARRERO Admitting Unavailable NADEREJOSH Suarez Primary Care Unavailable SELF, REFERRED Referring Unavailable GEE ORELLANA Attending Unavailable EBRAHEIM, BENJAMIN Admitting Unavailable EBRAHEIM, BENJAMIN Attending Unavailable LAZARAEREJOSH Suarez Referring Unavailable NADEREErick, JOSH Primary Care Unavailable EBRAHEIM, BENJAMIN Admitting Unavailable EBRAHEIM, BENJAMIN Attending Unavailable JOSH OCHOA Referring Unavailable NADEREJOSH Suarez Primary Care Unavailable EBRAHEIM, BENJAMIN Admitting Unavailable EBRAHEIM, BENJAMIN Attending Unavailable LAZARAEREJOSH Suarez Referring Unavailable NADEREJOSH Suarez Primary Care Unavailable Josh Ochoa Primary Care Provider Eliezer MARTINEZ, Deja Unavailable Chanel Workman Unavailable Vianney Collins Unavailable Josh Ochoa Primary Care Provider Eliezer MARTINEZ, Deja Unavailable [phone] MD Josh Ochoa Primary Care Provider MD Marie Elias Attending Provider [phone] Josh Ochoa Primary Care Provider [phone] Eliezer MARTINEZ, Deja Unavailable [phone] MD Josh Ochoa Primary Care Provider MD [...] Unavailable Naderer Josh WARD Primary Care Provider [phone] Josh Ochoa Primary Care Provider Josh Ochoa MD Unavailable Josh Ochoa MD Primary Care Provider [phone] MD Josh Ochoa Primary Care Provider MD José Imad Attending Provider Asaad, Imad Attending Unavailable Asaad, Imad Admitting Unavailable Nadereerick, Josh Primary Care Unavailable Jackson [facility] Unavailable Josh Ochoa MD Primary Care Provider JESSEE BILLY Attending Unavailable JESSEE BILLY Referring Unavailable NADEREErick, JOSH BURKETT Primary Care Unavailabl e KARETI, WHITE Referring Unavailable NADERER, JOSH BURKETT Primary Care Unavailabl e KARETI, JESSEE Attending Unavailable KARETI, WHITE Referring Unavailable NADERER, JOSH KWADWO Primary Care Unavailabl e NADERER, JOSH KWADWO Primary Care Unavailabl e KARETI, WHITE Attending Unavailable KARETI, WHITE Referring Unavailable JACKSON, DC L Attending Unavailable ARCE, OLU W Attending Unavailable JACQUELYN HUITRON Attending Unavailable NADERER, JOSH Attending Unavailable JACKSON, DC L Attending Unavailable JACKSON, DC L Attending Unavailable ARCE, OLU W Attending Unavailable NADERER, JOSH Attending Unavailable JACKSON, DC L Attending Unavailable ARCE, OLU W Attending Unavailable ARCE, OLU W Attending Unavailable JACKSON, DC L Attending Unavailable JACKSON, DC L Attending Unavailable JACKSON, DC L Attending Unavailable GRAZIANJack, SARA M Attending Unavailab le JACKSON, DC L Attending Unavailable GRAZIANI, SARA M Attending Unavailab le NADERER, JOSH Attending Unavailable JACKSON, DC L Attending Unavailable Russ, Elmo L Attending Unavailable SolanoElmo L Admitting Unavailable NADERER, JOSH A Primary Care Unavailable Elmo Solano Attending Unavailable NADERER JOSH A Primary Care Unavailable NADERER, JOSH A Primary Care Unavailable PHILIP MATHEWS Attending Unavailable PHILIP MATHEWS Admitting Unavailable JOSE FRANCISCO MARR Attending Unavailable JOSE FRANCISCO MARR Attending Unavailable JOSE FRANCISCO MARR Attending Unavailable JULIANA SHANE Attending Unavailable JOSE FRANCISCO MARR Attending Unavailable JOSE FRANCISCO MARR Attending Unavailable FARZAD DUMONT Attending Unavailable JULIANA SHANE Attending Unavailable FROIMSON, KINGA Referring Unavailable NADERER, JOSH [...] Onset Reaction(s) Facility (10 sources) Codeine; Translations: [codeine] Drug Allergy 04-24-20 05 [facility] Repository (4 sources) Erythromycin; Translations: [erythromycin] Drug Allergy 04-24-[address] [facility] Repository (9 sources) Penicillins; Translations: [penicillins] Drug allergy (disorder) 04-24-20 05 [facility] Repository (9 sources) Sulfonamides (Antibiotic); Translations: [SULFA (SULFONAMIDE ANTIBIOTICS)] Drug allergy (disorder) 04-24-20 05 [facility] Repository (20 sources) Ciprofloxacin; Translations: [ciprofloxacin] Drug Allergy 01-18-20 17 Unknown, [facility] (20 sources) Codeine Drug Allergy 04-24-20 05 Hives, Unknown [facility] (20 sources) Desonide; Translations: [Desonide] Drug Allergy 11-25-19 13 Other: See Comments [facility] Work Phone: (20 sources) Erythromycin Drug Allergy 04-24-20 05 Hives, Rash [facility] (20 sources) Latex; Translations: [latex] Propensity to adverse reactions 04-24-20 05 Itching, Anaphylaxis [facility] (20 sources) Penicillin V; Translations: [PENICILLIN V] Drug Allergy 04-24-20 05 [facility] (20 sources) Sulfonamides (Antibiotic) Propensity to adverse reactions 04-24-20 05 Hives, Unknown, Rash [facility] (3 sources) penicillAMINE Drug Allergy 01-01-20 22 shortness of breath [facility] (2 sources) Sulfamethoxazole / Trimethoprim Drug Allergy [facility] [employer] Other (2 sources) Sulfonamides (Antibiotic) Propensity to adverse reactions Unknown [facility] Other (5 sources) Adhesive Tape; Translations: [adhesive tape] Allergy to substance 04-24-20 19 Redness of Skin [facility] (20 sources) erythromycin base; Translations: [Erythromycin Base] Allergy to substance 11-25-19 13 [facility] (1 source) Desonide Drug Allergy 11-15-19 [facility] Repository (20 sources) Cod liver oil; Translations: [cod liver oil] Allergy to substance 09-07-19 [facility] (20 sources) Zinc Oxide; Translations: [zinc oxide] Drug Allergy 09-07-19 [facility] (20 sources) Desonide Allergy to substance 11-25-19 Unknown [facility] Work Phone: (20 sources) Penicillins Drug Allergy 03-04-20 18 Rash [facility] Healthcare (20 sources) Wound Dressing Adhesive Drug Allergy 04-24-20 Unknown [facility] Healthcare (2 sources) Sulfamethoxazole; Translations: [sulfamethoxazole] Drug Allergy 01-01-20 [facility] (2 sources) Trimethoprim; Translations: [trimethoprim] Drug Allergy 01-01-20 [facility] (1 source) Codeine Drug Allergy 09-07-19 [facility] Repository (1 source) Desonide Drug Allergy 01-01-20 [facility] Repository (1 source) penicillAMINE Drug Allergy 01-01-20 [facility] Repository (1 source) Penicillins Drug allergy (disorder) 09-07-19 [facility] Repository (1 source) Sulfonamides (Antibiotic) Drug allergy (disorder) 09-07-19 [facility] Repository (11 sources) Prochlorperazine; Translations: [PROCHLORPERAZINE] Drug Allergy 04-13-20 Intolerance, GI intolerance [facility] (1 source) sulfa drug; Translations: [sulfa drug] Propensity to adverse reactions to drug (disorder) [facility] Repository (1 source) Adhesive agent; Translations: [ADHESIVE] Propensity to adverse reactions to drug (disorder) 04-24-20 [facility] Repository Medications Current Medications Medication Drug Class(es) [...] by mo uth once daily as needed ikjeuefxfm-RPAX-nlgnukpx 50-300-40 MG CAPS per capsule Take 1 capsule by mouth daily as needed 08/07/2024 Active Start: 07-27-2024 End: 08-26-2024 take 1 capsule by mouth every eight hours for headache fvzlebgngw-ecmuvcxcgvbsu-ipuhbhpx (Fioricet) 50-300-40 MG capsule Indications: Intractable chronic migraine without aura and without status migrainosus (CMS/HCC) Take 1 capsule by mouth every 8 (eight) hours if needed for headaches 84 capsule 07/27/2024 08/26/2024 Active Start: 05-13-2024 take 1 capsule by mo ut every twenty-four hours as needed dcroispayd-sygfewxkjfgnq-cxvlhsww (Fioricet) 50-300-40 MG capsule Take 1 capsule by mouth Daily as needed 05/13/2024 Active Start: 11-20-2023 End: 02-18-2024 take 1 tablet by mouth every six hours Rtqpovcbtt-Geoirmyhevpbl-Tnwd Active 1 TAB PO Every 6 hours January 08, 2024 12:00am Start: 06-06-2023 End: 07-06-2023 take 1 capsule by mouth every eight hours for headache ndbymxuzed-lelvszwnkcedx-edoalwln (Fioricet) 50-300-40 MG capsule Indications: Migraine without [...] Active Start: 08-29-2021 [facility] six hours as needed acetaminophen 325 [...] 60 mg by mouth Daily 30 tablet 11 09/29/2024 10/29/2024 Active Start: 09-29-2024 End: 10-29-2024 take 1 tablet by mouth once daily Atogepant (Qulipta) 60 MG tablet Indications: Intractable chronic migraine without aura and without status migrainosus (CMS/HCC) Take 60 mg by mouth Daily 30 tablet 11 09/29/2024 10/29/2024 Active Start: 04-01-2023 End: 03-31-2024 [...] 30 tablet 11 04/01/2023 03/31/2024 Active atomoxetine 80 mg oral capsule (20 sources) Norepinephrine Reuptake Inhibitor Start: 08-20-2023 End: 03-31-2024 take 1 capsule by mouth once daily atomoxetine (Strattera) 80 MG capsule Indications: ADD (attention deficit disorder) without hyperactivity TAKE 1 CAPSULE BY MOUTH DAILY 30 capsule 11/09/2024 Active Start: 06-20-2023 take 1 capsule by mo uth in the morning atomoxetine (Strattera) 40 MG [...] 1 tablet by nicky th once daily at bedtime Atorvastatin (Lipitor) 40 [...] Discontinued take 1 tablet by nicky th once [...] (20 sources) Acetylcholine Release Inhibitor Start: 03-11-2024 onabotulinum toxin type A 200 Units injection (BOTOX) Start: 03-11-2024 200 Units, INT RAMUSCULAR, EVERY 12 WEEKS, First dose on Sat03/11/24 at 0800, Until Discontinued, This record documents the total dose provided to patient. See progress note for specific locations and amounts administered. Start: 01-02-2023 End: 01-02-2023 onabotulinum toxin type [...] 10/12/2019 Active take 2 tablets by mo uth once daily Cholecalciferol 1.25 MG (79744 UT) TABS Take 2 tablets by mouth nightly Active Comment on above: Take 1 tablet by nicky th once daily. clopidogrel 75 mg oral tablet (20 sources) P2Y12 Platelet Inhibitor Start: 08-27-2022 End: 11-19-2023 clopidogrel (Plavix) 75 MG tablet 07/14/2024 Active Continuous Blood Gluc Sensor (Dexcom G6 Sensor) misc (5 sources) Start: 04-19-2023 Continuous Blood Gluc Sensor (Dexcom G6 Sensor) misc Indications: Type 2 diabetes mellitus with hyperglycemia, with long-term current use of insulin ([facility]) Use as directed 2 each 04/19/2023 Active Continuous Blood Gluc Transmit (Dexcom G6 transmitter) misc (5 sources) Start: 05-15-2023 Continuous Blood Gluc Transmit (Dexcom G6 transmitter) misc USE DIRECTED FOR 90 DAYS 0 05/15/2023 Active cyclobenzaprine hydrochloride 5 mg oral tablet (20 sources) Muscle Relaxant Start: 08-27-2022 cyclobenzaprine (FLEXERIL) 5 mg tablet 10/03/2022 Active take 1 tablet by nicky th three times daily as needed cyclobenzaprine (Flexeril) 10 MG tablet Take 10 mg by mouth 3 (three) times a day as needed. Active dapagliflozin 10 mg oral tablet (20 sources) Sodium-Glucose Cotransporter 2 Inhibitor Start: 08-27-2022 End: 12-08-2024 FARXIGA 10 mg tablet 10/05/2022 Active DHEA 1MG PER ML (2 sources) [...] acid 180 mg oral capsule (4 sources) [place]-3 1000 MG CAPS Take 1 capsule by [...] 10-30-2024 take 1 tablet by mouth once daily, then take 1 tablet by mouth two times weekly estradiol (ESTRACE) 1 mg tablet TAKE 1 TABLET BY MOUTH DAILY FOR 14 DAYS then TAKE 1 TABLET BY MOUTH twice a week 08/07/2022 Active Comment on above: TAKE 1 [...] Receptor alpha Agonist Start: 3 End: 5 Fenofibrate (LOFIBRA) 160 mg tablet 10/05/2022 Active furosemide 40 mg oral tablet (20 sources) Loop Diuretic Start: 2 take 1 tablet by mouth once daily furosemide (LASIX) 40 mg tablet Take 40 mg by mouth once daily. 05/14/2021 Active Comment on above: Take 40 mg by mouth once daily. gentamicin 3 mg/ml ophthalmic solution (10 sources) Start: 5 take 2 drop(s) into the eye(s) every four hours gentamicin (GARAMYCIN) 0.3 % ophthalmic solution instill 2 (TWO) DROPS IN BOTH EYES EVERY 4 HOURS FOR 7 DAYS 08/27/2024 Active Start: 08-06-2024 End: 08-13-2024 take 2 drop(s) into the eye(s) every four hours gentamicin (Garamycin) 0.3 % ophthalmic solution Indications: [place] eye disease, unspecified laterality Administer 2 drops into both eyes every 4 (four) hours for 7 days 15 mL 08/06/2024 08/13/2024 Active glipiZIDE 10 mg oral tablet (20 sources) Sulfonylurea Start: 10-05-2022 glipiZIDE (GLUCOTROL) 10 mg tablet 10/05/2022 Active hydroCHLOROthiazide 12.5 mg / lisinopril 10 mg oral tablet (20 sources) Thiazide Diuretic, Angiotensin Converting Enzyme Inhibitor Start: 04-27-2019 take 1 tablet by mouth once daily Lisinopril-Jemison chlorothiazide Active 1 TAB PO Daily April 27, [...] (Omnipod 5 G6 Pod, Gen 5,) misc 04/13/2023 05/11/2024 Discontinued Start: 04-13-2023 Insulin Dispos able Pump (Omnipod 5 G6 Pod, Gen 5,) misc 04/13/2023 Active Start: 04-13-2023 Insulin Dispos able [...] mg/ml topical lotion (20 sources) Start: 12-03-19 ammonium lactate (LAC-HYDRIN) 12 % lotion ammonium [...] 100 mg (5 mL), Intradermal, Once, On Sondra 10/22/24 at 0845, For 1 dose Start: 09-17-2024 End: 09-17-2024 lidocaine (Xylocaine) 2 % in jection 40 mg Start: 09-17-2024 End: 09-17-2024 40 mg (2 mL), Intradermal, O nce, On Sondra 09/17/24 at 0815, For 1 dose, Patient [...] Take 1 tablet by mouth once daily. 10/09/2019 Active Start: 04-27-2019 End: 01-08-2024 take 400 mg by mouth twice daily Magnesium Oxide Discontinued 400 MG PO Twice daily April 27, 2019 1:00am January 08, 2024 10:21am Comment on above: Take 1 tablet by nicky th once daily. Manganese Sulfate POWD (4 sources) Manganese Sulfat e POWD Take by mouth Active meclizine hydrochloride 25 mg oral tablet (20 sources) Antiemetic Start: 9 End: 3 take 1 tablet by mouth four times daily as needed meclizine (Antivert) 25 MG tablet Indications: Dizziness and giddiness TAKE 1 TABLET BY MOUTH FOUR TIMES DAILY NEEDED 120 tablet 5 11/09/2024 Active Start: 04-27-2019 take 25 mg by [...] mg oral tablet (20 sources) Biguanide Start: 9 take 1 tablet by mouth twice daily metFORMIN (Glucophage) 1000 MG tablet Indications: Type 2 diabetes mellitus with hyperglycemia (HCC) TAKE 1 TABLET BY MOUTH TWICE DAILY 60 tablet 5 02/25/2024 Active take 1 tablet by nicky th [...] 04-27-2019 take 1 tablet by nicky th twice daily Metoclopramide Hcl (Reglan) 10 mg Tablet Active 10 MG PO Twice daily April 27, 2019 1:00am Start: 04-27-2019 take 1 tablet by nicky th every six hours Metoclopramide Hcl (Reglan) 10 [...] Active MOUNJARO 2.5 mg/0.5 mL pen injector (7 sources) Start: 04-06-2024 MOUNJARO 2.5 m g/0.5 [...] 5 MG/0.5ML solution auto-injector (20 sources) Start: 025 inject 5 mg by subcutaneous injection every [...] 100MG tablet therapy pack (18 sources) Start: End: Nirmatrelvir&Ritonavi r 300/100 (Paxlovid, 300/100,) 20 x [...] sources) Polyene Antifungal Start: 07-31-2022 nystatin (M YCOSTATIN) powder APPLY 1 application TO THE AFFECTED AREA(S) THREE TIMES DAILY 07/31/2022 Active End: 10-10-2022 take 5 mL [...] Start: 06-02-2024 take 1 capsule by mo uth three times daily at bedtime pregabalin (Lyrica) [...] 1:00am take 1 capsule by mo uth every [...] Start: 04-08-2024 take 25 mg rectal ro [place] every eight hours as needed prochlorperazine (COMPAZINE) [...] 04-27-2019 take 1 tablet by nicky th every six hours as needed prochlorperazine (Compazine) [...] 60 mg tablet (20 sources) Start: 12-14-19 22 QULIPTA 60 mg tablet 12/13/2021 Active Start: 12-13-2021 QULIPTA 60 mg tablet Qulipta 60 MG tablet (2 sources) Start: 12-08-2024 take 1 tablet by mouth [...] migraine every other day PRN) 16 tablet 07/02/2023 Active rosuvastatin calcium 20 mg oral tablet (20 sources) HMG-CoA Reductase Inhibitor Start: 01-08-2024 take 20 mg by mouth once daily Rosuvastatin Active 20 MG PO Daily January 08, 2024 12:00am Start: 07-29-2023 End: 02-06-2025 rosuvastatin (CRESTOR) 40 mg tablet Take 40 mg by mouth. 07/29/2023 02/06/2025 Active simvastatin 40 mg oral tablet (2 [...] above: Take 1 capsule by mo uth once daily. tiZANidine 4 mg oral tablet (20 sources) Central alpha-2 Adrenergic Agonist Start: End: take 2 tablets by mouth every eight [...] Start: 04-28-2024 take 2 tablets by mo uth every eight hours as needed for muscle [...] 12:00am take 1 tablet by nicky th every six hours as needed tiZANidine (ZANAFLEX) [...] daily. Active take 1 capsule by mo uth every twenty-four hours Effexor XR 75 MG 1 capsule with food Orally Once a day total of 225 Active Comment on above: Take 150 mg by mouth once daily. Venlafaxine Active 1 50 MG Oral Daily April 27, 2019 6:43am Take 225 mg by mouth once daily. warfarin sodium 5 mg oral tablet (2 sources) Vitamin K Antagonist Start: 12-08-2024 take 1 tablet by mouth once daily warfarin (Coumadin) 5 MG tablet TAKE 1 TABLET BY MOUTH DAILY DIRECTED per Coumad[facility] clinic 12/08/2024 Active water 1000 mg/ml irrigation solution (2 sources) Start: 12-17-2024 Water For Irrigation, Sterile (sterile [...] 1 TABLET BY MOUTH AT BEDTIME amylase 061487 unt / lipase 09360 unt / protease [id number] unt delayed release oral capsule (20 sources) Start: End: take 1 capsule by mouth three times daily ZENPEP 40,000-126,000- 168,000 unit cpDR Take 1 capsule by mouth three times daily. 0 09/18/2019 07/17/2022 Discontinued End: 05-11-2024 take 1 capsule by mouth in the morning, then take 1 capsule by mouth in the evening, then take 1 capsule by mouth at bedtime pancrelipase, Loc-Onji-Laaf, (Zenpep) 37269-145929 units capsule delayed-release particles capsule Take 1 capsule by mouth in the morning and 1 capsule in the evening and 1 capsule before bedtime. 05/11/2024 Discontinued Comment on above: Take 1 capsule by mo [facility] three times daily. Zenpep 40,000 unit-1 [...] pump car t,auto,BT-cntr crtg Inject subcutaneously. Dr.Boujban Patel Promediccollette 0 Active Comment on above: Inject subcutaneousl y. Dr.Boujban Jorge Cardona lamoTRIgine 200 mg oral tablet (20 sources) Mood Stabilizer, Anti-epileptic Agent Start: 08-28-19 End: 01-08-20 take 200 mg by mouth once daily Lamotrigine Discontinued 200 MG PO Daily August 27, 2022 12:00am January 08, 2024 10:21am Start: 11-21-2020 End: 04-08-2024 take 1 tablet by mouth twice daily lamoTRIgine (LAMICTAL) 150 mg tablet Take 150 mg by mouth twice daily. 11/21/2020 04/08/2024 Discontinued Comment on above: Take 150 mg by mouth twice daily. Tetcyn-Anzdnafk-Nz ylase (Zenpep) 40,000-126,000- 168,000 unit Capsule,Delayed Release(Dr/Ec) (3 sources) Start: 08-27-2022 End: 01-08-2024 take 32726-929049 capsules by mouth three times daily Lsehpr-Nhhllpil-Wfaoyl e (Zenpep) 40,000-126,000- 168,000 unit Capsule,Delayed Release(Dr/Ec) Discontinued 1 CAP PO Three times daily August 27, 2022 12:00am January 08, 2024 10:21am with meals Start: 08-27-2022 take 14466-984785 ca psules by mouth three times daily Dxjzmz-Cyeqtgor-Emgvvbe (Zenpep) 40,000-126,000- 168,000 unit Capsule,Delayed Release(Dr/Ec) Active [...] anxiety disorder; Translations: [Generalized anxiety disorder] Onset: 04-19-2023 Resolved: 06-20-2023 09-21-2022 Chronic Asthma (20 sources) [...] sources) Long-term current use of insulin; Translations: [shelter (current) use of insulin] 06-20-2023 Episodic Other [...] 02-28-2021 Resolved: 06-20-2023 12-11-2022 Chronic Substance-related disorders (20 sources) Nicotine dependence, unspecified, [...] 06-20-2023 12-11-2022 Chronic Other aftercare (3 sources) shelter (current) use of insulin; Translations: [[facility] CURRENT USE OF INSULIN] Onset: 04-02-2022 Episodic Other aftercare (3 sources) shelter (current) use of oral hypoglycemic drugs; Translations: [MACHINE STRAW HAT PRESSER USE ORAL HYPOGLYCEMIC DX] Onset: 04-02-2022 Episodic Other aftercare (1 source) Other watermaster (current) drug therapy; Translations: [OTH MACHINE STRAW HAT PRESSER CURRENT DRUG THERAPY] Onset: 04-02-2022 Episodic Other aftercare (20 sources) Long-term current use of drug therapy; Translations: [Other detention (current) drug therapy] Onset: 08-10-2024 08-10-2024 Episodic [...] right hip] Onset: 12-17-2022 12-17-2022 Episodic Other connective tissue disease (20 sources) [...] neuralgia] Onset: 11-07-2016 Resolved: 07-15-2023 11-07-2016 Episodic Unclassified (1 source) COUGH, UNSPECIFIED; Translations: [COUGH, UNSPECIFIED] Onset: 11-15-2021 Unclassified (1 source) Obesity, class 1; Translations: [Obesity, class 1] Onset: 09-22-2024 Results Test Name Value Interpretation Reference Range Facility [facility] 01-18-[address] [facility] Telephone ([facility]) JACQUELYN ZENG ([id number]) 1975 F Date Time Provider Department 01/18/25 KINGA MENDES [facility] During your visit today, we recorded the following information about you: Anne-Marie Mensah 01/18/2025 4:46 PM Signed Received completed form in person Uploaded form into patients scanned docs and faxed to [facility] Pre-Access -[phone] Allergies As of Date: 01/18/2025 Noted Allergy Reaction DESONIDE 11/24/2012 14 - [...] ANTIBIOTICS) 04/24/2005 4 - Hives Date Reviewed: 12/04/2024 Reviewed by: 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 APRN.[employer]NAGER - Fully Assessed Reason for Visit: Forms [913] Cmt: c9 Prescriptions as of 01/18/2025 - dihydroergotamine (DHE) 1 mg/mL injection Inject 1 mg subcutaneously every 8 hours. As needed for migraine. No more than 2 injections/day or treating 2 injections per day. - MOUNJARO 2.5 mg/0.5 mL pen injector Inject 5 mg subcutaneously. - prochlorperazine (COMPAZINE) 25 mg [...] mouth every 6 hours as needed. - clopidogrel (PLAVIX) 75 mg tablet - [...] DAILY - QULIPTA 60 mg tablet - furosemide (LASIX) 40 mg tablet Take [...] (XANAX) 0.5 mg tablet 1 mg. - EXEL SYRINGE 3 ML 25 X 5/8 use with [facility] Facility-Administere d Medications as of 01/18/2025 - onabotulinum toxin type A 200 Units injection (BOTOX) Problem List As Of Date 01/18/2025 Noted Resolved Migraine without aura, without mention of intra*04/24/2005 08/01/2016 CHRON OBST ASTHMA UNSPECIFIED [J44.89] 04/24/2005 Bilateral occipital neuralgia [M54.81] 11/07/2016 Status migrainosus [G43.901] 04/08/2024 Encounter Status:Closed by ANNE-MARIE MENSAH on 01/18/25 [facility] Office Visiton 01-12-2025 Follow-up visit [id number] Jacquelyn Zeng 1975 F Date Provider Department Center 01/12/2025 [id number] DUMONT MARIA LUZ [place] Family History Problem Relation Age of Onset Coronary artery disease Mother Heart attack Mother Cancer Mother Heart attack Father 54 Family Status - Relation Status Age at Mother Father Level of Service:49930 MS OFFICE/OUTPATIENT NEW MODERATE MDM 45 MINUTES [facility] Orders Onlyon 01-12-2025 Orders Only [id number] Jacquelyn Zeng 1975 F Date Provider Department Center 01/12/2025 Terrell-AVIS MOREL CARD Yonatan Hos Family History Problem Relation Age of Onset Coronary artery disease Mother Heart attack Mother Cancer Mother Heart attack Father 54 Family Status - Relation Status Age at Mother Father [facility] 36on 01-08-2025 35 Regarding lab results from 12/31/2024: MD Chelo Thomas MA Her triglycerides are much better and cholesterol is in good range. Same treatment and follow up. Phone call to patient, advised patient of lab results per Dr. Clark request. Patient verbalized understanding and agreed with plan of care. [facility] 36on 01-07-2025 35 Regarding lab results from 12/31/2024: MD Chelo Thomas MA Her triglycerides are much better and cholesterol is in good range. Same treatment and follow up. [facility] Follow-Upon 01-04-2025 Follow-Up [id number] Jacquelyn Zeng 1975 Provider Department Center 01/04/2025 JOSE FRANCISCO PHAM [facility] ENDOCR [facility] Family History Problem Relation Age of Onset Coronary artery disease Mother Heart attack Mother Cancer Mother Heart attack Father 54 Family Status - Relation Status Age at Mother Father Level of Service:17758 MS OFFICE/OUTPATIENT ESTABLISHED LOW MDM 20 MIN [facility] ALL CBC WITH AUTO DIFFon BASOPHILS ABSOLUTE AUTO 0.1 N [facility] Basophils/100 WBC (Bld) 1.1 % 0.2 - 2.0 % [facility] Eosinophils/100 WBC (Bld) 4.6 % 0.9 - 7.0 % [facility] Erythrocyte distribution width (RBC) [Ratio] 18.4 % High 11.0 - 15.0 % [facility] Hematocrit (Bld) [Volume fraction] 41.5 % 36.0 - 48.0 % [facility] Hemoglobin (Bld) [Mass/Vol] 13.4 g/dL 12.0 - 16.0 g/dL [facility] IMMATURE GRANULOCYTES ABS AUTO 0.02 [facility] Immature granulocytes/100 WBC (Bld) 0.2 % 0.0 - 0.5 % [facility] Interpretation and review of laboratory results Abnormal [facility] LYMPHOCYTES ABSOLUTE AUTO 3.7 [facility] Lymphocytes/100 WBC (Bld) 35.2 % 20.5 - 60.0 % [facility] MCH (RBC) [Entitic mass] 27.6 pg 26.7 - 34.0 pg [facility] MCHC (RBC) [Mass/Vol] 32.3 g/dL 29.9 - 35.2 g/dL [facility] MCV (RBC) [Entitic vol] 85.6 fL 81.0 - 99.0 fL [facility] MONOCYTES ABSOLUTE AUTO 1.[address] [facility] Monocytes/100 WBC (Bld) 11 % 1.7 - 12.0 % [facility] NEUTROPHILS ABSOLUTE AUTO 5.1 [facility] Neutrophils/100 WBC (Bld) 47.9 % 43.0 - 75.0 % [facility] Platelet mean volume (Bld) [Entitic vol] 10.4 fL 9.5 - 13.5 fL [facility] TBH EO # 0.5 [facility]H PLT 357 [facility] RBC 4.85 [facility] WBC 10.6 [facility] [employer] [facility] Employee Health Noteon 12-31 Employee Health Note [id number] 72#1.00OTGTIFF [facility] Employee Health Noteon 12-24 Employee Health Note [id number] 0 [id number] #1.[facility] Employee Health Note [id number] #1.[facility] Employee Health Noteon 12-10 Employee Health Note [id number] 57#1.[facility] CNOVon 12-04-2024 [facility] Office Visit (NHDBEC) KARRIJACQUELYN Stafford ([id number]) 1975 F Date Time Provider Department 12/04/24 9:00 AM KINGA MENDES [facility] During your visit today, we recorded the following information about you: Temperature Pulse Respiration Blood pressure 97.5 degrees 98/minute 21/minute 116/71 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 APRN.[employer] SALES COUNTER MANAGER 12/04/2024 9:16 AM Signed [facility] Follow-up [...] for migraine Informed Consent Consent Obtained: Written Adrian Protocol A moment to CARE was completed [...] collected. Written Consent Obtained: Written LOT #: [id number] Expiration Date: Month: 10 Year: 2026 Injection Sites Left (Units) Left (Sites) Right (Units) Right (Sites) TOTAL (Units) Jail Manager 5 1 5 1 10 Procerus Units: [...] wasted: 0 (more content not included)... Normal [facility] Refillon 12-04-2024 Refill [id number] Jacquelyn Zeng 1975 F Date Provider Department Center 12/04/2024 JOSE FRANCISCO PHAM [facility] ENDOCR [facility] Family History Problem Relation Age of Onset Coronary artery disease Mother Heart attack Mother Cancer Mother Heart attack Father 54 Family Status - Relation Status Age at Mother Father Reason for Visit and Comments: Med Refill [[id number]] Normal [facility] Coding Summaryon 11-11-2024 Coding Summary HTMLBase 64 RgmsvmigRZw9yNd+PGhl YWQ+MD2PDNQsQ58gfFYw dX6dE5WNIBqVWjnrTEBY TDzXKxWdylYnFF1ngDFc ZXJu IC8+AO0wOSHsNraejKSp q5J6uRR6T61ekx4hFMjl cBD4QFNlCfKphoiyw1lt aCm1TTgzUevqUqQx UFLymE66DRU3oW38Dt49 hTXxbHTzt7ljwSq9IaAx JEYwNUI7yJgtIHpax1Py HXHeZ78bjDUrc2W8 IGNvbGxhcHNlOyBlbXB0 xQ4fTTwoslgrj4csowut Jgi4ki53qCHoy3N0eBO3 G9BithV0FLPmnMCr XzhypQZPvE4angpnm3re iszuOqLhDSXmDGs3UAf8 MKXeiXqrDqWjIM12HIY9 MTHyteGgE1ZkSYVx pQmiOhL6v7J2Bg3ZG6TD IuzgO2FHGORDCOjvjDC+ QL25cl02N0NxUrgrAkj1 NZUgCGV0qEW8cY6t JYElVUlpf7U4fSK1C2Yl rtGvll4iz9xuDHLzLZpb P53slEWsg7G6JYNdhSY3 DYGesClwLuHiyA22 Oyc+ILGbuFyyx8FyZrlp o7elm9jpkNg4OnpqSFMo tgOeiBxiWPG6p7WiUs0i RQJjgEN2uVT6lG8m EtHaXdG5AKfkP893EjRc lDGmLdrbF13pE4FtlGN+ GFCrUck4BDQpgJeoVU8f S9SnTEKjgohsrCWw aKatQX3dVFIvvxfyEZDk qY3vKUFaP8u4TrXhHsD9 RVlsF5CmYWXkgoezYx89 tC0qWjIiHwX8DQpa L0WyuaI7PLEguGOtAUgm CRQ9X44if0F0XMPvVSRo FAN3sOK1kH9sbAhwcxoj bGVmdDsgdmVydGlj INvhOEcgS159URJldJwq PkNvZGluZyBEYXRlOiAg MDcvMDIvMjAyNTwvdGQ+ HWYqLMP2bBsaLUKw bFOuBCvvOl3izGmdxRuq NT6aEBCbsjdzWLLurM9k VXAbkZWqyBtiVG9sRKLt okewe694HjLrJZT9 IMRwjKTiS8RbbI5zIyUq EFNqHDMqH1GwmBEgJHjw Y842IJvwIqA8JQQkjeTj F2RtZZSjjZiwYiY6 w9L7Av0Dw6ZqlodgJ9Uq sLJoJtDfTrxcDRo9I2Gy PjwvdHI+GW35LMMdIO01 EVy5EPE8bRtuGYry AGYfS0KjoI9bYcHyTQRc ZGRkOyc+PHRhYmxlIHdp ZHRoPScxMDAlJyBzdHls OG8rYn2yJLBlXGEm tSdcxOEoLfMdb7jvSIZn XHgfGU0ihMstD2RovEE9 FYYkq3w4Vf02U20fN3Ft dXA+PSYsqMG9uZX5 bQ2dCtQbBmB6XWxaG123 UzKdsBMqJjfgd4xny3bd vIi9TlL3JYVxerVguPad JPQ9z3UkBo89T54d IHdpZHRoPSIxNSUiIHZh mDoyol8nlB7mHb1+PGNv uCF3oUM1nE3gSfJmUvB0 DAscL813SnOikIQv Ybkva9cwv3nkuNp8CoNq WGEiubCcwHvaWNL6s9Sz Lv68K0RvgRbse0XoMhk1 yp34gADpd4N6dFX7 S5XyQFYumqcdxMUpcJvf CS8hMVGqnxwnQEVcrE5u EARpD4y7JoEyAeK0ZPms G7LeziT7HLVljWXf CFCdtCSLxD8irgaov0qy eciyZmMqQSFeMAr7TGp7 PFTifFrxNjBwSKA9BvF1 ZXM3lYBxrI3piDun mkcrjY2wQri+RNH7mHJm mWWPJF1jYafkeNR+PHRk HWA9jHvgGMuxIAOntT5h ONHuI9h4JuEgGuB9 COwbM4VeoqK0AIXswNEb NQWtnMBMzQ9ufohrc6je oblpQhGiFXFeBZc9DNb9 LWFsaWduOiBsZWZ0 LzE3VOS2iZTxbO9jmYhn opsapD4eNyv+QmlydGgg WDD7IZb1F1JsYfl6JLGg eNpsYC3tkWHnPGgq Ae3xnUfcfIjtXL2lRPIc yubbj014MgMsc4ujUDOa iKDnGBvpXPV7J96qn2W5 COScURDuRUE7dLJ8 kL1grEstejmltHSdzMmr vqAkmPkhSRjjZMmuA990 JLFkvSmgXzIqZKx6B1Dr Hcw8TQEkrHhfDS0o lWFdXEdgWd7ntYyblKpf KR3cXWBvrqoua822LnBb e9zwJFJrjJYcZLfvPJE7 R76jn4S3ZBZdLAMy URB6mKC5kH6hsQouagnt bGVmdDsgdmVydGljYWwt NTfxE743RBXyaSwvOdSc nFo7T2PjOsb1BUBw oMprFW8zfQFzLBynNa4r hWansBsxXW4zDQIjmvwn f329PgFvp4zbGZNliHNb EEfpUHL8B51hs2I8 EYWsVLRlUZJ5yUN7cV9m bGlnbjogbGVmdDsgdmVy oMwcZTnaLIyeG370VSDn cDsnPlBhdGllbnQg OUqnEKm5A3VqMlonpGW+ BP53ONPjED76uFTlrSBk v0qosXg6CcZnHDNuUIZ6 pCruMFdgt9SzMLGm S66ifQTok5P2XHLdkEdx xZWwKmDoaJY0vO9cLNar eibiy8kvgdapVxhaq6rp dc11sD31Z29vWPyl ZHRoPSIzMCUiIHZhbGln qy6fyF2yUz9+PGNvbCB3 uNA1yF4yWIBoMkD1NWgq C876McSxyAZxGrcu f5hdp7tnpPv8QwN9NEEj zxIudVsiGVZ2t1UvSe42 B82pBHnpPUJjHRUoBYDe YOQgiSbmmk9vbW1f Ii8+YQGrvUP3hFG7zU4k EvKsKvU0LRhwA316UeFx uNJnCgogL81iH0ErrVF+ NXTuZxc0JMMckAwx DU3szQScHBqqHe1aCNN2 RjYgIkRfLYzlW7FkOZJi etunmpiasUV2IYVjVILl vY84Yu5zdZziCSQd gYKUnS7ptkayl9rfhjsp KtYlARPcNRj8PIn6TDQa aQkqSrIaXRL9KsF6LYQ3 oRZjoI2aoTahypdy aL5oE2HxHNMvyevyMq37 iR2xWrFeKkR5NYclHjz+ JJ4KCS2SDPLGSMccMKME YKB8D6RtGfl2YEYk eHpkPQ0lxIDrGLldUo7y oKgfdGgpBE8gATBiqxbe YDXfgC5jMKQgiOUxoNbk MZ5fPNIqqqsfp600 CdMyYZV3TSPhgUHgC2Ej nR2vNqFtNBQtTMWkD4Oi yIRcGCotY393TFqqGjZ2 IPLjbvSaZ7RzWSSs sVzxRlV8d4S6Xv2gWE4r QW5dRTf6FV16WV45tKGp s9K0gKZ2U2DxCEPazdrx nuxhjCI2DJUtMTWw oT14oIKxYAzyCd2db7W8 s096ZGRmPBPnzB82Nh7m tSihAKJtpUNBwE5rgsih o1nplxnqBzLmSMTg PVi8DRx6PBUjaYqnPqYd FAC8IoY8COG9iUAfmK2x eEcihqrxcF9zCyz+NTAg VKFytaV3I5KjTsy9 OJHgnWjzUO1ujZUoKVlw Og1zoWeakGrhMG9sJUEe engpLEOvyL7fCTXctWHd cYshSA1iNDIzifos v094VgNyBZS8JIXlaCLe W6SjrJ6gJlWmFGUkXLWd S4DskPYsZQtgB242PGfr ShP4VMSsnqClJ4Nk XNNzpIpfViO7r3T2Lx7B BJ2ANJA8Z5WoIpl1YFFt pPkuAF5csJKrUDcbWf9i kHiztXgcOD3zOZWg dcglJCPkgF2xERFvwMAq jVpgRO8cSQCpccmlo692 VfYgKDI6FTLntMEkR3Sh dH6lGyOtBPFsBNQh U6JcaYNnHIvfV669RAat QzP1AQCmomMwH9QyDTXk zTpiVyB2v9P2Hq2IBBoa dGQ+HU81bo99O4Jn WzyyQcp0SWZlGJI4tBB8 gY1wJMYxEJucq5X4kNF3 V9UrkbInsa4sb0wgDBIb SSvnV25yeFJlu4Z5 RZPzjSB5LEEuwNiiJzNt sW74Tjj+KZXwhRxzs3Pd Hlnpw3ntv0puiKc5IcFa JSIgdmFsaWduPSJ0 q2ZdTp16P80lQBcyIMTy VVBsVPFbJCYlwLyhqv9d cI9zSj7+EQDxrKV9uDX8 tR6dAqToWkS5OSjg R276XvEsoCXvSrlhg7tv w7rwkJy9DzJuFDJukqVc rSflXUS3s5JmHg75N0Fo cIdgz4GtUkj9zg03 sGOuh6E7jPN9U1MzRZRb rmdsqVGtrVzbCX6gLKYm autnGCYdjR0sNXEdR7e7 CxAzAaR3DUffO0Ju zlV7QZBsdDCpFRYfxKOA cS4saembc7wejjorWnAp DVBlBTg6UKr9HTWwlCrw DbMvWAH0QpQ7IKZ2 xGIotR7oaTwgkgrscN6e Oyc+FAn9m1aerRFsOO9g hHC1RL89NU55rQIhp8B6 vYW4L1ZxWBThosyb xrggaQN5GFZfMOAcqO83 Xa1idTwuTt8zVXXoKZZ8 DMTjoLQeO7YwgQ1tXkIg DWQbYTZxD7QfnWBt INpkO478RStkTbE0PPAa rwZmF6WuKXNbtXzeJaV1 c2R3Ze1JFM75RQ87MK57 iKWzt5Z8aBQ4X9Wr JSAxiswcovvlvZK6LZLy JVDvtE34Mu8lbHngMa8p WSEzODY4XUOdsBEbA7Qa vV5lOeWbGKOpBEIv J3CykQJdQNobH263FVev QxS1ULUxufAzJ4IzOMDl zMxbGnC5o7F8Fp1YCt16 ZV83KC64hISqk3Y1 cRB5M9BbVGLvyeekdcml eUI9FZMfSIDpxC73Im7h bGlfFq9pILYdCGA3SCMr nZHfJ1DtcL3lJvOs BGVfQFUoJ5OazWTtZWou O763JUdiQeD8VTLinxRf Z1UlIAHaqLjhPpR0v3L3 Nz5RKCjwseh9C4Rj PjwvdHI+XB99DONoPC44 nNUjlBHxl8qykKy7WxYe YZDhRCR4gHxjMPvtp0Vc OTNrL13vcXSjp0G9 IGN (more content not included)... [facility] Employee Health Noteon 11-11 Employee Health Note [id number] 0 [id number] #1.00OTGTIFF [facility] Employee Health Noteon 11-05 Employee Health Note [id number]# 1.00OTGTIFF [facility] FLUORO FOR SURGICAL PROCEDUR ESon 10-08-2024 Radiology exam is complete. No Radiologist dictation. Please follow up with ordering provider. Final result [facility], Radiologist, - 10/08/2024 Radiology exam is complete. No Radiologist dictation. Please follow up with ordering provider. Final result [facility] FLUORO FOR SURGICAL PROCEDURES Radiology exam is complete. No Radiologist dictation. Please follow up with ordering provider. Final result Normal [facility] Radiology Study observation (narrative) [facility] FLUORO FOR SURGICAL PROCEDUR ESOrdered By: Radiologist Radiology on 10-08-2024 [facility] Work Phone: Guidance-- during surgeryon 10-08-2024 Radiology exam is complete. No Radiologist dictation. Please follow up with ordering provider. [facility] Employee Health Noteon 10-04 Employee Health Note [id number] 7#1.00[facility] Employee Health Note [id number] 7#1.00[facility] Employee Health Note [id number] [id number] [id number] #[id number] #1.00[facility] 36on 09-28-2024 36 Her event monitor showed episodes of atrial flutter. Please have her stop aspirin, continue clopidogrel, start Eliquis 5 mg twice daily. Please have her see Farzad Dumont to review options for management. Normal [facility] Telephoneon 09-28-2024 Telephone [id number] Jacquelyn Zeng 1975 F Date Provider Department Center 09/28/2024 Andrea-JULIANA SHANE [facility] Family History Problem Relation Age of Onset Coronary artery disease Mother Heart attack Mother Cancer Mother Heart attack Father 54 Family Status - Relation Status Age at Mother Father Normal [facility] Employee Health Noteon 09-24 Employee Health Note [id number] 15[facility] 09-22 Employee Health Note [id number] [facility] Follow-Upon 09-22-2024 Follow-Up [id number] Jacquelyn Zeng 1975 F Date Provider Department Center 09/22/2024 JOSE FRANCISCO PHAM [facility] ENDOCR [facility] Family History Problem Relation Age of Onset Coronary artery disease Mother Heart attack Mother Cancer Mother Heart attack Father 54 Family Status - Relation Status Age at Mother Father Level of Service:[id number] MS OFFICE/OUTPATIENT ESTABLISHED LOW MDM 20 MIN Normal [facility] Employee Health Noteon 09-18 Employee Health Note [id number]# [facility] No Panel InformationOrdered By: Radiologist Radiology on 09-16-2024 [facility] Work Phone: No Panel Informationon 09-16 Radiology Study observation (narrative) [facility] XR CERVICAL SPINE (4-5 VIEWS )on 09-16-2024 [...] by: Kirby White MD 09/22/24 Final result [facility] Radiology, Radiologist, MD - 09/22/2024 EXAMINATION: [...] by: Kirby White MD 09/22/24 Final result [facility] XR CERVICAL SPINE (4-5 VIEWS) EXAMINATION: 5 XRAY [...] Kirby White MD 09/22/24 Final result Normal [facility] XR LUMBAR SPINE (MIN 4 VIEWS [...] by: Kirby White MD 09/22/24 Final result [facility] Radiology, Radiologist, MD - 09/22/2024 EXAMINATION: [...] by: Kirby White MD 09/22/24 Final result [facility] XR LUMBAR SPINE (MIN 4 VIEWS) [...] Kirby White MD 09/22/24 Final result Normal [facility] XR SHOULDER LEFT (MIN 2 VIEW [...] by: Del Melton MD 09/22/24 Final result [facility] Radiology, Radiologist, - 09/22/2024 EXAMINATION: XR left [...] by: Del Melton MD 09/22/24 Final result [facility] XR SHOULDER LEFT (MIN 2 VIEWS) [...] Melton MD Signed by: Del Melton MD 5/13/25 Final result Normal [facility] Radiology Study observation (narrative) [facility] [employer] XR SHOULDER LEFT (MIN 2 VIEW S)Ordered By: Radiologist Radiology on 09-16-2024 [employer] Work Phone: Employee Health Noteon 09-15 Employee Health Note [id number] #1.00OT[facility]IFF [facility] Office Visit (MODBEC) JACQUELYN ZENG ([id number]) 1975 F Date Time Provider Department 09/11/24 11:30 AM KINGA MENDES [facility] During your visit today, we recorded the following information about you: Pulse Blood pressure 100/minute 121/68 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, ELECTRIC NEEDLE SPECIALIST.[employer] SALES COUNTER MANAGER 09/11/2024 12:02 PM Signed [facility] Follow-up [...] for migraine Informed Consent Consent Obtained: Written Adrian Protocol A moment to CARE was completed [...] collected. Written Consent Obtained: Written LOT #: [id number] Expiration Date: Month: 4 Year: 2026 Injection Sites Left (Units) Left (Sites) Right (Units) Right (Sites) TOTAL (Units) Jail Manager 5 1 5 1 10 Procerus Units: [...] Butalbital/acetamino phe (more content not included)... Normal [facility] Coding Summaryon 09-01-2024 Coding Summary HTMLBase 64 FsksnovyCNk1nNn+PGhl YWQ+FY5MBOCwR92uoJAv rG8iV2HVAOmXDtyjLZTC MMdJIsUdhlLwEG0afVDq ZXJu IC8+ZO0rGBOfTeriiQVg x5E2zWU4W84ltk5gMEoc zVB2FYZrTjWxvgljj3th jIl0JVhnBnqgYxSn BEHwpU77XBK2yI68Wz98 vAMudRUrt7olpWf0FkAf JFSrXJK9gSuvQNuyl8Xx HXZxP74jnTKbt5J0 IGNvbGxhcHNlOyBlbXB0 qV0lLTwmtepru2apzmip Rcy3gx75aGYar5F7iSB0 K4VtxdY8ZESuhGPp RklvtROWvR3bootbf4de agqxKmOeVZQpVXv4UPs6 SZBuwVjzCxAhCO98IRW2 OXScajOgW2FzHHDv vJilPxX5b7H0Rn3AB8VP AubfI2AGEKANJGnrfNZ+ CH69pw42P9MxHbvpTho2 BTDyHKG7aYU3xD8l NZMtSPndl1T3rGW7O3Ba nnMolh6ht8vaMOElOMki L50qhKUuy6G5PLLcjYC0 AYRhcLfdYhYlnA62 Oyc+DERsfVijq2WsKngc r3hih1nnjJa5MkgrKCHb ltOjmLflSHS0v2HdFb9i XDRlgWQ8pRW2vJ2p FsQzIvA9ZVvgT931ZdOj cTCkDpzhT24dZ9OfbKG+ OCUaUti2YZQzvOhjIP1j L6NzLWCydohkqNRl gZwlIC0bUBFdgpzaOKZy jI0hBNEdB1v7ShPpKcJ3 SKxvY8IzXPOizlkgXe87 oB4oSdZqBsE2SQtn Z4PcuzD0HNSabGOlXGcl HBV4E50px2B7BKGhQTEa CZD8tBM0rO8mgDanxiqs bGVmdDsgdmVydGlj BNjzJYouW324EKEfsBnu PkNvZGluZyBEYXRlOiAg MDQvMjIvMjAyNTwvdGQ+ UDJxMBS0cCgzPVEh xPYrSFyfZk7ztGbktBhg WP8iREQsjqlvGKVhlV0b GBHcyDLihZisVG0dAIGe tommj460ZdUtHRH0 ERVnjYWtF4IqjY6nRcXn SGXiYHOmJ1XabSXlLWct J168TUwfMxV0BDRlmyQn M3XuSPFmvJtdSwR2 r7H7Hx6By5DsvfzsO8Bg nKBpZlLdPoroNOg9Z2Ve PjwvdHI+WU18JDRmQJ24 YGv4RLZ5kNppOUiq QCHvK3RucU1bKpOuOOUn ZGRkOyc+PHRhYmxlIHdp ZHRoPScxMDAlJyBzdHls BE9mAl5qZWSjXNJi mTvedBHdLiPsn1ckRKOs YLnqAK5ngJoyQ3HyrQO9 SLVzx8e4Fx12O32gY9Xp dXA+QMIhcCK2qHP1 iW0jNnEjHcU7MZreP551 IyJtiBOjRlxwd4vfe9od zRs9LgO7TQAkftXzmLsr RBH0i7HoQx09D17o IHdpZHRoPSIxNSUiIHZh mQzehz0gzB9fKb5+PGNv hVH5bIZ6rD2sFiKsVwR0 XEiyD109ObOvcBIa Mpsux3nxy5uuhSo8ZuOa CHWbxjJglQdgYQB9g1Yn Ld53G1McdIqst1QlPeu8 ba06iMXlp5C4oEJ5 D8EuOXDhaukpeGJgoXlx VB0sXBIodurcRFLjcU9r BEOyN9h0AzDcHtM8YXly O7MmytN9MHOvhFTc HPNywCVMnZ3jhpkqd0az qbckYbYzUHQoKZr0MWy6 DWZgnQzdGkSfQWD0YbF6 OAH5xNDziZ8dgLyj fhdnbY8uAvw+LQL4iIEu fXNHDI6oRencvYV+PHRk LZE3bKnaGUvnAPHgxC7w YZVyE4g1AsBeXiH1 ZNesJ5EnwtE1VRZvcGZz IUPheIHBmR6fdvdzc8vp ajrmFgZeSORoWXt7TPh3 LWFsaWduOiBsZWZ0 VpY7PAS7iKZbiW6dpXrk tajtwG4tHjg+QmlydGgg MRI0CXv9K8CfKdk0PUWf uQoiIP3tqKNyFVpa Ok8mjJxbtVyhYE3uJFNr ijnnu866FdWbh3mgJAKk gYYzTZsiXYK0Q31ae0M7 VDLfLMEkCPJ0nOQ6 oC8enNpyevmtmHFkrZyt anHweQcwGQkmCIquR212 JUZkhNklUlHeKTy6L7Tn Yuy9YTCcyEafCV5p lEGyJGiqZe5yjOzdjQeq TI9lVYPysxmtl564ZlZs v8osYYMbzBKkLEdkOOB8 L58hz2R6OATtMBIt OHQ1xLO8zY7gkNblgohp bGVmdDsgdmVydGljYWwt RKtqB078RZMmgLohJpFy nGd2I1OwPji3JUNa hJyrXW0qsUFyDWayYw5n qHdpxBzaCM7kKUChtfbx x805NqOqi9asASAgwDIa WEppYBD0G78pa4I0 GNFyVMKmSCE5vOG4gF0j bGlnbjogbGVmdDsgdmVy sAviNTslTAjyF370QDTg cDsnPlBhdGllbnQg GRyoBZk0G6NrIegvrWN+ KV14MMItMO49rVPqjHQx y6rbdVd3VvHzTFEjBGN2 wFkyKBwcd4KrVAAl Y20nzJWmt2V9NJXtwOne eZNsGeBscFA3zM5qMWek awmjk4bhkkhiApcsk9jw qf29gJ93T98eRXae ZHRoPSIzMCUiIHZhbGln xg0xuW5wTu6+PGNvbCB3 mPL3dN8aXMVkZvJ6PRpo P591AvOmeYWaVjlq i7qvr8sbxMo6PiD0HGXn ndIehQtfASG8i9EbAn27 D63qXKejRKCcZWNlHZJf CAVnlAtwcb6ayS1k Ii8+TSJvkWU7lYH0hW0x UxKqYqE9MJslS497AoZq yOLgUxspM09fK4HmsMN+ QIGlQaz0WEWyoWbr IU4bzYCcVLvqQq9xEFS8 ChCeYgZoLQitZ8DwYSLe dcxjggcwaFI1SPShPMRy vL57Cv3exZumLCAs gMPIzK1uyeitr9vkgkfk LqDxCJHyUHf7ODs4TTAw dJgvFgHdGZQ3BkX1IIA8 iWQodA3toByqruku eG8tV4DkGHDrfzhrLz58 aE5ePsVtGpU5GIncOpl+ NN0FJU7LOFSQLMszWFYQ OCX2P0XxJqm3XIMe pGrvKL4gmIEdXFteXi4d dKfdaTgoJY5bMLEuksyy BXOaiE6cQZBscANawZpk IP3lRQDgdrouj513 CjOsLFV1SLDuoPRcA3Jy sH4xHuQgJRUwJCZkX3Kr aUVaZZloT612RUxcDcL2 ESOfjsFzH3QcOYAd sEozGeR6r5M7Mt5sCL4l JJ4eTGe0WZ47SS16yXWq n3D4qRA9N3PhVFKulyvb bcrbeRX5IBNnYYLm mA75hSSpKWrzJa3nr2U1 j784SZEbEJVayN70Pz9j pQzuWYGbiYFJzB3hrolb c4ocjcejFuYzLIKs UPg0XBk3TRFzzAhoAgOo HAK4RhU7AHP6xEFigP4f pLzibnoepX3rZwh+NTAg ZJStevK4C1YfFxt5 NEWhmIsvLH4ixIMlKEok Jt2vpQkjjBmiUV1hMAGm nnuqPBQsaV7cCITleDCi jQdnQD9dJQOncqna g151NqYkKPH6KJUquUSk W9UlnU5kLdCeCTVoQJGs F4BprKYkWVgsQ500WCwy JvA7WVLvxgKiE8Fi SJAymOeqLbG4l0M5Nr4L IM2EDOB7G6WqZos7IVSd dEqgPH4xeKReSNosYo7q cZrdcOciIT6pBHPv mtrpOIHheR6wYISgjYSh vPceHJ2dOOCabckrb544 SiZyIXC8DJOdwAIjZ4Wg zO0dFnRqXBAnUQTy G5WfhWSpVQbyX131GOtt CgF4MDGwbaVdT1QxMFJy bVrvQiX8b3L5Sh7CKXgk dGQ+OR83mm00E5Ec QgahWno6OELwSSW2cQR5 iT1nJVYhRBhdw7W3aER1 B7MukxKafg9sr7vgXZSa CVygI37fpSUig9Z3 KTBevUK6KOJqoJkxEvAa xP94Zqd+NAXygIlym8Mi Txcgn5zun9hcqKl6KaLa JSIgdmFsaWduPSJ0 u3KxLe53M99kNMmkAPRq DWDkRPUoTPKthPmhzb5n lK2jVy3+DWMbtCI2aXG1 bQ8aPvAeBiG0SOff Q979ObRdbRFnMrxih7yc g6subNv2RmAnKXYbnhEb sNfcTEB7u4IoPe17A6Iv oNymp5SkGmw5lm36 uYKhc4X3dXL0V6GyJIYj zszgvULatKkiNY7kOLLg uqnyBHQweX9pICDwN6r8 RiYmRqV3OBxyJ7Rx kjR5MFDaqLBjJRDovCNM pN3robgkw8fghxhhSjPn JUOuQSe5SVo0AUZwyFub ZvMuWVP6ZkX5FJM7 kFFnrY2umBaelofotS5i Oyc+EGk9l3vmvFStNZ8w tTG5PV58RP23bCAfv9U4 yZS1F9UbDRClhfnb ocxqfCJ9TKCrZYEgvU17 Hg0rdBxaYn9cUAThGYB4 PLEuxDLcM3CcsG7aQqRv MTQuWRQoE2MacRBj QMleI575GVlrMhW5KPQw kfZxF0WhPGWsoXonOpY0 z1C7Mh4SBZ34JO84CH90 qOSkp9F6vGS0S4On YRMaqcmiucswhYP6IQSl THBirO26Ue1qhXkdNc8t PQOcAJU2DYTzzGIcK8Ov vB2cSfViEIDvUCFb M1FvtAUlZNwpH501MNkp HuR4KKZnbrNeJ0HoSPYv yKjdYuK1d4O3Sx8JSs35 YE74YA68oVMkh9N0 zWG9N4CmKHHyfsefoinq aPM1THVfMBVodF10Zi6n bRecNj4sXGQqVYO9OWId pBYeI7CzpM2oYrUx TWCwHBNyQ4IihQAvFIeu N090ZUwcWsX0ROAqqpEc C3QkHVHvyIuwNbX1v7N3 Vz2JMAkwulv1Y6Sz PjwvdHI+GJ09LEWdLV85 jFLadJYpl0hgnYx8LbKq GDPzYSF0eEevPBfpx6Ry KJHmT19hbNPca5O7 IGN (more content not included)... [facility] Employee Health Noteon 09-01 Employee Health Note [id number].. 0 [id number] 64#1.00OTGTIFF [facility] Employee Health Note 104... 0 [id number] 00#1.00OTGTIFF [facility] Employee Health Note 104... 0 [id number] 39#1.00OTGTIFF [facility] Employee Health Note 104... 0 [id number] 83[facility] 08-27 Employee Health Note [id number] 0 [id number] [facility] [id number] 0 [id number] #[facility] [id number] 0 [id number] [facility] Follow-up visit [id number] Jacquelyn Zeng Nydia 1975 F Date Provider Department Center 08/12/2024 JULIANA CAAL MARIA LUZ [place] Family History Problem Relation Age of Onset Coronary artery disease Mother Heart attack Mother Cancer Mother Heart attack Father 54 Family Status - Relation Status Age at Mother Father Level of Service:58251 MS OFFICE/OUTPATIENT ESTABLISHED MOD MDM 30 MIN Normal [facility] IGP,APTIMA HPV,AGE GDLNon AGE GDLN ACOG TESTING Note . [facility] Comment on above: TESTS RESULT FLAG UN ITS REF RANGE LAB Clinician Provided Cytology Information Source.............Cervix;Endocervix No. of containers..01 ThinPrep Vial Age Algo ACOG Kayla... FLAG LEGEND: L-Low Normal,H-High Normal,LL-Alert Low,HH-Alert High <-Panic Low,>-Panic High,A-Abnormal,AA-Critical Abnormal Performed at: 01 =[address] [address] Elsy Johnson MD, HPV APTIMA Negative Negative [facility] Comment on above: This nucleic acid am plification test detects fourteen high- risk HPV types (16,18,31,33,35,39,45,51,52,56,58,59,66,68) without differentiation. Performed at: =[address] [id number] [employer]: Elsy Johnson MD, Phone: [phone] Performed at: [address] [id number] [employer]: Elsy Johnson MD, Phone: [phone] IGP, APTIMA HPV, RFX 16/18,45 Note . [facility] Comment on above: TESTS RESULT FLAG U NITS REF RANGE LAB DIAGNOSIS: 02 NEGATIVE FOR INTRAEPITHELIAL LESION OR MALIGNANCY. CELLULAR CHANGES ASSOCIATED WITH ATROPHY ARE PRESENT. Specimen adequacy: 02 Satisfactory for evaluation. Endocervical component may not be distinguished in cases of atrophy. Performed by: 02 Chepe Perez, Chronic Disease Manager (ASCP) . 02 Note: Note 02 The Pap smear is a screening test designed to aid in the detection of premalignant and malignant conditions of the uterine cervix. It is not a diagnostic procedure and should not be used as the sole means of detecting cervical cancer. Both false-positive and false-negative reports do occur. Test Methodology: Note 02 [employer] Prep(R) Publicity Director was unable to read this specimen. Therefore a manual review was performed. FLAG LEGEND: L-Low Normal,H-High Normal,LL-Alert Low,HH-Alert High <-Panic Low,>-Panic High,A-Abnormal,AA-Critical Abnormal Performed at: 02 [facility] [address] [place] [address] Elsy Johnson MD, HPV Genotype Reflex Note 02 Criteria not met, HPV Genotype not performed. Criteria not met, HPV Genotype not performed. BRUSH-SPATULA CERVIX ENDOCERVIX [id number] JACQUELYN ZENG ([id number]) 1975 F Date Time Provider Department 06/29/24 KINGA MENDES [facility] During your visit today, we recorded the following information about you: Will Medina RN 06/29/2024 8:20 AM Signed Botox referral sent to pharmacy Boris CHILDRESS, RN RN Clinical Tour Manager [facility] [place] 07/22/2024 3:16 PM Signed [facility] C9 for Botox signed and faxed to [facility] Form scanned to chart Allergies As of [...] 25 X 5/8 use with [facility] Facility-Administere d Medications as of 07/22/2024 - onabotulinum toxin type A 200 Units injection (BOTOX) Problem List As Of Date 06/29/2024 Noted Resolved Migraine without aura, without mention of intra*04/24/2005 08/01/2016 CHRON OBST ASTHMA UNSPECIFIED [J44.89] 04/24/2005 Bilateral occipital neuralgia [M54.81] 11/07/2016 Status migrainosus [G43.901] 04/08/2024 Encounter Status:Closed by WILL MEDINA on 06/29/24 Normal [facility] Documentationon 06-25-2024 Documentation [id number] Jacquelyn Zeng 1975 F Date Provider Department Center 06/25/2024 JOSE FRANCISCO PHAM [facility] ENDOCR [facility] Family History Problem Relation Age of Onset Coronary artery disease Mother Heart attack Mother Cancer Mother Heart attack Father 54 Family Status - Relation Status Age at Mother Father Reason for Visit and Comments: Diabetes Mellitus [183] - CGM [facility] Follow-Upon 06-23-2024 Follow-Up [id number] Jacquelyn Zeng 1975 F Date Provider Department Center 06/23/2024 JOSE FRANCISCO PHAM [facility] ENDOCR [facility] Family History Problem Relation Age of Onset Coronary artery disease Mother Heart attack Mother Cancer Mother Heart attack Father 54 Family Status - Relation Status Age at Mother Father Level of Service:[id number] MS OFFICE/OUTPATIENT ESTABLISHED MOD MDM 30 MIN Reason for Visit and Comments: Diabetes Mellitus [183] - DM follow up [facility] CNOVon 04-14-2024 CNOV Office Visit (NHMNS2) JACQUELYN ZENG ([id number]) 1975 F Date Time Provider Department 04/14/24 1:00 PM MARILYNN LUA MOMNS2 During your visit today, we recorded the [...] spontaneous and fluent without dysarthria. Short and watermaster memory, cognition and general fund of knowledge are good. Attention span and concentration are excellent. Cranial Nerves: VII-face is symmetric without evidence of weakness. VIII-hearing intact. Assessment: (G43.901) Status migraino (more content not included)... Normal [facility] CNOV Office Visit (NIQ) JACQUELYN ZENG ([id number]) 1975 F Date Time Provider Department 04/14/24 MARILYNN LUA NIQ During your visit today, we recorded the [...] 25 X 5/8 use with [facility] Facility-Administere d Medications as of 04/15/2024 - onabotulinum toxin type A 200 Units injection (BOTOX) Problem List As Of Date 04/14/2024 Noted Resolved Migraine without aura, without mention of intra*04/24/2005 08/01/2016 CHRON OBST ASTHMA UNSPECIFIED [J44.89] 04/24/2005 Bilateral occipital neuralgia [M54.81] 11/07/2016 Status migrainosus [G43.901] 04/08/2024 Letter Text Encounter Status:Closed by MARILYNN LUA on 04/15/24 [facility] [place] 04-08-2024 CNOV Office Visit (MODBEC) JACQUELYN ZENG ([id number]) 1975 F Date Time Provider Department 04/08/24 8:30 AM KINGA MENDES [facility] During your visit today, we recorded the [...] for migraine Informed Consent Consent Obtained: Written Adrian Protocol A moment to CARE was completed [...] applicable Written Consent Obtained: Written LOT #: [id number] Expiration Date: Month: 2 Year: 2026 Injection Sites Left (Units) Left (Sites) Right (Units) Right (Sites) TOTAL (Unit (more content not included)... Normal [facility] Refillon 04-07-2024 Refill [id number] Jacquelyn Zeng 1975 F Date Provider Department Center 04/07/2024 JOSE FRANCISCO PHAM [facility] ENDOCR [facility] Family History Problem Relation Age of Onset Coronary artery disease Mother Heart attack Mother Cancer Mother Heart attack Father 54 Family Status - Relation Status Age at Mother Father Reason for Visit and Comments: Med Change Request [411] [facility] Follow-Upon 04-06-2024 Follow-Up [id number] Jacquelyn Zeng 1975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 #### [facility] [address] [place] [address] Dr. Aurelio Leavitt Neutrophils/100 WBC (Bld) 44.3 % Normal 43.0-75.0 [facility] Comment on above: Performed By: #### C BC #### [facility] [address] [place] [address] Dr. Aurelio Leavitt Platelet mean volume (Bld) [Entitic vol] 11.5 fL Normal 9.5-13.5 [facility] Comment on above: Performed By: #### C BC #### [facility] [address] [place] [address] Dr. Aurelio Leavitt PLT 350 103/ul Normal 150-450 [facility] Comment on above: Performed By: #### C BC #### [facility] [address] [place], [place] [id number] Dr. Aurelio Leavitt RBC 5.49 106/ul Critically high 4.20-5.[address] [facility] Comment on above: Performed By: #### C BC #### [facility] [address] [address] [address] Aurelio Leavitt WBC 14.6 103/ul Critically high 4.0-11.[address] [facility] Comment on above: Performed By: #### C BC #### [facility] [address] [address] [address] Aurelio Leavitt DIRECT LDLon 07-24-2022 Cholesterol in LDL [Mass/Vol] 102 mg/dL Normal [facility] Comment on above: Performed By: #### C MREP #### [facility] [address] [address] [address] Aurelio Leavitt DLDL NORMAL SEE BELOW Normal [facility] Comment on above: Result Comment: <100 mg/dl OPTIMAL 100 - 129 mg/dl NEAR OR ABOVE OPTIMAL 130 - 159 mg/dl BORDERLINE HIGH 160 - 189 mg/dl HIGH >190 mg/dl VERY HIGH Performed By: #### C MREP #### [facility] [address] [address] [address] Aurelio Leavitt GLYCOHEMOGLOBIN A1Con 2022 ADA RECOMMENDATION SEE BELOW Normal [facility] Comment on above: Result Comment: ADA RECOMMENDED LIMIT 4.0 - 6.0 ADA THERAPEUTIC TARGET < 7.0 ACTION SUGGESTED > 7.0 Performed By: #### A CETON #### [facility] [address] [address] [address] Aurelio Leavitt Glucose [Mass/Vol] 266 mg/dL Normal [facility] Comment on above: Performed By: #### A CETON #### [facility] [address] [address] [address] Aurelio Leavitt HbA1c (Bld) [Mass fraction] 10.9 % Critically high 4.5-6.2 [facility] Comment on above: Performed By: #### A CETON #### [facility] [address] [address] [address] Aurelio Leavitt LIPID PROFILEon 07-24-2022 CHOL-HDL RATIO NORM SEE BELOW Normal [facility] Comment on above: Result Comment: 3.3 - 4.4 LOW RISK 4.4 - 7.1 AVERAGE RISK 7.1 - 11.0 MODERATE RISK >11.0 HIGH RISK Performed By: #### C MREP #### [facility] [address] [address] [address] Aurelio Leavitt Cholesterol [Mass/Vol] 257 mg/dL Critically high <=200 [facility] Comment on above: Performed By: #### C MREP #### [facility] [address] [address] [address] Aurelio Leavitt Cholesterol in HDL [Mass/Vol] 34 mg/dL Critically low 40-60 [facility] Comment on above: Performed By: #### C MREP #### [facility] [address] [address] [address] Aurelio Leavitt Cholesterol.total/Linda sterol in HDL [Mass ratio] 7.6 {ratio} Normal [facility] Comment on above: Performed By: #### C MREP #### [facility] [address] [place] [address] Dr. Aurelio Leavitt HDL NORMAL > or = 60 mg/dl - LOW CARDIOVASCULAR RISK <40 mg/dl - HIGH CARDIOVASCULAR RISK Normal [facility] Comment on above: Performed By: #### C MREP #### [facility] [address] [place] [address] Dr. Aurelio Leavitt LDL CALC NORMAL SEE BELOW Normal [facility] Comment on above: Result Comment: <100 mg/dl OPTIMAL 100 - 129 mg/dl NEAR OR ABOVE OPTIMAL 130 - 159 mg/dl BORDERLINE HIGH 160 - 189 mg/dl HIGH >190 mg/dl VERY HIGH Performed By: #### C MREP #### [facility] [address] [address] [address] Aurelio Leavitt Triglyceride [Mass/Vol] 934 mg/dL Critically high <=150 [facility] Comment on above: Performed By: #### C MREP #### [facility] [address] [address] [address] Aurelio Leavitt VLDL CALC 186.8 mg/dL Normal [facility] Comment on above: Performed By: #### C MREP #### [facility] [address] [address] [address] Aurelio Leavitt LIVER PROFILEon 07-24-2022 Albumin [Mass/Vol] 4.2 g/dL Normal 3.4-5.0 [facility] Comment on above: Performed By: #### C MREP #### [facility] [address] [address] [address] Aurelio Leavitt Albumin/Globulin [Mass ratio] 1.2 {ratio} Normal [facility] Comment on above: Performed By: #### C MREP #### [facility] [address] [address] [address] Aurelio Leavitt ALP [Catalytic activity/Vol] 127 U/L Critically high 46-116 [facility] Comment on above: Performed By: #### C MREP #### [facility] [address] [address] [address] Aurelio Leavitt ALT [Catalytic activity/Vol] 33 U/L Normal 14-59 [facility] Comment on above: Performed By: #### C MREP #### [facility] [address] [place] [address] Dr. Aurelio Leavitt AST [Catalytic activity/Vol] 14 U/L Critically low 15-37 [facility] Comment on above: Performed By: #### C MREP #### [facility] [address] [address] [address] Aurelio Leavitt BILI, CONJUGATED 0.1 mg/dL Normal 0.0-0.[address] [facility] Comment on above: Performed By: #### C MREP #### [facility] [address] [place] [address] Dr. Aurelio Leavitt Bilirubin [Mass/Vol] 0.2 mg/dL Normal 0.2-1.0 [facility] Comment on above: Performed By: #### C MREP #### [facility] [address] [address] [address] Aurelio Leavitt Globulin (S) [Mass/Vol] 3.5 g/dL Normal [facility] Comment on above: Performed By: #### C MREP #### [facility] [address] [address] [address] Aurelio Leavitt Protein [Mass/Vol] 7.7 g/dL Normal 6.4-8.2 [facility] Comment on above: Performed By: #### C MREP #### [facility] [address] [address] [address] Aurelio Leavitt PROF CHEM 8 (BAS METB)on Anion gap [Moles/Vol] 10.4 mmol/L Normal [facility] Comment on above: Performed By: #### C MREP #### [facility] [address] [address] [address] Aurelio Leavitt Calcium [Mass/Vol] 9.5 mg/dL Normal 8.5-10.1 [facility] Comment on above: Performed By: #### C MREP #### [facility] [address] [address] [address] Aurelio Leavitt Chloride [Moles/Vol] 97 mmol/L Critically low 98-107 [facility] Comment on above: Performed By: #### C MREP #### [facility] [address] [place] [address] Dr. Aurelio Leavitt CO2 [Moles/Vol] 30.3 mmol/L Normal 21.0-32.[address] [facility] Comment on above: Performed By: #### C MREP #### [facility] [address] [place] [address] Dr. Aurelio Leavitt Creatinine [Mass/Vol] 0.62 mg/dL Normal 0.55-1.02 [facility] Comment on above: Performed By: #### C MREP #### [facility] [address] [place] [address] Dr. Aurelio Leavitt EGFR-AF SWEDISH 60 mL/min/1.73m2 Normal >=60 [facility] Comment on above: Performed By: #### C MREP #### [facility] [address] [address] [address] Aurelio Leavitt EGFR-NON AF SWEDISH 60 mL/min/1.73m2 Normal >=60 [facility] Comment on above: Performed By: #### C MREP #### [facility] [address] [place] [address] Dr. Aurelio Leavitt Glucose [Mass/Vol] 252 mg/dL Critically high 74-106 [facility] Comment on above: Performed By: #### C MREP #### [facility] [address] [address] [address] Aurelio Leavitt Potassium [Moles/Vol] 3.7 mmol/L Normal 3.5-5.1 [facility] Comment on above: Performed By: #### C MREP #### [facility] [address] [place] [address] Dr. Aurelio Leavitt Sodium [Moles/Vol] 134 mmol/L Critically low 136-145 [facility] Comment on above: Performed By: #### C MREP #### [facility] [address] [place] [address] Dr. Aurelio Leavitt Urea nitrogen [Mass/Vol] 13.0 mg/dL Normal 7.0-18.0 [facility] Comment on above: Performed By: #### C MREP #### [facility] [address] [place] [address] Dr. Aurelio Leavitt Urea nitrogen/Creatinine [Mass ratio] 21.0 mg/mg Normal [facility] Comment on above: Performed By: #### C MREP #### [facility] [address] [place] [address] Dr. Aurelio Leavitt TSHon 07-24-2022 TSH 2.102 uIU/mL Normal 0.358-3.740 [facility] Comment on above: Performed By: #### C MREP #### [facility] [address] [place] [address] Dr. Aurelio Leavitt US CHESTon 07-10-2022 US [...] by: AVINASH SERRATO Date: 2022-07-10 16:41 Normal [facility] NM STRESS/REST MULTIon 06-26 NM STRESS/REST MULTI Patient: BOB ZENG. Exam Date: 06/26/2022 : 1975 Gender:F Ordering : DR JOSH OCHOA . Admission #: [id number] Family : Order #: [id number] CLICK HERE TO VIEW EXAM RADIOLOGY REPORT [...] OF STUDY: Good. PERFUSION DEFECT: LOCATION: Mid-anterior. [place]. SIZE: Small (1-2 segments). SEVERITY: Mild. TYPE: [...] Serrato MD on 06/27/2022 at 06:05 Normal [facility] XR TSPINE 3 VIEWSon 06-26-19 23 [...] BARTOLOME RODRIGUEZ Date: 2022-06-26 09:05 Normal [facility] ALBUMINon 03-29-2022 Albumin [Mass/Vol] 3.5 g/dL Normal 3.4-5.0 [facility] Comment on above: Performed By: #### C MREP #### [facility] [address] [place], [place] [address] Dr. Aurelio Leavitt AMYLASEon 03-29-2022 Amylase [Catalytic activity/Vol] 27 U/L Normal 25-115 [facility] Comment on above: Performed By: #### A MY, LIPA, CMADM #### [facility] [address] [address] [address] Aurelio Leavitt Albumin [Mass/volume] in Ser um or PlasmaOrdered By: Marie Elias on 03-29-2022 Albumin [Mass/Vol] 3.5 g/dL 3.2-5.5 [facility] CARDIAC FANNY 3-6on 2 CK [Catalytic activity/Vol] 107 U/L Normal 26-192 [facility] Comment on above: Performed By: #### C MREP #### [facility] [address] [address] [address] Aurelio Leavitt CK.MB [Mass/Vol] 1.04 ng/mL Normal <=3.[address] [facility] Comment on above: Performed By: #### C MREP #### [facility] [id number] Aurelio Leavitt HSTROP 5.8 pg/mL Normal 4.0-51.3 [facility] Comment on above: Result Comment: CUT- OFF POINTS HAVE BEEN ESTABLISHED BASED ON THE FOURTH UNIVERSAL DEFINITIONS OF MYOCARDIAL INFARCTION. THE UPPER REFERENCE LIMIT (URL) OF TROPONIN, DEFINED THE 99TH PERCENTILE OF cTnI DISTRIBUTION IN A REFERENCE POPULATION, HAS BEEN CONFIRMED THE DECISION THRESHOLD FOR KS DIAGNOSIS. Performed By: #### C MREP #### [facility] [address] [place], [place] [address] Dr. Aurelio Leavitt CARDIAC FANNY ADMITon 022 CK [Catalytic activity/Vol] 96 U/L Normal 26-192 [facility] Comment on above: Performed By: #### A MY, LIPA, CMADM #### [facility] [address] [address] [address] Aurelio Leavitt CK.MB [Mass/Vol] 0.89 ng/mL Normal <=3.[address] [facility] Comment on above: Performed By: #### A MY, LIPA, CMADM #### [facility] [address] [address] [address] Aurelio Leavitt HSTROP 5.7 pg/mL Normal 4.0-51.3 [facility] Comment on above: Result Comment: CUT- OFF POINTS HAVE BEEN ESTABLISHED BASED ON THE FOURTH UNIVERSAL DEFINITIONS OF MYOCARDIAL INFARCTION. THE UPPER REFERENCE LIMIT (URL) OF TROPONIN, DEFINED THE 99TH PERCENTILE OF cTnI DISTRIBUTION IN A REFERENCE POPULATION, HAS BEEN CONFIRMED THE DECISION THRESHOLD FOR KS DIAGNOSIS. Performed By: #### A MY, LIPA, CMADM #### [facility] [address] [address] [address] Aurelio Leavitt ROMULO 24 ng/mL Normal 9-82 [facility] Comment on above: Performed By: #### A MY, LIPA, CMADM #### [facility] [address] [address] [address] Aurelio Leavitt CBC AUTO DIFFon 03-29-2022 BASO # 0.1 103/ul Normal 0.0-0.1 [facility] Comment on above: Performed By: #### C BC #### [facility] [address] [place] [address] Dr. Aurelio Leavitt Basophils/100 WBC (Bld) 1.1 % Normal 0.2-2.0 [facility] Comment on above: Performed By: #### C BC #### [facility] [address] [address] [address] Aurelio Leavitt EO # 0.2 103/ul Normal 0.0-0.7 [facility] Comment on above: Performed By: #### C BC #### [facility] [address] [place] [address] Dr. Aurelio Leavitt Eosinophils/100 WBC (Bld) 2.9 % Normal 0.9-7.0 [facility] Comment on above: Performed By: #### C BC #### [facility] [address] [place] [address] Dr. Aurelio Leavitt Erythrocyte distribution width (RBC) [Ratio] 13.2 % Normal 11.0-15.0 [facility] Comment on above: Performed By: #### C BC #### [facility] [address] [place] [address] Dr. Aurelio Leavitt Hematocrit (Bld) [Volume fraction] 45.2 % Normal 36.0-48.0 [facility] Comment on above: Performed By: #### C BC #### [facility] [address] [place] [address] Dr. Aurelio Leavitt Hemoglobin (Bld) [Mass/Vol] 16.3 g/dL Critically high 12.0-16.0 [facility] Comment on above: Performed By: #### C BC #### [facility] [address] [place] [address] Dr. Aurelio Leavitt IG # 0.02 10e3/ul Normal 0.00-0.03 [facility] Comment on above: Performed By: #### C BC #### [facility] [address] [place] [address] Dr. Aurelio Leavitt IG % 0.3 % Normal 0.0-0.5 [facility] Comment on above: Performed By: #### C BC #### [facility] [address] [place] [address] Dr. Aurelio Leavitt LYMPH # 3.8 103/ul Normal 1.2-3.8 [facility] Comment on above: Performed By: #### C BC #### [facility] [address] [place] [address] Dr. Aurelio Leavitt Lymphocytes/100 WBC (Bld) 51.4 % Normal 20.5-60.0 [facility] Comment on above: Performed By: #### C BC #### [facility] [address] [place] [address] Dr. Aurelio Leavitt MANUAL DIFF REQ NO Normal [facility] Comment on above: Performed By: #### C BC #### [facility] [address] [place] [address] Dr. Aurelio Leavitt MCH (RBC) [Entitic mass] 32.8 pg Normal 26.7-34.0 [facility] Comment on above: Performed By: #### C BC #### [facility] [address] [place] [address] Dr. Aurelio Leavitt MCHC (RBC) [Mass/Vol] 36.1 g/dL Critically high 29.9-35.2 [facility] Comment on above: Performed By: #### C BC #### [facility] [address] [place] [address] Dr. Aurelio Leavitt MCV (RBC) [Entitic vol] 90.9 fL Normal 81.0-99.0 [facility] Comment on above: Performed By: #### C BC #### [facility] [address] [place] [address] Dr. Aurelio Leavitt MONO # 0.6 103/ul Normal 0.3-0.8 [facility] Comment on above: Performed By: #### C BC #### [facility] [address] [place] [address] Dr. Aurelio Leavitt Monocytes/100 WBC (Bld) 8.0 % Normal 1.7-12.0 [facility] Comment on above: Performed By: #### C BC #### [facility] [address] [place] [address] Dr. Aurelio Leavitt NEUT # 2.7 103/ul Normal 1.4-6.5 [facility] Comment on above: Performed By: #### C BC #### [facility] [address] [place] [address] Dr. Aurelio Leavitt Neutrophils/100 WBC (Bld) 36.3 % Critically low 43.0-75.0 [facility] Comment on above: Performed By: #### C BC #### [facility] [address] [place] [address] Dr. Aurelio Leavitt Platelet mean volume (Bld) [Entitic vol] 11.5 fL Normal 9.5-13.5 [facility] Comment on above: Performed By: #### C BC #### [facility] [address] [address] [address] Aurelio Leavitt PLT 246 103/ul Normal 150-450 [facility] Comment on above: Performed By: #### C BC #### [facility] [address] [address] [address] Aurelio Leavitt RBC 4.97 106/ul Normal 4.20-5.40 [facility] Comment on above: Performed By: #### C BC #### [facility] [address] [address] [address] Aurelio Leavitt WBC 7.4 103/ul Normal 4.0-11.0 [facility] Comment on above: Performed By: #### C BC #### [facility] [address] [place] [address] Dr. Aurelio Leavitt Creatinine and Glomerular fi ltration rate.predicted panel (S/P/Bld)Ordered By: Marie Elias on 03-29-2022 Creatinine [Mass/Vol] 0.53 mg/dL 0.44-1.03 [facility] ER URINE PROFILEon 2 Bilirubin Ql (U) Negative Normal NEGATIVE [facility] Comment on above: Performed By: #### L ACT #### [facility] [address] [place] [address] Dr. Aurelio Leavitt Clarity (U) CLEAR Normal CLEAR [facility] Comment on above: Performed By: #### L ACT #### [facility] [address] [place] [address] Dr. Aurelio Leavitt Color (U) LT. YELLOW Normal YELLOW [facility] Comment on above: Performed By: #### L ACT #### [facility] [address] [place], [place] [id number] Dr. Aurelio BRADY A micrscopic examination will be performed if indicated. Normal [facility] Comment on above: Performed By: #### L ACT #### [facility] [address] [place] [address] Dr. Aurelio Leavitt Glucose Ql (U) >1000 Abnormal NEGATIVE [facility] Comment on above: Performed By: #### L ACT #### [facility] [address] [place] [address] Dr. Aurelio Leavitt Hemoglobin Ql (U) TRACE-LYSED Abnormal NEGATIVE [facility] Comment on above: Performed By: #### L ACT #### [facility] [address] [place] [address] Dr. Aurelio Leavitt Ketones Ql (U) 15 mg/dl Abnormal NEGATIVE [facility] Comment on above: Performed By: #### L ACT #### [facility] [address] [place] [address] Dr. Aurelio Leavitt LEUKOCYTES Negative Normal NEGATIVE [facility] Comment on above: Performed By: #### L ACT #### [facility] [address] [place] [address] Dr. Aurelio Leavitt Nitrite Ql (U) Negative Normal NEGATIVE [facility] Comment on above: Performed By: #### L ACT #### [facility] [address] [place] [address] Dr. Aurelio Leavitt pH (U) 5.5 [pH] Normal 5-9 [facility] Comment on above: Performed By: #### L ACT #### [facility] [address] [place] [address] Dr. Aurelio Leavitt SPEC GRAVITY 1.020 Normal 1.005-<=1.02 5 [facility] Comment on above: Performed By: #### L ACT #### [facility] [address] [place] [address] Dr. Aurelio Leavitt UA PROTEIN Negative Normal NEGATIVE/ TRACE [facility] Comment on above: Performed By: #### L ACT #### [facility] [address] [place] [address] Dr. Aurelio Leavitt UR MICRO IND INDICATED Normal [facility] Comment on above: Performed By: #### L ACT #### [facility] [address] [place] [address] Dr. Aurelio Leavitt Urobilinogen Qn (U) 0.2 {Dalia'U}/dL Normal 0.2 - 1. 0 [facility] Comment on above: Performed By: #### L ACT #### [facility] [address] [address] [address] Aurelio Leavitt Estimated glomerular filtrat ion rate (GFR) non- AmericanOrdered By: Marie Elias on 03-29-2022 GFR/1.73 sq M.predicted among non-blacks MDRD (S/P/Bld) [Vol rate/Area] > 60 mL/Min [facility] Globulin Calc (S) [Mass/Vol] Ordered By: Marie Elias on 03-29-2022 Globulin (S) [Mass/Vol] 2.7 g/dL F [facility] LACTATE/LACTIC ACIDon 2021 Lactate [Moles/Vol] 1.0 mmol/L Normal 0.4-1.9 [facility] Comment on above: Performed By: #### L ACT #### [facility] [address] [place] [address] Dr. Aurelio Leavitt LIPASEon 03-29-2022 Lipase [Catalytic activity/Vol] 139.0 U/L Normal 73.0-393.0 [facility] Comment on above: Performed By: #### A MY, LIPA, CMADM #### [facility] [address] [address] [address] Aurelio Leavitt LIVER PROFILE SEND OUTon Albumin, Serum LIPG Normal [facility] Comment on above: Result Comment: Test not performed. Specimen is grossly lipemic. Performed By: #### L ACT #### [facility] [address] [address] [address] Aurelio Leavitt ALP [Catalytic activity/Vol] 126 U/L Critically high 44-121 [facility] Comment on above: Performed By: #### L ACT #### [facility] [address] [address] [address] Aurelio Leavitt ALT [Catalytic activity/Vol] 66 U/L Critically high 0-32 [facility] Comment on above: Performed By: #### L ACT #### [facility] [address] [address] [address] Aurelio Leavitt AST [Catalytic activity/Vol] 61 U/L Critically high 0-40 [facility] Comment on above: Performed By: #### L ACT #### [facility] [address] [address] [address] Aurelio Leavitt Bilirubin [Mass/Vol] mg/dL Normal 0.0-1.2 [facility] Comment on above: Performed By: #### L ACT #### [facility] [address] [address] [address] Aurelio Leavitt Bilirubin, Direct LIPG Normal [facility] Comment on above: Result Comment: Test not performed. Specimen is grossly lipemic. Performed By: #### L ACT #### [facility] [address] [address] [address] Aurelio Leavitt Protein [Mass/Vol] 6.5 g/dL Normal 6.0-8.5 [facility] Comment on above: Performed By: #### L ACT #### [facility] [address] [address] [address] Aurelio Leavitt Laboratory - Chemistry and C hemistry - challengeOrdered By: Marie Elias on 03-29-2022 Lipase [Catalytic activity/Vol] 42.0 U/L 22-51 [facility] No Panel InformationOrdered By: Marie Elias on 03-29-2022 Estimated GFR () > 60 mL/Min [facility] Comment on above: GFR estimated refere nce range: According to KDOQI guidelines, <60 ml/min/1.73m2 is sufficient to diagnose a patient with chronic kidney disease. Pharmacy Creatinine Clearance (Chem N/A [facility] PROF CHEM 8 (BAS METB)on Anion gap [Moles/Vol] 15.8 mmol/L Normal [facility] Comment on above: Performed By: #### L ACT #### [facility] [address] [address] [address] Aurelio Leavitt Calcium [Mass/Vol] 8.8 mg/dL Normal 8.5-10.1 [facility] Comment on above: Performed By: #### L ACT #### [facility] [address] [address] [address] Aurelio Leavitt Chloride [Moles/Vol] 101 mmol/L Normal 98-107 [facility] Comment on above: Performed By: #### L ACT #### [facility] [address] [address] [address] Aurelio Leavitt CO2 [Moles/Vol] 21.3 mmol/L Normal 21.0-32.[address] [facility] Comment on above: Performed By: #### L ACT #### [facility] [address] [address] [address] Aurelio Leavitt Creatinine [Mass/Vol] 0.53 mg/dL Critically low 0.55-1.02 [facility] Comment on above: Performed By: #### L ACT #### [facility] [address] [place] [address] Dr. Aurelio Leavitt EGFR-AF SWEDISH >60 Normal >=[address] [facility] Comment on above: Performed By: #### L ACT #### [facility] [address] [address] [address] Aurelio Leavitt EGFR-NON AF SWEDISH >60 Normal >=60 [facility] Comment on above: Performed By: #### L ACT #### [facility] [address] [address] [address] Aurelio Leavitt Glucose [Mass/Vol] 347 mg/dL Critically high 74-106 [facility] Comment on above: Performed By: #### L ACT #### [facility] [address] [address] [address] Aurelio Leavitt Potassium [Moles/Vol] 4.1 mmol/L Normal 3.5-5.1 [facility] Comment on above: Performed By: #### L ACT #### [facility] [address] [address] [address] Aurelio Leavitt Sodium [Moles/Vol] 134 mmol/L Critically low 136-145 [facility] Comment on above: Performed By: #### L ACT #### [facility] [address] [address] [address] Aurelio Leavitt Urea nitrogen [Mass/Vol] 8.0 mg/dL Normal 7.0-18.0 [facility] Comment on above: Performed By: #### L ACT #### [facility] [address] [address] [address] Aurelio Leavitt Urea nitrogen/Creatinine [Mass ratio] 15.1 mg/mg Normal [facility] Comment on above: Performed By: #### L ACT #### [facility] [address] [place] [address] Dr. Aurelio Leavitt PROF CHEM 8 (BAS METB) SEND OUTon 03-29-2022 Calcium [Mass/Vol] 9.3 mg/dL Normal 8.7-10.2 [facility] Comment on above: Performed By: #### L ACT #### [facility] [address] [place] [address] Dr. Aurelio Leavitt Chloride [Moles/Vol] 92 mmol/L Critically low 96-106 [facility] Comment on above: Performed By: #### L ACT #### [facility] [address] [place] [address] Dr. Aurelio Leavitt CO2 [Moles/Vol] 27 mmol/L Normal 20-29 [facility] Comment on above: Performed By: #### L ACT #### [facility] [address] [place] [address] Dr. Aurelio Leavitt Creatinine [Mass/Vol] 1.89 mg/dL Critically high 0.57-1.00 [facility] Comment on above: Performed By: #### L ACT #### [facility] [address] [place] [address] Dr. Aurelio Leavitt GFR/1.73 sq M.predicted among non-blacks MDRD (S/P/Bld) [Vol rate/Area] 33 mL/min/{1.73_m2} Critically low >59 [facility] Comment on above: Performed By: #### L ACT #### [facility] [address] [place] [address] Dr. Aurelio Leavitt Glucose [Mass/Vol] 342 mg/dL Critically high 70-99 [facility] Comment on above: Performed By: #### L ACT #### [facility] [address] [place], [place] [id number] Dr. Aurelio Leavitt Potassium [Moles/Vol] 4.2 mmol/L Normal 3.5-5.2 [facility] Comment on above: Result Comment: Spec imen received hemolyzed. Value may be increased by hemolysis. Clinical correlation indicated. Performed By: #### L ACT #### [facility] [address] [address] [address] Aurelio Leavitt Sodium [Moles/Vol] 129 mmol/L Critically low 134-144 [facility] Comment on above: Performed By: #### L ACT #### [facility] [address] [address] [address] Aurelio Leavitt Urea nitrogen [Mass/Vol] 8 mg/dL Normal 6-24 [facility] Comment on above: Performed By: #### L ACT #### [facility] [address] [address] [address] Aurelio Leavitt Urea nitrogen/Creatinine [Mass ratio] 4 mg/mg Critically low 9- [facility] Comment on above: Performed By: #### L ACT #### [facility] [address] [address] [address] Aurelio Leavitt Protein [Mass/volume] in Ser um or PlasmaOrdered By: Marie Elias on 03-29-2022 Protein [Mass/Vol] 6.2 g/dL 6.1-7.9 [facility] Serum or plasma alanine regalado otransferase measurement without P-5'-P (enzymatic activiOrdered By: Marie Elias on 03-29-2022 ALT No additional P-5'-P [Catalytic activity/Vol] See comment 1060 [facility] Comment on above: Specimen hemolyzed, redraw requested Serum or plasma albumin/glob ulin mass ratioOrdered By: Marie Elias on 03-29-2022 Albumin/Globulin [Mass ratio] 1.3 {ratio} [facility] Serum or plasma alkaline thomas sphatase measurement (enzymatic activity/volume)Ordered By: Marie Elias on 03-29-2022 ALP [Catalytic activity/Vol] See comment 3292 [facility] Comment on above: Specimen hemolyzed, redraw requested Serum or plasma amylase lexus urement (enzymatic activity/volume)Ordered By: Marie Elias on 03-29-2022 Amylase [Catalytic activity/Vol] 29 U/L 28-100 [facility] Serum or plasma anion gap de terminationOrdered By: Marie Elias on 03-29-2022 Anion gap [Moles/Vol] TNP [facility] Comment on above: Test not performed Serum or plasma aspartate am inotransferase measurement (enzymatic activity/volume)Ordered By: Marie Elias on 03-29-2022 AST [Catalytic activity/Vol] See comment 10 [facility] Comment on above: Specimen hemolyzed, redraw requested Serum or plasma calcium lexus urement (mass/volume)Ordered By: Marie Elias on 03-29-2022 Calcium [Mass/Vol] 8.8 mg/dL 8.2-10.2 [facility] Serum or plasma chloride sarai surement (moles/volume)Ordered By: Marie Elias on 03-29-2022 Chloride [Moles/Vol] 101 mmol/L 95-114 [facility] Serum or plasma glucose lexus urement (mass/volume)Ordered By: Marie Elias on 03-29-2022 Glucose [Mass/Vol] 347 mg/dL 70-100 [facility] Comment on above: ADA recommended refe rence rangeRandom Glucose Reference Range is dependent on time and content of last meal. Glucose of more than 200 mg/dL in a nonstressed, ambulatory subject supports the diagnosis of Diabetes Mellitus. Serum or plasma potassium me asurement (moles/volume)Ordered By: Marie Elias on 03-29-2022 Potassium [Moles/Vol] See comment 3.5-5.1 [facility] Comment on above: Specimen hemolyzed, redraw requested Serum or plasma sodium measu rement (moles/volume)Ordered By: Marie Elias on 03-29-2022 Sodium [Moles/Vol] 134 mmol/L 136-146 [facility] Serum or plasma total biliru bin measurement (mass/volume)Ordered By: Marie Elias on 03-29-2022 Bilirubin [Mass/Vol] See comment 0.3-1.2 [facility] Comment on above: Specimen hemolyzed, redraw requested Serum or plasma total carbon dioxide measurement (moles/volume)Ordered By: Marie Elias on 03-29-2022 CO2 [Moles/Vol] 21.3 mmol/L 22.0-30.0 [facility] Serum or plasma urea nitroge n measurement (mass/volume)Ordered By: Marie Elias on 03-29-2022 Urea nitrogen [Mass/Vol] 8 mg/dL 9-23 [facility] URINE MICROSCOPIC ONLYon BACTERIA TRACE Abnormal NONE SEEN [facility] Comment on above: Performed By: #### L ACT #### [facility] [address] [place] [address] Dr. Aurelio Leavitt Bacteria identified Cx Nom (U) NOT INDICATED Normal [facility] Comment on above: Performed By: #### L ACT #### [facility] [address] [place] [address] Dr. Aurelio Leavitt CAST NONE SEEN Normal NONE SEEN [facility] Comment on above: Performed By: #### L ACT #### [facility] [address] [place] [address] Dr. Aurelio Leavitt Crystals LM Nom (Urine sed) NONE SEEN Normal NONE SEEN [facility] Comment on above: Performed By: #### L ACT #### [facility] [address] [place] [address] Dr. Aurelio Leavitt Epithelial cells LM Ql (Urine sed) FEW Abnormal NONE SEEN /RARE [facility] Comment on above: Performed By: #### L ACT #### [facility] [address] [place] [address] Dr. Aurelio Leavitt MUCOUS NONE SEEN Normal NONE SEEN [facility] Comment on above: Performed By: #### L ACT #### [facility] [address] [place] [address] Dr. Aurelio Leavitt RBC 2-5 Abnormal 0-2 [facility] Comment on above: Performed By: #### L ACT #### [facility] [address] [place] [address] Dr. Aurelio Leavitt WBC 0-2 Abnormal NONE SEEN [facility] Comment on above: Performed By: #### L ACT #### [facility] [address] [address] [address] Aurelio Leavitt Urine lactic acid measuremen tOrdered By: Marie Elias on 03-29-2022 Lactate (U) [Moles/Vol] 1.0 mmol/L 0.5-2.2 F [facility] XR ABD FLAT UP_PA Emanuel 03-29 [...] JESSICA BOSTON Date: 2022-03-29 02:02 Normal [facility] AMYLASEon 03-28-2022 Amylase [Catalytic activity/Vol] 27 U/L Normal 25-115 [facility] Comment on above: Performed By: #### A CETON #### [facility] [address] [address] [address] Aurelio Leavitt CBC AUTO DIFFon 03-28-2022 BASO # 0.1 103/ul Normal 0.0-0.1 [facility] Comment on above: Performed By: #### L ACT #### [facility] [address] [address] [address] Aurelio Leavitt Basophils/100 WBC (Bld) 0.7 % Normal 0.2-2.0 [facility] Comment on above: Performed By: #### L ACT #### [facility] [address] [address] [address] Aurelio Leavitt EO # 0.2 103/ul Normal 0.0-0.7 [facility] Comment on above: Performed By: #### L ACT #### [facility] [address] [place] [address] Dr. Aurelio Leavitt Eosinophils/100 WBC (Bld) 1.9 % Normal 0.9-7.0 [facility] Comment on above: Performed By: #### L ACT #### [facility] [address] [place] [address] Dr. Aurelio Leavitt Erythrocyte distribution width (RBC) [Ratio] 13.3 % Normal 11.0-15.0 [facility] Comment on above: Performed By: #### L ACT #### [facility] [address] [place] [address] Dr. Aurelio Leavitt Hematocrit (Bld) [Volume fraction] 45.1 % Normal 36.0-48.0 [facility] Comment on above: Performed By: #### L ACT #### [facility] [address] [place] [address] Dr. Aurelio Leavitt Hemoglobin (Bld) [Mass/Vol] 16.8 g/dL Critically high 12.0-16.0 [facility] Comment on above: Performed By: #### L ACT #### [facility] [address] [place] [address] Dr. Aurelio Leavitt IG # 0.03 10e3/ul Normal 0.00-0.03 [facility] Comment on above: Performed By: #### L ACT #### [facility] [address] [place] [address] Dr. Aurelio Leavitt IG % 0.3 % Normal 0.0-0.5 [facility] Comment on above: Performed By: #### L ACT #### [facility] [address] [place] [address] Dr. Aurelio Leavitt LYMPH # 3.2 103/ul Normal 1.2-3.8 [facility] Comment on above: Performed By: #### L ACT #### [facility] [address] [place] [address] Dr. Aurelio Leavitt Lymphocytes/100 WBC (Bld) 27.9 % Normal 20.5-60.0 [facility] Comment on above: Performed By: #### L ACT #### [facility] [address] [place] [address] Dr. Aurelio Leavitt MANUAL DIFF REQ NO Normal [facility] Comment on above: Performed By: #### L ACT #### [facility] [address] [place] [address] Dr. Aurelio Leavitt MCH (RBC) [Entitic mass] 33.7 pg Normal 26.7-34.0 [facility] Comment on above: Performed By: #### L ACT #### [facility] [address] [place] [address] Dr. Aurelio Leavitt MCHC (RBC) [Mass/Vol] 37.3 g/dL Critically high 29.9-35.2 [facility] Comment on above: Performed By: #### L ACT #### [facility] [address] [place] [address] Dr. Aurelio Leavitt MCV (RBC) [Entitic vol] 90.4 fL Normal 81.0-99.0 [facility] Comment on above: Performed By: #### L ACT #### [facility] [address] [place] [address] Dr. Aurelio Leavitt MONO # 1.1 103/ul Critically high 0.3-0.8 [facility] Comment on above: Performed By: #### L ACT #### [facility] [address] [place] [address] Dr. Aurelio Leavitt Monocytes/100 WBC (Bld) 9.5 % Normal 1.7-12.0 [facility] Comment on above: Performed By: #### L ACT #### [facility] [address] [place] [address] Dr. Aurelio Leavitt NEUT # 6.8 103/ul Critically high 1.4-6.5 [facility] Comment on above: Performed By: #### L ACT #### [facility] [address] [place] [address] Dr. Aurelio Leavitt Neutrophils/100 WBC (Bld) 59.7 % Normal 43.0-75.0 [facility] Comment on above: Performed By: #### L ACT #### [facility] [address] [address] [address] Aurelio Leavitt Platelet mean volume (Bld) [Entitic vol] 12.1 fL Normal 9.5-13.5 [facility] Comment on above: Performed By: #### L ACT #### [facility] [address] [address] [address] Aurelio Leavitt PLT 247 103/ul Normal 150-450 [facility] Comment on above: Performed By: #### L ACT #### [facility] [address] [place] [address] Dr. Aurelio Leavitt RBC 4.99 106/ul Normal 4.20-5.40 [facility] Comment on above: Performed By: #### L ACT #### [facility] [address] [address] [address] Aurelio Leavitt WBC 11.3 103/ul Critically high 4.0-11.[address] [facility] Comment on above: Performed By: #### L ACT #### [facility] [address] [place] [address] Dr. Aurelio Leavitt LIPASEon 03-28-2022 Lipase [Catalytic activity/Vol] 163.0 U/L Normal 73.0-393.0 [facility] Comment on above: Performed By: #### A CETON #### [facility] [address] [place] [address] Dr. Aurelio Leavitt GLYCOHEMOGLOBIN A1Con 2021 ADA RECOMMENDATION SEE BELOW Normal [facility] Comment on above: Result Comment: ADA RECOMMENDED LIMIT 4.0 - 6.0 ADA THERAPEUTIC TARGET < 7.0 ACTION SUGGESTED > 7.0 Performed By: #### A CETON #### [facility] [address] [place] [address] Dr. Aurelio Leavitt Glucose [Mass/Vol] 232 mg/dL Normal [facility] Comment on above: Performed By: #### A CETON #### [facility] [address] [place] [address] Dr. Aurelio Leavitt HbA1c (Bld) [Mass fraction] 9.7 % Critically high 4.5-6.2 [facility] Comment on above: Performed By: #### A CETON #### [facility] [address] [place] [address] Dr. Aurelio Leavitt ACETONE SERUMon 11-15-2021 ACETONE Negative Normal NEGATIVE [facility] Comment on above: Performed By: #### A CETON #### [facility] [address] [place] [address] Dr. Aurelio Leavitt CBC AUTO DIFFon 11-15-2021 BASO # 0.1 103/ul Normal 0.0-0.1 [facility] Comment on above: Performed By: #### A CETON #### [facility] [address] [place] [address] Dr. Aurelio Leavitt Basophils/100 WBC (Bld) 0.9 % Normal 0.2-2.0 [facility] Comment on above: Performed By: #### A CETON #### [facility] [address] [place] [address] Dr. Aurelio Leavitt EO # 0.2 103/ul Normal 0.0-0.7 [facility] Comment on above: Performed By: #### A CETON #### [facility] [address] [place] [address] Dr. Aurelio Leavitt Eosinophils/100 WBC (Bld) 1.7 % Normal 0.9-7.0 [facility] Comment on above: Performed By: #### A CETON #### [facility] [address] [place] [address] Dr. Aurelio Leavitt Erythrocyte distribution width (RBC) [Ratio] 13.5 % Normal 11.0-15.0 [facility] Comment on above: Performed By: #### A CETON #### [facility] [address] [place] [address] Dr. Aurelio Leavitt Hematocrit (Bld) [Volume fraction] 44.4 % Normal 36.0-48.0 [facility] Comment on above: Performed By: #### A CETON #### [facility] [address] [address] [address] Aurelio Leavitt Hemoglobin (Bld) [Mass/Vol] 15.4 g/dL Normal 12.0-16.0 [facility] Comment on above: Performed By: #### A CETON #### [facility] [address] [place] [address] Dr. Aurelio Leavitt IG # 0.09 10e3/ul Critically high 0.00-0.03 [facility] Comment on above: Performed By: #### A CETON #### [facility] [address] [place] [address] Dr. Aurelio Leavitt IG % 0.8 % Critically high 0.0-0.5 [facility] Comment on above: Performed By: #### A CETON #### [facility] [address] [place] [address] Dr. Aurelio Leavitt LYMPH # 3.8 103/ul Normal 1.2-3.8 [facility] Comment on above: Performed By: #### A CETON #### [facility] [address] [place] [address] Dr. Aurelio Leavitt Lymphocytes/100 WBC (Bld) 35.1 % Normal 20.5-60.0 [facility] Comment on above: Performed By: #### A CETON #### [facility] [address] [place] [address] Dr. Aurelio Leavitt MANUAL DIFF REQ NO Normal [facility] Comment on above: Performed By: #### A CETON #### [facility] [address] [place] [address] Dr. Aurelio Leavitt MCH (RBC) [Entitic mass] 32.0 pg Normal 26.7-34.0 [facility] Comment on above: Performed By: #### A CETON #### [facility] [address] [place] [address] Dr. Aurelio Leavitt MCHC (RBC) [Mass/Vol] 34.7 g/dL Normal 29.9-35.2 [facility] Comment on above: Performed By: #### A CETON #### [facility] [address] [address] [address] Aurelio Leavitt MCV (RBC) [Entitic vol] 92.1 fL Normal 81.0-99.0 [facility] Comment on above: Performed By: #### A CETON #### [facility] [address] [place] [address] Dr. Aurelio Leavitt MONO # 1.0 103/ul Critically high 0.3-0.8 [facility] Comment on above: Performed By: #### A CETON #### [facility] [address] [place] [address] Dr. Aurelio Leavitt Monocytes/100 WBC (Bld) 9.0 % Normal 1.7-12.0 [facility] Comment on above: Performed By: #### A CETON #### [facility] [address] [place] [address] Dr. Aurelio Leavitt NEUT # 5.6 103/ul Normal 1.4-6.5 [facility] Comment on above: Performed By: #### A CETON #### [facility] [address] [place] [address] Dr. Aurelio Leavitt Neutrophils/100 WBC (Bld) 52.5 % Normal 43.0-75.0 [facility] Comment on above: Performed By: #### A CETON #### [facility] [address] [place] [address] Dr. Aurelio Leavitt Platelet mean volume (Bld) [Entitic vol] 12.3 fL Normal 9.5-13.5 [facility] Comment on above: Performed By: #### A CETON #### [facility] [address] [place] [address] Dr. Aurelio Leavitt PLT 304 103/ul Normal 150-450 [facility] Comment on above: Performed By: #### A CETON #### [facility] [address] [place] [address] Dr. Aurelio Leavitt RBC 4.94 106/ul Normal 4.20-5.40 [facility] Comment on above: Performed By: #### A CETON #### [facility] [address] [place], [place] [address] Dr. Aurelio Leavitt WBC 11.0 103/ul Normal 4.0-11.0 [facility] Comment on above: Performed By: #### A CETON #### [facility] [address] [place], [place] [address] Dr. Aurelio Leaivtt [facility]on SARS-CoV-2 (COVID-19) RNA GABY+probe Ql (Unsp spec) Detected Critically abnormal NOT DETECTED [facility] Comment on above: Result Comment: This test is not yet approved or cleared by the [place] FDA. When there are no FDA-approved or cleared tests available, and other criteria are met, FDA can make tests available under an emergency access mechanism called an Emergency Use Authorization (EUA). The EUA for this test is supported by the Geology Professor of Health and Human Service's declaration that [...] used). Performed By: #### A CETON #### [facility] [address] [place] [address] Dr. Aurelio Leavitt D-DIMERon 11-15-2021 D-DIMER 0.30 mg/L FEU Normal <=0.59 [facility] Comment on above: Performed By: #### A CETON #### [facility] [address] [address] [address] Aurelio Leavitt D-DIMER COMMENTS SEE BELOW Normal [facility] Comment on above: Result Comment: Incr eases [...] and generalized hospitalization. Performed By: #### A JANIE #### [facility] [address] [address] [address] Aurelio Leavitt PROF 14(COMP METB)on 022 Albumin [Mass/Vol] 3.1 g/dL Critically low 3.4-5.0 [facility] Comment on above: Performed By: #### H ANANDA, CMP #### [facility] [address] [place] [address] Dr. Aurelio Leavitt Albumin/Globulin [Mass ratio] 0.7 {ratio} Normal [facility] Comment on above: Performed By: #### H AANNDA, CMP #### [facility] [address] [place] [address] Dr. Aurelio Leavitt ALP [Catalytic activity/Vol] 130 U/L Critically high 46-116 [facility] Comment on above: Performed By: #### H ANANDA, CMP #### [facility] [address] [place] [address] Dr. Aurelio Leavitt Anion gap [Moles/Vol] 16.1 mmol/L Normal [facility] Comment on above: Performed By: #### Paddy MALAVE, CMP #### [facility] [address] [place] [address] Dr. Aurelio Leavitt AST [Catalytic activity/Vol] 11 U/L Critically low 15-37 [facility] Comment on above: Performed By: #### H ANANDA, CMP #### [facility] [address] [place] [address] Dr. Auerlio Leavitt Bilirubin [Mass/Vol] 1.0 mg/dL Normal 0.2-1.0 [facility] Comment on above: Performed By: #### H ANANDA, CMP #### [facility] [address] [place] [address] Dr. Aurelio Leavitt Calcium [Mass/Vol] 7.3 mg/dL Critically low 8.5-10.1 [facility] Comment on above: Performed By: #### H ANANDA, CMP #### [facility] [address] [address] [address] Aurelio Leavitt Chloride [Moles/Vol] 94 mmol/L Critically low 98-107 [facility] Comment on above: Performed By: #### H STROPN, CMP #### [facility] [address] [address] [address] Aurelio Leavitt CO2 [Moles/Vol] 20.6 mmol/L Critically low 21.0-32.0 [facility] Comment on above: Performed By: #### H STROPN, CMP #### [facility] [address] [address] [address] Aurelio Leavitt Creatinine [Mass/Vol] 0.57 mg/dL Normal 0.55-1.02 [facility] Comment on above: Performed By: #### H STROPN, CMP #### [facility] [address] [address] [address] Aurelio Leavitt EGFR-AF SWEDISH >60 Normal >=[address] [facility] Comment on above: Performed By: #### H STROPN, CMP #### [facility] [address] [address] [address] Aurelio Leavitt EGFR-NON AF SWEDISH >60 Normal >=60 [facility] Comment on above: Performed By: #### H STROPN, CMP #### [facility] [address] [address] [address] Aurelio Leavitt Globulin (S) [Mass/Vol] 4.2 g/dL Normal [facility] Comment on above: Performed By: #### H GUSPN, CMP #### [facility] [address] [address] [address] Aurelio Leavitt Glucose [Mass/Vol] 462 mg/dL Critically high 74-106 [facility] Comment on above: Performed By: #### H STROPN, CMP #### [facility] [address] [address] [address] Aurelio Leavitt Potassium [Moles/Vol] 4.7 mmol/L Normal 3.5-5.1 [facility] Comment on above: Performed By: #### H STROPN, CMP #### [facility] [address] [address] [address] Aurelio Leavitt Protein [Mass/Vol] 7.3 g/dL Normal 6.4-8.2 [facility] Comment on above: Performed By: #### H GUSPN, CMP #### [facility] [address] [address] [address] Aurelio Leavitt Sodium [Moles/Vol] 126 mmol/L Critically low 136-145 [facility] Comment on above: Performed By: #### H GUSPN, CMP #### [facility] [address] [address] [address] Aurelio Leavitt Urea nitrogen [Mass/Vol] 14.0 mg/dL Normal 7.0-18.0 [facility] Comment on above: Performed By: #### H GUSPN, CMP #### [facility] [address] [address] [address] Aurelio Leavitt Urea nitrogen/Creatinine [Mass ratio] 24.6 mg/mg Normal [facility] Comment on above: Performed By: #### H GUSPN, CMP #### [facility] [address] [address] [address] Aurelio Leavitt TROPONIN, HIGH SENSITIVITYon 11-15-2021 HSTROP 5.3 pg/mL Normal 4.0-51.3 [facility] Comment on above: Result Comment: CUT- OFF POINTS HAVE BEEN ESTABLISHED BASED ON THE FOURTH UNIVERSAL DEFINITIONS OF MYOCARDIAL INFARCTION. THE UPPER REFERENCE LIMIT (URL) OF TROPONIN, DEFINED THE 99TH PERCENTILE OF cTnI DISTRIBUTION IN A REFERENCE POPULATION, HAS BEEN CONFIRMED THE DECISION THRESHOLD FOR KS DIAGNOSIS. Performed By: #### H GUSPN, CMP #### [facility] [address] [place] [address] Dr. Aurelio Leavitt XR CHEST 1 Von [...] by: CORKY PINTO Date: 2021-11-15 01:06 [facility] ID[facility] [id number] Author: RT Jb(R) Service: ? Author Type: [...] RT Jb(R) March 24, 2021 6:37 AM [facility] MRI CERVICAL SPINE WO IVCONo n 03-24-2021 MRI CERVICAL SPINE WO IVCON * * *Final Report* * * DATE OF EXAM: Mar 24 2021 6:50AM [facility] 0297 - MRI CERVICAL SPINE WO [...] is taken as C2-3. Structural anomalies: None. Sole Rounder: VALENTINE Transcribe Date/Time: Mar 24 2021 7:36A Dictated by : LITTLE HERNANDEZ MD This examination was interpreted and the report reviewed and electronically signed by: LITTLE HERNANDEZ MD on Mar 24 2021 7:40AM EST [id number] Normal [facility] CERVICAL SPINE 2 OR 3 [facility] 12-16-2019 CERVICAL SPINE 2 OR 3 [facility] Department of Radiology [address] [place] [id number] Patient Name: JACQUELYN ZENG : 1975 Sex: F Age: Race: White Pt. Location: Patient Status: O Ordered Date: 12/16/2019 10:10:00 AM Completed Date: 12/16/2019 10:20 AM Requesting Provider: BENJAMIN CUMMINS Attending Provider: BENJAMIN CUMMINS Report Copy To: Signs & Symptoms: M54.12 Radiculopathy, cervical region I10 History: [place] Comments: Evaluate Exam: CERVICAL SPINE 2 OR 3 VWS EXAMINATION: CERVICAL SPINE 2 OR 3 VWS [...] identified. Electronically signed: Sha Gross. Transcribed by: [email or web address], User Resident: Electronically Signed by: SHA GROSS @ 12/16/2019 11:44 AM Normal [facility] Comment on above: Order Comment: Evalu ate MRI KNEE WO CONTRAST LEFTon 12-07-2019 MRI KNEE WO CONTRAST [facility] Department of Radiology [address] [place] [id number] Patient Name: JACQUELYN ZENG : 1975 Sex: F Age: Race: White Pt. Location: Patient Status: Ordered Date: 11/30/2019 1:55:00 PM Completed Date: 12/07/2019 08:52 AM Requesting Provider: BENJAMIN CUMMINS Attending Provider: Report Copy To: Signs & Symptoms: M25.569 Pain in unspecified knee I10 History: [place], PHONE:[phone],* NEEDS ORTHO F/U APPT. NO METAL Workers comp is approved with this diagnosis, cannot change it. [facility] Approved for CPT 11743 Claim#[id number] Valid 11/27/19-12/11/19 12/01/19 *SLA Comments: Please Evaluate [...] knee. Electronically signed: Michael Thayer. Transcribed by: [email or web address], User Resident: Electronically Signed by: MICHAEL THAYER @ 12/07/2019 11:04 AM Normal [facility] Comment on above: Order Comment: Pleas e Evaluate MRI SHOULDER WO CONTRAST LEF Ton 12-07-2019 MRI SHOULDER WO CONTRAST LEFT [facility] Department of Radiology [address] [place] [phone] Patient Name: JACQUELYN ZENG : 1975 Sex: F Age: Race: White Pt. Location: 84 Patient Status: Ordered Date: 11/30/2019 1:55:00 PM Completed Date: 12/07/2019 08:51 AM Requesting Provider: BENJAMIN CUMMINS Attending Provider: Report Copy To: Signs & Symptoms: M25.512 Pain in left shoulder I10 History: [place], PHONE:[phone],* NEEDS ORTHO F/U APPT. NO METAL [facility] Approved for CPT 68163 Claim#[id number] Valid 11/27/19-12/11/19 12/01/19 *SLA Comments: Please Evaluate [...] ligament. Electronically signed: Michael Thayer. Transcribed by: [email or web address], User Resident: Electronically Signed by: MICHAEL THAYER @ 12/07/2019 10:56 AM Normal [facility] Comment on above: Order Comment: Pleas e Evaluate KNEE LEFT 4VWSon 10-21-2019 KNEE LEFT 4VWS [facility] Department of Radiology [address] [place] [id number] Patient Name: JACQUELYN ZENG : 1975 Sex: F Age: Race: White Pt. Location: 84 Patient Status: Ordered Date: 10/21/2019 9:50:00 AM Completed Date: 10/21/2019 10:05 AM Requesting Provider: BENJAMIN CUMMINS Attending Provider: Report Copy To: Signs & Symptoms: M25.569 Pain in unspecified knee I10 History: [place] Comments: Views (X-RAY, KNEE): AP, Lateral, Tunnel, Hoover , Weight Bearing?: Y Exam: KNEE LEFT 4VWS KNEE LEFT 4VWS 10/21/2019 10:05 AM CLINICAL INDICATIONS: M25.569 Pain in unspecified knee I10 left knee pain, recent falls and injury TECHNOLOGIST COMMENTS: Patient complains of left knee pain. Patient states history of several recent falls. QUESTION FOR THE RADIOLOGIST: Views (X-RAY, KNEE): AP, Lateral, Tunnel, Hoover , Weight Bearing?: Y PROTOCOL: AP,Lateral,Tunnel and Tangential views were obtained. COMPARISON: None FINDINGS: There is no joint effusion fracture or dislocation. Mineralization and alignment is within normal limits. Mild lateral patellar tilt. Mild early marginal osteophyte formation. IMPRESSION: Early marginal osteophyte formation without acute ossific normality. Electronically signed: Jessica Garcia. Transcribed by: [email or web address], User Resident: Electronically Signed by: JESSICA GARCIA @ 10/21/2019 11:11 AM Normal [facility] Comment on above: Order Comment: Views (X-RAY, KNEE): AP, Lateral, Tunnel, Hoover , Weight Bearing?: Y SHOULDER LEFTon 10-21-2019 SHOULDER LEFT [facility] Department of Radiology [address] [place] [phone] Patient Name: JACQUELYN ZENG : 1975 Sex: F Age: Race: White Pt. Location: 84 Patient Status: Ordered Date: 10/21/2019 9:50:00 AM Completed Date: 10/21/2019 10:03 AM Requesting Provider: BENJAMIN CUMMINS Attending Provider: Report Copy To: Signs & Symptoms: M25.512 Pain in left shoulder I10 History: [place] Comments: Views (X-RAY, SHOULDER): AP, Grashey, Y-Lateral, [...] Electronically signed: Chepe Espinoza M.D.. Transcribed by: [email or web address], User Resident: Electronically Signed by: CHEPE ESPINOZA @ 10/21/2019 11:59 AM Normal [facility] Comment on above: Order Comment: Views (X-RAY, SHOULDER): AP, Grashey, Y-Lateral, [place] POC STREP SCREENon 9 STREP POC Negative Normal NEG [facility] Comment on above: Result Comment: Perf ormed in Emergency Department. Performed By: #### 3 0211 #### [facility] [address] Vital Signs Date Time Vital Sign Value Performing Clinician Facility 12-23-2024 11:48-0400 Body height 175.3 cm Olu Arce MD Work Phone[facility] 12-23-2024 11:48-0400 Body mass index (BMI) [Ratio] 31.9 kg/m2 Olu Arce MD Work Phone: [facility] 12-23-2024 11:48-0400 Body weight 97.98 kg Olu Arce MD Work Phone: [facility] 12-23-2024 11:48-0400 Diastolic blood pressure 62 mm[Hg] Olu Arce MD Work Phone: [facility] 12-23-2024 11:48-0400 Systolic blood pressure 130 mm[Hg] Olu Arce MD Work Phone: [facility] 12-04-2024 08:53-0400 Body temperature 97.5 [degF] Kinga Froimson 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 Phone: [facility] 12-04-2024 08:53-0400 Diastolic blood pressure 71 mm[Hg] Kinga Froimson 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 Phone: [facility] 12-04-2024 08:53-0400 Heart rate 98 /min Kinga Froimson 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 Phone: [facility] 12-04-2024 08:53-0400 Respiratory rate 21 /min Kinga Froimson 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 Phone: [facility] 12-04-2024 08:53-0400 Systolic blood pressure 116 mm[Hg] Kinga Froimson 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 Phone: [facility] 10-22-2024 08:30-0400 Body mass index (BMI) [Ratio] 31.9 kg/m2 Olu Arce MD Work Phone: [facility] 10-22-2024 08:30-0400 Body weight 97.98 kg Olu Arce MD Work Phone: [facility] 10-12-2024 08:25-0400 Body height 175.3 cm Josh Ochoa MD Work Phone: [facility] 10-12-2024 08:25-0400 Body mass index (BMI) [Ratio] 32.64 kg/m2 Josh Ochoa MD Work Phone: [facility] 10-12-2024 08:25-0400 Body temperature 97.81 [degF] Josh Ochoa MD Work Phone: [facility] 10-12-2024 08:25-0400 Body weight 100.25 kg Josh Ochoa MD Work Phone: [facility] 10-12-2024 08:25-0400 Diastolic blood pressure 66 mm[Hg] Josh Ochoa MD Work Phone: [facility] 10-12-2024 08:25-0400 Heart rate 61 /min Josh Ochoa MD Work Phone: [facility] 10-12-2024 08:25-0400 Respiratory rate 22 /min Josh Ochoa MD Work Phone: [facility] 10-12-2024 08:25-0400 SaO2% (BldA) [Mass fraction] 90 % Josh Ochoa MD Work Phone: [facility] 10-12-2024 08:25-0400 Systolic blood pressure 134 mm[Hg] Josh Ochoa MD Work Phone: [facility] 10-08-2024 10:55-0400 Diastolic blood pressure 90 mm[Hg] Jessee Billy MD Work Phone: [facility] 10-08-2024 10:55-0400 Systolic blood pressure 140 mm[Hg] Jessee Billy MD Work Phone: [facility] 10-08-2024 10:27-0400 Body height 175.3 cm Jessee Billy MD Work Phone: [facility] 10-08-2024 10:27-0400 Body mass index (BMI) [Ratio] 31.6 kg/m2 Jessee Billy MD Work Phone: [facility] 10-08-2024 10:27-0400 Body temperature 97 [degF] Jessee Billy MD Work Phone: [facility] 10-08-2024 10:27-0400 Body weight 97.07 kg Jessee Billy MD Work Phone: [facility] 10-08-2024 10:27-0400 Heart rate 94 /min Jessee Billy MD Work Phone: [facility] 09-11-2024 11:41-0400 Diastolic blood pressure 68 mm[Hg] Kinga Froimson 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 Phone: [facility] 09-11-2024 11:41-0400 Heart rate 100 /min Kinga Froimson 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 Phone: [facility] 09-11-2024 11:41-0400 Systolic blood pressure 121 mm[Hg] Kinga Froimson 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 Phone: [facility] 09-10-2024 08:14-0400 Body mass index (BMI) [Ratio] 31.16 kg/m2 Olu Arce MD Work Phone: [facility] 09-10-2024 08:14-0400 Body weight 95.71 kg Olu rAce MD Work Phone: [facility] 09-10-2024 08:14-0400 Diastolic blood pressure 82 mm[Hg] Olu Arce MD Work Phone: [facility] 09-10-2024 08:14-0400 Systolic blood pressure 126 mm[Hg] Olu Arce MD Work Phone: [facility] 08-10-2024 09:24-0400 Body height 175.3 cm Josh Ochoa MD Work Phone: [facility] 08-10-2024 09:24-0400 Body mass index (BMI) [Ratio] 32.19 kg/m2 Josh Ocoha MD Work Phone: [facility] 08-10-2024 09:24-0400 Body temperature 97.11 [degF] Josh Ochoa MD Work Phone: [facility] 08-10-2024 09:24-0400 Body weight 98.88 kg Josh Ochoa MD Work Phone: [facility] 08-10-2024 09:24-0400 Diastolic blood pressure 52 mm[Hg] Josh Ochoa MD Work Phone: [facility] 08-10-2024 09:24-0400 Heart rate 107 /min Josh Ochoa MD Work Phone: [facility] 08-10-2024 09:24-0400 Respiratory rate 22 /min Josh Ochoa MD Work Phone: [facility] 08-10-2024 09:24-0400 SaO2% (BldA) [Mass fraction] 91 % Josh Ochoa MD Work Phone: [facility] 08-10-2024 09:24-0400 Systolic blood pressure 112 mm[Hg] Josh Ochoa MD Work Phone: [facility] 05-11-2024 08:52-0500 Body height 175.3 cm Josh Ochoa MD Work Phone: [facility] 05-11-2024 08:52-0500 Body mass index (BMI) [Ratio] 33.82 kg/m2 Josh Ochoa MD Work Phone: [facility] 05-11-2024 08:52-0500 Body temperature 95.9 [degF] Josh Ochoa MD Work Phone: [facility] 05-11-2024 08:52-0500 Body weight 103.87 kg Josh Ochoa MD Work Phone: [facility] 05-11-2024 08:52-0500 Diastolic blood pressure 74 mm[Hg] Josh Ochoa MD Work Phone: [facility] 05-11-2024 08:52-0500 Heart rate 105 /min Josh Ochoa MD Work Phone: [facility] 05-11-2024 08:52-0500 Respiratory rate 22 /min Josh Ochoa MD Work Phone: [facility] 05-11-2024 08:52-0500 SaO2% (BldA) [Mass fraction] 92 % Josh Ochoa MD Work Phone: [facility] 05-11-2024 08:52-0500 Systolic blood pressure 138 mm[Hg] Josh Ochoa MD Work Phone: [facility] 04-14-2024 10:47-0500 Diastolic blood pressure 72 mm[Hg] Infusion 10 Work Phone: [facility] 04-14-2024 10:47-0500 Heart rate 92 /min Infusion 10 Work Phone: [facility] 04-14-2024 10:47-0500 Systolic blood pressure 110 mm[Hg] Infusion 10 Work Phone: [facility] 04-13-2024 11:16-0500 Diastolic blood pressure 68 mm[Hg] Infusion 5 Work Phone: [facility] 04-13-2024 11:16-0500 Heart rate 102 /min Infusion 5 Work Phone: [facility] 04-13-2024 11:16-0500 Systolic blood pressure 125 mm[Hg] Infusion 5 Work Phone: [facility] 04-08-2024 11:48-0500 Diastolic blood pressure 72 mm[Hg] Infusion 7 Work Phone: [facility] 04-08-2024 11:48-0500 Heart rate 87 /min Infusion 7 Work Phone: [facility] 04-08-2024 11:48-0500 Systolic blood pressure 110 mm[Hg] Infusion 7 Work Phone: [facility] 04-08-2024 08:40-0500 Body temperature 97.5 [degF] Kinga Froimson 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 Phone: [facility] 04-08-2024 08:40-0500 Diastolic blood pressure 75 mm[Hg] Kinga Froimson 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 Phone: [facility] 04-08-2024 08:40-0500 Heart rate 70 /min Kinga Froimson 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 Phone: [facility] 04-08-2024 08:40-0500 Systolic blood pressure 126 mm[Hg] Kinga Froimson 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 Phone: [facility] 02-26-2024 09:06-0400 Body height 175.3 cm Sara Kramer DIRECTOR OF DIAGNOSTIC IMAGING Work Phone: [facility] 02-26-2024 09:06-0400 Body mass index (BMI) [Ratio] 34.7 kg/m2 Sara Kramer DIRECTOR OF DIAGNOSTIC IMAGING Work Phone: [facility] 02-26-2024 09:06-0400 Body weight 106.59 kg Sara Palmeri DIRECTOR OF DIAGNOSTIC IMAGING Work Phone: [facility] 02-26-2024 09:06-0400 Diastolic blood pressure 72 mm[Hg] Sara Palmeri DIRECTOR OF DIAGNOSTIC IMAGING Work Phone: [facility] 02-26-2024 09:06-0400 Systolic blood pressure 110 mm[Hg] Sara Palmeri DIRECTOR OF DIAGNOSTIC IMAGING Work Phone: [facility] 01-08-2024 10:24-0400 Body height 175.26 cm MD Josh Ochoa Work Phone: [facility] 01-08-2024 10:24-0400 Body weight 109.76 kg MD Josh Ochoa Work Phone: [facility] 06-20-2023 14:12-0500 Body height 175.3 cm Josh Ochoa MD Work Phone: [facility] 06-20-2023 14:12-0500 Body mass index (BMI) [Ratio] 37.07 kg/m2 Josh Ochoa MD Work Phone: [facility] 06-20-2023 14:12-0500 Body temperature 97.11 [degF] Josh Ochoa MD Work Phone: [facility] 06-20-2023 14:12-0500 Body weight 113.85 kg Josh Ochoa MD Work Phone: [facility] 06-20-2023 14:12-0500 Diastolic blood pressure 78 mm[Hg] Josh Ochoa MD Work Phone: [facility] 06-20-2023 14:12-0500 Heart rate 100 /min Josh Ochoa MD Work Phone: [facility] 06-20-2023 14:12-0500 SaO2% (BldA) [Mass fraction] 96 % Josh Ochoa MD Work Phone: [facility] 06-20-2023 14:12-0500 Systolic blood pressure 140 mm[Hg] Josh Ochoa MD Work Phone: [facility] 01-02-2023 08:39-0400 Diastolic blood pressure 76 mm[Hg] 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 Phone: [facility] 01-02-2023 08:39-0400 Heart rate 97 /min 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 Phone: [facility] 01-02-2023 08:39-0400 Systolic blood pressure 127 mm[Hg] 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 Phone: [facility] 09-06-2022 16:05-0400 Diastolic blood pressure 81 mm[Hg] MD Josh Ochoa Work Phone: [facility] 09-06-2022 16:05-0400 Heart rate 78 /min MD Josh Ochoa Work Phone: [facility] 09-06-2022 16:05-0400 Respiratory rate 16 /min MD Josh Ochoa Work Phone: [facility] 09-06-2022 16:05-0400 SaO2% (BldA) [Mass fraction] 93 % MD Josh Ochoa Work Phone: [facility] 09-06-2022 16:05-0400 Systolic blood pressure 129 mm[Hg] MD Josh Ochoa Work Phone: [facility] 09-06-2022 15:35-0400 Body temperature 98.4 [degF] MD Josh Ochoa Work Phone: [facility] 09-06-2022 15:05-0400 Inhaled oxygen flow rate 8 L/min MD Josh Ochoa Work Phone: [facility] 09-06-2022 13:23-0400 Body height 175.26 cm MD Josh Ochoa Work Phone: [facility] 09-06-2022 13:23-0400 Body mass index (BMI) [Ratio] 33.2 kg/m2 MD Josh Ochoa Work Phone: [facility] 09-06-2022 13:23-0400 Body weight 102.05 kg MD Josh Ochoa Work Phone: [facility] 04-17-2022 10:11-0500 Body height 175.3 cm Kinga Fred 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 Phone: [facility] 04-17-2022 10:11-0500 Body weight 91.63 kg Kinga Froimson 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 Phone: [facility] 04-17-2022 10:11-0500 Diastolic blood pressure 76 mm[Hg] Kinga Froimson 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 Phone: [facility] 04-17-2022 10:11-0500 Heart rate 103 /min Kinga Froimson 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 Phone: [facility] 04-17-2022 10:11-0500 Systolic blood pressure 131 mm[Hg] Kinga Froimson 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 Phone: [facility] 01-09-2022 15:11-0400 Body height 175.3 cm Kinga Froimson 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 Phone: [facility] [place] 01-09-2022 15:11-0400 Body weight 97.07 kg Kinga Froimson 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 Phone: [facility] [place] 01-09-2022 15:11-0400 Diastolic blood pressure 74 mm[Hg] Kinga Froimson 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 Phone: [facility] [place] 01-09-2022 15:11-0400 Heart rate 92 /min Kinga Froimson 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 Phone: [facility] [place] 01-09-2022 15:11-0400 Respiratory rate 22 /min Kinga Froimson 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 Phone: [facility] [place] 01-09-2022 15:11-0400 Systolic blood pressure 137 mm[Hg] Kinga Froimson 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 Phone: [facility] [place] 12-31-2021 13:00-0400 Body height 170.18 cm Vianney Collins Other [employer] Other 12-31-2021 13:00-0400 Body mass index (BMI) [Ratio] 33.51 kg/m2 Vianney Recinosmond Other [employer] Other 12-31-2021 13:00-0400 Body temperature 97.5 [degF] Vianney Recinosmond Other [employer] Other 12-31-2021 13:00-0400 Body weight 97.07 kg Vianney Recinosmond Other [employer] Other 12-31-2021 13:00-0400 Diastolic blood pressure 70 mm[Hg] Vianney Recinosmond Other [employer] Other 12-31-2021 13:00-0400 Respiratory rate 18 /min Vianney Collins Other [employer] Other 12-31-2021 13:00-0400 SaO2% (BldA) [Mass fraction] 97 % Vianney Collins Other [employer] Other 12-31-2021 13:00-0400 Systolic blood pressure 122 mm[Hg] Vianney Collins Other [employer] Other 12-09-2021 10:10-0400 Body height Chanel Workman Other [employer] Other 12-09-2021 10:10-0400 Body mass index (BMI) [Ratio] 33.67 kg/m2 Chanel Workman Other [employer] Other 12-09-2021 10:10-0400 Body temperature 98 [degF] Chanel Workman Other [employer] Other 12-09-2021 10:10-0400 Body weight 97.52 kg Chanel Ji Other [employer] Other 12-09-2021 10:10-0400 Diastolic blood pressure 79 mm[Hg] Chanel Workman Other [employer] Other 12-09-2021 10:10-0400 Respiratory rate 20 /min Chanel Workman Other [employer] Other 12-09-2021 10:10-0400 SaO2% (BldA) [Mass fraction] 94 % Chanel Workman Other [employer] Other 12-09-2021 10:10-0400 Systolic blood pressure 132 mm[Hg] Chanel Ji Other [employer] Other Encounters Encounter Date Encounter Type Care Provider Facility Start: 01-18-2025 End: 01-18-2025 Telephone encounter Kinga Fred KARIMI Work Phone: Neurology Comment on above: Forms (c9) Start: 01-12-2025 End: 01-12-2025 ambulatory FARZAD DUOMNT [facility] Start: 01-04-2025 End: 01-04-2025 ambulatory JOSE FRANCISCO MARR [facility] Start: 12-31-2024 End: 12-31-2024 Clinisync Result Encounter Josh Ochoa MD Work Phone: [facility] External Department Unsolicited Start: 12-31-2024 End: 12-31-2024 Clinisync Result Encounter Josh Ochoa MD Work Phone: [facility] External Department Unsolicited Start: 12-23-2024 End: 12-23-2024 Bamboo flowsheet Olu Arce MD Work Phone: [facility] Start: 12-23-2024 End: 12-23-2024 Bamboo flowsheet Olu Arce MD Work Phone: [facility] Start: 12-23-2024 End: 12-23-2024 ambulatory OLU ARCE Not Available Comment on above: Trochanteric bursiti s of both hips (Primary Dx); Radiculopathy, cervical region; Lumbar spondylosis; Cervical spondylosis; Other nerve root and plexus disorders; Nerve root and plexus disorder, unspecified Start: 12-04-2024 End: 12-04-2024 Refill Josh Ochoa MD Work Phone: [facility] Comment on above: Type 2 diabetes neli itus with polyneuropathy (HCC); Generalized anxiety disorder Intractable chronic migraine without aura and without status migrainosus (Primary Dx); Chronic daily headache Start: 11-10-2024 End: 11-10-2024 Refill Olu Arce MD Work Phone: [facility] Comment on above: Lumbar spondylosis; Cervical spondylosis; Other nerve root and plexus disorders Start: 11-05-2024 ambulatory [facility] Facility[facility] Start: 10-22-2024 End: 10-22-2024 Bamboo flowsheet Olu Arce MD Work Phone: [facility] Start: 10-22-2024 End: 10-22-2024 Bamboo flowsheet Olu Arce MD Work Phone: [facility] Start: 10-22-2024 End: 10-22-2024 Clinical Support Olu Arce MD Work Phone: [facility] Comment on above: Trochanteric bursiti s of both hips (Primary Dx); Nerve root and plexus disorder, unspecified Start: 10-12-2024 End: 10-12-2024 Bamboo flowsheet Josh Ochoa MD Work Phone: [facility] Start: 10-12-2024 End: 10-12-2024 Bamboo flowsheet Josh Ochoa MD Work Phone: [facility] Start: 10-12-2024 End: 10-12-2024 Office outpatient [...] End: 10-12-2024 Social Work Dc Levy Manuel [facility] Work Phone: [facility] Comment on above: Major depressive dis order, single episode, severe without psychotic features (HCC) (CMS/HCC); Generalized anxiety disorder (CMS/HCC) Start: 10-09-2024 End: 10-12-2024 Refill Josh Ochoa MD Work Phone: [facility] Comment on above: Generalized anxiety disorder (CMS/HCC) Start: 10-08-2024 End: 10-08-2024 Clinisync Result Encounter Generic External Data Provider [facility] External Department Unsolicited Start: 10-08-2024 End: 10-08-2024 Clinisync Result Encounter Generic External Data Provider [facility] External Department Unsolicited Start: 10-08-2024 End: 10-08-2024 [facility] Start: 10-08-2024 End: 10-08-2024 Subsequent hospital visit by physician Jessee Billy MD Work Phone: [facility] Comment on above: Lumbosacral spondylo sis without myelopathy Start: 10-08-2024 End: 10-08-2024 [facility] Start: 10-08-2024 End: 10-08-2024 Subsequent hospital visit by physician Fabricio Pain Procedure C-Arm [facility] Comment on above: Pain Start: 09-22-2024 End: 09-22-2024 [facility] Start: 09-16-2024 End: 09-18-2024 ambulatory JESSEE BILLY [facility] Start: 09-16-2024 End: 09-18-2024 Subsequent hospital visit by physician Jessee Billy MD Work Phone: [facility] Rad[facility] Comment on above: Localized osteoarthr itis of left shoulder Cervical spondylosis without myelopathy; Lumbosacral spondylosis without myelopathy Start: 09-16-2024 End: 09-22-2024 Clinisync Result Encounter Generic External Data Provider [facility] External Department Unsolicited Start: 09-16-2024 End: 09-22-2024 Clinisync Result Encounter Generic External Data Provider [facility] External Department Unsolicited Start: 09-11-2024 End: 09-11-2024 ambulatory KINGAHER MENDES Facility:[facility] Start: 09-11-2024 End: 09-11-2024 Patient encounter procedure Kinga Fred 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 Phone: Neurology Comment on above: Intractable chronic migraine without aura and without status migrainosus (Primary Dx); Chronic daily headache Start: 09-10-2024 End: 09-10-2024 Bamboo flowsheet Olu Arce MD Work Phone: [facility] Start: 09-10-2024 End: 09-10-2024 Bamboo flowsheet Olu Arce MD Work Phone: [facility] Start: 09-10-2024 End: 09-10-2024 Clinical Support Olu Arce MD Work Phone: [facility] Comment on above: Trochanteric bursiti s of both hips (Primary Dx); Lumbar spondylosis; Lumbar radiculopathy; Nerve root and plexus disorder, unspecified Start: 09-07-2024 End: 09-07-2024 Bamboo flowsheet Dc Jackson [facility] Work Phone: [facility] Start: 09-07-2024 End: 09-07-2024 Bamboo flowsheet Dc Jackson [facility] Work Phone: [facility] Start: 09-07-2024 End: 09-07-2024 Social Work Dc Jacskon [facility] Work Phone: [facility] Comment on above: Major depressive dis order, single episode, severe without psychotic features (HCC) (CMS/HCC); Generalized anxiety disorder (CMS/HCC); Panic disorder (CMS/HCC) Start: 08-27-2024 ambulatory Elmo Levy Solano Facility:[facility] Start: 08-13-2024 End: 08-13-2024 Social Work Dc Jackson [facility] Work Phone: [facility] Comment on above: Major depressive dis order, single episode, severe without psychotic features (HCC) (CMS/HCC); Generalized anxiety disorder (CMS/HCC) Start: 08-13-2024 End: 08-13-2024 Bamboo flowsheet Dc Jackson [facility] Work Phone: [facility] Start: 08-13-2024 End: 08-13-2024 Bamboo flowsheet Dc Jackson [facility] Work Phone: [facility] Start: 08-12-2024 End: 08-12-2024 Nam Ochoa MD Work Phone: [facility] Comment on above: Generalized anxiety disorder (CMS/HCC) Start: 08-12-2024 End: 08-12-2024 ambulatory [facility] Start: 08-10-2024 End: 08-10-2024 Bamboo flowsheet Josh Ochoa MD Work Phone: [facility] Start: 08-10-2024 End: 08-10-2024 Bamboo flowsheet Josh Ochoa MD Work Phone: [facility] Start: 08-10-2024 End: 08-10-2024 Patient encounter procedure Josh Ochoa MD Work Phone: [facility] Work Phone: Start: 08-10-2024 End: 08-10-2024 Postop follow up visit related to original px Josh Ochoa MD Work Phone: [facility] Comment on above: Medicare annual well ness [...] Unsolicited Start: 07-20-2024 End: 07-20-2024 ambulatory JACQUELYN HEDRICKEY Not Available Start: 07-16-2024 End: 07-16-2024 Bamboo flowsheet Olu Arce MD Work Phone: [facility] Start: 07-16-2024 End: 07-16-2024 Bamboo flowsheet Olu Arce MD Work Phone: [facility] Start: 07-16-2024 End: 07-16-2024 ambulatory OLU ARCE Not Available Start: 07-06-2024 End: 07-06-2024 Bamboo flowsheet Dc Jackson [facility] Work Phone: [facility] Start: 07-06-2024 End: 07-06-2024 Bamboo flowsheet Dc Jackson [facility] Work Phone: [facility] Start: 07-06-2024 End: 07-06-2024 Social Work Dc Jackson [facility] Work Phone: [facility] Comment on above: Major depressive dis order, single episode, severe without psychotic features (HCC) (CMS/HCC); Generalized anxiety disorder (CMS/HCC); Panic disorder (CMS/HCC) Start: 06-29-2024 End: 06-29-2024 Telephone encounter Kinga Ivankimmie [employer] SALES COUNTER MANAGER Work Phone: Neurology Comment on above: Referral Request Start: 06-23-2024 End: 06-23-2024 ambulatory JOSE FRANCISCO MARR [facility] Start: 06-02-2024 End: 06-02-2024 Nam Arce MD Work Phone: [facility] Comment on above: Lumbar spondylosis; Cervical spondylosis; Other nerve root and plexus disorders Generalized anxiety disorder (CMS/HCC); Hyperlipidemia, unspecified (CMS/HCC) Start: 05-18-2024 End: 05-18-2024 Bamboo [employer] Dc Jackson [facility] Work Phone: [facility] Start: 05-18-2024 End: 05-18-2024 [employer] Dckhalida Jackson [facility] Work Phone: [facility] Start: 05-18-2024 End: 05-18-2024 Social Work Dckhalida Jackson [facility] Work Phone: [facility] Comment on above: Major depressive dis order, single episode, severe without psychotic features (HCC) (CMS/HCC); Generalized anxiety disorder (CMS/HCC); Panic disorder (CMS/HCC) Start: 05-11-2024 End: 05-11-2024 Bamboo flowsheet Josh Ochoa MD Work Phone: [facility] Start: 05-11-2024 End: 05-11-2024 Bamboo flowsheet Josh Ochoa MD Work Phone: [facility] Start: 05-11-2024 End: 05-11-2024 Office outpatient visit 25 minutes Josh Ochoa MD Work Phone: [facility] Comment on above: Type 2 diabetes neli [...] 04-20-2024 Refill Carolynn Reyes NP Work Phone: [facility] Start: 04-14-2024 End: 04-15-2024 Patient [...] Start: 04-08-2024 End: 04-08-2024 Patient encounter procedure 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 APRN.[employer] SALES COUNTER MANAGER Work Phone: Neurology Comment on above: Intractable chronic migraine without aura and without status migrainosus (Primary Dx); Chronic daily headache; Status migrainosus Start: 04-06-2024 End: 04-06-2024 ambulatory JOSE FRANCISCO MARR [facility] Start: 03-31-2024 End: 03-31-2024 Refill Josh Ochoa MD Work Phone: [facility] Comment on above: Generalized anxiety disorder (CMS/HCC); ADD (attention deficit disorder) without hyperactivity Start: 03-30-2024 End: 04-06-2024 Telephone encounter 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 [employer] SALES COUNTER MANAGER Work Phone: Neurology Comment on above: Botox Injection Start: 03-30-2024 End: 03-30-2024 ambulatory SARA KRAMER Not Available Start: 03-30-2024 End: 03-30-2024 Phys/qhp telephone evaluation 11-20 min Sara Kramer DIRECTOR OF DIAGNOSTIC IMAGING Work Phone: [facility] 210 Comment on above: Intractable chronic migraine without aura and without status migrainosus (CMS/HCC) (Primary Dx); Cervical spondylosis; Lumbar spondylosis; Complex regional pain syndrome type 1, affecting unspecified site; Trochanteric bursitis of both hips Start: 03-25-2024 End: 03-25-2024 Telephone encounter Olu Arce MD Work Phone: [facility] 210 Start: 03-24-2024 End: 03-24-2024 Bamboo flowsheet Dc Jackson [facility] Work Phone: [facility] Start: 03-24-2024 End: 03-24-2024 Bamboo flowsheet Dc Jackson [facility] Work Phone: [facility] Start: 03-24-2024 End: 03-24-2024 Social Work Dc Jackson [facility] Work Phone: [facility] Comment on above: Major depressive dis order, single episode, severe without psychotic features (HCC) (CMS/HCC); Generalized anxiety disorder (CMS/HCC); Panic disorder (CMS/HCC); Insomnia, unspecified type Start: 02-26-2024 End: 02-26-2024 Bamboo flowsheet Sara Kramer DIRECTOR OF DIAGNOSTIC IMAGING Work Phone: [facility] Start: 02-26-2024 End: 02-26-2024 Bamboo flowsheet Sara Kramer DIRECTOR OF DIAGNOSTIC IMAGING Work Phone: [facility] Start: 02-26-2024 End: 02-26-2024 Clinical Support Sara Kramer DIRECTOR OF DIAGNOSTIC IMAGING Work Phone: [facility] 210 Comment on above: Trochanteric bursiti s of both hips (Primary Dx); Cervical paraspinal muscle spasm; Complex regional pain syndrome type 1, affecting unspecified site; Migraine without aura and without status migrainosus, not intractable (CMS/HCC); Lumbar spondylosis; Cervical spondylosis; Other nerve root and plexus disorders Start: 02-17-2024 End: 02-17-2024 Bamboo flowsheet Dc Jackson [facility] Work Phone: [facility] Start: 02-17-2024 End: 02-17-2024 Bamboo flowsheet Dc Jackson [facility] Work Phone: [facility] Start: 02-17-2024 End: 02-17-2024 Social Work Dc Jackson [facility] Work Phone: [facility] Comment on above: Major depressive dis order, single episode, severe without psychotic features (HCC) (CMS/HCC); Generalized anxiety disorder (CMS/HCC); Panic disorder (CMS/HCC) Start: 02-12-2024 End: 02-12-2024 ambulatory JOSE FRANCISCO MARR [facility] Start: 02-07-2024 End: 02-07-2024 Clinisync Result Encounter Generic External Data Provider [facility] External Department Unsolicited Start: 02-07-2024 End: 02-07-2024 Clinisync Result Encounter Generic External Data Provider [facility] External Department Unsolicited Start: 02-07-2024 End: 02-07-2024 ambulatory [facility] Start: 01-23-2024 End: 01-23-2024 Bamboo flowsheet Dc Jackson [facility] Work Phone: [facility] Start: 01-23-2024 End: 01-23-2024 Bamboo flowsheet Dc Jackson [facility] Work Phone: [facility] Start: 01-23-2024 End: 01-23-2024 Social Work Dc Jackson [facility] Work Phone: [facility] Comment on above: Major depressive dis order, single episode, severe without psychotic features (HCC) (CMS/HCC); Generalized anxiety disorder (CMS/HCC) Start: 01-22-2024 End: 01-22-2024 Refill Josh Ochoa MD Work Phone: [facility] Comment on above: Generalized anxiety disorder (CMS/HCC) Start: 01-15-2024 End: 01-15-2024 ambulatory JOSH OCHOA Facility:[facility] Start: 01-08-2024 End: 01-08-2024 ambulatory MD Josh Ochoa Work Phone: [facility] Work Phone: Start: 01-08-2024 End: 01-08-2024 Departed Referred MD Josh Ochoa Work Phone: [facility] Work Phone: Start: 12-26-2023 End: 12-26-2023 Social Work Dc Levy Manuel [facility] Work Phone: [facility] Comment on above: Major depressive dis order, single episode, severe without psychotic features (HCC) (CMS/HCC); Generalized anxiety disorder (CMS/HCC); Panic disorder (CMS/HCC) Start: 10-24-2023 End: 03-04-2024 Telephone encounter 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 APRN.[employer] SALES COUNTER MANAGER Work Phone: Neurology Comment on above: Forms; Bwc (Worker's Comp) C9 Botox form Start: 10-08-2023 Telephone encounter Kinga mae APRN.[employer] SALES COUNTER MANAGER Work Phone: Neurology Comment on above: Patient Question Start: 06-22-2023 Clinisync Result Encounter Josh Ochoa MD Work Phone: [facility] External Department Unsolicited Start: 06-22-2023 Clinisync Result Encounter Josh Ochoa MD Work Phone: [facility] External Department Unsolicited Start: 06-21-2023 Refill Josh Petersen Work Phone: [facility] Comment on above: Generalized anxiety disorder (CMS/HCC) Start: 06-20-2023 End: 06-20-2023 Office outpatient visit 25 minutes Josh Ochoa MD Work Phone: [facility] Comment on above: Type 2 diabetes neli itus with hyperglycemia, with long-term current use of insulin (CMS/HCC) (Primary Dx); Benign essential HTN (CMS/HCC); ADD (attention deficit disorder) without hyperactivity; MDD (major depressive disorder), recurrent episode, mild (HCC) (CMS/HCC); Generalized anxiety disorder (CMS/HCC); Mild intermittent asthma without complication (CMS/HCC); Complex regional pain syndrome type 1, affecting unspecified site; Mixed hyperlipidemia (CMS/HCC); manager terminal (current) use of insulin (Z79.4) Start: 06-20-2023 Bamboo flowsheet Josh Ochoa MD Work Phone: [facility] Start: 06-20-2023 Bamboo flowsheet Josh Ochoa MD Work Phone: [facility] Start: 06-17-2023 End: 03-04-2024 Telephone encounter 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 APRN.[employer] SALES COUNTER MANAGER Work Phone: Neurology Comment on above: Forms ([facility] forms) Start: 03-25-2023 Telephone encounter Kinga mae 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 Phone: Otolaryngology Comment on above: Appointment Start: 01-02-2023 End: 01-02-2023 Patient encounter procedure 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 Phone: Neurology Comment on above: Intractable chronic migraine without aura and without status migrainosus (Primary Dx); Chronic daily headache Start: 10-10-2022 End: 10-10-2022 Patient encounter procedure 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 Phone: Neurology Comment on above: Intractable chronic migraine without aura and without status migrainosus (Primary Dx); Chronic daily headache Start: 09-06-2022 End: 09-06-2022 Admission to same day surgery center MD Josh Ochoa Work Phone: [facility] [place] Start: 09-06-2022 End: 09-06-2022 ambulatory MD Josh Ochoa Work Phone: [facility] Work Phone: Start: 08-28-2022 End: 08-29-[address] BARTOLOME RODRIGUEZ Facility:[facility] Start: 08-27-2022 End: 08-27-2022 ambulatory MD Josh Ochoa Work Phone: [facility] Work Phone: Start: 08-27-2022 End: 08-27-2022 Patient encounter procedure MD Josh Ochoa Work Phone: [facility] Work Phone: Start: 08-01-[address] JOSH OCHOA Facil ity:[facility] Start: 07-30-2022 Encounter for genera l adult medical examination without abnormal findings DR JOSH OCHOA [facility] Start: 07-24-2022 End: 07-25-[address] JOSH OCHOA Facility:[facility] Start: 07-24-2022 End: 07-25-2022 Encounter for general adult medical examination without abnormal findings DR JOSH OCHOA Facility:[facility] Start: 07-17-2022 Telephone encounter Kinga mae APRN.[employer] SALES COUNTER MANAGER Work Phone: Otolaryngology Comment on above: Referral Request Start: 07-17-2022 End: 07-17-2022 Patient encounter procedure 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 APRN.[employer] SALES COUNTER MANAGER Work Phone: Neurology Comment on above: Intractable chronic migraine without aura and without status migrainosus (Primary Dx) Start: 07-10-2022 End: 07-11-[address] AVINASH SERRATO Facility:[facility] Start: 06-26-2022 End: 06-27-[address] AVINASH SERRATO Facility:[facility] Start: 04-17-2022 End: 04-17-2022 Patient encounter procedure 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 APRN.[employer] SALES COUNTER MANAGER Work Phone: Neurology Comment on above: Intractable chronic migraine without aura and without status migrainosus (Primary Dx) Start: 03-29-2022 End: 03-29-2022 ambulatory MD Josh Ochoa Work Phone: [facility] Work Phone: Start: 03-29-2022 End: 03-29-2022 Patient encounter procedure MD Josh Ochoa Work Phone: [facility] Start: 03-29-2022 End: 03-29-2022 ambulatory MARIE ELIAS Facility:[facility] Start: 03-28-2022 End: 03-29-[address] JOSH OCHOA Facility:[facility] Start: 01-09-2022 End: 01-09-2022 Patient encounter procedure 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 APRN.[employer] SALES COUNTER MANAGER Work Phone: Neurology Comment on above: Intractable chronic migraine without aura and without status migrainosus (Primary Dx) Start: 12-31-2021 End: 12-31-2021 ambulatory Vianney Collins Other [employer] Other Start: 12-31-2021 Office outpatient vi sit 25 minutes Vianney Collins [facility] Start: 12-13-2021 End: 12-14-[address] JOSH OCHOA Facility:[facility] Start: 12-09-2021 End: 12-09-2021 ambulatory Chanel Workman Other [employer] Other Start: 12-09-2021 Office outpatient vi sit 15 minutes Chanel Workman [facility] Start: 11-15-2021 End: 11-15-[address] MEG TIDWELL . Facility:[facility] Start: 09-08-2021 Telephone encounter Kinga mae APRN.[employer] SALES COUNTER MANAGER Work Phone: Neurology Comment on above: Referral Request Start: 01-12-2020 End: 01-27-2020 Patient encounter procedure BENJAMIN CUMMINS Facility:[facility] Start: 12-07-2019 End: 12-08-2019 Patient encounter procedure BENJAMIN CUMMINS Facility:[facility] Start: 10-21-2019 End: 10-22-2019 Patient encounter procedure BENJAMIN CUMMINS Facility:[facility] Start: 02-18-2019 End: 02-18-2019 Emergency department patient visit CHONG CARRERO Facility:[facility] Procedures Date Procedure Procedure Detail Performing Clinician Start: 12-31-2024 ALL CBC WITH AUTO DIFF Josh Ochoa MD Work Phone: Start: 10-08-2024 Fluoroscopy during operation Jessee Billy MD Work Phone: Start: 10-08-2024 FLUORO FOR SURGICAL PROCEDURES Generic External Data Provider Start: 09-16-2024 XR CERVICAL SPINE (4 -5 VIEWS) Generic External Data Provider Start: 09-16-2024 XR LUMBAR SPINE (MIN 4 VIEWS) Generic External Data Provider Start: 09-16-2024 XR SHOULDER LEFT (KS N 2 VIEWS) Generic External Data Provider Start: 07-20-2024 IGP,APTIMA HPV,AGE GDLN Jacquelyn PFEIFFER Work Phone: Start: 07-20-2024 Microscopic observat ion [Identifier] in Cervix by Cyto stain Josh Ochoa MD Work Phone: Start: 02-07-2024 ALL LIPID PROFILE (FASTING) Generic External Data Provider Start: 02-07-2024 [facility] DIRECT LDL Generic External Data Provider Start: 06-22-2023 [facility] MICROALBUMIN, RA ND UR Josh Ochoa MD [...] Adult depression screening assessment 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 APRN.[employer] SALES COUNTER MANAGER Work Phone: Start: 07-11-2020 Microscopic observat ion [Identifier] in Cervix by Cyto stain Josh Ochoa MD Work Phone: Plan of Treatment Date Care Activity Detail Author Start: 02-27-2028 Screening for malign ant neoplasm of cervix [facility] Start: 09-23-2027 [facility] Start: 07-21-2027 Screening for malign ant neoplasm of cervix Pap Smear [facility] Start: 06-23-2027 [facility] Start: 02-11-2027 [facility] Start: 10-05-2025 DIABETES SCREEN DIABETES SCREEN [facility] Start: 10-05-2025 [facility] Start: 08-10-2025 Medicare Annual Well ness (AWV) Medicare Annual Wellness (AWV) [facility] Start: 07-26-2025 End: 07-26-2025 Patient encounter procedure [facility] Start: 07-20-2025 Medicare Annual Well ness (AWV) Medicare Annual Wellness (AWV) [facility] Start: 07-11-2025 Screening for malign ant neoplasm of cervix [facility] Start: 04-13-2025 End: 04-13-2025 Patient encounter procedure 04/13/2025 9:00 AM EST Office Visit [facility] [address] [place] [phone] Josh Ochoa MD [address] [place] [phone] [facility] Start: 03-05-2025 Glaucoma screening Diabetes: R etinopathy Screening [facility] Start: 03-03-2025 End: 03-03-2025 Patient encounter procedure 03/03/2025 11:30 AM EDT Office Visit Neurology [address] [facility] [address] [place] [address] 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 APRN.[employer] SALES COUNTER MANAGER [address] [place] [address] 12 week botox Neurology Comment on above: 12 week botox Start: 02-17-2025 End: 02-17-2025 Clinical Support 02/17/2025 8:00 AM EDT Clinical Support [facility] [facility] [address] [facility] [address] [place] [address] Olu Arce MD 0612 [facility] [address] [id number] [facility] [facility] Start: 01-11-2025 Influenza vaccination [facility] Start: 12-23-2024 End: 12-23-2024 Clinical Support [facility] Comment on above: Arrived Start: 12-21-2024 Hemoglobin A1c measurement Diabetes: Hemoglobin A1C [facility] Start: 12-11-2024 Influenza vaccination Flu vacc ine (Season Ended) [facility] Start: 12-04-2024 End: 12-04-2024 Patient encounter procedure 12/04/2024 9:00 AM EDT Office Visit Neurology [address] [facility] [address] [place] [address] 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 APRN.[employer] SALES COUNTER MANAGER [address] [place] [address] [facility] Neurology Comment on above: BOTOX Start: 11-16-2024 End: 11-16-2024 Social Work 11/16/2024 10:00 AM EDT Social Work [facility] [address] [facility] [address] [place] [address] Dc Jackson, [facility] [address] [place] [address] [facility] Start: 10-22-2024 End: 10-22-2024 Clinical Support [facility] Comment on above: Arrived Start: 10-12-2024 End: 10-12-2024 Patient encounter procedure [facility] Comment on above: Arrived Start: 09-10-2024 End: 09-10-2024 Clinical Support [facility] Comment on above: Arrived Start: 09-07-2024 End: 09-07-2024 Social Work 09/07/2024 10:00 AM EDT [facility] [address] [place] [address] Dc Jackson, [facility] [address] [place] [address] [facility] Start: 2024 Shingles vaccine (1 of 2) Shingles vaccine (1 of 2) [facility] Start: 2024 Shingrix Vaccine (1 of 2) Shingrix Vaccine (1 of 2) [facility] Start: 08-28-2024 Screening for malign ant neoplasm of breast Breast cancer screen [facility] Start: 08-13-2024 End: 08-13-2024 Social Work 08/13/2024 3:00 PM EDT [facility] [address] [place] [phone] Dc Jackson, [facility] [address] [place] [address] [facility] Start: 08-12-2024 Hemoglobin A1c measurement Diabetes: Hemoglobin A1C [facility] Start: 08-10-2024 End: 08-10-2025 Basic metabolic 1998 panel - Serum or Plasma Basic metabolic panel Lab Routine Encounter for long-term (current) use of medications Expected: 08/10/2024 (Approximate), Expires: 08/10/2025 [facility] Comment on above: Expected: 08/10/2024 (Approximate), Expires: 08/10/2025 Start: 08-10-2024 End: 08-10-2025 CBC W Auto Differential panel - Blood CBC and differential Lab Routine Encounter for long-term (current) use of medications Expected: 08/10/2024 (Approximate), Expires: 08/10/2025 [facility] Comment on above: Expected: 08/10/2024 (Approximate), Expires: 08/10/2025 Start: 08-10-2024 End: 08-10-2025 Hemoglobin A1c/Hemoglobin.total in Blood Hemoglobin A1c Lab Routine Type 2 diabetes mellitus with hyperglycemia, with long-term current use of insulin ([facility]) Expected: 08/10/2024 (Approximate), Expires: 08/10/2025 [facility] Comment on above: Expected: 08/10/2024 (Approximate), Expires: 08/10/2025 Start: 08-10-2024 End: 08-10-2025 Hepatic function 2000 panel - Serum or Plasma Hepatic function panel Lab Routine Encounter for long-term (current) use of medications Expected: 08/10/2024 (Approximate), Expires: 08/10/2025 [facility] Comment on above: Expected: 08/10/2024 (Approximate), Expires: 08/10/2025 Start: 08-10-2024 End: 08-10-2025 Lipid 1996 panel - Serum or Plasma Lipid panel Lab Routine Dyslipidemia ([facility]) Expected: 08/10/2024 (Approximate), Expires: 08/10/2025 [facility] Comment on above: Expected: 08/10/2024 (Approximate), Expires: 08/10/2025 Start: 08-10-2024 End: 08-10-2025 Microalbumin/Creatinine panel in random Urine Microalbumin / creatinine, urine ratio Lab Routine Type 2 diabetes mellitus with hyperglycemia, with long-term current use of insulin ([facility]) Expected: 08/10/2024 (Approximate), Expires: 08/10/2025 [facility] Work Phone: Comment on above: Expected: 08/10/2024 (Approximate), Expires: 08/10/2025 Start: 08-10-2024 End: 08-10-2025 Thyrotropin [Units/volume] in Serum or Plasma TSH Lab Routine Abnormal TSH Expected: 08/10/2024 (Approximate), Expires: 08/10/2025 [facility] Comment on above: Expected: 08/10/2024 (Approximate), Expires: 08/10/2025 Start: 08-10-2024 End: 08-10-2025 Thyroxine (T4) free [Mass/volume] in Serum or Plasma T4, free Lab Routine Abnormal TSH Expected: 08/10/2024 (Approximate), Expires: 08/10/2025 [facility] Comment on above: Expected: 08/10/2024 (Approximate), Expires: 08/10/2025 Start: 08-10-2024 End: 08-10-2024 Patient encounter procedure [facility] Comment on above: Arrived Start: 08-03-2024 End: 08-03-2024 Social Work 08/03/2024 3:00 PM EDT Social Work [facility] [address] [place] [phone] Dc Jackson, [facility] [address] [place] [address] [facility] Start: 07-20-2024 End: 07-20-2024 Patient encounter procedure 07/20/2024 9:00 AM EDT Office Visit [facility] [address] [place] [address] Jacquelyn Huitron PA [address] [place] [address] [facility] Start: 07-16-2024 End: 07-16-2024 Clinical Support [facility] Comment on above: Arrived Start: 06-22-2024 Urine screening for protein Diabetes: Urine Protein Screening [facility] Start: 06-15-2024 End: 06-15-2024 Social Work 06/15/2024 2:00 PM EST Social Work [facility] [address] [place] [address] Dc Jackson, [facility] [address] [place] [address] [facility] Start: 06-11-2024 End: 06-11-2024 Clinical Support 06/11/2024 2:35 PM EST Clinical Support [facility] [address] [place] [address] Sara Kramer, DIRECTOR OF DIAGNOSTIC IMAGING [address] [facility] [place] [address] [facility] Start: 06-02-2024 End: 06-02-2024 Patient encounter procedure 06/02/2024 9:00 AM EST Office Visit [facility] [address] [place] [phone] Jacquelyn Huitron, PA [address] [place], [place] [id number] [facility] Start: 05-18-2024 End: 05-18-2024 Social Work 05/18/2024 1:00 PM EST Social Work [facility] [address] [place] [phone] Dc Jackson, [facility] [address] [place] [address] [facility] Start: 05-14-2024 End: 05-14-2024 Patient encounter procedure 05/14/2024 9:00 AM EST Office Visit [facility] [address] [place] [address] Jacquelyn Huitron, PA [address] [place] [address] [facility] Start: 05-13-2024 Annual Wellness Visi t (Medicare Advantage) Annual Wellness Visit (Medicare Advantage) [facility] Start: 05-11-2024 End: 05-11-2024 Patient encounter procedure [facility] Comment on above: Arrived Start: 04-15-2024 End: 04-15-2024 Clinical Support 04/15/2024 8:00 AM EST Clinical Support [facility] [address] [place] [phone] Sara Kramer, DIRECTOR OF DIAGNOSTIC IMAGING [address] [place] [phone] [facility] 210 Start: 04-14-2024 End: 04-14-2024 Social Work [facility] Comment on above: Non-DHE #3 Infusion Day 3 Start: 04-09-2024 Influenza vaccination Influenza Vacc ine (#1) [facility] Comment on above: Postponed from 01/11 (Other Patient Reasons) Start: 04-08-2024 End: 04-08-2024 Patient encounter procedure 04/08/2024 8:30 AM EST Office Visit Neurology [address] [address] 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 APRN.[employer] SALES COUNTER MANAGER [address] [facility] [place] [address] [employer] Q12 weeks authorized er 04/02/2025 Neurology [...] 03/30/2024 8:15 AM EST Office Visit [facility] [address] [place] [phone] Sara Kramer, DIRECTOR OF DIAGNOSTIC IMAGING 5319 [facility] [address] [place] [address] [facility] 210 Start: 03-24-2024 End: 03-24-2024 Social Work 03/24/2024 11:00 AM EST Social Work [facility] [address] [place] [address] Dc Jackson, [facility] [address] [place] [address] [facility] Start: 03-19-2024 End: 03-19-2024 Patient encounter procedure 03/19/2024 2:30 PM EST Office Visit [facility] [address] [place] [address] Josh Ochoa MD [address] [place] [address] [facility] Start: 03-11-2024 End: 03-11-2024 Patient encounter procedure 03/11/2024 9:30 AM EDT Office Visit Neurology [address] [place], [place] [phone] 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 APRN.[employer] SALES COUNTER MANAGER [address] [place] [address] [facility]rology Comment on above: Botox Start: 03-05-2024 Glaucoma screening Diabetes: R etinopathy Screening [facility] Start: 02-27-2024 Medicare Annual Well ness (AWV) Medicare Annual Wellness (AWV) [facility] Start: 02-26-2024 End: 02-26-2024 Clinical Support [facility] 210 Comment on above: Arrived Start: 02-17-2024 End: 02-17-2024 Social Work 02/17/2024 2:00 PM EDT Social Work [facility] [address] [place] [address] Dc Jackson, [facility] [address] [place] [address] [facility] Start: 01-28-2024 End: 01-28-2024 Clinical Support 01/28/2024 9:00 AM EDT [facility] [address] [place] [address] Sara Kramer DIRECTOR OF DIAGNOSTIC IMAGING [address] [place] [address] [facility] 210 Start: 01-23-2024 End: 01-23-2024 Social Work 01/23/2024 2:00 PM EDT Social Work [facility] [address] [place] [address] Dc Jackson, [facility] [address] [place] [address] [facility] Start: 01-12-2024 Covid-19 Vaccine ( season) Covid-19 Vaccine ( season) [facility] Start: 01-12-2024 Influenza vaccination Influenza Vacc ine (#1) [facility] Start: 12-21-2023 Hemoglobin A1c measurement Diabetes: Hemoglobin A1C [facility] Start: 08-29-2023 Screening for malign ant neoplasm of breast [facility] Start: 08-01-2023 End: 08-01-2023 Clinical Support 08/01/2023 1:40 PM EDT [facility] [address] [place] [address] Olu Arce MD [address], [place] [phone] [facility] Start: 07-15-2023 End: 07-15-2023 Patient encounter procedure 07/15/2023 8:15 AM EST Office Visit [facility] [address] [place] [address] Josh Ochoa MD [address] [place] [phone] [facility] Start: 07-02-2023 End: 07-02-2023 Patient encounter procedure 07/02/2023 12:00 PM EST Office Visit [facility] [address] [place] [address] Sara Kramer, DIRECTOR OF DIAGNOSTIC IMAGING [address] [place] [address] [facility] 210 Start: 07-01-2023 End: 07-01-2023 Social Work 07/01/2023 10:00 AM EST Social Work [facility] [address] [place] [address] Dc Jackson, [facility] [address] [place] [address] [facility] Start: 06-20-2023 End: 06-20-2023 Patient encounter procedure 06/20/2023 2:15 PM EST Office Visit [facility] [address] [place] [phone] Josh Ochoa MD [address] [place] [phone] Arrived [facility] Comment on above: Arrived Start: 06-20-2023 End: 06-20-2024 Albumin, urine, random Albumin, urine, random Lab Routine Type 2 diabetes mellitus with hyperglycemia, with long-term current use of insulin ([facility]) Expected: 06/20/2023 (Approximate), Expires: 06/20/2024 [facility] Comment on above: Expected: 06/20/2023 (Approximate), Expires: 06/20/2024 Start: 06-20-2023 End: 06-20-2024 Hemoglobin A1c measurement Hemoglobin A1c Lab Routine Type 2 diabetes mellitus with hyperglycemia, with long-term current use of insulin ([facility]) Expected: 06/20/2023 (Approximate), Expires: 06/20/2024 [facility] Work Phone: Comment on above: Expected: 06/20/2023 (Approximate), Expires: 06/20/2024 Start: 05-13-2023 Behavioral Health Screening Behavioral Health Screening [facility] Start: 01-11-2023 Covid-19 Vaccine () Covid-19 Vaccine () [facility] Start: 01-11-2023 Influenza vaccination [facility] Start: 09-07-2022 Adult depression screening assessment DEPRESSION SCREENING [facility] Start: 09-06-2022 [facility] Start: 09-06-2022 [facility] Start: 05-13-2022 DEPRESSION ASSESSMENT DEPRESSION ASS ESSMENT [facility] Start: 01-11-2022 Influenza vaccination [facility] Start: 05-13-2021 DEPRESSION ASSESSMENT DEPRESSION ASS ESSMENT [facility] Start: 05-01-2021 COVID-19 VACCINE (3 - Booster for Moderna series) COVID-19 VACCINE (3 - Booster for Moderna series) [facility] Start: 01-24-2021 COVID-19 VACCINE (3 - Booster for Moderna series) COVID-19 VACCINE (3 - Booster for Moderna series) [facility] Start: 01-24-2021 COVID-19 VACCINE (3 - Moderna series) COVID-19 VACCINE (3 - Moderna series) [facility] Start: 09-01-2019 COLOGUARD (FIT-DNA) COLOGUARD (FIT-D NA) [facility] Start: 09-01-2019 Colonoscopy COLONOSCOPY [facility] Start: 09-01-2019 COLORECTAL CANCER SCREENING COLORECTAL CANCER SCREENING [facility] Start: 09-01-[address] COLONOGRAPHY [facility] Start: 09-01-2019 DIABETES SCREEN DIABETES SCREEN [facility] Start: 09-01-2019 FECAL OCCULT BLOOD FECAL OCCULT BLOO D [facility] Start: 09-01-2019 Lipid 1996 panel - S sophia or Plasma Lipid Screening [facility] Start: 09-01-2019 Lipid panel Lipid Screening [facility] Start: 09-01-2019 LIPID SCREEN LIPID SCREEN [facility] Start: 09-01-2019 Screening for malign ant neoplasm of colon [facility] Start: 09-01-2019 SIGMOIDOSCOPY SIGMOIDOSCOPY [facility] Start: 2014 Mammography [facility] Start: 2009 Diabetes screen Diabetes screen [employer] Start: 2004 HPV TESTING HPV TESTING [facility] Start: 2004 Screening for malign ant neoplasm of cervix [facility] Start: 2004 Zoledronic acid therapy ALPHA- 1 ANTITRYPSIN DEFICIENCY SCREENING [facility] Start: 09-01-1995 PAP TESTING PAP TESTING [facility] Start: 09-01-1995 Screening for malign ant neoplasm of cervix [facility] Start: 1993 DTaP/Tdap/Td vaccine (1 - Tdap) DTaP/Tdap/Td vaccine (1 - Tdap) [facility] Start: 1993 Hepatitis B Vaccine (1 of 3 - 19+ 3-dose series) Hepatitis B Vaccine (1 of 3 - 19+ 3-dose series) [facility] Start: 1993 Urine microalbumin profile [facility] Start: 1993 Urine screening for protein Diabetes: Urine Protein Screening [facility] Start: 1992 ANNUAL PCP TEAM ACID MAKER SILVANO DISEASE VISIT ANNUAL PCP TEAM CHRONIC DISEASE VISIT [facility] Start: 1992 Anxiety Screening Anxiety Screening [facility] Start: 1992 Depression Screening Depression Scre ening [facility] Start: 1992 HEPATITIS C SCREENING HEPATITIS C SC REENING [facility] Start: 1992 Hepatitis C screening [facility] Start: 1992 HIV SCREENING HIV SCREENING [facility] Start: 1992 HIV screening HIV Screening [facility] Start: 1992 SPIROMETRY SPIROMETRY [facility] Start: 1989 HIV screening HIV screen [email or web address] Start: 1986 Depression Screen Depression Screen [facility] Start: 1984 Glaucoma screening Diabetes: R etinopathy Screening [facility] Start: 1984 Lipid panel Lipids [facility] Start: 1980 PNEUMOCOCCAL (1 - PCV) PNEUMOCOCCAL (1 - PCV) [facility] Start: 1980 Pneumococcal vaccination Pneum ococcal Vaccine (1 - PCV) [facility] Start: 1974 Hemoglobin A1c measurement Diabetes: Hemoglobin A1C [facility] Start: 1974 HEPATITIS B (1 of 3 - 3-dose series) HEPATITIS B (1 of 3 - 3-dose series) [facility] Start: 1974 Hepatitis B Vaccine (1 of 3 - 3-dose series) Hepatitis B Vaccine (1 of 3 - 3-dose series) [facility] Start: 1974 Screening for malign ant neoplasm of lung Lung Cancer Screening Shared Decision Making [facility] End: 10-08-2024 Njx dx/ther agt pvrt facet jt lmbr/sac 1 level INJ DX/THER AGNT PARAVERT FACET JOINT, LUMBAR/SAC, 1ST LEVEL Procedures Routine Lumbosacral spondylosis without myelopathy 1 Occurrences starting 10/08/2024 until 10/08/2024 [facility] Comment on above: 1 Occurrences starti ng 10/08/2024 until 10/08/2024 Patient Education [facility] Work Phone: Patient referral [facility] Work Phone: End: 09-16-2024 XR Cervical spine 4 or 5 Views [facility] Comment on above: 1 Occurrences starti ng 09/16/2024 until 09/16/2024 End: 09-16-2024 XR Lumbar spine 4 Views [facility] Comment on above: 1 Occurrences starti ng 09/16/2024 until 09/16/2024 End: 09-16-2024 XR Shoulder - left 2 Views [facility] Comment on above: 1 Occurrences starti ng 09/16/2024 until 09/16/2024 [facility] Immunizations Immunization Date Immunization Notes Care Provider Zenaida tang 03-04-2023 Pneumococcal Conjuga te PCV 20 Dc Jackson [facility] Work Phone: [facility] 03-04-2023 SARS-COV-2 (COVID-19 ) vaccine, mRNA, spike protein, LNP, PF, 50 mcg/0.5 mL Dc Jackson [facility] Work Phone: [facility] 03-04-2023 Seasonal, quadrivale nt, recombinant, injectable influenza vaccine, preservative free Dckhalida Jackson [facility] Work Phone: [facility] 03-04-2023 influenza virus vaccine, unspecified formulation Dckhalida Jackson [facility] Work Phone: [facility] 11-29-2020 COVID-19 [id number] (Neal) MD Josh Ochoa Work Phone: [facility] 11-01-2020 COVID-19 mRNA-[id number] (Neal) MD Josh Ochoa Work Phone: [facility] Payers Date Payer Category Payer Self-pay [id number] 2023 Unknown [id number] 2023 Medicaid [id number] 2023 Medicare (Managed Care) [place] [place] [id number] 2023 Medicare [id number] 1.2.840.398051.1.13.239.2 .7.9.967950.8342.315 2022 Private Health Insurance 1.2 .840.581113.1.13.693.2 .7.9.004021.291363.315 2022 Unknown [id number] 2019 Medicare [id number]. 1.13.159.2 .7.3.292151.315 2018 Unknown MMO MMO [employer]PER[employer] PLUS [id number] 2018-Present [phone] [address] [place] [address] PPO [id number] 1.2.840.183721.1.13.159.2 .7.3.471140.315 2016 Government (not [facility] care or Medicaid) [facility] 1.2.840.888519.1.13.159.2 .7.9.595706.47962.315 2016 Unknown 1.2.840.986065. 1.13.159.2 .7.3.676112.315 2016 Unknown [id number] 1974 Unknown [id number] 2.16.840.1.284347.3.579.2 .647 1974 Unknown [id number] 2.16.840.1.898750.3.579.2 .647 1974 Unknown [id number] 2.16.840.1.120470.3.579.2 .647 1974 Unknown [id number] 2.16.840.1.684420.3.579.2 .647 1974 Unknown [id number] 2.16.840.1.739434.3.579.2 .593 1974 Unknown [id number] 2.16.840.1.544636.3.579.2 .593 1974 Unknown [id number] 2.16.840.1.567158.3.579.2 .593 1974 Unknown [id number] 2.16.840.1.249860.3.579.2 .593 1974 Unknown [id number] 2.16.840.1.814293.3.579.2 .593 1974 Unknown [id number] 2.16840.1.534577.3.579.2 .593 1974 Unknown [id number] 2.16.840.1.818687.3.579.2 .593 1974 Unknown [id number] 2.16840.1.580345.3.579.2 .593 1974 Unknown [id number] 2.16.840.1.533856.3.579.2 .593 1974 Unknown [id number] 2.16840.1.621980.3.579.2 .182 1974 Unknown [id number] 2.16.840.1.286998.3.579.2 .182 1974 Unknown [id number] 2.16.840.1.305518.3.579.2 .182 1974 Unknown [id number] 2.16.840.1.769222.3.579.2 .182 1974 Unknown [id number] 2.16.840.1.471168.3.579.2 .1259 1974 Unknown [id number] 2.16.840.1.600056.3.579.2 .1258 1974 Unknown [id number] 2.16.840.1.142598.3.579.2 .1258 1974 Unknown [id number] 2.16.840.1.384801.3.579.2 .1258 1974 Unknown [id number] 2.16840.1.781546.3.579.2 .1258 1974 Unknown [id number] 2.16.840.1.514654.3.579.2 .1258 1974 Unknown [id number] 2.840.1.485537.3.579.2 .1258 1974 Unknown [id number] 2.840.1.828861.3.579.2 .1258 1974 Unknown [id number] 2.840.1.209043.3.579.2 .1258 1974 Unknown [id number] 2.840.1.270237.3.579.2 .1258 1974 Unknown [id number] 2.840.1.110553.3.579.2 .1258 1974 Unknown [id number] 2.840.1.255134.3.579.2 .1258 1974 Unknown [id number] 2.840.1.559334.3.579.2 .1258 1974 Unknown [id number] 2.840.1.541653.3.579.2 .1258 1974 Unknown [id number] 2.840.1.858735.3.579.2 .1258 1974 Unknown [id number] 2.16840.1.704492.3.579.2 .1258 1974 Unknown [id number] 2.16840.1.100328.3.579.2 .1258 1974 Unknown [id number] 2.16840.1.106119.3.579.2 .1259 1974 Unknown [id number] 2.16.840.1.498954.3.579.2 .1259 1974 Unknown [id number] 2.16.840.1.967984.3.579.2 .718 1974 Unknown [id number] 2.16.840.1.199637.3.579.2 .718 1959 Medicare [id number] 2.16.840.1.122958.19 1959 Unknown [id number] 1959 Worker's Compensation [id number] Private Health Insurance [employer] [id number] Unknown MMO [id number] Unknown [id number] 2.16.840.1.138472.3.579.2 .531 Social History Date Type Detail Facility Start: 08-01-2016 End: 04-08-2024 Tobacco smoking status MOIS Smokes tobacco daily [facility] Start: 08-01-2016 End: 10-10-2022 Cigarettes smoked current (pack per day) - Reported 1 [facility] Start: 08-01-2016 End: 04-08-2024 Tobacco use and exposure User of smokeless tobacco [facility] Start: 09-07-2021 End: 12-04-2024 Alcohol intake Current non-drinker of alcohol (finding) [facility] Start: 1975 Sex Assigned At Not on file [facility] Start: 08-28-2021 End: 01-09-2022 Exposure to SARS-CoV-2 (event) Not sure [facility] Start: 10-10-2022 End: 01-02-2023 Sex Assigned At [facility] Start: 07-28-1999 End: 07-27-2022 History of tobacco use Cigarette Smoker [facility] Work Phone: Start: 07-28-1999 End: 07-27-2022 Tobacco smoking status NHIS Smoker (finding) [facility] Start: 1975 Sex Assigned At Female F [facility] Start: 08-27-2022 End: 11-20-2023 Tobacco smoking status MOIS Ex-smoker (finding) [facility] Start: 04-13-2012 Adult Depression Screening Assessment 4 [facility] Start: 06-17-2023 End: 11-20-2023 Tobacco use and exposure Smokeless tobacco non-user [facility] Start: 06-17-2023 End: 12-23-2024 Alcohol intake Lifetime non-drinker (finding) [facility] Start: 05-14-2023 Alcohol Comment caffeine intak e: maybe 1 coffee or pop cups per day [facility] Start: 09-16-2024 Tobacco smoking stat us [facility] Never smoked tobacco [facility] Start: 06-21-2012 Sex Female (finding) [facility] Procedure Code Equipment Code Equipment Origin al Text Equipment Identifier Dates [id number], [id number], [id number], [id number] Start: 10-09-2019 End: 06-17-2025 Comment on above: use test strip to te st BLOOD SUGAR FOUR TIMES DAILY use with insulin FOU R TIMES DAILY Goals Date Patient Goal Desired Activity /State Clinical Notes 04-24-2005 to 01-18-2025 Telephone Encounter - Anne-Marie Mensah - 01/18/2025 4:45 PM EDTTelephone Encounter - Anne-Marie Mensah - 01/18/2025 4:45 PM Dontrell Arce MD - 12/23/2024 8:00 AM EDTPatient Instructions Note Date & Type Note Facility 01-18-2025 Telephone encounter Note Received completed form in person Uploaded form into patients scanned docs and faxed to [facility] -[phone] [facility] 01-18-2025 Miscellaneous Notes Received completed form in person Uploaded form into patients scanned docs and faxed to [facility] -[phone] documented in this encounter [facility] 01-12-2025 Note [place] Electrophysiology Consult Note [place] Cardiology - [facility] Reason for visit: Afib HPI: Jacquelyn Zeng is a 49 y.o. year old with past medical history of CAD, hypertension, hyperlipidemia who had been previously seen by Dr. PARR for unstable angina. This led to evaluation with a stress test that showed defect in the distal anteroapical wall and subsequently had a cardiac catheterization on 07/27/2022 which revealed severe RCA disease for which she underwent a drug-eluting stent following that she has been medically managed for her CAD and has been reporting dizziness and palpitations. An event monitor was placed by Dr. PARR which revealed episodes of atrial fibrillation and hence he she is referred to me. She states that she has been increasingly experiencing palpitations and since July has been more fatigued. During the time of the event monitor she experienced similar symptoms. He uses a blood pressure machine and notes that her pulse is erratic. Review of event monitor reveals possibility of atrial fibrillation but there is significant baseline artifact which makes A-fib versus AT difficult. PMH: Medical History[1] PSH: Surgical History[2] SH: Social Drivers of Health Tobacco Use: Medium Risk (01/12/2025) Patient History Smoking Tobacco Use: Former Smokeless Tobacco Use: Never Passive Exposure: Never Alcohol Use: Not At Risk (05/18/2019) Received from [facility] Frequency of Alcohol Consumption: Never Average Number of Drinks: Not on file Frequency of Binge Drinking: Not on file Financial Resource Strain: Not on file Food Insecurity: No Food Insecurity (11/14/2022) Received from [facility] Hunger Screening Within the past 12 months we worried whether our food would run out before we got money to buy more.: Never True Within the past 12 months the food we bought just didn't last and we didn't have money to get more.: Never True Transportation Needs: Not on file Physical Activity: Not on file Stress: Not on file Social Connections: Not on file Intimate Partner Violence: Unknown (07/04/2023) [place] Safety & Environment Fear of Current or Ex-Partner: Not on file Emotionally Abused: Not on file Physically Abused: Not on file Sexually Abused: Not on file Physically or Sexually Abused: Not on file Depression: At risk (08/10/2024) Received from [facility] PHQ-2 Patient Health Questionnaire-2 Score: 4 Housing Stability: Not on file Utilities: Not on file Health Literacy: Not on file Allergies: Allergies[3] Weight: No weight available Visit Vitals Ht 1.753 m (5' 9 ) BMI 32.78 kg/m??? OB Status Having periods Smoking Status Former BSA 2.22 m??? Meds: Medications Ordered Prior to Encounter[4] ROS: Review of Systems Constitutional: Positive for malaise/fatigue. Cardiovascular: Positive for chest pain, dyspnea on exertion, irregular heartbeat and palpitations. Respiratory: Positive for shortness of breath. Skin: Positive for flushing. Neurological: Positive for dizziness and light-headedness. Psychiatric/Behavioral: The patient is nervous/anxious. Physical Exam: Constitutional General Appearance: well-nourished, well-developed, appears stated age Level of Distress: comfortable Eyes PALLAVI Neck Neck: supple, trachea midline Carotid Arteries: bilateral normal upstroke, no bruits Jugular Veins: normal jugular venous pressure Thyroid: not enlarged Lungs Respiratory Effort: unlabored Chest Exam: normal curvature, no thoracic deformity Auscultation: clear, no wheezing, no rales, no rhonchi Cardiovascular Chest wall: Rate And Rhythm: regular Heart Sounds: normal S1, normal s2, no gallop Systolic Murmur: not heard Diastolic Murmur: not heard Extremities: no cyanosis, no edema, no peripheral signs of emboli Peripheral Pulses Radial Pulse: normal Abdomen Inspection and Palpation: soft, non distended, no bruit, non tender Neurologic Gait: normal gait Labs: @LABRESULTS@ No results found for: CHOLESTEROL TOTAL , HDL , LDL CALC , LDL DIRECT , TRIGLYCERIDES , TSH , T3 TOTAL , T4 TOTAL , THYROID PEROXIDASE AB , BNP EKG: No results found for this or any previous visit (from the past 4464 hours). Echo: 07/27/2022\ Stress test: Coronary angiogram: 07/27/2022 Hemodynamic Data: AO: 105/59 (79) LV: 109/5, 16 Coronary angiography: This is a right dominant circulation. Left Main: this arises from the left coronary cusp. It bifurcates into left anterior sending and circumflex vessels. The left main is free of disease. Left anterior descending: this is a large vessel. It has mild diffuse disease in the midsegment. A small caliber first diagonal branch has moderate disease at the ostium. The distal LAD is tapered and small in caliber and has minimal disease. Circumflex: this is nondominant. It gives rise to a large bifurcating obtuse marginal branch (more content not included)... [facility] 01-04-2025 Note REASON FOR VISIT: Jacquelyn Zeng is a 49 y.o. female who is being seen today as follow up for evaluation of her diabetes. HbA1C: July 2022 it was 10.1% -->9.3% 10/05/2022 --> 7.5 % 02/19/23 (scanned in media) --> 9.2% 02/12/24 (poct) --> 6.9% 06/23/2024 (poct) --> 5.6% 09/22/2024 (poct) --> 6.3% 01/04/2025 (poct) Current Regimen: - Lantus 20 units BID -Novolog correction scale at meal times (taking around 15 units if BG in 200s) - glipizide 10 mg daily for now - metformin 1 g BID - Farxiga 10 mg daily - used to use omnipod but not interested Tried ozempic and trulicity in past and had diarrhea Compliance: good Today Pt reports doing well. She was visiting her son in [facility] [facility] for the past month and was eating more carbs than usual. She's back home now and plans to resume her usual diet. Lately she's been using Novolog a few times daily, taking when BG is high >200 and will take about 15 units. No side effects reported with Mounjaro. She is using [employer] with smartphone DIABETES HISTORY: Diabetes Mellitus [Type [...] Diabetes education: [No] Seen by a certified medical aide (CDE) within 12 months Meal plan: [No] Seen by a telemarketing representative within 12 months [ ] Consistent carbohydrate [...] spends majority of time in target range; 63% other time mild post prandial hyperglycemia. No hypoglycemia Great control Diabetes-related symptoms and information: [no] Hypoglycemia [no] Increasing urination [no] Increasing drinking/thirst [no] Weight loss [No] Recent changes in vision [No] Chest pain/pressure [no] Nausea [no] Vomiting [] Early satiety [Yes] Feet numbness/pain/tingling [Yes] Patient seeing ticket manager/director of home health services regularly [Yes] Patient seeing dentist regularly [No] Patient seeing coupon manifest clerk regularly REVIEW OF SYSTEMS Review of Systems [...] per week. Drug: Marijuana. PHYSICAL EXAM: Vitals: 01/04/25 0859 BP: 109/70 BP Location: Right arm Patient Position: Sitting BP Cuff Size: Large adult Pulse: 96 Weight: 101 kg (222 lb) Wt Readings from Last 3 Encounters: 01/04/25 101 kg (222 lb) 09/22/24 98.4 kg (217 lb) 08/12/24 97.5 kg (215 lb) Body mass index is 32.78 kg/m???. General appearance: Obese female in no apparent distress. HEENT: EOMI, Neck: Supple Cardiac: RRR, Respiratory: No respiratory distress currently Extremities: No lower extremity edema. No foot deformities. Skin: No skin lesions. No lipohypertrophy at insulin injection sites. Neuro: A & O x 3. Psych: Mood and affect are appropriate. LABS: Last HbA1c: Lab Res (more content not included)... [facility] 12-23-2024 History of Present illness Narrative Images [...] under the care of Dr. Samano at [facility], who suggested scheduling another set of injections. [...] Lyrica. This clinical note was created utilizing [employer] documentation system. All information has been thoroughly reviewed, corrected as necessary, and authenticated by the provider to ensure accuracy and completeness. On occasion, [employer] documentation system erroneously drops words or replaces [...] under the care of Dr. Samano at [facility], who suggested scheduling another set of injections. [...] Lyrica. This clinical note was created utilizing [employer] documentation system. All information has been thoroughly reviewed, corrected as necessary, and authenticated by the provider to ensure accuracy and completeness. On occasion, [employer] documentation system erroneously drops words or replaces a spoken word with a similar sounding word. Please notify with any questions or concerns regarding this clinical note. documented in this encounter [facility] 12-04-2024 Note Spoke with patient a nd she would prefer to start warfarin instead of paying for Eliquis or Xarelto. Referral faxed to the management clinic here at [facility] per patient request. [facility] 12-04-2024 Instructions 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 APRN.[employer] SALES COUNTER MANAGER - 12/04/2024 9:16 AM EDT Images from the original note were not included. [facility] Frequently Asked Questions about Botox Treatment for [...] Botox to understand your coverage and any fxh-zj-kibqub costs. Botox injections are scheduled every 12-13 [...] If you haven t heard from a director payment within 1-2 weeks, please call our office at [phone] (select option 1 for Botox schedulers). Feel free to contact us with any other questions or concerns about Botox: Fruit [employer] Operator [phone] or Once my appointment is scheduled, how should [...] Botox to understand your coverage and any dfb-dc-myargk costs. Do I need a bus driver school? No; however, if it is the first [...] , or . documented in this encounter [facility] 12-04-2024 Note HNO ID: [id number] Author: KINGA MENDES APRN.MICHELLE Service: ? Author Type: Nurse Practitioner Type: [...] for migraine Informed Consent Consent Obtained: Written Adrian Protocol A moment to CARE was completed [...] collected. Written Consent Obtained: Written LOT #: [id number] Expiration Date: Month: Year: 2026 Injection Sites Left (Units) Left (Sites) Right (Units) Right (Sites) TOTAL (Units) Jail Manager 5 1 5 1 10 Procerus Units: [...] Gabapentin (Neurontin) Oxcarb (more content not included)... [facility] 12-04-2024 Procedure note Images from the [...] for migraine Informed Consent Consent Obtained: Written Adrian Protocol A moment to CARE was completed [...] collected. Written Consent Obtained: Written LOT #: [id number] Expiration Date: Month: Year: 2026 Injection Sites Left (Units) Left (Sites) Right (Units) Right (Sites) TOTAL (Units) Jail Manager 5 1 5 1 10 Procerus Units: [...] Counter Medications Acetaminophen (Tylenol) 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 APRN.[employer] SALES COUNTER MANAGER [facility] 12-04-2024 Procedure note Images from the original [...] for migraine Informed Consent Consent Obtained: Written Adrian Protocol A moment to CARE was completed [...] collected. Written Consent Obtained: Written LOT #: [id number] Expiration Date: Month: 10 Year: 2026 Injection Sites Left (Units) Left (Sites) Right (Units) Right (Sites) TOTAL (Units) Jail Manager 5 1 5 1 10 Procerus Units: [...] Counter Medications Acetaminophen (Tylenol) 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 APRN.[employer] SALES COUNTER MANAGER documented in this encounter [facility] 10-22-2024 History of Present illness Narrative Images [...] extensive degeneration. She has not visited the [facility] recently and does not require any medication [...] in all four extremities, including at least mlt, finger abductors, biceps, triceps, deltoid, toe flexors [...] extensive degeneration. She has not visited the [facility] recently and does not require any medication [...] extensive degeneration. She has not visited the [facility] recently and does not require any medication [...] injection site. This note was scribed by Cm Henriquez(Erick) acting under the direction of Olu Arce MD. The content has been reviewed and confirmed for accuracy by Olu Arce MD This note was scribed by Cm Henriquez(Erick) acting under the direction of Olu Arce MD. The content has been reviewed and confirmed for accuracy by Olu Arce MD This clinical note was created utilizing [employer] documentation system. All information has been thoroughly reviewed, corrected as necessary, and authenticated by the provider to ensure accuracy and completeness. On occasion, [employer] documentation system erroneously drops words or replaces a spoken word with a similar sounding word. Please notify with any questions or concerns regarding this clinical note. documented in this encounter [facility] 10-12-2024 History of Present illness Narrative [...] 750 MG tablet documented in this encounter [facility] 09-22-2024 Note REASON FOR VISIT: Jacquelyn [...] Diabetes education: [No] Seen by a certified medical aide (CDE) within 12 months Meal plan: [No] Seen by a telemarketing representative within 12 months [ ] Consistent carbohydrate [...] satiety [Yes] Feet numbness/pain/tingling [Yes] Patient seeing ticket manager/director of home health services regularly [Yes] Patient seeing dentist regularly [No] Patient seeing coupon manifest clerk regularly REVIEW OF SYSTEMS Review of Systems [...] LABS (more content not included)... [facility] 09-11-2024 Instructions 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 APRN.[facility] - 09/11/2024 11:44 AM EDT Images from the original note were not included. [facility] Frequently Asked Questions about Botox Treatment for [...] Botox to understand your coverage and any bti-go-csurqa costs. Botox injections are scheduled every 12-13 [...] If you haven t heard from a director payment within 1-2 weeks, please call our office at [phone] (select option 1 for Botox schedulers). Feel free to contact us with any other questions or concerns about Botox: Fruit Press Operator [phone] or [email or web address] Once my appointment is scheduled, how should [...] Botox to understand your coverage and any ivj-nd-gptcce costs. Do I need a bus driver school? No; however, if it is the first [...] , or . documented in this encounter [facility] 09-11-2024 Note HNO ID: [id number] Author: KINGA MENDES APRN.CNP Service: ? Author [...] for migraine Informed Consent Consent Obtained: Written Adrian Protocol A moment to CARE was completed [...] collected. Written Consent Obtained: Written LOT #: [id number] Expiration Date: Month: 4 Year: 2026 Injection Sites Left (Units) Left (Sites) Right (Units) Right (Sites) TOTAL (Units) Jail Manager 5 1 5 1 10 Procerus Units: [...] XL, Qudexy) Anti-D (more content not included)... [facility] 09-11-2024 Procedure note Images from the [...] for migraine Informed Consent Consent Obtained: Written Adrian Protocol A moment to CARE was completed [...] collected. Written Consent Obtained: Written LOT #: [id number] Expiration Date: Month: 4 Year: 2026 Injection Sites Left (Units) Left (Sites) Right (Units) Right (Sites) TOTAL (Units) Jail Manager 5 1 5 1 10 Procerus Units: [...] Counter Medications Acetaminophen (Tylenol) 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 APRN.CNP [facility] 09-11-2024 Procedure note Images from the [...] for migraine Informed Consent Consent Obtained: Written Adrian Protocol A moment to CARE was completed [...] collected. Written Consent Obtained: Written LOT #: [id number] Expiration Date: Month: 4 Year: 2026 Injection Sites Left (Units) Left (Sites) Right (Units) Right (Sites) TOTAL (Units) Jail Manager 5 1 5 1 10 Procerus Units: [...] Counter Medications Acetaminophen (Tylenol) 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 APRN.[employer] SALES COUNTER MANAGER documented in this encounter [facility] 09-10-2024 History of Present illness Narrative Images [...] tablet Chew. cholecalciferol (Vitamin D-3) 50 MCG (2000 UT) tablet 1 tablet, Daily clopidogrel (Plavix) [...] (Autolet) lancing device Use as instructed Lancets (Yuantiku Plus Hwwiif08L) misc USE DIRECTED Lantus SoloStar 100 UNIT/ML [...] 75 mg, Oral, As needed nystatin (Mycostatin) 553440 UNIT/GM powder APPLY 1 application TO THE [...] At standard risk for fall CAD in [place] artery (CMS/HCC) Cervical spondylosis Chronic constipation Chronic [...] reflexes: Pia's absent. Ankle clonus absent. Coordination Guolye-ev-jycr, rapid alternating movements and gjvu-yw-yvzn normal bilaterally without dysmetria. Gait Normal casual, [...] (Autolet) lancing device Use as instructed Lancets (Lang Mauch Delica Plus Ejwyno10N) misc USE DIRECTED Lantus SoloStar 100 UNIT/ML [...] 75 mg, Oral, As needed nystatin (Mycostatin) [id number] UNIT/GM powder APPLY 1 application TO THE [...] Olu Arce MD documented in this encounter [facility] 08-12-2024 Note [place] Cardiology - [facility] Subjective Jacquelyn Zeng is a 48 [...] mellitus (CMS/HCC) ??? Coronary artery disease involving [place] coronary artery of [place] heart without angina pectoris ??? S/P drug [...] On 07/31/2024 she was evaluated in the [facility] emergency room because of dizziness and hypoxia and was found to be dehydrated and was treated with IV fluids. She had tachycardia with improved heart rate upon discharge. Today she reports (more content not included)... [facility] 08-10-2024 History of Present illness Narrative Associated [...] hyperglycemia, with long-term current use of insulin (CMS/[facility]) Relevant Orders Microalbumin / creatinine, urine ratio Hemoglobin A1c Dyslipidemia ([facility] [facility]) Relevant Orders Lipid panel Medicare annual wellness [...] TSH T4, free documented in this encounter [facility] 06-29-2024 Telephone encounter Note Botox referral sent to pharmacy Boris CHILDRESS, RN RN Clinical Tour Manager [facility] 06-29-2024 Miscellaneous Notes Botox referral sent to pharmacy Boris CHILDRESS, RN RN Clinical Tour Manager [facility] documented in this encounter [facility] 06-25-2024 Note Received a message f rom [employer] stating there is an issue with primary insurance that is on file and they have not been able to contact patient. She said Our records indicate that the patient's primary insurance is [employer], which terminated on May 12, 2024. To ensure accurate coordination of benefits, the patient should contact [employer] to inform them of the change. Please contact patient to inform her of this so she can continue receiving her Dexcom G7 supply [facility] 06-23-2024 Note REASON FOR VISIT: Jacquelyn Zeng [...] able to get dexcom g7 from DME due to insurance coverage. She is tolerating [...] Diabetes education: [No] Seen by a certified medical aide (CDE) within 12 months Meal plan: [No] Seen by a telemarketing representative within 12 months [ ] Consistent carbohydrate [...] >200. NO recently hypoglycemia events reported. CGM: [DEXCoreXchange G7 (not wearing currently due to insurance not covering) Diabetes-related symptoms and information: [No] Hypoglycemia [no] Increasing urination [no] Increasing drinking/thirst [yes] Weight loss [No] Recent changes in vision [No] Chest pain/pressure [no] Nausea [no] Vomiting [] Early satiety [Yes] Feet numbness/pain/tingling [Yes] Patient seeing ticket manager/director of home health services regularly [Yes] Patient seeing dentist regularly [No] Patient seeing coupon manifest clerk regularly REVIEW OF SYSTEMS Review of Systems [...] Extre (more content not included)... [facility] 05-11-2024 History of Present illness Narrative Associated [...] 750 MG tablet documented in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 psychotic features (HCC) ([facility]/HCC) Generalized anxiety disorder ([facility]/HCC) Generalized anxiety disorder Panic disorder ([facility]/HCC) Panic disorder without agoraphobia documented [facility] encounter [facility]* Diagnosis Type 2 diabetes mellitus with hyperglycemia, with long-term current use of insulin ([facility]/HCC)- Primary Benign essential HTN (CMS/HCC) ADD (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 deficit disorder without mention of hyperactivity MDD (major depressive disorder), recurrent episode, mild (HCC) ([facility]/HCC) Generalized anxiety disorder (CMS/HCC) Generalized anxiety disorder Mild intermittent asthma without complication ([facility]/HCC) Complex regional pain syndrome type 1, affecting unspecified site Mixed hyperlipidemia (CMS/HCC) Mixed hyperlipidemia shelter (current) use of insulin (Z79.4) ADD (attention [...] disorder Type 2 diabetes mellitus with polyneuropathy ([facility]/HCC) Type II or unspecified type diabetes mellitus with neurological manifestations, not stated as uncontrolled Dysuria Breast cancer screening by mammogram Trochanteric bursitis of both hips- Primary Cervical paraspinal muscle spasm Spasm of muscle Complex regional pain syndrome type 1, affecting unspecified site Migraine without aura and without status migrainosus, not intractable (CMS/HCC) Lumbar spondylosis Lumbosacral spondylosis without myelopathy Cervical spondylosis Cervical spondylosis without myelopathy Other nerve root and plexus disorders documented in this encounter [facility]* Diagnosis Type 2 diabetes mellitus with hyperglycemia, with long-term current use of insulin ([facility])- Primary Benign essential HTN (CMS/HCC) ADD (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 deficit disorder without mention of hyperactivity MDD (major depressive disorder), recurrent episode, mild (HCC) ([facility]/HCC) Generalized anxiety disorder ([facility]/HCC) Generalized anxiety disorder Mild intermittent asthma without complication ([facility]) Complex regional pain syndrome type 1, affecting unspecified site Mixed hyperlipidemia ([facility]) Mixed hyperlipidemia manager terminal (current) use of insulin (Z79.4) ADD (attention deficit disorder) without hyperactivity- Primary Attention deficit disorder without mention of hyperactivity Type 2 diabetes mellitus with hyperglycemia, with long-term current use of insulin (CMS/HCC) Benign essential HTN (CMS/HCC) MDD (major depressive disorder), recurrent episode, mild (HCC) (CMS/HCC) Generalized anxiety disorder ([facility]/HCC) Generalized anxiety disorder Type 2 diabetes mellitus with hyperglycemia, with long-term current use of insulin ([facility]/HCC)- Primary Benign essential HTN (CMS/HCC) ADD [...] single episode, severe without psychotic features (HCC) ([facility]) Generalized anxiety disorder ([facility]/HCC) Generalized anxiety disorder Panic disorder ([facility]/HCC) Panic disorder without agoraphobia Insomnia, unspecified type documented in this encounter [facility]* Diagnosis Type 2 diabetes mellitus with hyperglycemia, with long-term current use of insulin ([facility])- Primary Benign essential HTN (CMS/HCC) ADD (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 deficit disorder without mention of hyperactivity MDD (major depressive disorder), recurrent episode, mild (HCC) ([facility]) Generalized anxiety disorder ([facility] Generalized anxiety disorder Mild intermittent asthma without complication ([facility]) Complex regional pain syndrome type 1, affecting unspecified site Mixed hyperlipidemia ([facility]) Mixed hyperlipidemia manager terminal (current) use of insulin (Z79.4) ADD (attention deficit disorder) without hyperactivity- Primary Attention deficit disorder without mention of hyperactivity Type 2 diabetes mellitus with hyperglycemia, with long-term current use of insulin ([facility]) Benign essential HTN (CMS/HCC) MDD (major depressive disorder), recurrent episode, mild (HCC) ([facility]/HCC) Generalized anxiety disorder ([facility]) Generalized anxiety disorder Type 2 diabetes mellitus with hyperglycemia, with long-term current use of insulin ([facility])- Primary Benign essential HTN (CMS/HCC) ADD (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 deficit disorder without mention of hyperactivity MDD (major depressive disorder), recurrent episode, mild (HCC) ([facility]) Generalized anxiety disorder ([facility]) Generalized anxiety disorder Type 2 diabetes mellitus with polyneuropathy ([facility]) Type II or unspecified type diabetes mellitus with neurological manifestations, not stated as uncontrolled Dysuria Breast cancer screening by mammogram Generalized anxiety disorder ([facility]) Generalized anxiety disorder ADD (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 deficit disorder without mention of hyperactivity documented [facility] encounter [facility]* Diagnosis Type 2 diabetes mellitus with hyperglycemia, with long-term current use of insulin ([facility])- Primary Benign essential HTN (CMS/HCC) ADD (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 deficit disorder without mention of hyperactivity MDD (major depressive disorder), recurrent episode, mild (HCC) (CMS/HCC) Generalized anxiety disorder (CMS/HCC) Generalized anxiety disorder Mild intermittent asthma without complication (CMS/HCC) Complex regional pain syndrome type 1, affecting unspecified site Mixed hyperlipidemia (CMS/HCC) Mixed hyperlipidemia shelter (current) use of insulin (Z79.4) ADD (attention deficit disorder) without hyperactivity- Primary Attention deficit disorder without mention of hyperactivity Type 2 diabetes mellitus with hyperglycemia, with long-term current use of insulin ([facility]/HCC) Benign essential HTN (CMS/HCC) MDD (major depressive disorder), recurrent episode, mild (HCC) ([facility]/HCC) Generalized anxiety disorder ([facility]/HCC) Generalized anxiety disorder Type 2 diabetes mellitus with hyperglycemia, with long-term current use of insulin ([facility]/HCC)- Primary Benign essential HTN (CMS/HCC) ADD (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 deficit disorder without mention of hyperactivity MDD (major depressive disorder), recurrent episode, mild (HCC) ([facility]/HCC) Generalized anxiety disorder ([facility]) Generalized anxiety disorder Type 2 diabetes mellitus with polyneuropathy ([facility]) Type II or unspecified type diabetes mellitus with neurological manifestations, not stated as uncontrolled Dysuria Breast cancer screening by mammogram Trochanteric bursitis of both hips- Primary documented in this encounter [facility]* Diagnosis Type 2 diabetes mellitus with hyperglycemia, with long-term current use of insulin ([facility])- Primary Benign essential HTN (CMS/HCC) ADD (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 deficit disorder without mention of hyperactivity MDD (major depressive disorder), recurrent episode, mild (HCC) ([facility]/HCC) Generalized anxiety disorder ([facility]/HCC) Generalized anxiety disorder Mild intermittent asthma without complication ([facility]/HCC) Complex regional pain syndrome type 1, affecting unspecified site Mixed hyperlipidemia (CMS/HCC) Mixed hyperlipidemia manager terminal (current) use of insulin (Z79.4) ADD (attention deficit disorder) without hyperactivity- Primary Attention deficit disorder without mention of hyperactivity Type 2 diabetes mellitus with hyperglycemia, with long-term current use of insulin ([facility]/HCC) Benign essential HTN (CMS/HCC) MDD (major depressive disorder), recurrent episode, mild (HCC) ([facility]/HCC) Generalized anxiety disorder ([facility]/HCC) Generalized anxiety disorder Type 2 diabetes mellitus with hyperglycemia, with long-term current use of insulin ([facility])- Primary Benign essential HTN (CMS/HCC) ADD (attention [...] migraine without aura and without status migrainosus (CMS/HCC)- Primary Cervical spondylosis Cervical spondylosis without myelopathy Lumbar spondylosis Lumbosacral spondylosis without myelopathy Complex regional pain syndrome type 1, affecting unspecified site Trochanteric bursitis of both hips documented in this encounter [facility] HealthcareEvaluation note* Diagnosis Intractable chronic migraine without aura and without status migrainosus- Primary Chronic migraine without aura, with intractable migraine, so stated, without mention of status migrainosus Chronic daily headache Headache Status migrainosus Variants of migraine, not elsewhere classified, without mention of intractable migraine without mention of status migrainosus [facility] Status migrainosus- Primary Variants of migraine, not elsewhere classified, without mention of intractable migraine without mention of status migrainosus [facility] Status migrainosus- Primary Variants of migraine, not elsewhere classified, without mention of intractable migraine without mention of status migrainosus [facility] Diagnosis Status migrainosus- Primary Variants of migraine, not elsewhere classified, without mention of intractable migraine without mention of status migrainosus [facility] Diagnosis Status migrainosus- Primary Variants of migraine, not elsewhere classified, without mention of intractable migraine without mention of status migrainosus [facility] Diagnosis Status migrainosus- Primary Variants of migraine, not elsewhere classified, without mention of intractable migraine without mention of status migrainosus [facility] Diagnosis Major depressive disorder, single episode, severe without psychotic features (HCC) (CMS/HCC) Generalized anxiety disorder (CMS/HCC) Generalized anxiety disorder documented in this encounter [facility]Evaluation [facility]* Diagnosis Major depressive disorder, single episode, severe without psychotic features (HCC) (CMS/HCC) Generalized anxiety disorder (CMS/HCC) Generalized anxiety disorder Panic disorder (CMS/HCC) Panic disorder without agoraphobia documented in this encounter [facility]* Diagnosis Generalized anxiety disorder ([facility]/HCC) Generalized anxiety disorder documented in this encounter [facility]* Diagnosis Type 2 diabetes mellitus with hyperglycemia, with long-term current use of insulin ([facility])- Primary Benign essential HTN (CMS/HCC) ADD (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 deficit disorder without mention of hyperactivity MDD (major depressive disorder), recurrent episode, mild (HCC) ([facility]/HCC) Generalized anxiety disorder ([facility]/HCC) Generalized anxiety disorder Mild intermittent asthma without complication (CMS/HCC) Complex regional pain syndrome type 1, affecting unspecified site Mixed hyperlipidemia (CMS/HCC) Mixed hyperlipidemia manager terminal (current) use of insulin (Z79.4) ADD (attention deficit disorder) without hyperactivity- Primary Attention deficit disorder without mention of hyperactivity Type 2 diabetes mellitus with hyperglycemia, with long-term current use of insulin ([facility]/HCC) Benign essential HTN (CMS/HCC) MDD (major depressive disorder), recurrent episode, mild (HCC) ([facility]/HCC) Generalized anxiety disorder ([facility]/HCC) Generalized anxiety disorder Type 2 diabetes mellitus with hyperglycemia, with long-term current use of insulin ([facility]/HCC)- Primary Benign essential HTN (CMS/HCC) ADD (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 deficit disorder without mention of hyperactivity MDD (major depressive disorder), recurrent episode, mild (HCC) ([facility]/HCC) Generalized anxiety disorder ([facility]/HCC) Generalized anxiety disorder Type 2 diabetes mellitus with polyneuropathy ([facility]) Type II or unspecified type diabetes mellitus with neurological manifestations, not stated as uncontrolled Dysuria Breast cancer screening by mammogram Type 2 diabetes mellitus with hyperglycemia, with long-term current use of insulin ([facility])- Primary Benign essential HTN (CMS/HCC) ADD (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 deficit disorder without mention of hyperactivity MDD (major depressive disorder), recurrent episode, mild (HCC) ([facility]/HCC) Generalized anxiety disorder ([facility]/HCC) Generalized anxiety disorder Type 2 diabetes mellitus with polyneuropathy ([facility]) Type II or unspecified type diabetes mellitus with neurological manifestations, not stated as uncontrolled Other chronic pancreatitis ([facility]) Acute non-recurrent pansinusitis documented in this encounter [facility]* Diagnosis Type 2 diabetes mellitus with hyperglycemia, with long-term current use of insulin ([facility])- Primary Benign essential HTN (CMS/HCC) ADD (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 deficit disorder without mention of hyperactivity MDD (major depressive disorder), recurrent episode, mild (HCC) ([facility]/HCC) Generalized anxiety disorder ([facility]/HCC) Generalized anxiety disorder Mild intermittent asthma without complication ([facility]/HCC) Complex regional pain syndrome type 1, affecting unspecified site Mixed hyperlipidemia (CMS/HCC) Mixed hyperlipidemia shelter (current) use of insulin (Z79.4) ADD (attention deficit disorder) without hyperactivity- Primary Attention deficit disorder without mention of hyperactivity Type 2 diabetes mellitus with hyperglycemia, with long-term current use of insulin ([facility]/HCC) Benign essential HTN ([facility]/HCC) MDD (major depressive disorder), recurrent episode, mild (HCC) ([facility]) Generalized anxiety disorder ([facility]) Generalized anxiety disorder Type 2 diabetes mellitus with hyperglycemia, with long-term current use of insulin ([facility])- Primary Benign essential HTN ([facility]/HCC) ADD (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 deficit disorder without mention of hyperactivity MDD (major depressive disorder), recurrent episode, mild (HCC) ([facility]) Generalized anxiety disorder ([facility]) Generalized anxiety disorder Type 2 diabetes mellitus with polyneuropathy ([facility]) Type II or unspecified type diabetes mellitus with neurological manifestations, not stated as uncontrolled Dysuria Breast cancer screening by mammogram Type 2 diabetes mellitus with hyperglycemia, with long-term current use of insulin ([facility])- Primary Benign essential HTN ([facility]/HCC) ADD (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 deficit disorder without mention of hyperactivity MDD (major depressive disorder), recurrent episode, mild (HCC) ([facility]) Generalized anxiety disorder ([facility]) Generalized anxiety disorder Type 2 diabetes mellitus with polyneuropathy ([facility]) Type II or unspecified type diabetes mellitus with neurological manifestations, not stated as uncontrolled Other chronic pancreatitis ([facility]) Acute non-recurrent pansinusitis Major depressive disorder, single episode, severe without psychotic features (HCC) ([facility]) Generalized anxiety disorder ([facility]) Generalized anxiety disorder Panic disorder ([facility]) Panic disorder without agoraphobia documented in [facility] encounter [facility]* Diagnosis Type 2 diabetes mellitus with hyperglycemia, with long-term current use of insulin ([facility])- Primary Benign essential HTN ([facility]/HCC) ADD (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 deficit disorder without mention of hyperactivity MDD (major depressive disorder), recurrent episode, mild (HCC) (CMS/HCC) Generalized anxiety disorder (CMS/HCC) Generalized anxiety disorder Mild intermittent asthma without complication (CMS/HCC) Complex regional pain syndrome type 1, affecting unspecified site Mixed hyperlipidemia (CMS/HCC) Mixed hyperlipidemia shelter (current) use of insulin (Z79.4) ADD (attention [...] hyperglycemia, with long-term current use of insulin ([facility])- Primary Benign essential HTN (CMS/HCC) ADD (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 deficit disorder without mention of hyperactivity MDD (major depressive disorder), recurrent episode, mild (HCC) (CMS/HCC) Generalized anxiety disorder (CMS/HCC) Generalized anxiety disorder Type 2 diabetes mellitus with polyneuropathy ([facility]) Type II or unspecified type diabetes mellitus with neurological manifestations, not stated as uncontrolled Dysuria Breast cancer screening by mammogram Type 2 diabetes mellitus with hyperglycemia, with long-term current use of insulin ([facility])- Primary Benign essential HTN (CMS/HCC) ADD (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 deficit disorder without mention of hyperactivity MDD (major depressive disorder), recurrent episode, mild (HCC) (CMS/HCC) Generalized anxiety disorder ([facility]/HCC) Generalized anxiety disorder Type 2 diabetes mellitus with polyneuropathy ([facility]) Type II or unspecified type diabetes mellitus with neurological manifestations, not stated as uncontrolled Other chronic pancreatitis ([facility]/HCC) Acute non-recurrent pansinusitis Lumbar spondylosis Lumbosacral spondylosis without myelopathy Cervical spondylosis Cervical spondylosis without myelopathy Other nerve root and plexus disorders documented in this encounter [facility]* Diagnosis Type 2 diabetes mellitus with hyperglycemia, with long-term current use of insulin ([facility]/HCC)- Primary Benign essential HTN (CMS/HCC) ADD (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 deficit disorder without mention of hyperactivity MDD (major depressive disorder), recurrent episode, mild (HCC) (CMS/HCC) Generalized anxiety disorder (CMS/HCC) Generalized anxiety disorder Mild intermittent asthma without complication (CMS/HCC) Complex regional pain syndrome type 1, affecting unspecified site Mixed hyperlipidemia (CMS/HCC) Mixed hyperlipidemia manager terminal (current) use of insulin (Z79.4) ADD (attention deficit disorder) without hyperactivity- Primary Attention deficit disorder without mention of hyperactivity Type 2 diabetes mellitus with hyperglycemia, with long-term current use of insulin (CMS/HCC) Benign essential HTN (CMS/HCC) MDD (major depressive disorder), recurrent episode, mild (HCC) (CMS/HCC) Generalized anxiety disorder ([facility]/HCC) Generalized anxiety disorder Type 2 diabetes mellitus with hyperglycemia, with long-term current use of insulin ([facility]/HCC)- Primary Benign essential HTN (CMS/HCC) ADD (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 deficit disorder without mention of hyperactivity MDD (major depressive disorder), recurrent episode, mild (HCC) (CMS/HCC) Generalized anxiety disorder ([facility]/HCC) Generalized anxiety disorder Type 2 diabetes mellitus with polyneuropathy ([facility]) Type II or unspecified type diabetes mellitus with neurological manifestations, not stated as uncontrolled Dysuria Breast cancer screening by mammogram Type 2 diabetes mellitus with hyperglycemia, with long-term current use of insulin ([facility]/HCC)- Primary Benign essential HTN (CMS/HCC) ADD (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 deficit disorder without mention of hyperactivity MDD (major depressive disorder), recurrent episode, mild (HCC) ([facility]/HCC) Generalized anxiety disorder ([facility]/HCC) Generalized anxiety disorder Type 2 diabetes mellitus with polyneuropathy ([facility]) Type II or unspecified type diabetes mellitus with neurological manifestations, not stated as uncontrolled Other chronic pancreatitis ([facility]) Acute non-recurrent pansinusitis Generalized anxiety disorder ([facility]/HCC) Generalized anxiety disorder Hyperlipidemia, unspecified ([facility]/HCC) documented in this encounter [facility]* Diagnosis Type 2 diabetes mellitus with hyperglycemia, with long-term current use of insulin ([facility]/HCC)- Primary Benign essential HTN (CMS/HCC) ADD (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 deficit disorder without mention of hyperactivity MDD (major depressive disorder), recurrent episode, mild (HCC) ([facility]/HCC) Generalized anxiety disorder (CMS/HCC) Generalized anxiety disorder Mild intermittent asthma without complication (CMS/HCC) Complex regional pain syndrome type 1, affecting unspecified site Mixed hyperlipidemia (CMS/HCC) Mixed hyperlipidemia shelter (current) use of insulin (Z79.4) ADD (attention [...] Other chronic pancreatitis (CMS/HCC) Acute non-recurrent pansinusitis Major depressive disorder, single episode, severe without psychotic features (HCC) (CMS/HCC) Generalized anxiety disorder (CMS/HCC) Generalized anxiety disorder Panic disorder ([facility]/HCC) Panic disorder without agoraphobia documented in this encounter [facility]* Diagnosis Type 2 diabetes [...] unspecified site Mixed hyperlipidemia (CMS/HCC) Mixed hyperlipidemia shelter (current) use of insulin (Z79.4) ADD (attention deficit disorder) without hyperactivity- Primary Attention deficit disorder without mention of hyperactivity Type 2 diabetes mellitus with hyperglycemia, with long-term current use of insulin ([facility]/HCC) Benign essential HTN ([facility]/HCC) MDD (major depressive disorder), recurrent episode, mild (HCC) ([facility]/HCC) Generalized anxiety disorder ([facility]) Generalized anxiety disorder Type 2 diabetes mellitus with hyperglycemia, with long-term current use of insulin ([facility])- Primary Benign essential HTN ([facility]/HCC) ADD (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 deficit disorder without mention of hyperactivity MDD (major depressive disorder), recurrent episode, mild (HCC) ([facility]/HCC) Generalized anxiety disorder ([facility]/HCC) Generalized anxiety disorder Type 2 diabetes mellitus with polyneuropathy ([facility]) Type II or unspecified type diabetes mellitus with neurological manifestations, not stated as uncontrolled Dysuria Breast cancer screening by mammogram Type 2 diabetes mellitus with hyperglycemia, with long-term current use of insulin ([facility])- Primary Benign essential HTN ([facility]/HCC) ADD (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 deficit disorder without mention of hyperactivity MDD (major depressive disorder), recurrent episode, mild (HCC) ([facility]) Generalized anxiety disorder ([facility]) Generalized anxiety disorder Type 2 diabetes mellitus with polyneuropathy ([facility]) Type II or unspecified type diabetes mellitus with neurological manifestations, not stated as uncontrolled Other chronic pancreatitis Acute non-recurrent pansinusitis Medicare annual wellness visit, subsequent- Primary Type 2 diabetes mellitus with hyperglycemia, with long-term current use of insulin ([facility]) Benign essential HTN ([facility]/HCC) Dyslipidemia ([facility]) Other and unspecified hyperlipidemia Encounter for long-term (current) use of medications Encounter for long-term (current) use of other medications Abnormal TSH Other chronic pancreatitis documented in this encounter [facility]* Diagnosis Type 2 diabetes mellitus with hyperglycemia, with long-term current use of insulin ([facility])- Primary Benign essential HTN ([facility]/HCC) ADD (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 deficit disorder without mention of hyperactivity MDD (major depressive disorder), recurrent episode, mild (HCC) ([facility]) Generalized anxiety disorder ([facility]) Generalized anxiety disorder Mild intermittent asthma without complication ([facility]) Complex regional pain syndrome type 1, affecting unspecified site Mixed hyperlipidemia ([facility]) Mixed hyperlipidemia shelter (current) use of insulin (Z79.4) ADD (attention deficit disorder) without hyperactivity- Primary Attention deficit disorder without mention of hyperactivity Type 2 diabetes mellitus with hyperglycemia, with long-term current use of insulin ([facility]/HCC) Benign essential HTN ([facility]/HCC) MDD (major depressive disorder), recurrent episode, mild (HCC) ([facility]/HCC) Generalized anxiety disorder ([facility]/HCC) Generalized anxiety disorder Type 2 diabetes mellitus with hyperglycemia, with long-term current use of insulin ([facility])- Primary Benign essential HTN ([facility]/HCC) ADD (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 deficit disorder without mention of hyperactivity MDD (major depressive disorder), recurrent episode, mild (HCC) ([facility]/HCC) Generalized anxiety disorder ([facility]/HCC) Generalized anxiety disorder Type 2 diabetes mellitus with polyneuropathy ([facility]) Type II or unspecified type diabetes mellitus with neurological manifestations, not stated as uncontrolled Dysuria Breast cancer screening by mammogram Type 2 diabetes mellitus with hyperglycemia, with long-term current use of insulin ([facility])- Primary Benign essential HTN ([facility]/HCC) ADD (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 deficit disorder without mention of hyperactivity MDD (major depressive disorder), recurrent episode, mild (HCC) ([facility]) Generalized anxiety disorder ([facility]) Generalized anxiety disorder Type 2 diabetes mellitus with polyneuropathy ([facility]) Type II or unspecified type diabetes mellitus with neurological manifestations, not stated as uncontrolled Other chronic pancreatitis Acute non-recurrent pansinusitis Medicare annual wellness visit, subsequent- Primary Type 2 diabetes mellitus with hyperglycemia, with long-term current use of insulin ([facility]) Benign essential HTN ([facility]/HCC) Dyslipidemia ([facility]) Other and unspecified hyperlipidemia Encounter for long-term (current) use of medications Encounter for long-term (current) use of other medications Abnormal TSH Other chronic pancreatitis Generalized anxiety disorder ([facility]/HCC) Generalized anxiety disorder documented in this encounter [facility]* Diagnosis Type 2 diabetes mellitus with hyperglycemia, with long-term current use of insulin ([facility])- Primary Benign essential HTN ([facility]/HCC) ADD (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 deficit disorder without mention of hyperactivity MDD (major depressive disorder), recurrent episode, mild (HCC) ([facility]) Generalized anxiety disorder ([facility]) Generalized anxiety disorder Mild intermittent asthma without complication ([facility]) Complex regional pain syndrome type 1, affecting unspecified site Mixed hyperlipidemia ([facility]/HCC) Mixed hyperlipidemia shelter (current) use of insulin (Z79.4) ADD (attention [...] [facility] Intractable chronic migraine without aura and without status migrainosus- Primary Chronic migraine without aura, with intractable migraine, so stated, without mention of status migrainosus Chronic daily headache [facility]ache [facility] Diagnosis Type 2 diabetes mellitus with hyperglycemia, with long-term current use of insulin (CMS/HCC)- Primary Benign essential HTN (CMS/HCC) ADD (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 deficit disorder without mention of hyperactivity MDD (major depressive disorder), recurrent episode, mild (HCC) ([facility]/HCC) Generalized anxiety disorder ([facility]/HCC) Generalized anxiety disorder Mild intermittent asthma without complication ([facility]) Complex regional pain syndrome type 1, affecting unspecified site Mixed hyperlipidemia (CMS/HCC) Mixed hyperlipidemia manager terminal (current) use of insulin (Z79.4) ADD (attention deficit disorder) without hyperactivity- Primary Attention deficit disorder without mention of hyperactivity Type 2 diabetes mellitus with hyperglycemia, with long-term current use of insulin (CMS/HCC) Benign essential HTN (CMS/HCC) MDD (major depressive disorder), recurrent episode, mild (HCC) ([facility]) Generalized anxiety disorder ([facility]) Generalized anxiety disorder Type 2 diabetes mellitus with hyperglycemia, with long-term current use of insulin ([facility])- Primary Benign essential HTN (CMS/HCC) ADD (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 deficit disorder without mention of hyperactivity MDD (major depressive disorder), recurrent episode, mild (HCC) ([facility]/HCC) Generalized anxiety disorder ([facility]/HCC) Generalized anxiety disorder Type 2 diabetes mellitus with polyneuropathy ([facility]) Type II or unspecified type diabetes mellitus with neurological manifestations, not stated as uncontrolled Dysuria Breast cancer screening by mammogram Type 2 diabetes mellitus with hyperglycemia, with long-term current use of insulin ([facility])- Primary Benign essential HTN (CMS/HCC) ADD (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 deficit disorder without mention of hyperactivity MDD (major depressive disorder), recurrent episode, mild (HCC) ([facility]) Generalized anxiety disorder ([facility]) Generalized anxiety disorder Type 2 diabetes mellitus with polyneuropathy ([facility]) Type II or unspecified type diabetes mellitus with neurological manifestations, not stated as uncontrolled Other chronic pancreatitis Acute non-recurrent pansinusitis Medicare annual wellness visit, subsequent- Primary Type 2 diabetes mellitus with hyperglycemia, with long-term current use of insulin ([facility]) Benign essential HTN (CMS/HCC) Dyslipidemia ([facility]/HCC) Other and unspecified hyperlipidemia Encounter for long-term (current) use of medications Encounter for long-term (current) use of other medications Abnormal TSH Other chronic pancreatitis Major depressive disorder, single episode, severe without psychotic features (HCC) ([facility]) Generalized anxiety disorder ([facility]) Generalized anxiety disorder Panic disorder ([facility]) Panic disorder without agoraphobia [facility] Localized osteoarthritis of left shoulder documented in this encounter [facility] note* Diagnosis Cervical spondylosis without myelopathy Lumbosacral spondylosis without myelopathy documented in this encounter [facility] note* Diagnosis Type 2 diabetes mellitus with hyperglycemia, with long-term current use of insulin ([facility])- Primary Benign essential HTN ([facility]/HCC) ADD (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 deficit disorder without mention of hyperactivity MDD (major depressive disorder), recurrent episode, mild (HCC) ([facility]) Generalized anxiety disorder ([facility]) Generalized anxiety disorder Mild intermittent asthma without complication ([facility]) Complex regional pain syndrome type 1, affecting unspecified site Mixed hyperlipidemia ([facility]) Mixed hyperlipidemia shelter (current) use of insulin (Z79.4) ADD (attention deficit disorder) without hyperactivity- Primary Attention deficit disorder without mention of hyperactivity Type 2 diabetes mellitus with hyperglycemia, with long-term current use of insulin ([facility]) Benign essential HTN ([facility]/HCC) MDD (major depressive disorder), recurrent episode, mild (HCC) ([facility]) Generalized anxiety disorder ([facility]) Generalized anxiety disorder Type 2 diabetes mellitus with hyperglycemia, with long-term current use of insulin ([facility])- Primary Benign essential HTN ([facility]/HCC) ADD (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 deficit disorder without mention of hyperactivity MDD (major depressive disorder), recurrent episode, mild (HCC) ([facility]) Generalized anxiety disorder ([facility] Generalized anxiety disorder Type 2 diabetes mellitus with polyneuropathy ([facility]) Type II or unspecified type diabetes mellitus with neurological manifestations, not stated as uncontrolled Dysuria Breast cancer screening by mammogram Type 2 diabetes mellitus with hyperglycemia, with long-term current use of insulin ([facility])- Primary Benign essential HTN ([facility]/HCC) ADD (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 deficit disorder without mention of hyperactivity MDD (major depressive disorder), recurrent episode, mild (HCC) ([facility]) Generalized anxiety disorder ([facility]) Generalized anxiety disorder Type 2 diabetes mellitus with polyneuropathy ([facility]) Type II or unspecified type diabetes mellitus with neurological manifestations, not stated as uncontrolled Other chronic pancreatitis Acute non-recurrent pansinusitis Medicare annual wellness visit, subsequent- Primary Type 2 diabetes mellitus with hyperglycemia, with long-term current use of insulin ([facility]) Benign essential HTN ([facility]) Dyslipidemia ([facility]) Other and unspecified hyperlipidemia Encounter for long-term (current) use of medications Encounter for long-term (current) use of other medications Abnormal TSH Other chronic pancreatitis Trochanteric bursitis of both hips- Primary Lumbar spondylosis Lumbosacral spondylosis without myelopathy Lumbar radiculopathy Thoracic or lumbosacral neuritis or radiculitis, unspecified Nerve root and plexus disorder, unspecified documented in this encounter [facility]Evaluation [facility]* Diagnosis Pain Generalized pain documented in this encounter [facility]* Diagnosis Lumbosacral spondylosis without myelopathy [facility] Diagnosis Type 2 diabetes mellitus with hyperglycemia, with long-term current use of insulin ([facility])- Primary Benign essential HTN ([facility]) ADD (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 deficit disorder without mention of hyperactivity MDD (major depressive disorder), recurrent episode, mild (HCC) ([facility]) Generalized anxiety disorder ([facility] Generalized anxiety disorder Mild intermittent asthma without complication ([facility]) Complex regional pain syndrome type 1, affecting unspecified site Mixed hyperlipidemia ([facility]) Mixed hyperlipidemia shelter (current) use of insulin (Z79.4) ADD (attention deficit disorder) without hyperactivity- Primary Attention deficit disorder without mention of hyperactivity Type 2 diabetes mellitus with hyperglycemia, with long-term current use of insulin ([facility]) Benign essential HTN ([facility]/HCC) MDD (major depressive disorder), recurrent episode, mild (HCC) ([facility]) Generalized anxiety disorder ([facility]) Generalized anxiety disorder Type 2 diabetes mellitus with hyperglycemia, with long-term current use of insulin ([facility])- Primary Benign essential HTN ([facility]) ADD (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 deficit disorder without mention of hyperactivity MDD (major depressive disorder), recurrent episode, mild (HCC) ([facility]) Generalized anxiety disorder ([facility]) Generalized anxiety disorder Type 2 diabetes mellitus with polyneuropathy ([facility]) Type II or unspecified type diabetes mellitus with neurological manifestations, not stated as uncontrolled Dysuria Breast cancer screening by mammogram Type 2 diabetes mellitus with hyperglycemia, with long-term current use of insulin ([facility])- Primary Benign essential HTN ([facility]/HCC) ADD (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 deficit disorder without mention of hyperactivity MDD (major depressive disorder), recurrent episode, mild (HCC) ([facility]/HCC) Generalized anxiety disorder ([facility]/HCC) Generalized anxiety disorder Type 2 diabetes mellitus with polyneuropathy ([facility]) Type II or unspecified type diabetes mellitus with neurological manifestations, not stated as uncontrolled Other chronic pancreatitis Acute non-recurrent pansinusitis Medicare annual wellness visit, subsequent- Primary Type 2 diabetes mellitus with hyperglycemia, with long-term current use of insulin ([facility]) Benign essential HTN ([facility]/HCC) Dyslipidemia ([facility]) Other and unspecified hyperlipidemia Encounter for long-term (current) use of medications Encounter for long-term (current) use of other medications Abnormal TSH Other chronic pancreatitis Type 2 diabetes mellitus with hyperglycemia, with long-term current use of insulin ([facility])- Primary Benign essential HTN ([facility]/HCC) ADD (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 deficit disorder without mention of hyperactivity MDD (major depressive disorder), recurrent episode, mild (HCC) ([facility]/HCC) Generalized anxiety disorder ([facility]) Generalized anxiety disorder Type 2 diabetes mellitus with polyneuropathy ([facility]) Type II or unspecified type diabetes mellitus with neurological manifestations, not stated as uncontrolled Acute non-recurrent pansinusitis documented in this encounter [facility] HealthcareEvaluation note* Diagnosis Type 2 diabetes mellitus with hyperglycemia, with long-term current use of insulin ([facility])- Primary Benign essential HTN ([facility]/HCC) ADD (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 deficit disorder without mention of hyperactivity MDD (major depressive disorder), recurrent episode, mild (HCC) ([facility]/HCC) Generalized anxiety disorder ([facility]/HCC) Generalized anxiety disorder Mild intermittent asthma without complication ([facility]) Complex regional pain syndrome type 1, affecting unspecified site Mixed hyperlipidemia ([facility]) Mixed hyperlipidemia manager terminal (current) use of insulin (Z79.4) ADD (attention deficit disorder) without hyperactivity- Primary Attention deficit disorder without mention of hyperactivity Type 2 diabetes mellitus with hyperglycemia, with long-term current use of insulin ([facility]/HCC) Benign essential HTN ([facility]/HCC) MDD (major depressive disorder), recurrent episode, mild (HCC) ([facility]) Generalized anxiety disorder ([facility]/HCC) Generalized anxiety disorder Type 2 diabetes [...] (major depressive disorder), recurrent episode, mild (HCC) ([facility]/HCC) Generalized anxiety disorder ([facility]/HCC) Generalized anxiety disorder Type 2 diabetes mellitus with polyneuropathy ([facility]/HCC) Type II or unspecified type diabetes mellitus with neurological manifestations, not stated as uncontrolled Other chronic pancreatitis Acute non-recurrent pansinusitis Medicare annual wellness visit, subsequent- Primary Type 2 diabetes mellitus with hyperglycemia, with long-term current use of insulin ([facility]/HCC) Benign essential HTN (CMS/HCC) Dyslipidemia ([facility]) Other and unspecified hyperlipidemia Encounter for long-term (current) use of medications Encounter for long-term (current) use of other medications Abnormal TSH Other chronic pancreatitis Type 2 diabetes mellitus with hyperglycemia, with long-term current use of insulin ([facility])- Primary Benign essential HTN (CMS/HCC) ADD (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 deficit disorder without mention of hyperactivity MDD (major depressive disorder), recurrent episode, mild (HCC) ([facility]/HCC) Generalized anxiety disorder ([facility]/HCC) Generalized anxiety disorder Type 2 diabetes mellitus with polyneuropathy ([facility]) Type II or unspecified type diabetes mellitus with neurological manifestations, not stated as uncontrolled Acute non-recurrent pansinusitis Major depressive disorder, single episode, severe without psychotic features (HCC) ([facility]/HCC) Generalized anxiety disorder ([facility]/HCC) Generalized anxiety disorder documented in this encounter [facility]Evaluation note* Diagnosis Type 2 diabetes mellitus with hyperglycemia, with long-term current use of insulin ([facility])- Primary Benign essential HTN (CMS/HCC) ADD (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 deficit disorder without mention of hyperactivity MDD (major depressive disorder), recurrent episode, mild (HCC) ([facility]/HCC) Generalized anxiety disorder (CMS/HCC) Generalized anxiety disorder Mild intermittent asthma without complication (CMS/HCC) Complex regional pain syndrome type 1, affecting unspecified site Mixed hyperlipidemia (CMS/HCC) Mixed hyperlipidemia manager terminal (current) use of insulin (Z79.4) ADD (attention deficit disorder) without hyperactivity- Primary Attention deficit disorder without mention of hyperactivity Type 2 diabetes mellitus with hyperglycemia, with long-term current use of insulin ([facility]) Benign essential HTN (CMS/HCC) MDD (major depressive disorder), recurrent episode, mild (HCC) ([facility]/HCC) Generalized anxiety disorder ([facility]) Generalized anxiety disorder Type 2 diabetes mellitus with hyperglycemia, with long-term current use of insulin ([facility])- Primary Benign essential HTN (CMS/HCC) ADD (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 deficit disorder without mention of hyperactivity MDD (major depressive disorder), recurrent episode, mild (HCC) ([facility]/HCC) Generalized anxiety disorder ([facility]) Generalized anxiety disorder Type 2 diabetes mellitus with polyneuropathy ([facility]) Type II or unspecified type diabetes mellitus with neurological manifestations, not stated as uncontrolled Dysuria Breast cancer screening by mammogram Type 2 diabetes mellitus with hyperglycemia, with long-term current use of insulin ([facility])- Primary Benign essential HTN ([facility]/HCC) ADD (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 deficit disorder without mention of hyperactivity MDD (major depressive disorder), recurrent episode, mild (HCC) ([facility]) Generalized anxiety disorder ([facility]) Generalized anxiety disorder Type 2 diabetes mellitus with polyneuropathy ([facility]) Type II or unspecified type diabetes mellitus with neurological manifestations, not stated as uncontrolled Other chronic pancreatitis Acute non-recurrent pansinusitis Medicare annual wellness visit, subsequent- Primary Type 2 diabetes mellitus with hyperglycemia, with long-term current use of insulin ([facility]/HCC) Benign essential HTN (CMS/HCC) Dyslipidemia ([facility]/HCC) Other and unspecified hyperlipidemia Encounter for long-term (current) use of medications Encounter for long-term (current) use of other medications Abnormal TSH Other chronic pancreatitis Generalized anxiety disorder (CMS/HCC) Generalized anxiety disorder Type 2 diabetes mellitus with hyperglycemia, with long-term current use of insulin ([facility])- Primary Benign essential HTN ([facility]/HCC) ADD (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 deficit disorder without mention of hyperactivity MDD (major depressive disorder), recurrent episode, mild (HCC) (CMS/HCC) Generalized anxiety disorder (CMS/HCC) Generalized anxiety disorder Type 2 diabetes mellitus with polyneuropathy ([facility]) Type II or unspecified type diabetes mellitus with neurological manifestations, not stated as uncontrolled Acute non-recurrent pansinusitis documented in this encounter [facility] HealthcareEvaluation note* Diagnosis Type 2 diabetes mellitus [...] affecting unspecified site Mixed hyperlipidemia Mixed hyperlipidemia shelter (current) use of insulin (Z79.4) ADD (attention [...] plexus disorder, unspecified documented in this encounter [facility] HealthcareEvaluation note* Diagnosis Type 2 diabetes [...] affecting unspecified site Mixed hyperlipidemia Mixed hyperlipidemia shelter (current) use of insulin (Z79.4) ADD (attention [...] and plexus disorders documented in this encounter [facility] HealthcareEvaluation note* Diagnosis Type 2 diabetes [...] affecting unspecified site Mixed hyperlipidemia Mixed hyperlipidemia shelter (current) use of insulin (Z79.4) ADD (attention [...] hyperglycemia, with long-term current use of insulin ([facility])- Primary Benign essential HTN ADD (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 deficit disorder without mention of hyperactivity MDD (major depressive disorder), recurrent episode, mild Generalized anxiety disorder Generalized anxiety disorder Type 2 diabetes mellitus with polyneuropathy ([facility]) Type II or unspecified type diabetes mellitus with neurological manifestations, not stated as uncontrolled Acute non-recurrent pansinusitis Type 2 diabetes mellitus with polyneuropathy (HCC) Type II or unspecified type diabetes mellitus with neurological manifestations, not stated as uncontrolled Generalized anxiety disorder Generalized anxiety [facility] Intractable chronic migraine without aura and without status migrainosus- Primary Chronic migraine without aura, with intractable migraine, so stated, without mention of status migrainosus Chronic daily headache Headache [facility] Diagnosis Type 2 diabetes mellitus with hyperglycemia, with long-term current use of insulin ([facility])- Primary Benign essential HTN ADD (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 deficit disorder without mention of hyperactivity MDD (major depressive disorder), recurrent episode, mild Generalized anxiety disorder Generalized anxiety disorder Mild intermittent asthma without complication ([facility]) Complex regional pain syndrome type 1, affecting unspecified site Mixed hyperlipidemia Mixed hyperlipidemia manager terminal (current) use of insulin (Z79.4) ADD (attention deficit disorder) without hyperactivity- Primary Attention deficit disorder without mention of hyperactivity Type 2 diabetes mellitus with hyperglycemia, with long-term current use of insulin ([facility]) Benign essential HTN MDD (major depressive disorder), [...] Type 2 diabetes mellitus with polyneuropathy ([facility]) Type II or unspecified type diabetes mellitus with neurological manifestations, not stated as uncontrolled Dysuria Breast cancer screening by mammogram Type 2 diabetes mellitus with hyperglycemia, with long-term current use of insulin ([facility])- Primary Benign essential HTN ADD (attention deficit [...] History CHOLECYSTECTOMY Hospitalization History SEE ABOVE SURGERY [employer] Other Hospital Discharge instructions Additional Instructions Avoid trauma to the surgical site.[facility] Work Phone: Reason for visit Narrative* Imaging (Routine) - Pending Review Specialty Diagnoses / Procedures Referred By Mary t Referred To Contact Radiology Diagnoses Pain Procedures FLUORO FOR SURGICAL PROCEDURES Jessee Billy MD [address] [address] [place] [address] Phone: tel: fax: Referral ID Status Reason Start Date Expiration Date V isits Requested Visits Authorized [id number] Pending Review 10/08/2024 10/08/2025 1 1 [facility] Summary Purpose Family History No [...] and content) DATE CREATED AUTHOR 01/27/2020 [facility] DATE CREATED AUTHOR AUTHOR'S ORGANIZ ATION 03/25/2021 [facility] DATE CREATED AUTHOR AUTHOR'S ORGANIZ ATION 09/02/2022 [facility] DATE CREATED AUTHOR AUTHOR'S ORGANIZ ATION 03/10/2024 [facility] DATE CREATED AUTHOR AUTHOR'S ORGANIZ ATION 10/10/2024 [facility] DATE CREATED AUTHOR AUTHOR'S ORGANIZ ATION 12/24/2024 [facility] DATE CREATED AUTHOR AUTHOR'S ORGANIZ ATION 01/02/2025 [facility] DATE CREATED AUTHOR AUTHOR'S ORGANIZ ATION 01/17/2025 [facility] DATE CREATED AUTHOR AUTHOR'S ORGANIZ ATION 01/20/2025 [facility] Source Comments (unrecognize d section and content) In the event this informatio n is protected by the Federal Confidentiality of Alcohol and Drug Abuse Patient Records regulations: The Federal rules restrict any use of the information to criminally investigate or prosecute any alcohol or drug abuse patient.[facility] [place] the event this information is protected by the Federal Confidentiality of Alcohol and Drug Abuse Patient Records regulations: The Federal rules restrict any use of the information to criminally investigate or prosecute any alcohol or drug abuse patient.[facility] [place] the event this information is protected by the Federal Confidentiality of Alcohol and Drug Abuse Patient Records regulations: The Federal rules restrict any use of the information to criminally investigate or prosecute any alcohol or drug abuse patient.[facility] [place] the event this information is protected by the Federal Confidentiality of Alcohol and Drug Abuse Patient Records regulations: The Federal rules restrict any use of the information to criminally investigate or prosecute any alcohol or drug abuse patient.[facility] [place] the event this information is protected by the Federal Confidentiality of Alcohol and Drug Abuse Patient Records regulations: The Federal rules restrict any use of the information to criminally investigate or prosecute any alcohol or drug abuse patient.[facility] [place] the event this information is protected by the Federal Confidentiality of Alcohol and Drug Abuse Patient Records regulations: The Federal rules restrict any use of the information to criminally investigate or prosecute any alcohol or drug abuse patient.[facility] [place] the event this information is protected by the Federal Confidentiality of Alcohol and Drug Abuse Patient Records regulations: The Federal rules restrict any use of the information to criminally investigate or prosecute any alcohol or drug abuse patient.[facility] [place] the event this information is protected by the Federal Confidentiality of Alcohol and Drug Abuse Patient Records regulations: The Federal rules restrict any use of the information to criminally investigate or prosecute any alcohol or drug abuse patient.[facility] [place] the event this information is protected by the Federal Confidentiality of Alcohol and Drug Abuse Patient Records regulations: The Federal rules restrict any use of the information to criminally investigate or prosecute any alcohol or drug abuse patient.[facility] [place] the event this information is protected by the Federal Confidentiality of Alcohol and Drug Abuse Patient Records regulations: The Federal rules restrict any use of the information to criminally investigate or prosecute any alcohol or drug abuse patient.[facility] [place] the event this information is protected by the Federal Confidentiality of Alcohol and Drug Abuse Patient Records regulations: The Federal rules restrict any use of the information to criminally investigate or prosecute any alcohol or drug abuse patient.[facility] [place] the event this information is protected by the Federal Confidentiality of Alcohol and Drug Abuse Patient Records regulations: The Federal rules restrict any use of the information to criminally investigate or prosecute any alcohol or drug abuse patient.[facility] [place] the event this information is protected by the Federal Confidentiality of Alcohol and Drug Abuse Patient Records regulations: The Federal rules restrict any use of the information to criminally investigate or prosecute any alcohol or drug abuse patient.[facility] [place] the event this information is protected by the Federal Confidentiality of Alcohol and Drug Abuse Patient Records regulations: The Federal rules restrict any use of the information to criminally investigate or prosecute any alcohol or drug abuse patient.[facility] [place]woodIn the event this information is protected by the Federal Confidentiality of Alcohol and Drug Abuse Patient Records regulations: The Federal rules restrict any use of the information to criminally investigate or prosecute any alcohol or drug abuse patient.[facility] [place]In the event this information is protected by the Federal Confidentiality of Alcohol and Drug Abuse Patient Records regulations: The Federal rules restrict any use of the information to criminally investigate or prosecute any alcohol or drug abuse patient.[facility] [place]In the event this information is protected by the Federal Confidentiality of Alcohol and Drug Abuse Patient Records regulations: The Federal rules restrict any use of the information to criminally investigate or prosecute any alcohol or drug abuse patient.[facility] [place]In the event this information is protected by the Federal Confidentiality of Alcohol and Drug Abuse Patient Records regulations: The Federal rules restrict any use of the information to criminally investigate or prosecute any alcohol or drug abuse patient.[facility] [place]woodIn the event this information is protected by the Federal Confidentiality of Alcohol and Drug Abuse Patient Records regulations: The Federal rules restrict any use of the information to criminally investigate or prosecute any alcohol or drug abuse patient.[facility] [place]woodIn the event this information is protected by the Federal Confidentiality of Alcohol and Drug Abuse Patient Records regulations: The Federal rules restrict any use of the information to criminally investigate or prosecute any alcohol or drug abuse patient.[facility] [place]woodIn the event this information is protected by the Federal Confidentiality of Alcohol and Drug Abuse Patient Records regulations: The Federal rules restrict any use of the information to criminally investigate or prosecute any alcohol or drug abuse patient.[facility] [place]woodIn the event this information is protected by the Federal Confidentiality of Alcohol and Drug Abuse Patient Records regulations: The Federal rules restrict any use of the information to criminally investigate or prosecute any alcohol or drug abuse patient.[facility] Reason for Visit (unrecogniz ed section and content) Reason Comments Follow Up Botox Specialty Diagnoses / Procedures Referred By Contac t Referred To Contact HEADACHE Diagnoses Chronic migraine without aura, intractable, without status migrainosus Procedures BOTULINUM TOXIN A PER 1 UNIT CHEMODERVATE FACIAL/TRIGEM/CERV MUSC MIGRAINE Renewal due 06/29/2024 Botox 200 units every 12 weeks for 1 year through [facility] buy and bill. Preempt protocol [id number] Procedure -[id number] chemodervate facial/trigem/cerv musc migraine 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, RASHAD.[employer] [address] [place] [address] Phone: tel: fax: Neurology [address] [id number] Phone: tel: fax: Referral ID Status Reason Start Date Expiration Date V isits Requested Visits Authorized [id number] Authorized 07/28/2024 01/28/2025 12 12 Reason Comments Botox Injection Specialty Diagnoses / Procedures Referred By Contac t Referred To Contact HEADACHE Diagnoses Chronic migraine without aura, intractable, without status migrainosus Procedures BOTULINUM TOXIN A PER 1 UNIT CHEMODERVATE FACIAL/TRIGEM/CERV MUSC MIGRAINE Renewal due 11/07/2021 Botox 200 units every 12 weeks for 1 year through [facility] buy and bill Preempt protocol [id number] Procedure -[id number] chemodervate facial/trigem/cerv musc migraine 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, ELECTRIC NEEDLE SPECIALIST.[employer] SALES COUNTER MANAGER [address] [place] [address] Neur Headache Main [address] [phone] Referral ID Status Reason Start Date Expiration Date Visits Re quested Visits Authorized [id number] Closed 10/27/2021 04/28/2022 2 2 Reason Comments Referral Request Reason Comments Migraine Referral ID Status Reason Start Date Expiration Date V isits Requested Visits Authorized [id number] Authorized 10/27/2021 04/28/2022 2 2 Specialty Diagnoses / Procedures Referred By Contac t Referred To Contact HEADACHE Diagnoses Chronic migraine without aura, intractable, without status migrainosus Procedures BOTULINUM TOXIN A PER 1 UNIT CHEMODERVATE FACIAL/TRIGEM/CERV MUSC MIGRAINE Renewal - next visit expected on 10/09/22 Botox 200 units every 12 weeks for 1 year through [facility] buy and bill Preempt protocol [id number] Procedure -[id number] chemodervate facial/trigem/cerv musc migraine 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, ELECTRIC NEEDLE SPECIALIST.[employer] SALES COUNTER MANAGER [address] [place] [address] Neur Headache Main [address] [phone] Referral ID Status Reason Start Date Expiration Date V isits Requested Visits Authorized [id number] Waiting for Response 07/19/2022 09/17/2023 5 5 [...] Expiration Date V isits Requested Visits Authorized [id number] Closed Financial Clearance Not Required 10/30/2023 04/30/2024 4 4 Reason Comments Infusion Headache Specialty Diagnoses / Procedures Referred By Contac t Referred To Contact Neurology / HEADACHE Diagnoses Non-DHE Infusion Day #1 Procedures INFUSION HEADACHE 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, ELECTRIC NEEDLE SPECIALIST.[employer] SALES COUNTER MANAGER [address] [phone] Neur Headache Main [address] [phone] Referral ID Status Reason Start Date Expiration Date V isits Requested Visits Authorized [id number] Authorized 04/08/2024 07/07/2024 1 99 Reason Comments Infusion Specialty Diagnoses / Procedures Referred By Contac t Referred To Contact Neurology / HEADACHE Diagnoses Follow-up exam Procedures OFFICE/OUTPATIENT ESTABLISHED HIGH MDM 40 MIN EST NI PATIENT Self Marilynn Lua PA-C [address] [place] [address] Referral ID Status Reason Start Date Expiration Date V isits Requested Visits Authorized [id number] Authorized 04/10/2024 04/10/2025 99 99 Reason Comments Follow-up 3m Flank Pain bilateral Sinusitis Congestion Reason Comments Medicare Annual Wellness Visit [facility] t wellness Reason Comments Back Pain Right MBB Specialty Diagnoses / Procedures Referred By Contac t Referred To Contact Pain Management Diagnoses PRECERT- RIGHT MBB L345 #1 Procedures INJ DX/THER AGNT PARAVERT FACET JOINT, LUMBAR/SAC, 1ST LEVEL Jessee Billy MD [address] [facility] [address] [place] [address] Phone: tel: fax: Referral ID Status Reason Start Date Expiration Date V isits Requested Visits Authorized [id number] Authorized 09/17/2024 03/16/2025 1 1 Reason Comments Follow-up 3m Earache Left ear pain Reason Comments Forms Care Teams (unrecognized sec tion and content) Team Status: Active Member Role Status Dates Josh Ochoa MD Primary Care Provider Active Team Status: Inactive Member Role Status Dates Josh Ochoa MD Primary Care Provider Active Lee Chowdary MD Attending Provider Active Foot Specialist Relationship Specialty Start Date End Date Josh Ochoa PCP - General Family Practice 08/01/16 Deja Martins CNP Family Practice 09/17/16 Foot Specialist Relationship Specialty Start Date End Date Josh Ochoa PCP - General Family Practice 08/01/16 Deja Martins CNP Family Practice 09/17/16 Team Status: Inactive Member Role Status Dates Josh Ochoa MD Primary Care Provider Active Marie Elias MD Attending Provider Active Foot Specialist Relationship Specialty Start Date End Date Josh Ochoa PCP - General Family Medicine 08/01/16 Deja Martins CNP Family Medicine 09/17/16 Foot Specialist Relationship Specialty Start Date End Date Josh Ochoa PCP - General Family Medicine 08/01/16 Deja Martins CNP Family Medicine 09/17/16 Foot Specialist Relationship Specialty Start Date End Date Josh Ochoa PCP - General Family Medicine 08/01/16 Deja Martins CNP Family Medicine 09/17/16 Foot Specialist Relationship Specialty Start Date End Date Josh Ochoa PCP - General Family Medicine 08/01/16 Deja Martins CNP Family Medicine 09/17/16 Foot Specialist Relationship Specialty Start Date End Date Josh Ochoa PCP - General Family Medicine 08/01/16 Deja Martins CNP Family Medicine 09/17/16 Foot Specialist Relationship Specialty Start Date End Date Josh Ochoa PCP - General Family Medicine 08/01/16 Deja Martins CNP Family Medicine 09/17/16 Foot Specialist Relationship Specialty Start Date End Date Josh Ochoa MD [address] [place] [address] PCP - General Family Medicine 06/17/23 Foot Specialist Relationship Specialty Start Date End Date Josh Ochoa MD [address] [place] [address] PCP - General Family Medicine 06/17/23 Foot Specialist Relationship Specialty Start Date End Date Josh Ochoa MD [address] [place] [address] PCP - General Family Medicine 06/17/23 Foot Specialist Relationship Specialty Start Date End Date Josh Ochoa MD [address] [place] [address] PCP - General Family Medicine 06/17/23 Foot Specialist Relationship Specialty Start Date End Date Josh Ochoa PCP - General Family Medicine 08/01/16 Deja Martins CNP Family Medicine 09/17/16 Foot Specialist Relationship Specialty Start Date End Date Josh Ochoa MD [address] [place] [address] PCP - General Family Medicine 06/17/23 Josh Ochoa MD [address] [place] [address] PCP - [employer] 02/10/23 Foot Specialist Relationship Specialty Start Date End Date Josh Ochoa MD [address] [place] [address] PCP - General Family Medicine 06/17/23 Josh Ochoa MD [address] [place] [address] PCP - [employer] 02/10/23 Foot Specialist Relationship Specialty Start Date End Date Josh Ochoa MD [address] [place] [address] PCP - General Family Medicine 06/17/23 Josh Ochoa MD [address] [place] [address] PCP - [employer] 02/10/23 Foot Specialist Relationship Specialty Start Date End Date Josh Ochoa MD [address] [place] [address] PCP - General Family Medicine 06/17/23 Josh Ochoa MD [address] [place] [address] PCP - [employer] 02/10/23 Foot Specialist Relationship Specialty Start Date End Date Josh Ochoa MD PCP - General Family Medicine 08/01/16 Deja Martins CNP Family Medicine 09/17/16 Foot Specialist Relationship Specialty Start Date End Date Josh Ochoa MD PCP - General Family Medicine 08/01/16 Deja Martins CNP Family Medicine 09/17/16 Team Status: Inactive Member Role Status Dates Josh Ochoa MD Primary Care Provider Active S tart: January 08, 2024 End: January 08, 2024 Al Kumar MD Attending Provider Active Start: January 08, 2024 End: January 08, 2024 Foot Specialist Relationship Specialty Start Date End Date Josh Ochoa MD [address] [place] [address] PCP - General Family Medicine 06/17/23 Josh Ochoa MD [address] [place] [address] PCP - [employer] 02/10/23 Foot Specialist Relationship Specialty Start Date End Date Josh Ochoa MD [address] [place] [address] PCP - General Family Medicine 06/17/23 Josh Ochoa MD [address] [place] [address] PCP - [employer] 02/10/23 Foot Specialist Relationship Specialty Start Date End Date Josh Ochoa MD [address] [place] [address] PCP - General Family Medicine 06/17/23 Josh Ochoa MD [address] [place] [address] PCP - [employer] 02/10/23 Foot Specialist Relationship Specialty Start Date End Date Josh Ochoa MD [address] [place] [address] PCP - General Family Medicine 06/17/23 Josh Ochoa MD [address] [place] [address] PCP - [employer] 02/10/23 Foot Specialist Relationship Specialty Start Date End Date Josh Ochoa MD PCP - General Family Medicine 08/01/16 Deja Martins CNP Family Medicine 09/17/16 Foot Specialist Relationship Specialty Start Date End Date Josh Ochoa MD PCP - General Family Medicine 08/01/16 Deja Martins CNP Family Medicine 09/17/16 Foot Specialist Relationship Specialty Start Date End Date Josh Ochoa MD PCP - General Family Medicine 08/01/16 Deja Martins CNP Family Medicine 09/17/16 Foot Specialist Relationship Specialty Start Date End Date Josh Ochoa MD PCP - General Family Medicine 08/01/16 Deja Martins CNP Family Medicine 09/17/16 Foot Specialist Relationship Specialty Start Date End Date Josh Ochoa MD PCP - General Family Medicine 08/01/16 Deja Martins CNP Family Medicine 09/17/16 Foot Specialist Relationship Specialty Start Date End Date Josh Ochoa MD [address] [place] [address] PCP - General Family Medicine 06/17/23 Josh Ochoa MD [address] [place] [address] PCP - [employer] 02/10/23 Foot Specialist Relationship Specialty Start Date End Date Josh Ochoa MD [address] [place] [address] PCP - General Family Medicine 06/17/23 Josh Ochoa MD [address] [place] [address] PCP - [employer] 02/10/23 Foot Specialist Relationship Specialty Start Date End Date Josh Ochoa MD [address] [place] [address] PCP - General Family Medicine 06/17/23 Josh Ochoa MD [address] [place] [address] PCP - [employer] 02/10/23 Foot Specialist Relationship Specialty Start Date End Date Josh Ochoa MD [address] [place] [address] PCP - General Family Medicine 06/17/23 Josh Ochoa MD [address] [place] [address] PCP - [employer] 02/10/23 Foot Specialist Relationship Specialty Start Date End Date Josh Ochoa MD [address] [place] [address] PCP - General Family Medicine 06/17/23 Josh Ochoa MD [address] [place] [address] PCP - [employer] 02/10/23 Foot Specialist Relationship Specialty Start Date End Date Josh Ochoa MD [address] [place] [address] PCP - General [facility] 06/17/23 Josh Ochoa MD [address] [place] [address] PCP - [employer] 02/10/23 Foot Specialist Relationship Specialty Start Date End Date Josh Ochoa MD [address] [place] [address] PCP - General Family Medicine 06/17/23 Josh Ochoa MD [address] [place] [address] PCP - [employer] 02/10/23 Foot Specialist Relationship Specialty Start Date End Date Josh Ochoa MD [address] [place] [address] PCP - General Family Medicine 06/17/23 Josh Ochoa MD [address] [place] [address] PCP - [employer] 02/10/23 Dc Jackson [facility] [address] [place], [place] [address] Welding Machine Assembler Behavioral Health 05/26/24 Foot Specialist Relationship Specialty Start Date End Date Josh Ochoa MD [address] [place] [address] PCP - General Family Medicine 06/17/23 Josh Ochoa MD [address] [place] [address] PCP - [employer] 02/10/23 Dc Jackson [facility] [address] [place] [address] Welding Machine As[employer] Behavioral [facility] 05/26/24 Foot Specialist Relationship Specialty Start Date End Date Josh Ochoa MD [address] [place] [address] PCP - General Family Medicine 06/17/23 Josh Ochoa MD [address] [place] [address] PCP - [employer] 02/10/23 Dc Jackson [facility] [address] [place], [place] [address] Welding Machine As[employer] Behavioral [facility] 05/26/24 Foot Specialist Relationship Specialty Start Date End Date Josh Ochoa MD [address] [place] [address] PCP - General Family Medicine 06/17/23 Josh Ochoa MD [address] [place] [address] PCP - [employer] 02/10/23 Dc Jackson, [facility] [address] [place] [address] Welding Machine As[employer] Behavioral [facility] 05/26/24 Foot Specialist Relationship Specialty Start Date End Date Josh Ochoa MD [address] [place] [address] PCP - General Family Medicine 06/17/23 Josh Ochoa MD [address] [place] [address] PCP - [employer] 02/10/23 Dc Jackson, [facility] [address] [place] [address] Welding Machine As[employer] Behavioral [facility] 05/26/24 Foot Specialist Relationship Specialty Start Date End Date Josh Ochoa MD [address] [place] [address] PCP - General Family Medicine 06/17/23 Josh Ochoa MD [address] [place] [address] PCP - [employer] 02/10/23 Dc Jackson, [facility] [address] [place] [address] Welding Machine As[employer] Behavioral [facility] 05/26/24 Foot Specialist Relationship Specialty Start Date End Date Josh Ochoa MD [address] [place] [address] PCP - General Family Medicine 06/17/23 Josh Ochoa MD [address] [place] [address] PCP - [employer] 02/10/23 Dc Jackson, [facility] [address] [place] [address] Welding Machine Assembler Behavioral Health 05/26/24 Foot Specialist Relationship Specialty Start Date End Date Josh Ochoa MD [address] [place] [address] PCP - General Family Medicine 06/17/23 Josh Ochoa MD [address] [place] [address] PCP - [employer] 02/10/23 Dc Jackson, [facility] [address] [place] [address] Welding Machine Assembler Behavioral Health 05/26/24 Foot Specialist Relationship Specialty Start Date End Date Josh Ochoa MD [address] [place] [address] PCP - General Family Medicine 06/17/23 Josh Ochoa MD [address] [place] [address] PCP - [employer] 02/10/23 Dc Jackson, [facility] [address] [place] [address] Welding Machine As[employer]er Behavioral Health 05/26/24 Foot Specialist Relationship Specialty Start Date End Date Josh Ochoa MD [address] [place] [address] PCP - General Family Medicine 06/17/23 Josh Ochoa MD [address] [place] [address] PCP - [employer] 02/10/23 Dc Jackson, [facility] [address] [place] [address] Welding Machine Assembler Behavioral Health 05/26/24 Foot Specialist Relationship Specialty Start Date End Date Josh Ochoa MD [address] [place] [address] PCP - General Family Medicine 06/17/23 Josh Ochoa MD [address] [place] [address] PCP - [employer] 02/10/23 Dc Jackson, [facility] [address] [place] [address] Welding Machine Assembler Behavioral Health 05/26/24 Foot Specialist Relationship Specialty Start Date End Date Josh Ochoa MD PCP - General Family Medicine 08/01/16 Deja Martins CNP Family Medicine 09/17/16 Foot Specialist Relationship Specialty Start Date End Date Josh Ochoa MD [address] [place] [address] PCP - General Family Medicine 06/17/23 Josh Ochoa MD [address] [place] [address] PCP - [employer] 02/10/23 Dc Jackson, [facility] [address] [address] Welding Machine As[employer]er Behavioral Health 05/26/24 Foot Specialist Relationship Specialty Start Date End Date Josh Ochoa MD [address] [place] [address] PCP - General Family Medicine 09/10/24 Foot Specialist Relationship Specialty Start Date End Date Josh Ochoa MD [address] [place] [address] PCP - General Family Medicine 09/10/24 Foot Specialist Relationship Specialty Start Date End Date Josh Ochoa MD [address] [place] [address] PCP - General Family Medicine 06/17/23 Josh Ochoa MD [address] [place] [address] PCP - [employer] 02/10/23 Dc Jackson, [facility] [address] [place] [address] Welding Machine As[employer] Behavioral Health 05/26/24 Foot Specialist Relationship Specialty Start Date End Date Josh Ochoa MD [address] [place] [address] PCP - General Family Medicine 06/17/23 Josh Ochoa MD [address] [place] [address] PCP - [employer] 02/10/23 Dc Jackson, [facility] [address] [place] [address] Welding Machine As[employer] Behavioral Health 05/26/24 Foot Specialist Relationship Specialty Start Date End Date Josh Ochoa MD [address] [place] [address] PCP - General Family Medicine 06/17/23 Josh Ochoa MD [address] [place] [address] PCP - [employer] 02/10/23 Dc Jackson, [facility] [address] [place] [address] Welding Machine As[employer] Behavioral [facility] 05/26/24 Foot Specialist Relationship Specialty Start Date End Date Josh Ochoa MD [address] [place] [address] PCP - General Family Medicine 09/10/24 Foot Specialist Relationship Specialty Start Date End Date Josh Ochoa MD [address] [place] [address] PCP - General Family Medicine 09/10/24 Foot Specialist Relationship Specialty Start Date End Date Josh Ochoa MD [address] [place] [address] PCP - General Family Medicine 06/17/23 Josh Ochoa MD [address] [place] [address] PCP - [employer] 02/10/23 Dc Jackson [facility] [address] [place] [address] Welding Machine As[employer]er Behavioral Health 05/26/24 Foot Specialist Relationship Specialty Start Date End Date Josh Ochoa MD [address] [place] [address] PCP - General Family Medicine 06/17/23 Josh Ochoa MD [address] [place] [address] PCP - [employer] 02/10/23 Dc Jackson [facility] [address] [place] [address] Welding Machine As[employer]er Behavioral Health 05/26/24 Foot Specialist Relationship Specialty Start Date End Date Josh Ochoa MD [address] [place] [address] PCP - General Family Medicine 06/17/23 Josh Ochoa MD [address] [place] [address] PCP - [employer] 02/10/23 Dc Jackson, [facility] [address] [place] [address] Welding Machine As[employer]er Behavioral Health 05/26/24 Foot Specialist Relationship Specialty Start Date End Date Josh Ochoa MD [address] [place] [address] PCP - General Family Medicine 06/17/23 Josh Ochoa MD [address] [place] [address] PCP - [employer] 02/10/23 Dc Jackson, [facility] [address] [place] [address] Welding Machine As[employer]er Behavioral Health 05/26/24 Foot Specialist Relationship Specialty Start Date End Date Josh Ochoa MD [address] [place] [address] PCP - General Family Medicine 06/17/23 Josh Ochoa MD [address] [place] [address] PCP - [employer] 02/10/23 Dc Jackson, [facility] [address] [place] [address] Welding Machine As[employer]er Behavioral Health 05/26/24 Foot Specialist Relationship Specialty Start Date End Date Josh Ochoa MD [address] [place] [address] PCP - General Family Medicine 06/17/23 Josh Ochoa MD [address] [place] [address] PCP - [employer] 02/10/23 Dc Jackson, [facility] [address] [place] [address] Welding Machine As[employer] Behavioral [facility] 05/26/24 Foot Specialist Relationship Specialty Start Date End Date Josh Ochoa MD [address] [place] [address] PCP - General Family Medicine 06/17/23 Josh Ochoa MD [address] [place] [address] PCP - [employer] 02/10/23 Dc Jackson [facility] [address] [place] [address] Welding Machine As[employer]er Behavioral Health 05/26/24 Foot Specialist Relationship Specialty Start Date End Date Josh Ochoa MD [address] [place] [address] PCP - General Family Medicine 06/17/23 Josh Ochoa MD [address] [place] [address] PCP - [employer] 02/10/23 Dc Jackson, [facility] [address] [place] [address] Welding Machine As[employer] Behavioral [facility] 05/26/24 Foot Specialist Relationship Specialty Start Date End Date Josh Ochoa MD [address] [place] [address] PCP - General Family Medicine 06/17/23 Josh Ochoa MD [address] [place] [address] PCP - [employer] 02/10/23 Dc Jackson, [facility] [address] [place] [address] Welding Machine As[employer] Behavioral Health 05/26/24 Foot Specialist Relationship Specialty Start Date End Date Josh Ochoa MD PCP - General Family Medicine 08/01/16 Deja Martins, MICHELLE Family Medicine 09/17/16 Goals (unrecognized section and [...] BE BASED ON THE PRIMARY CLINICAL RECORDS. [facility] [email or web address] [facility]. provides no warranty or guarantee of the accuracy or completeness of information in this document.
== END 2025-01-26 10:16 | disposition home or self-care (01) ==
LOC: SLEEP 01-27 13:20
PROVIDERS: PCP Internal Medicine Cardiovascular Disease; Visit Provider Internal Medicine Cardiovascular Disease
DX: G47.30 Sleep apnea, unspecified (principal)
CPT/HCPCS: 95806

== ENCOUNTER 2025-02-10 04:33 | Outpatient (RCR) | payer MEDICARE, SELFPAY | END 2025-03-12 23:59 | disposition home or self-care (01) | LOC: MM 04:33 | PROVIDERS: PCP Internal Medicine Cardiovascular Disease; Visit Provider Internal Medicine | DX: Z51.81 Encounter for therapeutic drug level monitoring (principal); Z79.01 Long term (current) use of anticoagulants; I48.91 Unspecified atrial fibrillation | CPT/HCPCS: 85610; G0463 ==

== ENCOUNTER 2025-02-16 21:17 | Outpatient (OUT) | payer MEDICARE, SELFPAY ==
--- OUTSIDE RECORDS SUMMARY | 2025-02-16 21:22 | XMS_ITS | CCD ---
Author Organization [facility] CliniSyct Care Team Providers Care Chemical Handler Name Role Phone CHONG CARRERO Admitting Unavailable NADEREJOSH Suarez Primary Care Unavailable SELF, REFERRED Referring Unavailable GEE ORELLANA Attending Unavailable EBRAHEIM, BENJAMIN Admitting Unavailable EBRAHEIM, BENJAMIN Attending Unavailable LZAARAEREJOSH Suarez Referring Unavailable NADEREErick, JOSH Primary Care [...] Primary Care Provider Eliezer MARTINEZ, Deja Unavailable [phone] MD Josh Ochoa Primary Care Provider [phone] MD Marie Elias Attending Provider Josh Ochoa Primary Care Provider Eliezer MARTINEZ, Deja Unavailable MD Josh Ochoa Primary Care Provider MD Lee Chowdary Attending Provider [phone] JOSH OCHOA Attending Unavailable GABRIELA, DR [...] Provider MD Josh Ochoa Primary Care Provider MD José Imad Attending Provider [phone] Asaad, Imad Attending Unavailable Asaad, Imad Admitting Unavailable Nadereerick, Josh Primary Care Unavailable [facility] Unavailable Josh Ochoa MD [...] Unavailable GRAZIANJack, SARA M Attending Unavailab le AJCKSON, DC L Attending Unavailable GRAZIANI, SARA M [...] Codeine; Translations: [codeine] Drug Allergy 04-24-20 05 [facility] Repository (4 sources) Erythromycin; Translations: [erythromycin] Drug Allergy 04-24-20 05 [facility] Repository (9 sources) Penicillins; Translations: [penicillins] Drug allergy (disorder) 04-24-20 05 [facility] Repository (9 sources) Sulfonamides (Antibiotic); Translations: [SULFA (SULFONAMIDE ANTIBIOTICS)] Drug allergy (disorder) 04-24-20 05 [facility] Repository (20 sources) Ciprofloxacin; Translations: [ciprofloxacin] Drug Allergy 01-18-20 17 Unknown, [facility] (20 sources) Codeine Drug Allergy 04-24-20 05 Hives, Unknown [facility] (20 sources) Desonide; Translations: [Desonide] Drug Allergy 11-25-19 13 Other: See Comments [facility] Work Phone: (20 sources) Erythromycin Drug Allergy 04-24-20 05 Hives, Rash [facility] (20 sources) Latex; Translations: [latex] Propensity to adverse reactions 04-24-20 05 Itching, Anaphylaxis [facility] (20 sources) Penicillin V; Translations: [PENICILLIN V] Drug Allergy 04-24-20 05 [facility] (20 sources) Sulfonamides (Antibiotic) Propensity to adverse reactions 04-24-20 05 Hives, Unknown, Rash [facility] (3 sources) penicillAMINE Drug Allergy 01-01-20 22 shortness of breath [facility] (2 sources) Sulfamethoxazole / Trimethoprim Drug Allergy [facility] Other (2 sources) Sulfonamides (Antibiotic) Propensity to adverse reactions Unknown [facility] [place] Other (5 sources) Adhesive Tape; Translations: [adhesive tape] Allergy to substance 04-24-20 19 Redness of Skin [facility] (20 sources) erythromycin base; Translations: [Erythromycin Base] Allergy to substance 11-25-19 13 [facility] (1 source) Desonide Drug Allergy 11-15-19 [facility] Repository (20 sources) Cod liver oil; Translations: [cod liver oil] Allergy to substance 09-07-19 [facility] (20 sources) Zinc Oxide; Translations: [zinc oxide] Drug Allergy 09-07-19 [facility] (20 sources) Desonide Allergy to substance 11-25-19 Unknown [facility] Work Phone: (20 sources) Penicillins Drug Allergy 03-04-20 18 Rash [facility] Healthcare (20 sources) Wound Dressing Adhesive Drug Allergy 04-24-20 Unknown [facility] Healthcare (2 sources) Sulfamethoxazole; Translations: [sulfamethoxazole] Drug Allergy 01-01-20 [facility] (2 sources) Trimethoprim; Translations: [trimethoprim] Drug Allergy 01-01-20 [facility] (1 source) Codeine Drug Allergy 09-07-[address] [facility] Repository (1 source) Desonide Drug Allergy 01-01-[address] [facility] Repository (1 source) penicillAMINE Drug Allergy 01-01-[address] [facility] Repository (1 source) Penicillins Drug allergy (disorder) 09-07-[address] [facility] Repository (1 source) Sulfonamides (Antibiotic) Drug allergy (disorder) 09-07-[address] [facility] Repository (11 sources) Prochlorperazine; Translations: [PROCHLORPERAZINE] Drug Allergy 04-13-20 Intolerance, GI intolerance [facility] (1 source) sulfa drug; Translations: [sulfa drug] Propensity to adverse reactions to drug (disorder) [facility] Repository (1 source) Adhesive agent; Translations: [ADHESIVE] Propensity to adverse reactions to drug (disorder) 04-24-20 [facility] Repository Medications Current Medications Medication Drug [...] by mo uth once daily as needed xyvzpualwz-RCZW-jfcjdigk 50-300-40 MG CAPS per capsule Take 1 capsule by mouth daily as needed 08/07/2024 Active Start: 07-27-2024 End: 08-26-2024 take 1 capsule by mouth every eight hours for headache czyagqdolj-kuhxbesjhprbc-oqcpmcxs (Fioricet) 50-300-40 MG capsule Indications: Intractable chronic migraine without aura and without status migrainosus (CMS/HCC) Take 1 capsule by mouth every 8 (eight) hours if needed for headaches 84 capsule 07/27/2024 08/26/2024 Active Start: 05-13-2024 take 1 capsule by mo ut every twenty-four hours as needed eocuakayhz-mvvxikryokxxj-cogmbvwy (Fioricet) 50-300-40 MG capsule Take 1 capsule by mouth Daily as needed 05/13/2024 Active Start: 11-20-2023 End: 02-18-2024 take 1 tablet by mouth every six hours Qlyjffokem-Mnitpluiobdhi-Bnfm Active 1 TAB PO Every 6 hours January 08, 2024 12:00am Start: 06-06-2023 End: 07-06-2023 take 1 capsule by mouth every eight hours for headache uhplnvnubd-edzkmzdxmvrxu-dwkbxttf (Fioricet) 50-300-40 MG capsule Indications: Migraine without [...] Active Start: 08-29-2021 [facility] six hours as needed acetaminophen 325 [...] mo uth once daily Cholecalciferol 1.25 MG (41191 UT) TABS Take 2 tablets by mouth [...] hyperglycemia, with long-term current use of insulin ([facility]) Use as directed 2 each 04/19/2023 Active [...] acid 180 mg oral capsule (4 sources) [place]-3 1000 MG CAPS Take 1 capsule by [...] gentamicin (Garamycin) 0.3 % ophthalmic solution Indications: [place] eye disease, unspecified laterality Administer 2 drops [...] take 1 tablet by mouth once daily Lisinopril-Echo chlorothiazide Active 1 TAB PO Daily April [...] 1 TABLET BY MOUTH AT BEDTIME amylase 897933 unt / lipase 66629 unt / protease 131331 unt delayed release oral capsule (20 sources) Start: End: take 1 capsule by mouth three times daily ZENPEP 40,000-126,000- 168,000 unit cpDR Take 1 capsule by mouth three times daily. 0 09/18/2019 07/17/2022 Discontinued End: 05-11-2024 take 1 capsule by mouth in the morning, then take 1 capsule by mouth in the evening, then take 1 capsule by mouth at bedtime pancrelipase, Yvs-Hcuh-Abmy, (Zenpep) 35674-612304 units capsule delayed-release particles capsule Take 1 capsule by mouth in the morning and 1 capsule in the evening and 1 capsule before bedtime. 05/11/2024 Discontinued Comment on above: Take 1 capsule by mo [facility] three times daily. Zenpep 40,000 unit-1 [...] Take 150 mg by mouth twice daily. Atymcg-Orbnlgfp-Qq ylase (Zenpep) 40,000-126,000- 168,000 unit Capsule,Delayed Release(Dr/Ec) (3 sources) Start: 08-27-2022 End: 01-08-2024 take 72413-160059 capsules by mouth three times daily Puszka-Tzjvznhk-Mjcuiq e (Zenpep) 40,000-126,000- 168,000 unit Capsule,Delayed Release(Dr/Ec) Discontinued 1 CAP PO Three times daily August 27, 2022 12:00am January 08, 2024 10:21am with meals Start: 08-27-2022 take 24300-033762 ca psules by mouth three times daily Opsecj-Rabndara-Cihsyqy (Zenpep) 40,000-126,000- 168,000 unit Capsule,Delayed Release(Dr/Ec) Active [...] sources) Long-term current use of insulin; Translations: [penitentiary (current) use of insulin] 06-20-2023 Episodic Other [...] 06-20-2023 12-11-2022 Chronic Other aftercare (3 sources) penitentiary (current) use of insulin; 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] Onset: 04-02-2022 Episodic Other aftercare (3 sources) 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 oral hypoglycemic drugs; Translations: [[facility] USE ORAL HYPOGLYCEMIC DX] Onset: 04-02-2022 Episodic Other aftercare (1 source) Other nursing home (current) drug therapy; Translations: [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 CURRENT DRUG THERAPY] Onset: 04-02-2022 Episodic Other [...] Test Name Value Interpretation Reference Range Facility [facility] 01-18-2025 [facility] Telephone (NHMNS2) JACQUELYN ZENG ([id number]) 1975 F Date Time Provider Department 01/18/25 KINGA MENDES [facility] During your visit today, we recorded the following information about you: Anne-Marie Mensah 01/18/2025 4:46 PM Signed Received completed form in person Uploaded form into patients scanned docs and faxed to [facility] Pre-Access -[phone] Allergies As of Date: 01/18/2025 Noted Allergy [...] Date Reviewed: 12/04/2024 Reviewed by: 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 APRN.TRANSFORMER SHOP SUPERVISOR - Fully Assessed Reason for Visit: Forms [...] 3 ML 25 X 5/8 use with [facility] Facility-Administere d Medications as of 01/18/2025 - onabotulinum toxin type A 200 Units injection (BOTOX) Problem List As Of Date 01/18/2025 Noted Resolved Migraine without aura, without mention of intra*04/24/2005 08/01/2016 CHRON OBST ASTHMA UNSPECIFIED [J44.89] 04/24/2005 Bilateral occipital neuralgia [M54.81] 11/07/2016 Status migrainosus [G43.901] 04/08/2024 Encounter Status:Closed by ANNE-MARIE MENSAH on 01/18/25 [facility] Office Visiton 01-12-2025 Follow-up visit [id number] Jacquelyn Zeng 1975 F Date Provider Department Center 01/12/2025 [id number] DUMONT MARIA LUZ [place] Family History Problem Relation Age of Onset Coronary artery disease Mother Heart attack Mother Cancer Mother Heart attack Father 54 Family Status - Relation Status Age at Mother Father Level of Service:26750 ID OFFICE/OUTPATIENT NEW MODERATE MDM 45 MINUTES [facility] Orders Onlyon 01-12-2025 Orders Only [id number] Jacquelyn Zeng 1975 F Date Provider Department Center 01/12/2025 Terrell-AVIS MOREL CARD Yonatan Hos Family History Problem Relation Age of Onset Coronary artery disease Mother Heart attack Mother Cancer Mother Heart attack Father 54 Family Status - Relation Status Age at Mother Father [facility] 36on 01-08-2025 36 Regarding lab results from 12/31/2024: MD Chelo Thomas MA Her triglycerides are much better and cholesterol is in good range. Same treatment and follow up. Phone call to patient, advised patient of lab results per Dr. Clark request. Patient verbalized understanding and agreed with plan of care. [facility] 36on 01-07-2025 36 Regarding lab results from 12/31/2024: MD Chelo Thomas MA Her triglycerides are much better and cholesterol is in good range. Same treatment and follow up. [facility] Follow-Upon 01-04-2025 Follow-Up [id number] Jacquelyn Zeng 1975 Provider Department Center 01/04/2025 JOSE FRANCISCO PHAM [facility] ENDOCR [facility] Family History Problem Relation Age of Onset Coronary artery disease Mother Heart attack Mother Cancer Mother Heart attack Father 54 Family Status - Relation Status Age at Mother Father Level of Service:08541 ID OFFICE/OUTPATIENT ESTABLISHED LOW MDM 20 MIN [facility] ALL CBC WITH AUTO DIFFon BASOPHILS ABSOLUTE AUTO 0.1 N [facility] Basophils/100 WBC (Bld) 1.1 % 0.2 - 2.0 % [facility] Eosinophils/100 WBC (Bld) 4.6 % 0.9 - 7.0 % [facility] Erythrocyte distribution width (RBC) [Ratio] 18.4 % High 11.0 - 15.0 % [facility] Hematocrit (Bld) [Volume fraction] 41.5 % 36.0 - 48.0 % [facility] Hemoglobin (Bld) [Mass/Vol] 13.4 g/dL 12.0 - 16.0 g/dL [facility] IMMATURE GRANULOCYTES ABS AUTO 0.02 [facility] Immature granulocytes/100 WBC (Bld) 0.2 % 0.0 - 0.5 % [facility] Interpretation and review of laboratory results Abnormal [facility] LYMPHOCYTES ABSOLUTE AUTO 3.7 [facility] Lymphocytes/100 WBC (Bld) 35.2 % 20.5 - 60.0 % [facility] MCH (RBC) [Entitic mass] 27.6 pg 26.7 - 34.0 pg [facility] MCHC (RBC) [Mass/Vol] 32.3 g/dL 29.9 - 35.2 g/dL [facility] MCV (RBC) [Entitic vol] 85.6 fL 81.0 - 99.0 fL [facility] MONOCYTES ABSOLUTE AUTO 1.2 High N [facility] Monocytes/100 WBC (Bld) 11 % 1.7 - 12.0 % [facility] NEUTROPHILS ABSOLUTE AUTO 5.1 [facility] Neutrophils/100 WBC (Bld) 47.9 % 43.0 - 75.0 % [facility] Platelet mean volume (Bld) [Entitic vol] 10.4 fL 9.5 - 13.5 fL [facility] TBH EO # 0.5 [facility]H PLT [facility] RBC 4.85 [facility] WBC 10.6 [facility] Employee Health Noteon 12-31 Employee Health Note [id number] 72#1.00OTGTIFF [facility] Employee Health Noteon 12-24 Employee Health Note [id number] [facility] [id number] 0 [id number] #[facility]on 12-10 Employee Health Note [id number] 57[facility] CNOVon 12-04-2024 [facility] Office Visit (NHDBEC) KARRIJACQUELYN Stafford ([id number]) 1975 F Date Time Provider Department 12/04/24 9:00 AM KINGA MENDES [facility] During your visit today, we recorded the following information about you: Temperature Pulse Respiration Blood pressure 97.5 degrees 98/minute 21/minute 116/71 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 APRN.TRANSFORMER SHOP SUPERVISOR 12/04/2024 9:16 AM Signed [facility] [...] for migraine Informed Consent Consent Obtained: Written [place] Protocol A moment to CARE was completed [...] collected. Written Consent Obtained: Written LOT #: [id number] Expiration Date: Month: 10 Year: 2026 Injection Sites Left (Units) Left (Sites) Right (Units) Right (Sites) TOTAL (Units) Spindle Sander 5 1 5 1 10 Procerus Units: [...] wasted: 0 (more content not included)... Normal [facility] Refillon 12-04-2024 Refill [id number] Jacquelyn Zeng 1975 F Date Provider Department Center 12/04/2024 JOSE FRANCISCO PHAM [facility] ENDOCR [facility] Family History Problem Relation Age of Onset Coronary artery disease Mother Heart attack Mother Cancer Mother Heart attack Father 54 Family Status - Relation Status Age at Mother Father Reason for Visit and Comments: Med Refill [[id number]] Normal [facility] Coding Summaryon 11-11-2024 Coding Summary HTMLBase 64 IzprnfsgWZd0tGo+PGhl YWQ+JE8UDGAvW15poWYy jZ1pH0QLGXiNLrpoEIPI SFcBJoTvxcXeRJ3ivHAq ZXJu IC8+BL5tWYDkPxfvtFKm s3C1lYN1G60cmo3aAUox wIH7CKTtQvAahutwx3um wBu2RIxlPyhzEqKw XNCbsT89MTT8xO46Kn65 sCTewUEly3yrlVq9VpEi MEMdWSH7vBouENzkg5Xv TKKfY14naLVmm4I3 IGNvbGxhcHNlOyBlbXB0 tH9eFAxnhfoyu5ihpqwr Qjh9zr96kLHwd4L1pDV2 L8ZhxaA4LNErvRIi SphxoEZGyM5vntkya5te bavwYiCsTJOtYCs5QCg1 UQUlrUkqJsKdVD07VYE2 QDQtwcNaT6CiMTCb yHgrKzY1u2P0Ec8OU9KG CksrT0AWZGQLFJiqlON+ QG51zc28B9VhNcmsYpr4 BOLnKZJ4qBH8jY3w HMSyKGawg9N0aNT7R4Xw siCtmz5cd3soKXOgIBqs S87ymDZeh6Y5RZVjuJK1 FYGykHbuEyJavU17 Oyc+RDQfdLqmo0SrLgma y0uzy2aojSf1PfctCDQp ikRcdEpcIDP7k8XjIe3m RNYmlZX3kLR3uT1e HvDdNjZ8DAwaX934QeUo aCCiYgstY16wH7HeqSQ+ AIYeIaj7CGRucIjuJQ3b K6IiGIJofbluiBYh tKncMS1kNONxirapUDBz zB5lXLEiW4c9SbLxNiF9 OZtoB4UeTATpgggjWy75 eQ7jPbDjCtU8LXwp E3EepsL6HLEemFUeIZcm CLQ3A47qq5E0GHIqZTUi ACX8sIE2fM8ogLqtxyiv bGVmdDsgdmVydGlj MMwqXSlqT200EQNitWxb PkNvZGluZyBEYXRlOiAg MDcvMDIvMjAyNTwvdGQ+ JHRaPVU3dBfmWJRf zKPfVFydUz3clQzsoIge UO5aZJLalipaGWXtlM9m IZXntSLhoRmtPH6jLZMh hmuuc089QaQeQYS7 YNAtzOVlL0WqvB6xRcAw TLNfEWMiM7NxoCCxGZfx K908YOtsGtO8HLFlfoCo V5UkTNLtqKykOkD0 f5N0Ar4Em8ZduowrJ6Ws sEJnQiRwWpmjYMa1U4Og PjwvdHI+JG36HQYeRJ36 UPb7JEI6aJiuRYcf DNQdJ5QcoV3aXdLsSVUe ZGRkOyc+PHRhYmxlIHdp ZHRoPScxMDAlJyBzdHls RM2eFv4pMWDrKHCh tRkayWAsHyAez3ubYPHq HRgoDO2xsSsfV5PzjNA2 YLWra7k4Pl45Z22bE1Pc dXA+GYHstDO6tRR5 sX4lPcWtIpV7ZGkqP500 TwKyaCTsQzzqr8tnp4tf rSk7XzY1SGYnnqSbzQqz VBV7n0MlGr87V54h IHdpZHRoPSIxNSUiIHZh xQikik2yqN4iNa9+PGNv wCY3cDU6yJ2uLoAyKiJ2 SCqmC242EkDuqFHa Wclmf4rxe5hsxTt0LlFe FUJqkfEuyEsbSOJ5o5Fk Xu88F1EumUrrq9BaUky5 xk28vKYcj4L5bIF4 Y2YfMTVzzffkkSQagHut FI2kVYOexjylGPFiqK0t UGLmM9w5QcJwJcE6NWhk K6LcdcF8BUQxkYCr SRJvwQLAoE7raqpio4ra iuocWhXdGEKkFUp7JFl8 ECIyyNxeFkLlYRE6YwO1 KQJ0fWTuoL1bkUwu xebdpM0fPvm+EJX8aQHd zMRZSX0yWbvlaAZ+PHRk GTT3kZbhBTckQKMzbB0y JDErH2y4FwXrHmS5 ZMasM5TkszB8WQOvkYPv PEXbzDHCpO3lzsqbe2hq gtnwGtUdRXXnIPp9LKk8 LWFsaWduOiBsZWZ0 BeT3XAQ7gVUaaA7mmLqj smngaK0uMjm+QmlydGgg SGF6UQp6N4EbRze0GUOt qYmbQJ9qgIWbNHlz Pq1umIpksCyaSL3xHJAp cdaor797QfIys1xqHEKk hJXzCAiaJNM1Q06wz0J8 WLFqNGVsUHT8uZN1 cG7snQyxxjwsxERzaXxe jiKkyZohVNxiLMrhK095 XMZdeMfsZkSzRFt8G1Sn Qzk7DWDgtWneYF4p fBKuLLztRa4dtYnguDvd SJ1yDLPazsxxv105EkAm t5rqEJAujGTrERkhGGX4 P87el8H4HQBhDTJf ZUC8bFE3fW5auTwixrbj bGVmdDsgdmVydGljYWwt TBzpF788WPFhySuaQlPt yCv9W6ToHgs9VPEq uNowQD1vrHEoOJlhSz6f pQvorEraSN7jFAWxplxk o303NkTzr4mrGJNqwQOi EBsuEPH8Y07fa3N5 WDNkXWErRXN3oPN8aC6w bGlnbjogbGVmdDsgdmVy nUqsZZmtLCpnU253VOVo cDsnPlBhdGllbnQg PPcxJIc2I1XqHpddyOY+ GZ39PIHvUC81yETnkZHr l2zszJi6UuMsYRDiQVR3 lMchOLoon4LiUMQf A55xoKRsl3T6BDUilLrx dKSfZvLqbWI9sA5pUWcn dtqkp5olbttxIrfhu0bd ow40wV10X77uQPju ZHRoPSIzMCUiIHZhbGln ag3hpI6zYu7+PGNvbCB3 nAP7oR8vBHHyUeN6DNio H822AwTswMZnCtdz a1fpl4shmAy4KeB9FRFo meXihXebEHU1y9PbEo63 P84gEPccXDHjOQKeXTDg HVGbuRyzrj4elG6d Ii8+ZZNdqEU3uUY9fC7s RmHpBlS9OYyqB067HqVz rOLgHwxtC60wJ7PxyPC+ HQYaYiy4JOHuuHar HN1ivMIiLQugGj0kIZI5 KiGhVwNyVExlL2JzRCCu xingqqsfpKQ3WHLqWZRn aA96Go1abPvnDNAw mSINfM9nhztfo2bjkqcd FvTkLCQjMBe9SLx9TVQk oPfzAyXzQID7TpK9ZFJ0 lSEhaH3vuXypnkhu vN9hD3WfPPUaprzzYq65 oN8iKfZmWtL8CQtiXuu+ QP9XAY8XPDHQRFnoDBMB IZP5V0EeSkt6NLRr bBwvUI6evGAeOKgvHz2x nIvqjOieDC3tPCOiuebh HMGdyX9sZROusGNhfXab MR4oSQJqaxqnq283 ShXsITW1JIPajFTxG5Ex eV9mSuFxJJVhLHDyB0Ih wDRuUAedR720BDuhRjB2 UPDkipKmD5ZgPNUe lVrbXzE9u2C6Xl7uFC1y FX9nCVs5FX17XS12sAZj l6V5oGF8W2KmKSGgkvdw uunphQN7LEFaZMSr dE45vITuKWjsXh7fh9C6 h590RXYsABInsT37Ps8s gPmiOFCdzNZWwB9qenfu b4pbpeyrWcOhZTYp BQo5LIy3VFCjcBzhCxDr HKI6XuU0GMV7qXLfdE3f jVutnjlteQ8aCvr+NTAg NIYaqwX9L4GzWuk4 JLHetQvpOZ4aoHQoSLzi As2yyBronChbEH1fKHYm cwlfFJVkjC7yBAHvcBUw sVdtYR0cQZUffbmc h795RrCgIVZ6VCNojQKq Y9WmjI3pWbEpZIIvIWRe V7JdjTXtREqpU792LCwh GaX7MSEwqcKoJ6Nb MZOnzHtyJwZ9e5Y7Si8F BQ9GDUY4H1VlMwj2NETq fQphAP6jvUCtGDndJw5c oOdqqAvrRH6zELQf yljeHJZodB1sDDRioNRd mXwjBI5mCQUivyuaf884 XfUgZPG3WYPjlNYvR7Fw gC4tVkCoDVGrUIHn G9BmxJQmQRgtL156DOjj FwW1JBNmfkAjZ7KkGKQf hNoeAvM7x4L7Lq7MZKwu dGQ+QC43mh02C5Fj NfiaIjx2IMEgPPU5gRQ0 dE2vKKQqPZxvi4M7aBO9 F5UpwuIvpr7kz3nxUXDw IBapV05ngZBui7U6 UMNtmIW6NMNlqRjsWpEv gR17Ofy+ZZUlqJayg0Yb Rnsft8pqe2ifzTj7OqTi JSIgdmFsaWduPSJ0 o7FoHl67Y75nXDdkFOVy ZRNbIFOtIVSflQcnuv1p gG4fSw6+IHWydOF2uTO4 eX1aRyTdOgK8GWkj I519QoEtbZYbQjpjl5yw b8kddCi1XoOdMCInpzNu uFuwIYR7j9FqFe20O5We nVtrv0QeVkl7fk73 qTUsu7I6tUS8L9CwAKSv jwwiqPVofNztXD7iYBWx bcrdVRDkvN6hNZYtX5m3 BiXlWfW0KRldI5Sc nsW7WKSelHEqBTLliALQ uL6xwikwn0zzodojPjLe QTEqXSi2DKo7IKAneIui IlPxRAJ8QcS9GZS1 bTPzxR7ruDxxadescK7o Oyc+TZo8m0jfxSKgWS6i eBO7LV91SA38dSRly1H0 bCG9K5DoYZWvqrhc gshbwHL6QNJaIOJeiW56 Cl0ipTxsNn1fQXUqWMN3 DKKqwHRbX9MukO9mDxDw LUNpHOJhX4VpcSLc MBgzR234DRxxGhV2WJXa qoOtO0DcWPYgtQczRqG3 j1M8Ea4ZWF82GE91KY22 tCJib5G2kPZ1D0Gz ZFGxwjxqiizfwGV3OJIf OQFvzM87Cj8loAcnAf0q UBZfWIX8YITlcWEtG5Rd uZ7kToPwULJeTNLs M5XdoEPsNGfhK430AOgf DbE9XVZnwvThZ0HsIMWe sYvhIqQ5a4F9Yz1CEl07 MH46OW56sMTys5Z8 pWD4L8YtZCYstwxlwjfq uDA2SQMgGJBmmG09Qn6k yFehGm5mFSOkQIL6SBPg oCPoH2MzwG0iAqZk NORtVNMyQ7MdsAEyNVyt H284JFwpYhB8DFOyrqPy S9DyJOZnzBpkZqI6u1X7 Fi6HQVjpbam6R6Au PjwvdHI+OR29EWXhAF60 cCCahGNej1osaGx9ErMh QKSoKPE1jMakQSjrk3Ui FSZgZ27ijJAha8W5 IGN (more content not included)... [facility] Employee Health Noteon 11-11 Employee Health Note [id number] #1.00OTGTIFF [facility] Employee Health Noteon 11-05 Employee Health Note [id number] 4 [id number]# 1.00OTGTIFF [facility] FLUORO FOR SURGICAL PROCEDUR ESon 10-08-2024 Radiology exam is complete. No Radiologist dictation. Please follow up with ordering provider. Final result [facility], Radiologist, - 10/08/2024 Radiology exam is complete. No Radiologist dictation. Please follow up with ordering provider. Final result [facility] FLUORO FOR SURGICAL PROCEDURES Radiology exam is complete. No Radiologist dictation. Please follow up with ordering provider. Final result Normal [facility] Radiology Study observation (narrative) [facility] FLUORO FOR SURGICAL PROCEDUR ESOrdered By: Radiologist Radiology on 10-08-2024 [facility]: Guidance-- during surgeryon 10-08-2024 Radiology exam is complete. No Radiologist dictation. Please follow up with ordering provider. [facility] Employee Health Noteon 10-04 Employee Health Note [id number] 7[facility] [id number] 5 [id number] 7#1.[facility] Health Note [id number] 5 [id number] [id number] 5 [id number] #[facility] [id number] 5 [id number] #[facility] [id number] 5 [id number] #1.00[facility] 36on 09-28-2024 36 Her event monitor showed episodes of atrial flutter. Please have her stop aspirin, continue clopidogrel, start Eliquis 5 mg twice daily. Please have her see Farzad Dumont to review options for management. Normal [facility] Telephoneon 09-28-2024 Telephone [id number] Jacquelyn Zeng 1975 F Date Provider Department Center 09/28/2024 Andrea-JULIANA SHANE [facility] Family History Problem Relation Age of Onset Coronary artery disease Mother Heart attack Mother Cancer Mother Heart attack Father 54 Family Status - Relation Status Age at Mother Father Normal [facility] Employee Health Noteon 09-24 Employee Health Note [id number] 15#[facility] 09-22 Employee Health Note [id number] #[facility] Follow-Upon 09-22-2024 Follow-Up [id number] Jacquelyn Zeng 1975 F Date Provider Department Center 09/22/2024 JOSE FRANCISCO PHAM [facility] ENDOCR [facility] Family History Problem Relation Age of Onset Coronary artery disease Mother Heart attack Mother Cancer Mother Heart attack Father 54 Family Status - Relation Status Age at Mother Father Level of Service:75975 ID OFFICE/OUTPATIENT ESTABLISHED LOW MDM 20 MIN Normal [facility] Employee Health Noteon 09-18 Employee Health Note [id number] 0 [id number]# [facility] No Panel InformationOrdered By: Radiologist Radiology on 09-16-2024 [facility]: No Panel Informationon 09-16 Radiology Study observation (narrative) [facility] CERVICAL SPINE (4-5 VIEWS )on 09-16-2024 [...] by: Kirby White MD 09/22/24 Final result [facility] Radiology, Radiologist, MD - 09/22/2024 EXAMINATION: [...] by: Kirby White MD 09/22/24 Final result [facility] XR CERVICAL SPINE (4-5 VIEWS) EXAMINATION: [...] Kirby White MD 09/22/24 Final result Normal [facility] XR LUMBAR SPINE (MIN 4 VIEWS )on [...] by: Kirby White MD 09/22/24 Final result [facility] Radiology, Radiologist, MD - 09/22/2024 EXAMINATION: [...] by: Kirby White MD 09/22/24 Final result [facility] XR LUMBAR SPINE (MIN 4 VIEWS) [...] Kirby White MD 09/22/24 Final result Normal [facility] XR SHOULDER LEFT (MIN 2 VIEW S)on [...] by: Del Melton MD 09/22/24 Final result [facility] Radiology, Radiologist, - 09/22/2024 EXAMINATION: XR [...] by: Del Melton MD 09/22/24 Final result [facility] XR SHOULDER LEFT (MIN 2 VIEWS) [...] Del Melton MD 5/13/25 Final result Normal [facility] Radiology Study observation (narrative) [facility] [employer] XR SHOULDER LEFT (MIN 2 VIEW S)Ordered By: Radiologist Radiology on 09-16-2024 [employer] Work Phone: Employee Health Noteon 09-15 Employee Health Note [id number] 0 [id number] #1.00OTGTIFF [facility] Office Visit (WADBEC) JACQUELYN ZENG ([id number]) 1975 F Date Time Provider Department 09/11/24 11:30 AM KINGA MENDES [facility] During your visit today, we recorded the following information about you: Pulse Blood pressure 100/minute 121/68 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, MANUFACTURING MAINTENANCE TECHNICIAN.TRANSFORMER SHOP SUPERVISOR 09/11/2024 12:02 PM Signed [facility] [...] - 2/7 SCORES MAYNOR-2 Score 1 3 MANYOR-7 Score 11 11/07/2016 06/08/2021 09/07/2021 PHQ-9 Score [...] for migraine Informed Consent Consent Obtained: Written [place] Protocol A moment to CARE was completed [...] collected. Written Consent Obtained: Written LOT #: [id number] Expiration Date: Month: 4 Year: 2026 Injection Sites Left (Units) Left (Sites) Right (Units) Right (Sites) TOTAL (Units) Spindle Sander 5 1 5 1 10 Procerus Units: [...] Butalbital/acetamino phe (more content not included)... Normal [facility] Coding Summaryon 09-01-2024 Coding Summary HTMLBase 64 GmrykjhoDVy7nUf+PGhl YWQ+PA8HDFDmV16pxWRf cR0jS8XODZeJWljrBODB JRrHKlPbpdUkKO0umHOo ZXJu IC8+GT3wAHMaPttesFDi e8X4lWZ3V84agp5jGXhe hBK5GOUwSeYwgtxlv8bs kCh6PPrlVbjoYeBu BQFauA78RAH1iO96Uk22 zRXhsVMfg9bbjGm8KaNf JUYrLJH5hCjiDUjcv3Jk GUZxG69wgUDxd6J5 IGNvbGxhcHNlOyBlbXB0 zM8lIImxzmjxl4jvbweb Bpv8ac64tLAfw3I2zFH2 X0BhsfY7TKEssBLu QazugTWQoP6bxrpqq7ye bdduTePaEPNdDVe1SNg2 LLQxvPxvTnRtIF95FHS7 PAYgfsTeO6LlIOCv hBpnQfH6n2Y4Zk8GO7CS RmziD7EUPHQCRBohrGZ+ PG75gc33A0AtKsziVdv4 FLDjIPP0xWE6sI8s ONMkMPcqh2R8kUI6U2Ha slZbbj1ub5cpKUNnAMbv D63kjWNop9D9QYWxzMK8 CKAxiCgzOcDokS30 Oyc+OGAqdQbnn6WoTnuu j0urm5lfkSb7RofvKXLu tsPvsPlmTVV0b2ZuZp9a ROPmmAT3xGN4jP2f SbSnNvB1TCcnZ837NoCk rQFgRlphA06zV1MylDB+ AIHwIgw9XJUeaMchHF5i A1BjSKMypttywZFk pPdnJU5hJQWuzzniAWMb xL7tKNOyW1d3BdBrWtI6 NWunO5FiCTVwzsmdKg84 rU1iHwBeEtI0HBpo J9SubcL5DAXugDIlAAzf CTL9Y79ko4N3EKLyJBEq PLU5rJI4qK8keHfuiacg bGVmdDsgdmVydGlj ZMroXJpoZ391ISLbcVap PkNvZGluZyBEYXRlOiAg MDQvMjIvMjAyNTwvdGQ+ XSNvHMW8pIztOIYk hSBeTPfeBz2kiYedvJev QE5bBWSyauuhBMBioQ0p HJKbhDYfeZurGR4dYEQa hmgdi815ZaFfCED6 GUEcbWPoU1GqiF9fXkMj OCFmPLQeS8OgsDQhCDpv M786NXjyYsV6VZQfyzBs A1FgYUNdbHmwVfZ0 p9A3Cj7Xq6DmamxjS9Um tRQsOtIpCngtHOq3Y4Nx PjwvdHI+NR77MOLzVT73 DXo4BUE4oXakWPlb ZLUjJ3XplR1pVpQaDJSu ZGRkOyc+PHRhYmxlIHdp ZHRoPScxMDAlJyBzdHls WP0fBn2qPIXzSIQc jWkieENkGfSpo6uxZLZr QZskNC3dzButD7VqhNH4 SGGbl5q0Xf13Y90xD4Tk dXA+RLJnwNN2fVR0 tP0iHrLyWzJ4CFacU059 OjNjrXSyLfnzo9ycp1pw rRl9FoO6DHAghrBfhUeq NZX5y5LnLe32E58s IHdpZHRoPSIxNSUiIHZh cLmftz2poT5nYf3+PGNv hER8bFL2vK6eUoZhQbD7 MXabG657SqDniHCy Ahyjf0pfe0pdnIk3ArXq OVFoyeLviMiaOVX9v1Ok Pg26R4JtaNfth9NcShz8 db12iLMqb7L6dAP2 Z4RcAVFzoezubKJzzVau BB3sXEAxlucoJMUhuF2s ZTLlZ7f0FrMgHyY1QXzu E2RdhaZ1FIBqvKXx OTEssDUJyY6gbozjp8ex sssnXxViAANcFZj2QPh0 PTZcaWxiMdNrKOH8GmC8 RXK8qKUdsO1wzAdg uqyjtU2pCts+DPC5eKZt yXHWCV1mMiaiaSU+PHRk YIN7mHibRBaeHRWefH6f RNHwV4l2ZzCaPiZ3 QDwgE6ArwvE4RBSwmTVz YYHjnKAYxD5aomnrp2ub nqmlVpYfFRWyKBd1JBn8 LWFsaWduOiBsZWZ0 MdK5OHY8wZQqxG7brPnf dssdwG1tYei+QmlydGgg DIW7HNh8P6VtTdo7AWAl rVfjPQ2zwDQcVHhv Os8elMaowYdeAS1tTCKz nribk305PvFko6kjXLGh zSAkULyeKLX5H50tg8W7 SMFcPGKnJVB2gED8 qL6vrImutdhzjFLftOhz mcSkoZieWXgcJMrbU853 YIQnoOtlNrKeOSr9F0Pg Etb7MJYltQlxGT3c pJTnEXuaZm7nxDhusDwj PB3oPAExfbfuc607OgSc b2pcLSXspIWxDIjdQYH6 A93sm1T3GUGoSRAn ZNA4dHS7gL3hxUmqfjnl bGVmdDsgdmVydGljYWwt WXrtF418VOEqzNbiRsPn uOm6J7HfHfg7ATFl oEkyMQ8neUQoOLheGg2w iJzcjJezYU0cYHTygpnv k697ZiXom5vsPKKebYQn GBjbYOG8J44of5E7 BWDbBGUyMNS2bJB0rJ4m bGlnbjogbGVmdDsgdmVy sVlcDGukAOuxM411OTDi cDsnPlBhdGllbnQg AFesSXo0M2WfLuiquMP+ LV89TDFtQN01eXQtwZFj b8uxnHu9SnXpKYMgOYC6 hBtzQNcte7XfYJPf S20gsPZhr3S0NQLazGno fUDwEqIolDP3nW8xSNcj rlvhr8gznrhqPbbgk2ma zk99vR72G28iCFbo ZHRoPSIzMCUiIHZhbGln sa0bkR1qXx2+PGNvbCB3 aNP3lW4sVPPyYoB5RKel T226LdVasPFmOrqm b0ius7llaLt9FpA0HVFg nqMxyQuxLLS3i3LeQy39 E34wLGvyKPRjWGQwFDLs KWYaiDbzjp5wyZ5r Ii8+IDWtyHM3vNT4vK9r IsLiWpE3OApfP648BrTk uJQdOuvwD39fG6LruFD+ HQFeCia0FPHfnCqh HJ9jxXCzIGdjAy7kADI7 OqUpToCtPDrpY3HcMANv skhzblkgcTR8KXTrYWXp tS26Wz5udNblTDMj tPOVyN2kpkgpj7zwyhlg FyBzFCBrKCw7PUy2DDWf wTihJxYnZDZ5FwQ5UXH4 oUOwjB9hjKcrjvve sM1iV5UnPSGfzuhhCa25 zD4sRtHwQsM9KIabClb+ CR0CXO5XXDGQUOabPMUI DRE2Q2MmHwi1DCZl nOiaCI3etQPxBDhvGi3q rApmbXhmON6xOXYnbdbc KBDbqP4iMWUxcEIncWas JY0qGEVkqytqq790 BaRfZRK7PLOjsAZzW7Pb bJ4aLyNsVEYbOAEuM4Xs cJJtCErjL611EOpyMoE9 AXFiilNmO3CfIVUf gNraOzB1r8P4Gx5mTO3w CF6pSRg0CX81GF58nBLz e3G3kRN5X6NjPDVasicu oncinDU6TZGjSQAu hM16fTJtNIiwHe8ba6Q5 n038FEBsYOShoD39Kx8n gRqzZGEjkGLBsX9epknb x7vlbynpEoUhBAJs PSj4DZd7NCYcaJcwMyUr JSO9TbW6ILT2gJZvbH8f tDabyxlkoI2qBck+NTAg IMLuudV5T8XkVww6 MZAmcYgqEK2jbYTnAFje Ot2vuQlhhJgwZC3oTFZj gdxfWFLpmV2zYCKgcSWk lQxiTW6eVDRezfqx t685WzVuTAS5HFIzoBDl S2RfuC7vSeDyQIOqLSJg I0QokCNiVUdgK800LKxw ZgB5CEDcuzTxB9Qo CDXebQboFiO9z5G0Ju2I QR7VVQB2I1KtUke8WQXi dQmhWG4peJUgDGqjHe6j qCnwoAdoEB0vAXTi nllnUTSkjM2aVYVnmHFf dAolNR5gCXEbrylaw592 ZoFnQHB0WQBpyQOhY8Nz zT0lZtBtKKLtNBKk I7LxpEKeHDbbP068IUom HkX8ZOEnbtNoF6PiILNc hIglRcZ3l0Q3Lx6IOSmf dGQ+XO06iq61Y0Om VeddIby3BJUlOOV5hJA0 hA6wBXPcZXqip9T4gFX3 J1TfcxFhmc5aw7msPGTu FNwaK25jdZJrk1S5 JYUxcDB6BPGrvAtaGcBn jQ72Ewn+HVPwtIqkw3Ig Gybab3xio3rcpKl5NvOe JSIgdmFsaWduPSJ0 f2AoLl24G50jZHxrOQKt ECSfNTRqFABvmJqqrl9r tW9nSy5+LARwjJY0wPX8 uP9zKySvYgG3MJke N635CoUaqQNmWorjq8yv h4gmdYr2IzTaITGnumNi cIurBPY2g2BoHi01C0Uw hDwpo0OtCoa3ln81 tWHho8G2xXU7Y3QkNCHv efrfwDRzpGjnCN4pSJAf adxcEHWbsU1cKCQoZ6m5 LmQdNnQ2BDssS1Xh noU2FJShtJPpOEXltIAS jD4hghzum6ikedriIvIj AUYjFPh9AAg1DXLmlYpv AuJqIDF0WpA6DKJ2 nDTaiF0hcVfxgbtynZ8r Oyc+LOu6v9oinTPbLH7o mVA4AA79JB41iBRjy7M8 hGP1J6XdYFKncxej rjqirYB6AVAnKYFzbD35 Ry8nxIatFb3xANHhNIZ0 ITBmqFNdP8ShvI1sGtUn MOClJORuH2RloTUg AHykN993CCiwGwR2KDPz eeIiX7KaPJFsoZtsSpT6 g1T6Tf0KDP36TX44UP46 nELqt2L4qYI1K2Xl EIWnctczrvpqoDN1YOAl LOTrhR99Cw3ffKabZu2n GQJiCDE6RAZewINzW5Yr dE3qNbSlHGTeVMVh K6MbjEAsXJdoD885GRqf AbO2ZPBztgWhU9GxOOFx vHptUfG8j1W3Mc0TYu49 HJ43VN63pQMev9B5 nWQ8X1DaFFWkejifuqyy jSJ2DTMpSKVbmV70Fg3r gHlbRh0sSXRjTIK6CPZt tEGhH6BnrZ9iPiOe CNMvFPMxZ7XrtGDqAHml G008TAjhFmF4EMEhiaUp K0MxURJfoAnjMhS9t1X1 Wi8HGXuwdew2C3Ni PjwvdHI+WS07EYWtIY66 oJWxxYHoj8wgrFj4DlRd NSJmCVP7iDgsFXpij9Eb ZEVlC52swDKrl8T5 IGN (more content not included)... [facility] Employee Health Noteon 09-01 Employee Health Note [id number].. 0 [id number] 64#1.00OTGTIFF [facility] Employee Health Note 104... 0 [id number] 00#1.00OTGTIFF [facility] Employee Health Note 104... 0 [id number] 39#1.00OTGTIFF [facility] Employee Health Note 104... 0 [id number] [facility]-27 Employee Health Note [id number] 0 [id number] [facility] [id number] 0 [id number] #[facility] [id number] [facility] 08-12-2024 Follow-up visit [id number] Jacquelyn Zeng Nydia 1975 F Date Provider Department Center 08/12/2024 JULIANA CAAL MARIA LUZ [place] Family History Problem Relation Age of Onset Coronary artery disease Mother Heart attack Mother Cancer Mother Heart attack Father 54 Family Status - Relation Status Age at Mother Father Level of Service:77604 ID OFFICE/OUTPATIENT ESTABLISHED MOD MDM 30 MIN Normal [facility] IGP,APTIMA HPV,AGE GDLNon AGE GDLN ACOG TESTING Note . [facility] Comment on above: TESTS RESULT FLAG UN ITS REF RANGE LAB Clinician Provided Cytology Information Source.............Cervix;Endocervix No. of containers..01 ThinPrep Vial Age Algo ACOG Kayla... FLAG LEGEND: L-Low Normal,H-High Normal,LL-Alert Low,HH-Alert High <-Panic Low,>-Panic High,A-Abnormal,AA-Critical Abnormal Performed at: 01 =[address] [address] Elsy Johnson MD, HPV APTIMA Negative Negative [facility] Comment on above: This nucleic acid am plification test detects fourteen high- risk HPV types (16,18,31,33,35,39,45,51,52,56,58,59,66,68) without differentiation. Performed at: =[address] [id number] Bicycle Assembler: Elsy Johnson MD, Phone: [phone] Performed at: [address] [id number] Bicycle Assembler: Elsy Johnson MD, Phone: [phone] IGP, APTIMA HPV, RFX 16/18,45 Note . [facility] Comment on above: TESTS RESULT FLAG U NITS REF RANGE LAB DIAGNOSIS: 02 NEGATIVE FOR INTRAEPITHELIAL LESION OR MALIGNANCY. CELLULAR CHANGES ASSOCIATED WITH ATROPHY ARE PRESENT. Specimen adequacy: 02 Satisfactory for evaluation. Endocervical component may not be distinguished in cases of atrophy. Performed by: 02 Chepe Perez, Hat Checker (ASCP) . 02 Note: Note 02 The Pap smear is a screening test designed to aid in the detection of premalignant and malignant conditions of the uterine cervix. It is not a diagnostic procedure and should not be used as the sole means of detecting cervical cancer. Both false-positive and false-negative reports do occur. Test Methodology: Note 02 The [facility] Prep(R) Dispatcher Service Or Work was unable to read this specimen. Therefore a manual review was performed. FLAG LEGEND: L-Low Normal,H-High Normal,LL-Alert Low,HH-Alert High <-Panic Low,>-Panic High,A-Abnormal,AA-Critical Abnormal Performed at: 02 [facility] [address] [facility] [place] [address] Elsy Johnson MD, HPV Genotype Reflex Note 02 Criteria not met, HPV Genotype not performed. Criteria not met, HPV Genotype not performed. BRUSH-SPATULA CERVIX ENDOCERVIX [facility] JACQUELYN ZENG ([id number]) 1975 F Date Time Provider Department 06/29/24 KINGA MENDES [facility] During your visit today, we recorded the following information about you: Will Medina RN 06/29/2024 8:20 AM Signed Botox referral sent to pharmacy Boris CHILDRESS, RN RN Clinical Manager [facility] [place] 07/22/2024 3:16 PM Signed [facility] C9 for Botox signed and faxed to [facility] Form scanned to chart Allergies As [...] 3 ML 25 X 5/8 use with [facility] Facility-Administere d Medications as of 07/22/2024 - onabotulinum toxin type A 200 Units injection (BOTOX) Problem List As Of Date 06/29/2024 Noted Resolved Migraine without aura, without mention of intra*04/24/2005 08/01/2016 CHRON OBST ASTHMA UNSPECIFIED [J44.89] 04/24/2005 Bilateral occipital neuralgia [M54.81] 11/07/2016 Status migrainosus [G43.901] 04/08/2024 Encounter Status:Closed by WILL MEDINA on 06/29/24 Normal [facility] Documentationon 06-25-2024 Documentation [id number] Jacquelyn Zeng 1975 F Date Provider Department Center 06/25/2024 JOSE FRANCISCO PHAM [facility] ENDOCR [facility] Family History Problem Relation Age of Onset Coronary artery disease Mother Heart attack Mother Cancer Mother Heart attack Father 54 Family Status - Relation Status Age at Mother Father Reason for Visit and Comments: Diabetes Mellitus [183] - CGM [facility] Follow-Upon 06-23-2024 Follow-Up [id number] Jacquelyn Zeng 1975 F Date Provider Department Center 06/23/2024 JOSE FRANCISCO PHAM [facility] ENDOCR [facility] Family History Problem Relation Age of Onset Coronary artery disease Mother Heart attack Mother Cancer Mother Heart attack Father 54 Family Status - Relation Status Age at Mother Father Level of Service:91733 ID OFFICE/OUTPATIENT ESTABLISHED MOD MDM 30 MIN Reason for Visit and Comments: Diabetes Mellitus [183] - DM follow up [facility] CNOVon 04-14-2024 CNOV Office Visit (NHMNS2) JACQUELYN ZENG ([id number]) 1975 F Date Time Provider Department 04/14/24 1:00 PM MARILYNN LUA WAMNS2 During your visit today, we recorded the [...] Status migraino (more content not included)... Normal [facility] CNOV Office Visit (NIQ) JACQUELYN ZENG ([id number]) 1975 F Date Time Provider Department 04/14/24 [...] 3 ML 25 X 5/8 use with [facility] Facility-Administere d Medications as of 04/15/2024 - onabotulinum toxin type A 200 Units injection (BOTOX) Problem List As Of Date 04/14/2024 Noted Resolved Migraine without aura, without mention of intra*04/24/2005 08/01/2016 CHRON OBST ASTHMA UNSPECIFIED [J44.89] 04/24/2005 Bilateral occipital neuralgia [M54.81] 11/07/2016 Status migrainosus [G43.901] 04/08/2024 Letter Text Encounter Status:Closed by MARILYNN LUA on 04/15/24 [facility] 04-08-2024 CNOV Office Visit (WADBEC) JACQUELYN ZENG ([id number]) 1975 F Date Time Provider Department 04/08/24 8:30 AM KINGA MENDES [facility] During your visit today, we recorded the [...] for migraine Informed Consent Consent Obtained: Written [place] Protocol A moment to CARE was completed [...] applicable Written Consent Obtained: Written LOT #: [id number] Expiration Date: Month: 2 Year: 2026 Injection Sites Left (Units) Left (Sites) Right (Units) Right (Sites) TOTAL (Unit (more content not included)... Normal [facility] Refillon 04-07-2024 Refill [id number] Jacquelyn Zeng 1975 F Date Provider Department Center 04/07/2024 JOSE FRANCISCO PHAM [facility] ENDOCR [facility] Family History Problem Relation Age of Onset Coronary artery disease Mother Heart attack Mother Cancer Mother Heart attack Father 54 Family Status - Relation Status Age at Mother Father Reason for Visit and Comments: Med Change Request [411] [facility] Follow-Upon 04-06-2024 Follow-Up [id number] Jacquelyn Zeng 1975 F Date Provider Department Center 04/06/2024 492-JOSE FRANCISCO MARR [facility] ENDOCR [facility] Family History Problem Relation Age of Onset Coronary artery disease Mother Heart attack Mother Cancer Mother Heart attack Father 54 Family Status - Relation Status Age at Mother Father Level of Service:52502 ID OFFICE/OUTPATIENT ESTABLISHED LOW MDM 20 MIN Reason for Visit and Comments: Diabetes Mellitus [183] - DM follow up [facility] 03-30-2024 CNPN Telephone (NIQ) JACQUELYN ZENG ([id number]) 1975 F Date Time Provider Department 03/30/24 [...] been this way for years. 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 APRN.TRANSFORMER SHOP SUPERVISOR 04/06/2024 1:41 PM Signed I do not have anything else available. She is scheduled with the very capable colleague of [employer] on 04/15. 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 APRN.MICHELLE April 06, 2024 1:41 PM Opal Camejo 04/06/2024 2:32 PM Signed Called patient and left for appointment on 04/08/24 at 8:30AM with Kinga at [place]. Slot is currently on hold for patient [...] Date Reviewed: 05/17/2023 Reviewed by: 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 APRN.TRANSFORMER SHOP SUPERVISOR - Fully Assessed Reason for Visit: [...] soln INJECT 1mL TWICE DAILY NEEDED - rjyeuq-soxreecb-cuug ase (ZENPEP) 40,000-126,000- 168,000 unit delayed release [...] 3 ML 25 X 5/8 use with [facility] Facility-Administere d Medications as of 04/08/2024 - onabotulinum toxin type A 200 Units injection (BOTOX) Problem (more content not included)... Normal [facility] Follow-Upon 02-12-2024 Follow-Up [id number] Jacquelyn Zeng 1975 F Date Provider Department Center 02/12/2024 JOSE FRANCISCO PHAM [facility] ENDOCR [facility] Family History Problem Relation Age of Onset Coronary artery disease Mother Heart attack Mother Cancer Mother Heart attack Father 54 Family Status - Relation Status Age at Mother Father Level of Service:92523 ID OFFICE/OUTPATIENT ESTABLISHED MOD MDM 30 MIN Reason for Visit and Comments: Diabetes Mellitus [183] [facility] Refillon 02-12-2024 Refill [id number] Jacquelyn Zeng 1975 F Date Provider Department [place] 02/12/2024 JOSE FRANCISCO PHAM [facility] ENDOCR [facility] Family History Problem Relation Age of Onset Coronary artery disease Mother Heart attack Mother Cancer Mother Heart attack Father 54 Family Status - Relation Status Age at Mother Father Reason for Visit and Comments: Med Change Request [411] [facility] ALL LIPID PROFILE (FASTING)o n 02-07-2024 CHOL HDL RATIO 6.6 [facility] Comment on above: 3.3 - 4.4 LOW RISK 4.4 - 7.1 AVERAGE RISK 7.1 - 11.0 MODERATE RISK >11.0 HIGH RISK Cholesterol [Mass/Vol] 184 mg/dL NINF - 200 mg/dL [facility] Cholesterol in HDL [Mass/Vol] 28 mg/dL Low 40 - 60 mg/dL [facility] Comment on above: > or =60 mg/dl - LOW CARDIOVASCULAR RISK <40 mg/dl - HIGH CARDIOVASCULAR RISK Interpretation and review of laboratory results [facility]normal [facility] Magnesium [Mass/Vol] 207.2 mg/dL [facility] Triglyceride [Mass/Vol] 1036 mg/dL High NINF - 150 mg/dL [facility] No Panel Informationon 02-06 [facility] Office Visiton 02-07-2024 Follow-up visit [id number] Jacquelyn Zeng 1975 F Date Provider Department Center 02/07/2024 AndreaJULIANA SHANE [facility] Family History Problem Relation Age of Onset Coronary artery disease Mother Heart attack Mother Cancer Mother Heart attack Father 54 Family Status - Relation Status Age at Mother Father Level of Service:[id number] ID OFFICE/OUTPATIENT ESTABLISHED MOD MDM 30 MIN Normal [facility] DIRECT LDLon 02-07-2024 Magnesium [Mass/Vol] 47 mg/dL [facility] Comment on above: <100 mg/dl OPTIMAL 100-129 mg/dl NEAR OR ABOVE OPTIMAL 130-159 mg/dl BORDERLINE HIGH 160-189 mg/dl HIGH >190 mg/dl VERY HIGH Coding Summaryon 01-21-2024 Coding Summary [employer]Base 64 IvjjzamrMIl9yZw+PGhl YWQ+KB1EAOXeQ13qkGGv jN8lF0BVYQtOTezeWQDW KOaVQmYnhxQnLZ5cnXDz ZXJu IC8+WE2mQXGpYsyseDNd l5F1xMW5U58ugn4fGSlv pAQ0XUQiHeTzbuvdn6js cIa1DUveNiudPgOm ZQAatR66HNB6yA04Xu86 iDQrrGLkt0tkfKo0FjBc BXWnAAU8gHtbHEuuz0St VPAfG64xyKUgv3E3 IGNvbGxhcHNlOyBlbXB0 gE0lZPaanvdok7swgohv Nlg3zg70zWTgo6U8gRG4 K8PqowS3DHCywPSe DflqkNDSmB0xdpayz9dw knbjKcOgBADyKMo4DHz7 MQZtzRdxMzExEK67DRO2 WJZlkwFwX0ElPUCa nAfwFtJ7v1Z9Mj9WU0DZ QbakC8WWTODZXNmfiDZ+ VC62xk72G0LeQykqKma1 GQAjJPB9aYZ5hH5z EDIzXDtpz4X9aGL4P8Uz ciRisr6ph1kyAOXfRIal B18jqNCbf7R7XOMpeTN8 OROmrFssDlLkpJ64 Oyc+XAAydRwvu6CfBnzp i7txf8wyjRr4FujrGOCs nqZdgCktISI9d7RiKh3r IFPlgGN3bHO0gQ7z ScXdFhM2JOoaO659SgWu iSUoQzndN94tJ1VbjOQ+ DCTaOih2ZYJrzAtdMA1v V1UmHSXjanrafMEw dNmmRD4tVIQvnjzeQGRb vM3ySXEqU1f8MiSaCzW7 PLskE6LeOGNdkswdUm25 oU1rZxPaGvE8ZNkl I3KtsxR4TCXshQWnBClp BIG2X27gz8F9XIOtJCUy CCH8jAD7mC7esMkbomcx bGVmdDsgdmVydGlj YXxyPNdtB314FKUueMug PkNvZGluZyBEYXRlOiAg MDkvMTAvMjAyNDwvdGQ+ NZItFIV6nMkvQLJj yJDpLAupFi5yvJsvjWcy AY1iSWRqhuxwRDIqdE1c XMPphMFkxXatYO1lIKBz auyay963YsBtHQX1 RAJxrJQyI3MbfI8bSwZk MOLlEKUpE7AnnUOoWPql M051HZayJiF9BMQlmjFz O7DgJDMscSpjStX4 b1Q9Om4Ak1HiupukP2Ue lZXoFbNnJdqyDKo9Q1Pz PjwvdHI+XD10DGTwRP28 YQk6YHC8mZpkZZkr KNAhC2GrdO9mAkXwABBm ZGRkOyc+PHRhYmxlIHdp ZHRoPScxMDAlJyBzdHls IS0kWx3jTVHdNVPi vMvavHJwArEao2jmFWCj SMhuJD6zpIryY1MbvXS6 MDScu5j6Nc48H07cG8Tw dXA+IAGekHZ9kBU5 lT1bYkVyKqW2FTyjJ325 YbGfiJBjCrutx3nxx5yo tXf6CnO0SLVtlcYskBfn GNP1c1UuRn30N18z IHdpZHRoPSIxNSUiIHZh uMztjp6ndH5aGo9+PGNv pVH2qQY7fY3uIvSqBwN5 CZhkO634DhHopOSz Gouxy2kzz7ndiTv8YjFr TMXxyfQsfWdbAXQ5l0Qa Iy41H8NryUhdw4FiPdk5 ol17mTNgz7G6tXL9 P3TcHXIlflgfvHRsxLdx BO8iILYpleisCHUveV1c FERgV3u4LuOcFtI9YUtg X9OmgzZ1IROsiLNf FZMvmVLHwY1wyukce1th srmiIpVqONKmAIc9CYy4 PIFwcDhhChVjJTV9KjL0 DHT0lZMfzR9dnIcv acidiX5dCri+CNL3rJYf qQHAAA1gWjkmpFI+PHRk OAO6nFeyXSseVGTylK6l JQRkU9w9MnNlEnF4 KHlzI4KnpoA6QEAfpSCo YNDnuQZNiY8wdadnq1hl pnlbKgSlGEJtCMd6PQj7 LWFsaWduOiBsZWZ0 WjK5NMD5tFRkiP0xkPai topdyY5uJcu+QmlydGgg WGK6UPx9G3GzQzr0ATRn jMryQY2mmIRcHHki Sg8ljBoziXzsYH4aSLMo zqnay508PsPqk7gzDOKn nMTfGEwxNYJ6U66fc6S6 BMWiPFEiGCM7tTJ1 jT7sqPssqmebiKWotTkn maIyyKecUOpkWCulI788 AMTdoDooUuTySKg7K8Xc Enm7WCLbzTjwVG0u hUMpGNonNc9sbCplgLoj UR4jGNWjyktib369ZgUp j9tzDOKfbEXtDItgROO1 S52kj9V3YYObZDAh CNE8cLZ5mR8oqZvuvcoh bGVmdDsgdmVydGljYWwt NMyvP869QGAvyMgqWaGj aSz0Q8QaNzn8QXHo vLynSK4eaRGfXZwzKh5v pMsayYwjNZ8mHANqczbi x799YzJri8muORNhrWQk DNbnBUC5D43wr4N5 HEZoLQUqOJM1iJE9fX2a bGlnbjogbGVmdDsgdmVy cSxpOIhqLZrsA624WXMy cDsnPlBhdGllbnQg DOdzKLu3V9GeGvuhqKU+ OS75MJDnKC41xGJtfHWk x7vtgYx0PbAdQTQuZZR0 iLyoRDwrw4VkXSFl F51aeNZbv0K1WRDezCop wKJlKoZmmER9cW6rUGft biota9zldvxsCkfjr8zz sg67mC34A82uUUpg ZHRoPSIzMCUiIHZhbGln xw5erV9xOt1+PGNvbCB3 iPW2yX2yYGIfJaS5CIwy P174NzZkpXVqPlsm s7fbe0ivpYp6ClK8GGEf thSuqFecIWN7y0ErVy46 N81aJJmtNVVbFKSyVCYg NJWwfVfjai4teQ1u Ii8+TQWwzFS9sWF4rH6u GyXxZuU8TScaE793MiOy vKZqShzyW90iJ4RvvOK+ HGQkPlg5MFSywSbc QR0jtBLtOUitSd5jTKL2 EwOsPzXhNSnjX9JwOUMb xxbypkzryOZ1YVBnOTFm yY99Pk3baVwoFQXv qKZWwV9szsjgs4uqkvax BeNgOPBcYRs1UFc8MYVd mImxYaFjWUV8GaJ5PTG5 jZLmqV3soKigqraw zM0qF3HgCCHawnpcOj01 uU3vUsGaTiE8PFefLhk+ JX6IFG4EITSYJNgaCWto dGQ+HOUwSFI7wUuv ZDitEVGvwD5kUEBgB2n4 MbSnFaF7LBxdM8YxZJTh anoxFb87nK6eSrRuWwV7 CSqpU7RsbhJ4BTBu dXYfFApiJQU5Y59yo0H4 WKAkLSAwQMU6pOE3mT8i bGlnbjogbGVmdDsgdmVy lOunRJuoNRhbQ696 ADFqhXelZwY4AsWwZlN1 HpJ9R6UpJks5BOWweIaa KA4kxFVnCKabHf1xdRgm dNruRO5xHMXrbaap JOCgrG7pRECydRLagBou GL4gFJRsjwpxg274QcTf GQU4RLFuoXWwL4HmkH9r VjDdZLQcVVBaX5Eq wRCxGNntQ136JVdwMqG9 MMSgivOrN1DxNLGjbPeh MpB6s9V3Yg09ULBNTDFy czwvdGQ+PHRkIHN0 aRjzFXmcGUSyoE9yPIQg E3k7IpNbGhD3KLifQ4Rh IZKaqgjjOl01oO1zXnGh DjC9NJbvD3BfecL5 TIXlfTDuWAvlKFH9D70d p6Q0HICcLVSvIOP4nFP3 hY2szVcwnssapZHodOih dmVydGljYWwtYWxp A576XWKtzOobCaQHUINE RTwvdGQ+SYPlMCS1rWay MEegUHXrgR7vOTSaR8f9 RmLiWwB0AOgtC8Gj LXZakjczCj19fS7tVyDa RbX8USdeQ3YxaxS7VIPv fEBkWShbZJA9N22wb7V3 LHOfZFTaHIA2qEF4 vF6ieFsspjqzqVNjdSss htTajYdcTKowHFloY527 MFDmdAreBw1URH39GO74 K2YcPnbzyVJdhGM+ PHRhYmxlIHdpZHRoPScx WQNvDsIbtAuuJN4mBx8i ZGVyLWNvbGxhcHNlOiBj r7vfDCFyZOhwOP3q zXdtT6KclYM4SBYth5e2 Sb36R70eK9NviWR+PGNv vOI4iCK4xZ1sYtXoVyP1 BBbpV617FzCkoGFb Zlqvo0evx8dgwRi0KtEl CTNlrkEqpTueTGL8j7Lz Sp01B17iTYjdXFWwLEZx YLVnQUTpjYwewi3p fP2kGw3+LRSkvYC8qQO5 uW3nNlEkLtX9MRvcO300 ZtLxyGHjQbumU12yR6Fe dXA+WROdGbu6HRQf bLglRN6ssCBsJLbtAd8d BDS8PzLvWgEdLClaI1Mw FNKczqpvncslqWW7TOAc JWZorY64Ao6zbYzk Nk0kMQYmHHJ0BQYabTXm U2QmqK6aVjPvLKLfTSOx D1PliYFlDTutV735DEgo XsB8WJOybeTaL9Pa DKHkoNpeLoW9v1D9Mh3H wNjqlWDiAH3yQhImHTl4 X5UvQxj8JOAzwHgpKD0z oDGxBQjxGe6epZgr dNspEL2jUONgifndd787 UkLlj9cgPLAdsUOwKOou HNU1V14wk1M0PMLnLQBz SEU3jJF3hT8nyKaq bjogbGVmdDsgdmVydGlj IQzmEUuqC009JCLooKrs UpMPCje5J5TbCyj2ZVUy hCotAI4azQJbVIez Tt7wmTqpsNwcDX3pIJYm wljmq352BpZul2ucMVTd fYUwQJajVFZ4J35ub2U2 GELkHPTcYAP1aGP5 qJ5vfBajraxdnTXepMbi ytKbyYhfITclMOazI319 RIQoaWyrUg9MTsa5K3Xk Jsu2QGOwvOzbQM1c dOJxKFtfJv4zhMlhqWde NU1hDIGmwbarj359WiJh t9ciLEKflOIsVDcjGBI8 H90sk2P7YJTsRADx DZH3qDQ3qG6fqWkfcvad bGVmdDsgdmVydGljYWwt MZofZ155CZLhdVxjFfRw eWVyOjwvdGQ+PC90 fz12U8GqJebzWqe9LXXo JGX7jLS4uW2eXFNuCKxj [id number] (more content not included)... Normal [facility] ED Clinical Summaryon 2023 ED Clinical Summary [facility] ? Urgent Care [address] [place], [place] [id number] Clinical Summary PERSON INFORMATION Name: JACQUELYN ZENG Age: 48 Years Sex: FEMALE : 1975 MRN: Acct#: Visit Reason: Medical screening exam; [facility] F/U - BACK/HEAD INJURY Arrival: 01/15/2024 13:58:40 Discharge: 01/15/2024 14:29:00 LOS: 000 00:31 Check In: 01/15/2024 13:58:40 Checkout: 01/15/2024 14:29:00 Address: [address] [place] [id number] PCP: JOSH OCHOA PROVIDER INFORMATION Provider Role [...] verbalizes understanding of instructions given Comment: Normal [facility] ED Patient Summaryon 024 ED Patient Summary [facility] Care [address] [place] [address] PATIENT DISCHARGE INSTRUCTIONS Patient Information Name: JACQUELYN ZENG Age: 48 Years Date of : 1975 Reason For Visit: Medical screening exam; [facility] F/U - BACK/HEAD INJURY Arrival Time: 01/15/2024 13:58:40 Primary Care Physician: JOSH OCHOA Attending Physician: PHILIP MATHEWS Comment: Patient Education With: Address: When: Return to this practice Comments: 6 months Medication Information: The exam and treatment you received today in the [facility] Emergency Department were for an urgent problem and are not intended as complete care. It is important for you to follow up with a doctor, nurse practitioner, or physician?s obstetric assistant for ongoing care. If your symptoms [...] so we can reach you if necessary. [facility] has provided you with a complete list of medications post discharge. Please inform your salesperson terrazzo tiles/provider of your visit and for further instruction [...] THE MORNING DO not crush or chew. [facility] Prescription (DME: Upright walker) Diagnosis F07.81 Length of need: 6+ months Dispense 1 No refills. (more content not included)... Normal [facility] Note- Provideron 01-15-2024 Urgent Care [...] FOLLOW-UP Date of injury: 01/24/16 Claim #: [id number] Employer: [employer] Mechanism of Injury: She tripped and fell [...] Jacquelyn transferred care to us from the [facility] in September 2018. In 2015 she [...] shoulder was finally allowed and performed at [facility]. She was allowed an injection into [...] occasional Oxycodone all that helpful. [facility] pain management recommended their intensive pain management program but it was denied by [facility]. She denies any saddle anesthesia. No [...] She sees pain management Dr. Stack at [facility] who performs greater an lesser occipital blocks [...] down b (more content not included)... Normal [facility] Recordon 024 Urgent Care Record [facility] ? 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 It is important for you to follow up with a doctor, nurse practitioner, or physician?s obstetric assistant for ongoing care. If your symptoms [...] so we can reach you if necessary. [facility] has provided you with a complete list of medications post discharge. Please inform your salesperson terrazzo tiles/provider of your visit and for further instruction [...] 30 Milligr (more content not included)... Normal [facility]gent [facility] Note- Provideron 01-06-2024 Urgent Care Note- Provider Patient: JACQUELYN ZENG Age: 48 years Sex: FEMALE : 1975 Associated Diagnoses: None Author: PHILIP MATHEWS OCCUPATIONAL HEALTH FOLLOW-UP Date of injury: 01/24/16 Claim #: [id number] Employer: [employer] Mechanism of Injury: She tripped and fell [...] [Verified on: 01/06/2024 15:01 EDT] PHILIP MATHEWS [facility] ALL CBC WITH AUTO DIFFon [...] mass] 29.5 pg 26.7 - 34.0 pg [facility] MCHC (RBC) [Mass/Vol] 31.6 g/dL 29.9 - 35.2 g/dL [facility] MCV (RBC) [Entitic vol] 93.5 fL 81.0 - 99.0 fL [facility] MONOCYTES ABSOLUTE AUTO 0.9 High N [facility] Monocytes/100 WBC (Bld) 11.1 % 1.7 - 12.0 % [facility] NEUTROPHILS ABSOLUTE AUTO 2.9 [facility] Neutrophils/100 WBC (Bld) 36.8 % Low 43.0 - 75.0 % [facility] Platelet mean volume (Bld) [Entitic vol] 10.6 fL 9.5 - 13.5 fL [facility] TBH EO # 0.2 [facility] TB PLT [address] [facility] RBC 4.74 [facility] WBC 8.0 [facility] MLR HEMOGLOBIN A1Con 024 Glucose [Mass/Vol] 160 mg/dL [facility] HbA1c (Bld) [Mass fraction] 7.2 % High 4.5 - 6.2 % [facility] Comment on above: ADA RECOMMENDED LIMI T 4.0 - 6.0 ADA THERAPEUTIC TARGET < 7.0 ACTION SUGGESTED > 7.0 No Panel Informationon 06-22 Interpretation and review of laboratory results Abnormal [facility] MICROALBUMIN, RAND URon 06-22-2023 MICROALBUMIN URINE RANDOM <1.3 NINF - 30.0 mg/dL [facility] Glucose Glucometer (dC) [M ass/Vol]Ordered By: Lee Chowdary on 09-06-2022 Glucose [Mass/Vol] 138 mg/dL [facility] Comment on above: Random Glucose Refer ence Range is dependent on time and content of last meal. Glucose of more than 200 mg/dL in a nonstressed, ambulatory subject supports the diagnosis of Diabetes Mellitus. HCG ( test) IA.rapi d Ql (U)Ordered By: Avinash Mays on 09-06-2022 HCG ( test) Ql (U) Negative [facility] MG MAMM DIAGNOSTIC 3D YOUNG CA Don 08-28-2022 MG MAMM DIAGNOSTIC 3D YOUNG CAD Patient: JACQUELYN ZENG Exam Date: 08/28/2022 : 1975 Gender:F Ordering : MARGARETTE HUITRON . Admission #: [id number] Family : Order #: [id number] CLICK HERE TO VIEW EXAM RADIOLOGY REPORT PROCEDURE: MAMMOGRAM DIAGNOSTIC 3D BILATERAL CAD, 08/28/2022, 13:43 ULTRASOUND BREAST RIGHT LIMITED, 08/28/2022, 14:30 COMPARISON: MG MAMM SCREEN YOUNG W CAD, 07/19/2020. INDICATIONS: Family history of malignant neoplasm of breast Calculator Name [facility] Breast Cancer Risk Assessment Tool 5 Year [...] colon cancer at age 53. LOCATION: [facility] BREAST COMPOSITION: Scattered areas fibroglandular density. [...] M.D. on 08/28/2022 at 14:55 Normal [facility] US BREAST RIGHT LIMITEDon US BREAST RIGHT LIMITED Patient: JACQUELYN ZENG. Exam Date: 08/28/2022 : 1975 Gender:F Ordering : MARGARETTE HUITRON . Admission #: [id number] Family : Order #: [id number] CLICK HERE TO VIEW EXAM RADIOLOGY REPORT [...] colon cancer at age 53. LOCATION: [facility] BREAST COMPOSITION: Scattered areas fibroglandular density. [...] M.D. on 08/28/2022 at 14:55 Normal [facility] Basophils Auto (Bld) [#/Vol] Ordered By: Lee hCowdary on 08-27-2022 Basophils (Bld) [#/Vol] 0.2 10*3/uL 0.0-0.[address] [facility] Basophils/100 WBC Auto (Bld) Ordered By: Lee Chowdary on 08-27-2022 Basophils/100 WBC (Bld) 1.4 % . F [facility] Calcium [Mass/volume] in Ser um or PlasmaOrdered By: Lee Chowdary on 08-27-2022 Calcium [Mass/Vol] 9.8 mg/dL 8.6-10.3 [facility] Carbon dioxide, total [Moles /volume] in Serum or PlasmaOrdered By: Lee Chowdary on 08-27-2022 CO2 [Moles/Vol] 28.7 mmol/L 21.0-31.0 [facility] Chloride [Moles/volume] in S sophia or PlasmaOrdered By: Lee Chowdary on 08-27-2022 Chloride [Moles/Vol] 99 mmol/L 98-107 [facility] Creatinine [Mass/volume] in Serum or PlasmaOrdered By: Lee Chowdary on 08-27-2022 Creatinine [Mass/Vol] 0.80 mg/dL 0.60-1.20 [facility] Eosinophils Auto (Bld) [#/Vo l]Ordered By: Lee Chowdary on 08-27-2022 Eosinophils (Bld) [#/Vol] 0.5 10*3/uL 0.0-0.[address] [facility] Eosinophils/100 WBC Auto (Bl d)Ordered By: Lee Chowdary on 08-27-2022 Eosinophils/100 WBC (Bld) 4.5 % . [facility] Erythrocyte distribution wid th Auto (RBC) [Ratio]Ordered By: Lee Chowdary on 08-27-2022 Erythrocyte distribution width (RBC) [Ratio] 13.4 % 11.9-15.[address] [facility] Glucose [Mass/volume] in Ser um or PlasmaOrdered By: Lee Chowdary on 08-27-2022 Glucose [Mass/Vol] 126 mg/dL 70-100 [facility] Comment on above: ADA recommended refe rence rangeRandom Glucose Reference Range is dependent on time and content of last meal. Glucose of more than 200 mg/dL in a nonstressed, ambulatory subject supports the diagnosis of Diabetes Mellitus. Hematocrit Auto (Bld) [Volum e fraction]Ordered By: Lee Chowdary on 08-27-2022 Hematocrit (Bld) [Volume fraction] 42.2 % 34.0-46.[address] [facility] Hemoglobin [Mass/volume] in BloodOrdered By: Lee Chowdary on 08-27-2022 Hemoglobin (Bld) [Mass/Vol] 14.0 g/dL 11.8-15.[address] [facility] Leukocytes [#/volume] correc imer for nucleated erythrocytes in Blood by Automated counOrdered By: Lee Chowdary on 08-27-2022 WBC corrected for nucl RBC Auto (Bld) [#/Vol] 11.6 10*3/uL 3.8-11.[address] [facility] Lymphocytes Auto (Bld) [#/Vo l]Ordered By: Lee Chowdary on 08-27-2022 Lymphocytes (Bld) [#/Vol] 5.0 10*3/uL 1.00-4.[address] [facility] Lymphocytes/100 WBC Auto (Bl d)Ordered By: Lee Chowdary on 08-27-2022 Lymphocytes/100 WBC (Bld) 42.7 % . [facility] MCH Auto (RBC) [Entitic mass ]Ordered By: Lee Chowdary on 08-27-2022 MCH (RBC) [Entitic mass] 30.3 pg 24.7-34.[address] [facility] MCHC Auto (RBC) [Mass/Vol]Or dered By: Lee Chowdary on 08-27-2022 MCHC (RBC) [Mass/Vol] 33.3 g/dL 32.0-35.0 [facility] MCV Auto (RBC) [Entitic vol] Ordered By: Lee Chowdary on 08-27-2022 MCV (RBC) [Entitic vol] 91.0 fL 80-100 F [facility] Monocytes Auto (Bld) [#/Vol] Ordered By: Lee Chowdary on 08-27-2022 Monocytes (Bld) [#/Vol] 1.2 10*3/uL 0.0-0.[address] [facility] Monocytes/100 WBC Auto (Bld) Ordered By: Lee Chowdary on 08-27-2022 Monocytes/100 WBC (Bld) 10.0 % . F [facility] Neutrophils Auto (Bld) [#/Vo l]Ordered By: Lee Chowdary on 08-27-2022 Neutrophils (Bld) [#/Vol] 4.8 10*3/uL 1.8-7.[address] [facility] Neutrophils/100 WBC Auto (Bl d)Ordered By: Lee Chowdary on 08-27-2022 Neutrophils/100 WBC (Bld) 41.4 % . [facility] No Panel InformationOrdered By: Lee Chowdary on 08-27-2022 Estimated GFR (CKD-EPI) > 60.0 mL/Min [facility] Creatinine Clearance (Chem N/A [facility] Nucleated erythrocytes [Pres ence] in Blood by Automated countOrdered By: Lee Chowdary on 08-27-2022 Nucleated RBC Auto Ql (Bld) 0.1 /100{WBC} 0-0.[address] [facility] Platelet mean volume Auto (B ld) [Entitic vol]Ordered By: Lee Chowdary on 08-27-2022 Platelet mean volume (Bld) [Entitic vol] 8.6 fL 6.3-10.[address] [facility] Platelets Auto (Bld) [#/Vol] Ordered By: Lee Chowdary on 08-27-2022 Platelets (Bld) [#/Vol] 355 10*3/uL 150-[address] [facility] Potassium [Moles/volume] in Serum or PlasmaOrdered By: Lee Chowdary on 08-27-2022 Potassium [Moles/Vol] 4.1 mmol/L 3.5-5.1 [facility] RBC Auto (Bld) [#/Vol]Ordere d By: Lee Chowdary on 08-27-2022 RBC (Bld) [#/Vol] 4.64 10*6/uL 3.60-5.00 [facility] Serum or plasma anion gap de terminationOrdered By: Lee Chowdary on 08-27-2022 Anion gap [Moles/Vol] 13.4 mmol/L 6.0-15.0 [facility] Sodium [Moles/volume] in Ser um or PlasmaOrdered By: Lee Chowdary on 08-27-2022 Sodium [Moles/Vol] 137 mmol/L 136-145 [facility] Urea nitrogen [Mass/volume] in Serum or PlasmaOrdered By: Lee Chowdary on 08-27-2022 Urea nitrogen [Mass/Vol] 18 mg/dL 7-[address] [facility] WBC Auto (Bld) [#/Vol]Ordere d By: Lee Chowdary on 08-27-2022 WBC (Bld) [#/Vol] 11.6 10*3/uL 3.8-11.6 [facility] CBC AUTO DIFFon 07-24-2022 BASO # 0.2 103/ul Critically high 0.0-0.1 [facility] Comment on above: Performed By: #### C BC #### [facility] [address] [place] [address] Dr. Aurelio Leavitt Basophils/100 WBC (Bld) 1.4 % Normal 0.2-2.0 [facility] Comment on above: Performed By: #### C BC #### [facility] [address] [place] [address] Dr. Aurelio Leavitt EO # 0.7 103/ul Normal 0.0-0.7 [facility] Comment on above: Performed By: #### C BC #### [facility] [address] [place] [address] Dr. Aurelio Leavitt Eosinophils/100 WBC (Bld) 4.5 % Normal 0.9-7.0 [facility] Comment on above: Performed By: #### C BC #### [facility] [address] [address] [address] Aurelio Leavitt Erythrocyte distribution width (RBC) [Ratio] 13.3 % Normal 11.0-15.0 [facility] Comment on above: Performed By: #### C BC #### [facility] [address] [place] [address] Dr. Aurelio Leavitt Hematocrit (Bld) [Volume fraction] 48.8 % Critically high 36.0-48.0 [facility] Comment on above: Performed By: #### C BC #### [facility] [address] [place] [address] Dr. Aurelio Leavitt Hemoglobin (Bld) [Mass/Vol] 16.7 g/dL Critically high 12.0-16.0 [facility] Comment on above: Performed By: #### C BC #### [facility] [address] [place] [address] Dr. Aurelio Leavitt IG # 0.06 10e3/ul Critically high 0.00-0.03 [facility] Comment on above: Performed By: #### C BC #### [facility] [address] [place] [address] Dr. Aurelio Leavitt IG % 0.4 % Normal 0.0-0.5 [facility] Comment on above: Performed By: #### C BC #### [facility] [address] [place] [address] Dr. Aurelio Leavitt LYMPH # 6.2 103/ul Critically high 1.2-3.8 [facility] Comment on above: Performed By: #### C BC #### [facility] [address] [place] [address] Dr. Aurelio Leavitt Lymphocytes/100 WBC (Bld) 42.2 % Normal 20.5-60.0 [facility] Comment on above: Performed By: #### C BC #### [facility] [address] [place] [address] Dr. Aurelio Leavitt MANUAL DIFF REQ NO Normal [facility] Comment on above: Performed By: #### C BC #### [facility] [address] [place] [address] Dr. Aurelio Leavitt MCH (RBC) [Entitic mass] 30.4 pg Normal 26.7-34.0 [facility] Comment on above: Performed By: #### C BC #### [facility] [address] [place] [address] Dr. Aurelio Leavitt MCHC (RBC) [Mass/Vol] 34.2 g/dL Normal 29.9-35.2 [facility] Comment on above: Performed By: #### C BC #### [facility] [address] [place] [address] Dr. Aurelio Leavitt MCV (RBC) [Entitic vol] 88.9 fL Normal 81.0-99.0 [facility] Comment on above: Performed By: #### C BC #### [facility] [address] [address] [address] Aurleio Leavitt MONO # 1.1 103/ul Critically high 0.3-0.8 [facility] Comment on above: Performed By: #### C BC #### [facility] [address] [address] [address] Aurelio Leavitt Monocytes/100 WBC (Bld) 7.2 % Normal 1.7-12.0 [facility] Comment on above: Performed By: #### C BC #### [facility] [address] [place] [address] Dr. Aurelio Leavitt NEUT # 6.5 103/ul Normal 1.4-6.5 [facility] Comment on above: Performed By: #### C BC #### [facility] [address] [place] [address] Dr. Aurelio Leavitt Neutrophils/100 WBC (Bld) 44.3 % Normal 43.0-75.0 [facility] Comment on above: Performed By: #### C BC #### [facility] [address] [place] [address] Dr. Aurelio Leavitt Platelet mean volume (Bld) [Entitic vol] 11.5 fL Normal 9.5-13.5 [facility] Comment on above: Performed By: #### C BC #### [facility] [address] [place] [address] Dr. Aurelio Leavitt PLT 350 103/ul Normal 150-450 [facility] Comment on above: Performed By: #### C BC #### [facility] [address] [place], [place] [id number] Dr. Aurelio Leavitt RBC 5.49 106/ul Critically high 4.20-5.40 [facility] Comment on above: Performed By: #### C BC #### [facility] [address] [address] [address] Aurelio Leavitt WBC 14.6 103/ul Critically high 4.0-11.0 [facility] Comment on above: Performed By: #### C BC #### [facility] [address] [address] [address] Aurelio Leavitt DIRECT LDLon 07-24-2022 Cholesterol in LDL [Mass/Vol] 102 mg/dL Normal [facility] Comment on above: Performed By: #### C MREP #### [facility] [address] [address] [address] Aurelio Leavitt DLDL NORMAL SEE BELOW Normal [facility] Comment on above: Result Comment: <100 mg/dl OPTIMAL 100 - 129 mg/dl NEAR OR ABOVE OPTIMAL 130 - 159 mg/dl BORDERLINE HIGH 160 - 189 mg/dl HIGH >190 mg/dl VERY HIGH Performed By: #### C MREP #### [facility] [address] [address] [address] Aurelio Leavitt GLYCOHEMOGLOBIN A1Con 2022 ADA RECOMMENDATION SEE BELOW Normal [facility] Comment on above: Result Comment: ADA RECOMMENDED LIMIT 4.0 - 6.0 ADA THERAPEUTIC TARGET < 7.0 ACTION SUGGESTED > 7.0 Performed By: #### A CETON #### [facility] [address] [address] [address] Aurelio Leavitt Glucose [Mass/Vol] 266 mg/dL Normal [facility] Comment on above: Performed By: #### A CETON #### [facility] [address] [address] [address] Aurelio Leavitt HbA1c (Bld) [Mass fraction] 10.9 % Critically high 4.5-6.2 [facility] Comment on above: Performed By: #### A CETON #### [facility] [address] [address] [address] Aurelio Leavitt LIPID PROFILEon 07-24-2022 CHOL-HDL RATIO NORM SEE BELOW Normal [facility] Comment on above: Result Comment: 3.3 - 4.4 LOW RISK 4.4 - 7.1 AVERAGE RISK 7.1 - 11.0 MODERATE RISK >11.0 HIGH RISK Performed By: #### C MREP #### [facility] [address] [address] [address] Aurelio Leavitt Cholesterol [Mass/Vol] 257 mg/dL Critically high <=200 [facility] Comment on above: Performed By: #### C MREP #### [facility] [address] [address] [address] Aurelio Leavitt Cholesterol in HDL [Mass/Vol] 34 mg/dL Critically low 40-60 [facility] Comment on above: Performed By: #### C MREP #### [facility] [address] [address] [address] Aurelio Leavitt Cholesterol.total/Linda sterol in HDL [Mass ratio] 7.6 {ratio} Normal [facility] Comment on above: Performed By: #### C MREP #### [facility] [address] [place] [address] Dr. Aurelio Leavitt HDL NORMAL > or = 60 mg/dl - LOW CARDIOVASCULAR RISK <40 mg/dl - HIGH CARDIOVASCULAR RISK Normal [facility] Comment on above: Performed By: #### C MREP #### [facility] [address] [place] [address] Dr. Aurelio Leavitt LDL CALC NORMAL SEE BELOW Normal [facility] Comment on above: Result Comment: <100 mg/dl OPTIMAL 100 - 129 mg/dl NEAR OR ABOVE OPTIMAL 130 - 159 mg/dl BORDERLINE HIGH 160 - 189 mg/dl HIGH >190 mg/dl VERY HIGH Performed By: #### C MREP #### [facility] [address] [address] [address] Aurelio Leavitt Triglyceride [Mass/Vol] 934 mg/dL Critically high <=150 [facility] Comment on above: Performed By: #### C MREP #### [facility] [address] [address] [address] Aurelio Leavitt VLDL CALC 186.8 mg/dL Normal [facility] Comment on above: Performed By: #### C MREP #### [facility] [address] [address] [address] Aurelio Leavitt LIVER PROFILEon 07-24-2022 Albumin [Mass/Vol] 4.2 g/dL Normal 3.4-5.0 [facility] Comment on above: Performed By: #### C MREP #### [facility] [address] [address] [address] Aurelio Leavitt Albumin/Globulin [Mass ratio] 1.2 {ratio} Normal [facility] Comment on above: Performed By: #### C MREP #### [facility] [address] [address] [address] Aurelio Leavitt ALP [Catalytic activity/Vol] 127 U/L Critically high 46-116 [facility] Comment on above: Performed By: #### C MREP #### [facility] [address] [address] [address] Aurelio Leavitt ALT [Catalytic activity/Vol] 33 U/L Normal 14-59 [facility] Comment on above: Performed By: #### C MREP #### [facility] [address] [place] [address] Dr. Aurelio Leavitt AST [Catalytic activity/Vol] 14 U/L Critically low 15-37 [facility] Comment on above: Performed By: #### C MREP #### [facility] [address] [address] [address] Aurelio Leavitt BILI, CONJUGATED 0.1 mg/dL Normal 0.0-0.2 [facility] Comment on above: Performed By: #### C MREP #### [facility] [address] [place] [address] Dr. Aurelio Leavitt Bilirubin [Mass/Vol] 0.2 mg/dL Normal 0.2-1.0 [facility] Comment on above: Performed By: #### C MREP #### [facility] [address] [address] [address] Auerlio Leavitt Globulin (S) [Mass/Vol] 3.5 g/dL Normal [facility] Comment on above: Performed By: #### C MREP #### [facility] [address] [address] [address] Aurelio Leavitt Protein [Mass/Vol] 7.7 g/dL Normal 6.4-8.2 [facility] Comment on above: Performed By: #### C MREP #### [facility] [address] [address] [address] Aurelio Leavitt PROF CHEM 8 (BAS METB)on Anion gap [Moles/Vol] 10.4 mmol/L Normal [facility] Comment on above: Performed By: #### C MREP #### [facility] [address] [address] [address] Aurelio Leavitt Calcium [Mass/Vol] 9.5 mg/dL Normal 8.5-10.1 [facility] Comment on above: Performed By: #### C MREP #### [facility] [address] [address] [address] Aurelio Leavitt Chloride [Moles/Vol] 97 mmol/L Critically low 98-107 [facility] Comment on above: Performed By: #### C MREP #### [facility] [address] [place] [address] Dr. Aurelio Leavitt CO2 [Moles/Vol] 30.3 mmol/L Normal 21.0-32.0 [facility] Comment on above: Performed By: #### C MREP #### [facility] [address] [place] [address] Dr. Aurelio Leavitt Creatinine [Mass/Vol] 0.62 mg/dL Normal 0.55-1.02 [facility] Comment on above: Performed By: #### C MREP #### [facility] [address] [place] [address] Dr. Aurelio Leavitt EGFR-AF ERITREAN 60 mL/min/1.73m2 Normal >=60 [facility] Comment on above: Performed By: #### C MREP #### [facility] [address] [address] [address] Aurelio Leavitt EGFR-NON AF ERITREAN 60 mL/min/1.73m2 Normal >=60 [facility] Comment on above: Performed By: #### C MREP #### [facility] [address] [place] [address] Dr. Aurelio Leavitt Glucose [Mass/Vol] 252 mg/dL Critically high 74-106 [facility] Comment on above: Performed By: #### C MREP #### [facility] [address] [address] [address] Aurelio Leavitt Potassium [Moles/Vol] 3.7 mmol/L Normal 3.5-5.1 [facility] Comment on above: Performed By: #### C MREP #### [facility] [address] [place] [address] Dr. Aurelio Leavitt Sodium [Moles/Vol] 134 mmol/L Critically low 136-145 [facility] Comment on above: Performed By: #### C MREP #### [facility] [address] [place] [address] Dr. Aurelio Leavitt Urea nitrogen [Mass/Vol] 13.0 mg/dL Normal 7.0-18.0 [facility] Comment on above: Performed By: #### C MREP #### [facility] [address] [place] [address] Dr. Aurelio Leavitt Urea nitrogen/Creatinine [Mass ratio] 21.0 mg/mg Normal [facility] Comment on above: Performed By: #### C MREP #### [facility] [address] [place] [address] Dr. Aurelio Leavitt TSHon 07-24-2022 TSH 2.102 uIU/mL Normal 0.358-3.740 [facility] Comment on above: Performed By: #### C MREP #### [facility] [address] [place] [address] Dr. Aurelio Leavitt US CHESTon 07-10-2022 US [...] by: AVINASH SERRATO Date: 2022-07-10 16:41 Normal [facility] NM STRESS/REST MULTIon 06-26 NM STRESS/REST MULTI Patient: BOB ZENG. Exam Date: 06/26/2022 : 1975 Gender:F Ordering : DR JOSH OCHOA . Admission #: [id number] Family : Order #: [id number] CLICK HERE TO VIEW EXAM RADIOLOGY REPORT [...] OF STUDY: Good. PERFUSION DEFECT: LOCATION: Mid-anterior. Ralph. SIZE: Small (1-2 segments). SEVERITY: Mild. TYPE: [...] Serrato MD on 06/27/2022 at 06:05 Normal [facility] XR TSPINE 3 VIEWSon 06-26-19 23 [...] BARTOLOME RODRIGUEZ Date: 2022-06-26 09:05 Normal [facility] ALBUMINon 03-29-2022 Albumin [Mass/Vol] 3.5 g/dL Normal 3.4-5.0 [facility] Comment on above: Performed By: #### C MREP #### [facility] [address] [place], [place] [address] Dr. Aurelio Leavitt AMYLASEon 03-29-2022 Amylase [Catalytic activity/Vol] 27 U/L Normal 25-115 [facility] Comment on above: Performed By: #### A MY, LIPA, CMADM #### [facility] [address] [address] [address] Aurelio Leavitt Albumin [Mass/volume] in Ser um or PlasmaOrdered By: Marie Elias on 03-29-2022 Albumin [Mass/Vol] 3.5 g/dL 3.2-5.5 [facility] CARDIAC FANNY 3-6on 2 CK [Catalytic activity/Vol] 107 U/L Normal 26-192 [facility] Comment on above: Performed By: #### C MREP #### [facility] [address] [address] [address] Aurelio Leavitt CK.MB [Mass/Vol] 1.04 ng/mL Normal <=3.60 [facility] Comment on above: Performed By: #### C MREP #### [facility] [address] [id number] [address] Aurelio Leavitt HSTROP 5.8 pg/mL Normal 4.0-51.3 [facility] Comment on above: Result Comment: CUT- OFF POINTS HAVE BEEN ESTABLISHED BASED ON THE FOURTH UNIVERSAL DEFINITIONS OF MYOCARDIAL INFARCTION. THE UPPER REFERENCE LIMIT (URL) OF TROPONIN, DEFINED THE 99TH PERCENTILE OF cTnI DISTRIBUTION IN A REFERENCE POPULATION, HAS BEEN CONFIRMED THE DECISION THRESHOLD FOR SD DIAGNOSIS. Performed By: #### C MREP #### [facility] [address] [place], [place] [address] Dr. Aurelio Leavitt CARDIAC FANNY ADMITon 022 CK [Catalytic activity/Vol] 96 U/L Normal 26-192 [facility] Comment on above: Performed By: #### A MY, LIPA, CMADM #### [facility] [address] [address] [address] Aurelio Leavitt CK.MB [Mass/Vol] 0.89 ng/mL Normal <=3.60 [facility] Comment on above: Performed By: #### A MY, LIPA, CMADM #### [facility] [address] [address] [address] Aurelio Leavitt HSTROP 5.7 pg/mL Normal 4.0-51.3 [facility] Comment on above: Result Comment: CUT- OFF POINTS HAVE BEEN ESTABLISHED BASED ON THE FOURTH UNIVERSAL DEFINITIONS OF MYOCARDIAL INFARCTION. THE UPPER REFERENCE LIMIT (URL) OF TROPONIN, DEFINED THE 99TH PERCENTILE OF cTnI DISTRIBUTION IN A REFERENCE POPULATION, HAS BEEN CONFIRMED THE DECISION THRESHOLD FOR SD DIAGNOSIS. Performed By: #### A MY, LIPA, CMADM #### [facility] [address] [address] [address] Aurelio Leavitt ROMULO 24 ng/mL Normal 9-82 [facility] Comment on above: Performed By: #### A MY, LIPA, CMADM #### [facility] [address] [address] [address] Aurelio Leavitt CBC AUTO DIFFon 03-29-2022 BASO # 0.1 103/ul Normal 0.0-0.1 [facility] Comment on above: Performed By: #### C BC #### [facility] [address] [place] [address] Dr. Aurelio Leavitt Basophils/100 WBC (Bld) 1.1 % Normal 0.2-2.0 [facility] Comment on above: Performed By: #### C BC #### [facility] [address] [address] [address] Aurelio Leavitt EO # 0.2 103/ul Normal 0.0-0.7 [facility] Comment on above: Performed By: #### C BC #### [facility] [address] [place] [address] Dr. Aurelio Leavitt Eosinophils/100 WBC (Bld) 2.9 % Normal 0.9-7.0 [facility] Comment on above: Performed By: #### C BC #### [facility] [address] [place] [address] Dr. Aurelio Leavitt Erythrocyte distribution width (RBC) [Ratio] 13.2 % Normal 11.0-15.0 [facility] Comment on above: Performed By: #### C BC #### [facility] [address] [place] [address] Dr. Aurelio Leavitt Hematocrit (Bld) [Volume fraction] 45.2 % Normal 36.0-48.0 [facility] Comment on above: Performed By: #### C BC #### [facility] [address] [place] [address] Dr. Aurelio Leavitt Hemoglobin (Bld) [Mass/Vol] 16.3 g/dL Critically high 12.0-16.0 [facility] Comment on above: Performed By: #### C BC #### [facility] [address] [place] [address] Dr. Aurelio Leavitt IG # 0.02 10e3/ul Normal 0.00-0.03 [facility] Comment on above: Performed By: #### C BC #### [facility] [address] [place] [address] Dr. Aurelio Leavitt IG % 0.3 % Normal 0.0-0.5 [facility] Comment on above: Performed By: #### C BC #### [facility] [address] [place] [address] Dr. Aurelio Leavitt LYMPH # 3.8 103/ul Normal 1.2-3.8 [facility] Comment on above: Performed By: #### C BC #### [facility] [address] [place] [address] Dr. Aurelio Leavitt Lymphocytes/100 WBC (Bld) 51.4 % Normal 20.5-60.0 [facility] Comment on above: Performed By: #### C BC #### [facility] [address] [place] [address] Dr. Aurelio Leavitt MANUAL DIFF REQ NO Normal [facility] Comment on above: Performed By: #### C BC #### [facility] [address] [place] [address] Dr. Aurelio Leavitt MCH (RBC) [Entitic mass] 32.8 pg Normal 26.7-34.0 [facility] Comment on above: Performed By: #### C BC #### [facility] [address] [place] [address] Dr. Aurelio Leavitt MCHC (RBC) [Mass/Vol] 36.1 g/dL Critically high 29.9-35.2 [facility] Comment on above: Performed By: #### C BC #### [facility] [address] [place] [address] Dr. Aurelio Leavitt MCV (RBC) [Entitic vol] 90.9 fL Normal 81.0-99.0 [facility] Comment on above: Performed By: #### C BC #### [facility] [address] [place] [address] Dr. Aurelio Leavitt MONO # 0.6 103/ul Normal 0.3-0.8 [facility] Comment on above: Performed By: #### C BC #### [facility] [address] [place] [address] Dr. Aurelio Leavitt Monocytes/100 WBC (Bld) 8.0 % Normal 1.7-12.0 [facility] Comment on above: Performed By: #### C BC #### [facility] [address] [place] [address] Dr. Aurelio Leavitt NEUT # 2.7 103/ul Normal 1.4-6.5 [facility] Comment on above: Performed By: #### C BC #### [facility] [address] [place] [address] Dr. Aurelio Leavitt Neutrophils/100 WBC (Bld) 36.3 % Critically low 43.0-75.0 [facility] Comment on above: Performed By: #### C BC #### [facility] [address] [place] [address] Dr. Aurelio Leavitt Platelet mean volume (Bld) [Entitic vol] 11.5 fL Normal 9.5-13.5 [facility] Comment on above: Performed By: #### C BC #### [facility] [address] [address] [address] Aurelio Leavitt PLT 246 103/ul Normal 150-450 [facility] Comment on above: Performed By: #### C BC #### [facility] [address] [address] [address] Aurelio Leavitt RBC 4.97 106/ul Normal 4.20-5.40 [facility] Comment on above: Performed By: #### C BC #### [facility] [address] [address] [address] Aurelio Leavitt WBC 7.4 103/ul Normal 4.0-11.0 [facility] Comment on above: Performed By: #### C BC #### [facility] [address] [place] [address] Dr. Aurelio Leavitt Creatinine and Glomerular fi ltration rate.predicted panel (S/P/Bld)Ordered By: Marie Elias on 03-29-2022 Creatinine [Mass/Vol] 0.53 mg/dL 0.44-1.03 [facility] ER URINE PROFILEon 2 Bilirubin Ql (U) Negative Normal NEGATIVE [facility] Comment on above: Performed By: #### L ACT #### [facility] [address] [place] [address] Dr. Aurelio Leavitt Clarity (U) CLEAR Normal CLEAR [facility] Comment on above: Performed By: #### L ACT #### [facility] [address] [place] [address] Dr. Aurelio Leavitt Color (U) LT. YELLOW Normal YELLOW [facility] Comment on above: Performed By: #### L ACT #### [facility] [address] [place], [place] [id number] Dr. Aurelio BRDAY A micrscopic examination will be performed if indicated. Normal [facility] Comment on above: Performed By: #### L ACT #### [facility] [address] [place] [address] Dr. Aurelio Leavitt Glucose Ql (U) >1000 Abnormal NEGATIVE [facility] Comment on above: Performed By: #### L ACT #### [facility] [address] [place] [address] Dr. Aurelio Leavitt Hemoglobin Ql (U) TRACE-LYSED Abnormal NEGATIVE [facility] Comment on above: Performed By: #### L ACT #### [facility] [address] [place] [address] Dr. Aurelio Leavitt Ketones Ql (U) 15 mg/dl Abnormal NEGATIVE [facility] Comment on above: Performed By: #### L ACT #### [facility] [address] [place] [address] Dr. Aurelio Leavitt LEUKOCYTES Negative Normal NEGATIVE [facility] Comment on above: Performed By: #### L ACT #### [facility] [address] [place] [address] Dr. Aurelio Leavitt Nitrite Ql (U) Negative Normal NEGATIVE [facility] Comment on above: Performed By: #### L ACT #### [facility] [address] [place] [address] Dr. Aurelio Leavitt pH (U) 5.5 [pH] Normal 5-9 [facility] Comment on above: Performed By: #### L ACT #### [facility] [address] [place] [address] Dr. Aurelio Leavitt SPEC GRAVITY 1.020 Normal 1.005-<=1.02 5 [facility] Comment on above: Performed By: #### L ACT #### [facility] [address] [place] [address] Dr. Aurelio Leavitt UA PROTEIN Negative Normal NEGATIVE/ TRACE [facility] Comment on above: Performed By: #### L ACT #### [facility] [address] [place] [address] Dr. Aurelio Leavitt UR MICRO IND INDICATED Normal [facility] Comment on above: Performed By: #### L ACT #### [facility] [address] [place] [address] Dr. Aurelio Leavitt Urobilinogen Qn (U) 0.2 {Dalia'U}/dL Normal 0.2 - 1. 0 [facility] Comment on above: Performed By: #### L ACT #### [facility] [address] [address] [address] Aurelio Leavitt Estimated glomerular filtrat ion rate (GFR) non- AmericanOrdered By: Marie Elias on 03-29-2022 GFR/1.73 sq M.predicted among non-blacks MDRD (S/P/Bld) [Vol rate/Area] > 60 mL/Min [facility] Globulin Calc (S) [Mass/Vol] Ordered By: Marie Elias on 03-29-2022 Globulin (S) [Mass/Vol] 2.7 g/dL F [facility] LACTATE/LACTIC ACIDon 2021 Lactate [Moles/Vol] 1.0 mmol/L Normal 0.4-1.9 [facility] Comment on above: Performed By: #### L ACT #### [facility] [address] [place] [address] Dr. Aurelio Leavitt LIPASEon 03-29-2022 Lipase [Catalytic activity/Vol] 139.0 U/L Normal 73.0-393.0 [facility] Comment on above: Performed By: #### A MY, LIPA, CMADM #### [facility] [address] [address] [address] Aurelio Leavitt LIVER PROFILE SEND OUTon Albumin, Serum LIPG Normal [facility] Comment on above: Result Comment: Test not performed. Specimen is grossly lipemic. Performed By: #### L ACT #### [facility] [address] [address] [address] Aurelio Leavitt ALP [Catalytic activity/Vol] 126 U/L Critically high 44-121 [facility] Comment on above: Performed By: #### L ACT #### [facility] [address] [address] [address] Aurelio Leavitt ALT [Catalytic activity/Vol] 66 U/L Critically high 0-32 [facility] Comment on above: Performed By: #### L ACT #### [facility] [address] [address] [address] Aurelio Leavitt AST [Catalytic activity/Vol] 61 U/L Critically high 0-40 [facility] Comment on above: Performed By: #### L ACT #### [facility] [address] [address] [address] Aurelio Leavitt Bilirubin [Mass/Vol] mg/dL Normal 0.0-1.2 [facility] Comment on above: Performed By: #### L ACT #### [facility] [address] [address] [address] Aurelio Leavitt Bilirubin, Direct LIPG Normal [facility] Comment on above: Result Comment: Test not performed. Specimen is grossly lipemic. Performed By: #### L ACT #### [facility] [address] [address] [address] Aurelio Leavitt Protein [Mass/Vol] 6.5 g/dL Normal 6.0-8.5 [facility] Comment on above: Performed By: #### L ACT #### [facility] [address] [address] [address] Aurelio Leavitt Laboratory - Chemistry and C hemistry - challengeOrdered By: Marie Elias on 03-29-2022 Lipase [Catalytic activity/Vol] 42.0 U/L 22-[address] [facility] No Panel InformationOrdered By: Marie Elias on 03-29-2022 Estimated GFR () > 60 mL/Min [facility] Comment on above: GFR estimated refere nce range: According to KDOQI guidelines, <60 ml/min/1.73m2 is sufficient to diagnose a patient with chronic kidney disease. Pharmacy Creatinine Clearance (Chem N/A [facility] PROF CHEM 8 (BAS METB)on Anion gap [Moles/Vol] 15.8 mmol/L Normal [facility] Comment on above: Performed By: #### L ACT #### [facility] [address] [address] [address] Aurelio Leavitt Calcium [Mass/Vol] 8.8 mg/dL Normal 8.5-10.1 [facility] Comment on above: Performed By: #### L ACT #### [facility] [address] [address] [address] Aurelio Leavitt Chloride [Moles/Vol] 101 mmol/L Normal 98-107 [facility] Comment on above: Performed By: #### L ACT #### [facility] [address] [address] [address] Aurelio Leavitt CO2 [Moles/Vol] 21.3 mmol/L Normal 21.0-32.0 [facility] Comment on above: Performed By: #### L ACT #### [facility] [address] [address] [address] Aurelio Leavitt Creatinine [Mass/Vol] 0.53 mg/dL Critically low 0.55-1.02 [facility] Comment on above: Performed By: #### L ACT #### [facility] [address] [place] [address] Dr. Aurelio Leavitt EGFR-AF ERITREAN >60 Normal >=60 [facility] Comment on above: Performed By: #### L ACT #### [facility] [address] [address] [address] Aurelio Leavitt EGFR-NON AF ERITREAN >60 Normal >=60 [facility] Comment on above: Performed By: #### L ACT #### [facility] [address] [address] [address] Aurelio Leavitt Glucose [Mass/Vol] 347 mg/dL Critically high 74-106 [facility] Comment on above: Performed By: #### L ACT #### [facility] [address] [address] [address] Aurelio Leavitt Potassium [Moles/Vol] 4.1 mmol/L Normal 3.5-5.1 [facility] Comment on above: Performed By: #### L ACT #### [facility] [address] [address] [address] Aurelio Leavitt Sodium [Moles/Vol] 134 mmol/L Critically low 136-145 [facility] Comment on above: Performed By: #### L ACT #### [facility] [address] [address] [address] Aurelio Leavitt Urea nitrogen [Mass/Vol] 8.0 mg/dL Normal 7.0-18.0 [facility] Comment on above: Performed By: #### L ACT #### [facility] [address] [address] [address] Aurelio Leavitt Urea nitrogen/Creatinine [Mass ratio] 15.1 mg/mg Normal [facility] Comment on above: Performed By: #### L ACT #### [facility] [address] [place] [address] Dr. Aurelio Leavitt PROF CHEM 8 (BAS METB) SEND OUTon 03-29-2022 Calcium [Mass/Vol] 9.3 mg/dL Normal 8.7-10.2 [facility] Comment on above: Performed By: #### L ACT #### [facility] [address] [place] [address] Dr. Aurelio Leavitt Chloride [Moles/Vol] 92 mmol/L Critically low 96-106 [facility] Comment on above: Performed By: #### L ACT #### [facility] [address] [place] [address] Dr. Aurelio Leavitt CO2 [Moles/Vol] 27 mmol/L Normal 20-29 [facility] Comment on above: Performed By: #### L ACT #### [facility] [address] [place] [address] Dr. Aurelio Leavitt Creatinine [Mass/Vol] 1.89 mg/dL Critically high 0.57-1.00 [facility] Comment on above: Performed By: #### L ACT #### [facility] [address] [place] [address] Dr. Aurelio Leavitt GFR/1.73 sq M.predicted among non-blacks MDRD (S/P/Bld) [Vol rate/Area] 33 mL/min/{1.73_m2} Critically low >59 [facility] Comment on above: Performed By: #### L ACT #### [facility] [address] [place] [address] Dr. Aurelio Leavitt Glucose [Mass/Vol] 342 mg/dL Critically high 70-99 [facility] Comment on above: Performed By: #### L ACT #### [facility] [address] [place], [place] [id number] Dr. Aurelio Leavitt Potassium [Moles/Vol] 4.2 mmol/L Normal 3.5-5.2 [facility] Comment on above: Result Comment: Spec imen received hemolyzed. Value may be increased by hemolysis. Clinical correlation indicated. Performed By: #### L ACT #### [facility] [address] [address] [address] Aurelio Leavitt Sodium [Moles/Vol] 129 mmol/L Critically low 134-144 [facility] Comment on above: Performed By: #### L ACT #### [facility] [address] [address] [address] Aurelio Leavitt Urea nitrogen [Mass/Vol] 8 mg/dL Normal 6-24 [facility] Comment on above: Performed By: #### L ACT #### [facility] [address] [address] [address] Aurelio Leavitt Urea nitrogen/Creatinine [Mass ratio] 4 mg/mg Critically low 9- [facility] Comment on above: Performed By: #### L ACT #### [facility] [address] [address] [address] Aurelio Leavitt Protein [Mass/volume] in Ser um or PlasmaOrdered By: Marie Elias on 03-29-2022 Protein [Mass/Vol] 6.2 g/dL 6.1-7.9 [facility] Serum or plasma alanine regalado otransferase measurement without P-5'-P (enzymatic activiOrdered By: Marie Elias on 03-29-2022 ALT No additional P-5'-P [Catalytic activity/Vol] See comment [address] [facility] Comment on above: Specimen hemolyzed, redraw requested Serum or plasma albumin/glob ulin mass ratioOrdered By: Marie Elias on 03-29-2022 Albumin/Globulin [Mass ratio] 1.3 {ratio} [facility] Serum or plasma alkaline thomas sphatase measurement (enzymatic activity/volume)Ordered By: Marie Elias on 03-29-2022 ALP [Catalytic activity/Vol] See comment [address] [facility] Comment on above: Specimen hemolyzed, redraw requested Serum or plasma amylase lexus urement (enzymatic activity/volume)Ordered By: Marie Elias on 03-29-2022 Amylase [Catalytic activity/Vol] 29 U/L 28-[address] [facility] Serum or plasma anion gap de terminationOrdered By: Marie Elias on 03-29-2022 Anion gap [Moles/Vol] TNP [facility] Comment on above: Test not performed Serum or plasma aspartate am inotransferase measurement (enzymatic activity/volume)Ordered By: Marie Elias on 03-29-2022 AST [Catalytic activity/Vol] See comment [address] [facility] Comment on above: Specimen hemolyzed, redraw requested Serum or plasma calcium lexus urement (mass/volume)Ordered By: Marie Elias on 03-29-2022 Calcium [Mass/Vol] 8.8 mg/dL 8.2-10.2 [facility] Serum or plasma chloride sarai surement (moles/volume)Ordered By: Marie Elias on 03-29-2022 Chloride [Moles/Vol] 101 mmol/L 95-114 [facility] Serum or plasma glucose lexus urement (mass/volume)Ordered By: Marie Elias on 03-29-2022 Glucose [Mass/Vol] 347 mg/dL 70-100 [facility] Comment on above: ADA recommended refe rence rangeRandom Glucose Reference Range is dependent on time and content of last meal. Glucose of more than 200 mg/dL in a nonstressed, ambulatory subject supports the diagnosis of Diabetes Mellitus. Serum or plasma potassium me asurement (moles/volume)Ordered By: Marie Elias on 03-29-2022 Potassium [Moles/Vol] See comment 3.5-5.1 [facility] Comment on above: Specimen hemolyzed, redraw requested Serum or plasma sodium measu rement (moles/volume)Ordered By: Marie Elias on 03-29-2022 Sodium [Moles/Vol] 134 mmol/L 136-146 [facility] Serum or plasma total biliru bin measurement (mass/volume)Ordered By: Marie Elias on 03-29-2022 Bilirubin [Mass/Vol] See comment 0.3-1.2 [facility] Comment on above: Specimen hemolyzed, redraw requested Serum or plasma total carbon dioxide measurement (moles/volume)Ordered By: Marie Elias on 03-29-2022 CO2 [Moles/Vol] 21.3 mmol/L 22.0-30.0 [facility] Serum or plasma urea nitroge n measurement (mass/volume)Ordered By: Marie Elias on 03-29-2022 Urea nitrogen [Mass/Vol] 8 mg/dL 9-[address] [facility] URINE MICROSCOPIC ONLYon BACTERIA TRACE Abnormal NONE SEEN [facility] Comment on above: Performed By: #### L ACT #### [facility] [address] [place] [address] Dr. Aurelio Leavitt Bacteria identified Cx Nom (U) NOT INDICATED Normal [facility] Comment on above: Performed By: #### L ACT #### [facility] [address] [place] [address] Dr. Aurelio Leavitt CAST NONE SEEN Normal NONE SEEN [facility] Comment on above: Performed By: #### L ACT #### [facility] [address] [place] [address] Dr. Aurelio Leavitt Crystals LM Nom (Urine sed) NONE SEEN Normal NONE SEEN [facility] Comment on above: Performed By: #### L ACT #### [facility] [address] [place] [address] Dr. Aurelio Leavitt Epithelial cells LM Ql (Urine sed) FEW Abnormal NONE SEEN /RARE [facility] Comment on above: Performed By: #### L ACT #### [facility] [address] [place] [address] Dr. Aurelio Leavitt MUCOUS NONE SEEN Normal NONE SEEN [facility] Comment on above: Performed By: #### L ACT #### [facility] [address] [place] [address] Dr. Aurelio Leavitt RBC 2-5 Abnormal 0-2 [facility] Comment on above: Performed By: #### L ACT #### [facility] [address] [place] [address] Dr. Aurelio Leavitt WBC 0-2 Abnormal NONE SEEN [facility] Comment on above: Performed By: #### L ACT #### [facility] [address] [address] [address] Aurelio Leavitt Urine lactic acid measuremen tOrdered By: Marie Elias on 03-29-2022 Lactate (U) [Moles/Vol] 1.0 mmol/L 0.5-2.2 [facility] XR ABD FLAT UP_PA Emanuel 03-29 XR [...] JESSICA BOSTON Date: 2022-03-29 02:02 Normal [facility] AMYLASEon 03-28-2022 Amylase [Catalytic activity/Vol] 27 U/L Normal 25-115 [facility] Comment on above: Performed By: #### A CETON #### [facility] [address] [address] [address] Aurelio Leavitt CBC AUTO DIFFon 03-28-2022 BASO # 0.1 103/ul Normal 0.0-0.1 [facility] Comment on above: Performed By: #### L ACT #### [facility] [address] [address] [address] Aurelio Leavitt Basophils/100 WBC (Bld) 0.7 % Normal 0.2-2.0 [facility] Comment on above: Performed By: #### L ACT #### [facility] [address] [address] [address] Aurelio Leavitt EO # 0.2 103/ul Normal 0.0-0.7 [facility] Comment on above: Performed By: #### L ACT #### [facility] [address] [place] [address] Dr. Aurelio Leavitt Eosinophils/100 WBC (Bld) 1.9 % Normal 0.9-7.0 [facility] Comment on above: Performed By: #### L ACT #### [facility] [address] [place] [address] Dr. Aurelio Leavitt Erythrocyte distribution width (RBC) [Ratio] 13.3 % Normal 11.0-15.0 [facility] Comment on above: Performed By: #### L ACT #### [facility] [address] [place] [address] Dr. Aurelio Leavitt Hematocrit (Bld) [Volume fraction] 45.1 % Normal 36.0-48.0 [facility] Comment on above: Performed By: #### L ACT #### [facility] [address] [place] [address] Dr. Aurelio Leavitt Hemoglobin (Bld) [Mass/Vol] 16.8 g/dL Critically high 12.0-16.0 [facility] Comment on above: Performed By: #### L ACT #### [facility] [address] [place] [address] Dr. Aurelio Leavitt IG # 0.03 10e3/ul Normal 0.00-0.03 [facility] Comment on above: Performed By: #### L ACT #### [facility] [address] [place] [address] Dr. Aurelio Leavitt IG % 0.3 % Normal 0.0-0.5 [facility] Comment on above: Performed By: #### L ACT #### [facility] [address] [place] [address] Dr. Aurelio Leavitt LYMPH # 3.2 103/ul Normal 1.2-3.8 [facility] Comment on above: Performed By: #### L ACT #### [facility] [address] [place] [address] Dr. Aurelio Leavitt Lymphocytes/100 WBC (Bld) 27.9 % Normal 20.5-60.0 [facility] Comment on above: Performed By: #### L ACT #### [facility] [address] [place] [address] Dr. Aurelio Leavitt MANUAL DIFF REQ NO Normal [facility] Comment on above: Performed By: #### L ACT #### [facility] [address] [place] [address] Dr. Aurelio Leavitt MCH (RBC) [Entitic mass] 33.7 pg Normal 26.7-34.0 [facility] Comment on above: Performed By: #### L ACT #### [facility] [address] [place] [address] Dr. Aurelio Leavitt MCHC (RBC) [Mass/Vol] 37.3 g/dL Critically high 29.9-35.2 [facility] Comment on above: Performed By: #### L ACT #### [facility] [address] [place] [address] Dr. Aurelio Leavitt MCV (RBC) [Entitic vol] 90.4 fL Normal 81.0-99.0 [facility] Comment on above: Performed By: #### L ACT #### [facility] [address] [place] [address] Dr. Aurelio Leavitt MONO # 1.1 103/ul Critically high 0.3-0.8 [facility] Comment on above: Performed By: #### L ACT #### [facility] [address] [place] [address] Dr. Aurelio Leavitt Monocytes/100 WBC (Bld) 9.5 % Normal 1.7-12.0 [facility] Comment on above: Performed By: #### L ACT #### [facility] [address] [place] [address] Dr. Aurelio Leavitt NEUT # 6.8 103/ul Critically high 1.4-6.5 [facility] Comment on above: Performed By: #### L ACT #### [facility] [address] [place] [address] Dr. Aurelio Leavitt Neutrophils/100 WBC (Bld) 59.7 % Normal 43.0-75.0 [facility] Comment on above: Performed By: #### L ACT #### [facility] [address] [address] [address] Aurelio Leavitt Platelet mean volume (Bld) [Entitic vol] 12.1 fL Normal 9.5-13.5 [facility] Comment on above: Performed By: #### L ACT #### [facility] [address] [address] [address] Aurelio Leavitt PLT 247 103/ul Normal 150-450 [facility] Comment on above: Performed By: #### L ACT #### [facility] [address] [place] [address] Dr. Aurelio Leavitt RBC 4.99 106/ul Normal 4.20-5.40 [facility] Comment on above: Performed By: #### L ACT #### [facility] [address] [address] [address] Aurelio Leavitt WBC 11.3 103/ul Critically high 4.0-11.0 [facility] Comment on above: Performed By: #### L ACT #### [facility] [address] [place] [address] Dr. Aurelio Leavitt LIPASEon 03-28-2022 Lipase [Catalytic activity/Vol] 163.0 U/L Normal 73.0-393.0 [facility] Comment on above: Performed By: #### A CETON #### [facility] [address] [place] [address] Dr. Aurelio Leavitt GLYCOHEMOGLOBIN A1Con 2021 ADA RECOMMENDATION SEE BELOW Normal [facility] Comment on above: Result Comment: ADA RECOMMENDED LIMIT 4.0 - 6.0 ADA THERAPEUTIC TARGET < 7.0 ACTION SUGGESTED > 7.0 Performed By: #### A CETON #### [facility] [address] [place] [address] Dr. Aurelio Leavitt Glucose [Mass/Vol] 232 mg/dL Normal [facility] Comment on above: Performed By: #### A CETON #### [facility] [address] [place] [address] Dr. Aurelio Leavitt HbA1c (Bld) [Mass fraction] 9.7 % Critically high 4.5-6.2 [facility] Comment on above: Performed By: #### A CETON #### [facility] [address] [place] [address] Dr. Aurelio Leavitt ACETONE SERUMon 11-15-2021 ACETONE Negative Normal NEGATIVE [facility] Comment on above: Performed By: #### A CETON #### [facility] [address] [place] [address] Dr. Aurelio Leavitt CBC AUTO DIFFon 11-15-2021 BASO # 0.1 103/ul Normal 0.0-0.1 [facility] Comment on above: Performed By: #### A CETON #### [facility] [address] [place] [address] Dr. Aurelio Leavitt Basophils/100 WBC (Bld) 0.9 % Normal 0.2-2.0 [facility] Comment on above: Performed By: #### A CETON #### [facility] [address] [place] [address] Dr. Aurelio Leavitt EO # 0.2 103/ul Normal 0.0-0.7 [facility] Comment on above: Performed By: #### A CETON #### [facility] [address] [place] [address] Dr. Aurelio Leavitt Eosinophils/100 WBC (Bld) 1.7 % Normal 0.9-7.0 [facility] Comment on above: Performed By: #### A CETON #### [facility] [address] [place] [address] Dr. Aurelio Leavitt Erythrocyte distribution width (RBC) [Ratio] 13.5 % Normal 11.0-15.0 [facility] Comment on above: Performed By: #### A CETON #### [facility] [address] [place] [address] Dr. Aurelio Leavitt Hematocrit (Bld) [Volume fraction] 44.4 % Normal 36.0-48.0 [facility] Comment on above: Performed By: #### A CETON #### [facility] [address] [address] [address] Aurelio Leavitt Hemoglobin (Bld) [Mass/Vol] 15.4 g/dL Normal 12.0-16.0 [facility] Comment on above: Performed By: #### A CETON #### [facility] [address] [place] [address] Dr. Aurelio Leavitt IG # 0.09 10e3/ul Critically high 0.00-0.03 [facility] Comment on above: Performed By: #### A CETON #### [facility] [address] [place] [address] Dr. Aurelio Leavitt IG % 0.8 % Critically high 0.0-0.5 [facility] Comment on above: Performed By: #### A CETON #### [facility] [address] [place] [address] Dr. Aurelio Leavitt LYMPH # 3.8 103/ul Normal 1.2-3.8 [facility] Comment on above: Performed By: #### A CETON #### [facility] [address] [place] [address] Dr. Aurelio Leavitt Lymphocytes/100 WBC (Bld) 35.1 % Normal 20.5-60.0 [facility] Comment on above: Performed By: #### A CETON #### [facility] [address] [place] [address] Dr. Aurelio Leavitt MANUAL DIFF REQ NO Normal [facility] Comment on above: Performed By: #### A CETON #### [facility] [address] [place] [address] Dr. Aurelio Leavitt MCH (RBC) [Entitic mass] 32.0 pg Normal 26.7-34.0 [facility] Comment on above: Performed By: #### A CETON #### [facility] [address] [place] [address] Dr. Aurelio Leavitt MCHC (RBC) [Mass/Vol] 34.7 g/dL Normal 29.9-35.2 [facility] Comment on above: Performed By: #### A CETON #### [facility] [address] [address] [address] Aurelio Leavitt MCV (RBC) [Entitic vol] 92.1 fL Normal 81.0-99.0 [facility] Comment on above: Performed By: #### A CETON #### [facility] [address] [place] [address] Dr. Aurelio Leavitt MONO # 1.0 103/ul Critically high 0.3-0.8 [facility] Comment on above: Performed By: #### A CETON #### [facility] [address] [place] [address] Dr. Aurelio Leavitt Monocytes/100 WBC (Bld) 9.0 % Normal 1.7-12.0 [facility] Comment on above: Performed By: #### A CETON #### [facility] [address] [place] [address] Dr. Aurelio Leavitt NEUT # 5.6 103/ul Normal 1.4-6.5 [facility] Comment on above: Performed By: #### A CETON #### [facility] [address] [place] [address] Dr. Aurelio Leavitt Neutrophils/100 WBC (Bld) 52.5 % Normal 43.0-75.0 [facility] Comment on above: Performed By: #### A CETON #### [facility] [address] [place] [address] Dr. Aurelio Leavitt Platelet mean volume (Bld) [Entitic vol] 12.3 fL Normal 9.5-13.5 [facility] Comment on above: Performed By: #### A CETON #### [facility] [address] [place] [address] Dr. Aurelio Leavitt PLT 304 103/ul Normal 150-450 [facility] Comment on above: Performed By: #### A CETON #### [facility] [address] [place] [address] Dr. Aurelio Leavitt RBC 4.94 106/ul Normal 4.20-5.40 [facility] Comment on above: Performed By: #### A CETON #### [facility] [address] [place], [place] [address] Dr. Aurelio Leavitt WBC 11.0 103/ul Normal 4.0-11.0 [facility] Comment on above: Performed By: #### A CETON #### [facility] [address] [place], [place] [address] Dr. Aurelio Leavitt [facility] SARS-CoV-2 (COVID-19) RNA GABY+probe Ql (Unsp spec) Detected Critically abnormal NOT DETECTED [facility] Comment on above: Result Comment: This test is not yet approved or cleared by the [place] FDA. When there are no FDA-approved or cleared tests available, and other criteria are met, FDA can make tests available under an emergency access mechanism called an Emergency Use Authorization (EUA). The EUA for this test is supported by the Contact Acid [employer] Operator of Health and Human Service's declaration that [...] used). Performed By: #### A CETON #### [facility] [address] [place] [address] Dr. Aurelio Leavitt D-DIMERon 11-15-2021 D-DIMER 0.30 mg/L FEU Normal <=0.59 [facility] Comment on above: Performed By: #### A CETON #### [facility] [address] [address] [address] Aurelio Leavitt D-DIMER COMMENTS SEE BELOW Normal [facility] Comment on above: Result Comment: Incr [...] hospitalization. Performed By: #### A JANIE #### [facility] [address] [address] [address] Aurelio Leavitt PROF 14(COMP METB)on 022 Albumin [Mass/Vol] 3.1 g/dL Critically low 3.4-5.0 [facility] Comment on above: Performed By: #### H ANANDA, CMP #### [facility] [address] [place] [address] Dr. Aurelio Leavitt Albumin/Globulin [Mass ratio] 0.7 {ratio} Normal [facility] Comment on above: Performed By: #### H ANANDA, CMP #### [facility] [address] [place] [address] Dr. Aurelio Leavitt ALP [Catalytic activity/Vol] 130 U/L Critically high 46-116 [facility] Comment on above: Performed By: #### H ANANDA, CMP #### [facility] [address] [place] [address] Dr. Aurelio Leavitt Anion gap [Moles/Vol] 16.1 mmol/L Normal [facility] Comment on above: Performed By: #### Paddy MALAVE, CMP #### [facility] [address] [place] [address] Dr. Aurelio Leavitt AST [Catalytic activity/Vol] 11 U/L Critically low 15-37 [facility] Comment on above: Performed By: #### H ANANDA, CMP #### [facility] [address] [place] [address] Dr. Aurelio Leavitt Bilirubin [Mass/Vol] 1.0 mg/dL Normal 0.2-1.0 [facility] Comment on above: Performed By: #### H ANANDA, CMP #### [facility] [address] [place] [address] Dr. Aurelio Leavitt Calcium [Mass/Vol] 7.3 mg/dL Critically low 8.5-10.1 [facility] Comment on above: Performed By: #### H ANANDA, CMP #### [facility] [address] [address] [address] Aurelio Leavitt Chloride [Moles/Vol] 94 mmol/L Critically low 98-107 [facility] Comment on above: Performed By: #### H STROPN, CMP #### [facility] [address] [address] [address] Aurelio Leavitt CO2 [Moles/Vol] 20.6 mmol/L Critically low 21.0-32.0 [facility] Comment on above: Performed By: #### H STROPN, CMP #### [facility] [address] [address] [address] Aurelio Leavitt Creatinine [Mass/Vol] 0.57 mg/dL Normal 0.55-1.02 [facility] Comment on above: Performed By: #### H STROPN, CMP #### [facility] [address] [address] [address] Aurelio Leavitt EGFR-AF ERITREAN >60 Normal >=60 [facility] Comment on above: Performed By: #### H STROPN, CMP #### [facility] [address] [address] [address] Aurelio Leavitt EGFR-NON AF ERITREAN >60 Normal >=60 [facility] Comment on above: Performed By: #### H STROPN, CMP #### [facility] [address] [address] [address] Aurelio Leavitt Globulin (S) [Mass/Vol] 4.2 g/dL Normal [facility] Comment on above: Performed By: #### H GUSPN, CMP #### [facility] [address] [address] [address] Aurelio Leavitt Glucose [Mass/Vol] 462 mg/dL Critically high 74-106 [facility] Comment on above: Performed By: #### H STROPN, CMP #### [facility] [address] [address] [address] Aurelio Leavitt Potassium [Moles/Vol] 4.7 mmol/L Normal 3.5-5.1 [facility] Comment on above: Performed By: #### H STROPN, CMP #### [facility] [address] [address] [address] Aurelio Leavitt Protein [Mass/Vol] 7.3 g/dL Normal 6.4-8.2 [facility] Comment on above: Performed By: #### H GUSPN, CMP #### [facility] [address] [address] [address] Aurelio Leavitt Sodium [Moles/Vol] 126 mmol/L Critically low 136-145 [facility] Comment on above: Performed By: #### H GUSPN, CMP #### [facility] [address] [address] [address] Aurelio Leavitt Urea nitrogen [Mass/Vol] 14.0 mg/dL Normal 7.0-18.0 [facility] Comment on above: Performed By: #### H GUSPN, CMP #### [facility] [address] [address] [address] Aurelio Leavitt Urea nitrogen/Creatinine [Mass ratio] 24.6 mg/mg Normal [facility] Comment on above: Performed By: #### H GUSPN, CMP #### [facility] [address] [address] [address] Aurelio Leavitt TROPONIN, HIGH SENSITIVITYon 11-15-2021 HSTROP 5.3 pg/mL Normal 4.0-51.3 [facility] Comment on above: Result Comment: CUT- OFF POINTS HAVE BEEN ESTABLISHED BASED ON THE FOURTH UNIVERSAL DEFINITIONS OF MYOCARDIAL INFARCTION. THE UPPER REFERENCE LIMIT (URL) OF TROPONIN, DEFINED THE 99TH PERCENTILE OF cTnI DISTRIBUTION IN A REFERENCE POPULATION, HAS BEEN CONFIRMED THE DECISION THRESHOLD FOR SD DIAGNOSIS. Performed By: #### H GUSPN, CMP #### [facility] [address] [place] [address] Dr. Aurelio Leavitt XR CHEST 1 Von [...] by: CORKY PINTO Date: 2021-11-15 01:06 [facility] HNO ID: [id number] Author: RT Jb(R) Service: ? Author Type: [...] RT Jb(R) March 24, 2021 6:37 AM [facility] MRI CERVICAL SPINE WO IVCONo n 03-24-2021 MRI CERVICAL SPINE WO IVCON * * *Final Report* * * DATE OF EXAM: Mar 24 2021 6:50AM [facility] 0297 - MRI CERVICAL SPINE WO [...] is taken as C2-3. Structural anomalies: None. Side Seam Envelope Machine Operator: VALENTINE Transcribe Date/Time: Mar 24 2021 7:36A Dictated by : LITTLE HERNANDEZ MD This examination was interpreted and the report reviewed and electronically signed by: LITTLE HERNANDEZ MD on Mar 24 2021 7:40AM EST [id number] CN Normal [facility] CERVICAL SPINE 2 OR 3 [facility] 12-16-2019 CERVICAL SPINE 2 OR 3 [facility] Department of Radiology [address] [place] [id number] Patient Name: JACQUELYN ZENG : 1975 [...] identified. Electronically signed: Sha Gross. Transcribed by: [email or web address], User Resident: Electronically Signed by: SHA GROSS @ 12/16/2019 11:44 AM Normal [facility] Comment on above: Order Comment: Evalu ate MRI KNEE WO CONTRAST LEFTon 12-07-2019 MRI KNEE WO CONTRAST [facility] Department of Radiology [address] [place] [id number] Patient Name: JACQUELYN ZENG : 1975 Sex: F Age: Race: White Pt. Location: Patient Status: Ordered Date: 11/30/2019 1:55:00 PM Completed Date: 12/07/2019 08:52 AM Requesting Provider: BENJAMIN CUMMINS Attending Provider: Report Copy To: Signs & Symptoms: M25.569 Pain in unspecified knee I10 History: [place], PHONE:[phone],* NEEDS ORTHO F/U APPT. NO METAL Workers comp is approved with this diagnosis, cannot change it. [facility] Approved for CPT 18007 Claim#[id number] Valid 11/27/19-12/11/19 12/01/19 *SLA Comments: Please Evaluate [...] knee. Electronically signed: Michael Thayer. Transcribed by: [email or web address], User Resident: Electronically Signed by: MICHAEL THAYER @ 12/07/2019 11:04 AM Normal [facility] Comment on above: Order Comment: Pleas e Evaluate MRI SHOULDER WO CONTRAST LEF Ton 12-07-2019 MRI SHOULDER WO CONTRAST LEFT [facility] Department of Radiology [address] [place] [phone] Patient Name: JACQUELYN ZENG : 1975 Sex: F Age: Race: White Pt. Location: 84 Patient Status: Ordered Date: 11/30/2019 1:55:00 PM Completed Date: 12/07/2019 08:51 AM Requesting Provider: BENJAMIN CUMMINS Attending Provider: Report Copy To: Signs & Symptoms: M25.512 Pain in left shoulder I10 History: [place], PHONE:[phone],* NEEDS ORTHO F/U APPT. NO METAL [facility] Approved for CPT 03693 Claim#[id number] Valid 11/27/19-12/11/19 12/01/19 *SLA Comments: Please Evaluate [...] ligament. Electronically signed: Michael Thayer. Transcribed by: [email or web address], User Resident: Electronically Signed by: MICHAEL THAYER @ 12/07/2019 10:56 AM Normal [facility] Comment on above: Order Comment: Pleas e Evaluate KNEE LEFT 4VWSon 10-21-2019 KNEE LEFT 4VWS [facility] Department of Radiology [address] [place] [phone] Patient Name: JACQUELYN ZENG : 1975 Sex: F Age: Race: White Pt. Location: 84 Patient Status: Ordered Date: 10/21/2019 9:50:00 AM Completed Date: 10/21/2019 10:05 AM Requesting Provider: BENJAMIN CUMMINS Attending Provider: Report Copy To: Signs & Symptoms: M25.569 Pain in unspecified knee I10 History: [place] Comments: Views (X-RAY, KNEE): AP, Lateral, Tunnel, [place] , Weight Bearing?: Y Exam: KNEE LEFT 4VWS KNEE LEFT 4VWS 10/21/2019 10:05 AM CLINICAL INDICATIONS: M25.569 Pain in unspecified knee I10 left knee pain, recent falls and injury TECHNOLOGIST COMMENTS: Patient complains of left knee pain. Patient states history of several recent falls. QUESTION FOR THE RADIOLOGIST: Views (X-RAY, KNEE): AP, Lateral, Tunnel, [place] , Weight Bearing?: Y PROTOCOL: AP,Lateral,Tunnel and Tangential views were obtained. COMPARISON: None FINDINGS: There is no joint effusion fracture or dislocation. Mineralization and alignment is within normal limits. Mild lateral patellar tilt. Mild early marginal osteophyte formation. IMPRESSION: Early marginal osteophyte formation without acute ossific normality. Electronically signed: Jessica Garcia. Transcribed by: [email or web address], User Resident: Electronically Signed by: JESSICA GARCIA @ 10/21/2019 11:11 AM Normal [facility] Comment on above: Order Comment: Views (X-RAY, KNEE): AP, Lateral, Tunnel, [place] , Weight Bearing?: Y SHOULDER LEFTon 10-21-2019 SHOULDER LEFT [facility] Department of Radiology [address] [place] [phone] Patient Name: JACQUELYN ZENG : 1975 [...] Electronically signed: Chepe Espinoza M.D.. Transcribed by: [email or web address], User Resident: Electronically Signed by: CHEPE ESPINOZA @ 10/21/2019 11:59 AM Normal [facility] Comment on above: Order Comment: Views (X-RAY, SHOULDER): AP, Gras[place], Y-Lateral, [place] POC STREP SCREENon 9 STREP POC Negative Normal NEG [facility] Comment on above: Result Comment: Perf ormed in Emergency Department. Performed By: #### 3 0211 #### [facility] [address] Vital Signs Date Time Vital Sign Value Performing Clinician Facility 12-23-2024 11:48-0400 Body height 175.3 cm Olu Arce MD Work Phone: [facility] 12-23-2024 11:48-0400 Body mass index (BMI) [Ratio] 31.9 kg/m2 Olu Arce MD Work Phone: [facility] 12-23-2024 11:48-0400 Body weight 97.98 kg Olu Arce MD Work Phone: [facility] 12-23-2024 11:48-0400 Diastolic blood pressure 62 mm[Hg] Olu Arce MD Work Phone: [facility] 12-23-2024 11:48-0400 Systolic blood pressure 130 mm[Hg] Olu Arce MD Work Phone: [facility] 12-04-2024 08:53-0400 Body temperature 97.5 [degF] Kinga Froimson MANUFACTURING MAINTENANCE TECHNICIAN.TRANSFORMER SHOP SUPERVISOR Work Phone: [facility] 12-04-2024 08:53-0400 Diastolic blood pressure 71 mm[Hg] Kinga Froimson MANUFACTURING MAINTENANCE TECHNICIAN.TRANSFORMER SHOP SUPERVISOR Work Phone: [facility] 12-04-2024 08:53-0400 Heart rate 98 /min Kinga Froimson MANUFACTURING MAINTENANCE TECHNICIAN.TRANSFORMER SHOP SUPERVISOR Work Phone: [facility] 12-04-2024 08:53-0400 Respiratory rate 21 /min Kinga Froimson MANUFACTURING MAINTENANCE TECHNICIAN.TRANSFORMER SHOP SUPERVISOR Work Phone: [facility] 12-04-2024 08:53-0400 Systolic blood pressure 116 mm[Hg] Kinga Froimson MANUFACTURING MAINTENANCE TECHNICIAN.TRANSFORMER SHOP SUPERVISOR Work Phone: [facility] 10-22-2024 08:30-0400 Body mass index (BMI) [Ratio] 31.9 kg/m2 Olu Arce MD Work Phone: [facility] 10-22-2024 08:30-0400 Body weight 97.98 kg Olu Arce MD Work Phone: [facility] 10-12-2024 08:25-0400 Body height 175.3 cm Josh Ochoa MD Work Phone: [facility] 10-12-2024 08:25-0400 Body mass index (BMI) [Ratio] 32.64 kg/m2 Josh Ochoa MD Work Phone: [facility] 10-12-2024 08:25-0400 Body temperature 97.81 [degF] Josh Ochoa MD Work Phone: [facility] 10-12-2024 08:25-0400 Body weight 100.25 kg Josh Ochoa MD Work Phone: [facility] 10-12-2024 08:25-0400 Diastolic blood pressure 66 mm[Hg] Josh Ochoa MD Work Phone: [facility] 10-12-2024 08:25-0400 Heart rate 61 /min Josh Ochoa MD Work Phone: [facility] 10-12-2024 08:25-0400 Respiratory rate 22 /min Josh Ochoa MD Work Phone: [facility] 10-12-2024 08:25-0400 SaO2% (BldA) [Mass fraction] 90 % Josh cOhoa MD Work Phone: [facility] 10-12-2024 08:25-0400 Systolic blood pressure 134 mm[Hg] Josh Ochoa MD Work Phone: [facility] 10-08-2024 10:55-0400 Diastolic blood pressure 90 mm[Hg] Jessee Billy MD Work Phone: [facility] 10-08-2024 10:55-0400 Systolic blood pressure 140 mm[Hg] Jessee Billy MD Work Phone: [facility] 10-08-2024 10:27-0400 Body height 175.3 cm Jessee Billy MD Work Phone: [facility] 10-08-2024 10:27-0400 Body mass index (BMI) [Ratio] 31.6 kg/m2 Jessee Billy MD Work Phone: [facility] 10-08-2024 10:27-0400 Body temperature 97 [degF] Jessee Billy MD Work Phone: [facility] 10-08-2024 10:27-0400 Body weight 97.07 kg Jessee Billy MD Work Phone: [facility] 10-08-2024 10:27-0400 Heart rate 94 /min Jessee Billy MD Work Phone: [facility] 09-11-2024 11:41-0400 Diastolic blood pressure 68 mm[Hg] Kinga Froimson MANUFACTURING MAINTENANCE TECHNICIAN.TRANSFORMER SHOP SUPERVISOR Work Phone: [facility] 09-11-2024 11:41-0400 Heart rate 100 /min Kinga Froimson MANUFACTURING MAINTENANCE TECHNICIAN.TRANSFORMER SHOP SUPERVISOR Work Phone: [facility] 09-11-2024 11:41-0400 Systolic blood pressure 121 mm[Hg] Kinga Froimson MANUFACTURING MAINTENANCE TECHNICIAN.TRANSFORMER SHOP SUPERVISOR Work Phone: [facility] 09-10-2024 08:14-0400 Body mass index (BMI) [Ratio] 31.16 kg/m2 Olu Arce MD Work Phone: [facility] 09-10-2024 08:14-0400 Body weight 95.71 kg Olu Arce MD Work Phone: [facility] 09-10-2024 08:14-0400 Diastolic blood pressure 82 mm[Hg] Olu Arce MD Work Phone: [facility] 09-10-2024 08:14-0400 Systolic blood pressure 126 mm[Hg] Olu Arce MD Work Phone: [facility] 08-10-2024 09:24-0400 Body height 175.3 cm Josh Ochoa MD Work Phone: [facility] 08-10-2024 09:24-0400 Body mass index (BMI) [Ratio] 32.19 kg/m2 Josh Ochoa MD Work Phone: [facility] 08-10-2024 09:24-0400 Body temperature 97.11 [degF] Josh Ochoa MD Work Phone: [facility] 08-10-2024 09:24-0400 Body weight 98.88 kg Josh Ochoa MD Work Phone: [facility] 08-10-2024 09:24-0400 Diastolic blood pressure 52 mm[Hg] Josh Ochoa MD Work Phone: [facility] 08-10-2024 09:24-0400 Heart rate 107 /min Josh Ochoa MD Work Phone: [facility] 08-10-2024 09:24-0400 Respiratory rate 22 /min Josh Ochoa MD Work Phone: [facility] 08-10-2024 09:24-0400 SaO2% (BldA) [Mass fraction] 91 % Josh Ochoa MD Work Phone: [facility] 08-10-2024 09:24-0400 Systolic blood pressure 112 mm[Hg] Josh Ochoa MD Work Phone: [facility] 05-11-2024 08:52-0500 Body height 175.3 cm Josh Ochoa MD Work Phone: [facility] 05-11-2024 08:52-0500 Body mass index (BMI) [Ratio] 33.82 kg/m2 Josh Ochoa MD Work Phone: [facility] 05-11-2024 08:52-0500 Body temperature 95.9 [degF] Josh Ochoa MD Work Phone: [facility] 05-11-2024 08:52-0500 Body weight 103.87 kg Josh Ochoa MD Work Phone: [facility] 05-11-2024 08:52-0500 Diastolic blood pressure 74 mm[Hg] Josh Ochoa MD Work Phone: [facility] 05-11-2024 08:52-0500 Heart rate 105 /min Josh Ochoa MD Work Phone: [facility] 05-11-2024 08:52-0500 Respiratory rate 22 /min Josh Ochoa MD Work Phone: [facility] 05-11-2024 08:52-0500 SaO2% (BldA) [Mass fraction] 92 % Josh Ochoa MD Work Phone: [facility] 05-11-2024 08:52-0500 Systolic blood pressure 138 mm[Hg] Josh Ochoa MD Work Phone: [facility] 04-14-2024 10:47-0500 Diastolic blood pressure 72 mm[Hg] Infusion 10 Work Phone: [facility] 04-14-2024 10:47-0500 Heart rate 92 /min Infusion 10 Work Phone: [facility] 04-14-2024 10:47-0500 Systolic blood pressure 110 mm[Hg] Infusion 10 Work Phone: [facility] 04-13-2024 11:16-0500 Diastolic blood pressure 68 mm[Hg] Infusion 5 Work Phone: [facility] 04-13-2024 11:16-0500 Heart rate 102 /min Infusion 5 Work Phone: [facility] 04-13-2024 11:16-0500 Systolic blood pressure 125 mm[Hg] Infusion 5 Work Phone: [facility] 04-08-2024 11:48-0500 Diastolic blood pressure 72 mm[Hg] Infusion 7 Work Phone: [facility] 04-08-2024 11:48-0500 Heart rate 87 /min Infusion 7 Work Phone: [facility] 04-08-2024 11:48-0500 Systolic blood pressure 110 mm[Hg] Infusion 7 Work Phone: [facility] 04-08-2024 08:40-0500 Body temperature 97.5 [degF] Kinga Froimson MANUFACTURING MAINTENANCE TECHNICIAN.TRANSFORMER SHOP SUPERVISOR Work Phone: [facility] 04-08-2024 08:40-0500 Diastolic blood pressure 75 mm[Hg] Kinga Froimson MANUFACTURING MAINTENANCE TECHNICIAN.TRANSFORMER SHOP SUPERVISOR Work Phone: [facility] 04-08-2024 08:40-0500 Heart rate 70 /min Kinga Froimson MANUFACTURING MAINTENANCE TECHNICIAN.TRANSFORMER SHOP SUPERVISOR Work Phone: [facility] 04-08-2024 08:40-0500 Systolic blood pressure 126 mm[Hg] Kinga Froimson MANUFACTURING MAINTENANCE TECHNICIAN.TRANSFORMER SHOP SUPERVISOR Work Phone: [facility] 02-26-2024 09:06-0400 Body height 175.3 cm Sara Kramer CUSTODIAL AIDE Work Phone: [facility] 02-26-2024 09:06-0400 Body mass index (BMI) [Ratio] 34.7 kg/m2 Sara Kramer CUSTODIAL AIDE Work Phone: [facility] 02-26-2024 09:06-0400 Body weight 106.59 kg Sara Palmeri CUSTODIAL AIDE Work Phone: [facility] 02-26-2024 09:06-0400 Diastolic blood pressure 72 mm[Hg] Sara Palmeri CUSTODIAL AIDE Work Phone: [facility] 02-26-2024 09:06-0400 Systolic blood pressure 110 mm[Hg] Sara Palmeri CUSTODIAL AIDE Work Phone: [facility] 01-08-2024 10:24-0400 Body height 175.26 cm MD Josh Ochoa Work Phone: [facility] 01-08-2024 10:24-0400 Body weight 109.76 kg MD Josh Ochoa Work Phone: [facility] 06-20-2023 14:12-0500 Body height 175.3 cm Josh Ochoa MD Work Phone: [facility] 06-20-2023 14:12-0500 Body mass index (BMI) [Ratio] 37.07 kg/m2 Josh Ochoa MD Work Phone: [facility] 06-20-2023 14:12-0500 Body temperature 97.11 [degF] Josh Ochoa MD Work Phone: [facility] 06-20-2023 14:12-0500 Body weight 113.85 kg Josh Ochoa MD Work Phone: [facility] 06-20-2023 14:12-0500 Diastolic blood pressure 78 mm[Hg] Josh Ochoa MD Work Phone: [facility] 06-20-2023 14:12-0500 Heart rate 100 /min Josh Ochoa MD Work Phone: [facility] 06-20-2023 14:12-0500 SaO2% (BldA) [Mass fraction] 96 % Josh Ochoa MD Work Phone: [facility] 06-20-2023 14:12-0500 Systolic blood pressure 140 mm[Hg] Josh Ochoa MD Work Phone: [facility] 01-02-2023 08:39-0400 Diastolic blood pressure 76 mm[Hg] 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 MANUFACTURING MAINTENANCE TECHNICIAN.TRANSFORMER SHOP SUPERVISOR Work Phone: [facility] 01-02-2023 08:39-0400 Heart rate 97 /min 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 MANUFACTURING MAINTENANCE TECHNICIAN.TRANSFORMER SHOP SUPERVISOR Work Phone: [facility] 01-02-2023 08:39-0400 Systolic blood pressure 127 mm[Hg] 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 MANUFACTURING MAINTENANCE TECHNICIAN.TRANSFORMER SHOP SUPERVISOR Work Phone: [facility] 09-06-2022 16:05-0400 Diastolic blood pressure 81 mm[Hg] MD Josh Ochoa Work Phone: [facility] 09-06-2022 16:05-0400 Heart rate 78 /min MD Josh Ochoa Work Phone: [facility] 09-06-2022 16:05-0400 Respiratory rate 16 /min MD Josh Ochoa Work Phone: [facility] 09-06-2022 16:05-0400 SaO2% (BldA) [Mass fraction] 93 % MD Josh Ochoa Work Phone: [facility] 09-06-2022 16:05-0400 Systolic blood pressure 129 mm[Hg] MD Josh Ochoa Work Phone: [facility] 09-06-2022 15:35-0400 Body temperature 98.4 [degF] MD oJsh Ochoa Work Phone: [facility] 09-06-2022 15:05-0400 Inhaled oxygen flow rate 8 L/min MD Josh Ochoa Work Phone: [facility] 09-06-2022 13:23-0400 Body height 175.26 cm MD Josh Ochoa Work Phone: [facility] 09-06-2022 13:23-0400 Body mass index (BMI) [Ratio] 33.2 kg/m2 MD Josh Ochoa Work Phone: [facility] 09-06-2022 13:23-0400 Body weight 102.05 kg MD Josh Ochoa Work Phone: [facility] 04-17-2022 10:11-0500 Body height 175.3 cm Kinga 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 Work Phone: [facility] 04-17-2022 10:11-0500 Body weight 91.63 kg Kinga Froimson MANUFACTURING MAINTENANCE TECHNICIAN.TRANSFORMER SHOP SUPERVISOR Work Phone: [facility] 04-17-2022 10:11-0500 Diastolic blood pressure 76 mm[Hg] Kinga Froimson MANUFACTURING MAINTENANCE TECHNICIAN.TRANSFORMER SHOP SUPERVISOR Work Phone: [facility] 04-17-2022 10:11-0500 Heart rate 103 /min Kinga Froimson MANUFACTURING MAINTENANCE TECHNICIAN.TRANSFORMER SHOP SUPERVISOR Work Phone: [facility] 04-17-2022 10:11-0500 Systolic blood pressure 131 mm[Hg] Kinga Froimson MANUFACTURING MAINTENANCE TECHNICIAN.TRANSFORMER SHOP SUPERVISOR Work Phone: [facility] 01-09-2022 15:11-0400 Body height 175.3 cm Kinga Froimson MANUFACTURING MAINTENANCE TECHNICIAN.TRANSFORMER SHOP SUPERVISOR Work Phone: [facility] 01-09-2022 15:11-0400 Body weight 97.07 kg Kinga Froimson MANUFACTURING MAINTENANCE TECHNICIAN.TRANSFORMER SHOP SUPERVISOR Work Phone: [facility] 01-09-2022 15:11-0400 Diastolic blood pressure 74 mm[Hg] Kinga Froimson MANUFACTURING MAINTENANCE TECHNICIAN.TRANSFORMER SHOP SUPERVISOR Work Phone: [facility] 01-09-2022 15:11-0400 Heart rate 92 /min Kinga Froimson MANUFACTURING MAINTENANCE TECHNICIAN.TRANSFORMER SHOP SUPERVISOR Work Phone: [facility] 01-09-2022 15:11-0400 Respiratory rate 22 /min Kinga Froimson MANUFACTURING MAINTENANCE TECHNICIAN.TRANSFORMER SHOP SUPERVISOR Work Phone: [facility] 01-09-2022 15:11-0400 Systolic blood pressure 137 mm[Hg] Kinga Froimson MANUFACTURING MAINTENANCE TECHNICIAN.TRANSFORMER SHOP SUPERVISOR Work Phone: [facility] 12-31-2021 13:00-0400 Body height 170.18 cm Vianney Collins Other [employer] Other 12-31-2021 13:00-0400 Body mass index (BMI) [Ratio] 33.51 kg/m2 Vianney Recinosmond Other [employer] Other 12-31-2021 13:00-0400 Body temperature 97.5 [degF] Vianney Recinosmond Other [employer] Other 12-31-2021 13:00-0400 Body weight 97.07 kg Vianney Recinosmond Other [employer] Other 12-31-2021 13:00-0400 Diastolic blood pressure 70 mm[Hg] Vianney Recinosmond Other [employer] Other 12-31-2021 13:00-0400 Respiratory rate 18 /min Vianney Collins Other [employer] Other 12-31-2021 13:00-0400 SaO2% (BldA) [Mass fraction] 97 % Vianney Collins Other [employer] Other 12-31-2021 13:00-0400 Systolic blood pressure 122 mm[Hg] Vianney Collins Other [employer] Other 12-09-2021 10:10-0400 Body height Chanel Workman Other [employer] Other 12-09-2021 10:10-0400 Body mass index (BMI) [Ratio] 33.67 kg/m2 Chanel Workman Other [employer] Other 12-09-2021 10:10-0400 Body temperature 98 [degF] Chanel Workman Other [employer] Other 12-09-2021 10:10-0400 Body weight 97.52 kg Chanel Ji Other [employer] Other 12-09-2021 10:10-0400 Diastolic blood pressure 79 mm[Hg] Chanel Workman Other [employer] Other 12-09-2021 10:10-0400 Respiratory rate 20 /min Chanel Workman Other [employer] Other 12-09-2021 10:10-0400 SaO2% (BldA) [Mass fraction] 94 % Chanel Workman Other [employer] Other 12-09-2021 10:10-0400 Systolic blood pressure 132 mm[Hg] Chanel Ji Other [employer] Other Encounters Encounter Date Encounter Type Care Provider Facility Start: 01-18-2025 End: 01-18-2025 Telephone encounter Kinga Fred KARIMI Work Phone: Neurology Comment on above: Forms (c9) Start: 01-12-2025 End: 01-12-2025 ambulatory FARZAD DUMONT [facility] Start: 01-04-2025 End: 01-04-2025 ambulatory JOSE FRANCISCO MARR [facility] Start: 12-31-2024 End: 12-31-2024 Clinisync Result Encounter Josh Ochoa MD Work Phone: [facility] External Department Unsolicited Start: 12-31-2024 End: 12-31-2024 Clinisync Result Encounter Josh Ochoa MD Work Phone: [facility] External Department Unsolicited Start: 12-23-2024 End: 12-23-2024 Bamboo flowsheet Olu Arce MD Work Phone: [facility] Start: 12-23-2024 End: 12-23-2024 Bamboo flowsheet Olu Arce MD Work Phone: [facility] Start: 12-23-2024 End: 12-23-2024 [...] 11-10-2024 Refill Olu Arce MD Work Phone: [facility] Comment on above: Lumbar spondylosis; Cervical spondylosis; Other nerve root and plexus disorders Start: 11-05-2024 ambulatory El[facility] Facility:[facility] Start: 10-22-2024 End: 10-22-2024 Bamboo flowsheet Olu Arce MD Work Phone: [facility] Start: 10-22-2024 End: 10-22-2024 Bamboo flowsheet Olu Arce MD Work Phone: [facility] Start: 10-22-2024 End: 10-22-2024 Clinical Support Olu Arce MD Work Phone: [facility] Comment on above: Trochanteric [...] End: 10-12-2024 Social Work Dc Levy Manuel [facility] Work Phone: [facility] Comment on above: Major depressive [...] Start: 10-08-2024 End: 10-08-2024 ambulatory [facility] Start: 10-08-2024 End: 10-08-2024 Subsequent hospital visit by physician Jessee Billy MD Work Phone: [place] [facility] Comment on above: Lumbosacral spondylo sis without myelopathy Start: 10-08-2024 End: 10-08-2024 [facility] Start: 10-08-2024 End: 10-08-2024 Subsequent hospital visit by physician Fabricio Pain Procedure C-Arm [facility] Comment on above: Pain Start: 09-22-2024 End: 09-22-2024 [facility] Start: 09-16-2024 End: 09-18-[address] [facility] Start: 09-16-2024 End: 09-18-2024 Subsequent hospital visit by physician Jessee Billy MD Work Phone: [facility] Comment on above: Localized osteoarthr itis of left shoulder Cervical spondylosis without myelopathy; Lumbosacral spondylosis without myelopathy Start: 09-16-2024 End: 09-22-2024 Clinisync Result Encounter Generic External Data Provider [facility] External Department Unsolicited Start: 09-16-2024 End: 09-22-2024 Clinisync Result Encounter Generic External Data Provider [facility] External Department Unsolicited Start: 09-11-2024 End: 09-11-2024 ambulatory KINGAHER MENDES Facility:[facility] Start: 09-11-2024 End: 09-11-2024 Patient encounter procedure 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 Work Phone: Neurology Comment on above: Intractable chronic migraine without aura and without status migrainosus (Primary Dx); Chronic daily headache Start: 09-10-2024 End: 09-10-2024 Bamboo flowsheet Olu Arce MD Work Phone: [facility] Start: 09-10-2024 End: 09-10-2024 Bamboo flowsheet Olu Arce MD Work Phone: [facility] Start: 09-10-2024 End: 09-10-2024 Clinical Support Olu Arce MD Work Phone: [facility] Comment on above: Trochanteric bursiti s of both hips (Primary Dx); Lumbar spondylosis; Lumbar radiculopathy; Nerve root and plexus disorder, unspecified Start: 09-07-2024 End: 09-07-2024 Bamboo flowsheet Dc Jackson [facility] Work Phone: [facility] Start: 09-07-2024 End: 09-07-2024 Bamboo flowsheet Dc Jackson [facility] Work Phone: [facility] Start: 09-07-2024 End: 09-07-2024 Social Work Dc Jackson [facility] Work Phone: [facility] Comment on above: Major depressive dis order, single episode, severe without psychotic features (HCC) (CMS/HCC); Generalized anxiety disorder (CMS/HCC); Panic disorder (CMS/HCC) Start: 08-27-2024 ambulatory Elmo Levy Solano Facility:[facility] Start: 08-13-2024 End: 08-13-2024 Social Work Dc Jackson [facility] Work Phone: [facility] Comment on above: Major depressive dis order, single episode, severe without psychotic features (HCC) (CMS/HCC); Generalized anxiety disorder (CMS/HCC) Start: 08-13-2024 End: 08-13-2024 Bamboo flowsheet Dc Jackson [facility] Work Phone: [facility] Start: 08-13-2024 End: 08-13-2024 Bamboo flowsheet Dc Jackson [facility] Work Phone: [facility] Start: 08-12-2024 End: 08-12-2024 Nam Ochoa MD Work Phone: [facility] Comment on above: Generalized anxiety disorder (CMS/HCC) Start: 08-12-2024 End: 08-12-2024 ambulatory [facility] Start: 08-10-2024 End: 08-10-2024 Bamboo flowsheet Josh Ochoa MD Work Phone: [facility] Start: 08-10-2024 End: 08-10-2024 Bamboo flowsheet Josh Ochoa MD Work Phone: [facility] Start: 08-10-2024 End: 08-10-2024 Patient encounter procedure Josh Ochoa MD Work Phone: [facility] Work Phone: Start: 08-10-2024 End: 08-10-2024 Postop follow up visit related to original px Josh Ochoa MD Work Phone: [facility] Comment on above: Medicare annual well ness [...] Bamboo flowsheet Olu Arce MD Work Phone: [facility] Start: 07-16-2024 End: 07-16-2024 Bamboo flowsheet Olu Arce MD Work Phone: [facility] Start: 07-16-2024 End: 07-16-2024 ambulatory OLU ARCE Not Available Start: 07-06-2024 End: 07-06-2024 Bamboo flowsheet Dc Jackson [facility] Work Phone: [facility] Start: 07-06-2024 End: 07-06-2024 Bamboo flowsheet Dc Jackson [facility] Work Phone: [facility] Start: 07-06-2024 End: 07-06-2024 Social Work Dc Jackson [facility] Work Phone: [facility] Comment on above: Major depressive dis order, single episode, severe without psychotic features (HCC) (CMS/HCC); Generalized anxiety disorder (CMS/HCC); Panic disorder (CMS/HCC) Start: 06-29-2024 End: 06-29-2024 Telephone encounter Kinga Ivankimmie TRANSFORMER SHOP SUPERVISOR Work Phone: Neurology Comment on above: Referral Request Start: 06-23-2024 End: 06-23-2024 ambulatory JOSE FRANCISCO MARR [facility] Start: 06-02-2024 End: 06-02-2024 Nam Arce MD Work Phone: [facility] Comment on above: Lumbar spondylosis; Cervical spondylosis; Other nerve root and plexus disorders Generalized anxiety disorder (CMS/HCC); Hyperlipidemia, unspecified (CMS/HCC) Start: 05-18-2024 End: 05-18-2024 [employer]amboo [employer] Dc Jackson [facility] Work Phone: [facility] Start: 05-18-2024 End: 05-18-2024 BamSimple Tit[employer]o [employer] Dckhalida Jackson [facility] Work Phone: [facility] Start: 05-18-2024 End: 05-18-2024 Social Work Dckhalida Jackson [facility] Work Phone: [facility] Comment on above: Major depressive dis order, single episode, severe without psychotic features (HCC) (CMS/HCC); Generalized anxiety disorder (CMS/HCC); Panic disorder (CMS/HCC) Start: 05-11-2024 End: 05-11-2024 Bamboo flowsheet Josh Ochoa MD Work Phone: [facility] Start: 05-11-2024 End: 05-11-2024 Bamboo flowsheet Josh Ocoha MD Work Phone: [facility] Start: 05-11-2024 End: 05-11-2024 Office outpatient visit 25 minutes Josh Ochoa MD Work Phone: [facility] Comment on above: Type 2 diabetes [...] 04-20-2024 Refill Carolynn Reyes NP Work Phone: [facility] Start: 04-14-2024 End: 04-15-2024 Patient [...] End: 04-08-2024 Patient encounter procedure 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 APRN.TRANSFORMER SHOP SUPERVISOR Work Phone: Neurology Comment on above: Intractable chronic migraine without aura and without status migrainosus (Primary Dx); Chronic daily headache; Status migrainosus Start: 04-06-2024 End: 04-06-2024 ambulatory JOSE FRANCISCO MARR [facility] Start: 03-31-2024 End: 03-31-2024 Refill Josh Ochoa MD Work Phone: [facility] Comment on above: Generalized anxiety disorder (CMS/HCC); ADD (attention deficit disorder) without hyperactivity Start: 03-30-2024 End: 04-06-2024 Telephone encounter 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 TRANSFORMER SHOP SUPERVISOR Work Phone: Neurology Comment on above: Botox Injection Start: 03-30-2024 End: 03-30-2024 ambulatory SARA KRAMER Not Available Start: 03-30-2024 End: 03-30-2024 Phys/qhp telephone evaluation 11-20 min Sara Kramer CUSTODIAL AIDE Work Phone: [facility] Comment on above: Intractable chronic migraine without aura and without status migrainosus (CMS/HCC) (Primary Dx); Cervical spondylosis; Lumbar spondylosis; Complex regional pain syndrome type 1, affecting unspecified site; Trochanteric bursitis of both hips Start: 03-25-2024 End: 03-25-2024 Telephone encounter Olu Arce MD Work Phone: [facility] Start: 03-24-2024 End: 03-24-2024 Bamboo flowsheet Dc Jackson [facility] Work Phone: [facility] Start: 03-24-2024 End: 03-24-2024 Bamboo flowsheet Dc Jackson [facility] Work Phone: [facility] Start: 03-24-2024 End: 03-24-2024 Social Work Dc Jackson [facility] Work Phone: [facility] Comment on above: Major depressive dis order, single episode, severe without psychotic features (HCC) (CMS/HCC); Generalized anxiety disorder (CMS/HCC); Panic disorder (CMS/HCC); Insomnia, unspecified type Start: 02-26-2024 End: 02-26-2024 Bamboo flowsheet Sara Kramer CUSTODIAL AIDE Work Phone: [facility] Start: 02-26-2024 End: 02-26-2024 Bamboo flowsheet Sara Kramer CUSTODIAL AIDE Work Phone: [facility] Start: 02-26-2024 End: 02-26-2024 Clinical Support Sara Kramer CUSTODIAL AIDE Work Phone: [facility] Comment on above: Trochanteric bursiti s of both hips (Primary Dx); Cervical paraspinal muscle spasm; Complex regional pain syndrome type 1, affecting unspecified site; Migraine without aura and without status migrainosus, not intractable (CMS/HCC); Lumbar spondylosis; Cervical spondylosis; Other nerve root and plexus disorders Start: 02-17-2024 End: 02-17-2024 Bamboo flowsheet Dc Jackson [facility] Work Phone: [facility] Start: 02-17-2024 End: 02-17-2024 Bamboo flowsheet Dc Jackson [facility] Work Phone: [facility] Start: 02-17-2024 End: 02-17-2024 Social Work cD Jackson [facility] Work Phone: [facility] Comment on above: Major depressive dis order, single episode, severe without psychotic features (HCC) (CMS/HCC); Generalized anxiety disorder (CMS/HCC); Panic disorder (CMS/HCC) Start: 02-12-2024 End: 02-12-2024 ambulatory JOSE FRANCISCO MARR [facility] Start: 02-07-2024 End: 02-07-2024 Clinisync Result Encounter Generic External Data Provider [facility] External Department Unsolicited Start: 02-07-2024 End: 02-07-2024 Clinisync Result Encounter Generic External Data Provider [facility] External Department Unsolicited Start: 02-07-2024 End: 02-07-2024 ambulatory [facility] Start: 01-23-2024 End: 01-23-2024 Bamboo flowsheet Dc Jackson [facility] Work Phone: [facility] Start: 01-23-2024 End: 01-23-2024 Bamboo flowsheet Dc Jackson [facility] Work Phone: [facility] Start: 01-23-2024 End: 01-23-2024 Social Work cD Jackson [facility] Work Phone: [facility] Comment on above: Major depressive dis order, single episode, severe without psychotic features (HCC) (CMS/HCC); Generalized anxiety disorder (CMS/HCC) Start: 01-22-2024 End: 01-22-2024 Refill Josh Ochoa MD Work Phone: [facility] Comment on above: Generalized anxiety disorder (CMS/HCC) Start: 01-15-2024 End: 01-15-2024 ambulatory JOSH OCHOA Facility:[facility] Start: 01-08-2024 End: 01-08-2024 ambulatory MD Josh Ochoa Work Phone: [facility] Work Phone: Start: 01-08-2024 End: 01-08-2024 Departed Referred MD Josh Ochoa Work Phone: [facility] Work Phone: Start: 12-26-2023 End: 12-26-2023 Social Work Dc Levy Manuel [facility] Work Phone: [facility] Comment on above: Major depressive dis order, single episode, severe without psychotic features (HCC) (CMS/HCC); Generalized anxiety disorder (CMS/HCC); Panic disorder (CMS/HCC) Start: 10-24-2023 End: 03-04-2024 Telephone encounter 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 APRN.TRANSFORMER SHOP SUPERVISOR Work Phone: Neurology Comment on above: Forms; Bwc (Worker's Comp) C9 Botox form Start: 10-08-2023 Telephone encounter Kinga mae APRN.TRANSFORMER SHOP SUPERVISOR Work Phone: Neurology Comment on above: Patient Question Start: 06-22-2023 Clinisync Result Encounter Josh Ochoa MD Work Phone: [facility] External Department Unsolicited Start: 06-22-2023 Clinisync Result Encounter Josh Ochoa MD Work Phone: [facility] External Department Unsolicited Start: 06-21-2023 Refill Josh Petersen Work Phone: [facility] Comment on above: Generalized anxiety disorder (CMS/HCC) Start: 06-20-2023 End: 06-20-2023 Office outpatient visit 25 minutes Josh Ochoa MD Work Phone: [facility] Comment on above: Type 2 diabetes neli itus with hyperglycemia, with long-term current use of insulin (CMS/HCC) (Primary Dx); Benign essential HTN (CMS/HCC); ADD (attention deficit disorder) without hyperactivity; MDD (major depressive disorder), recurrent episode, mild (HCC) (CMS/HCC); Generalized anxiety disorder (CMS/HCC); Mild intermittent asthma without complication (CMS/HCC); Complex regional pain syndrome type 1, affecting unspecified site; Mixed hyperlipidemia (CMS/HCC); penitentiary (current) use of insulin (Z79.4) Start: 06-20-2023 Bamboo flowsheet Josh Ochoa MD Work Phone: [facility] Start: 06-20-2023 Bamboo flowsheet Josh Ochoa MD Work Phone: [facility] Start: 06-17-2023 End: 03-04-2024 Telephone encounter 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 APRN.TRANSFORMER SHOP SUPERVISOR Work Phone: Neurology Comment on above: Forms ([facility] forms) Start: 03-25-2023 Telephone encounter Kinga mae MANUFACTURING MAINTENANCE TECHNICIAN.TRANSFORMER SHOP SUPERVISOR Work Phone: Otolaryngology Comment on above: Appointment Start: 01-02-2023 End: 01-02-2023 Patient encounter procedure Kinga Mendes MANUFACTURING MAINTENANCE TECHNICIAN.TRANSFORMER SHOP SUPERVISOR Work Phone: Neurology Comment on above: Intractable chronic migraine without aura and without status migrainosus (Primary Dx); Chronic daily headache Start: 10-10-2022 End: 10-10-2022 Patient encounter procedure Kinga Mendes MANUFACTURING MAINTENANCE TECHNICIAN.TRANSFORMER SHOP SUPERVISOR Work Phone: Neurology Comment on above: Intractable chronic migraine without aura and without status migrainosus (Primary Dx); Chronic daily headache Start: 09-06-2022 End: 09-06-2022 Admission to same day surgery center MD Josh Ochoa Work Phone: [facility] Start: 09-06-2022 End: 09-06-2022 ambulatory MD Josh Ochoa Work Phone: [facility] Work Phone: Start: 08-28-2022 End: 08-29-[address] BARTOLOME RODRIGUEZ Facility:[facility] Start: 08-27-2022 End: 08-27-2022 ambulatory MD Josh Ochoa Work Phone: [facility] Work Phone: Start: 08-27-2022 End: 08-27-2022 Patient encounter procedure MD Josh Ochoa Work Phone: [facility] Work Phone: Start: 08-01-[address] JOSH OCHOA Facil ity:[facility]1 Start: 07-30-2022 Encounter for genera l adult medical examination without abnormal findings DR JOSH OCHOA [facility] Start: 07-24-2022 End: 07-25-[address] JOSH OCHOA Facility:[facility] Start: 07-24-2022 End: 07-25-2022 Encounter for general adult medical examination without abnormal findings DR JOSH OCHOA Facility:[facility] Start: 07-17-2022 Telephone encounter Kinga mae APRN.TRANSFORMER SHOP SUPERVISOR Work Phone: Otolaryngology Comment on above: Referral Request Start: 07-17-2022 End: 07-17-2022 Patient encounter procedure Kinga Mendes APRN.TRANSFORMER SHOP SUPERVISOR Work Phone: Neurology Comment on above: Intractable chronic migraine without aura and without status migrainosus (Primary Dx) Start: 07-10-2022 End: 07-11-[address] AVINASH SERRATO Facility:[facility] Start: 06-26-2022 End: 06-27-[address] AVINASH SERRATO Facility:[facility] Start: 04-17-2022 End: 04-17-2022 Patient encounter procedure Kinga Mendes APRN.TRANSFORMER SHOP SUPERVISOR Work Phone: Neurology Comment on above: Intractable chronic migraine without aura and without status migrainosus (Primary Dx) Start: 03-29-2022 End: 03-29-2022 ambulatory MD Josh Ochoa Work Phone: [facility] Work Phone: Start: 03-29-2022 End: 03-29-2022 Patient encounter procedure MD Josh Ochoa Work Phone: [facility] Start: 03-29-2022 End: 03-29-2022 ambulatory MARIE ELIAS Facility:[facility] Start: 03-28-2022 End: 03-29-[address] JOSH OCHOA Facility:[facility] Start: 01-09-2022 End: 01-09-2022 Patient encounter procedure Kinga Mendes APRN.TRANSFORMER SHOP SUPERVISOR Work Phone: Neurology Comment on above: Intractable chronic migraine without aura and without status migrainosus (Primary Dx) Start: 12-31-2021 End: 12-31-2021 ambulatory Vianney Collins Other [employer] Other Start: 12-31-2021 Office outpatient vi sit 25 minutes Vianney Collins [facility] Start: 12-13-2021 End: 12-14-[address] JOSH OCHOA Facility:[facility] Start: 12-09-2021 End: 12-09-2021 ambulatory Chanel Workman Other [employer] Other Start: 12-09-2021 Office outpatient vi sit 15 minutes Chanel Workman [facility] Start: 11-15-2021 End: 11-15-[address] MEG TIDWELL . Facility:[facility] Start: 09-08-2021 Telephone encounter Kinga mae APRN.TRANSFORMER SHOP SUPERVISOR Work Phone: Neurology Comment on above: Referral Request Start: 01-12-2020 End: 01-27-2020 Patient encounter procedure BENJAMIN CUMMINS Facility:[facility] Start: 12-07-2019 End: 12-08-2019 Patient encounter procedure BENJAMIN CUMMINS Facility:[facility] Start: 10-21-2019 End: 10-22-2019 Patient encounter procedure BENJAMIN CUMMINS Facility:[facility] Start: 02-18-2019 End: 02-18-2019 Emergency department patient visit CHONG CARRERO Facility:[facility] Procedures Date Procedure Procedure Detail Performing [...] Data Provider Start: 09-16-2024 XR SHOULDER LEFT (SD N 2 VIEWS) Generic External Data Provider Start: 07-20-2024 IGP,APTIMA HPV,AGE GDLN Jacquelyn PFEIFFER Work Phone: Start: 07-20-2024 Microscopic observat ion [Identifier] in Cervix by Cyto stain Josh Ochoa MD Work Phone: Start: 02-07-2024 ALL LIPID PROFILE (FASTING) Generic External Data Provider Start: 02-07-2024 [facility] DIRECT LDL Generic External Data Provider Start: 06-22-2023 [facility] MICROALBUMIN, RA ND UR Josh Ochoa [...] 09-07-2021 Adult depression screening assessment Kinga Mendes APRN.TRANSFORMER SHOP SUPERVISOR Work Phone: Start: 07-11-2020 Microscopic observat ion [Identifier] in Cervix by Cyto stain Josh Ochoa MD Work Phone: Plan of Treatment Date Care Activity Detail Author Start: 02-27-2028 Screening for malign ant neoplasm of cervix [facility] Start: 09-23-2027 Diabetes Screening Diabetes Screenin [facility] Start: 07-21-2027 Screening for malign ant neoplasm of cervix Pap Smear [facility] Start: 06-23-2027 [facility] Start: 02-11-2027 [facility] Start: 10-05-2025 DIABETES SCREEN DIABETES SCREEN [facility] Start: 10-05-2025 [facility] Start: 08-10-2025 Medicare Annual Well ness (AWV) Medicare Annual Wellness (AWV) [facility] Start: 07-26-2025 End: 07-26-2025 Patient encounter procedure [facility] Start: 07-20-2025 Medicare Annual Well ness (AWV) Medicare Annual Wellness (AWV) [facility] Start: 07-11-2025 Screening for malign ant neoplasm of cervix [facility] Start: 04-13-2025 End: 04-13-2025 Patient encounter procedure 04/13/2025 9:00 AM EST Office Visit [facility] [address] [place] [phone] Josh Ochoa MD [address] [place] [phone] [facility] Start: 03-05-2025 Glaucoma screening Diabetes: R etinopathy Screening [facility] Start: 03-03-2025 End: 03-03-2025 Patient encounter procedure 03/03/2025 11:30 AM EDT Office Visit Neurology [address] [facility] [address] [place] [address] Kinga Mendes APRN.TRANSFORMER SHOP SUPERVISOR [address] [place] [address] 12 week botox Neurology Comment on above: 12 week botox Start: 02-17-2025 End: 02-17-2025 Clinical Support 02/17/2025 8:00 AM EDT Clinical Support [facility] [place] [facility] [address] [facility] [address] [place] [address] Olu Arce MD [address] [facility] [address] [id number] [facility] [place] [facility] Start: 01-11-2025 Influenza vaccination [facility] Start: 12-23-2024 End: 12-23-2024 Clinical Support [facility] Comment on above: Arrived Start: 12-21-2024 Hemoglobin A1c measurement Diabetes: Hemoglobin A1C [facility] Start: 12-11-2024 Influenza vaccination Flu vacc ine (Season Ended) [facility] Start: 12-04-2024 End: 12-04-2024 Patient encounter procedure 12/04/2024 9:00 AM EDT Office Visit Neurology [id number] [facility] [address] [place] [address] Kinga Mendes APRN.TRANSFORMER SHOP SUPERVISOR [address] [place] [address] BOTOX Neurology Comment on above: BOTOX Start: 11-16-2024 End: 11-16-2024 Social Work 11/16/2024 10:00 AM EDT Social Work [facility] [address] [facility] [address] [place] [address] Dc Jackson, [facility] [address] [place] [address] [facility] Start: 10-22-2024 End: 10-22-2024 Clinical Support [facility] Comment on above: Arrived Start: 10-12-2024 End: 10-12-2024 Patient encounter procedure [facility] Comment on above: Arrived Start: 09-10-2024 End: 09-10-2024 Clinical Support [facility] Comment on above: Arrived Start: 09-07-2024 End: 09-07-2024 Social Work 09/07/2024 10:00 AM EDT [facility] [address] [place] [address] Dc Jackson, [facility] [address] [place] [address] [facility] Start: 2024 Shingles vaccine (1 of 2) Shingles vaccine (1 of 2) [facility] Start: 2024 Shingrix Vaccine (1 of 2) Shingrix Vaccine (1 of 2) [facility] Start: 08-28-2024 Screening for malign ant neoplasm of breast Breast cancer screen [facility] Start: 08-13-2024 End: 08-13-2024 Social Work 08/13/2024 3:00 PM EDT [facility] [address] [place] [phone] Dc Jackson, [facility] [address] [place] [address] [facility] Start: 08-12-2024 Hemoglobin A1c measurement Diabetes: Hemoglobin A1C [facility] Start: 08-10-2024 End: 08-10-2025 Basic metabolic 1998 panel - Serum or Plasma Basic metabolic panel Lab Routine Encounter for long-term (current) use of medications Expected: 08/10/2024 (Approximate), Expires: 08/10/2025 [facility] Comment on above: Expected: 08/10/2024 (Approximate), Expires: 08/10/2025 Start: 08-10-2024 End: 08-10-2025 CBC W Auto Differential panel - Blood CBC and differential Lab Routine Encounter for long-term (current) use of medications Expected: 08/10/2024 (Approximate), Expires: 08/10/2025 [facility] Comment on above: Expected: 08/10/2024 (Approximate), Expires: 08/10/2025 Start: 08-10-2024 End: 08-10-2025 Hemoglobin A1c/Hemoglobin.total in Blood Hemoglobin A1c Lab Routine Type 2 diabetes mellitus with hyperglycemia, with long-term current use of insulin ([facility]) Expected: 08/10/2024 (Approximate), Expires: 08/10/2025 [facility] Comment on above: Expected: 08/10/2024 (Approximate), Expires: 08/10/2025 Start: 08-10-2024 End: 08-10-2025 Hepatic function 2000 panel - Serum or Plasma Hepatic function panel Lab Routine Encounter for long-term (current) use of medications Expected: 08/10/2024 (Approximate), Expires: 08/10/2025 [facility] Comment on above: Expected: 08/10/2024 (Approximate), Expires: 08/10/2025 Start: 08-10-2024 End: 08-10-2025 Lipid 1996 panel - Serum or Plasma Lipid panel Lab Routine Dyslipidemia ([facility]) Expected: 08/10/2024 (Approximate), Expires: 08/10/2025 [facility] Comment on above: Expected: 08/10/2024 (Approximate), Expires: 08/10/2025 Start: 08-10-2024 End: 08-10-2025 Microalbumin/Creatinine panel in random Urine Microalbumin / creatinine, urine ratio Lab Routine Type 2 diabetes mellitus with hyperglycemia, with long-term current use of insulin ([facility]) Expected: 08/10/2024 (Approximate), Expires: 08/10/2025 [facility] Work Phone: Comment on above: Expected: [...] 08/03/2024 3:00 PM EDT Social Work [facility] [address] [place] [phone] Dc Jackson, [facility] [address] [place] [address] [facility] Start: 07-20-2024 End: 07-20-2024 Patient encounter procedure 07/20/2024 9:00 AM EDT Office Visit [facility] [address] [place] [phone] Jacquelyn Huitron PA [address] [place] [address] [facility] Start: 07-16-2024 End: 07-16-2024 Clinical Support [facility] Comment on above: Arrived Start: 06-22-2024 Urine screening for protein Diabetes: Urine Protein Screening [facility] Start: 06-15-2024 End: 06-15-2024 Social Work 06/15/2024 2:00 PM EST Social Work [facility] [address] [place] [phone] Dc Jackson, [facility] [address] [place] [address] [facility] Start: 06-11-2024 End: 06-11-2024 Clinical Support 06/11/2024 2:35 PM EST Clinical Support [facility] [address] [place] [phone] Sara Kramer, CUSTODIAL AIDE [address] [facility] [place] [address] [facility] Start: 06-02-2024 End: 06-02-2024 Patient encounter procedure 06/02/2024 9:00 AM EST Office Visit [facility] [address] [place] [phone] Jacquelyn Huitron, PA [address] [place], [place] [phone] [facility] Start: 05-18-2024 End: 05-18-2024 Social Work 05/18/2024 1:00 PM EST Social Work [facility] [address] [place] [phone] Dc Jackosn, [facility] [address] [place] [address] [facility] Start: 05-14-2024 End: 05-14-2024 Patient encounter procedure 05/14/2024 9:00 AM EST Office Visit [facility] [address] [place] [address] Jacquelyn Huitron, PA [address] [place] [address] [facility] Start: 05-13-2024 Annual Wellness Visi t (Medicare Advantage) Annual Wellness Visit (Medicare Advantage) [facility] Start: 05-11-2024 End: 05-11-2024 Patient encounter procedure [facility] Comment on above: Arrived Start: 04-15-2024 End: 04-15-2024 Clinical Support 04/15/2024 8:00 AM EST Clinical Support [facility] [address] [place] [phone] Sara Kramer, CUSTODIAL AIDE [address] [place] [phone] [facility] 210 Start: 04-14-2024 End: 04-14-2024 Social Work [facility] Comment on above: Non-DHE #3 Infusion Day 3 Start: 04-09-2024 Influenza vaccination Influenza Vacc ine (#1) [facility] Comment on above: Postponed from 01/11 (Other Patient Reasons) Start: 04-08-2024 End: 04-08-2024 Patient encounter procedure 04/08/2024 8:30 AM EST Office Visit Neurology [address] [address] Kinga Mendes APRN.TRANSFORMER SHOP SUPERVISOR [address] [place] [address] BOTOX Q12 weeks authorized er 04/02/2025 Neurology [...] 03/30/2024 8:15 AM EST Office Visit [facility] [address] [place] [phone] Sara Kramer, CUSTODIAL AIDE [address] [facility] [address] [place] [address] [facility] 210 Start: 03-24-2024 End: 03-24-2024 Social Work 03/24/2024 11:00 AM EST Social Work [facility] [address] [place] [address] Dc Jackson, [facility] [address] [place] [address] [facility] Start: 03-19-2024 End: 03-19-2024 Patient encounter procedure 03/19/2024 2:30 PM EST Office Visit [facility] [address] [place] [address] Josh Ochoa MD [address] [place] [address] [facility] Start: 03-11-2024 End: 03-11-2024 Patient encounter procedure 03/11/2024 9:30 AM EDT Office Visit Neurology [address] [place], [place] [phone] Kinga Mendes APRN.TRANSFORMER SHOP SUPERVISOR [address] [place] [address] Botox Neurology Comment on above: Botox Start: 03-05-2024 Glaucoma screening Diabetes: R etinopathy Screening [facility] Start: 02-27-2024 Medicare Annual Well ness (AWV) Medicare Annual Wellness (AWV) [facility] Healthcare Start: 02-26-2024 End: 02-26-2024 Clinical Support [facility] 210 Comment on above: Arrived Start: 02-17-2024 End: 02-17-2024 Social Work 02/17/2024 2:00 PM EDT Social Work [facility] [address] [place] [phone] Dc Jackson, [facility] [address] [place] [address] [facility] Start: 01-28-2024 End: 01-28-2024 Clinical Support 01/28/2024 9:00 AM EDT [facility] [address] [place] [address] Sara Kramer CUSTODIAL AIDE [address] [place] [address] [facility] 210 Start: 01-23-2024 End: 01-23-2024 Social Work 01/23/2024 2:00 PM EDT Social Work [facility] [address] [place] [phone] Dc Jackson, [facility] [address] [place] [address] [facility] Start: 01-12-2024 Covid-19 Vaccine ( season) Covid-19 Vaccine ( season) [facility] Start: 01-12-2024 Influenza vaccination Influenza Vacc ine (#1) [facility] Start: 12-21-2023 Hemoglobin A1c measurement Diabetes: Hemoglobin A1C [facility] Start: 08-29-2023 Screening for malign ant neoplasm of breast [facility] Start: 08-01-2023 End: 08-01-2023 Clinical Support 08/01/2023 1:40 PM EDT [facility] [address] [place] [phone] Olu Arce MD [address], [place] [phone] [facility] Start: 07-15-2023 End: 07-15-2023 Patient encounter procedure 07/15/2023 8:15 AM EST Office Visit [facility] [address] [place] [address] Josh Ochoa MD [address] [place] [phone] [facility] Start: 07-02-2023 End: 07-02-2023 Patient encounter procedure 07/02/2023 12:00 PM EST Office Visit [facility] [address] [place] [address] Sara Kramer, CUSTODIAL AIDE [address] [place] [address] [facility] 210 Start: 07-01-2023 End: 07-01-2023 Social Work 07/01/2023 10:00 AM EST Social Work [facility] [address] [place] [phone] Dc Jackson, [facility] [address] [place] [address] [facility] Start: 06-20-2023 End: 06-20-2023 Patient encounter procedure 06/20/2023 2:15 PM EST Office Visit [facility] [address] [place] [phone] Josh Ochoa MD [address] [place] [phone] Arrived [facility] Comment on above: Arrived Start: 06-20-2023 End: 06-20-2024 Albumin, urine, random Albumin, urine, random Lab Routine Type 2 diabetes mellitus with hyperglycemia, with long-term current use of insulin ([facility]) Expected: 06/20/2023 (Approximate), Expires: 06/20/2024 [facility] Healthcare Comment on above: Expected: 06/20/2023 (Approximate), Expires: 06/20/2024 Start: 06-20-2023 End: 06-20-2024 Hemoglobin A1c measurement Hemoglobin A1c Lab Routine Type 2 diabetes mellitus with hyperglycemia, with long-term current use of insulin ([facility]) Expected: 06/20/2023 (Approximate), Expires: 06/20/2024 [facility] Healthcare Work Phone: Comment on above: Expected: 06/20/2023 (Approximate), Expires: 06/20/2024 Start: 05-13-2023 Behavioral Health Screening Behavioral Health Screening [facility] Start: 01-11-2023 Covid-19 Vaccine () Covid-19 Vaccine () [facility] Start: 01-11-2023 Influenza vaccination C [facility] Start: 09-07-2022 Adult depression screening assessment DEPRESSION SCREENING [facility] Start: 09-06-[address] [facility] Start: 09-06-[address] [facility] Start: 05-13-2022 DEPRESSION ASSESSMENT DEPRESSION ASS ESSMENT [facility] Start: 01-11-2022 Influenza vaccination C [facility] Start: 05-13-2021 DEPRESSION ASSESSMENT DEPRESSION ASS ESSMENT [facility] Start: 05-01-2021 COVID-19 VACCINE (3 - Booster for Moderna series) COVID-19 VACCINE (3 - Booster for Moderna series) [facility] Start: 01-24-2021 COVID-19 VACCINE (3 - Booster for Moderna series) COVID-19 VACCINE (3 - Booster for Moderna series) [facility] Start: 01-24-2021 COVID-19 VACCINE (3 - Moderna series) COVID-19 VACCINE (3 - Moderna series) [facility] Start: 09-01-2019 COLOGUARD (FIT-DNA) COLOGUARD (FIT-D NA) [facility] Start: 09-01-2019 Colonoscopy COLONOSCOPY [facility] Start: 09-01-2019 COLORECTAL CANCER SCREENING COLORECTAL CANCER SCREENING [facility] Start: 09-01-[address] [facility] Start: 09-01-2019 DIABETES SCREEN DIABETES SCREEN [facility] Start: 09-01-2019 FECAL OCCULT BLOOD FECAL OCCULT BLOO D [facility] Start: 09-01-2019 Lipid 1996 panel - S sophia or Plasma Lipid Screening [facility] Start: 09-01-2019 Lipid panel Lipid Screening [facility] Start: 09-01-2019 LIPID SCREEN LIPID SCREEN [facility] Start: 09-01-2019 Screening for malign ant neoplasm of colon [facility] Start: 09-01-2019 SIGMOIDOSCOPY SIGMOIDOSCOPY [facility] Start: 2014 Mammography [facility] Start: 2009 Diabetes screen Diabetes screen [employer] Start: 2004 HPV TESTING HPV TESTING [facility] Start: 2004 Screening for malign ant neoplasm of cervix [facility] Start: 2004 Zoledronic acid therapy ALPHA- 1 ANTITRYPSIN DEFICIENCY SCREENING [facility] Start: 09-01-1995 PAP TESTING PAP TESTING [facility] Start: 09-01-1995 Screening for malign ant neoplasm of cervix [facility] Start: 1993 DTaP/Tdap/Td vaccine (1 - Tdap) DTaP/Tdap/Td vaccine (1 - Tdap) [employer] Start: 1993 Hepatitis B Vaccine (1 of 3 - 19+ 3-dose series) Hepatitis B Vaccine (1 of 3 - 19+ 3-dose series) [facility] Start: 1993 Urine microalbumin profile [facility] Start: 1993 Urine screening for protein Diabetes: Urine Protein Screening [facility] Start: 1992 ANNUAL PCP TEAM INSTRUCTIONAL INTERVENTIONIST SILVANO DISEASE VISIT ANNUAL PCP TEAM CHRONIC DISEASE VISIT [facility] Start: 1992 Anxiety Screening Anxiety Screening [facility] Start: 1992 Depression Screening Depression Scre ening [facility] Start: 1992 HEPATITIS C SCREENING HEPATITIS C SC REENING [facility] Start: 1992 Hepatitis C screening C [facility] Start: 1992 HIV SCREENING HIV SCREENING [facility] Start: 1992 HIV screening HIV Screening [facility] Start: 1992 SPIROMETRY SPIROMETRY [facility] Start: 1989 HIV screening HIV screen [facility] Start: 1986 Depression Screen Depression Screen [facility] Start: 1984 Glaucoma screening Diabetes: R etinopathy Screening [facility] Start: 1984 Lipid panel Lipids [facility] Start: 1980 PNEUMOCOCCAL (1 - PCV) PNEUMOCOCCAL (1 - PCV) [facility] Start: 1980 Pneumococcal vaccination Pneum ococcal Vaccine (1 - PCV) [facility] Start: 1974 Hemoglobin A1c measurement Diabetes: Hemoglobin A1C [facility] Start: 1974 HEPATITIS B (1 of 3 - 3-dose series) HEPATITIS B (1 of 3 - 3-dose series) [facility] Start: 1974 Hepatitis B Vaccine (1 of 3 - 3-dose series) Hepatitis B Vaccine (1 of 3 - 3-dose series) [facility] Start: 1974 Screening for malign ant neoplasm of lung Lung Cancer Screening Shared Decision Making [facility] End: 10-08-2024 Njx dx/ther agt pvrt facet jt lmbr/sac 1 level INJ DX/THER AGNT PARAVERT FACET JOINT, LUMBAR/SAC, 1ST LEVEL Procedures Routine Lumbosacral spondylosis without myelopathy 1 Occurrences starting 10/08/2024 until 10/08/2024 [employer] Comment on above: 1 Occurrences starti ng 10/08/2024 until 10/08/2024 Patient Education [facility] Work Phone: Patient referral [facility] Work Phone: End: 09-16-2024 XR Cervical spine 4 or 5 Views [employer] Comment on above: 1 Occurrences starti ng 09/16/2024 until 09/16/2024 End: 09-16-2024 XR Lumbar spine 4 Views [employer] Comment on above: 1 Occurrences starti ng 09/16/2024 until 09/16/2024 End: 09-16-2024 XR Shoulder - left 2 Views [employer] Comment on above: 1 Occurrences starti ng 09/16/2024 until 09/16/2024 [facility] Immunizations Immunization Date Immunization Notes Care Provider Zenaida tang 03-04-2023 Pneumococcal Conjuga te PCV 20 Dc Jackson [facility] Work Phone: [facility] 03-04-2023 SARS-COV-2 (COVID-19 ) vaccine, mRNA, spike protein, LNP, PF, 50 mcg/0.5 mL Dc Jackson [facility] Work Phone: [facility] 03-04-2023 Seasonal, quadrivale nt, recombinant, injectable influenza vaccine, preservative free Dckhalida Jackson [facility] Work Phone: [facility] 03-04-2023 influenza virus vaccine, unspecified formulation Dckhalida Jackson [facility] Work Phone: [facility] 11-29-2020 COVID-19 mRNA-1273 (Neal) MD Josh Ochoa Work Phone: [facility] 11-01-2020 COVID-19 mRNA-1273 (Nael) MD Josh Ochoa Work Phone: [facility] Payers Date Payer Category Payer Self-pay [id number] 2023 Unknown [id number] 2023 Medicaid [id number] 2023 Medicare (Managed Care) [place] [id number] .[id number] 2023 Medicare [id number] 1.2.840.505092.1.13.239.2 .[id number] 2022 Private Health Insurance 1.2 .[id number] .[id number] 2022 Unknown [id number] 2019 Medicare [id number]. 1.13.159.2 .[id number] 2018 Unknown MMO MMO [employer]PER[employer]US [id number] 2018-Present [phone] [address] [place] [address] PPO [id number] .[id number] 2016 Government (not [facility] care or Medicaid) [facility] Address: [address] [place] [address] [id number] .[id number] 2016 Unknown [id number]. 1.13.159.2 .7.3.902793.315 2016 Unknown [id number] 1974 Unknown [id number] 2.16.840.1.391018.3.579.2 .647 1974 Unknown [id number] 2.16.840.1.025834.3.579.2 .647 1974 Unknown [id number] 2.16.840.1.255315.3.579.2 .647 1974 Unknown [id number] 2.16.840.1.202410.3.579.2 .647 1974 Unknown [id number] 2.16.840.1.927508.3.579.2 .593 1974 Unknown [id number] 2.16.840.1.394510.3.579.2 .593 1974 Unknown [id number] 2.16.840.1.287768.3.579.2 .593 1974 Unknown [id number] 2.16.840.1.750526.3.579.2 .593 1974 Unknown [id number] 2.16.840.1.640931.3.579.2 .593 1974 Unknown [id number] 2.16840.1.965546.3.579.2 .593 1974 Unknown [id number] 2.16.840.1.387572.3.579.2 .593 1974 Unknown [id number] 2.16840.1.717279.3.579.2 .593 1974 Unknown [id number] 2.16.840.1.895268.3.579.2 .593 1974 Unknown [id number] 2.16840.1.567010.3.579.2 .182 1974 Unknown [id number] 2.16.840.1.911838.3.579.2 .182 1974 Unknown [id number] 2.16.840.1.002611.3.579.2 .182 1974 Unknown [id number] 2.16.840.1.093889.3.579.2 .182 1974 Unknown [id number] 2.16.840.1.997044.3.579.2 .1259 1974 Unknown [id number] 2.16.840.1.148043.3.579.2 .1258 1974 Unknown [id number] 2.16.840.1.867550.3.579.2 .1258 1974 Unknown [id number] 2.16.840.1.509225.3.579.2 .1258 1974 Unknown [id number] 2.16840.1.844653.3.579.2 .1258 1974 Unknown [id number] 2.16.840.1.547982.3.579.2 .1258 1974 Unknown [id number] 2.840.1.093025.3.579.2 .1258 1974 Unknown [id number] 2.840.1.815164.3.579.2 .1258 1974 Unknown [id number] 2.840.1.217227.3.579.2 .1258 1974 Unknown [id number] 2.840.1.567065.3.579.2 .1258 1974 Unknown [id number] 2.840.1.608410.3.579.2 .1258 1974 Unknown [id number] 2.840.1.805033.3.579.2 .1258 1974 Unknown [id number] 2.840.1.429430.3.579.2 .1258 1974 Unknown [id number] 2.840.1.493258.3.579.2 .1258 1974 Unknown [id number] 2.840.1.735292.3.579.2 .1258 1974 Unknown [id number] 2.16840.1.701800.3.579.2 .1258 1974 Unknown [id number] 2.16840.1.833652.3.579.2 .1258 1974 Unknown [id number] 2.16840.1.522483.3.579.2 .1259 1974 Unknown [id number] 2.16.840.1.503516.3.579.2 .1259 1974 Unknown [id number] 2.16.840.1.182962.3.579.2 .718 1974 Unknown [id number] 2.16.840.1.632069.3.579.2 .718 1959 Medicare [id number] 2.16.840.1.092429.19 1959 Unknown [id number] 1959 Worker's Compensation [id number] Private Health Insurance [employer] [id number] Unknown MMO [id number] Unknown [id number] 2.16.840.1.255414.3.579.2 .531 Social History Date Type Detail Facility Start: 08-01-2016 End: 04-08-2024 Tobacco smoking status WAIS Smokes tobacco daily [facility] Start: 08-01-2016 End: 10-10-2022 Cigarettes smoked current (pack per day) - Reported 1 [facility] Start: 08-01-2016 End: 04-08-2024 Tobacco use and exposure User of smokeless tobacco [facility] Start: 09-07-2021 End: 12-04-2024 Alcohol intake Current non-drinker of alcohol (finding) [facility] Start: 1975 Sex Assigned At Not on file [facility] Start: 08-28-2021 End: 01-09-2022 Exposure to SARS-CoV-2 (event) Not sure [facility] Start: 10-10-2022 End: 01-02-2023 Sex Assigned At [facility] Start: 07-28-1999 End: 07-27-2022 History of tobacco use Cigarette Smoker [facility] Work Phone: Start: 07-28-1999 End: 07-27-2022 Tobacco smoking status NHIS Smoker (finding) [facility] Start: 1975 Sex Assigned At Female F [facility] Start: 08-27-2022 End: 11-20-2023 Tobacco smoking status WAIS Ex-smoker (finding) [facility] Start: 04-13-2012 Adult Depression Screening Assessment 4 [facility] Start: 06-17-2023 End: 11-20-2023 Tobacco use and exposure Smokeless tobacco non-user [facility] Start: 06-17-2023 End: 12-23-2024 Alcohol intake Lifetime non-drinker (finding) [facility] Healthcare Start: 05-14-2023 Alcohol Comment caffeine intak e: maybe 1 coffee or pop cups per day [facility] Start: 09-16-2024 [facility] Never smoked tobacco [facility] [email or web address] Start: 06-21-2012 Sex Female (finding) [facility] [employer] [facility] Procedure Code Equipment Code Equipment Origin al Text Equipment Identifier Dates [id number], [id number], [id number], [id number] Start: 10-09-2019 End: 06-17-2025 Comment on above: [...] into patients scanned docs and faxed to [facility] Pre-Access -[phone] [facility] 01-18-2025 Miscellaneous Notes Received completed form in person Uploaded form into patients scanned docs and faxed to [facility] Pre-Access -[phone] documented in this encounter [facility] 01-12-2025 Note ND Electrophysiology Consult Note ND Cardiology - [facility] Reason for visit: Afib HPI: [...] Use: Not At Risk (05/18/2019) Received from [employer] [facility]UDIT-[facility] Frequency of Alcohol Consumption: Never Average Number of Drinks: Not on file Frequency of Binge Drinking: Not on file Financial Resource Strain: Not on file Food Insecurity: No Food Insecurity (11/14/2022) Received from [employer] Hunger Screening Within the past 12 months [...] on file Intimate Partner Violence: Unknown (07/04/2023) ND Safety & Environment Fear of Current or Ex-Partner: Not on file Emotionally Abused: Not on file Physically Abused: Not on file Sexually Abused: Not on file Physically or Sexually Abused: Not on file Depression: At risk (08/10/2024) Received from [facility] PHQ-2 Patient Health Questionnaire-2 Score: 4 [...] obtuse marginal branch (more content not included)... [facility] 01-04-2025 Note REASON FOR VISIT: Jacquelyn Zeng [...] well. She was visiting her son in [facility] for the past month and was eating more carbs than usual. She's back home now and plans to resume her usual diet. Lately she's been using Novolog a few times daily, taking when BG is high >200 and will take about 15 units. No side effects reported with Mounjaro. She is using [employer] with smartphone DIABETES HISTORY: Diabetes Mellitus [Type [...] Diabetes education: [No] Seen by a certified endoscopy technician (CDE) within 12 months Meal plan: [No] Seen by a coach cleaner within 12 months [ ] Consistent carbohydrate [...] satiety [Yes] Feet numbness/pain/tingling [Yes] Patient seeing senior staff consultant/phlebotomist regularly [Yes] Patient seeing dentist regularly [No] Patient seeing emergency department nurse regularly REVIEW OF SYSTEMS Review of Systems [...] HbA1c: Lab Res (more content not included)... [facility] 12-23-2024 History of Present illness Narrative Images [...] under the care of Dr. Samano at [facility], who suggested scheduling another set of [...] Lyrica. This clinical note was created utilizing [employer] documentation system. All information has been thoroughly reviewed, corrected as necessary, and authenticated by the provider to ensure accuracy and completeness. On occasion, [employer] documentation system erroneously drops words or replaces [...] under the care of Dr. Samano at [facility], who suggested scheduling another set of [...] Lyrica. This clinical note was created utilizing [employer] documentation system. All information has been thoroughly reviewed, corrected as necessary, and authenticated by the provider to ensure accuracy and completeness. On occasion, [employer] documentation system erroneously drops words or replaces a spoken word with a similar sounding word. Please notify with any questions or concerns regarding this clinical note. documented in this encounter [facility] 12-04-2024 Note Spoke with patient a nd she would prefer to start warfarin instead of paying for Eliquis or Xarelto. Referral faxed to the management clinic here at [facility] per patient request. [facility] 12-04-2024 Instructions Kinga Mendes APRN.[employer] SUPER[employer] - 12/04/2024 9:16 AM EDT Images from the original note were not included. [facility] Frequently Asked Questions about Botox Treatment for [...] Botox to understand your coverage and any zds-gp-hyxigz costs. Botox injections are scheduled every 12-13 [...] If you haven t heard from a cardiac surgeon within 1-2 weeks, please call our office at [phone] (select option 1 for Botox schedulers). Feel free to contact us with any other questions or concerns about Botox: Wet Process [place] [phone] or Once my appointment is scheduled, how [...] Botox to understand your coverage and any wuy-pw-xnajdp costs. Do I need a driver messenger? No; however, if it is the first [...] , or . documented in this encounter [facility] 12-04-2024 Note HNO ID: [id number] Author: KINGA MENDES APRN.MICHELLE Service: ? Author [...] for migraine Informed Consent Consent Obtained: Written [place] Protocol A moment to CARE was completed [...] collected. Written Consent Obtained: Written LOT #: [id number] Expiration Date: Month: Year: 2026 Injection Sites Left (Units) Left (Sites) Right (Units) Right (Sites) TOTAL (Units) Spindle Sander 5 1 5 1 10 Procerus Units: [...] Gabapentin (Neurontin) Oxcarb (more content not included)... [facility] 12-04-2024 Procedure note Images from [...] for migraine Informed Consent Consent Obtained: Written [place] Protocol A moment to CARE was completed [...] collected. Written Consent Obtained: Written LOT #: [id number] Expiration Date: Month: Year: 2026 Injection Sites Left (Units) Left (Sites) Right (Units) Right (Sites) TOTAL (Units) Spindle Sander 5 1 5 1 10 Procerus Units: [...] the Counter Medications Acetaminophen (Tylenol) Kinga Mendes APRN.TRANSFORMER SHOP SUPERVISOR [facility] 12-04-2024 Procedure note Images from the original [...] for migraine Informed Consent Consent Obtained: Written [place] Protocol A moment to CARE was completed [...] collected. Written Consent Obtained: Written LOT #: [id number] Expiration Date: Month: 10 Year: 2026 Injection Sites Left (Units) Left (Sites) Right (Units) Right (Sites) TOTAL (Units) Spindle Sander 5 1 5 1 10 Procerus Units: [...] the Counter Medications Acetaminophen (Tylenol) Kinga Mendes APRN.TRANSFORMER SHOP SUPERVISOR documented in this encounter [facility] 10-22-2024 History of Present illness Narrative Images [...] extensive degeneration. She has not visited the [facility] recently and does not require any medication [...] in all four extremities, including at least oven heater, finger abductors, biceps, triceps, deltoid, toe flexors [...] extensive degeneration. She has not visited the [facility] recently and does not require any medication [...] extensive degeneration. She has not visited the [facility] recently and does not require any medication [...] MD This clinical note was created utilizing [employer] documentation system. All information has been thoroughly reviewed, corrected as necessary, and authenticated by the provider to ensure accuracy and completeness. On occasion, JOEL ambient documentation system erroneously drops words or replaces a spoken word with a similar sounding word. Please notify with any questions or concerns regarding this clinical note. documented in this encounter [facility] 10-12-2024 History of Present illness Narrative [...] 750 MG tablet documented in this encounter [facility] 09-22-2024 Note REASON FOR VISIT: Jacquelyn [...] Diabetes education: [No] Seen by a certified endoscopy technician (CDE) within 12 months Meal plan: [No] Seen by a coach cleaner within 12 months [ ] Consistent carbohydrate [...] satiety [Yes] Feet numbness/pain/tingling [Yes] Patient seeing senior staff consultant/phlebotomist regularly [Yes] Patient seeing dentist regularly [No] Patient seeing emergency department nurse regularly REVIEW OF SYSTEMS Review of Systems [...] are appropriate. LABS (more content not included)... [facility] 09-11-2024 Instructions Kinga Mendes APRN.[facility] - 09/11/2024 11:44 AM EDT Images from the original note were not included. [facility] Frequently Asked Questions about Botox Treatment for [...] Botox to understand your coverage and any wxn-gn-toyyfw costs. Botox injections are scheduled every 12-13 [...] If you haven t heard from a cardiac surgeon within 1-2 weeks, please call our office at [phone] (select option 1 for Botox schedulers). Feel free to contact us with any other questions or concerns about Botox: Wet Process [place] [phone] or [email or web address] Once my appointment is scheduled, how [...] Botox to understand your coverage and any ccw-bi-essarz costs. Do I need a driver messenger? No; however, if it is the first [...] , or . documented in this encounter [facility] 09-11-2024 Note HNO ID: [id number] Author: KINGA MENDES APRN.CNP Service: ? Author [...] for migraine Informed Consent Consent Obtained: Written [place] Protocol A moment to CARE was completed [...] collected. Written Consent Obtained: Written LOT #: [id number] Expiration Date: Month: 4 Year: 2026 Injection Sites Left (Units) Left (Sites) Right (Units) Right (Sites) TOTAL (Units) Spindle Sander 5 1 5 1 10 Procerus Units: [...] XL, Qudexy) Anti-D (more content not included)... [facility] 09-11-2024 Procedure note Images from [...] for migraine Informed Consent Consent Obtained: Written [place] Protocol A moment to CARE was completed [...] collected. Written Consent Obtained: Written LOT #: [id number] Expiration Date: Month: 4 Year: 2026 Injection Sites Left (Units) Left (Sites) Right (Units) Right (Sites) TOTAL (Units) Spindle Sander 5 1 5 1 10 Procerus Units: [...] Counter Medications Acetaminophen (Tylenol) Kinga Mendes APRN.CNP [facility] 09-11-2024 Procedure note Images from the original [...] for migraine Informed Consent Consent Obtained: Written [place] Protocol A moment to CARE was completed [...] collected. Written Consent Obtained: Written LOT #: [id number] Expiration Date: Month: 4 Year: 2026 Injection Sites Left (Units) Left (Sites) Right (Units) Right (Sites) TOTAL (Units) Spindle Sander 5 1 5 1 10 Procerus Units: [...] the Counter Medications Acetaminophen (Tylenol) Kinga Mendes APRN.TRANSFORMER SHOP SUPERVISOR documented in this encounter [facility] 09-10-2024 History of Present illness Narrative Images [...] (Autolet) lancing device Use as instructed Lancets (Asurint Plus [id number]) misc USE DIRECTED Lantus SoloStar 100 UNIT/ML [...] 75 mg, Oral, As needed nystatin (Mycostatin) 021882 UNIT/GM powder APPLY 1 application TO THE [...] At standard risk for fall CAD in [place] artery (CMS/HCC) Cervical spondylosis Chronic constipation Chronic [...] reflexes: Pia's absent. Ankle clonus absent. Coordination Qateua-xv-fzba, rapid alternating movements and bjte-lc-rypm normal bilaterally without dysmetria. Gait Normal casual, [...] (Autolet) lancing device Use as instructed Lancets (Hopscotchuch Delica Plus [id number]) misc USE DIRECTED Lantus SoloStar 100 UNIT/ML [...] 75 mg, Oral, As needed nystatin (Mycostatin) 595096 UNIT/GM powder APPLY 1 application TO THE [...] Olu Arce MD documented in this encounter [facility] 08-12-2024 Note [place] Cardiology - [facility] Subjective Jacquelyn Zeng is a [...] mellitus (CMS/HCC) ??? Coronary artery disease involving [place] coronary artery of [place] heart without angina pectoris ??? S/P drug [...] On 07/31/2024 she was evaluated in the [facility] emergency room because of dizziness and hypoxia and was found to be dehydrated and was treated with IV fluids. She had tachycardia with improved heart rate upon discharge. Today she reports (more content not included)... [facility] 08-10-2024 History of Present illness Narrative [...] were not included. Subjective Patient ID: Jacquelyn eZng is a 48 y.o. female who presents [...] hyperglycemia, with long-term current use of insulin (CMS/[facility]) Relevant Orders Microalbumin / creatinine, urine ratio Hemoglobin A1c Dyslipidemia ([facility]) Relevant Orders Lipid panel Medicare annual wellness [...] TSH T4, free documented in this encounter [facility] 06-29-2024 Telephone encounter Note Botox referral sent to pharmacy Boris CHILDRESS, RN RN Clinical Manager [facility] 06-29-2024 Miscellaneous Notes Botox referral sent to pharmacy Boris CHILDRESS, RN RN Clinical Manager [facility] documented in this encounter [facility] 06-25-2024 Note Received a message f rom [employer] stating there is an issue with primary insurance that is on file and they have not been able to contact patient. She said Our records indicate that the patient's primary insurance is [employer], which terminated on May 12, 2024. To ensure accurate coordination of benefits, the patient should contact [employer] to inform them of the change. Please contact patient to inform her of this so she can continue receiving her Dexcom G7 supply [facility] 06-23-2024 Note REASON FOR VISIT: Jacquelyn [...] Diabetes education: [No] Seen by a certified endoscopy technician (CDE) within 12 months Meal plan: [No] Seen by a coach cleaner within 12 months [ ] Consistent carbohydrate [...] >200. NO recently hypoglycemia events reported. CGM: [DEXPlayPhone G7 (not wearing currently due to insurance not covering) Diabetes-related symptoms and information: [No] Hypoglycemia [no] Increasing urination [no] Increasing drinking/thirst [yes] Weight loss [No] Recent changes in vision [No] Chest pain/pressure [no] Nausea [no] Vomiting [] Early satiety [Yes] Feet numbness/pain/tingling [Yes] Patient seeing senior staff consultant/phlebotomist regularly [Yes] Patient seeing dentist regularly [No] Patient seeing emergency department nurse regularly REVIEW OF SYSTEMS Review of Systems [...] distress currently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 diabetes mellitus [...] hyperglycemia, with long-term current use of insulin ([facility])- Primary Benign essential HTN (CMS/HCC) ADD (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 deficit disorder without mention of hyperactivity MDD (major depressive disorder), recurrent episode, mild (HCC) ([facility]/HCC) Generalized anxiety disorder ([facility]/HCC) Generalized anxiety disorder Mild intermittent asthma without complication (CMS/[facility]) Complex regional pain syndrome type 1, affecting unspecified site Mixed hyperlipidemia (CMS/[facility]) Mixed hyperlipidemia penitentiary (current) use of insulin (Z79.4) ADD (attention deficit disorder) without hyperactivity- Primary Attention deficit disorder without mention of hyperactivity Type 2 diabetes mellitus with hyperglycemia, with long-term current use of insulin (CMS/HCC) Benign essential HTN (CMS/HCC) MDD (major depressive disorder), recurrent episode, mild (HCC) (CMS/HCC) Generalized anxiety disorder ([facility]/HCC) Generalized anxiety disorder Type 2 diabetes mellitus with hyperglycemia, with long-term current use of insulin ([facility]/HCC)- Primary Benign essential HTN (CMS/HCC) ADD (attention [...] single episode, severe without psychotic features (HCC) ([facility]) Generalized anxiety disorder ([facility]/HCC) Generalized anxiety disorder Panic disorder ([facility]/HCC) Panic disorder without agoraphobia Insomnia, unspecified type documented in this encounter [facility]* Diagnosis Type 2 diabetes mellitus with hyperglycemia, with long-term current use of insulin ([facility])- Primary Benign essential HTN (CMS/HCC) ADD (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 deficit disorder without mention of hyperactivity MDD (major depressive disorder), recurrent episode, mild (HCC) ([facility]) Generalized anxiety disorder ([facility] Generalized anxiety disorder Mild intermittent asthma without complication ([facility]) Complex regional pain syndrome type 1, affecting unspecified site Mixed hyperlipidemia (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) Benign essential HTN (CMS/HCC) MDD (major depressive disorder), recurrent episode, mild (HCC) ([facility]/HCC) Generalized anxiety disorder ([facility]) Generalized anxiety disorder Type 2 diabetes mellitus with hyperglycemia, with long-term current use of insulin ([facility])- Primary Benign essential HTN (CMS/HCC) ADD (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 deficit disorder without mention of hyperactivity MDD (major depressive disorder), recurrent episode, mild (HCC) ([facility]) Generalized anxiety disorder ([facility]) Generalized anxiety disorder Type 2 diabetes mellitus with polyneuropathy ([facility]) Type II or unspecified type diabetes mellitus with neurological manifestations, not stated as uncontrolled Dysuria Breast cancer screening by mammogram Generalized anxiety disorder ([facility]) Generalized anxiety disorder ADD (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 deficit disorder without mention of hyperactivity documented [facility] encounter [facility]* Diagnosis Type 2 diabetes mellitus with hyperglycemia, with long-term current use of insulin ([facility])- Primary Benign essential HTN (CMS/HCC) ADD (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 deficit disorder without mention of hyperactivity MDD (major depressive disorder), recurrent episode, mild (HCC) (CMS/HCC) Generalized anxiety disorder (CMS/HCC) Generalized anxiety disorder Mild intermittent asthma without complication (CMS/HCC) Complex regional pain syndrome type 1, affecting unspecified site Mixed hyperlipidemia (CMS/HCC) Mixed hyperlipidemia penitentiary (current) use of insulin (Z79.4) ADD (attention deficit disorder) without hyperactivity- Primary Attention deficit disorder without mention of hyperactivity Type 2 diabetes mellitus with hyperglycemia, with long-term current use of insulin ([facility]/HCC) Benign essential HTN (CMS/HCC) MDD (major depressive disorder), recurrent episode, mild (HCC) ([facility]/HCC) Generalized anxiety disorder ([facility]/HCC) Generalized anxiety disorder Type 2 diabetes mellitus with hyperglycemia, with long-term current use of insulin ([facility]/HCC)- Primary Benign essential HTN (CMS/HCC) ADD (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 deficit disorder without mention of hyperactivity MDD (major depressive disorder), recurrent episode, mild (HCC) ([facility]/HCC) Generalized anxiety disorder ([facility]) Generalized anxiety disorder Type 2 diabetes mellitus with polyneuropathy ([facility]) Type II or unspecified type diabetes mellitus with neurological manifestations, not stated as uncontrolled Dysuria Breast cancer screening by mammogram Trochanteric bursitis of both hips- Primary documented in this encounter [facility]* Diagnosis Type 2 diabetes mellitus with hyperglycemia, with long-term current use of insulin ([facility])- Primary Benign essential HTN (CMS/HCC) ADD (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 deficit disorder without mention of hyperactivity MDD (major depressive disorder), recurrent episode, mild (HCC) ([facility]/HCC) Generalized anxiety disorder ([facility]/HCC) Generalized anxiety disorder Mild intermittent asthma without complication ([facility]/HCC) Complex regional pain syndrome type 1, affecting unspecified site Mixed hyperlipidemia (CMS/HCC) Mixed hyperlipidemia penitentiary (current) use of insulin (Z79.4) ADD (attention deficit disorder) without hyperactivity- Primary Attention deficit disorder without mention of hyperactivity Type 2 diabetes mellitus with hyperglycemia, with long-term current use of insulin ([facility]/HCC) Benign essential HTN (CMS/HCC) MDD (major depressive disorder), recurrent episode, mild (HCC) ([facility]/HCC) Generalized anxiety disorder ([facility]/HCC) Generalized anxiety disorder Type 2 diabetes mellitus with hyperglycemia, with long-term current use of insulin (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- Primary Chronic migraine without aura, with intractable migraine, so stated, without mention of status migrainosus Chronic daily headache Headache Status migrainosus Variants of migraine, not elsewhere classified, without mention of intractable migraine without mention of status migrainosus [facility] Status migrainosus- Primary Variants [...] Generalized anxiety disorder documented in this encounter [facility]* Diagnosis Major depressive disorder, single episode, severe without psychotic features (HCC) (CMS/HCC) Generalized anxiety disorder (CMS/HCC) Generalized anxiety disorder Panic disorder (CMS/HCC) Panic disorder without agoraphobia documented in this encounter [facility]* Diagnosis Generalized anxiety disorder ([facility]/HCC) Generalized anxiety disorder documented in this encounter [facility]* Diagnosis Type 2 diabetes mellitus with hyperglycemia, with long-term current use of insulin ([facility])- Primary Benign essential HTN (CMS/HCC) ADD (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 deficit disorder without mention of hyperactivity MDD (major depressive disorder), recurrent episode, mild (HCC) ([facility]/HCC) Generalized anxiety disorder ([facility]/HCC) Generalized anxiety disorder Mild intermittent asthma without complication (CMS/HCC) Complex regional pain syndrome type 1, affecting unspecified site Mixed hyperlipidemia (CMS/HCC) Mixed hyperlipidemia penitentiary (current) use of insulin (Z79.4) ADD (attention deficit disorder) without hyperactivity- Primary Attention deficit disorder without mention of hyperactivity Type 2 diabetes mellitus with hyperglycemia, with long-term current use of insulin ([facility]/HCC) Benign essential HTN (CMS/HCC) MDD (major depressive disorder), recurrent episode, mild (HCC) ([facility]/HCC) Generalized anxiety disorder ([facility]/HCC) Generalized anxiety disorder Type 2 diabetes mellitus with hyperglycemia, with long-term current use of insulin ([facility]/HCC)- Primary Benign essential HTN (CMS/HCC) ADD (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 deficit disorder without mention of hyperactivity MDD (major depressive disorder), recurrent episode, mild (HCC) ([facility]/HCC) Generalized anxiety disorder ([facility]/HCC) Generalized anxiety disorder Type 2 diabetes mellitus with polyneuropathy ([facility]) Type II or unspecified type diabetes mellitus with neurological manifestations, not stated as uncontrolled Dysuria Breast cancer screening by mammogram Type 2 diabetes mellitus with hyperglycemia, with long-term current use of insulin ([facility])- Primary Benign essential HTN (CMS/HCC) ADD (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 deficit disorder without mention of hyperactivity MDD (major depressive disorder), recurrent episode, mild (HCC) ([facility]/HCC) Generalized anxiety disorder ([facility]/HCC) Generalized anxiety disorder Type 2 diabetes mellitus with polyneuropathy ([facility]) Type II or unspecified type diabetes mellitus with neurological manifestations, not stated as uncontrolled Other chronic pancreatitis ([facility]) Acute non-recurrent pansinusitis documented in this encounter [facility]* Diagnosis Type 2 diabetes mellitus with hyperglycemia, with long-term current use of insulin ([facility])- Primary Benign essential HTN (CMS/HCC) ADD (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 deficit disorder without mention of hyperactivity MDD (major depressive disorder), recurrent episode, mild (HCC) ([facility]/HCC) Generalized anxiety disorder ([facility]/HCC) Generalized anxiety disorder Mild intermittent asthma without complication ([facility]/HCC) Complex regional pain syndrome type 1, affecting unspecified site Mixed hyperlipidemia (CMS/HCC) Mixed hyperlipidemia penitentiary (current) use of insulin (Z79.4) ADD (attention deficit disorder) without hyperactivity- Primary Attention deficit disorder without mention of hyperactivity Type 2 diabetes mellitus with hyperglycemia, with long-term current use of insulin ([facility]/HCC) Benign essential HTN ([facility]/HCC) MDD (major depressive disorder), recurrent episode, mild (HCC) ([facility]) Generalized anxiety disorder ([facility]) Generalized anxiety disorder Type 2 diabetes mellitus with hyperglycemia, with long-term current use of insulin ([facility])- Primary Benign essential HTN ([facility]/HCC) ADD (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 deficit disorder without mention of hyperactivity MDD (major depressive disorder), recurrent episode, mild (HCC) ([facility]) Generalized anxiety disorder ([facility]) Generalized anxiety disorder Type 2 diabetes mellitus with polyneuropathy ([facility]) Type II or unspecified type diabetes mellitus with neurological manifestations, not stated as uncontrolled Dysuria Breast cancer screening by mammogram Type 2 diabetes mellitus with hyperglycemia, with long-term current use of insulin ([facility])- Primary Benign essential HTN ([facility]/HCC) ADD (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 deficit disorder without mention of hyperactivity MDD (major depressive disorder), recurrent episode, mild (HCC) ([facility]) Generalized anxiety disorder ([facility]) Generalized anxiety disorder Type 2 diabetes mellitus with polyneuropathy ([facility]) Type II or unspecified type diabetes mellitus with neurological manifestations, not stated as uncontrolled Other chronic pancreatitis ([facility]) Acute non-recurrent pansinusitis Major depressive disorder, single episode, severe without psychotic features (HCC) ([facility]) Generalized anxiety disorder ([facility]) Generalized anxiety disorder Panic disorder ([facility]) Panic disorder without agoraphobia documented in this encounter [facility]* Diagnosis Type 2 diabetes mellitus with hyperglycemia, with long-term current use of insulin (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)- Primary Benign essential HTN (CMS/HCC) ADD (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 deficit disorder without mention of hyperactivity MDD (major depressive disorder), recurrent episode, mild (HCC) (CMS/HCC) Generalized anxiety disorder (CMS/HCC) Generalized anxiety disorder Type 2 diabetes mellitus with polyneuropathy (CMS/[facility]) Type II or unspecified type diabetes mellitus with neurological manifestations, not stated as uncontrolled Dysuria Breast cancer screening by mammogram Type 2 diabetes mellitus with hyperglycemia, with long-term current use of insulin ([facility])- Primary Benign essential HTN (CMS/HCC) ADD (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 deficit disorder without mention of hyperactivity MDD (major depressive disorder), recurrent episode, mild (HCC) (CMS/HCC) Generalized anxiety disorder ([facility]/HCC) Generalized anxiety disorder Type 2 diabetes mellitus with polyneuropathy ([facility]) Type II or unspecified type diabetes mellitus with neurological manifestations, not stated as uncontrolled Other chronic pancreatitis ([facility]/HCC) Acute non-recurrent pansinusitis Lumbar spondylosis Lumbosacral spondylosis without myelopathy Cervical spondylosis Cervical spondylosis without myelopathy Other nerve root and plexus disorders documented in this encounter [facility]* Diagnosis Type 2 diabetes mellitus with hyperglycemia, with long-term current use of insulin ([facility]/HCC)- Primary Benign essential HTN (CMS/HCC) ADD (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 deficit disorder without mention of hyperactivity MDD (major depressive disorder), recurrent episode, mild (HCC) (CMS/HCC) Generalized anxiety disorder (CMS/HCC) Generalized anxiety disorder Mild intermittent asthma without complication (CMS/HCC) Complex regional pain syndrome type 1, affecting unspecified site Mixed hyperlipidemia (CMS/HCC) Mixed hyperlipidemia penitentiary (current) use of insulin (Z79.4) ADD (attention deficit disorder) without hyperactivity- Primary Attention deficit disorder without mention of hyperactivity Type 2 diabetes mellitus with hyperglycemia, with long-term current use of insulin (CMS/HCC) Benign essential HTN (CMS/HCC) MDD (major depressive disorder), recurrent episode, mild (HCC) (CMS/HCC) Generalized anxiety disorder ([facility]/HCC) Generalized anxiety disorder Type 2 diabetes mellitus with hyperglycemia, with long-term current use of insulin ([facility]/HCC)- Primary Benign essential HTN (CMS/HCC) ADD (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 deficit disorder without mention of hyperactivity MDD (major depressive disorder), recurrent episode, mild (HCC) (CMS/HCC) Generalized anxiety disorder ([facility]/HCC) Generalized anxiety disorder Type 2 diabetes mellitus with polyneuropathy ([facility]) Type II or unspecified type diabetes mellitus with neurological manifestations, not stated as uncontrolled Dysuria Breast cancer screening by mammogram Type 2 diabetes mellitus with hyperglycemia, with long-term current use of insulin ([facility]/HCC)- Primary Benign essential HTN (CMS/HCC) ADD (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 deficit disorder without mention of hyperactivity MDD (major depressive disorder), recurrent episode, mild (HCC) ([facility]/HCC) Generalized anxiety disorder ([facility]/HCC) Generalized anxiety disorder Type 2 diabetes mellitus with polyneuropathy ([facility]) Type II or unspecified type diabetes mellitus with neurological manifestations, not stated as uncontrolled Other chronic pancreatitis ([facility]) Acute non-recurrent pansinusitis Generalized anxiety disorder ([facility]/HCC) Generalized anxiety disorder Hyperlipidemia, unspecified ([facility]/HCC) documented in this encounter [facility] HealthcareEvaluation [facility]* Diagnosis Type 2 diabetes mellitus with hyperglycemia, with long-term current use of insulin ([facility]/HCC)- Primary Benign essential HTN (CMS/HCC) ADD (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 deficit disorder without mention of hyperactivity MDD (major depressive disorder), recurrent episode, mild (HCC) ([facility]/HCC) Generalized anxiety disorder (CMS/HCC) Generalized anxiety disorder Mild intermittent asthma without complication (CMS/HCC) Complex regional pain syndrome type 1, affecting unspecified site Mixed hyperlipidemia (CMS/HCC) Mixed hyperlipidemia 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 insulin (Z79.4) ADD (attention [...] disorder (CMS/HCC) Generalized anxiety disorder Panic disorder ([facility]/HCC) Panic disorder without agoraphobia documented in this encounter [facility] HealthcareEvaluation note* Diagnosis Type 2 diabetes [...] unspecified site Mixed hyperlipidemia (CMS/HCC) Mixed hyperlipidemia penitentiary (current) use of insulin (Z79.4) ADD (attention deficit disorder) without hyperactivity- Primary Attention deficit disorder without mention of hyperactivity Type 2 diabetes mellitus with hyperglycemia, with long-term current use of insulin ([facility]/HCC) Benign essential HTN ([facility]/HCC) MDD (major depressive disorder), recurrent episode, mild (HCC) ([facility]/HCC) Generalized anxiety disorder ([facility]) Generalized anxiety disorder Type 2 diabetes mellitus with hyperglycemia, with long-term current use of insulin ([facility])- Primary Benign essential HTN ([facility]/HCC) ADD (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 deficit disorder without mention of hyperactivity MDD (major depressive disorder), recurrent episode, mild (HCC) ([facility]/HCC) Generalized anxiety disorder ([facility]/HCC) Generalized anxiety disorder Type 2 diabetes mellitus with polyneuropathy ([facility]) Type II or unspecified type diabetes mellitus with neurological manifestations, not stated as uncontrolled Dysuria Breast cancer screening by mammogram Type 2 diabetes mellitus with hyperglycemia, with long-term current use of insulin ([facility])- Primary Benign essential HTN ([facility]/HCC) ADD (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 deficit disorder without mention of hyperactivity MDD (major depressive disorder), recurrent episode, mild (HCC) ([facility]) Generalized anxiety disorder ([facility]) Generalized anxiety disorder Type 2 diabetes mellitus with polyneuropathy ([facility]) Type II or unspecified type diabetes mellitus with neurological manifestations, not stated as uncontrolled Other chronic pancreatitis Acute non-recurrent pansinusitis Medicare annual wellness visit, subsequent- Primary Type 2 diabetes mellitus with hyperglycemia, with long-term current use of insulin ([facility]) Benign essential HTN ([facility]/HCC) Dyslipidemia ([facility]) Other and unspecified hyperlipidemia Encounter for long-term (current) use of medications Encounter for long-term (current) use of other medications Abnormal TSH Other chronic pancreatitis documented in this encounter [facility] HealthcareEvaluation note* Diagnosis Type 2 diabetes mellitus with hyperglycemia, with long-term current use of insulin ([facility])- Primary Benign essential HTN ([facility]/HCC) ADD (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 deficit disorder without mention of hyperactivity MDD (major depressive disorder), recurrent episode, mild (HCC) ([facility]) Generalized anxiety disorder ([facility]) Generalized anxiety disorder Mild intermittent asthma without complication ([facility]) Complex regional pain syndrome type 1, affecting unspecified site Mixed hyperlipidemia ([facility]) Mixed hyperlipidemia penitentiary (current) use of insulin (Z79.4) ADD (attention deficit disorder) without hyperactivity- Primary Attention deficit disorder without mention of hyperactivity Type 2 diabetes mellitus with hyperglycemia, with long-term current use of insulin ([facility]/HCC) Benign essential HTN ([facility]/HCC) MDD (major depressive disorder), recurrent episode, mild (HCC) ([facility]/HCC) Generalized anxiety disorder ([facility]/HCC) Generalized anxiety disorder Type 2 diabetes mellitus with hyperglycemia, with long-term current use of insulin ([facility])- Primary Benign essential HTN ([facility]/HCC) ADD (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 deficit disorder without mention of hyperactivity MDD (major depressive disorder), recurrent episode, mild (HCC) ([facility]/HCC) Generalized anxiety disorder ([facility]/HCC) Generalized anxiety disorder Type 2 diabetes mellitus with polyneuropathy ([facility]) Type II or unspecified type diabetes mellitus with neurological manifestations, not stated as uncontrolled Dysuria Breast cancer screening by mammogram Type 2 diabetes mellitus with hyperglycemia, with long-term current use of insulin ([facility])- Primary Benign essential HTN ([facility]/HCC) ADD (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 deficit disorder without mention of hyperactivity MDD (major depressive disorder), recurrent episode, mild (HCC) ([facility]) Generalized anxiety disorder ([facility]) Generalized anxiety disorder Type 2 diabetes mellitus with polyneuropathy ([facility]) Type II or unspecified type diabetes mellitus with neurological manifestations, not stated as uncontrolled Other chronic pancreatitis Acute non-recurrent pansinusitis Medicare annual wellness visit, subsequent- Primary Type 2 diabetes mellitus with hyperglycemia, with long-term current use of insulin ([facility]) Benign essential HTN ([facility]/HCC) Dyslipidemia ([facility]) Other and unspecified hyperlipidemia Encounter for long-term (current) use of medications Encounter for long-term (current) use of other medications Abnormal TSH Other chronic pancreatitis Generalized anxiety disorder ([facility]/HCC) Generalized anxiety disorder documented in this encounter [facility] HealthcareEvaluation note* Diagnosis Type 2 diabetes mellitus with hyperglycemia, with long-term current use of insulin ([facility])- Primary Benign essential HTN ([facility]/HCC) ADD (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 deficit disorder without mention of hyperactivity MDD (major depressive disorder), recurrent episode, mild (HCC) ([facility]) Generalized anxiety disorder ([facility]) Generalized anxiety disorder Mild intermittent asthma without complication ([facility]) Complex regional pain syndrome type 1, affecting unspecified site Mixed hyperlipidemia ([facility]/HCC) Mixed hyperlipidemia penitentiary (current) use of insulin (Z79.4) ADD (attention [...] [facility] Diagnosis Intractable chronic migraine without aura and without status migrainosus- Primary Chronic migraine without aura, with intractable migraine, so stated, without mention of status migrainosus Chronic daily headache [facility] Diagnosis Type 2 diabetes mellitus with hyperglycemia, with long-term current use of insulin (CMS/HCC)- Primary Benign essential HTN (CMS/HCC) ADD (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 deficit disorder without mention of hyperactivity MDD (major depressive disorder), recurrent episode, mild (HCC) ([facility]/HCC) Generalized anxiety disorder ([facility]/HCC) Generalized anxiety disorder Mild intermittent asthma without complication (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) Generalized anxiety disorder ([facility]) Generalized anxiety disorder Type 2 diabetes mellitus with hyperglycemia, with long-term current use of insulin ([facility])- Primary Benign essential HTN (CMS/HCC) ADD (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 deficit disorder without mention of hyperactivity MDD (major depressive disorder), recurrent episode, mild (HCC) ([facility]/HCC) Generalized anxiety disorder ([facility]/HCC) Generalized anxiety disorder Type 2 diabetes mellitus with polyneuropathy ([facility]) Type II or unspecified type diabetes mellitus with neurological manifestations, not stated as uncontrolled Dysuria Breast cancer screening by mammogram Type 2 diabetes mellitus with hyperglycemia, with long-term current use of insulin ([facility])- Primary Benign essential HTN (CMS/HCC) ADD (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 deficit disorder without mention of hyperactivity MDD (major depressive disorder), recurrent episode, mild (HCC) ([facility]) Generalized anxiety disorder ([facility]) Generalized anxiety disorder Type 2 diabetes mellitus with polyneuropathy ([facility]) Type II or unspecified type diabetes mellitus with neurological manifestations, not stated as uncontrolled Other chronic pancreatitis Acute non-recurrent pansinusitis Medicare annual wellness visit, subsequent- Primary Type 2 diabetes mellitus with hyperglycemia, with long-term current use of insulin ([facility]) Benign essential HTN (CMS/HCC) Dyslipidemia ([facility]/HCC) Other and unspecified hyperlipidemia Encounter for long-term (current) use of medications Encounter for long-term (current) use of other medications Abnormal TSH Other chronic pancreatitis Major depressive disorder, single episode, severe without psychotic features (HCC) (CMS/[facility]) Generalized anxiety disorder ([facility]) Generalized anxiety disorder Panic disorder ([facility]) Panic disorder without agoraphobia [facility] Diagnosis Localized osteoarthritis of left shoulder documented in this encounter [facility] note* Diagnosis Cervical spondylosis without myelopathy Lumbosacral spondylosis without myelopathy documented in this encounter [facility] note* Diagnosis Type 2 diabetes mellitus with hyperglycemia, with long-term current use of insulin ([facility])- Primary Benign essential HTN ([facility]/HCC) ADD (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 deficit disorder without mention of hyperactivity MDD (major depressive disorder), recurrent episode, mild (HCC) ([facility]) Generalized anxiety disorder ([facility]) Generalized anxiety disorder Mild intermittent asthma without complication ([facility]) Complex regional pain syndrome type 1, affecting unspecified site Mixed hyperlipidemia ([facility]) Mixed hyperlipidemia penitentiary (current) use of insulin (Z79.4) ADD (attention deficit disorder) without hyperactivity- Primary Attention deficit disorder without mention of hyperactivity Type 2 diabetes mellitus with hyperglycemia, with long-term current use of insulin ([facility]) Benign essential HTN ([facility]/HCC) MDD (major depressive disorder), recurrent episode, mild (HCC) ([facility]) Generalized anxiety disorder ([facility]) Generalized anxiety disorder Type 2 diabetes mellitus with hyperglycemia, with long-term current use of insulin ([facility])- Primary Benign essential HTN ([facility]/HCC) ADD (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 deficit disorder without mention of hyperactivity MDD (major depressive disorder), recurrent episode, mild (HCC) ([facility]) Generalized anxiety disorder ([facility]) Generalized anxiety disorder Type 2 diabetes mellitus with polyneuropathy ([facility]) Type II or unspecified type diabetes mellitus with neurological manifestations, not stated as uncontrolled Dysuria Breast cancer screening by mammogram Type 2 diabetes mellitus with hyperglycemia, with long-term current use of insulin ([facility])- Primary Benign essential HTN ([facility]/HCC) ADD (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 deficit disorder without mention of hyperactivity MDD (major depressive disorder), recurrent episode, mild (HCC) ([facility]) Generalized anxiety disorder ([facility]) Generalized anxiety disorder Type 2 diabetes mellitus with polyneuropathy ([facility]) Type II or unspecified type diabetes mellitus with neurological manifestations, not stated as uncontrolled Other chronic pancreatitis Acute non-recurrent pansinusitis Medicare annual wellness visit, subsequent- Primary Type 2 diabetes mellitus with hyperglycemia, with long-term current use of insulin ([facility]) Benign essential HTN ([facility]) Dyslipidemia ([facility]) Other and unspecified hyperlipidemia Encounter for long-term (current) use of medications Encounter for long-term (current) use of other medications Abnormal TSH Other chronic pancreatitis Trochanteric bursitis of both hips- Primary Lumbar spondylosis Lumbosacral spondylosis without myelopathy Lumbar radiculopathy Thoracic or lumbosacral neuritis or radiculitis, unspecified Nerve root and plexus disorder, unspecified documented in this encounter [facility] HealthcareEvaluation note* Diagnosis Pain Generalized pain documented in this encounter [facility]* Diagnosis Lumbosacral spondylosis without myelopathy [facility] Diagnosis Type 2 diabetes mellitus with hyperglycemia, with long-term current use of insulin ([facility])- Primary Benign essential HTN ([facility]) ADD (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 deficit disorder without mention of hyperactivity MDD (major depressive disorder), recurrent episode, mild (HCC) ([facility]) Generalized anxiety disorder ([facility]) Generalized anxiety disorder Mild intermittent asthma without complication ([facility]) Complex regional pain syndrome type 1, affecting unspecified site Mixed hyperlipidemia (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) Benign essential HTN ([facility]/HCC) MDD (major depressive disorder), recurrent episode, mild (HCC) ([facility]) Generalized anxiety disorder ([facility]) Generalized anxiety disorder Type 2 diabetes mellitus with hyperglycemia, with long-term current use of insulin ([facility])- Primary Benign essential HTN ([facility]) ADD (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 deficit disorder without mention of hyperactivity MDD (major depressive disorder), recurrent episode, mild (HCC) ([facility]) Generalized anxiety disorder ([facility]) Generalized anxiety disorder Type 2 diabetes mellitus with polyneuropathy ([facility]) Type II or unspecified type diabetes mellitus with neurological manifestations, not stated as uncontrolled Dysuria Breast cancer screening by mammogram Type 2 diabetes mellitus with hyperglycemia, with long-term current use of insulin ([facility])- Primary Benign essential HTN ([facility]/HCC) ADD (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 deficit disorder without mention of hyperactivity MDD (major depressive disorder), recurrent episode, mild (HCC) ([facility]/HCC) Generalized anxiety disorder ([facility]/HCC) Generalized anxiety disorder Type 2 diabetes mellitus with polyneuropathy ([facility]) Type II or unspecified type diabetes mellitus with neurological manifestations, not stated as uncontrolled Other chronic pancreatitis Acute non-recurrent pansinusitis Medicare annual wellness visit, subsequent- Primary Type 2 diabetes mellitus with hyperglycemia, with long-term current use of insulin ([facility]) Benign essential HTN ([facility]/HCC) Dyslipidemia ([facility]) Other and unspecified hyperlipidemia Encounter for long-term (current) use of medications Encounter for long-term (current) use of other medications Abnormal TSH Other chronic pancreatitis Type 2 diabetes mellitus with hyperglycemia, with long-term current use of insulin ([facility])- Primary Benign essential HTN ([facility]/HCC) ADD (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 deficit disorder without mention of hyperactivity MDD (major depressive disorder), recurrent episode, mild (HCC) ([facility]/HCC) Generalized anxiety disorder ([facility]) Generalized anxiety disorder Type 2 diabetes mellitus with polyneuropathy ([facility]) Type II or unspecified type diabetes mellitus with neurological manifestations, not stated as uncontrolled Acute non-recurrent pansinusitis documented in this encounter [facility] HealthcareEvaluation note* Diagnosis Type 2 diabetes mellitus with hyperglycemia, with long-term current use of insulin ([facility])- Primary Benign essential HTN ([facility]/HCC) ADD (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 deficit disorder without mention of hyperactivity MDD (major depressive disorder), recurrent episode, mild (HCC) ([facility]/HCC) Generalized anxiety disorder ([facility]/HCC) Generalized anxiety disorder Mild intermittent asthma without complication ([facility]) Complex regional pain syndrome type 1, affecting unspecified site Mixed hyperlipidemia ([facility]) Mixed hyperlipidemia penitentiary (current) use of insulin (Z79.4) ADD (attention deficit disorder) without hyperactivity- Primary Attention deficit disorder without mention of hyperactivity Type 2 diabetes mellitus with hyperglycemia, with long-term current use of insulin ([facility]/HCC) Benign essential HTN ([facility]/HCC) MDD (major depressive disorder), recurrent episode, mild (HCC) ([facility]) Generalized anxiety disorder ([facility]/HCC) Generalized anxiety disorder Type 2 diabetes mellitus [...] (major depressive disorder), recurrent episode, mild (HCC) ([facility]/HCC) Generalized anxiety disorder ([facility]/HCC) Generalized anxiety disorder Type 2 diabetes mellitus with polyneuropathy ([facility]/HCC) Type II or unspecified type diabetes mellitus with neurological manifestations, not stated as uncontrolled Other chronic pancreatitis Acute non-recurrent pansinusitis Medicare annual wellness visit, subsequent- Primary Type 2 diabetes mellitus with hyperglycemia, with long-term current use of insulin ([facility]/HCC) Benign essential HTN (CMS/HCC) Dyslipidemia ([facility]) Other and unspecified hyperlipidemia Encounter for long-term (current) use of medications Encounter for long-term (current) use of other medications Abnormal TSH Other chronic pancreatitis Type 2 diabetes mellitus with hyperglycemia, with long-term current use of insulin ([facility])- Primary Benign essential HTN (CMS/HCC) ADD (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 deficit disorder without mention of hyperactivity MDD (major depressive disorder), recurrent episode, mild (HCC) ([facility]/HCC) Generalized anxiety disorder ([facility]/HCC) Generalized anxiety disorder Type 2 diabetes mellitus with polyneuropathy ([facility]) Type II or unspecified type diabetes mellitus with neurological manifestations, not stated as uncontrolled Acute non-recurrent pansinusitis Major depressive disorder, single episode, severe without psychotic features (HCC) ([facility]/HCC) Generalized anxiety disorder ([facility]/HCC) Generalized anxiety disorder documented in this encounter [facility]* Diagnosis Type 2 diabetes mellitus with hyperglycemia, with long-term current use of insulin (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) Benign essential HTN (CMS/HCC) MDD (major depressive disorder), recurrent episode, mild (HCC) ([facility]/HCC) Generalized anxiety disorder ([facility]) Generalized anxiety disorder Type 2 diabetes mellitus with hyperglycemia, with long-term current use of insulin ([facility])- Primary Benign essential HTN (CMS/HCC) ADD (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 deficit disorder without mention of hyperactivity MDD (major depressive disorder), recurrent episode, mild (HCC) ([facility]/HCC) Generalized anxiety disorder ([facility]) Generalized anxiety disorder Type 2 diabetes mellitus with polyneuropathy ([facility]) Type II or unspecified type diabetes mellitus with neurological manifestations, not stated as uncontrolled Dysuria Breast cancer screening by mammogram Type 2 diabetes mellitus with hyperglycemia, with long-term current use of insulin ([facility])- Primary Benign essential HTN ([facility]/HCC) ADD (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 deficit disorder without mention of hyperactivity MDD (major depressive disorder), recurrent episode, mild (HCC) ([facility]) Generalized anxiety disorder ([facility]) Generalized anxiety disorder Type 2 diabetes mellitus with polyneuropathy ([facility]) Type II or unspecified type diabetes mellitus with neurological manifestations, not stated as uncontrolled Other chronic pancreatitis Acute non-recurrent pansinusitis Medicare annual wellness visit, subsequent- Primary Type 2 diabetes mellitus with hyperglycemia, with long-term current use of insulin ([facility]/HCC) Benign essential HTN (CMS/HCC) Dyslipidemia ([facility]/HCC) Other and unspecified hyperlipidemia Encounter for long-term (current) use of medications Encounter for long-term (current) use of other medications Abnormal TSH Other chronic pancreatitis Generalized anxiety disorder (CMS/HCC) Generalized anxiety disorder Type 2 diabetes mellitus with hyperglycemia, with long-term current use of insulin ([facility])- Primary Benign essential HTN ([facility]/HCC) ADD (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 deficit disorder without mention of hyperactivity MDD (major depressive disorder), recurrent episode, mild (HCC) (CMS/HCC) Generalized anxiety disorder (CMS/HCC) Generalized anxiety disorder Type 2 diabetes mellitus with polyneuropathy (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 (Z79.4) ADD (attention [...] plexus disorder, unspecified documented in this encounter [facility]* Diagnosis Type 2 diabetes [...] affecting unspecified site Mixed hyperlipidemia Mixed hyperlipidemia penitentiary (current) use of insulin (Z79.4) ADD (attention [...] and plexus disorders documented in this encounter [facility] note* Diagnosis Type 2 diabetes [...] affecting unspecified site Mixed hyperlipidemia Mixed hyperlipidemia penitentiary (current) use of insulin (Z79.4) ADD (attention [...] hyperglycemia, with long-term current use of insulin ([facility])- Primary Benign essential HTN ADD (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 deficit disorder without mention of hyperactivity MDD (major depressive disorder), recurrent episode, mild Generalized anxiety disorder Generalized anxiety disorder Type 2 diabetes mellitus with polyneuropathy ([facility]) Type II or unspecified type diabetes mellitus with neurological manifestations, not stated as uncontrolled Acute non-recurrent pansinusitis Type 2 diabetes mellitus with polyneuropathy (HCC) Type II or unspecified type diabetes mellitus with neurological manifestations, not stated as uncontrolled Generalized anxiety disorder Generalized anxiety disorder [facility] Diagnosis Intractable chronic migraine without aura and without status migrainosus- Primary Chronic migraine without aura, with intractable migraine, so stated, without mention of status migrainosus Chronic daily headache [facility]ache [facility] Diagnosis Type 2 diabetes mellitus with hyperglycemia, with long-term current use of insulin ([facility])- Primary Benign essential HTN ADD (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 deficit disorder without mention of hyperactivity MDD (major depressive disorder), recurrent episode, mild Generalized anxiety disorder Generalized anxiety disorder Mild intermittent asthma without complication (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) Benign essential HTN MDD (major depressive disorder), [...] disorder Type 2 diabetes mellitus with polyneuropathy ([facility]) Type II or unspecified type diabetes mellitus with neurological manifestations, not stated as uncontrolled Dysuria Breast cancer screening by mammogram Type 2 diabetes mellitus with hyperglycemia, with long-term current use of insulin ([facility])- Primary Benign essential HTN ADD (attention deficit [...] History CHOLECYSTECTOMY Hospitalization History SEE ABOVE SURGERY [facility] Other Hospital Discharge instructions Additional Instructions Avoid trauma to the surgical site.[facility] Work Phone: Reason for visit Narrative* Imaging (Routine) - Pending Review Specialty Diagnoses / Procedures Referred By Mary t Referred To Contact Radiology Diagnoses Pain Procedures FLUORO FOR SURGICAL PROCEDURES Jessee Billy MD [address] [place] [address] Phone: tel: fax: Referral ID Status Reason Start Date Expiration Date V isits Requested Visits Authorized [id number] Pending Review 10/08/2024 10/08/2025 1 1 [facility] Summary Purpose Family History No Family [...] and content) DATE CREATED AUTHOR 01/27/2020 [facility] DATE CREATED AUTHOR AUTHOR'S ORGANIZ ATION 03/25/2021 [facility] DATE CREATED AUTHOR AUTHOR'S ORGANIZ ATION 09/02/2022 [facility] DATE CREATED AUTHOR AUTHOR'S ORGANIZ ATION 03/10/2024 [facility] DATE CREATED AUTHOR AUTHOR'S ORGANIZ ATION 10/10/2024 [facility] DATE CREATED AUTHOR AUTHOR'S ORGANIZ ATION 12/24/2024 [facility] DATE CREATED AUTHOR AUTHOR'S ORGANIZ ATION 01/02/2025 [facility] DATE CREATED AUTHOR AUTHOR'S ORGANIZ ATION 01/17/2025 [facility] DATE CREATED AUTHOR AUTHOR'S ORGANIZ ATION 01/20/2025 [facility] Source Comments (unrecognize d section and content) In the event this informatio n is protected by the Federal Confidentiality of Alcohol and Drug Abuse Patient Records regulations: The Federal rules restrict any use of the information to criminally investigate or prosecute any alcohol or drug abuse patient.[facility] the event this information is protected by the Federal Confidentiality of Alcohol and Drug Abuse Patient Records regulations: The Federal rules restrict any use of the information to criminally investigate or prosecute any alcohol or drug abuse patient.[facility] HealthIn the event this information is protected by the Federal Confidentiality of Alcohol and Drug Abuse Patient Records regulations: The Federal rules restrict any use of the information to criminally investigate or prosecute any alcohol or drug abuse patient.[facility] the event this information is protected by the Federal Confidentiality of Alcohol and Drug Abuse Patient Records regulations: The Federal rules restrict any use of the information to criminally investigate or prosecute any alcohol or drug abuse patient.[facility] HealthIn the event this information is protected by the Federal Confidentiality of Alcohol and Drug Abuse Patient Records regulations: The Federal rules restrict any use of the information to criminally investigate or prosecute any alcohol or drug abuse patient.[facility]In the event this information is protected by the Federal Confidentiality of Alcohol and Drug Abuse Patient Records regulations: The Federal rules restrict any use of the information to criminally investigate or prosecute any alcohol or drug abuse patient.[facility] HealthIn the event this information is protected by the Federal Confidentiality of Alcohol and Drug Abuse Patient Records regulations: The Federal rules restrict any use of the information to criminally investigate or prosecute any alcohol or drug abuse patient.[facility] HealthIn the event this information is protected by the Federal Confidentiality of Alcohol and Drug Abuse Patient Records regulations: The Federal rules restrict any use of the information to criminally investigate or prosecute any alcohol or drug abuse patient.[facility] HealthIn the event this information is protected by the Federal Confidentiality of Alcohol and Drug Abuse Patient Records regulations: The Federal rules restrict any use of the information to criminally investigate or prosecute any alcohol or drug abuse patient.[facility] the event this information is protected by the Federal Confidentiality of Alcohol and Drug Abuse Patient Records regulations: The Federal rules restrict any use of the information to criminally investigate or prosecute any alcohol or drug abuse patient.[facility] HealthIn the event this information is protected by the Federal Confidentiality of Alcohol and Drug Abuse Patient Records regulations: The Federal rules restrict any use of the information to criminally investigate or prosecute any alcohol or drug abuse patient.[facility] HealthIn the event this information is protected by the Federal Confidentiality of Alcohol and Drug Abuse Patient Records regulations: The Federal rules restrict any use of the information to criminally investigate or prosecute any alcohol or drug abuse patient.[facility] HealthIn the event this information is protected by the Federal Confidentiality of Alcohol and Drug Abuse Patient Records regulations: The Federal rules restrict any use of the information to criminally investigate or prosecute any alcohol or drug abuse patient.[facility] HealthIn the event this information is protected by the Federal Confidentiality of Alcohol and Drug Abuse Patient Records regulations: The Federal rules restrict any use of the information to criminally investigate or prosecute any alcohol or drug abuse patient.[facility] HealthIn the event this information is protected by the Federal Confidentiality of Alcohol and Drug Abuse Patient Records regulations: The Federal rules restrict any use of the information to criminally investigate or prosecute any alcohol or drug abuse patient.[facility] HealthIn the event this information is protected by the Federal Confidentiality of Alcohol and Drug Abuse Patient Records regulations: The Federal rules restrict any use of the information to criminally investigate or prosecute any alcohol or drug abuse patient.[facility] HealthIn the event this information is protected by the Federal Confidentiality of Alcohol and Drug Abuse Patient Records regulations: The Federal rules restrict any use of the information to criminally investigate or prosecute any alcohol or drug abuse patient.[facility] HealthIn the event this information is protected by the Federal Confidentiality of Alcohol and Drug Abuse Patient Records regulations: The Federal rules restrict any use of the information to criminally investigate or prosecute any alcohol or drug abuse patient.[facility] HealthIn the event this information is protected by the Federal Confidentiality of Alcohol and Drug Abuse Patient Records regulations: The Federal rules restrict any use of the information to criminally investigate or prosecute any alcohol or drug abuse patient.[facility] HealthIn the event this information is protected by the Federal Confidentiality of Alcohol and Drug Abuse Patient Records regulations: The Federal rules restrict any use of the information to criminally investigate or prosecute any alcohol or drug abuse patient.[facility] HealthIn the event this information is protected by the Federal Confidentiality of Alcohol and Drug Abuse Patient Records regulations: The Federal rules restrict any use of the information to criminally investigate or prosecute any alcohol or drug abuse patient.[facility] HealthIn the event this information is protected by the Federal Confidentiality of Alcohol and Drug Abuse Patient Records regulations: The Federal rules restrict any use of the information to criminally investigate or prosecute any alcohol or drug abuse patient.[facility] Reason for Visit (unrecogniz ed section and [...] buy and bill. Preempt protocol J0585 Procedure -79801 chemodervate facial/trigem/cerv musc migraine Kinga Mendes, RASHAD.TRANSFORMER SHOP SUPERVISOR [address] [place] [address] Phone: tel: fax: Neurology [address] [phone] Phone: tel: fax: Referral ID Status Reason Start Date Expiration Date V isits Requested Visits Authorized [id number] Authorized 07/28/2024 01/28/2025 12 12 Reason Comments Botox Injection Specialty Diagnoses / Procedures Referred By Contac t Referred To Contact HEADACHE Diagnoses Chronic migraine without aura, intractable, without status migrainosus Procedures BOTULINUM TOXIN A PER 1 UNIT CHEMODERVATE FACIAL/TRIGEM/CERV MUSC MIGRAINE Renewal due 11/07/2021 Botox 200 units every 12 weeks for 1 year through [facility] buy and bill Preempt protocol [id number] Procedure -[id number] chemodervate facial/trigem/cerv musc migraine Kinga Mendes, MANUFACTURING MAINTENANCE TECHNICIAN.TRANSFORMER SHOP SUPERVISOR [address] [place] [address] Neur Headache Main S2 [address] [phone] Referral ID Status Reason Start Date Expiration Date Visits Re quested Visits Authorized [id number] Closed 10/27/2021 04/28/2022 2 2 Reason Comments Referral Request Reason Comments Migraine Referral ID Status Reason Start Date Expiration Date V isits Requested Visits Authorized [id number] Authorized 10/27/2021 04/28/2022 2 2 Specialty Diagnoses / Procedures Referred By Contac t Referred To Contact HEADACHE Diagnoses Chronic migraine without aura, intractable, without status migrainosus Procedures BOTULINUM TOXIN A PER 1 UNIT CHEMODERVATE FACIAL/TRIGEM/CERV MUSC MIGRAINE Renewal - next visit expected on 10/09/22 Botox 200 units every 12 weeks for 1 year through [facility] buy and bill Preempt protocol [id number] Procedure -84770 chemodervate facial/trigem/cerv musc migraine Kinga Mendes, MANUFACTURING MAINTENANCE TECHNICIAN.TRANSFORMER SHOP SUPERVISOR [address] [place] [address] Neur Headache Main S[address] [phone] Referral ID Status Reason Start Date Expiration Date V isits Requested Visits Authorized [id number] Waiting for Response 07/19/2022 09/17/2023 5 5 [...] Expiration Date V isits Requested Visits Authorized [id number] Closed Financial Clearance Not Required 10/30/2023 04/30/2024 4 4 Reason Comments Infusion Headache Specialty Diagnoses / Procedures Referred By Contac t Referred To Contact Neurology / HEADACHE Diagnoses Non-DHE Infusion Day #1 Procedures INFUSION HEADACHE Kinga Mendes, MANUFACTURING MAINTENANCE TECHNICIAN.TRANSFORMER SHOP SUPERVISOR [address] [id number] Neur Headache Main [address] [id number] Referral ID Status Reason Start Date Expiration Date V isits Requested Visits Authorized [id number] Authorized 04/08/2024 07/07/2024 1 99 Reason Comments Infusion Specialty Diagnoses / Procedures Referred By Contac t Referred To Contact Neurology / HEADACHE Diagnoses Follow-up exam Procedures OFFICE/OUTPATIENT ESTABLISHED HIGH MDM 40 MIN EST NI PATIENT Self Marilynn Lua PA-C [address] [place] [address] Referral ID Status Reason Start Date Expiration Date V isits Requested Visits Authorized [id number] Authorized 04/10/2024 04/10/2025 99 99 Reason Comments Follow-up 3m Flank Pain bilateral Sinusitis Congestion Reason Comments Medicare Annual Wellness Visit [facility] t wellness Reason Comments Back Pain Right MBB Specialty Diagnoses / Procedures Referred By Contac t Referred To Contact Pain Management Diagnoses PRECERT- RIGHT MBB L345 #1 Procedures INJ DX/THER AGNT PARAVERT FACET JOINT, LUMBAR/SAC, 1ST LEVEL Jessee Billy MD [address] [place] [address] Phone: tel: fax: Referral ID Status Reason Start Date Expiration Date V isits Requested Visits Authorized [id number] Authorized 09/17/2024 03/16/2025 1 1 Reason Comments Follow-up 3m Earache Left ear pain Reason Comments Forms Care Teams (unrecognized sec tion and content) Team Status: Active Member Role Status Dates Josh Ochoa MD Primary Care Provider Active Team Status: Inactive Member Role Status Dates Josh Ochoa MD Primary Care Provider Active Lee Chowdary MD Attending Provider Active Chemical Handler Relationship Specialty Start Date End Date Josh Ochoa PCP - General Family Practice 08/01/16 Deja Martins CNP Family Practice 09/17/16 Chemical Handler Relationship Specialty Start Date End Date Josh Ochoa PCP - General Family Practice 08/01/16 Deja Martins CNP Family Practice 09/17/16 Team Status: Inactive Member Role Status Dates Josh Ochoa MD Primary Care Provider Active Marie Elias MD Attending Provider Active Chemical Handler Relationship Specialty Start Date End Date Josh Ochoa PCP - General Family Medicine 08/01/16 Deja Martins CNP Family Medicine 09/17/16 Chemical Handler Relationship Specialty Start Date End Date Josh Ochoa PCP - General Family Medicine 08/01/16 Deja Martins CNP Family Medicine 09/17/16 Chemical Handler Relationship Specialty Start Date End Date Josh Ochoa PCP - General Family Medicine 08/01/16 Deja Martins CNP Family Medicine 09/17/16 Chemical Handler Relationship Specialty Start Date End Date Josh Ochoa PCP - General Family Medicine 08/01/16 Deja Martins CNP Family Medicine 09/17/16 Chemical Handler Relationship Specialty Start Date End Date Josh Ochoa PCP - General Family Medicine 08/01/16 Deja Martins CNP Family Medicine 09/17/16 Chemical Handler Relationship Specialty Start Date End Date Josh Ochoa PCP - General Family Medicine 08/01/16 Deja Martins CNP Family Medicine 09/17/16 Chemical Handler Relationship Specialty Start Date End Date Josh Ochoa MD [address] [place] [address] PCP - General Family Medicine 06/17/23 Chemical Handler Relationship Specialty Start Date End Date Josh Ochoa MD [address] [place] [address] PCP - General Family Medicine 06/17/23 Chemical Handler Relationship Specialty Start Date End Date Josh Ochoa MD [address] [place] [id number] PCP - General Family Medicine 06/17/23 Chemical Handler Relationship Specialty Start Date End Date Josh Ochoa MD [address] [place] [id number] PCP - General Family Medicine 06/17/23 Chemical Handler Relationship Specialty Start Date End Date Josh Ochoa PCP - General Family Medicine 08/01/16 Deja Martins CNP Family Medicine 09/17/16 Chemical Handler Relationship Specialty Start Date End Date Josh Ochoa MD [address] [place] [address] PCP - General Family Medicine 06/17/23 Josh Ochoa MD [address] [place] [address] PCP - [employer] 02/10/23 Chemical Handler Relationship Specialty Start Date End Date Josh Ochoa MD [address] [place] [address] PCP - General Family Medicine 06/17/23 Josh Ochoa MD [address] [place] [address] PCP - [employer] 02/10/23 Chemical Handler Relationship Specialty Start Date End Date Josh Ochoa MD [address] [place] [address] PCP - General Family Medicine 06/17/23 Josh Ochoa MD [address] [place] [address] PCP - [employer] 02/10/23 Chemical Handler Relationship Specialty Start Date End Date Josh Ochoa MD [address] [place] [address] PCP - General Family Medicine 06/17/23 Josh Ochoa MD [address] [place] [address] PCP - [employer] 02/10/23 Chemical Handler Relationship Specialty Start Date End Date Josh Ochoa MD PCP - General Family Medicine 08/01/16 Deja Martins CNP Family Medicine 09/17/16 Chemical Handler Relationship Specialty Start Date End Date Josh Ochoa MD PCP - General Family Medicine 08/01/16 Deja Martins CNP Family Medicine 09/17/16 Team Status: Inactive Member Role Status Dates Josh Ochoa MD Primary Care Provider Active S tart: January 08, 2024 End: January 08, 2024 Al Kumar MD Attending Provider Active Start: January 08, 2024 End: January 08, 2024 Chemical Handler Relationship Specialty Start Date End Date Josh Ochoa MD [address] [place] [address] PCP - General Family Medicine 06/17/23 Josh Ochoa MD [address] [place] [address] PCP - [employer] 02/10/23 Chemical Handler Relationship Specialty Start Date End Date Josh Ochoa MD [address] [place] [address] PCP - General Family Medicine 06/17/23 Josh Ochoa MD [address] [place] [address] PCP - [employer] 02/10/23 Chemical Handler Relationship Specialty Start Date End Date Josh Ochoa MD [address] [place] [address] PCP - General Family Medicine 06/17/23 Josh Ochoa MD [address] [place] [address] PCP - [employer] 02/10/23 Chemical Handler Relationship Specialty Start Date End Date Josh Ochoa MD [address] [place] [address] PCP - General Family Medicine 06/17/23 Josh Ochoa MD [address] [place] [address] PCP - [employer] 02/10/23 Chemical Handler Relationship Specialty Start Date End Date Josh Ochoa MD PCP - General Family Medicine 08/01/16 Deja Martins CNP Family Medicine 09/17/16 Chemical Handler Relationship Specialty Start Date End Date Josh Ochoa MD PCP - General Family Medicine 08/01/16 Deja Martins CNP Family Medicine 09/17/16 Chemical Handler Relationship Specialty Start Date End Date Josh Ochoa MD PCP - General Family Medicine 08/01/16 Deja Martins CNP Family Medicine 09/17/16 Chemical Handler Relationship Specialty Start Date End Date Josh Ochoa MD PCP - General Family Medicine 08/01/16 Deja Martins CNP Family Medicine 09/17/16 Chemical Handler Relationship Specialty Start Date End Date Josh Ochoa MD PCP - General Family Medicine 08/01/16 Deja Martins CNP Family Medicine 09/17/16 Chemical Handler Relationship Specialty Start Date End Date Josh Ochoa MD [address] [place] [address] PCP - General Family Medicine 06/17/23 Josh Ochoa MD [address] [place] [address] PCP - [employer] 02/10/23 Chemical Handler Relationship Specialty Start Date End Date Josh Ochoa MD [address] [place] [address] PCP - General Family Medicine 06/17/23 Josh Ochoa MD [address] [place] [address] PCP - [employer] 02/10/23 Chemical Handler Relationship Specialty Start Date End Date Josh Ochoa MD [address] [place] [address] PCP - General Family Medicine 06/17/23 Josh Ochoa MD [address] [place] [address] PCP - [employer] 02/10/23 Chemical Handler Relationship Specialty Start Date End Date Josh Ochoa MD [address] [place] [address] PCP - General Family Medicine 06/17/23 Josh Ochoa MD [address] [place] [address] PCP - [employer] 02/10/23 Chemical Handler Relationship Specialty Start Date End Date Josh Ochoa MD [address] [place] [address] PCP - General Family Medicine 06/17/23 Josh Ochoa MD [address] [place] [address] PCP - [employer] 02/10/23 Chemical Handler Relationship Specialty Start Date End Date Josh Ochoa MD [address] [place] [address] PCP - General [facility] 06/17/23 Josh Ochoa MD [address] [place] [address] PCP - [employer] 02/10/23 Chemical Handler Relationship Specialty Start Date End Date Josh Ochoa MD [address] [place] [address] PCP - General Family Medicine 06/17/23 Josh Ochoa MD [address] [place] [address]1002 PCP - [employer] 02/10/23 Chemical Handler Relationship Specialty Start Date End Date Josh Ochoa MD [address] [place] [address] PCP - General Family Medicine 06/17/23 Josh Ochoa MD [address] [place] [address] PCP - [employer] 02/10/23 Dc Jackson [facility] [address] [place], [place] [id number] [facility] 05/26/24 Chemical Handler Relationship Specialty Start Date End Date Josh Ochoa MD [address] [place] [address] PCP - General Family Medicine 06/17/23 Josh Ochoa MD [address] [place] [address] PCP - [employer] 02/10/23 cD Jackson [facility] [address] [place] [address] [facility] 05/26/24 Chemical Handler Relationship Specialty Start Date End Date Josh Ochoa MD [address] [place] [address] PCP - General Family Medicine 06/17/23 Josh Ochoa MD [address] [place] [address] PCP - [employer] 02/10/23 Dc Jackson [facility] [address] [place], [place] [id number] [facility] 05/26/24 Chemical Handler Relationship Specialty Start Date End Date Josh Ochoa MD [address] [place] [address] PCP - General Family Medicine 06/17/23 Josh Ochoa MD [address] [place] [address] PCP - [employer] 02/10/23 Dc Jackson, [facility] [address] [place] [address] [facility] 05/26/24 Chemical Handler Relationship Specialty Start Date End Date Josh Ochoa MD [address] [place] [address] PCP - General Family Medicine 06/17/23 Josh Ochoa MD [address] [place] [address] PCP - [employer] 02/10/23 Dc Jackson, [facility] [address] [place] [address] [facility] 05/26/24 Chemical Handler Relationship Specialty Start Date End Date Josh Ochoa MD [address] [place] [address] PCP - General Family Medicine 06/17/23 Josh Ochoa MD [address] [place] [address] PCP - [employer] 02/10/23 Dc Jackson, [facility] [address] [place] [address] [facility] 05/26/24 Chemical Handler Relationship Specialty Start Date End Date Josh Ochoa MD [address] [place] [address] PCP - General Family Medicine 06/17/23 Josh Ochoa MD [address] [place] [address] PCP - [employer] 02/10/23 Dc Jackson, [facility] [address] [place] [address] [facility] 05/26/24 Chemical Handler Relationship Specialty Start Date End Date Josh Ochoa MD [address] [place] [address] PCP - General Family Medicine 06/17/23 Josh Ochoa MD [address] [place] [address] PCP - [employer] 02/10/23 Dc Jackson, [facility] [address] [place] [address] [facility] 05/26/24 Chemical Handler Relationship Specialty Start Date End Date Josh Ochoa MD [address] [place] [address] PCP - General Family Medicine 06/17/23 Josh Ochoa MD [address] [place] [address] PCP - [employer] 02/10/23 Dc Jackson, [facility] [address] [place] [address] [facility] 05/26/24 Chemical Handler Relationship Specialty Start Date End Date Josh Ochoa MD [address] [place] [address] PCP - General Family Medicine 06/17/23 Josh Ochoa MD [address] [place] [address] PCP - [employer] 02/10/23 Dc Jackson, [facility] [address] [place] [address] [facility] 05/26/24 Chemical Handler Relationship Specialty Start Date End Date Josh Ochoa MD [address] [place] [address] PCP - General Family Medicine 06/17/23 Josh Ochoa MD [address] [place] [address] PCP - [employer] 02/10/23 Dc Jackson, [facility] [address] [place] [address] [facility] 05/26/24 Chemical Handler Relationship Specialty Start Date End Date Josh Ochoa MD PCP - General Family Medicine 08/01/16 Deja Martins CNP Family Medicine 09/17/16 Chemical Handler Relationship Specialty Start Date End Date Josh Ochoa MD [address] [place] [address] PCP - General Family Medicine 06/17/23 Josh Ochoa MD [address] [place] [address] PCP - [employer] 02/10/23 Dc Jackson, [facility] [address] [address] [facility] 05/26/24 Chemical Handler Relationship Specialty Start Date End Date Josh Ochoa MD [address] [place] [address] PCP - General Family Medicine 09/10/24 Chemical Handler Relationship Specialty Start Date End Date Josh Ochoa MD [address] [place] [address] PCP - General Family Medicine 09/10/24 Chemical Handler Relationship Specialty Start Date End Date Josh Ochoa MD [address] [place] [address] PCP - General Family Medicine 06/17/23 Josh Ochoa MD [address] [place] [address] PCP - [employer] 02/10/23 Dc Jackson, [facility] [address] [place] [address] [facility] 05/26/24 Chemical Handler Relationship Specialty Start Date End Date Josh Ochoa MD [address] [place] [address] PCP - General Family Medicine 06/17/23 Josh Ochoa MD [address] [place] [address] PCP - [employer] 02/10/23 Dc Jackson, [facility] [address] [place] [address] [facility] 05/26/24 Chemical Handler Relationship Specialty Start Date End Date Josh Ochoa MD [address] [place] [address] PCP - General Family Medicine 06/17/23 Josh Ochoa MD [address] [place] [address] PCP - [employer] 02/10/23 Dc Jackson, [facility] [address] [place] [address] [facility] 05/26/24 Chemical Handler Relationship Specialty Start Date End Date Josh Ochoa MD [address] [place] [address] PCP - General Family Medicine 09/10/24 Chemical Handler Relationship Specialty Start Date End Date Josh Ochoa MD [address] [place] [address] PCP - General Family Medicine 09/10/24 Chemical Handler Relationship Specialty Start Date End Date Josh Ochoa MD [address] [place] [address] PCP - General Family Medicine 06/17/23 Josh Ochoa MD [address] [place] [address] PCP - [employer] 02/10/23 Dc Jackson [facility] [address] [place] [address] [facility] 05/26/24 Chemical Handler Relationship Specialty Start Date End Date Josh Ochoa MD [address] [place] [address] PCP - General Family Medicine 06/17/23 Josh Ochoa MD [address] [place] [address] PCP - [employer] 02/10/23 Dc Jackson [facility] [address] [place] [address] [facility] 05/26/24 Chemical Handler Relationship Specialty Start Date End Date Josh Ochoa MD [address] [place] [address] PCP - General Family Medicine 06/17/23 Josh Ochoa MD [address] [place] [address] PCP - [employer] 02/10/23 Dc Jackson, [facility] [address] [place] [address] [facility] 05/26/24 Chemical Handler Relationship Specialty Start Date End Date Josh Ochoa MD [address] [place] [address] PCP - General Family Medicine 06/17/23 Josh Ochoa MD [address] [place] [address] PCP - [employer] 02/10/23 Dc Jackson, [facility] [address] [place] [address] [facility] 05/26/24 Chemical Handler Relationship Specialty Start Date End Date Josh Ochoa MD [address] [place] [address] PCP - General Family Medicine 06/17/23 Josh Ochoa MD [address] [place] [address] PCP - [employer] 02/10/23 Dc Jackson, [facility] [address] [place] [address] [facility] 05/26/24 Chemical Handler Relationship Specialty Start Date End Date Josh Ochoa MD [address] [place] [address] PCP - General Family Medicine 06/17/23 Josh Ochoa MD [address] [place] [address] PCP - [employer] 02/10/23 Dc Jackson, [facility] [address] [place] [address] [facility] 05/26/24 Chemical Handler Relationship Specialty Start Date End Date Josh Ochoa MD [address] [place] [address] PCP - General Family Medicine 06/17/23 Josh Ochoa MD [address] [place] [address] PCP - [employer] 02/10/23 Dc Jackson [facility] [address] [place] [address] [facility] 05/26/24 Chemical Handler Relationship Specialty Start Date End Date Josh Ochoa MD [address] [place] [address] PCP - General Family Medicine 06/17/23 Josh Ochoa MD [address] [place] [address] PCP - [employer] 02/10/23 Dc Jackson, [facility] [address] [place] [address] [facility] 05/26/24 Chemical Handler Relationship Specialty Start Date End Date Josh Ochoa MD [address] [place] [address] PCP - General Family Medicine 06/17/23 Josh Ochoa MD [address] [place] [address] PCP - [employer] 02/10/23 Dc Jackson, [facility] [address] [place] [address] [facility] 05/26/24 Chemical Handler Relationship Specialty Start Date End Date Josh [...] BE BASED ON THE PRIMARY CLINICAL RECORDS. [facility] [employer]. provides no warranty or guarantee of the accuracy or completeness of information in this document.
== END 2025-02-16 21:18 | disposition home or self-care (01) ==
PROVIDERS: PCP Internal Medicine Cardiovascular Disease; Visit Provider Internal Medicine Cardiovascular Disease
DX: G47.33 Obstructive sleep apnea (adult) (pediatric) (principal)
CPT/HCPCS: 95811

== ENCOUNTER 2025-03-13 | Outpatient (RCR) | payer MEDICARE, SELFPAY | END 2025-04-11 23:59 | disposition home or self-care (01) | LOC: MM | PROVIDERS: PCP Internal Medicine Cardiovascular Disease; Visit Provider Internal Medicine | DX: Z51.81 Encounter for therapeutic drug level monitoring (principal); Z79.01 Long term (current) use of anticoagulants; I48.0 Paroxysmal atrial fibrillation | CPT/HCPCS: 85610; G0463 ==

== ENCOUNTER 2025-04-12 11:21 | Outpatient (RCR) | payer MEDICARE, SELFPAY ==
--- OUTSIDE RECORDS SUMMARY | 2025-04-12 11:25 | XMS_ITS | Clinical Summary ---
Author Organization [facility] Healthcare Address [address] [place] [address] Care Team Providers Care Clay Carman Name Role Phone Josh Tracy MD Primary Care Provider [phone] Josh Tracy MD Unavailable Mary Kate Jackson [facility] Unavailable Allergies Active AllergyReactionsCriticalityNoted DateCommentsCiprofloxacinHives,Unknown Yrctpk9701/17/2017 Other Reaction(s): Other (See Comments), Unknown Cod Liver FepRnrfNhd09/27/4299GlfldpcAhhedjd00/12/2023DesonideUnknownHigh 11/24/2012 Other Reaction(s): hives Other Reaction(s): Dermatitis, GI Disturbance patient unaware but hx of TBI so she may not recall ErythromycinHives,OommJyrcby63/13/2005 Other Reaction(s): Not available Erythromycin Base09/21/2022 Other Reaction(s): Unknown LatexAnaphylaxis,ZeinxqxYxjv22/13/2005 Other Reaction(s): Unknown LjdspsweznqDsxrRoh06/23/2018 Other Reaction(s): Unknown ProchlorperazineGI tgjmytzqfxo93/02/2024 Restless Sulfa AntibioticsHives,Rash,OasdejsKjb90/23/2018Wound Dressing AdhesiveUnknown High04/24/2021 Blistering Zinc UgueyJvuhKar76/27/2023 Medications MedicationSigDispense QuantityRefillsLast FilledStart DateEnd DateStatus albuterol (2.5 MG/3ML) 0.083% nebulizer solution Take 2.5 mg by nebulization every 4 (four) hours if needed.Active albuterol HFA 90 mcg/act inhaler Inhale 2 puffs every 4 (four) hours if needed.Active Calcium Carbonate-Vit D-Min (Caltrate 600+D Plus Minerals) 600-800 MG-UNIT chewable tablet Chew.Active cholecalciferol (Vitamin D-3) 50 MCG (2000 UT) tablet Take 1 tablet by mouth in the morning.Active cyclobenzaprine (Flexeril) 10 MG tablet Take 10 mg by mouth 3 (three) times a day as needed.Active furosemide (Lasix) 40 MG tablet Take 40 mg by mouth in the morning.Active isosorbide mononitrate ER (Imdur) 30 MG 24 hr tablet Take 30 mg by mouth in the morning.11/19/2022ctive lisinopril-hydroCHLOROthiazide 10-12.5 MG tablet Take 1 tablet by mouth in the morning.Active magnesium oxide (Mag-Ox) 400 (241.3 Mg) MG tablet Take 400 mg by mouth at bedtime.02/04/2022ctive nystatin (Mycostatin) 088571 UNIT/GM powder APPLY 1 application TO THE AFFECTED AREA(S) THREE TIMES DAILY (EXTERNALLY) 07/31/2022ctive TRUEplus Insulin Syringe 31G X 5/16 0.5 ML misc USE DIRECTED to refill pump EVERY 3 DAYS03/06/2023ctive Rimegepant Sulfate (Nurtec) 75 MG tablet dispersible Indications:Intractable chronic migraine without aura and without status migrainosusTake 75 mg by mouth if needed (once at onset of migraine every other day PRN) 16 tablet ctive rosuvastatin (Crestor) 40 MG tablet Take 40 mg by mouth in the morning.07/29/2023ctive ezetimibe (Zetia) 10 MG tablet Take 10 mg by mouth in the morning.07/29/2023ctive Glucose Blood (Blood Glucose Test Strips 333) strip Indications:Type 2 diabetes mellitus with hyperglycemia, with long-term current use of insulin (HCC)1 each by In Vitro route in the morning and 1 each at noon and 1 each in the evening and 1 each before bedtime. 100 strip 11011/18/2023ctive NovoLOG FLEXPEN 100 UNIT/ML pen Indications:Type 2 diabetes mellitus with hyperglycemia (HCC)INJECT 100 UNITS EVERY DAY via insulin pump 90 mL 4Active glipiZIDE (Glucotrol) 10 MG tablet Indications:Type 2 diabetes mellitus with hyperglycemia (HCC)TAKE 1 TABLET BY MOUTH DAILY 30 tablet 4Active metFORMIN (Glucophage) 1000 MG tablet Indications:Type 2 diabetes mellitus with hyperglycemia (HCC)TAKE 1 TABLET BY MOUTH TWICE DAILY 60 tablet 4Active fenofibrate (Triglide) 160 MG tablet Indications:Hyperlipidemia, unspecifiedTAKE 1 TABLET BY MOUTH DAILY 90 tablet 5Active Blood Glucose Monitoring Suppl (Blood Glucose Monitor System) w/Device kit Indications:Type 2 diabetes mellitus with polyneuropathy (HCC)Test four times daily 1 kit 506Active prochlorperazine (Compazine) 10 MG tablet Indications:Dizziness and giddinessTAKE 1 TABLET BY MOUTH EVERY 6 HOURS NEEDED 60 tablet 1105Active Lancet Devices (Autolet) lancing device Indications:Type 2 diabetes mellitus with polyneuropathy (HCC)Use as instructed 1 each 502/6Active clopidogrel (Plavix) 75 MG tablet 5Active Lantus SoloStar 100 UNIT/ML pen 5Active Lancets (Affinity LabsTouch Delica Plus Mmzofk37Q) [facility] USE ZCUWMQPG42/05/2025Active Mounjaro 5 MG/0.5ML solution auto-injector INJECT 5mg SUBCUTANEOUSLY (UNDER THE SKIN) once a week5Active progesterone (Prometrium) 100 MG capsule Indications:Hormone imbalance,Hot flashesTake 1 capsule (100 mg) by mouth Daily 30 capsule 110506Active metoclopramide (Reglan) 10 MG tablet Indications:Dizziness and giddinessTAKE 1 TABLET BY MOUTH FOUR TIMES DAILY 120 tablet 5Active venlafaxine XR (Effexor XR) 225 MG 24 hr tablet Indications:Major depressive disorder, single episode, severe without psychotic features (HCC)TAKE 1 TABLET BY MOUTH IN THE MORNING 30 tablet 5Active atomoxetine (Strattera) 80 MG capsule Indications:ADD (attention deficit disorder) without hyperactivityTAKE 1 CAPSULE BY MOUTH DAILY 30 capsule 506/30/2025Active meclizine (Antivert) 25 MG tablet Indications:Dizziness and giddinessTAKE 1 TABLET BY MOUTH FOUR TIMES DAILY NEEDED 120 tablet 5Active dapagliflozin (Farxiga) 10 MG Indications:Type 2 diabetes mellitus with polyneuropathy (HCC)TAKE 1 TABLET BY MOUTH DAILY 30 tablet 505Active hydrOXYzine HCl (Atarax) 50 MG tablet Indications:Generalized anxiety disorderTAKE 1 TABLET BY MOUTH DAILY NEEDED FOR ANXIETY 30 tablet 505Active ALPRAZolam (Xanax) 1 MG tablet Indications:Generalized anxiety disorderTAKE 1 TABLET BY MOUTH DAILY NEEDED 30 tablet 5Active tiZANidine (Zanaflex) 4 MG tablet Indications:Radiculopathy, cervical regionTake 2 tablets (8 mg) by mouth every 8 (eight) hours if needed for muscle spasms 180 tablet 5Active pregabalin (Lyrica) 300 MG capsule Indications:Lumbar spondylosis,Cervical spondylosis,Other nerve root and plexus disordersTake 1 capsule (300 mg) by mouth in the morning and 1 capsule (300 mg) in the evening and 1 capsule(300 mg) before bedtime. 90 capsule 5Active Qulipta 60 MG tablet Take 1 tablet by mouth Daily12/08/2024tive metoprolol tartrate (Lopressor) 25 MG tablet Take 12.5 mg by mouth in the morning and 12.5 mg in the evening.12/14/2024 12/14/2025ctive warfarin (Coumadin) 5 MG tablet TAKE 1 TABLET BY MOUTH DAILY DIRECTED per Coumadin tbovvv485Active Water For Irrigation, Sterile (sterile water) irrigation 5Active estradiol (Estrace) 1 MG tablet Indications:Hot flashes,Vaginal irritationTake 1 tablet (1 mg) by mouth Daily Take 1 tablet by mouth for 30 days 30 tablet 5Active dawovjwyko-colttydcwmzbl-adjcjium (Esgic) 50-325-40 MG tablet Indications:Intractable chronic migraine without aura and without status migrainosusTake 1 tablet by mouth every 6 (six) hours if needed for headaches or migraine 30 tablet ExpiredHospital, Clinic, or Other Facility Administered MedicationOrdered DoseRouteFrequencyStart DateEnd DateStatus lidocaine (Xylocaine) 2 % injection 20 mg Indications:Trochanteric bursitis of both hips,Nerve root and plexus disorder, gppsmdrfduo22 vwKANocg88/06/2025Active lidocaine (Xylocaine) 2 % injection 40 mg Indications:Trochanteric bursitis of both hips,Nerve root and plexus disorder, reqkcksfftz20 eeCHBsym73/13/2025Active Active Problems ProblemNoted DateDiagnosed DateMedicare annual wellness visit, subsequent 08/10/2024 Assessment & Plan (08/10/2024 10:03 AM EDT): Due for labs. Discussed proper diet and regular aerobic exercise. Need aerobic exercise 5-6 days a week for 30 minutes at a time. Smaller portions and limit total calories. Colonoscopy every 10 years. Tetanus every 10 years. Advised not to smoke. Encounter for long-term (current) use of ulzzwpfyqnj03/31/2025bnormal TSH 08/10/2024Nerve root and plexus disorder, /18/2025Dyslipidemia 05/11/2024Other chronic mszlyazvdysm88/30/2024 Assessment & Plan (05/11/2024 9:22 AM EST): No symptoms and monitor. Cervical paraspinal muscle spasm08/30/2023Other nerve root and plexus disorders 08/06/2023Migraine without aura and without status migrainosus, not intractable 08/06/2023Trochanteric bursitis, right hip08/06/2023Trochanteric bursitis, left hip08/06/2023Lumbar pwfxhfejtkvev53/20/2024ervical huzlfyyqpcw77/20/2024DD (attention deficit disorder) without pjptbepyvtkls58/08/2024 Assessment & Plan (10/12/2024 9:09 AM EDT): [...] and try strattera. Trochanteric bursitis of both hips12/17/2022rachial plexus yosxoawzce29/01/2023 Lumbar qykzaoyxugy65/01/2023omplex regional pain syndrome I, unspecified 12/11/2022 Assessment & Plan (06/20/2023 2:53 PM EST): Pain stable and follow up with specialists. Generalized anxiety keuuvucl44/12/2023 Assessment & Plan (10/12/2024 9:09 AM EDT): [...] medication and continue. Use xanax PRN. Panic mrcffbeo03/12/1688Igphhuxe90/12/2023MDD (major depressive disorder), recurrent episode, mild09/21/2022 Assessment & Plan (10/12/2024 9:09 AM EDT): Symptoms controlled with medication and continue. Assessment & Plan (12/13/2023 11:13 AM EDT): Symptoms controlled with medication and continue. Assessment & Plan (07/15/2023 8:50 AM EST): Symptoms controlled with medication and continue. Assessment & Plan (06/20/2023 2:52 PM EST): Symptoms controlled with medication and continue. Coronary artery disease involving washoe coronary artery of washoe heart without angina zmswptyz51/19/2023 Overview (12/11/2022): Last Assessment & Plan: Coronary artery disease is stable without any concerning symptoms Continue GDMT- add toprol 12.5 mg daily, ASA< plavix, lipitor continue risk factor modifications- heart healthy diet, regular exercise as tolerated and continue all medications. Type 2 diabetes mellitus with dggfryfxbitlyg60/19/2023 Assessment & Plan (10/12/2024 9:10 AM EDT): Pain stable and continue lyrica. Assessment & Plan (05/11/2024 9:22 AM EST): Pain stable and continue lyrica. Assessment & Plan (12/13/2023 11:13 AM EDT): Pain stable and continue lyrica. S/P drug eluting coronary stent lmnrraipx64/19/2023 Overview (12/11/2022): 1. 07/06/22 Coronary angiogram shows severe single-vessel coronary artery disease with 85% stenosis of the mid RCA which was reduced to 0%by a Synergy XD drug-eluting stent. 2. Mild disease in the LAD, circumflex and distal RCA. Normal left main. Last Assessment & Plan: Stable, continue DAPT x 1 year Ilxklck4708/29/2022enign essential HTN07/06/2022 Overview (12/11/2022): Last Assessment & Plan: Hypertension [...] and monitor PRN. Edema of both lower hbwocileycv85/24/2023 Overview (12/11/2022): Last Assessment & Plan: Stable, no edema today- continue lasix 40 mg daily Mild intermittent asthma without qkulvejumbbr40/24/2023 Overview (12/11/2022): Last Assessment & Plan: F/U with PCP and pulmonary Assessment & Plan (06/20/2023 2:53 PM EST): No SOB and use albuterol PRN. Tobacco tzjeqoymsc50/24/2023 Overview (12/11/2022): Last Assessment & Plan: Tobacco use - she has quit smoking Type 2 diabetes mellitus with hyperglycemia, with long-term current use of jicoghq2607/06/2022 Overview (12/11/2022): Last Assessment & Plan: Diabetes [...] to ADA diet and limit carbs. Unstable qqlkjw4507/06/2022 Overview (12/11/2022): Last Assessment & Plan: New pt presented with concerning s/s of angina with multiple co- morbidities/risk factors- DM type 2, HTN, HPL, Obesity, Family h/o early CAD/[place], current smoker. Will send for cardiac cath to assess for significant coronary stenosis. ASCVD- 10 year risk of CVD 15.1%; 10 year risk with optimal risk factor medication 0.6% Increase lipitor to 80 mg from 40 mg, recommended referral to endocrinology for better glycemic management- referral sent. Postconcussion gxvablte12/19/2021ervico-occipital tdkauhulo14/28/2017Chronic migraine without aura, not intractable, without status ylfwhjvmyhs84/06/2009 Polycystic apkiybs2502/15/2009 Resolved Problems ProblemNoted DateDiagnosed DateResolved DateAcute non-recurrent pansinusitis / Assessment & Plan (05/11/2024 9:21 AM EST): Take antibiotics for 7 days. Use flonase for inflammation. Use sudafed or other decongestants as needed. Use Robitussin or Robitussin-DM for cough. Can use afrin for congestion but no longer than 3 days. Can use Mucinex to bring up phlegm. Use Motrin or Tylenol as needed for fever, aches, or pains.Increase fluid intake and rest. Should improve over next 5-7 days and if no better or worse call for re-evaluation. Rgyhcmo80 Assessment & Plan (12/13/2023 11:12 AM EDT): History suggestive UTI and treat. Take levaquin for infection and use pyridium for symptoms. Send urine for culture. Increase water intake and cranberry juice. Use motrin or tylenol for discomfort. Intractable migraine without aura and without status hgnylbjrsyl70/20/2024 05/11/2024adiculopathy, cervical jkxtci25/2216Vfgglatuv87/16/2023 04/19/2023Lipoma of lower backLump of skin of back12/25/2022 06/20/2023ervical paraspinal muscle spasm/08/2023Enthesopathy of hip nilzqs47MyalgiaOth cond assoc w female genital organs and menstrual cycle/12/2023Vaginal jjgipfg6612/11/2022 06/20/2023dhesive capsulitis of left dmwjwvrl65nxiety /7576Xwmvfmybbp84iabetes oxneyvex18/19/2023 04/19/20232269Atwxrwgrzjggswqmukvj72/19/202302/08/2024Optic nerve vzpbhbie44/19/2023 06/20/20233902Vrasuwgkilpxws07/19/202302/08/2024Family history of early CAD /12/2023 Overview (12/11/2022): Last Assessment & Plan: Both parents with early CAD Mixed iqvhhwqxfkahih35/24/202312/ Overview (12/11/2022): Last Assessment & Plan: Lipid abnormalities are uncontrolled- will increase lipitor to 80 mg daily and repeat labs in 2 months Mixed hyperlipidemia due to type 2 diabetes loeodoqv38/12/2023 Overview (12/11/2022): Added automatically from request for surgery [id number] Last Assessment & Plan: Continue statin HAWTHORNE (dyspnea on exertion) Overview (12/11/2022): Last Assessment & Plan: stable SOB (shortness of breath)/4Cervical nitlwqweonnmc48/19/2021 06/20/2023egeneration of lumbosacral intervertebral disc/12/2023 Pain in joint of left axkfxehw45/12/2023Memory asnxide8605/25/2020 06/20/2023hronic pain jrmdrmyf12 Overview (12/11/2022): Last Assessment & Plan: F/u with PCP Medication overuse gdnnwuth30losed fracture of coronoid process of ulnaFracture of ulnaObesity affecting , antepartum ([facility])Migraine02/15/2009 06/20/2023regnancy complicated by tobacco use ([facility]) Asthma-chronic obstructive pulmonary disease overlap vyrxpiah81/13/2005 06/20/2023 Encounters DateTypeDepartmentCare ZoruCecrqnbcspm63/27/2025Telephone [facility] [address] [facility] [phone] Smiley Merritt, MONICA Med Ktrlsu9603/08/2025Refill [facility] [address] [place] [phone] Lyn-Nossek, Carolynn M, BOW MAKER MACHINE TENDER-PARTNERSHIP MANAGER Insomnia, unspecified type02/21/2025Telephone [facility] [address] [facility] [address] [place] [phone] Kacey Lancaster, RT. R 02/18/2025Telephone [facility] [address] [facility] [address] [place] [address] Smiley Merritt MA 02/18/2025Telephone [facility] [address] [facility] [address] [place] [phone] Kacey Lancaster, RT. R 02/17/2025 8:00 AM EDTClinical Support [facility] [address] [facility] [address] [place] [address] Garry Arce MD Trochanteric bursitis of both hips (Primary Dx); Other nerve root and plexus tzvqwmyuw09/08/2025amboo flowsheet [facility] [address] [place] [phone] Garry Arce MD 02/17/2025Travelfrom Last 3 Months Immunizations ImmunizationAdministration DatesNext DueInfluenza, recombinant, quadrivalent, injectable, preservative free03/04/2023Moderna SARS-CoV-2 Vihmvcevqyr34/20/2021, 11/01/2020neumococcal Conjugate PCV 0193LKYY-KVH-8 (COVID-19) vaccine, mRNA, spike protein, LNP, PF, 50 mcg/0.5 mL03/04/2023 Family History Medical HistoryRelationNameCommentsColon cancerFatherHeart attackFatherHeart diseaseFatherDepressionMotherDiabetesMotherHeart diseaseMotherLung cancerMother DepressionSisterDiabetesSisterHyperlipidemiaSisterAnxiety disorderSon 1 DepressionSon 1PTSDSon 1Anxiety disorderSon 2RelationNameStatusCommentsFather DeceasedMotherDeceasedSisterSon 1Son 2 Social History Tobacco UseTypesPacks/DayYears UsedDateSmoking Tobacco: LzznyuNjxtnieikf392 07/28/1999 - 07/27/2022Smokeless Tobacco: Never Tobacco Cessation:Counseling Given: Yes Alcohol UseStandard Drinks/WeekCommentsNever0 (1 standard drink = 0.6 oz pure alcohol)caffeine intake: maybe 1 coffee or pop cups per dayPHQ-2AnswerDate RecordedPatient Health Questionnaire-2 Tqmar709CommentsNoSex and Gender InformationValueDate RecordedSex Assigned at BirthNot on fileLegal Sex Rcpwqo4907/25/2022 6:35 PM EDTGender IdentityNot on fileSexual OrientationNot on fileOccupationIndustryJob Start DateJob End Datecurrently on medical leave and workers comp from previous employerNot on fileNot on fileNot on file Last Filed Vital Signs Vital SignReadingTime TakenCommentsBlood Mshtbyhh581/6208 11:48 AM EDT Ezebl595010/12/2024 8:25 AM YZWUwukfagtuqk47.6 ??C (97.8 ??F)10/12/2024 8:25 AM EDTRespiratory Bxit477810/12/2024 8:25 AM EDTOxygen Amouiypwdk55%10/12/2024 8:25 AM EDTInhaled Oxygen Concentration--Dfnjva16 kg (216 lb)12/23/2024 11:48 AM EDT Txwjqp478.3 cm (5' 9 )12/23/2024 11:48 AM EDTBody Mass Index31.908 11:48 AM EDT Plan of Treatment DateTypeDepartmentCare Team (Latest Contact Info)Lmuhjqnsdhg20/02/2025 3:00 PM ESTSocial Work [facility] [address] [place] [phone] Mary Kate Jackson, [facility] [address] [place] [address] 04/14/2025 8:00 AM ESTClinical Support [facility] [address] [facility] [address] [place] [phone] Garry Arce MD [address] [place], [place] [phone] 07/26/2025 10:00 AM EDTOffice Visit [facility] [address] [place] [address] Jacquelyn Cheek PA [address] [place] [address] Health MaintenanceDue DateLast DoneCommentsLung Cancer Screening Shared Decision Naclog85 1975 4556Bxqaunesm34/18/202404/3Diabetes: Retinopathy Screening 3Diabetes: Hemoglobin A1C/03/2025, 02/12/2024, 4COVID-19 Vaccine ( season)/, 11/29/2020, 11/01/2020, Additional history existsInfluenza Vaccine (#1)/ Medicare Annual Wellness (AWV), 07/20/2024, 02/26/2023 Diabetes: Urine Protein Fbgqdymkw97/, 4Pap Smear /02/2025, 02/26/2023, 1Cervical Cancer Ichnlxvln58/17/2028 HPV/Dcnecc5002/27/2028Pneumococcal Vaccine: Pediatrics (0 to 5 Years) and At-Risk Patients (6 to 64 Years)Xtmflawed85/23/2023 Procedures Procedure NamePriorityDate/TimeAssociated DiagnosisCommentsPAP SMEARRoutine 07/20/2024 12:00 AM EDTBI MAMMOGRAM DIAGNOSTIC TGMDCIKTFXuddfmm99/18/2023 Unspecified lump in unspecified breast from Last 3 Months or Most Recently Relevant to Health Maintenance Results * Pap Smear (07/20/2024 12:00 AM EDT)Specimen (Source)Anatomical Location / LateralityCollection Method / VolumeCollection TimeReceived TimeSwabCervical swab / Unknown Narrative Authorizing ProviderResult TypeResult StatusFazio Nurse [facility] ObLAB CYTOLOGY ORDERABLESFinal ResultPerforming OrganizationAddressCity/State/ZIP CodePhone Number EXTERNAL LAB * Bilateral diagnostic mammogram (08/28/2022)Anatomical RegionLateralityModality BreastBilateralMammographySpecimen (Source)Anatomical Location / Laterality Collection Method / VolumeCollection TimeReceived Time Narrative 08/28/2022 12:00 AM EDT PERFORMED AT [facility] LOCATION:[address] Patient: ? KARRI Stafford. ? Exam Date: ? 08/28/2022 : ? 1975 ?Gender:F ? Ordering : ? MARGARETTE CHEEK . ? Admission #: ? [id number] Family : ?Order #: ? [id number] ? CLICK HERE TO VIEW EXAM RADIOLOGY REPORT PROCEDURE: ? MAMMOGRAM DIAGNOSTIC 3D BILATERAL CAD 08/28/2022 13:43 ULTRASOUND BREAST RIGHT LIMITED 08/28/2022 14:30 COMPARISON: ? MG MAMM SCREEN YOUNG W CAD 07/19/2020. INDICATIONS: ? Family history of malignant neoplasm of breast Calculator Name ? NCI Breast Cancer Risk Assessment Tool 5 Year Breast Cancer Risk ? 1.80% Lifetime Breast Cancer Risk ? 18.20% Personal Breast Cancer ?No Personal Ovarian Cancer ? No Treatments ? Radiation Family Cancers ? Aunt-maternal with breast cancer at age 42; Aunt-maternal with breast cancer at age 46; Aunt-maternal with breast cancer at age 54; Mother with breast cancer at age 45; Mother with lung cancer at age 70; Uncle-maternal with lung cancer at age 55; Uncle-maternal with lung cancer at age 57; Father with colon cancer at age 54. LOCATION: ? [facility] BREAST COMPOSITION: ? Scattered areas fibroglandular density. FINDINGS: DIAGNOSTIC CATEGORY 2--BENIGN FINDING: RIGHT BREAST: ??A skin surface marker is present over the upper axillary tail which localizes patient''s palpable lump; no suspicious mammographic abnormality. Ultrasound evaluation demonstrates a small questionable lesion within the subcutaneous fat which appears to have a tract extending to the skin; possible obstructed sebaceous gland cyst. ??Clinical follow-up is recommended. Follow-up ultrasound could be performed to document clearing if needed. LEFT BREAST: ??No significant suspicious finding. ??No significant change has occurred. RECOMMENDATIONS: ROUTINE MAMMOGRAM AND CLINICAL EVALUATION IN 12 MONTHS. PLEASE NOTE: ??A NORMAL MAMMOGRAM DOES NOT EXCLUDE THE POSSIBILITY OF BREAST CANCER. ??A CLINICALLY SUSPICIOUS PALPABLE LUMP SHOULD BE BIOPSIED. Dictated by: Raad Ortiz M.D. on 08/28/2022 at 14:50 Approved by: Raad Ortiz M.D. on 08/28/2022 at 14:55 Procedure Note CONVERSION, GENERIC - 11/16/2022 PERFORMED AT [facility] LOCATION:[address] Patient: KARRI De Oliveira Exam Date: 08/28/2022 : 1975 Gender:F Ordering : MARGARETTE CHEEK . Admission #: [id number] Family : Order #: [id number] CLICK HERE TO VIEW EXAM RADIOLOGY REPORT [...] colon cancer at age 53. LOCATION: [facility] BREAST COMPOSITION: Scattered areas fibroglandular density. FINDINGS: [...] on 08/28/2022 at 14:50 Approved by: Raad Otriz M.D. on 08/28/2022 at 14:55 Authorizing ProviderResult TypeResult StatusAmy Tomy PAIMG BI PROCEDURESFinal Result from Last 3 Months or Most Recently Relevant to Health Maintenance Insurance Care Teams Team MemberRelationshipSpecialtyStart DateEnd Date Josh Tracy MD [address] [place] [phone] PCP - Generalmily Medicine06/17/23 Josh Tracy MD [address] [place] [phone] PCP - [employer]02/10/23 Mary Kate Jackson, [facility] [address] [facility] [address] [place] [address] Social WorkerBehavioral Health05/26/24
--- OUTSIDE RECORDS SUMMARY | 2025-04-12 11:25 | XMS_ITS | Clinical Summary ---
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 Name Role Phone Josh Tracy MD Primary Care Provider [phone] Allergies Active AllergyReactionsCriticalityNoted QhfxVgqftdkhEawpqlfzJlwwaUtgc09/13/2021 Blistering ZkktfhjnmrobmNgwqyXorqpe35/07/2017Cod Liver EkfDtnfOdk97/27/2023odeineHives Rewxga2504/24/2005 DesonideDermatitis,HpzloYdzu60/15/2013 patient unaware but hx of TBI so she may not recall FspdjjocsbfeXmwllWdndnp88/13/2005Erythromycin KbkvFcbhtBrnazw69/13/2021atex Anaphylaxis,Itching,YqxoffrLmff48/13/8542PmnwfybhcwnQpmroDxjmph51/13/2005Sulfa (Sulfonamide Antibiotics)PtmxvWjss48/13/2021 Medications MedicationSigDispense QuantityRefillsLast FilledStart DateEnd DateStatus ARIPiprazole (Abilify) 10 mg tablet Take 15 mg by mouth in the morning.Active wsptou-bdnhtbll-tobytie (Zenpep) 40,000-126,000- 168,000 unit capsule,delayed release(DR/EC) Zenpep 40,000 unit-126,000 unit-168,000 unit capsule,delayed release TAKE 1 CAPSULE BY MOUTH THREE TIMES DAILY09/18/2019Active tiZANidine (Zanaflex) 4 mg tablet Take 8 mg by mouth at bedtime.06/08/2022ctive alpha lipoic acid 600 mg capsule alpha lipoic acid 600 mg capsule TAKE 1 CAPSULE BY MOUTH DAILY11/14/2020ctive atogepant (Qulipta) 60 mg tablet 12/13/2021ctive cyproheptadine (Periactin) 4 mg tablet cyproheptadine 4 mg tablet TAKE 1 TABLET BY MOUTH TWICE DAILYActive estradiol (Estrace) 1 mg tablet Take 0.5 mg by mouth in the morning.06/08/2022ctive hydrOXYzine HCL (Atarax) 50 mg tablet hydroxyzine HCl 50 mg tablet TAKE 1 TABLET BY MOUTH EVERY 8 HOURS NEEDED FOR SCBKSXP5504/27/2019Active insulin glargine (Lantus) 100 unit/mL (3 mL) pen Lantus Solostar U-100 Insulin 100 unit/mL (3 mL) subcutaneous pen INJECT 40 UNITS SUBCUTANEOUSLY TWICE DAILY11/18/2018Active magnesium oxide (Mag-Ox) 400 mg (241.3 mg magnesium) tablet Take 1 tablet by mouth in the morning.02/04/2022ctive meclizine (Antivert) 25 mg tablet meclizine 25 mg tablet TAKE 1 TABLET BY MOUTH FOUR TIMES DAILY FZNDBO0704/27/2019Active pregabalin (Lyrica) 200 mg capsule Take 300 mg by mouth in the morning, afternoon, and at bedtime.06/08/2022ctive cyclobenzaprine (Flexeril) 5 mg tablet cyclobenzaprine 5 mg wkqabi0603/13/2022ctive albuterol 2.5 mg /3 mL (0.083 %) nebulizer solution albuterol sulfate 2.5 mg/3 mL (0.083 %) solution for nebulization INHALE 1 (ONE) vial via NEBULIZER EVERY 4 HOURS NEEDEDActive Wq-H4-dbk-kpxz-oci-lgws-boron (Caltrate 600-D Plus Minerals) 600 mg calcium- 800 unit-40 mg tablet,chewable Chew.Active ascorbic acid (Vitamin C) 1,000 mg tablet Take 1,000 mg by mouth.04/27/2019Active metoclopramide (Reglan) 10 mg tablet Take 10 mg by mouth in the morning, noon, at afternoon, at bedtime,.08/07/2022 Active ALPRAZolam (Xanax) 1 mg tablet TAKE 1 TABLET BY MOUTH DAILY NEEDED FOR ANXIETY MUST LAST 30 DAYS07/11/2022 Active hxwffoapyh-zahnqcbjkmbhk-yjlm (Fioricet) 50-300-40 mg capsule TAKE 1 CAPSULE BY MOUTH EVERY 6 HOURS HXPSFE3508/01/2022ctive lamoTRIgine (LaMICtal) 200 mg tablet Take 1 tablet by mouth in the morning. 891ky6908/21/2022ctive venlafaxine 225 mg 24 hr tablet Take 225 mg by mouth in the morning. with food08/07/2022ctive traZODone (Desyrel) 50 mg tablet Take 50-100 mg by mouth if needed at bedtime.03/11/2023ctive cholecalciferol (Vitamin D3) 1,250 mcg (50,000 unit) tablet Take 2 tablets by mouth at bedtime.Active blood-glucose sensor (Dexcom G6 Sensor) device Indications:Type 2 diabetes mellitus with hyperglycemia, with long-term current use of insulin ([facility])Use as directed. Replace every 10 days 3 each ctive Dexcom G4 ute transmitter (Dexcom G6 Transmitter) device Indications:Type 2 diabetes mellitus with hyperglycemia, with long-term current use of insulin ([facility])Use as directed. Replace every 90 days 1 each ctive atomoxetine (Strattera) 60 mg capsule 80 mg.07/15/2023ctive rimegepant (Nurtec ODT) 75 mg tablet,disintegrating Take 75 mg by mouth.07/02/2023ctive fenofibrate (Lofibra) 160 mg tablet Indications:HypertriglyceridemiaTake 1 tablet (160 mg) by mouth once daily as directed. 30 tablet ctive icosapent ethyL (Vascepa) 1 gram capsule Indications:HypertriglyceridemiaTake 2 capsules (2 g) by mouth with breakfast and with evening meal. 120 capsule 11002/07/2024ctive Additional Information Patient not taking.Reported on 01/12/2025 insulin aspart (NovoLOG Flexpen U-100 Insulin) 100 unit/mL (3 mL) injection pen Indications:Type 2 diabetes mellitus with hyperglycemia, with long-term current use of insulin ([facility])INJECT 15 - 30 UNITS SUBCUTANEOUSLY (UNDER THE SKIN) WITH meals plus sliding scale DIRECTED *maxamount OF 90 UNITS DAILY 75 mL ctive Farxiga 10 mg Take 1 tablet by mouth in the morning.5Active ketorolac (Toradol) 10 mg tablet Take 1 tablet by mouth every 6 (six) hours if needed for pain.08/05/2024tive progesterone (Prometrium) 100 mg capsule Take 100 mg by mouth in the morning.ctive traMADol (Ultram) 50 mg tablet Take 1 tablet by mouth every 4 (four) hours if needed for pain.5Active omega 4-wfw-loy-fish oil (Fish OiL) 1,000 (120-180) mg capsule Take 1,000 mg by mouth once daily as directed.Active furosemide (Lasix) 40 mg tablet Indications:Benign essential HTNTake 1 tablet (40 mg) by mouth 1 (one) time if needed (leg swelling) for up to 1 dose.5Active Additional Information Patient not taking.Reported on 01/12/2025 pen needle, diabetic 32 gauge x 5/32 needle Indications:Type 2 diabetes mellitus with hyperglycemia, with long-term current use of insulin ([facility])Use to inject medication 4 times daily 300 each 5Active Mounjaro 5 mg/0.5 mL pen injector Indications:Type 2 diabetes mellitus with hyperglycemia, with long-term current use of insulin ([facility])Inject 5 mg under the skin 1 (one) time per week. 2 mL 5Active Additional Information Patient taking differently: 7.5 mgsubcutaneous Every 7 days, Reported on 01/12/2025 Lantus Solostar U-100 Insulin 100 unit/mL (3 mL) injection pen Indications:Type 2 diabetes mellitus with hyperglycemia, with long-term current use of insulin ([facility])Inject 20 units under the skin twice daily 30 mL 5Active Additional Information Patient not taking.Reported on 01/12/2025 ezetimibe (Zetia) 10 mg tablet Indications:Mixed hyperlipidemiaTake 1 tablet (10 mg) by mouth once daily as directed. 90 tablet ctive isosorbide mononitrate ER (Imdur) 30 mg 24 hr tablet Indications:Coronary artery disease involving duckwater coronary artery of duckwater heart without angina pectorisTake 1 tablet (30 mg) by mouth once daily as directed. Do not crush or chew. 90 tablet ctive metoprolol succinate XL (Toprol-XL) 25 mg 24 hr tablet Indications:Coronary artery disease involving duckwater coronary artery of duckwater heart without angina pectorisTake 1 tablet (25 mg) by mouth once daily as directed. Do not crush or chew. 90 tablet 507/6Active Additional Information Patient not taking.Reported on 01/12/2025 rosuvastatin (Crestor) 40 mg tablet Indications:Mixed hyperlipidemiaTake 1 tablet (40 mg) by mouth at bedtime. 90 tablet 507/6Active metoprolol tartrate (Lopressor) 25 mg tablet Indications:PalpitationsTake 0.5 tablets (12.5 mg) by mouth two times daily. Stop metoprolol succinate 90 tablet /6Active warfarin (Coumadin) 10 mg tablet Take 10 mg by mouth in the morning.Active dihydroergotamine (DHE) 1 mg/mL injection Inject 1 mg under the skin three times daily.5Active prochlorperazine (Compazine) 10 mg tablet Take 1 tablet by mouth every 6 (six) hours.5Active clopidogrel (Plavix) 75 mg tablet Indications:S/P drug eluting coronary stent placementTake 1 tablet (75 mg) by mouth once daily as directed. 90 tablet 506Active glipiZIDE (Glucotrol) 10 mg tablet Indications:Type 2 diabetes mellitus with hyperglycemia, with long-term current use of insulin ([facility])TAKE 1 TABLET BY MOUTH EVERY DAY WITH MEALS 90 tablet 5Active metFORMIN (Glucophage) 1,000 mg tablet Indications:Type 2 diabetes mellitus with hyperglycemia, with long-term current use of insulin ([facility])TAKE 1 TABLET BY MOUTH EVERY MORNING & AT BEDTIME 180 tablet 5Active Mounjaro 7.5 mg/0.5 mL pen injector Indications:Type 2 diabetes mellitus with hyperglycemia, with long-term current use of insulin ([facility])INJECT 7.5mg SUBCUTANEOUSLY (UNDER THE SKIN) once a week 2 mL 5Active Active Problems ProblemNoted DateDiagnosed DateEssential /01/2025bnormal TSH 08/10/2024Encounter for long-term (current) use of wwvhzjdwrcy98/31/2025Medicare annual wellness visit, lqpumfddxs42/31/2025Acute non-recurrent pansinusitis 12/30/5120Rmpympxegduy02/30/2024Other chronic huefwylmktmk63/30/2024Rectal bugyzglx22/30/8415Uccrglr98/02/2024 Overview (01/10/2024): Last Assessment & Plan: History suggestive UTI and treat. Take levaquin for infection and use pyridium for symptoms. Send urine for culture. Increase water intake and cranberry juice. Use motrin or tylenol for discomfort. Trochanteric bursitis, left hip08/06/2023Trochanteric bursitis, right hip 08/06/2023DD (attention deficit disorder) without emtnndbjcfvwf38/08/2024 07/29/2023 Overview (07/29/2023): Last Assessment & Plan: Symptoms improved with medication but wears off and increase dose. Last Assessment & Plan: Worsening symptoms and try strattera. Lipoma of lower backLump of skin of back Muscle spasmTrochanteric bursitis of both hips12/17/2022 03/01/2023rachial plexus lfugpjubgp08Enthesopathy of hip vhmvpg98MyalgiaOth cond assoc w female genital organs and menstrual cycleVaginal eoynhgi7912/11/2022 03/01/20239614Evyowdoe91MDD (major depressive disorder), recurrent episode, mild/ Overview (07/29/2023): Last Assessment & Plan: Symptoms controlled with medication and continue. Last Assessment & Plan: Symptoms controlled with medication and continue. Coronary artery disease involving duckwater coronary artery of duckwater heart without angina ftnpuvil36/19/2023 Assessment & Plan (03/01/2023 1:29 PM EDT): [...] all medications. S/P drug eluting coronary stent hepjhlsid45/19/2023 Overview (08/29/2022): 1. 07/06/22 Coronary angiogram shows severe single-vessel coronary artery disease with 85% stenosis of the mid RCA which was reduced to 0% by a Synergy XD drug- eluting stent. 2. Mild disease in the LAD, circumflex and distal RCA. Normal left main. Assessment & Plan (03/01/2023 1:29 PM EDT): Stable Assessment & Plan (08/29/2022 2:23 PM EDT): Stable, continue DAPT x 1 year Adhesive capsulitis of left oakehnre43/19/2296Pmlpxhi02/19/2023epression 08/29/2022iabetes /19/2023Neuropathic pain08/29/2022Optic nerve haqwdtmu06/19/8274Bszceejzchlrns66/19/4806Xjajajz84/19/2023ervical radiculopathy at C6008/29/2022ilateral occipital xbsuhycjk54/19/2023 Jozwuzctvlsqzpnpfovf30/19/2023Type 2 diabetes mellitus with polyneuropathy 08/29/2022Type 2 diabetes mellitus without complication, without long-term current use of tkmkmkw9207/06/2022 Assessment & Plan (07/06/2022 12:40 PM EST): Diabetes is uncontrolled, A1C quite elevated Referral to endocrinology completed. Mixed gdjtkztkesukza64/24/2023 Assessment & Plan (03/01/2023 1:28 PM EDT): [...] repeat labs in 2 months Benign essential HTN07/06/2022 Assessment & Plan (08/29/2022 2:22 PM EDT): Hypertension is well controlled 110/60 stop lisinopril/HCTZ, will start toprol 12.5 mg daily for CAD and HTN Assessment & Plan (07/06/2022 12:35 PM EST): Hypertension is well controlled 105/57 Continue lisinopril/HCTZ, lasix Tobacco cugbfxnpct83/24/2023 Assessment & Plan (08/29/2022 2:23 PM EDT): Tobacco use - she has quit smoking Assessment & Plan (07/06/2022 12:39 PM EST): Currently pt is attempting to quit smoking- script for nicotene patch sent to pharmacy Mild intermittent asthma without rcapzezdoqzi65/24/2023 Assessment & Plan (07/06/2022 12:39 PM EST): F/U with PCP and pulmonary Unstable nykmly7007/06/2022 Assessment & Plan (07/06/2022 12:34 PM EST): New pt presented with concerning s/s of angina with multiple co-morbidities/risk factors- DM type 2, HTN, HPL, Obesity, Family h/o early CAD/ID, current smoker. Will send for cardiac cath to assess for significant coronary stenosis. ASCVD- 10 year risk of CVD 15.1%; 10 year risk with optimal risk factor medication 0.6% Increase lipitor to 80 mg from 40 mg, recommended referral to endocrinology for better glycemic management- referral sent. HAWTHORNE (dyspnea on exertion)07/06/2022 Assessment & Plan (08/29/2022 8:53 AM EDT): stable Assessment & Plan (07/06/2022 12:37 PM EST): Will order echocardiogram to assess cardiac function, Cardiac cath to assess for CAD. F/U with PCP and pulmonary Edema of both lower vskapxzfmoz37/24/2023 Assessment & Plan (08/29/2022 2:23 PM EDT): Stable, no edema today- continue lasix 40 mg daily Assessment & Plan (07/06/2022 12:38 PM EST): Currently is well controlled after having started lasix per PCP Family history of early CAD07/06/2022 Assessment & Plan (07/06/2022 12:38 PM EST): Both parents with early CAD Mixed hyperlipidemia due to type 2 diabetes iwyjrkdx16/24/2023 Overview (07/06/2022): Added automatically from request for surgery [id number] Assessment & Plan (08/29/2022 8:53 AM EDT): Continue statin Degeneration of lumbosacral intervertebral disc1Postconcussion syndrome 02/28/2021Nonpsychotic mental disorder due to organic brain wowxoo381Pain in joint of left cexniyyp20/Memory vyjhpjr52/13/2021Panic /14/2020Complex regional pain zfvjheuh32/07/2020Generalized anxiety kjvmbidy68/15/2020Severe major depression, single episode, without psychotic zjcjzkho55/15/2020Chronic pain gubmyyok09/15/2019 Assessment & Plan (08/29/2022 8:53 AM EDT): F/u with PCP Medication overuse kqjpphad43/15/2019Cervico-occipital isbblnxbr23/28/2017Closed fracture of coronoid process of ulna01/30/2016Fracture of ulna01/30/2016Obesity affecting , znnowmzvmr10Migraine02/15/2009Polycystic eiahgaz1102/15/2009Chronic migraine without aura, not intractable, without status ubkskozfcic04regnancy complicated by tobacco use02/15/2009 03/01/2023hronic obstructive asthma, gculoqdxgof03/13/2005 Resolved Problems ProblemNoted DateDiagnosed DateResolved DateSOB (shortness of breath)04/02/2022 08/29/2022 Assessment & Plan (08/29/2022 8:52 AM EDT): SOB is Encounters DateTypeDepartmentCare OupmXfuhwbaxbmb08/03/2025Telephone [facility] [address] [place] [address] [place] [address] Dior Pham LPN 03/08/2025[facility] at [address] [phone] Madeline Guerin PA-C Type 2 diabetes mellitus with hyperglycemia, with long-term current use of insulin ([facility])03/08/2025Telephone [facility] at [address] [phone] Madeline Guerin PA-C 03/07/2025[facility] at [address] [phone] Madeline Guerin PA-C Type 2 diabetes mellitus with hyperglycemia, with long-term current use of insulin ([facility])03/04/2025[facility] at [address] [phone] Madeline Guerin PA-C Type 2 diabetes mellitus with hyperglycemia, with long-term current use of insulin ([facility])03/02/[facility] [address] [place] [facility] [place] [address] Yajaira Jones MA 02/08/2025[facility] [address] [place] [facility] [place] [place] [address] Deanne Jacobson MA S/P drug eluting coronary stent ykskaefzp13/10/2025Telephone [facility] [address] [place] [facility] [place] [place] [address] Deanne Jacobson MA 01/12/2025 10:30 AM EDTOffice Visit [facility] [address] [place] [facility] [place] [address] Farzad Costa MD Palpitations (Primary Dx)01/12/2025Orders Only [facility] [address] [place] [address] Deanne Jacobson MA Sleep apnea, unspecified type (Primary Dx)from Last 3 Months Immunizations ImmunizationAdministration DatesNext DueModerna SARS-CoV-2 Jszxitroiqv39/20/2021 ,11/01/2020 Family History Medical HistoryRelationNameCommentsHeart attackFatherCancerMotherCoronary artery diseaseMotherHeart attackMotherRelationNameStatusCommentsFatherDeceasedMother Social History Tobacco UseTypesPacks/DayYears UsedDateSmoking Tobacco: LzojdjYomvcksgvw956 07/26/1996 - 3Passive Smoke Exposure: NeverSmokeless Tobacco: Never Tobacco Cessation:Counseling Given: Not Answered Alcohol UseStandard Drinks/WeekCommentsYes0 (1 standard drink = 0.6 oz pure alcohol)yearlyUT Safety & EnvironmentAnswerDate RecordedFear of Current or Ex-PartnerNot on file07/04/2023Emotionally AbusedNot on file07/04/2023hysically AbusedNot on file07/04/2023Sexually AbusedNot on file07/04/2023hysically or Sexually AbusedNot on file07/04/2023CommentsNoSex and Gender Information ValueDate RecordedSex Assigned at OzdmwJyjdfv85/25/2025 8:53 AM EDTLegal Sex Jkkbua4911/08/2021 11:48 PM EDTGender BtciavphIedklj99/25/2025 8:53 AM EDTSexual OrientationChoose not to /25/2025 8:53 AM EDT Last Filed Vital Signs Vital SignReadingTime TakenCommentsBlood Cngxfzfk504/6809 9:52 AM EDT Ccwyh8421 9:52 AM EDTTemperature--Respiratory Gmkd9092 10:44 AM EDTOxygen Thpejzhjif96%01/12/2025 9:52 AM EDTInhaled Oxygen Concentration-- Ayksiw676 kg (222 lb)01/04/2025 8:59 AM MJOBmpohy986.3 cm (5' 9 )01/12/2025 9:52 AM EDTBody Mass Index32.7804 9:06 AM EDT Plan of Treatment DateTypeDepartmentCare Team (Latest Contact Info)Eyrpmqobooq26/02/2025 10:30 AM ESTOffice Visit [facility] [address] [place] [address] Farzad Costa MD [address] [place] [address] 04/19/2025 8:30 AM ESTOffice Visit [facility] [address] [place] [phone] Richard Colin MD [address], [address] [place] [address] Health MaintenanceDue DateLast DoneCommentsCT Jlkmicsmyfsh03/21/1975Colonoscopy 1974Colorectal Cancer Sirxfebkn76/21/1975FIT-DNA1974FIT1974 FOBT1974Medicare Annual Wellness (AWV)1974 6203Awdzuawozuywu31/21/1975 Diabetes: Retinopathy Tmdampueo57/21/1985Depression Myshffdmz97/21/1987Diabetes: Urine Protein Xufelpcfc59/21/1994Hepatitis B Vaccines (1 of 3 - 19+ 3-dose series)1993Adult Irprnvc1608/31/1996HPV/Ukvmja6608/31/20040070Uijfkdfgc32/18/2025 08/28/2022Zoster Vaccines (1 of 2)2024Diabetes: Hemoglobin A1C12/23/2024 09/22/2024, 06/23/2024, 02/12/2024, Additional history existsCOVID-19 Vaccine (2024- season), 11/29/2020, 11/29/2020, Additional history existsInfluenza Vaccine (#1)ervical Cancer Qhnuduryw49/10/2028Pap Smear3/02/2025, 02/26/2023, 07/11/2020 Pneumococcal Vaccine: Pediatrics (0 to 5 Years) and At-Risk Patients (6 to 64 Years)Dtxpfossf00/23/2023HIB VaccinesAged OutNo longer eligible based on patient's age to complete this topicHPV VaccinesAged OutNo longer eligible based on patient's age to complete this topicIPV VaccinesAged OutNo longer eligible based on patient's age to complete this topicMeningococcal B VaccineAged OutNo longer eligible based on patient's age to complete this topicMeningococcal VaccineAged OutNo longer eligible based on patient's age to complete this topic Rotavirus VaccinesAged OutNo longer eligible based on patient's age to complete this topic Medical Devices ImplantedTypeAreaManufacturerDevice IdentifierShelf Expiration DateModel / Serial / LotStent,Synergy Mr 3.50 X 20 - [id number] Implanted:Qty: 1 on 07/27/2022 by Eliceo Menon [facility] Eluting StentN/A: Shikha [id number] 10/30/[id number] / / [id number] Procedures Procedure NamePriorityDate/TimeAssociated DiagnosisCommentsPOCT GLYCOSYLATED HEMOGLOBIN (HGB A1C)Pibkksu9909/22/2024 9:55 AM EDT Type 2 diabetes mellitus with hyperglycemia, with long-term current use of insulin ([facility]) from Last 3 Months or Most Recently Relevant to Health Maintenance Results * POCT glycosylated hemoglobin (Hb A1C) (09/22/2024 9:55 AM EDT)ComponentValue Ref RangeTest MethodAnalysis TimePerformed AtPathologist SignatureHemoglobin A1C5.6SOURCE:bloodLot Number#[id number] DATE#07/2026Specimen (Source)Anatomical Location / LateralityCollection Method / VolumeCollection TimeReceived Time BloodVenous blood specimen / Pkgpljj7209/22/2024 9:55 AM EDT Narrative Authorizing ProviderResult TypeResult StatusMadeline RASMUSSENOINT OF CARE TEST ENTER/EDIT ORDERABLESFinal Result from Last 3 Months or Most Recently Relevant to Health Maintenance Insurance Advance Directives * Full Code (Latest Code Status on File) Date ActivatedDate InactivatedComments07/27/2022 2:11 PM07/27/2022 9:20 PM Care Teams Team MemberRelationshipSpecialtyStart DateEnd Date Josh Tracy MD [address] [place] [address] [facility] - Otgqtqv11/20/23
--- OUTSIDE RECORDS SUMMARY | 2025-04-12 11:25 | XMS_ITS | Clinical Summary ---
Author Organization [facility] Address [id number] [address] [place] [address] Care Team Providers Care Anchor Tack Puller Name Role Phone Josh Tracy MD Primary Care Provider [phone] Allergies Active AllergyReactionsCriticalityNoted DateCommentsCiprofloxacinOther (See Comments)01/17/20176624NkqfrzyAyagEvk60/23/2018DesonideDermatitis,GI DisturbanceHigh 11/24/2012 patient unaware but hx of TBI so she may not recall TvkurouojtpcKzjdCbb56/23/8136ZkcyqDddppyiworpYhyt05/23/2018PenicillinsRashLow 03/04/2018Sulfa (Sulfonamide Antibiotics)QrksMkl3103/04/2018 Medications MedicationSigDispense QuantityRefillsLast FilledStart DateEnd DateStatus metaxalone (SKELAXIN) 800 mg tablet Take 800 mg by mouth 3 (three) times a day.Active topiramate (TOPAMAX) 100 mg tablet Take 100 mg by mouth 2 (two) times a day.Active ALPRAZolam (XANAX) 1 mg tablet Take 1 mg by mouth 3 (three) times a day as needed for anxiety.Active venlafaxine XR (EFFEXOR-XR) 150 mg 24 hr capsule Take 150 mg by mouth daily.Active pregabalin (LYRICA) 50 mg capsule Take 50 mg by mouth 3 (three) times a day.Active prochlorperazine (COMPAZINE) 10 mg tablet Take 10 mg by mouth every 6 (six) hours as needed for nausea or vomiting.Active atorvastatin (LIPITOR) 40 mg tablet Take 40 mg by mouth nightly.Active hydrOXYzine (ATARAX) 50 mg tablet Take 50 mg by mouth nightly.Active meclizine (ANTIVERT) 25 mg tablet Take 25 mg by mouth 4 (four) times a day as needed for dizziness.Active metFORMIN (GLUCOPHAGE) 1000 mg tablet Take 1,000 mg by mouth 2 (two) times a day with meals.Active amitriptyline (ELAVIL) 25 mg tablet Take 25 mg by mouth nightly.Active aspirin 81 mg Take 81 mg by mouth daily.Active ascorbic acid, vitamin C, (vitamin C) 1000 mg tablet Take 1,000 mg by mouth 2 (two) times a day.Active calcium carbonate (OS-KUNAL) 600 mg (1,500 mg) tablet Take 600 mg by mouth 2 (two) times a day with meals.Active insulin glargine (LANTUS) 100 unit/mL injection Inject 35 Units under the skin 2 (two) times a day.Active insulin aspart U-100 (NovoLOG) 100 unit/mL injection Inject under the skin 3 (three) times a day before meals.Active magnesium oxide (MAG-OX) 400 mg tablet Take 400 mg by mouth daily.Active ketorolac (TORADOL) 30 mg/mL (1 mL) injection Inject 30 mg into the appropriate muscle every 6 (six) hours as needed for pain. Active sennosides-docusate sodium (SENOKOT-S) 8.6-50 mg Take 2 tablets by mouth in the morning. 30 tablet 2Active Active Problems ProblemNoted DateDiagnosed DateSOB (shortness of breath)04/02/2022 Social History Tobacco UseTypesPacks/DayYears UsedDateSmoking Tobacco: Every DayCigarettes Smokeless Tobacco: Never Tobacco Cessation:Ready to Q uit: Not Asked; Counseling Given: Not Answered Alcohol UseStandard Drinks/WeekCommentsNo0 (1 standard drink = 0.6 oz pure alcohol)AUDIT-CAnswerDate RecordedFrequency of Alcohol ConsumptionNever 05/18/2019Average Number of DrinksNot on file05/18/2019Frequency of Binge DrinkingNot on file05/18/2019ChildcareAnswerDate RecordedChildcareUnknown 10/22/2018EmploymentAnswerDate KpdkrvsmZkbyaxrmkzAzcomsw76/12/2019Hunger ScreeningAnswerDate RecordedWithin the past 12 months we worried whether our food would run out before we got money to buy more.Never True11/14/2022Within the past 12 months the food we bought just didn't last and we didn't have money to get more.Never True11/14/2022urpose - LifeAnswerDate RecordedPurpose and direction in orbwZpmcfmo05/11/2021CommentsNoSex and Gender Information ValueDate RecordedSex Assigned at BirthNot on fileLegal ZpfIearzy49/06/2015 11:34 AM EDTGender IdentityNot on fileSexual OrientationNot on file Last Filed Vital Signs Vital SignReadingTime TakenCommentsBlood Cszbsqlc496/80106/02/2021 6:48 AM EST Mphiv889904/02/2022 7:36 AM JLQFnvmodjwwfb39.3 ??C (97.4 ??F)04/02/2022 4:49 AM ESTRespiratory Xjce7588 7:36 AM ESTOxygen Upayonbokh59%04/02/2022 7:36 AM ESTInhaled Oxygen Concentration--Xsfcri198 kg (238 lb)11/14/2022 8:55 AM EDT Axbxxf252.3 cm (5' 9 )11/14/2022 8:55 AM EDTBody Mass Index35.15011/14/2022 8:55 AM EDT Plan of Treatment Health MaintenanceDue DateLast DoneCommentsDepression Rskeqifvz64/21/1987Tobacco Cmtgitzik26/21/1987DTaP,Tdap and Td Vaccines (1 - Tdap)1993Adult BMI Ykasyrpwr65/05/183939/09/2022Zoster (Shingles) Vaccine (1 of 2)2024OVID- 19 Vaccine (3 - 2024- season)507/, 11/01/2020Influenza Vaccine 01/11/2025Pap Smear/ Medical Devices Not on file Insurance Care Teams Team MemberRelationshipSpecialtyStart DateEnd Date Josh Tracy MD PCP - GeneralFamily Whwdiyhg72/23/18
--- OUTSIDE RECORDS SUMMARY | 2025-04-12 11:25 | XMS_ITS | Clinical Summary ---
Author Organization [facility] Address [address] [place], [place] [address] Care Team Providers Care Ms Sql Developer Name Role Phone Josh Tracy MD Primary Care Provider [phone] Deja Martins PRESSER FIRST Unavailable [phone] Allergies Active AllergyReactionsCriticalityNoted DateCommentsCiprofloxacinUnknown 01/17/20173090LnvpocmUouke76/13/8973BxotyxfnlstuzlagNsrrwxhejwl64/02/2024 Pt indicates this is no longer causing restlessness DesonideOther: See ZtyifmlhUpfc58/15/2013 patient unaware but hx of TBI so she may not recall EklvhsqqccqyKkgjo65/13/1501NtnyoOfupzrk22/13/2005LatexAnaphylaxis,ItchingHigh 04/24/2005Penicillin XAffzi3404/24/2005Sulfa (Sulfonamide Antibiotics)Hives 04/24/2005 Medications * This document contains information received from the source organization and may not represent a complete record from that organization. MedicationSigDispense QuantityRefillsLast FilledStart DateEnd DateStatus EXEL SYRINGE 3 ML 25 X 5/8 Indications:Other general symptoms(780.99)use with DHE 10 Active prochlorperazine (COMPAZINE) 10 mg tablet Take 10 mg by mouth every 6 hours as needed.Active venlafaxine ER (EFFEXOR XR) 150 mg 24 hr capsule Take 225 mg by mouth once daily. Active metFORMIN (GLUCOPHAGE) 1,000 mg tablet Take 1,000 mg by mouth twice daily with meals.Active ALPRAZolam (XANAX) 0.5 mg tablet 1 mg.07/18/2016Active ammonium lactate (LAC-HYDRIN) 12 % lotion ammonium lactate 12 % fapdcf1212/02/2018Active ONETOUCH ULTRA BLUE TEST STRIP test strip use test strip to test BLOOD SUGAR FOUR TIMES DAILY10/09/2019Active calcium carbonate (CALTRATE) 600 mg calcium (1,500 mg) tab Take 600 mg by mouth.Active cholecalciferol (VITAMIN D3) 50 mcg (2,000 unit) tablet Take 1 tablet by mouth once daily.10/12/2019Active hydrOXYzine HCl (ATARAX) 50 mg tablet Take 50 mg by mouth four times daily as needed. 10/09/2019Active magnesium oxide (MAG-OX) 400 mg (241.3 mg magnesium) tablet Take 1 tablet by mouth once daily.10/09/2019Active meclizine (ANTIVERT) 25 mg tab Take 25 mg by mouth four times daily as needed.10/09/2019Active Alpha Lipoic Acid 600 mg cap Take 1 capsule by mouth once daily.11/14/2020ctive tiZANidine (ZANAFLEX) 4 mg tablet Take 4 mg by mouth every 6 hours as needed.Active OTC NUTRITIONAL SUPPLEMENT Patient uses medical marijuana, gummies,powder.Active furosemide (LASIX) 40 mg tablet Take 40 mg by mouth once daily.05/14/2021ctive insulin aspart U-100 (NOVOLOG) 100 unit/mL Inject subcutaneously.Active keTORolac (TORADOL) 30 mg/mL (1 mL) soln INJECT 1mL TWICE DAILY ISYXKP0403/13/2021ctive Pregabalin (LYRICA) 200 mg capsule pregabalin 200 mg capsule TAKE 1 CAPSULE BY MOUTH THREE TIMES DAILYActive QULIPTA 60 mg tablet 12/13/2021ctive clopidogrel (PLAVIX) 75 mg tablet 10/05/2022ctive cyclobenzaprine (FLEXERIL) 5 mg tablet 10/03/2022ctive FARXIGA 10 mg tablet 10/05/2022ctive estradiol (ESTRACE) 1 mg tablet TAKE 1 TABLET BY MOUTH DAILY FOR 14 DAYS then TAKE 1 TABLET BY MOUTH twice a week08/07/2022ctive Fenofibrate (LOFIBRA) 160 mg tablet 10/05/2022ctive glipiZIDE (GLUCOTROL) 10 mg tablet 10/05/2022ctive metoprolol succinate ER (TOPROL XL) 25 mg 24 hr tablet 10/05/2022ctive nystatin (MYCOSTATIN) powder APPLY 1 application TO THE AFFECTED AREA(S) THREE TIMES DAILY07/31/2022ctive prochlorperazine (COMPAZINE) 25 mg suppository 1 Suppository by RECTAL route every 8 hours as needed for nausea/vomiting. 20 Suppository ctive Atomoxetine 80 mg capsule Take 1 capsule by mouth once daily.01/08/2024ctive rosuvastatin (CRESTOR) 40 mg tablet Take 40 mg by mouth.07/29/2023ctive acetaminophen 300 mg-caffeine 40 mg-butalbital 50 mg (FIORICET) per capsule Take 1 capsule by mouth every 6 hours as needed.08/01/2022ctive MOUNJARO 2.5 mg/0.5 mL pen injector Inject 5 mg subcutaneously.04/06/2024ctive dihydroergotamine (DHE) 1 mg/mL injection Inject 1 mg subcutaneously every 8 hours. As needed for migraine. No more than 2 injections/day or treating 2 injections per day. 10 mL 605Active insulin glargine,hum.rec.anlog (LANTUS SOLOSTAR U-100 INSULIN SQ) See Instructions, Instructions: 40 units SubQ BID10/08/2018ActiveHospital, Clinic, or Other Facility Administered MedicationOrdered DoseRouteFrequencyStart DateEnd DateStatus onabotulinum toxin type A 200 Units injection (BOTOX) 200 UnitsIMEVERY 12 WEEKS03/11/2024ctive Active Problems ProblemNoted DateDiagnosed DateStatus fhfzxhnunzg75/27/2024ilateral occipital soawmytfh06/28/2017Chronic obstructive asthma, mcnygxcifqh24/13/2005 Resolved Problems ProblemNoted DateDiagnosed DateResolved DateMigraine without aura, without mention of intractable migraine without mention of status wbfvibjhjmd11/13/2005 08/01/2016 Encounters DateTypeDepartmentCare NgjrOdajvxbqxmb54/29/2025 10:[facility] [address] [place] [address] Status migrainosus (Primary Dx)03/09/2025 2:30 PM [facility] [address] [place] [address] Status migrainosus (Primary Dx)03/09/2025 11:[facility] [address] [place] [address] Adele Yi PA-C Status migrainosus (Primary Dx)03/09/2025Telephone Neurology [address] [place] [address] [facility] CenterKinga burks, CHIEF ENTERPRISE ARCHITECT.PRESSER FIRST Xkuaiklt64/28/9422Pjmsti10/27/2025Telephone Neurology [address] [place] [address] [facility] CenterKinga burks, CHIEF ENTERPRISE ARCHITECT.PRESSER FIRST Rxdyobmg15/21/2025Telephone Neurology [address] [place] [address] Kinga Ibarra, CHIEF ENTERPRISE ARCHITECT.PRESSER FIRST 01/18/2025Telephone Neurology [address] [place] [address] [facility] CHIEF ENTERPRISE ARCHITECT.PRESSER FIRST Forms (c9)from Last 3 Months Social History Tobacco UseTypesPacks/DayYears UsedDateSmoking Tobacco: Every DayCigarettes Smokeless Tobacco: Current Tobacco Cessation:Ready to Q uit: Not Asked; Counseling Given: Not Answered Alcohol UseStandard Drinks/WeekCommentsNo0 (1 standard drink = 0.6 oz pure alcohol)PHQ-2AnswerDate RecordedPHQ-2 /28/2025Area Deprivation Index AnswerDate RecordedNational Score (1-100), lower number is lower risk65 10/10/2022State Score (1-10), lower number is lower riqs5463Data from: https://www.neighborhoodatlas.medicine.[facility].edu/. Last address used for lvysyhaohmw[address]CommentsNoSex and Gender InformationValueDate RecordedSex Assigned at BirthNot on fileLegal SexFemale 04/13/2012 9:47 AM ESTGender IdentityNot on fileSexual OrientationNot on file Last Filed Vital Signs Vital SignReadingTime TakenCommentsBlood Yqgzcmyz643/6210 11:07 AM EDT Pxsrv473303/10/2025 11:07 AM VILSvckwvmoxka73.4 ??C (97.5 ??F)12/04/2024 8:53 AM EDTRespiratory Sfih647612/04/2024 8:53 AM EDTOxygen Mrwvdwpvxr82%10/23/2019 8:53 AM EDTInhaled Oxygen Concentration--Nyyqyy43.6 kg (202 lb)04/17/2022 10:11 AM PIRRwtfcw916.3 cm (5' 9 )04/17/2022 10:11 AM ESTBody Mass Index29.8304/17/2022 10:11 AM EST Plan of Treatment Health MaintenanceDue DateLast DoneCommentsAnnual PCP Team Chronic Disease Visit 1992Anxiety Tvqgomual26/21/1993Depression Nluktkbrz64/21/1993HIV Screening 1992Hepatitis C Lajiurjnc05/21/1993DTaP,Tdap,Td Vaccine (1 - Tdap) 1993Hepatitis B Vaccine (1 of 3 - 19+ 3-dose series)1993Cervical Cancer Nvjktbczu67/21/1996CT Chqjcvcjguvz81/21/2020Cologuard (FIT-DNA)09/01/2019 Uztvdrxxodw18/21/2020Colorectal Cancer Iigzalfot86/21/2020Fecal Occult Blood 09/01/2019Lipid Homnlxfky85/21/2584Ksgmswdsdchcz74/21/2020Mammogram Screening /, 08/28/2022Shingrix Vaccine (1 of 2)5Covid-19 Vaccine (2024- season), 11/29/2020, 11/01/2020 Influenza Vaccine (#1)/3Diabetes Gjzrlwqms64/13/2028 09/22/2024, 06/23/2024, 02/12/2024, Additional history existsPneumococcal Vaccine: 50+Gcedvkvsq09/23/2023 Insurance * Guarantor: Jacquelyn Bond TypeRelation to PatientDate of BirthPhone Billing AddressWorkers WoesNeep43/21[birth year][address] [place] [address] , [address] [address] * Guarantor: Jacquelyn Bond TypeRelation to PatientDate of BirthPhone Billing AddressSelf DquLjyk38 [address] [place] [address] Care Teams Team MemberRelationshipSpecialtyStart DateEnd Date Josh Tracy MD PCP - GeneralFamily Medicine08/01/16 Deja Martins CNP Family Medicine09/17/16
--- OUTSIDE RECORDS SUMMARY | 2025-04-12 11:25 | XMS_ITS | Clinical Summary ---
Author Organization [facility] Address [address], [address] [place] [address] Care Team Providers Care Merchandise Deliverer Name Role Phone Josh Tracy MD Primary Care Provider + Allergies Active AllergyReactionsCriticalityNoted DateCommentsCiprofloxacinHives,Other (See Comments)Lylpsy0301/17/2017 Other Reaction(s): Unknown, Unknown, Unknown Other Reaction(s): Other (See Comments), Unknown Cod Liver LxhAvscNws96/27/2023CodeineDizziness or Vertigo,Hives,Itching,Nausea And Vomiting,JntyNwuvra88/13/2005 Other Reaction(s): Unknown Patient reports she can take meds containing codeine without hives DesonideOther (See Comments),WfsrJuyw20/15/2013 Other Reaction(s): Dermatitis, Dermatitis, GI Disturbance, Other: See Comments, Unknown Other Reaction(s): hives Other Reaction(s): Dermatitis, GI Disturbance patient unaware but hx of TBI so she may not recall patient unaware but hx of TBI so she may not recall ErythromycinHives,Itching,OzkjLtzmlg68/13/2005 Other Reaction(s): Not available Erythromycin KfjqVccboFbdbzo93/13/2021 Other Reaction(s): Unknown LatexAnaphylaxis,LrndeirYnft04/13/2005 Other Reaction(s): Unknown PenicillinsHives,Itching,EevzDhdggh44/13/2005 Other Reaction(s): Unknown Sulfa AntibioticsDiarrhea,Hives,Itching,Nausea And Vomiting,HcdaNyue14/13/2005 Other Reaction(s): Unknown Wound Dressing UepclusoXbaf39/13/2021 Other Reaction(s): Unknown Blistering Zinc YdptfJwrfOsr15/27/2023 Medications MedicationSigDispense QuantityRefillsLast FilledStart DateEnd DateStatus ketorolac (TORADOL) 30 MG/ML injection Inject 1 mL into the muscle every 6 hours as neededActive medical marijuana Take by mouth.Active traZODone (DESYREL) 50 MG tablet Take 1 tablet by mouth nightlyActive venlafaxine 225 MG extended release tablet Take 1 tablet by mouth every morningActive traMADol (ULTRAM) 50 MG tablet Take 1 tablet by mouth every 4 hours as needed.08/05/2024tive tiZANidine (ZANAFLEX) 4 MG tablet Take 1 tablet by mouth07/27/2024tive MOUNJARO 5 MG/0.5ML SOAJ pen INJECT 5mg SUBCUTANEOUSLY (UNDER THE SKIN) once a weekActive rosuvastatin (CRESTOR) 40 MG tablet Take 1 tablet by mouth jjctdec7107/29/2023ctive progesterone (PROMETRIUM) 100 MG CAPS capsule Take 1 capsule by mouth/ctive prochlorperazine (COMPAZINE) [address] 1 suppository rectally every 8 hours as eyuaad2904/08/2024ctive pregabalin (LYRICA) 300 MG capsule 1 capsule.Active Onabotulinumtoxin A (BOTOX) 200 units injection Inject 200 Units into the bnullo6803/11/2024ctive [place]-3 1000 MG CAPS Take 1 capsule by mouthActive metoprolol succinate (TOPROL XL) 25 MG extended release tablet Take 1 tablet by mouth02/07/2024ctive metoclopramide (REGLAN) 10 MG tablet Take 1 tablet by mouth in the morning, at noon, in the evening, and at bedtime Active metFORMIN (GLUCOPHAGE) 1000 MG tablet Take 1 tablet by mouth02/25/2024ctive meclizine (ANTIVERT) 25 MG tablet 1 tabletActive Manganese Sulfate POWD Take by mouthActive magnesium oxide (MAG-OX) 400 MG tablet Take 1 tablet by mouth dailyActive lisinopril-hydroCHLOROthiazide (PRINZIDE;ZESTORETIC) 10-12.5 MG per tablet Take 1 tablet by mouth dailyActive Lancets (ONETOUCH DELICA PLUS OJIVKZ56J) MISC USE VMKFSODM70/05/2025tive ketorolac (TORADOL) 10 MG tablet Take 1 tablet by mouth every 6 hours as bfnymm3108/05/2024tive isosorbide mononitrate (IMDUR) 30 MG extended release tablet Take 1 tablet by mouth02/07/2024ctive LANTUS SOLOSTAR 100 UNIT/ML injection pen INJECT 30 UNITS SUBCUTANEOUSLY (UNDER THE SKIN) TWICE DAILY04/08/2024ctive Insulin Aspart FlexPen 100 UNIT/ML SOPN INJECT 15 - 30 UNITS SUBCUTANEOUSLY (UNDER THE SKIN) WITH meals plus sliding scale DIRECTED *maxamount OF 90 UNITS DAILY11/18/2023ctive hydrOXYzine HCl (ATARAX) 50 MG tablet Take 1 tablet by mouth nightly as aybcwy5709/09/2024tive Glucose Blood (BLOOD GLUCOSE TEST STRIPS 333) STRP 1 each 4 times daily11/18/2023ctive glipiZIDE (GLUCOTROL) 10 MG tablet Take one tablet by mouth with a meal02/25/2024ctive gentamicin (GARAMYCIN) 0.3 % ophthalmic solution instill 2 (TWO) DROPS IN BOTH EYES EVERY 4 HOURS FOR 7 DAYS08/27/2024tive fenofibrate 160 MG tablet Take 1 tablet by mouth02/07/2024ctive ezetimibe (ZETIA) 10 MG tablet Take 1 tablet by mouth02/07/2024ctive estradiol (ESTRACE) 1 MG tablet 1 dmavme8507/14/2024tive dihydroergotamine (DHE) 1 MG/ML injection Inject 1 mL into the skin in the morning and 1 mL at noon and 1 mL in the evening.09/11/2024tive FARXIGA 10 MG tablet Take 1 tablet by mouth daily12/09/2023ctive cyclobenzaprine (FLEXERIL) 10 MG tablet Take 1 tablet by mouth 3 times daily as neededActive clopidogrel (PLAVIX) 75 MG tablet Take 1 tablet by mouth02/07/2024ctive Cholecalciferol 1.25 MG (72112 UT) TABS Take 2 tablets by mouth nightlyActive Calcium Carbonate-Vit D-Min (CALTRATE 600+D PLUS MINERALS) 600-800 MG-UNIT CHEW Take by mouthActive eopojwqvab-XRBY-xoogwebi 50-300-40 MG CAPS per capsule Take 1 capsule by mouth daily as kxcozh8108/07/2024tive Blood Glucose Monitoring Suppl (ONE TOUCH ULTRA 2) w/Device KIT USE DIRECTED FOUR TIMES DAILY5Active atorvastatin (LIPITOR) 40 MG tablet Take 1 tablet by mouth nightlyActive atomoxetine (STRATTERA) 80 MG capsule Take 1 capsule by mouth daily4Active ascorbic acid (VITAMIN C) 1000 MG tablet Take 1 tablet by mouthActive ALPRAZolam (XANAX) 1 MG tablet Take 1 tablet by mouth daily.5Active Alpha-Lipoic Acid 600 MG CAPS Take 1 capsule by mouth dailyActive albuterol sulfate HFA (PROVENTIL;VENTOLIN;PROAIR) 108 (90 Base) MCG/ACT inhaler Inhale 2 puffs into the lungs every 4 hours as neededActive albuterol (PROVENTIL) (2.5 MG/3ML) 0.083% nebulizer solution albuterol sulfate 2.5 mg/3 mL (0.083 %) solution for nebulization INHALE 1 (ONE) vial via NEBULIZER EVERY 4 HOURS NEEDEDActive albuterol sulfate HFA (PROVENTIL;VENTOLIN;PROAIR) 108 (90 Base) MCG/ACT inhaler Inhale 2 puffs into the lungs every 6 hours as neededActive Active Problems No known active problems Social History Tobacco UseTypesPacks/DayYears UsedDateSmoking Tobacco: NeverSmokeless Tobacco: Never Tobacco Cessation:Counseling Given: Not Answered Alcohol UseStandard Drinks/WeekCommentsNever0 (1 standard drink = 0.6 oz pure alcohol)CommentsNoSex and Gender InformationValueDate RecordedSex Assigned at QtdihRoiwls78/14/2025 11:12 AM EDTLegal YqyQjzkgz33/09/2013 7:42 AM ESTGender XigshxccAkewwm23/14/2025 11:12 AM EDTSexual OrientationNot on file Last Filed Vital Signs Vital SignReadingTime TakenCommentsBlood Roopmhnq483/7007 3:05 PM EDT Ayydx106411/24/2024 3:05 PM FGDThevihopcsn61.3 ??C (97.4 ??F)11/24/2024 3:05 PM EDTRespiratory Rate--Oxygen Nlsenfbziq01%11/24/2024 3:05 PM EDTInhaled Oxygen Concentration--Owsvww27.7 kg (211 lb)11/24/2024 3:05 PM VXJHucaou455.3 cm (5' 9 )11/24/2024 3:05 PM EDTBody Mass Index31.16011/24/2024 3:05 PM EDT Plan of Treatment Health MaintenanceDue DateLast DwhxYyycthdvIbyocl31/21/1985Depression Screen 1986HIV zldfjf7008/31/1989Hepatitis C yjykyn5308/31/1992DTaP/Tdap/Td vaccine (1 - Tdap)1993Hepatitis B vaccine (1 of 3 - 19+ 3-dose series)1993 Pap smear09/01/1995Cervical cancer kzpzpg5508/31/2004HPV (without or with Pap) 2004Diabetes ujqaoa6908/31/20093097Vztbwxogbat48/21/2020Colorectal Cancer Screen 09/01/2019FIT/FOBT: Average risk09/01/2019Fecal-DNA (Cologuard): Average risk 09/01/2019Sigmoidoscopy/CT wheealssbiyp60/21/2020Annual Wellness Visit (Medicare Advantage)5Breast cancer mctiym455008/28/2022Shingles vaccine (1 of 2)2024Flu vaccine (#1)OVID-19 Vaccine ( season), 11/29/2020, 1Pneumococcal 0-49 years BdrncdmLkxfcoukmsll70/23/2023Pneumococcal 50+ years BdkzhecSeukclafg82/23/2023 Hepatitis A vaccineAged OutNo longer eligible based on patient's age to complete this topicHib vaccineAged OutNo longer eligible based on patient's age to complete this topicMeningococcal (ACWY) vaccineAged OutNo longer eligible based on patient's age to complete this topicMeningococcal B vaccineAged OutNo longer eligible based on patient's age to complete this topicPolio vaccineAged OutNo longer eligible based on patient's age to complete this topic Insurance * Guarantor: [place] [employer] COMMISSIONAccount TypeRelation to PatientDate of BirthPhoneBilling AddressCorporateOther [address] [place] [address] Care Teams Team MemberRelationshipSpecialtyStart DateEnd Date Josh Tracy MD [address] [place] [id number] PCP - GeneralFamily Medicine09/10/24
--- OUTSIDE RECORDS SUMMARY | 2025-04-12 11:47 | XMS_ITS | CCD ---
Author Organization [facility] Care Team Providers Care Receiving Dock Checker Name Role Phone CHONG CARRERO Admitting Unavailable [...] Care Unavailable Josh Ochoa Primary Care Provider [phone] Suresh Martins CNPistina Unavailable [phone] Chanel Workman Unavailable Vianney Collins Unavailable Josh Ochoa Primary Care Provider Eliezer MARTINEZ Deja Unavailable MD Josh Ochoa Primary Care Provider [phone] MD Marie Armstrong Attending Provider [phone] Josh Ochoa Primary Care Provider Suresh Martins CNPistina Unavailable MD Josh Ochoa Primary Care Provider MD Lee Chowdary Attending Provider [phone] JOSH OCHOA Attending Unavailable GABRIELA, DR JOSH Ozuna Admitting Unavailable GABRIELA, DR JOSH Ozuna Consulting Unavailable GABRIELA, DR JOSH Ozuna Primary Care Unavailable JENNIFER, DR BARTOLOME Suarez Consulting Unavailable NADERER, DR JOSH Ozuna Primary Care Unavailable TOMY ., JACQUELYN Attending Unavailable TOMY ., JACQUELYN Admitting Unavailable TOMY ., JACQUELYN Consulting Unavailable NADERER, DR JOSH [...] Care Provider Josh Ochoa Primary Care Provider [phone] Josh Ochoa MD Unavailable Josh Ochoa MD Primary Care Provider MD Josh Ochoa Primary Care Provider AsaMD fili Imad Attending Provider Asaad, Imad Attending Unavailable Asaad, Imad Admitting Unavailable Nadereerick, Josh Primary Care Unavailable Jackson [facility] Unavailable Josh Ochoa MD Primary Care Provider JESSEE BILLY Attending Unavailable JESSEE BILLY Referring Unavailable GABRIELA, JOSH BURKETT Primary Care Unavailabl e KARETI, WHITE Referring Unavailable NADERER, JOSH STOKESONY Primary Care Unavailabl e KARETI, JESSEE Attending Unavailable KARETI, WHITE Referring Unavailable NADERER, JOSH BURKETT Primary Care Unavailabl e NADERER, JOSH KWADWO Primary Care Unavailabl e KARETI, WHITE Attending Unavailable KARETI, WHITE Referring Unavailable Naderer Josh WARD Primary Care Provider [phone] Josh Ochoa MD Unavailable DC JACKSON Attending Unavailable ARCE, OLU W Attending Unavailable TOMY, AJCQUELYN Attending Unavailable NADERER, JOSH Attending Unavailable JACKSON, DC L Attending Unavailable JACKSON, DC L Attending Unavailable GRAZIANI, SARA Stfaford Attending Unavailab le JACKSON, DC L Attending Unavailable ARCE, OLU W Attending Unavailable NADERER, JOSH Attending Unavailable JACKSON, DC L Attending Unavailable ARCE, OLU W Attending Unavailable ARCE, OLU W Attending Unavailable ARCE, OLU W Attending Unavailable GRAZIANI, SARA Stafford Attending Unavailab le NADERER, JOSH Attending Unavailable JACKSON, DC L Attending Unavailable NADERER, JOSH A Primary Care Unavailable FROIMSON, KINGA Referring Unavailable NADERER, JOSH A Primary Care Unavailable FROIMSON, KINGA Attending Unavailable FROIMSON, KINGA Referring Unavailable NADERER, JOSH A Primary Care Unavailable FROIMSON, KINGA Attending Unavailable FROIMSON, KINGA Referring Unavailable EN, KONGIGANAK Referring Unavailable NADERER, JOSH A Primary Care Unavailable EN, KONGIGANAK Referring Unavailable NADERER, JOSH A Primary Care Unavailable EN, KONGIGANAK Attending Unavailable NADERER, JOSH A Primary Care Unavailable FROIMSON, KINGA Attending Unavailable FROIMSON, KINGA Referring Unavailable NADERER, JOSH A Primary Care Unavailable NADERER, JOSH A Primary Care Unavailable MARILYNN LUA Attending Unavailable NADERER, JOSH A Primary Care Unavailable FROIMSON, KINGA Referring Unavailable NADERER, JOSH A Primary Care Unavailable FROIMSON, KINGA Referring Unavailable JOSE FRANCISCO MARR Attending Unavailable JOSE FRANCISCO MARR Attending Unavailable FARZAD DUMONT Attending Unavailable JOSE FRANCISCO MARR Attending Unavailable JOSE FRANCISCO MARR Attending Unavailable JULIANA SHANE Attending Unavailable Elmo Solano Admitting Unavailable Elmo Solano Attending Unavailable JOSH OCHOA Primary Care Unavailable Elmo Solano Admitting Unavailable Elmo Solano Attending Unavailable JOSH OCHOA Primary Care Unavailable Elmo Solano Admitting Unavailable Elmo Solano Attending Unavailable JOSH OCHOA Primary Care Unavailable Allergies Allergy ClassificationReported Allergen(s)Allergy TypeDate of OnsetReaction(s) Facility (10 sources)Codeine; Translations: [CODEINE]Drug Aiegsvu11-56-1226CakjxPnxMer[facility] (4 sources)Erythromycin; Translations: [ERYTHROMYCIN]Drug Ovxlowt79-84-5887CskMer[facility] (9 sources)Penicillins; Translations: [PENICILLINS]Drug allergy (disorder) 74-95-8856BpxsqAlpRiverside Methodist Hospital Repository (9 sources)Sulfonamides (Antibiotic); Translations: [SULFA (SULFONAMIDE ANTIBIOTICS)]Drug allergy (disorder)09-65-0836HruclJjyRiverside Methodist Hospital Repository (20 sources)Ciprofloxacin; Translations: [CIPROFLOXACIN]Drug Nxwgsjl01-79-6938 Unknown, [facility] (20 sources)CodeineDrug Pykaboy71-27-2750Cqebz, [facility] (20 sources)Desonide; Translations: [DESONIDE]Drug Kysloll08-69-4671Tgvpu: See [facility] Work Phone: (20 sources)ErythromycinDrug Nvpknom15-71-5073Mvmae, [facility] (20 sources)Latex; Translations: [latex]Propensity to adverse reactions 25-47-3335Ycyoivg, AnaphylaxisJoint [facility] District [facility] (20 sources)Penicillin V; Translations: [PENICILLIN V]Drug Yspoxxq05-73-9775 HivC[facility] (20 sources)Sulfonamides (Antibiotic)Propensity to adverse -87-4967 Hives, [facility], [facility] (3 sources)penicillAMINEDrug Lcyibdw90-42-7561kwfhqwmjqMercer County Community Hospital (2 sources)Sulfamethoxazole / TrimethoprimDrug AllergyhivesNowestern [facility] [place] [employer] Other (2 sources)Sulfonamides (Antibiotic)Propensity to adverse reactionsUnknoFulton Medical Center- [facility]ult[facility] [place] [employer] Other (5 sources)Adhesive Tape; Translations: [adhesive tape]Allergy to substance 10-84-6345EqobpmnAdena Regional Medical Center (20 sources)erythromycin base; Translations: [Erythromycin Base]Allergy to jiggxughs02-54-8376UolypTdstlxbopAdams County Regional Medical Center (1 source)DesonideDrug Wrqzpxm63-59-9786MpzL[facility] Rep[facility] (20 sources)Cod liver oil; Translations: [cod liver oil]Allergy to substance 46-79-9954NikbShqwozlwfMansfield Hospital (20 sources)Zinc Oxide; Translations: [zinc oxide]Drug Ibrznuo70-00-5350YtncMemorial Health System [facility] (20 sources)DesonideAllergy to zzrudldjp66-36-1997WaooutgYTPL Healthcare Work Phone: (20 sources)PenicillinsDrug Ujxpixc56-11-5636PvieXSFW Healthcare (20 sources)Wound Dressing AdhesiveDrug Ulmxvvr29-79-2064RofrtcrLURT Healthcare (2 sources)Sulfamethoxazole; Translations: [sulfamethoxazole]Drug Allergy 57-51-9748yprxaTliojqwhdMorrow County Hospital (2 sources)Trimethoprim; Translations: [trimethoprim]Drug Zpxwenj38-57-4749ocppcMercy Health St. [facility] (1 source)CodeineDrug Unptafd50-34-9111TgaajkqyhC[facility] Clinic [facility] Repository (1 source)DesonideDrug Ogmphep96-78-6869PjhcbdjigC[facility] Clinic [facility] Repository (1 source)penicillAMINEDrug Vwmvria82-27-7058OmqbxxhmgC[facility] Clinic [facility] Repository (1 source)PenicillinsDrug allergy (disorder)12-61-6563QtwuzvuowC[facility] Clinic [facility] Repository (1 source)Sulfonamides (Antibiotic)Drug allergy (disorder)52-07-7359EgxuhwanuCleveland Clinic [facility]ina Hospital Repository (13 sources)Prochlorperazine; Translations: [PROCHLORPERAZINE]Drug Allergy 17-56-4932Ucedwvhfpgj, GI intoleranceJoint Township District Memorial Hospital (1 source)Adhesive agent; Translations: [ADHESIVE]Propensity to adverse reactions to drug (disorder)69-71-6004EtqauaslvjHolzer Health System Repository (1 source)sulfa drug; Translations: [sulfa drug]Propensity to adverse reactions to drug (disorder)[facility] Medications Current Medications MedicationDrug Class(es)DatesSig (Normalized)Sig (Original)acetaminophen 300 mg / butalbital 50 mg / caffeine 40 mg oral capsule (20 sources)Barbiturate, Central Nervous System Stimulant, MethylxanthineStart: 17-45-1251ajtd 1 capsule by mouth every twenty-four hours as needed pobgogwkxb-eqgyhmhyuobwg-ejlbzfrj (Fioricet) 50-300-40 MG capsule Take 1 capsule by mouth Daily as needed 12/10/2024 ActiveStart: 60-06-4031zwzb 1 capsule by mouth once daily as sdrouwblbsfyiygs-JFPZ-grcacqne 50-300-40 MG CAPS per capsule Take 1 capsule by mouth daily as needed 08/07/2024 ActiveStart: 07-27-2024 End: 86-35-7374dppe 1 capsule by mouth every eight hours for headache qdqqorshpy-xvpcybgnmwcag-jsjscxei (Fioricet) 50-300-40 MG capsule Indications: Intractable chronic migraine without aura and without status migrainosus (CMS/HCC) Take 1 capsule by mouth every 8 (eight) hours if needed for headaches 84 capsule 07/27/2024 08/26/2024 ActiveStart: 02-82-4964twcn 1 capsule by mouth every twenty-four hours as xplyjnvitgolqhpo-purhunspyrwos-gysthtvu (Fioricet) 50-300-40 MG capsule Take 1 capsule by mouth Daily as needed 05/13/2024 Active Start: 11-20-2023 End: 84-31-0785jweb 1 tablet by mouth every six hours Tkfsqjvijn-Czjbkqcbdfnma-Bbvp Active 1 TAB PO Every 6 hours January 08, 2024 12:00amStart: 06-06-2023 End: 34-59-8236vvfb 1 capsule by mouth every eight hours for headache atpptrylvr-chtoafyxtgtrj-bofhyefx (Fioricet) 50-300-40 MG capsule Indications: Migraine without aura and without status migrainosus, not intractable (CMS/HCC) Take 1 capsule by mouth every 8 (eight) hours if needed for headaches 30 capsule 1 06/06/2023 07/06/2023 ActiveStart: 08-01-2022 End: 38-06-2192uonm 1 capsule by mouth every six hours as neededacetaminophen 300 mg-caffeine 40 mg-butalbital 50 mg (FIORICET) per capsule Take 1 capsule by mouthevery 6 hours as needed. 08/01/2022 ActiveStart: 06-30-6585huqn 1 tablet by mouth every six hours as neededacetaminophen 325 mg-caffeine 40 mg-butalbital 50 mg (FIORICET) per tablet Take 1 tablet by mouth every 6 hours as needed. 0 08/29/2021 ActiveComment on above:Take 1 tablet by mouth every 6 hours as needed.albuterol 0.83 mg/ml inhalation solution (20 sources)beta2-Adrenergic Agonistalbuterol (2.5 MG/3ML) 0.083% nebulizer solution Take 2.5 mg by nebulization every 4 (four) hours if needed. Activetake 2 puff(s) by inhalation every four hoursalbuterol HFA 90 mcg/act inhaler Inhale 2 puffs every 4 (four) hours if needed. Activetake 2 puff(s) by inhalation every four hours as neededalbuterol sulfate HFA (PROVENTIL;VENTOLIN;PROAIR) 108 (90 Base) MCG/ACT inhaler Inhale 2 puffs intothe lungs every 4 hours as needed Activetake 2 puff(s) by inhalation every six hours as neededalbuterol sulfate HFA (PROVENTIL;VENTOLIN;PROAIR) 108 (90 Base) MCG/ACT inhaler Inhale 2 puffs intothe lungs every 6 hours as needed ActiveAlbuterol Sulfate (2.5 MG/3ML) 0.083% 3 ml Inhalation Three times a day ActiveALPRAZolam 1 mg oral tablet (20 sources)BenzodiazepineStart: 10-30-2023 End: 74-18-4051plvc 1 tablet by mouth once daily as neededALPRAZolam (Xanax) 1 MG tablet Indications: Generalized anxiety disorder TAKE 1 TABLET BY MOUTH DAILY NEEDED 30 tablet 1 12/04/2024 ActiveStart: 09-06-2022 End: 44-33-8039onbj 0.5 mg by mouth twice dailyAlprazolam Discontinued 0.5 MG PO Twice daily September 06, 2022 12:00am January 08, 2024 10:18amStart: 04-27-2019 End: 97-31-9476VIEMRIqqhc (Xanax) 1 MG tablet Indications: Generalized anxiety disorder (CMS/HCC) Take 1 tablet (1mg) by mouth Daily as needed for anxiety (1 as needed) 30 tablet 1 06/21/2023 07/21/2023 ActiveStart: 42-06-3590dcpp 1 tablet by mouth four times dailyAlprazolam (Xanax) 1 mg Tablet Active 1 MG PO Four times daily April 27, 2019 12:00amStart: 04-96-8742QWRAGVzzak (XANAX) 0.5 mg tablet 1 mg. 07/18/2016 ActiveComment on above:1 mg.amoxicillin 875 mg / clavulanate 125 mg oral tablet (1 source)Penicillin-class AntibacterialStart: 26-30-6072xjqe 1 tablet by mouth every twelve hoursAmoxicillin-Pot Clavulanate 875-125 MG 1 tablet Orally every 12 hrs for 10 day(s) Dec, ActiveARIPiprazole 15 mg oral tablet (20 sources)Atypical AntipsychoticStart: 06-04-2023 End: 95-48-3833wnrm 1 tablet by mouth in the morningARIPiprazole (Abilify) 15 MG tablet Indications: Major depressive disorder, single episode, severe without psychotic features (HCC) (CMS/HCC) Take 1 tablet (15 mg) by mouth in the morning. 30 tablet 2 06/04/2023 05/11/2024 DiscontinuedStart: 08-27-2022 End: 38-88-6847lbsz 1 tablet by mouth once dailyAripiprazole (Abilify) 10 mg Tablet Discontinued 10 MG PO Daily August 27, 2022 12:00am January 08, 2024 10:18amStart: 11-21-2020 End: 42-95-5319foam 1 tablet by mouth once dailyARIPiprazole (ABILIFY) 5 mg tablet Take 5 mg by mouth once daily. 11/21/2020 04/08/2024 Discontinuedtake 1 tablet by mouth every twenty-four hoursAbilify 10 MG 1 tablet Orally Once a day ActiveComment on above:Take 5 mg by mouth once daily.ascorbic acid 1000 mg oral tablet (20 sources)Vitamin CStart: 04-27-2019 End: 24-07-9882Rpmupxpk Acid 1,000 mg tablet Ascorbic Acid (Vitamin C) Active 1 GM Oral Daily April 27, 2019 6:43am 04/27/2019 04/08/2024 Discontinued Start: 04-27-2019 End: 62-48-1458tdtb 1 g by mouth once dailyAscorbic Acid (Vitamin C) (Vitamin C) 1,000 mg Tablet Active 1 GM PO Daily April 27, 2019 1:00amComment on above: Take 1,000 mg by mouth.Ascorbic Acid (Vitamin C) Active 1 GM Oral Daily April 27, 2019 6:43amAspir-81 81 MG (2 sources)take 1 tablet by mouth once dailyAspir-81 81 MG 1 tablet Orally Once a day for 30 day(s) ActiveAtogepant (3 sources)Start: 20-75-8533ttqs 1 tablet by mouth once dailyAtogepant (Qulipta) 60 mg tablet Active 60 MG PO Daily August 27, 2022 12:00amAtogepant (Qulipta) 60 MG tablet (20 sources)Start: 09-29-2024 End: 98-65-8347raul 1 tablet by mouth once dailyAtogepant (Qulipta) 60 MG tablet Indications: Intractable chronic migraine without aura and withoutstatus migrainosus Take 60 mg by mouth Daily 30 tablet 11 09/29/2024 10/29/2024 Active Start: 09-29-2024 End: 16-23-0296xiqw 1 tablet by mouth once dailyAtogepant (Qulipta) 60 MG tablet Indications: Intractable chronic migraine without aura and withoutstatus migrainosus (CMS/HCC) Take 60 mg by mouth Daily 30 tablet 11 09/29/2024 10/29/2024 ActiveStart: 04-01-2023 End: 80-13-4018btgf 1 tablet by mouth in the morningAtogepant (Qulipta) 60 MG tablet Indications: Intractable migraine without aura and without status m igrainosus (CMS/HCC) Take 60 mg by mouth in the morning. 30 tablet 11 04/01/2023 03/31/2024 ExpiredStart: 04-01-2023 End: 22-33-9986bpql 1 tablet by mouth in the morningAtogepant (Qulipta) 60 MG tablet Indications: Intractable migraine without aura and without status m igrainosus (CMS/HCC) Take 60 mg by mouth in the morning. 30 tablet 11 04/01/2023 03/31/2024 Activeatomoxetine 80 mg oral capsule (20 sources)Norepinephrine Reuptake InhibitorStart: 01-08-7521ydyf 1 capsule by mouth once dailyatomoxetine (Strattera) 80 MG capsule Indications: ADD (attention deficit disorder) without hyperactivity TAKE 1 CAPSULE BY MOUTH DAILY 30 capsule 5 11/09/2024 ActiveStart: 08-20-2023 End: 83-37-2640wxju 1 capsule by mouth once dailyatomoxetine (Strattera) 80 MG capsule Indications: ADD (attention deficit disorder) without hyperactivity TAKE 1 CAPSULE BY MOUTH DAILY 30 capsule 5 11/09/2024 ActiveStart: 64-96-8210ctmo 1 capsule by mouth in the morningatomoxetine (Strattera) 40 MG capsule Indications: ADD (attention deficit disorder) without hyperactivity Take 1 capsule (40 mg) by mouth in the morning. Swallow capsule whole; do not open. If openedaccidentally, do not touch eyes; wash hands immediately (product is an eye irritant).. 30 capsule Activeatorvastatin 80 mg oral tablet (20 sources)HMG-CoA Reductase InhibitorStart: 03-06-2023 End: 32-85-8550rgdj 1 tablet by mouth in the morningatorvastatin (Lipitor) 80 MG tablet Indications: Mixed hyperlipidemia (CMS/HCC) Take 1 tablet (80 mg) by mouth in the morning. 90 tablet 3 06/20/2023 ActiveStart: 43-36-4388abdb 1 tablet by mouth once daily at bedtimeAtorvastatin (Lipitor) 40 mg Tablet Active 40 MG PO Daily at bedtime April 27, 2019 12:00amStart: 04-27-2019 End: 91-84-0897oyrk 2 tablets by mouth once daily at bedtimeAtorvastatin (Lipitor) 40 mg Tablet Discontinued 80 MG PO Daily at bedtime April 27, 2019 1:00am January 08, 2024 10:18am End: 08-53-9864nfxa 4 tablets by mouth once dailyatorvastatin (LIPITOR) 20 mg tablet Take 80 mg by mouth once daily. 04/08/2024 Discontinuedtake 1 tablet by mouth once dailyatorvastatin (LIPITOR) 20 mg tablet Take 20 mg by mouth once daily. 0 ActiveComment on above:Take 20 mg by mouth once daily.Take 80 mg by mouth once daily. Blood Glucose Monitoring Suppl (Blood Glucose Monitor System) w/Device kit (20 sources)Start: 06-16-2024 End: 16-57-3457Mfkpd Glucose Monitoring Suppl (Blood Glucose Monitor System) w/Device kit Indications: Type 2 diabetes mellitus with polyneuropathy (HCC) Test four times daily 1 kit 06/16/2024 06/16/2025 ActiveStart: 06-16-2024 End: 47-03-8963Gpgcy Glucose Monitoring Suppl (Blood Glucose Monitor System) w/Device kit Indications: Type 2 diabetes mellitus with polyneuropathy (CMS/HCC) Test four times daily 1 kit 06/16/2024 06/16/2025 ActiveBlood Glucose Monitoring Suppl (ONE TOUCH ULTRA 2) w/Device KIT (4 sources)Start: 10-82-1361Mhhbl Glucose Monitoring Suppl (ONE TOUCH ULTRA 2) w/Device KIT USE DIRECTED FOUR TIMES DAILY 06/16/2024 Active onabotulinumtoxina 200 unt injection (20 sources)Acetylcholine Release InhibitorStart: 96-61-2238enywtxitazhv toxin type A 200 Units injection (BOTOX)Start: 39-85-1652517 Units, INTRAMUSCULAR, EVERY 12 WEEKS, First dose on Sat03/11/24 at 0800, Until Discontinued, This record documents the total dose provided to patient. See progress note for specific locations and amounts administered.Start: 01-02-2023 End: 37-62-9089xemgfwaelnog toxin type A 200 Units injection (BOTOX)Start: 10-10-2022 End: 29-69-1749kkrqfkcmctdq toxin type A 200 Units injection (BOTOX)Start: 06-07-2021 End: 33-38-7247cpwyeviajsix toxin type A 200 Units injection (BOTOX)calcium carbonate 1500 mg oral tablet (20 sources)calcium carbonate (CALTRATE) 600 mg calcium (1,500 mg) tab Take 600 mg by mouth. ActiveComment on above:Take 600 mg by mouth.calcium carbonate 1500 mg / cholecalciferol 800 unt chewable tablet (4 sources)Vitamin DStart: 92-82-2387fyqa 1 tablet by mouth twice dailyCalcium Carbonate-Vitamin D3 (Caltrate 600 Plus D) 600 mg (1,500 mg)-800 unit Tablet,Chewable Active 1 TAB PO Twice daily April 27, 2019 1:00amCalcium Carbonate-Vit D-Min (CALTRATE 600+D PLUS MINERALS) 600-800 MG-UNIT CHEW (4 sources)Calcium Carbonate-Vit D-Min (CALTRATE 600+D PLUS MINERALS) 600-800 MG-UNIT CHEW Take by mouth ActiveCalcium Carbonate-Vit D-Min (Caltrate 600+D Plus Minerals) 600-800 MG-UNIT chewable tablet (20 sources)Calcium Carbonate-Vit D-Min (Caltrate 600+D Plus Minerals) 600-800 MG-UNIT chewable tablet Chew. ActiveCalcium Carbonate-Vit D-Min (Caltrate 600+D Plus Minerals) 600-800 MG-UNIT chewable tablet Chew. 0 ActiveCaltrate 600+D 600- 400 MG-UNIT (2 sources)take 1 tablet by mouth twice dailyCaltrate 600+D 600-400 MG-UNIT 1 tablet Orally bid Activecholecalciferol 0.05 mg oral capsule (20 sources)Vitamin DStart: 37-43-4718mjio 1 capsule by mouth once daily Cholecalciferol (Vitamin D3) (Vitamin D3) 50 mcg (2,000 unit) Capsule Active 2000 UNIT PO Daily August 27, 2022 12:00amStart: 23-54-6181gewz 1 tablet by mouth once dailycholecalciferol (VITAMIN D3) 50 mcg (2,000 unit) tablet Take 1 tablet by mouth once daily. 10/12/2019 Activetake 2 tablets by mouth once daily Cholecalciferol 1.25 MG (98042 UT) TABS Take 2 tablets by mouth nightly Active Comment on above:Take 1 tablet by mouth once daily.clopidogrel 75 mg oral tablet (20 sources)P2Y12 Platelet InhibitorStart: 42-39-2740mofcvuetklr (Plavix) 75 MG tablet 07/14/2024 ActiveStart: 08-27-2022 End: 86-72-4943pkaaykjhema (Plavix) 75 MG tablet 07/14/2024 ActiveContinuous Blood Gluc Sensor (Dexcom G6 Sensor) misc (5 sources)Start: 82-71-4210Riomzhcecx Blood Gluc Sensor (Dexcom G6 Sensor) misc Indications: Type 2 diabetes mellitus with hyperglycemia, with long-term current use of insulin ([facility]) Use as directed 2 each 11 04/19/2023 ActiveContinuous Blood Gluc Transmit (Dexcom G6 transmitter) misc (5 sources)Start: 06-11-7975Zafkvmwmfq Blood Gluc Transmit (Dexcom G6 transmitter) misc USE DIRECTED FOR 90 DAYS 0 05/15/2023 Activecyclobenzaprine hydrochloride 5 mg oral tablet (20 sources)Muscle RelaxantStart: 82-97-7463tpsyxibfwnndbqy (FLEXERIL) 5 mg tablet 10/03/2022 Activetake 1 tablet by mouth three times daily as needed cyclobenzaprine (Flexeril) 10 MG tablet Take 10 mg by mouth 3 (three) times a day as needed. Activedapagliflozin 10 mg oral tablet (20 sources)Sodium-Glucose Cotransporter 2 InhibitorStart: 08-27-2022 End: 07-17-8367pwno 1 tablet by mouth once dailydapagliflozin (Farxiga) 10 MG Indications: Type 2 diabetes mellitus with polyneuropathy (HCC) TAKE 1 TABLET BY MOUTH DAILY 30 tablet 5 12/04/2024 ActiveDHEA 1MG PER ML (2 sources)DHEA 1MG PER ML INJECTION Externally PRN Active1 ml dihydroergotamine mesylate 1 mg/ml injection (20 sources)Ergotamine DerivativeStart: 59-97-6454zeknon 1 mg by intramuscular injection every eight hoursDihydroergotamine Active 1 MG IM Q8H August 27, 2022 12:00am occ. migrainesStart: 04-24-2005 End: 42-42-6190qpmwuwedpscdkczrj (DHE) 1 mg/mL injection Inject 1 mg subcutaneously every 8 hours. As needed for migraine. No more than 2 injections/day or treating 2 injections per day. 10 mL 6 09/11/2024 Active Comment on above:Inject 1mg SQ every 8 hours as needed for migraine docosahexaenoic acid 120 mg / eicosapentaenoic acid 180 mg oral capsule (4 sources)[place]-3 1000 MG CAPS Take 1 capsule by mouth Activedoxycycline monohydrate 100 mg oral capsule (1 source)Tetracycline-class DrugStart: 99-40-8431spdj 1 capsule by mouth every twelve hoursDoxycycline Monohydrate 100 MG 1 capsule Orally every 12 hrs for 10 days Nov, Activeestradiol 1 mg oral tablet (20 sources)EstrogenStart: 34-40-6726ddff 1 tablet by mouth once dailyestradiol (Estrace) 1 MG tablet Indications: Hot flashes , Vaginal irritation Take 1 tablet (1 mg) by mouth Daily Take 1 tablet by mouth for 30 days 30 tablet 3 01/06/2025 ActiveStart: 07-20-2024 End: 51-86-8593yymg 1 tablet by mouth once dailyestradiol (Estrace) 0.5 MG tablet Indications: Hormone imbalance , Hot flashes Take 1 tablet (0.5 mg) by mouth Daily Take 1 tablet by mouth for 30 days 30 tablet 11 07/20/2024 07/15/2025 ActiveStart: 78-68-7450icokumnxs (ESTRACE) 1 MG tablet 1 tablet 07/14/2024 ActiveStart: 02-26-2023 End: 21-55-7649fyfd 2 tablets by mouth every weekestradiol (Estrace) 1 MG tablet Indications: Hormone imbalance TAKE 2 TABLETS BY MOUTH ONCE A WEEK 8 tablet 11 11/26/2023 ActiveStart: 98-40-5867nqhb 1 mg by mouth two times weeklyEstradiol Active 1 MG PO Twice a Week August 27, 2022 12:00am saturday and fridaystart: 08-07-2022 End: 11-92-0398aekb 1 tablet by mouth once daily, then take 1 tablet by mouth two times weeklyestradiol (ESTRACE) 1 mg tablet TAKE 1 TABLET BY MOUTH DAILY FOR 14 DAYS then TAKE 1 TABLET BY MOUTH twice a week 08/07/2022 ActiveComment on above:TAKE 1 TABLET BY MOUTH DAILY FOR 14 DAYS then TAKE 1 TABLET BY MOUTH twice a weekeszopiclone 3 mg oral tablet (11 sources)Start: 08-27-2022 End: 86-78-1824mkoo 1 tablet by mouth once daily at bedtimeeszopiclone (LUNESTA) 3 mg tab TAKE 1 TABLET BY MOUTH ONCE DAILY immediately before bedtime 09/05/2022 04/08/2024 DiscontinuedComment on above:TAKE 1 TABLET BY MOUTH ONCE DAILY immediately before bedtimeEXEL SYRINGE 3 ML 25 X 5/8 (20 sources)Start: 30-22-4021IQRU SYRINGE 3 ML 25 X 5/8 Indications: Other general symptoms(780.99) use with DHE 10 6 04/24/2005 ActiveComment on above:use with DHEezetimibe 10 mg oral tablet (20 sources)Dietary Cholesterol Absorption InhibitorStart: 07-29-2023 End: 61-40-8432crbo 1 tablet by mouth in the morningezetimibe (Zetia) 10 MG tablet Take 10 mg by mouth in the morning. 07/29/2023 Activefenofibrate 160 mg oral tablet (20 sources)Peroxisome Proliferator Receptor alpha AgonistStart: 10-05-2022 End: 38-65-2146hakf 1 tablet by mouth once dailyfenofibrate (Triglide) 160 MG tablet Indications: Hyperlipidemia, unspecified TAKE 1 TABLET BY MOUTH DAILY 90 tablet 3 06/02/2024 Activefurosemide 40 mg oral tablet (20 sources)Loop DiureticStart: 93-04-6249wjif 1 tablet by mouth once daily furosemide (LASIX) 40 mg tablet Take 40 mg by mouth once daily. 05/14/2021 ActiveComment on above:Take 40 mg by mouth once daily.gentamicin 3 mg/ml ophthalmic solution (10 sources)Start: 29-70-8935uehd 2 drop(s) into the eye(s) every four hours gentamicin (GARAMYCIN) 0.3 % ophthalmic solution instill 2 (TWO) DROPS IN BOTH EYES EVERY 4 HOURS FOR 7 DAYS 08/27/2024 ActiveStart: 08-06-2024 End: 23-04-4046cvwg 2 drop(s) into the eye(s) every four hoursgentamicin (Garamycin) 0.3 % ophthalmic solution Indications: Rodey eye disease, unspecified laterality Administer 2 drops into both eyes every 4 (four) hours for 7 days 15 mL 08/06/2024 08/13/2024 ActiveglipiZIDE 10 mg oral tablet (20 sources)SulfonylureaStart: 75-97-1998rcdh 1 tablet by mouth once daily glipiZIDE (Glucotrol) 10 MG tablet Indications: Type 2 diabetes mellitus with hyperglycemia (HCC) TAKE 1 TABLET BY MOUTH DAILY 30 tablet 5 02/25/2024 Active hydroCHLOROthiazide 12.5 mg / lisinopril 10 mg oral tablet (20 sources)Thiazide Diuretic, Angiotensin Converting Enzyme InhibitorStart: 92-81-6377rolm 1 tablet by mouth once dailyLisinopril-Hydrochlorothiazide Active 1 TAB PO Daily April 27, 2019 1:00amStart: 12-02-2018 End: 86-03-9628bknk 10-12.5 mg by mouth once as neededlisinopril- hydrochlorothiazide (PRINZIDE,ZESTORETIC) 10-12.5 mg per tablet Take 1 tablet by mouth once daily. as needed for when pain increases 0 10/09/2019 10/10/2022 Discontinuedtake 1 tablet by mouth in the morninglisinopril-hydroCHLOROthiazide 10-12.5 MG tablet Take 1 tablet by mouth in the morning. ActiveComment on above: Take 1 tablet by mouth once daily. as needed for when pain increases Take 1 tablet by mouth as needed.hydrOXYzine hydrochloride 50 mg oral tablet (20 sources)AntihistamineStart: 09-09-2024 End: 74-02-1612ycmv 1 tablet by mouth once daily as needed for anxiety hydrOXYzine HCl (Atarax) 50 MG tablet Indications: Generalized anxiety disorder TAKE 1 TABLET BY MOUTH DAILY NEEDED FOR ANXIETY 30 tablet 5 12/04/2024 Active Start: 06-40-9587shvp 1 tablet by mouth once daily as needed for anxiety hydrOXYzine HCl (Atarax) 50 MG tablet Indications: Generalized anxiety disorder (CMS/HCC) TAKE 1 TABLET BY MOUTH DAILY NEEDED FOR ANXIETY 30 tablet 2 06/10/2024 ActiveStart: 19-99-0022mden 1 tablet by mouth once daily as needed for anxietyhydrOXYzine HCl (Atarax) 50 MG tablet Indications: Generalized anxiety disorder (CMS/HCC) TAKE 1 TABLET BY MOUTH DAILY NEEDED FOR ANXIETY 30 tablet 05/08/2024 ActiveStart: 93-11-8385ieeo 1 tablet by mouth once daily as needed for anxietyhydrOXYzine HCl (Atarax) 50 MG tablet Indications: Generalized anxiety disorder (CMS/HCC) TAKE 1 TABLET BY MOUTH DAILY NEEDED FOR ANXIETY 30 tablet 04/13/2024 ActiveStart: 40-23-3118zels 1 tablet by mouth once daily as needed for anxietyhydrOXYzine HCl (Atarax) 50 MG tablet Indications: Generalized anxiety disorder (CMS/HCC) TAKE 1 TABLET BY MOUTH DAILY NEEDED FOR ANXIETY 30 tablet 03/16/2024 ActiveStart: 95-56-0498hyul 1 tablet by mouth once daily as needed for anxietyhydrOXYzine HCl (Atarax) 50 MG tablet Indications: Generalized anxiety disorder (CMS/HCC) TAKE 1 TABLET BY MOUTH ONCE DAILY NEEDED FOR ANXIETY 30 tablet 02/05/2024 ActiveStart: 44-89-4212vawc 1 tablet by mouth once daily as needed for anxietyhydrOXYzine HCl (Atarax) 50 MG tablet Indications: Generalized anxiety disorder (CMS/HCC) TAKE 1 TABLET BY MOUTH DAILY NEEDED FOR ANXIETY 30 tablet 01/02/2024 ActiveStart: 77-44-8951quor 1 tablet by mouth once daily as needed for anxietyhydrOXYzine HCl (Atarax) 50 MG tablet Indications: Generalized anxiety disorder (CMS/HCC) TAKE 1 TABLET BY MOUTH DAILY NEEDED FOR ANXIETY 30 tablet 08/26/2023 ActiveStart: 05-14-2023 End: 97-58-0200owpl 1 tablet by mouth once daily as needed for anxiety hydrOXYzine HCl (Atarax) 50 MG tablet Indications: Generalized anxiety disorder (CMS/HCC) Take 1 tablet (50 mg) by mouth Daily as needed for anxiety (1 tablet) 30 tablet 0 05/14/2023 08/12/2023 ActiveStart: 04-27-2019 End: 04-05-8058ubdr 1 tablet by mouth every six hours as neededhydrOXYzine HCl (ATARAX) 50 mg tablet Take 50 mg by mouth four times daily as needed. 10/09/2019 ActiveStart: 49-51-6213achg 50 mg by mouth every eight hoursHydroxyzine Hcl Active 50 MG PO Q8H April 27, 2019 1:00amStart: 60-17-2343oitk 50 mg by mouth once daily at bedtimeHydroxyzine Hcl Active 50 MG PO Daily at bedtime April 27, 2019 12:00amComment on above:Take 50 mg by mouth four times daily as needed. Take 50 mg by mouth.Inclisiran Sodium 284 MG/1.5ML solution prefilled syringe (20 sources)Start: 03-01-2023 End: 51-95-8406Zntxwkdszq Sodium 284 MG/1.5ML solution prefilled syringe Inject 284 mg under the skin. 03/01/2023 05/11/2024 DiscontinuedStart: 03-01-2023 Inclisiran Sodium 284 MG/1.5ML solution prefilled syringe Inject 284 mg under the skin. 03/01/2023 ActiveStart: 61-81-6584Crissldcej Sodium 284 MG/1.5ML solution prefilled syringe Inject 284 mg under the skin. 0 03/01/2023 Active Insulin Aspart U-100 (Novolog Flexpen U-100 Insulin) 100 unit/mL (3 mL) Insulin Pen (3 sources)Start: 57-12-4974Rjgyrqh Aspart U-100 (Novolog Flexpen U-100 Insulin) 100 unit/mL (3 mL) Insulin Pen Active 0 .[email or web address].COMPLEX April 27, 2019 1:00am sliding scale 150-200: 5u; 201-250: 10u; 251-300 15u; 301-350: 20u; 351- 400: 25u3 ml insulin aspart, human 100 unt/ml pen injector (20 sources)Insulin AnalogStart: 14-27-9453ZlhbHYC FLEXPEN 100 UNIT/ML pen Indications: Type 2 diabetes mellitus with hyperglycemia (HCC) INJECT 100 UNITS EVERY DAY via insulin pump 90 mL 1 11/18/2023 ActiveStart: 94-69-5900nstlnb 15- 30 [IU] by subcutaneous injection at mealtime, then inject 90 [IU] by subcutaneous injection once dailyInsulin Aspart FlexPen 100 UNIT/ML SOPN INJECT 15 - 30 UNITS SUBCUTANEOUSLY (UNDER THE SKIN) WITH meals plus sliding scale DIRECTED *max amount OF 90 UNITS DAILY 11/18/2023 ActiveStart: 03-06-2023 End: 14-01-6598RdprKFC 100 UNIT/ML solution INJECT a max DAILY dose OF 80 UNITS in insulin pump 03/06/2023 05/11/2024 DiscontinuedStart: 38-90-6600EgviUEW FLEXPEN 100 UNIT/ML pen INJECT 20-30 UNITS SUBCUTANEOUSLY THREE TIMES DAILY 0 11/14/2022 ActiveStart: 54-34-4848Vqwckeg Aspart U-100 (Novolog Flexpen U-100 Insulin) 100 unit/mL (3 mL) Insulin Pen Active 0 .ROUTE.COMPLEX April 27, 2019 12:00am sliding scaleinsulin aspart U-100 (NOVOLOG) 100 unit/mL Inject subcutaneously. Active End: 45-52-7878snorbiu aspart U-100 (NOVOLOG) 100 unit/mL (3 mL) Novolog Flexpen U-100 Insulin aspart 100 unit/mL (3 mL) subcutaneous 0 07/17/2022 Discontinued NovoLOG 100 UNIT/ML Subcutaneous ActiveComment on above:Novolog Flexpen U-100 Insulin aspart 100 unit/mL (3 mL) subcutaneousInject subcutaneously.Insulin Disposable Pump (Omnipod 5 G6 Pod, Gen 5,) misc (20 sources)Start: 04-13-2023 End: 00-73-8181Lxlzaje Disposable Pump (Omnipod 5 G6 Pod, Gen 5,) [facility] [place] [place] 05/11/2024 DiscontinuedStart: 78-14-8007Dmnvsvz Disposable Pump (Omnipod 5 G6 Pod, Gen 5,) misc 04/13/2023 ActiveStart: 34-60-4757Cbyyhcq Disposable Pump (Omnipod 5 G6 Pod, Gen 5,) misc3 ml insulin glargine 100 unt/ml pen injector (20 sources)Insulin AnalogStart: 23-36-6954Pxbasx SoloStar 100 UNIT/ML pen 07/14/2024 ActiveStart: 77-31-9344YWRLJB SOLOSTAR 100 UNIT/ML injection pen INJECT 30 UNITS SUBCUTANEOUSLY (UNDER THE SKIN) TWICE DAILY 04/08/2024 Active Start: 04-27-2019 End: 39-09-7100Kaznehv Glargine (Lantus Solostar U-100 Insulin) 100 unit/mL (3 mL) Insulin Pen Discontinued 40 UNIT SUBCUT Twice daily April 27, 2019 1:00am January 08, 2024 10:20amStart: 04-27-2019 End: 06-22-7540YTKANO SOLOSTAR U-100 INSULIN 100 unit/mL (3 mL) inject 35 units subqutaneously TWICE DAILY 0 10/09/2019 07/17/2022 Discontinued End: 65-64-9891djeydsd glargine (LANTUS) 100 unit/mL injection Inject 35 Units subcutaneously. 0 01/02/2023 DiscontinuedLantus SoloStar 100 UNIT/ML as directed Subcutaneous ActiveComment on above:inject 35 units subqutaneously TWICE DAILY Inject 35 Units subcutaneously.24 hr isosorbide mononitrate 30 mg extended release oral tablet (20 sources)Nitrate VasodilatorStart: 11-19-2022 End: 26-70-7533qxxu 1 tablet by mouth in the morning, then take 1 tablet by mouth every twenty-four hoursisosorbide mononitrate ER (Imdur) 30 MG 24 hr tablet Take 30 mg by mouth in the morning. 11/19/2022ctiveKenalog 30 MG/ML (2 sources)Kenalog 30 MG/ML as directed Injection Activeketorolac tromethamine 10 mg oral tablet (20 sources)Nonsteroidal Anti-inflammatory Drug, Cyclooxygenase InhibitorStart: 11-09-2024 End: 71-51-9297pkku 1 tablet by mouth every six hours for painketorolac (Toradol) 10 MG tablet Indications: Radiculopathy, cervical region Take 1 tablet (10 mg) by mouth every 6 (six) hours if needed for moderate pain 20 tablet 2 12/23/2024 01/22/2025 ActiveStart: 08-05-2024 End: 28-18-8291jjug 1 tablet by mouth every six hours as neededketorolac (TORADOL) 10 MG tablet Take 1 tablet by mouth every 6 hours as needed 08/05/2024 ActiveStart: 02-26-2024 End: 59-14-0500fenn 1 tablet by mouth every six hours for painketorolac (Toradol) 10 MG tablet Indications: Migraine without aura and without status migrainosus,not intractable (CMS/HCC) Take 1 tablet (10 mg) by mouth every 6 (six) hours if needed for moderatepain for up to 5 days 20 tablet 02/26/2024 03/02/2024 ActiveStart: 00-64-8791jhycec 30 mg by intramuscular injection every eight hoursKetorolac Active 30 MG IM Q8H August 27, 2022 12:00amStart: 68-38-3974vlPSJexcj (TORADOL) 30 mg/mL (1 mL) soln INJECT 1mL TWICE DAILY NEEDED 03/13/2021 ActiveStart: 04-27-2019 End: 03-45-3567Cbcvjjwny Discontinued 30 MG IM every 6 to 8 hours April 27, 2019 1:00am August 27, 2022 2:20pmStart: 04-24-2005 End: 51-76-2077YUHIRWE 30 MG/ML INJECTION, CARTRIDGE Indications: Other general symptoms(780.99) Inject one every 8 hours as needed for headache 10 3 04/24/2005 07/17/2022 Discontinuedketorolac (TORADOL) 30 MG/ML injection Inject 1 mL into the muscle every 6 hours as needed Activeketorolac (Toradol) 30 MG/ML injection INJECT 1mL TWICE DAILY NEEDED 0 ActiveComment on above:Inject one every 8 hours as needed for headacheINJECT 1mL TWICE DAILY NEEDEDammonium lactate 120 mg/ml topical lotion (20 sources)Start: 80-54-8002dtqngbqy lactate (LAC-HYDRIN) 12 % lotion ammonium lactate 12 % lotion 12/02/2018 ActiveComment on above:ammonium lactate 12 % lotionlevoFLOXacin 750 mg oral tablet (14 sources)Quinolone AntimicrobialStart: 10-12-2024 End: 45-34-4115pvzb 1 tablet by mouth once dailylevoFLOXacin (Levaquin) 750 MG tablet Indications: Acute non-recurrent pansinusitis Take 1 tablet (750 mg) by mouth Daily for 7 days 7 tablet 10/12/2024 10/19/2024 ActiveStart: 09-16-2024 End: 76-26-2372bbjl 1 tablet by mouth once dailylevoFLOXacin (Levaquin) 750 MG tablet Indications: Acute non-recurrent pansinusitis Take 1 tablet (750 mg) by mouth Daily for 7 days 7 tablet 09/16/2024 09/23/2024 ActiveStart: 08-05-2024 End: 45-74-8183moyg 1 tablet by mouth once dailylevoFLOXacin (Levaquin) 750 MG tablet Indications: Acute non-recurrent pansinusitis Take 1 tablet (750 mg) by mouth Daily for 7 days 7 tablet 08/05/2024 08/12/2024 ActiveStart: 05-11-2024 End: 67-54-6013tuve 1 tablet by mouth once dailylevoFLOXacin (Levaquin) 750 MG tablet Indications: Acute non-recurrent pansinusitis Take 1 tablet (750 mg) by mouth Daily for 7 days 7 tablet 05/11/2024 05/18/2024 Activemagnesium oxide 400 mg oral tablet (20 sources)Start: 07-91-8643fmkf 1 tablet by mouth at bedtimemagnesium oxide (Mag-Ox) 400 (241.3 Mg) MG tablet Take 400 mg by mouth at bedtime. 02/04/2022 ActiveStart: 04-27-2019 End: 17-68-6306ihjs 400 mg by mouth twice dailyMagnesium Oxide Discontinued 400 MG PO Twice daily April 27, 2019 1:00am January 08, 2024 10:21amComment on above:Take 1 tablet by mouth once daily.Manganese Sulfate POWD (4 sources)Manganese Sulfate POWD Take by mouth Activemeclizine hydrochloride 25 mg oral tablet (20 sources)AntiemeticStart: 12-95-4749sphx 1 tablet by mouth four times daily as neededmeclizine (Antivert) 25 MG tablet Indications: Dizziness and giddiness TAKE 1 TABLET BY MOUTH FOUR TIMES DAILY NEEDED 120 tablet 5 11/09/2024 Active Start: 04-27-2019 End: 00-15-9427momv 1 tablet by mouth four times daily as neededmeclizine (Antivert) 25 MG tablet Indications: Dizziness and giddiness TAKE 1 TABLET BY MOUTH FOUR TIMES DAILY NEEDED 120 tablet 5 11/09/2024 ActiveStart: 04-27-2019 take 25 mg by mouth every six hoursMeclizine Active 25 MG PO Q6H April 27, 2019 1:00amStart: 91-20-7424nbjh 25 mg by mouth twice dailyMeclizine Active 25 MG PO Twice daily April 27, 2019 12:00amComment on above:Take 25 mg by mouth four times daily as needed.Meclizine Active 25 MG Oral Twice daily April 27, 2019 6:43ammedical marijuana (4 sources)medical marijuana Take by mouth. ActivemetFORMIN hydrochloride 1000 mg oral tablet (20 sources)BiguanideStart: 93-00-2197ojus 1 tablet by mouth twice daily metFORMIN (Glucophage) 1000 MG tablet Indications: Type 2 diabetes mellitus with hyperglycemia (HCC) TAKE 1 TABLET BY MOUTH TWICE DAILY 60 tablet 5 02/25/2024 Activetake 1 tablet by mouth every twelve hoursmetFORMIN HCl 500 MG 1 tablet with meals Orally Twice a day for 30 day(s) ActiveComment on above:Take 1,000 mg by mouth twice daily with meals.methylPREDNISolone 4 mg oral tablet (1 source)CorticosteroidStart: 66-75-3661hcrwsmCVZJLHGckwtc 4 MG as directed Orally for daily dose take half with breakfast, half with dinner for 6 days Nov, Activemetoclopramide 10 mg oral tablet (20 sources)Dopamine-2 Receptor AntagonistStart: 43-54-0606bjyn 1 tablet by mouth four times dailymetoclopramide (Reglan) 10 MG tablet Indications: Dizziness and giddiness TAKE 1 TABLET BY MOUTH FOUR TIMES DAILY 120 tablet 5 09/25/2024 ActiveStart: 82-21-8192kgvg 1 tablet by mouth twice daily Metoclopramide Hcl (Reglan) 10 mg Tablet Active 10 MG PO Twice daily April 27, 2019 1:00amStart: 36-12-7502nnmi 1 tablet by mouth every six hours Metoclopramide Hcl (Reglan) 10 mg Tablet Active 10 MG PO Q6H April 27, 2019 1:00ammetoprolol tartrate 25 mg oral tablet (20 sources)beta-Adrenergic BlockerStart: 12-14-2024 End: 49-72-9998phjcpdnbfh tartrate (Lopressor) 25 MG tablet Take 12.5 mg by mouth in the morning and 12.5 mg in the evening. 12/14/2024 12/14/2025 Active Start: 01-08-2024 End: 06-84-8249dchdtoxlbu succinate (TOPROL XL) 25 MG extended release tablet Take 1 tablet by mouth 02/07/2024 02/06/2025 ActiveStart: 10-05-2022 End: 13-67-8955tqvlipjbiq succinate ER (TOPROL XL) 25 mg 24 hr tablet 10/05/2022 ActiveMOUNJARO 2.5 mg/0.5 mL pen injector (7 sources)Start: 30-54-4711EJZNNGYA 2.5 mg/0.5 mL pen injector Inject 5 mg subcutaneously. 04/06/2024 ActiveStart: 25-02-1995VNZXVTXH 2.5 mg/0.5 mL pen injector Inject 2.5 mg subcutaneously. 04/06/2024 ActiveMOUNJARO 5 MG/0.5ML SOAJ pen (4 sources)inject 5 mg by subcutaneous injection every weekMOUNJARO 5 MG/0.5ML SOAJ pen INJECT 5mg SUBCUTANEOUSLY (UNDER THE SKIN) once a week ActiveMounjaro 5 MG/0.5ML solution auto-injector (20 sources)Start: 70-99-1517zhzarw 5 mg by subcutaneous injection every week Mounjaro 5 MG/0.5ML solution auto-injector INJECT 5mg SUBCUTANEOUSLY (UNDER THE SKIN) once a week 06/23/2024 Activemupirocin 0.02 mg/mg topical ointment (1 source)RNA Synthetase Inhibitor AntibacterialStart: 71-80-5743Lnpeixiqz 2 % 1 application Externally Three times a day for 7 days Nov, Active Nirmatrelvir&Ritonavir 300/100 (Paxlovid, 300/100,) 20 x 150 MG & 10 x 100MG tablet therapypack (18 sources)Start: 01-22-2024 End: 49-54-4581Gaufupyzzxmk&Ritonavir 300/100 (Paxlovid, 300/100,) 20 x 150 MG & 10 x 100MG tablet therapypack Indications: COVID-19 Take 1 Dose by mouth See administration instructions 1 each 01/22/2024 05/11/2024 DiscontinuedStart: 62-44-9672Uxebypionrul&Ritonavir 300/100 (Paxlovid, 300/100,) 20 x 150 MG & 10 x 100MG tablet therapypack Indications: COVID-19 Take 1 Dose by mouth See administration instructions 1 each 01/22/2024 Activenystatin 100 unt/mg topical powder (20 sources)Polyene AntifungalStart: 39-28-8084xkuotnzd (Mycostatin) 199482 UNIT/GM powder APPLY 1 application TO THE AFFECTED AREA(S) THREE TIMESDAILY (EXTERNALLY) 07/31/2022 Active End: 96-54-0614zkjm 5 mL by mouth four times dailynystatin (MYCOSTATIN) 100,000 unit/mL suspension nystatin 100,000 unit/mL oral suspension TAKE 5 (FIVE) ml BY MOUTH FOUR TIMES DAILY 0 10/10/2022 DiscontinuedComment on above:nystatin 100,000 unit/mL oral suspension TAKE 5 (FIVE) ml BY MOUTH FOUR TIMES DAILYAPPLY 1 application TO THE AFFECTED AREA(S) THREE TIMES DAILYOTC NUTRITIONAL SUPPLEMENT (20 sources)OTC NUTRITIONAL SUPPLEMENT Patient uses medical marijuana, gummies,powder. ActiveOTC NUTRITIONAL SUPPLEMENT Patient uses medical marijuana, gummies,powder. 0 ActiveComment on above:Patient uses medical marijuana, gummies,powder.predniSONE 20 mg oral tablet (4 sources)Start: 03-25-2024 End: 25-84-6559ppwaktDWGN (Deltasone) 20 MG tablet Indications: Trochanteric bursitis of both hips 3 pills po daily X3 days, then 2 pills po daily X3 days , then 1 pill po daily X3 days then stop 9 days ,18 pills 18 tablet 1 03/25/2024 04/04/2024 Activepregabalin 300 mg oral capsule (20 sources)Start: 12-01-2024 End: 03-39-5567dxba 1 capsule by mouth in the morning, then take 1 capsule by mouth in the evening, then take 1 capsule by mouth at bedtimepregabalin (Lyrica) 300 MG capsule Indications: Lumbar spondylosis , Cervical spondylosis , Other nerve root and plexus disorders Take 1 capsule (300 mg) by mouth in the morning and 1 capsule (300 mg) in the evening and 1 capsule (300 mg) before bedtime. 90 capsule 2 12/23/2024 03/23/2025 ActiveStart: 98-99-3354lkgw 1 capsule by mouth in the morning, then take 1 capsule by mouth in the evening, then take 1 capsule by mouth at bedtimepregabalin (Lyrica) 300 MG capsule Indications: Lumbar spondylosis , Cervical spondylosis , Other nerve root and plexus disorders TAKE 1 CAPSULE BY MOUTH IN THE MORNING then TAKE 1 CAPSULE BY MOUTH IN THE EVENING then TAKE 1 CAPSULE BY MOUTH BEFORE bedtime 90 capsule 2 11/10/2024 ActiveStart: 07-27-2024 End: 17-49-7975hqyk 1 capsule by mouth in the morning, then take 1 capsule by mouth in the evening, then take 1 capsule by mouth at bedtimepregabalin (Lyrica) 300 MG capsule Indications: Lumbar spondylosis , Cervical spondylosis , Other nerve root and plexus disorders Take 1 capsule (300 mg) by mouth in the morning and 1 capsule (300 mg) in the evening and 1 capsule (300 mg) before bedtime. 90 capsule 2 07/27/2024 11/10/2024 DiscontinuedStart: 68-77-8536ievh 1 capsule by mouth three times daily at bedtimepregabalin (Lyrica) 200 MG capsule Indications: Lumbar spondylosis , Cervical spondylosis , Other nerve root and plexus disorders TAKE 1 CAPSULE BY MOUTH THREE TIMES DAILY (IN THE MORNING, IN THE EVENING, BEFORE bedtime) 90 capsule 2 06/02/2024 ActiveStart: 11-20-2023 End: 97-80-2460fdts 1 capsule by mouth in the morning, then take 1 capsule by mouth in the evening, then take 1 capsule by mouth at bedtimepregabalin (Lyrica) 200 MG capsule Indications: Lumbar spondylosis , Cervical spondylosis , Other nerve root and plexus disorders Take 1 capsule (200 mg) by mouth in the morning and 1 capsule (200 mg) in the evening and 1 capsule (200 mg) before bedtime. 270 capsule 02/26/2024 06/02/2024 DiscontinuedStart: 06-06-2023 End: 71-05-3407lqiy 1 capsule by mouth in the morning, then take 1 capsule by mouth in the evening, then take 1 capsule by mouth at bedtimepregabalin (Lyrica) 200 MG capsule Indications: Brachial plexus neuropathy Take 1 capsule (200 mg) by mouth in the morning and 1 capsule (200 mg) in the evening and 1 capsule (200 mg) before bedtime.90 capsule 2 06/06/2023 07/06/2023 ActiveStart: 04-27-2019 End: 64-84-6925zkex 4 capsules by mouth three times dailyPregabalin (Lyrica) 50 mg Capsule Discontinued 200 MG PO Three times daily April 27, 2019 1:00am January 08, 2024 10:32amStart: 97-84-0072qrpo 1 capsule by mouth three times dailyPregabalin (Lyrica) 50 mg Capsule Active 50 MG PO Three times daily April 27, 2019 1:00amtake 1 capsule by mouth every eight hoursLyrica 100 MG 1 capsule Orally TID ActiveComment on above:Take 200 mg by mouth three times daily.pregabalin 200 mg capsule TAKE 1 CAPSULE BY MOUTH THREE TIMES DAILYprochlorperazine 10 mg oral tablet (20 sources)PhenothiazineStart: 04-13-2024 End: 75-30-169869 mg, INTRAVENOUS, EVERY 4 HOURS NEEDED, 2 doses, Starting on Sat04/13/24 at 0920, Until Sat04/13/24 at 1324, Nausea/Vomiting - First Line - Parenteral, IV push over 2-5 minutes. If prochlorperazine PO order also exists, use prochlorperazine IV when patient is unable to tolerate PO. Protect From LightStart: 28-18-0080vhbg 25 mg rectal route every eight hours as needed prochlorperazine (COMPAZINE) 25 mg suppository 1 Suppository by RECTAL route every 8 hours as needed for nausea/vomiting. 20 Suppository 3 04/08/2024 Active Start: 04-08-2024 End: 31-03-582006 mg, INTRAVENOUS, EVERY 4 HOURS NEEDED, 2 doses, Starting on Sat04/08/24 at 0949, Until Sat04/08/24 at 1407, Nausea/Vomiting - First Line - Parenteral, IV push over 2-5 minutes. If prochlorperazine PO order also exists, use prochlorperazine IV when patient is unable to tolerate PO. Protect From LightStart: 28-16-0550klin 1 tablet by mouth every six hours as needed prochlorperazine (Compazine) 10 MG tablet Indications: Dizziness and giddiness TAKE 1 TABLET BY MOUTH EVERY 6 HOURS NEEDED 60 tablet 06/16/2024 Active Compazine 10 mg 1 tablet every 6 hrs prn ActiveComment on above:Take 10 mg by mouth every 6 hours as needed.progesterone 100 mg oral capsule (20 sources)ProgesteroneStart: 07-20-2024 End: 30-23-4282jisk 1 capsule by mouth once dailyprogesterone (Prometrium) 100 MG capsule Indications: Hormone imbalance , Hot flashes Take 1 capsule (100 mg) by mouth Daily 30 capsule 11 07/20/2024 07/20/2025 ActiveQULIPTA 60 mg tablet (20 sources)Start: 40-11-6930EYLXBYS 60 mg tablet 12/13/2021 ActiveStart: 48-00-5791LHDOBYH 60 mg tabletQulipta 60 MG tablet (4 sources)Start: 15-83-6432pddn 1 tablet by mouth once dailyQulipta 60 MG tablet Take 1 tablet by mouth Daily 12/08/2024 Activerimegepant 75 mg disintegrating oral tablet (20 sources)Start: 42-38-7448dxtm 1 tablet by mouth once as needed, then take 1 tablet by mouth every other day as neededRimegepant Sulfate (Nurtec) 75 MG tablet dispersible Indications: Intractable chronic migraine without aura and without status migrainosus Take 75 mg by mouth if needed (once at onset of migraine every other day PRN) 16 tablet 11 07/02/2023 Activerosuvastatin calcium 20 mg oral tablet (20 sources)HMG-CoA Reductase InhibitorStart: 29-30-2090ruth 20 mg by mouth once dailyRosuvastatin Active 20 MG PO Daily January 08, 2024 12:00amStart: 07-29-2023 End: 39-40-5520picl 1 tablet by mouth in the morningrosuvastatin (Crestor) 40 MG tablet Take 40 mg by mouth in the morning. 07/29/2023 Activesimvastatin 40 mg oral tablet (2 sources)HMG-CoA Reductase Inhibitortake 1 tablet by mouth every twenty-four hoursZocor 40 MG 1 tablet in the evening Orally Once a day for 30 day(s) Active thioctic acid 600 mg oral capsule (20 sources)Start: 25-88-0906nwlk 1 capsule by mouth once dailyAlpha Lipoic Acid 600 mg cap Take 1 capsule by mouth once daily. 11/14/2020 ActiveComment on above:Take 1 capsule by mouth once daily.tiZANidine 4 mg oral tablet (20 sources)Central alpha-2 Adrenergic AgonistStart: 11-09-2024 End: 10-25-3865icqe 2 tablets by mouth every eight hours for muscle spasms tiZANidine (Zanaflex) 4 MG tablet Indications: Radiculopathy, cervical region Take 2 tablets (8 mg)by mouth every 8 (eight) hours if needed for muscle spasms 180 tablet 2 12/23/2024 ActiveStart: 07-27-2024 End: 24-11-4902qibp 2 tablets by mouth every eight hours as needed for muscle spasmstiZANidine (Zanaflex) 4 MG tablet Indications: Radiculopathy, cervical region TAKE 2 TABLETS BY MOUTH EVERY 8 HOURS NEEDED FOR MUSCLE SPASMS 180 tablet 2 09/17/2024 ActiveStart: 18-74-9594xoAQEvumpo (ZANAFLEX) 4 MG tablet Take 1 tablet by mouth 07/27/2024 ActiveStart: 66-50-2626hmfy 2 tablets by mouth every eight hours as needed for muscle spasmstiZANidine (Zanaflex) 4 MG tablet Indications: Radiculopathy, cervical region TAKE 2 TABLETS BY MOUTH EVERY 8 HOURS NEEDED FOR MUSCLE SPASMS 180 tablet 2 04/28/2024 ActiveStart: 12-09-2023 End: 94-21-2713byoy 2 tablets by mouth every eight hours for muscle spasms tiZANidine (Zanaflex) 4 MG tablet Indications: Radiculopathy, cervical region Take 2 tablets (8 mg)by mouth every 8 (eight) hours if needed for muscle spasms 180 tablet 2 12/09/2023 ActiveStart: 06-06-2023 End: 29-29-2392mqPMVasjfx (Zanaflex) 4 MG tablet Indications: Radiculopathy, cervical region TAKE 1 TABLET BY MOUTH IN THE MORNING, then TAKE 1 TABLET in the afternoon & TAKE 2 TABLETS AT BEDTIME DIRECTED 120 tablet 6 06/06/2023 ActiveStart: 45-55-1510hrei 8 mg by mouth three times dailyTizanidine Active 8 MG PO Three times daily August 27, 2022 12:00amStart: 01-91-8040mzbo 8 mg by mouth once daily at bedtimeTizanidine Active 8 MG PO Daily at bedtime August 27, 2022 12:00amtake 1 tablet by mouth every six hours as neededtiZANidine (ZANAFLEX) 4 mg tablet Take 4 mg by mouth every 6 hours as needed. Active tiZANidine (Zanaflex) 2 MG tablet Take 4 mg by mouth at bedtime. 0 ActiveComment on above:Take 4 mg by mouth every 6 hours as needed.tizanidine 4 mg tablet traMADol hydrochloride 50 mg oral tablet (8 sources)Opioid AgonistStart: 12-23-2024 End: 64-47-0624xshc 1 tablet by mouth every six hours for paintraMADol (Ultram) 50 MG tablet Indications: Radiculopathy, cervical region , Lumbar spondylosis Take 1 tablet (50 mg) by mouth every 6 (six) hours if needed for severe pain for up to 5 days 15 jupdmo7212/23/2024 12/28/2024 ActiveStart: 08-05-2024 End: 73-84-5512xbgu 1 tablet by mouth every four hours as neededtraMADol (ULTRAM) 50 MG tablet Take 1 tablet by mouth every 4 hours as needed. 08/05/2024 ActivevalACYclovir 1000 mg oral tablet (20 sources)Herpesvirus Nucleoside Analog DNA Polymerase Inhibitor, Herpes Simplex Virus Nucleoside Analog DNA Polymerase Inhibitor, Herpes Zoster Virus Nucleoside Analog DNA Polymerase InhibitorStart: 03-31-2023 End: 32-34-2277yfdIUEfkwesq (Valtrex) 1 g tablet 03/31/2023 05/11/2024 Nqvgcunkjqqv36 hr venlafaxine 225 mg extended release oral tablet (20 sources)Serotonin and Norepinephrine Reuptake InhibitorStart: 08-83-7230izaz 1 tablet by mouth every twenty-four hours in the morningvenlafaxine XR (Effexor XR) 225 MG 24 hr tablet Indications: Major depressive disorder, single episode, severe without psychotic features (HCC) TAKE 1 TABLET BY MOUTH IN THE MORNING 30 tablet 2 09/28/2024 ActiveStart: 74-47-5244bfgg 1 tablet by mouth every twenty-four hours at mealtimevenlafaxine XR (Effexor XR) 225 MG 24 hr tablet Indications: Major depressive disorder, single episode, severe without psychotic features (HCC) (CMS/HCC) TAKE 1 TABLET BY MOUTH IN THE MORNING with meals 30 tablet 2 06/16/2024 ActiveStart: 74-02-0941wnjb 225 mg by mouth once daily Venlafaxine Active 225 MG PO Daily January 08, 2024 12:00amStart: 06-04-2023 End: 09-21-5675sfyd 1 tablet by mouth every twenty-four hours at mealtime venlafaxine XR (Effexor XR) 225 MG 24 hr tablet Indications: Major depressive disorder, single episode, severe without psychotic features (HCC) (CMS/HCC) Take 1 tablet (225 mg) by mouth in the morning. Take with meals. 30 tablet 2 06/04/2023 ActiveStart: 04-27-2019 End: 42-50-5024yngi 1 capsule by mouth every twenty-four hoursvenlafaxine ER (EFFEXOR XR) 150 mg 24 hr capsule Venlafaxine Active 150 MG Oral Daily April 27, 2019 6:43am 0 04/27/2019 07/17/2022 DiscontinuedStart: 04-27-2019 End: 66-44-1663aogu 1 capsule by mouth once dailyVenlafaxine (Effexor Xr) 150 mg Capsule,Extended Release 24hr Discontinued 225 MG PO Daily 2018 1:00am January 08, 2024 10:32amtake 1 capsule by mouth once dailyvenlafaxine ER (EFFEXOR XR) 150 mg 24 hr capsule Take 225 mg by mouth once daily. Activetake 1 capsule by mouth every twenty-four hoursEffexor XR 75 MG 1 capsule with food Orally Once a day total of 225 ActiveComment on above:Take 150 mg by mouth once daily.Venlafaxine Active 150 MG Oral Daily April 27, 2019 6:43amTake 225 mg by mouth once daily. warfarin sodium 5 mg oral tablet (4 sources)Vitamin K AntagonistStart: 77-65-2694ohvc 1 tablet by mouth once dailywarfarin (Coumadin) 5 MG tablet TAKE 1 TABLET BY MOUTH DAILY DIRECTED per Coumadin clinic 12/08/2024 Activewater 1000 mg/ml irrigation solution (4 sources)Start: 27-75-9267Ykbbt For Irrigation, Sterile (sterile water) irrigation 12/17/2024 Active Completed/Discontinued Medications MedicationDrug Class(es)DatesSig (Normalized)Sig (Original)acetaminophen 325 mg / oxyCODONE hydrochloride 10 mg oral tablet (6 sources)Opioid AgonistStart: 04-27-2019 End: 59-24-4610jwhr 1 tablet by mouth every four to six hoursOxycodone- Acetaminophen (Percocet) 10-325 mg Tablet Discontinued 1 TAB PO EVERY 4-6 HOURS April 27, 2019 1:00am August 27, 2022 2:21pm End: 00-61-5789hftYACSWI-acetaminophen (PERCOCET) 5-325 mg tablet Take by mouth. Once a week 0 07/17/2022 DiscontinuedComment on above:Take by mouth. Once a weekamitriptyline hydrochloride 25 mg oral tablet (14 sources)Tricyclic AntidepressantStart: 04-27-2019 End: 74-64-1837riwt 25 mg by mouth once daily at bedtimeAmitriptyline Discontinued 25 MG PO Daily at bedtime April 27, 2019 1:00am August 27, 2022 1:45pm End: 59-21-8891ntej 1 tablet by mouth at bedtimeAmitriptyline HCl 150 mg tablet amitriptyline 150 mg tablet TAKE 1 TABLET BY MOUTH AT BEDTIME 0 07/17/2022 Discontinued End: 87-99-7069llfs 3 tablets by mouth once daily at bedtimeamitriptyline (ELAVIL) 50 mg tablet Take 150 mg by mouth daily at bedtime. 0 07/17/2022 DiscontinuedComment on above:Take 150 mg by mouth daily at bedtime. amitriptyline 150 mg tablet TAKE 1 TABLET BY MOUTH AT BEDTIMEamylase 975471 unt / lipase 86506 unt / protease [id number] unt delayed release oral capsule (20 sources)Start: 04-14-2019 End: 69-22-7573jbqe 1 capsule by mouth three times dailyZENPEP 40,000-126,000- 168,000 unit cpDR Take 1 capsule by mouth three times daily. 0 09/18/201911/2022 Discontinued End: 66-73-2188dnlc 1 capsule by mouth in the morning, then take 1 capsule by mouth in the evening, then take 1 capsule by mouth at bedtimepancrelipase, Flh-Topu-Stpu, (Zenpep) 93250-648414 units capsule delayed-release particles capsule Take 1 capsule by mouth in the morning and 1 capsule in the evening and 1 capsule before bedtime. 05/11/2024 DiscontinuedComment on above:Take 1 capsule by mouth three times daily.Zenpep 40,000 unit-126,000 unit-168,000 unit capsule,delayed release TAKE 1 CAPSULE BY MOUTH THREE TIMES DAILYaspirin 81 mg chewable tablet (20 sources)Platelet Aggregation Inhibitor, Nonsteroidal Anti-inflammatory Drug Start: 07-27-2022 End: 67-79-8805jlzieux 81 mg chewable tablet CHEW 1 TABLET EVERY MORNING 07/27/2022 09/11/2024 Discontinuedtake 1 tablet by mouth onceaspirin 81 MG EC tablet Take 81 mg by mouth 1 (one) time. Active End: 41-05-6527swdpojm, enteric coated (ASPIRIN, ENTERIC COATED) 81 mg EC tablet Take 81 mg by mouth. 0 07/17/2022iscontinuedComment on above:Take 81 mg by mouth.CHEW 1 TABLET EVERY MORNINGbupivacaine hydrochloride 5 mg/ml injectable solution (20 sources)Amide Local AnestheticStart: 02-18-2025 End: 55-02-6299gfsokzvaahn (Marcaine) 0.5 % injection 5 mgStart: 02-18-2025 End: mg, Injection, Once, On Sat02/18/25 at 1315, For 1 doseStart: 10-08-2024 End: mg (1 mL), Infiltration, ONCE, 1 dose, On Sat10/08/24 at 1100 Start: 02-26-2024 End: 98-67-6312xlmlrsexixm (Marcaine) 0.5 % injection 5 mgStart: 02-26-2024 End: mg (1 mL), Injection, Once, On Sat02/26/24 at 1545, For 1 dose Start: 02-25-2023 End: 87-58-9888widjsonrfjm PF (Marcaine) 0.25 % injection 5 mgbusPIRone hydrochloride 7.5 mg oral tablet (4 sources)Start: 04-27-2019 End: 28-91-2316hzhj 7.5 mg by mouth twice dailyBuspirone Discontinued 7.5 MG PO Twice daily April 27, 2019 1:00am August 27, 2022 2:19pmcefTRIAXone (1 source)Cephalosporin AntibacterialStart: 60-42-7748Jlswhkmpbps 500mg Dec, 500 mgcitalopram 20 mg oral tablet (4 sources)Serotonin Reuptake InhibitorStart: 04-27-2019 End: 95-83-9206esrq 1 tablet by mouth once dailyCitalopram (Celexa) 20 mg Tablet Discontinued 20 MG PO Daily April 27, 2019 1:00am August 2:20pm cyproheptadine hydrochloride 4 mg oral tablet (20 sources)Start: 08-27-2022 End: 94-12-8772xpeh 4 mg by mouth twice dailyCyproheptadine Discontinued 4 MG PO Twice daily August 27, 2022 12:00am January 08, 2024 10:20amComment on above: Take 4 mg by mouth twice daily at 6AM and 9PM.dexamethasone phosphate 4 mg/ml injectable solution (13 sources)CorticosteroidStart: 02-18-2025 End: 40-55-3588eclSWEWFaxmwf sod phos (Decadron) injection 4 mgStart: 02-18-2025 End: mg (1 mL), Injection, Once, On Sondra 02/18/25 at 1315, For 1 dose Start: 12-24-2024 End: 72-88-2116lxqALOCCszcsw sod phos (Decadron) injection 4 mgStart: 12-24-2024 End: mg (1 mL), Injection, Once, On Sat12/24/24 at 1145, For 1 dose Start: 10-22-2024 End: 74-58-8068jydSFVJBdzzak sod phos (Decadron) injection 4 mgStart: 10-22-2024 End: 54 mg (1 mL), Injection, Once, On Sat10/22/24 at 1400, For 1 dose Start: 09-17-2024 End: 02-50-1773ajrCXAFSudmsf sod phos (Decadron) injection 4 mgStart: 09-17-2024 End: 54 mg (1 mL), Injection, Once, On Sat09/17/24 at 0815, For 1 dose Start: 04-13-2024 End: mg, INTRAVENOUS, ONCE, 1 dose, On Sat04/14/24 at 0900, Administer over 5 minutes.Start: 04-08-2024 End: mg, INTRAVENOUS, ONCE, 1 dose, On Sat04/08/24 at 1000, Administer over 5 minutes.Start: 02-26-2024 End: 33-59-4967ifhEYTELnykit sod phos (Decadron) injection 4 mgStart: 02-26-2024 End: mg (1 mL), Injection, Once, On Sat02/26/24 at 1530, For 1 dose diclofenac sodium 0.01 mg/mg topical gel (8 sources)Nonsteroidal Anti-inflammatory DrugStart: 09-13-2019 End: 93-65-7197camgf 2 g topically every four hours as neededdiclofenac sodium (VOLTAREN) 1 % topical gel APPLY 2 grams TO THE AFFECTED AREA(S) EVERY 4 HOURS ASNEEDED (topically) 0 09/13/2019 07/17/2022 DiscontinuedStart: 04-27-2019 End: 00-87-9075wmpag 2 g topically four times dailyDiclofenac Sodium Discontinued 2 GM TOPICAL Four times daily April 27, 2019 1:00am August 2:18pmStart: 65-55-6076oiuqq 2 g topically four times dailyDiclofenac Sodium Active 2 GM TOPICAL Four times daily April 27, 2019 12:00amComment on above:APPLY 2 grams TO THE AFFECTED AREA(S) EVERY 4 HOURS NEEDED (topically)diphenhydrAMINE (3 sources)Histamine-1 Receptor AntagonistStart: 04-14-2024 End: 32-51-844812 mg, INTRAVENOUS, NEEDED, 2 doses, Starting on Sat04/14/24 at 0847, Until Sat04/14/24 at 1259,Sedation/Dystonia/Akathisia/Anxiety 3rd line Start: 04-13-2024 End: 07-42-036198 mg, INTRAVENOUS, NEEDED, 2 doses, Starting on Sat04/13/24 at 0920, Until Sat04/13/24 at 1036,Sedation/Dystonia/Akathisia/Anxiety 3rd line Start: 04-08-2024 End: 52-96-752457 mg, INTRAVENOUS, NEEDED, 2 doses, Starting on Sat04/08/24 at 0949, Until Sat04/08/24 at 1407, Sedation/Dystonia/Akathisia/Anxiety 3rd line2 ml famotidine 10 mg/ml injection (2 sources)Histamine-2 Receptor AntagonistStart: 04-14-2024 End: 72-89-499806 mg, INTRAVENOUS, NEEDED, 1 dose, Starting on Sat04/14/24 at 0917, Until Sat04/14/24 at 0917, Heartburn, REFRIGERATEStart: 04-08-2024 End: 32-01-950285 mg, INTRAVENOUS, NEEDED, 1 dose, Starting on Sat04/08/24 at 1032, Until Sat04/08/24 at 1034, Heartburn, REFRIGERATEfluconazole 150 mg oral tablet (4 sources)Azole Antifungal End: 74-53-7951cbsz 1 tablet by mouth oncefluconazole (DIFLUCAN) 150 mg tablet fluconazole 150 mg tablet TAKE 1 TABLET BY MOUTH 1 (ONE) time dose 0 07/17/2022 DiscontinuedComment on above:fluconazole 150 mg tablet TAKE 1 TABLET BY MOUTH 1 (ONE) time doseHYDROmorphone hydrochloride 4 mg oral tablet (7 sources)Opioid AgonistStart: 04-27-2019 End: 68-75-3246dnhd 1 tablet by mouth every six hoursHydromorphone (Dilaudid) 4 mg Tablet Discontinued 4 MG PO Q6H April 27, 2019 1:00am August 27, 2022 2:20pm End: 70-48-3434uwwr 1 tablet by mouth every eight hours as neededHYDROmorphone (DILAUDID) 4 mg tablet Take 4 mg by mouth every 8 hours as needed. 0 04/17/2022 DiscontinuedComment on above:Take 4 mg by mouth every 8 hours as needed.insulin pump cart,auto,BT-cntr crtg (14 sources) End: 23-70-7679kpeffmj pump cart,auto,BT-cntr crtg Inject subcutaneously. Dr.Boujban Jorge Cardona 09/11/2024 Discontinuedinsulin pump cart,auto,BT-cntr crtg Inject subcutaneously. Dr.Boujban Jorge Cardona Activeinsulin pump cart,auto,BT-cntr crtg Inject subcutaneously. Dr.Boujban Jorge Cardona 0 Active Comment on above:Inject subcutaneously. Dr.Boujban Jorge SegoviaalamoTRIgine 200 mg oral tablet (20 sources)Mood Stabilizer, Anti-epileptic AgentStart: 08-27-2022 End: 34-19-3965oeym 200 mg by mouth once dailyLamotrigine Discontinued 200 MG PO Daily August 27, 2022 12:00am January 08, 2024 10:21amStart: 11-21-2020 End: 31-70-2032fryl 1 tablet by mouth twice dailylamoTRIgine (LAMICTAL) 150 mg tablet Take 150 mg by mouth twice daily. 11/21/2020 04/08/2024 Discontinued Comment on above:Take 150 mg by mouth twice daily. 10 ml lidocaine hydrochloride 20 mg/ml injection (20 sources)Antiarrhythmic, Amide Local AnestheticStart: 02-17-2025 End: 10-96-314293 mg (2 mL), Injection, Once, On Sat02/17/25 at 0000, For 1 dose Start: 12-23-2024 End: 72-53-6937kkqwapspa (Xylocaine) 2 % injection 40 mgStart: 10-22-2024 End: 63-42-3300dncezxngp (Xylocaine) 2 % injection 100 mgStart: 10-22-2024 End: 49-09-5265287 mg (5 mL), Intradermal, Once, On Sondra 10/22/24 at 0845, For 1 doseStart: 09-17-2024 End: 75-94-0312kvamnqzsl (Xylocaine) 2 % injection 40 mgStart: 09-17-2024 End: 90-44-114324 mg (2 mL), Intradermal, Once, On Sondra 09/17/24 at 0815, For 1 dose, Patient was seen on 12/11/2024 At8:15am.Start: 09-10-2024 End: 26-15-2288exgouwckw (Xylocaine) 2 % injection 40 mgStart: 07-16-2024 End: 22-55-4166noiwnovwm (Xylocaine) 2 % injection 20 mgStart: 02-26-2024 End: 94-63-6119iibsfekjs (Xylocaine) 1 % injection 10 mgStart: 02-26-2024 End: 87-34-277015 mg (1 mL), Injection, Once, On Sat02/26/24 at 1530, For 1 dose End: 18-44-9306ttkjslvqj (XYLOCAINE) 10 mg/mL (1 %) injection lidocaine HCl 10 mg/mL (1 %) injection solution inj 0 07/17/2022 Discontinuedlidocaine (XYLOCAINE) 10 mg/mL (1 %) injection lidocaine HCl 10 mg/mL (1 %) injection solution inj 0 ActiveComment on above:lidocaine HCl 10 mg/mL (1 %) injection solution ngdFigsff-Xjzucwyl-Wixlosi (Zenpep) 40,000-126,000- 168,000 unit Capsule,Delayed Release(Dr/Ec) (3 sources)Start: 08-27-2022 End: 27-92-3213qvnf 06186-029699 capsules by mouth three times daily Sgrhkg-Fyjtmapy-Ggfxkdd (Zenpep) 40,000-126,000- 168,000 unit Capsule,Delayed Release(Dr/Ec) Discontinued 1 CAP PO Three times daily August 27, 2022 12:00am January 08, 2024 10:21am with mealsStart: 37-45-4990wtfo 77892-059436 capsules by mouth three times htrfoIozqwb-Ocgxktdg-Zlconfc (Zenpep) 40,000-126,000- 168,000 unit Capsule,Delayed Release(Dr/Ec) Active1 CAP PO Three times daily August 27, 2022 12:00am with dbzwu521 ml magnesium sulfate 10 mg/ml injection (3 sources)Start: 04-13-2024 End: g, INTRAVENOUS, at 100-200 mL/hr, Administer over 0.5-1 Hours, ONCE, 1 dose, On Sat04/14/24 at 0900, Magnesium sulfate iv bolus will be infused at a rate of 1 gram/hr The following nursing unitsmay administer 2 g dose over 1 hour if necessary: ICUs/PACU/ED, Adult Hematology/Oncology, Labor and Delivery, Cardiac Stepdown, Headache Clinic If necessary, a magnesium sulfate bolus may be administered greater than 2 g/hr for the following indications: Adult and Pediatric Asthma Exacerbations, [place] de Pointes, Pediatric BMT and Hematology/Oncology, Eclampsia or PreeclampsiaStart: 04-08-2024 End: g, INTRAVENOUS, at 100-200 mL/hr, Administer over [...] Pointes, Pediatric BMT and Hematology/Oncology, Eclampsia or Preeclampsiameloxicam 15 mg oral tablet (4 sources)Nonsteroidal Anti-inflammatory DrugStart: 04-27-2019 End: 39-31-8639obow 1 tablet by mouth once dailyMeloxicam (Mobic) 15 mg Tablet Discontinued 15 MG PO Daily April 27, 2019 1:00am August 27, 2022 2:20pm metaxalone 800 mg oral tablet (4 sources)Start: 04-27-2019 End: 41-15-7714yzpj 1 tablet by mouth three times dailyMetaxalone (Skelaxin) 800 mg Tablet Discontinued 800 MG PO Three times daily April 27, 2019 1:00am August 27, 2022 2:20pmmethocarbamol iv infusion 1,000 mg in NaCl 0.9% 100 mL (ROBAXIN) (3 sources)Start: 04-14-2024 End: ,000 mg, INTRAVENOUS, Administer over 30 Minutes, ONCE, 1 dose, On Sat04/14/24 at 0900, AdministerIV while in recumbent position. Maintain position for at least 10-15 minutes following infusion.Start: 04-13-2024 End: ,000 mg, INTRAVENOUS, Administer over 30 Minutes, ONCE, 1 dose, On Sat04/13/24 at 0930, AdministerIV while in recumbent position. Maintain position for at least 10-15 minutes following infusion.Start: 04-08-2024 End: ,000 mg, INTRAVENOUS, Administer over 30 Minutes, ONCE, 1 dose, On Sat04/08/24 at 1000, Administer IV while in recumbent position. Maintain position for at least 10-15 minutes following infusion.nabumetone 500 mg oral tablet (2 sources)Nonsteroidal Anti-inflammatory DrugStart: 09-05-2022 End: 77-78-6126lvvy 1 tablet by mouth every twelve hours as needednabumetone (RELAFEN) 500 mg tablet Take 500 mg by mouth twice daily as needed. 0 09/05/2022 01/02/2023 DiscontinuedComment on above:Take 500 mg by mouth twice daily as needed.2 ml ondansetron 2 mg/ml injection (1 source)Serotonin-3 Receptor AntagonistStart: 04-14-2024 End: 48 mg, INTRAVENOUS, ONCE, 1 dose, On Sat04/14/24 at 0930, Give IV push over 2 minutesStart: 04-14-2024 End: 48 mg, INTRAVENOUS, ONCE, 1 dose, On Sat04/14/24 at 0930, Give IV push over 2 minutesOXcarbazepine 300 mg oral tablet (4 sources)Anti-epileptic AgentStart: 04-27-2019 End: 69-04-7058kugu 1 tablet by mouth twice dailyOxcarbazepine (Trileptal) 300 mg Tablet Discontinued 300 MG PO Twice daily April 27, 2019 1:00am August 27, 2022 2:21pmoxyCODONE hydrochloride 5 mg oral tablet (2 sources)Opioid AgonistStart: 09-20-2022 End: 29-34-1700boia 1 tablet by mouth once dailyoxyCODONE IR (ROXICODONE) 5 mg immediate release tablet Take 5 mg by mouth once daily. 0 DiscontinuedComment on above:Take 5 mg by mouth once daily.promethazine hydrochloride 25 mg oral tablet (4 sources)Phenothiazine End: 21-96-0752pzxgptqtqupp (PHENERGAN) 25 mg tablet promethazine 25 mg tablet 0 07/17/2022 DiscontinuedComment on above:promethazine 25 mg rqqndh8327 ml sodium chloride 9 mg/ml injection (2 sources)Start: 04-14-2024 End: ,000 mL, INTRAVENOUS, at 999 mL/hr, Administer over 1 Hours, ONCE, 1 dose, On Sat04/14/24 at 0900Start: 04-08-2024 End: ,000 mL, INTRAVENOUS, at 999 mL/hr, Administer over 1 Hours, ONCE, 1 dose, On Sat04/08/24 at 1000topiramate 100 mg oral tablet (14 sources)Start: 08-01-2016 End: 71-43-0645tsoa 1 tablet by mouth three times dailyTopiramate (Topamax) 100 mg Tablet Discontinued 100 MG PO Three times daily April 27, 2019 1:00am August 27, 2022 2:21pmStart: 08-01-2016 End: 57-91-3647ppexktlzte (TOPAMAX) 100 mg tablet Take 1/2 tab in AM and 1 tab at bedtime 0 08/01/2016 07/17/2022 DiscontinuedStart: 58-10-5964ptajccdqgb (TOPAMAX) 100 mg tablet Topiramate Active 100 MG Oral Three times daily April 27, 2019 6:43am 0 08/01/2016 ActiveComment on above:Take 1/2 tab in AM and 1 tab at bedtimeTopiramate Active 100 MG Oral Three times daily April 27, 2019 6:43amToradol 30 mg/ml (1 source)Start: 38-48-0894Bjtgtiz 30 mg/ml Dec, 30 mgtraZODone hydrochloride 50 mg oral tablet (7 sources)Serotonin Reuptake InhibitorStart: 05-23-2023 End: 71-28-3077wlnLFRqcb (Desyrel) 50 MG tablet Indications: Insomnia, unspecified type Take 2 tablets (100 mg) bymouth as needed at bedtime for sleep 60 tablet 2 05/23/2023 06/20/2023 Discontinuedtake 1 tablet by mouth once daily traZODone (DESYREL) 50 MG tablet Take 1 tablet by mouth nightly Active Problems Active Problems Problem ClassificationProblemDateDocumented DateEpisodic/ChronicAnxiety disorders (20 sources)Generalized anxiety disorder; Translations: [Generalized anxiety disorder]Onset: 08-29-2022 Resolved: 570114-20-7540XdaxxvfRggeks (20 sources)Unspecified asthma, uncomplicated; Translations: [Mild intermittent asthma]Onset: 280573-02-8556NxjgwztPptnbhc obstructive pulmonary disease and bronchiectasis (20 sources)Asthma-chronic obstructive pulmonary disease overlap syndrome; Translations: [Chronic obstructive pulmonary disease, unspecified]Onset: 04-24-2005 Resolved: 000687-09-6978MmnihhiIrzxjoiynk associated with dizziness or vertigo (20 sources)Vertigo; Translations: [Dizziness and giddiness]Onset: 08-29-2022 Resolved: 115935-31-3281CxjhhisgNctfrgfz atherosclerosis and other heart disease (20 sources)Unstable angina; Translations: [Coronary arteriosclerosis]Onset: 050080-03-9769FkqltwpXbdrrnzs, dementia, and amnestic and other cognitive disorders (20 sources)Postconcussion syndrome; Translations: [Postconcussional syndrome] Onset: 075198-60-0551UfqgqlvTzdmlobb mellitus with complications (20 sources)Type 2 diabetes mellitus with other specified complication; Translations: [Type 2 diabetes mellituswith hyperglycemia]Onset: 11-16-2021 Resolved: 37-85-6553JhpyumlOptgzwldm of lipid metabolism (20 sources)Mixed hyperlipidemia; Translations: [Pure hypercholesterolemia, unspecified]Onset: 04-02-2022 Resolved: 607419-60-0580UgxgnmnQasozqmda usually diagnosed in infancy, childhood, or adolescence (20 sources)Attention deficit hyperactivity disorder, predominantly inattentive type; Translations: [Other specified behavioral and emotional disorders with onset usually occurring in childhood and adolescence]Onset: 456532-94-5302 ChronicEssential hypertension (20 sources)Essential (primary) hypertension; Translations: [Benign essential hypertension]Onset: 582050-73-4535OmhtvgiEpnbhoeyojkltfwp hemorrhage (4 sources)Rectal hemorrhage; Translations: [Hemorrhage of anus and rectum] 49-98-7335NdxrwmqcMulsvydj; including migraine (20 sources)Chronic intractable migraine without aura; Translations: [Chronic migraine without aura, intractable, without status migrainosus]Onset: 04-24-2005 Resolved: 26-75-0958XhuwatmOkbjfyji; including migraine (20 sources)Chronic daily headache; Translations: [Chronic daily headache]Onset: 06-27-2018 Resolved: 19-32-4439BzddhppyCwljhbku; including migraine (1 source)Headache; including migraine; Translations: [Chronic daily headache] Onset: 96-74-0155Twru disorders (20 sources)Severe major depression, single episode, without psychotic features; Translations: [Major depressive disorder, single episode, severe without psychotic features]Onset: 08-29-2022 Resolved: 339947-70-5215AojpsxaThaifquknizy breast conditions (4 sources)Unspecified lump in unspecified breast; Translations: [UNSPECIFIED LUMP IN UNSPEC BREAST]Onset: 39-42-2900WjgrabuaHlsqbjpghpu chest pain (4 sources)Chest pain, unspecified; Translations: [CHEST PAIN UNSPECIFIED]Onset: 14-49-2135BjjdseudZeflm aftercare (2 sources)Long-term current use of insulin; Translations: [skilled nursing (current) use of insulin]68-35-9783RbmfseazUrpcy connective tissue disease (20 sources)Bilateral trochanteric bursitis; Translations: [Trochanteric bursitis, right hip]Onset: 941635-85-2022CnjqqybhMtnfp connective tissue disease (1 source)Adhesive capsulitis of left shoulder; Translations: [Adhesive capsulitis of left shoulder]Onset: 91-17-8693FwjxncnlYwubx endocrine disorders (1 source)Polycystic ovarian syndrome; Translations: [POLYCYSTIC OVARIAN SYNDROME]Onset: 58-80-1335CbnlmuqVhjpj endocrine disorders (20 sources)Polycystic ovary; Translations: [Polycystic ovarian syndrome]Onset: 656455-24-8841IanrvzwRpjzj eye disorders (1 source)Other disorders of optic nerve, not elsewhere classified, unspecified eye; Translations: [Other disorders of optic nerve, not elsewhere classified, unspecified eye]Onset: 27-83-4206KdulldrVjgjl lower respiratory disease (1 source)Other forms of dyspnea; Translations: [OTHER FORMS OF DYSPNEA]Onset: 72-04-6450LpssruqzPysuu nervous system disorders (1 source)Complex regional pain syndrome I, unspecified; Translations: [COMPLEX REGION PAIN SYND I UNS]Onset: 99-39-8830HoiwskwEiwva nervous system disorders (20 sources)Brachial plexus disorder; Translations: [Brachial plexus disorders] Onset: 132769-54-8530XiiapchYztoo nervous system disorders (20 sources)Complex regional pain syndrome type I; Translations: [Complex regional pain syndrome I, unspecified]Onset: 058141-71-2127RdgebdiCplvs nervous system disorders (20 sources)Chronic pain syndrome; Translations: [Chronic pain syndrome]Onset: 06-27-2018 Resolved: 860301-89-5781SrbmymxCdeti nervous system disorders (20 sources)Disorder of nerve root and/or plexus; Translations: [Other nerve root and plexus disorders]Onset: 502996-27-1285WfhjxrpOyqqc skin disorders (4 sources)Localized swelling, mass and lump, trunk; Translations: [LOCALIZD SWELLING MASS AND LUMP TRUNK]Onset: 05-75-0564QamsiqmoMcaitcdrst disorders (not diabetes) (20 sources)Idiopathic chronic pancreatitis; Translations: [Other chronic pancreatitis]Onset: 689143-98-5227ImsbjfwNxjddhmk codes; unclassified (1 source)Family history of malignant neoplasm of breast; Translations: [FAMILY HX MALIG NEOPLASM OF BREAST]Onset: 17-28-8252JoxwrxenDabvzjts codes; unclassified (2 sources)Pain; Translations: [Pain, unspecified]41-83-4788OwikodvzNmpzfwdm codes; unclassified (1 source)Pain, unspecified; Translations: [Pain, unspecified]Onset: 10-08-2024 EpisodicSpondylosis; intervertebral disc disorders; other back problems (20 sources)Degeneration of lumbosacral intervertebral disc; Translations: [Other intervertebral disc degeneration, lumbosacral region]Onset: 02-28-2021 Resolved: 850067-42-0205SckbsirNiennyqghsv; intervertebral disc disorders; other back problems (20 sources)Cervico-occipital neuralgia; Translations: [Occipital neuralgia] Onset: 11-07-2016 Resolved: 900466-72-9458LlvebkstNilpoju and strains (4 sources)Strain of muscle, fascia and tendon of lower back, initial encounter; Translations: [Strain of muscle, fascia and tendon of right hip, initial encounter]Onset: 09-52-2176LtepilwfWueztetny-related disorders (20 sources)Nicotine dependence, unspecified, uncomplicated; Translations: [Nicotine dependence, cigarettes, uncomplicated]Onset: 847712-13-5783 ChronicUnclassified (2 sources)COUGH, UNSPECIFIED; Translations: [COUGH, UNSPECIFIED]Onset: 01-56-9611Gcyelyocawmo (1 source)PRECERT- RIGHT MBB L345 #136-23-3925Ezerjkkrkfjp (1 source)Obesity, class 1; Translations: [Obesity, class 1]Onset: 09-22-2024 Viral infection (1 source)COVID-19; Translations: [COVID-19]Onset: 11-16-2021 Past or Other Problems Problem ClassificationProblemDateDocumented DateEpisodic/ChronicAbdominal pain (8 sources)Unspecified abdominal pain; Translations: [Epigastric pain]Onset: 47-82-5468GyckgsspCgcpohq dysrhythmias (2 sources)Palpitations; Translations: [Palpitations]Onset: 51-61-3364Nnegnooc Coronary atherosclerosis and other heart disease (2 sources)Presence of coronary angioplasty implant and graft; Translations: [Presence of coronary angioplastyimplant and graft]Onset: 52-45-4341Drgutfhq Diabetes mellitus without complication (20 sources)Type 2 diabetes mellitus without complications; Translations: [Diabetes mellitus]Onset: 04-02-2022 Resolved: 277555-52-8580ViwvxdfLaoykueq of upper limb (20 sources)Fracture of ulna; Translations: [Unspecified fracture of shaft of unspecified ulna, initial encounter for closed fracture]Onset: 01-30-2016 Resolved: 439320-54-4345FycazfcuAaxswhpzybzin symptoms and ill-defined conditions (20 sources)Dysuria; Translations: [Dysuria]Onset: 12-13-2023 Resolved: 752345-48-0842DajdxbdvCjnm disorders (20 sources)Mood disordersOnset: 03-11-2023 Resolved: 625750-90-3443Jorlbyudbhmlna (20 sources)Osteoarthritis; Translations: [Unspecified osteoarthritis, unspecified site]Onset: 08-29-2022 Resolved: 169871-66-3050AefyxhtAqpxp aftercare (3 sources)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; Translations: [ASSISTED CURRENT USE OF INSULIN]Onset: 57-29-2172KqqckdlxElsar aftercare (3 sources)skilled nursing (current) use of oral hypoglycemic drugs; Translations: [ASSISTED USE ORAL HYPOGLYCEMIC DX]Onset: 28-50-9125ErzvimejHocex aftercare (1 source)Other skilled nursing (current) drug therapy; Translations: [OTH LOGISTICS SYSTEM ENGINEER CURRENT DRUG THERAPY]Onset: 01-60-0031RqxbpolvIignj aftercare (20 sources)Long-term current use of drug therapy; Translations: [Other termite inspector (current) drug therapy]Onset: 046899-75-5672GmfexurkFzlhq and unspecified benign neoplasm (20 sources)Lipoma of lower back; Translations: [Benign lipomatous neoplasm of skin and subcutaneous tissue of trunk]Onset: 12-25-2022 Resolved: 930662-77-1692OsqhjtqoWgtmf complications of (20 sources)Maternal obesity complicating , childbirth and the puerperium, antepartum; Translations: [Obesity complicating , unspecified trimester]Onset: 04-19-2009 Resolved: 095483-51-5135TvsyucwNhdlf complications of (20 sources)Tobacco use in mother complicating ; Translations: [Smoking (tobacco) complicating , unspecified trimester]Onset: 02-15-2009 Resolved: 187328-30-6079TrhryfzcIpjim connective tissue disease (20 sources)Adhesive capsulitis of left shoulder; Translations: [Adhesive capsulitis of left shoulder]Onset: 08-29-2022 Resolved: 292180-66-0712MnaxveanXjmtc connective tissue disease (20 sources)Enthesopathy of hip region; Translations: [Other specified enthesopathies of unspecified lower limb, excluding foot]Onset: 12-11-2022 Resolved: 324116-87-6196CdosjksmVdkce connective tissue disease (20 sources)Muscle pain; Translations: [Myalgia, unspecified site]Onset: 12-11-2022 Resolved: 416782-26-8048NaggamtfUxcpe connective tissue disease (1 source)Neuropathic pain; Translations: [Neuralgia and neuritis, unspecified] Onset: 552117-35-1897SjhcvhmhGjyju connective tissue disease (20 sources)Spasm of cervical paraspinous muscle; Translations: [Other muscle spasm]Onset: 12-17-2022 Resolved: 373671-07-2727JaeraldfCylrz connective tissue disease (20 sources)Trochanteric bursitis of right hip; Translations: [Trochanteric bursitis, right hip]Onset: 289583-59-9949SyustoyvWnofj connective tissue disease (20 sources)Trochanteric bursitis of left hip; Translations: [Trochanteric bursitis, left hip]Onset: 624799-30-1730LsfszmqhHaxag ear and sense organ disorders (2 sources)Cellulitis of left external earOnset: 12-09-2021 Resolved: 17-43-7955AqnnxqbmWihen eye disorders (20 sources)Disorder of optic nerve; Translations: [Other disorders of optic nerve, not elsewhere classified, unspecified eye]Onset: 08-29-2022 Resolved: 529562-11-3002UaghxeoOszhr female genital disorders (20 sources)Disorder of female genital organs; Translations: [Other specified conditions associated with femalegenital organs and menstrual cycle]Onset: 12-11-2022 Resolved: 675726-06-2302QvdjprjrJjlhx female genital disorders (20 sources)Vaginal dryness; Translations: [Other specified noninflammatory disorders of vagina]Onset: 12-11-2022 Resolved: 111709-47-9702BbroypwhEpywg gastrointestinal disorders (1 source)Constipation, unspecified; Translations: [CONSTIPATION UNSPECIFIED] Onset: 68-05-6766CoemqtplWgznj lower respiratory disease (20 sources)Dyspnea; Translations: [Shortness of breath]Onset: 04-02-2022 Resolved: 617990-81-6993WcqwqaifNuwjw lower respiratory disease (20 sources)Dyspnea on exertion; Translations: [Other forms of dyspnea]Onset: 07-06-2022 Resolved: 523213-08-6460BlbemkfhQdtpg non-traumatic joint disorders (20 sources)Pain of left shoulder joint; Translations: [Pain in left shoulder] Onset: 09-14-2020 Resolved: 969699-79-0534OpuudfbcRdqap screening for suspected conditions (not mental disorders or infectious disease) (20 sources)Thyroid hormone tests abnormal; Translations: [Other specified abnormal findings of blood chemistry]Onset: 385547-98-7122DmhypeqeAaxru skin disorders (20 sources)Mass of skin of back; Translations: [Localized swelling, mass and lump, trunk]Onset: 12-25-2022 Resolved: 521453-34-2763NpylukhlBoxqf upper respiratory infections (20 sources)Acute pansinusitis; Translations: [Acute pansinusitis, unspecified] Onset: 05-11-2024 Resolved: 575148-82-7775CsrxblisTfyioama codes; unclassified (1 source)Acquired absence of other specified parts of digestive tract; Translations: [ACQ ABSENCE OTH PART DIGESTV TRACT]Onset: 77-42-5350Hunnpgcl Residual codes; unclassified (20 sources)Insomnia; Translations: [Insomnia, unspecified]Onset: 09-21-2022 01-82-6814NuxxbvskTlczlkmi codes; unclassified (20 sources)Bilateral lower limb edema; Translations: [Localized edema]Onset: 037199-85-7512NcuoiyvmZevaeiil codes; unclassified (20 sources)FH: premature coronary heart disease; Translations: [Family history of ischemic heart disease and other diseases of the circulatory system]Onset: 07-06-2022 Resolved: 025613-22-8022TllxessoIihvnlvx codes; unclassified (20 sources)Memory impairment; Translations: [Other amnesia]Onset: 05-25-2020 Resolved: 493312-07-0608LrgfvnntOmkqecwiuyfg (1 source)COUGH, UNSPECIFIED; Translations: [COUGH, UNSPECIFIED]Onset: 55-09-2403Ebmbdaizrezd (1 source)Obesity, class 1; Translations: [Obesity, class 1]Onset: 09-22-2024 Results Test NameValueInterpretationReference RangeFacilityEmployee Health Noteon 82-11-5361Vzirbxxo Health Note [id number]#1.00[facility]GTTri[facility] Employee Health [id number]#2.00OTBarney Children's Medical CenterCoding Summaryon 94-54-5038Gmecbq SummaryHTMLBase 64 FssmptqqTDo6pIv+PGhlYWQ+OT6PZCFtD56uqFJzuZ0bC0PLQSxXLahoHXNJRXyTMhShfrPvIM8naYJz ZXJu [file] IGN (more content not included)...NormalMagruder HospitalCoding SummaryHTMLBase 64 QjmbmhpsWWk4dQa+PGhlYWQ+YW3WFFHnN48ftNGzfC0mK5CHCJvMCfazFTZXXKqFTjIrqnGcHJ6gdOKz ZXJu [file] IGN (more content not included)...[facility] Health Noteon 02-27-5177Rzjnpjsa Health Note [id number]#1.00OT[facility] Employee Health Noteon 72-62-1943Owwfotpn Health Note [id number]#1.00[facility] Employee Health [id number]#1.00OTChildren[facility] for Rehabilitation Health Note [id number]#1.00[facility] Health [id number]#2.00OTBarney Children's Medical Center36on 42-44-329931YCY for patient to call us to schedule an appt.[facility] Noteon 03-15-2025 Employee Health [id number]#1.00OTBarney Children's Medical Center36on 75-08-867173Vbwgrjugq, glipizide to [facility]36Voicemail, patient needs an order of her Dexcom G7 sensors sent to her [employer] company.[facility] DaytonRefillon 74-36-0690Aqizwx [id number] Jacquelyn Zeng 1975 F Date Provider Department Center 03/07/2025 JOSE FRANCISCO PHAM [email or web address]] Family History Problem Relation Age of Onset Coronary artery disease Mother Heart attack Mother Cancer Mother Heart attack Father 54 Family Status - Relation Status Age at Mother Father Reason for Visit and Comments: Med Refill [[id number]][facility] Health Note on 07-96-9272Piplnrhj Health Note [id number]#1.00[facility] Employee Health [id number]#1.00OTGTSt. [facility]'s Medical Center Health Note [id number]#1.00[facility] Employee Health [id number]#1.00OTChildren[facility] for Rehabilitation Health Note [id number]#1.00[facility] Refillon [id number] Jacquelyn Zeng 1975 F Date Provider Department Center 03/04/2025 JOSE FRANCISCO PHAM [email or web address]] Family History Problem Relation Age of Onset Coronary artery disease Mother Heart attack Mother Cancer Mother Heart attack Father 54 Family Status - Relation Status Age at Mother Father Reason for Visit and Comments: Med Refill [[id number]][facility] DaytonCNPNon 03-02-2025 CNPNTelephone (NIQ) JACQUELYN ZENG ([id number]) 1975 F Date Time Provider Department 03/02/25 KINGA MENDES During your visit today, we recorded the following information about you: Ariana Jorgensen 03/02/2025 4:45 PM Signed Called patient and left a voicemail. C9 on 02/28/25. Have asked for an extention from [facility] but have not heard back yet. Botox appt will need to be moved to a later date to allow time to approve the extention. Appt on 03/03/25 flipped to a follow up to discuss options with the provider while we wait for approval. Please call [phone], ask for kinga mendes's office, and from there the Botox Coordinator. Will call back in the am to discuss options. No MyChart could be sent Cooper Jean 03/03/2025 9:41 AM Signed Patient is upset about the appointment cancellation/reschedule. She feels this is at the last minute. Patient finds this unacceptable. I apologized on our behalf, but she said she would be contacting someone about this. Patient would like a callback today. Ariana Jorgensen 03/03/2025 12:23 PM Signed Called patient and explained that the C9 was only approved until 02/28/25 and our system did not update us of the issue until 03/01/25 when the C9 was no longer approved. A message was sent to [facility] for an extension so the pt hopefully does not have to go through the process of waiting for another C9 but it can take some time to hear back from [facility]. I informed the patient that I would be notified if they do extend the C9 and that I would call and schedule an appointment with her once we have the extension in place. Allergies As of Date: 03/02/2025 Noted Allergy Reaction DESONIDE 11/24/2012 14 - [...] Date Reviewed: 12/04/2024 Reviewed by: Kinga Mendes APRN.NURSING EDUCATOR - Fully Assessed Prescriptions as of 03/03/2025 - dihydroergotamine (DHE) 1 mg/mL injection Inject [...] with meals. - ALPRAZolam (XANAX) 0.5 mg t (more content not included)...[facility] HospitalPNon 52-95-0515ZANFPhpdwyzoa (NHMNS2) JACQUELYN ZENG ([id number]) 1975 F Date Time Provider Department 01/18/25 KINGA MENDES FLMNS2 During your visit today, we recorded the following information about you: Anne-Marie Mensah 01/18/2025 4:46 PM Signed Received completed form in person Uploaded form into patients scanned docs and faxed to [facility] Pre-Access -[phone] Allergies As of Date: 01/18/2025 Noted Allergy [...] Date Reviewed: 12/04/2024 Reviewed by: Kinga Mendes APRN.NURSING EDUCATOR - Fully Assessed Reason for Visit: Forms [213] Cmt: c9 Prescriptions as of 01/18/2025 - [...] 3 ML 25 X 5/8 use with [facility] Facility-Administered Medications as of 01/18/2025 - onabotulinum toxin type A 200 Units injection (BOTOX) Problem List As Of Date 01/18/2025 Noted Resolved Migraine without aura, without mention of intra*04/24/2005 08/01/2016 CHRON OBST ASTHMA UNSPECIFIED [J44.89] 04/24/2005 Bilateral occipital neuralgia [M54.81] 11/07/2016 Status migrainosus [G43.901] 04/08/2024 Encounter Status:Closed by ANNE-MARIE MENSAH on 01/18/25No[facility]iton 34-04-2429Iyjirc-up [id number] Jacquelyn Zeng 1975 F Date Provider Department Center 01/12/2025 241-FARZAD DUMONT Family History Problem Relation Age of Onset Coronary artery disease Mother Heart attack Mother Cancer Mother Heart attack Father 54 Family Status - Relation Status Age at Mother Father Level of Service:84792 UT OFFICE/OUTPATIENT NEW MODERATE MDM 45 MINUTESNormal [facility] CenterOrders Onlyon 67-67-0999Exytcb [id number] Jacquelyn Zeng 1975 F Date Provider Department Center 01/12/2025 AVIS CORREA Family History Problem Relation Age of Onset Coronary artery disease Mother Heart attack Mother Cancer Mother Heart attack Father 54 Family Status - Relation Status Age at Mother Father DeceasedNormalUniSelect Medical [facility]Health [facility]36on Regarding lab results from 12/31/2024: MD Chelo Thomas MA Her triglycerides are much better and cholesterol is in good range. Same treatment and follow up. Phone call to patient, advised patient of lab results per Dr. Clark request. Patient verbalized understanding and agreed with plan of care.[facility]36on 85-23-996085Btdflylrd lab results from 12/31/2024: MD Chelo Thomas MA Her triglycerides are much better and cholesterol is in good range. Same treatment and follow up.[facility] DaytonFollow-Upon 34-99-5271Aoiyuk-[id number] Jacquelyn Zeng 1975 F Date Provider Department Center 01/04/2025 JOSE FRANCISCO PHAM [email or web address]] Family History Problem Relation Age of Onset Coronary artery disease Mother Heart attack Mother Cancer Mother Heart attack Father 54 Family Status - Relation Status Age at Mother Father Level of Service:02864 UT OFFICE/OUTPATIENT ESTABLISHED LOW MDM 20 [facility] CBC WITH AUTO DIFFon 12-98-6792PUIHAADEG ABSOLUTE AUTO0.1NOMS HealthcareBasophils/100 WBC (Bld)1.1 %0.2 - 2.0 %NOMS HealthcareEosinophils/100 WBC (Bld)4.6 %0.9 - 7.0 %NOMS HealthcareErythrocyte distribution width (RBC) [Ratio]18.4 %High11.0 - 15.0 %NOMS HealthcareHematocrit (Bld) [Volume fraction]41.5 %36.0 - 48.0 %NOMS HealthcareHemoglobin (Bld) [Mass/Vol]13.4 g/dL12.0 - 16.0 g/dLJefferson Memorial HospitalIMMATURE GRANULOCYTES ABS AUTO 0.02NOCapital Region Medical CenterImmature granulocytes/100 WBC (Bld)0.2 %0.0 - 0.5 %[facility] Memorial HospitalInterpretation and review of laboratory resultsAbnormRegional Hospital of Scranton LYMPHOCYTES ABSOLUTE AUTO3.7NOCapital Region Medical CenterLymphocytes/100 WBC (Bld)35.2 %20.5 - 60.0 %[facility] HospitalH (RBC) [Entitic mass]27.6 pg26.7 - 34.0 pgLee's Summit HospitalHC (RBC) [Mass/Vol]32.3 g/dL29.9 - 35.2 g/dLLee's Summit HospitalV (RBC) [Entitic vol]85.6 fL81.0 - 99.0 fLJefferson Memorial HospitalMONOCYTES ABSOLUTE AUTO1.2High [facility] HealthcareMonocytes/100 WBC (Bld)11 %1.7 - 12.0 %[facility] Memorial HospitalNEUTROPHILS ABSOLUTE AUTO5.1NOMS HealthcareNeutrophils/100 WBC (Bld)47.9 %43.0 - 75.0 %[facility]erson Memorial HospitalPlatelet mean volume (Bld) [Entitic vol]10.4 fL9.5 - 13.5 fLJefferson Memorial HospitalTBH EO #0.5NOMS [facility] Hospital - DublinTB MHX650JMFFFreeman Orthopaedics & Sports Medicine RBC4.85NOFreeman Orthopaedics & Sports Medicine WBC10.6NOCapital Region Medical CenterCLINISYNCNOMS [facility] Hospital - DublinEmployee Health Note on 35-35-6504Uagfdrxq Health Note [id number]#1.00OT[facility] Employee Health Noteon 29-04-9690Dfpzcnpm Health Note [id number]#1.00OT[facility] Employee Health [id number]#1.00OTGTSt. Mary's Medical Center Health Noteon 08-48-1955Iadxvkif Health Note [id number]#1.00OTGTUniversity Hospitals Health SystemOVkimmie 58-95-2356TOPRSlhqai Visit (NHDBEC) JACQUELYN ZENG ([id number]) 1975 F Date Time Provider Department 12/04/24 9:00 AM KINGA MENDES [facility] During your visit today, we recorded the following information about you: Temperature Pulse Respiration Blood pressure 97.5 degrees 98/minute 21/minute 116/71 Kinga Mendes, FORM GRADER.NURSING EDUCATOR 12/04/2024 9:16 AM Signed Headache Center Follow-up [...] for migraine Informed Consent Consent Obtained: Written Steward Protocol A moment to CARE was completed [...] collected. Written Consent Obtained: Written LOT #: [id number] Expiration Date: Month: 10 Year: 2026 Injection Sites Left (Units) Left (Sites) Right (Units) Right (Sites) TOTAL (Units) [place] 5 1 5 1 10 Procerus Units: [...] Total Units wasted: 0 (more content not included)...NormalThe Surgical Hospital At SouthwoodsRefmusc health [facility] [id number] Jacquelyn Zeng 1975 F Date Provider Department Center 12/04/2024 JOSE FRANCISCO PHAM [email or web address]] Family History Problem Relation Age of Onset Coronary artery disease Mother Heart attack Mother Cancer Mother Heart attack Father 54 Family Status - Relation Status Age at Mother Father Reason for Visit and Comments: Med Refill [[id number]][facility] DaytonCoding Summaryon 40-58-2454Kuzvtn SummaryHTMLBase 64 KylzmdzhQVg7sUs+PGhlYWQ+PQ5KHNZiS44tuSAljG6lT8XCMLeOHyuzIDBHPXcFNbYybrAeBR4haBYb ZXJu [file] IGN (more content not included)...[facility] HospitalEmplocarnegie [facility] [place] [place] Health Noteon 57-51-4528Cxzamhup Health Note [id number]#1.00[facility] Employee Health Noteon 92-95-7901Qxegpttp Health Note [id number]#1.00[facility] HealthFLUORO FOR SURGICAL PROCEDURESon 07-09-9655Uildbiuqn exam is complete. No Radiologist dictation. Please follow up with ordering provider. Final resultDeny Treviño MD - 10/08/2024 Radiology exam is complete. No Radiologist dictation. Please follow up with ordering provider. Final result NOMS HealthcareFLUORO FOR SURGICAL PROCEDURESRadiology exam is complete. No Radiologist dictation. Please follow up with ordering provider. Final resultSCL Health Community Hospital - SouthwestRadiology Study observation (narrative)NOMS HealthcareFLUORO FOR SURGICAL PROCEDURESOrdered By: Radiologist Radiology on 55-51-9962JSPF [employer] Work Phone: Guidance-- during surgeryon 53-19-4201Cuispsiro exam is complete. No Radiologist dictation. Please follow up with ordering provider. ISABELSYLVIA CHRISTINE [facility] Noteon 51-58-3350Rfhutvoz Health Note [id number]#1.00OTSt. [facility] Hospital Health [id number]#1.00OTBarney Children's Medical Center36on 57-80-779273Pex event monitor showed episodes of atrial flutter. Please have her stop aspirin, continue clopidogrel, start Eliquis 5 mg twice daily. Please have her see Farzad Dumont to review options for management.Normal [facility] SystemTelephoneon [id number] Jacquelyn Zeng 1975 F Date Provider Department Center 09/28/2024 JULIANA CAAL [facility] CAreevMemorial [facility] System Family History Problem Relation Age of Onset Coronary artery disease Mother Heart attack Mother Cancer Mother Heart attack Father 54 Family Status - Relation Status Age at Mother Father DeceasedNormalUniversOhioHealth Pickerington [facility] Noteon 50-00-3503Ytkcbbya Health Note [id number]#1.00OTSt. Vincent Hospital Health Noteon 19-00-4682Yffbgfgw Health Note [id number]#1.00OT[facility] Follow-Upon 00-34-2460Kqjvxk-[id number] Jacquelyn Zeng 1975 F Date Provider Department Center 09/22/2024 JOSE FRANCISCO PHAM [email or web address] END[email or web address]] Family History Problem Relation Age of Onset Coronary artery disease Mother Heart attack Mother Cancer Mother Heart attack Father 54 Family Status - Relation Status Age at Mother Father Level of Service:63647 UT OFFICE/OUTPATIENT ESTABLISHED LOW MDM 20 [facility] HospitalEmpamg [facility] Health Noteon 40-66-3484Hnkkmbfn Health [id number]#1.00OTMetroHealth Parma Medical CenterNo Panel InformationOrdered By: Radiologist Radiology on 40-77-1786[facility] Work Phone: No Panel Informationon 94-64-9577Eqymtazkz Study observation (narrative)NOMS HealthcareXR CERVICAL SPINE (4-5 VIEWS)on 09-16-2024 EXAMINATION: 5 XRAY VIEWS OF THE [...] Signed by: Kirby White MD 09/22/24 Final resultMLRRadiology, Radiologist, - 09/22/2024 EXAMINATION: 5 XRAY VIEWS OF [...] by: Kirby White MD 09/22/24 Final result [facility] CERVICAL SPINE (4-5 VIEWS)EXAMINATION: 5 XRAY VIEWS OF THE CERVICAL SPINE [...] Signed by: Kirby White MD 09/22/24 Final resultSCL Health Community Hospital - SouthwestXR LUMBAR SPINE (MIN 4 VIEWS)on 02-96-7162PEYIHGXCAWO: 5 XRAY VIEWS OF THE LUMBAR SPINE [...] Signed by: Kirby White MD 09/22/24 Final resultMLRRadiology, Radiologist, - 09/22/2024 EXAMINATION: 5 XRAY VIEWS OF [...] by: Kirby White MD 09/22/24 Final result [facility]XR LUMBAR SPINE (MIN 4 VIEWS)EXAMINATION: 5 XRAY VIEWS OF THE LUMBAR SPINE [...] Signed by: Kirby White MD 09/22/24 Final resultNoPioneers Medical CenterXR SHOULDER LEFT (MIN 2 VIEWS)on 20-35-6193YUIFYWXHZET: XR left shoulder three views 09/16/2024 5:03 [...] Signed by: Del Melton MD 09/22/24 Final resultMLRRadiology, Radiologist, MD - 09/22/2024 EXAMINATION: XR left shoulder three [...] by: Del Melton MD 09/22/24 Final result [facility] HealthcareXR SHOULDER LEFT (MIN 2 VIEWS)EXAMINATION: XR left shoulder three views 09/16/2024 5:03 [...] Signed by: Del Melton MD 09/22/24 Final resultSCL Health Community Hospital - SouthwestRadiology Study observation (narrative)[facility] HealthcareXR SHOULDER LEFT (MIN 2 VIEWS)Ordered By: Radiologist Radiology on 20-29-1396BEQQJefferson Memorial Hospital Work Phone: [facility] Noteon 47-16-6438Cyupxwcr Health Note [id number]#1.00OTGTTriHealth Bethesda North HospitalCNOV on 13-24-8273EZRCCzctxs Visit (FLDBEC) JACQUELYN ZENG ([id number]) 1975 F Date Time Provider Department 09/11/24 11:30 AM KINGA MENDES [facility] During your visit today, we recorded the following information about you: Pulse Blood pressure 100/minute 121/68 Kinga Mendes APRN.NURSING EDUCATOR 09/11/2024 12:02 PM Signed [facility] Follow-[facility] [...] for migraine Informed Consent Consent Obtained: Written Steward Protocol A moment to CARE was completed [...] collected. Written Consent Obtained: Written LOT #: [id number] Expiration Date: Month: 4 Year: 2026 Injection Sites Left (Units) Left (Sites) Right (Units) Right (Sites) TOTAL (Units) [place] 5 1 5 1 10 Procerus Units: [...] effect Other Therapies Chiropractic Physical therapy Analgesic Butalbital/acetaminophe (more content not included)...NormalWayne HealthCare Main [facility] Summaryon 39-64-6307Sqmypi SummaryHTMLBase 64 FgicuxkwDIb4oUq+PGhlYWQ+GO9MENSyT42lcZRrsW9zF1WXZFuOWkcnKEGWVDrTPiYejjJfGC6meMGq ZXJu [file] IGN (more content not included)...[facility] Noteon 57-10-1493Bjbbdqtu Health Note [id number]#1.00OT[facility] [id number]#1.00OTChildren[facility] for Rehabilitation Health Note [id number]#1.00[facility] Employee Health [id number]#1.00OTChildren's Hospital for Rehabilitation Health Noteon 05-34-8878Vwmhnlwe Health Note [id number]#1.00[facility] Employee Health [id number]#1.00[facility] [id number]#1.00[facility] Office Visiton 82-16-4787Msputt-up [id number] Jacquelyn Zeng 1975 F Date Provider Department Center 08/12/2024 JULIANA CAAL MARIA LUZ [place] Family History Problem Relation Age of Onset Coronary artery disease Mother Heart attack Mother Cancer Mother Heart attack Father 54 Family Status - Relation Status Age at Mother Father Level of Service:65320 UT OFFICE/OUTPATIENT ESTABLISHED MOD MDM 30 [facility]IG[facility]APTIMA HPV,AGE GDLNon 94-10-3218CBO GDLN ACOG TESTINGNote.NOMS HealthcareComment on above:TESTS RESULT FLAG UNITS REF RANGE LAB Clinician Provided Cytology Information Source.............Cervix;Endocervix No. of containers..01 ThinPrep Vial Age Algo ACOG Kayla... FLAG LEGEND: L-Low Normal,H-High Normal,LL-Alert Low,HH-Alert High <-Panic Low,>-Panic High,A-Abnormal,AA-Critical Abnormal Performed at: 01 =[address] [address] Elsy Johnson MD, HPV APTIMANegativeNegativeNOMS HealthcareComment on above:This nucleic acid amplification test detects fourteen high- risk HPV types (16,18,31,33,35,39,45,51,52,56,58,59,66,68) without differentiation. Performed at: =[address] [id number] Employee Communications Manager: Elsy Johnson MD, Phone: [phone] Performed at: [address] [id number] Employee Communications Manager: Elsy Johnson MD, Phone: [phone] IGP, APTIMA HPV, RFX 16/18,45Note.NOMS HealthcareComment on above:TESTS RESULT FLAG UNITS REF RANGE LAB DIAGNOSIS: 02 NEGATIVE FOR INTRAEPITHELIAL LESION OR MALIGNANCY. CELLULAR CHANGES ASSOCIATED WITH ATROPHY ARE PRESENT. Specimen adequacy: 02 Satisfactory for evaluation. Endocervical component may not be distinguished in cases of atrophy. Performed by: 02 Chepe Perez, Environmental Services Attendant ([facility]) . 02 Note: Note 02 The Pap smear is a screening test designed to aid in the detection of premalignant and malignant conditions of the uterine cervix. It is not a diagnostic procedure and should not be used as the sole means of detecting cervical cancer. Both false-positive and false-negative reports do occur. Test Methodology: Note 02 The Shoot it!(R) Economic Geographer was unable to read this specimen. Therefore a manual review was performed. FLAG LEGEND: L-Low Normal,H-High Normal,LL-Alert Low,HH-Alert High <-Panic Low,>-Panic High,A-Abnormal,AA-Critical Abnormal Performed at: 02 [facility] [address] [place] [address] Elsy Johnson MD, HPV Genotype Reflex Note 02 Criteria not met, HPV Genotype not performed. Criteria not met, HPV Genotype not performed. BRUSH-SPATULA CERVIX ENDOCERVIX CLINISYNCNOMS [facility] Hospital - DublinCNPNon 63-38-9526SMAQMwgbfmlvj (NHMNS2) JACQUELYN ZENG ([id number]) 1975 F Date Time Provider Department 06/29/[address] [facility] During your visit today, we recorded the following information about you: Will Medina RN 06/29/2024 8:20 AM Signed Botox referral sent to pharmacy Boris CHILDRESS, RN RN Clinical Delivery Director [facility] [place] 07/22/2024 3:16 PM Signed [facility] C9 for Botox signed and faxed to [facility] Form scanned to chart Allergies As [...] 3 ML 25 X 5/8 use with [facility] Facility-Administered Medications as of 07/22/2024 - onabotulinum toxin type A 200 Units injection (BOTOX) Problem List As Of Date 06/29/2024 Noted Resolved Migraine without aura, without mention of intra*04/24/2005 08/01/2016 CHRON OBST ASTHMA UNSPECIFIED [J44.89] 04/24/2005 Bilateral occipital neuralgia [M54.81] 11/07/2016 Status migrainosus [G43.901] 04/08/2024 Encounter Status:Closed by WILL MEDINA on 06/29/24NoEast Ohio Regional Hospitalon [id number] Jacquelyn Zeng 1975 F Date Provider Department Center 06/25/2024 492JOSE FRANCISCO CHANDLER [email or web address] END[facility] [[email or web address]] Family History Problem Relation Age of Onset Coronary artery disease Mother Heart attack Mother Cancer Mother Heart attack Father 54 Family Status - Relation Status Age at Mother Father Reason for Visit and Comments: Diabetes Mellitus [183] - CGMNormalUnKindred HealthcareFollow-Up on [id number] Jacquelyn Zeng 1975 Date Provider Department Center 06/23/2024 JOSE FRANCISCO PHAM [email or web address] ENDO[facility] [[email or web address]] Family History Problem Relation Age of Onset Coronary artery disease Mother Heart attack Mother Cancer Mother Heart attack Father 54 Family Status - Relation Status Age at Mother Father Level of Service:32842 UT OFFICE/OUTPATIENT ESTABLISHED MOD MDM 30 MIN Reason for Visit and Comments: Diabetes Mellitus [183] - DM follow upNormalUniSelect Medical [facility]Health Rehabilitation Hospital - Dublin CNOVon 24-62-5401QZAUCatvee Visit (NHMNS2) JACQUELYN ZENG ([id number]) 1975 Time Provider Department 04/14/24 1:[address] [facility] During your visit today, we recorded [...] spontaneous and fluent without dysarthria. Short and skilled nursing memory, cognition and general fund of knowledge are good. Attention span and concentration are excellent. Cranial Nerves: VII-face is symmetric without evidence of weakness. VIII-hearing intact. Assessment: (G43.901) Status migraino (more content not included)...Normal [facility] Visit (NIQ) JACQUELYN ZENG ([id number]) 1975 F Date Time Provider Department 04/14/24 [...] 3 ML 25 X 5/8 use with [facility] Facility-Administered Medications as of 04/15/2024 - onabotulinum toxin type A 200 Units injection (BOTOX) Problem List As Of Date 04/14/2024 Noted Resolved Migraine without aura, without mention of intra*04/24/2005 08/01/2016 CHRON OBST ASTHMA UNSPECIFIED [J44.89] 04/24/2005 Bilateral occipital neuralgia [M54.81] 11/07/2016 Status migrainosus [G43.901] 04/08/2024 Letter Text Encounter Status:Closed by MARILYNN LUA on 04/15/24[facility] 48-72-4130WWPPDemoei Visit (FLDBEC) JACQUELYN ZENG ([id number]) 1975 F Date Time Provider Department 04/08/24 8:30 AM KINGA MENDES [facility] During your visit today, we recorded [...] for migraine Informed Consent Consent Obtained: Written Steward Protocol A moment to CARE was completed [...] applicable Written Consent Obtained: Written LOT #: [id number] Expiration Date: Month: 2 Year: 2026 Injection Sites Left (Units) Left (Sites) Right (Units) Right (Sites) TOTAL (Unit (more content not included)...NormalUniversity Hospitals Geauga Medical Centern [id number] Jacquelyn Zeng 1975 F Date Provider Department Center 04/07/2024 JOSE FRANCISCO PHAM [email or web address] ENDO[facility] [[email or web address]] Family History Problem Relation Age of Onset Coronary artery disease Mother Heart attack Mother Cancer Mother Heart attack Father 54 Family Status - Relation Status Age at Mother Father Reason for Visit and Comments: Med Change Request [411]NormalUnKindred HealthcareFollow-Upon [id number] Jacquelyn Zeng 1975 F Date Provider Department Center 04/06/2024 JOSE FRANCISCO PHAM [email or web address] ENDOCR [email or web address]] Family History Problem Relation Age of Onset Coronary artery disease Mother Heart attack Mother Cancer Mother Heart attack Father 54 Family Status - Relation Status Age at Mother Father Level of Service:72329 UT OFFICE/OUTPATIENT ESTABLISHED LOW MDM 20 MIN Reason for Visit and Comments: Diabetes Mellitus [183] - DM follow upNormalUniversSamaritan Hospital 34-88-9128JBGIZerefdxji (NIQ) JACQUELYN ZENG ([id number]) 1975 F Date Time Provider Department 03/30/24 [...] been this way for years. Kinga Mendes APRN.[facility] 04/06/2024 1:41 PM Signed I do not have anything else available. She is scheduled with the very capable colleague of [facility] on 04/15. Kinga Mendes APRN.NURSING EDUCATOR April 06, 2024 1:41 PM Opal Camejo 04/06/2024 2:32 PM Signed Called patient and left for appointment on 04/08/24 at 8:30AM with Kinga at [place]. Slot is currently on hold for patient [...] Date Reviewed: 05/17/2023 Reviewed by: Kinga Mendes APRN.NURSING EDUCATOR - Fully Assessed Reason for Visit: Botox [...] soln INJECT 1mL TWICE DAILY NEEDED - cazkvh-drmhiemn-thhlptr (ZENPEP) 40,000-126,000- 168,000 unit delayed release capsule [...] 3 ML 25 X 5/8 use with [facility] Facility-Administered Medications as of 04/08/2024 - onabotulinum toxin type A 200 Units injection (BOTOX) Problem (more content not included)...NormalK[facility] Health [facility] LIPID PROFILE (FASTING)on 40-53-7989LLPX HDL RATIO6.6NONH HealthcareComment on above: 3.3 - 4.4 LOW RISK 4.4 - 7.1 AVERAGE RISK 7.1 - 11.0 MODERATE RISK >11.0 HIGH RISK Cholesterol [Mass/Vol]184 mg/dLNINF - 200 mg/dLNOCapital Region Medical CenterCholesterol in HDL [Mass/Vol]28 mg/dLLow40 - 60 mg/dLBRIGHAM CITY COMMUNITY HOSPITAL HealthcareComment on above:> or =60 mg/dl - LOW CARDIOVASCULAR RISK <40 mg/dl - HIGH CARDIOVASCULAR RISK Interpretation and review of laboratory resultsAbnormalNONH HealthcareMagnesium [Mass/Vol]207.2 mg/dLNOCapital Region Medical CenterTriglyceride [Mass/Vol]1036 mg/dLHighNINF - 150 mg/dLJefferson Memorial HospitalNo Panel Informationon 29-17-8710WDOQUPRJALZMT HealthcareTBH DIRECT LDLon 24-90-9236Ffyrffoei [Mass/Vol]47 mg/dLJefferson Memorial Hospital Comment on above:<100 mg/dl OPTIMAL 100-129 mg/dl NEAR OR ABOVE OPTIMAL 130-159 mg/dl BORDERLINE HIGH 160-189 mg/dl HIGH >190 mg/dl VERY HIGH ALL CBC WITH AUTO DIFFon 77-35-9540WOPKDYQQU ABSOLUTE AUTO0.1[facility] Basophils/100 WBC (Bld)1.1 %0.2 - 2.0 %NOMS HealthcareEosinophils/100 WBC (Bld) 3.0 %0.9 - 7.0 %[facility] Memorial HospitalErythrocyte distribution width (RBC) [Ratio]14.4 %11.0 - 15.0 %NOMS HealthcareHematocrit (Bld) [Volume fraction]44.3 %36.0 - 48.0 %NOM HealthcareHemoglobin (Bld) [Mass/Vol]14.0 g/dL12.0 - 16.0 g/dLNONH HealthcareIMMATURE GRANULOCYTES ABS AUTO0.02NONH HealthcareImmature granulocytes/100 WBC (Bld)0.3 %0.0 - 0.5 %[facility] HealthcareLYMPHOCYTES ABSOLUTE AUTO3.8NOMS HealthcareLymphocytes/100 WBC (Bld)47.7 %20.5 - 60.0 %[facility] HospitalH (RBC) [Entitic mass]29.5 pg26.7 - 34.0 pgNOFulton Medical Center- FultonHC (RBC) [Mass/Vol]31.6 g/dL29.9 - 35.2 g/dLNOCapital Region Medical CenterMCV (RBC) [Entitic vol]93.5 fL 81.0 - 99.0 fLJefferson Memorial HospitalMONOCYTES ABSOLUTE AUTO0.9HighJefferson Memorial Hospital Monocytes/100 WBC (Bld)11.1 %1.7 - 12.0 %[facility] HealthcareNEUTROPHILS ABSOLUTE AUTO2.9NONH HealthcareNeutrophils/100 WBC (Bld)36.8 %Low43.0 - 75.0 %[facility] HealthcarePlatelet mean volume (Bld) [Entitic vol]10.6 fL9.5 - 13.5 fLNOCapital Region Medical CenterTBH EO #0.2NOMS HealthcareTB HVS796BBVKCapital Region Medical CenterTB RBC4.74NOMS [facility] Hospital - DublinTB WBC8.0NONH HealthcareMLR HEMOGLOBIN A1Con 25-15-8981Vtcqysr [Mass/Vol]160 mg/dLJefferson Memorial HospitalHbA1c (Bld) [Mass fraction]7.2 %High4.5 - 6.2 %[facility] HealthcareComment on above:ADA RECOMMENDED LIMIT 4.0 - 6.0 ADA THERAPEUTIC TARGET < 7.0 ACTION SUGGESTED > 7.0 No Panel Informationon 88-36-2256Cwhbizgqkiybgn and review of laboratory results AbnormalNONH HealthcareCLINISYNCNOMS HealthcareTB MICROALBUMIN, RAND URon 13-75-3134OCKJJQUWKXIF URINE RANDOM<1.3NINF - 30.0 mg/dLBRIGHAM CITY COMMUNITY HOSPITAL HealthcareGlucose Glucometer (BldC) [Mass/Vol]Ordered By: Lee Chowdary on 93-30-6622Sxrnzjz [Mass/Vol]138 mg/dLCleveland Clinic Medina HospitalComment on above:Random Glucose Reference Range is dependent on time and content of last meal. Glucose of more than 200 mg/dL in a nonstressed, ambulatory subject supports the diagnosis of Diabetes Mellitus.HCG ( test) IA.rapid Ql (U)Ordered By: Avinash Mays on 58-58-6489CWW ( test) Ql (U)NegativeCleveland Clinic Medina HospitalMG MAMM DIAGNOSTIC 3D YOUNG CADon 61-92-1330XH MAMM DIAGNOSTIC 3D YOUNG CADPatient: KARRI JACQUELYN Alvino Exam Date: 08/28/2022 : 1975 Gender:F Ordering : MARGARETTE HUITRON . Admission #: [id number] Family : Order #: [id number] CLICK HERE TO VIEW EXAM RADIOLOGY REPORT [...] colon cancer at age 53. LOCATION: [facility] BREAST COMPOSITION: Scattered areas fibroglandular density. [...] by: Bartolome Rodriguez M.D. on 08/28/2022 at 14:55[facility] Samaritan Medical CenterUS BREAST RIGHT LIMITEDon 54-04-6871YZ BREAST RIGHT LIMITEDPatient: JACQUELYN ZENG Exam Date: 08/28/2022 : 1975 Gender:F Ordering : MARGARETTE HUITRON . Admission #: [id number] Family : Order #: [id number] CLICK HERE TO VIEW EXAM RADIOLOGY REPORT [...] colon cancer at age 53. LOCATION: [facility] BREAST COMPOSITION: Scattered areas fibroglandular density. [...] by: Bartolome Rodriguez M.D. on 08/28/2022 at 14:55[facility] Samaritan Medical CenterBasophils Auto (Bld) [#/Vol]Ordered By: Lee Chowdary on 08-27-2022 Basophils (Bld) [#/Vol]0.2 10*3/uL0.0-0.2FPomerene Hospital Basophils/100 WBC Auto (Bld)Ordered By: Lee Chowdary on 44-81-0079Bpavudqeb/100 WBC (Bld)1.4 %.C[facility] Clinic Medina HospitalCalcium [Mass/volume] in Serum or PlasmaOrdered By: Lee Chowdary on 69-56-2955Nwnwurs [Mass/Vol]9.8 mg/dL 8.6-10.3FPomerene HospitalCarbon dioxide, total [Moles/volume] in Serum or PlasmaOrdered By: Lee Chowdary on 19-00-5594IL3 [Moles/Vol]28.7 mmol/L21.0-31.0C[facility] Clinic Medina HospitalChloride [Moles/volume] in Serum or PlasmaOrdered By: Lee Chowdary on 88-72-4478Kqvobpoe [Moles/Vol]99 mmol/L 98-107C[facility] Clinic Medina HospitalCreatinine [Mass/volume] in Serum or PlasmaOrdered By: Lee Chowdary on 13-24-5909Pzrkqvbmcx [Mass/Vol]0.80 mg/dL 0.60-1.20C[facility] Clinic Medina HospitalEosinophils Auto (Bld) [#/Vol]Ordered By: Lee Chowdary on 91-34-8244Kbwdnryyabd (Bld) [#/Vol]0.5 10*3/uL0.0-0.45 [facility] HospitalEosinophils/100 WBC Auto (Bld)Ordered By: Lee Chowdary on 70-59-9708Actluyvwfob/100 WBC (Bld)4.5 %.[facility] Clinic Medina HospitalErythrocyte distribution width Auto (RBC) [Ratio]Ordered By: Lee Chowdary on 18-77-0856Vncgdnbqlvu distribution width (RBC) [Ratio]13.4 % 11.9-15.3FPomerene HospitalGlucose [Mass/volume] in Serum or PlasmaOrdered By: Lee Chowdary on 34-72-8616Wrttqnh [Mass/Vol]126 mg/nC14-933 [facility] HospitalComment on above:ADA recommended reference rangeRandom Glucose Reference Range is dependent on time and content of last meal. Glucose of more than 200 mg/dL in a nonstressed, ambulatory subject supports the diagnosisof Diabetes Mellitus.Hematocrit Auto (Bld) [Volume fraction]Ordered By: Lee Chowdary on 63-38-9425Sdtgybunxd (Bld) [Volume fraction]42.2 %34.0-46.4FPomerene HospitalHemoglobin [Mass/volume] in BloodOrdered By: Lee Chowdary on 13-24-2930Hbeturnurb (Bld) [Mass/Vol]14.0 g/dL11.8-15.4FPomerene HospitalLeukocytes [#/volume] corrected for nucleated erythrocytes in Blood by Automated coun Ordered By: Lee Chowdary on 89-39-8740IAH corrected for nucl RBC Auto (Bld) [#/Vol]11.6 10*3/uL3.8-11.6FPomerene HospitalLymphocytes Auto (Bld) [#/Vol]Ordered By: Lee Chowdary on 76-48-8453Miciatylkdx (Bld) [#/Vol]5.0 10*3/uL1.00-4.8C[facility] Clinic Medina HospitalLymphocytes/100 WBC Auto (Bld) Ordered By: Lee Chowdary on 60-20-1759Rclebllhzlz/100 WBC (Bld)42.7 %.[facility] Auto (RBC) [Entitic mass]Ordered By: Lee Chowdary on 14-70-0994PBW (RBC) [Entitic mass]30.3 pg24.7-34.3FPomerene HospitalMCHC Auto (RBC) [Mass/Vol]Ordered By: Lee Chowdary on 10-78-8060VBWO (RBC) [Mass/Vol]33.3 g/dL32.0-35.0C[facility] Clinic Medina HospitalMCV Auto (RBC) [Entitic vol]Ordered By: Lee Chowdary on 06-52-0738MOS (RBC) [Entitic vol]91.0 xC19-689FgzkhbxdvCleveland Clinic Medina HospitalMonocytes Auto (Bld) [#/Vol] Ordered By: Lee Chowdary on 06-75-9913Oabrdbkrj (Bld) [#/Vol]1.2 10*3/uL0.0-0.8 [facility] HospitalMonocytes/100 WBC Auto (Bld)Ordered By: Lee Chowdary on 40-65-4866Abtsptvox/100 WBC (Bld)10.0 %.[facility] Medina HospitalNeutrophils Auto (Bld) [#/Vol]Ordered By: Lee Chowdary on 08-27-2022 Neutrophils (Bld) [#/Vol]4.8 10*3/uL1.8-7.7FPomerene Hospital Neutrophils/100 WBC Auto (Bld)Ordered By: Lee Chowdary on 08-27-2022 Neutrophils/100 WBC (Bld)41.4 %.[facility] Med[facility] HospitalNo Panel InformationOrdered By: Lee Chowdary on 55-06-6592Iagcdstfk GFR (CKD-EPI)> 60.0 mL/MinCleveland Clinic Medina HospitalPharmacy Creatinine Clearance (ChemN/A [facility] Med[facility] HospitalNucleated erythrocytes [Presence] in Blood by Automated countOrdered By: Lee Chowdary on 96-87-4302Qvfwzfqjq RBC Auto Ql (Bld)0.1 /100{WBC}0-0.5FPomerene HospitalPlatelet mean volume Auto (Bld) [Entitic vol]Ordered By: Lee Chowdary on 44-61-7102Siwbawkh mean volume (Bld) [Entitic vol]8.6 fL6.3-10.7FPomerene Hospital Platelets Auto (Bld) [#/Vol]Ordered By: Lee Chowdary on 38-67-5750Ejazmmhqr (Bld) [#/Vol]355 10*3/uO573-732RgtssdpuyCleveland Clinic Medina HospitalPotassium [Moles/volume] in Serum or PlasmaOrdered By: Lee Chowdary on 08-27-2022 Potassium [Moles/Vol]4.1 mmol/L3.5-5.1FPomerene HospitalRBC Auto (Bld) [#/Vol]Ordered By: Lee Chowdary on 11-34-7248DZL (Bld) [#/Vol]4.64 10*6/uL3.60-5.00[facility]als Health Systemerum or plasma anion gap determinationOrdered By: Lee Chowdary on 68-59-8545Mdwat gap [Moles/Vol]13.4 mmol/L6.0-15.0[facility] Health Systemodium [Moles/volume] in Serum or PlasmaOrdered By: Lee Chowdary on 56-12-3207Iepmqk [Moles/Vol]137 mmol/L 136-145C[facility] Medina HospitalUrea nitrogen [Mass/volume] in Serum or PlasmaOrdered By: Lee Chowdary on 02-20-0460Zoes nitrogen [Mass/Vol]18 mg/dL 7-25C[facility] Med[facility] HospitalWBC Auto (Bld) [#/Vol]Ordered By: Lee Chowdary on 57-72-7231EZV (Bld) [#/Vol]11.6 10*3/uL3.8-11.6FPomerene HospitalCBC AUTO DIFFon 02-41-8725BKTB #0.2 103/ulCritically high0.0-0.1 [facility] HospitalComment on above:Performed By: #### CBC #### [facility] [address] [address] [address] Aurelio LeavittBasophils/100 WBC (Bld)1.4 %Normal0.2-2.0[facility] Comment on above:Performed By: #### CBC #### [facility] [address] [address] [address] Aurelio Ojeda #0.7 103/ulNormal0.0-0.7The [facility] HospitalComment on above: Performed By: #### CBC #### [facility] [address] [address] [address] Aurelio Chaneyosinophils/100 WBC (Bld)4.5 %Normal0.9-7.0[facility] Comment on above:Performed By: #### CBC #### [facility] [address] [place] [address] Dr. Aurelio Chaneyrythrocyte distribution width (RBC) [Ratio]13.3 %Viebmn01.0-15.0 [facility] HospitalComment on above:Performed By: #### CBC #### [facility] [address] [place] [address] Dr. Aurelio LeavittHematocrit (Bld) [Volume fraction]48.8 %Critically high36.0-48.0 [facility] HospitalComment on above:Performed By: #### CBC #### [facility] [address] [place] [address] Dr. Aurelio LeavittHemoglobin (Bld) [Mass/Vol]16.7 g/dLCritically high12.0-16.0[facility] HospitalComment on above:Performed By: #### CBC #### [facility] [address] [place] [address] Dr. Aurelio Cruz #0.06 10e3/ulCritically high0.00-0.03[facility] Comment on above:Performed By: #### CBC #### [facility] [address] [place] [address] Dr. Aurelio Cruz %0.4 %Normal0.0-0.5ThBarnesville Hospitalment on above: Performed By: #### CBC #### [facility] [address] [place] [address] Dr. Aurelio Dumont #6.2 103/ulCritically high1.2-3.8[facility] Comment on above:Performed By: #### CBC #### [facility] [address] [place] [address] Dr. Aurelio Romanohocytes/100 WBC (Bld)42.2 %Hdmrny51.5-60.0[facility] HospitalComment on above:Performed By: #### CBC #### [facility] [address] [place] [address] Dr. Aurelio GravesUAL DIFF REQNONormalThe [facility] Cross HospitalComment on above: Performed By: #### CBC #### [facility] [address] [place] [address] Dr. Aurelio Hampton (RBC) [Entitic mass]30.4 hoAbiins86.7-34.0[facility] HospitalComment on above:Performed By: #### CBC #### [facility] [address] [place] [address] Dr. Aurelio Hampton (RBC) [Mass/Vol]34.2 g/hLWgnaca79.9-35.2The [facility] HospitalComment on above:Performed By: #### CBC #### [facility] [address] [place] [address] Dr. Aurelio Hampton (RBC) [Entitic vol]88.9 hOTzvpax83.0-99.0The Green Cross HospitalComment on above:Performed By: #### CBC #### [facility] [address] [place] [address] Dr. Aurelio Abdi #1.1 103/ulCritically high0.3-0.8[facility] Comment on above:Performed By: #### CBC #### [facility] [address] [place] [address] Dr. Aurelio Juniorocytes/100 WBC (Bld)7.2 %Normal1.7-12.0[facility] Comment on above:Performed By: #### CBC #### [facility] [address] [place] [address] Dr. Aurelio Scruggs #6.5 103/ulNormal1.4-6.5The [facility] Cross HospitalComment on above:Performed By: #### CBC #### [facility] [address] [place] [address] Dr. Aurelio Friedmanutrophils/100 WBC (Bld)44.3 %Ovlltx22.0-75.0The [facility] HospitalComment on above:Performed By: #### CBC #### [facility] [address] [place] [address] Dr. Aurelio Johnsonlet mean volume (Bld) [Entitic vol]11.5 fLNormal9.5-13.5The [facility] HospitalComment on above:Performed By: #### CBC #### [facility] [address] [address] [address] Aurelio LeavittPLT350 103/rzUercqc431-170Jgw [facility] Hospitalment on above: Performed By: #### CBC #### [facility] [address] [address] [address] Aurelio LeavittRBC5.49 106/ulCritically high4.20-5.40[facility] Comment on above:Performed By: #### CBC #### [facility] [address] [place] [address] Dr. Aurelio LeavittWBC14.6 103/ulCritically high4.0-11.0[facility] Hospitalment on above:Performed By: #### CBC #### [facility] [address] [place] [address] Dr. Aurelio LeavittDIRECT LDLon 35-71-6591Cgqetsmsoda in LDL [Mass/Vol]102 mg/dL NormalCity Hospital on above:Performed By: #### CMREP #### [facility] [address] [place] [address] Dr. Aurelio LeavittDLDL NORMALSEE BELOWUniversity Hospitals Samaritan Medical CenterComdeckerville community hospital on above: Result Comment: <100 mg/dl OPTIMAL 100 - 129 mg/dl NEAR OR ABOVE OPTIMAL 130 - 159 mg/dl BORDERLINE HIGH 160 - 189 mg/dl HIGH >190 mg/dl VERY HIGHPerformed By: #### CMREP #### [facility] [address] [place] [address] Dr. Aurelio LeavittGLYCOHEMOGLOBIN A1Con 34-67-4441KIU RECOMMENDATIONSEE [facility] HospitalComdeckerville [facility] on above:Result Comment: ADA RECOMMENDED LIMIT 4.0 - 6.0 ADA THERAPEUTIC TARGET < 7.0 ACTION SUGGESTED > 7.0Performed By: #### ACETON #### [facility] [address] [place] [address] Dr. Aurelio LeavittGlucose [Mass/Vol]266 mg/dLUniversity Hospitals Samaritan Medical CenterComment on above:Performed By: #### ACETON #### [facility] [address] [place] [address] Dr. Aurelio LeavittHbA1c (Bld) [Mass fraction]10.9 %Critically high4.5-6.2[facility] on above:Performed By: #### ACETON #### [facility] [address] [place] [address] Dr. Aurelio LeavittLIPID PROFILEon [id number]-HDL RATIO NORMSMercy Health Kings Mills HospitalComment on above:Result Comment: 3.3 - 4.4 LOW RISK 4.4 - 7.1 AVERAGE RISK 7.1 - 11.0 MODERATE RISK >11.0 HIGH RISKPerformed By: #### CMREP #### [facility] [address] [place] [address] Dr. Aurelio LeavittCholesterol [Mass/Vol]257 mg/dLCritically high<=200The [facility] HospitalComdeckerville community hospital on above:Performed By: #### CMREP #### [facility] [address] [place] [address] Dr. Aurelio LeavittCholesterol in HDL [Mass/Vol]34 mg/dLCritically qly37-66Yhg [facility] on above:Performed By: #### CMREP #### [facility] [address] [place] [address] Dr. Aurelio LeavittCholesterol.total/Cholesterol in HDL [Mass ratio]7.6 {ratio} NormalThe [facility] on above:Performed By: #### CMREP #### [facility] [address] [place] [address] Dr. Aurelio LeavittHDL NORMAL> or = 60 mg/dl - LOW CARDIOVASCULAR RISK <40 mg/dl - HIGH CARDIOVASCULAR RISKGrant Hospital on above:Performed By: #### CMREP #### [facility] [address] [place] [address] Dr. Aurelio LeavittLDL CALC NORMALSEE [facility]Com[facility] on above:Result Comment: <100 mg/dl OPTIMAL 100 - 129 mg/dl NEAR OR ABOVE OPTIMAL 130 - 159 mg/dl BORDERLINE HIGH 160 - 189 mg/dl HIGH >190 mg/dl VERY HIGH Performed By: #### CMREP #### [facility] [address] [place] [address] Dr. Aurelio LeavittTriglyceride [Mass/Vol]934 mg/dLCritically high<=150The [facility] HospitalComment on above:Performed By: #### CMREP #### [facility] [address] [place] [address] Dr. Aurelio LeavittVLDL LVLM069.8 mg/dLNormalThe [facility] Cross HospitalComment on above: Performed By: #### CMREP #### [facility] [address] [place] [address] Dr. Aurelio Honeycutt PROFILEon 26-36-4585Pgnikig [Mass/Vol]4.2 g/dLNormal3.4-5.0 The [facility] HospitalComment on above:Performed By: #### CMREP #### [facility] [address] [place] [address] Dr. Aurelio LeavittAlbumin/Globulin [Mass ratio]1.2 {ratio}NormalThe [facility] HospitalComdeckerville community hospital on above:Performed By: #### CMREP #### [facility] [address] [place] [address] Dr. Aurelio AyalaP [Catalytic activity/Vol]127 U/LCritically txov17-261Wgj [facility] HospitalComdeckerville community hospital on above:Performed By: #### CMREP #### [facility] [address] [place] [address] Dr. Aurelio Godoy [Catalytic activity/Vol]33 U/HLhioje97-19Pwn [facility] HospitalComdeck[facility] on above:Performed By: #### CMREP #### [facility] [address] [place] [address] Dr. Aurelio LeavittAST [Catalytic activity/Vol]14 U/LCritically asy10-41Pjk [facility] HospitalComdeckerville [facility] hospital on above:Performed By: #### CMREP #### [facility] [address] [place] [address] Dr. Aurelio PozoI, CONJUGATED0.1 mg/dLNormal0.0-0.2[facility] Comment on above:Performed By: #### CMREP #### [facility] [address] [place] [address] Dr. Aurelio LeavittBilirubin [Mass/Vol]0.2 mg/dLNormal0.2-1.0[facility] Comment on above:Performed By: #### CMREP #### [facility] [address] [place] [address] Dr. Aurelio LeavittGlobulin (S) [Mass/Vol]3.5 g/dLNormalThe [facility] HospitalComment on above:Performed By: #### CMREP #### [facility] [address] [place] [address] Dr. Aurelio LeavittProtein [Mass/Vol]7.7 g/dLNormal6.4-8.2[facility] Comment on above:Performed By: #### CMREP #### [facility] [address] [place] [address] Dr. Aurelio LeavittPROF CHEM 8 (BAS METB)on 57-64-3271Nudlu gap [Moles/Vol]10.4 mmol/LNormalLima City HospitalComment on above:Performed By: #### CMREP #### [facility] [address] [place] [address] Dr. Aurelio LeavittCalcium [Mass/Vol]9.5 mg/dLNormal8.5-10.1[facility] Comment on above:Performed By: #### CMREP #### [facility] [address] [place] [address] Dr. Aurelio LeavittChloride [Moles/Vol]97 mmol/LCritically uuh91-596Ndv [facility] HospitalComment on above:Performed By: #### CMREP #### [facility] [address] [place] [address] Dr. Aurelio LeavittCO2 [Moles/Vol]30.3 mmol/JHdigvv63.0-32.0[facility] Comment on above:Performed By: #### CMREP #### [facility] [address] [address] [address] Aurelio LeavittCreatinine [Mass/Vol]0.62 mg/dLNormal0.55-1.02The [facility] HospitalComment on above:Performed By: #### CMREP #### [facility] [address] [address] [address] Carey ChangEGFR-AF SLUQFNDV68 mL/min/1.27g1Helqqh>=60[facility] Comment on above:Performed By: #### CMREP #### [facility] [address] [address] [address] Carey ChangEGFR-NON AF WRMVEIJQ09 mL/min/1.61h1Pwxbks>=60The [facility] HospitalComment on above:Performed By: #### CMREP #### [facility] [address] [address] [address] Aurelio LeavittGlucose [Mass/Vol]252 mg/dLCritically mhna20-093Akf [facility] HospitalComment on above:Performed By: #### CMREP #### [facility] [address] [address] [address] Aurelio LeavittPotassium [Moles/Vol]3.7 mmol/LNormal3.5-5.1[facility] Comment on above:Performed By: #### CMREP #### [facility] [address] [address] [address] Aurelio LeavittSodium [Moles/Vol]134 mmol/LCritically ikv338-110Cwp [facility] Hospitalment on above:Performed By: #### CMREP #### [facility] [address] [address] [address] Aurelio LeavittUrea nitrogen [Mass/Vol]13.0 mg/dLNormal7.0-18.0The [facility] on above:Performed By: #### CMREP #### [facility] [address] [address] [address] Aurelio LeavittUrea nitrogen/Creatinine [Mass ratio]21.0 mg/mgNormalThe [facility] HospitalComment on above:Performed By: #### CMREP #### [facility] [address] [place] [address] [address] [address] Aurelio Dominguez 04-91-9672IFT5.102 uIU/mLNormal0.358-3.740The [facility] HospitalComdeckerville community hospital on above:Performed By: #### CMREP #### [facility] [id number] Aurelio Rowan CHESTon [id number] CHESTEXAM: US CHEST HISTORY: Mass of trunk COMPARISON: [...] Electronically authenticated by: AVINASH SERRATO Date: 2022-07-10 16:41[facility] CenterNM STRESS/REST MULTIon [id number] STRESS/REST MULTIPatient: JACQUELYN ZENG Exam Date: 06/26/2022 : 1975 Gender:F Ordering : DR JOSH OCHOA . Admission #: [id number] Family : Order #: [id number] CLICK HERE TO VIEW EXAM RADIOLOGY REPORT [...] OF STUDY: Good. PERFUSION DEFECT: LOCATION: Mid-anterior. [place]. SIZE: Small (1-2 segments). SEVERITY: Mild. TYPE: [...] by: Avinash Serrato MD on 06/27/2022 at 06:05[facility] CenterXR TSPINE 3 VIEWSon [id number] TSPINE 3 VIEWSEXAMINATION: XR TSPINE 3 VIEWS HISTORY: Pain in thoracic spine COMPARISON: No relevant comparison available. FINDINGS: BONES: No significant spondylosis, scoliosis, fracture, or visible bony lesion. DISC SPACES: No significant disc height narrowing, subluxation, or endplate abnormality. PARASPINOUS: Negative. No paraspinous abnormality is seen. OTHER: Negative. IMPRESSION: 1. No acute bone abnormality. 2. Minimal degenerative disc disease. Electronically authenticated by: BARTOLOME RODRIGUEZ Date: 2022-06-26 09:05[facility] Medical CenterALBUMINon [id number] [Mass/Vol]3.5 g/dLNormal3.4-5.0The [facility] Hospitalment on above:Performed By: #### CMREP #### [facility] [address] [address] [address] Aurelio LeavittAMYLASEon 48-31-2766Gvxvlxe [Catalytic activity/Vol]27 U/LNormal 25-115The [facility] Hospitalment on above:Performed By: #### JACQUELYN, LIPA, CMADM #### [facility] [address] [place], [place] [address] Dr. Aurelio LeavittAlbumin [Mass/volume] in Serum or PlasmaOrdered By: Marie Armstrong on 52-62-3885Upxtkjp [Mass/Vol]3.5 g/dL3.2-5.5FPomerene Hospital CARDIAC FANNY 3-6on 14-81-3747UG [Catalytic activity/Vol]107 U/OLfkrgf55-408Csn [facility] Hospitalment on above:Performed By: #### CMREP #### [facility] [address] [address] [address] Aurelio Campos.MB [Mass/Vol]1.04 ng/mLNormal<=3.60[facility] Comment on above:Performed By: #### CMREP #### [facility] [address] [address] [address] Aurelio Martin5.8 pg/mLNormal4.0-51.3TProtestant Hospital on above:Result Comment: CUT-OFF POINTS HAVE BEEN ESTABLISHED BASED ON THE FOURTH UNIVERSAL DEFINITIONS OF MYOCARDIAL INFARCTION. THE UPPER REFERENCE LIMIT (URL) OF TROPONIN, DEFINED THE 99TH PERCENTILE OF cTnI DISTRIBUTION IN A REFERENCE POPULATION, HAS BEEN CONFIRMED THE DECISION THRESHOLD FOR TN DIAGNOSIS.Performed By: #### CMREP #### [facility] [address] [place] [address] Dr. Aurelio Burleson FANNY ADMITon [id number] [Catalytic activity/Vol]96 U/L Coxfvm76-738KnrCity Hospital on above:Performed By: #### JACQUELYN, LIPA, CMADM #### [facility] [address] [place] [address] Dr. Aurelio Campos.MB [Mass/Vol]0.89 ng/mLNormal<=3.60[facility] Comment on above:Performed By: #### JACQUELYN, LIPA, CMADM #### [facility] [address] [place] [address] Dr. Aurelio Martin5.7 pg/mLNormal4.0-51.3TProtestant Hospital on above:Result Comment: CUT-OFF POINTS HAVE BEEN ESTABLISHED BASED ON THE FOURTH UNIVERSAL DEFINITIONS OF MYOCARDIAL INFARCTION. THE UPPER REFERENCE LIMIT (URL) OF TROPONIN, DEFINED THE 99TH PERCENTILE OF cTnI DISTRIBUTION IN A REFERENCE POPULATION, HAS BEEN CONFIRMED THE DECISION THRESHOLD FOR TN DIAGNOSIS.Performed By: #### JACQUELYN, LIPA, CMADM #### [facility] [address] [place] [address] Dr. Aurelio MedinaO24 ng/mLNormal9-82The [facility]az HospitalComment on above: Performed By: #### JACQUELYN, LIPA, CMADM #### [facility] [address] [address] [address] Aurelio Leo AUTO DIFFon 73-34-9013MKPN #0.1 103/ulNormal0.0-0.1The [facility] HospitalComment on above:Performed By: #### CBC #### [facility] [address] [place] [address] Dr. Aurelio LeavittBasophils/100 WBC (Bld)1.1 %Normal0.2-2.0[facility] Comment on above:Performed By: #### CBC #### [facility] [address] [place] [address] Dr. Aurelio Ojeda #0.2 103/ulNormal0.0-0.7The [facility] HospitalComment on above: Performed By: #### CBC #### [facility] [address] [place] [address] Dr. Aurelio Chaneyosinophils/100 WBC (Bld)2.9 %Normal0.9-7.0[facility] Comment on above:Performed By: #### CBC #### [facility] [address] [place] [address] Dr. Aurelio Chaneyrythrocyte distribution width (RBC) [Ratio]13.2 %Lxbcqk94.0-15.0 [facility] HospitalComment on above:Performed By: #### CBC #### [facility] [address] [place] [address] Dr. Aurelio LeavittHematocrit (Bld) [Volume fraction]45.2 %Ulnrji81.0-48.0The [facility] HospitalComment on above:Performed By: #### CBC #### [facility] [address] [place] [address] Dr. Aurelio LeavittHemoglobin (Bld) [Mass/Vol]16.3 g/dLCritically high12.0-16.0[facility] HospitalComment on above:Performed By: #### CBC #### [facility] [address] [place] [address] Dr. Aurelio Cruz #0.02 10e3/ulNormal0.00-0.03The [facility] HospitalComment on above:Performed By: #### CBC #### [facility] [address] [place] [address] Dr. Aurelio Cruz %0.3 %Normal0.0-0.5The [facility] HospitalComment on above: Performed By: #### CBC #### [facility] [address] [place] [address] Dr. Aurelio LemusBROOKLYN H[facility] #3.8 103/ulNormal1.2-3.8The [facility] HospitalComment on above:Performed By: #### CBC #### [facility] [address] [place] [address] Dr. Aurelio Romanohocytes/100 WBC (Bld)51.4 %Aozouv42.5-60.0The [facility] HospitalComment on above:Performed By: #### CBC #### [facility] [address] [place] [address] Dr. Aurelio GravesUAL DIFF REQNONormalThe [facility] HospitalComment on above: Performed By: #### CBC #### [facility] [address] [place] [address] Dr. Aurelio Hampton (RBC) [Entitic mass]32.8 fkAlxkfv00.7-34.0The [facility] HospitalComment on above:Performed By: #### CBC #### [facility] [address] [place] [address] Dr. Aurelio Hampton (RBC) [Mass/Vol]36.1 g/dLCritically high29.9-35.2The [facility] HospitalComment on above:Performed By: #### CBC #### [facility] [address] [place] [address] Dr. Aurelio Hampton (RBC) [Entitic vol]90.9 aLZxzoes61.0-99.0The [facility] HospitalComment on above:Performed By: #### CBC #### [facility] [address] [address] [address] Aurelio Abdi #0.6 103/ulNormal0.3-0.8The [facility] HospitalComment on above:Performed By: #### CBC #### [facility] [address] [place] [address] Dr. Aurelio Juniorocytes/100 WBC (Bld)8.0 %Normal1.7-12.0[facility] Comment on above:Performed By: #### CBC #### [facility] [address] [place] [address] Dr. Aurelio Scruggs #2.7 103/ulNormal1.4-6.5The [facility] HospitalComment on above:Performed By: #### CBC #### [facility] [address] [place] [address] Dr. Aurelio Friedmanutrophils/100 WBC (Bld)36.3 %Critically low43.0-75.0The [facility] HospitalComment on above:Performed By: #### CBC #### [facility] [address] [place] [address] Dr. Aurelio Johnsonlet mean volume (Bld) [Entitic vol]11.5 fLNormal9.5-13.5The [facility] HospitalComment on above:Performed By: #### CBC #### [facility] [address] [place] [address] Dr. Aurelio LeavittPLT246 103/gyUhpxoo395-914Fzp [facility] HospitalComment on above: Performed By: #### CBC #### [facility] [address] [place] [address] Dr. Aurelio LeavittRBC4.97 106/ulNormal4.20-5.40The [facility] HospitalComment on above:Performed By: #### CBC #### [facility] [address] [place] [address] Dr. Aurelio LeavittWBC7.4 103/ulNormal4.0-11.0The [facility] HospitalComment on above: Performed By: #### CBC #### [facility] [address] [place] [address] Dr. Aurelio LeavittCreatinine and Glomerular filtration rate.predicted panel (S/P/Bld)Ordered By: Marie Armstrong on 44-59-4811Bqloijxwju [Mass/Vol]0.53 mg/dL 0.44-1.03[facility] HospitalER URINE PROFILEon 36-65-6181Rocgusybh Ql (U)NegativeNormalNEGATIVELima City HospitalComment on above:Performed By: #### LACT #### [facility] [address] [place] [address] Dr. Aurelio LeavittClarity (U)CLEARNormalCLEARLima City HospitalComment on above: Performed By: #### LACT #### [facility] [address] [place] [address] Dr. Aurelio Silva (U)LT. YELLOWNormalYKettering Health SpringfieldComment on above:Performed By: #### LACT #### [facility] [address] [place] [address] Dr. Aurelio Oneill micrscopic examination will be performed if indicated. NormalLima City HospitalComment on above:Performed By: #### LACT #### [facility] [address] [place] [address] Dr. Aurelio LeavittGlucose Ql (U)>1000AbnormalNEGATIVELima City HospitalComment on above:Performed By: #### LACT #### [facility] [address] [place] [address] Dr. Aurelio LeavittHemoglobin Ql (U)TRACE-LYSEDAbnoalNEGSt. Vincent Hospital Comment on above:Performed By: #### LACT #### [facility] [address] [place] [address] Dr. Aurelio LeavittKetones Ql (U)15 mg/dlAbnormalNEGSt. Vincent Hospital Comment on above:Performed By: #### LACT #### [facility] [address] [place] [address] Dr. Aurelio LeavittLEUKOCYTESNegativeNormalNEGATIVELima City HospitalComment on above:Performed By: #### LACT #### [facility] [address] [address] [address] Aurelio Lemon Ql (U)NegativeNormalNEGATIVEThe [facility] HospitalComment on above:Performed By: #### LACT #### [facility] [address] [address] [address] Aurelio LeavittpH (U)5.5 [pH]Normal5-9The [facility] HospitalComment on above: Performed By: #### LACT #### [facility] [address] [address] [address] Aurelio LeavittSPEC GRAVITY1.917Wbqzyt8.005-<=1.025The [facility] HospitalComment on above:Performed By: #### LACT #### [facility] [address] [place] [address] Dr. Aurelio Desai PROTEINNegativeNormalNEGATIVE/ TRACEThe [facility] Comment on above:Performed By: #### LACT #### [facility] [address] [address] [address] Aurelio Matthews MICRO INDINDICATEDNormalThe [facility] HospitalComment on above: Performed By: #### LACT #### [facility] [address] [place] [address] Dr. Aurelio Riverabilinogen Qn (U)0.2 {Dalia'U}/dLNormal0.2 - 1.0The [facility] HospitalComment on above:Performed By: #### LACT #### [facility] [address] [place] [address] Dr. Carey ChangEstimated glomerular filtration rate (GFR) non- Ordered By: Marie Armstrong on 17-82-2051MAX/1.73 sq M.predicted among non-blacks MDRD (S/P/Bld) [Vol rate/Area]> 60 mL/MinCleveland Clinic Medina Hospital Globulin Calc (S) [Mass/Vol]Ordered By: Marie Armstrong on 25-10-0800Xdljeyyj (S) [Mass/Vol]2.7 g/dLCleveland Clinic Medina HospitalLACTATE/LACTIC ACIDon 91-26-7894Mqknlsk [Moles/Vol]1.0 mmol/LNormal0.4-1.9The [facility] HospitalComment on above:Performed By: #### LACT #### [facility] [address] [place] [address] Dr. Aurelio SimonsASEon 17-68-5430Uankpn [Catalytic activity/Vol]139.0 U/LNormal 73.0-393.0The [facility] HospitalComment on above:Performed By: #### JACQUELYN, LIPA, CMADM #### [facility] [address] [place] [address] Dr. Aurelio Honeycutt PROFILE SEND OUTon 76-00-7121Njlbotb, SerumLIPGNormalThe [facility] HospitalComment on above:Result Comment: Test not performed. Specimen is grossly lipemic.Performed By: #### LACT #### [facility] [address] [place] [address] Dr. Aurelio Jefferson [Catalytic activity/Vol]126 U/LCritically gopv49-203Icf [facility] HospitalComment on above:Performed By: #### LACT #### [facility] [address] [place] [address] Dr. Aurelio Godoy [Catalytic activity/Vol]66 U/LCritically high0-32The [facility] HospitalComment on above:Performed By: #### LACT #### [facility] [address] [place] [address] Dr. Aurelio Adorno [Catalytic activity/Vol]61 U/LCritically high0-40The [facility] HospitalComment on above:Performed By: #### LACT #### [facility] [address] [place] [address] Dr. Aurelio LeavittBilirubin [Mass/Vol]mg/dLNormal0.0-1.2[facility] Comment on above:Performed By: #### LACT #### [facility] [address] [place] [address] Dr. Aurelio Lancaster, DirectLIPGNormalThe [facility] HospitalComment on above: Result Comment: Test not performed. Specimen is grossly lipemic.Performed By: #### LACT #### [facility] [address] [address] [address] Aurelio LeavittProtein [Mass/Vol]6.5 g/dLNormal6.0-8.5[facility] Comment on above:Performed By: #### LACT #### [facility] [address] [address] [address] Aurelio Weaveroratory - Chemistry and Chemistry - challengeOrdered By: Marie Armstrong on 48-39-0246Wfcytd [Catalytic activity/Vol]42.0 U/B11-54PbmhizaxjCleveland Clinic Medina HospitalNo Panel InformationOrdered By: Marie Armstrong on 20-80-8062Smgcapkgy GFR ()> 60 mL/MinCleveland Clinic Medina HospitalComment on above:GFR estimated reference range: According to KDOQI guidelines, <60 ml/min/1.73m2 is sufficient todiagnose a patient with chronic kidney disease.Pharmacy Creatinine Clearance (ChemN/[facility] HospitalPROF CHEM 8 (BAS METB)on 42-34-8402Zmgqr gap [Moles/Vol]15.8 mmol/LNormal The [facility] HospitalComment on above:Performed By: #### LACT #### [facility] [address] [address] [address] Aurelio LeavittCalcium [Mass/Vol]8.8 mg/dLNormal8.5-10.1[facility] Comment on above:Performed By: #### LACT #### [facility] [address] [address] [address] Aurelio LeavittChloride [Moles/Vol]101 mmol/YEzqzdk52-924QjfLima City Hospital Comment on above:Performed By: #### LACT #### [facility] [address] [address] [address] Aurelio LeavittCO2 [Moles/Vol]21.3 mmol/HTpxgzj85.0-32.0[facility] Comment on above:Performed By: #### LACT #### [facility] [address] [address] [address] Aurelio LeavittCreatinine [Mass/Vol]0.53 mg/dLCritically low0.55-1.02The [facility] HospitalComment on above:Performed By: #### LACT #### [facility] [address] [address] [address] Aurelio ChaneyGFR-AF ALBANIAN>60Normal>=60The [facility] HospitalComment on above:Performed By: #### LACT #### [facility] [address] [address] [address] Aurelio ChaneyGFR-NON AF ALBANIAN>60Normal>=60The [facility] HospitalComment on above:Performed By: #### LACT #### [facility] [address] [address] [address] Aurelio LeavittGlucose [Mass/Vol]347 mg/dLCritically emge91-918Cbe [facility] HospitalComment on above:Performed By: #### LACT #### [facility] [address] [address] [address] Aurelio LeavittPotassium [Moles/Vol]4.1 mmol/LNormal3.5-5.1The [facility] Comment on above:Performed By: #### LACT #### [facility] [address] [address] [address] Aurelio LeavittSodium [Moles/Vol]134 mmol/LCritically ada044-152Nzc [facility] HospitalComment on above:Performed By: #### LACT #### [facility] [address] [address] [address] Aurelio LeavittUrea nitrogen [Mass/Vol]8.0 mg/dLNormal7.0-18.0The [facility] HospitalComment on above:Performed By: #### LACT #### [facility] [address] [address] [address] Aurelio LeavittUrea nitrogen/Creatinine [Mass ratio]15.1 mg/mgNormalThe [facility] HospitalComment on above:Performed By: #### LACT #### [facility] [address] [address] [address] Aurelio LeavittPROF CHEM 8 (BAS METB) SEND OUTon 52-61-3906Cbwhyne [Mass/Vol]9.3 mg/dLNormal8.7-10.2The [facility] HospitalComment on above:Performed By: #### LACT #### [facility] [address] [place] [address] Dr. Aurelio LeavittChloride [Moles/Vol]92 mmol/LCritically lnn76-502Crc [facility] HospitalComment on above:Performed By: #### LACT #### [facility] [address] [place] [address] Dr. Aurelio LeavittCO2 [Moles/Vol]27 mmol/ZTcpxna11-11Skg [facility] HospitalComment on above:Performed By: #### LACT #### [facility] [address] [place] [address] Dr. Aurelio LeavittCreatinine [Mass/Vol]1.89 mg/dLCritically high0.57-1.00The [facility] HospitalComment on above:Performed By: #### LACT #### [facility] [address] [place] [address] Dr. Aurelio LeavittGFR/1.73 sq M.predicted among non-blacks MDRD (S/P/Bld) [Vol rate/Area]33 mL/min/{1.73_m2}Critically low>59The [facility] HospitalComment on above:Performed By: #### LACT #### [facility] [address] [place] [address] Dr. Aurelio LeavittGlucose [Mass/Vol]342 mg/dLCritically qcct33-52Nxq [facility] HospitalComment on above:Performed By: #### LACT #### [facility] [address] [place] [address] Dr. Aurelio LeavittPotassium [Moles/Vol]4.2 mmol/LNormal3.5-5.2The [facility] Comment on above:Result Comment: Specimen received hemolyzed. Value may be increased by hemolysis. Clinical correlation indicated.Performed By: #### LACT #### [facility] [address] [place] [address] Dr. Aurelio LeavittSodium [Moles/Vol]129 mmol/LCritically qud708-394Tqd [facility] HospitalComment on above:Performed By: #### LACT #### [facility] [address] [place], [place] [address] Dr. Aurelio LeavittUrea nitrogen [Mass/Vol]8 mg/dLNormal6-The [facility] Comment on above:Performed By: #### LACT #### [facility] [address] [place], [place] [address] Dr. Aurelio LeavittUrea nitrogen/Creatinine [Mass ratio]4 mg/mgCritically low9-The [facility] HospitalComment on above:Performed By: #### LACT #### [facility] [address] [place], [place] [address] Dr. Aurelio LeavittProtein [Mass/volume] in Serum or PlasmaOrdered By: Marie Armstrong on 88-96-1777Dwndjls [Mass/Vol]6.2 g/dL6.1-7.9[facility] Serum or plasma alanine aminotransferase measurement without P-5'-P (enzymatic activiOrdered By: Marie Armstrong on 87-74-2190VBG No additional P-5'-P [Catalytic activity/Vol]See -21NcghetinvCleveland Clinic Medina HospitalComment on above: Specimen hemolyzed, redraw requestedSerum or plasma albumin/globulin mass ratio Ordered By: Marie Armstrong on 29-39-6928Xynlkuu/Globulin [Mass ratio]1.3 {ratio} [facility] Systemerum or plasma alkaline phosphatase measurement (enzymatic activity/volume)Ordered By: Marie Armstrong on 59-61-9093RMV [Catalytic activity/Vol]See cudkwgc94-96OuforizuwCleveland Clinic Medina HospitalComment on above:Specimen hemolyzed, redraw requestedSerum or plasma amylase measurement (enzymatic activity/volume)Ordered By: Marie Armstrong on 31-43-2079Spjuphb [Catalytic activity/Vol]29 U/E66-083XoexxgfvbUniversity Hospitals Health Systemerum or plasma anion gap determinationOrdered By: Marie Armstrong on 56-76-9933Ytzui gap [Moles/Vol]TNMount St. Mary HospitalComment on above:Test not performedSerum or plasma aspartate aminotransferase measurement (enzymatic activity/volume)Ordered By: Marie Armstrong on 60-67-2664WRO [Catalytic activity/Vol]See -73HrbqjirnoCleveland Clinic Medina HospitalComment on above: Specimen hemolyzed, redraw requestedSerum or plasma calcium measurement (mass/volume)Ordered By: Marie Armstrong on 02-32-8718Rneyaat [Mass/Vol]8.8 mg/dL 8.2-10.2FUniversity Hospitals Conneaut Medical Centererum or plasma chloride measurement (moles/volume)Ordered By: Marie Armstrong on 66-96-1040Fcklxqhh [Moles/Vol]101 mmol/T32-708HhngqihrzUniversity Hospitals Health Systemerum or plasma glucose measurement (mass/volume)Ordered By: Marie Armstrong on 14-56-3370Aocfahr [Mass/Vol]347 mg/dL 70-100[facility] HospitalComment on above:ADA recommended reference rangeRandom Glucose Reference Range is dependent on time and content of last meal. Glucose of more than 200 mg/dL in a nonstressed, ambulatory subject supports the diagnosisof Diabetes Mellitus.Serum or plasma potassium measurement (moles/volume)Ordered By: Marie Armstrong on 60-59-3338Rtojqdsre [Moles/Vol]See comment3.5-5.1FPomerene HospitalComment on above: Specimen hemolyzed, redraw requestedSerum or plasma sodium measurement (moles/volume)Ordered By: Marie Armstrong on 87-19-2505Mxeaov [Moles/Vol]134 mmol/L 136-146[facility] Hospitals Health Systemerum or plasma total bilirubin measurement (mass/volume)Ordered By: Marie Armstrnog on 04-02-9010Qwmmtpdaw [Mass/Vol]See comment0.3-1.2FPomerene HospitalComment on above: Specimen hemolyzed, redraw requestedSerum or plasma total carbon dioxide measurement (moles/volume)Ordered By: Marie Armstrong on 71-01-6959DE6 [Moles/Vol] 21.3 mmol/L22.0-30.0[facility] Hospitals Health Systemerum or plasma urea nitrogen measurement (mass/volume)Ordered By: Marie Armstrong on 36-05-5227Otka nitrogen [Mass/Vol]8 mg/dL9-23[facility] HospitalURINE MICROSCOPIC ONLYon 55-87-0458TTTWIFELXBOLBCciqyoaqURHK The Jewish HospitalComment on above:Performed By: #### LACT #### [facility] [address] [address] [address] Aurelio Guzmán identified Cx Nom (U)NOT INDICATEDNoalThAdena Health SystemComdeckerville community hospital on above:Performed By: #### LACT #### [facility] [address] [address] [address] Aurelio LeavittCASTNONE SEENNormalNONE SEENLima City HospitalComdeckerville community hospital on above:Performed By: #### LACT #### [facility] [address] [address] [address] Aurelio Ortizystals LM Nom (Urine sed)NONE SEENNormalNONE SEENLima City HospitalComdeckerville community hospital on above:Performed By: #### LACT #### [facility] [address] [place] [address] Dr. Carey ChangEcristalthelial cells LM Ql (Urine sed)FEWAbnormalNONE SEEN /RAREThe [facility] HospitalComdeckerville community hospital on above:Performed By: #### LACT #### [facility] [address] [address] [address] Aurelio SimentalUSNONE SEENNormTucson VA Medical CenterE SEENCity Hospital on above:Performed By: #### LACT #### [facility] [address] [address] [address] Aurelio LeavittQcaziASV2-3Nqzvesha5-2StxCity Hospital on above:Performed By: #### LACT #### [facility] [address] [address] [address] Aurelio LeavittWBC0-2AbnormalNONE SEENCity Hospital on above: Performed By: #### LACT #### [facility] [address] [place] [address] Dr. Aurelio Angeles lactic acid measurementOrdered By: Marie Armstrong on 38-00-3192Oqyymxo (U) [Moles/Vol]1.0 mmol/L0.5-2.2FPomerene HospitalXR ABD FLAT UP_PA Emanuel 57-44-3962FY ABD FLAT UP_PA CHEXAM: XR ABD FLAT UP_PA CH HISTORY: NAUSEA [...] Electronically authenticated by: JESSICA BOSTON Date: 2022-03-29 02:02NormalThAdena Health SystemAMYLASEon 52-89-5002Cbdcgzd [Catalytic activity/Vol]27 U/L Hzymxe99-802Fnl [facility] HospitalComment on above:Performed By: #### ACETON #### [facility] [address] [address] [address] Aurelio Leo AUTO DIFFon 95-54-1707XCZH #0.1 103/ulNormal0.0-0.1The [facility] HospitalComment on above:Performed By: #### LACT #### [facility] [address] [address] [address] Aurelio Arizmendisophils/100 WBC (Bld)0.7 %Normal0.2-2.0The [facility] Comment on above:Performed By: #### LACT #### [facility] [address] [address] [address] Aurelio Ojeda #0.2 103/ulNormal0.0-0.7The [facility] HospitalComment on above: Performed By: #### LACT #### [facility] [address] [address] [address] Aurelio Chaneyosinophils/100 WBC (Bld)1.9 %Normal0.9-7.0The [facility] Comment on above:Performed By: #### LACT #### [facility] [address] [place] [address] Dr. Aurelio Chaneyrythrocyte distribution width (RBC) [Ratio]13.3 %Aqlcwi90.0-15.0 The [facility] Inlet HospitalComment on above:Performed By: #### LACT #### [facility] [address] [place] [address] Dr. Aurelio LeavittHematocrit (Bld) [Volume fraction]45.1 %Rvoxei32.0-48.0The [facility] Inlet HospitalComment on above:Performed By: #### LACT #### [facility] [address] [place] [address] Dr. Aurelio LeavittHemoglobin (Bld) [Mass/Vol]16.8 g/dLCritically high12.0-16.0The [facility] HospitalComment on above:Performed By: #### LACT #### [facility] [address] [place] [address] Dr. Aurelio Cruz #0.03 10e3/ulNormal0.00-0.03The [facility] HospitalComment on above:Performed By: #### LACT #### [facility] [address] [place] [address] Dr. Aurelio Cruz %0.3 %Normal0.0-0.5The [facility] HospitalComment on above: Performed By: #### LACT #### [facility] [address] [place] [address] Dr. Aurelio RomanoH #3.2 103/ulNormal1.2-3.8The [facility] HospitalComment on above:Performed By: #### LACT #### [facility] [address] [place] [address] Dr. Aurelio Romanohocytes/100 WBC (Bld)27.9 %Aadzpj77.5-60.0The [facility] HospitalComment on above:Performed By: #### LACT #### [facility] [address] [place] [address] Dr. Aurelio Frost DIFF REQNONormalThe [facility] HospitalComment on above: Performed By: #### LACT #### [facility] [address] [place] [address] Dr. Aurelio Hampton (RBC) [Entitic mass]33.7 biIxdiua99.7-34.0The [facility] HospitalComment on above:Performed By: #### LACT #### [facility] [address] [place] [address] Dr. Aurelio Hampton (RBC) [Mass/Vol]37.3 g/dLCritically high29.9-35.2The [facility] HospitalComment on above:Performed By: #### LACT #### [facility] [address] [place] [address] Dr. Aurelio Dunham (RBC) [Entitic vol]90.4 fIRorxuv02.0-99.0The [facility] HospitalComment on above:Performed By: #### LACT #### [facility] [address] [place] [address] Dr. Aurelio Abdi #1.1 103/ulCritically high0.3-0.8ThAdena Health System Comment on above:Performed By: #### LACT #### [facility] [address] [place] [address] Dr. Aurelio Juniorocytes/100 WBC (Bld)9.5 %Normal1.7-12.0[facility] Comment on above:Performed By: #### LACT #### [facility] [address] [place] [address] Dr. Aurelio Scruggs #6.8 103/ulCritically high1.4-6.5ThAdena Health System Comment on above:Performed By: #### LACT #### [facility] [address] [place] [address] Dr. Aurelio Friedmanutrophils/100 WBC (Bld)59.7 %Iplwjn44.0-75.0The [facility] HospitalComment on above:Performed By: #### LACT #### [facility] [address] [place] [address] Dr. Aurelio LeavittPlatelet mean volume (Bld) [Entitic vol]12.1 fLNormal9.5-13.5The [facility] HospitalComment on above:Performed By: #### LACT #### [facility] [address] [place] [address] Dr. Aurelio LeavittPLT247 103/klFrogmv270-568Qqj [facility] HospitalComdeckerville community hospital on above: Performed By: #### LACT #### [facility] [address] [place] [address] Dr. Aurelio LeavittRBC4.99 106/ulNormal4.20-5.40The [facility] HospitalComdeckerville community hospital on above:Performed By: #### LACT #### [facility] [address] [place] [address] Dr. Aurelio LeavittWBC11.3 103/ulCritically high4.0-11.0The [facility] on above:Performed By: #### LACT #### [facility] [address] [place] [address] Dr. Aurelio LeavittLIPASEon 38-21-1457Umuafh [Catalytic activity/Vol]163.0 U/LNormal 73.0-393.0The [facility] on above:Performed By: #### ACETON #### [facility] [address] [place] [address] Dr. Aurelio LeavittGLYCOHEMOGLOBIN A1Con 03-02-3704BUN RECOMMENDATIONSEE BELOWNormal The [facility] HospitalComdeckerville community hospital on above:Result Comment: ADA RECOMMENDED LIMIT 4.0 - 6.0 ADA THERAPEUTIC TARGET < 7.0 ACTION SUGGESTED > 7.0Performed By: #### ACETON #### [facility] [address] [place] [address] Dr. Aurelio LeavittGlucose [Mass/Vol]232 mg/dLNormalThe [facility] HospitalComdeckerville community hospital on above:Performed By: #### ACETON #### [facility] [address] [place] [address] Dr. Aurelio LeavittHbA1c (Bld) [Mass fraction]9.7 %Critically high4.5-6.2The [facility] HospitalComment on above:Performed By: #### ACETON #### [facility] [address] [place] [address] Dr. Aurelio James SERUMon 54-35-0299YELEWKTEpblesleZwtbzvXPCSFEAKDvu [facility] HospitalComment on above:Performed By: #### ACETON #### [facility] [address] [place] [address] Dr. Aurelio Leo AUTO DIFFon 16-48-0591ZULL #0.1 103/ulNormal0.0-0.1The [facility] HospitalComment on above:Performed By: #### ACETON #### [facility] [address] [place] [address] Dr. Aurelio LeavittBasophils/100 WBC (Bld)0.9 %Normal0.2-2.0[facility] Comment on above:Performed By: #### ACETON #### [facility] [address] [place] [address] Dr. Aurelio Ojeda #0.2 103/ulNormal0.0-0.7The [facility] HospitalComment on above: Performed By: #### ACETON #### [facility] [address] [place] [address] Dr. Aurelio Chaneyosinophils/100 WBC (Bld)1.7 %Normal0.9-7.0[facility] Comment on above:Performed By: #### ACETON #### [facility] [address] [place] [address] Dr. Aurelio Chaneyrythrocyte distribution width (RBC) [Ratio]13.5 %Pefxrk15.0-15.0 The [facility] HospitalComment on above:Performed By: #### ACETON #### [facility] [address] [place] [address] Dr. Aurelio LeavittHematocrit (Bld) [Volume fraction]44.4 %Rrkkxg63.0-48.0[facility] HospitalComment on above:Performed By: #### ACETON #### [facility] [address] [place] [address] Dr. Aurelio LeavittHemoglobin (Bld) [Mass/Vol]15.4 g/iSYqqkmt34.0-16.0The [facility] HospitalComment on above:Performed By: #### ACETON #### [facility] [address] [place] [address] Dr. Aurelio Cruz #0.09 10e3/ulCritically high0.00-0.03The [facility] Comment on above:Performed By: #### ACETON #### [facility] [address] [place] [address] Dr. Aurelio Cruz %0.8 %Critically high0.0-0.5The [facility] HospitalComment on above:Performed By: #### ACETON #### [facility] [address] [place] [address] Dr. Aurelio Romano #3.8 103/ulNormal1.2-3.8The [facility] HospitalComment on above:Performed By: #### ACETON #### [facility] [address] [place] [address] Dr. Aurelio Romanohocytes/100 WBC (Bld)35.1 %Pwtghu17.5-60.0The [facility] HospitalComment on above:Performed By: #### ACETON #### [facility] [address] [place] [address] Dr. Aurelio GravesUAL DIFF REQNONormalThe [facility] HospitalComment on above: Performed By: #### ACETON #### [facility] [address] [place] [address] Dr. Aurelio Hampton (RBC) [Entitic mass]32.0 kzEqaota34.7-34.0The [facility] HospitalComment on above:Performed By: #### ACETON #### [facility] [address] [place] [address] Dr. Aurelio Hampton (RBC) [Mass/Vol]34.7 g/mKLsqklw11.9-35.2The [facility] HospitalComment on above:Performed By: #### ACETON #### [facility] [address] [place] [address] Dr. Aurelio HamptonV (RBC) [Entitic vol]92.1 aKEcxjho60.0-99.0The [facility] HospitalComment on above:Performed By: #### ACETON #### [facility] [address] [place] [address] Dr. Aurelio Abdi #1.0 103/ulCritically high0.3-0.8The [facility] Comment on above:Performed By: #### ACETON #### [facility] [address] [place] [address] Dr. Aurelio Juniorocytes/100 WBC (Bld)9.0 %Normal1.7-12.0[facility] Comment on above:Performed By: #### ACETON #### [facility] [address] [place] [address] Dr. Aurelio Scruggs #5.6 103/ulNormal1.4-6.5The [facility] HospitalComment on above:Performed By: #### ACETON #### [facility] [address] [place] [address] Dr. Aurelio Friedmanutrophils/100 WBC (Bld)52.5 %Sncqdq61.0-75.0The [facility] HospitalComment on above:Performed By: #### ACETON #### [facility] [address] [place] [address] Dr. Aurelio Johnsonlet mean volume (Bld) [Entitic vol]12.3 fLNormal9.5-13.5The [facility] HospitalComment on above:Performed By: #### ACETON #### [facility] [address] [place] [address] Dr. Aurelio LeavittPLT304 103/lgZriqie257-313Kke [facility] HospitalComment on above: Performed By: #### ACETON #### [facility] [address] [place] [address] Dr. Aurelio LeavittRBC4.94 106/ulNormal4.20-5.40The [facility] HospitalComment on above:Performed By: #### ACETON #### [facility] [address] [address] [address] Aurelio LeavittWBC11.0 103/ulNormal4.0-11.0The [facility] Hospitalment on above:Performed By: #### ACETON #### [facility] [address] [place] [address] Dr. Aurelio LeavittCovicharu-19 PCR (CVDTB)on 37-21-2854QAZO-CoV-2 (COVID-19) RNA GABY+probe Ql (Unsp spec)DetectedCritically abnormalNOT DETECTEDThe [facility] on above:Result Comment: This test is not yet approved or cleared by the [place] FDA. When there are no FDA-approved or cleared tests available, and other criteria are met, FDA can make tests available under an emergency access mechanism called an Emergency Use Authorization (EUA). The EUA for this test is supported by the [place] of Health and Human Service's declaration that circumstances exist to justify the emergency use of in vitro diagnostics for the detection and/or diagnosis of the virusthat causes COVID-19. This EUA will remain in effect for the duration of the COVID-19 declaration ju stifying emergency of IVDs, unless it is terminated or revoked by the FDA (after which the test mayno longer be used).Performed By: #### ACETON #### [facility] [address] [place] [address] Dr. Aurelio Mercer-DIMERon 90-04-1678J-DIMER0.30 mg/L FEUNormal<=0.59The [facility] on above:Performed By: #### ACETON #### [facility] [address] [place] [address] Dr. Aurelio Mercer-DIMER COMMENTSSEE BELOWNoAultman Alliance Community Hospital on above:Result Comment: Increases in D-Dimer concentration observed with thromboembolic events [...] stress, and generalized hospitalization. Performed By: #### ACETON #### [facility] [address] [place] [address] Dr. Aurelio García 14(COMP METB)on 29-81-6123Cdpatbq [Mass/Vol]3.1 g/dL Critically low3.4-5.0The [facility] HospitalComment on above:Performed By: #### HSTROPN, CMP #### [facility] [address] [place] [address] Dr. Aurelio LeavittAlbumin/Globulin [Mass ratio]0.7 {ratio}NormalThe [facility] HospitalComment on above:Performed By: #### HSTROPN, CMP #### [facility] [address] [place] [address] Dr. Aurelio AyalaP [Catalytic activity/Vol]130 U/LCritically jigi74-588Dgc [facility] HospitalComment on above:Performed By: #### HSTROPN, CMP #### [facility] [address] [place] [address] Dr. Aurelio Goldberg gap [Moles/Vol]16.1 mmol/LNormalThe [facility] Comment on above:Performed By: #### HSTROPN, CMP #### [facility] [address] [place] [address] Dr. Aurelio LeavittAST [Catalytic activity/Vol]11 U/LCritically htv47-90Bfy [facility] HospitalComment on above:Performed By: #### HSTROPN, CMP #### [facility] [address] [place] [address] Dr. Aurelio LeavittBilirubin [Mass/Vol]1.0 mg/dLNormal0.2-1.0The [facility] Comment on above:Performed By: #### HSTROPN, CMP #### [facility] [address] [place] [address] Dr. Aurelio LeavittCalcium [Mass/Vol]7.3 mg/dLCritically low8.5-10.1The [facility] HospitalComment on above:Performed By: #### HSTROPN, CMP #### [facility] [address] [address] [address] Aurelio LeavittChloride [Moles/Vol]94 mmol/LCritically yuc50-112Kwi [facility] HospitalComdeckerville community hospital on above:Performed By: #### HSTROPN, CMP #### [facility] [address] [address] [address] Aurelio LeavittCO2 [Moles/Vol]20.6 mmol/LCritically low21.0-32.0The [facility] HospitalComment on above:Performed By: #### HSTROPN, CMP #### [facility] [address] [place] [address] Dr. Aurelio LeavittCreatinine [Mass/Vol]0.57 mg/dLNormal0.55-1.02The [facility] on above:Performed By: #### HSTROPN, CMP #### [facility] [address] [place] [address] Dr. Aurelio ChaneyGFR-AF ALBANIAN>60Normal>=60[facility] on above:Performed By: #### HSTROPN, CMP #### [facility] [address] [place] [address] Dr. Aurelio CahneyGFR-NON AF ALBANIAN>60Normal>=60The [facility] on above:Performed By: #### HSTROPN, CMP #### [facility] [address] [place] [address] Dr. Aurelio LeavittGlobulin (S) [Mass/Vol]4.2 g/dLNormalThe [facility] HospitalComdeckerville community hospital on above:Performed By: #### HSTROPN, CMP #### [facility] [address] [place] [address] Dr. Aurelio LeavittGlucose [Mass/Vol]462 mg/dLCritically yatt49-952Usr [facility] on above:Performed By: #### HSTROPN, CMP #### [facility] [address] [place] [address] Dr. Aurelio LeavittPotassium [Moles/Vol]4.7 mmol/LNormal3.5-5.1[facility] Comment on above:Performed By: #### HSTROPN, CMP #### [facility] [address] [address] [address] Aurelio LeavittProtein [Mass/Vol]7.3 g/dLNormal6.4-8.2[facility] Comment on above:Performed By: #### HSTROPN, CMP #### [facility] [address] [address] [address] Aurelio LeavittSodium [Moles/Vol]126 mmol/LCritically pjg032-891Psb [facility] HospitalComment on above:Performed By: #### HSTROPAlis, CMP #### [facility] [address] [place] [address] Dr. Aurelio LeavittUrea nitrogen [Mass/Vol]14.0 mg/dLNormal7.0-18.0[facility] HospitalComment on above:Performed By: #### HSTROPN, CMP #### [facility] [address] [place] [address] Dr. Aurelio Gutierrez nitrogen/Creatinine [Mass ratio]24.6 mg/mgNormalThe [facility] HospitalComment on above:Performed By: #### HSTROPN, CMP #### [facility] [address] [place] [address] Dr. Aurelio Bailey, HIGH SENSITIVITYon [id number] pg/mLNormal 4.0-51.3[facility] HospitalComment on above:Result Comment: CUT-OFF POINTS HAVE BEEN ESTABLISHED BASED ON THE FOURTH UNIVERSAL DEFINITIONS OF MYOCARDIAL INFARCTION. THE UPPER REFERENCE LIMIT (URL) OF TROPONIN, DEFINED THE 99TH PERCENTILE OF cTnI DISTRIBUTION IN A REFERENCE POPULATION, HAS BEEN CONFIRMED THE DECISION THRESHOLD FOR [place] DIAGNOSIS.Performed By: #### HSTROPN, CMP #### [facility] [address] [place] [address] Dr. Aurelio LeavittXR CHEST 1 Von [id number] CHEST 1 VEXAM: XR CHEST 1 V HISTORY: SHORTNESS OF [...] Electronically authenticated by: CORKY PINTO Date: 2021-11-15 01:06[facility] [id number] HEALTHHNO ID: [id number] Author: RT Jb(R) Service: ? Author Type: [...] Increased Observations by Caregivers and Patient Refused Interventions/Assistance PATIENT GENDER DATA: Female. status: : No status: NO. PATIENT RELEVANT IMPLANT DATA REVIEWED: Yes RADIOLOGY DEPARTMENT: MR; Exam(s) Completed: Spine: Cervical spine PERIPHERAL IV DATA: Not applicable SIGNED BY: RT Jb(Erick) March 24, 2021 6:37 [facility] CERVICAL SPINE WO IVCONon [id number] CERVICAL SPINE WO IVCON* * *Final Report* * * DATE OF EXAM: Mar 24 2021 6:50AM [facility] 0297 - MRI CERVICAL SPINE [...] spinal cord signal/caliber and posterior fossa. No fracture/dislocation. Normal tissues. C2 -- 3: Patent central [...] is taken as C2-3. Structural anomalies: None. Virtualization Engineer: PSCB Transcribe Date/Time: Mar 24 2021 7:36A Dictated by : LITTLE HERNANDEZ MD This examination was interpreted and the report reviewed and electronically signed by: LITTLE HERNANDEZ MD on Mar 24 2021 7:40AM EST [id number] [facility] HospitalCERVICAL SPINE 2 [facility] 3 [facility] 12-16-2019 CERVICAL SPINE 2 OR 3 [facility] Department of Radiology [address] [place] [phone] Patient Name: JACQUELYN ZENG : 1975 [...] identified. Electronically signed: Sha Gross. Transcribed by: [email or web address], User Resident: Electronically Signed by: SHA GROSS @ 12/16/2019 11:44 AMNormalThe [facility] Health SystemComment on above:Order Comment: EvaluateMRI KNEE WO CONTRAST LEFTon [id number] KNEE WO CONTRAST LEFTUnKindred Healthcare Department of Radiology [address] [place] [phone] Patient Name: JACQUELYN ZENG : 1975 Sex: F Age: Race: White Pt. Location: 84 Patient Status: Ordered Date: 11/30/2019 1:55:00 PM Completed Date: 12/07/2019 08:52 AM Requesting Provider: BENJAMIN CUMMINS Attending Provider: Report Copy To: Signs & Symptoms: M25.569 Pain in unspecified knee I10 History: [place], PHONE:[phone],*NEEDS ORTHO F/U APPT. NO METAL Workers comp is approved with this diagnosis, cannot change it. [facility] Approved for CPT 56279 Claim#[id number] Valid 11/27/19-12/11/19 12/01/19 *SLA Comments: Please Evaluate [...] knee. Electronically signed: Michael Thayer. Transcribed by: [email or web address], User Resident: Electronically Signed by: MICHAEL JEOVANY @ 12/07/2019 11:04 AMNormalThe [facility]zer Health SystemComment on above:Order Comment: Please EvaluateMRI SHOULDER WO CONTRAST LEFTon [id number] SHOULDER WO CONTRAST LEFT [facility] Department of Radiology [address] [place] [phone] Patient Name: JACQUELYN ZENG : 1975 Sex: F Age: Race: White Pt. Location: Patient Status: Ordered Date: 11/30/2019 1:55:00 PM Completed Date: 12/07/2019 08:51 AM Requesting Provider: BENJAMIN CUMMINS Attending Provider: Report Copy To: Signs & Symptoms: M25.512 Pain in left shoulder I10 History: [place], PHONE:[phone],*NEEDS ORTHO F/U APPT. NO METAL [facility] Approved for CPT 09851 Claim#[id number] Valid 11/27/19-12/11/19 12/01/19 *SLA Comments: Please Evaluate [...] interval. There is no fluid in the subacromial/subdeltoid bursa. There is no discrete tear identified [...] ligament. Electronically signed: Michael Thayer. Transcribed by: [email or web address], User Resident: Electronically Signed by: MICHAEL THAYER @ 12/07/2019 10:56 [facility] HospitalComment on above:Order Comment: Please EvaluateKNEE LEFT 4VWSon [id number] LEFT 4VWSHolzer Health System Department of Radiology [address] [place] [phone] Patient Name: JACQUELYN ZENG : 1975 Sex: F Age: Race: White Pt. Location: Patient Status: Ordered Date: 10/21/2019 9:50:00 AM Completed Date: 10/21/2019 10:05 AM Requesting Provider: BENJAMIN CUMMINS Attending Provider: Report Copy To: Signs & Symptoms: M25.569 Pain in unspecified knee I10 History: [place] Comments: Views (X-RAY, KNEE): AP, Lateral, Tunnel, [place] , Weight Bearing?: Y Exam: [facility] 10/21/2019 10:05 AM CLINICAL INDICATIONS: M25.569 Pain in unspecified knee I10 left knee pain, recent falls and injury TECHNOLOGIST COMMENTS: Patient complains of left knee pain. Patient states history of several recent falls. QUESTION FOR THE RADIOLOGIST: Views (X-RAY, KNEE): AP, Lateral, Tunnel, [place] , Weight Bearing?: Y PROTOCOL: AP,Lateral,Tunnel and Tangential views were obtained. COMPARISON: None FINDINGS: There is no joint effusion fracture or dislocation. Mineralization and alignment is within normal limits. Mild lateral patellar tilt. Mild early marginal osteophyte formation. IMPRESSION: Early marginal osteophyte formation without acute ossific normality. Electronically signed: Jessica Garcia. Transcribed by: [email or web address], User Resident: Electronically Signed by: JESSICA Ozuna GABRIELLE @ 10/21/2019 11:11 AMNSelect Medical OhioHealth Rehabilitation HospitalComment on above:Order Comment: Views (X-RAY, KNEE): AP, Lateral, Tunnel, [place] , Weight Bearing?: YSHOUDEMARIO Bullard [id number] [facility] Department of Radiology [address] [place] [phone] Patient Name: JACQUELYN ZENG : 1975 Sex: F Age: Race: White Pt. Location: Patient Status: Ordered Date: 10/21/2019 9:50:00 AM Completed Date: 10/21/2019 10:03 AM Requesting Provider: BENJAMIN CUMMINS Attending Provider: Report Copy To: Signs & Symptoms: M25.512 Pain in left shoulder I10 History: [place] Comments: Views (X-RAY, SHOULDER): AP, [place], Y-Lateral, [...] Electronically signed: Chepe Espinoza M.D.. Transcribed by: [email or web address], User Resident: Electronically Signed by: CHEPE ESPINOZA @ 10/21/2019 11:59 AMNormalThe Holzer Health SystemComment on above:Order Comment: Views (X-RAY, SHOULDER): AP, [place], Y-Lateral, BernageauPOC STREP SCREENon 09-03-2011XSZKO POCNegativeNormalNEGThe [facility]zer Health SystemComment on above: Result Comment: Performed in Emergency Department.Performed By: #### [id number] #### [address] Vital Signs Date TimeVital SignValuePerforming JykioapztVdinkdwd86-63-0564 11:48-0400Body cjvjgu085.3 cmOlu Arce MD Work Phone: [facility] HospitalQhbhkjcehs50-10-8532 11:48-0400Body mass index (BMI) [Ratio]31.9 kg/x0QklcfcaOlu Arce MD Work Phone: [phone] [place], [place] [address]Fpfmjpixul62-72-1083 11:48-0400Body jiozuf32.98 kgOlu Arce MD Work Phone: [facility] HospitalMvvhfyabav18-78-7402 11:48-0400Diastolic blood adjumjub39 mm[Hg]Olu Arce MD Work Phone: [address] [address]Ohpajotapo16-70-3774 11:48-0400Systolic blood jwnyefmo704 mm[Hg]Olu Arce MD Work Phone: [facility] HospitalBigmowkqvg40-29-7440 08:53-0400Body temperature 97.5 [degF]Kinga Mendes FORM GRADER.NURSING EDUCATOR Work Phone: [facility]07-25-2025 08:53-0400Diastolic blood aryqfcus65 mm[Hg]Kinga Froimson FORM GRADER.NURSING EDUCATOR Work Phone: [facility]07-25-2025 08:53-0400Heart rate98 /min Kinga Froimson FORM GRADER.NURSING EDUCATOR Work Phone: [facility]07-25-2025 08:53-0400Respiratory rate 21 /minHeather Froimson FORM GRADER.NURSING EDUCATOR Work Phone: [facility]07-25-2025 08:53-0400Systolic blood ovdjjlei904 mm[Hg]Kinga Froimson FORM GRADER.NURSING EDUCATOR Work Phone: [facility]06-12-2025 08:30-0400Body mass index (BMI) [Ratio]31.9 kg/n8FwzznlfOlu Arce MD Work Phone: [facility]OC[facility] CenterBokkzzazsp74-54-3120 08:30-0400Body dvuhey24.98 kgOlu Arce MD Work Phone: noCap[facility] Medical CenterXcyjmqicif07-71-6139 08:25-0400Body oromgf150.3 cmJosh Ochoa MD Work Phone: [facility] HospitalTuwugyfjnc62-88-4163 08:25-0400Body mass index (BMI) [Ratio]32.64 kg/m2Josh Ochoa MD Work Phone: noCap[facility] Medical CenterJoilxbsmpz27-41-1345 08:25-0400Body temperature 97.81 [degF]Josh Ochoa MD Work Phone: noCap[facility] CenterUckhxvokgh82-05-4188 08:25-0400Body .25 kgJosh Ochoa MD Work Phone: noCap[facility] Medical CenterFsqrwnhpql62-53-1623 08:25-0400Diastolic blood jcyhdqav91 mm[Hg]Josh Ochoa MD Work Phone: noCap[facility] CenterBtlbpaaglz98-54-0478 08:25-0400Heart rate61 /min Josh Ochoa MD Work Phone: noCap[facility] Medical CenterFjvnffzbez38-68-9387 08:25-0400Respiratory rate22 /minJosh Ochoa MD Work Phone: [facility] HospitalFabiyyfmnw98-19-0597 08:25-0148ZsP9% (BldA) [Mass fraction]90 %Josh Ochoa MD Work Phone: NOCap[facility] Medical CenterRoammzdeny55-57-3919 08:25-0400Systolic blood zfsrtoct509 mm[Hg]Josh Ochoa MD Work Phone: [facility] HospitalDyzmstccdu02-10-0045 10:55-0400Diastolic blood krfltkiw67 mm[Hg]Jessee Billy MD Work Phone: [facility]05-29-2025 10:55-0400Systolic blood toxcptwa497 mm[Hg]Jessee Billy MD Work Phone: [facility]05-29-2025 10:27-0400Body .3 cmJessee Billy MD Work Phone: [facility]05-29-2025 10:27-0400Body mass index (BMI) [Ratio]31.6 kg/d7HwflpJessee Billy MD Work Phone: [facility]05-29-2025 10:27-0400Body xfxqcmpoolc55 [degF]Jessee Billy MD Work Phone: [facility]05-29-2025 10:27-0400Body ggrejc35.07 kgJessee Billy MD Work Phone: [facility]05-29-2025 10:27-0400Heart rate94 /minJessee Billy MD Work Phone: [facility]05-02-2025 11:41-0400Diastolic blood zjvbiedu45 mm[Hg]Kinga Mendes FORM GRADER.NURSING EDUCATOR Work Phone: [facility]05-02-2025 11:41-0400Heart mytb589 /minHeather Froabielon FORM GRADER.NURSING EDUCATOR Work Phone: [facility]05-02-2025 11:41-0400Systolic blood yqkxiyjp298 mm[Hg]Kinga Mendes APRN.NURSING EDUCATOR Work Phone: [facility]05-01-2025 08:14-0400Body mass index (BMI) [Ratio]31.16 kg/d2MvahtstOlu Arce MD Work Phone: [facility] HospitalSoivbotsux68-25-8908 08:14-0400Body rdayho82.71 kgOlu Arce MD Work Phone: [facility] HospitalZuzuqfhxfp82-65-4562 08:14-0400Diastolic blood xmuusdyk98 mm[Hg]Olu Arce MD Work Phone: [facility] HospitalMbmjvrrtwv43-52-6316 08:14-0400Systolic blood smdruofz159 mm[Hg]Olu Arce MD Work Phone: [facility] HospitalCgyjvxtqhk56-62-5368 09:24-0400Body kqxyub178.3 cmJosh Ochoa MD Work Phone: [facility] HospitalRxmhdqlsxw35-18-8576 09:24-0400Body mass index (BMI) [Ratio]32.19 kg/m2Josh Ochoa MD Work Phone: [facility] HospitalZoiofbclfu83-21-8618 09:24-0400Body temperature 97.11 [degF]Josh Ochoa MD Work Phone: [facility] HospitalRnfqoqfqyy01-74-3463 09:24-0400Body nqdukh72.88 kgJosh Ochoa MD Work Phone: [facility] HospitalCzhvbyxdfi27-60-2784 09:24-0400Diastolic blood ntohnhqb63 mm[Hg]Josh Ochoa MD Work Phone: [facility] HospitalCphrrnjhpc10-93-3339 09:24-0400Heart wpvu376 /min Josh Ochoa MD Work Phone: [facility] HospitalQswskssapw66-56-2623 09:24-0400Respiratory rate22 /minJosh Ochoa MD Work Phone: [facility] HospitalGcuuptffkk44-08-8594 09:24-9247LuZ0% (BldA) [Mass fraction]91 %Josh Ochoa MD Work Phone: [facility] HospitalSgnpqyadlr57-00-0478 09:24-0400Systolic blood vbzmtaza328 mm[Hg]Josh Ochoa MD Work Phone: [facility] HospitalZbxzzxnfgj28-43-4378 08:52-0500Body ymbxgu381.3 cmJosh Ochoa MD Work Phone: [phone] HospitalXodaawscmq99-08-0502 08:52-0500Body mass index (BMI) [Ratio]33.82 kg/m2Josh Ochoa MD Work Phone: [phone] HospitalLxjwowcgfd42-99-6885 08:52-0500Body temperature 95.9 [degF]Josh Ochoa MD Work Phone: [facility] HospitalFfdulxwnsr59-85-0747 08:52-0500Body lfcogt661.87 kgJosh Ochoa MD Work Phone: [facility] HospitalLtbylcfbej60-88-2226 08:52-0500Diastolic blood fyydickc16 mm[Hg]Josh Ochoa MD Work Phone: [facility] HospitalLvkliirkxl11-90-1461 08:52-0500Heart gwvg211 /min Josh Ochoa MD Work Phone: [facility] HospitalNxagecgbdd70-72-1502 08:52-0500Respiratory rate22 /minJosh Ochoa MD Work Phone: [facility] HospitalVogewsoipo94-73-9465 08:52-5601UkA1% (BldA) [Mass fraction]92 %Josh Ochoa MD Work Phone: [facility] HospitalYbwjqtujbn59-85-2593 08:52-0500Systolic blood huougnyb136 mm[Hg]Josh Ochoa MD Work Phone: [facility] HospitalYepluraqsp18-84-1565 10:47-0500Diastolic blood lcliuoyc57 mm[Hg]Infusion 10 Work Phone: [facility]12-03-2024 10:47-0500Heart rate92 /min Infusion 10 Work Phone: [facility]12-03-2024 10:47-0500Systolic blood ftnluuot400 mm[Hg]Infusion 10 Work Phone: [facility]12-02-2024 11:16-0500Diastolic blood qkhfusfp32 mm[Hg]Infusion 5 Work Phone: [facility]12-02-2024 11:16-0500Heart gbek867 /minInfusion 5 Work Phone: [facility]12-02-2024 11:16-0500Systolic blood xzynjnts032 mm[Hg]Infusion 5 Work Phone: [facility]11-27-2024 11:48-0500Diastolic blood fvdsaryp83 mm[Hg]Infusion 7 Work Phone: [facility]11-27-2024 11:48-0500Heart rate87 /min Infusion 7 Work Phone: [facility]11-27-2024 11:48-0500Systolic blood yocjnojq597 mm[Hg]Infusion 7 Work Phone: [facility]11-27-2024 08:40-0500Body temperature 97.5 [degF]Kinga Froimson FORM GRADER.NURSING EDUCATOR Work Phone: [facility]11-27-2024 08:40-0500Diastolic blood bbfpzoca98 mm[Hg]Kinga Froimson FORM GRADER.NURSING EDUCATOR Work Phone: [facility]11-27-2024 08:40-0500Heart rate70 /min Kinga Froimson FORM GRADER.NURSING EDUCATOR Work Phone: [facility]11-27-2024 08:40-0500Systolic blood sohmwakd864 mm[Hg]Kinga Froimson FORM GRADER.NURSING EDUCATOR Work Phone: [facility]10-16-2024 09:06-0400Body tdwvqi373.3 cmJacdrea Krishnan COURTESY DRIVER Work Phone: [facility] HospitalUpwouqzgws44-79-7764 09:06-0400Body mass index (BMI) [Ratio]34.7 kg/o5IrtzukszyvSara Krishnan COURTESY DRIVER Work Phone: [facility] HospitalRpjbxhtdrw47-02-3096 09:06-0400Body dhylol417.59 kgJacdrea Krishnan COURTESY DRIVER Work Phone: [facility] HospitalLmrhveslot77-09-5014 09:06-0400Diastolic blood wnrkjruv93 mm[Hg]Sara Krishnan COURTESY DRIVER Work Phone: [facility] HospitalMivbpbgmfk37-87-9105 09:06-0400Systolic blood yedwloyn852 mm[Hg]Sara Krishnan COURTESY DRIVER Work Phone: [facility] HospitalUllxvlkjxm62-43-3473 10:24-0400Body .26 cmMD Josh Ochoa Work Phone: [facility]08-28-2024 10:24-0400 Body .76 kgMD Josh Ochoa Work Phone: [phone] [place], [place] 98[address]202-08-2024 14:12-0500 Body txfoki331.3 cmJosh Ochoa MD Work Phone: [facility] HospitalMwzaevspyk06-35-2825 14:12-0500Body mass index (BMI) [Ratio]37.07 kg/m2Josh Ochoa MD Work Phone: [facility] HospitalObetuassgb89-04-8855 14:12-0500Body temperature 97.11 [degF]Josh Ochoa MD Work Phone: [facility] HospitalSbizsddcvo88-55-2929 14:12-0500Body dihboy560.85 kgJosh Ochoa MD Work Phone: [facility] HospitalKxmidmisim46-77-9757 14:12-0500Diastolic blood fyvkpsqo53 mm[Hg]Josh Ochoa MD Work Phone: [facility] HospitalFvfsfqooyp72-29-5581 14:12-0500Heart vqsw812 /min Josh Ochoa MD Work Phone: noCapital Region Medical CenterAidfsxiziw85-28-3617 14:12-5849TiE3% (BldA) [Mass fraction]96 %Josh Ochoa MD Work Phone: [facility] HospitalEtzeivxuum18-83-6499 14:12-0500Systolic blood qqshbmqu291 mm[Hg]Josh Ochoa MD Work Phone: [facility] HospitalKmswbjekrh33-94-6148 08:39-0400Diastolic blood mm[Hg]Kinga Froimson FORM GRADER.NURSING EDUCATOR Work Phone: [facility]08-23-2023 08:39-0400Heart rate97 /min Kinga Froimson FORM GRADER.NURSING EDUCATOR Work Phone: [facility]08-23-2023 08:39-0400Systolic blood ugzzmdva299 mm[Hg]Kinga Froimson FORM GRADER.NURSING EDUCATOR Work Phone: [facility]04-27-2023 16:05-0400Diastolic blood fdqyksyn69 mm[Hg]MD Josh Ochoa Work Phone: [facility]04-27-2023 16:05-0400 Heart rate78 /minMD Josh Ochoa Work Phone: [facility]04-27-2023 16:05-0400 Respiratory rate16 /minMD Josh Ochoa Work Phone: [facility]04-27-2023 16:05-0400 SaO2% (BldA) [Mass fraction]93 %MD Josh Ochoa Work Phone: [facility]04-27-2023 16:05-0400 Systolic blood hwpludxa735 mm[Hg]MD Josh Ochoa Work Phone: [facility]04-27-2023 15:35-0400 Body xbemiliuiqj52.4 [degF]MD Johs Ochoa Work Phone: [facility]04-27-2023 15:05-0400 Inhaled oxygen flow rate8 L/minMD Josh Ochoa Work Phone: [facility]04-27-2023 13:23-0400 Body lkwfup750.26 cmMD Josh Ochoa Work Phone: [facility]04-27-2023 13:23-0400 Body mass index (BMI) [Ratio]33.2 kg/m2MD Josh Ochoa Work Phone: [facility]04-27-2023 13:23-0400 Body jalids156.05 kgMD Josh Ochoa Work Phone: [facility]12-06-2022 10:11-0500 Body lmmcie588.3 cmHeather Froimson FORM GRADER.NURSING EDUCATOR Work Phone: [facility]12-06-2022 10:11-0500Body buvqqo89.63 kgHeather Froimson FORM GRADER.NURSING EDUCATOR Work Phone: [facility]12-06-2022 10:11-0500Diastolic blood wfidsktp81 mm[Hg]Kinga Froimson FORM GRADER.NURSING EDUCATOR Work Phone: [facility]12-06-2022 10:11-0500Heart frrs519 /minHeather Froimson FORM GRADER.NURSING EDUCATOR Work Phone: [facility]12-06-2022 10:11-0500Systolic blood mm[Hg]Kinga Froimson FORM GRADER.NURSING EDUCATOR Work Phone: [facility]08-30-2022 15:11-0400Body sjxizj070.3 cmHeather Froimson FORM GRADER.NURSING EDUCATOR Work Phone: [facility]08-30-2022 15:11-0400Body caneis84.07 kgHeather Froimson FORM GRADER.NURSING EDUCATOR Work Phone: [facility]08-30-2022 15:11-0400Diastolic blood offqxvgk99 mm[Hg]Kinga Froimson FORM GRADER.NURSING EDUCATOR Work Phone: [facility]St[facility] Xyxsaw61-36-8559 15:11-0400Heart rate92 /min Kinga Froimson FORM GRADER.NURSING EDUCATOR Work Phone: [facility]08-30-2022 15:11-0400Respiratory rate 22 /minHeather Froimson FORM GRADER.NURSING EDUCATOR Work Phone: [facility]08-30-2022 15:11-0400Systolic blood bwaoeuuq281 mm[Hg]Kinga Froimson FORM GRADER.NURSING EDUCATOR Work Phone: [facility]St[facility] Gmvnhd19-66-5108 13:00-0400Body .18 cmPamellaith Collins Other [employer] Other 08-21-2022 13:00-0400Body mass index (BMI) [Ratio] 33.51 kg/k9VpazwpVianney Collins Other [employer] Other 08-21-2022 13:00-0400Body qkdggloljfb58.5 [degF]Vianney Collins Other [employer] Other 08-21-2022 13:00-0400Body .07 kgVianney Collins Other [employer] Other 08-21-2022 13:00-0400Diastolic blood zzyoxnab54 mm[Hg] Vianney Collins Other [employer] Other 08-21-2022 13:00-0400Respiratory rate18 /minVianney Collins Other [employer] Other 08-21-2022 13:00-2353CmU3% (BldA) [Mass fraction]97 % Vianney Collins [facility] [employer] Other 08-21-2022 13:00-0400Systolic blood mm[Hg] Vianney Karina Other [facility] [employer] Other 07-30-2022 10:10-0400Body heightAmbhuber Workman Other [facility] [employer] Other 07-30-2022 10:10-0400Body mass index (BMI) [Ratio] 33.67 kg/j4XeiqjChanel Workman Other [employer] Other 07-30-2022 10:10-0400Body uekkdcbdgaw88 [degF]Chanel Workman Other [employer] Other 07-30-2022 10:10-0400Body amyabd82.52 kgChanel Workman Other [facility] [employer] Other 07-30-2022 10:10-0400Diastolic blood mm[Hg] Chanel Workman Other [facility] [employer] Other 07-30-2022 10:10-0400Respiratory rate20 /minChanel Workman Other [employer] Other 07-30-2022 10:10-3351HtY1% (BldA) [Mass fraction]94 % Chanel Workman Other [facility] [employer] Other 07-30-2022 10:10-0400Systolic blood rtmahcwk746 mm[Hg] Chanel Workman Other [facility] [employer] Other Encounters Encounter DateEncounter [facility] ProviderFacilityStart: 03-17-2025 End: 55-17-3701kmtztwftygZxieg L FoxFacility:[facility]ertart: 03-10-2025 End: 68-71-2533udlqmrwrjdMBNJ ENcility:[facility] Hospitaltart: 03-09-2025 End: 28-19-9326yqyfokeqifHUYO GUSTAFSONcility:[facility] Hospitaltart: 03-09-2025 End: 35-00-7974bkvyosfzkcVZQV GUSTAFSONcility:[facility] Hospitaltart: 02-17-2025 End: 11-35-2693Lcjifctessy Arce MD Work Phone: [facility] NEUROLOGYStart: 02-17-2025 End: 86-07-0139Buasgb Phillip Arce MD Work Phone: [facility] NEUROLOGYStart: 02-17-2025 End: 34-33-4994etcxfvrrpcXUHSFXL W BAUERNOMS HealthcareComment on above: Trochanteric bursitis of both hips (Primary Dx); Other nerve root and plexus disordersStart: 01-18-2025 End: 26-23-4596Oziwbddzj encounterHeather Fred KARIMI Work Phone: NeurologyComment on above:Forms (c9)Start: 01-12-2025 End: 14-72-2063ljwmgfnfwcGSAE [facility] Centertart: 01-04-2025 End: 34-65-5816vmevjaxjgwKPNMX A. JOUBRANHolzer Health System Start: 12-31-2024 End: 49-04-0050Hsqlennuz Result EncounterJosh Ochoa MD Work Phone: [facility] External Department UnsolicitedStart: 12-31-2024 End: 77-27-4463Mkrlrxwsa Result EncounterJosh Ochoa MD Work Phone: [facility] External Department UnsolicitedStart: 12-23-2024 End: 38-16-4947Kbcqxs Phillip Arce MD Work Phone: [facility] NEUROLOGYStart: 12-23-2024 End: 20-35-2260Pyypss Phillip Arce MD Work Phone: noms NEUROLOGYStart: 12-23-2024 End: 05-83-1283Napxhaig SupportOlu Arce MD Work Phone: noMS [place] NeurologyComment on above:Trochanteric bursitis of both hips (Primary Dx); Radiculopathy, cervical region; Lumbar spondylosis; Cervical spondylosis; Other nerve root and plexus disorders; Nerve root and plexus disorder, unspecifiedStart: 12-04-2024 End: 09-39-6214HkqonkPxsy Naderer MD Work Phone: noms CW FMComment on above:Type 2 diabetes mellitus with polyneuropathy (HCC); Generalized anxiety disorderIntractable chronic migraine without aura and without status migrainosus (Primary Dx); Chronic daily headacheStart: 11-10-2024 End: 77-83-9385OxfjakFlhjcks W Bauer MD Work Phone: noms SWS NEURComment on above:Lumbar spondylosis; Cervical spondylosis; Other nerve root and plexus disordersStart: 11-05-2024 End: 39-34-1386upjcynmfghHdnlf L FoxFacility:[facility] Centertart: 10-22-2024 End: 61-19-1224Otipfv Phillip Arce MD Work Phone: noms NEUROLOGYStart: 10-22-2024 End: 87-53-7369Vqluot Phillip Arce MD Work Phone: noms BM NEUROLOGYStart: 10-22-2024 End: 51-58-9479Lnofkebg SupportOlu Arce MD Work Phone: noms SWS NEURComment on above:Trochanteric bursitis of both hips (Primary Dx); Nerve root and plexus disorder, unspecifiedStart: 10-12-2024 End: 45-75-6097Rtdgrj flowsheetJosh Ochoa MD Work Phone: NOMS CWM FMStart: 10-12-2024 End: 69-24-4311Ykwqqc flowsheetJosh Ochoa MD Work Phone: noms CWM FMStart: 10-12-2024 End: 95-50-9304Cjmkfu outpatient visit 25 minutesJosh Ochoa MD Work Phone: noms CWM FMComment on above:Type 2 diabetes mellitus with hyperglycemia, with long-term current use of insulin (CMS/HCC) (Primary Dx); Benign essential HTN (CMS/HCC); ADD (attention deficit disorder) without hyperactivity; MDD (major depressive disorder), recurrent episode, mild (HCC) (CMS/HCC); Generalized anxiety disorder (CMS/HCC); Type 2 diabetes mellitus with polyneuropathy (CMS/HCC); Acute non-recurrent pansinusitisStart: 10-12-2024 End: 09-42-5213Shufda WorkErkhalida Jackson [facility] Work Phone: noms SWS BHComment on above:Major depressive disorder, single episode, severe without psychotic features (HCC) (CMS/HCC); Generalized anxiety disorder (CMS/HCC)Start: 10-09-2024 End: 79-18-5275TgljbbQkaq Naderer MD Work Phone: noms CWM FMComment on above:Generalized anxiety disorder (CMS/HCC)Start: 10-08-2024 End: 86-53-1262Hylvhlync Result EncounterGeneric External Data ProviderNOMS External Department UnsolicitedStart: 10-08-2024 End: 33-77-3578Wzdrrmfzt Result EncounterGeneric External Data ProviderNOMS External Department UnsolicitedStart: 10-08-2024 End: 40-62-3761bljdxmnopcZBCDU KARETIVail Health Hospitaltart: 10-08-2024 End: 83-85-3624Docimuaogg hospital visit by Esther Billy MD Work Phone: [place] Pain ProceduresComment on above:Lumbosacral spondylosis without myelopathyStart: 10-08-2024 End: 51-71-2062sgybeipyjlBVGBUTustin Rehabilitation Hospitaltart: 10-08-2024 End: 43-09-9313Ssfsbpacsg hospital visit by physicianFabricio Pain Procedure C-Arm [place] Pain ProceduresComment on above:PainStart: 09-22-2024 End: 15-86-7026bocgsdwkktNLWYH [facility]. [facility] Start: 09-16-2024 End: 48-11-7726lnkqqrmlbqJGMHTTustin Rehabilitation Hospitaltart: 09-16-2024 End: 94-47-9489Zzcxfvnudu hospital visit by Esther Billy MD Work Phone: [facility] RadiologyComment on above: Localized osteoarthritis of left shoulderCervical spondylosis without myelopathy; Lumbosacral spondylosis without myelopathyStart: 09-16-2024 End: 84-90-3749Dktjsdjxt Result EncounterGeneric External Data ProviderNOMS External Department UnsolicitedStart: 09-16-2024 End: 84-47-2773Pcorvrpbg Result EncounterGeneric External Data ProviderNOMS External Department UnsolicitedStart: 09-11-2024 End: 66-21-7862vzrczuchtmMNGK A NADERERFacility:[facility] Hospitaltart: 09-11-2024 End: 30-71-8609Twsepsw encounter procedureHeather Fred KARIMI Work Phone: NeurologyComment on above:Intractable chronic migraine without aura and without status migrainosus (Primary Dx); Chronic daily headacheStart: 09-10-2024 End: 51-41-5132Oiveevtessy Arce MD Work Phone: noms NEUROLOGYStart: 09-10-2024 End: 57-79-6056Ifybqnceferino Arce MD Work Phone: noms NEUROLOGYStart: 09-10-2024 End: 77-86-1114Xriziaqg SupportOlu Arce MD Work Phone: noms SWS NEURComment on above:Trochanteric bursitis of both hips (Primary Dx); Lumbar spondylosis; Lumbar radiculopathy; Nerve root and plexus disorder, unspecifiedStart: 09-07-2024 End: 38-02-4213Hhcxmw flowsheetErica L Jackson [facility] Work Phone: NOMS [facility] BHStart: 09-07-2024 End: 95-04-5293Ttmhoz flowsheetErica L Jackson [facility] Work Phone: noms [facility] BHStart: 09-07-2024 End: 59-53-3162Gzslgg WorkErica L Jackson [facility] Work Phone: noms SWS BHComment on above:Major depressive disorder, single episode, severe without psychotic features (HCC) (CMS/HCC); Generalized anxiety disorder (CMS/HCC); Panic disorder (CMS/HCC)Start: 12-23-6947fcsjrplzqjGulnd L FoxFacility:[facility] Centertart: 08-13-2024 End: 77-26-1240Uecfzg WorkErica L Jackson [facility] Work Phone: noms [facility] BHComment on above:Major depressive disorder, single episode, severe without psychotic features (HCC) (CMS/HCC); Generalized anxiety disorder (CMS/HCC)Start: 08-13-2024 End: 63-59-3701Qtjygi flowsheetErica L Jackson [facility] Work Phone: noMS [facility] BHStart: 08-13-2024 End: 48-71-2117Atxrzs flowsheetErica L Jackson [facility] Work Phone: noms [facility] BHStart: 08-12-2024 End: 43-19-3682YvkphnEgrgCarlota Ochoa MD Work Phone: noms CW FMComment on above:Generalized anxiety disorder (CMS/HCC)Start: 08-12-2024 End: 34-54-9918lyzgjxwplkZOIJMFSpecialty Hospital [facility] Start: 08-10-2024 End: 58-56-9642Aoafpp flowsPrimo Ochoa MD Work Phone: noms CWM FMStart: 08-10-2024 End: 23-85-0390Pdfrqu flowsPrimo Ochoa MD Work Phone: noms CWM FMStart: 08-10-2024 End: 80-78-0017Sshwxtu encounter procedureJosh Ochoa MD Work Phone: noms [facility] Work Phone: Start: 08-10-2024 End: 78-48-6778Ulhblt follow up visit related to original Enmanuel Ochoa MD Work Phone: noms CWM FMComment on above:Medicare annual wellness visit, subsequent (Primary Dx); Type 2 diabetes mellitus with hyperglycemia, with long-term current use of insulin (CMS/HCC); Benign essential HTN (CMS/HCC); Dyslipidemia (CMS/HCC); Encounter for long-term (current) use of medications; Abnormal TSH; Other chronic pancreatitis (CMS/HCC)Start: 08-10-2024 End: 36-12-8411mhvjfmchmkLSGX NADERERNot AvailableStart: 07-20-2024 End: 94-26-0310Xeqwcrshm Result EncounterGeneric External Data ProviderNOMS External Department UnsolicitedStart: 07-20-2024 End: 53-64-2893Rahqyahrc Result EncounterGeneric External Data ProviderNOMS External Department UnsolicitedStart: 07-20-2024 End: 09-86-0950rmovshgeluIBE RAMEYNot AvailableStart: 07-16-2024 End: 56-01-1547Ydfyjk Phillip Arce MD Work Phone: noms BM NEUROLOGYStart: 07-16-2024 End: 51-08-1353Tekrmxtsesy Arce MD Work Phone: noms BM NEUROLOGYStart: 07-16-2024 End: 71-73-8702ixwgzahmotKACLOQL W BAUERNot AvailableStart: 07-06-2024 End: 53-47-7766Yenjdn flowsheetErica L Jackson [facility] Work Phone: noMS [facility] BHStart: 07-06-2024 End: 78-61-8374Ihzgqn flowsheetErica L Jackson [facility] Work Phone: noms [facility] BHStart: 07-06-2024 End: 88-57-3824Sdupbf WorkErica L Jackson [facility] Work Phone: noMS [facility] BHComment on above:Major depressive disorder, single episode, severe without psychotic features (HCC) (CMS/HCC); Generalized anxiety disorder (CMS/HCC); Panic disorder (CMS/HCC)Start: 06-29-2024 End: 67-10-8747Zrhqzczvh encounterHeather Fred ALVARADONURSING EDUCATOR Work Phone: NeurologyComment on above:Referral RequestStart: 06-23-2024 End: 49-72-0817zwagmmqcneMDEGB A. JOUBMercy [facility] Start: 06-02-2024 End: 61-13-5236IyvmksNdncdzd W Bauer MD Work Phone: noms [facility] NEURComment on above:Lumbar spondylosis; Cervical spondylosis; Other nerve root and plexus disordersGeneralized anxiety disorder (CMS/HCC); Hyperlipidemia, unspecified (CMS/HCC)Start: 05-18-2024 End: 57-23-8860Unghoj flowsheetErica L Jackson [facility] Work Phone: noms [facility] BHStart: 05-18-2024 End: 56-42-3306Cacqxf flowsheetErica L Jackson [facility] Work Phone: noms [facility] BHStart: 05-18-2024 End: 38-17-6553Mxaljg WorkErica L Jackson [facility] Work Phone: noms [facility] BHComment on above:Major depressive disorder, single episode, severe without psychotic features (HCC) (CMS/HCC); Generalized anxiety disorder (CMS/HCC); Panic disorder (CMS/HCC)Start: 05-11-2024 End: 26-17-5476Hktipz Ana Ochoa MD Work Phone: NOMS CWM FMStart: 05-11-2024 End: 99-29-5206Vnlpdi Ana Ochoa MD Work Phone: NOMS CWM FMStart: 05-11-2024 End: 29-94-9308Xeintr outpatient visit 25 minutesJosh Ochoa MD Work Phone: NOMS CWM FMComment on above:Type 2 diabetes mellitus with hyperglycemia, with long-term current use of insulin (CMS/HCC) (Primary Dx); Benign essential HTN (CMS/HCC); ADD (attention deficit disorder) without hyperactivity; MDD (major depressive disorder), recurrent episode, mild (HCC) (CMS/HCC); Generalized anxiety disorder (CMS/HCC); Type 2 diabetes mellitus with polyneuropathy (CMS/HCC); Other chronic pancreatitis (CMS/HCC); Acute non-recurrent pansinusitisStart: 05-11-2024 End: 33-77-8550ilpgabrlgrQBRO NADERERNot AvailableStart: 04-20-2024 End: 33-06-0741BanfpfZmbmmfx You Reyes NP Work Phone: [facility] PA[address] STATE ROUTEStart: 04-14-2024 End: 65-17-2780Mgtyrdl encounter Eryn Lua PA-C Work Phone: NeurologyComment on above:Status migrainosus (Primary Dx)Start: 04-14-2024 End: 56-69-5089emznvcoqijRmaazbhs Main Chair 10 Work Phone: NeurologyComment on above:Status migrainosus (Primary Dx)Start: 04-13-2024 End: 28-36-0421bwqafsidraFxxrusov Main Chair 5 Work Phone: NeurologyComment on above:Status migrainosus (Primary Dx)Start: 04-08-2024 End: 07-55-6062phoeihfoknYvouzotf Main Chair 7 Work Phone: NeurologyComment on above:Status migrainosus (Primary Dx)Start: 04-08-2024 End: 16-81-3752Rjkkopj encounter procedureHeather Fred KARIMI Work Phone: NeurologyComment on above:Intractable chronic migraine without aura and without status migrainosus (Primary Dx); Chronic daily headache; Status migrainosusStart: 04-06-2024 End: 80-23-0462tywohrehlaLTJUK [facility]. [facility] Start: 03-31-2024 End: 88-69-6994TajcaeHqyb Naderer MD Work Phone: noms CWM FMComment on above:Generalized anxiety disorder (CMS/HCC); ADD (attention deficit disorder) without hyperactivityStart: 03-30-2024 End: 64-36-2271Npnucywwu encounterHeather Fred KARIMI Work Phone: NeurologyComment on above:Botox InjectionStart: 03-30-2024 End: 67-05-1445mlyapxsqdpOLOJLUHUFX M GRAZIANINot AvailableStart: 03-30-2024 End: 63-64-3635Tcjt/qhp telephone evaluation 04-01 Tessie Krishnan NP Work Phone: noms [facility] NEURO 210Comment on above:Intractable chronic migraine without aura and without status migrainosus (CMS/HCC) (Primary Dx); Cervical spondylosis; Lumbar spondylosis; Complex regional pain syndrome type 1, affecting unspecified site; Trochanteric bursitis of both hipsStart: 03-25-2024 End: 59-82-9947Dmhnuhblp encounterOlu Arce MD Work Phone: noms [facility] NEURO 210Start: 03-24-2024 End: 48-84-3398Cqcljt flowsChu Jackson [facility] Work Phone: [place] SWS BHStart: 03-24-2024 End: 91-16-1779Lwgqao Terrence Jackson [facility] Work Phone: noMS [facility] BHStart: 03-24-2024 End: 99-75-6435Tsfsxx WorkErkhalida Jackson [facility] Work Phone: noMS [facility] BHComment on above:Major depressive disorder, single episode, severe without psychotic features (HCC) (CMS/HCC); Generalized anxiety disorder (CMS/HCC); Panic disorder (CMS/HCC); Insomnia, unspecified typeStart: 02-26-2024 End: 36-24-4213Avrvkx flowsheetSara Krishnan COURTESY DRIVER Work Phone: noms NEUROLOGYStart: 02-26-2024 End: 42-03-9959Ohhatt flowsheetSara Stafford Hodantao COURTESY DRIVER Work Phone: noms NEUROLOGYStart: 02-26-2024 End: 65-16-5953Mvbwzveq SupportJacdrea Krishnan COURTESY DRIVER Work Phone: noMS [facility] NEURO 210Comment on above:Trochanteric bursitis of both hips (Primary Dx); Cervical paraspinal muscle spasm; Complex regional pain syndrome type 1, affecting unspecified site; Migraine without aura and without status migrainosus, not intractable (CMS/HCC); Lumbar spondylosis; Cervical spondylosis; Other nerve root and plexus disordersStart: 02-17-2024 End: 01-87-4915Xfvkgq Terrence Jackson [facility] Work Phone: noMS [facility] BHStart: 02-17-2024 End: 46-99-7052Taabjt Terrence Jackson [facility] Work Phone: noms [facility] BHStart: 02-17-2024 End: 57-34-9174Azfqfn Mir Jackson [facility] Work Phone: noms [facility] BHComment on above:Major depressive disorder, single episode, severe without psychotic features (HCC) (CMS/HCC); Generalized anxiety disorder (CMS/HCC); Panic disorder (CMS/HCC)Start: 02-07-2024 End: 82-81-9780Kgnrintri Result EncounterGeneric External Data ProviderNOMS External Department UnsolicitedStart: 02-07-2024 End: 30-38-1267Yllpsspya Result EncounterGeneric External Data ProviderNOMS External Department UnsolicitedStart: 01-23-2024 End: 65-98-5108Mqsyav flowsChu Jackson [facility] Work Phone: noMS SWS BHStart: 01-23-2024 End: 33-89-4804Nhxmhi flowsheetDc L Jackson [facility] Work Phone: noms SWS BHStart: 01-23-2024 End: 82-04-8237Kmmokh WorkErkhalida Jackson [facility] Work Phone: noms SWS BHComment on above:Major depressive disorder, single episode, severe without psychotic features (HCC) (CMS/HCC); Generalized anxiety disorder (CMS/HCC)Start: 01-22-2024 End: 19-57-8272UcsnpsKuok Naderer MD Work Phone: noms CW FMComment on above:Generalized anxiety disorder (CMS/HCC)Start: 01-08-2024 End: 40-23-6379reyogjtaimTI Marc Naderer Work Phone: [facility] Work Phone: Start: 01-08-2024 End: 18-48-6191Oqvioolj ReferredMD Josh Ochoa Work Phone: [facility]-Dig[facility] Work Phone: Start: 12-26-2023 End: 04-77-7229Qohzco WorkErkhalida Jackson [facility] Work Phone: noms SWS BHComment on above:Major depressive disorder, single episode, severe without psychotic features (HCC) (CMS/HCC); Generalized anxiety disorder (CMS/HCC); Panic disorder (CMS/HCC)Start: 10-24-2023 End: 38-53-0838Wceqqtibr encounterHeather Froimson FORM GRADER.NURSING EDUCATOR Work Phone: NeurologyComment on above:Forms; Bwc (Worker's Comp) C9 Botox formStart: 93-56-1447Qmpehmrmm encounterHeather Froimson FORM GRADER.NURSING EDUCATOR Work Phone: NeurologyComment on above:Patient QuestionStart: 16-96-8245Fmohemewt Result EncounterJosh Ochoa MD Work Phone: NOTG External Department UnsolicitedStart: 06-22-2023 Clinisync Result EncounterJosh Ochoa MD Work Phone: noms External Department UnsolicitedStart: 06-21-2023 RefillJosh Ochoa MD Work Phone: noms CWM FMComment on above:Generalized anxiety disorder (CMS/HCC)Start: 06-20-2023 End: 73-41-6928Tlyfvu outpatient visit 25 minutesJosh Ochoa MD Work Phone: noms CWM FMComment on above:Type 2 diabetes mellitus with hyperglycemia, with long-term current use of insulin (CMS/HCC) (Primary Dx); Benign essential HTN (CMS/HCC); ADD (attention deficit disorder) without hyperactivity; MDD (major depressive disorder), recurrent episode, mild (HCC) (CMS/HCC); Generalized anxiety disorder (CMS/HCC); Mild intermittent asthma without complication (CMS/HCC); Complex regional pain syndrome type 1, affecting unspecified site; Mixed hyperlipidemia (CMS/HCC); 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 (Z79.4)Start: 10-79-3652Tjdvpa flowsPrimo Ochoa MD Work Phone: NOMS CWM FMStart: 78-51-6115Ukpnae flowsPrimo Ochoa MD Work Phone: NOMS CWM FMStart: 06-17-2023 End: 01-58-7894Zkqxtaerx encounterHeather Froimson FORM GRADER.NURSING EDUCATOR Work Phone: NeurologyComment on above:Forms ([facility] forms)Start: 42-66-5813Hshdzbhzs encounterHeather Fred FORM GRADER.NURSING EDUCATOR Work Phone: OtolaryngologyComment on above:AppointmentStart: 01-02-2023 End: 07-72-3864Jsxdvwa encounter procedureHeather Fred FORM GRADER.NURSING EDUCATOR Work Phone: NeurologyComment on above:Intractable chronic migraine without aura and without status migrainosus (Primary Dx); Chronic daily headacheStart: 10-10-2022 End: 20-31-2785Crkryex encounter procedureHeather Fred FORM GRADER.NURSING EDUCATOR Work Phone: NeurologyComment on above:Intractable chronic migraine without aura and without status migrainosus (Primary Dx); Chronic daily headacheStart: 09-06-2022 End: 73-11-0534Rxzfyivvi to same day surgery centerMD Josh Ochoa Work Phone: [facility]-Surgery Center Main CatawbaStart: 09-06-2022 End: 93-41-4957cbkirqqizuIO Marc Naderer Work Phone: [facility] Work Phone: Start: 08-28-2022 End: 23-14-2887vaxjfvlztmLZ BARTOLOME RODRIGUEZFacility:Q1Iidnr: 08-27-2022 End: 13-27-7109ycatayavfoZS Marc Naderer Work Phone: [facility] Work Phone: Start: 08-27-2022 End: 42-95-6520Hhwphgk encounter procedureMD Josh Ochoa Work Phone: [facility]-Pre-Surgical Testing Work Phone: Start: 07-31-4997dxpbnhjluwDI MARC A NADERER Facility:G2Jcluq: 71-66-3915Oticxdkoq for general adult medical examination without abnormal findingsDR JOSH OVALLEOhioHealth Van Wert Hospitaltart: 07-24-2022 End: 36-27-4124wgbwwqycfqWB JOSH HODGESRFacility:S0Gnvyl: 07-24-2022 End: 75-89-7338Yslabnmas for general adult medical examination without abnormal findingsDR JOSH HODGESRFacility:P9Lndtg: 97-76-1040Gzyccgsbd encounterHeather Fred KARIMI Work Phone: OtolaryngologyComment on above:Referral RequestStart: 07-17-2022 End: 11-69-6333Etajvnr encounter procedureHeather Fred SOLORZANO.NURSING EDUCATOR Work Phone: NeurologyComment on above:Intractable chronic migraine without aura and without status migrainosus (Primary Dx)Start: 07-10-2022 End: 56-08-6689ylkdgctfrpLC AVINASH Milligan WESTFacility:H6Smbwb: 06-26-2022 End: 74-22-7538chtmehejcjCY AVINASH Milligan WESTFacility:B1Jfokm: 04-17-2022 End: 74-54-6679Pfglysb encounter procedureHeather Fred ALVARADONURSING EDUCATOR Work Phone: NeurologyComment on above:Intractable chronic migraine without aura and without status migrainosus (Primary Dx)Start: 03-29-2022 End: 70-06-3457mlegdctncvJZ Marc Naderer Work Phone: [facility] Work Phone: Start: 03-29-2022 End: 07-57-1537Nlgfcuf encounter procedureMD Josh Ochoa Work Phone: [facility]-Emergency RoomStart: 03-29-2022 End: 26-33-9105gohmaibeiqJALWN PARKERFacility:B7Tqsjs: 03-28-2022 End: 56-74-1606iaudjlofsaGL JOSH HODGESRFacility:G2Mmywt: 01-09-2022 End: 19-03-5389Tpfcvut encounter procedureHeather Fred KARIMI Work Phone: NeurologyComment on above:Intractable chronic migraine without aura and without status migrainosus (Primary Dx)Start: 12-31-2021 End: 53-86-9122boxqhmdfaeLlmrwr Dymond [facility] [place] [employer] Other Start: 32-15-7930Wbihns outpatient visit 25 minutes Vianney KarinaFPG Urgent Care ClydeStart: 12-13-2021 End: 34-81-7790pxkhfavzlcYG JOSH Laith NADERERFacility:T3Iccfn: 12-09-2021 End: 53-66-8209iiclsxcpgiBzqjf Keller Other [facility] [place] [employer] Other Start: 79-37-2850Tdzpqz outpatient visit 15 minutes Chanel WorkmanFPLis Urgent Care ClydeStart: 11-15-2021 End: 79-31-9176hjeblhnifjMO MEG MARKER .Facility:K8Zyyjw: 09-08-2021 Telephone encounterHeather Fred KARIMI Work Phone: NeurologyComment on above:Referral RequestStart: 01-12-2020 End: 85-90-4383Qwgjhsp encounter procedureNABIL EBRAHEIMFacility:[facility]MCStart: 12-07-2019 End: 76-06-8101Wkfyqrv encounter procedureNABIL EBRAHEIMFacility:UTMCStart: 10-21-2019 End: 59-48-7827Aopwjok encounter procedureNABIL EBRAHEIMFacility:UTMCStart: 02-18-2019 End: 86-28-2892Vzkauoorl department patient visitWALID MAHMOUDFacility:[facility] Procedures DateProcedureProcedure DetailPerforming ClinicianStart: 42-90-6563QZY CBC WITH AUTO DIFFMarc Gabriela WARD Work Phone: Start: 11-06-9891Hakmlwxwcue during operationJessee Billy MD Work Phone: Start: 55-36-5150GTUVKI FOR SURGICAL PROCEDURESGeneric External Data ProviderStart: 28-46-2236ME CERVICAL SPINE (4-5 VIEWS)Generic External Data ProviderStart: 81-53-5818ZB LUMBAR SPINE (MIN 4 VIEWS)Generic External Data ProviderStart: 02-93-3707OJ SHOULDER LEFT (MIN 2 VIEWS)Generic External Data ProviderStart: 92-89-6842YIN,APTIMA HPV,AGE GDLNAmy Tomy MARGARETTE Work Phone: Start: 32-05-4406Cloxhxwzzoa observation [Identifier] in Cervix by Quinn Ochoa MD Work Phone: Start: 21-04-8555FEJ LIPID PROFILE (FASTING)Generic External Data ProviderStart: 62-99-7078NKL DIRECT LDLGeneric External Data ProviderStart: 00-70-4892NFQ MICROALBUMIN, RAND URJosh Ochoa MD Work Phone: Start: 56-17-0771XEX CBC WITH AUTO DIFFJosh Ochoa MD Work Phone: Start: 70-80-0997VNL HEMOGLOBIN K1TYgdpJosh Ochoa MD Work Phone: Start: 19-09-8489Bksfjzghmda observation [Identifier] in Cervix by Cyto Varsha Arce MD Work Phone: Start: 24-52-1268Pbmldram of cystMD Josh Ochoa Work Phone: Start: 15-43-0898Opiypdg of placement of stent for coronary artery diseaseS/P drug eluting coronary stent placementJosh Ochoa MD Work Phone: Start: 03-88-0705QlfszpyrmewBppd Naderer MD Work Phone: Start: 40-35-5905Wsrjt depression screening assessment Kinga Mendes APRN.CNP Work Phone: Start: 99-38-1977Fgvgjyycapl observation [Identifier] in Cervix by Quinn Ochoa MD Work Phone: Plan of Treatment DateCare ActivityDetailAuthorStart: 01-66-9617Gpnovqscc for malignant neoplasm of cervixNOMS HealthcareStart: 92-59-1239Foxqhlix ScreeningDiabetes Screening [facility] Hospitaltart: 86-25-7472Xhmtqooza for malignant neoplasm of cervixPap SmearNOMS HealthcareStart: 53-33-1128Inxjifhh ScreeningDiabetes Screening [facility] Hospitaltart: 39-66-3572Eugtkdwu ScreeningDiabetes ScreeningCleveland Clinic Fairview Hospitaltart: 02-66-0043Ezcnf screening for proteinDiabetes: Urine Protein ScreeningBRIGHAM CITY [facility] HealthcareStart: 17-50-1885UFLIDBOQ SCREENDIABETES SCREENCleveland Clinic Fairview Hospitaltart: 32-74-0358Jowqhipc ScreeningDiabetes ScreeningJoint [facility] District [facility] Start: 03-31-2026Medicare Annual Wellness (AWV)Medicare Annual Wellness (AWV) [facility] HealthcareStart: 07-26-2025 End: 41-47-7401Nbvcqom encounter procedureNOMS BCP OBStart: 03-10-2026Medicare Annual Wellness (AWV)Medicare Annual Wellness (AWV)[facility] HealthcareStart: 87-18-8631Wtqwaoqte for malignant neoplasm of cervixNOMS HealthcareStart: 04-14-2025 End: 33-26-5968Ittjncsr Vshesti2804/14/2025 8:00 AM EST Clinical Support [facility] [address] [facility] [address] [place] [address] Olu Arce MD [address] [facility] [address] [address] [facility] NeurologyStart: 04-13-2025 End: 76-94-2288Ztwgrnu encounter /02/2025 9:00 AM EST Office Visit [facility] [address] [place] [id number] Josh Ochoa MD [address] [place] [phone] NOMRoberto PASCUAL FMStart: 37-36-5623Tubzlirs screeningDiabetes: Retinopathy ScreeningNOMS HealthcareStart: 03-03-2025 End: 66-11-8615Aevlags encounter qbfmbzldo08/22/2025 11:30 AM EDT Office Visit Neurology [id number] [address] [place] [address] Kinga Mendes APRN.NURSING EDUCATOR [address] [place] [address] 12 week botoxNeurologyComment on above:12 week botoxStart: 02-17-2025 End: 29-37-7842Zkproife SupportNONH [place] NeurologyComment on above:Arrived Start: 76-87-1586Qydnwobar vaccinationBRIGHAM CITY COMMUNITY [facility]OSPITAL HealthcareStart: 12-23-2024 End: 66-58-8047Kppsqmkl SupportNONH SWS NEURComment on above:ArrivedStart: 31-08-3865Dyytdlxvjp A1c measurementDiabetes: Hemoglobin D0IRGKKJefferson Memorial Hospital Start: 71-71-1414Tidntuvva vaccinationFlu vaccine (Season Ended)[facility] HospitalStart: 12-04-2024 End: 27-03-9132Ioxwrjb encounter wbwlhlwre73/25/2025 9:00 AM EDT Office Visit Neurology [address] [facility] [address] [place] [address] Kinga Mendes APRN.NURSING EDUCATOR [address] [place] [address] BOTOXNeurologyComment on above:BOTOXStart: 11-16-2024 End: 04-66-0350Moooqv Work11/16/2024 10:00 AM EDT Social Work [facility] [address] [place] [address] Dc Jackson, [facility] [address] [place] [address] [facility]S [facility] BHStart: 10-22-2024 End: 44-36-5264Bxgufezv SupportNOMS SWS NEURComment on above:ArrivedStart: 10-12-2024 End: 80-53-9470Oxkphha encounter procedureNOMS CWM FMComment on above:Arrived Start: 09-10-2024 End: 13-10-5585Khotfcvm SupportNOMS [facility] NEURComment on above:ArrivedStart: 09-07-2024 End: 03-95-3071Bvcmxu Work09/07/2024 10:00 AM EDT Social Work [facility] [address] [place] [address] Dc Jackson, [facility] [address] [place] [address] [facility]ITALStart: 37-70-5387Lhpsxndx vaccine (1 of 2)Shingles vaccine (1 of 2)[facility] CenterStart: 68-07-8430Iwbtaofa Vaccine (1 of 2)Shingrix Vaccine (1 of 2)[facility]tart: 53-87-9237Ivkoiizvk for malignant neoplasm of breastBreast cancer screenBon [facility] HospitalStart: 08-13-2024 End: 05-31-1180Yafetw Work08/13/2024 3:00 PM EDT Social Work [facility] [address] [place] [address] Dc Jackson, [facility] [address] [place] [address] [facility]Start: 50-58-0067Oljmnmmnfb A1c measurementDiabetes: Hemoglobin J6IHMIN HealthcareStart: 08-10-2024 End: 72-38-9103Pvpyj metabolic 1998 panel - Serum or PlasmaBasic metabolic panel Lab Routine Encounter for long-term (current) use of medications Expected: (Approximate), Expires: 08/10/2025NOMS HealthcareComment on above: Expected: 08/10/2024 (Approximate), Expires: 08/10/2025Start: 08-10-2024 End: 18-05-9129ESV W Auto Differential panel - BloodCBC and differential Lab Routine Encounter for long-term (current) use of medications Expected: 07/13 (Approximate), Expires: 08/10/2025[facility] HealthcareComment on above: Expected: 08/10/2024 (Approximate), Expires: 08/10/2025Start: 08-10-2024 End: 94-95-8869Rdnztlajhe A1c/Hemoglobin.total in BloodHemoglobin A1c Lab Routine Type 2 diabetes mellitus with hyperglycemia, with long-term current use of insulin ([facility]) Expected: 08/10/2024 (Approximate), Expires: 08/10/2025[facility] HealthcareComment on above:Expected: 08/10/2024 (Approximate), Expires: 08/10/2025Start: 08-10-2024 End: 04-89-5910Zsivnzd function 2000 panel - Serum or PlasmaHepatic function panel Lab Routine Encounter for long-term (current) use of medications Expected: 08/10/2024 (Approximate), Expires: 08/10/2025[facility] HealthcareComment on above: Expected: 08/10/2024 (Approximate), Expires: 08/10/2025Start: 08-10-2024 End: 02-24-7061Hdbdv 1996 panel - Serum or PlasmaLipid panel Lab Routine Dyslipidemia ([facility]) Expected: 08/10/2024 (Approximate), Expires: 08/10/2025 N[facility]S HealthcareComment on above:Expected: 08/10/2024 (Approximate), Expires: 08/10/2025Start: 08-10-2024 End: 28-38-8061Mqdfbrpibwjm/Creatinine panel in random UrineMicroalbumin / creatinine, urine ratio Lab Routine Type 2 diabetes mellitus with hyperglycemia, with long-term current use of insulin ([facility]) Expected: 08/10/2024 (Approximate), Expires: 08/10/2025[facility] Healthcare Work Phone: Comment on above:Expected: 08/10/2024 (Approximate), Expires: 08/10/2025Start: 08-10-2024 End: 61-96-0569Gxxlzundsur [Units/volume] in Serum or PlasmaTSH Lab Routine Abnormal TSH Expected: 08/10/2024 (Approximate), Expires: 08/10/2025NOMS HealthcareComment on above:Expected: 08/10/2024 (Approximate), Expires: 08/10/2025Start: 08-10-2024 End: 88-79-2972Djcssmqmb (T4) free [Mass/volume] in Serum or PlasmaT4, free Lab Routine Abnormal TSH Expected: 08/10/2024 (Approximate), Expires: 08/10/2025NOMS HealthcareComment on above:Expected: 08/10/2024 (Approximate), Expires: 08/10/2025Start: 08-10-2024 End: 00-43-3418Dqzbije encounter procedureNOMS [facility] FMComment on above:Arrived Start: 08-03-2024 End: 36-67-6544Qytzix Work08/03/2024 3:00 PM EDT Social Work [facility] [address] [place] [address] Dc Jackson, [facility] [address] [place] [address] [facility]S [facility] BHStart: 07-20-2024 End: 81-37-0281Kctcrvc encounter hntyczlkd22/10/2025 9:00 AM EDT Office Visit [facility] [address] [place] [address] Jacquelyn Huitron PA [address] [place], [place] [address] N[facility]S BCP OBStart: 07-16-2024 End: 32-91-1573Luyxagmk SupportNOMS [facility] NEURComment on above:ArrivedStart: 93-03-7114Zcwaw screening for proteinDiabetes: Urine Protein ScreeningNONH HealthcareStart: 06-15-2024 End: 89-63-2404Hevswj Work06/15/2024 2:00 PM EST Social Work [facility] [address] [place] [address] Dc Jackson, [facility] [address] [place] [address] [facility]: 06-11-2024 End: 32-26-8490Cittphdl Vmhmvcd6506/11/2024 2:35 PM EST Clinical Support [facility] [address] [place] [address] Sara Krishnan, COURTESY DRIVER [address] [facility] [address] Chen [address] [place] [address] [facility]Start: 06-02-2024 End: 37-51-2880Ohcrlvf encounter qxidixhij78/21/2025 9:00 AM EST Office Visit [facility] [address] [place] [address] Jacquelyn Huitron, PA [address] [place], [place] [address] [facility] OBStart: 05-18-2024 End: 82-33-8363Fgdxrt Work05/18/2024 1:00 PM EST Social Work [facility] [address] [place] [address] Dc Jackson, [facility] [address] [place] [address] [facility]: 05-14-2024 End: 40-89-8408Henmosz encounter gzrefpdgm78/02/2025 9:00 AM EST Office Visit [facility] [address] [place] [address] Jacquelyn Huitron, PA [address] [place], [place] [id number] [facility] OBStart: 45-32-4300Jswswd Wellness Visit (Medicare Advantage)Annual Wellness Visit (Medicare Advantage)Bon [facility] Start: 05-11-2024 End: 36-96-6868Fdoeyaz encounter procedureNOMS CWM FMComment on above:Arrived Start: 04-15-2024 End: 11-45-3506Aerhsmaa Huxylfk2904/15/2024 8:00 AM EST Clinical Support [facility] NEURO [address] [facility] [place] [address] Sara Krishnan COURTESY DRIVER [address] [place] [address] N[facility]S [facility] NEURO 210Start: 04-14-2024 End: 01-86-6476Pccfyj WorkNOMS SWS BHComment on above:Non-DHE #3Infusion Day 3 Start: 67-02-5019Vaukikihv vaccinationInfluenza Vaccine (#1)[facility] Comment on above:Postponed from 01/12/2024 (Other Patient Reasons)Start: 04-08-2024 End: 90-70-4033Hxiiwvn encounter ezoqfpapn50/27/2024 8:30 AM EST Office Visit Neurology [address] [id number] Kinga Mendes APRN.NURSING EDUCATOR [address] [place] [address] BOTOX Q12 weeks authorized er 04/02/2025NeurologyComment on above:BOTOX Q12 weeks authorized er 04/02/2025Start: 03-30-2024 End: 97-10-7455PR infusion less than or equal to 1hrIV infusion less than or equal to 1hr Procedures STAT Intractable chronic migraine without aura and without status migrainosus (CMS/HCC) Expected: 03/30/2024 (Approximate), Expires: 03/30/2025NONH Healthcare Work Phone: Comment on above:Expected: 03/30/2024 (Approximate), Expires: 03/30/2025Start: 03-30-2024 End: 70-79-4248Hfppwqs encounter fnveweceq90/18/2024 8:15 AM EST Office Visit [facility] NEURO [address] [facility] [place] [address] Sara Krishnan, COURTESY DRIVER [address] [facility], [place] [phone] (Work) [facility] NEURO 210Start: 03-24-2024 End: 45-00-0473Whdmsn Work03/24/2024 11:00 AM EST Social Work [facility] [address] [place] [address] Dc Jackson, [facility] [address] [place] [address] [facility]: 03-19-2024 End: 01-62-9522Pfqjvyh encounter erexyzwdj17/07/2024 2:30 PM EST Office Visit [facility] [address] [place] [address] Josh Ochoa MD [address] [place] [address] N[facility]S CWM FMStart: 03-11-2024 End: 23-86-5144Qvpsafc encounter ovlshxqyy65/30/2024 9:30 AM EDT Office Visit Neurology [address] [place] [address] Kinga Mendes APRN.NURSING EDUCATOR [address] [place] [address] BotoxNeurologyComment on above:BotoxStart: 22-53-3608Jlkodzuz screeningDiabetes: Retinopathy ScreeningNOMS HealthcareStart: 02-27-2024 Medicare Annual Wellness (AWV)Medicare Annual Wellness (AWV)[facility] Start: 02-26-2024 End: 84-50-3653Wpbypnhh SupportNOHARRISON [facility] NEURO 210Comment on above:ArrivedStart: 02-17-2024 End: 79-59-0737Kseyzy Work02/17/2024 2:00 PM EDT Social Work [facility] [address] [place] [address] Dc Jackson, [facility] [address] [place] [address] [facility]: 01-28-2024 End: 91-04-8370Lakclhdn Eepvfkg1901/28/2024 9:00 AM EDT Clinical Support [facility] NEURO [address] [facility] [address] [place] [address],[place] [address] Sara Krishnan, COURTESY DRIVER [address] [place] [address], [place] [address] [facility] 210Start: 01-23-2024 End: 45-29-0846Eucaef Work01/23/2024 2:00 PM EDT Social Work [facility] [address] [place] [address] Dc Jackson, [facility] [address] [place] [address] [facility]: 65-97-5521Yxsbi-19 Vaccine ( season)Covid-19 Vaccine ( season)[facility]art: 54-35-4338Lmpdmnisu vaccinationInfluenza Vaccine (#1)NOM HealthcareStart: 85-43-4511Pcxuudrbvc A1c measurementDiabetes: Hemoglobin V2AGKJU HealthcareStart: 97-40-3086Wmznafjtw for malignant neoplasm of breastNOMS HealthcareStart: 08-01-2023 End: 94-36-5100Czpnfqbo Oyioikl2108/01/2023 1:40 PM EDT Clinical Support [facility] NEUR [address] [place] [address] Olu Arce MD [address] [facility] [address] [place] [address], [place] [address] N[facility]S [facility] NEURStart: 07-15-2023 End: 53-52-6311Yjgbzhk encounter wispnoeyf99/04/2024 8:15 AM EST Office Visit [facility] [address] [place] [address] Josh Ochoa MD [address] [place] [address] NOMS CW FMStart: 07-02-2023 End: 87-87-9548Pnafpdk encounter gtikldeoq94/20/2024 12:00 PM EST Office Visit [facility] NEURO [address] [facility] [address] [place] [address], [phone] Sara Krishnan, COURTESY DRIVER [address] [facility] [address] [place] [address], [place] [address] N[facility]S [facility] NEURO 210Start: 07-01-2023 End: 54-73-2183Cxttlg Work07/01/2023 10:00 AM EST Social Work [facility] [address] [place] [address] Dc Jackson, [facility] [address] [place] [address] N[facility]S [facility] BHStart: 06-20-2023 End: 90-96-9112Dfrpbeq encounter rvnjqrfti01/08/2024 2:15 PM EST Office Visit [facility] [address] [place] [address] Josh Ochoa MD [address] [place] [address] [facility] FMComment on above:ArrivedStart: 06-20-2023 End: 47-06-8014Uvntuca, urine, randomAlbumin, urine, random Lab Routine Type 2 diabetes mellitus with hyperglycemia, with long-term current use of insulin ([facility]) Expected: 06/20/2023 (Approximate), Expires: 06/20/2024[facility] Comment on above:Expected: 06/20/2023 (Approximate), Expires: 06/20/2024Start: 06-20-2023 End: 25-13-3963Upeccixfoi A1c measurementHemoglobin A1c Lab Routine Type 2 diabetes mellitus with hyperglycemia, with long-term current use of insulin ([facility]) Expected: 06/20/2023 (Approximate), Expires: 06/20/2024[facility] Work Phone: Comment on above:Expected: 06/20/2023 (Approximate), Expires: 06/20/2024Start: 42-96-2266Rpdnntnuta Health ScreeningBehavioral Health ScreeningCleveland Clinic Fairview Hospitaltart: 99-33-2324Cjdbv-19 Vaccine () Covid-19 Vaccine ()[facility] Hospitaltart: 08-18-2670Uoxktkvnd vaccinationCleveland Clinic Fairview Hospitaltart: 68-53-9152Risim depression screening assessmentDEPRESSION SCREENINGCleveland Clinic [facility]view Hospitaltart: 33-02-0283WzfutigknUniversity Hospitals Health Systemtart: 52-80-7499ZsjbosqaqUniversity Hospitals Health Systemtart: 33-56-3808WZTAVLCQHL ASSESSMENTDEPRESSION ASSESSMENTC[facility] Clinic [facility] Hospitaltart: 89-41-1540Uoijkxgoj vaccinationCleveland Clinic Fairview Hospitaltart: 75-27-4243INNEQNITOI ASSESSMENTDEPRESSION ASSESSMENTCleveland Clinic [facility] Hospitaltart: 19-97-7700HCRAR-19 VACCINE (3 - Booster for Moderna series)COVID-19 VACCINE (3 - Booster for Moderna series)[facility] Hospital[facility]art: 97-38-0396GQWOC-19 VACCINE (3 - Booster for Moderna series)COVID-19 VACCINE (3 - Booster for Moderna series)[facility] Start: 11-17-9361XJGPK-19 VACCINE (3 - Moderna series)COVID-19 VACCINE (3 - Moderna series)[facility] Hospital[facility]art: 07-46-8438JUZGLHWJS (FIT-DNA)COLOGUARD (FIT-DNA)[facility] Hospitaltart: 82-12-3098TmtfepwidzxIWVPQBUHRNKWjhxubgcg Clinic Start: 79-74-4273VSFAFNXLZU CANCER SCREENINGCOLORECTAL CANCER SCREENINGCleveland Clinic Fairview Hospitaltart: 84-39-7011QS COLONOGRAPHYCT COLONOGRAPHYCleveland Clinic Fairview Hospitaltart: 74-31-5320QKHNUGVD SCREENDIABETES SCREENCleveland Clinic Fairview Hospitaltart: 15-52-6891ZTMYK OCCULT BLOODFECAL OCCULT BLOODCleveland Clinic Fairview Hospitaltart: 05-98-8063Jyipn 1996 panel - Serum or PlasmaLipid ScreeningCleveland Clinic Fairview Hospitaltart: 34-35-4253Yegfs panel Lipid ScreeningCleveland Clinic Fairview Hospitaltart: 19-29-5507WBOYT SCREENLIPID SCREEN [facility]tart: 96-84-9000Vuswxrqmu for malignant neoplasm of colon [facility] Hospitaltart: 66-79-3267VAOEBJZQUJDCQYWRLSJQQRUJGDNmosksxsn Clinic Start: 55-01-3007AeasrrhrxjcAmicucbev ClinicStart: 36-04-9596Zvbebviz screen Diabetes screenBon [facility] HospitalStart: 56-02-6947JTB TESTINGHPV TESTING [facility]tart: 07-17-2456Ekzqwcgxm for malignant neoplasm of cervix [facility]tart: 09-79-0712Goiuqdmkcl acid therapyALPHA-1 ANTITRYPSIN DEFICIENCY SCREENINGCleveland Clinic Fairview Hospitaltart: 74-01-7374HOG TESTINGPAP TESTING [facility] Hospitaltart: 36-50-7314Jtyedtpog for malignant neoplasm of cervix [facility] Hospitaltart: 98-15-9402QXhT/Tdap/Td vaccine (1 - Tdap)DTaP/Tdap/Td vaccine (1 - Tdap)Bon [facility] HospitalStart: 07-34-4987Tfmztzbdy B Vaccine (1 of 3 - 19+ 3-dose series)Hepatitis B Vaccine (1 of 3 - 19+ 3-dose series) [facility]tart: 29-04-9578Rbckk microalbumin profileJoint Township District Memorial Hospital Start: 44-57-7060Fkfki screening for proteinDiabetes: Urine Protein Screening [facility] HealthcareStart: 05-07-5271IKZVPZ PCP TEAM CHRONIC DISEASE VISITANNUAL PCP TEAM CHRONIC DISEASE VISITCleveland Clinic Fairview Hospitaltart: 91-56-7175Ekjeasc Screening Anxiety ScreeningCleveland Clinic Fairview Hospitaltart: 32-44-6120Wrwyvkkowx ScreeningDepression ScreeningCleveland Clinic Fairview Hospitaltart: 40-44-5038EZKGEWCWX C SCREENINGHEPATITIS C SCREENINGC[facility] Clinic Fairview Hospitaltart: 45-44-8560Bdepkuycp C screeningJoint Township District Memorial Hospital Start: 57-32-8061AYD SCREENINGHIV SCREENINGC[facility] Clinic [facility] Hospitaltart: 02-04-1143ESG screeningHIV ScreeningC[facility] Clinic [facility]view Hospitaltart: 96-27-7101CSTGPEKXMGTYXPXZGWCT [facility]tart: 58-67-0883XAN screeningHIV screenBon [facility] Start: 59-39-2035Ojpttkhyds ScreenDepression ScreenRiverside Regional Medical Center Start: 18-40-7419Cwjdambl screeningDiabetes: Retinopathy ScreeningBRIGHAM CITY COMM[facility] HealthcareStart: 32-16-4700Aynab panelLipidsRiverside Regional Medical CenterStart: 17-60-5567IOGSIRCQJRAM (1 - PCV)PNEUMOCOCCAL (1 - PCV)[facility] Hospitaltart: 54-18-9352Olnaqftzsfsm vaccinationPneumococcal Vaccine (1 - PCV)[facility] Start: 76-32-2729Tcnshqsijn A1c measurementDiabetes: Hemoglobin F8VHFQFJefferson Memorial HospitalStart: 44-30-0695FAYTEMYTE B (1 of 3 - 3-dose series)HEPATITIS B (1 of 3 - 3-dose series)[facility] Hospitaltart: 43-87-5125Zbxmvugyv B Vaccine (1 of 3 - 3-dose series)Hepatitis B Vaccine (1 of 3 - 3-dose series)[facility] Start: 09-17-7041Nmpzyhzvu for malignant neoplasm of lungLung Cancer Screening Shared Decision MakingJefferson Memorial Hospital End: 22-12-0807Rsb dx/ther agt pvrt facet jt lmbr/sac 1 levelINJ DX/THER AGNT PARAVERT FACET JOINT, LUMBAR/SAC, 1ST LEVEL Procedures Routine Lumbosacral spondylosis without myelopathy 1 Occurrences starting 10/08/2024 until 5[facility] HealthComment on above:1 Occurrences starting 10/08/2024 until 10/08/2024Patient EducationLipomaThe Surgical Hospital At [facility]woods Ctr Work Phone: Patient referralThe Surgical Hospital At Southwoods [facility]tr Work Phone: End: 43-01-6852OS Cervical spine 4 or 5 ViewsBon Secours GlobalTranzy HealthComment on above:1 Occurrences starting 09/16/2024 until 09/16/2024 End: 82-16-6556OY Lumbar spine 4 ViewsBon Secours GlobalTranzy HealthComment on above:1 Occurrences starting 09/16/2024 until 09/16/2024 End: 41-05-0466MY Shoulder - left 2 ViewsBon Secours GlobalTranzy HealthComment on above:1 Occurrences starting 09/16/2024 until 09/16/2024[facility] Immunizations Immunization DateImmunizationNotesCare IwnpaphyPxcmzhuf49-05-8674Ickpzlbfsjpf Conjugate PCV 20Erica [facility] Work Phone: [facility] HospitalReombiluff60-30-3312VUFD-NPE-7 (COVID-19) vaccine, mRNA, spike protein, LNP, PF, 50 mcg/0.5 mLDc [facility] Work Phone: [facility] HospitalYlcxqijiby33-27-4828Hewsuhsd, quadrivalent, recombinant, injectable influenza vaccine, preservative freeDc [facility] Work Phone: [facility] HospitalJgzokfdnri61-05-5704rjzyxgtnv virus vaccine, unspecified formulationDc [facility] Work Phone: [facility] HospitalSbhlfzxasx75-54-0044CIOXV-04 mRNA-1273 (Neal) MD Josh Ochoa Work Phone: [facility]06-22-2021COVID-19 mRNA-1272 (Neal)MD Josh Ochoa Work Phone: [facility] Payers DatePayer CategoryPayerPolicy [id number] [id number] 2023Medicaid [id number] 2023Medicare (Managed Care) [employer] MEDICARE [id number] [id number]974-28-9542Maaddzw Health Insurance [id number] 2020Medicare [id number] MMO SUPERMED PLUS [id number] 2018-Present [phone] [address] [place] [address] O [id number]8-2781Gomoxltawy (not Medicare or Medicaid)[facility] Member Subscriber Plan / Payer (Effective 2016-Present) Name: Jacquelyn Zeng Relation to Subscriber: Self Name: Jacquelyn Zeng PayerID: Not on file Group ID: Not on file Type: MARIUSZO Address: [address] [facility], [address] [id number] 56-54-4785Njlglov1.2.840.036342.1.13.159.2.7.3.375977.22214-08-4899Dtlfsim [id number] 2.0.1.808891.3.579.2. [id number] 2.840.1.078333.3.57[id number] 2.0.1.028367.3.57[id number] 2.840.1.738207.3.57[id number] 2.840.1.157147.3.579.2.69193-03-2916Llwkyzs9815891 2.840.1.664319.3.579.2.71724-59-1303Udoyggi4417921 2.840.1.495169.3.579.2.09092-34-6948Dzfbbly6666346 2.840.1.949269.3.579.2.41287-12-6582Yxpwwwe2689140 2.840.1.422102.3.579.2.03014-08-4109Pfeskqe5735258 2.16840.1.210326.3.579.2.39198-55-2559Vegbtuq0510420 2.16840.1.148833.3.579.2.09935-47-4930Spayboy2633629 2.0.1.302659.3.579.2.56795-42-6195Uyvvjez6723783 2.840.1.555459.3.579.2.20755-29-5418Gufpzei380540242 2.0.1.205484.3.579.2.85771-55-8277Pthmwlu282433744 2.0.1.754504.3.579.2.21432-64-5039Wxkxeti062907413 2..1.014748.3.579.2.08221-44-8693Jonxbqq496111285 2..1.922233.3.579.2.83183-88-7190Ufdicdm98095874 2..1.771613.3.579.2.279142-82-6753Utbavqu28724340 2..1.624442.3.579.2.987957-69-2931Ukajsjl66719027 2..1.259097.3.579.2.147113-50-0663Fkaswct8098355 2..1.890176.3.579.2.988955-60-4789Rttjrir1846882 2..1.840937.3.579.2.789311-75-4397Urgzlaf6897013 2..1.741780.3.579.2.991080-31-6232Cndjzqz1562870 2..1.970127.3.579.2.044959-37-7253Yikinbk9783890 2.0.1.369934.3.579.2.713293-61-7792Vtwvolq1572521 2.0.1.472619.3.579.2.339292-10-9950Klrawsg1358885 2.0.1.567173.3.579.2.695862-35-1333Skdzreh6939116 2.0.1.562998.3.579.2.819009-30-6695Pxtafkv2222835 2.0.1.303810.3.579.2.350324-25-7748Olkviql2601744 2.0.1.284973.3.579.2.099897-92-0213Atscxsz5300158 2..1.819897.3.579.2.708587-40-0472Ffjrati3695100 2..1.481718.3.579.2.110556-21-2575Mtnfesv4576325 2..1.796327.3.579.2.077346-43-2857Sykxauv6436076 2..1.012603.3.579.2.279213-89-5982Whifpwe83453869 2..1.439232.3.579.2.33313-10-7671Dhsgipw80386093 2..1.710754.3.579.2.25076-40-8677Vfezdoq76828776 2..1.600781.3.579.2.718 [id number] [id number]'s [id number] Health InsuranceAetna Insurance [id number] Social History DateTypeDetailFacilityStart: 08-01-2016 End: 32-90-3248Nulcjbc smoking status NHISSmokes tobacco dailyJoint [facility] District [facility] Hospital Start: 08-01-2016 End: 17-58-4427Hgmoptffgv smoked current (pack per day) - Djvnkkoo8Aipaulavt ClinicStart: 08-01-2016 End: 75-93-7560Drzsyxw use and exposureUser of smokeless tobaccoJoint Township District Memorial Hospital Start: 09-07-2021 End: 00-66-9098Teifeks intakeCurrent non-drinker of alcohol (finding)[facility]: 43-48-8294Qqi Assigned At BirthNot on fileCleveland Clinic Fairview Hospitaltart: 08-28-2021 End: 98-07-7484Gavkayzv to SARS-CoV-2 (event)Not sureCleveland Clinic Fairview Hospitaltart: 01-02-2023 End: 18-09-1003Zgs [facility] 07-[facility]1999 End: 90-54-0980Wrryift of tobacco useCigarette SmokerJoint Township District Memorial Hospital Work Phone: start: 07-28-1999 End: 76-74-2915Rvspjuf smoking status NHISSmoker (finding)[facility]: 16-44-4804Fph Assigned At BirthFeMercy Health St[facility] Hospitaltart: 08-27-2022 End: 94-58-6233Vuskera smoking status NHISEx-smoker (finding)[facility]: 93-81-9789Ztyne Depression Screening Psjjyrxwac7Gxuyeiqxd ClinicStart: 06-17-2023 End: 23-09-6972Khonsyp use and exposureSmokeless tobacco non-userN[facility] Healthcare Start: 06-17-2023 End: 62-81-4675Uuxxegj intakeLifetime non-drinker (finding)[facility] HealthcareStart: 11-15-9789Aunkxvo Commentcaffeine intake: maybe 1 coffee or pop cups per day [facility] HealthcareStart: 28-62-8852Obethqx smoking status NHISNever smoked tobacco [facility]Start: 24-23-9817AxhCymazi (finding)[facility] Medical Equipment Procedure CodeEquipment CodeEquipment Original TextEquipment IdentifierDates [id number], [id number], [id number], [id number]: 10-09-2019 End: 50-83-2241Xbablvf on above:use test strip to test BLOOD SUGAR FOUR TIMES DAILYuse with insulin FOUR TIMES DAILY Goals DatePatient GoalDesired Activity/State Clinical Notes 04-24-2005 to 03-10-2025 Note Date & SobxDchcVdfjtggw31-08-9043 NoteHNO ID: [id number] Author: JAVI GREENWOOD APRN.MICHELLE Service: ? Author Type: Nurse Practitioner Type: Progress Notes Filed: 03/10/2025 11:26 Note Text: Pt unable to keep food or water down, requested IV fluids No heart failure hx or renal complications. Will add 1,000 ml fluid bolus today. Javi Greenwood APRN.MICHELLEThe [facility] Hospital [facility]10-29-2025 NoteHNO ID: [id number] Author: OTONIEL HOOKER RN Service: ? Author Type: Registered Nurse Type: Progress Notes Filed: 03/10/2025 11:26 Note Text: Jacquelyn arrived to the infusion suite rating her headache pain 6/10 with moderate nausea and no dizziness. She was educated on medications to be administered per therapy plan and verbally agreed to proceed with infusions. Pediatric Nephrologist confirmed (sister). PRN Zofran administered for nausea, PRN compazine administered for nausea, Prn benadryl administered to promote sleep (per pt request). She rated her headache pain 2/10 with no nausea/ dizziness upon discharge. 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 Author Type: Registered Nurse Type: Progress Notes Filed: 03/09/2025 15:57 Note Text: Jacquelyn arrived to the infusion suite rating her headache pain 9/10 with severe nausea and moderate dizziness. She was medicated with PRN Zofran for nausea, PRN benadryl to help her sleep ( per patient request), and PRN compazine for nausea. Patient has a note that she has had prior intolerance to compazine due to symptoms of akathisia. Patient would like to add compazine to therapy plan, indicating they have tolerated this in the past, especially alongside prn benadryl for akathisia. Provider of the day notified, agreeable to plan to try compazine during today's infusion. Patient tolerated infusion well without adverse side effects, rated headache pain 6/10 upon discharge without nausea/ dizziness. [place] [facility] transit bus driver [facility]10-28-2025 NoteHNO ID: [id number] Author: TAWANA GATICA PA-C Service: ? Author Type: Physician Wrong Address Clerk Type: Progress Notes Filed: 03/09/2025 12:08 Note Text: Headache Center - Follow up Virtual Visit Patient's headache clinic evaluation was scheduled as a virtual visit using the following platform: ZOOM Their location was confirm as [place]. I have communicated my name and active licensure. The patient's identity and physical location were verified at the time of this visit. Either the patient or their legal electronics parts sales representative has been informed of the risks and benefits of -- and alternatives to -- treatment through a remote evaluation and consents to proceed with the evaluation remotely. Based on this evaluation it may be necessary for them to schedule a follow up evaluation with me or other neurologists for formal physical examination and if necessary,other studies. Accompanied by: Self Chief Complaint: Migraine PMH: PAST MEDICAL HISTORY Diagnosis Date Asthma (HCC) Chronic pancreatitis (HCC) Colloid cyst of brain (HCC) Diabetes (HCC) Gastroparesis High cholesterol Hypertension PRN meds for elevation in BP with severe pain - may take lisinopril 1-2x/month PSH: PAST SURGICAL HISTORY Procedure Laterality Date CHOLECYSTECTOMY 1998 PAST SURGICAL HISTORY OF uterine ablation PAST SURGICAL HISTORY OF Bilateral carpal tunnel surgery CURRENT MEDS: Current Outpatient Medications Medication Sig dihydroergotamine (DHE) 1 mg/mL injection Inject 1 mg subcutaneously every 8 hours. As needed for migraine. No more than 2 injections/day or treating 2 injections per day. MOUNJARO 2.5 mg/0.5 mL pen injector Inject 5 mg subcutaneously. prochlorperazine (COMPAZINE) 25 mg suppository 1 Suppository by RECTAL route every 8 hours as needed for nausea/vomiting. Atomoxetine 80 mg capsule Take 1 capsule by mouth once daily. rosuvastatin (CRESTOR) 40 mg tablet Take 40 mg by mouth. acetaminophen 300 mg-caffeine 40 mg-butalbital 50 mg (FIORICET) per capsule Take 1 capsule by mouth every 6 hours as needed. clopidogrel (PLAVIX) 75 mg tablet cyclobenzaprine (FLEXERIL) 5 mg tablet FARXIGA 10 mg tablet estradiol (ESTRACE) 1 mg tablet TAKE 1 TABLET BY MOUTH DAILY FOR 14 DAYS then TAKE 1 TABLET BY MOUTH twice a week Fenofibrate (LOFIBRA) 160 mg tablet glipiZIDE (GLUCOTROL) 10 mg tablet metoprolol succinate ER (TOPROL XL) 25 mg 24 hr tablet nystatin (MYCOSTATIN) powder APPLY 1 application TO THE AFFECTED AREA(S) THREE TIMES DAILY QULIPTA 60 mg tablet furosemide (LASIX) 40 mg tablet Take 40 mg by mouth once daily. insulin aspart U-100 (NOVOLOG) 100 unit/mL Inject subcutaneously. keTORolac (TORADOL) 30 mg/mL (1 mL) soln INJECT 1mL TWICE DAILY NEEDED Pregabalin (LYRICA) 200 mg capsule pregabalin 200 mg capsule TAKE 1 CAPSULE BY MOUTH THREE TIMES DAILY tiZANidine (ZANAFLEX) 4 mg tablet Take 4 mg by mouth every 6 hours as needed. OTC NUTRITIONAL SUPPLEMENT Patient uses medical marijuana, gummies,powder. Alpha Lipoic Acid 600 mg cap Take 1 capsule by mouth once daily. ammonium lactate (LAC-HYDRIN) 12 % lotion ammonium lactate 12 % lotion ONETOUCH ULTRA BLUE TEST STRIP test strip use test strip to test BLOOD SUGAR FOUR TIMES DAILY calcium carbonate (CALTRATE) 600 mg calcium (1,500 mg) tab Take 600 mg by mouth. cholecalciferol (VITAMIN D3) 50 mcg (2,000 unit) tablet Take 1 tablet by mouth once daily. hydrOXYzine HCl (ATARAX) 50 mg tablet Take 50 mg by mouth four times daily as needed. magnesium oxide (MAG-OX) 400 mg (241.3 mg magnesium) tablet Take 1 tablet by mouth once daily. meclizine (ANTIVERT) 25 mg tab Take 25 mg by mouth four times daily as needed. prochlorperazine (COMPAZINE) 10 mg tablet Take 10 mg by mouth every 6 hours as needed. venlafaxine ER (EFFEXOR XR) 150 mg 24 hr capsule Take 225 mg by mouth once daily. metFORMIN (GLUCOPHAGE) 1,000 mg tablet Take 1,000 mg by mouth twice daily with meals. ALPRAZolam (XANAX) 0.5 mg tablet 1 mg. EXEL SYRINGE 3 ML 25 X 5/8 use with DHE Current Facility-Administered Medications Medication Dose Route Frequency onabotulinum toxin type A 200 Units injection (BOTOX) 200 Units INTRAMUSCULAR every 12 weeks ALLERGIES: ALLERGIES Allergen Reactions Desonide Other: See Comments patient unaware but hx of TBI so she may not recall Latex Anaphylaxis, Itching Ciprofloxacin Unknown Codeine Hives Compazine [Prochlor* Intolerance Restless Erythromycin Hives Latex Itching Penicillin V Hives Sulfa (Sulfonamide * Hives FMH: No family history on file. SOCIAL: SOCIAL HISTORY[1] HAMIDA 12/04/2024 with Padyd Mendes CNP for Botox. Assessment and plan from last visit: Current Preventive: PREEMPT Botox Current Abortive: fioricet, compazine, toradol, DHE Miscellaneous Patient Concerns: She is back on track with botox - only had 4 severe headaches. Still has a daily headaches, but only 4 in the last 12 weeks required t (more content not included)...[facility]10-08-2025 History of Present illness Narrative* Olu Arce MD - 02/17/2025 8:00 AM EDT Images from the original note were not included. Subjective Jacquelyn Zeng is a 49 y.o. female who presents for brachial and bursa pain History of Present Illness The patient presents for evaluation of back pain. She reports experiencing pain in her entire back, with the right side being more severe than the left. The pain intensifies when she remains seated for extended periods. She has been using a stand-upwalker for mobility, which was recently authorized and is expected to arrive by Saturday. She has previously consulted with Dr. Aragon, who recommended the continued use of marijuana as he did not prescribe any medication. He also suggested a series of five injections, but she declined due to financial constraints. She has [facility]. MEDICATIONS CURRENT MEDS: Miralax Review of Systems Constitutional: Negative for chills, diaphoresis, fatigue and fever. HENT: Negative for ear pain, tinnitus and trouble swallowing. Eyes: Negative for photophobia and visual disturbance. Respiratory: Negative for cough and shortness of breath. Cardiovascular: Negative for palpitations and leg swelling. Gastrointestinal: Negative for abdominal pain and nausea. Genitourinary: Negative for difficulty urinating and urgency. Musculoskeletal: Negative for arthralgias, back pain, myalgias, neck pain and neck stiffness. Neurological: Negative for tremors, weakness, light-headedness and numbness. Psychiatric/Behavioral: Negative for agitation, confusion and suicidal ideas. Objective There were no vitals taken for [...] equal, round, and reactive to light and accommodation,both directly and consensually. Visual jean were full by confrontation. There was no [...] in all four extremities, including at least awnings mechanic, finger abductors, biceps, triceps, deltoid, toe flexors [...] and spasticity are not evident. Arm swing isnormal. Toe, heel, and tandem walking are performed without difficulty. Musculoskeletal: Trigger-point tenderness was absent. There is no spasm of the trapezii or paraspinals. Results Bursa Injection After explaining the risks, complications, and benefits of the procedure, the patient leaned over the exam table. Allergies were reviewed, the consent was signed. After palpating the bilateralgreatertrochanter and identifying the most tender area in the bursa, using sterile technique, and surface anesthetic; a 25 gauge 1 1/2 spinal needle was advanced to make contact with the greater trochanter. The needle was then withdrawn about 1 mm. The patient received an injection of 1cc lidocaine 2% and1 cc Dexamethasone 4mg in a fan-like distribution. The needle was removed. A Band-Aid dressing wasapplied on the injection site.The Procedure was done by Dr. lOu Arce. Brachial Plexus injection After explaining the risks, complications, and benefits of the procedure, the patient was seated inthe chair. Allergies were reviewed, the consent was signed. The bilateral region posterior to the clavicle is identified and the most tender area is marked for injection then cleaned using sterile technique, and surface anesthetic; a 30 gauge 1/2 spinal needle was advanced and the patient received 1 cc of Lidocaine 2% and 1 cc Dexamethasone 4mg. The needle was removed. The patient tolerated theprocedure well and without complications. A Band-Aid dressing was applied on the injection site. The Procedure was done by Dr. Olu Arce. This note was scribed by Cm Henriquez(R) acting under the direction of Olu Arce MD. Thecontent has been reviewed and confirmed for accuracy by Olu Arce MD Assessment & Plan 1. Back pain. She reports persistent back pain, with the right side being worse. The pain is exacerbated by prolonged sitting. She has been using a stand-up walker for mobility, which was recently authorized and is expected to arrive by Saturday. A referral will be made to Dr. Hays for further evaluation and management of her back pain. This clinical note was created utilizing [employer] documentation system. All information has beenthoroughly reviewed, corrected as necessary, and authenticated by the provider to ensure accuracy and completeness. On occasion, [employer] documentation system erroneously drops words or replaces aspoken word with a similar sounding word. Please notify with any questions or concerns regarding this clinical note. documented in this encounterJefferson Memorial HospitalDtxgdczybe28-18-3013 Telephone encounter Note* Telephone Encounter - Anne-Marie Mensah - 01/18/2025 4:45 PM EDT Received completed form in person Uploaded form into patients scanned docs and faxed to [facility] Pre-Access -[phone] [facility]09-08-2025 Miscellaneous Notes* Telephone Encounter - Anne-Marie Mensah - 01/18/2025 4:45 PM EDT Received completed form in person Uploaded form into patients scanned docs and faxed to [facility] Pre-Access -[phone] documented in this encounterJoint Township District Memorial Hospital09-02-2025 NoteUT Electrophysiology Consult Note [place] [facility] Reason for visit: Afib HPI: Jacquelyn [...] Use: Not At Risk (05/18/2019) Received from [employer] AUDIT-C Frequency of Alcohol Consumption: Never Average Number of Drinks: Not on file Frequency of Binge Drinking: Not on file Financial Resource Strain: Not on file Food Insecurity: No Food Insecurity (11/14/2022) Received from [employer] Hunger Screening Within the past 12 months [...] on file Intimate Partner Violence: Unknown (07/04/2023) [place] Safety & Environment Fear of Current or Ex-Partner: Not on file Emotionally Abused: Not on file Physically Abused: Not on file Sexually Abused: Not on file Physically or Sexually Abused: Not on file Depression: At risk (08/10/2024) Received from [facility] PHQ-2 Patient Health Questionnaire-2 Score: 4 [...] bifurcating obtuse marginal branch (more content not included)...[facility]08-25-2025 NoteREASON FOR VISIT: Jacquelyn Zeng is a 49 [...] effects reported with Mounjaro. She is using dexcom G7 with smartphone [...] yes Diabetes education: [No] Seen by a rvda master certified rv technician (CDE) within 12 months Meal plan: [No] Seen by a dot net architect within 12 months [ ] Consistent carbohydrate [...] satiety [Yes] Feet numbness/pain/tingling [Yes] Patient seeing scaffold worker/verification clerk regularly [Yes] Patient seeing dentist regularly [No] Patient seeing loft worker pile driving regularly REVIEW OF SYSTEMS Review of Systems [...] Last HbA1c: Lab Res (more content not included)...[facility] 12-23-2024 History of Present illness Narrative* Olu Arce MD - 12/23/2024 8:00 AM EDT Images from the original note [...] under the care of Dr. Samano at [facility], who suggested scheduling another set of [...] her wearing a Holter monitor for a monthin August 2024. She was diagnosed with atrial [...] in the bursa, using sterile technique, and surfaceanesthetic; a 25 gauge 1 1/2 spinal needle was advanced to make contact with the greater trochanter. The needle was then withdrawn about 1 mm. The patient received an injection of 3 cc of Lidocaine2% and 1 cc Dexamethasone 4mg in a fan-like distribution. The needle was removed. A Band-Aid dressing was applied on the injection site.Ultrasound images were placed in the media folder. The Procedure was done by Dr. Olu Arce. Brachial Plexus injection After explaining the risks, complications, and benefits of the procedure, the patient was seated inthe chair. Allergies were reviewed, the consent was signed. The bilateral region posterior to the clavicle is identified and the most tender area is marked for injection then cleaned using sterile technique, and surface anesthetic; a 30 gauge 1/2 spinal needle was advanced and the patient received 1 cc of Lidocaine 2% and 1 cc Dexamethasone 4mg. The needle was removed. The patient tolerated theprocedure well and without complications. A Band-Aid dressing was applied on the injection site. Ultrasound images were placed in the media folder. The Procedure was done by Dr. Olu Arce. This note was scribed by Cm Henriquez(Erick) acting under the direction of Olu Arce MD. Thecontent has been reviewed and confirmed for accuracy [...] Toradol have been provided. A prior authorization willbe processed for Lyrica. This clinical note was created utilizing [employer] documentation system. All information has beenthoroughly reviewed, corrected as necessary, and authenticated by the provider to ensure accuracy and completeness. On occasion, [employer] documentation system erroneously drops words or replaces aspoken word with a similar sounding word. Please notify with any questions or concerns regarding this clinical note. * RT. Erick Henriquez - 12/23/2024 8:00 AM EDT Images from the original note [...] under the care of Dr. Samano at [facility], who suggested scheduling another set of [...] her wearing a Holter monitor for a monthin August 2024. She was diagnosed with atrial [...] in the bursa, using sterile technique, and surfaceanesthetic; a 25 gauge 1 1/2 spinal needle [...] of the procedure, the patient was seated inthe chair. Allergies were reviewed, the consent was signed. The bilateral region posterior to the clavicle is identified and the most tender area is marked for injection then cleaned using sterile technique, and surface anesthetic; a 30 gauge 1/2 spinal needle was advanced and the patient received 1 cc of Lidocaine 2% and 1 cc Dexamethasone 4mg. The needle was removed. The patient tolerated theprocedure well and without complications. A Band-Aid dressing was applied on the injection site. Ultrasound images were placed in the media folder. The Procedure was done by Dr. Olu Arce. This note was scribed by Cm Henriquez(R) acting under the direction of Olu Arce MD. Thecontent has been reviewed and confirmed for accuracy [...] Toradol have been provided. A prior authorization willbe processed for Lyrica. This clinical note was created utilizing [employer] documentation system. All information has beenthoroughly reviewed, corrected as necessary, and authenticated by the provider to ensure accuracy and completeness. On occasion, [employer] documentation system erroneously drops words or replaces aspoken word with a similar sounding word. Please notify with any questions or concerns regarding this clinical note. documented in this [facility]07-25-2025 NoteSpoke with patient and she would prefer to start warfarin instead of paying for Eliquis or Xarelto. Referral faxed to the management clinic here at [facility] per patient request.[facility]07-25-2025 Instructions* Patient Instructions* Kinga Mendes APRN.NURSING EDUCATOR - 12/04/2024 9:16 AM EDT Images from the original note were not included. [facility] Frequently Asked Questions about Botox Treatment for [...] in the central nervous system. Botox helps blockpain signals at the level of the brain. For chronic migraines, Botox is injected into 7 specific muscles in the head and neck using very small needles. By calming overactive nerve activity and blocking pain signals, Botox can help prevent migraines and can significantly lower the number of headaches you might experience. Botox may reducemigraine frequency and severity significantly for 50-70% of chronic migraine patients. Where are the injections? Botox injections, for chronic migraine, involve a series of 31 injections into 7 different muscles using very small needles. These injections occur around the forehead, temples, back of the head, theneck, and shoulder area. What are the possible [...] small and most patients tolerate the procedure withminimal discomfort. Some patients report mild pinching or stinging. How long does the procedure take? Botox is an outpatient procedure: no sedation is given, and you can drive yourself to/from your appointment - you will leave the same day! The duration of the procedure for the injections, once started, is typically 15- 20 minutes. How long will it take until the medication takes effect and I feel better? The Botox medication starts to kick into effect after about 1-2 weeks, it is not immediate. The first or second round of Botox injections may not provide much relief, but it is recommended tocontinue for at least a total of 2-3 [...] 10 to 12 weeks. After this time, youmay start to notice that your migraines return [...] options. It is important to share all previouslytried medications, including durations of trials and why [...] Botox to understand your coverage and any kkw-lz-byifng costs. Botox injections are scheduled every 12-13 [...] If you haven t heard from a diving judge within 1-2 weeks, please call our office at [phone] (select option 1 for Botox schedulers). Feel free to contact us with any other questions or concerns about Botox: Superintendent Transportation [phone] or [email or web address] Once my appointment is scheduled, [...] Botox to understand your coverage and any zip-rh-gunjzp costs. Do I need a transit bus driver? No; however, if it is the first time you are receiving Botox, it is encouraged to have someone withyou for support. What to avoid after the [...] lifting, or anything that causes you to sweatheavily for at least 24 hours. Hair treatments [...] that the treatment helps so much that youcan space out the timing of injections or [...] in and there is limited available data forthe analysis of the use of onabotulinum toxin A for the treatment of chronic migraine in . Please discuss the details with your primary provider regarding treatment if you are planning to conceive, currently , or . documented in this encounterJoint Township District Memorial Hospital07-25-2025 NoteHNO ID: [id number] Author: KINGA MENDES APRN.MICHELLE Service: ? Author [...] for migraine Informed Consent Consent Obtained: Written Steward Protocol A moment to CARE was completed [...] collected. Written Consent Obtained: Written LOT #: [id number] Expiration Date: Month: Year: 2026 Injection Sites Left (Units) Left (Sites) Right (Units) Right (Sites) TOTAL (Units) [place] 5 1 5 1 10 Procerus Units: [...] Anti-Convulsant Gabapentin (Neurontin) Oxcarb (more content not included)...[facility] [facility]07-25-2025 Procedure note* Kinga Mendes APRN.NURSING EDUCATOR - 12/04/2024 8:59 AM EDT Images from the original note [...] last visit: Not applicable, I did not havea botox injection at my last visit Much [...] for migraine Informed Consent Consent Obtained: Written Steward Protocol A moment to CARE was completed [...] collected. Written Consent Obtained: Written LOT #: [id number] Expiration Date: Month: Year: 2026 Injection Sites Left (Units) Left (Sites) Right (Units) Right (Sites) TOTAL (Units) Dumpman 5 1 5 1 10 Procerus Units: [...] Over the Counter Medications Acetaminophen (Tylenol) Kinga Froimson, FORM GRADER.NURSING EDUCATOR [facility]07-25-2025 Procedure note* Kinga Mendes APRN.CNP - 12/04/2024 8:59 AM EDT Images from the original note [...] last visit: Not applicable, I did not havea botox injection at my last visit Much [...] for migraine Informed Consent Consent Obtained: Written Steward Protocol A moment to CARE was completed [...] collected. Written Consent Obtained: Written LOT #: [id number] Expiration Date: Month: 10 Year: 2026 Injection Sites Left (Units) Left (Sites) Right (Units) Right (Sites) TOTAL (Units) Dumpman 5 1 5 1 10 Procerus Units: [...] the Counter Medications Acetaminophen (Tylenol) Kinga Mendes APRN.NURSING EDUCATOR documented in this encounterJoint [facility] History of Present illness Narrative* Olu Arce MD - 10/22/2024 8:20 AM EDT Images from the original note [...] lumbar facet injections that significantly reduced her painlevels. Currently, she experiences shooting pain radiating down her right leg, a new symptom for her. She was advised that deeper injections are necessary due to extensive degeneration. She has not visited the [facility] recently and does not require [...] equal, round, and reactive to light and accommodation,both directly and consensually. Visual jean were full by confrontation. There was no [...] in all four extremities, including at least awnings mechanic, finger abductors, biceps, triceps, deltoid, toe flexors [...] and spasticity are not evident. Arm swing isnormal. Toe, heel, and tandem walking are performed [...] extensive degeneration. She has not visited the [facility] recently and does not require any medication refills at this time. She has previously undergone nerve ablationin her head, which did not provide any [...] extensive degeneration. She has not visited the [facility] recently and does not require any medication refills at this time. She has previously undergone nerve ablationin her head, which did not provide any [...] the consent was signed. After palpating the bilateralgreatertrochanter and identifying the most tender area in [...] of the procedure, the patient was seated inthe chair. Allergies were reviewed, the consent was signed. The bilateral region posterior to the clavicle is identified and the most tender area is marked for injection then cleaned using sterile technique, and surface anesthetic; a 30 gauge 1/2 spinal needle was advanced and the patient received 1 cc of lidocaine 2% and 1 cc Dexamethasone 4mg. The needle was removed. The patient tolerated theprocedure well and without complications. A Band-Aid dressing was applied on the injection site. This note was scribed by Cm Henriquez(Erick) acting under the direction of Olu Arce MD. The con tent has been reviewed and confirmed for accuracy by Olu Arce MD This note was scribed by Jerry Henriquez) acting under the direction of Olu Arce MD. Thecontent has been reviewed and confirmed for accuracy by Olu Arce MD This clinical note was created utilizing [employer] documentation system. All information has beenthoroughly reviewed, corrected as necessary, and authenticated by the provider to ensure accuracy and completeness. On occasion, [employer] documentation system erroneously drops words or replaces aspoken word with a similar sounding word. Please notify with any questions or concerns regarding this clinical note. documented in this encounterJefferson Memorial [id number] History of Present illness Narrative* Josh Ochoa MD - 10/12/2024 9:10 AM EDTAssociated Problem(s): Type 2 diabetes mellitus with polyneuropathy (CMS/HCC) Pain stable and continue lyrica. * Josh Ochoa MD - 10/12/2024 9:10 AM EDTAssociated Problem(s): Type 2 diabetes mellitus with hyperglycemia, with long-term current use of insulin (CMS/HCC) BS improved and A1C 6.9 few months ago. Stick to ADA diet and limit carbs. Follow with endo. * Josh Ochoa MD - 10/12/2024 9:09 AM EDTAssociated Problem(s): MDD (major depressive disorder), recurrent episode, mild (HCC) (CMS/HCC) Symptoms controlled with medication and continue. * Josh Ochoa MD - 10/12/2024 9:09 AM EDTAssociated Problem(s): Generalized anxiety disorder (CMS/HCC) Symptoms controlled with medication and continue. Use xanax PRN. * Josh Ochoa MD - 10/12/2024 9:09 AM EDTAssociated Problem(s): ADD (attention deficit disorder) without hyperactivity Symptoms controlled with strattera and continue. * Josh Ochoa MD - 10/12/2024 8:15 AM EDT Images from the original note [...] medication daily and tolerating without side effects. ADDcontrolled with strattera. Able to stay focused and [...] (Levaquin) 750 MG tablet documented in this encounterJefferson Memorial [id number] NoteREASON FOR VISIT: Jacquelyn Zeng is a 49 [...] yes Diabetes education: [No] Seen by a rvda master certified rv technician (CDE) within 12 months Meal plan: [No] Seen by a dot net architect within 12 months [ ] Consistent carbohydrate [...] satiety [Yes] Feet numbness/pain/tingling [Yes] Patient seeing scaffold worker/verification clerk regularly [Yes] Patient seeing dentist regularly [No] Patient seeing loft worker pile driving regularly REVIEW OF SYSTEMS Review of Systems [...] affect are appropriate. LABS (more content not included)...[facility]05-02-2025 Instructions* Patient Instructions* Froimson, Kinga, FORM GRADER.NURSING EDUCATOR - 09/11/2024 11:44 AM EDT Images from the original note were not included. [facility] Frequently Asked Questions about Botox Treatment for [...] in the central nervous system. Botox helps blockpain signals at the level of the brain. For chronic migraines, Botox is injected into 7 specific muscles in the head and neck using very small needles. By calming overactive nerve activity and blocking pain signals, Botox can help prevent migraines and can significantly lower the number of headaches you might experience. Botox may reducemigraine frequency and severity significantly for 50-70% of chronic migraine patients. Where are the injections? Botox injections, for chronic migraine, involve a series of 31 injections into 7 different muscles using very small needles. These injections occur around the forehead, temples, back of the head, theneck, and shoulder area. What are the possible [...] small and most patients tolerate the procedure withminimal discomfort. Some patients report mild pinching or stinging. How long does the procedure take? Botox is an outpatient procedure: no sedation is given, and you can drive yourself to/from your appointment - you will leave the same day! The duration of the procedure for the injections, once started, is typically 15- 20 minutes. How long will it take until the medication takes effect and I feel better? The Botox medication starts to kick into effect after about 1-2 weeks, it is not immediate. The first or second round of Botox injections may not provide much relief, but it is recommended tocontinue for at least a total of 2-3 [...] 10 to 12 weeks. After this time, youmay start to notice that your migraines return [...] options. It is important to share all previouslytried medications, including durations of trials and why [...] Botox to understand your coverage and any zrj-co-ujmita costs. Botox injections are scheduled every 12-13 [...] If you haven t heard from a diving judge within 1-2 weeks, please call our office at [phone] (select option 1 for Botox schedulers). Feel free to contact us with any other questions or concerns about Botox: Superintendent Transportation [phone] or [email or web address] Once my appointment is scheduled, [...] Botox to understand your coverage and any wig-jy-zhbxiu costs. Do I need a transit bus driver? No; however, if it is the first time you are receiving Botox, it is encouraged to have [facility]. What to avoid after the [...] lifting, or anything that causes you to sweatheavily for at least 24 hours. Hair treatments [...] that the treatment helps so much that youcan space out the timing of injections or [...] in and there is limited available data forthe analysis of the use of onabotulinum toxin A for the treatment of chronic migraine in . Please discuss the details with your primary provider regarding treatment if you are planning to conceive, currently , or . documented in this encounterJoint Township District Memorial Hospital05-02-2025 NoteHNO ID: [id number] Author: KINGA MENDES APRN.MICHELLE Service: ? Author [...] for migraine Informed Consent Consent Obtained: Written Steward Protocol A moment to CARE was completed [...] collected. Written Consent Obtained: Written LOT #: [id number] Expiration Date: Month: 4 Year: 2026 Injection Sites Left (Units) Left (Sites) Right (Units) Right (Sites) TOTAL (Units) Dumpman 5 1 5 1 10 Procerus Units: [...] Trokendi XL, Qudexy) Anti-D (more content not included)...[facility]05-02-2025 Procedure note* Kinga Mendes APRN.NURSING EDUCATOR - 09/11/2024 11:30 AM EDT Images from the original note [...] last visit: Not applicable, I did not havea botox injection at my last visit Much [...] for migraine Informed Consent Consent Obtained: Written Steward Protocol A moment to CARE was completed [...] collected. Written Consent Obtained: Written LOT #: [id number] Expiration Date: Month: 4 Year: 2026 Injection Sites Left (Units) Left (Sites) Right (Units) Right (Sites) TOTAL (Units) Dumpman 5 1 5 1 10 Procerus Units: [...] Counter Medications Acetaminophen (Tylenol) Kinga Mendes APRN.MICHELLE [facility]05-02-2025 Procedure note* Kinga Mendes APRN.CNP - 09/11/2024 11:30 AM EDT Images from the original note [...] last visit: Not applicable, I did not havea botox injection at my last visit Much [...] for migraine Informed Consent Consent Obtained: Written Steward Protocol A moment to CARE was completed [...] collected. Written Consent Obtained: Written LOT #: [id number] Expiration Date: Month: 4 Year: 2026 Injection Sites Left (Units) Left (Sites) Right (Units) Right (Sites) TOTAL (Units) Dumpman 5 1 5 1 10 Procerus Units: [...] (Tylenol) Kinga Mendes APRN.MICHELLE documented in this encounterJoint Township District [facility]05-01-2025 History of Present illness Narrative* Olu Arce MD - 09/10/2024 8:00 AM EDT Images from the original note [...] Use as instructed Lancets (OneTouch Delica Plus [id number]) misc USE DIRECTED Lantus SoloStar 100 UNIT/ML [...] 75 mg, Oral, As needed nystatin (Mycostatin) 830870 UNIT/GM powder APPLY 1 application TO THE AFFECTED AREA(S) THREE TIMESDAILY (EXTERNALLY) pregabalin (LYRICA) 300 mg, Oral, 3 [...] At standard risk for fall 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 Recent andremote memory are intact. Speech is normal. Language is fluent with no aphasia. Attention and concentration are normal. Cranial Nerves CN II: Visual acuity is normal. Visual jean full to confrontation. CN III, IV, : [...] reflexes: Pia's absent. Ankle clonus absent. Coordination Hozmiq-gv-uuqj, rapid alternating movements and otgl-kz-trqf normal bilaterally without dysmetria. Gait Normal casual, toe, heel and tandem gait. Romberg is absent. PROCEDURE: Bursa Injection After explaining the risks, complications, and benefits of the procedure, the patient leaned over the exam table. Allergies were reviewed, the consent was signed. After palpating the bilateralgreatertrochanter and identifying the most tender area in [...] of the procedure, the patient was seated inthe chair. Allergies were reviewed, the consent was signed. The bilateral region posterior to the clavicle is identified and the most tender area is marked for injection then cleaned using sterile technique, and surface anesthetic; a 30 gauge 1/2 spinal needle was advanced and the patient received 1 cc of Bupivacaine 0.5% and 1 cc Dexamethasone 4mg. The needle was removed. The patient toleratedthe procedure well and without complications. A Band-Aid [...] (Autolet) lancing device Use as instructed Lancets (iPrintTouch Delica Plus [id number]) misc USE DIRECTED Lantus SoloStar 100 UNIT/ML [...] 75 mg, Oral, As needed nystatin (Mycostatin) 611692 UNIT/GM powder APPLY 1 application TO THE AFFECTED AREA(S) THREE TIMESDAILY (EXTERNALLY) pregabalin (LYRICA) 300 mg, Oral, 3 [...] under the direction of Olu Arce MD. Thecontent has been reviewed and confirmed for accuracy by Olu Arce MD documented in this encounterJefferson Memorial [id number] NoteUT Cardiology - [facility] Subjective Jacquelyn Zeng is a [...] mellitus (CMS/HCC) ??? Coronary artery disease involving sitka coronary artery of sitka heart without angina pectoris ??? S/P drug [...] On 07/31/2024 she was evaluated in the [facility] emergency room because of dizziness and hypoxia and was found to be dehydrated and was treated with IV fluids. She had tachycardia with improved heart rate upon discharge. Today she reports (more content not included)...[facility]03-31-2025 History of Present illness Narrative* Josh Ochoa MD - 08/10/2024 10:03 AM EDTAssociated Problem(s): Medicare annual wellness visit, subsequent Due for labs. Discussed proper diet and regular aerobic exercise. Need aerobic exercise 5-6 days a week for 30 minutes at a time. Smaller portions and limit total calories. Colonoscopy every 10 years. Tetanus every 10 years. Advised not to smoke. * Josh Ochoa MD - 08/10/2024 9:15 AM EDT Images from the original note [...] and limits snacking. Tries to limit total dailycalories. Due for labs. Review of Systems Respiratory: [...] hyperglycemia, with long-term current use of insulin ([facility]) Relevant Orders Microalbumin / creatinine, urine ratio Hemoglobin A1c Dyslipidemia ([facility]) Relevant Orders Lipid panel Medicare annual wellness [...] Orders TSH T4, free documented in this encounterJefferson Memorial [id number] Telephone encounter Note* Telephone Encounter - Will Medina RN - 06/29/2024 8:19 AM EST Botox referral sent to pharmacy Boris CHILDRESS RN RN Clinical Delivery Director [facility]02-17-2025 Miscellaneous Notes* Telephone Encounter - Will Medina RN - 06/29/2024 8:19 AM EST Botox referral sent to pharmacy Boris CHILDRESS RN RN Clinical Delivery Director [facility] documented in this encounterJoint Township District Memorial Hospital02-13-2025 NoteReceived a message from [employer] stating there is an issue with primary insurance that is on file and they have not been able to contact patient. She said Our records indicate that the patient's primary insurance is [employer], which terminated on May 12, 2024. To ensure accurate coordination of benefits, the patient should contact [employer] to inform them of the change. Please contact patient to inform her of this so she can continue receiving her Dexcom G7 supplyHolzer Health System02-11-2025 NoteREASON FOR VISIT: Jacquelyn Zeng is a 48 [...] not able to get dexcom g7 from [facility] due to insurance coverage. She is tolerating [...] yes Diabetes education: [No] Seen by a rvda master certified rv technician (CDE) within 12 months Meal plan: [No] Seen by a dot net architect within 12 months [ ] Consistent carbohydrate [...] satiety [Yes] Feet numbness/pain/tingling [Yes] Patient seeing scaffold worker/verification clerk regularly [Yes] Patient seeing dentist regularly [No] Patient seeing loft worker pile driving regularly REVIEW OF SYSTEMS Review of Systems [...] respiratory distress currently Extre (more content not included)...[facility] 05-11-2024 History of Present illness Narrative* Josh Ochoa MD - 05/11/2024 9:22 AM ESTAssociated Problem(s): Type 2 diabetes mellitus with polyneuropathy (CMS/HCC) Pain stable and continue lyrica. * Josh Ochoa MD - 05/11/2024 9:22 AM ESTAssociated Problem(s): Type 2 diabetes mellitus with hyperglycemia, with long-term current use of insulin (CMS/HCC) BS improved and due for A1C in a few weeks. Stick to ADA diet and limit carbs. * Josh Ochoa MD - 05/11/2024 9:22 AM ESTAssociated Problem(s): Other chronic pancreatitis (CMS/HCC) No symptoms and monitor. * Josh Ochoa MD - 05/11/2024 9:22 AM ESTAssociated Problem(s): Generalized anxiety disorder (CMS/HCC) Symptoms controlled with medication and continue. Use xanax PRN. * Josh Ochoa MD - 05/11/2024 9:22 AM ESTAssociated Problem(s): Benign essential HTN (CMS/HCC) BP controlled and monitor PRN. * Josh Ochoa MD - 05/11/2024 9:21 AM ESTAssociated Problem(s): ADD (attention deficit disorder) without hyperactivity Symptoms controlled with strattera and continue. * Josh Ochoa MD - 05/11/2024 9:21 AM ESTAssociated Problem(s): Acute non- recurrent pansinusitis Take antibiotics for 7 days. Use [...] no better or worse call for re-evaluation. * Josh Ochoa MD - 05/11/2024 8:45 AM EST Images from the original note were not [...] nervous or worry as much. Not as ubtts or irritable. Neuropathy stable. Not having as [...] (Levaquin) 750 MG tablet documented in this [facility]12-09-2024 Telephone encounter Note* Telephone Encounter - Carolynn Reyes NP - 04/20/2024 5:05 PM EST I do not see ultram on her med list or on [facility]. She will need an appt to discuss meds. [facility] Work Phone: [phone] 259-624612-09-2024 Miscellaneous Notes* Telephone Encounter - Carolynn Reyes NP - 04/20/2024 5:05 PM EST I do not see ultram on her med list or on OARRS. She will need an appt to discuss meds. documented in this [facility]12-03-2024 History of Present illness Narrative* Marilynn Lua PA-C - 04/14/2024 1:00 PM EST [facility] Note Subjective: Jacquelyn [...] mg (FIORICET) per capsule^Take 1 capsule by mouthevery 6 hours as needed.^Disp: ^Rfl: insulin pump [...] strip to test BLOOD SUGAR FOUR TIMES DAILY^Disp:^Rfl: calcium carbonate (CALTRATE) 600 mg calcium (1,500 [...] spontaneous and fluent without dysarthria. Short and termite inspector memory, cognition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 referral. No chief complaint on file. Patient has been identified by name and birthdate. Duration of symptoms: N/A Person calling: self Call patient at: on cell [phone] (home) [phone] (cell) Was an appointment scheduled: No Closing statement: Symptom Call: Thank you for calling [facility], your call is very important. A nurse will call in approximately 2-4 hours during business hours. If this is an emergency, please contact 911. Brielle Pressley documented in this encounterJoint Township District Memorial Hospital03-07-2023 Procedure note* Kinga Mendes APRN.CNP - 07/17/2022 10:00 AM EST [facility] Follow-up Visit Current Preventive: PREEMPT [...] last visit: Not applicable, I did not havea botox injection at my last visit Much [...] for migraine Informed Consent Consent Obtained: Written Steward Protocol A moment to CARE was completed [...] applicable Written Consent Obtained: Written LOT #: [id number] Expiration Date: Month: 5 Year: 2024 Injection Sites Left (Units) Left (Sites) Right (Units) Right (Sites) TOTAL (Units) Dumpman 5 1 5 1 10 Procerus Units: [...] (Tylenol) Kinga Mendes APRN.CNP documented in this [facility]12-06-2022 Instructions* Patient Instructions* Kinga Mendes APRN.CNP - 04/17/2022 10:39 AM [...] it does not, call our office at [phone] for further instructions. documented in this encounterJoint Township District Memorial Hospital12-06-2022 Procedure note* Kinga Mendes APRN.CNP - 04/17/2022 10:15 AM EST Follow-Up Onabotulinum Toxin A (BotoxTM) for Migraine [...] Only helps if taken in conjunction with medialmarijuana. Used 1 toradol in the last month. [...] last visit: Not applicable, I did not havea botox injection at my last visit Much [...] for migraine Informed Consent Consent Obtained: Written Steward Protocol A moment to CARE was completed [...] (Sites) Right (Units) Right (Sites) TOTAL (Units) Dumpman 5 1 5 1 10 Procerus Units: [...] (Tylenol) Kinga Mendes APRN.CNP documented in this encounterJoint Township District Memorial Hospital08-30-2022 Instructions* Patient Instructions* Kinga Mendes APRN.CNP - 01/09/2022 3:27 PM [...] it does not, call our office at [phone] for further instructions. documented in this encounterJoint Township District Memorial Hospital08-30-2022 Procedure note* Kinga Mendes APRN.CNP - 01/09/2022 3:15 PM EDT Follow-Up Onabotulinum Toxin A (BotoxTM) for Migraine [...] last visit: Not applicable, I did not havea botox injection at my last visit Much [...] for migraine Informed Consent Consent Obtained: Written Steward Protocol A moment to CARE was completed [...] (Sites) Right (Units) Right (Sites) TOTAL (Units) Dumpman 5 1 5 1 10 Procerus Units: [...] (Tylenol) Kinga Mendes APRN.MICHELLE documented in this encounterJoint Township District [facility] Hospital08-21-2022 Evaluation note* Encounter Date Diagnosis Assessment Notes Treatment Notes Treatment Clinical Notes Dec, Cellulitis of left external ear (ICD-10 - H60.12) Cellulitis: adult home care material was printed Drink plenty fluids, get plenty of rest. Take the amoxicillin with clavulanate as prescribed until gone. Continue to use the mupirocin ointment as prescribed. Continue your home medications as prescribed. Follow-up with your family physician on Saturday without fail. Go to the ER for for worseningsymptoms or concerns [facility] Other 07-30-2022 Evaluation note* Encounter Date Diagnosis Assessment Notes Treatment Notes Treatment Clinical Notes Nov, Cellulitis of left earlobe (ICD- 10 - H60.12) Discussed diagnosis with patient in detail. Used nylon hot wire cutter to remove earing today in office. Instructed patient to take antibiotic as directed, complete entire course even if feeling better, take with food and plenty of water. Use rx of Mupirocin ointment to ear piercingsite, as I believe this is source of [...] understanding and is agreeable to treatment plan [facility] Other 04-29-2022 Miscellaneous Notes* Telephone Encounter - [...] referral. Thank you! Heaven documented in this encounterJoint Township District Memorial Hospital12-13-2005 History of Past illness Narrative* ProblemNoted DateResolved DateMigraine without aura, without mention of intractable migraine without mention of status [id number]/13/2005 08/01/2016documented as of this encounter (statuses as of 09/08/2021) [address]13-2005 History of Past illness Narrative* ProblemNoted Date Resolved DateMigraine without aura, without mention of intractable migraine without mention of status [id number] as of this encounter (statuses as of 01/09/2022) [address]13-2005 History of Past illness Narrative* ProblemNoted Date Resolved DateMigraine without aura, without mention of intractable migraine without mention of status [id number] as of this encounter (statuses as of 04/17/2022) [address]-2005 History of Past illness Narrative* ProblemNoted Date Resolved DateMigraine without aura, without mention of intractable migraine without mention of status [id number] as of this encounter (statuses as of 07/17/2022) [address]-2005 History of Past illness Narrative* ProblemNoted Date Resolved DateMigraine without aura, without mention of intractable migraine without mention of status [id number] as of this encounter (statuses as of 07/17/2022) [address]-2005 History of Past illness Narrative* ProblemNoted Date Resolved DateMigraine without aura, without mention of intractable migraine without mention of status [id number] as of this encounter (statuses as of 10/10/2022) [address]13-2005 History of Past illness Narrative* ProblemNoted Date Diagnosed DateResolved DateMigraine without aura, without mention of intractable migraine without mention of status [id number] documented as of this encounter (statuses as of 01/02/2023) [address]-2005 History of Past illness Narrative* ProblemNoted Date Diagnosed DateResolved DateMigraine without aura, without mention of intractable migraine without mention of status [id number] documented as of this encounter (statuses as of 03/29/2023) [facility] Intractable chronic migraine without aura and without status migrainosus- Primary Chronic migraine without aura, with intractable migraine, so stated, without mention of status migrainosus documented [facility] noteNo assessment information availablePrem[facility] Work Phone: Evaluation note* Diagnosis Intractable chronic migraine without aura and without status migrainosus- Primary Chronic migraine without aura, with intractable migraine, so stated, without mention of status migrainosus [facility] Diagnosis Intractable chronic migraine without aura and without status migrainosus- Primary Chronic migraine without aura, with intractable migraine, so stated, without mention of status migrainosus [facility] Diagnosis Intractable chronic migraine without aura and without status migrainosus- Primary Chronic migraine without aura, with intractable migraine, so stated, without mention of status migrainosus Chronic daily headache Headache [facility] Diagnosis Type 2 diabetes mellitus with hyperglycemia, with long-term current use of insulin (CMS/HCC)- Primary Benign essential HTN (CMS/HCC) ADD (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 deficit disorder without mention of hyperactivity MDD (major depressive disorder), recurrent episode, mild (HCC) ([facility]/HCC) Generalized anxiety disorder (CMS/HCC) Generalized anxiety disorder Mild intermittent asthma without complication (CMS/HCC) Complex regional pain syndrome type 1, affecting unspecified site Mixed hyperlipidemia (CMS/HCC) Mixed hyperlipidemia skilled nursing (current) use of insulin (Z79.4) documented in this encounter [facility]* Diagnosis Generalized anxiety disorder (CMS/HCC) Generalized anxiety disorder documented in this encounter [facility]* Diagnosis Major depressive disorder, single episode, severe without psychotic features (HCC) (CMS/HCC) Generalized anxiety disorder (CMS/HCC) Generalized anxiety disorder Panic disorder (CMS/HCC) Panic disorder without agoraphobia documented in this encounter [facility]* Diagnosis Type 2 diabetes [...] unspecified site Mixed hyperlipidemia (CMS/HCC) Mixed hyperlipidemia 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 (Z79.4) ADD (attention [...] hyperglycemia, with long-term current use of insulin ([facility]/HCC)- Primary Benign essential HTN (CMS/HCC) ADD (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 deficit disorder without mention of hyperactivity MDD (major depressive disorder), recurrent episode, mild (HCC) ([facility]/HCC) Generalized anxiety disorder ([facility]/HCC) Generalized anxiety disorder Type 2 diabetes mellitus with polyneuropathy ([facility]) Type II or unspecified type diabetes mellitus [...] hyperglycemia, with long-term current use of insulin ([facility]/HCC)- Primary Benign essential HTN (CMS/HCC) ADD (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 deficit disorder without mention of hyperactivity MDD (major depressive disorder), recurrent episode, mild (HCC) (CMS/HCC) Generalized anxiety disorder (CMS/HCC) Generalized anxiety disorder Mild intermittent asthma without complication (CMS/HCC) Complex regional pain syndrome type 1, affecting unspecified site Mixed hyperlipidemia (CMS/HCC) Mixed hyperlipidemia 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 (Z79.4) ADD (attention deficit disorder) without hyperactivity- Primary Attention deficit disorder without mention of hyperactivity Type 2 diabetes mellitus with hyperglycemia, with long-term current use of insulin (CMS/HCC) Benign essential HTN (CMS/HCC) MDD (major depressive disorder), recurrent episode, mild (HCC) (CMS/HCC) Generalized anxiety disorder ([facility]/HCC) Generalized anxiety disorder Type 2 diabetes mellitus with hyperglycemia, with long-term current use of insulin ([facility]/HCC)- Primary Benign essential HTN (CMS/HCC) ADD (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 deficit disorder without mention of hyperactivity MDD (major depressive disorder), recurrent episode, mild (HCC) (CMS/HCC) Generalized anxiety disorder ([facility]/HCC) Generalized anxiety disorder Type 2 diabetes mellitus with polyneuropathy ([facility]) Type II or unspecified type diabetes mellitus with neurological manifestations, not stated as uncontrolled Dysuria Breast cancer screening by mammogram Major depressive disorder, single episode, severe without psychotic features (HCC) ([facility]/HCC) Generalized anxiety disorder ([facility]/HCC) Generalized anxiety disorder Panic disorder ([facility]) Panic disorder without agoraphobia Insomnia, unspecified type documented in this encounter [facility]* Diagnosis Type 2 diabetes mellitus with hyperglycemia, with long-term current use of insulin ([facility])- Primary Benign essential HTN ([facility]/HCC) ADD (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 deficit disorder without mention of hyperactivity MDD (major depressive disorder), recurrent episode, mild (HCC) ([facility]/HCC) Generalized anxiety disorder ([facility]) Generalized anxiety disorder Mild intermittent asthma without complication ([facility]) Complex regional pain syndrome type 1, affecting unspecified site Mixed hyperlipidemia ([facility]) Mixed hyperlipidemia skilled nursing (current) use of insulin (Z79.4) ADD (attention deficit disorder) without hyperactivity- Primary Attention deficit disorder without mention of hyperactivity Type 2 diabetes mellitus with hyperglycemia, with long-term current use of insulin ([facility]/HCC) Benign essential HTN (CMS/HCC) MDD (major depressive disorder), recurrent episode, mild (HCC) ([facility]) Generalized anxiety disorder ([facility]) Generalized anxiety disorder Type 2 diabetes mellitus with hyperglycemia, with long-term current use of insulin ([facility]/HCC)- Primary Benign essential HTN (CMS/HCC) ADD (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 deficit disorder without mention of hyperactivity MDD (major depressive disorder), recurrent episode, mild (HCC) ([facility]/HCC) Generalized anxiety disorder ([facility]/HCC) Generalized anxiety disorder Type 2 diabetes mellitus with polyneuropathy (CMS/HCC) Type II or unspecified type diabetes mellitus with neurological manifestations, not stated as uncontrolled Dysuria Breast cancer screening by mammogram Generalized anxiety disorder ([facility]/HCC) Generalized anxiety disorder ADD (attention deficit disorder) without hyperactivity Attention deficit disorder without mention of hyperactivity documented in this encounter [facility] HealthcareEvaluation note* Diagnosis Type 2 diabetes mellitus [...] skilled nursing (current) use of insulin (Z79.4) ADD (attention deficit disorder) without hyperactivity- Primary Attention deficit disorder without mention of hyperactivity Type 2 diabetes mellitus with hyperglycemia, with long-term current use of insulin ([facility]/HCC) Benign essential HTN (CMS/HCC) MDD (major depressive disorder), recurrent episode, mild (HCC) (CMS/HCC) Generalized anxiety disorder ([facility]/HCC) Generalized anxiety disorder Type 2 diabetes mellitus with hyperglycemia, with long-term current use of insulin ([facility]/HCC)- Primary Benign essential HTN (CMS/HCC) ADD (attention deficit disorder) without hyperactivity Attention deficit disorder without mention of hyperactivity MDD (major depressive disorder), recurrent episode, mild (HCC) ([facility]/HCC) Generalized anxiety disorder ([facility]/HCC) Generalized anxiety disorder Type 2 diabetes mellitus with polyneuropathy ([facility]) Type II or unspecified type diabetes mellitus with neurological manifestations, not stated as uncontrolled Dysuria Breast cancer screening by mammogram Trochanteric bursitis of both hips- Primary documented in this encounter [facility] HealthcareEvaluation note* Diagnosis Type 2 diabetes mellitus [...] skilled nursing (current) use of insulin (Z79.4) ADD (attention [...] of both hips [facility] Intractable chronic migraine without aura and without status migrainosus- Primary Chronic migraine without aura, with intractable migraine, so stated, without mention of status migrainosus Chronic daily headache Headache Status migrainosus Variants of migraine, not elsewhere classified, without mention of intractable migraine without mention of status migrainosus [facility] Status migrainosus- Primary Variants of migraine, not elsewhere classified, without mention of intractable migraine without mention of status migrainosus [facility] Diagnosis Status migrainosus- Primary Variants of migraine, not elsewhere classified, without mention of intractable migraine without mention of status migrainosus [facility] Diagnosis Status migrainosus- Primary Variants of migraine, not elsewhere classified, without mention of intractable migraine without mention of status migrainosus [facility] Diagnosis Status migrainosus- Primary Variants of migraine, not elsewhere classified, without mention of intractable migraine without mention of status migrainosus [facility] Diagnosis Status migrainosus- Primary Variants of migraine, not elsewhere classified, without mention of intractable migraine without mention of status migrainosus [facility] Diagnosis Major depressive disorder, single episode, severe without psychotic features (HCC) ([facility]/HCC) Generalized anxiety disorder ([facility]/HCC) Generalized anxiety disorder documented in this encounter [facility] HealthcareEvaluation note* Diagnosis Major depressive disorder, single episode, severe without psychotic features (HCC) ([facility]/HCC) Generalized anxiety disorder ([facility]/HCC) Generalized anxiety disorder Panic disorder ([facility]) Panic disorder without agoraphobia documented in this encounter [facility]Evaluation [facility]* Diagnosis Generalized anxiety disorder ([facility]/HCC) Generalized anxiety disorder documented in this encounter [facility]* Diagnosis Type 2 diabetes mellitus with hyperglycemia, with long-term current use of insulin ([facility])- Primary Benign essential HTN (CMS/HCC) ADD (attention deficit disorder) without hyperactivity Attention deficit disorder without mention of hyperactivity MDD (major depressive disorder), recurrent episode, mild (HCC) ([facility]) Generalized anxiety disorder ([facility]) Generalized anxiety disorder Mild intermittent asthma without complication ([facility]) Complex regional pain syndrome type 1, affecting unspecified site Mixed hyperlipidemia ([facility]) Mixed hyperlipidemia 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 (Z79.4) ADD (attention deficit disorder) without hyperactivity- Primary Attention deficit disorder without mention of hyperactivity Type 2 diabetes mellitus with hyperglycemia, with long-term current use of insulin ([facility]) Benign essential HTN ([facility]/HCC) MDD (major depressive disorder), recurrent episode, mild (HCC) ([facility]) Generalized anxiety disorder ([facility]) Generalized anxiety disorder Type 2 diabetes mellitus with hyperglycemia, with long-term current use of insulin ([facility])- Primary Benign essential HTN ([facility]/HCC) ADD (attention deficit disorder) without hyperactivity Attention deficit disorder without mention of hyperactivity MDD (major depressive disorder), recurrent episode, mild (HCC) ([facility]/HCC) Generalized anxiety disorder ([facility]/HCC) Generalized anxiety disorder Type 2 diabetes mellitus with polyneuropathy ([facility]) Type II or unspecified type diabetes mellitus with neurological manifestations, not stated as uncontrolled Dysuria Breast cancer screening by mammogram Type 2 diabetes mellitus with hyperglycemia, with long-term current use of insulin ([facility]/HCC)- Primary Benign essential HTN (CMS/HCC) ADD (attention deficit disorder) without hyperactivity Attention deficit disorder without mention of hyperactivity MDD (major depressive disorder), recurrent episode, mild (HCC) (CMS/HCC) Generalized anxiety disorder (CMS/HCC) Generalized anxiety disorder Type 2 diabetes mellitus with polyneuropathy (CMS/HCC) Type II or unspecified type diabetes mellitus with neurological manifestations, not stated as uncontrolled Other chronic pancreatitis (CMS/HCC) Acute non-recurrent pansinusitis documented in this encounter [facility]* Diagnosis Type 2 diabetes mellitus with hyperglycemia, with long-term current use of insulin ([facility]/HCC)- Primary Benign essential HTN (CMS/HCC) ADD (attention deficit disorder) without hyperactivity Attention deficit disorder without mention of hyperactivity MDD (major depressive disorder), recurrent episode, mild (HCC) (CMS/HCC) Generalized anxiety disorder ([facility]/HCC) Generalized anxiety disorder Mild intermittent asthma without complication ([facility]/HCC) Complex regional pain syndrome type 1, affecting unspecified site Mixed hyperlipidemia (CMS/HCC) Mixed hyperlipidemia 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 (Z79.4) ADD (attention deficit disorder) without hyperactivity- Primary Attention deficit disorder without mention of hyperactivity Type 2 diabetes mellitus with hyperglycemia, with long-term current use of insulin ([facility]/HCC) Benign essential HTN (CMS/HCC) MDD (major depressive disorder), recurrent episode, mild (HCC) (CMS/HCC) Generalized anxiety disorder ([facility]/HCC) Generalized anxiety disorder Type 2 diabetes mellitus with hyperglycemia, with long-term current use of insulin ([facility]/HCC)- Primary Benign essential HTN (CMS/HCC) ADD (attention deficit disorder) without hyperactivity Attention deficit disorder without mention of hyperactivity MDD (major depressive disorder), recurrent episode, mild (HCC) (CMS/HCC) Generalized anxiety disorder (CMS/HCC) Generalized anxiety disorder Type 2 diabetes mellitus with polyneuropathy ([facility]/HCC) Type II or unspecified type diabetes mellitus with neurological manifestations, not stated as uncontrolled Dysuria Breast cancer screening by mammogram Type 2 diabetes mellitus with hyperglycemia, with long-term current use of insulin ([facility]/HCC)- Primary Benign essential HTN (CMS/HCC) ADD (attention deficit disorder) without hyperactivity Attention deficit disorder without mention of hyperactivity MDD (major depressive disorder), recurrent episode, mild (HCC) (CMS/HCC) Generalized anxiety disorder ([facility]/HCC) Generalized anxiety disorder Type 2 diabetes mellitus [...] unspecified site Mixed hyperlipidemia (CMS/HCC) Mixed hyperlipidemia 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 (Z79.4) ADD (attention [...] hyperglycemia, with long-term current use of insulin ([facility]/HCC)- Primary Benign essential HTN (CMS/HCC) ADD (attention [...] unspecified site Mixed hyperlipidemia (CMS/HCC) Mixed hyperlipidemia 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 (Z79.4) ADD (attention [...] (CMS/HCC) Acute non-recurrent pansinusitis Generalized anxiety disorder (CMS/HCC) Generalized anxiety disorder Hyperlipidemia, unspecified (CMS/HCC) documented in this encounter [facility]* Diagnosis Type 2 diabetes mellitus with hyperglycemia, with long-term current use of insulin (CMS/HCC)- Primary Benign essential HTN (CMS/HCC) ADD (attention deficit disorder) without hyperactivity Attention deficit disorder without mention of hyperactivity MDD (major depressive disorder), recurrent episode, mild (HCC) (CMS/HCC) Generalized anxiety disorder (CMS/HCC) Generalized anxiety disorder Mild intermittent asthma without complication ([facility]/HCC) Complex regional pain syndrome type 1, affecting unspecified site Mixed hyperlipidemia (CMS/HCC) Mixed hyperlipidemia 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 (Z79.4) ADD (attention deficit disorder) without hyperactivity- Primary Attention deficit disorder without mention of hyperactivity Type 2 diabetes mellitus with hyperglycemia, with long-term current use of insulin ([facility]/HCC) Benign essential HTN (CMS/HCC) MDD (major depressive disorder), recurrent episode, mild (HCC) ([facility]/HCC) Generalized anxiety disorder ([facility]) Generalized anxiety disorder Type 2 diabetes mellitus with hyperglycemia, with long-term current use of insulin ([facility])- Primary Benign essential HTN (CMS/HCC) ADD (attention deficit disorder) without hyperactivity Attention deficit disorder without mention of hyperactivity MDD (major depressive disorder), recurrent episode, mild (HCC) ([facility]/HCC) Generalized anxiety disorder ([facility]/HCC) Generalized anxiety disorder Type 2 diabetes mellitus with polyneuropathy ([facility]) Type II or unspecified type diabetes mellitus with neurological manifestations, not stated as uncontrolled Dysuria Breast cancer screening by mammogram Type 2 diabetes mellitus with hyperglycemia, with long-term current use of insulin ([facility])- Primary Benign essential HTN (CMS/HCC) ADD (attention deficit disorder) without hyperactivity Attention deficit disorder without mention of hyperactivity MDD (major depressive disorder), recurrent episode, mild (HCC) ([facility]/HCC) Generalized anxiety disorder ([facility]/HCC) Generalized anxiety disorder Type 2 diabetes mellitus with polyneuropathy ([facility]) Type II or unspecified type diabetes mellitus with neurological manifestations, not stated as uncontrolled Other chronic pancreatitis ([facility]) Acute non-recurrent pansinusitis Major depressive disorder, single episode, severe without psychotic features (HCC) ([facility]) Generalized anxiety disorder ([facility]/HCC) Generalized anxiety disorder Panic disorder ([facility]) Panic disorder without agoraphobia documented in this encounter [facility]* Diagnosis Type 2 diabetes [...] skilled nursing (current) use of insulin (Z79.4) ADD (attention [...] Other chronic pancreatitis documented in this encounter [facility]* [...] skilled nursing (current) use of insulin (Z79.4) ADD (attention [...] disorder Type 2 diabetes mellitus with polyneuropathy ([facility]/HCC) Type II or unspecified type diabetes mellitus [...] disorder Type 2 diabetes mellitus with polyneuropathy ([facility]/HCC) Type II or unspecified type diabetes mellitus [...] TSH Other chronic pancreatitis Generalized anxiety disorder ([facility]/HCC) Generalized anxiety disorder documented in this encounter [facility] HealthcareEvaluation note* Diagnosis Type 2 diabetes mellitus with hyperglycemia, with long-term current use of insulin ([facility])- Primary Benign essential HTN (CMS/HCC) ADD (attention deficit disorder) without hyperactivity Attention deficit disorder without mention of hyperactivity MDD (major depressive disorder), recurrent episode, mild (HCC) ([facility]) Generalized anxiety disorder ([facility]) Generalized anxiety disorder Mild intermittent asthma without complication ([facility]) Complex regional pain syndrome type 1, affecting unspecified site Mixed hyperlipidemia ([facility]/HCC) Mixed hyperlipidemia skilled nursing (current) use of insulin (Z79.4) ADD (attention deficit disorder) without hyperactivity- Primary Attention deficit disorder without mention of hyperactivity Type 2 diabetes mellitus with hyperglycemia, with long-term current use of insulin ([facility]) Benign essential HTN (CMS/HCC) MDD (major depressive disorder), recurrent episode, mild (HCC) ([facility]) Generalized anxiety disorder ([facility]) Generalized anxiety disorder Type 2 diabetes mellitus with hyperglycemia, with long-term current use of insulin ([facility])- Primary Benign essential HTN (CMS/HCC) ADD (attention deficit disorder) without hyperactivity Attention deficit disorder without mention of hyperactivity MDD (major depressive disorder), recurrent episode, mild (HCC) ([facility]) Generalized anxiety disorder ([facility]/HCC) Generalized anxiety disorder Type 2 diabetes mellitus with polyneuropathy ([facility]) Type II or unspecified type diabetes mellitus with neurological manifestations, not stated as uncontrolled Dysuria Breast cancer screening by mammogram Type 2 diabetes mellitus with hyperglycemia, with long-term current use of insulin ([facility])- Primary Benign essential HTN ([facility]/HCC) ADD (attention deficit disorder) without hyperactivity Attention deficit disorder without mention of hyperactivity MDD (major depressive disorder), recurrent episode, mild (HCC) ([facility]) Generalized anxiety disorder ([facility]) Generalized anxiety disorder Type 2 diabetes mellitus with polyneuropathy ([facility]) Type II or unspecified type diabetes mellitus with neurological manifestations, not stated as uncontrolled Other chronic pancreatitis Acute non-recurrent pansinusitis Medicare annual wellness visit, subsequent- Primary Type 2 diabetes mellitus with hyperglycemia, with long-term current use of insulin ([facility]) Benign essential HTN ([facility]/HCC) Dyslipidemia ([facility]) Other and unspecified hyperlipidemia Encounter for long-term (current) use of medications Encounter for long-term (current) use of other medications Abnormal TSH Other chronic pancreatitis Major depressive disorder, single episode, severe without psychotic features (HCC) (CMS/HCC) Generalized anxiety disorder ([facility]/HCC) [facility] Intractable chronic migraine without aura and without status migrainosus- Primary Chronic migraine without aura, with intractable migraine, so stated, without mention of status migrainosus Chronic daily headache [facility] Diagnosis Type 2 diabetes mellitus with hyperglycemia, with long-term current use of insulin ([facility]/HCC)- Primary Benign essential HTN (CMS/HCC) ADD (attention deficit disorder) without hyperactivity Attention deficit disorder without mention of hyperactivity MDD (major depressive disorder), recurrent episode, mild (HCC) ([facility]/HCC) Generalized anxiety disorder ([facility]/HCC) Generalized anxiety disorder Mild intermittent asthma without complication ([facility]/HCC) Complex regional pain syndrome type 1, affecting unspecified site Mixed hyperlipidemia (CMS/HCC) Mixed hyperlipidemia skilled nursing (current) use of insulin (Z79.4) ADD (attention deficit disorder) without hyperactivity- Primary Attention deficit disorder without mention of hyperactivity Type 2 diabetes mellitus with hyperglycemia, with long-term current use of insulin ([facility]/HCC) Benign essential HTN (CMS/HCC) MDD (major depressive disorder), recurrent episode, mild (HCC) (CMS/HCC) Generalized anxiety disorder ([facility]/HCC) Generalized anxiety disorder Type 2 diabetes mellitus with hyperglycemia, with long-term current use of insulin ([facility]/HCC)- Primary Benign essential HTN (CMS/HCC) ADD (attention deficit disorder) without hyperactivity Attention deficit disorder without mention of hyperactivity MDD (major depressive disorder), recurrent episode, mild (HCC) (CMS/HCC) Generalized anxiety disorder ([facility]/HCC) Generalized anxiety disorder Type 2 diabetes mellitus with polyneuropathy ([facility]/HCC) Type II or unspecified type diabetes mellitus with neurological manifestations, not stated as uncontrolled Dysuria Breast cancer screening by mammogram Type 2 diabetes mellitus with hyperglycemia, with long-term current use of insulin ([facility]/HCC)- Primary Benign essential HTN (CMS/HCC) ADD (attention deficit disorder) without hyperactivity Attention deficit disorder without mention of hyperactivity MDD (major depressive disorder), recurrent episode, mild (HCC) (CMS/HCC) Generalized anxiety disorder ([facility]/HCC) Generalized anxiety disorder Type 2 diabetes mellitus with polyneuropathy ([facility]) Type II or unspecified type diabetes mellitus with neurological manifestations, not stated as uncontrolled Other chronic pancreatitis Acute non-recurrent pansinusitis Medicare annual wellness visit, subsequent- Primary Type 2 diabetes mellitus with hyperglycemia, with long-term current use of insulin ([facility] Benign essential HTN ([facility] Dyslipidemia ([facility]) Other and unspecified hyperlipidemia Encounter for long-term (current) use of medications Encounter for long-term (current) use of other medications Abnormal TSH Other chronic pancreatitis Major depressive disorder, single episode, severe without psychotic features (HCC) ([facility]) Generalized anxiety disorder ([facility]) Generalized anxiety disorder Panic disorder ([facility] Panic disorder without agoraphobia [facility] Diagnosis Localized osteoarthritis of left shoulder documented in this encounter [facility]* Diagnosis Cervical spondylosis without myelopathy Lumbosacral spondylosis without myelopathy [facility] Diagnosis Type 2 diabetes mellitus with hyperglycemia, with long-term current use of insulin ([facility])- Primary Benign essential HTN ([facility]) ADD (attention deficit disorder) without hyperactivity Attention deficit disorder without mention of hyperactivity MDD (major depressive disorder), recurrent episode, mild (HCC) ([facility] Generalized anxiety disorder ([facility]) Generalized anxiety disorder Mild intermittent asthma without complication ([facility]) Complex regional pain syndrome type 1, affecting unspecified site Mixed hyperlipidemia ([facility]) Mixed hyperlipidemia skilled nursing (current) use of insulin (Z79.4) ADD (attention deficit disorder) without hyperactivity- Primary Attention deficit disorder without mention of hyperactivity Type 2 diabetes mellitus with hyperglycemia, with long-term current use of insulin ([facility]) Benign essential HTN ([facility]) MDD (major depressive disorder), recurrent episode, mild (HCC) ([facility]) Generalized anxiety disorder ([facility]) Generalized anxiety disorder Type 2 diabetes mellitus with hyperglycemia, with long-term current use of insulin ([facility])- Primary Benign essential HTN ([facility]) ADD (attention deficit disorder) without hyperactivity Attention deficit disorder without mention of hyperactivity MDD (major depressive disorder), recurrent episode, mild (HCC) ([facility]) Generalized anxiety disorder ([facility]) Generalized anxiety disorder Type 2 diabetes mellitus with polyneuropathy ([facility]) Type II or unspecified type diabetes mellitus with neurological manifestations, not stated as uncontrolled Dysuria Breast cancer screening by mammogram Type 2 diabetes mellitus with hyperglycemia, with long-term current use of insulin ([facility])- Primary Benign essential HTN ([facility]/HCC) ADD (attention deficit disorder) without hyperactivity Attention deficit disorder without mention of hyperactivity MDD (major depressive disorder), recurrent episode, mild (HCC) ([facility]) Generalized anxiety disorder ([facility]) Generalized anxiety disorder Type 2 diabetes mellitus with polyneuropathy ([facility]) Type II or unspecified type diabetes mellitus with neurological manifestations, not stated as uncontrolled Other chronic pancreatitis Acute non-recurrent pansinusitis Medicare annual wellness visit, subsequent- Primary Type 2 diabetes mellitus with hyperglycemia, with long-term current use of insulin ([facility]) Benign essential HTN ([facility]) Dyslipidemia ([facility]) Other and unspecified hyperlipidemia Encounter for long-term (current) use of medications Encounter for long-term (current) use of other medications Abnormal TSH Other chronic pancreatitis Trochanteric bursitis of both hips- Primary Lumbar spondylosis Lumbosacral spondylosis without myelopathy Lumbar radiculopathy Thoracic or lumbosacral neuritis or radiculitis, unspecified Nerve root and plexus disorder, unspecified documented in this encounter [facility]* Diagnosis Pain Generalized pain documented in this encounter [facility]* Diagnosis Lumbosacral spondylosis without myelopathy [facility] Diagnosis Type 2 diabetes mellitus with hyperglycemia, with long-term current use of insulin ([facility])- Primary Benign essential HTN ([facility]) ADD (attention deficit disorder) without hyperactivity Attention deficit disorder without mention of hyperactivity MDD (major depressive disorder), recurrent episode, mild (HCC) ([facility]) Generalized anxiety disorder ([facility]) Generalized anxiety disorder Mild intermittent asthma without complication ([facility]) Complex regional pain syndrome type 1, affecting unspecified site Mixed hyperlipidemia ([facility]) Mixed hyperlipidemia skilled nursing (current) use of insulin (Z79.4) ADD (attention deficit disorder) without hyperactivity- Primary Attention deficit disorder without mention of hyperactivity Type 2 diabetes mellitus with hyperglycemia, with long-term current use of insulin ([facility]) Benign essential HTN ([facility]) MDD (major depressive disorder), recurrent episode, mild [...] (major depressive disorder), recurrent episode, mild (HCC) ([facility]/HCC) Generalized anxiety disorder ([facility]/HCC) Generalized anxiety disorder Type 2 diabetes mellitus with polyneuropathy ([facility]/HCC) Type II or unspecified type diabetes mellitus with neurological manifestations, not stated as uncontrolled Other chronic pancreatitis Acute non-recurrent pansinusitis Medicare annual wellness visit, subsequent- Primary Type 2 diabetes mellitus with hyperglycemia, with long-term current use of insulin ([facility]/HCC) Benign essential HTN (CMS/HCC) Dyslipidemia ([facility]/HCC) Other and unspecified hyperlipidemia Encounter for long-term (current) use of medications Encounter for long-term (current) use of other medications Abnormal TSH Other chronic pancreatitis Type 2 diabetes mellitus with hyperglycemia, with long-term current use of insulin ([facility]/HCC)- Primary Benign essential HTN (CMS/HCC) ADD (attention deficit disorder) without hyperactivity Attention deficit disorder without mention of hyperactivity MDD (major depressive disorder), recurrent episode, mild (HCC) ([facility]/HCC) Generalized anxiety disorder ([facility]/HCC) Generalized anxiety disorder Type 2 diabetes mellitus with polyneuropathy ([facility]/HCC) Type II or unspecified type diabetes mellitus with neurological manifestations, not stated as uncontrolled Acute non-recurrent pansinusitis documented in this encounter [facility] HealthcareEvaluation note* Diagnosis Type 2 diabetes mellitus with hyperglycemia, with long-term current use of insulin ([facility]/HCC)- Primary Benign essential HTN (CMS/HCC) ADD (attention deficit disorder) without hyperactivity Attention deficit disorder without mention of hyperactivity MDD (major depressive disorder), recurrent episode, mild (HCC) (CMS/HCC) Generalized anxiety disorder (CMS/HCC) Generalized anxiety disorder Mild intermittent asthma without complication (CMS/HCC) Complex regional pain syndrome type 1, affecting unspecified site Mixed hyperlipidemia (CMS/HCC) Mixed hyperlipidemia skilled nursing (current) use of insulin (Z79.4) ADD (attention [...] hyperglycemia, with long-term current use of insulin ([facility]/HCC)- Primary Benign essential HTN (CMS/HCC) ADD (attention deficit disorder) without hyperactivity Attention deficit disorder without mention of hyperactivity MDD (major depressive disorder), recurrent episode, mild (HCC) (CMS/HCC) Generalized anxiety disorder (CMS/HCC) Generalized anxiety disorder Type 2 diabetes mellitus with polyneuropathy ([facility]) Type II or unspecified type diabetes mellitus with neurological manifestations, not stated as uncontrolled Dysuria Breast cancer screening by mammogram Type 2 diabetes mellitus with hyperglycemia, with long-term current use of insulin ([facility]/HCC)- Primary Benign essential HTN (CMS/HCC) ADD (attention deficit disorder) without hyperactivity Attention deficit disorder without mention of hyperactivity MDD (major depressive disorder), recurrent episode, mild (HCC) ([facility]/HCC) Generalized anxiety disorder ([facility]/HCC) Generalized anxiety disorder Type 2 diabetes mellitus with polyneuropathy ([facility]) Type II or unspecified type diabetes mellitus [...] hyperglycemia, with long-term current use of insulin ([facility])- Primary Benign essential HTN (CMS/HCC) ADD (attention [...] psychotic features (HCC) (CMS/HCC) Generalized anxiety disorder ([facility]/HCC) Generalized anxiety disorder documented in this encounter [facility]* Diagnosis Type 2 diabetes mellitus with hyperglycemia, with long-term current use of insulin ([facility])- Primary Benign essential HTN (CMS/HCC) ADD (attention deficit disorder) without hyperactivity Attention deficit disorder without mention of hyperactivity MDD (major depressive disorder), recurrent episode, mild (HCC) ([facility]/HCC) Generalized anxiety disorder ([facility]/HCC) Generalized anxiety disorder Mild intermittent asthma without complication ([facility]) Complex regional pain syndrome type 1, affecting unspecified site Mixed hyperlipidemia ([facility]) Mixed hyperlipidemia skilled nursing (current) use of insulin (Z79.4) ADD (attention deficit disorder) without hyperactivity- Primary Attention deficit disorder without mention of hyperactivity Type 2 diabetes mellitus with hyperglycemia, with long-term current use of insulin ([facility]/HCC) Benign essential HTN (CMS/HCC) MDD (major depressive disorder), recurrent episode, mild (HCC) ([facility]/HCC) Generalized anxiety disorder ([facility]/HCC) Generalized anxiety disorder Type 2 diabetes mellitus with hyperglycemia, with long-term current use of insulin ([facility])- Primary Benign essential HTN (CMS/HCC) ADD (attention deficit disorder) without hyperactivity Attention deficit disorder without mention of hyperactivity MDD (major depressive disorder), recurrent episode, mild (HCC) ([facility]/HCC) Generalized anxiety disorder ([facility]/HCC) Generalized anxiety disorder Type 2 diabetes mellitus with polyneuropathy ([facility]/HCC) Type II or unspecified type diabetes mellitus with neurological manifestations, not stated as uncontrolled Dysuria Breast cancer screening by mammogram Type 2 diabetes mellitus with hyperglycemia, with long-term current use of insulin ([facility])- Primary Benign essential HTN ([facility]/HCC) ADD (attention deficit disorder) without hyperactivity Attention deficit disorder without mention of hyperactivity MDD (major depressive disorder), recurrent episode, mild (HCC) ([facility]/HCC) Generalized anxiety disorder ([facility]/HCC) Generalized anxiety disorder Type 2 diabetes mellitus with polyneuropathy ([facility]/HCC) Type II or unspecified type diabetes mellitus with neurological manifestations, not stated as uncontrolled Other chronic pancreatitis Acute non-recurrent pansinusitis Medicare annual wellness visit, subsequent- Primary Type 2 diabetes mellitus with hyperglycemia, with long-term current use of insulin ([facility]) Benign essential HTN ([facility]/HCC) Dyslipidemia ([facility]) Other and unspecified hyperlipidemia Encounter for long-term (current) use of medications Encounter for long-term (current) use of other medications Abnormal TSH Other chronic pancreatitis Generalized anxiety disorder ([facility]) Generalized anxiety disorder Type 2 diabetes mellitus with hyperglycemia, with long-term current use of insulin ([facility])- Primary Benign essential HTN ([facility]) ADD (attention deficit disorder) without hyperactivity Attention deficit disorder without mention of hyperactivity MDD (major depressive disorder), recurrent episode, mild (HCC) ([facility]) Generalized anxiety disorder ([facility] Generalized anxiety disorder Type 2 diabetes mellitus with polyneuropathy ([facility]) Type II or unspecified type diabetes mellitus with neurological manifestations, not stated as uncontrolled Acute non-recurrent pansinusitis documented in this encounter [facility] HealthcareEvaluation note* Diagnosis Type 2 diabetes mellitus with hyperglycemia, with long-term current use of insulin (FORMERLY [facility])- Primary Benign essential HTN ADD (attention deficit disorder) without hyperactivity Attention deficit disorder without mention of hyperactivity MDD (major depressive disorder), recurrent episode, mild Generalized anxiety disorder Generalized anxiety disorder Mild intermittent asthma without complication ([facility]) Complex regional pain syndrome type 1, affecting unspecified site Mixed hyperlipidemia Mixed hyperlipidemia 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 (Z79.4) ADD (attention deficit disorder) without hyperactivity- Primary Attention deficit disorder without mention of hyperactivity Type 2 diabetes mellitus with hyperglycemia, with long-term current use of insulin (HCC) Benign essential HTN MDD (major depressive disorder), recurrent episode, mild Generalized anxiety disorder Generalized anxiety disorder Type 2 diabetes mellitus with hyperglycemia, with long-term current use of insulin ([facility])- Primary Benign essential HTN ADD (attention deficit disorder) without hyperactivity Attention deficit disorder without mention of hyperactivity MDD (major depressive disorder), recurrent episode, mild Generalized anxiety disorder Generalized anxiety disorder Type 2 diabetes mellitus with polyneuropathy ([facility]) Type II or unspecified type diabetes mellitus with neurological manifestations, not stated as uncontrolled Dysuria Breast cancer screening by mammogram Type 2 diabetes mellitus with hyperglycemia, with long-term current use of insulin ([facility])- Primary Benign essential HTN ADD (attention deficit [...] Type 2 diabetes mellitus with polyneuropathy ([facility]) Type II or unspecified type diabetes mellitus with neurological manifestations, not stated as uncontrolled Acute non-recurrent pansinusitis Trochanteric bursitis of both hips- Primary Nerve root and plexus disorder, unspecified documented in this encounter [facility]* Diagnosis Type 2 diabetes mellitus with hyperglycemia, with long-term current use of insulin (HCC)- Primary Benign essential HTN ADD (attention deficit disorder) without hyperactivity Attention deficit disorder without mention of hyperactivity MDD (major depressive disorder), recurrent episode, mild Generalized anxiety disorder Generalized anxiety disorder Mild intermittent asthma without complication ([facility]) Complex regional pain syndrome type 1, affecting unspecified site Mixed hyperlipidemia Mixed hyperlipidemia 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 (Z79.4) ADD (attention [...] and plexus disorders documented in this encounter [facility]Evaluation note* Diagnosis Type 2 diabetes mellitus [...] affecting unspecified site Mixed hyperlipidemia Mixed hyperlipidemia 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 (Z79.4) ADD (attention [...] General[facility] anxiety [facility] Intractable chronic migraine without aura and without status migrainosus- Primary Chronic migraine without aura, with intractable migraine, so stated, without mention of status migrainosus Chronic daily headache Headache [facility] Diagnosis Type 2 diabetes mellitus with hyperglycemia, with long-term current use of insulin (HCC)- Primary Benign essential HTN ADD (attention deficit disorder) without hyperactivity Attention deficit disorder without mention of hyperactivity MDD (major depressive disorder), recurrent episode, mild Generalized anxiety disorder Generalized anxiety disorder Mild intermittent asthma without complication ([facility]) Complex regional pain syndrome type 1, affecting unspecified site Mixed hyperlipidemia Mixed hyperlipidemia 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 (Z79.4) ADD (attention [...] Type 2 diabetes mellitus with polyneuropathy ([facility]) Type II or unspecified type diabetes mellitus with neurological manifestations, not stated as uncontrolled Other chronic pancreatitis ([facility]) Acute non-recurrent pansinusitis Medicare annual wellness visit, subsequent- Primary Type 2 diabetes mellitus with hyperglycemia, with long-term current use of insulin ([facility]) Benign essential HTN Dyslipidemia Other and unspecified hyperlipidemia Encounter for long-term (current) use of medications Encounter for long-term (current) use of other medications Abnormal TSH Other chronic pancreatitis ([facility]) Type 2 diabetes mellitus with hyperglycemia, with long-term current use of insulin (HCC)- Primary Benign essential HTN ADD (attention deficit disorder) without hyperactivity Attention deficit disorder without mention of hyperactivity MDD (major depressive disorder), recurrent episode, mild Generalized anxiety disorder Generalized anxiety disorder Type 2 diabetes mellitus with polyneuropathy ([facility]) Type II or unspecified type diabetes mellitus [...] disorder), recurrent episode, mild Generalized anxiety disorder Mild intermittent asthma without complication ([facility]) Complex regional pain syndrome type 1, affecting unspecified site Mixed hyperlipidemia 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 (Z79.4) ADD (attention deficit disorder) without hyperactivity- Primary Attention deficit disorder without mention of hyperactivity Type 2 diabetes mellitus with hyperglycemia, with long-term current use of insulin (HCC) Benign essential HTN MDD (major depressive disorder), recurrent episode, mild Generalized anxiety disorder Type 2 diabetes mellitus with hyperglycemia, with long-term current use of insulin (HCC)- Primary Benign essential HTN ADD (attention deficit disorder) without hyperactivity Attention deficit disorder without mention of hyperactivity MDD (major depressive disorder), recurrent episode, mild Generalized anxiety disorder Type 2 diabetes mellitus [...] disorder), recurrent episode, mild Generalized anxiety disorder Type 2 diabetes mellitus [...] disorder), recurrent episode, mild Generalized anxiety disorder Type 2 diabetes mellitus with polyneuropathy (HCC) Type II or unspecified type diabetes mellitus with neurological manifestations, not stated as uncontrolled Acute non-recurrent pansinusitis Trochanteric bursitis of both hips- Primary Other nerve root and plexus disorders documented in this encounter [facility] Narrative - Reported* Type Description Date Medical History diabetes mellitus Medical HistoryasthmaMedical HistoryAsthmatic BronchitisMedical Historyfibroids Medical Historymigraine headachesMedical HistoryARACHNOID CYSTS IN BRAINMedical HistoryOVARIAN CYSTSSurgical HistoryABLATIONSurgical HistoryCHOLECYSTECTOMY Hospitalization HistorySEE ABOVE SURGERY [facility] Other Hospital Discharge instructions Additional Instructions Avoid trauma to the surgical site.[facility] Work Phone: Reason for visit Narrative* Imaging (Routine) - Pending ReviewSpecialtyDiagnoses / ProceduresReferred By ContactReferred To ContactRadiology Diagnoses Pain Procedures FLUORO FOR SURGICAL PROCEDURES Jessee Billy MD [address] [place] [address] Phone: tel: fax: Referral IDStatusReasonStart DateExpiration DateVisits RequestedVisits [id number] Review/ [facility] Summary Purpose Family History No Family History Records Found Relationship Condition Age at Onset Recorded Date/T nehemias father Heart disease Unknown Ventricular fibrillationUnknownMalignant neoplasm of colonUnknownDiabetes mellitusUnknownNot SpecifiedHeart diseaseUnknownsisterDiabetes mellitusUnknown Relationship Condition Age at Onset Recorded Date/T nehemias father Malignant neoplasm of colon Unknown Diabetes mellitusUnknownVentricular fibrillationUnknownHeart diseaseUnknownNot SpecifiedDiabetes mellitusUnknownAtrial fibrillationUnknownsisterDiabetes mellitusUnknown Relationship Condition Age at Onset Recorded Date/T nehemias father Malignant neoplasm of colon Unknown Diabetes mellitusUnknownVentricular fibrillationUnknownHeart diseaseUnknownNot SpecifiedDiabetes mellitusUnknownAtrial fibrillationUnknownMalignant neoplasm of breastUnknownMalignant neoplasm of lungUnknownsisterDiabetes mellitusUnknown Relationship Condition Age at Onset Recorded Date/T nehemias father Malignant neoplasm of colon Unknown Diabetes mellitusUnknownVentricular fibrillationUnknownHeart diseaseUnknown DeceasedUnknownmotherDiabetes mellitusUnknownAtrial fibrillationUnknownMalignant neoplasm of breastUnknownMalignant neoplasm of lungUnknownsisterDiabetes mellitusUnknown Advance Directives No Advanced Directives Records Found Advance Directive Response Recorded Date/ Time Advance Directives No June 07, 2017 2:17pm Advance Directive Response Recorded Date/ Time Advance Directives No June 07, 2017 3:17pm Medications Administered Section Medication OrderMAR ActionAction DateDoseRateSite onabotulinum toxin type A 200 Units injection (BOTOX) 200 Units, OTHER, EVERY 3 MONTHS, First dose on Sat06/07/21 at 1730, Until Discontinued, This record documents the total dose provided to patient. See progress note for specific locations and amountsadministered. Given01/09/2022 3:24 PM TFF535 UrmbtSztse52/28/2022 3:26 PM MIF657 UnitsGiven 06/08/2021 2:49 PM GOX671 UnitsMedication OrderMAR ActionAction DateDoseRateSite onabotulinum toxin type A 200 Units injection (BOTOX) 200 Units, OTHER, EVERY 3 MONTHS, First dose on Sat06/07/21 at 1730, Until Discontinued, This record documents the total dose provided to patient. See progress note for specific locations and amountsadministered. Given04/17/2022 10:25 AM PGR769 XbgiyEdpot50/30/2022 3:24 PM NRG039 UnitsGiven 09/07/2021 3:26 PM VXZ720 UnitsMedication OrderMAR ActionAction DateDoseRateSite onabotulinum toxin type A 200 Units injection (BOTOX) 200 Units, OTHER, EVERY 3 MONTHS, First dose on Sat06/07/21 at 1730, Until Discontinued, This record documents the total dose provided to patient. See progress note for specific locations and amountsadministered. Given07/17/2022 10:19 AM ZCX276 DtmefHxzmf21/06/2022 10:25 AM SLC580 UnitsGiven 01/09/2022 3:24 PM THL585 UnitsMedication OrderMAR ActionAction DateDoseRateSite onabotulinum toxin type A 200 Units injection (BOTOX) 200 Units, INTRAMUSCULAR, ONCE, 1 dose, On Sat10/10/22 at 0700, This record documents the total dose provided to patient. See progress note for specific locations and amounts administered. Given10/10/2022 9:17 AM HJQ200 UnitsOtherMedication OrderMAR ActionAction Date DoseRateSite onabotulinum toxin type A 200 Units injection (BOTOX) 200 Units, INTRAMUSCULAR, ONCE, 1 dose, On Sat01/02/23 at 0800, This record documents the total dose provided to patient. See progress note for specific locations and amounts administered. Given01/02/2023 9:04 AM [id number] UnitsOther Chief Complaint and Reason for Visit Chief Complaint Back Mass Chief Complaint Back Mass Back Mass Chief Complaint hx of colon polyps Additional Source Comments INFORMATION SOURCE (unrecogn ized section and content) DATE CREATED AUTHOR 01/27/2020 [facility] DATE CREATED AUTHOR AUTHOR'S ORGANIZ ATION 03/25/2021 [facility] DATE CREATED AUTHOR AUTHOR'S ORGANIZ ATION 09/02/2022 [facility] DATE CREATED AUTHOR AUTHOR'S ORGANIZ ATION 03/10/2024 [facility] DATE CREATED AUTHOR AUTHOR'S ORGANIZ ATION 10/10/2024 [facility] DATE CREATED AUTHOR AUTHOR'S ORGANIZ ATION 02/19/2025 [facility] DATE CREATED AUTHOR AUTHOR'S ORGANIZ ATION 03/10/2025 [facility] DATE CREATED AUTHOR AUTHOR'S ORGANIZ ATION 03/15/2025 [facility] DATE CREATED AUTHOR AUTHOR'S ORGANIZ ATION 03/24/2025 [facility] Source Comments (unrecognize d section and content) In the event this informatio n is protected by the Federal Confidentiality of Alcohol and Drug Abuse Patient Records regulations: The Federal rules restrict any use of the information to criminally investigate or prosecute any alcohol or drug abuse patient.[facility] the event this information is protected by the Federal Confidentiality of Alcohol and Drug Abuse Patient Records regulations: The Federal rules restrict any use of the information to criminally investigate or prosecute any alcohol or drug abuse patient.[facility] the event this information is protected by the Federal Confidentiality of Alcohol and Drug Abuse Patient Records regulations: The Federal rules restrict any use of the information to criminally investigate or prosecute any alcohol or drug abuse patient.[facility] Hospital[facility] the event this information is protected by the Federal Confidentiality of Alcohol and Drug Abuse Patient Records regulations: The Federal rules restrict any use of the information to criminally investigate or prosecute any alcohol or drug abuse patient.[facility] HospitalIn the event this information is protected by the Federal Confidentiality of Alcohol and Drug Abuse Patient Records regulations: The Federal rules restrict any use of the information to criminally investigate or prosecute any alcohol or drug abuse patient.[facility] HospitalIn the event this information is protected by the Federal Confidentiality of Alcohol and Drug Abuse Patient Records regulations: The Federal rules restrict any use of the information to criminally investigate or prosecute any alcohol or drug abuse patient.[facility] HospitalIn the event this information is protected by the Federal Confidentiality of Alcohol and Drug Abuse Patient Records regulations: The Federal rules restrict any use of the information to criminally investigate or prosecute any alcohol or drug abuse patient.[facility] HospitalIn the event this information is protected by the Federal Confidentiality of Alcohol and Drug Abuse Patient Records regulations: The Federal rules restrict any use of the information to criminally investigate or prosecute any alcohol or drug abuse patient.[facility] HospitalIn the event this information is protected by the Federal Confidentiality of Alcohol and Drug Abuse Patient Records regulations: The Federal rules restrict any use of the information to criminally investigate or prosecute any alcohol or drug abuse patient.[facility] HospitalIn the event this information is protected by the Federal Confidentiality of Alcohol and Drug Abuse Patient Records regulations: The Federal rules restrict any use of the information to criminally investigate or prosecute any alcohol or drug abuse patient.[facility] HospitalIn the event this information is protected by the Federal Confidentiality of Alcohol and Drug Abuse Patient Records regulations: The Federal rules restrict any use of the information to criminally investigate or prosecute any alcohol or drug abuse patient.[facility] HospitalIn the event this information is protected by the Federal Confidentiality of Alcohol and Drug Abuse Patient Records regulations: The Federal rules restrict any use of the information to criminally investigate or prosecute any alcohol or drug abuse patient.[facility] HospitalIn the event this information is protected by the Federal Confidentiality of Alcohol and Drug Abuse Patient Records regulations: The Federal rules restrict any use of the information to criminally investigate or prosecute any alcohol or drug abuse patient.[facility] HospitalIn the event this information is protected by the Federal Confidentiality of Alcohol and Drug Abuse Patient Records regulations: The Federal rules restrict any use of the information to criminally investigate or prosecute any alcohol or drug abuse patient.[facility] HospitalIn the event this information is protected by the Federal Confidentiality of Alcohol and Drug Abuse Patient Records regulations: The Federal rules restrict any use of the information to criminally investigate or prosecute any alcohol or drug abuse patient.[facility] HospitalIn the event this information is protected by the Federal Confidentiality of Alcohol and Drug Abuse Patient Records regulations: The Federal rules restrict any use of the information to criminally investigate or prosecute any alcohol or drug abuse patient.[facility] HospitalIn the event this information is protected by the Federal Confidentiality of Alcohol and Drug Abuse Patient Records regulations: The Federal rules restrict any use of the information to criminally investigate or prosecute any alcohol or drug abuse patient.[facility] HospitalIn the event this information is protected by the Federal Confidentiality of Alcohol and Drug Abuse Patient Records regulations: The Federal rules restrict any use of the information to criminally investigate or prosecute any alcohol or drug abuse patient.[facility] HospitalIn the event this information is protected by the Federal Confidentiality of Alcohol and Drug Abuse Patient Records regulations: The Federal rules restrict any use of the information to criminally investigate or prosecute any alcohol or drug abuse patient.[facility] HospitalIn the event this information is protected by the Federal Confidentiality of Alcohol and Drug Abuse Patient Records regulations: The Federal rules restrict any use of the information to criminally investigate or prosecute any alcohol or drug abuse patient.[facility] HospitalIn the event this information is protected by the Federal Confidentiality of Alcohol and Drug Abuse Patient Records regulations: The Federal rules restrict any use of the information to criminally investigate or prosecute any alcohol or drug abuse patient.[facility] HospitalIn the event this information is protected by the Federal Confidentiality of Alcohol and Drug Abuse Patient Records regulations: The Federal rules restrict any use of the information to criminally investigate or prosecute any alcohol or drug abuse patient.[facility] Reason for Visit (unrecogniz ed section and content) ReasonCommentsFollow UpBotoxSpecialtyDiagnoses / ProceduresReferred By Contact Referred To ContactHEADACHE Diagnoses Chronic migraine without aura, intractable, without status migrainosus Procedures BOTULINUM TOXIN A PER 1 UNIT CHEMODERVATE FACIAL/TRIGEM/CERV MUSC MIGRAINE Renewal due 06/29/2024 Botox 200 units every 12 weeks for 1 year through [facility] buy and bill. Preempt protocol J0585 Procedure -67269 chemodervate facial/trigem/cerv musc migraine Kinga Mendes, FORM GRADER.NURSING EDUCATOR [address] [place] [address] Phone: tel: fax: Neurology [address] [place] [address] Phone: tel: fax: Referral IDStatusReasonStart DateExpiration DateVisits RequestedVisits [id number]/18/20259/[id number] Injection SpecialtyDiagnoses / ProceduresReferred By ContactReferred To ContactHEADACHE Diagnoses Chronic migraine without aura, intractable, without status migrainosus Procedures BOTULINUM TOXIN A PER 1 UNIT CHEMODERVATE FACIAL/TRIGEM/CERV MUSC MIGRAINE Renewal due 11/07/2021 Botox 200 units every 12 weeks for 1 year through [facility] buy and bill Preempt protocol J0585 Procedure -42179 chemodervate facial/trigem/cerv musc migraine Kinga Mendes, FORM GRADER.NURSING EDUCATOR [address] [place] [address] Neur Headache [address] [place] [address] Referral IDStatusReasonStart DateExpiration DateVisits RequestedVisits [id number]/17/202212/17/[id number]xy Request ReasonCommentsMigraineReferral IDStatusReasonStart DateExpiration DateVisits RequestedVisits [id number]/17/202212/17/345655Hypmwznjk Diagnoses / ProceduresReferred By ContactReferred To ContactHEADACHE Diagnoses Chronic migraine without aura, intractable, without status migrainosus Procedures BOTULINUM TOXIN A PER 1 UNIT CHEMODERVATE FACIAL/TRIGEM/CERV MUSC MIGRAINE Renewal - next visit expected on 10/09/22 Botox 200 units every 12 weeks for 1 year through [facility] buy and bill Preempt protocol J0585 Procedure -08967 chemodervate facial/trigem/cerv musc migraine Kinga Mendes, RASHAD.NURSING EDUCATOR [address] [id number] Neur Headache Main [address] [place] [address] Referral IDStatusReasonStart DateExpiration DateVisits RequestedVisits [id number] for Response/[id number] InjectionReasonCommentsAppointmentReasonCommentsFollow-upMed mgmtReasonOnset DateCommentsMed Qvssej704ReasonCommentsPatient QuestionReasonComments Follow-upReasonCommentsFormsBWC formsReasonCommentsFormsBwc (Worker's Comp) C9 Botox formReasonCommentsMed RefillReferral IDStatusReasonStart DateExpiration DateVisits RequestedVisits [id number] Financial Clearance Not Required [id number]zebomvDuohjgifnIlqhexdzk / ProceduresReferred By ContactReferred To ContactNeurology / HEADACHE Diagnoses Non-DHE Infusion Day #1 Procedures INFUSION HEADACHE Kinga Mendes, FORM GRADER.NURSING EDUCATOR [address] [place] [address] Neur Headache [address] [id number] Referral IDStatusReasonStart DateExpiration DateVisits RequestedVisits [id number]/27/20242/[id number] SpecialtyDiagnoses / ProceduresReferred By ContactReferred To ContactNeurology / HEADACHE Diagnoses Follow-up exam Procedures OFFICE/OUTPATIENT ESTABLISHED HIGH MDM 40 MIN EST NI PATIENT Self Marilynn Lua PA-C [address] [place] [address] Referral IDStatusReasonStart DateExpiration DateVisits RequestedVisits [id number]/29/202411/[id number]-uf5v Flank PainbilateralSinusitisCongestionReasonCommentsMedicare Annual Wellness Visit SubsequentwellnessReasonCommentsBack PainRight MBBSpecialtyDiagnoses / ProceduresReferred By ContactReferred To ContactPain Management Diagnoses PRECERT- RIGHT MBB L345 #1 Procedures INJ DX/THER AGNT PARAVERT FACET JOINT, LUMBAR/SAC, 1ST LEVEL Jessee Billy MD [address] [place] [id number] Phone: tel: fax: Referral IDStatusReasonStart DateExpiration DateVisits RequestedVisits [id number]/8/202511/[id number]-iq5eZiyyqxt Left ear sjybRheaohNkbltxsmGbgccu4HkshgbWrkbrjlpDvgrqrouaf Care Teams (unrecognized sec tion and content) Team Status: Active Member Role Status Dates Josh Ochoa MD Primary Care Provider Active Team Status: Inactive Member Role Status Dates Josh Ochoa MD Primary Care Provider Active Lee Chowdary MDAttending ProviderActiveTeam MemberRelationshipSpecialtyStart DateEnd Date Josh Ochoa PCP - Generalmi Practice08/01/16 Deja Martins CNP [facility]09/17/16Team MemberRelationshipSpecialtyStart DateEnd Date Josh Ochoa PCP - [facility] Practice08/01/16 Deja Martins CNP [facility]09/17/16 Team Status: Inactive Member Role Status Dates Josh Ochoa MD Primary Care Provider Active Ariadne Barajas ProviderActiveTeam MemberRelationshipSpecialtyStart DateEnd Date Josh Ochoa PCP - GeneralFamily Medicine08/01/16 Deja Martins CNP [facility]09/17/16Team MemberRelationshipSpecialtyStart DateEnd Date Josh Ochoa PCP - GeneralFamily Medicine08/01/16 Deja Martins NURSING EDUCATOR Family [facility]09/17/16Team MemberRelationshipSpecialtyStart DateEnd Date Josh Ochoa PCP - Generalmi Medicine08/01/16 Deja Martins CNP Family Medicine09/17/16Team MemberRelationshipSpecialtyStart DateEnd Date Josh Ochoa PCP - GeneralFamily Medicine08/01/16 Deja Martins CNP Family Medicine09/17/16Team MemberRelationshipSpecialtyStart DateEnd Date Josh Ochoa PCP - GeneralFamily Medicine08/01/16 Deja aMrtins CNP Family Medicine09/17/16Team MemberRelationshipSpecialtyStart DateEnd Date Josh Ochoa PCP - GeneralFamily Medicine08/01/16 Deja Martins CNP Family Medicine09/17/16Team MemberRelationshipSpecialtyStart DateEnd Date Josh Ochoa MD [address] [place] [address] PCP - GeneralFamily Medicine06/17/23Team MemberRelationshipSpecialtyStart DateEnd Date Josh Ochoa MD [address] [place] [address] PCP - GeneralFamily Medicine06/17/23Team MemberRelationshipSpecialtyStart DateEnd Date Josh Ochoa MD [address] [place] [address] PCP - GeneralFamily Medicine06/17/23Team MemberRelationshipSpecialtyStart DateEnd Date Josh Ochoa MD [address] [place] [address] PCP - [facility] Medicine06/17/23Team MemberRelationshipSpecialtyStart DateEnd Date [facility]08/01/16 Deja Martins CNP Family Medicine09/17/16Team MemberRelationshipSpecialtyStart DateEnd Date Josh Ochoa MD [address] [place] [address] PCP - [facility] Medicine06/17/23 Josh Ochoa MD [address] [place] [address] PCP - [facility]02/10/23Team MemberRelationshipSpecialtyStart DateEnd Date Josh Ochoa MD [address] [place] [address] PCP - [facility]06/17/23 Josh Ochoa MD [address] [place] [address] PCP - [employer]02/10/23Team MemberRelationshipSpecialtyStart DateEnd Date Josh Ochoa MD [address] [place] [address] PCP - Generalmi Medicine06/17/23 Josh Ochoa MD [address] [place] [address] PCP - [facility]02/10/23Team MemberRelationshipSpecialtyStart DateEnd Date Josh Ochoa MD [address] [place] [address] PCP - [facility] Medicine06/17/23 Josh Ochoa MD [address] [place] [address] PCP - [facility]02/10/23Team MemberRelationshipSpecialtyStart DateEnd Date Josh Ochoa MD [facility]08/01/16 Deja Martins CNP [facility]09/17/16Team MemberRelationshipSpecialtyStart DateEnd Date Josh Ochoa MD PCP - [facility]08/01/16 Deja Martins CNP [facility]09/17/16 Team Status: Inactive Member Role Status Dates Josh Ochoa MD Primary Care Provider Active S tart: January 08, 2024 End: January 08, 2024Imad JANES Kumartttyler ProviderActiveStart: January 08, 2024 End: January 08, 2024Team MemberRelationshipSpecialtyStart DateEnd Date Josh Ochoa MD [address] [place] [address] PCP - Generalmily Medicine06/17/23 Josh Ochoa MD [address] [place] [address] PCP - [employer]02/10/23Team MemberRelationshipSpecialtyStart DateEnd Date Josh Ochoa MD [address] [place] [address] PCP - [facility]06/17/23 Josh Ochoa MD [address] [place] [address] PCP - [employer]02/10/23Team MemberRelationshipSpecialtyStart DateEnd Date Josh Ochoa MD [address] [place] [address] [facility]06/17/23 Josh Ochoa MD [address] [place] [address] PCP - [employer]02/10/23Team MemberRelationshipSpecialtyStart DateEnd Date Josh Ochoa MD [address] [place] [address] [facility] - [facility]06/17/23 Josh Ochoa MD [address] [place] [address] PCP - [employer]02/10/23Team MemberRelationshipSpecialtyStart DateEnd Date Josh Ochoa MD PCP - GeneralFamily Medicine08/01/16 Deja Martins CNP Family Medicine09/17/16Team MemberRelationshipSpecialtyStart DateEnd Date Josh Ochoa MD PCP - GeneralFamily Medicine08/01/16 Deja Martins CNP Family Medicine09/17/16Team MemberRelationshipSpecialtyStart DateEnd Date Josh Ochoa MD PCP - GeneralFamily Medicine08/01/16 Deja Martins CNP Family Medicine09/17/16Team MemberRelationshipSpecialtyStart DateEnd Date Josh Ochoa MD PCP - GeneralFamily Medicine08/01/16 Deja Martins CNP Family Medicine09/17/16Team MemberRelationshipSpecialtyStart DateEnd Date Josh Ochoa MD PCP - GeneralFami Medicine08/01/16 Deja Martins CNP Family Medicine09/17/16Team MemberRelationshipSpecialtyStart DateEnd Date Josh Ochoa MD [address] [place] [address] [facility] - [facility]06/17/23 Josh Ochoa MD [address] [place] [address] PCP - [employer]02/10/23Team MemberRelationshipSpecialtyStart DateEnd Date Josh Ochoa MD [address] [place] [address] PCP - [facility]06/17/23 Josh Ochoa MD [address] [place] [address] PCP - [employer]02/10/23Team MemberRelationshipSpecialtyStart DateEnd Date Josh Ochoa MD [address] [place] [address] [facility]CP - [facility]06/17/23 Josh Ochoa MD [address] [place] [address] PCP - [employer]02/10/23Team MemberRelationshipSpecialtyStart DateEnd Date Josh Ochoa MD [address] [place] [address] PCP - Generalmily Medicine06/17/23 Josh Ochoa MD [address] [place] [address] PCP - [employer]02/10/23Team MemberRelationshipSpecialtyStart DateEnd Date Josh Ochoa MD [address] [place] [address] [facility] - [facility]06/17/23 Josh Ochoa MD [address] [place] [address] PCP - [employer]02/10/23Team MemberRelationshipSpecialtyStart DateEnd Date Josh Ochoa MD [address] [place] [address] PCP - [facility] Medicine06/17/23 Josh Ochoa MD [address] [place] [address] PCP - [employer]02/10/23Team MemberRelationshipSpecialtyStart DateEnd Date Josh Ochoa MD [address] [place] [address] [facility]CP - [facility]06/17/23 Josh Ochoa MD [address] [place] [address] PCP - [employer]02/10/23Team MemberRelationshipSpecialtyStart DateEnd Date Josh Ochoa MD [address] [place] [address] PCP - [facility] Medicine06/17/23 Josh Ochoa MD [address] [place] [address] PCP - [employer]02/10/23 Dc Jackson, [facility] [address] [place] [address] Social [facility]05/26/24Team MemberRelationshipSpecialtyStart Date End Date Josh Ochoa MD [address] [place] [address] PCP - [facility]06/17/23 Josh Ochoa MD [address] [place] [address] PCP - [facility]02/10/23 Dc Jackson, [facility] [address] [place] [address] Social [facility]En[facility]05/26/24Team MemberRelationshipSpecialtyStart Date End Date Josh Ochoa MD [address] [place] [address] PCP - [facility] Medicine06/17/23 Jsoh Ochoa MD [address] [place] [address] PCP - [facility]02/10/23 Dc Jackson, [facility] [address] [place] [address] Social Workerhavioral Health05/26/24Team MemberRelationshipSpecialtyStart Date End Date Josh Ochoa MD [address] [place] [address] PCP - [facility] Medicine06/17/23 Josh Ochoa MD [address] [place] [address] [facility] - [facility]02/10/23 Dc Jackson, [facility] [address] [place] [address] Social [facility]05/26/24Te MemberRelationshipSpecialtyStart Date End Date Josh Ochoa MD [address] [place] [address] [facility] - [facility]06/17/23 Josh Ochoa MD [address] [place] [address] [facility] - t02/10/23 Dc Jackosn, [facility] [address] [place] [address] Social Workerhavioral Health05/26/24Team MemberRelationshipSpecialtyStart Date End Date Josh Ochoa MD [address] [place] [address] PCP - GeneralFamily Medicine06/17/23 Josh Ochoa MD [address] [place] [address] PCP - [employer]02/10/23 Dc Jackson, [facility] [address] [place] [address] Social Workerhavioral Health05/26/24Team MemberRelationshipSpecialtyStart Date End Date Josh Ochoa MD [address] [place] [address] PCP - Generalmily Medicine06/17/23 Josh Ochoa MD [address] [place] [address] PCP - [employer]02/10/23 Dc Jackson, [facility] [address] [place] [address] Social Workerhavioral Health05/26/24Team MemberRelationshipSpecialtyStart Date End Date Josh Ochoa MD [address] [place] [address] PCP - GeneralFamily Medicine06/17/23 Josh Ochoa MD [address] [place] [address] PCP - [facility]02/10/23 Dc Jackson, [facility] [address] [place] [address] Social Workerhavioral Health05/26/24Te MemberRelationshipSpecialtyStart Date End Date Josh Ochoa MD [address] [place] [address] PCP - [facility] Medicine06/17/23 Josh Ochoa MD [address] [place] [address] PCP - [facility]02/10/23 Dc Jackson, [facility] [address] [place] [address] Social [facility]05/26/24Te MemberRelationshipSpecialtyStart Date End Date Josh Ochoa MD [address] [place] [address] PCP - [facility]06/17/23 Josh Ochoa MD [address] [place] [address] [facility] - [facility]02/10/23 Dc Jackson, [facility] [address] [place] [address] Social [facility]05/26/24Team MemberRelationshipSpecialtyStart Date End Date Josh Ochoa MD [address] [place] [address] PCP - [facility] Medicine06/17/23 Josh Ochoa MD [address] [place] [address] PCP - [facility]02/10/23 Dc Jackson, [facility] [address] [place] [address] [facility]05/26/24Team MemberRelationshipSpecialtyStart Date End Date Josh Ochoa MD PCP - [facility] Medicine08/01/16 Deja Martins CNP Family Medicine09/17/16Team MemberRelationshipSpecialtyStart DateEnd Date Josh Ochoa MD [address] [place] [address] PCP - [facility]06/17/23 Josh Ochoa MD [address] [place] [address] PCP - [facility]02/10/23 Dc Jackson, [facility] [address] [place], [place] [address] Social WorkerBehavioral Health05/26/24Team MemberRelationshipSpecialtyStart Date End Date Josh Ochoa MD [address] [place] [address] PCP - GeneralFamily Medicine09/10/24Team MemberRelationshipSpecialtyStart DateEnd Date Josh Ochoa MD [address] [place] [address] PCP - GeneralFamily Medicine09/10/24Team MemberRelationshipSpecialtyStart DateEnd Date Josh Ochoa MD [address] [place] [address] PCP - GeneralFamily Medicine06/17/23 Josh Ochoa MD [address] [place] [address] PCP - [employer]02/10/23 [facility] [address] [facility] [address] [place] [address] Social WorkerBehavioral Health05/26/24Team MemberRelationshipSpecialtyStart Date End Date Josh Ochoa MD [address] [place] [address] PCP - GeneralFamily Medicine06/17/23 Josh Ochoa MD [address] [place] [address] PCP - [employer]02/10/23 Dc Jackson, [facility] [address] [place] [address] [facility]05/26/24Team MemberRelationshipSpecialtyStart Date End Date Josh Ochoa MD [address] [place] [address] PCP - GeneralFamily Medicine06/17/23 Josh Ochoa MD [address] [place] [address] PCP - [employer]/06/04 [facility] [address] [place] [address] [facility]05/26/24Team MemberRelationshipSpecialtyStart Date End Date Josh Ochoa MD [address] [place] [address] PCP - GeneralFamily Medicine09/10/24Team MemberRelationshipSpecialtyStart DateEnd Date Josh Ochoa MD [address] [place] [address] PCP - GeneralFamily Medicine09/10/24Team MemberRelationshipSpecialtyStart DateEnd Date Josh Ochoa MD [address] [place] [address] PCP - GeneralFamily Medicine06/17/23 Josh Ochoa MD [address] [place] [address] [facility] - [facility]02/10/23 Dc Jackson, [facility] [address] [place] [address] Social [facility]05/26/24Team MemberRelationshipSpecialtyStart Date End Date Josh Ochoa MD [address] [place] [address] [facility]06/17/23 Josh Ochoa MD [address] [place] [address] [facility] - [facility]02/10/23 Dc Jackson, [facility] [address] [place] [address] [facility]05/26/24Te MemberRelationshipSpecialtyStart Date End Date Josh Ochoa MD [address] [place] [address] [facility] - [facility]06/17/23 Josh Ochoa MD [address] [place] [address] [facility] - [facility]02/10/23 Dc Jackson, [facility] [address] [place] [address] Social Workerhavioral Health05/26/24Team MemberRelationshipSpecialtyStart Date End Date Josh Ochoa MD [address] [place] [address] PCP - GeneralFamily Medicine06/17/23 Josh Ochoa MD [address] [place] [address] PCP - [employer]02/10/23 Dc Jackson, [facility] [address] [place] [address] Social [facility]05/26/24Team MemberRelationshipSpecialtyStart Date End Date Josh Ochoa MD [address] [place] [address] PCP - Generalmily Medicine06/17/23 Josh Ochoa MD [address] [place] [address] PCP - [facility]02/10/23 Dc Jackson, [facility] [address] [place] [address] Social Workerhavioral Health05/26/24Team MemberRelationshipSpecialtyStart Date End Date Josh Ochoa MD [address] [place] [address] PCP - Generalmily Medicine06/17/23 Josh Ochoa MD [address] [place] [address] [facility] - [facility]02/10/23 Dc Jackson, [facility] [address] [place] [address] Social [facility]05/26/24Team MemberRelationshipSpecialtyStart Date End Date Josh Ochoa MD [address] [place] [address] PCP - [facility]06/17/23 Josh Ochoa MD [address] [place] [address] [facility] - [facility]02/10/23 Dc Jackson, [facility] [address] [place] [address] [facility]05/26/24Te MemberRelationshipSpecialtyStart Date End Date Josh Ochoa MD [address] [place] [address] [facility] - [facility]06/17/23 Josh Ochoa MD [address] [place] [address] [facility] - [facility]02/10/23 Dc Jackson, [facility] [address] [place] [address] [facility]05/26/24Team MemberRelationshipSpecialtyStart Date End Date Josh Ochoa MD [address] [place] [address] PCP - GeneralFamily Medicine06/17/23 Josh Ochoa MD [address] [place] [address] PCP - [employer]02/10/23 Dc Jackson, [facility] [address] [place] [address] [facility]05/26/24Team MemberRelationshipSpecialtyStart Date End Date Josh Ochoa MD PCP - GeneralFamily Medicine08/01/16 Deja Martins CNP Family Medicine09/17/16Team MemberRelationshipSpecialtyStart DateEnd Date Josh Ochoa MD PCP - Generalmily Medicine06/17/23 Josh Ochoa MD [address] [place] [address] PCP - [employer]02/10/23 Dc Jackson, [facility] [address] [place] [address] [facility]05/26/24Team MemberRelationshipSpecialtyStart Date End Date Josh Ochoa MD PCP - GeneralFamily Medicine06/17/23 Josh Ochoa MD [address] [place] [place] [address] PCP - [employer]02/10/23 Dc Jackson, [facility] [address] [place] [address] Social WorkerBehavioral Health05/26/24 Goals (unrecognized section and content) Goals may [...] BE BASED ON THE PRIMARY CLINICAL RECORDS. [employer] [facility]. provides no warranty or guarantee of the accuracy or completeness of information in this document.
== END 2025-05-12 12:48 | disposition home or self-care (01) ==
LOC: MM 11:21
PROVIDERS: PCP Internal Medicine Cardiovascular Disease; Visit Provider Internal Medicine
DX: Z51.81 Encounter for therapeutic drug level monitoring (principal); Z79.01 Long term (current) use of anticoagulants; I48.0 Paroxysmal atrial fibrillation
CPT/HCPCS: 85610; G0463